=== PATIENT | female | born 1940 | race Caucasian/White ===

== ENCOUNTER 2022-04-25 10:00 | Outpatient (CLI) | payer MEDICARE, SELFPAY ==
--- NOTE | 2022-04-25 13:29 | W.ANESCHARGE ---
Anesthesia Charges Start Date/Time Anesthesia Start Date: 04/25/22 Anesthesia Start Time: 11:07 Stop Date/Time Anesthesia Stop Date: 04/25/22 Anesthesia Stop Time: 12:24 Summary Emergency: No Extremes of Age: Over 72-CPT 38534
--- NOTE | 2022-04-25 14:24 | W.ANESCHARGE ---
Anesthesia Charges Start Date/Time Anesthesia Start Date: 04/25/22 Anesthesia Start Time: 11:07 Stop Date/Time Anesthesia Stop Date: 04/25/22 Anesthesia Stop Time: 12:24 Summary Emergency: No Extremes of Age: Over 72-CPT 99014
== END 2022-04-25 10:01 | disposition home or self-care (01) ==
LOC: OP CLINIC 10:03
PROVIDERS: PCP Family Medicine; Visit Provider Surgery
DX: K92.2 Gastrointestinal hemorrhage, unspecified (principal); K31.7 Polyp of stomach and duodenum; K63.5 Polyp of colon; R19.5 Other fecal abnormalities; K57.30 Diverticulosis of large intestine without perforation or abscess without bleeding
CPT/HCPCS: 43239; 45381; 45385; 813; 88305; 99100; J2704; J3490

== ENCOUNTER 2022-05-24 21:00 | Outpatient (CLI) | payer MEDICARE, SELFPAY | END 2022-05-24 21:01 | disposition home or self-care (01) | LOC: SLEEP 11-14 09:55 | PROVIDERS: PCP Family Medicine; Visit Provider Nurse Practitioner | DX: G47.33 Obstructive sleep apnea (adult) (pediatric) (principal) | CPT/HCPCS: 95810 ==

== ENCOUNTER 2023-02-19 10:45 | Outpatient (RCR) | payer MEDICARE, SELFPAY | END 2023-05-29 15:32 | disposition home or self-care (01) | PROVIDERS: PCP Family Medicine; Visit Provider Psychiatry & Neurology Neurology | DX: M54.2 Cervicalgia (principal); G44.209 Tension-type headache, unspecified, not intractable; Z51.89 Encounter for other specified aftercare | CPT/HCPCS: 97035; 97110; 97140; 97161 ==

== ENCOUNTER 2023-07-02 09:30 | Emergency (ER) | payer MEDICARE, SELFPAY ==
[2023-07-02 09:35] VITALS: BP 164/75; PULSE 75; RESP 18; TEMP 36.3; O2SAT 97; BMI 30.7
--- NOTE | 2023-07-02 09:44 | ED.GENADULT ---
HPI - General Adult General Time Seen by Provider: 09:44 Date Seen: 07/02/23 Chief complaint: Extremity Pain/Injury, Lower Stated complaint: left foot swollen Time Seen by Provider: 07/02/23 09:31 Source: patient, RN notes reviewed and old records reviewed Mode of arrival: wheelchair Limitations: no limitations History of Present Illness HPI narrative: This 83-year-old female is coming in with left foot pain and swelling. She points to the distal medial foot. She denies any trauma but did have a recent pedicure. She awoke with symptoms yesterday, it hurts to walk on, it there is pain baseline. No fevers, no systemic symptoms of illness. She has had gout a few times before, looking in our records she was last seen in February with probable gout. I did briefly see suggestion of renal insufficiency in that note. Patient does not have any further hydrocodone, has used that in the past successfully for pain management. She does have underlying diabetes. Related Data Home Medications Medication Instructions Recorded Confirmed amlodipine 2.5 mg tablet 2.5 mg PO DAILY 03/20/23 07/02/23 carvedilol 12.5 mg tablet 12.5 mg PO BID 03/20/23 07/02/23 chlorthalidone 25 mg tablet 25 mg PO DAILY 03/20/23 07/02/23 cyanocobalamin (vitamin B-12) 1,000 mcg PO DAILY 03/20/23 07/02/23 1,000 mcg tablet ferrous sulfate 325 mg (65 mg 325 mg PO BID 03/20/23 07/02/23 iron) tablet (FeroSul) losartan 100 mg tablet 100 mg PO DAILY 03/20/23 07/02/23 metformin 1,000 mg tablet 1,000 mg PO BID 03/20/23 07/02/23 omeprazole 20 mg capsule,delayed 20 mg PO BID 03/20/23 07/02/23 release rosuvastatin 10 mg tablet 10 mg PO QPM 03/20/23 07/02/23 venlafaxine 150 mg 50 mg PO DAILY 03/20/23 07/02/23 capsule,extended release 24 hr venlafaxine 75 mg capsule,extended 50 mg PO DAILY 03/20/23 07/02/23 release 24 hr Previous Rx's Medication Instructions Recorded prednisone 20 mg tablet 20 mg PO BID #10 tabs 03/20/23 hydrocodone 5 mg-acetaminophen 325 1 tab PO Q6H PRN pain #10 tabs 07/02/23 mg tablet prednisone 20 mg tablet 20 mg PO BID #10 tabs 07/02/23 Allergies Allergy/AdvReac Type Severity Reaction Status Date / Time morphine Allergy Rash Verified 07/02/23 09:39 silicone Allergy Rash Verified 07/02/23 09:39 topiramate [From Topamax] Allergy Hallucinati Verified 07/02/23 09:39 ng Review of Systems Narrative: As per HPI. PFSH PFSH Social History Smoking Status: Unknown if ever smoked How often do you have a drink containing alcohol: monthly or less AUDIT-C Alcohol total score: 1 Non-prescribed substance use: denies use service: No Exam Const: Vital Signs, click to edit/add: Vital Signs - 24 hr 07/02/23 09:35 Temperature 97.4 F L Pulse Rate [Right Pulse Oximeter] 75 Respiratory Rate 18 Blood Pressure [Ri ght Upper Arm] 164/75 H Pulse Oximetry 97 Oxygen Delivery Me thod Room Air Very pleasant 83-year-old female that is alert interactive no apparent distress. Speech normal. CV regular rate and rhythm, no murmur. Lungs clear anteriorly. Her left foot is mildly pink, definitely warm, has pain emanating definitively from the 1st metatarsal-phalangeal joint. She is painful with movement of this joint. There is some pain that does extend out into the soft tissues but the 1st metatarsophalangeal joint seems to be where this pain is emanating from on my examination. I see no open wounds, there are no nail fold changes that would suggest any infection. Documenting provider has reviewed patient's vital signs: yes Course Course Hospital Course: Have reviewed with patient that this is a classic joint for gout. 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 She needs to watch for changing symptoms or symptoms that are not resolving with this treatment, would suggest that gout might not be the correct diagnosis if this is the case. She will watch for worsening swelling, pain or development of fever. I really do feel that this is classic gout however. Vital Signs Vital signs: Initial Vital Signs Temperature 97.4 F L 07/02/23 09:35 Temperature Source Temporal Artery Scan 07/02/23 09:35 Pulse Rate 75 07/02/23 09:35 Respiratory Rate 18 07/02/23 09:35 Blood Pressure 164/75 H 07/02/23 09:35 Blood Pressure Mean 104 07/02/23 09:35 Blood Pressure Position Sitting 07/02/23 09:35 Pulse Oximetry 97 07/02/23 09:35 Oxygen Delivery Method Room Air 07/02/23 09:35 Vital Signs Temperature 97.4 F L 07/02/23 09:35 Pulse Rate 75 07/02/23 09:35 Respiratory Rate 18 07/02/23 09:35 Blood Pressure 164/75 H 07/02/23 09:35 Pulse Oximetry 97 07/02/23 09:35 Oxygen Delivery Method Room Air 07/02/23 09:35 Temperature 97.4 F L 07/02/23 09:35 Pulse Rate 75 07/02/23 09:35 Respiratory Rate 18 07/02/23 09:35 Blood Pressure 164/75 H 07/02/23 09:35 Pulse Oximetry 97 07/02/23 09:35 Oxygen Delivery Method Room Air 07/02/23 09:35 Discharge Plan Discharge Clinical Impression: Gout attack Patient Disposition: Home, Self-Care Condition: Stable Instructions: Low Purine Diet (ED), Gout (ED) Additional Instructions: Start prednisone and take as prescribed, take with food. Know that this will temporarily increase your sugars. Ice, elevate this foot as much as able to next few days to help decrease pain and swelling. Can use pain medication as prescribed, know that this is a narcotic. May need to use Miralax and/or senna while on it to prevent narcotic associated constipation. Need to schedule follow up in clinic with primary provider to review gout and consider getting on preventative medication. Review hand out for dietary recommendations. Return to ED for further evaluation if symptoms are worsening despite starting prednisone or if you develop a fever. Activity Level: Activity as Tolerated Discharge Diet: Diabetic Prescriptions: New prednisone 20 mg tablet 20 mg PO BID Qty: 10 0RF hydrocodone-acetaminophen 5-325 mg tablet 1 tab PO Q6H PRN (Reason: pain) Qty: 10 0RF No Action venlafaxine 75 mg capsule,extended release 24hr 50 mg PO DAILY carvedilol 12.5 mg tablet 12.5 mg PO BID venlafaxine 150 mg capsule,extended release 24hr 50 mg PO DAILY cyanocobalamin (vitamin B-12) 1,000 mcg tablet 1,000 mcg PO DAILY amlodipine 2.5 mg tablet 2.5 mg PO DAILY chlorthalidone 25 mg tablet 25 mg PO DAILY ferrous sulfate [FeroSul] 325 mg (65 mg iron) tablet 325 mg PO BID metformin 1,000 mg tablet 1,000 mg PO BID omeprazole 20 mg capsule,delayed release(DR/EC) 20 mg PO BID losartan 100 mg tablet 100 mg PO DAILY rosuvastatin 10 mg tablet 10 mg PO QPM prednisone 20 mg tablet 20 mg PO BID Qty: 10 0RF Follow Up/Referrals: Eloise Reeves DO [Primary Care Provider] - Stand Alone Forms: [facility] Info Instructions
== END 2023-07-02 10:10 | disposition home or self-care (01) ==
PROVIDERS: Emergency Provider Family Medicine; PCP Family Medicine
DX: M10.9 Gout, unspecified (principal)
CPT/HCPCS: 99282; 99283; 99284

== ENCOUNTER 2023-09-05 06:23 | Emergency (ER) | payer MEDICARE, SELFPAY ==
[2023-09-05 06:45] VITALS: BP 172/87; PULSE 88; RESP 20; TEMP 36.4; O2SAT 96; BMI 32.7
--- NOTE | 2023-09-05 06:45 | CRLHL7_ITS ---
For Patients: As a result of the Century Cures Act, medical imaging exams and procedure reports are released immediately into your electronic medical record. You may view this report before your referring provider. If you have questions, please contact your health care provider. INDICATION: Leg swelling. TECHNIQUE: Ultrasound venous duplex lower right extremity. Compression venous exam was performed using nicole-scale, color Doppler, and spectral Doppler analysis. COMPARISON: None. FINDINGS: Deep veins: Sonographic imaging demonstrates the right common femoral, deep femoral, superficial femoral, popliteal, posterior tibial, peroneal contralateral left common femoral veins to be fully compressible with normal color Doppler blood flow. Superficial veins: Greater saphenous vein is fully compressible. No popliteal cyst. IMPRESSION: No evidence of DVT. Dictated by Guillermo Murray MD @ 09/05/2023 7:29:24 AM (Electronically Signed)
--- NOTE | 2023-09-05 06:45 | CRLHL7_ITS ---
For Patients: As a result of the Century Cures Act, medical imaging exams and procedure reports are released immediately into your electronic medical record. You may view this report before your referring provider. If you have questions, please contact your health care provider. Indication: Left-sided chest and back pain Technique: Chest 2 views Comparison: Chest x-ray 03/22/2022 Findings/Impression: Cardiovascular and mediastinum: Upper normal heart size with aortic tortuosity. Lungs and pleural spaces: No pleural effusion or pneumothorax. Scattered basilar discoid atelectasis. Bones and soft tissues: Status post left breast and axillary surgery. Calcification near the bilateral humeri, likely calcific tendinitis of the rotator cuffs. Dictated by Amish Shirley MD @ 09/05/2023 8:00:45 AM (Electronically Signed)
--- NOTE | 2023-09-05 06:48 | ED_ITS ---
HPI - General Adult General Date Seen: 09/05/23 <Gerson Ventura - Last Filed: 09/06/23 11:05> Chief complaint: Extremity Pain/Injury, Lower <Gerson Ventura - Last Filed: 09/06/23 11:05> Stated complaint: swollen ankle <Gerson Ventura - Last Filed: 09/06/23 11:05> Time Seen by Provider: 09/05/23 06:23 <Gerson Ventura DO - Last Filed: 09/06/23 11:05> Source: patient <Gerson Ventura - Last Filed: 09/06/23 11:05> Mode of arrival: ambulatory <Gerson Ventura - Last Filed: 09/06/23 11:05> Limitations: no limitations <Gerson Ventura Last Filed: 09/06/23 11:05> History of Present Illness HPI narrative: Patient is an 83-year-old female history of hypertension, diabetes presenting to the emergency department for left lateral back pain or right lower extremity swelling. Patient states these are right lower extremity swelling on and off for about 8 months now. She has been told she is fasciitis of the throat causing her leg swelling. She states she has never had an ultrasound on it before. The swelling comes and goes. She just completed an 18 hour car trip and notice that swelling was worse when she was done. She also states that before trip started she has had left-sided lateral back pain. She describes this chest pain above the tenderness is in her back was no pain in her chest she states. She has had this pain on and off for several months also. She states it was worse with movement car trip completed today. Denies shortness of breath, fevers, chills, weakness, numbness could Binta constipation, abdominal pain, headache, vision changes. <Gerson Ventura DO - Last Filed: 09/06/23 11:05> Related Data Home medications: Home Medications Medication Instructions Recorded Confirmed amlodipine 2.5 mg tablet 2.5 mg PO DAILY 03/20/23 09/05/23 carvedilol 12.5 mg tablet 12.5 mg PO BID 03/20/23 09/05/23 chlorthalidone 25 mg tablet 25 mg PO DAILY 03/20/23 09/05/23 cyanocobalamin (vitamin B-12) 1,000 mcg PO DAILY 03/20/23 09/05/23 1,000 mcg tablet ferrous sulfate 325 mg (65 mg 325 mg PO BID 03/20/23 09/05/23 iron) tablet (FeroSul) losartan 100 mg tablet 100 mg PO DAILY 03/20/23 09/05/23 metformin 1,000 mg tablet 1,000 mg PO BID 03/20/23 09/05/23 omeprazole 20 mg capsule,delayed 20 mg PO BID 03/20/23 09/05/23 release rosuvastatin 10 mg tablet 10 mg PO QPM 03/20/23 09/05/23 venlafaxine 150 mg 50 mg PO DAILY 03/20/23 09/05/23 capsule,extended release 24 hr venlafaxine 75 mg capsule,extended 50 mg PO DAILY 03/20/23 09/05/23 release 24 hr Previous Rx's Medication Instructions Recorded hydrocodone 5 mg-acetaminophen 325 1 tab PO Q6H PRN pain #10 tabs 07/02/23 mg tablet benzonatate 100 mg capsule 100 mg PO BID-TID PRN cough #20 08/17/23 caps <Gerson Ventura DO - Last Filed: 09/06/23 11:05> Allergies/adverse reactions: Allergies Allergy/AdvReac Type Severity Reaction Status Date / Time latex Allergy Verified 09/05/23 08:50 morphine Allergy Rash Verified 09/05/23 08:50 silicone Allergy Rash Verified 09/05/23 08:50 topiramate [From Topamax] Allergy Hallucinati Verified 09/05/23 08:50 ng surgical tape Allergy Uncoded 09/05/23 08:49 <Gerson Ventura DO - Last Filed: 09/06/23 11:05> Review of Systems Status of ROS: Reports: 10 or more systems reviewed and unremarkable except as noted in History and below <Gerson Ventura DO - Last Filed: 09/06/23 11:05> [facility] Social History: Social History Smoking Status: Never smoker Do you use any of these nicotine containing products: None How often do you have a drink containing alcohol: monthly or less AUDIT-C Alcohol total score: 1 Non-prescribed substance use: denies use service: No <Gerson Ventura DO - Last Filed: 09/06/23 11:05> Exam Narrative: Exam Narrative: Const: Well-nourished, Well-developed, in mild distress Eyes: PERRL, no conjunctival injection, and symmetrical lids HENT: Atraumatic external nose and ears. Moist mucous membranes. Neck: Symmetric, trachea midline, No thyromegaly. CVS: RRR, No murmurs or gallops. Peripheral pulses 2+ and equal in all extr emities RESP: Unlabored respiratory effort. Clear to auscultation bilaterally. GI: Nontender/Nondistended, No rebound or guarding. MSK:Extremities w/o deformity, Normal Active ROM, swelling and tenderness noted diffusely to right ankle. No calf swelling or tenderness. Tenderness noted to the left-sided back around distal portion of the rib angle around rib 7 or 8 Skin: Warm, Dry. No rashes or lesions. Neuro: Normal Muscle tone, No focal neurological deficits. Psych: Awake, Alert, & Oriented x3. Appropriate mood and affect. <Gerson Ventura DO - Last Filed: 09/06/23 11:05> Const: Vital Signs, click to edit/add: Vital Signs - 24 hr 09/05/23 06:45 09/05/23 09:28 Temperature 97.6 F 97.4 F L Pulse Rate [Pulse Oximeter] 88 80 Respiratory Rate 20 16 Blood Pressure [Le ft Forearm] 172/87 H 159/71 H Pulse Oximetry 96 92 Oxygen Delivery Me thod Room Air Room Air <Gerson Ventura DO - Last Filed: 09/06/23 11:05> Vital Signs, click to edit/add: Vital Signs - 24 hr 09/05/23 06:45 09/05/23 09:28 Temperature 97.6 F 97.4 F L Pulse Rate [Pulse Oximeter] 88 80 Respiratory Rate 20 16 Blood Pressure [Le ft Forearm] 172/87 H 159/71 H Pulse Oximetry 96 92 Oxygen Delivery Me thod Room Air Room Air <John Bautista MD - Last Filed: 09/05/23 09:30> Course Vital Signs Vital signs: Initial Vital Signs Temperature 97.6 F 09/05/23 06:45 Temperature Source Temporal Artery Scan 09/05/23 06:45 Pulse Rate 88 09/05/23 06:45 Respiratory Rate 20 09/05/23 06:45 Blood Pressure 172/87 H 09/05/23 06:45 Blood Pressure Mean 115 H 09/05/23 06:45 Pulse Oximetry 96 09/05/23 06:45 Oxygen Delivery Method Room Air 09/05/23 06:45 Vital Signs Temperature 97.6 F 09/05/23 06:45 Pulse Rate 88 09/05/23 06:45 Respiratory Rate 20 09/05/23 06:45 Blood Pressure 172/87 H 09/05/23 06:45 Pulse Oximetry 96 09/05/23 06:45 Oxygen Delivery Method Room Air 09/05/23 06:45 Temperature 97.4 F L 09/05/23 09:28 Pulse Rate 80 09/05/23 09:30 Respiratory Rate 16 09/05/23 09:30 Blood Pressure 139/77 09/05/23 09:30 Pulse Oximetry 92 09/05/23 09:30 Oxygen Delivery Method Room Air 09/05/23 09:30 <Gerson Ventura, DO - Last Filed: 09/06/23 11:05> Initial Vital Signs Temperature 97.6 F 09/05/23 06:45 Temperature Source Temporal Artery Scan 09/05/23 06:45 Pulse Rate 88 09/05/23 06:45 Respiratory Rate 20 09/05/23 06:45 Blood Pressure 172/87 H 09/05/23 06:45 Blood Pressure Mean 115 H 09/05/23 06:45 Pulse Oximetry 96 09/05/23 06:45 Oxygen Delivery Method Room Air 09/05/23 06:45 Vital Signs Temperature 97.6 F 09/05/23 06:45 Pulse Rate 88 09/05/23 06:45 Respiratory Rate 20 09/05/23 06:45 Blood Pressure 172/87 H 09/05/23 06:45 Pulse Oximetry 96 09/05/23 06:45 Oxygen Delivery Method Room Air 09/05/23 06:45 Temperature 97.4 F L 09/05/23 09:28 Pulse Rate 80 09/05/23 09:30 Respiratory Rate 16 09/05/23 09:30 Blood Pressure 139/77 09/05/23 09:30 Pulse Oximetry 92 09/05/23 09:30 Oxygen Delivery Method Room Air 09/05/23 09:30 <John Bautista MD - Last Filed: 09/05/23 09:30> Medications Administered Medications: Discontinued Medications Generic Name Dose Route Start Last Admin Trade Name Freq PRN Reason Stop Dose Admin Ketorolac Tromethamine 15 mg 09/05/23 06:44 09/05/23 07:03 Ketorolac 15 Mg/Ml Inj IVP 09/05/23 06:45 15 mg ONCE ONE Administration Potassium Chloride 40 meq 09/05/23 07:41 09/05/23 08:07 Potassium Chloride 10 Meq Capsule Er PO 09/05/23 07:42 40 meq ONCE ONE Administration <Gerson Ventura DO - Last Filed: 09/06/23 11:05> Discontinued Medications Generic Name Dose Route Start Last Admin Trade Name Freq PRN Reason Stop Dose Admin Ketorolac Tromethamine 15 mg 09/05/23 06:44 09/05/23 07:03 Ketorolac 15 Mg/Ml Inj IVP 09/05/23 06:45 15 mg ONCE ONE Administration Potassium Chloride 40 meq 09/05/23 07:41 09/05/23 08:07 Potassium Chloride 10 Meq Capsule Er PO 09/05/23 07:42 40 meq ONCE ONE Administration <John Bautista MD - Last Filed: 09/05/23 09:30> Medical Decision Making MDM Narrative Medical decision making narrative: Patient is an 83-year-old female presenting for right ankle pain and left- sided back pain. She initially described as chest pain so we did do a cardiac workup but are on examination it appears to be more back pain. She is tender to palpation when I pressed on her back she states that reproduce the pain exactly. This makes me think is most likely musculoskeletal in nature. We will do a further workup due to her recent car drive. We do a right lower extremity ultrasound and a D-dimer checked for signs of a blood clot. We will EKG available troponin, CBC, CMP all ordered. EKG showed no concerning abnormalities. Patient does states pain is feeling better. CBC returned showing no concerning abnormalities. CMP returns for a potassium 2.9. This was replenished. Her troponin was 0.01. D-dimer returned at 1.89. CTA of the chest was ordered. Ultrasound of the right lower extremity showed no signs of DVT. Patient signed out to Dr. Bautista at the end of my shift pending the CTA read. <Gerson Ventura DO - Last Filed: 09/06/23 11:05> Patient is an 83-year-old female presenting for right ankle pain and left- sided back pain. She initially described as chest pain so we did do a cardiac workup but are on examination it appears to be more back pain. She is tender to palpation when I pressed on her back she states that reproduce the pain exactly. This makes me think is most likely musculoskeletal in nature. We will do a further workup due to her recent car drive. We do a right lower extremity ultrasound and a D-dimer checked for signs of a blood clot. We will EKG available troponin, CBC, CMP all ordered. EKG showed no concerning abnormalities. Patient does states pain is feeling better. CBC returned showing no concerning abnormalities. CMP returns for a potassium 2.9. This was replenished. Her troponin was 0.01. D-dimer returned at 1.89. CTA of the chest was ordered. Ultrasound of the right lower extremity showed no signs of DVT. Patient signed out to Dr. Bautista at the end of my shift pending the CTA read. Addendum 9:29 a.m. the patient has a negative CT scan of the chest, her troponin is negative, EKG looks reassuring. I think anti-inflammatory at this point such as Advil would be appropriate for chest wall discomfort. Dr. Hunter cohn felt that this was chest wall pain. Lab studies look reassuring. Patient will be able to go home at this point. She did have a low potassium was given potassium replacement. Would eat high potassium containing diet. Get this rechecked in a few days. <John Bautista MD - Last Filed: 09/05/23 09:30> Lab Data Labs: Lab Results 09/05/23 09/05/23 Range/Units 06:44 07:00 WBC 8.54 (4.50-11.00) K/uL RBC 4.13 (4.00-5.20) m/uL Hgb 10.7 L (12.0-16.0) gm/dL Hct 33.8 (33.0-51.0) % MCV 82 (80-100) fL MCH 26 (26-34) pg MCHC 32 (32-36) gm/dL RDW Coeff of Lelia 15.3 (11.5-15.5) % Plt Count 369 (140-440) K/uL Neut % (Auto) 73.0 H (42.0-72.0) % Lymph % (Auto) 15.0 L (20-44) % [place] % (Auto) 8.1 (0.0-11.0) % Eos % (Auto) 2.6 (0.0-7.0) % Baso % (Auto) 0.6 (0.0-3.0) % Neut # (Auto) 6.20 (1.7-7.0) K/uL Lymph # (Auto) 1.30 (0.90-2.90) K/uL [place] # (Auto) 0.70 (0.00-0.90) K/UL Eos # (Auto) 0.22 (0.00-0.50) K/uL Baso # (Auto) 0.05 (0.00-0.30) K/uL Abs Immat Gran (auto) 0.06 (0.00-0.30) K/uL Imm/Tot Granulo (auto) 0.7 % D-Dimer Quant (PE/DVT) 1.89 H (0.00-0.50) ug/ml Sodium 140 (135-149) mmol/L Potassium 2.9 L* (3.6-5.1) mmol/L Chloride 100 (96-114) mmol/L Carbon Dioxide 29 (20-32) mmol/L Anion Gap 11 (7-15) mEq/L BUN 34 H (7-30) mg/dL Creatinine 1.1 (0.5-1.5) mg/dL Estimated Creat Clear 44.23 Estimated GFR 50 ml/min Glucose 180 H (60-115) mg/dL Calcium 9.5 (8.4-10.6) mg/dL Total Bilirubin 0.4 (0.1-1.5) mg/dL AST 34 (12-35) U/L ALT 19 (4-35) U/L Alkaline Phosphatase 81 (40-150) U/L Total Protein 8.1 (6.0-8.3) g/dL Albumin 4.5 (3.3-5.0) g/dL POC Troponin I 0.01 (0.01-0.04) ng/ml <Gerson P Lorenzo, DO - Last Filed: 09/06/23 11:05> Lab Results 09/05/23 09/05/23 Range/Units 06:44 07:00 WBC 8.54 (4.50-11.00) K/uL RBC 4.13 (4.00-5.20) m/uL Hgb 10.7 L (12.0-16.0) gm/dL Hct 33.8 (33.0-51.0) % MCV 82 (80-100) fL MCH 26 (26-34) pg MCHC 32 (32-36) gm/dL RDW Coeff of Lelia 15.3 (11.5-15.5) % Plt Count 369 (140-440) K/uL Neut % (Auto) 73.0 H (42.0-72.0) % Lymph % (Auto) 15.0 L (20-44) % [place] % (Auto) 8.1 (0.0-11.0) % Eos % (Auto) 2.6 (0.0-7.0) % Baso % (Auto) 0.6 (0.0-3.0) % Neut # (Auto) 6.20 (1.7-7.0) K/uL Lymph # (Auto) 1.30 (0.90-2.90) K/uL [place] # (Auto) 0.70 (0.00-0.90) K/UL Eos # (Auto) 0.22 (0.00-0.50) K/uL Baso # (Auto) 0.05 (0.00-0.30) K/uL Abs Immat Gran (auto) 0.06 (0.00-0.30) K/uL Imm/Tot Granulo (auto) 0.7 % D-Dimer Quant (PE/DVT) 1.89 H (0.00-0.50) ug/ml Sodium 140 (135-149) mmol/L Potassium 2.9 L* (3.6-5.1) mmol/L Chloride 100 (96-114) mmol/L Carbon Dioxide 29 (20-32) mmol/L Anion Gap 11 (7-15) mEq/L BUN 34 H (7-30) mg/dL Creatinine 1.1 (0.5-1.5) mg/dL Estimated Creat Clear 44.23 Estimated GFR 50 ml/min Glucose 180 H (60-115) mg/dL Calcium 9.5 (8.4-10.6) mg/dL Total Bilirubin 0.4 (0.1-1.5) mg/dL AST 34 (12-35) U/L ALT 19 (4-35) U/L Alkaline Phosphatase 81 (40-150) U/L Total Protein 8.1 (6.0-8.3) g/dL Albumin 4.5 (3.3-5.0) g/dL POC Troponin I 0.01 (0.01-0.04) ng/ml <John Bautista MD - Last Filed: 09/05/23 09:30> Imaging Data Right lower extremity ultrasound: Radiologist's impression: Bones: Alignment is normal. No fractures or bone lesions. Joint spaces: Unremarkable. Soft tissues: Unremarkable. Dictated by Amish Shirley MD @ 09/05/2023 7:39:27 AM <Gerson Ventura DO - Last Filed: 09/06/23 11:05> ECG Data Attestation: I personally reviewed and interpreted this ECG as follows: <Gerson Ventura DO - Last Filed: 09/06/23 11:05> Prior ECG tracings: not available for review <Gerson Ventura DO - Last Filed: 09/06/23 11:05> Interpretation: Normal sinus rhythm with a rate of 91 beats per minute, right bundle branch block, normal intervals, normal axis, no ST or T-wave abnormalities <Gerson Ventura DO - Last Filed: 09/06/23 11:05> Discharge Plan Discharge Clinical Impression: Acute chest wall pain, Acute hypokalemia <Gerson Ventura DO - Last Filed: 09/06/23 11:05> Patient Disposition: Home w/ Parent or Adult <Gerson Ventura DO - Last Filed: 09/06/23 11:05> Condition: Improved <Gerson Ventura DO - Last Filed: 09/06/23 11:05> Additional Instructions: Continue home medications, may use some ibuprofen as needed, light activity, follow up with regular doctor in 2-3 days and recheck potassium, return to ED sooner problems or concerns. Eat potassium containing foods <Gerson Ventura DO - Last Filed: 09/06/23 11:05> Activity Level: Light activity <Gerson Ventura DO - Last Filed: 09/06/23 11:05> Light activity <John Bautista MD - Last Filed: 09/05/23 09:30> Discharge Diet: Regular <Gerson Ventura DO - Last Filed: 09/06/23 11:05> Regular <John Bautista MD - Last Filed: 09/05/23 09:30> Diet Detail: High potassium foods such as green leafy vegetables, orange juice, bananas. <Gerson Ventura DO - Last Filed: 09/06/23 11:05> High potassium foods such as green leafy vegetables, orange juice, bananas. <John Bautista MD - Last Filed: 09/05/23 09:30> Prescriptions: No Action benzonatate 100 mg capsule 100 mg PO BID-TID PRN (Reason: cough) Qty: 20 0RF hydrocodone-acetaminophen 5-325 mg tablet 1 tab PO Q6H PRN (Reason: pain) Qty: 10 0RF venlafaxine 75 mg capsule,extended release 24hr 50 mg PO DAILY carvedilol 12.5 mg tablet 12.5 mg PO BID venlafaxine 150 mg capsule,extended release 24hr 50 mg PO DAILY cyanocobalamin (vitamin B-12) 1,000 mcg tablet 1,000 mcg PO DAILY amlodipine 2.5 mg tablet 2.5 mg PO DAILY chlorthalidone 25 mg tablet 25 mg PO DAILY ferrous sulfate [FeroSul] 325 mg (65 mg iron) tablet 325 mg PO BID metformin 1,000 mg tablet 1,000 mg PO BID omeprazole 20 mg capsule,delayed release(DR/EC) 20 mg PO BID losartan 100 mg tablet 100 mg PO DAILY rosuvastatin 10 mg tablet 10 mg PO QPM <Gerson Ventura DO - Last Filed: 09/06/23 11:05> Follow Up/Referrals: Eloise Reeves DO [Primary Care Provider] - <Gerson Ventura DO - Last Filed: 09/06/23 11:05> Stand Alone Forms: [facility] Info Instructions <Gerson Ventura DO - Last Filed: 09/06/23 11:05>
[2023-09-05] MEDS: KETOROLAC 15 MG/ML inj IVP (07:03)
[2023-09-05 07:16] LABS: Troponin, Point-of-Care* 0.01 ng/ml (0.01-0.04)
[2023-09-05 07:19] LABS: Basophils Absolute Auto 0.05 K/uL (0.00-0.30); Basophils Percent Auto 0.6 % (0.0-3.0); Eosinophils Absolute Auto 0.22 K/uL (0.00-0.50); Eosinophils Percent Auto 2.6 % (0.0-7.0); Hematocrit 33.8 % (33.0-51.0); Hemoglobin* 10.7 gm/dL (12.0-16.0); Immature Granulocytes Abs Auto 0.06 K/uL (0.00-0.30); Immature Granulocytes Pct Auto 0.7 %; Mean Corpuscular HGB Conc 32 gm/dL (32-36); Mean Corpuscular Hemoglobin 26 pg (26-34); Mean Corpuscular Volume 82 fL (80-100); Monocytes Percent Auto 8.1 % (0.0-11.0); Platelet Count* 369 K/uL (140-440); RDW Coefficient of Variation % 15.3 % (11.5-15.5); Red Blood Count 4.13 m/uL (4.00-5.20); White Blood Count* 8.54 K/uL (4.50-11.00)
[2023-09-05 07:27] LABS: Albumin* 4.5 g/dL (3.3-5.0); Chloride* 100 mmol/L (96-114); Sodium* 140 mmol/L (135-149)
[2023-09-05 07:30] LABS: Alkaline Phosphatase* 81 U/L (40-150); Anion Gap 11 mEq/L (7-15); Aspartate Amino Transferase* 34 U/L (12-35); Bilirubin Total* 0.4 mg/dL (0.1-1.5); Carbon Dioxide* 29 mmol/L (20-32); Creatinine* 1.1 mg/dL (0.5-1.5); Est. Creatinine Clearance* 44.23; Estimated Glomerular Filt Rate 50 ml/min; Total Protein* 8.1 g/dL (6.0-8.3)
[2023-09-05 07:31] LABS: Alanine Aminotransferase* 19 U/L (4-35); Blood Urea Nitrogen* 34 mg/dL (7-30); Calcium* 9.5 mg/dL (8.4-10.6); Glucose* 180 mg/dL (60-115)
[2023-09-05 07:32] LABS: D Dimer Quantitative* 1.89 ug/ml (0.00-0.50)
[2023-09-05 07:34] LABS: Slide Review Reflex No
[2023-09-05 07:40] LABS: Potassium* 2.9 mmol/L (3.6-5.1)
--- NOTE | 2023-09-05 07:41 | ED.NURSE ---
K+ 2.9, dr mitchell aware.
--- NOTE | 2023-09-05 07:49 | CRLHL7_ITS ---
For Patients: As a result of the Century Cures Act, medical imaging exams and procedure reports are released immediately into your electronic medical record. You may view this report before your referring provider. If you have questions, please contact your health care provider. INDICATION: Left lateral chest/back pain. COMPARISON: Chest radiograph on September 05, 2023 technique. No thyroid nodules. Cardiomegaly. No pericardial effusion. There are no pathologically enlarged mediastinal or hilar lymph nodes. Minimal coronary artery calcifications. Aortic annular calcifications. If minimal calcific atherosclerosis of the aortic arch. No thoracic aortic aneurysm. The pulmonary artery is normal in caliber. An there is no pulmonary embolism. Her parents wish pulmonary nodules or masses. Bibasilar atelectasis,. No pleural effusion or pneumothorax. No acute fracture malalignment. No suspicious osseous lesions. The visualized upper abdomen is without acute process. Small to moderate size hiatal hernia. There are few calcified granulomas in the spleen and liver. TECHNIQUE : CTA chest, PE protocol, Isovue-370, 95 mL IV findings. FINDINGS : No thyroid nodules. No thoracic lymphadenopathy. Mild cardiomegaly. Minimal coronary artery and aortic annular calcifications. Minimal calcific atherosclerosis of the aortic arch. No thoracic aortic aneurysm. The pulmonary artery is normal in caliber. There is no pulmonary embolism. No focal airspace consolidation. No suspicious pulmonary nodules or masses. Bibasilar atelectasis. No pleural effusion or pneumothorax. No acute fracture malalignment. No suspicious osseous lesions. The visualized upper abdomen is without acute process. Small to moderate size hiatal hernia. There are few calcified granulomas in the spleen and liver. IMPRESSION: 1. No pulmonary embolism. 2. No focal airspace consolidation, pleural effusion, or pneumothorax. 3. No thoracic lymphadenopathy. Please note that all CT scans at this facility use dose modulation, iterative reconstruction, and/or weight-based dosing when appropriate to reduce radiation dose to as low as reasonably achievable. Dictated by Georges Maurer MD @ 09/05/2023 9:14:27 AM (Electronically Signed)
[2023-09-05] MEDS: POTASSIUM CHLORIDE 10 MEQ CAPSULE ER 40 MEQ PO (08:07)
[2023-09-05 08:55] VITALS: BP 138/70; PULSE 82; RESP 16; O2SAT 94
[2023-09-05 09:28] VITALS: BP 159/71; PULSE 80; RESP 16; TEMP 36.3; O2SAT 92
[2023-09-05 09:30] VITALS: BP 139/77; PULSE 80; RESP 16; O2SAT 92
== END 2023-09-05 09:48 | disposition home or self-care (01) ==
PROVIDERS: Emergency Provider Student in an Organized Health Care Education/Training Program; PCP Family Medicine
DX: R07.89 Other chest pain (principal); E87.6 Hypokalemia
CPT/HCPCS: 36415; 71046; 71275; 80053; 84484; 85025; 85379; 93005; 93971; 96374; 99283; 99284; 99285; A9270; J1885; Q9967

== ENCOUNTER 2023-11-04 21:34 | Outpatient (CLI) | payer MEDICARE, SELFPAY | END 2023-11-04 21:35 | disposition home or self-care (01) | LOC: AMB 11-05 11:27 | PROVIDERS: PCP Family Medicine; Visit Provider Emergency Medicine Emergency Medical Services | DX: R55 Syncope and collapse (principal); R41.82 Altered mental status, unspecified | CPT/HCPCS: A0425; A0427 ==

== ENCOUNTER 2023-12-09 22:44 | Outpatient (CLI) | payer MEDICARE, SELFPAY ==
--- OUTSIDE RECORDS SUMMARY | 2023-12-11 18:31 | XMS_ITS | Referral Summary ---
Author Name Unknown Organization [facility][Note 3] Address [address] [place] [address] Phone Care Team Providers Care Nitro Worker Name Role Phone Eloise Reeves Sushil BUSBY Primary Care Provider Source Comments [employer] is fully rolled out on tritrue. Last update 04/02/09.[facility][Note 3] Encounters Date Type Department Care Team Description 11/27/2023 1:00 PM OIL EXPLORATION ENGINEER [facility] [address] [address] Leidy Velazquez, PAElodiaC Mild traumatic brain injury, with loss of consciousness of 30 minutes or less, initial encounter ([facility]) (Primary Dx); Reversed sleep wake cycle; Lack of appetite Discharge Disposition: Discharged to home or self care (routine discharge) 11/04/2023 10:39 PM OIL EXPLORATION ENGINEER - 11/16/2023 9:19 AM OIL EXPLORATION ENGINEER Hospital Encounter [facility] Surgery/Trauma/Kimmie ro [address] [place] [address] Devin Dougherty MD Petrun, Branden, MD [place], [...] Comments Blood Pressure 108/71 11/27/2023 12:54 PM OIL EXPLORATION ENGINEER Pulse 74 11/27/2023 12:54 PM OIL EXPLORATION ENGINEER Temperature 36.6 ??C (97.8 ??F) 11/16/2023 4:25 AM CS T Respiratory Rate 16 11/16/2023 4:25 AM OIL EXPLORATION ENGINEER Oxygen Saturation 90% 11/16/2023 4:25 AM OIL EXPLORATION ENGINEER Inhaled Oxygen Concentration - - Weight 61.6 kg (135 lb 12.8 oz) 024 12:54 PM OIL EXPLORATION ENGINEER Height 147.3 cm (4' 10) 11/05/2023 12: 03 AM OIL EXPLORATION ENGINEER Body Mass Index 28.38 11/05/2023 12:03 AM OIL EXPLORATION ENGINEER Plan of Treatment Not on file Procedures Procedure Name Priority Date/Time Associated Diagnosis Comments PANEL BASIC METABOLIC (BMP) Routine 11/16/2023 7:22 AM OIL EXPLORATION ENGINEER POC GLUCOSE Routine 11/16/2023 6:58 AM OIL EXPLORATION ENGINEER POC GLUCOSE Routine 11/15/2023 9:15 PM OIL EXPLORATION ENGINEER POC GLUCOSE Routine 11/15/2023 4:09 PM OIL EXPLORATION ENGINEER POC GLUCOSE Routine 11/15/2023 12:46 PM OIL EXPLORATION ENGINEER PANEL BASIC METABOLIC (BMP) Routine 11/15/2023 7:39 AM OIL EXPLORATION ENGINEER POC GLUCOSE Routine 11/15/2023 6:11 AM OIL EXPLORATION ENGINEER POC GLUCOSE Routine 11/14/2023 9:02 PM OIL EXPLORATION ENGINEER POC GLUCOSE Routine 11/14/2023 4:21 PM OIL EXPLORATION ENGINEER POC GLUCOSE Routine 11/14/2023 12:19 PM OIL EXPLORATION ENGINEER PANEL BASIC METABOLIC (BMP) Routine 11/14/2023 8:59 AM OIL EXPLORATION ENGINEER POC GLUCOSE Routine 11/14/2023 8:11 AM OIL EXPLORATION ENGINEER POC GLUCOSE Routine 11/13/2023 9:15 PM OIL EXPLORATION ENGINEER POC GLUCOSE Routine 11/13/2023 4:03 PM OIL EXPLORATION ENGINEER POC GLUCOSE Routine 11/13/2023 11:21 AM OIL EXPLORATION ENGINEER PANEL BASIC METABOLIC (BMP) Routine 11/13/2023 6:41 AM OIL EXPLORATION ENGINEER POC GLUCOSE Routine 11/13/2023 6:31 AM OIL EXPLORATION ENGINEER POC GLUCOSE Routine 11/12/2023 9:21 PM OIL EXPLORATION ENGINEER POC GLUCOSE Routine 11/12/2023 4:12 PM OIL EXPLORATION ENGINEER PANEL BASIC METABOLIC (BMP) Timed 11/12/2023 1:01 PM OIL EXPLORATION ENGINEER POC GLUCOSE Routine 11/12/2023 12:14 PM OIL EXPLORATION ENGINEER POC GLUCOSE Routine 11/12/2023 6:09 AM OIL EXPLORATION ENGINEER POC GLUCOSE Routine 11/11/2023 8:48 PM OIL EXPLORATION ENGINEER POC GLUCOSE Routine 11/11/2023 4:11 PM OIL EXPLORATION ENGINEER POC GLUCOSE Routine 11/11/2023 11:47 AM OIL EXPLORATION ENGINEER PHOSPHORUS Routine 11/11/2023 6:09 AM OIL EXPLORATION ENGINEER PANEL BASIC METABOLIC (BMP) Routine 11/11/2023 6:09 AM OIL EXPLORATION ENGINEER MAGNESIUM Routine 11/11/2023 6:09 AM OIL EXPLORATION ENGINEER TC LAB BLOOD DRAW BY VENIPUNCTURE Routine 11/11/2023 6:09 AM OIL EXPLORATION ENGINEER POC GLUCOSE Routine 11/10/2023 8:58 PM OIL EXPLORATION ENGINEER POC GLUCOSE Routine 11/10/2023 4:16 PM OIL EXPLORATION ENGINEER POC GLUCOSE Routine 11/10/2023 11:15 AM OIL EXPLORATION ENGINEER PHOSPHORUS Routine 11/10/2023 6:17 AM OIL EXPLORATION ENGINEER PANEL BASIC METABOLIC (BMP) Routine 11/10/2023 6:17 AM OIL EXPLORATION ENGINEER MAGNESIUM Routine 11/10/2023 6:17 AM OIL EXPLORATION ENGINEER PC LAB CBC/PLT Routine 11/10/2023 6:17 AM OIL EXPLORATION ENGINEER POC GLUCOSE Routine 11/09/2023 9:41 PM OIL EXPLORATION ENGINEER POC GLUCOSE Routine 11/09/2023 3:58 PM OIL EXPLORATION ENGINEER ANTI XA ASSAY LMW HEPARIN Timed 11/09/2023 2:18 PM OIL EXPLORATION ENGINEER POC GLUCOSE Routine 11/09/2023 11:28 AM OIL EXPLORATION ENGINEER XR FOOT RIGHT 3 V AP/OBL/LAT* Routine 11/09/2023 10:36 AM OIL EXPLORATION ENGINEER TELEMETRY STRIPS 11/09/2023 8:48 AM OIL EXPLORATION ENGINEER POC GLUCOSE Routine 11/09/2023 5:46 AM OIL EXPLORATION ENGINEER PC VALPROIC ACID LEVEL DEPAHOTE Routine 11/09/2023 5:41 AM OIL EXPLORATION ENGINEER PHOSPHORUS Routine 11/09/2023 5:41 AM OIL EXPLORATION ENGINEER PANEL BASIC METABOLIC (BMP) Routine 11/09/2023 5:41 AM OIL EXPLORATION ENGINEER MAGNESIUM Routine 11/09/2023 5:41 AM OIL EXPLORATION ENGINEER PC LAB CBC/PLT Routine 11/09/2023 5:41 AM OIL EXPLORATION ENGINEER TELEMETRY STRIPS 11/09/2023 1:21 AM OIL EXPLORATION ENGINEER POC GLUCOSE Routine 11/08/2023 8:40 PM OIL EXPLORATION ENGINEER TELEMETRY STRIPS 11/08/2023 7:31 PM OIL EXPLORATION ENGINEER PHOSPHORUS Routine 11/08/2023 4:20 PM OIL EXPLORATION ENGINEER MAGNESIUM Routine 11/08/2023 4:20 PM OIL EXPLORATION ENGINEER PANEL BASIC METABOLIC (BMP) Routine 11/08/2023 4:20 PM OIL EXPLORATION ENGINEER TC LAB BLOOD DRAW BY VENIPUNCTURE Routine 11/08/2023 4:20 PM OIL EXPLORATION ENGINEER POC GLUCOSE Routine 11/08/2023 3:56 PM OIL EXPLORATION ENGINEER POC GLUCOSE Routine 11/08/2023 11:03 AM OIL EXPLORATION ENGINEER TELEMETRY STRIPS 11/08/2023 9:49 AM OIL EXPLORATION ENGINEER XR CHEST 1 VIEW AP OR PA* Routine 11/08/2023 6:30 AM OIL EXPLORATION ENGINEER POC GLUCOSE Routine 11/08/2023 6:22 AM OIL EXPLORATION ENGINEER TELEMETRY STRIPS 11/08/2023 2:59 AM OIL EXPLORATION ENGINEER POC GLUCOSE Routine 11/07/2023 9:34 PM OIL EXPLORATION ENGINEER TELEMETRY STRIPS 11/07/2023 7:31 PM OIL EXPLORATION ENGINEER POC GLUCOSE Routine 11/07/2023 4:06 PM OIL EXPLORATION ENGINEER POC GLUCOSE Routine 11/07/2023 11:45 AM OIL EXPLORATION ENGINEER XR CHEST 2 VIEWS PA + LAT* Routine 11/07/2023 10:07 AM OIL EXPLORATION ENGINEER TELEMETRY STRIPS 11/07/2023 9:29 AM OIL EXPLORATION ENGINEER PC PROCALCITONIN (PCT) Routine 8:34 AM OIL EXPLORATION ENGINEER PC LAB CBC/PLT Routine 11/07/2023 8:34 AM OIL EXPLORATION ENGINEER PANEL BASIC METABOLIC (BMP) Routine 11/07/2023 8:34 AM OIL EXPLORATION ENGINEER MAGNESIUM Routine 11/07/2023 8:34 AM OIL EXPLORATION ENGINEER PHOSPHORUS Routine 11/07/2023 8:34 AM OIL EXPLORATION ENGINEER POC GLUCOSE Routine 11/07/2023 5:45 AM OIL EXPLORATION ENGINEER TELEMETRY STRIPS 11/07/2023 1:07 AM OIL EXPLORATION ENGINEER POC GLUCOSE Routine 11/06/2023 9:21 PM OIL EXPLORATION ENGINEER TELEMETRY STRIPS 11/06/2023 4:28 PM OIL EXPLORATION ENGINEER PC GASES,BLOOD,ANY COMB OF PH,PCD2,PO2,CO2,HCO2 Routine 11/06/2023 1:06 PM OIL EXPLORATION ENGINEER MAGNESIUM Timed 11/06/2023 1:06 PM OIL EXPLORATION ENGINEER PHOSPHORUS Timed 11/06/2023 1:06 PM OIL EXPLORATION ENGINEER PANEL BASIC METABOLIC (BMP) Timed 11/06/2023 1:06 PM OIL EXPLORATION ENGINEER PC LAB CBC/PLT Timed 11/06/2023 1:06 PM OIL EXPLORATION ENGINEER POC GLUCOSE Routine 11/06/2023 1:04 PM OIL EXPLORATION ENGINEER POC GLUCOSE Routine 11/06/2023 10:49 AM OIL EXPLORATION ENGINEER TELEMETRY STRIPS 11/06/2023 8:49 AM OIL EXPLORATION ENGINEER PC LAB GLYCOSYLATED HGB Routine 11/06/2023 6:31 AM OIL EXPLORATION ENGINEER PROTHROMBIN (PT) & INR Timed 6:31 AM OIL EXPLORATION ENGINEER PC PHOSPHORUS INORGANIC(PHOSPHATE) Routine 11/06/2023 6:31 AM OIL EXPLORATION ENGINEER PC MAGNESIUM, SERUM Routine 11/06/2023 6 :31 AM OIL EXPLORATION ENGINEER PC LAB CBC/PLT Routine 11/06/2023 6:31 AM OIL EXPLORATION ENGINEER TC LAB BLOOD DRAW BY VENIPUNCTURE Routine 11/06/2023 6:31 AM OIL EXPLORATION ENGINEER POC GLUCOSE Routine 11/06/2023 5:39 AM OIL EXPLORATION ENGINEER TELEMETRY STRIPS 11/06/2023 1:52 AM OIL EXPLORATION ENGINEER POC GLUCOSE Routine 11/05/2023 4:54 PM OIL EXPLORATION ENGINEER MAGNESIUM Routine 11/05/2023 4:48 PM OIL EXPLORATION ENGINEER POTASSIUM Routine 11/05/2023 4:48 PM OIL EXPLORATION ENGINEER CT HEAD NO IV CONTRAST Timed 11:44 AM OIL EXPLORATION ENGINEER POC GLUCOSE Routine 11/05/2023 11:11 AM OIL EXPLORATION ENGINEER TELEMETRY STRIPS 11/05/2023 9:25 AM OIL EXPLORATION ENGINEER EKG ADULT (12-LEAD) Routine 11/05/2023 6 :38 AM OIL EXPLORATION ENGINEER POC GLUCOSE Routine 11/05/2023 6:07 AM OIL EXPLORATION ENGINEER CT HEAD NO IV CONTRAST Timed 4:54 AM OIL EXPLORATION ENGINEER PROTHROMBIN (PT) & INR Timed 4:27 AM OIL EXPLORATION ENGINEER PC PHOSPHORUS INORGANIC(PHOSPHATE) Routine 11/05/2023 4:27 AM OIL EXPLORATION ENGINEER PC MAGNESIUM, SERUM Routine 11/05/2023 4 :27 AM OIL EXPLORATION ENGINEER PC GASES,BLOOD,ANY COMB OF PH,PCD2,PO2,CO2,HCO2 Routine 11/05/2023 4:27 AM OIL EXPLORATION ENGINEER PC LAB CBC/PLT Routine 11/05/2023 4:27 AM OIL EXPLORATION ENGINEER TC LAB BLOOD DRAW BY VENIPUNCTURE Routine 11/05/2023 4:27 AM OIL EXPLORATION ENGINEER PC TROPONIN QUANTITATIVE Timed 11/05/2023 4:27 AM OIL EXPLORATION ENGINEER PC TROPONIN QUANTITATIVE Timed 11/05/2023 2:58 AM OIL EXPLORATION ENGINEER CK, TOTAL STAT 11/05/2023 1:32 AM OIL EXPLORATION ENGINEER FIBRINOGEN STAT 11/05/2023 1:32 AM OIL EXPLORATION ENGINEER PC LAB PTT STAT 11/05/2023 1:32 AM OIL EXPLORATION ENGINEER PANEL HEPATIC FUNCTION STAT 1:32 AM OIL EXPLORATION ENGINEER PC LAB CBC/PLT STAT 11/05/2023 1:32 AM OIL EXPLORATION ENGINEER PANEL BASIC METABOLIC (BMP) STAT 11/05/2023 1:32 AM OIL EXPLORATION ENGINEER MAGNESIUM STAT 11/05/2023 1:32 AM OIL EXPLORATION ENGINEER PHOSPHORUS STAT 11/05/2023 1:32 AM OIL EXPLORATION ENGINEER PROTHROMBIN (PT) & INR STAT 1:32 AM OIL EXPLORATION ENGINEER PC IONIZED,CALCIUM STAT 11/05/2023 1: 18 AM OIL EXPLORATION ENGINEER PC LACTATE (LACTIC ACID) STAT 11/05/2023 1:18 AM OIL EXPLORATION ENGINEER PC GASES,BLOOD,ANY COMB OF PH,PCD2,PO2,CO2,HCO2 STAT 11/05/2023 1:18 AM OIL EXPLORATION ENGINEER PC TROPONIN QUANTITATIVE Timed 11/05/2023 1:18 AM OIL EXPLORATION ENGINEER CT HEAD-NECK - ANGIO - W/IV CON STAT 11/05/2023 12:09 AM OIL EXPLORATION ENGINEER PC LAB COMPLETE UA STAT 11/04/2023 11 :55 PM OIL EXPLORATION ENGINEER PF INSERT CATH,ART,PERCUT,SANTA ERM Routine 11/04/2023 11:43 PM OIL EXPLORATION ENGINEER ED EKG (12-LEAD) Routine 11/04/2023 11:2 5 PM OIL EXPLORATION ENGINEER CT SPINE LUMBAR NO IV CON STAT 11/04/2023 11:05 PM OIL EXPLORATION ENGINEER CT SPINE THORACIC NO IV CON STAT 11/04/2023 11:05 PM OIL EXPLORATION ENGINEER CT CHEST/ABD/PELVIS W/IV CONT STAT 11/04/2023 11:05 PM OIL EXPLORATION ENGINEER CT SPINE CERVICAL NO IV CON STAT 11/04/2023 11:05 PM OIL EXPLORATION ENGINEER CT HEAD NO IV CONTRAST STAT 11:05 PM OIL EXPLORATION ENGINEER XR CHEST 1 VIEW AP OR PA* STAT 11/04/2023 10:57 PM OIL EXPLORATION ENGINEER TC LAB ER STAT TOTAL HGB STAT 11/04/2023 10:48 PM OIL EXPLORATION ENGINEER PC ELECTROLYTES PANEL STAT 11/04/2023 10:48 PM OIL EXPLORATION ENGINEER PC HEPARIN ASSAY STAT 11/04/2023 10:4 5 PM OIL EXPLORATION ENGINEER EXTRA TUBE - SST Routine 11/04/2023 10:4 5 PM OIL EXPLORATION ENGINEER TC LAB BLOOD DRAW BY VENIPUNCTURE Routine 11/04/2023 10:45 PM OIL EXPLORATION ENGINEER PC TROPONIN QUANTITATIVE STAT 11/04/2023 10:45 PM OIL EXPLORATION ENGINEER PC LAB PTT STAT 11/04/2023 10:45 PM OIL EXPLORATION ENGINEER PC LAB ED INR STAT 11/04/2023 10:45 PM OIL EXPLORATION ENGINEER PRECAUTIONARY TUBE STAT 11/04/2023 10 :45 PM OIL EXPLORATION ENGINEER PC LACTATE (LACTIC ACID) STAT 11/04/2023 10:45 PM OIL EXPLORATION ENGINEER FIBRINOGEN STAT 11/04/2023 10:45 PM OIL EXPLORATION ENGINEER PC LAB CBC W/DIFF & PLT STAT 11/04/2023 10:45 PM OIL EXPLORATION ENGINEER PC GASES,BLOOD,ANY COMB OF PH,PCD2,PO2,CO2,HCO2 STAT 11/04/2023 10:45 PM OIL EXPLORATION ENGINEER ED US CRITICAL CARE STAT 11/04/2023 1 0:40 PM OIL EXPLORATION ENGINEER PANEL LIPID Routine 10/10/2021 11:08 AM OIL EXPLORATION ENGINEER from Last 3 Months or Most Recently Relevant to Health Maintenance Results * (ABNORMAL) PANEL BASIC METABOLIC (BMP) (11/16/2023 7:22 AM OIL EXPLORATION ENGINEER) Only the most recent of12 resultswithin the time period is included. Sodium 143 135 - 148 mEq/L [facility] Potassium 3.9 3.5 - 5.3 mEq/L [facility] Chloride 105 92 - 108 mEq/L [facility] CO2 27 22 - 30 mEq/L [facility] AnGap 11 8 - 16 mEq/L [facility] Glucose 87 70 - 100 mg/dL [facility] BUN 23 8 - 23 mg/dL [facility] Creatinine 1.19(H) 0.50 - 1.00 mg/dL [facility] Calcium 9.4 8.8 - 10.2 mg/dL [facility] eGFR (2020 CKD-EPI) 46(L) >=60 ml/min/1.7 3m2 [facility] Comment: The estimated glomerular filtration rate (eGFR) was calculated using the CKD-EPI 2020 creatinine equation, which does not include race as a factor. This equation is validated in individuals 18 years of age and older, and eGFR is normalized to a body surface area of 1.73m^2. Blood 11/16/2023 7:22 AM OIL EXPLORATION ENGINEER 11/16/2023 7:43 AM OIL EXPLORATION ENGINEER Jesusita Aiken APRN, CNP LABORATO RY [facility] [address] [address] * POC GLUCOSE (11/16/2023 6:58 AM OIL EXPLORATION ENGINEER) Only the most recent of42 resultswithin the time period is included. POC Glucose 84 70 - 100 mg/dL [facility]US[facility] - POINT OF CARE Blood 11/16/2023 6:58 AM OIL EXPLORATION ENGINEER Devin Dougherty MD LABORATORY [facility] - POINT OF CARE [address] [place] [id number], * PHOSPHORUS (11/11/2023 6:09 AM OIL EXPLORATION ENGINEER) Only the most recent of7 resultswithin the time period is included. Phosphorus 3.5 2.5 - 4.5 mg/dL [facility] Blood 11/11/2023 6:09 AM OIL EXPLORATION ENGINEER 11/11/2023 6:36 AM OIL EXPLORATION ENGINEER Quinn Covarrubias MD LABORATORY Performing Organization Address City/[facility]/ZIP Co de Phone Number [facility] [address] [address] * MAGNESIUM (11/11/2023 6:09 AM OIL EXPLORATION ENGINEER) Only the most recent of8 resultswithin the time period is included. Pathologist [facility] Magnesium 2.2 1.6 - 2.4 mg/dL [facility] Blood 11/11/2023 6:09 AM OIL EXPLORATION ENGINEER 11/11/2023 6:36 AM OIL EXPLORATION ENGINEER Quinn Covarrubias MD LABORATORY Performing Organization Address City/[facility] Co de Phone Number [facility] [address] [address] * (ABNORMAL) CBC WITH PLATELET (11/11/2023 6:09 AM OIL EXPLORATION ENGINEER) Only the most recent of7 resultswithin the time period is included. Pathologist [facility] WBC 5.60 4.00 - 10.00 k/cmm [facility] RBC 3.80(L) 3.90 - 5.20 m/cmm [facility] Hgb 9.5(L) 11.5 - 15.7 g/dL [facility] Hematocrit 31.4(L) 34.0 - 45.0 % [facility] MCV 82.6 80.0 - 100.0 fL [facility] MCH 25.0 25.0 - 32.0 pg [facility] MCHC 30.3(L) 31.0 - 36.0 g/dL [facility] RDW 16.1(H) 11.5 - 14.5 % [facility] Plt 275 150 - 400 k/cmm [facility] MPV 11.8 6.5 - 12.5 fL [facility] Blood 11/11/2023 6:09 AM OIL EXPLORATION ENGINEER 11/11/2023 6:36 AM OIL EXPLORATION ENGINEER Quinn Covarrubias MD LABORATORY Performing Organization Address City/[facility]/ZIP Co de Phone Number [address] [address] * ANTI XA ASSAY LMW HEPARIN (11/09/2023 2:18 PM OIL EXPLORATION ENGINEER) Anti XA LMW 0.32 IU/mL [facility] Comment: Anti Xa Assay LMW Heparin Therapeutic Ranges: 0.4-1.1 IU/mL for twice daily 1.0-2.0 IU/mL for once daily Blood 11/09/2023 2:18 PM OIL EXPLORATION ENGINEER 11/09/2023 2:29 PM OIL EXPLORATION ENGINEER Quinn Covarrubias MD LABORATORY Performing Organization Address [facility] Co de Phone Number [address] [address] * XR FOOT RIGHT 3 V AP/OBL/LAT* (11/09/2023 10:36 AM OIL EXPLORATION ENGINEER) Anatomical Region Laterality Modality Foot Computed Radiogr aphy 11/09/2023 10:4 7 AM OIL EXPLORATION ENGINEER Impressions 11/09/2023 10:50 AM OIL EXPLORATION ENGINEER Impression: No acute osseous abnormality. Generalized osteopenia. Reading Radiologist: Angela Camp Narrative 11/09/2023 10:50 AM OIL EXPLORATION ENGINEER Technique: XR FOOT RIGHT 3 V [...] osteopenia. Reading Radiologist: Angela Camp Jesusita Larawuyoh INCINERATOR ATTENDANT, FRONT END DEVELOPER DESIGNER RAD XRAY * TELEMETRY STRIPS (11/09/2023 8:48 AM OIL EXPLORATION ENGINEER) Only the most recent of12 resultswithin the time period is included. Narrative 11/09/2023 8:48 AM OIL EXPLORATION ENGINEER Ordered by an unspecified provider. Provider Unknown RAD ECHO * (ABNORMAL) VALPROATE (DEPAKOTE) LEVEL (11/09/2023 5:41 AM OIL EXPLORATION ENGINEER) Valproate 31.8(L) 50.0 - 100.0 mcg/mL [facility] Blood 11/09/2023 5:41 AM OIL EXPLORATION ENGINEER 11/09/2023 8:19 AM OIL EXPLORATION ENGINEER Quinn Covarrubias MD LABORATORY [facility] [address] [address] * XR CHEST 1 VIEW AP OR PA* (11/08/2023 6:30 AM OIL EXPLORATION ENGINEER) Only the most recent of2 resultswithin the time period is included. Anatomical Region Laterality Modality Chest Computed Radiogr aphy 11/08/2023 6:56 AM OIL EXPLORATION ENGINEER Impressions 11/08/2023 7:24 AM OIL EXPLORATION ENGINEER Impression: Stable chest. I have personally reviewed the image(s) and initial interpretation, and I agree with the findings as documented by the resident/fellow. Reading Radiologist: Ronal Hidalgo Reading Resident: Laith Berkowitz Narrative 11/08/2023 7:24 AM OIL EXPLORATION ENGINEER Technique: XR CHEST 1 VIEW AP [...] VIEWS PA + LAT* (11/07/2023 10:07 AM OIL EXPLORATION ENGINEER) Anatomical Region Laterality Modality Chest Computed Radiogr aphy 11/07/2023 10:0 9 AM OIL EXPLORATION ENGINEER Impressions 11/07/2023 10:10 AM OIL EXPLORATION ENGINEER Impression: New left basilar opacities with small effusion concerning for developing infection. Reading Radiologist: Phil Contreras Narrative 11/07/2023 10:10 AM OIL EXPLORATION ENGINEER Technique: XR CHEST 2 VIEWS PA [...] effusion concerning fordeveloping infection. Reading Radiologist: Phil Conterras Quinn Covarrubias MD RAD XRAY * PROCALCITONIN (11/07/2023 8:34 AM OIL EXPLORATION ENGINEER) Procalcitonin 0.12 ng/mL [facility] Comment: Results <0.50 ng/mL represent a low risk of severe sepsis and/or septic shock. Results >2.0 ng/mL represent a high risk of severe sepsis and/or septic shock. Blood 11/07/2023 8:34 AM OIL EXPLORATION ENGINEER 11/07/2023 8:40 AM OIL EXPLORATION ENGINEER Quinn Covarrubias MD LABORATORY [facility] [address] [address] * (ABNORMAL) BLOOD GASES (11/06/2023 1:06 PM OIL EXPLORATION ENGINEER) Only the most recent of3 resultswithin the time period is included. PH Jalen 7.36 7.32 - 7.42 [facility] PCO2 Jalen 48 41 - 51 mmHG [facility] PO2 Jalen 86(H) 25 - 40 mmHG [facility] Bicarb Jalen 26 24 - 28 mEq/L [facility] O2 Sat Jalen 96 % [facility] Base Exc Jalen 1.0 -10.0 - 2.0 mEq/L [facility] Blood Venous 11/06/2023 1:06 PM OIL EXPLORATION ENGINEER 11/06/2023 1:10 PM OIL EXPLORATION ENGINEER Narrative [facility] - 11/06/2023 1:16 PM OIL EXPLORATION ENGINEER Draw on Room Air: No O2 LPM (liter/min) Level->4 via mask FiO2 Level: 100 Quinn Covarrubias MD LABORATORY Performing Organization Address City/[facility]/ZIP Co de Phone Number [facility] [address] [address] * (ABNORMAL) ICU MAGNESIUM (11/06/2023 6:31 AM OIL EXPLORATION ENGINEER) Only the most recent of2 resultswithin the time period is included. Magnesium 2.5(H) 1.6 - 2.4 mg/dL [facility] Blood 11/06/2023 6:31 AM OIL EXPLORATION ENGINEER 11/06/2023 7:37 AM OIL EXPLORATION ENGINEER Devin Dougherty MD LABORATORY Performing Organization Address City/[facility]/ZIP Co de Phone Number [facility] [address] [address] * ICU PHOSPHORUS (11/06/2023 6:31 AM OIL EXPLORATION ENGINEER) Only the most recent of2 resultswithin the time period is included. Phosphorus 4.1 2.5 - 4.5 mg/dL [facility] Blood 11/06/2023 6:31 AM OIL EXPLORATION ENGINEER 11/06/2023 7:37 AM OIL EXPLORATION ENGINEER Devin Dougherty MD LABORATORY [facility] [address] [address] * (ABNORMAL) ICU CBC WITH PLATELET (11/06/2023 6:31 AM OIL EXPLORATION ENGINEER) Only the most recent of2 resultswithin the time period is included. WBC 9.06 4.00 - 10.00 k/cmm [facility] RBC 3.77(L) 3.90 - 5.20 m/cmm [facility] Hgb 9.6(L) 11.5 - 15.7 g/dL [facility] Hematocrit 30.8(L) 34.0 - 45.0 % [facility] MCV 81.7 80.0 - 100.0 fL [facility] MCH 25.5 25.0 - 32.0 pg [facility] MCHC 31.2 31.0 - 36.0 g/dL [facility] RDW 15.9(H) 11.5 - 14.5 % [facility] Plt 284 150 - 400 k/cmm [facility] MPV 12.1 6.5 - 12.5 fL [facility] Blood 11/06/2023 6:31 AM OIL EXPLORATION ENGINEER 11/06/2023 7:37 AM OIL EXPLORATION ENGINEER Devin Dougherty MD LABORATORY Performing Organization Address [place]/[facility] Co de Phone Number [facility] [address] [phone] * (ABNORMAL) ICU PANEL BASIC METABOLIC (BMP) (11/06/2023 6:31 AM OIL EXPLORATION ENGINEER) Only the most recent of2 resultswithin the time period is included. Sodium 142 135 - 148 mEq/L [facility] Potassium 3.7 3.5 - 5.3 mEq/L [facility] Chloride 107 92 - 108 mEq/L [facility] CO2 26 22 - 30 mEq/L [facility] AnGap 9 8 - 16 mEq/L [facility] Glucose 148(H) 70 - 100 mg/dL [facility] BUN 12 8 - 23 mg/dL [facility] Creatinine 0.77 0.50 - 1.00 mg/dL [facility] Calcium 8.7(L) 8.8 - 10.2 mg/dL [facility] eGFR (2020 CKD-EPI) 77 >=60 ml/min/1.7 3m2 [facility] Comment: The estimated glomerular filtration rate (eGFR) was calculated using the CKD-EPI 2020 creatinine equation, which does not include race as a factor. This equation is validated in individuals 18 years of age and older, and eGFR is normalized to a body surface area of 1.73m^2. Blood 11/06/2023 6:31 AM OIL EXPLORATION ENGINEER 11/06/2023 7:37 AM OIL EXPLORATION ENGINEER Devin Dougherty MD LABORATORY Performing Organization Address [facility] Co de Phone Number [facility] [address] [phone] * PROTHROMBIN (PT) & INR (11/06/2023 6:31 AM OIL EXPLORATION ENGINEER) Only the most recent of3 resultswithin the time period is included. PT 11.4 9.0 - 12.5 sec [facility] INR 1.0 0.8 - 1.1 [facility] Comment: Warfarin Therapeutic Range: Standard Intensity: 2.0 - 3.0 High Intensity: 2.5 - 3.5 Blood 11/06/2023 6:31 AM OIL EXPLORATION ENGINEER 11/06/2023 7:37 AM OIL EXPLORATION ENGINEER Quinn Covarrubias MD LABORATORY Performing Organization Address [facility] Co de Phone Number [facility] [address] [address] * (ABNORMAL) GLYCOSYLATED HGB - A1C (11/06/2023 6:31 AM OIL EXPLORATION ENGINEER) Hemoglobin A1C 8.1(H) 4.0 - 5.6 % [facility] Comment: Increased risk for diabetes (prediabetes): 5.7-6.4% Diabetes: greater than or equal to 6.5% * * In the absence of unequivocal hyperglycemia, diagnosis requires two abnormal test results (i.e. HbA1c and glucose) or two abnormal results from specimens collected at two different timepoints. Estimated Average Glucose 186(H) 68 - 114 [facility] Comment: The ADA recommends reporting an estimated Average Glucose (eAG) with all hemoglobin A1c results using the equation derived from a study of 501 normal diabetic adults. Minority populations were underrepresented and children were not included. The EAG is not equivalent to a fasting glucose. Blood 11/06/2023 6:31 AM OIL EXPLORATION ENGINEER 11/06/2023 11:28 AM OIL EXPLORATION ENGINEER Quinn Covarrubias MD LABORATORY Performing Organization Address City/[facility] Co de Phone Number [address] [address] * (ABNORMAL) POTASSIUM (11/05/2023 4:48 PM OIL EXPLORATION ENGINEER) Potassium 3.2(L) 3.5 - 5.3 mEq/L [facility] Blood 11/05/2023 4:48 PM OIL EXPLORATION ENGINEER 11/05/2023 4:58 PM OIL EXPLORATION ENGINEER Quinn Covarrubias MD LABORATORY Performing Organization Address [facility] Co de Phone Number [address] [address] * CT HEAD NO IV CONTRAST (11/05/2023 11:44 AM OIL EXPLORATION ENGINEER) Only the most recent of3 resultswithin the time period is included. Anatomical Region Laterality Modality Skull Computed Tomogra phy 11/05/2023 12:1 6 PM OIL EXPLORATION ENGINEER Impressions 11/05/2023 12:38 PM OIL EXPLORATION ENGINEER Impression: Stable head CT as compared to the study performed 7 hours earlier. Intra-axial and extra-axial hemorrhage(s) without midline shift or hydrocephalus. The basal cisterns are patent. Reading Radiologist: Ford Fernández 11/05/2023 12:38 PM OIL EXPLORATION ENGINEER Exam: Head CT without contrast, 11/05/2023 [...] * EKG ADULT (12-LEAD) (11/05/2023 6:38 AM OIL EXPLORATION ENGINEER) 11/05/2023 6:38 AM OIL EXPLORATION ENGINEER Impressions [facility] CVIS EKG ORDERS - 11/05/2023 6:38 AM OIL EXPLORATION ENGINEER SINUS RHYTHM RIGHT BUNDLE BRANCH BLOCK ??[120+ ms QRS DURATION, UPRIGHT V1, 40+ ms S IN I/aVL/V4/V5/V6] ABNORMAL ECG P-R Interval 151 ms QRS Interval 128 ms QT Interval 420 ms QTC Interval 462 ms P [place] 9 QRS [place] 27 T Wave [place] 70 Narrative Procedure Note Lauren Mills MD - 11/06/2023 IMPRESSION SINUS RHYTHM RIGHT BUNDLE BRANCH BLOCK [120+ ms QRS DURATION, UPRIGHT V1, 40+ ms S INI/aVL/V4/V5/V6] ABNORMAL ECG P-R Interval 151 ms QRS Interval 128 ms QT Interval 420 ms QTC Interval 462 ms P [place] 9 QRS [place] 27 T Wave [place] 70 Quinn Covarrubias MD EKG [facility] CVIS EKG ORDERS * (ABNORMAL) ICU BLOOD GAS (11/05/2023 4:27 AM OIL EXPLORATION ENGINEER) PH Art 7.38 7.35 - 7.45 [facility] PCO2 Art 42 35 - 45 mmHG [facility] PO2 Art 99(H) 75 - 85 mmHG [facility] Bicarb Art 25 22 - 26 mEq/L [facility] O2 Sat Art 98 96 - 99 % [facility] Base Exc Art 0.0 -10.0 - 2.0 mEq/L [facility] Blood Arterial 11/05/2023 4: 27 AM OIL EXPLORATION ENGINEER 11/05/2023 4:34 AM OIL EXPLORATION ENGINEER Devin Dougherty MD LABORATORY Performing Organization Address [facility] Co de Phone Number [facility] [address] [address] * (ABNORMAL) TROP 6H (11/05/2023 4:27 AM OIL EXPLORATION ENGINEER) 6H Trop 51(H) <=14 ng/L [facility] 6H Delta Significan t(A) Not Significant [facility] Blood 11/05/2023 4:27 AM OIL EXPLORATION ENGINEER 11/05/2023 4:35 AM OIL EXPLORATION ENGINEER Devin Dougherty MD LABORATORY Performing Organization Address [facility] Co de Phone Number [facility] [address] [address] * (ABNORMAL) TROP 4H (11/05/2023 2:58 AM OIL EXPLORATION ENGINEER) 4H Trop 39(H) <=14 ng/L [facility] 4H Delta Significan t(A) Not Significant [facility] Blood 11/05/2023 2:58 AM OIL EXPLORATION ENGINEER 11/05/2023 3:48 AM OIL EXPLORATION ENGINEER Devin Dougherty MD LABORATORY Performing Organization Address [facility] Co de Phone Number [facility] [address] [address] * (ABNORMAL) PANEL HEPATIC FUNCTION (11/05/2023 1:32 AM OIL EXPLORATION ENGINEER) Alk Phos 111(H) 35 - 104 IU/L [facility] Total Protein 6.5 6.4 - 8.3 g/dL [facility] Bili Direct na <=0.3 mg/dL [facility] Comment:Direct Bilirubin = < 0.2. Accuracy of result suspect due to lipemia. Albumin 3.8 3.8 - 5.1 g/dL [facility] Bili Total <0.2 <=1.2 mg/dL [facility] ALT (SGPT) na <=33 [facility] Comment:ALT = 15. Accuracy o f result suspect due to lipemia. AST(SGOT) na 5 - 40 [facility] Comment:AST = 27. Accuracy o f result suspect due to lipemia. Blood 11/05/2023 1:32 AM OIL EXPLORATION ENGINEER 11/05/2023 1:32 AM OIL EXPLORATION ENGINEER Devin Dougherty MD LABORATORY Performing Organization Address City/[facility]/ZIP Co de Phone Number [facility] [address] [address] * FIBRINOGEN (11/05/2023 1:32 AM OIL EXPLORATION ENGINEER) Only the most recent of2 resultswithin the time period is included. Fibrinogen 262 200 - 400 mg/dL [facility] Blood 11/05/2023 1:32 AM OIL EXPLORATION ENGINEER 11/05/2023 1:32 AM OIL EXPLORATION ENGINEER Devin Dougherty MD LABORATORY Performing Organization Address [facility] Co de Phone Number [facility] [address] [address] * CK, TOTAL (11/05/2023 1:32 AM OIL EXPLORATION ENGINEER) CK 56 26 - 192 IU/L [facility] Blood 11/05/2023 1:32 AM OIL EXPLORATION ENGINEER 11/05/2023 1:32 AM OIL EXPLORATION ENGINEER Devin Dougherty MD LABORATORY Performing Organization Address [facility] Co de Phone Number [facility] [address] [address] * PTT (APTT) (11/05/2023 1:32 AM OIL EXPLORATION ENGINEER) Only the most recent of2 resultswithin the time period is included. APTT 26.0 25.0 - 37.0 sec [facility] Blood 11/05/2023 1:32 AM OIL EXPLORATION ENGINEER 11/05/2023 1:32 AM OIL EXPLORATION ENGINEER Devin Dougherty MD LABORATORY Performing Organization Address [facility] Co de Phone Number [facility] [address] [address] * (ABNORMAL) TROP 2H (11/05/2023 1:18 AM OIL EXPLORATION ENGINEER) 2H Trop 18(H) <=14 ng/L [facility] 2H Delta Indeterminate Not Significant [facility] Blood 11/05/2023 1:18 AM OIL EXPLORATION ENGINEER 11/05/2023 1:45 AM OIL EXPLORATION ENGINEER Devin Doughrety MD LABORATORY Performing Organization Address [facility] de Phone Number [facility] [address] [address] * LACTATE (LACTIC ACID) (11/05/2023 1:18 AM OIL EXPLORATION ENGINEER) Only the most recent of2 resultswithin the time period is included. Lactate 1.9 0.7 - 2.1 mmol/L [facility] Blood 11/05/2023 1:18 AM OIL EXPLORATION ENGINEER 11/05/2023 1:27 AM OIL EXPLORATION ENGINEER Narrative [facility] - 11/05/2023 1:45 AM OIL EXPLORATION ENGINEER Send specimen on ice! Devin Dougherty MD LABORATORY Performing Organization Address [facility] de Phone Number [facility] [address] [address] * CALCIUM,IONIZED (11/05/2023 1:18 AM OIL EXPLORATION ENGINEER) PH 7.37 7.32 - 7.42 [facility] ICA, Actual 4.82 4.40 - 5.20 mg/dL [facility] ICA, pH Corrected 4.75 4.40 - 5.20 mg/dL [facility] Blood 11/05/2023 1:18 AM OIL EXPLORATION ENGINEER 11/05/2023 1:27 AM OIL EXPLORATION ENGINEER Narrative [facility] - 11/05/2023 1:44 AM OIL EXPLORATION ENGINEER Send specimen on ice! Devin Dougherty MD LABORATORY [facility] [address] [place] [address] * CT HEAD-NECK - ANGIO - W/IV CON (11/05/2023 12:09 AM OIL EXPLORATION ENGINEER) Anatomical Region Laterality Modality Skull Computed Tomogra phy 11/05/2023 12:2 1 AM OIL EXPLORATION ENGINEER Impressions 11/05/2023 10:22 AM OIL EXPLORATION ENGINEER Impression: ?? Slightly increased size of [...] Fernández Resident: Laith Berkowitz 11/05/2023 10:22 AM OIL EXPLORATION ENGINEER CT angiogram of the Head with [...] and reviewed by the Radiologist using the [employer] workstation, and these images were archived in [...] and reviewed by the Radiologist using the [employer] workstation,and these images were archived in the [...] NEURO * (ABNORMAL) URINALYSIS,TOTAL (11/04/2023 11:55 PM OIL EXPLORATION ENGINEER) Color COLORLESS YELLOW [facility] Appearance CLEAR CLEAR [facility] Urine Glucose 100(A) NEGATIVE mg/dL [facility] Bili UA NEGATIVE NEGATIVE [facility] Ketones NEGATIVE NEGATIVE [facility] Specific Tiro 1.036(A) 1.003 - 1.030 [facility] Blood Ur NEGATIVE Neg-Trace [facility] PH Urine 7.5(H) 5.0 - 7.0 [facility] Protein Ur TRACE Neg-Trace [facility] Urobilinogen NORMAL NORMAL EU/dL [facility] Nitrite Ur NEGATIVE NEGATIVE [facility] Leuk Est NEGATIVE Neg-Trace [facility] WBC Ur 0-5 0 - 5 perHPF [facility] RBC Ur 0-3 0 - 3 perHPF [facility] SQ EPITH 0-5 0 - 5 perHPF [facility] Urinalysis Performed at: [facility] Urine 11/04/2023 11:5 5 PM OIL EXPLORATION ENGINEER 11/05/2023 12:03 AM OIL EXPLORATION ENGINEER Devin Dougherty MD LABORATORY [facility] [address] [place] [address] * PF INSERT CATH,ART,PERCUT,SHORTTERM (11/04/2023 11:43 PM OIL EXPLORATION ENGINEER) Narrative Rito Graf MD - 11/04/2023 11:43 PM OIL EXPLORATION ENGINEER Priscilla Holcomb MD ? 11/04/2023 11:44 PM Arterial Line Performed by: Priscilla Holcomb MD Authorized by: Rito Graf MD ?? Consent: ??Consent obtained: ??Verbal ??Consent given by: ??Patient ??Risks discussed: ??Pain, bleeding and infection [place] protocol: ??Patient identity confirmed: ??Verbally with patient, [...] * ED EKG (12-LEAD) (11/04/2023 11:25 PM OIL EXPLORATION ENGINEER) 11/04/2023 11:2 5 PM OIL EXPLORATION ENGINEER Impressions [facility] CVIS EKG ORDERS - 11/04/2023 11:25 PM OIL EXPLORATION ENGINEER SINUS TACHYCARDIA RIGHT BUNDLE BRANCH BLOCK ??[120+ ms QRS DURATION, UPRIGHT V1, 40+ ms S IN I/aVL/V4/V5/V6] ABNORMAL ECG P-R Interval 173 ms QRS Interval 127 ms QT Interval 395 ms QTC Interval 458 ms P [place] 57 QRS [place] 34 T Wave [place] 43 Narrative Procedure Note Vineet Díaz MD - 11/05/2023 IMPRESSION SINUS TACHYCARDIA RIGHT BUNDLE BRANCH BLOCK [120+ ms QRS DURATION, UPRIGHT V1, 40+ ms S INI/aVL/V4/V5/V6] ABNORMAL ECG P-R Interval 173 ms QRS Interval 127 ms QT Interval 395 ms QTC Interval 458 ms P [place] 57 QRS [place] 34 T Wave [place] 43 Devin Dougherty MD EKG [facility]IS EKG ORDERS * CT SPINE THORACIC NO IV CON (11/04/2023 11:05 PM OIL EXPLORATION ENGINEER) Anatomical Region Laterality Modality Thoracic Spine Computed Tomogra phy 11/04/2023 11:2 3 PM OIL EXPLORATION ENGINEER Impressions 11/05/2023 9:22 AM OIL EXPLORATION ENGINEER Impression: 1. No suspected acute fracture or dislocation of the thoracic or lumbar spine. ?? 2. Phjo-vd-vxsnxlaj lumbar spondylosis without suspected high-grade spinal canal or neural foraminal narrowing. I have personally reviewed the image(s) and initial interpretation, and I agree with the findings as documented by the resident/fellow. Reading Radiologist: Ford Fernández Reading Resident: Laith Berkowitz Narrative 11/05/2023 9:22 AM OIL EXPLORATION ENGINEER Exam: Thoracic and Lumbar Spine CT [...] dislocation of the thoracic or lumbarspine. 2. Svxz-wd-aloqnkht lumbar spondylosis without suspected high-grade spinalcanal or neural foraminal narrowing. I have personally reviewed the image(s) and initial interpretation, and Iagree with the findings as documented by the resident/fellow. Reading Radiologist: Ford Fernández Resident: Laith Berkowitz Devin Dougherty MD RAD CT NEURO * CT SPINE LUMBAR NO IV CON (11/04/2023 11:05 PM OIL EXPLORATION ENGINEER) Anatomical Region Laterality Modality Lumbar Spine Computed Tomogra phy 11/04/2023 11:2 3 PM OIL EXPLORATION ENGINEER Impressions 11/05/2023 9:22 AM OIL EXPLORATION ENGINEER Impression: 1. No suspected acute fracture or dislocation of the thoracic or lumbar spine. ?? 2. Mfyy-cv-senmllex lumbar spondylosis without suspected high-grade spinal canal or neural foraminal narrowing. I have personally reviewed the image(s) and initial interpretation, and I agree with the findings as documented by the resident/fellow. Reading Radiologist: Ford Fernández Resident: Laith Berkowitz Narrative 11/05/2023 9:22 AM OIL EXPLORATION ENGINEER Exam: Thoracic and Lumbar Spine CT [...] dislocation of the thoracic or lumbarspine. 2. Muei-wm-prqndpwt lumbar spondylosis without suspected high-grade spinalcanal or neural foraminal narrowing. I have personally reviewed the image(s) and initial interpretation, and Iagree with the findings as documented by the resident/fellow. Reading Radiologist: Ford Fernández Reading Resident: Laith Berkowitz Devin Dougherty MD RAD CT NEURO * CT SPINE CERVICAL NO IV CON (11/04/2023 11:05 PM OIL EXPLORATION ENGINEER) Anatomical Region Laterality Modality Cervical Spine Computed Tomogra phy 11/04/2023 11:2 0 PM OIL EXPLORATION ENGINEER Impressions 11/05/2023 8:27 AM OIL EXPLORATION ENGINEER Impression: ?? 1. No acute fracture or traumatic subluxation of the cervical vertebrae. 2. Mild degenerative changes of the cervical spine without high-grade spinal canal or neural foraminal narrowing. I have personally reviewed the image(s) and initial interpretation, and I agree with the findings as documented by the resident/fellow. Reading Radiologist: Ford Fernández Reading Resident: Laith Berkowitz 11/05/2023 8:27 AM OIL EXPLORATION ENGINEER Exam: Cervical spine CT without contrast, [...] spinal canal narrowing. C5-6: Mild left and gorc-dg-tknxadof right neural foraminal narrowing. Borderline mild spinal [...] spinal canal narrowing. C5-6: Mild left and uodw-lv-bvdiycha right neural foraminal narrowing.Borderline mild spinal canal [...] CT CHEST/ABD/PELVIS W/IV CONT (11/04/2023 11:05 PM OIL EXPLORATION ENGINEER) Anatomical Region Laterality Modality Chest Computed Tomogra phy 11/04/2023 11:2 9 PM OIL EXPLORATION ENGINEER Impressions 11/05/2023 6:33 AM OIL EXPLORATION ENGINEER Impression: 1. No acute traumatic sequelae [...] Reading Resident: Laith Berkowitz 11/05/2023 6:33 AM OIL EXPLORATION ENGINEER Comparison: None Indication: Trauma (STAB) ?? [...] ED CHEMISTRY LABS(NA,K,CL,CO2,GLU,CREAT,CA-IONIZED,ANION GAP) (11/04/2023 10:48 PM OIL EXPLORATION ENGINEER) Sodium 144 135 - 148 mEq/L [facility] Chloride 106 92 - 108 mEq/L [facility] AnGap 11 8 - 16 mEq/L [facility] Glucose 234(H) 70 - 100 mg/dL [facility] ICA, Actual 4.52 4.40 - 5.20 mg/dL [facility] ICA, pH Corrected 4.51 4.40 - 5.20 mg/dL [facility] Creatinine 0.81 0.50 - 1.00 mg/dL [facility] BICARB 27(H) 22 - 26 mEq/L [facility] eGFR (2020 CKD-EPI) 73 >=60 ml/min/1.7 3m2 [facility] Comment: The estimated glomerular filtration rate (eGFR) was calculated using the CKD-EPI 2020 creatinine equation, which does not include race as a factor. This equation is validated in individuals 18 years of age and older, and eGFR is normalized to a body surface area of 1.73m^2. Potassium 2.8(AA) 3.5 - 5.3 mEq/L [facility] Comment:Critcal Result Low Blood 11/04/2023 10:4 8 PM OIL EXPLORATION ENGINEER 11/04/2023 10:49 PM OIL EXPLORATION ENGINEER Narrative [facility] - 11/04/2023 10:55 PM OIL EXPLORATION ENGINEER Critical value for Potassium called to and read back by Rafa Hutchins RN in ??EDSTAB 2 at 11/04/2023 22:55:31 OIL EXPLORATION ENGINEER by Eleni Spring MLS. Devin Dougherty MD LABORATORY Performing Organization Address City/[facility] Co de Phone Number [address] [address] * (ABNORMAL) ED HEMOGLOBIN TOTAL (ED ONLY) (11/04/2023 10:48 PM OIL EXPLORATION ENGINEER) Hgb 10.3(L) 11.5 - 15.7 g/dL [facility] Blood 11/04/2023 10:4 8 PM OIL EXPLORATION ENGINEER 11/04/2023 10:49 PM OIL EXPLORATION ENGINEER Devin Dougherty MD LABORATORY Performing Organization Address [facility] Co de Phone Number [address] [address] * ED INR (11/04/2023 10:45 PM OIL EXPLORATION ENGINEER) ED INR 1.0 0.8 - 1.1 [facility] Comment: Warfarin Therapeutic Range: Standard Intensity: 2.0 - 3.0 High Intensity: 2.5 - 3.5 Blood 11/04/2023 10:4 5 PM OIL EXPLORATION ENGINEER 11/04/2023 10:48 PM OIL EXPLORATION ENGINEER Devin Dougherty MD LABORATORY Performing Organization Address [facility] Co de Phone Number [facility] [address] [address] * EXTRA TUBE - LIGHT GREEN (11/04/2023 10:45 PM OIL EXPLORATION ENGINEER) LIGHT GREEN TUBE Stored [facility] Comment:Green tubes ([place] Heparin) are stored in the lab for 3 days from the collection date. Blood 11/04/2023 10:4 5 PM OIL EXPLORATION ENGINEER 11/04/2023 10:50 PM OIL EXPLORATION ENGINEER Devin Dougherty MD LABORATORY Performing Organization Address [facility] Co de Phone Number [facility] [address] [address] * EXTRA TUBE - SST (11/04/2023 10:45 PM OIL EXPLORATION ENGINEER) SST TUBE Stored [facility] Comment:SST tubes (Serum Sep arator) are stored in the lab for 3 days from the collection date. Blood 11/04/2023 10:4 5 PM OIL EXPLORATION ENGINEER 11/04/2023 10:50 PM OIL EXPLORATION ENGINEER Devin Dougherty MD LABORATORY Performing Organization Address [facility] Co de Phone Number [facility] [address] [address] * HS TROPONIN (11/04/2023 10:45 PM OIL EXPLORATION ENGINEER) HS Troponin I 10 <=14 ng/L [facility] Blood 11/04/2023 10:4 5 PM OIL EXPLORATION ENGINEER 11/04/2023 11:05 PM OIL EXPLORATION ENGINEER Narrative [facility] - 11/04/2023 11:36 PM OIL EXPLORATION ENGINEER First Occurrence of the Troponin order is to be drawn Stat by Nursing staff on the unit. Devin Dougherty MD LABORATORY [facility] [address] [address] * (ABNORMAL) CBC WITH PLTS/AUTO DIFF (11/04/2023 10:45 PM OIL EXPLORATION ENGINEER) WBC 9.42 4.00 - 10.00 k/cmm [facility] RBC 3.86(L) 3.90 - 5.20 m/cmm [facility] Hgb 9.8(L) 11.5 - 15.7 g/dL [facility] Hematocrit 31.8(L) 34.0 - 45.0 % [facility] MCV 82.4 80.0 - 100.0 fL [facility] MCH 25.4 25.0 - 32.0 pg [facility] MCHC 30.8(L) 31.0 - 36.0 g/dL [facility] RDW 15.3(H) 11.5 - 14.5 % [facility] Plt 292 150 - 400 k/cmm [facility] MPV 11.1 6.5 - 12.5 fL [facility] Automated Abs Neutrophil 5.80 1.70 - 6.50 k/cmm [facility] Comment:Preliminary ANC, Fin al Result to Follow Abs Immature Granulocyte 0.07 0.00 - 0.09 k/cmm [facility] Comment:The Immature Granulo cyte Absolute count contains metamyelocytes and myelocytes. Abs Neutrophil 5.80 1.70 - 6.50 k/cmm [facility] Abs Lymphocyte 2.33 0.80 - 4.00 k/cmm [facility] Abs Monocyte 0.88 0.20 - 1.00 k/cmm [facility] Abs Eosinophil 0.27 0.00 - 0.60 k/cmm [facility] Abs Basophil 0.07 0.00 - 0.20 k/cmm [facility] Blood 11/04/2023 10:4 5 PM OIL EXPLORATION ENGINEER 11/04/2023 11:05 PM OIL EXPLORATION ENGINEER Devin Dougherty MD LABORATORY [facility] [address] [address] * PRECAUTIONARY TUBE (11/04/2023 10:45 PM OIL EXPLORATION ENGINEER) Prec Tube Precautionary Blood Bank Specimen Received. [facility] Blood 11/04/2023 10:4 5 PM OIL EXPLORATION ENGINEER 11/04/2023 10:52 PM OIL EXPLORATION ENGINEER Devin Dougherty MD LAB TRANSFUSION SER VICES Performing Organization Address [facility] Co de Phone Number [address] [address] * (ABNORMAL) ANTI XA HEPARIN UNFRACTIONATED (11/04/2023 10:45 PM OIL EXPLORATION ENGINEER) Anti XA Hep U <0.04(L) 0.30 - 0.70 IU/mL [facility] Blood 11/04/2023 10:4 5 PM OIL EXPLORATION ENGINEER 11/04/2023 11:05 PM OIL EXPLORATION ENGINEER Devin Dougherty MD LABORATORY Performing Organization Address [facility] Co de Phone Number [address] [address] * ED US CRITICAL CARE (11/04/2023 10:40 PM OIL EXPLORATION ENGINEER) Anatomical Region Laterality Modality Ultrasound Narrative 11/04/2023 11:28 PM OIL EXPLORATION ENGINEER ED Trauma eFAST Ultrasound Indications: Suspicion [...] Advance Directives For more information, please contact: [phone] Latest Code Status on File Code Status [...] Code Status With Whom? Patient Care Teams Nitro Worker Relationship Specialty Start Date End Date Eloise Reeves DO [address] [place] [address] PCP - General Family Medicine 11/06/23
--- OUTSIDE RECORDS SUMMARY | 2023-12-11 18:31 | XMS_ITS | Clinical Summary ---
Author Name Unknown Organization [facility] Address [address] [place] [phone] Phone Care Team Providers Care Deblocker Name Role Phone Eloise Reeves DO Primary Care Provider Source Comments [facility] [facility] [employer] is fully rolled out on [employer]. Last update 04/02/09.[facility] Allergies Active Allergy Reactions Criticality Noted Date [...] Department Care Team Description 11/27/2023 1:00 PM AERONAUTICAL ENGINEERING TECHNOLOGIST [facility] [address] [place] [address] [id number] Leidy Velazquez PA-C Mild traumatic brain injury, [...] Department [place] Unknown, Provider 11/04/2023 10:39 PM AERONAUTICAL ENGINEERING TECHNOLOGIST - 11/16/2023 9:19 AM AERONAUTICAL ENGINEERING TECHNOLOGIST Hospital Encounter [facility] Surgery/Trauma/Kimmie ro [address] [place] [address] Devin Dougherty MD Petrun, Branden, MD [place], [...] Comments Blood Pressure 108/71 11/27/2023 12:54 PM AERONAUTICAL ENGINEERING TECHNOLOGIST Pulse 74 11/27/2023 12:54 PM AERONAUTICAL ENGINEERING TECHNOLOGIST Temperature 36.6 ??C (97.8 ??F) 11/16/2023 4:25 AM CS T Respiratory Rate 16 11/16/2023 4:25 AM AERONAUTICAL ENGINEERING TECHNOLOGIST Oxygen Saturation 90% 11/16/2023 4:25 AM AERONAUTICAL ENGINEERING TECHNOLOGIST Inhaled Oxygen Concentration - - Weight 61.6 kg (135 lb 12.8 oz) 024 12:54 PM AERONAUTICAL ENGINEERING TECHNOLOGIST Height 147.3 cm (4' 10) 11/05/2023 12: 03 AM AERONAUTICAL ENGINEERING TECHNOLOGIST Body Mass Index 28.38 11/05/2023 12:03 AM AERONAUTICAL ENGINEERING TECHNOLOGIST Plan of Treatment Health Maintenance Due Date [...] BASIC METABOLIC (BMP) Routine 11/16/2023 7:22 AM AERONAUTICAL ENGINEERING TECHNOLOGIST POC GLUCOSE Routine 11/16/2023 6:58 AM AERONAUTICAL ENGINEERING TECHNOLOGIST POC GLUCOSE Routine 11/15/2023 9:15 PM AERONAUTICAL ENGINEERING TECHNOLOGIST POC GLUCOSE Routine 11/15/2023 4:09 PM AERONAUTICAL ENGINEERING TECHNOLOGIST POC GLUCOSE Routine 11/15/2023 12:46 PM AERONAUTICAL ENGINEERING TECHNOLOGIST PANEL BASIC METABOLIC (BMP) Routine 11/15/2023 7:39 AM AERONAUTICAL ENGINEERING TECHNOLOGIST POC GLUCOSE Routine 11/15/2023 6:11 AM AERONAUTICAL ENGINEERING TECHNOLOGIST POC GLUCOSE Routine 11/14/2023 9:02 PM AERONAUTICAL ENGINEERING TECHNOLOGIST POC GLUCOSE Routine 11/14/2023 4:21 PM AERONAUTICAL ENGINEERING TECHNOLOGIST POC GLUCOSE Routine 11/14/2023 12:19 PM AERONAUTICAL ENGINEERING TECHNOLOGIST PANEL BASIC METABOLIC (BMP) Routine 11/14/2023 8:59 AM AERONAUTICAL ENGINEERING TECHNOLOGIST POC GLUCOSE Routine 11/14/2023 8:11 AM AERONAUTICAL ENGINEERING TECHNOLOGIST POC GLUCOSE Routine 11/13/2023 9:15 PM AERONAUTICAL ENGINEERING TECHNOLOGIST POC GLUCOSE Routine 11/13/2023 4:03 PM AERONAUTICAL ENGINEERING TECHNOLOGIST POC GLUCOSE Routine 11/13/2023 11:21 AM AERONAUTICAL ENGINEERING TECHNOLOGIST PANEL BASIC METABOLIC (BMP) Routine 11/13/2023 6:41 AM AERONAUTICAL ENGINEERING TECHNOLOGIST POC GLUCOSE Routine 11/13/2023 6:31 AM AERONAUTICAL ENGINEERING TECHNOLOGIST POC GLUCOSE Routine 11/12/2023 9:21 PM AERONAUTICAL ENGINEERING TECHNOLOGIST POC GLUCOSE Routine 11/12/2023 4:12 PM AERONAUTICAL ENGINEERING TECHNOLOGIST PANEL BASIC METABOLIC (BMP) Timed 11/12/2023 1:01 PM AERONAUTICAL ENGINEERING TECHNOLOGIST POC GLUCOSE Routine 11/12/2023 12:14 PM AERONAUTICAL ENGINEERING TECHNOLOGIST POC GLUCOSE Routine 11/12/2023 6:09 AM AERONAUTICAL ENGINEERING TECHNOLOGIST POC GLUCOSE Routine 11/11/2023 8:48 PM AERONAUTICAL ENGINEERING TECHNOLOGIST POC GLUCOSE Routine 11/11/2023 4:11 PM AERONAUTICAL ENGINEERING TECHNOLOGIST POC GLUCOSE Routine 11/11/2023 11:47 AM AERONAUTICAL ENGINEERING TECHNOLOGIST PHOSPHORUS Routine 11/11/2023 6:09 AM AERONAUTICAL ENGINEERING TECHNOLOGIST PANEL BASIC METABOLIC (BMP) Routine 11/11/2023 6:09 AM AERONAUTICAL ENGINEERING TECHNOLOGIST MAGNESIUM Routine 11/11/2023 6:09 AM AERONAUTICAL ENGINEERING TECHNOLOGIST TC LAB BLOOD DRAW BY VENIPUNCTURE Routine 11/11/2023 6:09 AM AERONAUTICAL ENGINEERING TECHNOLOGIST POC GLUCOSE Routine 11/10/2023 8:58 PM AERONAUTICAL ENGINEERING TECHNOLOGIST POC GLUCOSE Routine 11/10/2023 4:16 PM AERONAUTICAL ENGINEERING TECHNOLOGIST POC GLUCOSE Routine 11/10/2023 11:15 AM AERONAUTICAL ENGINEERING TECHNOLOGIST PHOSPHORUS Routine 11/10/2023 6:17 AM AERONAUTICAL ENGINEERING TECHNOLOGIST PANEL BASIC METABOLIC (BMP) Routine 11/10/2023 6:17 AM AERONAUTICAL ENGINEERING TECHNOLOGIST MAGNESIUM Routine 11/10/2023 6:17 AM AERONAUTICAL ENGINEERING TECHNOLOGIST PC LAB CBC/PLT Routine 11/10/2023 6:17 AM AERONAUTICAL ENGINEERING TECHNOLOGIST POC GLUCOSE Routine 11/09/2023 9:41 PM AERONAUTICAL ENGINEERING TECHNOLOGIST POC GLUCOSE Routine 11/09/2023 3:58 PM AERONAUTICAL ENGINEERING TECHNOLOGIST ANTI XA ASSAY LMW HEPARIN Timed 11/09/2023 2:18 PM AERONAUTICAL ENGINEERING TECHNOLOGIST POC GLUCOSE Routine 11/09/2023 11:28 AM AERONAUTICAL ENGINEERING TECHNOLOGIST XR FOOT RIGHT 3 V AP/OBL/LAT* Routine 11/09/2023 10:36 AM AERONAUTICAL ENGINEERING TECHNOLOGIST TELEMETRY STRIPS 11/09/2023 8:48 AM AERONAUTICAL ENGINEERING TECHNOLOGIST POC GLUCOSE Routine 11/09/2023 5:46 AM AERONAUTICAL ENGINEERING TECHNOLOGIST PC VALPROIC ACID LEVEL DEPAHOTE Routine 11/09/2023 5:41 AM AERONAUTICAL ENGINEERING TECHNOLOGIST PHOSPHORUS Routine 11/09/2023 5:41 AM AERONAUTICAL ENGINEERING TECHNOLOGIST PANEL BASIC METABOLIC (BMP) Routine 11/09/2023 5:41 AM AERONAUTICAL ENGINEERING TECHNOLOGIST MAGNESIUM Routine 11/09/2023 5:41 AM AERONAUTICAL ENGINEERING TECHNOLOGIST PC LAB CBC/PLT Routine 11/09/2023 5:41 AM AERONAUTICAL ENGINEERING TECHNOLOGIST TELEMETRY STRIPS 11/09/2023 1:21 AM AERONAUTICAL ENGINEERING TECHNOLOGIST POC GLUCOSE Routine 11/08/2023 8:40 PM AERONAUTICAL ENGINEERING TECHNOLOGIST TELEMETRY STRIPS 11/08/2023 7:31 PM AERONAUTICAL ENGINEERING TECHNOLOGIST PHOSPHORUS Routine 11/08/2023 4:20 PM AERONAUTICAL ENGINEERING TECHNOLOGIST MAGNESIUM Routine 11/08/2023 4:20 PM AERONAUTICAL ENGINEERING TECHNOLOGIST PANEL BASIC METABOLIC (BMP) Routine 11/08/2023 4:20 PM AERONAUTICAL ENGINEERING TECHNOLOGIST TC LAB BLOOD DRAW BY VENIPUNCTURE Routine 11/08/2023 4:20 PM AERONAUTICAL ENGINEERING TECHNOLOGIST POC GLUCOSE Routine 11/08/2023 3:56 PM AERONAUTICAL ENGINEERING TECHNOLOGIST POC GLUCOSE Routine 11/08/2023 11:03 AM AERONAUTICAL ENGINEERING TECHNOLOGIST TELEMETRY STRIPS 11/08/2023 9:49 AM AERONAUTICAL ENGINEERING TECHNOLOGIST XR CHEST 1 VIEW AP OR PA* Routine 11/08/2023 6:30 AM AERONAUTICAL ENGINEERING TECHNOLOGIST POC GLUCOSE Routine 11/08/2023 6:22 AM AERONAUTICAL ENGINEERING TECHNOLOGIST TELEMETRY STRIPS 11/08/2023 2:59 AM AERONAUTICAL ENGINEERING TECHNOLOGIST POC GLUCOSE Routine 11/07/2023 9:34 PM AERONAUTICAL ENGINEERING TECHNOLOGIST TELEMETRY STRIPS 11/07/2023 7:31 PM AERONAUTICAL ENGINEERING TECHNOLOGIST POC GLUCOSE Routine 11/07/2023 4:06 PM AERONAUTICAL ENGINEERING TECHNOLOGIST POC GLUCOSE Routine 11/07/2023 11:45 AM AERONAUTICAL ENGINEERING TECHNOLOGIST XR CHEST 2 VIEWS PA + LAT* Routine 11/07/2023 10:07 AM AERONAUTICAL ENGINEERING TECHNOLOGIST TELEMETRY STRIPS 11/07/2023 9:29 AM AERONAUTICAL ENGINEERING TECHNOLOGIST PC PROCALCITONIN (PCT) Routine 8:34 AM AERONAUTICAL ENGINEERING TECHNOLOGIST PC LAB CBC/PLT Routine 11/07/2023 8:34 AM AERONAUTICAL ENGINEERING TECHNOLOGIST PANEL BASIC METABOLIC (BMP) Routine 11/07/2023 8:34 AM AERONAUTICAL ENGINEERING TECHNOLOGIST MAGNESIUM Routine 11/07/2023 8:34 AM AERONAUTICAL ENGINEERING TECHNOLOGIST PHOSPHORUS Routine 11/07/2023 8:34 AM AERONAUTICAL ENGINEERING TECHNOLOGIST POC GLUCOSE Routine 11/07/2023 5:45 AM AERONAUTICAL ENGINEERING TECHNOLOGIST TELEMETRY STRIPS 11/07/2023 1:07 AM AERONAUTICAL ENGINEERING TECHNOLOGIST POC GLUCOSE Routine 11/06/2023 9:21 PM AERONAUTICAL ENGINEERING TECHNOLOGIST TELEMETRY STRIPS 11/06/2023 4:28 PM AERONAUTICAL ENGINEERING TECHNOLOGIST PC GASES,BLOOD,ANY COMB OF PH,PCD2,PO2,CO2,HCO2 Routine 11/06/2023 1:06 PM AERONAUTICAL ENGINEERING TECHNOLOGIST MAGNESIUM Timed 11/06/2023 1:06 PM AERONAUTICAL ENGINEERING TECHNOLOGIST PHOSPHORUS Timed 11/06/2023 1:06 PM AERONAUTICAL ENGINEERING TECHNOLOGIST PANEL BASIC METABOLIC (BMP) Timed 11/06/2023 1:06 PM AERONAUTICAL ENGINEERING TECHNOLOGIST PC LAB CBC/PLT Timed 11/06/2023 1:06 PM AERONAUTICAL ENGINEERING TECHNOLOGIST POC GLUCOSE Routine 11/06/2023 1:04 PM AERONAUTICAL ENGINEERING TECHNOLOGIST POC GLUCOSE Routine 11/06/2023 10:49 AM AERONAUTICAL ENGINEERING TECHNOLOGIST TELEMETRY STRIPS 11/06/2023 8:49 AM AERONAUTICAL ENGINEERING TECHNOLOGIST PC LAB GLYCOSYLATED HGB Routine 11/06/2023 6:31 AM AERONAUTICAL ENGINEERING TECHNOLOGIST PROTHROMBIN (PT) & INR Timed 6:31 AM AERONAUTICAL ENGINEERING TECHNOLOGIST PC PHOSPHORUS INORGANIC(PHOSPHATE) Routine 11/06/2023 6:31 AM AERONAUTICAL ENGINEERING TECHNOLOGIST PC MAGNESIUM, SERUM Routine 11/06/2023 6 :31 AM AERONAUTICAL ENGINEERING TECHNOLOGIST PC LAB CBC/PLT Routine 11/06/2023 6:31 AM AERONAUTICAL ENGINEERING TECHNOLOGIST TC LAB BLOOD DRAW BY VENIPUNCTURE Routine 11/06/2023 6:31 AM AERONAUTICAL ENGINEERING TECHNOLOGIST POC GLUCOSE Routine 11/06/2023 5:39 AM AERONAUTICAL ENGINEERING TECHNOLOGIST TELEMETRY STRIPS 11/06/2023 1:52 AM AERONAUTICAL ENGINEERING TECHNOLOGIST POC GLUCOSE Routine 11/05/2023 4:54 PM AERONAUTICAL ENGINEERING TECHNOLOGIST MAGNESIUM Routine 11/05/2023 4:48 PM AERONAUTICAL ENGINEERING TECHNOLOGIST POTASSIUM Routine 11/05/2023 4:48 [address]ICAL ENG[address]ERING TECH[address] CT HEAD NO IV CONTRAST Timed 11:44 AM AERONAUTICAL ENGINEERING TECHNOLOGIST POC GLUCOSE Routine 11/05/2023 11:11 AM AERONAUTICAL ENGINEERING TECHNOLOGIST TELEMETRY STRIPS 11/05/2023 9:25 AM AERONAUTICAL ENGINEERING TECHNOLOGIST EKG ADULT (12-LEAD) Routine 11/05/2023 6 :38 AM AERONAUTICAL ENGINEERING TECHNOLOGIST POC GLUCOSE Routine 11/05/2023 6:07 AM AERONAUTICAL ENGINEERING TECHNOLOGIST CT HEAD NO IV CONTRAST Timed 4:54 AM AERONAUTICAL ENGINEERING TECHNOLOGIST PROTHROMBIN (PT) & INR Timed 4:27 AM AERONAUTICAL ENGINEERING TECHNOLOGIST PC PHOSPHORUS INORGANIC(PHOSPHATE) Routine 11/05/2023 4:27 AM AERONAUTICAL ENGINEERING TECHNOLOGIST PC MAGNESIUM, SERUM Routine 11/05/2023 4 :27 AM AERONAUTICAL ENGINEERING TECHNOLOGIST PC GASES,BLOOD,ANY COMB OF PH,PCD2,PO2,CO2,HCO2 Routine 11/05/2023 4:27 AM AERONAUTICAL ENGINEERING TECHNOLOGIST PC LAB CBC/PLT Routine 11/05/2023 4:27 AM AERONAUTICAL ENGINEERING TECHNOLOGIST TC LAB BLOOD DRAW BY VENIPUNCTURE Routine 11/05/2023 4:27 AM AERONAUTICAL ENGINEERING TECHNOLOGIST PC TROPONIN QUANTITATIVE Timed 11/05/2023 4:27 AM AERONAUTICAL ENGINEERING TECHNOLOGIST PC TROPONIN QUANTITATIVE Timed 11/05/2023 2:58 AM AERONAUTICAL ENGINEERING TECHNOLOGIST CK, TOTAL STAT 11/05/2023 1:32 AM AERONAUTICAL ENGINEERING TECHNOLOGIST FIBRINOGEN STAT 11/05/2023 1:32 AM AERONAUTICAL ENGINEERING TECHNOLOGIST PC LAB PTT STAT 11/05/2023 1:32 AM AERONAUTICAL ENGINEERING TECHNOLOGIST PANEL HEPATIC FUNCTION STAT 1:32 AM AERONAUTICAL ENGINEERING TECHNOLOGIST PC LAB CBC/PLT STAT 11/05/2023 1:32 AM AERONAUTICAL ENGINEERING TECHNOLOGIST PANEL BASIC METABOLIC (BMP) STAT 11/05/2023 1:32 AM AERONAUTICAL ENGINEERING TECHNOLOGIST MAGNESIUM STAT 11/05/2023 1:32 AM AERONAUTICAL ENGINEERING TECHNOLOGIST PHOSPHORUS STAT 11/05/2023 1:32 AM AERONAUTICAL ENGINEERING TECHNOLOGIST PROTHROMBIN (PT) & INR STAT 1:32 AM AERONAUTICAL ENGINEERING TECHNOLOGIST PC IONIZED,CALCIUM STAT 11/05/2023 1: 18 AM AERONAUTICAL ENGINEERING TECHNOLOGIST PC LACTATE (LACTIC ACID) STAT 11/05/2023 1:18 AM AERONAUTICAL ENGINEERING TECHNOLOGIST PC GASES,BLOOD,ANY COMB OF PH,PCD2,PO2,CO2,HCO2 STAT 11/05/2023 1:18 AM AERONAUTICAL ENGINEERING TECHNOLOGIST PC TROPONIN QUANTITATIVE Timed 11/05/2023 1:18 AM AERONAUTICAL ENGINEERING TECHNOLOGIST CT HEAD-NECK - ANGIO - W/IV CON STAT 11/05/2023 12:09 AM AERONAUTICAL ENGINEERING TECHNOLOGIST PC LAB COMPLETE UA STAT 11/04/2023 11 :55 PM AERONAUTICAL ENGINEERING TECHNOLOGIST PF INSERT CATH,ART,PERCUT,SANTA ERM Routine 11/04/2023 11:43 PM AERONAUTICAL ENGINEERING TECHNOLOGIST ED EKG (12-LEAD) Routine 11/04/2023 11:2 5 [address]ICAL ENGINEERING TE[address]IST CT SPINE LUMBAR NO IV CON STAT 11/04/2023 11:05 PM AERONAUTICAL ENGINEERING TECHNOLOGIST CT SPINE THORACIC NO IV CON STAT 11/04/2023 11:05 PM AERONAUTICAL ENGINEERING TECHNOLOGIST CT CHEST/ABD/PELVIS W/IV CONT STAT 11/04/2023 11:05 PM AERONAUTICAL ENGINEERING TECHNOLOGIST CT SPINE CERVICAL NO IV CON STAT 11/04/2023 11:05 PM AERONAUTICAL ENGINEERING TECHNOLOGIST CT HEAD NO IV CONTRAST STAT 11:05 PM AERONAUTICAL ENGINEERING TECHNOLOGIST XR CHEST 1 VIEW AP OR PA* STAT 11/04/2023 10:57 PM AERONAUTICAL ENGINEERING TECHNOLOGIST TC LAB ER STAT TOTAL HGB STAT 11/04/2023 10:48 PM AERONAUTICAL ENGINEERING TECHNOLOGIST PC ELECTROLYTES PANEL STAT 11/04/2023 10:48 PM AERONAUTICAL ENGINEERING TECHNOLOGIST PC HEPARIN ASSAY STAT 11/04/2023 10:4 5 PM AERONAUTICAL ENGINEERING TECHNOLOGIST EXTRA TUBE - SST Routine 11/04/2023 10:4 5 PM AERONAUTICAL ENGINEERING TECHNOLOGIST TC LAB BLOOD DRAW BY VENIPUNCTURE Routine 11/04/2023 10:45 PM AERONAUTICAL ENGINEERING TECHNOLOGIST PC TROPONIN QUANTITATIVE STAT 11/04/2023 10:45 PM AERONAUTICAL ENGINEERING TECHNOLOGIST PC LAB PTT STAT 11/04/2023 10:45 PM AERONAUTICAL ENGINEERING TECHNOLOGIST PC LAB ED INR STAT 11/04/2023 10:45 PM AERONAUTICAL ENGINEERING TECHNOLOGIST PRECAUTIONARY TUBE STAT 11/04/2023 10 :45 PM AERONAUTICAL ENGINEERING TECHNOLOGIST PC LACTATE (LACTIC ACID) STAT 11/04/2023 10:45 PM AERONAUTICAL ENGINEERING TECHNOLOGIST FIBRINOGEN STAT 11/04/2023 10:45 PM AERONAUTICAL ENGINEERING TECHNOLOGIST PC LAB CBC W/DIFF & PLT STAT 11/04/2023 10:45 PM AERONAUTICAL ENGINEERING TECHNOLOGIST PC GASES,BLOOD,ANY COMB OF PH,PCD2,PO2,CO2,HCO2 STAT 11/04/2023 10:45 PM AERONAUTICAL ENGINEERING TECHNOLOGIST ED US CRITICAL CARE STAT 11/04/2023 1 0:40 PM AERONAUTICAL ENGINEERING TECHNOLOGIST PANEL LIPID Routine 10/10/2021 11:08 AM AERONAUTICAL ENGINEERING TECHNOLOGIST from Last 3 Months or Most Recently Relevant to Health Maintenance Results * (ABNORMAL) PANEL BASIC METABOLIC (BMP) (11/16/2023 7:22 AM AERONAUTICAL ENGINEERING TECHNOLOGIST) Only the most recent of12 resultswithin the time period is included. Sodium 143 135 - 148 mEq/L [facility] Potassium 3.9 3.5 - 5.3 mEq/L [facility] Chloride 105 92 - 108 mEq/L [facility] CO2 27 22 - 30 mEq/L [facility] AnGap 11 8 - 16 mEq/L [facility] Glucose 87 70 - 100 mg/dL [facility] BUN 23 8 - 23 mg/dL [facility] Creatinine 1.19(H) 0.50 - 1.00 mg/dL [facility] Calcium 9.4 8.8 - 10.2 mg/dL [facility] eGFR (2020 CKD-EPI) 46(L) >=60 ml/min/1.7 3m2 [facility] Comment: The estimated glomerular filtration rate (eGFR) was calculated using the CKD-EPI 2020 creatinine equation, which does not include race as a factor. This equation is validated in individuals 18 years of age and older, and eGFR is normalized to a body surface area of 1.73m^2. Blood 11/16/2023 7:22 AM AERONAUTICAL ENGINEERING TECHNOLOGIST 11/16/2023 7:43 AM AERONAUTICAL ENGINEERING TECHNOLOGIST Jesusita Aiken PRINTING SIGN MACHINE OPERATOR, TERRAZZO TILE SETTER LABORATO RY Performing Organization Address City/[facility]/[place] [address] * POC GLUCOSE (11/16/2023 6:58 AM AERONAUTICAL ENGINEERING TECHNOLOGIST) Only the most recent of42 resultswithin the time period is included. POC Glucose 84 70 - 100 mg/dL [facility] Blood 11/16/2023 6:58 AM AERONAUTICAL ENGINEERING TECHNOLOGIST Devin Dougherty MD LABORATORY Performing Organization Address City/[facility] Co de Phone Number [facility] [address] [place] [address], * PHOSPHORUS (11/11/2023 6:09 AM AERONAUTICAL ENGINEERING TECHNOLOGIST) Only the most recent of7 resultswithin the time period is included. Phosphorus 3.5 2.5 - 4.5 mg/dL [facility] Blood 11/11/2023 6:09 AM AERONAUTICAL ENGINEERING TECHNOLOGIST 11/11/2023 6:36 AM AERONAUTICAL ENGINEERING TECHNOLOGIST Quinn Covarrubias MD LABORATORY Performing Organization Address City/[facility]/ZIP Co de Phone Number [facility] [address] [address] * MAGNESIUM (11/11/2023 6:09 AM AERONAUTICAL ENGINEERING TECHNOLOGIST) Only the most recent of8 resultswithin the time period is included. Magnesium 2.2 1.6 - 2.4 mg/dL [facility] Blood 11/11/2023 6:09 AM AERONAUTICAL ENGINEERING TECHNOLOGIST 11/11/2023 6:36 AM AERONAUTICAL ENGINEERING TECHNOLOGIST Quinn Covarrubias MD LABORATORY Performing Organization Address [facility] Co de Phone Number [facility] [address] [address] * (ABNORMAL) CBC WITH PLATELET (11/11/2023 6:09 AM AERONAUTICAL ENGINEERING TECHNOLOGIST) Only the most recent of7 resultswithin the time period is included. [facility] WBC 5.60 4.00 - 10.00 k/cmm [facility] RBC 3.80(L) 3.90 - 5.20 m/cmm [facility] Hgb 9.5(L) 11.5 - 15.7 g/dL [facility] Hematocrit 31.4(L) 34.0 - 45.0 % [facility] MCV 82.6 80.0 - 100.0 fL [facility] MCH 25.0 25.0 - 32.0 pg [facility] MCHC 30.3(L) 31.0 - 36.0 g/dL [facility] RDW 16.1(H) 11.5 - 14.5 % [facility] Plt 275 150 - 400 k/cmm [facility] MPV 11.8 6.5 - 12.5 fL [facility] Blood 11/11/2023 6:09 AM AERONAUTICAL ENGINEERING TECHNOLOGIST 11/11/2023 6:36 AM AERONAUTICAL ENGINEERING TECHNOLOGIST Quinn Covarrubias MD LABORATORY Performing Organization Address [facility] Co de Phone Number [facility] [address] [address] * ANTI XA ASSAY LMW HEPARIN (11/09/2023 2:18 PM AERONAUTICAL ENGINEERING TECHNOLOGIST) [facility] Anti XA LMW 0.32 IU/mL [facility] Comment: Anti Xa Assay LMW Heparin Therapeutic Ranges: 0.4-1.1 IU/mL for twice daily 1.0-2.0 IU/mL for once daily Blood 11/09/2023 2:18 PM AERONAUTICAL ENGINEERING TECHNOLOGIST 11/09/2023 2:29 PM AERONAUTICAL ENGINEERING TECHNOLOGIST Quinn Covarrubias MD LABORATORY [facility] [address] [address] * XR FOOT RIGHT 3 V AP/OBL/LAT* (11/09/2023 10:36 AM AERONAUTICAL ENGINEERING TECHNOLOGIST) Anatomical Region Laterality Modality Foot Computed Radiogr aphy 11/09/2023 10:4 7 AM AERONAUTICAL ENGINEERING TECHNOLOGIST Impressions 11/09/2023 10:50 AM AERONAUTICAL ENGINEERING TECHNOLOGIST Impression: No acute osseous abnormality. Generalized osteopenia. Reading Radiologist: Angela Camp Narrative 11/09/2023 10:50 AM AERONAUTICAL ENGINEERING TECHNOLOGIST Technique: XR FOOT RIGHT 3 V AP/OBL/LAT* [...] Reading Radiologist: Angela Camp Jesusita Aiken APRN, TERRAZZO TILE SETTER RAD XRAY * TELEMETRY STRIPS (11/09/2023 8:48 AM AERONAUTICAL ENGINEERING TECHNOLOGIST) Only the most recent of12 resultswithin the time period is included. Narrative 11/09/2023 8:48 AM AERONAUTICAL ENGINEERING TECHNOLOGIST Ordered by an unspecified provider. Provider Unknown RAD ECHO * (ABNORMAL) VALPROATE (DEPAKOTE) LEVEL (11/09/2023 5:41 AM AERONAUTICAL ENGINEERING TECHNOLOGIST) Valproate 31.8(L) 50.0 - 100.0 mcg/mL [facility] Blood 11/09/2023 5:41 AM AERONAUTICAL ENGINEERING TECHNOLOGIST 11/09/2023 8:19 AM AERONAUTICAL ENGINEERING TECHNOLOGIST Quinn Covarrubias MD LABORATORY [facility] [address] [place] [address] * XR CHEST 1 VIEW AP OR PA* (11/08/2023 6:30 AM AERONAUTICAL ENGINEERING TECHNOLOGIST) Only the most recent of2 resultswithin the time period is included. Anatomical Region Laterality Modality Chest Computed Radiogr aphy 11/08/2023 6:56 AM AERONAUTICAL ENGINEERING TECHNOLOGIST Impressions 11/08/2023 7:24 AM AERONAUTICAL ENGINEERING TECHNOLOGIST Impression: Stable chest. I have personally reviewed the image(s) and initial interpretation, and I agree with the findings as documented by the resident/fellow. Reading Radiologist: Ronal Hidalgo Reading Resident: Laith Berkowitz Narrative 11/08/2023 7:24 AM AERONAUTICAL ENGINEERING TECHNOLOGIST Technique: XR CHEST 1 VIEW AP OR [...] VIEWS PA + LAT* (11/07/2023 10:07 AM AERONAUTICAL ENGINEERING TECHNOLOGIST) Anatomical Region Laterality Modality Chest Computed Radiogr aphy 11/07/2023 10:0 9 AM AERONAUTICAL ENGINEERING TECHNOLOGIST Impressions 11/07/2023 10:10 AM AERONAUTICAL ENGINEERING TECHNOLOGIST Impression: New left basilar opacities with small effusion concerning for developing infection. Reading Radiologist: Phil Contreras Narrative 11/07/2023 10:10 AM AERONAUTICAL ENGINEERING TECHNOLOGIST Technique: XR CHEST 2 VIEWS PA + [...] RAD XRAY * PROCALCITONIN (11/07/2023 8:34 AM AERONAUTICAL ENGINEERING TECHNOLOGIST) Procalcitonin 0.12 ng/mL [facility] Comment: Results <0.50 ng/mL represent a low risk of severe sepsis and/or septic shock. Results >2.0 ng/mL represent a high risk of severe sepsis and/or septic shock. Blood 11/07/2023 8:34 AM AERONAUTICAL ENGINEERING TECHNOLOGIST 11/07/2023 8:40 AM AERONAUTICAL ENGINEERING TECHNOLOGIST Quinn Covarrubias MD LABORATORY [facility] [address] [id number] * (ABNORMAL) BLOOD GASES (11/06/2023 1:06 PM AERONAUTICAL ENGINEERING TECHNOLOGIST) Only the most recent of3 resultswithin the time period is included. PH Jalen 7.36 7.32 - 7.42 [facility] PCO2 Jalen 48 41 - 51 mmHG [facility] PO2 Jalen 86(H) 25 - 40 mmHG [facility] Bicarb Jalen 26 24 - 28 mEq/L [facility] O2 Sat Jalen 96 % [facility] Base Exc Jalen 1.0 -10.0 - 2.0 mEq/L [facility] Blood Venous 11/06/2023 1:06 PM AERONAUTICAL ENGINEERING TECHNOLOGIST 11/06/2023 1:10 PM AERONAUTICAL ENGINEERING TECHNOLOGIST Narrative [facility] - 11/06/2023 1:16 PM AERONAUTICAL ENGINEERING TECHNOLOGIST Draw on Room Air: No O2 LPM (liter/min) Level->4 via mask FiO2 Level: 100 Quinn Covarrubias MD LABORATORY Performing Organization Address [facility] de Phone Number [facility] [address] [address] * (ABNORMAL) ICU MAGNESIUM (11/06/2023 6:31 AM AERONAUTICAL ENGINEERING TECHNOLOGIST) Only the most recent of2 resultswithin the time period is included. Magnesium 2.5(H) 1.6 - 2.4 mg/dL [facility] Blood 11/06/2023 6:31 AM AERONAUTICAL ENGINEERING TECHNOLOGIST 11/06/2023 7:37 AM AERONAUTICAL ENGINEERING TECHNOLOGIST Devin Dougherty MD LABORATORY Performing Organization Address [facility] de Phone Number [facility] [address] [address] * ICU PHOSPHORUS (11/06/2023 6:31 AM AERONAUTICAL ENGINEERING TECHNOLOGIST) Only the most recent of2 resultswithin the time period is included. Phosphorus 4.1 2.5 - 4.5 mg/dL [facility] Blood 11/06/2023 6:31 AM AERONAUTICAL ENGINEERING TECHNOLOGIST 11/06/2023 7:37 AM AERONAUTICAL ENGINEERING TECHNOLOGIST Devin Dougherty MD LABORATORY Performing Organization Address [facility] de Phone Number [facility] [address] [address] * (ABNORMAL) ICU CBC WITH PLATELET (11/06/2023 6:31 AM AERONAUTICAL ENGINEERING TECHNOLOGIST) Only the most recent of2 resultswithin the time period is included. WBC 9.06 4.00 - 10.00 k/cmm [facility] RBC 3.77(L) 3.90 - 5.20 m/cmm [facility] Hgb 9.6(L) 11.5 - 15.7 g/dL [facility] Hematocrit 30.8(L) 34.0 - 45.0 % [facility] MCV 81.7 80.0 - 100.0 fL [facility] MCH 25.5 25.0 - 32.0 pg [facility] MCHC 31.2 31.0 - 36.0 g/dL [facility] RDW 15.9(H) 11.5 - 14.5 % [facility] Plt 284 150 - 400 k/cmm [facility] MPV 12.1 6.5 - 12.5 fL [facility] Blood 11/06/2023 6:31 AM AERONAUTICAL ENGINEERING TECHNOLOGIST 11/06/2023 7:37 AM AERONAUTICAL ENGINEERING TECHNOLOGIST Devin Dougherty MD LABORATORY [facility] [address] [address] * (ABNORMAL) ICU PANEL BASIC METABOLIC (BMP) (11/06/2023 6:31 AM AERONAUTICAL ENGINEERING TECHNOLOGIST) Only the most recent of2 resultswithin the time period is included. Sodium 142 135 - 148 mEq/L [facility] Potassium 3.7 3.5 - 5.3 mEq/L [facility] Chloride 107 92 - 108 mEq/L [facility] CO2 26 22 - 30 mEq/L [facility] AnGap 9 8 - 16 mEq/L [facility] Glucose 148(H) 70 - 100 mg/dL [facility] BUN 12 8 - 23 mg/dL [facility] Creatinine 0.77 0.50 - 1.00 mg/dL [facility] Calcium 8.7(L) 8.8 - 10.2 mg/dL [facility] eGFR (2020 CKD-EPI) 77 >=60 ml/min/1.7 3m2 [facility] Comment: The estimated glomerular filtration rate (eGFR) was calculated using the CKD-EPI 2020 creatinine equation, which does not include race as a factor. This equation is validated in individuals 18 years of age and older, and eGFR is normalized to a body surface area of 1.73m^2. Blood 11/06/2023 6:31 AM AERONAUTICAL ENGINEERING TECHNOLOGIST 11/06/2023 7:37 AM AERONAUTICAL ENGINEERING TECHNOLOGIST Devin Dougherty MD LABORATORY Performing Organization Address City/[facility] Co de Phone Number [facility] [address] [address] * PROTHROMBIN (PT) & INR (11/06/2023 6:31 AM AERONAUTICAL ENGINEERING TECHNOLOGIST) Only the most recent of3 resultswithin the time period is included. PT 11.4 9.0 - 12.5 sec [facility] INR 1.0 0.8 - 1.1 [facility] Comment: Warfarin Therapeutic Range: Standard Intensity: 2.0 - 3.0 High Intensity: 2.5 - 3.5 Blood 11/06/2023 6:31 AM AERONAUTICAL ENGINEERING TECHNOLOGIST 11/06/2023 7:37 AM AERONAUTICAL ENGINEERING TECHNOLOGIST Quinn Covarrubias MD LABORATORY Performing Organization Address [facility] de Phone Number [address] [address] * (ABNORMAL) GLYCOSYLATED HGB - A1C (11/06/2023 6:31 AM AERONAUTICAL ENGINEERING TECHNOLOGIST) Hemoglobin A1C 8.1(H) 4.0 - 5.6 % [facility] Comment: Increased risk for diabetes (prediabetes): 5.7-6.4% Diabetes: greater than or equal to 6.5% * * In the absence of unequivocal hyperglycemia, diagnosis requires two abnormal test results (i.e. HbA1c and glucose) or two abnormal results from specimens collected at two different timepoints. Estimated Average Glucose 186(H) 68 - 114 [facility] Comment: The ADA recommends reporting an estimated Average Glucose (eAG) with all hemoglobin A1c results using the equation derived from a study of 501 normal diabetic adults. Minority populations were underrepresented and children were not included. The EAG is not equivalent to a fasting glucose. Blood 11/06/2023 6:31 AM AERONAUTICAL ENGINEERING TECHNOLOGIST 11/06/2023 11:28 AM AERONAUTICAL ENGINEERING TECHNOLOGIST Quinn Covarrubias MD LABORATORY Performing Organization Address [facility] Co de Phone Number [address] [address] * (ABNORMAL) POTASSIUM (11/05/2023 4:48 PM AERONAUTICAL ENGINEERING TECHNOLOGIST) Potassium 3.2(L) 3.5 - 5.3 mEq/L [facility] Blood 11/05/2023 4:48 PM AERONAUTICAL ENGINEERING TECHNOLOGIST 11/05/2023 4:58 PM AERONAUTICAL ENGINEERING TECHNOLOGIST Quinn Covarrubias MD LABORATORY [facility] [address] [place] [address] * CT HEAD NO IV CONTRAST (11/05/2023 11:44 AM AERONAUTICAL ENGINEERING TECHNOLOGIST) Only the most recent of3 resultswithin the time period is included. Anatomical Region Laterality Modality Skull Computed Tomogra phy 11/05/2023 12:1 6 PM AERONAUTICAL ENGINEERING TECHNOLOGIST Impressions 11/05/2023 12:38 PM AERONAUTICAL ENGINEERING TECHNOLOGIST Impression: Stable head CT as compared to the study performed 7 hours earlier. Intra-axial and extra-axial hemorrhage(s) without midline shift or hydrocephalus. The basal cisterns are patent. Reading Radiologist: Ford Fernández Narrative 11/05/2023 12:38 PM AERONAUTICAL ENGINEERING TECHNOLOGIST Exam: Head CT without contrast, 11/05/2023 Indication: [...] * EKG ADULT (12-LEAD) (11/05/2023 6:38 AM AERONAUTICAL ENGINEERING TECHNOLOGIST) 11/05/2023 6:38 AM AERONAUTICAL ENGINEERING TECHNOLOGIST Impressions [facility] EKG ORDERS - 11/05/2023 6:38 AM AERONAUTICAL ENGINEERING TECHNOLOGIST SINUS RHYTHM RIGHT BUNDLE BRANCH BLOCK ??[120+ ms QRS DURATION, UPRIGHT V1, 40+ ms S IN I/aVL/V4/V5/V6] ABNORMAL ECG P-R Interval 151 ms QRS Interval 128 ms QT Interval 420 ms QTC Interval 462 ms P Wenona 9 QRS Wenona 27 T Wave [place] 70 Narrative Procedure Note Lauren Mills MD - 11/06/2023 IMPRESSION SINUS RHYTHM RIGHT BUNDLE BRANCH BLOCK [120+ ms QRS DURATION, UPRIGHT V1, 40+ ms S INI/aVL/V4/V5/V6] ABNORMAL ECG P-R Interval 151 ms QRS Interval 128 ms QT Interval 420 ms QTC Interval 462 ms P [place]ona 9 QRS [place] 27 T Wave [place] 70 Quinn Covarrubias MD EKG Performing Organization Address City/[facility]/ZIP Co de Phone Number [facility] * (ABNORMAL) ICU BLOOD GAS (11/05/2023 4:27 AM AERONAUTICAL ENGINEERING TECHNOLOGIST) PH Art 7.38 7.35 - 7.45 [facility] PCO2 Art 42 35 - 45 mmHG [facility] PO2 Art 99(H) 75 - 85 mmHG [facility] Bicarb Art 25 22 - 26 mEq/L [facility] O2 Sat Art 98 96 - 99 % [facility] Base Exc Art 0.0 -10.0 - 2.0 mEq/L [facility] Blood Arterial 11/05/2023 4: 27 AM AERONAUTICAL ENGINEERING TECHNOLOGIST 11/05/2023 4:34 AM AERONAUTICAL ENGINEERING TECHNOLOGIST Devin Dougherty MD LABORATORY [facility] [address] [address] * (ABNORMAL) TROP 6H (11/05/2023 4:27 AM AERONAUTICAL ENGINEERING TECHNOLOGIST) 6H Trop 51(H) <=14 ng/L [facility] 6H Delta Significan t(A) Not Significant [facility] Blood 11/05/2023 4:27 AM AERONAUTICAL ENGINEERING TECHNOLOGIST 11/05/2023 4:35 AM AERONAUTICAL ENGINEERING TECHNOLOGIST Devin Dougherty MD LABORATORY Performing Organization Address [facility] Co de Phone Number [facility] [address] [address] * (ABNORMAL) TROP 4H (11/05/2023 2:58 AM AERONAUTICAL ENGINEERING TECHNOLOGIST) 4H Trop 39(H) <=14 ng/L [facility] 4H Delta Significan t(A) Not Significant [facility] Blood 11/05/2023 2:58 AM AERONAUTICAL ENGINEERING TECHNOLOGIST 11/05/2023 3:48 AM AERONAUTICAL ENGINEERING TECHNOLOGIST Devin Dougherty MD LABORATORY Performing Organization Address [facility] de Phone Number [facility] [address] [address] * (ABNORMAL) PANEL HEPATIC FUNCTION (11/05/2023 1:32 AM AERONAUTICAL ENGINEERING TECHNOLOGIST) Alk Phos 111(H) 35 - 104 IU/L [facility] Total Protein 6.5 6.4 - 8.3 g/dL [facility] Bili Direct na <=0.3 mg/dL [facility] Comment:Direct Bilirubin = < 0.2. Accuracy of result suspect due to lipemia. Albumin 3.8 3.8 - 5.1 g/dL [facility] Bili Total <0.2 <=1.2 mg/dL [facility] ALT (SGPT) na <=33 [facility] Comment:ALT = 15. Accuracy o f result suspect due to lipemia. AST(SGOT) na 5 - 40 [facility] Comment:AST = 27. Accuracy o f result suspect due to lipemia. Blood 11/05/2023 1:32 AM AERONAUTICAL ENGINEERING TECHNOLOGIST 11/05/2023 1:32 AM AERONAUTICAL ENGINEERING TECHNOLOGIST Devin Dougherty MD LABORATORY Performing Organization Address [facility] Co de Phone Number [facility] [address] [address] * FIBRINOGEN (11/05/2023 1:32 AM AERONAUTICAL ENGINEERING TECHNOLOGIST) Only the most recent of2 resultswithin the time period is included. Fibrinogen 262 200 - 400 mg/dL [facility] Blood 11/05/2023 1:32 AM AERONAUTICAL ENGINEERING TECHNOLOGIST 11/05/2023 1:32 AM AERONAUTICAL ENGINEERING TECHNOLOGIST Devin Dougherty MD LABORATORY Performing Organization Address [facility] de Phone Number [facility] [address] [address] * CK, TOTAL (11/05/2023 1:32 AM AERONAUTICAL ENGINEERING TECHNOLOGIST) CK 56 26 - 192 IU/L [facility] Blood 11/05/2023 1:32 AM AERONAUTICAL ENGINEERING TECHNOLOGIST 11/05/2023 1:32 AM AERONAUTICAL ENGINEERING TECHNOLOGIST Devin Dougherty MD LABORATORY Performing Organization Address [facility] de Phone Number [facility] [address] [address] * PTT (APTT) (11/05/2023 1:32 AM AERONAUTICAL ENGINEERING TECHNOLOGIST) Only the most recent of2 resultswithin the time period is included. APTT 26.0 25.0 - 37.0 sec [facility] Blood 11/05/2023 1:32 AM AERONAUTICAL ENGINEERING TECHNOLOGIST 11/05/2023 1:32 AM AERONAUTICAL ENGINEERING TECHNOLOGIST Devin Dougherty MD LABORATORY Performing Organization Address [facility] Co de Phone Number [facility] [address] [address] * (ABNORMAL) TROP 2H (11/05/2023 1:18 AM AERONAUTICAL ENGINEERING TECHNOLOGIST) 2H Trop 18(H) <=14 ng/L [facility] 2H Delta Indeterminate Not Significant [facility] Blood 11/05/2023 1:18 AM AERONAUTICAL ENGINEERING TECHNOLOGIST 11/05/2023 1:45 AM AERONAUTICAL ENGINEERING TECHNOLOGIST Devin Dougherty MD LABORATORY Performing Organization Address [facility] Co de Phone Number [facility] [address] [address] * LACTATE (LACTIC ACID) (11/05/2023 1:18 AM AERONAUTICAL ENGINEERING TECHNOLOGIST) Only the most recent of2 resultswithin the time period is included. Lactate 1.9 0.7 - 2.1 mmol/L [facility] Blood 11/05/2023 1:18 AM AERONAUTICAL ENGINEERING TECHNOLOGIST 11/05/2023 1:27 AM AERONAUTICAL ENGINEERING TECHNOLOGIST Narrative [facility] - 11/05/2023 1:45 AM AERONAUTICAL ENGINEERING TECHNOLOGIST Send specimen on ice! Devin Dougherty MD LABORATORY Performing Organization Address [facility] Co de Phone Number [address] [address] * CALCIUM,IONIZED (11/05/2023 1:18 AM AERONAUTICAL ENGINEERING TECHNOLOGIST) PH 7.37 7.32 - 7.42 [facility] ICA, Actual 4.82 4.40 - 5.20 mg/dL [facility] ICA, pH Corrected 4.75 4.40 - 5.20 mg/dL [facility] Blood 11/05/2023 1:18 AM AERONAUTICAL ENGINEERING TECHNOLOGIST 11/05/2023 1:27 AM AERONAUTICAL ENGINEERING TECHNOLOGIST Narrative [facility] - 11/05/2023 1:44 AM AERONAUTICAL ENGINEERING TECHNOLOGIST Send specimen on ice! Devin Dougherty MD LABORATORY Performing Organization Address [facility] Co de Phone Number [address] [address] * CT HEAD-NECK - ANGIO - W/IV CON (11/05/2023 12:09 AM AERONAUTICAL ENGINEERING TECHNOLOGIST) Anatomical Region Laterality Modality Skull Computed Tomogra phy 11/05/2023 12:2 1 AM AERONAUTICAL ENGINEERING TECHNOLOGIST Impressions 11/05/2023 10:22 AM AERONAUTICAL ENGINEERING TECHNOLOGIST Impression: ?? Slightly increased size of the [...] Fernández Resident: Laith Berkowitz 11/05/2023 10:22 AM AERONAUTICAL ENGINEERING TECHNOLOGIST CT angiogram of the Head with contrast, [...] and reviewed by the Radiologist using the Swogo workstation, and these images were archived in [...] and reviewed by the Radiologist using the Swogo workstation,and these images were archived in the [...] NEURO * (ABNORMAL) URINALYSIS,TOTAL (11/04/2023 11:55 PM AERONAUTICAL ENGINEERING TECHNOLOGIST) Color COLORLESS YELLOW [facility] Appearance CLEAR CLEAR [facility] Urine Glucose 100(A) NEGATIVE mg/dL [facility] Bili UA NEGATIVE NEGATIVE [facility] Ketones NEGATIVE NEGATIVE [facility] Specific [place] 1.036(A) 1.003 - 1.030 [facility] Blood Ur NEGATIVE Neg-Trace [facility] PH Urine 7.5(H) 5.0 - 7.0 [facility] Protein Ur TRACE Neg-Trace [facility] Urobilinogen NORMAL NORMAL EU/dL [facility] Nitrite Ur NEGATIVE NEGATIVE [facility] Leuk Est NEGATIVE Neg-Trace [facility] WBC Ur 0-5 0 - 5 perHPF [facility] RBC Ur 0-3 0 - 3 perHPF [facility] SQ EPITH 0-5 0 - 5 perHPF [facility] Urinalysis Performed at: [facility] Urine 11/04/2023 11:5 5 PM AERONAUTICAL ENGINEERING TECHNOLOGIST 11/05/2023 12:03 AM AERONAUTICAL ENGINEERING TECHNOLOGIST Devin Dougherty MD LABORATORY [facility] [address] [place] [id number] * PF INSERT CATH,ART,PERCUT,SHORTTERM (11/04/2023 11:43 PM AERONAUTICAL ENGINEERING TECHNOLOGIST) Narrative Rito Graf MD - 11/04/2023 11:43 PM AERONAUTICAL ENGINEERING TECHNOLOGIST Priscilla Holcomb MD ? 11/04/2023 11:44 PM Arterial Line Performed by: Priscilla Holcomb MD Authorized by: Rito Graf MD ?? Consent: ??Consent obtained: ??Verbal ??Consent given by: ??Patient ??Risks discussed: ??Pain, bleeding and infection [place] protocol: ??Patient identity confirmed: ??Verbally with patient, [...] * ED EKG (12-LEAD) (11/04/2023 11:25 PM AERONAUTICAL ENGINEERING TECHNOLOGIST) 11/04/2023 11:2 5 PM AERONAUTICAL ENGINEERING TECHNOLOGIST Impressions [facility] EKG ORDERS - 11/04/2023 11:25 PM AERONAUTICAL ENGINEERING TECHNOLOGIST SINUS TACHYCARDIA RIGHT BUNDLE BRANCH BLOCK ??[120+ ms QRS DURATION, UPRIGHT V1, 40+ ms S IN I/aVL/V4/V5/V6] ABNORMAL ECG P-R Interval 173 ms QRS Interval 127 ms QT Interval 395 ms QTC Interval 458 ms P Wenona 57 QRS Wenona 34 T Wave Wenona 43 Narrative Procedure Note Vineet Díaz MD - 11/05/2023 IMPRESSION SINUS TACHYCARDIA RIGHT BUNDLE BRANCH BLOCK [120+ ms QRS DURATION, UPRIGHT V1, 40+ ms S INI/aVL/V4/V5/V6] ABNORMAL ECG P-R Interval 173 ms QRS Interval 127 ms QT Interval 395 ms QTC Interval 458 ms P Wenona 57 QRS [place] 34 T Wave [place] 43 Devin Dougherty MD EKG [facility] * CT SPINE THORACIC NO IV CON (11/04/2023 11:05 PM AERONAUTICAL ENGINEERING TECHNOLOGIST) Anatomical Region Laterality Modality Thoracic Spine Computed Tomogra phy 11/04/2023 11:2 3 PM AERONAUTICAL ENGINEERING TECHNOLOGIST Impressions 11/05/2023 9:22 AM AERONAUTICAL ENGINEERING TECHNOLOGIST Impression: 1. No suspected acute fracture or dislocation of the thoracic or lumbar spine. ?? 2. Xhju-bb-jsvonths lumbar spondylosis without suspected high-grade spinal canal or neural foraminal narrowing. I have personally reviewed the image(s) and initial interpretation, and I agree with the findings as documented by the resident/fellow. Reading Radiologist: Ford Fernández Resident: Laith Berkowitz 11/05/2023 9:22 AM AERONAUTICAL ENGINEERING TECHNOLOGIST Exam: Thoracic and Lumbar Spine CT Reconstructions, [...] dislocation of the thoracic or lumbarspine. 2. Krze-xs-chcxnqyp lumbar spondylosis without suspected high-grade spinalcanal or neural foraminal narrowing. I have personally reviewed the image(s) and initial interpretation, and Iagree with the findings as documented by the resident/fellow. Reading Radiologist: Ford Fernández Resident: Laith Berkowitz Devin Dougherty MD RAD CT NEURO * CT SPINE LUMBAR NO IV CON (11/04/2023 11:05 PM AERONAUTICAL ENGINEERING TECHNOLOGIST) Anatomical Region Laterality Modality Lumbar Spine Computed Tomogra phy 11/04/2023 11:2 3 PM AERONAUTICAL ENGINEERING TECHNOLOGIST Impressions 11/05/2023 9:22 AM AERONAUTICAL ENGINEERING TECHNOLOGIST Impression: 1. No suspected acute fracture or dislocation of the thoracic or lumbar spine. ?? 2. Yrmo-jw-xwujaezp lumbar spondylosis without suspected high-grade spinal canal or neural foraminal narrowing. I have personally reviewed the image(s) and initial interpretation, and I agree with the findings as documented by the resident/fellow. Reading Radiologist: Ford Fernández Resident: Laith Berkowitz Narrative 11/05/2023 9:22 AM AERONAUTICAL ENGINEERING TECHNOLOGIST Exam: Thoracic and Lumbar Spine CT Reconstructions, [...] dislocation of the thoracic or lumbarspine. 2. Wsko-bb-zdwlnhoe lumbar spondylosis without suspected high-grade spinalcanal or neural foraminal narrowing. I have personally reviewed the image(s) and initial interpretation, and Iagree with the findings as documented by the resident/fellow. Reading Radiologist: Ford Fernández Resident: Laith Berkowitz Devin Dougherty MD RAD CT NEURO * CT SPINE CERVICAL NO IV CON (11/04/2023 11:05 PM AERONAUTICAL ENGINEERING TECHNOLOGIST) Anatomical Region Laterality Modality Cervical Spine Computed Tomogra phy 11/04/2023 11:2 0 PM AERONAUTICAL ENGINEERING TECHNOLOGIST Impressions 11/05/2023 8:27 AM AERONAUTICAL ENGINEERING TECHNOLOGIST Impression: ?? 1. No acute fracture or traumatic subluxation of the cervical vertebrae. 2. Mild degenerative changes of the cervical spine without high-grade spinal canal or neural foraminal narrowing. I have personally reviewed the image(s) and initial interpretation, and I agree with the findings as documented by the resident/fellow. Reading Radiologist: Ford Fernández Resident: Laith Berkowitz Narrative 11/05/2023 8:27 AM AERONAUTICAL ENGINEERING TECHNOLOGIST Exam: Cervical spine CT without contrast, 11/04/2023 [...] spinal canal narrowing. C5-6: Mild left and lfci-xz-xuqqqftf right neural foraminal narrowing. Borderline mild spinal [...] spinal canal narrowing. C5-6: Mild left and rcmt-mg-hlhbwjhx right neural foraminal narrowing.Borderline mild spinal canal [...] CT CHEST/ABD/PELVIS W/IV CONT (11/04/2023 11:05 PM AERONAUTICAL ENGINEERING TECHNOLOGIST) Anatomical Region Laterality Modality Chest Computed Tomogra phy 11/04/2023 11:2 9 PM AERONAUTICAL ENGINEERING TECHNOLOGIST Impressions 11/05/2023 6:33 AM AERONAUTICAL ENGINEERING TECHNOLOGIST Impression: 1. No acute traumatic sequelae in [...] Resident: Laith Berkowitz Narrative 11/05/2023 6:33 AM AERONAUTICAL ENGINEERING TECHNOLOGIST Comparison: None Indication: Trauma (STAB) ?? Technique: [...] ED CHEMISTRY LABS(NA,K,CL,CO2,GLU,CREAT,CA-IONIZED,ANION GAP) (11/04/2023 10:48 PM AERONAUTICAL ENGINEERING TECHNOLOGIST) Sodium 144 135 - 148 mEq/L [facility] Chloride 106 92 - 108 mEq/L [facility] AnGap 11 8 - 16 mEq/L [facility] Glucose 234(H) 70 - 100 mg/dL [facility] ICA, Actual 4.52 4.40 - 5.20 mg/dL [facility] ICA, pH Corrected 4.51 4.40 - 5.20 mg/dL [facility] Creatinine 0.81 0.50 - 1.00 mg/dL [facility] BICARB 27(H) 22 - 26 mEq/L [facility] eGFR (2020 CKD-EPI) 73 >=60 ml/min/1.7 3m2 [facility] Comment: The estimated glomerular filtration rate (eGFR) was calculated using the CKD-EPI 2020 creatinine equation, which does not include race as a factor. This equation is validated in individuals 18 years of age and older, and eGFR is normalized to a body surface area of 1.73m^2. Potassium 2.8(AA) 3.5 - 5.3 mEq/L [facility] Comment:Critcal Result Low Blood 11/04/2023 10:4 8 PM AERONAUTICAL ENGINEERING TECHNOLOGIST 11/04/2023 10:49 PM AERONAUTICAL ENGINEERING TECHNOLOGIST Narrative [facility] - 11/04/2023 10:55 PM AERONAUTICAL ENGINEERING TECHNOLOGIST Critical value for Potassium called to and read back by Rafa Hutchins RN in ??EDSTAB 2 at 11/04/2023 22:55:31 AERONAUTICAL ENGINEERING TECHNOLOGIST by Eleni [employer]. Devin Dougherty MD LABORATORY Performing Organization Address [facility] Co de Phone Number [facility] [address] [address] * (ABNORMAL) ED HEMOGLOBIN TOTAL (ED ONLY) (11/04/2023 10:48 PM AERONAUTICAL ENGINEERING TECHNOLOGIST) [facility] Hgb 10.3(L) 11.5 - 15.7 g/dL [facility] Blood 11/04/2023 10:4 8 PM AERONAUTICAL ENGINEERING TECHNOLOGIST 11/04/2023 10:49 PM AERONAUTICAL ENGINEERING TECHNOLOGIST Devin Dougherty MD LABORATORY Performing Organization Address [facility] Co de Phone Number [address] [address] * ED INR (11/04/2023 10:45 PM AERONAUTICAL ENGINEERING TECHNOLOGIST) [facility] ED INR 1.0 0.8 - 1.1 [facility] Comment: Warfarin Therapeutic Range: Standard Intensity: 2.0 - 3.0 High Intensity: 2.5 - 3.5 Blood 11/04/2023 10:4 5 PM AERONAUTICAL ENGINEERING TECHNOLOGIST 11/04/2023 10:48 PM AERONAUTICAL ENGINEERING TECHNOLOGIST Devin Dougherty MD LABORATORY Performing Organization Address [facility] Co de Phone Number [address] [address] * EXTRA TUBE - LIGHT GREEN (11/04/2023 10:45 PM AERONAUTICAL ENGINEERING TECHNOLOGIST) Pathologist [facility] LIGHT GREEN TUBE Stored [facility] Comment:Green tubes ([place] Heparin) are stored in the lab for 3 days from the collection date. Blood 11/04/2023 10:4 5 PM AERONAUTICAL ENGINEERING TECHNOLOGIST 11/04/2023 10:50 PM AERONAUTICAL ENGINEERING TECHNOLOGIST Devin Dougherty MD LABORATORY Performing Organization Address City/[facility] Co de Phone Number [facility] [address] [address] * EXTRA TUBE - SST (11/04/2023 10:45 PM AERONAUTICAL ENGINEERING TECHNOLOGIST) SST TUBE Stored [facility] Comment:SST tubes (Serum Sep arator) are stored in the lab for 3 days from the collection date. Blood 11/04/2023 10:4 5 PM AERONAUTICAL ENGINEERING TECHNOLOGIST 11/04/2023 10:50 PM AERONAUTICAL ENGINEERING TECHNOLOGIST Devin Dougherty MD LABORATORY Performing Organization Address [facility] Co de Phone Number [facility] LAB [address] [address] * HS TROPONIN (11/04/2023 10:45 PM AERONAUTICAL ENGINEERING TECHNOLOGIST) Pathologist [facility] HS Troponin I 10 <=14 ng/L [facility] Blood 11/04/2023 10:4 5 PM AERONAUTICAL ENGINEERING TECHNOLOGIST 11/04/2023 11:05 PM AERONAUTICAL ENGINEERING TECHNOLOGIST Narrative [facility] - 11/04/2023 11:36 PM AERONAUTICAL ENGINEERING TECHNOLOGIST First Occurrence of the Troponin order is to be drawn Stat by Nursing staff on the unit. Devin Dougherty MD LABORATORY Performing Organization Address [facility] Co de Phone Number [facility] [address] [address] * (ABNORMAL) CBC WITH PLTS/AUTO DIFF (11/04/2023 10:45 PM AERONAUTICAL ENGINEERING TECHNOLOGIST) WBC 9.42 4.00 - 10.00 k/cmm [facility] RBC 3.86(L) 3.90 - 5.20 m/cmm [facility] Hgb 9.8(L) 11.5 - 15.7 g/dL [facility] Hematocrit 31.8(L) 34.0 - 45.0 % [facility] MCV 82.4 80.0 - 100.0 fL [facility] MCH 25.4 25.0 - 32.0 pg [facility] MCHC 30.8(L) 31.0 - 36.0 g/dL [facility] RDW 15.3(H) 11.5 - 14.5 % [facility] Plt 292 150 - 400 k/cmm [facility] MPV 11.1 6.5 - 12.5 fL [facility] Automated Abs Neutrophil 5.80 1.70 - 6.50 k/cmm [facility] Comment:Preliminary ANC, Fin al Result to Follow Abs Immature Granulocyte 0.07 0.00 - 0.09 k/cmm [facility] Comment:The Immature Granulo cyte Absolute count contains metamyelocytes and myelocytes. Abs Neutrophil 5.80 1.70 - 6.50 k/cmm [facility] Abs Lymphocyte 2.33 0.80 - 4.00 k/cmm [facility] Abs Monocyte 0.88 0.20 - 1.00 k/cmm [facility] Abs Eosinophil 0.27 0.00 - 0.60 k/cmm [facility] Abs Basophil 0.07 0.00 - 0.20 k/cmm [facility] Blood 11/04/2023 10:4 5 PM AERONAUTICAL ENGINEERING TECHNOLOGIST 11/04/2023 11:05 PM AERONAUTICAL ENGINEERING TECHNOLOGIST Devin Dougherty MD LABORATORY Performing Organization Address City/[facility] Co de Phone Number [facility] [address] [address] * PRECAUTIONARY TUBE (11/04/2023 10:45 PM AERONAUTICAL ENGINEERING TECHNOLOGIST) Prec Tube Precautionary Blood Bank Specimen Received. [facility] Blood 11/04/2023 10:4 5 PM AERONAUTICAL ENGINEERING TECHNOLOGIST 11/04/2023 10:52 PM AERONAUTICAL ENGINEERING TECHNOLOGIST Devin Dougherty MD LAB TRANSFUSION SER VICES Performing Organization Address City/[facility]/ZIP Co de Phone Number [facility] [address] [address] * (ABNORMAL) ANTI XA HEPARIN UNFRACTIONATED (11/04/2023 10:45 PM AERONAUTICAL ENGINEERING TECHNOLOGIST) Anti XA Hep U <0.04(L) 0.30 - 0.70 IU/mL [facility] Blood 11/04/2023 10:4 5 PM AERONAUTICAL ENGINEERING TECHNOLOGIST 11/04/2023 11:05 PM AERONAUTICAL ENGINEERING TECHNOLOGIST eDvin Dougherty MD LABORATORY [facility] [address] [address] * ED US CRITICAL CARE (11/04/2023 10:40 PM AERONAUTICAL ENGINEERING TECHNOLOGIST) Anatomical Region Laterality Modality Ultrasound Narrative 11/04/2023 11:28 PM AERONAUTICAL ENGINEERING TECHNOLOGIST ED Trauma eFAST Ultrasound Indications: Suspicion of [...] Advance Directives For more information, please contact: [phone] Latest Code Status on File Code Status [...] Code Status With Whom? Patient Care Teams Deblocker Relationship Specialty Start Date End Date Eloise Reeves DO [address] [place] [address] PCP - General Family Medicine 11/06/23
--- OUTSIDE RECORDS SUMMARY | 2023-12-11 18:31 | XMS_ITS | Encounter Summary ---
Author Name Unknown Organization [facility] Address [address] [place] [address] Phone Care Team Providers Care Circulation Sales Representative Name Role Phone Eloise Reeves DO Primary Care Provider Reason for Visit * Reason Comments Referral TBI * Consult/Test/Treat (Routine) - Closed Specialty Diagnoses / Procedures Referred By Contac t Referred To Contact Physical Medicine and Rehab / PHYSICAL MEDICINE AND REHAB Diagnoses Fall, initial encounter SDH (subdural hematoma) ([facility]) SAH (subarachnoid hemorrhage) ([facility]) Traumatic brain injury with loss of consciousness, initial encounter ([facility]) Jesusita Aiken, TAMMIE, CHIP LOFT WORKER [address] [place] [address] [facility] [address] [place] [address] Referral ID Status Reason Start Date Expiration Date Visits Re quested Visits Authorized [id number] Closed 11/08/2023 11/07/2024 1 1 Encounter Details Date Type Department Care Team (Latest Contact Info) Description 11/27/2023 1:00 PM CYBER CRIME INVESTIGATOR [facility] [address] [address] Leidy Velazquez PA-C [address] [address] Mild traumatic brain injury, with [...] Coronavirus/COVID-19? No / Unsure 11/04/2023 10:48 PM CYBER CRIME INVESTIGATOR documented as of this encounter Last Filed Vital Signs Vital Sign Reading Time Taken Comments Blood Pressure 108/71 11/27/2023 12:54 PM CYBER CRIME INVESTIGATOR Pulse 74 11/27/2023 12:54 PM CYBER CRIME INVESTIGATOR Temperature - - Respiratory Rate - - Oxygen Saturation - - Inhaled Oxygen Concentration - - Weight 61.6 kg (135 lb 12.8 oz) 024 12:54 PM CYBER CRIME INVESTIGATOR Height - - Body Mass Index 28.38 11/05/2023 12:03 AM CYBER CRIME INVESTIGATOR documented in this encounter Patient Instructions * Patient Instructions* Leidy Velazquez PA-C - 11/27/2023 1:00 PM CYBER CRIME INVESTIGATOR You were seen at [facility] for traumatic brain injury. You have been [...] you do not hear from them, call [phone] to schedule Psychiatry for mood changes, this is for evaluation and treatment recommendations that may include medication. You will need to call to schedule this appointment. Please call [phone] and inform them you have a referral [...] to your scheduled appointment by calling at [phone]. If you miss three or more appointments, [...] plan ahead. Paperwork can be faxed to [phone]. Brain Injury and Physical Medicine & Rehabilitation Contact List Lista de contactos de lesiones cerebrales traum??rochelle, medicina f??gricelda y rehabilitaci??ora Ibrahim Maskxada jenn Jim[employer]nez [employer] She[employer] Phone To Schedule Appointments Para programar citas Hadii aad dooneeyso inaad norman sameeysato They make appointments for your doctor in the TBI/PMR clinic and your therapists [phone] Staff Nurse Nicolas carney??kirti Davalos Call for questions about medications, symptoms, or paperwork issues You can fax paperwork to [phone]. [phone] Health Information Management (HIM)/Medical Records Registros medicos Ashu Holloway Contact them if you need copies of your medical records at [facility]. If you work with a [facility] they shouldcontact [facility] for their updates. You can also visit them on Blue 1. They are open Sunday-Sunday. If you need a form for Authorization to Release Health Information, you may request one at an appointment or download a form online at: [email or web address] Patient Billing/ Financial Assistance Facturaci??n Ellie Saunders/Meli duran If you have questions or problems with your medical bills. Financial assistance, insurance issues, or for more information about your medical bill. [phone] Community Resources: The [place] [facility] offers resource facilitation at [email or web address]. Online courses [...] please call the TBI nurse at . R CRIME INVESTIGATOR documented in this encounter Progress Notes * Leidy Velazquez PA-C - 11/27/2023 1:00 PM [place]ST [place], [place] [address] [place] [address]#: [id number] PATIENT: Lucinda Casas : 1940 DATE OF [...] including pre-visit review of separately obtained history, [id number] interaction performing medically appropriate physical exam, patient [...] including pre-visit review of separately obtained history, [id number] interaction performing medically appropriate physical exam, patient counseling/education, interpretation of diagnostic results, care coordination and documentation. External records reviewed through care everywhere, [facility] documentation reviewed for information regarding injury. History collected through review of records, in addition to patient report. 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
--- OUTSIDE RECORDS SUMMARY | 2023-12-11 18:33 | XMS_ITS | Encounter Summary ---
Author Name Unknown Organization [facility] Address [address] [place] [address] Phone Care Team Providers Care Exchange Operator Name Role Phone Eloise Reeves DO Primary Care Provider [phone] Encounter Details Date Type Department Care Team [...] Coronavirus/COVID-19? No / Unsure 11/04/2023 10:48 PM MARKETING CAMPAIGN ANALYST documented as of this encounter Plan of Treatment Not on file documented as of this encounter Procedures Procedure Name Priority Date/Time Associated Diagnosis Comments TELEMETRY STRIPS 11/08/2023 9:49 AM MARKETING CAMPAIGN ANALYST documented in this encounter Results * TELEMETRY STRIPS (11/08/2023 9:49 AM MARKETING CAMPAIGN ANALYST) Narrative 11/08/2023 9:49 AM MARKETING CAMPAIGN ANALYST Ordered by an unspecified provider. Provider Unknown RAD ECHO documented in this encounter Visit Diagnoses Not on filedocumented in this encounter Care Teams Exchange Operator Relationship Specialty Start Date End Date Eloise Reeves DO [address] [place] [address] PCP - General Family Medicine 11/06/23 documented as of this encounter
--- OUTSIDE RECORDS SUMMARY | 2023-12-11 18:33 | XMS_ITS | Encounter Summary ---
Author Name Unknown Organization [facility] Address [address] [place] [address] Phone Care Team Providers Care Bridge Builder Name Role Phone Eloise Reeves DO Primary [...] Coronavirus/COVID-19? No / Unsure 11/04/2023 10:48 PM SHAPER MACHINE HAND documented as of this encounter Plan of Treatment Not on file documented as of this encounter Procedures Procedure Name Priority Date/Time Associated Diagnosis Comments TELEMETRY STRIPS 11/09/2023 1:21 AM SHAPER MACHINE HAND documented in this encounter Results * TELEMETRY STRIPS (11/09/2023 1:21 AM SHAPER MACHINE HAND) Narrative 11/09/2023 1:21 AM SHAPER MACHINE HAND Ordered by an unspecified provider. Provider Unknown RAD ECHO documented in this encounter Visit Diagnoses Not on filedocumented in this encounter Care Teams Bridge Builder Relationship Specialty Start Date End Date Eloise Reeves [place] [address] [place] [address] PCP - General Family Medicine 11/06/23 documented as of this encounter
--- OUTSIDE RECORDS SUMMARY | 2023-12-11 18:33 | XMS_ITS | Encounter Summary ---
Author Name Unknown Organization [facility] Address [address] [place] [address] Phone Care Team Providers Care Machine Plaster Mixer Name Role Phone Eloise Reeves DO Primary [...] Coronavirus/COVID-19? No / Unsure 11/04/2023 10:48 PM STAFFING COORDINATOR documented as of this encounter Plan of Treatment Not on file documented as of this encounter Procedures Procedure Name Priority Date/Time Associated Diagnosis Comments TELEMETRY STRIPS 11/07/2023 9:29 AM STAFFING COORDINATOR documented in this encounter Results * TELEMETRY STRIPS (11/07/2023 9:29 AM STAFFING COORDINATOR) Narrative 11/07/2023 9:29 AM STAFFING COORDINATOR Ordered by an unspecified provider. Provider Unknown RAD ECHO documented in this encounter Visit Diagnoses Not on filedocumented in this encounter Care Teams Machine Plaster Mixer Relationship Specialty Start Date End Date Eloise Reeves DO [address] [place] [address] PCP - General Family Medicine 11/06/23 documented as of this encounter
--- OUTSIDE RECORDS SUMMARY | 2023-12-11 18:33 | XMS_ITS | Encounter Summary ---
Author Name Unknown Organization [facility] Address [address] [place] [address] Phone Care Team Providers Care Hop Separator Name Role Phone Eloise Reeves DO Primary [...] Coronavirus/COVID-19? No / Unsure 11/04/2023 10:48 PM NATURAL DEVELOPER documented as of this encounter Plan of Treatment Not on file documented as of this encounter Procedures Procedure Name Priority Date/Time Associated Diagnosis Comments TELEMETRY STRIPS 11/07/2023 1:07 AM NATURAL DEVELOPER documented in this encounter Results * TELEMETRY STRIPS (11/07/2023 1:07 AM NATURAL DEVELOPER) Narrative 11/07/2023 1:07 AM NATURAL DEVELOPER Ordered by an unspecified provider. Provider Unknown RAD ECHO documented in this encounter Visit Diagnoses Not on filedocumented in this encounter Care Teams Hop Separator Relationship Specialty Start Date End Date Eloise Reeves DO [address] [place] [address] PCP - General Family Medicine 11/06/23 documented as of this encounter
--- OUTSIDE RECORDS SUMMARY | 2023-12-11 18:33 | XMS_ITS | Encounter Summary ---
Author Name Unknown Organization [facility] Address [address] [place] [address] Phone Care Team Providers Care Court Supervisor Name Role Phone Unavailable Primary Care Provider [...] / Unsure 11/04/2023 10:48 PM DIRECTOR OF SPECIAL EDUCATION documented as of this encounter Plan of Treatment Not on file documented as of this encounter Visit Diagnoses Not on filedocumented in this encounter
--- OUTSIDE RECORDS SUMMARY | 2023-12-11 18:33 | XMS_ITS | Encounter Summary ---
Author Name Unknown Organization [facility] Address [address] [place] [address] Phone Care Team Providers Care Plastic Machine Operator Name Role Phone Eloise Reeves DO Primary Care Provider [phone] Encounter Details Date Type Department Care Team [...] Coronavirus/COVID-19? No / Unsure 11/04/2023 10:48 PM WOOL WASHER FEEDER documented as of this encounter Plan of Treatment Not on file documented as of this encounter Procedures Procedure Name Priority Date/Time Associated Diagnosis Comments TELEMETRY STRIPS 11/05/2023 9:25 AM WOOL WASHER FEEDER documented in this encounter Results * TELEMETRY STRIPS (11/05/2023 9:25 AM WOOL WASHER FEEDER) Narrative 11/05/2023 9:25 AM WOOL WASHER FEEDER Ordered by an unspecified provider. Provider Unknown RAD ECHO documented in this encounter Visit Diagnoses Not on filedocumented in this encounter Care Teams Plastic Machine Operator Relationship Specialty Start Date End Date Eloise Reeves DO [address] [place] [address] PCP - General Family Medicine 11/06/23 documented as of this encounter
--- OUTSIDE RECORDS SUMMARY | 2023-12-11 18:33 | XMS_ITS | Encounter Summary ---
Author Name Unknown Organization [facility] Address [address] [place] [address] Phone Care Team Providers Care Ocean Freight Manager Name Role Phone Eloise Reeves DO [...] Coronavirus/COVID-19? No / Unsure 11/04/2023 10:48 PM MANAGER OF CORPORATE documented as of this encounter Plan of Treatment Not on file documented as of this encounter Procedures Procedure Name Priority Date/Time Associated Diagnosis Comments TELEMETRY STRIPS 11/06/2023 4:28 PM MANAGER OF CORPORATE documented in this encounter Results * TELEMETRY STRIPS (11/06/2023 4:28 PM MANAGER OF CORPORATE) Narrative 11/06/2023 4:28 PM MANAGER OF CORPORATE Ordered by an unspecified provider. Provider Unknown RAD ECHO documented in this encounter Visit Diagnoses Not on filedocumented in this encounter Care Teams Ocean Freight Manager Relationship Specialty Start Date End Date Eloise Reeves DO [address] [place] [address] PCP - General Family Medicine 11/06/23 documented as of this encounter
--- OUTSIDE RECORDS SUMMARY | 2023-12-11 18:33 | XMS_ITS | Encounter Summary ---
Author Name Unknown Organization [facility] Address [address] [place] [address] Phone Care Team Providers Care Wood Treating Inspector Name Role Phone Eloise Reeves DO Primary [...] Coronavirus/COVID-19? No / Unsure 11/04/2023 10:48 PM VEHICLE INSURANCE AGENT documented as of this encounter Plan of Treatment Not on file documented as of this encounter Procedures Procedure Name Priority Date/Time Associated Diagnosis Comments TELEMETRY STRIPS 11/08/2023 7:31 PM VEHICLE INSURANCE AGENT documented in this encounter Results * TELEMETRY STRIPS (11/08/2023 7:31 PM VEHICLE INSURANCE AGENT) Narrative 11/08/2023 7:31 PM VEHICLE INSURANCE AGENT Ordered by an unspecified provider. Provider Unknown RAD ECHO documented in this encounter Visit Diagnoses Not on filedocumented in this encounter Care Teams Wood Treating Inspector Relationship Specialty Start Date End Date Eloise Reeves DO [address] [place] [address] PCP - General Family Medicine 11/06/23 documented as of this encounter
--- OUTSIDE RECORDS SUMMARY | 2023-12-11 18:33 | XMS_ITS | Encounter Summary ---
Author Name Unknown Organization [facility] Address [address] [place] [address] Phone Care Team Providers Care Alcohol Still Operator Name Role Phone Eloise Reeves DO [...] Coronavirus/COVID-19? No / Unsure 11/04/2023 10:48 PM SHELL ASSEMBLER documented as of this encounter Plan of Treatment Not on file documented as of this encounter Procedures Procedure Name Priority Date/Time Associated Diagnosis Comments TELEMETRY STRIPS 11/06/2023 1:52 AM SHELL ASSEMBLER documented in this encounter Results * TELEMETRY STRIPS (11/06/2023 1:52 AM SHELL ASSEMBLER) Narrative 11/06/2023 1:52 AM SHELL ASSEMBLER Ordered by an unspecified provider. Provider Unknown RAD ECHO documented in this encounter Visit Diagnoses Not on filedocumented in this encounter Care Teams Alcohol Still Operator Relationship Specialty Start Date End Date Eloise Reeves DO [address] [place] [address] PCP - General Family Medicine 11/06/23 documented as of this encounter
--- OUTSIDE RECORDS SUMMARY | 2023-12-11 18:33 | XMS_ITS | Encounter Summary ---
Author Name Unknown Organization [facility] Address [address] [place] [address] Phone Care Team Providers Care Seafood Manager Name Role Phone Eloise Reeves DO [...] Coronavirus/COVID-19? No / Unsure 11/04/2023 10:48 PM FISHING VESSEL OPERATOR documented as of this encounter Plan of Treatment Not on file documented as of this encounter Procedures Procedure Name Priority Date/Time Associated Diagnosis Comments TELEMETRY STRIPS 11/09/2023 8:48 AM FISHING VESSEL OPERATOR documented in this encounter Results * TELEMETRY STRIPS (11/09/2023 8:48 AM FISHING VESSEL OPERATOR) Narrative 11/09/2023 8:48 AM FISHING VESSEL OPERATOR Ordered by an unspecified provider. Provider Unknown RAD ECHO documented in this encounter Visit Diagnoses Not on filedocumented in this encounter Care Teams Seafood Manager Relationship Specialty Start Date End Date Eloise Reeves [address] [place] [address] PCP - General Family Medicine 11/06/23 documented as of this encounter
--- OUTSIDE RECORDS SUMMARY | 2023-12-11 18:33 | XMS_ITS | Encounter Summary ---
Author Name Unknown Organization [facility] Address [address] [place] [address] Phone Care Team Providers Care Instrument Maker And Repairer Name Role Phone Eloise Reeves DO Primary Care Provider [phone] Encounter Details Date Type Department Care Team [...] Coronavirus/COVID-19? No / Unsure 11/04/2023 10:48 PM LINE ERECTOR APPRENTICE documented as of this encounter Plan of Treatment Not on file documented as of this encounter Procedures Procedure Name Priority Date/Time Associated Diagnosis Comments TELEMETRY STRIPS 11/07/2023 7:31 PM LINE ERECTOR APPRENTICE documented in this encounter Results * TELEMETRY STRIPS (11/07/2023 7:31 PM LINE ERECTOR APPRENTICE) Narrative 11/07/2023 7:31 PM LINE ERECTOR APPRENTICE Ordered by an unspecified provider. Provider Unknown RAD ECHO documented in this encounter Visit Diagnoses Not on filedocumented in this encounter Care Teams Instrument Maker And Repairer Relationship Specialty Start Date End Date Eloise Reeves DO [address] [place] [address] PCP - General Family Medicine 11/06/23 documented as of this encounter
--- OUTSIDE RECORDS SUMMARY | 2023-12-11 18:33 | XMS_ITS | Encounter Summary ---
Author Name Unknown Organization [facility] Address [address] [place] [address] Phone Care Team Providers Care Plodding Machine Operator Name Role Phone Eloise Reeves [...] Coronavirus/COVID-19? No / Unsure 11/04/2023 10:48 PM BARMAN documented as of this encounter Plan of Treatment Not on file documented as of this encounter Procedures Procedure Name Priority Date/Time Associated Diagnosis Comments TELEMETRY STRIPS 11/06/2023 8:49 AM BARMAN documented in this encounter Results * TELEMETRY STRIPS (11/06/2023 8:49 AM BARMAN) Narrative 11/06/2023 8:49 AM BARMAN Ordered by an unspecified provider. Provider Unknown RAD ECHO documented in this encounter Visit Diagnoses Not on filedocumented in this encounter Care Teams Plodding Machine Operator Relationship Specialty Start Date End Date Eloise Reeves DO [address] [place] [address] PCP - General Family Medicine 11/06/23 documented as of this encounter
--- OUTSIDE RECORDS SUMMARY | 2023-12-11 18:33 | XMS_ITS | Encounter Summary ---
Author Name Unknown Organization [facility] Address [address] [place] [address] Phone Care Team Providers Care Inside Sales Engineer Name Role Phone Eloise Reeves DO Primary Care Provider Reason for Referral * Consult/Test/Treat (Routine) - Closed Specialty Diagnoses / Procedures Referred By Selma bhandari Referred To Contact Physical Medicine and Rehab / PHYSICAL MEDICINE AND REHAB Diagnoses Fall, initial encounter SDH (subdural hematoma) ([facility]) SAH (subarachnoid hemorrhage) ([facility]) Traumatic brain injury with loss of consciousness, initial encounter ([facility]) Jesusita Aiken APRN, TITLE ONE READING TEACHER [address] [place] [address] [facility] [address] [address] Referral ID Status Reason Start Date Expiration Date Visits Re quested Visits Authorized [id number] Closed 11/08/2023 11/07/2024 1 1 TAL COLOR PRESS OPERATOR Reason for Visit * Reason Comments Fall * Auth/Cert (Routine) Specialty Diagnoses / Procedures Referred By Contjerrod t Referred To Contact SURGERY Diagnoses SDH (subdural hematoma) ([facility]) Fall, initial encounter Tariq Bobo MD [address] [facility] [id number] [address] [place] [address] [address] [place] [address] Referral ID Status Reason Start Date Expiration Date Visits Re quested Visits Authorized [id number] 1 1 Encounter Details Date Type Department Care Team (Latest Contact Info) Description 11/04/2023 10:39 PM DIGITAL COLOR PRESS OPERATOR - 11/16/2023 9:19 AM DIGITAL COLOR PRESS OPERATOR Hospital Encounter [facility] Surgery/Trauma/Kimmie ro 2 [address] [place], [place] [id number] Devin Dougherty MD [address] [facility] [address] Quinn Covarrubias MD [address] [place] [address] Gregg Dexter MD [address] [facility] [address] [place] [address] Fall, initial encounter Discharge Disposition: [...] Coronavirus/COVID-19? No / Unsure 11/04/2023 10:48 PM DIGITAL COLOR PRESS OPERATOR documented as of this encounter Last Filed Vital Signs Vital Sign Reading Time Taken Comments Blood Pressure 148/51 11/16/2023 4:25 AM DIGITAL COLOR PRESS OPERATOR Pulse 61 11/16/2023 4:25 AM DIGITAL COLOR PRESS OPERATOR Temperature 36.6 ??C (97.8 ??F) 11/16/2023 4:25 AM CS T Respiratory Rate 16 11/16/2023 4:25 AM DIGITAL COLOR PRESS OPERATOR Oxygen Saturation 90% 11/16/2023 4:25 AM DIGITAL COLOR PRESS OPERATOR Inhaled Oxygen Concentration - - Weight 69.7 kg (153 lb 10.6 oz) 024 12:03 AM DIGITAL COLOR PRESS OPERATOR Height 147.3 cm (4' 10) 11/05/2023 12: 03 AM DIGITAL COLOR PRESS OPERATOR Body Mass Index 32.12 11/05/2023 12:03 AM DIGITAL COLOR PRESS OPERATOR documented in this encounter Discharge Summaries * [...] determined to be a good fir for [facility] inpatient acute rehab but after 1-2 weeks of therapy she wouldstill need 24/ observation. Due to her insurance it does not pay for a tcu after [place] [facility]. The family chose to discharge to [...] pale. Neurological: Mental Status: She is alert. Support Architect Needed: no PLANNED DISCHARGE ORDERS: Suture/Miguel: None [...] 4:30PM, M-F): Call the Surgery Clinic at [phone] After hours or on Holidays: Call the [facility] yeast culture operator . Ask the yeast culture operator to page the general surgery resident counter control operator. IF: -- you feel you are [...] getting larger: a pupil is the dark eastern shoshone in the center of the eye - [...] it is often helpful to return to [facility] to be evaluated. If you live far away or are in extreme distress (i.e cannot breathor won't wake up), call 911 and first responders can decide which hospital is best. If you have any questions about your or your loved one's condition after discharge, call [phone] to speak with a nurse. Please contact [...] -- Read all labels for prescription and [id number] medicines. Ask the pharmacist if your prescription [...] verbalized understanding of condition and treatment plan. Jaun Loera MD, 11/16/2023 6:54 AM FACULTY NOTE I saw and evaluated the patient on the date of the resident's note. I discussed with the resident and agree with the resident???s findings and plan documented in the resident???s note from above. Anyrevisions by me are documented. Gregg Dexter MD, 11/16/2023 8:18 AM TAL COLOR PRESS OPERATOR documented in this encounter Discharge Instructions * Discharge Instr - Speech Language Pathology* Nayeli Alvarado SLP [facility] - 11/15/2023 4:39 PM DIGITAL COLOR PRESS OPERATOR Speech-language pathologists (tap builder) assess and treat speech, language, cognition (thinking) [...] your primary Speech-Language Pathologist directly or call [phone]. Electronically signed by Nayeli Alvarado SLP [facility] at 11/15/2023 4:39 PM DIGITAL COLOR PRESS OPERATOR documented in this encounter Medications at Time [...] equipment/supplies recommended: none Final discharge destination: Subacute senior care with rehab care R: The patient and family understood the AVS. P: Support patient and family if they call back with questions. Cornell Solomon RN, 11/16/2023 9:19 AM TAL COLOR PRESS OPERATOR * Carolina Awan RN - 11/16/2023 2:30 AM CST Entered chart to leave staff to staff regarding pt's d/c ride in the AM Carolina Awan RN, 11/16/2023 2:30 AM TAL COLOR PRESS OPERATOR * Sinai Brady PA-C - 11/15/2023 3:50 [...] II, and HLD, who was admitted to [facility] 11/04/2023 after being found unconscious at the [...] address self care, ADL's, adaptive equipment Continue ACCOUNT SUPPORT ASSOCIATE to address speech, swallow, communication, cognition Regarding [...] of this note have been dictated using [employer] dictation software. Please excuse any thermoforming operator errors and feel free to contact me regarding such errors or confusion regarding intended message. Sinai Brady PA-C, CBIS Pager via Inner[employer] TAL COLOR PRESS OPERATOR * Nayeli Alvarado, ACCOUNT SUPPORT ASSOCIATE [facility] - 11/15/2023 2:49 PM CST Speech-Language Pathology Progress Note 11/15/2023 ACCOUNT SUPPORT ASSOCIATE Recommendations Discharge Recommendations (ACCOUNT SUPPORT ASSOCIATE): Post-acute placement recommended. Acute Rehab if meets admission criteria No known barriers to placement Barriers to Discharge (ACCOUNT SUPPORT ASSOCIATE): NA - Post acute placement is recommended and no barriers to placement known. Post Discharge follow-up (ACCOUNT SUPPORT ASSOCIATE): ACCOUNT SUPPORT ASSOCIATE at post-acute placement Recommend PM&R Consult (ACCOUNT SUPPORT ASSOCIATE): Yes, for assessment of post-acute placement needs. Pt appears to be a candidate for higher intensity rehab services. Diet Recommendation: Current Diet : Regular Current Liquid: Thin liquids Medication Administration: Medications with thin liquid Aspiration Precautions: Upright with all eating and drinking Oral Hygiene: [place] teeth 2x/day Positioning Techniques: Seat fully upright [...] Cognitive communication deficit R41.841, Treatment Type:Cognitive-linguistic Treatment (06705, 84759) Treatment Frequency: 2-3x per week CLINICAL IMPRESSIONS Patient presents with severe cognitive-linguistic deficits in areas of attention, working, short-term, and long-term memory, problem solving, reasoning, processing speed, and executive functioning secondary to SDH of the R>L tentorial leaflets and R cerebral convexity, scattered SAH, L periventri cular hemorrhage, and a small L frontal IPH. Ongoing tx is warranted. Speech-Language Pathologist: Nayeli Alvarado SLP [facility] 11/15/2023 2:49 PM Pager: [employer] Electronically signed by Nayeli Alvarado SLP [facility] at 11/15/2023 4:05 PM DIGITAL COLOR PRESS OPERATOR * Randy Barragan - 11/15/2023 10:27 AM CST Transportation set for patient as follows: Date and time () of patient departure: 11/16/2023 @0900 Destination: [facility] [place] [address] Type of ride: wheelchair Reference #[id number] Transportation vendor of ride: [employer] [phone] * If this ride needs to be [...] Clinical Coordinators will be informed via a TelIntrusicq page. PCS form was completed in Progress Notes and is ready to be signed and routed to vendor by requestor(for stretcher rides only). Randy Barragan, 11/15/2023 2:49 PM Patient name: Lucinda Kennedy Date of : 1940 Patient Admitting diagnosis: Patient Active Problem List Diagnosis Fall, initial encounter Attending provider: Quinn Covarrubias MD Insurance: [facility] Secondary insurance: N/A Height: Height: 147.3 cm (4' 10) Weight: Weight: 69.7 kg (153 lb 10.6 oz) TAL COLOR PRESS OPERATOR * Fide Reis - 11/15/2023 10:23 AM CST Preadmission Screening Submitter InformationPerson Being ReferredMedical InformationADL'Wadsworth HospitalSubmitResults Results Thank you for submitting a [...] help, contact the Senior LinkAge Line at [phone] or click to contact us. Print this page You have successfully submitted the preadmission screening (PAS) to the Senior LinkAge Line on: Created On 11/15/2023 10:08 AM Your confirmation number is: [id number] Results Level of Care: Based on the information you provided, it appears this person meets level of care for purposes of [place] payment. OBRA: It appears this person does not need an OBRA Level II assessment. Submitter Information Form Type PAS Submitter First and Last Name Fide Reis Direct Email [email or web address] Agency [facility] Service Type Hospital [address] [facility] [place] [address] Is your Agency outside [place]? Person Being Admitted to Nursing Facility Legal first name Lucinda Last name Kennedy Date of 1940 Age 83 Gender Female Marital Status M= living with spouse Race White - W Ethnicity / Currently living with: 02 Living with spouse/parent Planned living with 02 Living with spouse/parent Housing Type Home or apartment, including assisted living () Mailing Address [address] [place] [address] [place] [address] [facility] Medical Information Reason for nursing facility admission: [...] facility the person will admit to?Yes Provider [facility] Nursing Facility Service Type Assisted [address] If your provider is not listed [...] Phone Fax Patient Preferred Theresa Yusuf Sushil [facility] Selected Half-Way [address] [facility] [address] [phone] -- Internal Comment last updated by Bill Olivera 11/15/[address] [place] [address] offered us bed today. Working on setting up a ride. Team informed. Bill Olivera, 11/15/2023 10:01 AM Spoke with Italia. Will discuss further with her team. May likely admit tomorrow. May need prior auth. Bill Olivera, 11/15/2023 9:26 AM [facility] Considering Need clinical review N/A [address] [facility] [address] [phone] Internal Comment last updated by Fide Reis 11/14/2023 0926 Shared female .. bed .iFde Reis, 11/14/2023 9:25 AM [facility] Pending - Request Sent N/A [address] [facility] [address] Internal Comment last updated by Fide Reis 11/14/2023 0918 LVM for admissions .Fide Reis, 11/14/2023 9:18 AM [facility] Pending - Request Sent N/A [address] [facility] [phone] -- Internal Comment last updated by Fide Reis 11/14/2023 0920 LVM for Renata in admissions Rere Reissushil Johansen, 11/14/2023 9:20 AM [facility] Pending - Request Sent N/A [address] [address] [phone] Internal Comment last updated by Fide Reis 11/14/2023 0921 LVM for admissions .Savanna Reisgee Johansen, 11/14/2023 9:21 AM [facility] Pending - Request Sent N/A [address] [facility] [address] [phone] -- [facility] Pending - Request Sent N/A [address] [address] [phone] -- [facility] Pending - Request Sent N/A 9889 [facility] [address] [phone] -- [facility] Pending - Request Sent N/A 9[address] [facility] [address] -- [facility] Pending - Request Sent N/A 213 [facility] [address] [phone] -- [facility] Pending - Request Sent N/A [address] [address] [phone] -- [facility] Declined Not a TCU N/A 900 [facility] [address] [phone] Internal Comment last updated by Marycarmen Caldwell 11/09/2023 1033 Not a TCU per the [phone] phone number connected to the same address. Marycarmen Caldwell,11/09/2023 10:33 AM [facility] Declined Closed N/A [address] [facility] [address] [phone] Internal Comment last updated by Fide Reis 11/08/2023 1359 Has been closed for 1 year . Fide Reis, 11/08/2023 1:59 PM [facility] Declined No Contract with Patient's Insurance Carrier N/A 815 [facility] [address] Internal Comment last updated by Bill Olivera 11/15/2023 0840 Family doesn't want it here. Bill Olivera, 11/15/2023 8:40 AM [facility] B3.320 Declined TCU N/A [address] [place] [phone] -- Internal Comment last updated by Bill Olivera 11/09/2023 0829 PM&R continues to follow. If DC imminent, recommending TCU instead. Bill Olivera, 11/09/2023 8:29 AM Pending PMnR recs. Bill Olivera, 11/06/2023 11:04 AM [facility] Declined Facility Cannot Provide for Patient's needs N/A [address] [place] [address] [phone] -- [facility] Declined Closed N/A [address] [place] [address] [phone] -- Internal Comment last updated by Marycarmen Caldwell 11/09/2023 1034 Permanently closed [facility] Declined Family choice N/A 843 [facility] [address] [phone] -- Internal Comment last updated by Fide Reis 11/14/2023 0916 LVM for admissions. Fide Reis, 11/14/2023 9:16 AM [facility] Declined Family choice N/A 27 [facility] [address] [phone] -- [facility] Declined Family choice N/A [address] [facility] [address] [phone] -- [facility] Declined Bed not available N/A [address] [facility] [address] [phone] -- Home Medical Care Coordination has not been started for this encounter. 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 I discussed with the resident and agree with the resident???s findings and plan documented in the resident???s note from above. Anyrevisions by me are documented. Gregg Dexter MD, 11/15/2023 3:39 PM TAL COLOR PRESS OPERATOR * Gregg Dexter MD - 11/14/2023 11:58 [...] documented. Gregg Dexter MD, 11/15/2023 3:38 PM TAL COLOR PRESS OPERATOR * Sharri Price, OTR/L - 11/14/2023 11:00 [...] Functional activity: 8 minutes RAFAEL Medellin/Kelton Pager: [employer] OT Department TAL COLOR PRESS OPERATOR * Carola Spence, FABRIC WORKER FITTER - 11/14/2023 10:00 AM CST Images from [...] intensity rehab services S: We are in [place].. Well if we are in [place] I told Wan to go to the [...] Quality (General): Shuffling;Unsteady Stairs Assistive Devices Used: (PROFESSIONAL SERVICES CONSULTANT) Sitting Static Balance Level of Assistance: Upper [...] SLS) Vertical/horizontal head turns - slows requires PROFESSIONAL SERVICES CONSULTANT Amb slow/fast : no significant change achieved Education : TCU vs Acute rehab and amount of assist patient will require upon dc home which is likely general supervision Interdisciplinary Communication PA/SWATCH CUTTER: discussed patient Selector Packer: daughter wishing to discuss POA Family: present [...] transfer bed to/from chair with (6) Modified [place] with sliding board or pivot method. By 11-17-2023 Outcome: In progress Goal: Patient will transfer sit to/from stand Description: Patient will transfer sit to/from stand with (6) Modified [place] By 11-17-2023. Outcome: In progress Problem: Decreased Ambulatory Skills Goal: Improve gait Description: Ambulate 100 meters using Front - wheeled walker with (6) Modified [place] By 11-17-2023. Outcome: In progress Goal: Improve gait on stairs Description: Ascend/descend 7 +7 stairs using Cane with (6) Modified [place] .By 11-17-2023 Outcome: In progress Problem: Decreased [...] least AD, stairs for home usage daily. FABRIC WORKER FITTER Appropriate: Yes Carola Spence PTA 11/14/2023 Pager: [facility] PT Dept TAL COLOR PRESS OPERATOR * Sinai Brady PA-C - 11/14/2023 9:48 [...] II, and HLD, who was admitted to [facility] 11/04/2023 after being found unconscious at the [...] address self care, ADL's, adaptive equipment Continue ACCOUNT SUPPORT ASSOCIATE to address speech, swallow, communication, cognition Regarding [...] of this note have been dictated using [employer] dictation software. Please excuse any thermoforming operator errors and feel free to contact me regarding such errors or confusion regarding intended message. Sinai Brady PA-C, CBIS Pager via Inner[employer] Total time spent on this encounter, on the date of service including pre-visit review of separatelyobtained history, [id number]-[id number] interaction performing medically appropriate physical exam, patient counseling/education, interpretation of diagnostic results, care coordination and documentation was 50 minutes. TAL COLOR PRESS OPERATOR * Sharri Price OTR/Kelton - 11/13/2023 4:49 [...] dressing task at Min A including donning collision mechanic socks and shorts at EOB. Patient completing light g/h tasks while seated in chair bedside with s/u. 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 Acute Rehab if meets admission criteria No known barriers to placement Barriers to Discharge (ACCOUNT SUPPORT ASSOCIATE): NA - Post acute placement is recommended and no barriers to placement known. Post Discharge follow-up (ACCOUNT SUPPORT ASSOCIATE): ACCOUNT SUPPORT ASSOCIATE at post-acute placement Recommend PM&R Consult (ACCOUNT SUPPORT ASSOCIATE): Yes, for assessment of post-acute placement needs. Pt appears to be a candidate for higher intensity rehab services. Diet Recommendation: Current Diet : Regular Current Liquid: Thin liquids Medication Administration: Medications with thin liquid Aspiration Precautions: Upright with all eating and drinking Oral Hygiene: [place] teeth 2x/day Positioning Techniques: Seat fully upright [...] Cognitive communication deficit R41.841, Treatment Type:Cognitive-linguistic Treatment (60201, 07997) Treatment Frequency: 2-3x per week CLINICAL IMPRESSIONS Severe cognitive-linguistic deficits within attention, memory, problem solving, reasoning, and executive functioning. Ongoing cognitive-linguistic dx/tx is needed. Speech-Language Pathologist: Sera Fleming SLP [facility] 11/13/2023 1:14 PM Pager: Tel[employer] Electronically signed by Sera Fleming SLP [facility] at 11/13/2023 1:36 PM DIGITAL COLOR PRESS OPERATOR * Jesusita Aiken APRN, TITLE ONE READING TEACHER - 11/13/2023 8:21 AM CST SURGERY TRAUMA [...] Jesusita Aiken APRN, EMILY, 11/13/2023 11:17 AM TAL COLOR PRESS OPERATOR * Carola Spence PTA - 11/12/2023 10:30 [...] (Numeric): 0 (reports she has no pain) O:Support Architect Used: None needed Mental Status Mental Status: [...] Shuffling;Unsteady -with nonuse of gait and vs PROFESSIONAL SERVICES CONSULTANT - patient exhibits significantly shortened step length Stairs Number of Steps: 5 Stair Rails: Right rail Stairs : Minimal assist Stairs Method: Ascend step-to pattern;Descend reciprocal pattern (max verbal cues for sequencing) Assistive Devices Used: (PROFESSIONAL SERVICES CONSULTANT) -catches foot on each step Sitting Static [...] transfer bed to/from chair with (6) Modified [place] with sliding board or pivot method. By 11-17-2023 Outcome: In progress Goal: Patient will transfer sit to/from stand Description: Patient will transfer sit to/from stand with (6) Modified [place] By 11-17-2023. Outcome: In progress Problem: Decreased Ambulatory Skills Goal: Improve gait Description: Ambulate 100 meters using Front - wheeled walker with (6) Modified [place] By 11-17-2023. Outcome: In progress Goal: Improve gait on stairs Description: Ascend/descend 7 +7 stairs using Cane with (6) Modified [place] .By 11-17-2023 Outcome: In progress Problem: Decreased [...] least AD, stairs for home usage daily. FABRIC WORKER FITTER Appropriate: Yes Carola Spence PTA 11/12/2023 Pager: [employer] PT Dept TAL COLOR PRESS OPERATOR * Gregg Dexter MD - 11/12/2023 7:59 [...] documented. Gregg Dexter MD, 11/12/2023 7:19 PM TAL COLOR PRESS OPERATOR * Amelia Lobo MD - 11/11/2023 7:53 [...] 11/11/2023 07:56 PGY-5 General Surgery Resident Pager: [phone] or via [employer] TAL COLOR PRESS OPERATOR Associated attestation - Mariama Catherine DO - 11/12/2023 2:39 PM DIGITAL COLOR PRESS OPERATOR FACULTY NOTE I saw and evaluated the [...] on the Primary Treatment Team, click here. TAL COLOR PRESS OPERATOR Associated attestation - Mariama Catherine DO - 11/12/2023 2:39 PM DIGITAL COLOR PRESS OPERATOR FACULTY NOTE I saw and evaluated the patient on the date of the resident's note. I discussed with the resident and agree with the resident???s findings and plan documented in the resident???s note from above. Anyrevisions by me are documented. Mariama Catherine DO, 11/12/2023 2:39 PM * Olivia Johnson RN - 11/09/2023 11:34 PM CST Shift [id number] Pt A&O to self and family member, pt pleasantly confused, spouse at bedside, pt VSS, on 2L to 4L via facemask to maintain oxygen above 90%. Pt denies bonita, pt up with AX1 with GB and walker, call light within reach, bed alarm on. TAL COLOR PRESS OPERATOR * Carola Spence PTA - 11/09/2023 3:35 [...] patient adamantly denies having pain this PM O:Support Architect Used: None needed Mental Status Mental Status: [...] With approach Clarissa is in bed - blog writer notes significant improvement in alertness and participation in therapy this PM. She is pleasantly confused and often reports we are in [place], [place] - writerredirects that she is at the hospital in [place], [place]. Exhibits significant improvement with ambthis PM [...] transfer bed to/from chair with (6) Modified [place] with sliding board or pivot method. By 11-17-2023 Outcome: In progress Goal: Patient will transfer sit to/from stand Description: Patient will transfer sit to/from stand with (6) Modified [place] By 11-17-2023. Outcome: In progress Problem: Decreased Ambulatory Skills Goal: Improve gait Description: Ambulate 100 meters using Front - wheeled walker with (6) Modified [place] By 11-17-2023. Outcome: In progress Goal: Improve gait on stairs Description: Ascend/descend 7 +7 stairs using Cane with (6) Modified [place] .By 11-17-2023 Outcome: In progress Problem: Decreased [...] least AD, stairs for home usage daily. FABRIC WORKER FITTER Appropriate: Yes Carola Spence PTA 11/09/2023 Pager: [facility] PT Dept TAL COLOR PRESS OPERATOR * Juhi Dent, PharmD - 11/09/2023 2:58 [...] ordered Juhi Dent, WalterD 11/09/2023 14:58 [facility] TAL COLOR PRESS OPERATOR * Sera Fleming SLP CCC - 11/09/2023 11:20 AM CST Speech Language Pathology: Attempted to see patient this am x2. Pt sleeping soundly and not waking sufficiently for tx. Will re-attempt to see patient today as schedule permits. Sera Fleming SLP CCC, 11/09/2023 11:20 AM TAL COLOR PRESS OPERATOR * Jesusita Aiken, TRAVEL COTA, TITLE ONE READING TEACHER - 11/09/2023 7:31 AM CST SURGERY TRAUMA PROGRESS NOTE -SWATCH CUTTER Lucinda Kennedy : 1940 Sex: female ASSESSMENT: [...] Resident and Staff Physician. Jesusita Aiken APRN, TITLE ONE READING TEACHER, 11/09/2023 7:32 AM Discharge Milestones Documentation Discharge Milestones completed daily by the documenting provider on the Primary Treatment Team, click here. TAL COLOR PRESS OPERATOR * Carola Spence, FABRIC WORKER FITTER - 11/08/2023 2:30 PM CST Physical Therapy [...] perform) Heel/Toe Raises: 10 reps Interdisciplinary Communication PA/SWATCH CUTTER: updated PM&R PA following session RN: ok [...] bed and her eyes are closed. When blog writer states her voice she responds right away but her eyes do not open. Power And Recovery Supervisor cues patient to move supine > seated [...] transfer bed to/from chair with (6) Modified [place] with sliding board or pivot method. By 11-17-2023 Outcome: In progress Goal: Patient will transfer sit to/from stand Description: Patient will transfer sit to/from stand with (6) Modified [place] By 11-17-2023. Outcome: In progress Problem: Decreased Ambulatory Skills Goal: Improve gait Description: Ambulate 100 meters using Front - wheeled walker with (6) Modified [place] By 11-17-2023. Outcome: In progress Goal: Improve gait on stairs Description: Ascend/descend 7 +7 stairs using Cane with (6) Modified [place] .By 11-17-2023 Outcome: In progress Problem: Decreased [...] least AD, stairs for home usage daily. FABRIC WORKER FITTER Appropriate: Yes Carola Spence PTA 11/08/2023 Pager: [facility] Dept TAL COLOR PRESS OPERATOR * Bill Olivera - 11/08/2023 12:37 PM CSTSummary: DC Planning DC Planning Patient is near medical readiness to DC to next level of care. It is not yet clear if she will be aKnapp candidate yet. Power And Recovery Supervisor spoke with patient's daughter over the phone. Also, had spoken with patient's father earlierin the week. We will start looking for TCUs around [place]. Also, she will do further research and call me back with more options. CC explained that we can't guarantee placement in their preferred place, this is up to facility, insurance coverage and bed availability. Also, Medicare patients will not be able to stay in the hospital indefinitely while we look for their preferred TCU. TAL COLOR PRESS OPERATOR * Victor M Enrique MD - 11/08/2023 12:00 PM CST Images from the original note were not included. SURGERY TRAUMA PROGRESS NOTE -PGY 1 Lucinda Romo Kennedy : 1940 Sex: female ASSESSMENT: 83 y.o. yo female with SDH R cerebral convexity and falx, scattered SAH and periventricular hemorrhage . The following services have been consulted PM&R, ACCOUNT SUPPORT ASSOCIATE. Night Events: Nurse reported weakness of right leg overnight during neuro checks, upon examination by overnight resident determined decreased rom 2/2 to right ankle pain. -Pt required 3 prn doses of labetalol overnight to maintain goal of sbp<160 Day Events: -Patient cleared by ACCOUNT SUPPORT ASSOCIATE and has resumed regular diet -Restarted prior oral bp regimen -CXR not concerning for pneumonia -Procal WNL -Started Naproxen BID and FABRIC WORKER FITTER allopurinol for suspected gout flare PLAN: Diet: [...] Victor M Enrique MD, 11/09/2023 8:29 AM TAL COLOR PRESS OPERATOR * Sinai Brady PA-C - 11/08/2023 11:33 AM CST Physical Medicine & Rehabilitation Follow-Up Lucinda Kennedy : 1940 Sex: female Patient lethargic, rouses briefly to acknowledge blog writer before returning to sleep. Unable to maintain [...] II, and HLD, who was admitted to [facility] 11/04/2023 after being found unconscious at the [...] address self care, ADL's, adaptive equipment Continue ACCOUNT SUPPORT ASSOCIATE to address speech, swallow, communication, cognition Regarding [...] of this note have been dictated using [employer] dictation software. Please excuse any thermoforming operator errors and feel free to contact me regarding such errors or confusion regarding intended message. Sinai Brady PA-C Pager via [employer] TAL COLOR PRESS OPERATOR * Ruby Franklin, OTR/L - 11/08/2023 10:10 AM CST OT NOTE: Attempted OT session but pt was too lethargic to meaningful participate, falling asleep quickly andmumbling responses to questions. Will try to return later this PM as schedule allows (tomorrow willschedule session in the PM as RN reports she is usually more alert after 2:00pm). Aubree Franklin, OTR / L 11/08/2023 TAL COLOR PRESS OPERATOR * Sera Fleming, STEPHIE [facility] - 11/08/2023 9:26 AM CST Speech-Language Pathology Progress Note 11/08/2023 ACCOUNT SUPPORT ASSOCIATE Recommendations Discharge Recommendations (ACCOUNT SUPPORT ASSOCIATE): Post-acute placement recommended. Acute Rehab if meets admission criteria No known barriers to placement Barriers to Discharge (ACCOUNT SUPPORT ASSOCIATE): NA - Post acute placement is recommended and no barriers to placement known. Post Discharge follow-up (ACCOUNT SUPPORT ASSOCIATE): ACCOUNT SUPPORT ASSOCIATE at post-acute placement Recommend PM&R Consult (ACCOUNT SUPPORT ASSOCIATE): Yes, for assessment of post-acute placement needs. Pt appears to be a candidate for higher intensity rehab services. 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 Cognitive-linguistic assessment not completed. Once pt clears, suspect she will have very good participation as she participates well when more alert. Speech-Language Pathologist: Sera Fleming SLP [facility] 11/08/2023 9:26 AM Pager: [facility] Electronically signed by Sera Fleming SLP [facility] at 11/08/2023 9:29 AM DIGITAL COLOR PRESS OPERATOR * Sinai Brady PA-C - 11/07/2023 3:57 PM CST Physical Medicine & Rehabilitation Follow-Up Lucinda Ryans : 1940 Sex: female Patient lethargic, rouses briefly and acknowledges blog writer, answers a few questions but unclear reliability, [...] II, and HLD, who was admitted to [facility] 11/04/2023 after being found unconscious at the [...] address self care, ADL's, adaptive equipment Continue ACCOUNT SUPPORT ASSOCIATE to address speech, swallow, communication, cognition Regarding [...] of this note have been dictated using [employer] dictation software. Please excuse any thermoforming operator errors and feel free to contact me regarding such errors or confusion regarding intended message. Sinai Brady PA-C Pager via [employer] Total time spent on this encounter, on the date of service including pre-visit review of separatelyobtained history, cfic-ot-jfgh interaction performing medically appropriate physical exam, patient counseling/education, interpretation of diagnostic results, care coordination and documentation was 35 minutes. TAL COLOR PRESS OPERATOR * Jazmine Thompson V - 11/07/2023 3:09 PM CST CULTURAL ASSESSMENT: SUMMARY: This blog writer saw pt. At 12:26 PM on 11/07/2023. Power And Recovery Supervisor introduced herself to pt.'s , and discussed with him on blog writer's role. Power And Recovery Supervisor asked pt.'s if he had any questions, comments, or concerns regarding pt.'s care. Pt.'s mentioned that he doesn't really know anything, so he will wait and see if later he would need assistance from blog writer. Power And Recovery Supervisor gave her contact information for any future questions, comments, or concerns. Jazmine Thompson V, 11/07/2023 3:27 PM TAL COLOR PRESS OPERATOR * Sera Fleming SLP [facility] - 11/07/2023 2:41 PM CST Speech-Language Pathology Progress Note 11/07/2023 ACCOUNT SUPPORT ASSOCIATE Recommendations Discharge Recommendations (ACCOUNT SUPPORT ASSOCIATE): Post-acute placement recommended. Acute Rehab if meets admission criteria No known barriers to placement Barriers to Discharge (ACCOUNT SUPPORT ASSOCIATE): NA - Post acute placement is recommended and no barriers to placement known. Post Discharge follow-up (ACCOUNT SUPPORT ASSOCIATE): ACCOUNT SUPPORT ASSOCIATE at post-acute placement Recommend PM&R Consult (ACCOUNT SUPPORT ASSOCIATE): Yes, for assessment of post-acute placement needs. Pt appears to be a candidate for higher intensity rehab services. 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 Safe to restart baseline diet of regular textures and thin liquids. Ensure pt is upright for all PO intake and is alert. Speech-Language Pathologist: Sera Fleming SLP [facility] 11/07/2023 2:44 PM Pager: [facility] TAL COLOR PRESS OPERATOR * Juan Loera MD - 11/07/2023 10:42 AM CST SURGERY TRAUMA PROGRESS NOTE -PGY 1 Lucinda Ryans : 1940 Sex: female ASSESSMENT: 83 y.o. yo female with SDH R cerebral convexity and falx, scattered SAH and periventricular hemorrhage . The following services have been consulted PM&R, ACCOUNT SUPPORT ASSOCIATE. Night Events: -Pt reported to be pulling out lines overnight, given zyprexa 10 mg for agitation Day Events: -Patient diet changed to NPO due to aspiration concerns -Held oral antihypertensives to start tomorrow pending clearance from ACCOUNT SUPPORT ASSOCIATE -Start Maintenance fluids LR 110ml/hr ending 11/08/23 [...] mother. Advised to speak with social media manager to start paperwork. Updated family on plan. [...] on the Primary Treatment Team, click here. TAL COLOR PRESS OPERATOR Associated attestation - Mariama Catherine DO - 11/12/2023 2:36 PM DIGITAL COLOR PRESS OPERATOR FACULTY NOTE I saw and evaluated the [...] yet. Dt scheduling, unable to reschedule today. TAL COLOR PRESS OPERATOR * Sera Fleming, STEPHIE CCC - 11/07/2023 9:55 AM CST Speech-Language Pathology Progress Note 11/07/2023 ACCOUNT SUPPORT ASSOCIATE Recommendations Discharge Recommendations (ACCOUNT SUPPORT ASSOCIATE): Post-acute placement recommended. Acute Rehab if meets admission criteria No known barriers to placement Barriers to Discharge (ACCOUNT SUPPORT ASSOCIATE): NA - Post acute placement is recommended and no barriers to placement known. Post Discharge follow-up (ACCOUNT SUPPORT ASSOCIATE): ACCOUNT SUPPORT ASSOCIATE at post-acute placement Recommend PM&R Consult (ACCOUNT SUPPORT ASSOCIATE): Yes, for assessment of post-acute placement needs. Pt appears to be a candidate for higher intensity rehab services. Diet Recommendation: Current Diet : NPO Current Liquid: NPO Medication Administration: None orally Oral Hygiene: [place] teeth 2x/day Instrumental Assessment Needed: No Additional Referrals Needed: None Page ACCOUNT SUPPORT ASSOCIATE if alertness levels improve. Will re-evaluate today [...] time. Education provided to at bedside re ACCOUNT SUPPORT ASSOCIATE role and delirium dysphagia. 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 Pt is pending further imaging to ensure no change in TBI. Recommend continuing NPO at this time. RN to page ACCOUNT SUPPORT ASSOCIATE with improved alertness levels and will see again today based on improvement. Speech-Language Pathologist: Sera Fleming, STEPHIE CCC, 11/07/2023 9:59 AM Pager: [facility] TAL COLOR PRESS OPERATOR * Ruby Franklin, OTR/L - 11/06/2023 4:39 [...] mgmt/ADL: 25 minutes Ruby Franklin, OTR/L Pager: [facility] [employer] OT Department TAL COLOR PRESS OPERATOR * Sera Fleming SLP CCC - 11/06/2023 2:32 PM CST Speech Language Pathology: Pt not seen today d/t staffing and time constraints. Will plan to see pt tomorrow for cognitive-linguistic dx/tx and swallow follow up. Sera Fleming SLP CCC, 11/06/2023 2:32 PM TAL COLOR PRESS OPERATOR * Shy Higuera - 11/06/2023 11:04 AM CST Was unable to draw blood because nurse requested lab to come back later. Notified YOVANY Cornejo at 11:04. Patient's visitor stated that these labs are duplicate, informed YOVANY Cornejo she will call lab if needed. Shy Higuera, 11/06/2023 11:04 AM TAL COLOR PRESS OPERATOR * Bill Olivera - 11/06/2023 10:56 AM CSTSummary: Care Coordination Assessment Care Coordination Assessment Expected DC Date: 11/07/2023 Social Information Support Architect Used: None needed Decision Maker at Admission: [...] Risks for Readmission: Access to f/u appointments electrical manager will continue to follow until DC [...] DO Inbasket notification sent via Care Everywhere TAL COLOR PRESS OPERATOR * Karime Allison PA-C - 11/06/2023 8:06 [...] intact Motor: Follows commands x4 extremities, 5/5 collision mechanic strength and plantar/dorsiflexion bilaterally, no pronator drift [...] PRN Neurosurgery will follow peripherally, please contact counter control operator resident with any questions or concerns. Staffed with Karime Sheikh PA-C, 11/06/2023 8:06 AM Neurosurgery ALICIA Discharge Milestones Documentation Discharge Milestones completed daily by the documenting provider on the Primary Treatment Team, click here. TAL COLOR PRESS OPERATOR * Derek Marie RN - 11/06/2023 12:58 [...] unit. Derek Marie RN, 11/06/2023 1:00 AM TAL COLOR PRESS OPERATOR * Gale Nassar MDIV - 11/05/2023 4:48 [...] Gale Nassar MDIV, 11/05/2023 4:49 PM Pager: [phone] TAL COLOR PRESS OPERATOR * Kindra Nichole RN - 11/05/2023 1:19 AM CST Upon admission, a Four Eyes Skin Inspection was completed with Rafa Goodman RN. Skin injuries were NOT present, and skin breakdown needing further assessment will be added to Avatar. Will implement interventions from Skin INJURY Bundle as appropriate. Kindra Nichole RN, 11/05/2023 1:20 AM TAL COLOR PRESS OPERATOR * Hernandez Mathur MD - 11/05/2023 12:[place] [address] [facility]#: [id number] PATIENT: LUCINDA KENNEDY : 1940 DATE DICTATED: 11/05/2023 SURGERY STAFF DAILY PROGRESS NOTE DATE OF SERVICE: 11/05/2023 I saw and evaluated the patient. I discussed management with residents, TITLE ONE READING TEACHER, and PAs on the Neurosurgery team and [...] PhD Staff Physician Neurosurgery Service Received in Roll Up Helper: 11/05/2023 17:07:17 M: /[id number] OK/MODL TAL COLOR PRESS OPERATOR documented in this encounter H&P Notes * [...] Team Notified by: [employer] Alert received at 0287 Tier Level page received at 6569 Staff Surgeon: Quinn Covarrubias MD Pediatric Patient < 15 years: No. [place] Trauma Team Time Out Completed: No HISTORY [...] studies, procedures and surgery) Admit to [facility] Trauma Surgery Service Neurosurgery Consult paged out. Neurosurgery resident arrived at 2310. Consult to SICU Full Code Cardiac Monitoring q1Hr neuro checks, CMS checks Incentive Spirometer Bedrest with C, T, & L spine precautions C-spine exam and possible clearance once final reads posted NPO until final reads on radiography Consult ACCOUNT SUPPORT ASSOCIATE and keep strict NPO if Age > [...] 11/04/2023 10:54 PM General Surgery PGY1 [facility] Surgery Service TAL COLOR PRESS OPERATOR Associated attestation - Quinn Covarrubias MD - 11/05/2023 10:43 AM DIGITAL COLOR PRESS OPERATOR FACULTY NOTE I saw and evaluated the [...] Patient Risks discussed: Pain, bleeding and infection [place] protocol: Patient identity confirmed: Verbally with patient, [...] complications Priscilla Holcomb MD, 11/04/2023 11:43 PM TAL COLOR PRESS OPERATOR Associated attestation - Rito Graf MD - 11/05/2023 2:30 AM DIGITAL COLOR PRESS OPERATOR I was present for the entire procedure. [...] contact pharmacist on service at [facility] ([employer]) [phone]. If no response within needed timeframe, please contact central pharmacy via phone at [phone]. Planned discharge medications are: Medication List Medications [...] 3 capsules (225 mg) by mouth daily. TAL COLOR PRESS OPERATOR * Tamiko Westbrook LGSW - 11/15/2023 8:32 AM CSTAssociated Order(s): CONSULT TO GENERAL MANAGER Director Data Management Note Acknowledged consult place for support with [...] shared that Lucinda has confused family members. Zian also inq uired resources for adult children caring for elderly parents. Will send to e- mail: [email or web address] (I sent supporting resources as requested) TAL COLOR PRESS OPERATOR * Isabel Day - 11/14/2023 2:18 PM [...] was no one else in the room. Power And Recovery Supervisor greeted Patient, introduced herself, and offered music. Patient was pleasantly confused and asked Power And Recovery Supervisor to sit down. Power And Recovery Supervisor sat down and got out her guitar. Patient chatted with Power And Recovery Supervisor. Power And Recovery Supervisor played a song for Patient on guitar and sang. During the music, Patient looked at the television. After the song, Patient talked about the circumstances leading to her hospitalization and about a possibly surgery. Patient told Power And Recovery Supervisor she is waiting for her to return after checking on their house in [place]. Power And Recovery Supervisor played a second song, After the music, Patient commented that the music was very beautiful. Power And Recovery Supervisor ended the session and Patient thanked Power And Recovery Supervisor. Goals Addressed: Psychosocial Support and Mood Enhancement Plan: Power And Recovery Supervisor will continue to offer music therapy to Patient when possible. Isabel Day, 11/14/2023 2:18 PM TAL COLOR PRESS OPERATOR * Kasey Ennis, PT - 11/06/2023 9:02 [...] History of Falling Z 91.81 PRECAUTIONS Falls Support Architect Used: None needed ACTIVITY Up with Assist [...] math, 92, 102) hospital, Alert, and Cooperative [place] OBJECTIVE Initial patient presentation upon PT arrival: [...] minutes ASSESSMENT Per MD: In assessment, Lucinda Kenndey is a 83 y.o. female with past [...] EOB upon arrival, eating breakfast. She seems [place], slightly confused but cooperative. She has good [...] AD, stairs for home usage daily. . FABRIC WORKER FITTER Appropriate: Yes Participated in goal setting and treatment planning: Patient, Clothes Wringer/Significant Other Agrees with goals and treatment plan: Patient - Yes, Caregiver/Significant Other - Yes. Kasey Ennis, PT 11/06/2023 Pager: [employer] PT Department TAL COLOR PRESS OPERATOR * Devyn Jamil MD - 11/06/2023 7:41 AM CST Images from the original note were not included. Physical Medicine & Rehabilitation Consultation Patient Name: Lucinda Kennedy : 1940 Medical Record: [id number] PRIMARY CARE PHYSICIAN: No primary care provider on file. REQUESTING PHYSICIAN: Quinn Covarrubias MD REASON FOR CONSULT: I was asked to evaluate this patient regarding their rehabilitation needs and appropriateness for acute rehabilitation. HISTORY OF PRESENT PROBLEM I personally reviewed the patient's medical record from the most recent [facility] admission including yet not limited to notes as below and summarized it below in conjunction with interview with the patient and patient's . Lucinda Kennedy is a 83 y.o. RHD female with chronic medical conditions including HTN, DM II, and HLD, who was admitted to [facility] 11/04/2023 after being found unconscious at the [...] she couldn't come up with the name. ACCOUNT SUPPORT ASSOCIATE (11/05/23) Functional oropharyngeal swallow. Safe for regular [...] of the thoracic or lumbar spine. 2. Zokx-ka-jeezjjgs lumbar spondylosis without suspected high-grade spinal canal or neural foraminal narrowing. CT L-Spine (11/04/23) IMPRESSION Impression: 1. No suspected acute fracture or dislocation of the thoracic or lumbar spine. 2. Vwwl-ze-atikhavt lumbar spondylosis without suspected high-grade spinal canal [...] II, and HLD, who was admitted to [facility] 11/04/2023 after being found unconscious at the [...] address self care, ADL's, adaptive equipment Continue ACCOUNT SUPPORT ASSOCIATE to address speech, swallow, communication, cognition Regarding [...] occur at the acute level such as [place] where she can participate in 3hrs/day and [...] service including pre-visit review of separatelyobtained history, aqda-ls-qegr interaction performing medically appropriate physical exam, patient counseling/education, interpretation of diagnostic results, care coordination and documentation was 60 minutes. TAL COLOR PRESS OPERATOR * Ruby Franklin, OTR/L - 11/05/2023 1:53 [...] 10 minutes Therapist: Ruby Franklin OTR/L Pager: [facility] Occup[facility] Therapy Department TAL COLOR PRESS OPERATOR * Reynaldo Anderson PA-C - 11/05/2023 12:41 [...] though 2 of 3 serve in the ([place] and one may be a [employer] Application Development Manager?). She jokes about how long she has [...] PA-C, 11/05/2023 12:41 PM Palliative Medicine Available [facility] Advance Care Planning Primary Care: No primary [...] Subjective 11/05/2022 Patient prefers to go by [place]. Seen this afternoon, she is not oriented to time or place. No family present. She does indicate to me she prefers to go by [place] [employer]. She was able to tell me a lot about her 3 grandsons that make her veryproud, sounds as though 2 of 3 serve in the ([place] and one may be a [employer] Application Development Manager?). She jokes about how long she has [...] their hobbies, activities and interests, spirituality or mormonism, personal experience with end of life, and [...] service including pre-visit review of separatelyobtained history, xdyq-bg-vftq interaction performing medically appropriate physical exam, patient counseling/education, interpretation of diagnostic results, care coordination and documentation was 60 minutes. TAL COLOR PRESS OPERATOR * Sera Fleming SLP [facility] - 11/05/2023 9:56 AM CST SPEECH-LANGUAGE PATHOLOGY CONSULTATION ACCOUNT SUPPORT ASSOCIATE Recommendations Discharge Recommendations (ACCOUNT SUPPORT ASSOCIATE): Post-acute placement recommended. Acute Rehab if meets admission criteria No known barriers to placement Barriers to Discharge (ACCOUNT SUPPORT ASSOCIATE): NA - Post acute placement is recommended and no barriers to placement known. Post Discharge follow-up (ACCOUNT SUPPORT ASSOCIATE): ACCOUNT SUPPORT ASSOCIATE at post-acute placement Recommend PM&R Consult (ACCOUNT SUPPORT ASSOCIATE): Yes, for assessment of post-acute placement needs. Pt appears to be a candidate for higher intensity rehab services. Diet Recommendation: Current Diet : Regular Current Liquid: Thin liquids Medication Administration: Medications with thin liquid Aspiration Precautions: Upright with all eating and drinking Oral Hygiene: [place] teeth 2x/day Positioning Techniques: Seat fully upright [...] Admitted to SICU for close neuro monitoring. ACCOUNT SUPPORT ASSOCIATE consulted to evaluate a marge function. SUBJECTIVE Barriers to Learning: No caregiver present;Cognitive linguistic deficit Barriers to Discharge (ACCOUNT SUPPORT ASSOCIATE): NA - Post acute placement is recommended [...] intact. EDUCATION Audience: Patient Education: results of assessment;ACCOUNT SUPPORT ASSOCIATE scope of practice;ACCOUNT SUPPORT ASSOCIATE plan of care;recommendation for additional therapy Speech-Language Pathologist: Sera Fleming, [facility] 11/05/2023 9:56 AM Pager: [employer] TAL COLOR PRESS OPERATOR * Cale Thompson MD - 11/05/2023 1:00 AM CSTAssociated Order(s): CONSULT TO REPAIRER EVAPORATOR SICU CONSULT - G3 Lucinda Ryans : [...] pulmonary toilet Gastrointestinal/Nutrition: Assessment: NPO, will need ACCOUNT SUPPORT ASSOCIATE clearance prior to diet Plan: - Continue NPO - ACCOUNT SUPPORT ASSOCIATE Electrolytes: Assessment: otherwise grossly within normal limits. [...] Component Value Date/Time PHART 7.37 11/05/2023 0118 PQD7VQI 43 11/05/2023 0118 PO2ART 83 11/05/2023 0118 AOQ4WUU 25 11/05/2023 0118 Q1PTEITS 96 11/05/2023 0118 BEART -0.3 11/05/2023 0118 Labs and imaging reviewed. Art Thompson MD - PGY-3 Surgery Service Pager: [employer] This patient was seen in consultation for critical care management requested by Devin Dougherty MD;P* TAL COLOR PRESS OPERATOR Associated attestation - Quinn Covarrubias MD - 11/05/2023 10:44 AM DIGITAL COLOR PRESS OPERATOR FACULTY NOTE I saw and evaluated the [...] elbow flex/ext. 5/5 wrist flex/ext. 5/5 hand collision mechanic. LUE: 5/5 shoulder abduction. 5/5 elbow flex/ext. 5/5 wrist flex/ext. 5/5 hand collision mechanic. Lower Extremities: RLE: 5/5 hip flexion. 5/5 knee flex/ext. 5/5 ankle plantar-/dorsiflexion. 5/5 EHL. LLE: 5/5 hip flexion. 5/5 knee flex/ext. 5/5 ankle plantar-/dorsiflexion. 5/5 EHL Sensory: Sensation intact in all 4 extremities REVIEW OF LABORATORY, PATHOLOGY, AND RADIOLOGY DATA: [facility] Lab Results Component Value Date/Time NA 144 [...] independently reviewed: Laboratory results and Radiology images TAL COLOR PRESS OPERATOR Associated attestation - Marina Shaffer MD - 11/05/2023 4:13 PM DIGITAL COLOR PRESS OPERATOR 83 year old woman presented after presumed [...] Oximetry - Continuous (ICU) Oxygen Consult to Junior Accountant CONSULT TO PALLIATIVE CARE Straight Cath Protocol [...] RN in EDSTAB 2 at 11/04/2023 22:55:31 DIGITAL COLOR PRESS OPERATOR by Eleni Spring MLS. ED HEMOGLOBIN TOTAL (ED ONLY) - Abnormal Hgb 10.3 (*) LACTATE (LACTIC ACID) - Abnormal Lactate 2.7 (*) Narrative: Send specimen on ice! PTT (APTT) - Abnormal APTT 22.9 (*) ANTI XA HEPARIN UNFRACTIONATED - Abnormal Anti XA Hep U <0.04 (*) URINALYSIS,TOTAL - Abnormal Color COLORLESS Appearance CLEAR Urine Glucose 100 (*) Bili UA NEGATIVE Ketones NEGATIVE Specific [place] 1.036 (*) Blood Ur NEGATIVE PH Urine 7.5 (*) Protein Ur TRACE Urobilinogen NORMAL Nitrite Ur NEGATIVE Leuk Est NEGATIVE WBC Ur 0-5 RBC Ur 0-3 SQ EPITH 0-5 Urinalysis Performed at: [facility] FIBRINOGEN Fibrinogen 288 PRECAUTIONARY TUBE Prec Tube [...] hemorrhage Vanna Parekh PA-C, 11/05/2023 3:11 AM TAL COLOR PRESS OPERATOR * Kathy Worthington RN - 11/05/2023 12:09 AM CST Bed: A08 Expected date: Expected time: Means of arrival: Comments: Stab 2 TAL COLOR PRESS OPERATOR * Ana Ordaz RN - 11/04/2023 10:51 PM CST ED-virtualization architect-Note: --Pertinent Information: Pt arrives to ED after fall down flight of stairs. --Pt's , daughter and son in law were on scene and are all coming to [facility]. --Family contact: Daughter Zain #[phone] / Son in Law # [phone] Ana Ordaz RN TAL COLOR PRESS OPERATOR * Rafa Hutchins RN - 11/04/2023 10:40 PM CST BIBA from home after called when he heard her fall downstairs. Upon EMS arrival, patient was altered and lethargic. reports to EMS that patient is on blood thinners. 18g PIV left AC, 20g PIV right forearm. BG 272. Patient arrives to STAB Room awake, disoriented to time and situation. TAL COLOR PRESS OPERATOR documented in this encounter Miscellaneous Notes * Discharge non-MD/non-AVERY Summaries - Kasey Ennis, PT - 11/16/2023 9:19 AM CST Physical Therapy Inpatient Discharge Summary Lucinda Kennedy [id number] Diagnosis Patient Active Problem List Diagnosis Fall, [...] transfer bed to/from chair with (6) Modified [place] with sliding board or pivot method. By 11-17-2023 Outcome: In progress Goal: Patient will transfer sit to/from stand Description: Patient will transfer sit to/from stand with (6) Modified [place] By 11-17-2023. Outcome: In progress Problem: Decreased Ambulatory Skills Goal: Improve gait Description: Ambulate 100 meters using Front - wheeled walker with (6) Modified [place] By 11-17-2023. Outcome: In progress Goal: Improve gait on stairs Description: Ascend/descend 7 +7 stairs using Cane with (6) Modified [place] .By 11-17-2023 Outcome: In progress Problem: Decreased Functional Motor Skills - PT Goal: Patient demonstrates improved balance Description: Pt to score at least 45/56 Mitchell Balance to indicate decreased risk for falls By 11-17-2023 Outcome: In progress Plan: Discharge to Rehab Facility Physical Therapist: Kasey Ennis, PT Date: 11/17/2023 Pager: [employer] PT Department TAL COLOR PRESS OPERATOR * Discharge non-MD/non-AVERY Summaries - Bill Olivera - 11/16/2023 7:46 AM DIGITAL COLOR PRESS OPERATOR Summary: DC to TCU Care Coordination Discharge Note Expected DC Date: 11/16/2023 Expected DC Time: 9 AM Final Discharge Destination: Destination Coordination complete. Service Provider Selected Services Address Phone Fax Theresa Yusuf, [facility] [address] [place] [address] [phone] Summary: Patient has been accepted to continue rehabing at the aforementioned post acute facility. Family onboard with plan. WC ride has been ordered for Fri at 9 am Medical team is aware. They will work writing DC orders. CC faxed DC orders to TCU via Stand In. Medical team is aware any controlled substances must be printed and signed to be sent in physical form to the TCU. Also, PSC/ROLL UP HELPER will fax it to TCU temi. Bedside nurse please confirm this is done. A [employer] thread has been started. CC will continue to follow until DC. Please use Inneractive for any further questions. TAL COLOR PRESS OPERATOR * Nursing Assessment - Karolyn Jacob RN [...] at bedside and sitting quietly at bedside TAL COLOR PRESS OPERATOR * Nursing Assessment - Lila Gaines, RN [...] Psychosocial Assessment Within Defined Limits except for: TAL COLOR PRESS OPERATOR * Discharge non-MD/non-AVERY Summaries - Nayeli Alvarado, ACCOUNT SUPPORT ASSOCIATE [facility] - 11/15/2023 4:35 PM CST SPEECH-LANGUAGE PATHOLOGY Discharge Summary 11/15/2023 ACCOUNT SUPPORT ASSOCIATE Recommendations Discharge Recommendations (ACCOUNT SUPPORT ASSOCIATE): Post-acute placement recommended. Acute Rehab if meets admission criteria No known barriers to placement Barriers to Discharge (ACCOUNT SUPPORT ASSOCIATE): NA - Post acute placement is recommended and no barriers to placement known. Post Discharge follow-up (ACCOUNT SUPPORT ASSOCIATE): ACCOUNT SUPPORT ASSOCIATE at post-acute placement Recommend PM&R Consult (ACCOUNT SUPPORT ASSOCIATE): Yes, for assessment of post-acute placement needs. Pt appears to be a candidate for higher intensity rehab services. Diet Recommendation: Current Diet : Regular Current Liquid: Thin liquids Medication Administration: Medications with thin liquid Aspiration Precautions: Upright with all eating and drinking Oral Hygiene: [place] teeth 2x/day Positioning Techniques: Seat fully upright [...] hemianopsia. EDUCATION Audience: Patient Education: results of assessment;ACCOUNT SUPPORT ASSOCIATE scope of practice;ACCOUNT SUPPORT ASSOCIATE plan of care;recommendation for additional therapy Prognosis is good for increasing independence with iADLs. Speech-Language Pathologist: Nayeli Alvarado, ACCOUNT SUPPORT ASSOCIATE [facility] 11/15/2023 4:35 PM Pager: [employer] TAL COLOR PRESS OPERATOR * Discharge non-MD/non-AVERY Summaries - Sharri Price, OTR/L - 11/15/2023 2:12 PM CST [facility] Occupational Therapy Discharge Summary Lucinda Kennedy [...] subacute rehab. Patient Name: Lucinda Kennedy MR#: [id number] Date of : 1940 Age: 83 y.o. [...] none (11/05/23 1400) Prior Level of Function (FABRIC WORKER FITTER): ADLs/IADLs: No assistance required (Independent or modified [...] goals. Occupational Therapist: [facility] OT Department TAL COLOR PRESS OPERATOR * Nursing Assessment - Dariana Alvarado RN - 11/15/2023 4:49 AM CST Nursing Assessment Head to Toe Head to Toe Assessment Shift Summary Shift [id number]: Pt is alert and oriented to self [...] for: Psychosocial Assessment: Observed Patient Behaviors: Restless TAL COLOR PRESS OPERATOR * Nursing Assessment - Tone Rosario RN [...] for: Psychosocial Assessment: Observed Patient Behaviors: Restless TAL COLOR PRESS OPERATOR * Nursing Assessment - Adelso Huber RN - 11/14/2023 4:30 PM DIGITAL COLOR PRESS OPERATOR Nursing Assessment Head to Toe Head to [...] Behavior: at bedside and attentive to patient TAL COLOR PRESS OPERATOR * Nursing Assessment - Adelso Huber RN - 11/14/2023 10:17 AM DIGITAL COLOR PRESS OPERATOR Nursing Assessment Head to Toe Head to [...] Behavior: at bedside and attentive to patient TAL COLOR PRESS OPERATOR * Nursing Assessment - Luisa Pablo, RN [...] Behavior: at bedside and attentive to patient TAL COLOR PRESS OPERATOR * Nursing Assessment - Sanjuana Reyes, RN [...] patient and participating in care Comments: Spouse TAL COLOR PRESS OPERATOR * Nursing Assessment - Nikole Diego RN [...] Behavior: at bedside and attentive to patient TAL COLOR PRESS OPERATOR * Nursing Assessment - Lila Reed RN [...] 6 Psychosocial Within Defined Limits Comments: present TAL COLOR PRESS OPERATOR * Nursing Assessment - Bianca Bell RN - 11/12/2023 2:17 PM DIGITAL COLOR PRESS OPERATOR Nursing Assessment Head to Toe Head to [...] Emotional State: Acceptance Family Behavior: not present TAL COLOR PRESS OPERATOR * Nursing Assessment - Teresita Vidales RN [...] 1640 -- 5 Psychosocial Within Defined Limits TAL COLOR PRESS OPERATOR * Nursing Assessment - Teresita Vidales RN [...] Emotional State: Acceptance Family Behavior: not present TAL COLOR PRESS OPERATOR * Nursing Assessment - Nikole Diego RN [...] as he expressed her confusion and decline TAL COLOR PRESS OPERATOR * Nursing Assessment - Carolina Awan RN [...] Cardiac Assessment Within Defined Limits except for: Auto Salvage Worker - remote telemetry Respiratory Assessment Within Defined [...] 1640 -- 4 Psychosocial Within Defined Limits TAL COLOR PRESS OPERATOR * Nursing Assessment - Carolina Awan RN - 11/10/2023 9:30 PM CST Nursing Assessment Head to Toe Head to Toe Assessment Shift Summary Shift Summary Neurologic/Cognitive Assessment Within Defined Limits except for: Orientation: disoriented to place, disoriented to time and disoriented to situation HEENT Within Defined Limits Cardiac Assessment Within Defined Limits except for: Auto Salvage Worker - remote telemetry Respiratory Assessment Within Defined [...] 1640 -- 4 Psychosocial Within Defined Limits TAL COLOR PRESS OPERATOR * Nursing Assessment - Elvira Benitez RN [...] informed changed nurse and environmental services requested. Elvria Benitez RN, 11/10/2023 6:34 PM Neurologic/Cognitive Assessment [...] for: Psychosocial Assessment: Verbalized Emotional State: Acceptance TAL COLOR PRESS OPERATOR * Nursing Assessment - Zaira Bellamy, RN [...] Pt stated she is going home today, Power And Recovery Supervisor reoriented to POC. Tylenol prn given for [...] for: Psychosocial Assessment: Verbalized Emotional State: Acceptance TAL COLOR PRESS OPERATOR * Nursing Assessment - Quynh Jenikns RN - 11/10/2023 6:46 AM CST Nursing Assessment Head to Toe Head to Toe Assessment Shift Summary Shift Summary Neurologic/Cognitive Assessment Within Defined Limits except for: Orientation: disoriented to place, disoriented to time and disoriented to situation Frequent Neuro Assessments have been documented in the flowsheets HEENT Within Defined Limits Cardiac Assessment Within Defined Limits except for: Auto Salvage Worker - remote telemetry Pacemaker: Pacemaker: No Respiratory [...] 1640 -- 3 Psychosocial Within Defined Limits TAL COLOR PRESS OPERATOR * Nursing Assessment - Antia Keating RN - 11/09/2023 5:41 PM CST [...] Defined Limits except for: Chest Pain: No Auto Salvage Worker - remote telemetry Pacemaker: Pacemaker: No Respiratory [...] 3 Psychosocial Within Defined Limits Shift Summary TAL COLOR PRESS OPERATOR * Nursing Assessment - Anita Keating RN - 11/09/2023 11:44 AM CST Nursing Assessment Head to Toe Head to Toe Assessment Shift Summary Neurologic/Cognitive Assessment Within Defined Limits except for: Cognition: poor attention/concentration Level of Consciousness: Lethargic Frequent Neuro Assessments have been documented in the flowsheets HEENT Within Defined Limits Cardiac Assessment Within Defined Limits except for: Chest Pain: No Auto Salvage Worker - remote telemetry Pacemaker: Pacemaker: No Respiratory [...] 1640 -- 2 Psychosocial Within Defined Limits TAL COLOR PRESS OPERATOR * Nursing Assessment - Mayte Gorver RN - 11/09/2023 5:45 AM CST Nursing [...] Cardiac Assessment Within Defined Limits except for: Auto Salvage Worker - remote telemetry Respiratory Assessment Within Defined [...] 1640 -- 2 Psychosocial Within Defined Limits TAL COLOR PRESS OPERATOR * Nursing Assessment - Chucho Blair, RN [...] pivot to commode. Meds whole with water, [id number]-time. Otherwise resting between cares with family present. Chucho Blair, RN, 11/08/2023 7:01 PM Neurologic/Cognitive Assessment Within Defined Limits except for: Cognition: poor attention/concentration Level of Consciousness: Lethargic Frequent Neuro Assessments have been documented in the flowsheets HEENT Within Defined Limits Cardiac Assessment Within Defined Limits except for: Auto Salvage Worker - remote telemetry Respiratory Assessment Within Defined [...] 1640 -- 2 Psychosocial Within Defined Limits TAL COLOR PRESS OPERATOR * Nursing Assessment - Tone Rosario RN [...] 1640 -- 1 Psychosocial Within Defined Limits TAL COLOR PRESS OPERATOR * Nursing Assessment - Tone Rosario RN [...] 1640 -- 1 Psychosocial Within Defined Limits TAL COLOR PRESS OPERATOR * Nursing Assessment - Chucho Blair, RN [...] Cardiac Assessment Within Defined Limits except for: Auto Salvage Worker - remote telemetry Respiratory Assessment Within Defined [...] 1640 -- 1 Psychosocial Within Defined Limits TAL COLOR PRESS OPERATOR * Nursing Assessment - Chucho Blair, RN [...] less than 1 Psychosocial Within Defined Limits TAL COLOR PRESS OPERATOR * Nursing Assessment - Tone Rosario RN [...] less than 1 Psychosocial Within Defined Limits TAL COLOR PRESS OPERATOR * Nursing Assessment - Tone Rosario RN [...] less than 1 Psychosocial Within Defined Limits TAL COLOR PRESS OPERATOR * Nursing Assessment - Chantal Higgins RN [...] less than 1 Psychosocial Within Defined Limits TAL COLOR PRESS OPERATOR * Nursing Assessment - Chantal Higgins RN [...] 0710 -- 1 Psychosocial Within Defined Limits TAL COLOR PRESS OPERATOR * Nursing Assessment - Musa De La Torre RN - 11/06/2023 4:25 AM DIGITAL COLOR PRESS OPERATOR Nursing Assessment Head to Toe Head to [...] Cardiac Assessment Within Defined Limits except for: Auto Salvage Worker - remote telemetry Respiratory Within defined limits [...] attentive to patient and interacting with patient TAL COLOR PRESS OPERATOR * Transfer - Musa De La Torre RN - 11/06/2023 12:20 AM CST Images from the original note were not included. TRANSFER IN NOTE D: Patient transferred in to [place] [address] from [facility] at 2320. Patient condition on arrival: [...] De La Torre RN, 11/06/2023 12:22 AM TAL COLOR PRESS OPERATOR * Nursing Assessment - Derek Marie RN - 11/05/2023 10:33 PM CST Nursing Assessment Head to Toe Head to Toe Assessment Shift Summary Shift Summary Neurologic/Cognitive Assessment Within Defined Limits except for: Cognition: poor judgement/safety awareness Level of Consciousness: Lethargic Arousal Level: Arouses to pain HEENT Assessment Within Defined Limits except for: Cardiac Assessment Within Defined Limits except for: Heart sounds: S1, S2 Auto Salvage Worker - bedside telemetry ECG Rhythm: normal sinus [...] interacting with patient and participating in care TAL COLOR PRESS OPERATOR * Nursing Assessment - Eloise Randolph RN - 11/05/2023 8:00 PM CST Nursing Assessment Head to Toe Head to Toe Assessment Shift Summary SHIFT [id number] NEURO - Patient Alert to self, and [...] Cardiac Assessment Within Defined Limits except for: Auto Salvage Worker - bedside telemetry ECG Rhythm: normal sinus [...] with patient and sitting quietly at bedside TAL COLOR PRESS OPERATOR * Nursing Assessment - José Urbano RN [...] Cardiac Assessment Within Defined Limits except for: Auto Salvage Worker - bedside telemetry Lead Monitored: Lead II ECG Rhythm: normal sinus rhythm [place] Interval (sec): 0.16 QRS Interval (sec): 0.13 [...] less than 1 Psychosocial Within Defined Limits TAL COLOR PRESS OPERATOR * Nursing Assessment - Eloise Randolph RN - 11/05/2023 4:00 PM CST Nursing Assessment Head to Toe Head to Toe Assessment Shift Summary Shift Summary Neurologic/Cognitive Assessment Within Defined Limits except for: Arousal Level: Arouses to voice Orientation: disoriented to time and disoriented to situation Mood/Behavior: Calm HEENT Within Defined Limits Cardiac Assessment Within Defined Limits except for: Auto Salvage Worker - bedside telemetry ECG Rhythm: normal sinus [...] with patient and sitting quietly at bedside TAL COLOR PRESS OPERATOR * Nursing Assessment - José Urbano RN [...] Cardiac Assessment Within Defined Limits except for: Auto Salvage Worker - bedside telemetry Lead Monitored: Lead II ECG Rhythm: normal sinus rhythm [place] Interval (sec): 0.16 QRS Interval (sec): 0.13 [...] less than 1 Psychosocial Within Defined Limits TAL COLOR PRESS OPERATOR * Trauma Tertiary Exam - Jesusita Aiken APRN, EMILY - 11/05/2023 7:08 AM CST TRAUMA TERTIARY EXAM - SWATCH CUTTER First Exam Lucinda Kennedy : 1940 Sex: [...] Mental Status Adequate for Exam: No Examiner: eJsusita Aiken APRN, EMILY, 11/05/2023 7:08 AM Primary [...] of the thoracic or lumbar spine. 2. 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 [email or web address] 1. In the past year: Have you felt you should cut down on your drinking? no 2. In the past year: Have people annoyed you by criticizing your drinking? no 3. In the past year: Have you felt bad or guilty about your drinking? no 4. In the past year: Have you had an eye commercial account manager first thing in the morning to steady [...] CFS >/= 7, consult Palliative Care Consult ACCOUNT SUPPORT ASSOCIATE for: TBI or Altered Mental Status *If patient meets criteria for an ACCOUNT SUPPORT ASSOCIATE consult, please order aspiration precautions Mental Health [...] on guard, watchful, or easily startled? no Serena numb or detached from others, activities, or [...] SAH risk for bleeding Diet: NPO until ACCOUNT SUPPORT ASSOCIATE eval Activity: Up ad nia C/T/L-Spine status: cleared Weight-bearing status: no restrictions Therapy: PT, OT, OT for cognitive screen, and ACCOUNT SUPPORT ASSOCIATE Consulting Teams(s) Plan and/or Follow-up Recommendations: Neurosurgery: [...] recommendations, and To be determined. Jesusita Aiken, TRAVEL COTA, TITLE ONE READING TEACHER 11/05/2023 07:08 TAL COLOR PRESS OPERATOR * Nursing Assessment - Rafa Tineo RN [...] Cardiac Assessment Within Defined Limits except for: Auto Salvage Worker - bedside telemetry Lead Monitored: Lead II [...] Behavior: at bedside and interacting with patient TAL COLOR PRESS OPERATOR * Nursing Assessment - Rafa Tineo RN [...] Cardiac Assessment Within Defined Limits except for: Auto Salvage Worker - bedside telemetry Lead Monitored: Lead II [...] Behavior: at bedside and interacting with patient TAL COLOR PRESS OPERATOR * Interdisciplinary Note - Amelia Lobo MD - 11/05/2023 12:16 AM DIGITAL COLOR PRESS OPERATOR Patient oriented to self, date, family and medical history. Discussed code status with patient. Shewishes to be full code accepting of CPR and intubation at this time. Amelia Lobo MD, MPH 11/05/2023 06:17 PGY-5 General Surgery Resident Pager: [phone] or via [employer] TAL COLOR PRESS OPERATOR * Interval Note Provider - Priscilla Holcomb MD - 11/04/2023 11:44 PM DIGITAL COLOR PRESS OPERATOR PROCEDURES I performed the following procedures: Art Line Priscilla Holcomb MD, 11/04/2023 11:44 PM TAL COLOR PRESS OPERATOR * ED Faculty Note - Devin Dougherty MD - 11/04/2023 11:13 PM CST Images from the original note were not included. ED Faculty Attestation and Critical Care Note Lucinda Kennedy : 1940 Sex: female Patient Arrival Date and Time: 11/04/2023 10:39 PM FACULTY ATTESTATION I eDvin Dougherty MD, I have discussed the case [...] placement Devin Dougherty MD, 11/04/2023 11:13 PM TAL COLOR PRESS OPERATOR * ED Stabilization Note - Norm Heranndez MD - 11/04/2023 10:52 PM CST Emergency [...] Disposition Admit to SICU Signed out to [facility] Procedures I performed the following procedures: Adult Trauma Resuscitation. Norm Hernandez MD, PGY-3 Emergency Medicine Resident TAL COLOR PRESS OPERATOR documented in this encounter Plan of Treatment Scheduled Referrals Name Type Priority Associated Diagnoses Orde r Schedule REFERRAL TO TRAUMATIC BRAIN INJURY Referral Routine Fall, initial encounter SDH (subdural hematoma) (CMS) SAH (subarachnoid hemorrhage) (CMS/HHS) Traumatic brain injury with loss of consciousness, initial encounter ([facility]) Ordered: 11/08/2023 documented as of this encounter Procedures Procedure Name Priority Date/Time Associated Diagnosis Comments PANEL BASIC METABOLIC (BMP) Routine 11/16/2023 7:22 AM DIGITAL COLOR PRESS OPERATOR POC GLUCOSE Routine 11/16/2023 6:58 AM DIGITAL COLOR PRESS OPERATOR POC GLUCOSE Routine 11/15/2023 9:15 PM DIGITAL COLOR PRESS OPERATOR POC GLUCOSE Routine 11/15/2023 4:09 PM DIGITAL COLOR PRESS OPERATOR POC GLUCOSE Routine 11/15/2023 12:46 PM DIGITAL COLOR PRESS OPERATOR PANEL BASIC METABOLIC (BMP) Routine 11/15/2023 7:39 AM DIGITAL COLOR PRESS OPERATOR POC GLUCOSE Routine 11/15/2023 6:11 AM DIGITAL COLOR PRESS OPERATOR POC GLUCOSE Routine 11/14/2023 9:02 PM DIGITAL COLOR PRESS OPERATOR POC GLUCOSE Routine 11/14/2023 4:21 PM DIGITAL COLOR PRESS OPERATOR POC GLUCOSE Routine 11/14/2023 12:19 PM DIGITAL COLOR PRESS OPERATOR PANEL BASIC METABOLIC (BMP) Routine 11/14/2023 8:59 AM DIGITAL COLOR PRESS OPERATOR POC GLUCOSE Routine 11/14/2023 8:11 AM DIGITAL COLOR PRESS OPERATOR POC GLUCOSE Routine 11/13/2023 9:15 PM DIGITAL COLOR PRESS OPERATOR POC GLUCOSE Routine 11/13/2023 4:03 PM DIGITAL COLOR PRESS OPERATOR POC GLUCOSE Routine 11/13/2023 11:21 AM DIGITAL COLOR PRESS OPERATOR PANEL BASIC METABOLIC (BMP) Routine 11/13/2023 6:41 AM DIGITAL COLOR PRESS OPERATOR POC GLUCOSE Routine 11/13/2023 6:31 AM DIGITAL COLOR PRESS OPERATOR POC GLUCOSE Routine 11/12/2023 9:21 PM DIGITAL COLOR PRESS OPERATOR POC GLUCOSE Routine 11/12/2023 4:12 PM DIGITAL COLOR PRESS OPERATOR PANEL BASIC METABOLIC (BMP) Timed 11/12/2023 1:01 PM DIGITAL COLOR PRESS OPERATOR POC GLUCOSE Routine 11/12/2023 12:14 PM DIGITAL COLOR PRESS OPERATOR POC GLUCOSE Routine 11/12/2023 6:09 AM DIGITAL COLOR PRESS OPERATOR POC GLUCOSE Routine 11/11/2023 8:48 PM DIGITAL COLOR PRESS OPERATOR POC GLUCOSE Routine 11/11/2023 4:11 PM DIGITAL COLOR PRESS OPERATOR POC GLUCOSE Routine 11/11/2023 11:47 AM DIGITAL COLOR PRESS OPERATOR PHOSPHORUS Routine 11/11/2023 6:09 AM DIGITAL COLOR PRESS OPERATOR PANEL BASIC METABOLIC (BMP) Routine 11/11/2023 6:09 AM DIGITAL COLOR PRESS OPERATOR MAGNESIUM Routine 11/11/2023 6:09 AM DIGITAL COLOR PRESS OPERATOR TC LAB BLOOD DRAW BY VENIPUNCTURE Routine 11/11/2023 6:09 AM DIGITAL COLOR PRESS OPERATOR POC GLUCOSE Routine 11/10/2023 8:58 PM DIGITAL COLOR PRESS OPERATOR POC GLUCOSE Routine 11/10/2023 4:16 PM DIGITAL COLOR PRESS OPERATOR POC GLUCOSE Routine 11/10/2023 11:15 AM DIGITAL COLOR PRESS OPERATOR PHOSPHORUS Routine 11/10/2023 6:17 AM DIGITAL COLOR PRESS OPERATOR PANEL BASIC METABOLIC (BMP) Routine 11/10/2023 6:17 AM DIGITAL COLOR PRESS OPERATOR MAGNESIUM Routine 11/10/2023 6:17 AM DIGITAL COLOR PRESS OPERATOR PC LAB CBC/PLT Routine 11/10/2023 6:17 AM DIGITAL COLOR PRESS OPERATOR POC GLUCOSE Routine 11/09/2023 9:41 PM DIGITAL COLOR PRESS OPERATOR POC GLUCOSE Routine 11/09/2023 3:58 PM DIGITAL COLOR PRESS OPERATOR ANTI XA ASSAY LMW HEPARIN Timed 11/09/2023 2:18 PM DIGITAL COLOR PRESS OPERATOR POC GLUCOSE Routine 11/09/2023 11:28 AM DIGITAL COLOR PRESS OPERATOR XR FOOT RIGHT 3 V AP/OBL/LAT* Routine 11/09/2023 10:36 AM DIGITAL COLOR PRESS OPERATOR POC GLUCOSE Routine 11/09/2023 5:46 AM DIGITAL COLOR PRESS OPERATOR PC VALPROIC ACID LEVEL DEPAHOTE Routine 11/09/2023 5:41 AM DIGITAL COLOR PRESS OPERATOR PHOSPHORUS Routine 11/09/2023 5:41 AM DIGITAL COLOR PRESS OPERATOR PANEL BASIC METABOLIC (BMP) Routine 11/09/2023 5:41 AM DIGITAL COLOR PRESS OPERATOR MAGNESIUM Routine 11/09/2023 5:41 AM DIGITAL COLOR PRESS OPERATOR PC LAB CBC/PLT Routine 11/09/2023 5:41 AM DIGITAL COLOR PRESS OPERATOR POC GLUCOSE Routine 11/08/2023 8:40 PM DIGITAL COLOR PRESS OPERATOR PHOSPHORUS Routine 11/08/2023 4:20 PM DIGITAL COLOR PRESS OPERATOR PANEL BASIC METABOLIC (BMP) Routine 11/08/2023 4:20 PM DIGITAL COLOR PRESS OPERATOR MAGNESIUM Routine 11/08/2023 4:20 PM DIGITAL COLOR PRESS OPERATOR TC LAB BLOOD DRAW BY VENIPUNCTURE Routine 11/08/2023 4:20 PM DIGITAL COLOR PRESS OPERATOR POC GLUCOSE Routine 11/08/2023 3:56 PM DIGITAL COLOR PRESS OPERATOR POC GLUCOSE Routine 11/08/2023 11:03 AM DIGITAL COLOR PRESS OPERATOR XR CHEST 1 VIEW AP OR PA* Routine 11/08/2023 6:30 AM DIGITAL COLOR PRESS OPERATOR POC GLUCOSE Routine 11/08/2023 6:22 AM DIGITAL COLOR PRESS OPERATOR POC GLUCOSE Routine 11/07/2023 9:34 PM DIGITAL COLOR PRESS OPERATOR POC GLUCOSE Routine 11/07/2023 4:06 PM DIGITAL COLOR PRESS OPERATOR POC GLUCOSE Routine 11/07/2023 11:45 AM DIGITAL COLOR PRESS OPERATOR XR CHEST 2 VIEWS PA + LAT* Routine 11/07/2023 10:07 AM DIGITAL COLOR PRESS OPERATOR PC PROCALCITONIN (PCT) Routine 8:34 AM DIGITAL COLOR PRESS OPERATOR PHOSPHORUS Routine 11/07/2023 8:34 AM DIGITAL COLOR PRESS OPERATOR PANEL BASIC METABOLIC (BMP) Routine 11/07/2023 8:34 AM DIGITAL COLOR PRESS OPERATOR MAGNESIUM Routine 11/07/2023 8:34 AM DIGITAL COLOR PRESS OPERATOR PC LAB CBC/PLT Routine 11/07/2023 8:34 AM DIGITAL COLOR PRESS OPERATOR POC GLUCOSE Routine 11/07/2023 5:45 AM DIGITAL COLOR PRESS OPERATOR POC GLUCOSE Routine 11/06/2023 9:21 PM DIGITAL COLOR PRESS OPERATOR PHOSPHORUS Timed 11/06/2023 1:06 PM DIGITAL COLOR PRESS OPERATOR PANEL BASIC METABOLIC (BMP) Timed 11/06/2023 1:06 PM DIGITAL COLOR PRESS OPERATOR MAGNESIUM Timed 11/06/2023 1:06 PM DIGITAL COLOR PRESS OPERATOR PC GASES,BLOOD,ANY COMB OF PH,PCD2,PO2,CO2,HCO2 Routine 11/06/2023 1:06 PM DIGITAL COLOR PRESS OPERATOR PC LAB CBC/PLT Timed 11/06/2023 1:06 PM DIGITAL COLOR PRESS OPERATOR POC GLUCOSE Routine 11/06/2023 1:04 PM DIGITAL COLOR PRESS OPERATOR POC GLUCOSE Routine 11/06/2023 10:49 AM DIGITAL COLOR PRESS OPERATOR PC MAGNESIUM, SERUM Routine 11/06/2023 6 :31 AM DIGITAL COLOR PRESS OPERATOR PC PHOSPHORUS INORGANIC(PHOSPHATE) Routine 11/06/2023 6:31 AM DIGITAL COLOR PRESS OPERATOR PC LAB CBC/PLT Routine 11/06/2023 6:31 AM DIGITAL COLOR PRESS OPERATOR TC LAB BLOOD DRAW BY VENIPUNCTURE Routine 11/06/2023 6:31 AM DIGITAL COLOR PRESS OPERATOR PROTHROMBIN (PT) & INR Timed 6:31 AM DIGITAL COLOR PRESS OPERATOR PC LAB GLYCOSYLATED HGB Routine 11/06/2023 6:31 AM DIGITAL COLOR PRESS OPERATOR POC GLUCOSE Routine 11/06/2023 5:39 AM DIGITAL COLOR PRESS OPERATOR POC GLUCOSE Routine 11/05/2023 4:54 PM DIGITAL COLOR PRESS OPERATOR MAGNESIUM Routine 11/05/2023 4:48 PM DIGITAL COLOR PRESS OPERATOR POTASSIUM Routine 11/05/2023 4:48 PM DIGITAL COLOR PRESS OPERATOR CT HEAD NO IV CONTRAST Timed 11:44 AM DIGITAL COLOR PRESS OPERATOR POC GLUCOSE Routine 11/05/2023 11:11 AM DIGITAL COLOR PRESS OPERATOR EKG ADULT (12-LEAD) Routine 11/05/2023 6 :38 AM DIGITAL COLOR PRESS OPERATOR POC GLUCOSE Routine 11/05/2023 6:07 AM DIGITAL COLOR PRESS OPERATOR CT HEAD NO IV CONTRAST Timed 4:54 AM DIGITAL COLOR PRESS OPERATOR PC MAGNESIUM, SERUM Routine 11/05/2023 4 :27 AM DIGITAL COLOR PRESS OPERATOR PC PHOSPHORUS INORGANIC(PHOSPHATE) Routine 11/05/2023 4:27 AM DIGITAL COLOR PRESS OPERATOR PC GASES,BLOOD,ANY COMB OF PH,PCD2,PO2,CO2,HCO2 Routine 11/05/2023 4:27 AM DIGITAL COLOR PRESS OPERATOR PC LAB CBC/PLT Routine 11/05/2023 4:27 AM DIGITAL COLOR PRESS OPERATOR TC LAB BLOOD DRAW BY VENIPUNCTURE Routine 11/05/2023 4:27 AM DIGITAL COLOR PRESS OPERATOR PC TROPONIN QUANTITATIVE Timed 11/05/2023 4:27 AM DIGITAL COLOR PRESS OPERATOR PROTHROMBIN (PT) & INR Timed 4:27 AM DIGITAL COLOR PRESS OPERATOR PC TROPONIN QUANTITATIVE Timed 11/05/2023 2:58 AM DIGITAL COLOR PRESS OPERATOR PROTHROMBIN (PT) & INR STAT 1:32 AM DIGITAL COLOR PRESS OPERATOR PHOSPHORUS STAT 11/05/2023 1:32 AM DIGITAL COLOR PRESS OPERATOR PANEL BASIC METABOLIC (BMP) STAT 11/05/2023 1:32 AM DIGITAL COLOR PRESS OPERATOR MAGNESIUM STAT 11/05/2023 1:32 AM DIGITAL COLOR PRESS OPERATOR PANEL HEPATIC FUNCTION STAT 1:32 AM DIGITAL COLOR PRESS OPERATOR FIBRINOGEN STAT 11/05/2023 1:32 AM DIGITAL COLOR PRESS OPERATOR CK, TOTAL STAT 11/05/2023 1:32 AM DIGITAL COLOR PRESS OPERATOR PC LAB CBC/PLT STAT 11/05/2023 1:32 AM DIGITAL COLOR PRESS OPERATOR PC LAB PTT STAT 11/05/2023 1:32 AM DIGITAL COLOR PRESS OPERATOR PC TROPONIN QUANTITATIVE Timed 11/05/2023 1:18 AM DIGITAL COLOR PRESS OPERATOR PC LACTATE (LACTIC ACID) STAT 11/05/2023 1:18 AM DIGITAL COLOR PRESS OPERATOR PC IONIZED,CALCIUM STAT 11/05/2023 1: 18 AM DIGITAL COLOR PRESS OPERATOR PC GASES,BLOOD,ANY COMB OF PH,PCD2,PO2,CO2,HCO2 STAT 11/05/2023 1:18 AM DIGITAL COLOR PRESS OPERATOR CT HEAD-NECK - ANGIO - W/IV CON STAT 11/05/2023 12:09 AM DIGITAL COLOR PRESS OPERATOR PC LAB COMPLETE UA STAT 11/04/2023 11 :55 PM DIGITAL COLOR PRESS OPERATOR PF INSERT CATH,ART,PERCUT,SANTA ERM Routine 11/04/2023 11:43 PM DIGITAL COLOR PRESS OPERATOR ED EKG (12-LEAD) Routine 11/04/2023 11:2 5 PM DIGITAL COLOR PRESS OPERATOR CT SPINE THORACIC NO IV CON STAT 11/04/2023 11:05 PM DIGITAL COLOR PRESS OPERATOR CT SPINE LUMBAR NO IV CON STAT 11/04/2023 11:05 PM DIGITAL COLOR PRESS OPERATOR CT SPINE CERVICAL NO IV CON STAT 11/04/2023 11:05 PM DIGITAL COLOR PRESS OPERATOR CT HEAD NO IV CONTRAST STAT 11:05 PM DIGITAL COLOR PRESS OPERATOR CT CHEST/ABD/PELVIS W/IV CONT STAT 11/04/2023 11:05 PM DIGITAL COLOR PRESS OPERATOR XR CHEST 1 VIEW AP OR PA* STAT 11/04/2023 10:57 PM DIGITAL COLOR PRESS OPERATOR PC ELECTROLYTES PANEL STAT 11/04/2023 10:48 PM DIGITAL COLOR PRESS OPERATOR TC LAB ER STAT TOTAL HGB STAT 11/04/2023 10:48 PM DIGITAL COLOR PRESS OPERATOR PC LAB ED INR STAT 11/04/2023 10:45 PM DIGITAL COLOR PRESS OPERATOR TC LAB BLOOD DRAW BY VENIPUNCTURE Routine 11/04/2023 10:45 PM DIGITAL COLOR PRESS OPERATOR EXTRA TUBE - SST Routine 11/04/2023 10:4 5 PM DIGITAL COLOR PRESS OPERATOR PC TROPONIN QUANTITATIVE STAT 11/04/2023 10:45 PM DIGITAL COLOR PRESS OPERATOR PC LAB CBC W/DIFF & PLT STAT 11/04/2023 10:45 PM DIGITAL COLOR PRESS OPERATOR PRECAUTIONARY TUBE STAT 11/04/2023 10 :45 PM DIGITAL COLOR PRESS OPERATOR PC LACTATE (LACTIC ACID) STAT 11/04/2023 10:45 PM DIGITAL COLOR PRESS OPERATOR PC GASES,BLOOD,ANY COMB OF PH,PCD2,PO2,CO2,HCO2 STAT 11/04/2023 10:45 PM DIGITAL COLOR PRESS OPERATOR FIBRINOGEN STAT 11/04/2023 10:45 PM DIGITAL COLOR PRESS OPERATOR PC HEPARIN ASSAY STAT 11/04/2023 10:4 5 PM DIGITAL COLOR PRESS OPERATOR PC LAB PTT STAT 11/04/2023 10:45 PM DIGITAL COLOR PRESS OPERATOR ED US CRITICAL CARE STAT 11/04/2023 1 0:40 PM DIGITAL COLOR PRESS OPERATOR documented in this encounter Results * (ABNORMAL) PANEL BASIC METABOLIC (BMP) (11/16/2023 7:22 AM DIGITAL COLOR PRESS OPERATOR) Sodium 143 135 - 148 mEq/L [facility] Potassium 3.9 3.5 - 5.3 mEq/L [facility] Chloride 105 92 - 108 mEq/L [facility] CO2 27 22 - 30 mEq/L [facility] AnGap 11 8 - 16 mEq/L [facility] Glucose 87 70 - 100 mg/dL [facility] BUN 23 8 - 23 mg/dL [facility] Creatinine 1.19(H) 0.50 - 1.00 mg/dL [facility] Calcium 9.4 8.8 - 10.2 mg/dL [facility] eGFR (2020 CKD-EPI) 46(L) >=60 ml/min/1.7 3m2 [facility] Comment: The estimated glomerular filtration rate (eGFR) was calculated using the CKD-EPI 2020 creatinine equation, which does not include race as a factor. This equation is validated in individuals 18 years of age and older, and eGFR is normalized to a body surface area of 1.73m^2. Blood 11/16/2023 7:22 AM DIGITAL COLOR PRESS OPERATOR 11/16/2023 7:43 AM DIGITAL COLOR PRESS OPERATOR Jesusita Aiken APRN, EMILY LABORATO RY Performing Organization Address City/[facility]/ZIP Co de Phone Number [facility] [place] [address] * POC GLUCOSE (11/16/2023 6:58 AM DIGITAL COLOR PRESS OPERATOR) POC Glucose 84 70 - 100 mg/dL [facility] Blood 11/16/2023 6:58 AM DIGITAL COLOR PRESS OPERATOR Devin Dougherty MD LABORATORY Performing Organization Address City/[facility]/ZIP Co de Phone Number [facility] [address] [place] [address], [place] * POC GLUCOSE (11/15/2023 9:15 PM DIGITAL COLOR PRESS OPERATOR) POC Glucose 83 70 - 100 mg/dL [facility] Blood 11/15/2023 9:15 PM DIGITAL COLOR PRESS OPERATOR Devin Dougherty MD LABORATORY Performing Organization Address City/[facility]/ZIP Co de Phone Number [facility] [address] [place] [address], [place] * POC GLUCOSE (11/15/2023 4:09 PM DIGITAL COLOR PRESS OPERATOR) POC Glucose 91 70 - 100 mg/dL [facility] Blood 11/15/2023 4:09 PM DIGITAL COLOR PRESS OPERATOR Devin Dougherty MD LABORATORY Performing Organization Address City/[facility] Co de Phone Number [facility] [address] [place] [address], [place] * POC GLUCOSE (11/15/2023 12:46 PM DIGITAL COLOR PRESS OPERATOR) POC Glucose 88 70 - 100 mg/dL [facility] Blood 11/15/2023 12:4 6 PM DIGITAL COLOR PRESS OPERATOR Devin Dougherty MD LABORATORY Performing Organization Address City/[facility] Co de Phone Number [facility] [address] [place] [address], [place] * PANEL BASIC METABOLIC (BMP) (11/15/2023 7:39 AM DIGITAL COLOR PRESS OPERATOR) CO2 27 22 - 30 mEq/L [facility] Glucose 96 70 - 100 mg/dL [facility] BUN 20 8 - 23 mg/dL [facility] Creatinine 0.89 0.50 - 1.00 mg/dL [facility] Calcium 9.4 8.8 - 10.2 mg/dL [facility] Sodium 142 135 - 148 mEq/L [facility] Potassium 3.7 3.5 - 5.3 mEq/L [facility] Chloride 104 92 - 108 mEq/L [facility] eGFR (2020 CKD-EPI) 65 >=60 ml/min/1.7 3m2 [facility] Comment: The estimated glomerular filtration rate (eGFR) was calculated using the CKD-EPI 2020 creatinine equation, which does not include race as a factor. This equation is validated in individuals 18 years of age and older, and eGFR is normalized to a body surface area of 1.73m^2. AnGap 11 8 - 16 mEq/L [facility] Blood 11/15/2023 7:39 AM DIGITAL COLOR PRESS OPERATOR 11/15/2023 8:31 AM DIGITAL COLOR PRESS OPERATOR Jesusita Aiken APRN, [employer] READING TEACHER LABORATO RY [facility] [place] [address] * (ABNORMAL) POC GLUCOSE (11/15/2023 6:11 AM DIGITAL COLOR PRESS OPERATOR) POC Glucose 105(H) 70 - 100 mg/dL [facility] Blood 11/15/2023 6:11 AM DIGITAL COLOR PRESS OPERATOR Devin Dougherty MD LABORATORY Performing Organization Address City/[facility] Co de Phone Number [facility] [id number], [place] * (ABNORMAL) POC GLUCOSE (11/14/2023 9:02 PM DIGITAL COLOR PRESS OPERATOR) POC Glucose 168(H) 70 - 100 mg/dL [facility] Blood 11/14/2023 9:02 PM DIGITAL COLOR PRESS OPERATOR Devin Dougherty MD LABORATORY Performing Organization Address City/[facility] Co de Phone Number [facility] [address] [place] [address], [place] * (ABNORMAL) POC GLUCOSE (11/14/2023 4:21 PM DIGITAL COLOR PRESS OPERATOR) POC Glucose 128(H) 70 - 100 mg/dL [facility] Blood 11/14/2023 4:21 PM DIGITAL COLOR PRESS OPERATOR Devin Dougherty MD LABORATORY Performing Organization Address City/[facility] Co de Phone Number [facility] [address] [place] [address], [place] * POC GLUCOSE (11/14/2023 12:19 PM DIGITAL COLOR PRESS OPERATOR) POC Glucose 84 70 - 100 mg/dL [facility] Blood 11/14/2023 12:1 9 PM DIGITAL COLOR PRESS OPERATOR Devin Dougherty MD LABORATORY Performing Organization Address City/[facility] Co de Phone Number [facility] [address] [place] [address], [place] * (ABNORMAL) PANEL BASIC METABOLIC (BMP) (11/14/2023 8:59 AM DIGITAL COLOR PRESS OPERATOR) CO2 28 22 - 30 mEq/L [facility] Glucose 158(H) 70 - 100 mg/dL [facility] BUN 19 8 - 23 mg/dL [facility] Creatinine 0.79 0.50 - 1.00 mg/dL [facility] Calcium 9.3 8.8 - 10.2 mg/dL [facility] eGFR (2020 CKD-EPI) 75 >=60 ml/min/1.7 3m2 [facility] Comment: The estimated glomerular filtration rate (eGFR) was calculated using the CKD-EPI 2020 creatinine equation, which does not include race as a factor. This equation is validated in individuals 18 years of age and older, and eGFR is normalized to a body surface area of 1.73m^2. Sodium 142 135 - 148 mEq/L [facility] Potassium 3.8 3.5 - 5.3 mEq/L [facility] Chloride 103 92 - 108 mEq/L [facility] AnGap 11 8 - 16 mEq/L [facility] Blood 11/14/2023 8:59 AM DIGITAL COLOR PRESS OPERATOR 11/14/2023 9:21 AM DIGITAL COLOR PRESS OPERATOR Jesusita Aiken APRN, [employer] READING TEACHER LABORATO RY [facility] [address] [place] [id number] * (ABNORMAL) POC GLUCOSE (11/14/2023 8:11 AM DIGITAL COLOR PRESS OPERATOR) POC Glucose 139(H) 70 - 100 mg/dL [facility] Blood 11/14/2023 8:11 AM DIGITAL COLOR PRESS OPERATOR Devin Dougherty MD LABORATORY [facility] [address] [place] [id number], [place] * (ABNORMAL) POC GLUCOSE (11/13/2023 9:15 PM DIGITAL COLOR PRESS OPERATOR) POC Glucose 120(H) 70 - 100 mg/dL [facility] Blood 11/13/2023 9:15 PM DIGITAL COLOR PRESS OPERATOR Devin Dougherty MD LABORATORY Performing Organization Address City/[facility] Co de Phone Number [facility] POINT OF [address] [address], [place] * (ABNORMAL) POC GLUCOSE (11/13/2023 4:03 PM DIGITAL COLOR PRESS OPERATOR) POC Glucose 169(H) 70 - 100 mg/dL [facility] Blood 11/13/2023 4:03 PM DIGITAL COLOR PRESS OPERATOR Devin Dougherty MD LABORATORY [facility] [address] [place] [id number], [place] * (ABNORMAL) POC GLUCOSE (11/13/2023 11:21 AM DIGITAL COLOR PRESS OPERATOR) POC Glucose 166(H) 70 - 100 mg/dL [facility] Blood 11/13/2023 11:2 1 AM DIGITAL COLOR PRESS OPERATOR Devin Dougherty MD LABORATORY Performing Organization Address [facility] Co de Phone Number [facility] [address] [place] [address] * (ABNORMAL) PANEL BASIC METABOLIC (BMP) (11/13/2023 6:41 AM DIGITAL COLOR PRESS OPERATOR) CO2 30 22 - 30 mEq/L [facility] Glucose 121(H) 70 - 100 mg/dL [facility] BUN 24(H) 8 - 23 mg/dL [facility] Creatinine 0.87 0.50 - 1.00 mg/dL [facility] Calcium 8.9 8.8 - 10.2 mg/dL [facility] Sodium 143 135 - 148 mEq/L [facility] Potassium 3.0(L) 3.5 - 5.3 mEq/L [facility] Chloride 103 92 - 108 mEq/L [facility] eGFR (2020 CKD-EPI) 67 >=60 ml/min/1.7 3m2 [facility] Comment: The estimated glomerular filtration rate (eGFR) was calculated using the CKD-EPI 2020 creatinine equation, which does not include race as a factor. This equation is validated in individuals 18 years of age and older, and eGFR is normalized to a body surface area of 1.73m^2. AnGap 10 8 - 16 mEq/L [facility] Blood 11/13/2023 6:41 AM DIGITAL COLOR PRESS OPERATOR 11/13/2023 7:37 AM DIGITAL COLOR PRESS OPERATOR Quinn Covarrubias MD LABORATORY Performing Organization Address [facility] Co de Phone Number [facility] [place] [address] * (ABNORMAL) POC GLUCOSE (11/13/2023 6:31 AM DIGITAL COLOR PRESS OPERATOR) POC Glucose 128(H) 70 - 100 mg/dL [facility] Blood 11/13/2023 6:31 AM DIGITAL COLOR PRESS OPERATOR Devin Dougherty MD LABORATORY Performing Organization Address City/[facility]/ZIP Co de Phone Number [facility] [address] [place] [phone], [place] * POC GLUCOSE (11/12/2023 9:21 PM DIGITAL COLOR PRESS OPERATOR) [facility] POC Glucose 97 70 - 100 mg/dL [facility] Comment:R2 <=% Blood 11/12/2023 9:21 PM DIGITAL COLOR PRESS OPERATOR Devin Dougherty MD LABORATORY Performing Organization Address [facility] Co de Phone Number [facility] [address] [place] [address], [place] * POC GLUCOSE (11/12/2023 4:12 PM DIGITAL COLOR PRESS OPERATOR) [facility] POC Glucose 89 70 - 100 mg/dL [facility] Blood 11/12/2023 4:12 PM DIGITAL COLOR PRESS OPERATOR Devin Dougherty MD LABORATORY Performing Organization Address [facility] Co de Phone Number [facility] [address] [place] [address], [place] * (ABNORMAL) PANEL BASIC METABOLIC (BMP) (11/12/2023 1:01 PM DIGITAL COLOR PRESS OPERATOR) [facility] Sodium 144 135 - 148 mEq/L [facility] Potassium 3.4(L) 3.5 - 5.3 mEq/L [facility] Chloride 104 92 - 108 mEq/L [facility] CO2 31(H) 22 - 30 mEq/L [facility] AnGap 9 8 - 16 mEq/L [facility] Glucose 118(H) 70 - 100 mg/dL [facility] BUN 29(H) 8 - 23 mg/dL [facility] Creatinine 0.92 0.50 - 1.00 mg/dL [facility] Calcium 9.3 8.8 - 10.2 mg/dL [facility] eGFR (2020 CKD-EPI) 63 >=60 ml/min/1.7 3m2 [facility] Comment: The estimated glomerular filtration rate (eGFR) was calculated using the CKD-EPI 2020 creatinine equation, which does not include race as a factor. This equation is validated in individuals 18 years of age and older, and eGFR is normalized to a body surface area of 1.73m^2. Blood 11/12/2023 1:01 PM DIGITAL COLOR PRESS OPERATOR 11/12/2023 1:44 PM DIGITAL COLOR PRESS OPERATOR Quinn Covarrubias MD LABORATORY [facility] [address] [place] [address] * (ABNORMAL) POC GLUCOSE (11/12/2023 12:14 PM DIGITAL COLOR PRESS OPERATOR) POC Glucose 117(H) 70 - 100 mg/dL [facility] Blood 11/12/2023 12:1 4 PM DIGITAL COLOR PRESS OPERATOR Devin Dougherty MD LABORATORY Performing Organization Address City/[facility]/ZIP Co de Phone Number [facility] POINT OF [facility] [address] [place] [phone], [place] * POC GLUCOSE (11/12/2023 6:09 AM DIGITAL COLOR PRESS OPERATOR) POC Glucose 80 70 - 100 mg/dL [facility] POINT OF CARE Blood 11/12/2023 6:09 AM DIGITAL COLOR PRESS OPERATOR Devin Dougherty MD LABORATORY Performing Organization Address City/[facility]/ZIP Co de Phone Number [facility] POINT OF [facility]ARE [address] [place] [phone], [place] * POC GLUCOSE (11/11/2023 8:48 PM DIGITAL COLOR PRESS OPERATOR) POC Glucose 99 70 - 100 mg/dL [facility] POINT OF [facility]ARE Blood 11/11/2023 8:48 PM DIGITAL COLOR PRESS OPERATOR Devin Dougherty MD LABORATORY [facility] [address] [place] [phone], [place] * POC GLUCOSE (11/11/2023 4:11 PM DIGITAL COLOR PRESS OPERATOR) POC Glucose 93 70 - 100 mg/dL [facility]ARE Blood 11/11/2023 4:11 PM DIGITAL COLOR PRESS OPERATOR Devin Dougherty MD LABORATORY Performing Organization Address City/[facility]/ZIP Co de Phone Number [facility] POINT OF CARE [address] [place] [phone], [place] * POC GLUCOSE (11/11/2023 11:47 AM DIGITAL COLOR PRESS OPERATOR) Pathologist [facility] POC Glucose 89 70 - 100 mg/dL [facility] POINT OF CARE Blood 11/11/2023 11:4 7 AM DIGITAL COLOR PRESS OPERATOR Devin Dougherty MD LABORATORY Performing Organization Address City/[facility] Co de Phone Number [facility] POINT [facility] [address] [place] [phone], [place] * PHOSPHORUS (11/11/2023 6:09 AM DIGITAL COLOR PRESS OPERATOR) Pathologist [facility] Phosphorus 3.5 2.5 - 4.5 mg/dL [facility] Blood 11/11/2023 6:09 AM DIGITAL COLOR PRESS OPERATOR 11/11/2023 6:36 AM DIGITAL COLOR PRESS OPERATOR Quinn Covarrubias MD LABORATORY Performing Organization Address City/[facility] Co de Phone Number [facility] [address] [phone] * (ABNORMAL) PANEL BASIC METABOLIC (BMP) (11/11/2023 6:09 AM DIGITAL COLOR PRESS OPERATOR) Pathologist [facility] Sodium 143 135 - 148 mEq/L [facility] Potassium 3.3(L) 3.5 - 5.3 mEq/L [facility] Chloride 106 92 - 108 mEq/L [facility] AnGap 8 8 - 16 mEq/L [facility] CO2 29 22 - 30 mEq/L [facility] Glucose 79 70 - 100 mg/dL [facility] BUN 30(H) 8 - 23 mg/dL [facility] Creatinine 0.83 0.50 - 1.00 mg/dL [facility] Calcium 9.0 8.8 - 10.2 mg/dL [facility] eGFR (2020 CKD-EPI) 71 >=60 ml/min/1.7 3m2 [facility] Comment: The estimated glomerular filtration rate (eGFR) was calculated using the CKD-EPI 2020 creatinine equation, which does not include race as a factor. This equation is validated in individuals 18 years of age and older, and eGFR is normalized to a body surface area of 1.73m^2. Blood 11/11/2023 6:09 AM DIGITAL COLOR PRESS OPERATOR 11/11/2023 6:36 AM DIGITAL COLOR PRESS OPERATOR Quinn Covarrubias MD LABORATORY Performing Organization Address City/[facility] Co de Phone Number [facility] [address] [address] * MAGNESIUM (11/11/2023 6:09 AM DIGITAL COLOR PRESS OPERATOR) Pathologist [facility] Magnesium 2.2 1.6 - 2.4 mg/dL [facility] Blood 11/11/2023 6:09 AM DIGITAL COLOR PRESS OPERATOR 11/11/2023 6:36 AM DIGITAL COLOR PRESS OPERATOR Quinn Covarrubias MD LABORATORY Performing Organization Address [facility] Co de Phone Number [facility] [address] [address] * (ABNORMAL) CBC WITH PLATELET (11/11/2023 6:09 AM DIGITAL COLOR PRESS OPERATOR) WBC 5.60 4.00 - 10.00 k/cmm [facility] RBC 3.80(L) 3.90 - 5.20 m/cmm [facility] Hgb 9.5(L) 11.5 - 15.7 g/dL [facility] Hematocrit 31.4(L) 34.0 - 45.0 % [facility] MCV 82.6 80.0 - 100.0 fL [facility] MCH 25.0 25.0 - 32.0 pg [facility] MCHC 30.3(L) 31.0 - 36.0 g/dL [facility] RDW 16.1(H) 11.5 - 14.5 % [facility] Plt 275 150 - 400 k/cmm [facility] MPV 11.8 6.5 - 12.5 fL [facility] Blood 11/11/2023 6:09 AM DIGITAL COLOR PRESS OPERATOR 11/11/2023 6:36 AM DIGITAL COLOR PRESS OPERATOR Quinn Covarrubias MD LABORATORY [facility] [address] [place] [address] * POC GLUCOSE (11/10/2023 8:58 PM DIGITAL COLOR PRESS OPERATOR) POC Glucose 82 70 - 100 mg/dL [facility] Blood 11/10/2023 8:58 PM DIGITAL COLOR PRESS OPERATOR Devin Dougherty MD LABORATORY Performing Organization Address City/[facility]/ZIP Co de Phone Number [facility] [address] [place] [phone], [place] * (ABNORMAL) POC GLUCOSE (11/10/2023 4:16 PM DIGITAL COLOR PRESS OPERATOR) POC Glucose 110(H) 70 - 100 mg/dL [facility] Blood 11/10/2023 4:16 PM DIGITAL COLOR PRESS OPERATOR Devin Dougherty MD LABORATORY Performing Organization Address [facility] Co de Phone Number [facility] [address] [place] [address], [place] * POC GLUCOSE (11/10/2023 11:15 AM DIGITAL COLOR PRESS OPERATOR) POC Glucose 93 70 - 100 mg/dL [facility] Blood 11/10/2023 11:1 5 AM DIGITAL COLOR PRESS OPERATOR Devin Dougherty MD LABORATORY [facility] [address] [place] [address], [place] * PHOSPHORUS (11/10/2023 6:17 AM DIGITAL COLOR PRESS OPERATOR) Phosphorus 3.8 2.5 - 4.5 mg/dL [facility] Blood 11/10/2023 6:17 AM DIGITAL COLOR PRESS OPERATOR 11/10/2023 6:32 AM DIGITAL COLOR PRESS OPERATOR Quinn Covarrubias MD LABORATORY Performing Organization Address City/[facility] Co de Phone Number [facility] [address] [address] * (ABNORMAL) PANEL BASIC METABOLIC (BMP) (11/10/2023 6:17 AM DIGITAL COLOR PRESS OPERATOR) Sodium 145 135 - 148 mEq/L [facility] Potassium 3.6 3.5 - 5.3 mEq/L [facility] Chloride 107 92 - 108 mEq/L [facility] CO2 27 22 - 30 mEq/L [facility] Glucose 109(H) 70 - 100 mg/dL [facility] BUN 40(H) 8 - 23 mg/dL [facility] Creatinine 1.15(H) 0.50 - 1.00 mg/dL [facility] Calcium 9.1 8.8 - 10.2 mg/dL [facility] AnGap 11 8 - 16 mEq/L [facility] eGFR (2020 CKD-EPI) 48(L) >=60 ml/min/1.7 3m2 [facility] Comment: The estimated glomerular filtration rate (eGFR) was calculated using the CKD-EPI 2020 creatinine equation, which does not include race as a factor. This equation is validated in individuals 18 years of age and older, and eGFR is normalized to a body surface area of 1.73m^2. Blood 11/10/2023 6:17 AM DIGITAL COLOR PRESS OPERATOR 11/10/2023 6:32 AM DIGITAL COLOR PRESS OPERATOR Quinn Covarrubias MD LABORATORY Performing Organization Address City/[facility]/ZIP Co de Phone Number [facility] [address] [address] * MAGNESIUM (11/10/2023 6:17 AM DIGITAL COLOR PRESS OPERATOR) Magnesium 2.3 1.6 - 2.4 mg/dL [facility] Blood 11/10/2023 6:17 AM DIGITAL COLOR PRESS OPERATOR 11/10/2023 6:32 AM DIGITAL COLOR PRESS OPERATOR Quinn Covarrubias MD LABORATORY Performing Organization Address City/[facility]/ZIP Co de Phone Number [facility] [address] [address] * (ABNORMAL) CBC WITH PLATELET (11/10/2023 6:17 AM DIGITAL COLOR PRESS OPERATOR) Pathologist [facility] WBC 6.82 4.00 - 10.00 k/cmm [facility] RBC 3.64(L) 3.90 - 5.20 m/cmm [facility] Hgb 9.1(L) 11.5 - 15.7 g/dL [facility] Hematocrit 30.3(L) 34.0 - 45.0 % [facility] MCV 83.2 80.0 - 100.0 fL [facility] MCH 25.0 25.0 - 32.0 pg [facility] MCHC 30.0(L) 31.0 - 36.0 g/dL [facility] RDW 16.1(H) 11.5 - 14.5 % [facility] Plt 259 150 - 400 k/cmm [facility] MPV 11.8 6.5 - 12.5 fL [facility] Blood 11/10/2023 6:17 AM DIGITAL COLOR PRESS OPERATOR 11/10/2023 6:32 AM DIGITAL COLOR PRESS OPERATOR Quinn Covarrubias MD LABORATORY Performing Organization Address [facility]/ZIP Co de Phone Number [facility] [address] [address] * (ABNORMAL) POC GLUCOSE (11/09/2023 9:41 PM DIGITAL COLOR PRESS OPERATOR) Pathologist [facility] POC Glucose 136(H) 70 - 100 mg/dL [facility] Blood 11/09/2023 9:41 PM DIGITAL COLOR PRESS OPERATOR Devin Dougherty MD LABORATORY [facility] [address] [place] [address], [place] * (ABNORMAL) POC GLUCOSE (11/09/2023 3:58 PM DIGITAL COLOR PRESS OPERATOR) Pathologist [facility] POC Glucose 157(H) 70 - 100 mg/dL [facility] Blood 11/09/2023 3:58 PM DIGITAL COLOR PRESS OPERATOR Devin Dougherty MD LABORATORY Performing Organization Address [facility] Co de Phone Number [facility] [address] [place] [address], [place] * ANTI XA ASSAY LMW HEPARIN (11/09/2023 2:18 PM DIGITAL COLOR PRESS OPERATOR) Anti XA LMW 0.32 IU/mL [facility] Comment: Anti Xa Assay LMW Heparin Therapeutic Ranges: 0.4-1.1 IU/mL for twice daily 1.0-2.0 IU/mL for once daily Blood 11/09/2023 2:18 PM DIGITAL COLOR PRESS OPERATOR 11/09/2023 2:29 PM DIGITAL COLOR PRESS OPERATOR Quinn Covarrubias MD LABORATORY Performing Organization Address [facility] Co de Phone Number [facility] [address] [address] * (ABNORMAL) POC GLUCOSE (11/09/2023 11:28 AM DIGITAL COLOR PRESS OPERATOR) POC Glucose 174(H) 70 - 100 mg/dL [facility] Blood 11/09/2023 11:2 8 AM DIGITAL COLOR PRESS OPERATOR Devin Dougherty MD LABORATORY Performing Organization Address [facility] Co de Phone Number [facility] [address] [place] [phone], [place] * XR FOOT RIGHT 3 V AP/OBL/LAT* (11/09/2023 10:36 AM DIGITAL COLOR PRESS OPERATOR) Anatomical Region Laterality Modality Foot Computed Radiogr aphy 11/09/2023 10:4 7 AM DIGITAL COLOR PRESS OPERATOR Impressions 11/09/2023 10:50 AM DIGITAL COLOR PRESS OPERATOR Impression: No acute osseous abnormality. Generalized osteopenia. Reading Radiologist: Angela Camp Narrative 11/09/2023 10:50 AM DIGITAL COLOR PRESS OPERATOR Technique: XR FOOT RIGHT 3 V AP/OBL/LAT* [...] osteopenia. Reading Radiologist: Angela Camp Jesusita Aiken [employer] READING TEACHER RAD XRAY * POC GLUCOSE (11/09/2023 5:46 AM DIGITAL COLOR PRESS OPERATOR) [facility] Signature POC Glucose 97 70 - 100 mg/dL [facility] Blood 11/09/2023 5:46 AM DIGITAL COLOR PRESS OPERATOR Devin Dougherty MD LABORATORY Performing Organization Address City/[facility]/ZIP Co de Phone Number [facility] [address] [place] [address] * (ABNORMAL) VALPROATE (DEPAKOTE) LEVEL (11/09/2023 5:41 AM DIGITAL COLOR PRESS OPERATOR) Valproate 31.8(L) 50.0 - 100.0 mcg/mL [facility] Blood 11/09/2023 5:41 AM DIGITAL COLOR PRESS OPERATOR 11/09/2023 8:19 AM DIGITAL COLOR PRESS OPERATOR Quinn Covarrubias MD LABORATORY [facility] [place] [address] * PHOSPHORUS (11/09/2023 5:41 AM DIGITAL COLOR PRESS OPERATOR) Phosphorus 3.9 2.5 - 4.5 mg/dL [facility] Blood 11/09/2023 5:41 AM DIGITAL COLOR PRESS OPERATOR 11/09/2023 6:38 AM DIGITAL COLOR PRESS OPERATOR Quinn Covarrubias MD LABORATORY Performing Organization Address [facility] Co de Phone Number [facility] [address] [address] * (ABNORMAL) PANEL BASIC METABOLIC (BMP) (11/09/2023 5:41 AM DIGITAL COLOR PRESS OPERATOR) Sodium 142 135 - 148 mEq/L [facility] Potassium 3.1(L) 3.5 - 5.3 mEq/L [facility] Chloride 105 92 - 108 mEq/L [facility] CO2 30 22 - 30 mEq/L [facility] Glucose 91 70 - 100 mg/dL [facility] BUN 23 8 - 23 mg/dL [facility] Creatinine 1.09(H) 0.50 - 1.00 mg/dL [facility] Calcium 8.8 8.8 - 10.2 mg/dL [facility] AnGap 7(L) 8 - 16 mEq/L [facility] eGFR (2020 CKD-EPI) 51(L) >=60 ml/min/1.7 3m2 [facility] Comment: The estimated glomerular filtration rate (eGFR) was calculated using the CKD-EPI 2020 creatinine equation, which does not include race as a factor. This equation is validated in individuals 18 years of age and older, and eGFR is normalized to a body surface area of 1.73m^2. Blood 11/09/2023 5:41 AM DIGITAL COLOR PRESS OPERATOR 11/09/2023 6:38 AM DIGITAL COLOR PRESS OPERATOR Quinn Covarrubias MD LABORATORY Performing Organization Address [facility] Co de Phone Number [facility] [address] [address] * MAGNESIUM (11/09/2023 5:41 AM DIGITAL COLOR PRESS OPERATOR) Magnesium 2.1 1.6 - 2.4 mg/dL [facility] Blood 11/09/2023 5:41 AM DIGITAL COLOR PRESS OPERATOR 11/09/2023 6:38 AM DIGITAL COLOR PRESS OPERATOR Quinn Covarrubias MD LABORATORY Performing Organization Address [facility] Co de Phone Number [facility] [address] [address] * (ABNORMAL) CBC WITH PLATELET (11/09/2023 5:41 AM DIGITAL COLOR PRESS OPERATOR) Pathologist [facility] WBC 6.97 4.00 - 10.00 k/cmm [facility] RBC 3.42(L) 3.90 - 5.20 m/cmm [facility] Hgb 8.8(L) 11.5 - 15.7 g/dL [facility] Hematocrit 28.4(L) 34.0 - 45.0 % [facility] MCV 83.0 80.0 - 100.0 fL [facility] MCH 25.7 25.0 - 32.0 pg [facility] MCHC 31.0 31.0 - 36.0 g/dL [facility] RDW 16.0(H) 11.5 - 14.5 % [facility] Plt 227 150 - 400 k/cmm [facility] MPV 12.0 6.5 - 12.5 fL [facility] Blood 11/09/2023 5:41 AM DIGITAL COLOR PRESS OPERATOR 11/09/2023 6:38 AM DIGITAL COLOR PRESS OPERATOR Quinn Covarrubias MD LABORATORY [facility] [place] [address] * (ABNORMAL) POC GLUCOSE (11/08/2023 8:40 PM DIGITAL COLOR PRESS OPERATOR) [facility] POC Glucose 125(H) 70 - 100 mg/dL [facility] Blood 11/08/2023 8:40 PM DIGITAL COLOR PRESS OPERATOR Devin Dougherty MD LABORATORY [facility] [address] [place] [address], * PHOSPHORUS (11/08/2023 4:20 PM DIGITAL COLOR PRESS OPERATOR) Pathologist [facility] Phosphorus 3.5 2.5 - 4.5 mg/dL [facility] Blood 11/08/2023 4:20 PM DIGITAL COLOR PRESS OPERATOR 11/08/2023 4:38 PM DIGITAL COLOR PRESS OPERATOR Jesusita K EMLIY Aiken APRNNATE RY Performing Organization Address [facility] Co de Phone Number [facility] [address] [place] [phone] * MAGNESIUM (11/08/2023 4:20 PM DIGITAL COLOR PRESS OPERATOR) Magnesium 2.0 1.6 - 2.4 mg/dL [facility] Blood 11/08/2023 4:20 PM DIGITAL COLOR PRESS OPERATOR 11/08/2023 4:38 PM DIGITAL COLOR PRESS OPERATOR Jesusita Wild Nelli CHO EMILY MORENOATO RY Performing Organization Address [facility] de Phone Number [facility] [address] [address] * (ABNORMAL) PANEL BASIC METABOLIC (BMP) (11/08/2023 4:20 PM DIGITAL COLOR PRESS OPERATOR) Sodium 142 135 - 148 mEq/L [facility] Potassium 3.4(L) 3.5 - 5.3 mEq/L [facility] Chloride 105 92 - 108 mEq/L [facility] CO2 28 22 - 30 mEq/L [facility] AnGap 9 8 - 16 mEq/L [facility] Glucose 149(H) 70 - 100 mg/dL [facility] BUN 17 8 - 23 mg/dL [facility] Creatinine 0.82 0.50 - 1.00 mg/dL [facility] Calcium 8.9 8.8 - 10.2 mg/dL [facility] eGFR (2020 CKD-EPI) 72 >=60 ml/min/1.7 3m2 [facility] Comment: The estimated glomerular filtration rate (eGFR) was calculated using the CKD-EPI 2020 creatinine equation, which does not include race as a factor. This equation is validated in individuals 18 years of age and older, and eGFR is normalized to a body surface area of 1.73m^2. Blood 11/08/2023 4:20 PM DIGITAL COLOR PRESS OPERATOR 11/08/2023 4:38 PM DIGITAL COLOR PRESS OPERATOR Jesusita K Nelli CHO CNP JOSHATO RY Performing Organization Address City/[facility]/ZIP Co de Phone Number [facility] [address] [address] * (ABNORMAL) CBC WITH PLATELET (11/08/2023 4:20 PM DIGITAL COLOR PRESS OPERATOR) [facility] WBC 8.46 4.00 - 10.00 k/cmm [facility] RBC 3.65(L) 3.90 - 5.20 m/cmm [facility] Hgb 9.1(L) 11.5 - 15.7 g/dL [facility] Hematocrit 30.2(L) 34.0 - 45.0 % [facility] MCV 82.7 80.0 - 100.0 fL [facility] MCH 24.9(L) 25.0 - 32.0 pg [facility] MCHC 30.1(L) 31.0 - 36.0 g/dL [facility] RDW 16.0(H) 11.5 - 14.5 % [facility] Plt 227 150 - 400 k/cmm [facility] MPV 11.7 6.5 - 12.5 fL [facility] Blood 11/08/2023 4:20 PM DIGITAL COLOR PRESS OPERATOR 11/08/2023 4:38 PM DIGITAL COLOR PRESS OPERATOR EMILY Martinez APRNPAGE HOSPITAL RY Performing Organization Address City/[facility]/ZIP Co de Phone Number [address] [address] * (ABNORMAL) POC GLUCOSE (11/08/2023 3:56 PM DIGITAL COLOR PRESS OPERATOR) [facility] POC Glucose 150(H) 70 - 100 mg/dL [facility] Blood 11/08/2023 3:56 PM DIGITAL COLOR PRESS OPERATOR Devin Dougherty MD LABORATORY Performing Organization Address City/[facility]/ZIP Co de Phone Number [facility] [address] [place] [address] * (ABNORMAL) POC GLUCOSE (11/08/2023 11:03 AM DIGITAL COLOR PRESS OPERATOR) [facility] POC Glucose 162(H) 70 - 100 mg/dL [facility] Blood 11/08/2023 11:0 3 AM DIGITAL COLOR PRESS OPERATOR Devin Dougherty MD LABORATORY [facility] [address] [place] [address], [place] * XR CHEST 1 VIEW AP OR PA* (11/08/2023 6:30 AM DIGITAL COLOR PRESS OPERATOR) Anatomical Region Laterality Modality Chest Computed Radiogr aphy 11/08/2023 6:56 AM DIGITAL COLOR PRESS OPERATOR Impressions 11/08/2023 7:24 AM DIGITAL COLOR PRESS OPERATOR Impression: Stable chest. I have personally reviewed the image(s) and initial interpretation, and I agree with the findings as documented by the resident/fellow. Reading Radiologist: Ronal Hidalgo Reading Resident: Laith Berkowitz Narrative 11/08/2023 7:24 AM DIGITAL COLOR PRESS OPERATOR Technique: XR CHEST 1 VIEW AP OR [...] * (ABNORMAL) POC GLUCOSE (11/08/2023 6:22 AM DIGITAL COLOR PRESS OPERATOR) POC Glucose 126(H) 70 - 100 mg/dL [facility] Blood 11/08/2023 6:22 AM DIGITAL COLOR PRESS OPERATOR Devin Dougherty MD LABORATORY [facility] [address] [place] [address], [place] * (ABNORMAL) POC GLUCOSE (11/07/2023 9:34 PM DIGITAL COLOR PRESS OPERATOR) POC Glucose 109(H) 70 - 100 mg/dL [facility] Blood 11/07/2023 9:34 PM DIGITAL COLOR PRESS OPERATOR Devin Dougherty MD LABORATORY Performing Organization Address City/[facility]/ZIP Co de Phone Number [facility] [address] [place] [address], [place] * (ABNORMAL) POC GLUCOSE (11/07/2023 4:06 PM DIGITAL COLOR PRESS OPERATOR) POC Glucose 160(H) 70 - 100 mg/dL [facility] Blood 11/07/2023 4:06 PM DIGITAL COLOR PRESS OPERATOR Devin Dougherty MD LABORATORY Performing Organization Address [facility] Co de Phone Number [facility] [address] [place] [address], [place] * (ABNORMAL) POC GLUCOSE (11/07/2023 11:45 AM DIGITAL COLOR PRESS OPERATOR) POC Glucose 107(H) 70 - 100 mg/dL [facility] Blood 11/07/2023 11:4 5 AM DIGITAL COLOR PRESS OPERATOR Devin Dougherty MD LABORATORY Performing Organization Address City/[facility] Co de Phone Number [facility] [address] [place] [address], [place] * XR CHEST 2 VIEWS PA + LAT* (11/07/2023 10:07 AM DIGITAL COLOR PRESS OPERATOR) Anatomical Region Laterality Modality Chest Computed Radiogr aphy 11/07/2023 10:0 9 AM DIGITAL COLOR PRESS OPERATOR Impressions 11/07/2023 10:10 AM DIGITAL COLOR PRESS OPERATOR Impression: New left basilar opacities with small effusion concerning for developing infection. Reading Radiologist: Phil Contreras Narrative 11/07/2023 10:10 AM DIGITAL COLOR PRESS OPERATOR Technique: XR CHEST 2 VIEWS PA + [...] RAD XRAY * PROCALCITONIN (11/07/2023 8:34 AM DIGITAL COLOR PRESS OPERATOR) Procalcitonin 0.12 ng/mL [facility] Comment: Results <0.50 ng/mL represent a low risk of severe sepsis and/or septic shock. Results >2.0 ng/mL represent a high risk of severe sepsis and/or septic shock. Blood 11/07/2023 8:34 AM DIGITAL COLOR PRESS OPERATOR 11/07/2023 8:40 AM DIGITAL COLOR PRESS OPERATOR Quinn Covarrubias MD LABORATORY [facility] [address] [address] * (ABNORMAL) CBC WITH PLATELET (11/07/2023 8:34 AM DIGITAL COLOR PRESS OPERATOR) WBC 7.45 4.00 - 10.00 k/cmm [facility] RBC 3.49(L) 3.90 - 5.20 m/cmm [facility] Hgb 8.8(L) 11.5 - 15.7 g/dL [facility] Hematocrit 29.0(L) 34.0 - 45.0 % [facility] MCV 83.1 80.0 - 100.0 fL [facility] MCH 25.2 25.0 - 32.0 pg [facility] MCHC 30.3(L) 31.0 - 36.0 g/dL [facility] RDW 15.9(H) 11.5 - 14.5 % [facility] Plt 249 150 - 400 k/cmm [facility] MPV 11.0 6.5 - 12.5 fL [facility] Blood 11/07/2023 8:34 AM DIGITAL COLOR PRESS OPERATOR 11/07/2023 8:40 AM DIGITAL COLOR PRESS OPERATOR Quinn Covarrubias MD LABORATORY Performing Organization Address [facility] Co de Phone Number [facility] [address] [address] * (ABNORMAL) PANEL BASIC METABOLIC (BMP) (11/07/2023 8:34 AM DIGITAL COLOR PRESS OPERATOR) Sodium 145 135 - 148 mEq/L [facility] Potassium 3.5 3.5 - 5.3 mEq/L [facility] Chloride 111(H) 92 - 108 mEq/L [facility] CO2 26 22 - 30 mEq/L [facility] AnGap 8 8 - 16 mEq/L [facility] Glucose 108(H) 70 - 100 mg/dL [facility] BUN 15 8 - 23 mg/dL [facility] Creatinine 0.90 0.50 - 1.00 mg/dL [facility] Calcium 8.8 8.8 - 10.2 mg/dL [facility] eGFR (2020 CKD-EPI) 64 >=60 ml/min/1.7 3m2 [facility] Comment: The estimated glomerular filtration rate (eGFR) was calculated using the CKD-EPI 2020 creatinine equation, which does not include race as a factor. This equation is validated in individuals 18 years of age and older, and eGFR is normalized to a body surface area of 1.73m^2. Blood 11/07/2023 8:34 AM DIGITAL COLOR PRESS OPERATOR 11/07/2023 8:40 AM DIGITAL COLOR PRESS OPERATOR Quinn Covarrubias MD LABORATORY Performing Organization Address City/[facility]/ZIP Co de Phone Number [facility] [address] [address] * MAGNESIUM (11/07/2023 8:34 AM DIGITAL COLOR PRESS OPERATOR) Magnesium 2.3 1.6 - 2.4 mg/dL [facility] Blood 11/07/2023 8:34 AM DIGITAL COLOR PRESS OPERATOR 11/07/2023 8:40 AM DIGITAL COLOR PRESS OPERATOR Quinn Covarrubias MD LABORATORY Performing Organization Address City/[facility] [place] [address] * (ABNORMAL) PHOSPHORUS (11/07/2023 8:34 AM DIGITAL COLOR PRESS OPERATOR) Phosphorus 5.0(H) 2.5 - 4.5 mg/dL [facility] Blood 11/07/2023 8:34 AM DIGITAL COLOR PRESS OPERATOR 11/07/2023 8:40 AM DIGITAL COLOR PRESS OPERATOR Quinn Covarrubias MD LABORATORY Performing Organization Address [facility] [place] [address] * (ABNORMAL) POC GLUCOSE (11/07/2023 5:45 AM DIGITAL COLOR PRESS OPERATOR) POC Glucose 115(H) 70 - 100 mg/dL [facility] Blood 11/07/2023 5:45 AM DIGITAL COLOR PRESS OPERATOR Devin Dougherty MD LABORATORY Performing Organization Address City/[facility] Co de Phone Number [facility] [address] [place] [address] * (ABNORMAL) POC GLUCOSE (11/06/2023 9:21 PM DIGITAL COLOR PRESS OPERATOR) POC Glucose 149(H) 70 - 100 mg/dL [facility] Blood 11/06/2023 9:21 PM DIGITAL COLOR PRESS OPERATOR Devin Dougherty MD LABORATORY Performing Organization Address City/[facility] Co de Phone Number [facility] [place] [address], [place] * (ABNORMAL) BLOOD GASES (11/06/2023 1:06 PM DIGITAL COLOR PRESS OPERATOR) PH Jalen 7.36 7.32 - 7.42 [facility] PCO2 Ajlen 48 41 - 51 mmHG [facility] PO2 Jalen 86(H) 25 - 40 mmHG [facility] Bicarb Jalen 26 24 - 28 mEq/L [facility] O2 Sat Jalen 96 % [facility] Base Exc Jalen 1.0 -10.0 - 2.0 mEq/L [facility] Blood Venous 11/06/2023 1:06 PM DIGITAL COLOR PRESS OPERATOR 11/06/2023 1:10 PM DIGITAL COLOR PRESS OPERATOR Narrative [facility] - 11/06/2023 1:16 PM DIGITAL COLOR PRESS OPERATOR Draw on Room Air: No O2 LPM (liter/min) Level->4 via mask FiO2 Level: 100 Quinn Covarrubias MD LABORATORY Performing Organization Address City/[facility]/ZIP Co de Phone Number [address] [address] * MAGNESIUM (11/06/2023 1:06 PM DIGITAL COLOR PRESS OPERATOR) Magnesium 2.4 1.6 - 2.4 mg/dL [facility] Blood 11/06/2023 1:06 PM DIGITAL COLOR PRESS OPERATOR 11/06/2023 1:22 PM DIGITAL COLOR PRESS OPERATOR Quinn Covarrubias MD LABORATORY Performing Organization Address City/[facility]/ZIP Co de Phone Number [address] [address] * PHOSPHORUS (11/06/2023 1:06 PM DIGITAL COLOR PRESS OPERATOR) Phosphorus 4.2 2.5 - 4.5 mg/dL [facility] Blood 11/06/2023 1:06 PM DIGITAL COLOR PRESS OPERATOR 11/06/2023 1:22 PM DIGITAL COLOR PRESS OPERATOR Quinn Covarrubias MD LABORATORY Performing Organization Address City/[facility]/ZIP Co de Phone Number [address] [address] * (ABNORMAL) PANEL BASIC METABOLIC (BMP) (11/06/2023 1:06 PM DIGITAL COLOR PRESS OPERATOR) Sodium 141 135 - 148 mEq/L [facility] Potassium 3.8 3.5 - 5.3 mEq/L [facility] Chloride 108 92 - 108 mEq/L [facility] CO2 27 22 - 30 mEq/L [facility] AnGap 6(L) 8 - 16 mEq/L [facility] Glucose 184(H) 70 - 100 mg/dL [facility] BUN 15 8 - 23 mg/dL [facility] Creatinine 0.91 0.50 - 1.00 mg/dL [facility] Calcium 8.7(L) 8.8 - 10.2 mg/dL [facility] eGFR (2020 CKD-EPI) 63 >=60 ml/min/1.7 3m2 [facility] Comment: The estimated glomerular filtration rate (eGFR) was calculated using the CKD-EPI 2020 creatinine equation, which does not include race as a factor. This equation is validated in individuals 18 years of age and older, and eGFR is normalized to a body surface area of 1.73m^2. Blood 11/06/2023 1:06 PM DIGITAL COLOR PRESS OPERATOR 11/06/2023 1:22 PM DIGITAL COLOR PRESS OPERATOR Quinn Covarrubias MD LABORATORY [facility] [address] [address] * (ABNORMAL) CBC WITH PLATELET (11/06/2023 1:06 PM DIGITAL COLOR PRESS OPERATOR) WBC 10.82(H) 4.00 - 10.00 k/cmm [facility] RBC 3.58(L) 3.90 - 5.20 m/cmm [facility] Hgb 9.1(L) 11.5 - 15.7 g/dL [facility] Hematocrit 29.6(L) 34.0 - 45.0 % [facility] MCV 82.7 80.0 - 100.0 fL [facility] MCH 25.4 25.0 - 32.0 pg [facility] MCHC 30.7(L) 31.0 - 36.0 g/dL [facility] RDW 15.8(H) 11.5 - 14.5 % [facility] Plt 253 150 - 400 k/cmm [facility] MPV 11.3 6.5 - 12.5 fL [facility] Blood 11/06/2023 1:06 PM DIGITAL COLOR PRESS OPERATOR 11/06/2023 1:21 PM DIGITAL COLOR PRESS OPERATOR Quinn Covarrubias MD LABORATORY Performing Organization Address [facility] Co de Phone Number [facility] [place] [address] * (ABNORMAL) POC GLUCOSE (11/06/2023 1:04 PM DIGITAL COLOR PRESS OPERATOR) POC Glucose 173(H) 70 - 100 mg/dL [facility] Blood 11/06/2023 1:04 PM DIGITAL COLOR PRESS OPERATOR Devin Dougherty MD LABORATORY Performing Organization Address [facility] Co de Phone Number [facility] [place] [address], * (ABNORMAL) POC GLUCOSE (11/06/2023 10:49 AM DIGITAL COLOR PRESS OPERATOR) POC Glucose 257(H) 70 - 100 mg/dL [facility] Blood 11/06/2023 10:4 9 AM DIGITAL COLOR PRESS OPERATOR Devin Dougherty MD LABORATORY Performing Organization Address [facility] de Phone Number [facility] [address] * (ABNORMAL) GLYCOSYLATED HGB - A1C (11/06/2023 6:31 AM DIGITAL COLOR PRESS OPERATOR) Hemoglobin A1C 8.1(H) 4.0 - 5.6 % [facility] Comment: Increased risk for diabetes (prediabetes): 5.7-6.4% Diabetes: greater than or equal to 6.5% * * In the absence of unequivocal hyperglycemia, diagnosis requires two abnormal test results (i.e. HbA1c and glucose) or two abnormal results from specimens collected at two different timepoints. Estimated Average Glucose 186(H) 68 - 114 [facility] Comment: The ADA recommends reporting an estimated Average Glucose (eAG) with all hemoglobin A1c results using the equation derived from a study of 501 normal diabetic adults. Minority populations were underrepresented and children were not included. The EAG is not equivalent to a fasting glucose. Blood 11/06/2023 6:31 AM DIGITAL COLOR PRESS OPERATOR 11/06/2023 11:28 AM DIGITAL COLOR PRESS OPERATOR Quinn Covarrubias MD LABORATORY Performing Organization Address [facility] Co de Phone Number [facility] [address] [address] * ICU PHOSPHORUS (11/06/2023 6:31 AM DIGITAL COLOR PRESS OPERATOR) Phosphorus 4.1 2.5 - 4.5 mg/dL [facility] Blood 11/06/2023 6:31 AM DIGITAL COLOR PRESS OPERATOR 11/06/2023 7:37 AM DIGITAL COLOR PRESS OPERATOR Devin Dougherty MD LABORATORY Performing Organization Address [facility] de Phone Number [facility] [address] [address] * (ABNORMAL) ICU MAGNESIUM (11/06/2023 6:31 AM DIGITAL COLOR PRESS OPERATOR) Magnesium 2.5(H) 1.6 - 2.4 mg/dL [facility] Blood 11/06/2023 6:31 AM DIGITAL COLOR PRESS OPERATOR 11/06/2023 7:37 AM DIGITAL COLOR PRESS OPERATOR Devin Dougherty MD LABORATORY Performing Organization Address [facility] de Phone Number [facility] [address] [address] * (ABNORMAL) ICU CBC WITH PLATELET (11/06/2023 6:31 AM DIGITAL COLOR PRESS OPERATOR) WBC 9.06 4.00 - 10.00 k/cmm [facility] RBC 3.77(L) 3.90 - 5.20 m/cmm [facility] Hgb 9.6(L) 11.5 - 15.7 g/dL [facility] Hematocrit 30.8(L) 34.0 - 45.0 % [facility] MCV 81.7 80.0 - 100.0 fL [facility] MCH 25.5 25.0 - 32.0 pg [facility] MCHC 31.2 31.0 - 36.0 g/dL [facility] RDW 15.9(H) 11.5 - 14.5 % [facility] Plt 284 150 - 400 k/cmm [facility] MPV 12.1 6.5 - 12.5 fL [facility] Blood 11/06/2023 6:31 AM DIGITAL COLOR PRESS OPERATOR 11/06/2023 7:37 AM DIGITAL COLOR PRESS OPERATOR Devin Dougherty MD LABORATORY Performing Organization Address City/State/[facility] Co de Phone Number [facility] [address] [address] * (ABNORMAL) ICU PANEL BASIC METABOLIC (BMP) (11/06/2023 6:31 AM DIGITAL COLOR PRESS OPERATOR) Sodium 142 135 - 148 mEq/L [facility] Potassium 3.7 3.5 - 5.3 mEq/L [facility] Chloride 107 92 - 108 mEq/L [facility] CO2 26 22 - 30 mEq/L [facility] AnGap 9 8 - 16 mEq/L [facility] Glucose 148(H) 70 - 100 mg/dL [facility] BUN 12 8 - 23 mg/dL [facility] Creatinine 0.77 0.50 - 1.00 mg/dL [facility] Calcium 8.7(L) 8.8 - 10.2 mg/dL [facility] eGFR (2020 CKD-EPI) 77 >=60 ml/min/1.7 3m2 [facility] Comment: The estimated glomerular filtration rate (eGFR) was calculated using the CKD-EPI 2020 creatinine equation, which does not include race as a factor. This equation is validated in individuals 18 years of age and older, and eGFR is normalized to a body surface area of 1.73m^2. Blood 11/06/2023 6:31 AM DIGITAL COLOR PRESS OPERATOR 11/06/2023 7:37 AM DIGITAL COLOR PRESS OPERATOR Devin Dougherty MD LABORATORY Performing Organization Address City/State/[facility] Co de Phone Number [facility] [address] [address] * PROTHROMBIN (PT) & INR (11/06/2023 6:31 AM DIGITAL COLOR PRESS OPERATOR) Pathologist [facility] PT 11.4 9.0 - 12.5 sec [facility] INR 1.0 0.8 - 1.1 [facility] Comment: Warfarin Therapeutic Range: Standard Intensity: 2.0 - 3.0 High Intensity: 2.5 - 3.5 Blood 11/06/2023 6:31 AM DIGITAL COLOR PRESS OPERATOR 11/06/2023 7:37 AM DIGITAL COLOR PRESS OPERATOR Quinn Covarrubias MD LABORATORY Performing Organization Address [facility] Co de Phone Number [address] [address] * (ABNORMAL) POC GLUCOSE (11/06/2023 5:39 AM DIGITAL COLOR PRESS OPERATOR) Pathologist [facility] POC Glucose 149(H) 70 - 100 mg/dL [facility] Blood 11/06/2023 5:39 AM DIGITAL COLOR PRESS OPERATOR Devin Dougherty MD LABORATORY Performing Organization Address [facility] Co de Phone Number [facility] [address] [address], * (ABNORMAL) POC GLUCOSE (11/05/2023 4:54 PM DIGITAL COLOR PRESS OPERATOR) Pathologist [facility] POC Glucose 170(H) 70 - 100 mg/dL [facility] Blood 11/05/2023 4:54 PM DIGITAL COLOR PRESS OPERATOR Devin Dougherty MD LABORATORY Performing Organization Address City/[facility] Co de Phone Number [facility] [address] [address], * (ABNORMAL) MAGNESIUM (11/05/2023 4:48 PM DIGITAL COLOR PRESS OPERATOR) Magnesium 2.8(H) 1.6 - 2.4 mg/dL [facility] Blood 11/05/2023 4:48 PM DIGITAL COLOR PRESS OPERATOR 11/05/2023 4:58 PM DIGITAL COLOR PRESS OPERATOR Quinn Covarrubias MD LABORATORY [facility] [address] [address] * (ABNORMAL) POTASSIUM (11/05/2023 4:48 PM DIGITAL COLOR PRESS OPERATOR) Potassium 3.2(L) 3.5 - 5.3 mEq/L [facility] Blood 11/05/2023 4:48 PM DIGITAL COLOR PRESS OPERATOR 11/05/2023 4:58 PM DIGITAL COLOR PRESS OPERATOR Quinn Covarrubias MD LABORATORY Performing Organization Address [facility] Co de Phone Number [facility] [address] [address] * CT HEAD NO IV CONTRAST (11/05/2023 11:44 AM DIGITAL COLOR PRESS OPERATOR) Anatomical Region Laterality Modality Skull Computed Tomogra phy 11/05/2023 12:1 6 PM DIGITAL COLOR PRESS OPERATOR Impressions 11/05/2023 12:38 PM DIGITAL COLOR PRESS OPERATOR Impression: Stable head CT as compared to the study performed 7 hours earlier. Intra-axial and extra-axial hemorrhage(s) without midline shift or hydrocephalus. The basal cisterns are patent. Reading Radiologist: Ford Feránndez 11/05/2023 12:38 PM DIGITAL COLOR PRESS OPERATOR Exam: Head CT without contrast, 11/05/2023 Indication: [...] * (ABNORMAL) POC GLUCOSE (11/05/2023 11:11 AM DIGITAL COLOR PRESS OPERATOR) POC Glucose 201(H) 70 - 100 mg/dL [facility] Blood 11/05/2023 11:1 1 AM DIGITAL COLOR PRESS OPERATOR Devin Dougherty MD LABORATORY Performing Organization Address City/[facility]/ZIP Co de Phone Number [facility] [address] [place] [address], * EKG ADULT (12-LEAD) (11/05/2023 6:38 AM DIGITAL COLOR PRESS OPERATOR) 11/05/2023 6:38 AM DIGITAL COLOR PRESS OPERATOR Impressions [facility] EKG ORDERS - 11/05/2023 6:38 AM DIGITAL COLOR PRESS OPERATOR SINUS RHYTHM RIGHT BUNDLE BRANCH BLOCK ??[120+ ms QRS DURATION, UPRIGHT V1, 40+ ms S IN I/aVL/V4/V5/V6] ABNORMAL ECG P-R Interval 151 ms QRS Interval 128 ms QT Interval 420 ms QTC Interval 462 ms P Drexel 9 QRS Drexel 27 T Wave Drexel 70 Narrative Procedure Note Lauren Mills MD - 11/06/2023 IMPRESSION SINUS RHYTHM RIGHT BUNDLE BRANCH BLOCK [120+ ms QRS DURATION, UPRIGHT V1, 40+ ms S INI/aVL/V4/V5/V6] ABNORMAL ECG P-R Interval 151 ms QRS Interval 128 ms QT Interval 420 ms QTC Interval 462 ms P Drexel 9 QRS Drexel 27 T Wave Drexel 70 Quinn Covarrubias MD EKG Performing Organization Address City/[facility]/ZIP Co de Phone Number [facility] EKG ORDERS * (ABNORMAL) POC GLUCOSE (11/05/2023 6:07 AM DIGITAL COLOR PRESS OPERATOR) POC Glucose 188(H) 70 - 100 mg/dL [facility] Blood 11/05/2023 6:07 AM DIGITAL COLOR PRESS OPERATOR Devin Dougherty MD LABORATORY [facility] [place] [address], [place] * CT HEAD NO IV CONTRAST (11/05/2023 4:54 AM DIGITAL COLOR PRESS OPERATOR) Anatomical Region Laterality Modality Skull Computed Tomogra phy 11/05/2023 4:56 AM DIGITAL COLOR PRESS OPERATOR Impressions 11/05/2023 11:09 AM DIGITAL COLOR PRESS OPERATOR Impression: 1. Stable to perhaps minimally increased [...] Reading Resident: Laith Berkowitz 11/05/2023 11:09 AM DIGITAL COLOR PRESS OPERATOR Exam: Head CT without contrast, 11/05/2023 Indication: [...] PROTHROMBIN (PT) & INR (11/05/2023 4:27 AM DIGITAL COLOR PRESS OPERATOR) PT 12.3 9.0 - 12.5 sec [facility] INR 1.1 0.8 - 1.1 [facility] Comment: This sample may have abnormal results due to the presence of lipemia. Warfarin Therapeutic Range: Standard Intensity: 2.0 - 3.0 High Intensity: 2.5 - 3.5 Blood 11/05/2023 4:27 AM DIGITAL COLOR PRESS OPERATOR 11/05/2023 4:35 AM DIGITAL COLOR PRESS OPERATOR Quinn Covarrubias MD LABORATORY Performing Organization Address City/[facility]/ZIP Co de Phone Number [facility] [place] [phone] * ICU PHOSPHORUS (11/05/2023 4:27 AM DIGITAL COLOR PRESS OPERATOR) Phosphorus 3.5 2.5 - 4.5 mg/dL [facility] Blood 11/05/2023 4:27 AM DIGITAL COLOR PRESS OPERATOR 11/05/2023 4:36 AM DIGITAL COLOR PRESS OPERATOR Devin Dougherty MD LABORATORY Performing Organization Address City/[facility]/ZIP Co de Phone Number [facility] [address] [address] * (ABNORMAL) ICU MAGNESIUM (11/05/2023 4:27 AM DIGITAL COLOR PRESS OPERATOR) Magnesium 1.5(L) 1.6 - 2.4 mg/dL [facility] Blood 11/05/2023 4:27 AM DIGITAL COLOR PRESS OPERATOR 11/05/2023 4:36 AM DIGITAL COLOR PRESS OPERATOR Devin Dougherty MD LABORATORY [facility] [address] [address] * (ABNORMAL) ICU BLOOD GAS (11/05/2023 4:27 AM DIGITAL COLOR PRESS OPERATOR) PH Art 7.38 7.35 - 7.45 [facility] PCO2 Art 42 35 - 45 mmHG [facility] PO2 Art 99(H) 75 - 85 mmHG [facility] Bicarb Art 25 22 - 26 mEq/L [facility] O2 Sat Art 98 96 - 99 % [facility] Base Exc Art 0.0 -10.0 - 2.0 mEq/L [facility] Blood Arterial 11/05/2023 4: 27 AM DIGITAL COLOR PRESS OPERATOR 11/05/2023 4:34 AM DIGITAL COLOR PRESS OPERATOR Devin Dougherty MD LABORATORY Performing Organization Address City/[facility] Co de Phone Number [facility] [address] [address] * (ABNORMAL) ICU CBC WITH PLATELET (11/05/2023 4:27 AM DIGITAL COLOR PRESS OPERATOR) WBC 13.69(H) 4.00 - 10.00 k/cmm [facility] RBC 3.49(L) 3.90 - 5.20 m/cmm [facility] Hgb 9.8(L) 11.5 - 15.7 g/dL [facility] Hematocrit 28.2(L) 34.0 - 45.0 % [facility] MCV 80.8 80.0 - 100.0 fL [facility] MCH 28.1 25.0 - 32.0 pg [facility] MCHC 34.8 31.0 - 36.0 g/dL [facility] RDW 15.4(H) 11.5 - 14.5 % [facility] Plt 330 150 - 400 k/cmm [facility] MPV 10.9 6.5 - 12.5 fL [facility] Blood 11/05/2023 4:27 AM DIGITAL COLOR PRESS OPERATOR 11/05/2023 4:35 AM DIGITAL COLOR PRESS OPERATOR Devin Dougherty MD LABORATORY [facility] [address] [address] * (ABNORMAL) ICU PANEL BASIC METABOLIC (BMP) (11/05/2023 4:27 AM DIGITAL COLOR PRESS OPERATOR) Sodium 138 135 - 148 mEq/L [facility] Potassium 3.2(L) 3.5 - 5.3 mEq/L [facility] Chloride 102 92 - 108 mEq/L [facility] CO2 24 22 - 30 mEq/L [facility] AnGap 12 8 - 16 mEq/L [facility] Glucose 200(H) 70 - 100 mg/dL [facility] BUN 16 8 - 23 mg/dL [facility] Creatinine 0.80 0.50 - 1.00 mg/dL [facility] Calcium 8.7(L) 8.8 - 10.2 mg/dL [facility] eGFR (2020 CKD-EPI) 74 >=60 ml/min/1.7 3m2 [facility] Comment: The estimated glomerular filtration rate (eGFR) was calculated using the CKD-EPI 2020 creatinine equation, which does not include race as a factor. This equation is validated in individuals 18 years of age and older, and eGFR is normalized to a body surface area of 1.73m^2. Blood 11/05/2023 4:27 AM DIGITAL COLOR PRESS OPERATOR 11/05/2023 4:36 AM DIGITAL COLOR PRESS OPERATOR Devin Dougherty MD LABORATORY Performing Organization Address City/[facility]/ZIP Co de Phone Number [facility] [address] [address] * (ABNORMAL) TROP 6H (11/05/2023 4:27 AM DIGITAL COLOR PRESS OPERATOR) 6H Trop 51(H) <=14 ng/L [facility] 6H Delta Significan t(A) Not Significant [facility] Blood 11/05/2023 4:27 AM DIGITAL COLOR PRESS OPERATOR 11/05/2023 4:35 AM DIGITAL COLOR PRESS OPERATOR Devin Dougherty MD LABORATORY Performing Organization Address [facility]/ZIP Co de Phone Number [facility] [address] [address] * (ABNORMAL) TROP 4H (11/05/2023 2:58 AM DIGITAL COLOR PRESS OPERATOR) 4H Trop 39(H) <=14 ng/L [facility] 4H Delta Significan t(A) Not Significant [facility] Blood 11/05/2023 2:58 AM DIGITAL COLOR PRESS OPERATOR 11/05/2023 3:48 AM DIGITAL COLOR PRESS OPERATOR Devin Dougherty MD LABORATORY Performing Organization Address City/[facility] Co de Phone Number [facility] [place] [phone] * CK, TOTAL (11/05/2023 1:32 AM DIGITAL COLOR PRESS OPERATOR) CK 56 26 - 192 IU/L [facility] Blood 11/05/2023 1:32 AM DIGITAL COLOR PRESS OPERATOR 11/05/2023 1:32 AM DIGITAL COLOR PRESS OPERATOR Devin Dougherty MD LABORATORY Performing Organization Address City/[facility] Co de Phone Number [place] [phone] * FIBRINOGEN (11/05/2023 1:32 AM DIGITAL COLOR PRESS OPERATOR) Fibrinogen 262 200 - 400 mg/dL [facility] Blood 11/05/2023 1:32 AM DIGITAL COLOR PRESS OPERATOR 11/05/2023 1:32 AM DIGITAL COLOR PRESS OPERATOR Devin Dougherty MD LABORATORY Performing Organization Address City/[facility] Co de Phone Number [facility] [address] [address] * PTT (APTT) (11/05/2023 1:32 AM DIGITAL COLOR PRESS OPERATOR) APTT 26.0 25.0 - 37.0 sec [facility] Blood 11/05/2023 1:32 AM DIGITAL COLOR PRESS OPERATOR 11/05/2023 1:32 AM DIGITAL COLOR PRESS OPERATOR Devin Dougherty MD LABORATORY Performing Organization Address City/[facility] Co de Phone Number [facility] [address] [address] * (ABNORMAL) PANEL HEPATIC FUNCTION (11/05/2023 1:32 AM DIGITAL COLOR PRESS OPERATOR) Pathologist [facility] Alk Phos 111(H) 35 - 104 IU/L [facility] Total Protein 6.5 6.4 - 8.3 g/dL [facility] Bili Direct na <=0.3 mg/dL [facility] Comment:Direct Bilirubin = < 0.2. Accuracy of result suspect due to lipemia. Albumin 3.8 3.8 - 5.1 g/dL [facility] Bili Total <0.2 <=1.2 mg/dL [facility] ALT (SGPT) na <=33 [facility] Comment:ALT = 15. Accuracy o f result suspect due to lipemia. AST(SGOT) na 5 - 40 [facility] Comment:AST = 27. Accuracy o f result suspect due to lipemia. Blood 11/05/2023 1:32 AM DIGITAL COLOR PRESS OPERATOR 11/05/2023 1:32 AM DIGITAL COLOR PRESS OPERATOR Devin Dougherty MD LABORATORY [facility] [address] [id number] * (ABNORMAL) CBC WITH PLATELET (11/05/2023 1:32 AM DIGITAL COLOR PRESS OPERATOR) Pathologist [facility] WBC 14.77(H) 4.00 - 10.00 k/cmm [facility] RBC 3.70(L) 3.90 - 5.20 m/cmm [facility] Hgb 9.9(L) 11.5 - 15.7 g/dL [facility] Hematocrit 30.0(L) 34.0 - 45.0 % [facility] MCV 81.1 80.0 - 100.0 fL [facility] MCH 26.8 25.0 - 32.0 pg [facility] MCHC 33.0 31.0 - 36.0 g/dL [facility] RDW 15.4(H) 11.5 - 14.5 % [facility] Plt 324 150 - 400 k/cmm [facility] MPV 11.0 6.5 - 12.5 fL [facility] Blood 11/05/2023 1:32 AM DIGITAL COLOR PRESS OPERATOR 11/05/2023 1:32 AM DIGITAL COLOR PRESS OPERATOR Devin Dougherty MD LABORATORY Performing Organization Address [facility] Co de Phone Number [facility] [facility] [address] [address] * (ABNORMAL) PANEL BASIC METABOLIC (BMP) (11/05/2023 1:32 AM DIGITAL COLOR PRESS OPERATOR) Potassium 3.1(L) 3.5 - 5.3 mEq/L [facility] Sodium 138 135 - 148 mEq/L [facility] CO2 25 22 - 30 mEq/L [facility] Glucose 242(H) 70 - 100 mg/dL [facility] BUN 16 8 - 23 mg/dL [facility] Creatinine 0.76 0.50 - 1.00 mg/dL [facility] Chloride 101 92 - 108 mEq/L [facility] eGFR (2020 CKD-EPI) 79 >=60 ml/min/1.7 3m2 [facility] Comment: The estimated glomerular filtration rate (eGFR) was calculated using the CKD-EPI 2020 creatinine equation, which does not include race as a factor. This equation is validated in individuals 18 years of age and older, and eGFR is normalized to a body surface area of 1.73m^2. AnGap 12 8 - 16 mEq/L [facility] Calcium 8.8 8.8 - 10.2 mg/dL [facility] Blood 11/05/2023 1:32 AM DIGITAL COLOR PRESS OPERATOR 11/05/2023 1:32 AM DIGITAL COLOR PRESS OPERATOR Devin Dougherty MD LABORATORY Performing Organization Address [facility] Co de Phone Number [facility] [address] [address] * (ABNORMAL) MAGNESIUM (11/05/2023 1:32 AM DIGITAL COLOR PRESS OPERATOR) Magnesium 1.5(L) 1.6 - 2.4 mg/dL [facility] Blood 11/05/2023 1:32 AM DIGITAL COLOR PRESS OPERATOR 11/05/2023 1:32 AM DIGITAL COLOR PRESS OPERATOR Devin Dougherty MD LABORATORY Performing Organization Address [facility] Co de Phone Number [facility] [address] [address] * PHOSPHORUS (11/05/2023 1:32 AM DIGITAL COLOR PRESS OPERATOR) Phosphorus 3.4 2.5 - 4.5 mg/dL [facility] Blood 11/05/2023 1:32 AM DIGITAL COLOR PRESS OPERATOR 11/05/2023 1:32 AM DIGITAL COLOR PRESS OPERATOR Devin Dougherty MD LABORATORY Performing Organization Address [facility] Co de Phone Number [facility] [address] [address] * PROTHROMBIN (PT) & INR (11/05/2023 1:32 AM DIGITAL COLOR PRESS OPERATOR) PT 11.8 9.0 - 12.5 sec [facility] INR 1.0 0.8 - 1.1 [facility] Comment: Warfarin Therapeutic Range: Standard Intensity: 2.0 - 3.0 High Intensity: 2.5 - 3.5 Blood 11/05/2023 1:32 AM DIGITAL COLOR PRESS OPERATOR 11/05/2023 1:32 AM DIGITAL COLOR PRESS OPERATOR Devin Dougherty MD LABORATORY Performing Organization Address [facility] Co de Phone Number [facility] [address] [address] * CALCIUM,IONIZED (11/05/2023 1:18 AM DIGITAL COLOR PRESS OPERATOR) PH 7.37 7.32 - 7.42 [facility] ICA, Actual 4.82 4.40 - 5.20 mg/dL [facility] ICA, pH Corrected 4.75 4.40 - 5.20 mg/dL [facility] Blood 11/05/2023 1:18 AM DIGITAL COLOR PRESS OPERATOR 11/05/2023 1:27 AM DIGITAL COLOR PRESS OPERATOR Narrative [facility] - 11/05/2023 1:44 AM DIGITAL COLOR PRESS OPERATOR Send specimen on ice! Devin Dougherty MD LABORATORY Performing Organization Address [facility] Co de Phone Number [facility] [address] [address] * LACTATE (LACTIC ACID) (11/05/2023 1:18 AM DIGITAL COLOR PRESS OPERATOR) Lactate 1.9 0.7 - 2.1 mmol/L [facility] Blood 11/05/2023 1:18 AM DIGITAL COLOR PRESS OPERATOR 11/05/2023 1:27 AM DIGITAL COLOR PRESS OPERATOR Narrative [facility] - 11/05/2023 1:45 AM DIGITAL COLOR PRESS OPERATOR Send specimen on ice! Devin Dougherty MD LABORATORY Performing Organization Address [facility] Co de Phone Number [facility] [address] [address] * BLOOD GASES (11/05/2023 1:18 AM DIGITAL COLOR PRESS OPERATOR) PH Art 7.37 7.35 - 7.45 [facility] PCO2 Art 43 35 - 45 mmHG [facility] PO2 Art 83 75 - 85 mmHG [facility] Bicarb Art 25 22 - 26 mEq/L [facility] O2 Sat Art 96 96 - 99 % [facility] Base Exc Art -0.3 -10.0 - 2.0 mEq/L [facility] Blood Arterial 11/05/2023 1: 18 AM DIGITAL COLOR PRESS OPERATOR 11/05/2023 1:27 AM DIGITAL COLOR PRESS OPERATOR Devin Dougherty MD LABORATORY Performing Organization Address [facility] Co de Phone Number [facility] [address] [address] * (ABNORMAL) TROP 2H (11/05/2023 1:18 AM DIGITAL COLOR PRESS OPERATOR) 2H Trop 18(H) <=14 ng/L [facility] 2H Delta Indeterminate Not Significant [facility] Blood 11/05/2023 1:18 AM DIGITAL COLOR PRESS OPERATOR 11/05/2023 1:45 AM DIGITAL COLOR PRESS OPERATOR Devin Dougherty MD LABORATORY Performing Organization Address [facility]/ZIP Co de Phone Number [facility] [address] [address] * CT HEAD-NECK - ANGIO - W/IV CON (11/05/2023 12:09 AM DIGITAL COLOR PRESS OPERATOR) Anatomical Region Laterality Modality Skull Computed Tomogra phy 11/05/2023 12:2 1 AM DIGITAL COLOR PRESS OPERATOR Impressions 11/05/2023 10:22 AM DIGITAL COLOR PRESS OPERATOR Impression: ?? Slightly increased size of the [...] Fernández Resident: Laith Berkowitz 11/05/2023 10:22 AM DIGITAL COLOR PRESS OPERATOR CT angiogram of the Head with contrast, [...] and reviewed by the Radiologist using the [employer] workstation, and these images were archived in [...] progression of multifocal subarachnoid hemorrhages. Procedure Note Fodr Fernández, DO - 11/05/2023 CT angiogram of [...] and reviewed by the Radiologist using the [employer] workstation,and these images were archived in the [...] NEURO * (ABNORMAL) URINALYSIS,TOTAL (11/04/2023 11:55 PM DIGITAL COLOR PRESS OPERATOR) Color COLORLESS YELLOW [facility] Appearance CLEAR CLEAR [facility] Urine Glucose 100(A) NEGATIVE mg/dL [facility] Bili UA NEGATIVE NEGATIVE [facility] Ketones NEGATIVE NEGATIVE [facility] Specific [place] 1.036(A) 1.003 - 1.030 [facility] Blood Ur NEGATIVE Neg-Trace [facility] PH Urine 7.5(H) 5.0 - 7.0 [facility] Protein Ur TRACE Neg-Trace [facility] Urobilinogen NORMAL NORMAL EU/dL [facility] Nitrite Ur NEGATIVE NEGATIVE [facility] Leuk Est NEGATIVE Neg-Trace [facility] WBC Ur 0-5 0 - 5 perHPF [facility] RBC Ur 0-3 0 - 3 perHPF [facility] SQ EPITH 0-5 0 - 5 perHPF [facility] Urinalysis Performed at: [facility] Urine 11/04/2023 11:5 5 PM DIGITAL COLOR PRESS OPERATOR 11/05/2023 12:03 AM DIGITAL COLOR PRESS OPERATOR Devin Dougherty MD LABORATORY [facility] [address] [address] * PF INSERT CATH,ART,PERCUT,SHORTTERM (11/04/2023 11:43 PM DIGITAL COLOR PRESS OPERATOR) Narrative Rito Graf MD - 11/04/2023 11:43 PM DIGITAL COLOR PRESS OPERATOR Priscilla Holcomb MD ? 11/04/2023 11:44 PM Arterial Line Performed by: Priscilla Holcomb MD Authorized by: Rito Graf MD ?? Consent: ??Consent obtained: ??Verbal ??Consent given by: ??Patient ??Risks discussed: ??Pain, bleeding and infection Tennille protocol: ??Patient identity confirmed: ??Verbally with patient, [...] * ED EKG (12-LEAD) (11/04/2023 11:25 PM DIGITAL COLOR PRESS OPERATOR) 11/04/2023 11:2 5 PM DIGITAL COLOR PRESS OPERATOR Impressions [facility] E[facility] ORDERS - 11/04/2023 11:25 PM DIGITAL COLOR PRESS OPERATOR SINUS TACHYCARDIA RIGHT BUNDLE BRANCH BLOCK ??[120+ ms QRS DURATION, UPRIGHT V1, 40+ ms S IN I/aVL/V4/V5/V6] ABNORMAL ECG P-R Interval 173 ms QRS Interval 127 ms QT Interval 395 ms QTC Interval 458 ms P [place]el 57 QRS Drexel 34 T Wave [place]el 43 Narrative Procedure Note Vineet Díaz MD - 11/05/2023 IMPRESSION SINUS TACHYCARDIA RIGHT BUNDLE BRANCH BLOCK [120+ ms QRS DURATION, UPRIGHT V1, 40+ ms S INI/aVL/V4/V5/V6] ABNORMAL ECG P-R Interval 173 ms QRS Interval 127 ms QT Interval 395 ms QTC Interval 458 ms P Drexel 57 QRS [place]rexel 34 T Wave [place]el 43 Devin Dougherty MD EKG [facility] EKG ORDERS * CT SPINE LUMBAR NO IV CON (11/04/2023 11:05 PM DIGITAL COLOR PRESS OPERATOR) Anatomical Region Laterality Modality Lumbar Spine Computed Tomogra phy 11/04/2023 11:2 3 PM DIGITAL COLOR PRESS OPERATOR Impressions 11/05/2023 9:22 AM DIGITAL COLOR PRESS OPERATOR Impression: 1. No suspected acute fracture or dislocation of the thoracic or lumbar spine. ?? 2. Blyu-bn-mdplnwuf lumbar spondylosis without suspected high-grade spinal canal or neural foraminal narrowing. I have personally reviewed the image(s) and initial interpretation, and I agree with the findings as documented by the resident/fellow. Reading Radiologist: Ford Fernández Resident: Laith Berkowitz Narrative 11/05/2023 9:22 AM DIGITAL COLOR PRESS OPERATOR Exam: Thoracic and Lumbar Spine CT Reconstructions, [...] dislocation of the thoracic or lumbarspine. 2. Tzgs-nf-vrxnshjc lumbar spondylosis without suspected high-grade spinalcanal or neural foraminal narrowing. I have personally reviewed the image(s) and initial interpretation, and Iagree with the findings as documented by the resident/fellow. Reading Radiologist: Ford Fernández Resident: Laith Berkowitz Devin Dougherty MD RAD CT NEURO * CT SPINE THORACIC NO IV CON (11/04/2023 11:05 PM DIGITAL COLOR PRESS OPERATOR) Anatomical Region Laterality Modality Thoracic Spine Computed Tomogra phy 11/04/2023 11:2 3 PM DIGITAL COLOR PRESS OPERATOR Impressions 11/05/2023 9:22 AM DIGITAL COLOR PRESS OPERATOR Impression: 1. No suspected acute fracture or dislocation of the thoracic or lumbar spine. ?? 2. Fcbp-it-ndkccifj lumbar spondylosis without suspected high-grade spinal canal or neural foraminal narrowing. I have personally reviewed the image(s) and initial interpretation, and I agree with the findings as documented by the resident/fellow. Reading Radiologist: Ford Fernández Resident: Laith Berkowitz Narrative 11/05/2023 9:22 AM DIGITAL COLOR PRESS OPERATOR Exam: Thoracic and Lumbar Spine CT Reconstructions, [...] dislocation of the thoracic or lumbarspine. 2. Exxn-ts-clsbwhmw lumbar spondylosis without suspected high-grade spinalcanal or neural foraminal narrowing. I have personally reviewed the image(s) and initial interpretation, and Iagree with the findings as documented by the resident/fellow. Reading Radiologist: Ford Fernández Resident: Laith Berkowitz Devin Dougherty MD RAD CT NEURO * CT CHEST/ABD/PELVIS W/IV CONT (11/04/2023 11:05 PM DIGITAL COLOR PRESS OPERATOR) Anatomical Region Laterality Modality Chest Computed Tomogra phy 11/04/2023 11:2 9 PM DIGITAL COLOR PRESS OPERATOR Impressions 11/05/2023 6:33 AM DIGITAL COLOR PRESS OPERATOR Impression: 1. No acute traumatic sequelae in [...] Reading Resident: Laith Berkowitz 11/05/2023 6:33 AM DIGITAL COLOR PRESS OPERATOR Comparison: None Indication: Trauma (STAB) ?? Technique: [...] CERVICAL NO IV CON (11/04/2023 11:05 PM DIGITAL COLOR PRESS OPERATOR) Anatomical Region Laterality Modality Cervical Spine Computed Tomogra phy 11/04/2023 11:2 0 PM DIGITAL COLOR PRESS OPERATOR Impressions 11/05/2023 8:27 AM DIGITAL COLOR PRESS OPERATOR Impression: ?? 1. No acute fracture or traumatic subluxation of the cervical vertebrae. 2. Mild degenerative changes of the cervical spine without high-grade spinal canal or neural foraminal narrowing. I have personally reviewed the image(s) and initial interpretation, and I agree with the findings as documented by the resident/fellow. Reading Radiologist: Ford Fernández Resident: Laith Berkowitz Narrative 11/05/2023 8:27 AM DIGITAL COLOR PRESS OPERATOR Exam: Cervical spine CT without contrast, 11/04/2023 [...] spinal canal narrowing. C5-6: Mild left and ezms-zo-ffliiotf right neural foraminal narrowing. Borderline mild spinal [...] spinal canal narrowing. C5-6: Mild left and nqma-nd-ocwcpdtl right neural foraminal narrowing.Borderline mild spinal canal [...] HEAD NO IV CONTRAST (11/04/2023 11:05 PM DIGITAL COLOR PRESS OPERATOR) Anatomical Region Laterality Modality Skull Computed Tomogra phy 11/04/2023 11:1 2 PM DIGITAL COLOR PRESS OPERATOR Impressions 11/05/2023 10:23 AM DIGITAL COLOR PRESS OPERATOR Impression: 1. Thin subdural hemorrhage, measuring up [...] Fernández Resident: Laith Berkowitz 11/05/2023 10:23 AM DIGITAL COLOR PRESS OPERATOR Exam: Head CT without contrast, 11/05/2023 Indication: [...] VIEW AP OR PA* (11/04/2023 10:57 PM DIGITAL COLOR PRESS OPERATOR) Anatomical Region Laterality Modality Chest Computed Radiogr aphy 11/04/2023 11:0 0 PM DIGITAL COLOR PRESS OPERATOR Impressions 11/05/2023 6:18 AM DIGITAL COLOR PRESS OPERATOR Impression: No acute cardiopulmonary findings. I have personally reviewed the image(s) and initial interpretation, and I agree with the findings as documented by the resident/fellow. Reading Radiologist: Scott Porras Resident: Laith Berkowitz Narrative 11/05/2023 6:18 AM DIGITAL COLOR PRESS OPERATOR Technique: XR CHEST 1 VIEW AP OR [...] HEMOGLOBIN TOTAL (ED ONLY) (11/04/2023 10:48 PM DIGITAL COLOR PRESS OPERATOR) Hgb 10.3(L) 11.5 - 15.7 g/dL [facility] Blood 11/04/2023 10:4 8 PM DIGITAL COLOR PRESS OPERATOR 11/04/2023 10:49 PM DIGITAL COLOR PRESS OPERATOR Devin Dougherty MD LABORATORY [facility] [address] [address] * (ABNORMAL) ED CHEMISTRY LABS(NA,K,CL,CO2,GLU,CREAT,CA-IONIZED,ANION GAP) (11/04/2023 10:48 PM DIGITAL COLOR PRESS OPERATOR) Sodium 144 135 - 148 mEq/L [facility] Chloride 106 92 - 108 mEq/L [facility] AnGap 11 8 - 16 mEq/L [facility] Glucose 234(H) 70 - 100 mg/dL [facility] ICA, Actual 4.52 4.40 - 5.20 mg/dL [facility] ICA, pH Corrected 4.51 4.40 - 5.20 mg/dL [facility] Creatinine 0.81 0.50 - 1.00 mg/dL [facility] BICARB 27(H) 22 - 26 mEq/L [facility] eGFR (2020 CKD-EPI) 73 >=60 ml/min/1.7 3m2 [facility] Comment: The estimated glomerular filtration rate (eGFR) was calculated using the CKD-EPI 2020 creatinine equation, which does not include race as a factor. This equation is validated in individuals 18 years of age and older, and eGFR is normalized to a body surface area of 1.73m^2. Potassium 2.8(AA) 3.5 - 5.3 mEq/L [facility] Comment:Critcal Result Low Blood 11/04/2023 10:4 8 PM DIGITAL COLOR PRESS OPERATOR 11/04/2023 10:49 PM DIGITAL COLOR PRESS OPERATOR Narrative [facility] - 11/04/2023 10:55 PM DIGITAL COLOR PRESS OPERATOR Critical value for Potassium called to and read back by Rafa Hutchins RN in ??EDSTAB 2 at 11/04/2023 22:55:31 DIGITAL COLOR PRESS OPERATOR by Eleni Spring MLS. Devin Dougherty MD LABORATORY Performing Organization Address [facility] Co de Phone Number [facility] [address] [address] * (ABNORMAL) ANTI XA HEPARIN UNFRACTIONATED (11/04/2023 10:45 PM DIGITAL COLOR PRESS OPERATOR) Anti XA Hep U <0.04(L) 0.30 - 0.70 IU/mL [facility] Blood 11/04/2023 10:4 5 PM DIGITAL COLOR PRESS OPERATOR 11/04/2023 11:05 PM DIGITAL COLOR PRESS OPERATOR Devin Dougherty MD LABORATORY Performing Organization Address [facility] Co de Phone Number [facility] [address] [address] * EXTRA TUBE - SST (11/04/2023 10:45 PM DIGITAL COLOR PRESS OPERATOR) SST TUBE Stored [facility] Comment:SST tubes (Serum Sep arator) are stored in the lab for 3 days from the collection date. Blood 11/04/2023 10:4 5 PM DIGITAL COLOR PRESS OPERATOR 11/04/2023 10:50 PM DIGITAL COLOR PRESS OPERATOR Devin Dougherty MD LABORATORY Performing Organization Address [facility] Co de Phone Number [facility] [address] [address] * EXTRA TUBE - LIGHT GREEN (11/04/2023 10:45 PM DIGITAL COLOR PRESS OPERATOR) Pathologist [facility] LIGHT GREEN TUBE Stored [facility] Comment:Green tubes ([place] Heparin) are stored in the lab for 3 days from the collection date. Blood 11/04/2023 10:4 5 PM DIGITAL COLOR PRESS OPERATOR 11/04/2023 10:50 PM DIGITAL COLOR PRESS OPERATOR Devin Dougherty MD LABORATORY Performing Organization Address City/[facility]/ZIP Co de Phone Number [facility] [address] [address] * HS TROPONIN (11/04/2023 10:45 PM DIGITAL COLOR PRESS OPERATOR) [facility] HS Troponin I 10 <=14 ng/L [facility] Blood 11/04/2023 10:4 5 PM DIGITAL COLOR PRESS OPERATOR 11/04/2023 11:05 PM DIGITAL COLOR PRESS OPERATOR Narrative [facility] - 11/04/2023 11:36 PM DIGITAL COLOR PRESS OPERATOR First Occurrence of the Troponin order is to be drawn Stat by Nursing staff on the unit. Devin Dougherty MD LABORATORY Performing Organization Address [facility] Co de Phone Number [address] [address] * (ABNORMAL) PTT (APTT) (11/04/2023 10:45 PM DIGITAL COLOR PRESS OPERATOR) [facility] APTT 22.9(L) 25.0 - 37.0 sec [facility] Blood 11/04/2023 10:4 5 PM DIGITAL COLOR PRESS OPERATOR 11/04/2023 11:05 PM DIGITAL COLOR PRESS OPERATOR Devin Dougherty MD LABORATORY Performing Organization Address [facility] Co de Phone Number [address] [address] * ED INR (11/04/2023 10:45 PM DIGITAL COLOR PRESS OPERATOR) Pathologist [facility] ED INR 1.0 0.8 - 1.1 [facility] Comment: Warfarin Therapeutic Range: Standard Intensity: 2.0 - 3.0 High Intensity: 2.5 - 3.5 Blood 11/04/2023 10:4 5 PM DIGITAL COLOR PRESS OPERATOR 11/04/2023 10:48 PM DIGITAL COLOR PRESS OPERATOR Devin Dougherty MD LABORATORY [facility] [address] [address] * PRECAUTIONARY TUBE (11/04/2023 10:45 PM DIGITAL COLOR PRESS OPERATOR) Prec Tube Precautionary Blood Bank Specimen Received. [facility] Blood 11/04/2023 10:4 5 PM DIGITAL COLOR PRESS OPERATOR 11/04/2023 10:52 PM DIGITAL COLOR PRESS OPERATOR Devin Dougherty MD LAB TRANSFUSION SER VICES Performing Organization Address [facility] Co de Phone Number [address] [address] * (ABNORMAL) LACTATE (LACTIC ACID) (11/04/2023 10:45 PM DIGITAL COLOR PRESS OPERATOR) Lactate 2.7(H) 0.7 - 2.1 mmol/L [facility] Blood 11/04/2023 10:4 5 PM DIGITAL COLOR PRESS OPERATOR 11/04/2023 10:50 PM DIGITAL COLOR PRESS OPERATOR Narrative [facility] - 11/04/2023 10:50 PM DIGITAL COLOR PRESS OPERATOR Send specimen on ice! Devin Dougherty MD LABORATORY Performing Organization Address [facility] Co de Phone Number [facility] [address] [address] * FIBRINOGEN (11/04/2023 10:45 PM DIGITAL COLOR PRESS OPERATOR) Fibrinogen 288 200 - 400 mg/dL [facility] Blood 11/04/2023 10:4 5 PM DIGITAL COLOR PRESS OPERATOR 11/04/2023 11:05 PM DIGITAL COLOR PRESS OPERATOR Devin Dougherty MD LABORATORY Performing Organization Address City/[facility]/ZIP Co de Phone Number [facility] [address] [address] * (ABNORMAL) CBC WITH PLTS/AUTO DIFF (11/04/2023 10:45 PM DIGITAL COLOR PRESS OPERATOR) WBC 9.42 4.00 - 10.00 k/cmm [facility] RBC 3.86(L) 3.90 - 5.20 m/cmm [facility] Hgb 9.8(L) 11.5 - 15.7 g/dL [facility] Hematocrit 31.8(L) 34.0 - 45.0 % [facility] MCV 82.4 80.0 - 100.0 fL [facility] MCH 25.4 25.0 - 32.0 pg [facility] MCHC 30.8(L) 31.0 - 36.0 g/dL [facility] RDW 15.3(H) 11.5 - 14.5 % [facility] Plt 292 150 - 400 k/cmm [facility] MPV 11.1 6.5 - 12.5 fL [facility] Automated Abs Neutrophil 5.80 1.70 - 6.50 k/cmm [facility] Comment:Preliminary ANC, Fin al Result to Follow Abs Immature Granulocyte 0.07 0.00 - 0.09 k/cmm [facility] Comment:The Immature Granulo cyte Absolute count contains metamyelocytes and myelocytes. Abs Neutrophil 5.80 1.70 - 6.50 k/cmm [facility] Abs Lymphocyte 2.33 0.80 - 4.00 k/cmm [facility] Abs Monocyte 0.88 0.20 - 1.00 k/cmm [facility] Abs Eosinophil 0.27 0.00 - 0.60 k/cmm [facility] Abs Basophil 0.07 0.00 - 0.20 k/cmm [facility] Blood 11/04/2023 10:4 5 PM DIGITAL COLOR PRESS OPERATOR 11/04/2023 11:05 PM DIGITAL COLOR PRESS OPERATOR Devin Dougherty MD LABORATORY [facility] [address] [place] [id number] * (ABNORMAL) BLOOD GASES (11/04/2023 10:45 PM DIGITAL COLOR PRESS OPERATOR) Pathologist [facility] PH Jalen 7.39 7.32 - 7.42 [facility] PCO2 Jalen 45 41 - 51 mmHG [facility] PO2 Jalen 41(H) 25 - 40 mmHG [facility] Bicarb Jalen 27 24 - 28 mEq/L [facility] O2 Sat Jalen 69 % [facility] Base Exc Jalen 1.4 -10.0 - 2.0 mEq/L [facility] Blood Venous 11/04/2023 10:4 5 PM DIGITAL COLOR PRESS OPERATOR 11/04/2023 10:50 PM DIGITAL COLOR PRESS OPERATOR Devin Dougherty MD LABORATORY [facility] [address] [address] * ED US CRITICAL CARE (11/04/2023 10:40 PM DIGITAL COLOR PRESS OPERATOR) Anatomical Region Laterality Modality Ultrasound Narrative 11/04/2023 11:28 PM DIGITAL COLOR PRESS OPERATOR ED Trauma eFAST Ultrasound Indications: Suspicion of [...] Primary Fall, initial encounter SDH (subdural hematoma) ([facility]) Subdural hemorrhage SAH (subarachnoid hemorrhage) ([facility]) Subarachnoid hemorrhage Traumatic brain injury with loss of consciousness, initial encounter ([facility]) documented in this encounter Admitting Diagnoses [...] Until Discontinued New Bag 11/05/2023 4:19 AM D[employer]ITAL [employer] OPERATOR 1,000 mg 400 mL /hr acetaminophen tablet 650 mg 650 mg, Oral, Q6H PRN, Starting on Sun11/05/23 at 0859, Until Sun11/16/23 at 1221, Mild Pain (Use First) Given 11/12/2023 2:59 AM D[employer] OPERATOR 650 mg Given 11/10/2023 3:29 PM [employer] OPERATOR 650 mg Given 11/10/2023 9:23 AM D[employer]ITAL [employer] OPERATOR 650 mg allopurinol (ZYLOPRIM) half tablet 50 mg 50 mg, Oral, DAILY, First dose on Sun11/08/23 at 0930, Until Discontinued Given 11/16/2023 7:33 AM DIGITAL COLOR PRESS OPERATOR 50 mg Given 11/15/2023 7:59 AM DIGITAL COLOR PRESS OPERATOR 50 mg Given 11/14/2023 8:15 AM DIGITAL COLOR PRESS OPERATOR 50 mg amLODIPine (NORVASC) tablet 5 mg 5 mg, Oral, DAILY, First dose on Sun11/12/23 at 1045, Until Discontinued Given 11/16/2023 7:33 AM DIGITAL COLOR PRESS OPERATOR 5 mg Given 11/15/2023 8:00 AM DIGITAL COLOR PRESS OPERATOR 5 mg Given 11/14/2023 8:14 AM DIGITAL COLOR PRESS OPERATOR 5 mg bisacodyl (DULCOLAX) suppository 10 mg 10 mg, Rectal, ONE TIME-NOW, 1 dose, On Sun11/14/23 at 0910 Given 11/14/2023 10:10 AM DIGITAL COLOR PRESS OPERATOR 10 mg carvedilol (COREG) tablet 12.5 mg 12.5 mg, Oral, BID, First dose on Sun11/05/23 at 2000, Until Discontinued Given 11/06/2023 8:03 PM DIGITAL COLOR PRESS OPERATOR 12.5 mg Given 11/06/2023 8:50 AM DIGITAL COLOR PRESS OPERATOR 12.5 mg Given 11/05/2023 8:04 PM DIGITAL COLOR PRESS OPERATOR 12.5 mg carvedilol (COREG) tablet 12.5 mg 12.5 mg, Oral, BID, First dose (after last modification) on Sun11/07/23 at 2000, Until Discontinued Given 11/09/2023 9:04 AM DIGITAL COLOR PRESS OPERATOR 12.5 mg Given 11/08/2023 7:48 PM DIGITAL COLOR PRESS OPERATOR 12.5 mg Given 11/08/2023 7:53 AM DIGITAL COLOR PRESS OPERATOR 12.5 mg carvedilol (COREG) tablet 6.25 mg 6.25 mg, Oral, BID, First dose (after last modification) on Sun11/09/23 at 2000, Until Discontinued Given 11/16/2023 7:34 AM DIGITAL COLOR PRESS OPERATOR 6.25 mg Given 11/15/2023 9:11 PM DIGITAL COLOR PRESS OPERATOR 6.25 mg Given 11/15/2023 8:00 AM DIGITAL COLOR PRESS OPERATOR 6.25 mg chlorthaLIDONE (HYGROTON) tablet 25 mg 25 mg, Oral, DAILY, First dose (after last reorder) on Sun11/06/23 at 1100, Until Discontinued Given 11/06/2023 2:55 PM DIGITAL COLOR PRESS OPERATOR 25 mg chlorthaLIDONE (HYGROTON) tablet 25 mg 25 mg, Oral, DAILY, First dose (after last modification) on Sun11/08/23 at 0800, Until Discontinued Given 11/16/2023 7:33 AM DIGITAL COLOR PRESS OPERATOR 25 mg Given 11/15/2023 7:59 AM DIGITAL COLOR PRESS OPERATOR 25 mg Given 11/14/2023 8:15 AM DIGITAL COLOR PRESS OPERATOR 25 mg clevidipine (CLEVIPREX) 50 mg in 100 mL emulsion 0-21 mg/hr (0-42 mL/hr), Start infusion at (mg/hr): 2, Titrate to: SBP (mmHg), of: 140, Intravenous, CONTINUOUS, Starting on Sun11/04/23 at 2320, Until Sun11/06/23 at 0846 Rate changed 11/06/2023 5:34 AM DIGITAL COLOR PRESS OPERATOR 8 mg/hr 16 mL/hr New Bag 11/06/2023 4:49 AM DIGITAL COLOR PRESS OPERATOR 6 mg/hr 12 mL/hr Rate changed 11/06/2023 1:58 AM DIGITAL COLOR PRESS OPERATOR 6 mg/hr 12 mL/hr clevidipine (CLEVIPREX) 50 mg in 100 mL emulsion 0-21 mg/hr (0-42 mL/hr), Start infusion at (mg/hr): 1, Titrate to: SBP (mmHg), of: 140, Intravenous, CONTINUOUS, Starting on Sun11/05/23 at 0120, Until Sun11/05/23 at 0246 New Bag 11/05/2023 1:46 AM DIGITAL COLOR PRESS OPERATOR 21 mg/hr 42 mL/hr clevidipine (CLEVIPREX) 50 mg in 100 mL emulsion 0-21 mg/hr (0-42 mL/hr), Start infusion at (mg/hr): 2, Titrate to: SBP (mmHg), of: 160, Intravenous, CONTINUOUS, Starting on Sun11/06/23 at 0905, Until Sun11/07/23 at 0711 Rate changed 11/06/2023 4:58 PM DIGITAL COLOR PRESS OPERATOR 2 mg/hr 4 mL/hr Restarted 11/06/2023 4:50 PM DIGITAL COLOR PRESS OPERATOR 3 mg/hr 6 mL/hr Rate changed 11/06/2023 2:56 PM DIGITAL COLOR PRESS OPERATOR 3 mg/hr 6 mL/hr DC MED REC [...] 0905, Until Discontinued Given 11/16/2023 7:33 AM DIGITAL COLOR PRESS OPERATOR 250 mg Given 11/15/2023 8:58 PM DIGITAL COLOR PRESS OPERATOR 250 mg Given 11/15/2023 7:59 AM DIGITAL COLOR PRESS OPERATOR 250 mg enoxaparin (LOVENOX) 30 mg/0.3 mL injection 30 mg 30 mg, Subcutaneous, Q12H, First dose on Sun11/07/23 at 2000, Until Discontinued Given 11/15/2023 8:57 PM DIGITAL COLOR PRESS OPERATOR 30 mg Abdominal Tissue Given 11/15/2023 8:02 AM DIGITAL COLOR PRESS OPERATOR 30 mg Le ft Upper Arm Given 11/14/2023 8:20 PM DIGITAL COLOR PRESS OPERATOR 30 mg Ri ght Upper Arm hydrALAZINE (APRESOLINE) 20 mg/mL injection 10 mg 10 mg, IV Push, Q4H PRN, Starting on Sun11/07/23 at 1004, Until Sun11/08/23 at 0906, SBP greater than 160 mmHg Given 11/07/2023 5:01 PM DIGITAL COLOR PRESS OPERATOR 10 mg hydrALAZINE (APRESOLINE) 20 mg/mL injection 20 mg 20 mg, IV Push, ONE TIME-NOW, 1 dose, On Sun11/07/23 at 1005 Given 11/07/2023 10:29 AM DIGITAL COLOR PRESS OPERATOR 20 mg insulin ASPART (NovoLOG) FlexPen Insulin [...] 0120, Until Discontinued Given 11/05/2023 5:53 PM DIGITAL COLOR PRESS OPERATOR 1 UNITS Abdominal Tissue Given 11/05/2023 12:40 PM DIGITAL COLOR PRESS OPERATOR 2 UNITS L eft Upper Arm Given 11/05/2023 8:00 AM DIGITAL COLOR PRESS OPERATOR 1 UNITS Le ft Upper Arm insulin [...] 1630, Until Discontinued Given 11/13/2023 4:35 PM DIGITAL COLOR PRESS OPERATOR 1 UNITS Right Upper Arm Given 11/13/2023 11:56 AM DIGITAL COLOR PRESS OPERATOR 1 UNITS L eft Upper Quadrant Abdomen Given 11/09/2023 5:47 PM DIGITAL COLOR PRESS OPERATOR 1,747 UNITS A bdominal Tissue insulin ASPART [...] Sun11/04/23 at 2310 Given 11/04/2023 11:07 PM DIGITAL COLOR PRESS OPERATOR 120 mL Left Arm iohexol (OMNIPAQUE) 350 mg/mL injection IV Push, RAD ONE TIME AUTO ACKNOWLEDGE, 1 dose, On Sun11/05/23 at 0010 Given 11/05/2023 12:09 AM DIGITAL COLOR PRESS OPERATOR 60 mL labetalol (NORMODYNE;TRANDATE) 5 mg/mL injection 10 mg 10 mg, IV Push, Q1H PRN, Starting on Sun11/07/23 at 1004, Until Sun11/08/23 at 0906, SBP greater than 160 mmHg Given 11/08/2023 5:53 AM DIGITAL COLOR PRESS OPERATOR 10 mg Given 11/08/2023 4:16 AM DIGITAL COLOR PRESS OPERATOR 10 mg Given 11/08/2023 1:27 AM DIGITAL COLOR PRESS OPERATOR 10 mg lactated ringers infusion at 75 mL/hr, Intravenous, CONTINUOUS, Starting on Sun11/07/23 at 1055, Until Sun11/07/23 at 1625 Rate changed 11/07/2023 11:53 AM DIGITAL COLOR PRESS OPERATOR 75 mL/hr New Bag 11/07/2023 11:23 AM DIGITAL COLOR PRESS OPERATOR 110 mL/hr levETIRAcetam (KEPPRA) 750 mg in NaCl 0.9% 100 mL IVPB 750 mg, Intravenous, Q12H, Administer over 15 Minutes, First dose on Sun11/07/23 at 1400, Last dose on Sun11/12/23 at 0800 New Bag 11/08/2023 8:02 AM DIGITAL COLOR PRESS OPERATOR 750 mg 430 mL/hr New Bag 11/07/2023 3:10 PM DIGITAL COLOR PRESS OPERATOR 750 mg 430 mL/hr levETIRAcetam (KEPPRA) tablet 1,000 mg 1,000 mg, Oral, BID, 11 doses, First dose on Sun11/06/23 at 1999, Last dose on Sun11/11/23 at 1999 Given 11/06/2023 8:03 PM DIGITAL COLOR PRESS OPERATOR 1,000 mg levETIRAcetam (KEPPRA) tablet 750 mg 750 mg, Oral, BID, 7 doses, First dose on Sun11/08/23 at 1999, Last dose on Sun11/11/23 at 1999 Given 11/11/2023 7:57 PM DIGITAL COLOR PRESS OPERATOR 750 mg Given 11/11/2023 8:55 AM DIGITAL COLOR PRESS OPERATOR 750 mg Given 11/10/2023 8:58 PM DIGITAL COLOR PRESS OPERATOR 750 mg levETIRAcetam in NaCl (KEPPRA) 1000 mg/100 mL IVPB 1,000 mg 1,000 mg, Intravenous, Q12H, Administer over 15 Minutes, First dose on Sun11/05/23 at 0800, Last dose on Sun11/11/23 at 0800 New Bag 11/05/2023 8:04 PM DIGITAL COLOR PRESS OPERATOR 1,000 mg New Bag 11/05/2023 8:08 AM DIGITAL COLOR PRESS OPERATOR 1,000 mg levETIRAcetam in NaCl (KEPPRA) 1000 mg/100 mL IVPB 2,000 mg 2,000 mg, Intravenous, ONE TIME, Administer over 15 Minutes, On Sun11/04/23 at 2345 New Bag 11/04/2023 11:40 PM DIGITAL COLOR PRESS OPERATOR 2,000 mg losartan (COZAAR) tablet 25 mg 25 mg, Oral, DAILY, First dose on Sun11/05/23 at 0900, Until Discontinued Given 11/06/2023 8:50 AM DIGITAL COLOR PRESS OPERATOR 25 mg Given 11/05/2023 11:13 AM DIGITAL [employer]OR PRESS OPERATOR 25 mg losartan (COZAAR) tablet 25 mg 25 mg, Oral, BID, First dose (after last modification) on Sun11/13/23 at 0800, Until Discontinued Given 11/16/2023 7:33 AM DIGITAL COLOR PRESS OPERATOR 25 mg Given 11/15/2023 8:58 PM DIGITAL [employer]OR PRESS OPERATOR 25 mg Given 11/15/2023 8:00 AM DIGITAL COLOR PRESS OPERATOR 25 mg losartan (COZAAR) tablet 50 mg 50 mg, Oral, DAILY, First dose (after last modification) on Sun11/08/23 at 0800, Until Discontinued Given 11/12/2023 8:47 AM DIGITAL COLOR PRESS OPERATOR 50 mg Given 11/11/2023 8:55 AM DIGITAL COLOR PRESS OPERATOR 50 mg Given 11/10/2023 9:23 AM DIGITAL COLOR PRESS OPERATOR 50 mg magnesium sulfate 2 g IVPB 2 g, Intravenous, ONE TIME, Administer over 1 Hours, On Sun11/05/23 at 0220 New Bag 11/05/2023 2:59 AM DIGITAL COLOR PRESS OPERATOR 2 g 50 mL/hr magnesium sulfate 2 g IVPB 2 g, Intravenous, ONE TIME, Administer over 1 Hours, On Sun11/05/23 at 0620 New Bag 11/05/2023 8:08 AM DIGITAL COLOR PRESS OPERATOR 2 g 50 mL/hr melatonin tablet 3 mg 3 mg, Oral, BEDTIME, First dose on Sun11/08/23 at 2000, Until Discontinued Given 11/15/2023 8:57 PM DIGITAL COLOR PRESS OPERATOR 3 mg Given 11/14/2023 8:17 PM DIGITAL COLOR PRESS OPERATOR 3 mg Given 11/13/2023 8:41 PM DIGITAL COLOR PRESS OPERATOR 3 mg metFORMIN (GLUCOPHAGE) tablet 500 mg 500 mg, Oral, BID, First dose on Sun11/15/23 at 1010, Until Discontinued Given 11/16/2023 7:33 AM DIGITAL COLOR PRESS OPERATOR 500 mg Given 11/15/2023 8:57 PM DIGITAL [employer]OR PRESS OPERATOR 500 mg Given 11/15/2023 12:47 PM DIGITAL [employer]OR PRESS OPERATOR 500 mg NaCl 0.9% infusion at 100 mL/hr, Intravenous, CONTINUOUS, Starting on Sun11/05/23 at 0120, Until Sun11/05/23 at 1705 Infusing 11/05/2023 12:00 PM DIGITAL [employer]OR PRESS OPERATOR 100 mL/hr Infusing 11/05/2023 11:00 AM DIGITAL COLOR PRESS OPERATOR 100 mL/hr Infusing 11/05/2023 10:00 AM D[employer]OR PRESS OPERATOR 100 mL/hr naproxen (NAPROSYN) tablet 500 mg 500 mg, Oral, BID, 19 doses, First dose on Sun11/08/23 at 0845, Last dose on Sun11/17/23 at 2000 Given 11/16/2023 7:33 AM DIGITAL COLOR PRESS OPERATOR 500 mg Given 11/15/2023 8:57 PM DIGITAL [employer]OR PRESS OPERATOR 500 mg Given 11/15/2023 7:58 AM D[employer]OR PRESS OPERATOR 500 mg OLANZapine (ZyPREXA ZYDIS) disintegrating tablet 2.5 mg 2.5 mg, Oral, BEDTIME, First dose (after last modification) on Sun11/15/23 at 0230, Until Discontinued Given 11/15/2023 9:01 PM D[employer] PRESS OPERATOR 2.5 mg Given 11/15/2023 3:27 AM D[employer]OR PRESS OPERATOR 2.5 mg OLANZapine (ZyPREXA) tablet 10 mg 10 mg, Oral, BEDTIME PRN, Starting on Sun11/07/23 at 0048, Until Sun11/07/23 at 0836, Agitation Given 11/07/2023 1:46 AM DIGITAL [employer]OR PRESS OPERATOR 10 mg ondansetron (ZOFRAN ODT) disintegrating tablet 4 mg 4 mg, Oral, TID PRN, Starting on Sun11/06/23 at 1020, Until Sun11/16/23 at 1221, Nausea/Vomiting (Use First) ondansetron (ZOFRAN) 4 mg/2 mL injection 4 mg 4 mg, IV Push, ONE TIME, 1 dose, On Sun11/06/23 at 1025 Given 11/06/2023 10:31 AM DIGITAL [employer]OR PRESS OPERATOR 4 mg ondansetron (ZOFRAN) 4 mg/2 mL injection 1 dose, Starting on Sun11/06/23 at 1024, Until Sun11/06/23 at 1031 polyethylene glycol 3350 (MIRALAX;GLYCOLAX) packet 17 g 17 g, Oral, DAILY, First dose on Sun11/06/23 at 0800, Until Discontinued Given 11/13/2023 8:24 AM DIGITAL COLOR PRESS OPERATOR 17 g Given 11/12/2023 8:47 AM D[employer]ITAL [employer]OR PRESS OPERATOR 17 g Given 11/11/2023 8:56 AM DIGITAL COLOR PRESS OPERATOR 17 g polyethylene glycol 3350 (MIRALAX;GLYCOLAX) packet 17 g 17 g, Oral, BID, First dose (after last modification) on Sun11/14/23 at 0800, Until Discontinued Given 11/15/2023 8:57 PM DIGITAL [employer]OR PRESS OPERATOR 17 g Given 11/15/2023 8:00 AM DIGITAL COLOR PRESS OPERATOR 17 g Given 11/14/2023 8:19 PM DIGITAL [employer]OR PRESS OPERATOR 17 g potassium chloride (K-DUR) tablet 40 mEq 40 mEq, Oral, ONE TIME, 1 dose, On Sun11/09/23 at 0735 Given 11/09/2023 9:43 AM D[employer]OR PRESS OPERATOR 40 mEq potassium chloride (K-DUR) tablet 40 mEq 40 mEq, Oral, ONE TIME-NOW, 1 dose, On Sun11/13/23 at 1025 Given 11/13/2023 10:51 AM D[employer]OR PRESS OPERATOR 40 mEq potassium chloride (K-DUR) tablet 40 mEq 40 mEq, Oral, DAILY, First dose on Sun11/14/23 at 0800, Until Discontinued Given 11/16/2023 7:34 AM DIGITAL [employer]OR PRESS OPERATOR 40 mEq Given 11/15/2023 7:58 AM D[employer]OR PRESS OPERATOR 40 mEq Given 11/14/2023 8:15 AM D[employer]OR PRESS OPERATOR 40 mEq potassium chloride (K-CANDIDO) 20 mEq 20 mEq, Oral, ONE TIME, 1 dose, On Sun11/05/23 at 1955 Given 11/05/2023 10:32 PM D[employer]OR PRESS OPERATOR 20 mEq potassium chloride (K-CANDIDO) powder 20 mEq 20 mEq, Oral, ONE TIME, 1 dose, On Sun11/13/23 at 1540 Given 11/13/2023 4:35 PM D[employer]OR PRESS OPERATOR 20 mEq potassium chloride IVPB 10 mEq 10 mEq, Intravenous, ONE TIME, Administer over 60 Minutes, On Sun11/04/23 at 2355 New Bag 11/05/2023 12:12 AM D[employer]OR PRESS OPERATOR 10 m Eq potassium chloride IVPB 10 mEq 10 mEq, Intravenous, Q1H, Administer over 60 Minutes, First dose on Sun11/05/23 at 0220, Last dose on Sun11/05/23 at 0320 New Bag 11/05/2023 4:19 AM D[employer]ITAL COLOR PRESS OPERATOR 10 mEq New Bag 11/05/2023 2:59 AM DIGITAL COLOR PRESS OPERATOR 10 mEq potassium chloride IVPB 10 mEq 10 mEq, Intravenous, Q1H, Administer over 60 Minutes, First dose on Sun11/05/23 at 0620, Last dose on Sun11/05/23 at 0720 New Bag 11/05/2023 8:04 AM D[employer]OR PRESS OPERATOR 10 mEq rosuvastatin (CRESTOR) tablet 20 mg 20 mg, Oral, DAILY, First dose on Sun11/05/23 at 0900, Until Discontinued Given 11/16/2023 7:33 AM DIGITAL COLOR PRESS OPERATOR 20 mg Given 11/15/2023 7:58 AM DIGITAL COLOR PRESS OPERATOR 20 mg Given 11/14/2023 8:15 AM DIGITAL COLOR PRESS OPERATOR 20 mg sennosides-docusate sodium (STOOL SOFTENER/LAXATIVE) 8.6-50 mg tablet 1 tablet 1 tablet, Oral, BID, First dose on Sun11/06/23 at 0800, Until Discontinued Given 11/07/2023 7:54 PM DIGITAL COLOR PRESS OPERATOR 1 tablet Given 11/06/2023 8:03 PM DIGITAL COLOR PRESS OPERATOR 1 tablet sennosides-docusate sodium (STOOL SOFTENER/LAXATIVE) 8.6-50 mg tablet 1 tablet 1 tablet, Oral, BID, First dose (after last modification) on Sun11/14/23 at 0800, Until Discontinued Given 11/16/2023 7:33 AM DIGITAL COLOR PRESS OPERATOR 1 tablet Given 11/15/2023 8:57 PM DIGITAL COLOR PRESS OPERATOR 1 tablet Given 11/15/2023 7:59 AM DIGITAL COLOR PRESS OPERATOR 1 tablet venlafaxine (EFFEXOR XR) capsule 225 mg 225 mg, Oral, DAILY, First dose on Sun11/06/23 at 1000, Until Discontinued Given 11/16/2023 7:32 AM DIGITAL COLOR PRESS OPERATOR 225 mg Given 11/15/2023 7:58 AM DIGITAL COLOR PRESS OPERATOR 225 mg Given 11/14/2023 8:14 AM DIGITAL COLOR PRESS OPERATOR 225 mg VTE Anti Xa Monitoring Does not apply, PROTOCOL, Starting on Sun11/07/23 at 1354, Until Sun11/16/23 at 1221 documented in this encounter Active and Recently Administered Medications Times are shown in DIGITAL COLOR PRESS OPERATOR. Scheduled Medication Order 11/14/2023 11/15/2023 11/16/2023 allopurinol [...] pm documented in this encounter Care Teams Inside Sales Engineer Relationship Specialty Start Date End Date Eloise Reeves DO [address] [place] [address] PCP - General Family Medicine 11/06/23 documented as of this encounter
--- OUTSIDE RECORDS SUMMARY | 2023-12-11 18:33 | XMS_ITS | Encounter Summary ---
Author Name Unknown Organization [facility] [place] [facility] Address [address] [place] [id number] Phone Care Team Providers Care Recreational Sports Director Name Role Phone Eloise Reeves DO Primary Care Provider [phone] Encounter Details Date Type Department Care Team [...] Coronavirus/COVID-19? No / Unsure 11/04/2023 10:48 PM HOSTING ENGINEER documented as of this encounter Plan of Treatment Not on file documented as of this encounter Procedures Procedure Name Priority Date/Time Associated Diagnosis Comments TELEMETRY STRIPS 11/08/2023 2:59 AM HOSTING ENGINEER documented in this encounter Results * TELEMETRY STRIPS (11/08/2023 2:59 AM HOSTING ENGINEER) Narrative 11/08/2023 2:59 AM HOSTING ENGINEER Ordered by an unspecified provider. Provider Unknown RAD ECHO documented in this encounter Visit Diagnoses Not on filedocumented in this encounter Care Teams Recreational Sports Director Relationship Specialty Start Date End Date Eloise Reeves DO [address] [place] [address] PCP - General Family Medicine 11/06/23 documented as of this encounter
--- OUTSIDE RECORDS SUMMARY | 2023-12-11 18:34 | XMS_ITS | Clinical Summary ---
Author Name Unknown Organization [employer]ian Affiliates Address [place], [place] [address] Care Team Providers Care Image Editor Name Role Phone Eloise Reeves Primary Care Provider [phone]- [phone] Allergies Active Allergy Reactions Criticality Noted Date [...] PVCs 10/20/2014 Breast cancer, left Overview: in [place], had mastectomy. No chemo or radiation Encounters Date Type Department Care Team Description 12/11/[address] [facility] [address] [place] [address] Eloise Reeves DO Tremors 12/10/[address] [facility] [address] [place] [address] Eloise Reeves DO Concerns (12/12/23) 11/29/[address] [facility] [address] [place] [address] Eloise Reeves DO Appointment Request 11/22/2023 10:30 AM CUTTING INSPECTOR Office Visit [facility] [address] [place] [address] [place] LICSW Failed Appointment 11/02/[address] [address] [place] [address] Eloise Reeves DO Results 11/01/2023 1:05 PM CUTTING INSPECTOR Office Visit [facility] [address] [place] [address] Eloise Reeves DO Follow Up 11/01/[address] [address] [place] [address] Eloise Reeves DO <No scans attached> 11/01/2023 Travel 10/16/2023 10:30 AM CUTTING INSPECTOR Office [facility] [address] [place] [address] [address], [facility] Visit 10/16/2023 Travel 10/10/[address] [facility] [place] [facility] [address] [place] [address] Twan Suresh MD Referral (Patient is ready to be scheduled. Referral consult to Neurology. ) 10/09/2023 1:05 PM CUTTING INSPECTOR Office [facility] [place] [address] Eloise Reeves DO Follow Up; Tremors 10/09/[address] [address] [place] [address] García Driscoll MD Error-please disregard 10/09/2023 Travel 10/04/2023 10:30 AM CUTTING INSPECTOR Office [facility] [address] [place] [address] [address] LICSW Failed Appointment 09/28/[address] [address] [place] [address] Eloise Reeves DO Results 09/27/[address] [address] [facility] [place] [place] [address] Eloise Reeves DO <No scans attached> 09/26/2023 1:55 PM CUTTING INSPECTOR Office [facility] [address] [place] [address] Eloise Reeves DO Dizziness (1 day); Nausea (1 day); Diarrhea (1 day); Urinary Problem (frequency) 09/26/2023 Travel 09/25/[address] [address] [place] [address] Eloise Reeves DO Appointment Request (FOLLOW UP BEFORE 11-01-2023) 09/17/2023 10:30 AM CUTTING INSPECTOR Office [facility] [address] [place] [address] [address], [employer]ACHINE OPERATOR HELPER [facility] Visit 09/17/2023 Travel 09/13/[address] [address] [place] [address] Eloise Reeves DO Results 09/13/[address] [address] [place] [address] Eloise Reeves DO <No scans attached> 09/12/2023 9:10 AM CUTTING INSPECTOR Office [facility] [address] [place] [address] Eloise Reeves, DO Diabetes 09/12/2023 Travel from Last 3 [...] Comments Blood Pressure 157/79 11/01/2023 11:36 AM CUTTING INSPECTOR Pulse 83 11/01/2023 11:36 AM CUTTING INSPECTOR Temperature 37.1 ??C (98.8 ??F) 04/04/2022 12:51 PM C DT Respiratory Rate 16 08/22/2022 9:54 AM CDT Oxygen Saturation 96% 11/01/2023 11:36 AM CUTTING INSPECTOR Inhaled Oxygen Concentration - - Weight 67.6 kg (149 lb) 11/01/2023 11:36 AM CUTTING INSPECTOR Height 142.8 cm (4' 8.22) 01/02/2023 1:43 PM CS T Body Mass Index 33.14 01/02/2023 1:43 PM CUTTING INSPECTOR Plan of Treatment Upcoming Encounters Date Type Department Care Team (Late st Contact Info) Description 12/12/2023 1:05 PM CUTTING INSPECTOR Office [facility] [address] [place] [address] Eloise Reeves DO [address] [place] [address] Health Maintenance Due Date Last Done Comments [...] Diagnosis Comments CREATININE Routine 11/01/2023 12:37 PM CUTTING INSPECTOR Gout of left foot, unspecified cause, unspecified chronicity POTASSIUM Routine 11/01/2023 12:37 PM CUTTING INSPECTOR Hypokalemia URINALYSIS MICROSCOPIC Routine 09/26/2023 3:25 PM CUTTING INSPECTOR Urinary frequency UA W/ SEDIMENT EXAM REFLEXED PER CRITERIA Routine 09/26/2023 3:25 PM CUTTING INSPECTOR Urinary frequency BASIC METABOLIC PANEL Routine 09/26/2023 2:55 PM CUTTING INSPECTOR HTN (hypertension) HEMOGLOBIN Routine 09/26/2023 2:55 PM CUTTING INSPECTOR Anemia of unknown etiology SCAN CORRESP-LABORATORY RESULTS 09/12/2023 10:56 AM CUTTING INSPECTOR SCAN CORRESP-IMAGING 09/12/2023 10:56 AM CUTTING INSPECTOR SCAN CORRESP-IMAGING 09/12/2023 10:56 AM CUTTING INSPECTOR SCAN CORRESP-IMAGING 09/12/2023 10:56 AM CUTTING INSPECTOR VITAMIN B12 Add On 09/12/2023 9:30 AM CUTTING INSPECTOR Hallucinations BASIC METABOLIC PANEL Add On 09/12/2023 9:30 AM CUTTING INSPECTOR Hypertension IRON PLUS IRON BINDING CAP Add On 09/12/2023 9:30 AM CUTTING INSPECTOR Anemia of unknown etiology FERRITIN Add On 09/12/2023 9:30 AM CUTTING INSPECTOR Anemia of unknown etiology TSH WITH REFLEX Add On 09/12/2023 9:30 AM CUTTING INSPECTOR Hallucinations Other fatigue HEMOGLOBIN Routine 09/12/2023 9:30 AM CUTTING INSPECTOR Anemia of unknown etiology URIC ACID Routine 09/12/2023 9:30 AM CUTTING INSPECTOR History of gout POTASSIUM Routine 09/12/2023 9:30 AM CUTTING INSPECTOR Hypertension CREATININE Routine 09/12/2023 9:30 AM CUTTING INSPECTOR Hypertension HEMOGLOBIN A1C Routine 09/12/2023 9:30 AM CUTTING INSPECTOR Controlled type 2 diabetes mellitus without complication, without long-term current use of insulin (HC) from Last 3 Months Results * POTASSIUM (11/01/2023 12:37 PM CUTTING INSPECTOR) Only the most recent of2 resultswithin the time period is included. POTASSIUM 3.5 3.5 - 5.1 mmol/L 11/01/2023 9:42 PM CUTTING INSPECTOR [facility] Blood BLOOD SPECIMEN / Unknown Venipuncture / Unknown 11/01/2023 12:37 PM CUTTING INSPECTOR 11/01/2023 12:39 PM CUTTING INSPECTOR [employer] CHEMISTRY Performing Organization Address [facility] Co de Phone Number [facility] [address] [place] [address], * (ABNORMAL) CREATININE (11/01/2023 12:37 PM CUTTING INSPECTOR) Only the most recent of2 resultswithin the time period is included. eGFR 73(L) >90 mL/min/1.7 3m2 11/01/2023 9:42 PM CUTTING INSPECTOR [facility] Comment:As of 2022, eG FR is calculated by the CKD-EPI creatinine equation without race adjustment. ??eGFR can be influenced by muscle mass, exercise, and diet. ??The reported eGFR is an estimation only and is only applicable if the renal function is stable. CREATININE 0.81 0.50 - 0.90 mg/dL 11/01/2023 9:42 PM CUTTING INSPECTOR [facility] Blood BLOOD SPECIMEN / Unknown Venipuncture / Unknown 11/01/2023 12:37 PM CUTTING INSPECTOR 11/01/2023 12:39 PM CUTTING INSPECTOR [employer] CHEMISTRY Performing Organization Address [facility] Co de Phone Number [facility] [address] [place], [place] [id number], [place] * URINALYSIS MICROSCOPIC (09/26/2023 3:25 PM CUTTING INSPECTOR) RBC 0-2 0-2, None Seen /HPF 09/26/2023 3:35 PM CUTTING INSPECTOR [facility] WBC 0-2 0-2, 3-5, None Seen /HPF 09/26/2023 3:35 PM CUTTING INSPECTOR [facility] BACTERIA Few None Seen, Rare, Few Bacteria/H PF 09/26/2023 3:35 PM CUTTING INSPECTOR [facility] EPITHELIAL CELLS Few None Seen, Few Epi/HPF 09/26/2023 3:35 PM CUTTING INSPECTOR [facility] Mucus Present 09/26/2023 3:35 PM CUTTING INSPECTOR [facility] HYALINE CASTS 0-2 0-2, 3-5 /LPF 09/26/2023 3:35 PM CUTTING INSPECTOR [facility] Urine URINE SPECIMEN / Unknown Non-Blood / Unknown 09/26/2023 3:25 PM CUTTING INSPECTOR 09/26/2023 3:25 PM CUTTING INSPECTOR Narrative [facility] - 09/26/2023 3:35 PM CUTTING INSPECTOR <1.5 ml. ??QNS for accurate microscopic exam. ??Microscopic done on unspun urine. Eloise Reeves DO URINE [facility] [address] [place] [address], [place] [phone] * (ABNORMAL) UA W/ SEDIMENT EXAM REFLEXED PER CRITERIA (09/26/2023 3:25 PM CUTTING INSPECTOR) COLOR Yellow Yellow Color 09/26/2023 3:33 PM CUTTING INSPECTOR [facility] CLARITY Clear Clear Clarity 09/26/2023 3:33 PM CUTTING INSPECTOR [facility] SPECIFIC GRAVITY,URINE >=1.030(A) 1.010, 1.015, 1.020, 1.025 09/26/2023 3:33 PM CUTTING INSPECTOR [facility] PH,URINE 5.5 6.0, 7.0, 8.0, 5.5, 6.5, 7.5, 8.5 09/26/2023 3:33 PM CUTTING INSPECTOR [facility] UROBILINOGEN,QU ALITATIVE Normal Normal EU/dl 09/26/2023 3:33 PM CUTTING INSPECTOR [facility] PROTEIN, URINE 30(A) Negative mg/dL 09/26/2023 3:33 PM CUTTING INSPECTOR [facility] GLUCOSE, URINE Negative Negative mg/dL 09/26/2023 3:33 PM CUTTING INSPECTOR [facility] KETONES,URINE 15(A) Negative mg/dL 09/26/2023 3:33 PM CUTTING INSPECTOR [facility] BILIRUBIN,URINE Abnormal(A) Negative 09/26/20 3:33 PM CUTTING INSPECTOR [facility] Comment:A variety of metabol ites and/or medications may result in a positive bilirubin result. Clinical correlation is recommended. OCCULT BLOOD,URINE Negative Negative 09/26/2023 3:33 PM CUTTING INSPECTOR [facility] NITRITE Negative Negative 09/26/2023 3:33 PM CUTTING INSPECTOR [facility] LEUKOCYTE ESTERASE Negative Negative 09/26/2023 3:33 PM CUTTING INSPECTOR [facility] Urine URINE SPECIMEN / Unknown Non-Blood / Unknown 09/26/2023 3:25 PM CUTTING INSPECTOR 09/26/2023 3:25 PM CUTTING INSPECTOR Eloise Reeves DO URINE [facility] [address] [place] [id number], * (ABNORMAL) HEMOGLOBIN (09/26/2023 2:55 PM CUTTING INSPECTOR) Only the most recent of2 resultswithin the time period is included. HEMOGLOBIN 10.9(L) 12.0 - 16.0 g/dL 09/26/2023 3:04 PM CUTTING INSPECTOR [facility] MCV 82 80 - 100 fL 09/26/2023 3:04 PM CUTTING INSPECTOR [facility] Blood BLOOD SPECIMEN / Unknown Venipuncture / Unknown 09/26/2023 2:55 PM CUTTING INSPECTOR 09/26/2023 2:56 PM CUTTING INSPECTOR Eloise Reeves DO HEMATOLOGY [facility] [address] [facility] [place] [address], [place] [phone] * (ABNORMAL) BASIC METABOLIC PANEL (09/26/2023 2:55 PM CUTTING INSPECTOR) Only the most recent of2 resultswithin the time period is included. SODIUM 140 136 - 145 mmol/L 09/26/2023 10:22 PM [facility] POTASSIUM 3.3(L) 3.5 - 5.1 mmol/L 09/26/2023 10:22 PM [facility] CHLORIDE 101 98 - 107 mmol/L 09/26/2023 10:22 PM [facility] CO2,TOTAL 26 22 - 29 mmol/L 09/26/2023 10:22 PM [facility] ANION GAP 13 5 - 18 09/26/2023 10:22 PM [facility] GLUCOSE 112(H) 70 - 99 mg/dL 09/26/2023 10:22 PM [facility] CALCIUM 9.7 8.8 - 10.2 mg/dL 09/26/2023 10:22 PM [facility] BUN 17 8 - 23 mg/dL 09/26/2023 10:22 PM [facility] CREATININE 1.08(H) 0.50 - 0.90 mg/dL 09/26/2023 10:22 PM [facility] BUN/CREAT RATIO 16 10 - 20 3 10:22 PM [facility] eGFR 52(L) >90 mL/min/1.7 3m2 09/26/2023 10:22 PM [facility] Comment:As of 2022, eG FR is calculated by the CKD-EPI creatinine equation without race adjustment. ??eGFR can be influenced by muscle mass, exercise, and diet. ??The reported eGFR is an estimation only and is only applicable if the renal function is stable. Blood BLOOD SPECIMEN / Unknown Venipuncture / Unknown 09/26/2023 2:55 PM CUTTING INSPECTOR 09/26/2023 2:56 PM CUTTING INSPECTOR Eloise Reeves DO CHEMISTRY Performing Organization Address [facility]/ZIP Co de Phone Number [facility] [address] [place] [phone], [place] * SCAN CORRESP-LABORATORY RESULTS (09/12/2023 10:56 AM CUTTING INSPECTOR) Narrative 09/12/2023 10:56 AM CUTTING INSPECTOR Ordered by an unspecified provider. Other Clinical Staff OTHER * SCAN CORRESP-IMAGING (09/12/2023 10:56 AM CUTTING INSPECTOR) Only the most recent of3 resultswithin the time period is included. Anatomical Region Laterality Modality Other Narrative 09/12/2023 10:56 AM CUTTING INSPECTOR Ordered by an unspecified provider. Other Clinical Staff OTHER * TSH WITH REFLEX (09/12/2023 9:30 AM CUTTING INSPECTOR) TSH 0.72 0.27 - 4.20 uIU/mL 09/12/2023 6:43 PM CUTTING INSPECTOR [facility] Blood BLOOD SPECIMEN / Unknown Venipuncture / Unknown 09/12/2023 9:30 AM CUTTING INSPECTOR 09/12/2023 9:33 AM CUTTING INSPECTOR Narrative [facility] - 09/12/2023 6:43 PM CUTTING INSPECTOR In Adults, TSH values between 5.00 and 10.00 uIU/ml do not necessarily indicate the presence of Hypothyroidism. Correlation with clinical findings such as presence of goiter and/or Thyroperoxidase (TPO) Antibody may be helpful. For more information please refer to NIKKIE 2004; 291: 228-238. Eloise Reeves DO CHEMISTRY [facility] [address] [place] [phone], * (ABNORMAL) IRON PLUS IRON BINDING CAP (09/12/2023 9:30 AM CUTTING INSPECTOR) IRON 35(L) 37 - 145 ug/dL 09/12/2023 6:43 PM CUTTING INSPECTOR [facility] UIBC (UNSATURATED) 277 112 - 347 ug/dL 09/12/2023 6:43 PM CUTTING INSPECTOR [facility] IRON BINDING CAPACITY 312 250 - 400 ug/dL 09/12/2023 6:43 PM CUTTING INSPECTOR [facility] IRON,% SATURATION 11(L) 14 - 50 % 09/12/2023 6:43 PM CUTTING INSPECTOR [facility] Blood BLOOD SPECIMEN / Unknown Venipuncture / Unknown 09/12/2023 9:30 AM CUTTING INSPECTOR 09/12/2023 9:33 AM CUTTING INSPECTOR Eloise Reeves DO CHEMISTRY Performing Organization Address City/[facility]/ZIP Co de Phone Number [facility] [address] [place] [address], * (ABNORMAL) URIC ACID (09/12/2023 9:30 AM CUTTING INSPECTOR) URIC ACID 9.4(H) 2.4 - 5.7 mg/dL 09/12/2023 7:06 PM CUTTING INSPECTOR [facility] Blood BLOOD SPECIMEN / Unknown Venipuncture / Unknown 09/12/2023 9:30 AM CUTTING INSPECTOR 09/12/2023 9:33 AM CUTTING INSPECTOR Eloise Reeves DO CHEMISTRY [facility] [address] [place] [address], * (ABNORMAL) HEMOGLOBIN A1C MONITORING (POCT) (09/12/2023 9:30 AM CUTTING INSPECTOR) HEMOGLOBIN A1C MONITORING (POCT) 8.4(H) <=6.4 % 09/12/2023 10:00 AM CUTTING INSPECTOR [facility] Blood BLOOD SPECIMEN / Unknown Venipuncture / Unknown 09/12/2023 9:30 AM CUTTING INSPECTOR 09/12/2023 9:33 AM CUTTING INSPECTOR Narrative [facility] - 09/12/2023 10:00 AM CUTTING INSPECTOR ? (<=6.9%) ? Indicates good control ? (7.0% to 7.9%) ? Indicates fair control ? (>=8.0%) ? Indicates poor control ?? NOTE: ??These thresholds are guidelines and ?individual targets may vary. Falsely low levels may be seen with: Recent Transfusion, Recent Significant Blood Loss, Hemolytic Diseases, or Falsely elevated levels may be seen with: Untreated Anemias, Splenectomy ? Eloise Reeves DO CHEMISTRY [facility] [address] [place] [address], * FERRITIN (09/12/2023 9:30 AM CUTTING INSPECTOR) Pathologist [facility] FERRITIN 26.8 15.0 - 150.0 ng/mL 09/12/2023 6:43 PM CUTTING INSPECTOR [facility] Blood BLOOD SPECIMEN / Unknown Venipuncture / Unknown 09/12/2023 9:30 AM CUTTING INSPECTOR 09/12/2023 9:33 AM CUTTING INSPECTOR Eloise Reeves DO CHEMISTRY [facility] [address] [place] [address], * (ABNORMAL) VITAMIN B12 (09/12/2023 9:30 AM CUTTING INSPECTOR) VITAMIN B12 1,253(H) 232 - 1,245 pg/mL 09/12/2023 6:43 PM CUTTING INSPECTOR [facility] Blood BLOOD SPECIMEN / Unknown Venipuncture / Unknown 09/12/2023 9:30 AM CUTTING INSPECTOR 09/12/2023 9:33 AM CUTTING INSPECTOR Narrative [facility] - 09/12/2023 6:43 PM CUTTING INSPECTOR Biotin supplements may cause clinically significant interference for this test assay. ??If interference is suspected, it is strongly recommended that biotin is discontinued for at least one week prior to retesting. Eloise Reeves DO CHEMISTRY [facility] [address] [place] [address], from Last 3 Months Care Teams Image Editor Relationship Specialty Start Date End Date Eloise Reeves DO [address] [place] [id number] PCP - General Family Practice 05/13/20
== END 2023-12-09 22:45 | disposition home or self-care (01) ==
LOC: AMB 12-11 18:29
PROVIDERS: PCP Family Medicine; Visit Provider Family Medicine
DX: R06.09 Other forms of dyspnea (principal); R25.1 Tremor, unspecified
CPT/HCPCS: A0425; A0427

== ENCOUNTER 2023-12-09 23:31 | Emergency (ER) | payer MEDICARE, SELFPAY ==
[2023-12-09 23:44] VITALS: BP 130/64; PULSE 91; RESP 16; TEMP 36.7; O2SAT 98; BMI 30.3
--- NOTE | 2023-12-10 00:16 | ED_ITS ---
HPI - General Adult General Chief complaint: Anxiety Stated complaint: anxiety Time Seen by Provider: 12/10/23 00:03 Source: patient and EMS Mode of arrival: EMS Limitations: no limitations History of Present Illness HPI narrative: 83 Year Old female presents the emergency department by EMS, shortly followed thereafter with spouse. She reports that she started having feelings of chest pain with anxiety this evening Gradual onset. constant with no radiation initially. EMS assessed, noted stable vital signs and administered Ativan. Symptoms improved within a few minutes of taking the Ativan and she is as ymptomatic at this time. She admits that there has been family stress and therefore she has not been taking her medications as prescribed including her antihypertensives and her antianxiety medications. confirms this with nodding. Patient states that when she is undergoing stress, she does tend to not take care of herself properly. She is very aware that this does not help the situation. She does have access to medications supply, has simply just put them away. Denies any intent of self-harm. Denies a history of coronary artery disease or AFib. Does have history of hypertension, nonsmoker. Is prescribed a statin, has not been using for the last week or so. No fever, signs of illness or recent injury. No syncope, no dizziness. No abdominal symptoms. Normal appetite and intake recently. No other abnormalities noted by EMS team per report. She arrived prior to the start of my shift. past medical history notable for hypertension, anxiety. Potentially she may also have type 2 diabetes but [id number]. Nonsmoker. Prior history of mastectomy and cholecystectomy. ROS notable for the chest and anxiety symptoms as above. Chest symptoms resolved. Otherwise negative times 12 systems. Related Data Home Medications Medication Instructions Recorded Confirmed amlodipine 2.5 mg tablet 2.5 mg PO DAILY 03/20/23 09/05/23 carvedilol 12.5 mg tablet 12.5 mg PO BID 03/20/23 09/05/23 chlorthalidone 25 mg tablet 25 mg PO DAILY 03/20/23 09/05/23 cyanocobalamin (vitamin B-12) 1,000 mcg PO DAILY 03/20/23 09/05/23 1,000 mcg tablet ferrous sulfate 325 mg (65 mg 325 mg PO BID 03/20/23 09/05/23 iron) tablet (FeroSul) losartan 100 mg tablet 100 mg PO DAILY 03/20/23 09/05/23 metformin 1,000 mg tablet 1,000 mg PO BID 03/20/23 09/05/23 omeprazole 20 mg capsule,delayed 20 mg PO BID 03/20/23 09/05/23 release rosuvastatin 10 mg tablet 10 mg PO QPM 03/20/23 09/05/23 venlafaxine 150 mg 50 mg PO DAILY 03/20/23 09/05/23 capsule,extended release 24 hr venlafaxine 75 mg capsule,extended 50 mg PO DAILY 03/20/23 09/05/23 release 24 hr Previous Rx's Medication Instructions Recorded hydrocodone 5 mg-acetaminophen 325 1 tab PO Q6H PRN pain #10 tabs 07/02/23 mg tablet benzonatate 100 mg capsule 100 mg PO BID-TID PRN cough #20 08/17/23 caps peg 3350-electrolytes 236 240 ml PO ONCE #4,000 mL 10/16/23 gram-22.74 gram-6.74 gram-5.86 gram solution (Golytely) Allergies Allergy/AdvReac Type Severity Reaction Status Date / Time latex Allergy Verified 09/05/23 08:50 morphine Allergy Rash Verified 09/05/23 08:50 silicone Allergy Rash Verified 09/05/23 08:50 topiramate [From Topamax] Allergy Hallucinati Verified 09/05/23 08:50 ng surgical tape Allergy Uncoded 09/05/23 08:49 PFSH PFSH Social History Smoking Status: Never smoker Do you use any of these nicotine containing products: None How often do you have a drink containing alcohol: monthly or less AUDIT-C Alcohol total score: 1 Non-prescribed substance use: denies use service: No Exam Const: Vital Signs, click to edit/add: Vital Signs - 24 hr 12/09/23 23:44 Temperature 98.0 F Pulse Rate [Left P ulse Oximeter] 91 Respiratory Rate 16 Blood Pressure [Ri ght Upper Arm] 130/64 Pulse Oximetry 98 Oxygen Delivery Me thod Room Air Documenting provider has reviewed patient's vital signs: yes Common normals: alert General appearance: well kempt Orientation/consciousness: Yes awake Other: Calm after Ativan. Not distressed. Answers questions appropriately. HENMT: Common normals: normocephalic Head and scalp: normocephalic Face and sinus: normal facial exam Mouth: oral and palatal mucosa normal Throat: posterior oropharynx normal Eye: Common normals: conjunctivae normal General eye: normal appearance of both eyes Conjunctiva: conjunctiva(e) normal Neck & C-Spine: Common normals: no lymphadenopathy Resp: Common normals: normal respiratory effort, no use of accessory muscles and clear to auscultation bilaterally Effort & inspection: able to speak in complete sentences Auscultation: clear to auscultation bilaterally Cardio: Common normals: regular rate, regular rhythm, S1 normal heart sound, S2 normal heart sound and no murmurs Rate: regular rate Rhythm: regular rhythm Heart sounds: S1 normal and S2 normal GI: Common normals: Normal to inspection, nondistended, normoactive bowel sounds present and soft to palpation Palpation: soft Extremity: Common normals: normal to inspection and no pedal edema Neuro: Sensorium/orientation: awake and alert Speech: speech normal Motor exam: no tremor noted and no movement abnormalities noted Psych: Appearance: well kempt Attitude: calm and engaged Activity/motor behavior: appropriate eye contact Insight: insight good Judgement: judgment good Skin: Common normals: no rashes or lesions noted General skin exam: no rashes or lesions noted Course Course ED Course: 83-year-old female with multiple risk factors for cardiac disease, arriving by EMS because of chest pain and anxiety, symptoms now fully resolved after administration of Ativan. No severe hypertension at this time. I recommended an EKG and basic labs to make sure that there are no signs of myocardial ischemia. Stressed the importance of taking care of herself and taking her medications and she verbalizes understanding and agreement. Await findings. Reevaluation(s) Time of Reevaluation #1: 01:17 Reevaluation #1: Patient continuing to be asymptomatic following her Ativan given by the ambulance crew. She is monitored here in the ED and shows no signs of arrhythmia. Troponins are normal, EKG stable, remainder of labs show only a mildly decreased potassium. She is given oral replacement here in the ED. We discussed her symptoms and I encouraged her to go back on her typical home medications including her venlafaxine to help prevent these episodes. I am not comfortable giving her additional antianxiety medication until she is properly taking those prescribed to her. I recommended that she make a follow-up with her primary care provider in a week to further discuss if she continues to have issues with anxiety. Alarm symptoms reviewed that would warrant repeat ED presentation and written instructions also provided. Vital Signs Vital signs: Initial Vital Signs Temperature 98.0 F 12/09/23 23:44 Temperature Source Temporal Artery Scan 12/09/23 23:44 Pulse Rate 91 12/09/23 23:44 Pulse Rhythm Regular 12/09/23 23:44 Respiratory Rate 16 12/09/23 23:44 Blood Pressure 130/64 12/09/23 23:44 Blood Pressure Mean 86 12/09/23 23:44 Blood Pressure Position Semi-Fowlers 12/09/23 23:44 Pulse Oximetry 98 12/09/23 23:44 Oxygen Delivery Method Room Air 12/09/23 23:44 Vital Signs Temperature 98.0 F 12/09/23 23:44 Pulse Rate 91 12/09/23 23:44 Respiratory Rate 16 12/09/23 23:44 Blood Pressure 130/64 12/09/23 23:44 Pulse Oximetry 98 12/09/23 23:44 Oxygen Delivery Method Room Air 12/09/23 23:44 Temperature 98.0 F 12/09/23 23:44 Pulse Rate 91 12/09/23 23:44 Respiratory Rate 16 12/09/23 23:44 Blood Pressure 130/64 12/09/23 23:44 Pulse Oximetry 98 12/09/23 23:44 Oxygen Delivery Method Room Air 12/09/23 23:44 Medications Administered Medications: Generic Name Dose Route Start Last Admin Trade Name Freq PRN Reason Stop Dose Admin Potassium Chloride 40 meq 12/10/23 01:17 12/10/23 01:27 Potassium Chloride 10 Meq Capsule Er PO 12/10/23 01:18 40 meq ONCE ONE Administration Medical Decision Making Lab Data Lab results reviewed: Yes I reviewed the patient's lab results Lab results narrative: Mildly low potassium only. Labs: Lab Results 12/10/23 12/10/23 Range/Units 00:15 00:30 WBC 8.54 (4.50-11.00) K/uL RBC 3.99 L (4.00-5.20) m/uL Hgb 10.5 L (12.0-16.0) gm/dL Hct 33.4 (33.0-51.0) % MCV 84 (80-100) fL MCH 26 (26-34) pg MCHC 31 L (32-36) gm/dL RDW Coeff of Lelia 17.1 H (11.5-15.5) % Plt Count 217 (140-440) K/uL Neut % (Auto) 66.0 (42.0-72.0) % Lymph % (Auto) 20.5 (20-44) % Gray % (Auto) 8.7 (0.0-11.0) % Eos % (Auto) 4.2 (0.0-7.0) % Baso % (Auto) 0.5 (0.0-3.0) % Neut # (Auto) 5.64 (1.7-7.0) K/uL Lymph # (Auto) 1.75 (0.90-2.90) K/uL Gray # (Auto) 0.70 (0.00-0.90) K/UL Eos # (Auto) 0.36 (0.00-0.50) K/uL Baso # (Auto) 0.04 (0.00-0.30) K/uL Abs Immat Gran (auto) 0.01 (0.00-0.30) K/uL Imm/Tot Granulo (auto) 0.1 % Sodium 144 (135-149) mmol/L Potassium 3.1 L (3.6-5.1) mmol/L Chloride 108 (96-114) mmol/L Carbon Dioxide 26 (20-32) mmol/L Anion Gap 10 (7-15) mEq/L BUN 18 (7-30) mg/dL Creatinine 0.9 (0.5-1.5) mg/dL Estimated Creat Clear 45.81 Estimated GFR 64 ml/min Glucose 144 H (60-115) mg/dL Calcium 9.1 (8.4-10.6) mg/dL C-Reactive Protein 0.9 (0.5-1.0) mg/dL POC Troponin I 0.01 (0.01-0.04) ng/ml ECG Data Attestation: I personally reviewed and interpreted this ECG as follows: Prior ECG tracings: available for review ( Comparison 09/05/2023.) Interpretation: Normal sinus rhythm, rate of 81. Normal intervals. Stable right bundle-b ranch block. No acute ischemic changes, unchanged from August. Discharge Plan Discharge Clinical Impression: Chest pain, non-cardiac, Acute anxiety Patient Disposition: Home w/ Parent or Adult Condition: Improved Instructions: Noncardiac Chest Pain (ED), Anxiety (ED) Additional Instructions: I am glad that your chest pain got better with the anxiety medication that was given by the ambulance crew. There are no signs of heart attack today. All of your blood work and EKG look reassuring. I think that you could likely prevent these episodes by going back on your medications as prescribed. These medications will take a few days to kick back in. If you are still noticing struggles with her moods after a week, I would make a follow-up appointment with your primary care provider for additional discussion and or testing. Activity Level: No Restrictions Discharge Diet: Regular Prescriptions: No Action benzonatate 100 mg capsule 100 mg PO BID-TID PRN (Reason: cough) Qty: 20 0RF hydrocodone-acetaminophen 5-325 mg tablet 1 tab PO Q6H PRN (Reason: pain) Qty: 10 0RF venlafaxine 75 mg capsule,extended release 24hr 50 mg PO DAILY carvedilol 12.5 mg tablet 12.5 mg PO BID venlafaxine 150 mg capsule,extended release 24hr 50 mg PO DAILY cyanocobalamin (vitamin B-12) 1,000 mcg tablet 1,000 mcg PO DAILY amlodipine 2.5 mg tablet 2.5 mg PO DAILY chlorthalidone 25 mg tablet 25 mg PO DAILY ferrous sulfate [FeroSul] 325 mg (65 mg iron) tablet 325 mg PO BID metformin 1,000 mg tablet 1,000 mg PO BID omeprazole 20 mg capsule,delayed release(DR/EC) 20 mg PO BID losartan 100 mg tablet 100 mg PO DAILY rosuvastatin 10 mg tablet 10 mg PO QPM peg 3350-electrolytes [Golytely] 236-22.74-6.74 -5.86 gram recon soln 240 ml PO ONCE Qty: 4000 0RF Rx Instructions: 4pm day prior to procedure. Drink 8oz glass every 15 minutes until 1/2 of solution is gone. 6 hours prior to procedure drink 8 oz glass every 15 minutes until remaining solution gone. Follow Up/Referrals: Eloise Reeves DO [Primary Care Provider] - Stand Alone Forms: [facility] Info Instructions
[2023-12-10 00:41] LABS: Basophils Absolute Auto 0.04 K/uL (0.00-0.30); Basophils Percent Auto 0.5 % (0.0-3.0); Eosinophils Absolute Auto 0.36 K/uL (0.00-0.50); Eosinophils Percent Auto 4.2 % (0.0-7.0); Hematocrit 33.4 % (33.0-51.0); Hemoglobin* 10.5 gm/dL (12.0-16.0); Immature Granulocytes Abs Auto 0.01 K/uL (0.00-0.30); Immature Granulocytes Pct Auto 0.1 %; Lymphocytes Absolute Auto 1.75 K/uL (0.90-2.90); Lymphocytes Percent Auto 20.5 % (20-44); Mean Corpuscular HGB Conc 31 gm/dL (32-36); Mean Corpuscular Hemoglobin 26 pg (26-34); Mean Corpuscular Volume 84 fL (80-100); Monocytes Percent Auto 8.7 % (0.0-11.0); Neutrophils Absolute Auto 5.64 K/uL (1.7-7.0); Platelet Count* 217 K/uL (140-440); RDW Coefficient of Variation % 17.1 % (11.5-15.5); Red Blood Count 3.99 m/uL (4.00-5.20); White Blood Count* 8.54 K/uL (4.50-11.00)
[2023-12-10 00:44] LABS: Troponin, Point-of-Care* 0.01 ng/ml (0.01-0.04)
[2023-12-10 00:45] LABS: Slide Review Reflex No
--- OUTSIDE RECORDS SUMMARY | 2023-12-10 00:54 | XMS_ITS | Referral Summary ---
Author Name Unknown Organization [facility] Address [address] [place] [address] Phone Care Team Providers Care Tow Feeder Name Role Phone Eloise Reeves Sushil BUSBY Primary Care Provider Source Comments [employer] is fully rolled out on [employer]. Last update 04/02/09.[facility] Encounters Date Type Department Care Team Description 11/27/2023 1:00 PM DELIVERY TECHNICIAN [facility] [address] [address] Leidy Velazquez, PAElodiaC Mild traumatic brain injury, with loss of consciousness of 30 minutes or less, initial encounter ([facility]) (Primary Dx); Reversed sleep wake cycle; Lack of appetite Discharge Disposition: Discharged to home or self care (routine discharge) 11/04/2023 10:39 PM DELIVERY TECHNICIAN - 11/16/2023 9:19 AM DELIVERY TECHNICIAN Hospital Encounter [facility] Surgery/Trauma/Kimmie ro [address] [place] [address] Devin Dougherty MD Petrun, Branden, MD Lumbard, Gregg Vargas MD Fall, initial encounter Discharge Disposition: Discharged/transd to SNF with Medicare certification 11/09/2023 Orders Only Unspecified Department [place] Unknown, Provider 11/09/2023 Orders Only Unspecified Department [place] Unknown, Provider 11/08/2023 Orders Only Unspecified Department [place] Unknown, Provider 11/08/2023 Orders Only Unspecified Department [place] Unknown, Provider 11/08/2023 Orders Only Unspecified Department [place] Unknown, Provider 11/07/2023 Orders Only Unspecified Department [place] Unknown, Provider 11/07/2023 Orders Only Unspecified Department [place] Unknown, Provider 11/07/2023 Orders Only Unspecified Department [place] Unknown, Provider 11/06/2023 Orders Only Unspecified Department [place] Unknown, Provider 11/06/2023 Orders Only Unspecified Department [place] Unknown, Provider 11/06/2023 Orders Only Unspecified Department [place] Unknown, Provider 11/05/2023 Orders Only Unspecified Department [place] Unknown, Provider 11/04/2023 Travel from Last 3 Months Allergies Active Allergy Reactions Criticality Noted Date Comments Adhesive Tape Unknown 11/04/2023 Latex Other (see comments) 09/05/2023 Morphine Unknown 11/04/2023 Silicone Rash 09/05/2023 Topiramate Other (see comments),Hallucinations High 06/01/2020 Medications * Be aware that medications may not be up to date as of this document. Always verify current medications with patient. Medication Sig Dispensed Refills Start Date End Date Status allopurinol (ZYLOPRIM) 100 mg oral TABS Take 0.5 tablets (50 mg) by mouth daily. Active metFORMIN (GLUCOPHAGE) 500 mg oral TABS Take 1 tablet (500 mg) by mouth twice daily. Active chlorthaLIDONE (HYGROTON) 25 mg oral TABS Take 1 tablet (25 mg) by mouth daily. Active rosuvastatin (CRESTOR) 20 mg oral tablet Take 1 tablet (20 mg) by mouth daily. Active losartan (COZAAR) 25 mg oral TABS Take 1 tablet (25 mg) by mouth twice daily. 11/13/2023 Active venlafaxine (EFFEXOR XR) 75 mg oral capsule 24 H Take 3 capsules (225 mg) by mouth daily. 11/14/2023 Active acetaminophen (TYLENOL) 325 mg oral tablet Take 2 tablets (650 mg) by mouth every 6 hours as needed for Mild Pain. 11/13/2023 Active carvedilol (COREG) 6.25 mg oral TABS Take 1 tablet (6.25 mg) by mouth twice daily. 11/13/2023 Active divalproex sodium (DEPAKOTE SPRINKLES) 125 mg oral CSDR Take 2 capsules (250 mg) by mouth twice daily. 11/13/2023 Active melatonin 3 mg oral tablet Take 1 tablet (3 mg) by mouth at bedtime. 11/13/2023 Active potassium chloride (K-DUR) 20 meq oral tablet Take 2 tablets (40 mEq) by mouth daily. 11/14/2023 Active sennosides-docus ate sodium (STOOL SOFTENER/LAXATIV E) 8.6-50 mg oral tablet Take 1 tablet by mouth twice daily as needed for Constipation. 11/13/2023 Active hydrOXYzine (ATARAX;VISTARIL ) 25 mg oral tablet Take 1 tablet (25 mg) by mouth every 6 hours as needed. Active venlafaxine (EFFEXOR XR) 75 mg oral capsule 24 H Take 3 capsules (225 mg) by mouth daily. 4 Discontinued losartan (COZAAR) 25 mg oral TABS Take 1 tablet (25 mg) by mouth daily. 4 Discontinued amLODIPine (NORVASC) 5 mg oral TABS Take 1 tablet (5 mg) by mouth daily. 11/14/2023 4 Discontinued(Alte rnate therapy) Active Problems Problem Noted Date Diagnosed Date Fall, initial encounter 11/04/2023 Social History Tobacco Use Types Packs/Day Years Used Date Smoking Tobacco: Never Smokeless Tobacco: Never Tobacco Cessation:Counseling Given: Not Answered Alcohol Use Standard Drinks/Week Comments Not Currently 0 (1 standard drink = 0.6 oz pur e alcohol) Humiliation, Afraid, Rape, and Kick questionnair e Answer Date Recorded Within the last year, have y ou been afraid of your partner or ex-partner? No 11/05/2023 Within the last year, have y ou been humiliated or emotionally abused in other ways by your partner or ex-partner? No Within the last year, have y ou been kicked, hit, slapped, or otherwise physically hurt by your partner or ex-partner? No 11/05/2023 Within the last year, have y ou been raped or forced to have any kind of sexual activity by your partner or ex-partner? No 11/05/2023 Overall Financial Resource Strain (CARDIA) Answe r Date Recorded How hard is it for you to pa y for the very basics like food, housing, medical care, and heating? Not hard at all 11/05/2023 Hunger Vital Sign Answer Date Recorded Within the past 12 months, y ou worried that your food would run out before you got the money to buy more. Never true 11/05/19 24 Within the past 12 months, t he food you bought just didn't last and you didn't have money to get more. Never true 11/05/2023 PRAPARE - Transportation Answer Date Re corded In the past 12 months, has l ack of transportation kept you from medical appointments or from getting medications? No 05/2024 In the past 12 months, has l ack of transportation kept you from meetings, work, or from getting things needed for daily living? No 11/05/2023 Housing Stability Answer Date Recorded What is your housing situation today? 3 - I have housing 11/05/2023 Sex and Gender Information Value Date Recorded Sex Assigned at Not on file Gender Identity Not on file Sexual Orientation Not on file Last Filed Vital Signs Vital Sign Reading Time Taken Comments Blood Pressure 108/71 11/27/2023 12:54 PM DELIVERY TECHNICIAN Pulse 74 11/27/2023 12:54 PM DELIVERY TECHNICIAN Temperature 36.6 ??C (97.8 ??F) 11/16/2023 4:25 AM CS T Respiratory Rate 16 11/16/2023 4:25 AM DELIVERY TECHNICIAN Oxygen Saturation 90% 11/16/2023 4:25 AM DELIVERY TECHNICIAN Inhaled Oxygen Concentration - - Weight 61.6 kg (135 lb 12.8 oz) 024 12:54 PM DELIVERY TECHNICIAN Height 147.3 cm (4' 10) 11/05/2023 12: 03 AM DELIVERY TECHNICIAN Body Mass Index 28.38 11/05/2023 12:03 AM DELIVERY TECHNICIAN Plan of Treatment Not on file Procedures Procedure Name Priority Date/Time Associated Diagnosis Comments PANEL BASIC METABOLIC (BMP) Routine 11/16/2023 7:22 AM DELIVERY TECHNICIAN POC GLUCOSE Routine 11/16/2023 6:58 AM DELIVERY TECHNICIAN POC GLUCOSE Routine 11/15/2023 9:15 PM DELIVERY TECHNICIAN POC GLUCOSE Routine 11/15/2023 4:09 PM DELIVERY TECHNICIAN POC GLUCOSE Routine 11/15/2023 12:46 PM DELIVERY TECHNICIAN PANEL BASIC METABOLIC (BMP) Routine 11/15/2023 7:39 AM DELIVERY TECHNICIAN POC GLUCOSE Routine 11/15/2023 6:11 AM DELIVERY TECHNICIAN POC GLUCOSE Routine 11/14/2023 9:02 PM DELIVERY TECHNICIAN POC GLUCOSE Routine 11/14/2023 4:21 PM DELIVERY TECHNICIAN POC GLUCOSE Routine 11/14/2023 12:19 PM DELIVERY TECHNICIAN PANEL BASIC METABOLIC (BMP) Routine 11/14/2023 8:59 AM DELIVERY TECHNICIAN POC GLUCOSE Routine 11/14/2023 8:11 AM DELIVERY TECHNICIAN POC GLUCOSE Routine 11/13/2023 9:15 PM DELIVERY TECHNICIAN POC GLUCOSE Routine 11/13/2023 4:03 PM DELIVERY TECHNICIAN POC GLUCOSE Routine 11/13/2023 11:21 AM DELIVERY TECHNICIAN PANEL BASIC METABOLIC (BMP) Routine 11/13/2023 6:41 AM DELIVERY TECHNICIAN POC GLUCOSE Routine 11/13/2023 6:31 AM DELIVERY TECHNICIAN POC GLUCOSE Routine 11/12/2023 9:21 PM DELIVERY TECHNICIAN POC GLUCOSE Routine 11/12/2023 4:12 PM DELIVERY TECHNICIAN PANEL BASIC METABOLIC (BMP) Timed 11/12/2023 1:01 PM DELIVERY TECHNICIAN POC GLUCOSE Routine 11/12/2023 12:14 PM DELIVERY TECHNICIAN POC GLUCOSE Routine 11/12/2023 6:09 AM DELIVERY TECHNICIAN POC GLUCOSE Routine 11/11/2023 8:48 PM DELIVERY TECHNICIAN POC GLUCOSE Routine 11/11/2023 4:11 PM DELIVERY TECHNICIAN POC GLUCOSE Routine 11/11/2023 11:47 AM DELIVERY TECHNICIAN PHOSPHORUS Routine 11/11/2023 6:09 AM DELIVERY TECHNICIAN PANEL BASIC METABOLIC (BMP) Routine 11/11/2023 6:09 AM DELIVERY TECHNICIAN MAGNESIUM Routine 11/11/2023 6:09 AM DELIVERY TECHNICIAN TC LAB BLOOD DRAW BY VENIPUNCTURE Routine 11/11/2023 6:09 AM DELIVERY TECHNICIAN POC GLUCOSE Routine 11/10/2023 8:58 PM DELIVERY TECHNICIAN POC GLUCOSE Routine 11/10/2023 4:16 PM DELIVERY TECHNICIAN POC GLUCOSE Routine 11/10/2023 11:15 AM DELIVERY TECHNICIAN PHOSPHORUS Routine 11/10/2023 6:17 AM DELIVERY TECHNICIAN PANEL BASIC METABOLIC (BMP) Routine 11/10/2023 6:17 AM DELIVERY TECHNICIAN MAGNESIUM Routine 11/10/2023 6:17 AM DELIVERY TECHNICIAN PC LAB CBC/PLT Routine 11/10/2023 6:17 AM DELIVERY TECHNICIAN POC GLUCOSE Routine 11/09/2023 9:41 PM DELIVERY TECHNICIAN POC GLUCOSE Routine 11/09/2023 3:58 PM DELIVERY TECHNICIAN ANTI XA ASSAY LMW HEPARIN Timed 11/09/2023 2:18 PM DELIVERY TECHNICIAN POC GLUCOSE Routine 11/09/2023 11:28 AM DELIVERY TECHNICIAN XR FOOT RIGHT 3 V AP/OBL/LAT* Routine 11/09/2023 10:36 AM DELIVERY TECHNICIAN TELEMETRY STRIPS 11/09/2023 8:48 AM DELIVERY TECHNICIAN POC GLUCOSE Routine 11/09/2023 5:46 AM DELIVERY TECHNICIAN PC VALPROIC ACID LEVEL DEPAHOTE Routine 11/09/2023 5:41 AM DELIVERY TECHNICIAN PHOSPHORUS Routine 11/09/2023 5:41 AM DELIVERY TECHNICIAN PANEL BASIC METABOLIC (BMP) Routine 11/09/2023 5:41 AM DELIVERY TECHNICIAN MAGNESIUM Routine 11/09/2023 5:41 AM DELIVERY TECHNICIAN PC LAB CBC/PLT Routine 11/09/2023 5:41 AM DELIVERY TECHNICIAN TELEMETRY STRIPS 11/09/2023 1:21 AM DELIVERY TECHNICIAN POC GLUCOSE Routine 11/08/2023 8:40 PM DELIVERY TECHNICIAN TELEMETRY STRIPS 11/08/2023 7:31 PM DELIVERY TECHNICIAN PHOSPHORUS Routine 11/08/2023 4:20 PM DELIVERY TECHNICIAN MAGNESIUM Routine 11/08/2023 4:20 PM DELIVERY TECHNICIAN PANEL BASIC METABOLIC (BMP) Routine 11/08/2023 4:20 PM DELIVERY TECHNICIAN TC LAB BLOOD DRAW BY VENIPUNCTURE Routine 11/08/2023 4:20 PM DELIVERY TECHNICIAN POC GLUCOSE Routine 11/08/2023 3:56 PM DELIVERY TECHNICIAN POC GLUCOSE Routine 11/08/2023 11:03 AM DELIVERY TECHNICIAN TELEMETRY STRIPS 11/08/2023 9:49 AM DELIVERY TECHNICIAN XR CHEST 1 VIEW AP OR PA* Routine 11/08/2023 6:30 AM DELIVERY TECHNICIAN POC GLUCOSE Routine 11/08/2023 6:22 AM DELIVERY TECHNICIAN TELEMETRY STRIPS 11/08/2023 2:59 AM DELIVERY TECHNICIAN POC GLUCOSE Routine 11/07/2023 9:34 PM DELIVERY TECHNICIAN TELEMETRY STRIPS 11/07/2023 7:31 PM DELIVERY TECHNICIAN POC GLUCOSE Routine 11/07/2023 4:06 PM DELIVERY TECHNICIAN POC GLUCOSE Routine 11/07/2023 11:45 AM DELIVERY TECHNICIAN XR CHEST 2 VIEWS PA + LAT* Routine 11/07/2023 10:07 AM DELIVERY TECHNICIAN TELEMETRY STRIPS 11/07/2023 9:29 AM DELIVERY TECHNICIAN PC PROCALCITONIN (PCT) Routine 8:34 AM DELIVERY TECHNICIAN PC LAB CBC/PLT Routine 11/07/2023 8:34 AM DELIVERY TECHNICIAN PANEL BASIC METABOLIC (BMP) Routine 11/07/2023 8:34 AM DELIVERY TECHNICIAN MAGNESIUM Routine 11/07/2023 8:34 AM DELIVERY TECHNICIAN PHOSPHORUS Routine 11/07/2023 8:34 AM DELIVERY TECHNICIAN POC GLUCOSE Routine 11/07/2023 5:45 AM DELIVERY TECHNICIAN TELEMETRY STRIPS 11/07/2023 1:07 AM DELIVERY TECHNICIAN POC GLUCOSE Routine 11/06/2023 9:21 PM DELIVERY TECHNICIAN TELEMETRY STRIPS 11/06/2023 4:28 PM DELIVERY TECHNICIAN PC GASES,BLOOD,ANY COMB OF PH,PCD2,PO2,CO2,HCO2 Routine 11/06/2023 1:06 PM DELIVERY TECHNICIAN MAGNESIUM Timed 11/06/2023 1:06 PM DELIVERY TECHNICIAN PHOSPHORUS Timed 11/06/2023 1:06 PM DELIVERY TECHNICIAN PANEL BASIC METABOLIC (BMP) Timed 11/06/2023 1:06 PM DELIVERY TECHNICIAN PC LAB CBC/PLT Timed 11/06/2023 1:06 PM DELIVERY TECHNICIAN POC GLUCOSE Routine 11/06/2023 1:04 PM DELIVERY TECHNICIAN POC GLUCOSE Routine 11/06/2023 10:49 AM DELIVERY TECHNICIAN TELEMETRY STRIPS 11/06/2023 8:49 AM DELIVERY TECHNICIAN PC LAB GLYCOSYLATED HGB Routine 11/06/2023 6:31 AM DELIVERY TECHNICIAN PROTHROMBIN (PT) & INR Timed 6:31 AM DELIVERY TECHNICIAN PC PHOSPHORUS INORGANIC(PHOSPHATE) Routine 11/06/2023 6:31 AM DELIVERY TECHNICIAN PC MAGNESIUM, SERUM Routine 11/06/2023 6 :31 AM DELIVERY TECHNICIAN PC LAB CBC/PLT Routine 11/06/2023 6:31 AM DELIVERY TECHNICIAN TC LAB BLOOD DRAW BY VENIPUNCTURE Routine 11/06/2023 6:31 AM DELIVERY TECHNICIAN POC GLUCOSE Routine 11/06/2023 5:39 AM DELIVERY TECHNICIAN TELEMETRY STRIPS 11/06/2023 1:52 AM DELIVERY TECHNICIAN POC GLUCOSE Routine 11/05/2023 4:54 PM DELIVERY TECHNICIAN MAGNESIUM Routine 11/05/2023 4:48 PM DELIVERY TECHNICIAN POTASSIUM Routine 11/05/2023 4:[address] HEAD NO IV CONTRAST Timed 11:44 AM DELIVERY TECHNICIAN POC GLUCOSE Routine 11/05/2023 11:11 AM DELIVERY TECHNICIAN TELEMETRY STRIPS 11/05/2023 9:25 AM DELIVERY TECHNICIAN EKG ADULT (12-LEAD) Routine 11/05/2023 6 :38 AM DELIVERY TECHNICIAN POC GLUCOSE Routine 11/05/2023 6:[address] HEAD NO IV CONTRAST Timed 4:54 AM DELIVERY TECHNICIAN PROTHROMBIN (PT) & INR Timed 4:27 AM DELIVERY TECHNICIAN PC PHOSPHORUS INORGANIC(PHOSPHATE) Routine 11/05/2023 4:27 AM DELIVERY TECHNICIAN PC MAGNESIUM, SERUM Routine 11/05/2023 4 :27 AM DELIVERY TECHNICIAN PC GASES,BLOOD,ANY COMB OF PH,PCD2,PO2,CO2,HCO2 Routine 11/05/2023 4:27 AM DELIVERY TECHNICIAN PC LAB CBC/PLT Routine 11/05/2023 4:27 AM DELIVERY TECHNICIAN TC LAB BLOOD DRAW BY VENIPUNCTURE Routine 11/05/2023 4:27 AM DELIVERY TECHNICIAN PC TROPONIN QUANTITATIVE Timed 11/05/2023 4:27 AM DELIVERY TECHNICIAN PC TROPONIN QUANTITATIVE Timed 11/05/2023 2:58 AM DELIVERY TECHNICIAN CK, TOTAL STAT 11/05/2023 1:32 AM DELIVERY TECHNICIAN FIBRINOGEN STAT 11/05/2023 1:32 AM DELIVERY TECHNICIAN PC LAB PTT STAT 11/05/2023 1:32 AM DELIVERY TECHNICIAN PANEL HEPATIC FUNCTION STAT 1:32 AM DELIVERY TECHNICIAN PC LAB CBC/PLT STAT 11/05/2023 1:32 AM DELIVERY TECHNICIAN PANEL BASIC METABOLIC (BMP) STAT 11/05/2023 1:32 AM DELIVERY TECHNICIAN MAGNESIUM STAT 11/05/2023 1:32 AM DELIVERY TECHNICIAN PHOSPHORUS STAT 11/05/2023 1:32 AM DELIVERY TECHNICIAN PROTHROMBIN (PT) & INR STAT 1:32 AM DELIVERY TECHNICIAN PC IONIZED,CALCIUM STAT 11/05/2023 1: 18 AM DELIVERY TECHNICIAN PC LACTATE (LACTIC ACID) STAT 11/05/2023 1:18 AM DELIVERY TECHNICIAN PC GASES,BLOOD,ANY COMB OF PH,PCD2,PO2,CO2,HCO2 STAT 11/05/2023 1:18 AM DELIVERY TECHNICIAN PC TROPONIN QUANTITATIVE Timed 11/05/2023 1:[address] HEAD-NECK - ANGIO - W/IV CON STAT 11/05/2023 12:09 AM DELIVERY TECHNICIAN PC LAB COMPLETE UA STAT 11/04/2023 11 :55 PM DELIVERY TECHNICIAN PF INSERT CATH,ART,PERCUT,SANTA ERM Routine 11/04/2023 11:43 PM DELIVERY TECHNICIAN ED EKG (12-LEAD) Routine 11/04/2023 11:2 [address] SPINE LUMBAR NO IV CON STAT 11/04/2023 11:[address] SPINE THORACIC NO IV CON STAT 11/04/2023 11:[address] CHEST/ABD/PELVIS W/IV CONT STAT 11/04/2023 11:[address] SPINE CERVICAL NO IV CON STAT 11/04/2023 11:[address] HEAD NO IV CONTRAST STAT 11:05 PM DELIVERY TECHNICIAN XR CHEST 1 VIEW AP OR PA* STAT 11/04/2023 10:57 PM DELIVERY TECHNICIAN TC LAB ER STAT TOTAL HGB STAT 11/04/2023 10:48 PM DELIVERY TECHNICIAN PC ELECTROLYTES PANEL STAT 11/04/2023 10:48 PM DELIVERY TECHNICIAN PC HEPARIN ASSAY STAT 11/04/2023 10:4 5 PM DELIVERY TECHNICIAN EXTRA TUBE - SST Routine 11/04/2023 10:4 5 PM DELIVERY TECHNICIAN TC LAB BLOOD DRAW BY VENIPUNCTURE Routine 11/04/2023 10:45 PM DELIVERY TECHNICIAN PC TROPONIN QUANTITATIVE STAT 11/04/2023 10:45 PM DELIVERY TECHNICIAN PC LAB PTT STAT 11/04/2023 10:45 PM DELIVERY TECHNICIAN PC LAB ED INR STAT 11/04/2023 10:45 PM DELIVERY TECHNICIAN PRECAUTIONARY TUBE STAT 11/04/2023 10 :45 PM DELIVERY TECHNICIAN PC LACTATE (LACTIC ACID) STAT 11/04/2023 10:45 PM DELIVERY TECHNICIAN FIBRINOGEN STAT 11/04/2023 10:45 PM DELIVERY TECHNICIAN PC LAB CBC W/DIFF & PLT STAT 11/04/2023 10:45 PM DELIVERY TECHNICIAN PC GASES,BLOOD,ANY COMB OF PH,PCD2,PO2,CO2,HCO2 STAT 11/04/2023 10:45 PM DELIVERY TECHNICIAN ED US CRITICAL CARE STAT 11/04/2023 1 0:40 PM DELIVERY TECHNICIAN PANEL LIPID Routine 10/10/2021 11:08 AM DELIVERY TECHNICIAN from Last 3 Months or Most Recently Relevant to Health Maintenance Results * (ABNORMAL) PANEL BASIC METABOLIC (BMP) (11/16/2023 7:22 AM DELIVERY TECHNICIAN) Only the most recent of12 resultswithin the time period is included. Sodium 143 135 - 148 mEq/L [facility] Potassium 3.9 3.5 - 5.3 mEq/L [facility] Chloride 105 92 - 108 mEq/L [facility] CO2 27 22 - 30 mEq/L [facility] AnGap 11 8 - 16 mEq/L [facility] Glucose 87 70 - 100 mg/dL [facility] BUN 23 8 - 23 mg/dL [facility] Creatinine 1.19(H) 0.50 - 1.00 mg/dL [facility] Calcium 9.4 8.8 - 10.2 mg/dL [facility] eGFR (2020 CKD-EPI) 46(L) >=60 ml/min/1.7 3m2 [facility] Comment: The estimated glomerular filtration rate (eGFR) was calculated using the CKD-EPI 2020 creatinine equation, which does not include race as a factor. This equation is validated in individuals 18 years of age and older, and eGFR is normalized to a body surface area of 1.73m^2. Blood 11/16/2023 7:22 AM DELIVERY TECHNICIAN 11/16/2023 7:43 AM DELIVERY TECHNICIAN Jesusita Aiken APRN, CNP LABORATO RY [facility] [address] [address] * POC GLUCOSE (11/16/2023 6:58 AM DELIVERY TECHNICIAN) Only the most recent of42 resultswithin the time period is included. POC Glucose 84 70 - 100 mg/dL [facility] [place] - POINT OF CARE Blood 11/16/2023 6:58 AM DELIVERY TECHNICIAN Devin Dougherty MD LABORATORY [facility] - POINT OF CARE [address] [place] [id number], * PHOSPHORUS (11/11/2023 6:09 AM DELIVERY TECHNICIAN) Only the most recent of7 resultswithin the time period is included. Phosphorus 3.5 2.5 - 4.5 mg/dL [facility] Blood 11/11/2023 6:09 AM DELIVERY TECHNICIAN 11/11/2023 6:36 AM DELIVERY TECHNICIAN Quinn Covarrubias MD LABORATORY Performing Organization Address City/[facility]/ZIP Co de Phone Number [facility] [address] [address] * MAGNESIUM (11/11/2023 6:09 AM DELIVERY TECHNICIAN) Only the most recent of8 resultswithin the time period is included. Pathologist [facility] Magnesium 2.2 1.6 - 2.4 mg/dL [facility] Blood 11/11/2023 6:09 AM DELIVERY TECHNICIAN 11/11/2023 6:36 AM DELIVERY TECHNICIAN Quinn Covarrubias MD LABORATORY Performing Organization Address City/[facility] Co de Phone Number [facility] [address] [address] * (ABNORMAL) CBC WITH PLATELET (11/11/2023 6:09 AM DELIVERY TECHNICIAN) Only the most recent of7 resultswithin the time period is included. Pathologist [facility] WBC 5.60 4.00 - 10.00 k/cmm [facility] RBC 3.80(L) 3.90 - 5.20 m/cmm [facility] Hgb 9.5(L) 11.5 - 15.7 g/dL [facility] Hematocrit 31.4(L) 34.0 - 45.0 % [facility] MCV 82.6 80.0 - 100.0 fL [facility] MCH 25.0 25.0 - 32.0 pg [facility] MCHC 30.3(L) 31.0 - 36.0 g/dL [facility] RDW 16.1(H) 11.5 - 14.5 % [facility] Plt 275 150 - 400 k/cmm [facility] MPV 11.8 6.5 - 12.5 fL [facility] Blood 11/11/2023 6:09 AM DELIVERY TECHNICIAN 11/11/2023 6:36 AM DELIVERY TECHNICIAN Quinn Covarrubias MD LABORATORY Performing Organization Address City/[facility]/ZIP Co de Phone Number [address] [address] * ANTI XA ASSAY LMW HEPARIN (11/09/2023 2:18 PM DELIVERY TECHNICIAN) Anti XA LMW 0.32 IU/mL [facility] Comment: Anti Xa Assay LMW Heparin Therapeutic Ranges: 0.4-1.1 IU/mL for twice daily 1.0-2.0 IU/mL for once daily Blood 11/09/2023 2:18 PM DELIVERY TECHNICIAN 11/09/2023 2:29 PM DELIVERY TECHNICIAN Quinn Covarrubias MD LABORATORY Performing Organization Address [facility] Co de Phone Number [address] [address] * XR FOOT RIGHT 3 V AP/OBL/LAT* (11/09/2023 10:36 AM DELIVERY TECHNICIAN) Anatomical Region Laterality Modality Foot Computed Radiogr aphy 11/09/2023 10:4 7 AM DELIVERY TECHNICIAN Impressions 11/09/2023 10:50 AM DELIVERY TECHNICIAN Impression: No acute osseous abnormality. Generalized osteopenia. Reading Radiologist: Angela Camp Narrative 11/09/2023 10:50 AM DELIVERY TECHNICIAN Technique: XR FOOT RIGHT 3 V AP/OBL/LAT* Indication: pain with ROM and ambulation ?? Comparison: None available Findings: No acute osseous abnormality. Generalized osteopenia. The alignment is within normal limits. No significant soft tissue swelling. Procedure Note Angela Camp MD - 11/09/2023 Technique: XR FOOT RIGHT 3 V AP/OBL/LAT* Indication: pain with ROM and ambulation Comparison: None available Findings: No acute osseous abnormality. Generalized osteopenia. Thealignment is within normal limits. No significant soft tissue swelling. IMPRESSION Impression: No acute osseous abnormality. Generalized osteopenia. Reading Radiologist: Angela Camp Jesusita Larawuyoh [employer], [employer] TRAPPER RAD XRAY * TELEMETRY STRIPS (11/09/2023 8:48 AM DELIVERY TECHNICIAN) Only the most recent of12 resultswithin the time period is included. Narrative 11/09/2023 8:48 AM DELIVERY TECHNICIAN Ordered by an unspecified provider. Provider Unknown RAD ECHO * (ABNORMAL) VALPROATE (DEPAKOTE) LEVEL (11/09/2023 5:41 AM DELIVERY TECHNICIAN) Valproate 31.8(L) 50.0 - 100.0 mcg/mL [facility] [place] [facility] Blood 11/09/2023 5:41 AM DELIVERY TECHNICIAN 11/09/2023 8:19 AM DELIVERY TECHNICIAN Quinn Covarrubias MD LABORATORY [facility] [place] [facility] [address] [id number] * XR CHEST 1 VIEW AP OR PA* (11/08/2023 6:30 AM DELIVERY TECHNICIAN) Only the most recent of2 resultswithin the time period is included. Anatomical Region Laterality Modality Chest Computed Radiogr aphy 11/08/2023 6:56 AM DELIVERY TECHNICIAN Impressions 11/08/2023 7:24 AM DELIVERY TECHNICIAN Impression: Stable chest. I have personally reviewed the image(s) and initial interpretation, and I agree with the findings as documented by the resident/fellow. Reading Radiologist: Ronal Hidalgo Reading Resident: Laith Berkowitz Narrative 11/08/2023 7:24 AM DELIVERY TECHNICIAN Technique: XR CHEST 1 VIEW AP OR PA* Indication: eval for new O2 requirement ?? Comparison: 11/07/2023 Findings: AP view of the chest. Enlarged heart. No new pulmonary opacity. No pleural effusion or pneumothorax. Procedure Note Ronal Hidalgo MBBS - 11/08/2023 Technique: XR CHEST 1 VIEW AP OR PA* Indication: eval for new O2 requirement Comparison: 11/07/2023 Findings: AP view of the chest. Enlarged heart. No new pulmonary opacity.No pleural effusion or pneumothorax. IMPRESSION Impression: Stable chest. I have personally reviewed the image(s) and initial interpretation, and Iagree with the findings as documented by the resident/fellow. Reading Radiologist: Ronal Hidalgo Reading Resident: Laith Berkowitz Quinn Covarrubias MD RAD XRAY * XR CHEST 2 VIEWS PA + LAT* (11/07/2023 10:07 AM DELIVERY TECHNICIAN) Anatomical Region Laterality Modality Chest Computed Radiogr aphy 11/07/2023 10:0 9 AM DELIVERY TECHNICIAN Impressions 11/07/2023 10:10 AM DELIVERY TECHNICIAN Impression: New left basilar opacities with small effusion concerning for developing infection. Reading Radiologist: Phil Contreras Narrative 11/07/2023 10:10 AM DELIVERY TECHNICIAN Technique: XR CHEST 2 VIEWS PA + LAT* Indication: suspicion for pneumonia ?? Comparison: 11/04/2023 Findings: Cardiac size and pulmonary vascularity are within normal limits. There are coarsened opacities in the left lung base with a small effusion present. Procedure Note Phil Contreras, DO - 11/07/2023 Technique: XR CHEST 2 VIEWS PA + LAT* Indication: suspicion for pneumonia Comparison: 11/04/2023 Findings: Cardiac size and pulmonary vascularity are within normal limits.There are coarsened opacities in the left lung base with a small effusionpresent. IMPRESSION Impression: New left basilar opacities with small effusion concerning fordeveloping infection. Reading Radiologist: Phil Contreras Quinn Covarrubias MD RAD XRAY * PROCALCITONIN (11/07/2023 8:34 AM DELIVERY TECHNICIAN) Procalcitonin 0.12 ng/mL [facility] Comment: Results <0.50 ng/mL represent a low risk of severe sepsis and/or septic shock. Results >2.0 ng/mL represent a high risk of severe sepsis and/or septic shock. Blood 11/07/2023 8:34 AM DELIVERY TECHNICIAN 11/07/2023 8:40 AM DELIVERY TECHNICIAN Quinn Covarrubias MD LABORATORY [facility] [address] [address] * (ABNORMAL) BLOOD GASES (11/06/2023 1:06 PM DELIVERY TECHNICIAN) Only the most recent of3 resultswithin the time period is included. PH Jalen 7.36 7.32 - 7.42 [facility] PCO2 Jalen 48 41 - 51 mmHG [facility] PO2 Jalen 86(H) 25 - 40 mmHG [facility] Bicarb Jalen 26 24 - 28 mEq/L [facility] O2 Sat Jalen 96 % [facility] Base Exc Jalen 1.0 -10.0 - 2.0 mEq/L [facility] Blood Venous 11/06/2023 1:06 PM DELIVERY TECHNICIAN 11/06/2023 1:10 PM DELIVERY TECHNICIAN Narrative [facility] - 11/06/2023 1:16 PM DELIVERY TECHNICIAN Draw on Room Air: No O2 LPM (liter/min) Level->4 via mask FiO2 Level: 100 Quinn Covarrubias MD LABORATORY Performing Organization Address City/[facility]/ZIP Co de Phone Number [facility] [address] [address] * (ABNORMAL) ICU MAGNESIUM (11/06/2023 6:31 AM DELIVERY TECHNICIAN) Only the most recent of2 resultswithin the time period is included. Magnesium 2.5(H) 1.6 - 2.4 mg/dL [facility] Blood 11/06/2023 6:31 AM DELIVERY TECHNICIAN 11/06/2023 7:37 AM DELIVERY TECHNICIAN Devin Dougherty MD LABORATORY Performing Organization Address City/[facility]/ZIP Co de Phone Number [facility] [address] [address] * ICU PHOSPHORUS (11/06/2023 6:31 AM DELIVERY TECHNICIAN) Only the most recent of2 resultswithin the time period is included. Phosphorus 4.1 2.5 - 4.5 mg/dL [facility] Blood 11/06/2023 6:31 AM DELIVERY TECHNICIAN 11/06/2023 7:37 AM DELIVERY TECHNICIAN Devin Dougherty MD LABORATORY [facility] [address] [address] * (ABNORMAL) ICU CBC WITH PLATELET (11/06/2023 6:31 AM DELIVERY TECHNICIAN) Only the most recent of2 resultswithin the time period is included. WBC 9.06 4.00 - 10.00 k/cmm [facility] RBC 3.77(L) 3.90 - 5.20 m/cmm [facility] Hgb 9.6(L) 11.5 - 15.7 g/dL [facility] Hematocrit 30.8(L) 34.0 - 45.0 % [facility] MCV 81.7 80.0 - 100.0 fL [facility] MCH 25.5 25.0 - 32.0 pg [facility] MCHC 31.2 31.0 - 36.0 g/dL [facility] RDW 15.9(H) 11.5 - 14.5 % [facility] Plt 284 150 - 400 k/cmm [facility] MPV 12.1 6.5 - 12.5 fL [facility] Blood 11/06/2023 6:31 AM DELIVERY TECHNICIAN 11/06/2023 7:37 AM DELIVERY TECHNICIAN Devin Dougherty MD LABORATORY Performing Organization Address City/[facility] Co de Phone Number [facility] [address] [address] * (ABNORMAL) ICU PANEL BASIC METABOLIC (BMP) (11/06/2023 6:31 AM DELIVERY TECHNICIAN) Only the most recent of2 resultswithin the time period is included. Sodium 142 135 - 148 mEq/L [facility] Potassium 3.7 3.5 - 5.3 mEq/L [facility] Chloride 107 92 - 108 mEq/L [facility] CO2 26 22 - 30 mEq/L [facility] AnGap 9 8 - 16 mEq/L [facility] Glucose 148(H) 70 - 100 mg/dL [facility] BUN 12 8 - 23 mg/dL [facility] Creatinine 0.77 0.50 - 1.00 mg/dL [facility] Calcium 8.7(L) 8.8 - 10.2 mg/dL [facility] eGFR (2020 CKD-EPI) 77 >=60 ml/min/1.7 3m2 [facility] Comment: The estimated glomerular filtration rate (eGFR) was calculated using the CKD-EPI 2020 creatinine equation, which does not include race as a factor. This equation is validated in individuals 18 years of age and older, and eGFR is normalized to a body surface area of 1.73m^2. Blood 11/06/2023 6:31 AM DELIVERY TECHNICIAN 11/06/2023 7:37 AM DELIVERY TECHNICIAN Devin Dougherty MD LABORATORY Performing Organization Address [facility] Co de Phone Number [facility] [address] [address] * PROTHROMBIN (PT) & INR (11/06/2023 6:31 AM DELIVERY TECHNICIAN) Only the most recent of3 resultswithin the time period is included. PT 11.4 9.0 - 12.5 sec [facility] INR 1.0 0.8 - 1.1 [facility] Comment: Warfarin Therapeutic Range: Standard Intensity: 2.0 - 3.0 High Intensity: 2.5 - 3.5 Blood 11/06/2023 6:31 AM DELIVERY TECHNICIAN 11/06/2023 7:37 AM DELIVERY TECHNICIAN Quinn Covarrubias MD LABORATORY Performing Organization Address [facility] Co de Phone Number [facility] [address] [address] * (ABNORMAL) GLYCOSYLATED HGB - A1C (11/06/2023 6:31 AM DELIVERY TECHNICIAN) Hemoglobin A1C 8.1(H) 4.0 - 5.6 % [facility] Comment: Increased risk for diabetes (prediabetes): 5.7-6.4% Diabetes: greater than or equal to 6.5% * * In the absence of unequivocal hyperglycemia, diagnosis requires two abnormal test results (i.e. HbA1c and glucose) or two abnormal results from specimens collected at two different timepoints. Estimated Average Glucose 186(H) 68 - 114 [facility] Comment: The ADA recommends reporting an estimated Average Glucose (eAG) with all hemoglobin A1c results using the equation derived from a study of 501 normal diabetic adults. Minority populations were underrepresented and children were not included. The EAG is not equivalent to a fasting glucose. Blood 11/06/2023 6:31 AM DELIVERY TECHNICIAN 11/06/2023 11:28 AM DELIVERY TECHNICIAN Quinn Covarrubias MD LABORATORY Performing Organization Address City/[facility] Co de Phone Number [address] [address] * (ABNORMAL) POTASSIUM (11/05/2023 4:48 PM DELIVERY TECHNICIAN) Potassium 3.2(L) 3.5 - 5.3 mEq/L [facility] Blood 11/05/2023 4:48 PM DELIVERY TECHNICIAN 11/05/2023 4:58 PM DELIVERY TECHNICIAN Quinn Covarrubias MD LABORATORY Performing Organization Address [facility] Co de Phone Number [address] [address] * CT HEAD NO IV CONTRAST (11/05/2023 11:44 AM DELIVERY TECHNICIAN) Only the most recent of3 resultswithin the time period is included. Anatomical Region Laterality Modality Skull Computed Tomogra phy 11/05/2023 12:1 6 PM DELIVERY TECHNICIAN Impressions 11/05/2023 12:38 PM DELIVERY TECHNICIAN Impression: Stable head CT as compared to the study performed 7 hours earlier. Intra-axial and extra-axial hemorrhage(s) without midline shift or hydrocephalus. The basal cisterns are patent. Reading Radiologist: Ford Fernández 11/05/2023 12:38 PM DELIVERY TECHNICIAN Exam: Head CT without contrast, 11/05/2023 Indication: Follow-up for stability. Comparison: Head CT from approximately 7 hours earlier today. Technique: Thin-section CT images through the brain were obtained from the base of the skull through the vertex without intravenous contrast, reconstructed in axial, coronal, and sagittal planes, and reviewed in brain, bone and subdural windows. Radiation dose: Total DLP = 1198.3 mGy*cm. ?? Findings: No substantial change in appearance of component of hyperdense subdural blood along the right cerebral convexity, cerebral falx, and right greater than left tentorium. A small amount of scattered subarachnoid hemorrhage has not substantially changed. Small foci of intraparenchymal hemorrhage in the left frontal subcortical white matter and in the left lateral periventricular region (along the caudate nucleus) appear unchanged. No convincing new or worsening intracranial hemorrhage. No acute appearing loss of the díaz-white matter differentiation. The ventricles and sulci appear proportional and have not substantially changed in caliber. No shift of midline. The basal cisterns are patent. The bones of the calvaria and skull base are intact. Small focus of polypoid mucosal thickening in the right maxillary sinus; the visualized paranasal sinuses are otherwise clear. Mastoid air cells are clear. Bilateral pseudophakia. Calcific atherosclerosis of the carotid siphons and intradural vertebral arteries. Procedure Note Ford Fernández, DO - 11/05/2023 Exam: Head CT without contrast, 11/05/2023 Indication: Follow-up for stability. Comparison: Head CT from approximately 7 hours earlier today. Technique: Thin-section CT images through the brain were obtained from thebase of the skull through the vertex without intravenous contrast,reconstructed in axial, coronal, and sagittal planes, and reviewed inbrain, bone and subdural windows. Radiation dose: Total DLP = 1198.3 mGy*cm. Findings: No substantial change in appearance of component of hyperdensesubdural blood along the right cerebral convexity, cerebral falx, andright greater than left tentorium. A small amount of scatteredsubarachnoid hemorrhage has not substantially changed. Small foci ofintraparenchymal hemorrhage in the left frontal subcortical white matterand in the left lateral periventricular region (along the caudate nucleus)appear unchanged. No convincing new or worsening intracranial hemorrhage. No acute appearingloss of the díaz-white matter differentiation. The ventricles and sulciappear proportional and have not substantially changed in caliber. Noshift of midline. The basal cisterns are patent. The bones of the calvaria and skull base are intact. Small focus ofpolypoid mucosal thickening in the right maxillary sinus; the visualizedparanasal sinuses are otherwise clear. Mastoid air cells are clear.Bilateral pseudophakia. Calcific atherosclerosis of the carotid siphonsand intradural vertebral arteries. IMPRESSION Impression: Stable head CT as compared to the study performed 7 hours earlier. Intra-axial and extra-axial hemorrhage(s) without midline shift orhydrocephalus. The basal cisterns are patent. Reading Radiologist: Ford Fernández Quinn Covarrubias MD RAD CT NEURO * EKG ADULT (12-LEAD) (11/05/2023 6:38 AM DELIVERY TECHNICIAN) 11/05/2023 6:38 AM DELIVERY TECHNICIAN Impressions [facility] EKG ORDERS - 11/05/2023 6:38 AM DELIVERY TECHNICIAN SINUS RHYTHM RIGHT BUNDLE BRANCH BLOCK ??[120+ ms QRS DURATION, UPRIGHT V1, 40+ ms S IN I/aVL/V4/V5/V6] ABNORMAL ECG P-R Interval 151 ms QRS Interval 128 ms QT Interval 420 ms QTC Interval 462 ms P Gering 9 QRS Gering 27 T Wave Gering 70 Narrative Procedure Note Lauren Mills MD - 11/06/2023 IMPRESSION SINUS RHYTHM RIGHT BUNDLE BRANCH BLOCK [120+ ms QRS DURATION, UPRIGHT V1, 40+ ms S INI/aVL/V4/V5/V6] ABNORMAL ECG P-R Interval 151 ms QRS Interval 128 ms QT Interval 420 ms QTC Interval 462 ms P Gering 9 QRS Gering 27 T Wave Gering 70 Quinn Covarrubias MD EKG [facility] EKG ORDERS * (ABNORMAL) ICU BLOOD GAS (11/05/2023 4:27 AM DELIVERY TECHNICIAN) PH Art 7.38 7.35 - 7.45 [facility] PCO2 Art 42 35 - 45 mmHG [facility] PO2 Art 99(H) 75 - 85 mmHG [facility] Bicarb Art 25 22 - 26 mEq/L [facility] O2 Sat Art 98 96 - 99 % [facility] Base Exc Art 0.0 -10.0 - 2.0 mEq/L [facility] Blood Arterial 11/05/2023 4: 27 AM DELIVERY TECHNICIAN 11/05/2023 4:34 AM DELIVERY TECHNICIAN Devin Dougherty MD LABORATORY Performing Organization Address [facility] Co de Phone Number [facility] [address] [address] * (ABNORMAL) TROP 6H (11/05/2023 4:27 AM DELIVERY TECHNICIAN) 6H Trop 51(H) <=14 ng/L [facility] 6H Delta Significan t(A) Not Significant [facility] Blood 11/05/2023 4:27 AM DELIVERY TECHNICIAN 11/05/2023 4:35 AM DELIVERY TECHNICIAN Devin Dougherty MD LABORATORY Performing Organization Address [facility] Co de Phone Number [facility] [address] [address] * (ABNORMAL) TROP 4H (11/05/2023 2:58 AM DELIVERY TECHNICIAN) 4H Trop 39(H) <=14 ng/L [facility] 4H Delta Significan t(A) Not Significant [facility] Blood 11/05/2023 2:58 AM DELIVERY TECHNICIAN 11/05/2023 3:48 AM DELIVERY TECHNICIAN Devin Dougherty MD LABORATORY Performing Organization Address [facility] Co de Phone Number [facility] [address] [address] * (ABNORMAL) PANEL HEPATIC FUNCTION (11/05/2023 1:32 AM DELIVERY TECHNICIAN) Alk Phos 111(H) 35 - 104 IU/L [facility] Total Protein 6.5 6.4 - 8.3 g/dL [facility] Bili Direct na <=0.3 mg/dL [facility] Comment:Direct Bilirubin = < 0.2. Accuracy of result suspect due to lipemia. Albumin 3.8 3.8 - 5.1 g/dL [facility] Bili Total <0.2 <=1.2 mg/dL [facility] ALT (SGPT) na <=33 [facility] Comment:ALT = 15. Accuracy o f result suspect due to lipemia. AST(SGOT) na 5 - 40 [facility] Comment:AST = 27. Accuracy o f result suspect due to lipemia. Blood 11/05/2023 1:32 AM DELIVERY TECHNICIAN 11/05/2023 1:32 AM DELIVERY TECHNICIAN Devin Dougherty MD LABORATORY Performing Organization Address City/[facility]/ZIP Co de Phone Number [facility] [address] [address] * FIBRINOGEN (11/05/2023 1:32 AM DELIVERY TECHNICIAN) Only the most recent of2 resultswithin the time period is included. Fibrinogen 262 200 - 400 mg/dL [facility] Blood 11/05/2023 1:32 AM DELIVERY TECHNICIAN 11/05/2023 1:32 AM DELIVERY TECHNICIAN Devin Dougherty MD LABORATORY Performing Organization Address [facility] Co de Phone Number [facility] [address] [address] * CK, TOTAL (11/05/2023 1:32 AM DELIVERY TECHNICIAN) CK 56 26 - 192 IU/L [facility] Blood 11/05/2023 1:32 AM DELIVERY TECHNICIAN 11/05/2023 1:32 AM DELIVERY TECHNICIAN Devin Dougherty MD LABORATORY Performing Organization Address [facility] Co de Phone Number [facility] [address] [address] * PTT (APTT) (11/05/2023 1:32 AM DELIVERY TECHNICIAN) Only the most recent of2 resultswithin the time period is included. APTT 26.0 25.0 - 37.0 sec [facility] Blood 11/05/2023 1:32 AM DELIVERY TECHNICIAN 11/05/2023 1:32 AM DELIVERY TECHNICIAN Devin Dougherty MD LABORATORY Performing Organization Address [facility] Co de Phone Number [facility] [address] [address] * (ABNORMAL) TROP 2H (11/05/2023 1:18 AM DELIVERY TECHNICIAN) 2H Trop 18(H) <=14 ng/L [facility] 2H Delta Indeterminate Not Significant [facility] Blood 11/05/2023 1:18 AM DELIVERY TECHNICIAN 11/05/2023 1:45 AM DELIVERY TECHNICIAN Devin Dougherty MD LABORATORY Performing Organization Address [facility] de Phone Number [facility] [address] [address] * LACTATE (LACTIC ACID) (11/05/2023 1:18 AM DELIVERY TECHNICIAN) Only the most recent of2 resultswithin the time period is included. Lactate 1.9 0.7 - 2.1 mmol/L [facility] Blood 11/05/2023 1:18 AM DELIVERY TECHNICIAN 11/05/2023 1:27 AM DELIVERY TECHNICIAN Narrative [facility] - 11/05/2023 1:45 AM DELIVERY TECHNICIAN Send specimen on ice! Devin Dougherty MD LABORATORY Performing Organization Address [facility] [[email or web address]] de Phone Number [facility] [address] [address] * CALCIUM,IONIZED (11/05/2023 1:18 AM DELIVERY TECHNICIAN) PH 7.37 7.32 - 7.42 [facility] ICA, Actual 4.82 4.40 - 5.20 mg/dL [facility] ICA, pH Corrected 4.75 4.40 - 5.20 mg/dL [facility] Blood 11/05/2023 1:18 AM DELIVERY TECHNICIAN 11/05/2023 1:27 AM DELIVERY TECHNICIAN Narrative [facility] - 11/05/2023 1:44 AM DELIVERY TECHNICIAN Send specimen on ice! Devin Dougherty MD LABORATORY [facility] [address] [place] [address] * CT HEAD-NECK - ANGIO - W/IV CON (11/05/2023 12:09 AM DELIVERY TECHNICIAN) Anatomical Region Laterality Modality Skull Computed Tomogra phy 11/05/2023 12:2 1 AM DELIVERY TECHNICIAN Impressions 11/05/2023 10:22 AM DELIVERY TECHNICIAN Impression: ?? Slightly increased size of the subdural hemorrhage along the right cerebral convexity measuring 6 mm, previously 3 mm. Additional foci of hemorrhage appear similar to the earlier CT (performed approximately 1 hour ago). No suspected vascular injury or vascular malformation. Scattered intracranial and extracranial atheromatous changes. I have personally reviewed the image(s) and initial interpretation, and I agree with the findings as documented by the resident/fellow. Reading Radiologist: Ford Fernández Resident: Laith Berkowitz 11/05/2023 10:[address] angiogram of the Head with contrast, CT angiogram of the Neck with contrast, Image postprocessing by the Radiologist; 11/04/2023 Indication: Stroke, hemorrhagic. Comparison: Head CT from earlier the same date. Technique: CTA Head and Neck: ?? CT angiography of the neck and head was performed following contrast injection: Axial thin-section images were obtained (with 1.5 mm slice thickness, 1.0 mm collimation, and 0.5 mm overlap) through the neck and head from the aortic arch to the cranial vertex. ??3D reconstructions and multiplanar 2D image reformations were performed and reviewed by the Radiologist using the [employer] workstation, and these images were archived in the PACS system. Radiation dose: Total DLP = 584.4 mGy*cm. ?? Findings: CT Angiogram Neck: There is an adequate bolus of contrast in the arterial system. Aortic Arch & Great Vessels: Scattered atheromatous changes without significant stenosis. The left common carotid artery arises from the innominate artery, a normal variant. NASCET cervical carotid artery measurements: Right distal internal carotid artery = 5 mm with less than 10% diameter stenosis at the bifurcation/ICA origin. Mild atheromatous changes of the bifurcation and proximal ICA. Left distal internal carotid artery = 5 mm with less than 10% diameter stenosis at the bifurcation/ICA origin. Mild atheromatous changes in the bifurcation and proximal ICA. Right vertebral artery: Patent throughout its course. No significant focal stenosis. Left vertebral artery: ??Patent throughout its course. No significant focal stenosis. CT Angiogram Head: No large vessel occlusion. 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 Additional mild to moderate stenosis of the M1 segment of the right middle cerebral artery. Calcific atherosclerosis of the carotid siphons with mild associated stenoses. No aneurysm. No suspected vascular malformation. Extravascular findings: Increased size of subdural hematoma along the right cerebral convexity measuring up to 6 mm, previously 3 mm. The foci of intraparenchymal hemorrhage appear unchanged. No discernible progression of multifocal subarachnoid hemorrhages. Procedure Note Ford Fernández, DO - 11/05/2023 CT angiogram of the Head with contrast, CT angiogram of the Neck with contrast, Image postprocessing by the Radiologist; 11/04/2023 Indication: Stroke, hemorrhagic. Comparison: Head CT from earlier the same date. Technique: CTA Head and Neck: CT angiography of the neck and head wasperformed following contrast injection: Axial thin-section images wereobtained (with 1.5 mm slice thickness, 1.0 mm collimation, and 0.5 mmoverlap) through the neck and head from the aortic arch to the cranialvertex. 3D reconstructions and multiplanar 2D image reformations wereperformed and reviewed by the Radiologist using the [employer] workstation,and these images were archived in the PACS system. Radiation dose: Total DLP = 584.4 mGy*cm. Findings: CT Angiogram Neck: There is an adequate bolus of contrast in the arterial system. Aortic Arch & Great Vessels: Scattered atheromatous changes withoutsignificant stenosis. The left common carotid artery arises from theinnominate artery, a normal variant. NASCET cervical carotid artery measurements: Right distal internal carotid artery = 5 mm with less than 10% diameterstenosis at the bifurcation/ICA origin. Mild atheromatous changes of thebifurcation and proximal ICA. Left distal internal carotid artery = 5 mm with less than 10% diameterstenosis at the bifurcation/ICA origin. Mild atheromatous changes in thebifurcation and proximal ICA. Right vertebral artery: Patent throughout its course. No significant focalstenosis. Left vertebral artery: Patent throughout its course. No significant focalstenosis. CT Angiogram Head: No large vessel occlusion. Moderate (short to moderate segment) stenosisof the proximal to mid basilar artery. Additional mild to moderatestenosis of the M1 segment of the right middle cerebral artery. Calcificatherosclerosis of the carotid siphons with mild associated stenoses. Noaneurysm. No suspected vascular malformation. Extravascular findings: Increased size of subdural hematoma along the right cerebral convexitymeasuring up to 6 mm, previously 3 mm. The foci of intraparenchymalhemorrhage appear unchanged. No discernible progression of multifocalsubarachnoid hemorrhages. IMPRESSION Impression: Slightly increased size of the subdural hemorrhage along the rightcerebral convexity measuring 6 mm, previously 3 mm. Additional foci ofhemorrhage appear similar to the earlier CT (performed approximately 1hour ago). No suspected vascular injury or vascular malformation. Scatteredintracranial and extracranial atheromatous changes. I have personally reviewed the image(s) and initial interpretation, and Iagree with the findings as documented by the resident/fellow. Reading Radiologist: Ford Fernández Reading Resident: Laith Berkowitz Devin Dougherty MD RAD CT NEURO * (ABNORMAL) URINALYSIS,TOTAL (11/04/2023 11:55 PM DELIVERY TECHNICIAN) Color COLORLESS YELLOW [facility] Appearance CLEAR CLEAR [facility] Urine Glucose 100(A) NEGATIVE mg/dL [facility] Bili UA NEGATIVE NEGATIVE [facility] Ketones NEGATIVE NEGATIVE [facility] Specific [place] 1.036(A) 1.003 - 1.030 [facility] Blood Ur NEGATIVE Neg-Trace [facility] PH Urine 7.5(H) 5.0 - 7.0 [facility] Protein Ur TRACE Neg-Trace [facility] Urobilinogen NORMAL NORMAL EU/dL [facility] Nitrite Ur NEGATIVE NEGATIVE [facility] Leuk Est NEGATIVE Neg-Trace [facility] WBC Ur 0-5 0 - 5 perHPF [facility] RBC Ur 0-3 0 - 3 perHPF [facility] SQ EPITH 0-5 0 - 5 perHPF [facility] Urinalysis Performed at: [facility] Urine 11/04/2023 11:5 5 PM DELIVERY TECHNICIAN 11/05/2023 12:03 AM DELIVERY TECHNICIAN Devin Dougherty MD LABORATORY [facility] [address] [place] [address] * PF INSERT CATH,ART,PERCUT,SHORTTERM (11/04/2023 11:43 PM DELIVERY TECHNICIAN) Narrative Rito Graf MD - 11/04/2023 11:43 PM DELIVERY TECHNICIAN Priscilla Holcomb MD ? 11/04/2023 11:44 PM Arterial Line Performed by: Priscilla Holcomb MD Authorized by: Rito Graf MD ?? Consent: ??Consent obtained: ??Verbal ??Consent given by: ??Patient ??Risks discussed: ??Pain, bleeding and infection Fenton protocol: ??Patient identity confirmed: ??Verbally with patient, arm band and hospital-assigned identification number Indications: ??Indications: hemodynamic monitoring ?? Pre-procedure details: ??Skin preparation: ??Chlorhexidine ??Preparation: Patient was prepped and draped in sterile fashion ?? Sedation: ??Sedation type: ??None Anesthesia: ??Anesthesia method: ??Local infiltration ??Local anesthetic: ??Lidocaine 1% WITH epi Procedure details: ??Location: ??L radial ??Needle gauge: ??20 G ??Placement technique: ??Seldinger and ultrasound guided ??Number of attempts: ??1 ??Transducer: waveform confirmed ?? Post-procedure details: ??Post-procedure: ??Biopatch applied, secured with tape, sterile dressing applied and sutured ??CMS: ??Normal ??Procedure completion: ??Tolerated well, no immediate complications Rito Graf MD PROCEDURES * ED EKG (12-LEAD) (11/04/2023 11:25 PM DELIVERY TECHNICIAN) 11/04/2023 11:2 5 PM DELIVERY TECHNICIAN Impressions [facility] [place] EKG ORDERS - 11/04/2023 11:25 PM DELIVERY TECHNICIAN SINUS TACHYCARDIA RIGHT BUNDLE BRANCH BLOCK ??[120+ ms QRS DURATION, UPRIGHT V1, 40+ ms S IN I/aVL/V4/V5/V6] ABNORMAL ECG P-R Interval 173 ms QRS Interval 127 ms QT Interval 395 ms QTC Interval 458 ms P Gering 57 QRS Gering 34 T Wave Gering 43 Narrative Procedure Note Vineet Díaz MD - 11/05/2023 IMPRESSION SINUS TACHYCARDIA RIGHT BUNDLE BRANCH BLOCK [120+ ms QRS DURATION, UPRIGHT V1, 40+ ms S INI/aVL/V4/V5/V6] ABNORMAL ECG P-R Interval 173 ms QRS Interval 127 ms QT Interval 395 ms QTC Interval 458 ms P Gering 57 QRS Gering 34 T Wave Gering 43 Devin Dougherty MD EKG [facility] [place] [facility] EKG ORDERS * CT SPINE THORACIC NO IV CON (11/04/2023 11:05 PM DELIVERY TECHNICIAN) Anatomical Region Laterality Modality Thoracic Spine Computed Tomogra phy 11/04/2023 11:2 3 PM DELIVERY TECHNICIAN Impressions 11/05/2023 9:22 AM DELIVERY TECHNICIAN Impression: 1. No suspected acute fracture or dislocation of the thoracic or lumbar spine. ?? 2. Kzhv-ry-wacvdrjz lumbar spondylosis without suspected high-grade spinal canal or neural foraminal narrowing. I have personally reviewed the image(s) and initial interpretation, and I agree with the findings as documented by the resident/fellow. Reading Radiologist: Ford Fernández Reading Resident: Laith Berkowitz Narrative 11/05/2023 9:22 AM DELIVERY TECHNICIAN Exam: Thoracic and Lumbar Spine CT Reconstructions, 11/04/2023 Indication: ??Trauma (STAB). Comparison: ??None. Technique: Images of the thoracic and lumbar spine with axial, sagittal and coronal reconstructions were obtained from a CT examination of the chest, abdomen, and pelvis. Images were reviewed in a bone window. This is not additional radiation; these images are reconstructed from the chest/abdomen/pelvis CT. Findings: Please refer to the chest/abdomen/pelvis CT report for the findings on those examinations. Thoracic spine: There are 12 rib-bearing thoracic vertebral bodies. No convincing acute fracture or dislocation. Somewhat atypical angulation of the anterior margin of the vertebral body adjacent to the superior endplate at T4, to a lesser degree at T3, is favored within normal limits and/or chronic. Mild coronal-based curvature. Multilevel disc space narrowing, endplate spurring, and degenerative changes of the facet joints. No significant spinal canal or neural foraminal narrowing. Lumbar spine: There are 5 lumbar-type vertebral bodies. No acute fracture or dislocation. Mild retrolisthesis of L2 on L3 and trace anterior spondylolisthesis of L4 over L5 and of L5 over S1. Multilevel disc space narrowing and vacuum disc phenomena, which is most pronounced at L1-2, L2-3 and L5-S1. Multilevel degenerative changes of the facet joints. Degenerative changes of the spinous processes from L2 through L5. The findings on a level by level basis are as follows: L1-2: No spinal canal or neural foraminal narrowing. L2-3: Mild spinal canal and bilateral neural foraminal narrowing. L3-4: No convincing spinal canal or neural foraminal narrowing. L4-5: At least mild spinal canal narrowing. Mild bilateral neural foraminal narrowing. L5-S1: Moderate right and mild left neural foraminal narrowing. Mild thecal sac narrowing. Procedure Note Ford Fernández, DO - 11/05/2023 Exam: Thoracic and Lumbar Spine CT Reconstructions, 11/04/2023 Indication: Trauma (STAB). Comparison: None. Technique: Images of the thoracic and lumbar spine with axial, sagittaland coronal reconstructions were obtained from a CT examination of thechest, abdomen, and pelvis. Images were reviewed in a bone window. This isnot additional radiation; these images are reconstructed from thechest/abdomen/pelvis CT. Findings: Please refer to the chest/abdomen/pelvis CT report for the findings onthose examinations. Thoracic spine: There are 12 rib-bearing thoracic vertebral bodies. No convincing acutefracture or dislocation. Somewhat atypical angulation of the anteriormargin of the vertebral body adjacent to the superior endplate at T4, to alesser degree at T3, is favored within normal limits and/or chronic. Mildcoronal-based curvature. Multilevel disc space narrowing, endplatespurring, and degenerative changes of the facet joints. No significantspinal canal or neural foraminal narrowing. Lumbar spine: There are 5 lumbar-type vertebral bodies. No acute fracture ordislocation. Mild retrolisthesis of L2 on L3 and trace anteriorspondylolisthesis of L4 over L5 and of L5 over S1. Multilevel disc spacenarrowing and vacuum disc phenomena, which is most pronounced at L1-2,L2-3 and L5-S1. Multilevel degenerative changes of the facet joints.Degenerative changes of the spinous processes from L2 through L5. The findings on a level by level basis are as follows: L1-2: No spinal canal or neural foraminal narrowing. L2-3: Mild spinal canal and bilateral neural foraminal narrowing. L3-4: No convincing spinal canal or neural foraminal narrowing. L4-5: At least mild spinal canal narrowing. Mild bilateral neuralforaminal narrowing. L5-S1: Moderate right and mild left neural foraminal narrowing. Mildthecal sac narrowing. IMPRESSION Impression: 1. No suspected acute fracture or dislocation of the thoracic or lumbarspine. 2. Sile-jp-wlhewsmd lumbar spondylosis without suspected high-grade spinalcanal or neural foraminal narrowing. I have personally reviewed the image(s) and initial interpretation, and Iagree with the findings as documented by the resident/fellow. Reading Radiologist: Ford Fernández Resident: Laith Berkowitz Devin Dougherty MD RAD CT NEURO * CT SPINE LUMBAR NO IV CON (11/04/2023 11:05 PM DELIVERY TECHNICIAN) Anatomical Region Laterality Modality Lumbar Spine Computed Tomogra phy 11/04/2023 11:2 3 PM DELIVERY TECHNICIAN Impressions 11/05/2023 9:22 AM DELIVERY TECHNICIAN Impression: 1. No suspected acute fracture or dislocation of the thoracic or lumbar spine. ?? 2. Tlhm-je-tcvfmgrz lumbar spondylosis without suspected high-grade spinal canal or neural foraminal narrowing. I have personally reviewed the image(s) and initial interpretation, and I agree with the findings as documented by the resident/fellow. Reading Radiologist: Ford Fernández Resident: Laith Berkowitz Narrative 11/05/2023 9:22 AM DELIVERY TECHNICIAN Exam: Thoracic and Lumbar Spine CT Reconstructions, 11/04/2023 Indication: ??Trauma (STAB). Comparison: ??None. Technique: Images of the thoracic and lumbar spine with axial, sagittal and coronal reconstructions were obtained from a CT examination of the chest, abdomen, and pelvis. Images were reviewed in a bone window. This is not additional radiation; these images are reconstructed from the chest/abdomen/pelvis CT. Findings: Please refer to the chest/abdomen/pelvis CT report for the findings on those examinations. Thoracic spine: There are 12 rib-bearing thoracic vertebral bodies. No convincing acute fracture or dislocation. Somewhat atypical angulation of the anterior margin of the vertebral body adjacent to the superior endplate at T4, to a lesser degree at T3, is favored within normal limits and/or chronic. Mild coronal-based curvature. Multilevel disc space narrowing, endplate spurring, and degenerative changes of the facet joints. No significant spinal canal or neural foraminal narrowing. Lumbar spine: There are 5 lumbar-type vertebral bodies. No acute fracture or dislocation. Mild retrolisthesis of L2 on L3 and trace anterior spondylolisthesis of L4 over L5 and of L5 over S1. Multilevel disc space narrowing and vacuum disc phenomena, which is most pronounced at L1-2, L2-3 and L5-S1. Multilevel degenerative changes of the facet joints. Degenerative changes of the spinous processes from L2 through L5. The findings on a level by level basis are as follows: L1-2: No spinal canal or neural foraminal narrowing. L2-3: Mild spinal canal and bilateral neural foraminal narrowing. L3-4: No convincing spinal canal or neural foraminal narrowing. L4-5: At least mild spinal canal narrowing. Mild bilateral neural foraminal narrowing. L5-S1: Moderate right and mild left neural foraminal narrowing. Mild thecal sac narrowing. Procedure Note Ford Fernández, DO - 11/05/2023 Exam: Thoracic and Lumbar Spine CT Reconstructions, 11/04/2023 Indication: Trauma (STAB). Comparison: None. Technique: Images of the thoracic and lumbar spine with axial, sagittaland coronal reconstructions were obtained from a CT examination of thechest, abdomen, and pelvis. Images were reviewed in a bone window. This isnot additional radiation; these images are reconstructed from thechest/abdomen/pelvis CT. Findings: Please refer to the chest/abdomen/pelvis CT report for the findings onthose examinations. Thoracic spine: There are 12 rib-bearing thoracic vertebral bodies. No convincing acutefracture or dislocation. Somewhat atypical angulation of the anteriormargin of the vertebral body adjacent to the superior endplate at T4, to alesser degree at T3, is favored within normal limits and/or chronic. Mildcoronal-based curvature. Multilevel disc space narrowing, endplatespurring, and degenerative changes of the facet joints. No significantspinal canal or neural foraminal narrowing. Lumbar spine: There are 5 lumbar-type vertebral bodies. No acute fracture ordislocation. Mild retrolisthesis of L2 on L3 and trace anteriorspondylolisthesis of L4 over L5 and of L5 over S1. Multilevel disc spacenarrowing and vacuum disc phenomena, which is most pronounced at L1-2,L2-3 and L5-S1. Multilevel degenerative changes of the facet joints.Degenerative changes of the spinous processes from L2 through L5. The findings on a level by level basis are as follows: L1-2: No spinal canal or neural foraminal narrowing. L2-3: Mild spinal canal and bilateral neural foraminal narrowing. L3-4: No convincing spinal canal or neural foraminal narrowing. L4-5: At least mild spinal canal narrowing. Mild bilateral neuralforaminal narrowing. L5-S1: Moderate right and mild left neural foraminal narrowing. Mildthecal sac narrowing. IMPRESSION Impression: 1. No suspected acute fracture or dislocation of the thoracic or lumbarspine. 2. Dhti-sm-kzftdasq lumbar spondylosis without suspected high-grade spinalcanal or neural foraminal narrowing. I have personally reviewed the image(s) and initial interpretation, and Iagree with the findings as documented by the resident/fellow. Reading Radiologist: Ford Fernández Reading Resident: Laith Berkowitz Devin Dougherty MD RAD CT NEURO * CT SPINE CERVICAL NO IV CON (11/04/2023 11:05 PM DELIVERY TECHNICIAN) Anatomical Region Laterality Modality Cervical Spine Computed Tomogra phy 11/04/2023 11:2 0 PM DELIVERY TECHNICIAN Impressions 11/05/2023 8:27 AM DELIVERY TECHNICIAN Impression: ?? 1. No acute fracture or traumatic subluxation of the cervical vertebrae. 2. Mild degenerative changes of the cervical spine without high-grade spinal canal or neural foraminal narrowing. I have personally reviewed the image(s) and initial interpretation, and I agree with the findings as documented by the resident/fellow. Reading Radiologist: Ford Fernández Reading Resident: Laith Berkowitz 11/05/2023 8:27 AM DELIVERY TECHNICIAN Exam: Cervical spine CT without contrast, 11/04/2023 Indication: Trauma. Comparison: None. Technique: Using multidetector thin collimation helical acquisition technique, axial, coronal and sagittal reconstructed CT images were obtained through the cervical spine without intravenous contrast. Images were reviewed in bone and soft tissue windows. Radiation dose: Total DLP = 100 mGy*cm. ?? Findings: ??No acute fracture, abnormal prevertebral soft tissue swelling, or suspected traumatic malalignment. Presumed degenerative anterior spondylolisthesis of C3 over C4 through C6 over C7. Mild to moderate disc space narrowing at C6-7, moderate at C5-6. Multilevel endplate spurring, discal mineralization, uncovertebral vertebral spurring, and degenerative (and/or arthropathic) changes of the facet joints. There is ligamentous calcification about the atlantodental articulation; atlantodental degenerative and/or arthropathic change. The findings on a level bilevel basis are as follows: C2-3: Mild right neural foraminal narrowing. No spinal canal or left neural foraminal narrowing. C3-4: Mild left neural foraminal narrowing. No spinal canal or right neural foraminal narrowing. C4-5: Minimal bilateral neural foraminal narrowing, greater on the right. Borderline mild spinal canal narrowing. C5-6: Mild left and ppnd-et-bhoxfdqv right neural foraminal narrowing. Borderline mild spinal canal narrowing. C6-7: Mild bilateral neural foraminal narrowing. No convincing spinal canal narrowing. C7-T1: Mild bilateral neural foraminal narrowing. Borderline mild spinal canal narrowing. No abnormality of the visualized paraspinous tissues. Scattered calcific atherosclerosis. Procedure Note Ford Fernández DO - 11/05/2023 Exam: Cervical spine CT without contrast, 11/04/2023 Indication: Trauma. Comparison: None. Technique: Using multidetector thin collimation helical acquisitiontechnique, axial, coronal and sagittal reconstructed CT images wereobtained through the cervical spine without intravenous contrast. Imageswere reviewed in bone and soft tissue windows. Radiation dose: Total DLP = 100 mGy*cm. Findings: No acute fracture, abnormal prevertebral soft tissue swelling,or suspected traumatic malalignment. Presumed degenerative anteriorspondylolisthesis of C3 over C4 through C6 over C7. Mild to moderate discspace narrowing at C6-7, moderate at C5-6. Multilevel endplate spurring,discal mineralization, uncovertebral vertebral spurring, and degenerative(and/or arthropathic) changes of the facet joints. There is ligamentouscalcification about the atlantodental articulation; atlantodentaldegenerative and/or arthropathic change. The findings on a level bilevel basis are as follows: C2-3: Mild right neural foraminal narrowing. No spinal canal or leftneural foraminal narrowing. C3-4: Mild left neural foraminal narrowing. No spinal canal or rightneural foraminal narrowing. C4-5: Minimal bilateral neural foraminal narrowing, greater on the right.Borderline mild spinal canal narrowing. C5-6: Mild left and rrsm-yy-vbybnypx right neural foraminal narrowing.Borderline mild spinal canal narrowing. C6-7: Mild bilateral neural foraminal narrowing. No convincing spinalcanal narrowing. C7-T1: Mild bilateral neural foraminal narrowing. Borderline mild spinalcanal narrowing. No abnormality of the visualized paraspinous tissues. Scattered calcificatherosclerosis. IMPRESSION Impression: 1. No acute fracture or traumatic subluxation of the cervical vertebrae. 2. Mild degenerative changes of the cervical spine without high-gradespinal canal or neural foraminal narrowing. I have personally reviewed the image(s) and initial interpretation, and Iagree with the findings as documented by the resident/fellow. Reading Radiologist: Ford Fernández Reading Resident: Laith Berkowitz Devin Dougherty MD RAD CT NEURO * CT CHEST/ABD/PELVIS W/IV CONT (11/04/2023 11:05 PM DELIVERY TECHNICIAN) Anatomical Region Laterality Modality Chest Computed Tomogra phy 11/04/2023 11:2 9 PM DELIVERY TECHNICIAN Impressions 11/05/2023 6:33 AM DELIVERY TECHNICIAN Impression: 1. No acute traumatic sequelae in the chest, abdomen or pelvis. 2. Several sub-5 mm pulmonary nodules are noted. If considered high risk, can consider additional follow-up CT in 12 months to document stability. 3. Colonic diverticulosis without evidence of acute diverticulitis. I have personally reviewed the image(s) and initial interpretation, and I agree with the findings as documented by the resident/fellow. Reading Radiologist: Scott Porras Reading Resident: Laith Berkowitz 11/05/2023 6:33 AM DELIVERY TECHNICIAN Comparison: None Indication: Trauma (STAB) ?? Technique: Volumetric helical acquisition of CT images from the lung apices through the symphysis pubis after the administration of intravenous contrast. DOSE: ?Total DLP = 495 mGy.cm. ?? Findings: Thyroid: Within normal limits. Chest: ?? Lungs:Several sub-5 mm pulmonary nodules including a 3 mm nodule of the left lung base (series 203, image 60). No focal infiltrate. Dependent atelectasis. Airway: Patent Pleura: No pleural effusion or pneumothorax. Mediastinal structures: Heart size is within normal limits. Aorta and pulmonary artery are normal caliber. Lymph nodes: No enlarged thoracic lymph nodes Abdomen/Pelvis: ?? Abdominal viscera: Liver: Within normal limits Gallbladder and biliary tree: Cholecystectomy. No intra- or extrahepatic biliary ductal dilation. Pancreas: Within normal limits. Spleen: Within normal limits Adrenals: Within normal limits. Kidneys, ureters and bladder: Within normal limits. Reproductive organs: No pelvic masses Bowel and peritoneum: Colonic diverticulosis. Normal caliber small bowel and large bowel. No ascites or free air. No other fluid collection. Lymph nodes: No enlarged lymph nodes Vessels: Aorta and major branches are patent without aneurysm or significant stenosis. Mild saccular enlargement of the infrarenal abdominal aorta measuring up to 2.0 cm (series 201, image 105), which is nonaneurysmal by size criteria. Portal vein and superior mesenteric vein are patent. Mild atherosclerotic disease. Skeletal structures: No acute or suspicious lesions. Soft tissues: Left axillary surgical clips. Probable mastectomy changes on the left. Procedure Note Scott Porras MD - 11/05/2023 Comparison: None Indication: Trauma (STAB) Technique: Volumetric helical acquisition of CT images from the lungapices through the symphysis pubis after the administration of intravenouscontrast. DOSE: Total DLP = 495 mGy.cm. Findings: Thyroid: Within normal limits. Chest: Lungs:Several sub-5 mm pulmonary nodules including a 3 mm nodule of theleft lung base (series 203, image 60). No focal infiltrate. Dependentatelectasis. Airway: Patent Pleura: No pleural effusion or pneumothorax. Mediastinal structures: Heart size is within normal limits. Aorta andpulmonary artery are normal caliber. Lymph nodes: No enlarged thoracic lymph nodes Abdomen/Pelvis: Abdominal viscera: Liver: Within normal limits Gallbladder and biliary tree: Cholecystectomy. No intra- or extrahepaticbiliary ductal dilation. Pancreas: Within normal limits. Spleen: Within normal limits Adrenals: Within normal limits. Kidneys, ureters and bladder: Within normal limits. Reproductive organs: No pelvic masses Bowel and peritoneum: Colonic diverticulosis. Normal caliber small boweland large bowel. No ascites or free air. No other fluid collection. Lymph nodes: No enlarged lymph nodes Vessels: Aorta and major branches are patent without aneurysm orsignificant stenosis. Mild saccular enlargement of the infrarenalabdominal aorta measuring up to 2.0 cm (series 201, image 105), which isnonaneurysmal by size criteria. Portal vein and superior mesenteric veinare patent. Mild atherosclerotic disease. Skeletal structures: No acute or suspicious lesions. Soft tissues: Left axillary surgical clips. Probable mastectomy changes onthe left. IMPRESSION Impression: 1. No acute traumatic sequelae in the chest, abdomen or pelvis. 2. Several sub-5 mm pulmonary nodules are noted. If considered high risk,can consider additional follow-up CT in 12 months to document stability. 3. Colonic diverticulosis without evidence of acute diverticulitis. I have personally reviewed the image(s) and initial interpretation, and Iagree with the findings as documented by the resident/fellow. Reading Radiologist: Scott Porras Reading Resident: Laith Berkowitz Devin Dougherty MD RAD CT BODY * (ABNORMAL) ED CHEMISTRY LABS(NA,K,CL,CO2,GLU,CREAT,CA-IONIZED,ANION GAP) (11/04/2023 10:48 PM DELIVERY TECHNICIAN) Sodium 144 135 - 148 mEq/L [facility] Chloride 106 92 - 108 mEq/L [facility] AnGap 11 8 - 16 mEq/L [facility] Glucose 234(H) 70 - 100 mg/dL [facility] ICA, Actual 4.52 4.40 - 5.20 mg/dL [facility] ICA, pH Corrected 4.51 4.40 - 5.20 mg/dL [facility] Creatinine 0.81 0.50 - 1.00 mg/dL [facility] BICARB 27(H) 22 - 26 mEq/L [facility] eGFR (2020 CKD-EPI) 73 >=60 ml/min/1.7 3m2 [facility] Comment: The estimated glomerular filtration rate (eGFR) was calculated using the CKD-EPI 2020 creatinine equation, which does not include race as a factor. This equation is validated in individuals 18 years of age and older, and eGFR is normalized to a body surface area of 1.73m^2. Potassium 2.8(AA) 3.5 - 5.3 mEq/L [facility] Comment:Critcal Result Low Blood 11/04/2023 10:4 8 PM DELIVERY TECHNICIAN 11/04/2023 10:49 PM DELIVERY TECHNICIAN Narrative [facility] - 11/04/2023 10:55 PM DELIVERY TECHNICIAN Critical value for Potassium called to and read back by Rafa Hutchins RN in ??EDSTAB 2 at 11/04/2023 22:55:31 DELIVERY TECHNICIAN by Eleni Spring MLS. Devin Dougherty MD LABORATORY Performing Organization Address [place]/[facility] Co de Phone Number [address] [address] * (ABNORMAL) ED HEMOGLOBIN TOTAL (ED ONLY) (11/04/2023 10:48 PM DELIVERY TECHNICIAN) Hgb 10.3(L) 11.5 - 15.7 g/dL [facility] Blood 11/04/2023 10:4 8 PM DELIVERY TECHNICIAN 11/04/2023 10:49 PM DELIVERY TECHNICIAN Devin Dougherty MD LABORATORY Performing Organization Address [facility] Co de Phone Number [address] [address] * ED INR (11/04/2023 10:45 PM DELIVERY TECHNICIAN) ED INR 1.0 0.8 - 1.1 [facility] Comment: Warfarin Therapeutic Range: Standard Intensity: 2.0 - 3.0 High Intensity: 2.5 - 3.5 Blood 11/04/2023 10:4 5 PM DELIVERY TECHNICIAN 11/04/2023 10:48 PM DELIVERY TECHNICIAN Devin Dougherty MD LABORATORY Performing Organization Address [facility] Co de Phone Number [facility] [address] [address] * EXTRA TUBE - LIGHT GREEN (11/04/2023 10:45 PM DELIVERY TECHNICIAN) LIGHT GREEN TUBE Stored [facility] Comment:Green tubes ([place] Heparin) are stored in the lab for 3 days from the collection date. Blood 11/04/2023 10:4 5 PM DELIVERY TECHNICIAN 11/04/2023 10:50 PM DELIVERY TECHNICIAN Devin Dougherty MD LABORATORY Performing Organization Address [facility] Co de Phone Number [facility] [address] [address] * EXTRA TUBE - SST (11/04/2023 10:45 PM DELIVERY TECHNICIAN) SST TUBE Stored [facility] Comment:SST tubes (Serum Sep arator) are stored in the lab for 3 days from the collection date. Blood 11/04/2023 10:4 5 PM DELIVERY TECHNICIAN 11/04/2023 10:50 PM DELIVERY TECHNICIAN Devin Dougherty MD LABORATORY Performing Organization Address [facility] Co de Phone Number [facility] [address] [address] * HS TROPONIN (11/04/2023 10:45 PM DELIVERY TECHNICIAN) HS Troponin I 10 <=14 ng/L [facility] Blood 11/04/2023 10:4 5 PM DELIVERY TECHNICIAN 11/04/2023 11:05 PM DELIVERY TECHNICIAN Narrative [facility] - 11/04/2023 11:36 PM DELIVERY TECHNICIAN First Occurrence of the Troponin order is to be drawn Stat by Nursing staff on the unit. Devin Dougherty MD LABORATORY [facility] [address] [address] * (ABNORMAL) CBC WITH PLTS/AUTO DIFF (11/04/2023 10:45 PM DELIVERY TECHNICIAN) WBC 9.42 4.00 - 10.00 k/cmm [facility] RBC 3.86(L) 3.90 - 5.20 m/cmm [facility] Hgb 9.8(L) 11.5 - 15.7 g/dL [facility] Hematocrit 31.8(L) 34.0 - 45.0 % [facility] MCV 82.4 80.0 - 100.0 fL [facility] MCH 25.4 25.0 - 32.0 pg [facility] MCHC 30.8(L) 31.0 - 36.0 g/dL [facility] RDW 15.3(H) 11.5 - 14.5 % [facility] Plt 292 150 - 400 k/cmm [facility] MPV 11.1 6.5 - 12.5 fL [facility] Automated Abs Neutrophil 5.80 1.70 - 6.50 k/cmm [facility] Comment:Preliminary ANC, Fin al Result to Follow Abs Immature Granulocyte 0.07 0.00 - 0.09 k/cmm [facility] Comment:The Immature Granulo cyte Absolute count contains metamyelocytes and myelocytes. Abs Neutrophil 5.80 1.70 - 6.50 k/cmm [facility] Abs Lymphocyte 2.33 0.80 - 4.00 k/cmm [facility] Abs Monocyte 0.88 0.20 - 1.00 k/cmm [facility] Abs Eosinophil 0.27 0.00 - 0.60 k/cmm [facility] Abs Basophil 0.07 0.00 - 0.20 k/cmm [facility] Blood 11/04/2023 10:4 5 PM DELIVERY TECHNICIAN 11/04/2023 11:05 PM DELIVERY TECHNICIAN Devin Dougherty MD LABORATORY [facility] [address] [address] * PRECAUTIONARY TUBE (11/04/2023 10:45 PM DELIVERY TECHNICIAN) Prec Tube Precautionary Blood Bank Specimen Received. [facility] Blood 11/04/2023 10:4 5 PM DELIVERY TECHNICIAN 11/04/2023 10:52 PM DELIVERY TECHNICIAN Devin Dougherty MD LAB TRANSFUSION SER VICES Performing Organization Address [facility] Co de Phone Number [address] [address] * (ABNORMAL) ANTI XA HEPARIN UNFRACTIONATED (11/04/2023 10:45 PM DELIVERY TECHNICIAN) Anti XA Hep U <0.04(L) 0.30 - 0.70 IU/mL [facility] Blood 11/04/2023 10:4 5 PM DELIVERY TECHNICIAN 11/04/2023 11:05 PM DELIVERY TECHNICIAN Devin Dougherty MD LABORATORY Performing Organization Address [facility] Co de Phone Number [address] [address] * ED US CRITICAL CARE (11/04/2023 10:40 PM DELIVERY TECHNICIAN) Anatomical Region Laterality Modality Ultrasound Narrative 11/04/2023 11:28 PM DELIVERY TECHNICIAN ED Trauma eFAST Ultrasound Indications: Suspicion of Abdomen Fluid/Blood, Suspicion of Pneumothorax/Hemothorax, and Other general symptoms and signs Window: Cardiac Window, Heptorenal Window, Perisplenic Window, Pelvic Window, and Thoracic Window Findings: possible pericardial effusion vs anterior fat padNo Pericardial Effusion identified, No Free Intraperitoneal Fluid identified, No Pleural Effusion identified, and Lung Sliding Present Bilaterally Impression: No Pericardial Effusion identified, No Free Intraperitoneal Fluid identified, No Pleural Effusion identified, and No Pneumothorax Identified Devin Dougherty MD, 11/04/2023 11:28 PM Devin Dougherty MD RAD ED ULT from Last 3 Months or Most Recently Relevant to Health Maintenance Advance Directives For more information, please contact: [phone] Latest Code Status on File Code Status Date Activated Date Inactivated Comments Full Code 11/05/2023 1:19 AM 11/16/2023 12:21 PM Question Answer Comments Does the Patient have prefer ences regarding life sustaining measures (these options only apply when the patient has a pulse): Yes Patient will accept intubati on for respiratory deterioration: Yes Patient will accept BiPAP fo r respiratory deterioration: Yes Patient will accept vasopres sors for hypotension: Yes Patient will accept cardiove rsion for unstable rhythm: Yes Discussed Code Status With Whom? Patient Care Teams Tow Feeder Relationship Specialty Start Date End Date Eloise Reeves DO [address] [place] [address] PCP - General Family Medicine 11/06/23
--- OUTSIDE RECORDS SUMMARY | 2023-12-10 00:54 | XMS_ITS | Clinical Summary ---
Author Name Unknown Organization [employer] Address [address] [place] [phone] Phone Care Team Providers Care Entry Level Management Name Role Phone Jacklyn Reevesher Sushil BUSBY Primary Care Provider Source Comments [employer] is fully rolled out on [employer]. Last update 04/02/09.[employer] Allergies Active Allergy Reactions Criticality Noted Date [...] Date Diagnosed Date Fall, initial encounter 11/04/2023 Encounters Date Type Department Care Team Description 11/27/2023 1:00 PM ACCOUNT COLLECTOR [facility] [address] [place] [address] [phone] Leidy Velazquez PA-C Mild traumatic brain injury, with loss of consciousness of 30 minutes or less, initial encounter (CMS) (Primary Dx); Reversed sleep wake cycle; Lack of appetite Discharge Disposition: Discharged to home or self care (routine discharge) 11/09/2023 Orders Only Unspecified Department [place] Unknown, [...] Only Unspecified Department [place] Unknown, Provider 11/04/2023 10:39 PM ACCOUNT COLLECTOR - 11/16/2023 9:19 AM ACCOUNT COLLECTOR [place] [facility] [place]Kimmie ro [address] [place] [address] Devin Dougherty MD Petrun, Branden, MD Lumbard, Derek C, MD Fall, initial encounter Discharge Disposition: Discharged/transd to SNF with Medicare certification 11/04/2023 Travel from Last 3 Months Social History Tobacco Use Types Packs/Day Years [...] Comments Blood Pressure 108/71 11/27/2023 12:54 PM ACCOUNT COLLECTOR Pulse 74 11/27/2023 12:54 PM ACCOUNT COLLECTOR Temperature 36.6 ??C (97.8 ??F) 11/16/2023 4:25 AM CS T Respiratory Rate 16 11/16/2023 4:25 AM ACCOUNT COLLECTOR Oxygen Saturation 90% 11/16/2023 4:25 AM ACCOUNT COLLECTOR Inhaled Oxygen Concentration - - Weight 61.6 kg (135 lb 12.8 oz) 024 12:54 PM ACCOUNT COLLECTOR Height 147.3 cm (4' 10) 11/05/2023 12: 03 AM ACCOUNT COLLECTOR Body Mass Index 28.38 11/05/2023 12:03 AM ACCOUNT COLLECTOR Plan of Treatment Health Maintenance Due Date Last Done Comments Dental Oral Exam 1942 Dental Prophylaxis 1942 Dental X-Ray: Bitewings 1942 Depression Management 1942 Diabetic Education Protocol (CDE) 1943 Diabetic Education 1943 Diabetic Eye Exam 1943 Diabetic Foot Exam 1943 Diabetic Lab Protocol 1943 Diabetic Microalbumin Screening 1943 Periodontal Maintenance 01/05/1956 PREVENTATIVE VISIT 01/05/1960 TD/TDAP ADULTS 01/05/1960 HEALTH MAINTENANCE PROTOCOL 1961 Osteoporosis Screening (Dexa Scan) 2007 Medicare Annual Wellness 01/27/2022 01/27/2021 INFLUENZA VACCINE 05/29/2023 COVID-19 Vaccine ( season) 2023 Diabetic HGB A1C Q 3 Months (Goal <7) 02/05/2024 11/06/2023, 09/12/2023, 09/12/2023, Additional history exists Lipid Screening 10/10/2026 10/10/2021, 04/0 10/2020, 04/19/2020 PNEUMOCOCCAL IMMUNIZATION > 65 YRS Completed 11/23/2007 HIB Aged Out No longer eligi ble based on patient's age to complete this topic Hepatitis B Vaccines Aged Out No long er eligible based on patient's age to complete this topic RSV Infant Immunoglobulin Aged Out No longer eligible based on patient's age to complete this topic Procedures Procedure Name Priority Date/Time Associated Diagnosis Comments PANEL BASIC METABOLIC (BMP) Routine 11/16/2023 7:22 AM ACCOUNT COLLECTOR POC GLUCOSE Routine 11/16/2023 6:58 AM ACCOUNT COLLECTOR POC GLUCOSE Routine 11/15/2023 9:15 PM ACCOUNT COLLECTOR POC GLUCOSE Routine 11/15/2023 4:09 PM ACCOUNT COLLECTOR POC GLUCOSE Routine 11/15/2023 12:46 PM ACCOUNT COLLECTOR PANEL BASIC METABOLIC (BMP) Routine 11/15/2023 7:39 AM ACCOUNT COLLECTOR POC GLUCOSE Routine 11/15/2023 6:11 AM ACCOUNT COLLECTOR POC GLUCOSE Routine 11/14/2023 9:02 PM ACCOUNT COLLECTOR POC GLUCOSE Routine 11/14/2023 4:21 PM ACCOUNT COLLECTOR POC GLUCOSE Routine 11/14/2023 12:19 PM ACCOUNT COLLECTOR PANEL BASIC METABOLIC (BMP) Routine 11/14/2023 8:59 AM ACCOUNT COLLECTOR POC GLUCOSE Routine 11/14/2023 8:11 AM ACCOUNT COLLECTOR POC GLUCOSE Routine 11/13/2023 9:15 PM ACCOUNT COLLECTOR POC GLUCOSE Routine 11/13/2023 4:03 PM ACCOUNT COLLECTOR POC GLUCOSE Routine 11/13/2023 11:21 AM ACCOUNT COLLECTOR PANEL BASIC METABOLIC (BMP) Routine 11/13/2023 6:41 AM ACCOUNT COLLECTOR POC GLUCOSE Routine 11/13/2023 6:31 AM ACCOUNT COLLECTOR POC GLUCOSE Routine 11/12/2023 9:21 PM ACCOUNT COLLECTOR POC GLUCOSE Routine 11/12/2023 4:12 PM ACCOUNT COLLECTOR PANEL BASIC METABOLIC (BMP) Timed 11/12/2023 1:01 PM ACCOUNT COLLECTOR POC GLUCOSE Routine 11/12/2023 12:14 PM ACCOUNT COLLECTOR POC GLUCOSE Routine 11/12/2023 6:09 AM ACCOUNT COLLECTOR POC GLUCOSE Routine 11/11/2023 8:48 PM ACCOUNT COLLECTOR POC GLUCOSE Routine 11/11/2023 4:11 PM ACCOUNT COLLECTOR POC GLUCOSE Routine 11/11/2023 11:47 AM ACCOUNT COLLECTOR PHOSPHORUS Routine 11/11/2023 6:09 AM ACCOUNT COLLECTOR PANEL BASIC METABOLIC (BMP) Routine 11/11/2023 6:09 AM ACCOUNT COLLECTOR MAGNESIUM Routine 11/11/2023 6:09 AM ACCOUNT COLLECTOR TC LAB BLOOD DRAW BY VENIPUNCTURE Routine 11/11/2023 6:09 AM ACCOUNT COLLECTOR POC GLUCOSE Routine 11/10/2023 8:58 PM ACCOUNT COLLECTOR POC GLUCOSE Routine 11/10/2023 4:16 PM ACCOUNT COLLECTOR POC GLUCOSE Routine 11/10/2023 11:15 AM ACCOUNT COLLECTOR PHOSPHORUS Routine 11/10/2023 6:17 AM ACCOUNT COLLECTOR PANEL BASIC METABOLIC (BMP) Routine 11/10/2023 6:17 AM ACCOUNT COLLECTOR MAGNESIUM Routine 11/10/2023 6:17 AM ACCOUNT COLLECTOR PC LAB CBC/PLT Routine 11/10/2023 6:17 AM ACCOUNT COLLECTOR POC GLUCOSE Routine 11/09/2023 9:41 PM ACCOUNT COLLECTOR POC GLUCOSE Routine 11/09/2023 3:58 PM ACCOUNT COLLECTOR ANTI XA ASSAY LMW HEPARIN Timed 11/09/2023 2:18 PM ACCOUNT COLLECTOR POC GLUCOSE Routine 11/09/2023 11:28 AM ACCOUNT COLLECTOR XR FOOT RIGHT 3 V AP/OBL/LAT* Routine 11/09/2023 10:36 AM ACCOUNT COLLECTOR TELEMETRY STRIPS 11/09/2023 8:48 AM ACCOUNT COLLECTOR POC GLUCOSE Routine 11/09/2023 5:46 AM ACCOUNT COLLECTOR PC VALPROIC ACID LEVEL DEPAHOTE Routine 11/09/2023 5:41 AM ACCOUNT COLLECTOR PHOSPHORUS Routine 11/09/2023 5:41 AM ACCOUNT COLLECTOR PANEL BASIC METABOLIC (BMP) Routine 11/09/2023 5:41 AM ACCOUNT COLLECTOR MAGNESIUM Routine 11/09/2023 5:41 AM ACCOUNT COLLECTOR PC LAB CBC/PLT Routine 11/09/2023 5:41 AM ACCOUNT COLLECTOR TELEMETRY STRIPS 11/09/2023 1:21 AM ACCOUNT COLLECTOR POC GLUCOSE Routine 11/08/2023 8:40 PM ACCOUNT COLLECTOR TELEMETRY STRIPS 11/08/2023 7:31 PM ACCOUNT COLLECTOR PHOSPHORUS Routine 11/08/2023 4:20 PM ACCOUNT COLLECTOR MAGNESIUM Routine 11/08/2023 4:20 PM ACCOUNT COLLECTOR PANEL BASIC METABOLIC (BMP) Routine 11/08/2023 4:20 PM ACCOUNT COLLECTOR TC LAB BLOOD DRAW BY VENIPUNCTURE Routine 11/08/2023 4:20 PM ACCOUNT COLLECTOR POC GLUCOSE Routine 11/08/2023 3:56 PM ACCOUNT COLLECTOR POC GLUCOSE Routine 11/08/2023 11:03 AM ACCOUNT COLLECTOR TELEMETRY STRIPS 11/08/2023 9:49 AM ACCOUNT COLLECTOR XR CHEST 1 VIEW AP OR PA* Routine 11/08/2023 6:30 AM ACCOUNT COLLECTOR POC GLUCOSE Routine 11/08/2023 6:22 AM ACCOUNT COLLECTOR TELEMETRY STRIPS 11/08/2023 2:59 AM ACCOUNT COLLECTOR POC GLUCOSE Routine 11/07/2023 9:34 PM ACCOUNT COLLECTOR TELEMETRY STRIPS 11/07/2023 7:31 PM ACCOUNT COLLECTOR POC GLUCOSE Routine 11/07/2023 4:06 PM ACCOUNT COLLECTOR POC GLUCOSE Routine 11/07/2023 11:45 AM ACCOUNT COLLECTOR XR CHEST 2 VIEWS PA + LAT* Routine 11/07/2023 10:07 AM ACCOUNT COLLECTOR TELEMETRY STRIPS 11/07/2023 9:29 AM ACCOUNT COLLECTOR PC PROCALCITONIN (PCT) Routine 8:34 AM ACCOUNT COLLECTOR PC LAB CBC/PLT Routine 11/07/2023 8:34 AM ACCOUNT COLLECTOR PANEL BASIC METABOLIC (BMP) Routine 11/07/2023 8:34 AM ACCOUNT COLLECTOR MAGNESIUM Routine 11/07/2023 8:34 AM ACCOUNT COLLECTOR PHOSPHORUS Routine 11/07/2023 8:34 AM ACCOUNT COLLECTOR POC GLUCOSE Routine 11/07/2023 5:45 AM ACCOUNT COLLECTOR TELEMETRY STRIPS 11/07/2023 1:07 AM ACCOUNT COLLECTOR POC GLUCOSE Routine 11/06/2023 9:21 PM ACCOUNT COLLECTOR TELEMETRY STRIPS 11/06/2023 4:28 PM ACCOUNT COLLECTOR PC GASES,BLOOD,ANY COMB OF PH,PCD2,PO2,CO2,HCO2 Routine 11/06/2023 1:06 PM ACCOUNT COLLECTOR MAGNESIUM Timed 11/06/2023 1:06 PM ACCOUNT COLLECTOR PHOSPHORUS Timed 11/06/2023 1:06 PM ACCOUNT COLLECTOR PANEL BASIC METABOLIC (BMP) Timed 11/06/2023 1:06 PM ACCOUNT COLLECTOR PC LAB CBC/PLT Timed 11/06/2023 1:06 PM ACCOUNT COLLECTOR POC GLUCOSE Routine 11/06/2023 1:04 PM ACCOUNT COLLECTOR POC GLUCOSE Routine 11/06/2023 10:49 AM ACCOUNT COLLECTOR TELEMETRY STRIPS 11/06/2023 8:49 AM ACCOUNT COLLECTOR PC LAB GLYCOSYLATED HGB Routine 11/06/2023 6:31 AM ACCOUNT COLLECTOR PROTHROMBIN (PT) & INR Timed 6:31 AM ACCOUNT COLLECTOR PC PHOSPHORUS INORGANIC(PHOSPHATE) Routine 11/06/2023 6:31 AM ACCOUNT COLLECTOR PC MAGNESIUM, SERUM Routine 11/06/2023 6 :31 AM ACCOUNT COLLECTOR PC LAB CBC/PLT Routine 11/06/2023 6:31 AM ACCOUNT COLLECTOR TC LAB BLOOD DRAW BY VENIPUNCTURE Routine 11/06/2023 6:31 AM ACCOUNT COLLECTOR POC GLUCOSE Routine 11/06/2023 5:39 AM ACCOUNT COLLECTOR TELEMETRY STRIPS 11/06/2023 1:52 AM ACCOUNT COLLECTOR POC GLUCOSE Routine 11/05/2023 4:54 PM ACCOUNT COLLECTOR MAGNESIUM Routine 11/05/2023 4:48 PM ACCOUNT COLLECTOR POTASSIUM Routine 11/05/2023 4:[address] HEAD NO IV CONTRAST Timed 11:44 AM ACCOUNT COLLECTOR POC GLUCOSE Routine 11/05/2023 11:11 AM ACCOUNT COLLECTOR TELEMETRY STRIPS 11/05/2023 9:25 AM ACCOUNT COLLECTOR EKG ADULT (12-LEAD) Routine 11/05/2023 6 :38 AM ACCOUNT COLLECTOR POC GLUCOSE Routine 11/05/2023 6:[address] HEAD NO IV CONTRAST Timed 4:54 AM ACCOUNT COLLECTOR PROTHROMBIN (PT) & INR Timed 4:27 AM ACCOUNT COLLECTOR PC PHOSPHORUS INORGANIC(PHOSPHATE) Routine 11/05/2023 4:27 AM ACCOUNT COLLECTOR PC MAGNESIUM, SERUM Routine 11/05/2023 4 :27 AM ACCOUNT COLLECTOR PC GASES,BLOOD,ANY COMB OF PH,PCD2,PO2,CO2,HCO2 Routine 11/05/2023 4:27 AM ACCOUNT COLLECTOR PC LAB CBC/PLT Routine 11/05/2023 4:27 AM ACCOUNT COLLECTOR TC LAB BLOOD DRAW BY VENIPUNCTURE Routine 11/05/2023 4:27 AM ACCOUNT COLLECTOR PC TROPONIN QUANTITATIVE Timed 11/05/2023 4:27 AM ACCOUNT COLLECTOR PC TROPONIN QUANTITATIVE Timed 11/05/2023 2:58 AM ACCOUNT COLLECTOR CK, TOTAL STAT 11/05/2023 1:32 AM ACCOUNT COLLECTOR FIBRINOGEN STAT 11/05/2023 1:32 AM ACCOUNT COLLECTOR PC LAB PTT STAT 11/05/2023 1:32 AM ACCOUNT COLLECTOR PANEL HEPATIC FUNCTION STAT 1:32 AM ACCOUNT COLLECTOR PC LAB CBC/PLT STAT 11/05/2023 1:32 AM ACCOUNT COLLECTOR PANEL BASIC METABOLIC (BMP) STAT 11/05/2023 1:32 AM ACCOUNT COLLECTOR MAGNESIUM STAT 11/05/2023 1:32 AM ACCOUNT COLLECTOR PHOSPHORUS STAT 11/05/2023 1:32 AM ACCOUNT COLLECTOR PROTHROMBIN (PT) & INR STAT 1:32 AM ACCOUNT COLLECTOR PC IONIZED,CALCIUM STAT 11/05/2023 1: 18 AM ACCOUNT COLLECTOR PC LACTATE (LACTIC ACID) STAT 11/05/2023 1:18 AM ACCOUNT COLLECTOR PC GASES,BLOOD,ANY COMB OF PH,PCD2,PO2,CO2,HCO2 STAT 11/05/2023 1:18 AM ACCOUNT COLLECTOR PC TROPONIN QUANTITATIVE Timed 11/05/2023 1:[address] HEAD-NECK - ANGIO - W/IV CON STAT 11/05/2023 12:09 AM ACCOUNT COLLECTOR PC LAB COMPLETE UA STAT 11/04/2023 11 :55 PM ACCOUNT COLLECTOR PF INSERT CATH,ART,PERCUT,SANTA ERM Routine 11/04/2023 11:43 PM ACCOUNT COLLECTOR ED EKG (12-LEAD) Routine 11/04/2023 11:[address] SPINE LUMBAR NO IV CON STAT 11/04/2023 11:[address] SPINE THORACIC NO IV CON STAT 11/04/2023 11:[address] CHEST/ABD/PELVIS W/IV CONT STAT 11/04/2023 11:[address] SPINE CERVICAL NO IV CON STAT 11/04/2023 11:[address] HEAD NO IV CONTRAST STAT 11:05 PM ACCOUNT COLLECTOR XR CHEST 1 VIEW AP OR PA* STAT 11/04/2023 10:57 PM ACCOUNT COLLECTOR TC LAB ER STAT TOTAL HGB STAT 11/04/2023 10:48 PM ACCOUNT COLLECTOR PC ELECTROLYTES PANEL STAT 11/04/2023 10:48 PM ACCOUNT COLLECTOR PC HEPARIN ASSAY STAT 11/04/2023 10:4 5 PM ACCOUNT COLLECTOR EXTRA TUBE - SST Routine 11/04/2023 10:4 5 PM ACCOUNT COLLECTOR TC LAB BLOOD DRAW BY VENIPUNCTURE Routine 11/04/2023 10:45 PM ACCOUNT COLLECTOR PC TROPONIN QUANTITATIVE STAT 11/04/2023 10:45 PM ACCOUNT COLLECTOR PC LAB PTT STAT 11/04/2023 10:45 PM ACCOUNT COLLECTOR PC LAB ED INR STAT 11/04/2023 10:45 PM ACCOUNT COLLECTOR PRECAUTIONARY TUBE STAT 11/04/2023 10 :45 PM ACCOUNT COLLECTOR PC LACTATE (LACTIC ACID) STAT 11/04/2023 10:45 PM ACCOUNT COLLECTOR FIBRINOGEN STAT 11/04/2023 10:45 PM ACCOUNT COLLECTOR PC LAB CBC W/DIFF & PLT STAT 11/04/2023 10:45 PM ACCOUNT COLLECTOR PC GASES,BLOOD,ANY COMB OF PH,PCD2,PO2,CO2,HCO2 STAT 11/04/2023 10:45 PM ACCOUNT COLLECTOR ED US CRITICAL CARE STAT 11/04/2023 1 0:40 PM ACCOUNT COLLECTOR PANEL LIPID Routine 10/10/2021 11:08 AM ACCOUNT COLLECTOR from Last 3 Months or Most Recently Relevant to Health Maintenance Results * (ABNORMAL) PANEL BASIC METABOLIC (BMP) (11/16/2023 7:22 AM ACCOUNT COLLECTOR) Only the most recent of12 resultswithin the time period is included. Sodium 143 135 - 148 mEq/L [facility] Potassium 3.9 3.5 - 5.3 mEq/L [facility] Chloride 105 92 - 108 mEq/L [facility] CO2 27 22 - 30 mEq/L [facility] AnGap 11 8 - 16 mEq/L [facility] Glucose 87 70 - 100 mg/dL [facility] BUN 23 8 - 23 mg/dL [facility] Creatinine 1.19(H) 0.50 - 1.00 mg/dL [facility] Calcium 9.4 8.8 - 10.2 mg/dL [facility] eGFR (2020 CKD-EPI) 46(L) >=60 ml/min/1.7 3m2 [facility] Comment: The estimated glomerular filtration rate (eGFR) was calculated using the CKD-EPI 2020 creatinine equation, which does not include race as a factor. This equation is validated in individuals 18 years of age and older, and eGFR is normalized to a body surface area of 1.73m^2. Blood 11/16/2023 7:22 AM ACCOUNT COLLECTOR 11/16/2023 7:43 AM ACCOUNT COLLECTOR Jesusita Aiken MEDICAL LAB TECH INSTRUCTOR, GLUING CREW LEADER LABORATO RY Performing Organization Address City/[facility]/[place] [address] * POC GLUCOSE (11/16/2023 6:58 AM ACCOUNT COLLECTOR) Only the most recent of42 resultswithin the time period is included. POC Glucose 84 70 - 100 mg/dL [facility] Blood 11/16/2023 6:58 AM ACCOUNT COLLECTOR Devin Dougherty MD LABORATORY Performing Organization Address City/[facility] Co de Phone Number [facility] [address] [place] [address], * PHOSPHORUS (11/11/2023 6:09 AM ACCOUNT COLLECTOR) Only the most recent of7 resultswithin the time period is included. Phosphorus 3.5 2.5 - 4.5 mg/dL [facility] Blood 11/11/2023 6:09 AM ACCOUNT COLLECTOR 11/11/2023 6:36 AM ACCOUNT COLLECTOR Quinn Covarrubias MD LABORATORY Performing Organization Address [facility]/ZIP Co de Phone Number [facility] [address] [address] * MAGNESIUM (11/11/2023 6:09 AM ACCOUNT COLLECTOR) Only the most recent of8 resultswithin the time period is included. Magnesium 2.2 1.6 - 2.4 mg/dL [facility] Blood 11/11/2023 6:09 AM ACCOUNT COLLECTOR 11/11/2023 6:36 AM ACCOUNT COLLECTOR Quinn Covarrubias MD LABORATORY Performing Organization Address [facility] Co de Phone Number [facility] [address] [address] * (ABNORMAL) CBC WITH PLATELET (11/11/2023 6:09 AM ACCOUNT COLLECTOR) Only the most recent of7 resultswithin the time period is included. [facility] WBC 5.60 4.00 - 10.00 k/cmm [facility] RBC 3.80(L) 3.90 - 5.20 m/cmm [facility] Hgb 9.5(L) 11.5 - 15.7 g/dL [facility] Hematocrit 31.4(L) 34.0 - 45.0 % [facility] MCV 82.6 80.0 - 100.0 fL [facility] MCH 25.0 25.0 - 32.0 pg [facility] MCHC 30.3(L) 31.0 - 36.0 g/dL [facility] RDW 16.1(H) 11.5 - 14.5 % [facility] Plt 275 150 - 400 k/cmm [facility] MPV 11.8 6.5 - 12.5 fL [facility] Blood 11/11/2023 6:09 AM ACCOUNT COLLECTOR 11/11/2023 6:36 AM ACCOUNT COLLECTOR Quinn Covarrubias MD LABORATORY Performing Organization Address [facility] Co de Phone Number [facility] [address] [address] * ANTI XA ASSAY LMW HEPARIN (11/09/2023 2:18 PM ACCOUNT COLLECTOR) [facility] Anti XA LMW 0.32 IU/mL [facility] Comment: Anti Xa Assay LMW Heparin Therapeutic Ranges: 0.4-1.1 IU/mL for twice daily 1.0-2.0 IU/mL for once daily Blood 11/09/2023 2:18 PM ACCOUNT COLLECTOR 11/09/2023 2:29 PM ACCOUNT COLLECTOR Quinn Covarrubias MD LABORATORY [facility] [address] [address] * XR FOOT RIGHT 3 V AP/OBL/LAT* (11/09/2023 10:36 AM ACCOUNT COLLECTOR) Anatomical Region Laterality Modality Foot Computed Radiogr aphy 11/09/2023 10:4 7 AM ACCOUNT COLLECTOR Impressions 11/09/2023 10:50 AM ACCOUNT COLLECTOR Impression: No acute osseous abnormality. Generalized osteopenia. Reading Radiologist: Angela Camp Narrative 11/09/2023 10:50 AM ACCOUNT COLLECTOR Technique: XR FOOT RIGHT 3 V AP/OBL/LAT* [...] acute osseous abnormality. Generalized osteopenia. Reading Radiologist: Angeal Camp Jesusita Aiken APRN, GLUING CREW LEADER RAD XRAY * TELEMETRY STRIPS (11/09/2023 8:48 AM ACCOUNT COLLECTOR) Only the most recent of12 resultswithin the time period is included. Narrative 11/09/2023 8:48 AM ACCOUNT COLLECTOR Ordered by an unspecified provider. Provider Unknown RAD ECHO * (ABNORMAL) VALPROATE (DEPAKOTE) LEVEL (11/09/2023 5:41 AM ACCOUNT COLLECTOR) Valproate 31.8(L) 50.0 - 100.0 mcg/mL [facility] Blood 11/09/2023 5:41 AM ACCOUNT COLLECTOR 11/09/2023 8:19 AM ACCOUNT COLLECTOR Quinn Covarrubias MD LABORATORY [facility] [address] [place] [address] * XR CHEST 1 VIEW AP OR PA* (11/08/2023 6:30 AM ACCOUNT COLLECTOR) Only the most recent of2 resultswithin the time period is included. Anatomical Region Laterality Modality Chest Computed Radiogr aphy 11/08/2023 6:56 AM ACCOUNT COLLECTOR Impressions 11/08/2023 7:24 AM ACCOUNT COLLECTOR Impression: Stable chest. I have personally reviewed the image(s) and initial interpretation, and I agree with the findings as documented by the resident/fellow. Reading Radiologist: Ronal Hidalgo Reading Resident: Laith Berkowitz Narrative 11/08/2023 7:24 AM ACCOUNT COLLECTOR Technique: XR CHEST 1 VIEW AP OR [...] VIEWS PA + LAT* (11/07/2023 10:07 AM ACCOUNT COLLECTOR) Anatomical Region Laterality Modality Chest Computed Radiogr aphy 11/07/2023 10:0 9 AM ACCOUNT COLLECTOR Impressions 11/07/2023 10:10 AM ACCOUNT COLLECTOR Impression: New left basilar opacities with small effusion concerning for developing infection. Reading Radiologist: Phil Contreras Narrative 11/07/2023 10:10 AM ACCOUNT COLLECTOR Technique: XR CHEST 2 VIEWS PA + LAT* Indication: suspicion for pneumonia ?? Comparison: 11/04/2023 Findings: Cardiac size and pulmonary vascularity are within normal limits. There are coarsened opacities in the left lung base with a small effusion present. Procedure Note Phil Contreras DO - 11/07/2023 Technique: XR CHEST 2 [...] RAD XRAY * PROCALCITONIN (11/07/2023 8:34 AM ACCOUNT COLLECTOR) Procalcitonin 0.12 ng/mL [facility] Comment: Results <0.50 ng/mL represent a low risk of severe sepsis and/or septic shock. Results >2.0 ng/mL represent a high risk of severe sepsis and/or septic shock. Blood 11/07/2023 8:34 AM ACCOUNT COLLECTOR 11/07/2023 8:40 AM ACCOUNT COLLECTOR Quinn Covarrubias MD LABORATORY [facility] [address] [address] * (ABNORMAL) BLOOD GASES (11/06/2023 1:06 PM ACCOUNT COLLECTOR) Only the most recent of3 resultswithin the time period is included. PH Jalen 7.36 7.32 - 7.42 [facility] PCO2 Jalen 48 41 - 51 mmHG [facility] PO2 Jalen 86(H) 25 - 40 mmHG [facility] Bicarb Jalen 26 24 - 28 mEq/L [facility] O2 Sat Jalen 96 % [facility] Base Exc Jalen 1.0 -10.0 - 2.0 mEq/L [facility] Blood Venous 11/06/2023 1:06 PM ACCOUNT COLLECTOR 11/06/2023 1:10 PM ACCOUNT COLLECTOR Narrative [facility] - 11/06/2023 1:16 PM ACCOUNT COLLECTOR Draw on Room Air: No O2 LPM (liter/min) Level->4 via mask FiO2 Level: 100 Quinn Covarrubias MD LABORATORY Performing Organization Address [facility] de Phone Number [facility] [address] [address] * (ABNORMAL) ICU MAGNESIUM (11/06/2023 6:31 AM ACCOUNT COLLECTOR) Only the most recent of2 resultswithin the time period is included. Magnesium 2.5(H) 1.6 - 2.4 mg/dL [facility] Blood 11/06/2023 6:31 AM ACCOUNT COLLECTOR 11/06/2023 7:37 AM ACCOUNT COLLECTOR Devin Dougherty MD LABORATORY Performing Organization Address [facility] de Phone Number [facility] [address] [address] * ICU PHOSPHORUS (11/06/2023 6:31 AM ACCOUNT COLLECTOR) Only the most recent of2 resultswithin the time period is included. Phosphorus 4.1 2.5 - 4.5 mg/dL [facility] Blood 11/06/2023 6:31 AM ACCOUNT COLLECTOR 11/06/2023 7:37 AM ACCOUNT COLLECTOR Devin Dougherty MD LABORATORY Performing Organization Address [facility] de Phone Number [facility] [address] [address] * (ABNORMAL) ICU CBC WITH PLATELET (11/06/2023 6:31 AM ACCOUNT COLLECTOR) Only the most recent of2 resultswithin the time period is included. WBC 9.06 4.00 - 10.00 k/cmm [facility] RBC 3.77(L) 3.90 - 5.20 m/cmm [facility] Hgb 9.6(L) 11.5 - 15.7 g/dL [facility] Hematocrit 30.8(L) 34.0 - 45.0 % [facility] MCV 81.7 80.0 - 100.0 fL [facility] MCH 25.5 25.0 - 32.0 pg [facility] MCHC 31.2 31.0 - 36.0 g/dL [facility] RDW 15.9(H) 11.5 - 14.5 % [facility] Plt 284 150 - 400 k/cmm [facility] MPV 12.1 6.5 - 12.5 fL [facility] Blood 11/06/2023 6:31 AM ACCOUNT COLLECTOR 11/06/2023 7:37 AM ACCOUNT COLLECTOR Devin Dougherty MD LABORATORY [facility] [address] [id number] * (ABNORMAL) ICU PANEL BASIC METABOLIC (BMP) (11/06/2023 6:31 AM ACCOUNT COLLECTOR) Only the most recent of2 resultswithin the time period is included. Sodium 142 135 - 148 mEq/L [facility] Potassium 3.7 3.5 - 5.3 mEq/L [facility] Chloride 107 92 - 108 mEq/L [facility] CO2 26 22 - 30 mEq/L [facility] AnGap 9 8 - 16 mEq/L [facility] Glucose 148(H) 70 - 100 mg/dL [facility] BUN 12 8 - 23 mg/dL [facility] Creatinine 0.77 0.50 - 1.00 mg/dL [facility] Calcium 8.7(L) 8.8 - 10.2 mg/dL [facility] eGFR (2020 CKD-EPI) 77 >=60 ml/min/1.7 3m2 [facility] Comment: The estimated glomerular filtration rate (eGFR) was calculated using the CKD-EPI 2020 creatinine equation, which does not include race as a factor. This equation is validated in individuals 18 years of age and older, and eGFR is normalized to a body surface area of 1.73m^2. Blood 11/06/2023 6:31 AM ACCOUNT COLLECTOR 11/06/2023 7:37 AM ACCOUNT COLLECTOR Devin Dougherty MD LABORATORY Performing Organization Address [facility] Co de Phone Number [facility] [address] [address] * PROTHROMBIN (PT) & INR (11/06/2023 6:31 AM ACCOUNT COLLECTOR) Only the most recent of3 resultswithin the time period is included. PT 11.4 9.0 - 12.5 sec [facility] INR 1.0 0.8 - 1.1 [facility] Comment: Warfarin Therapeutic Range: Standard Intensity: 2.0 - 3.0 High Intensity: 2.5 - 3.5 Blood 11/06/2023 6:31 AM ACCOUNT COLLECTOR 11/06/2023 7:37 AM ACCOUNT COLLECTOR Quinn Covarrubias MD LABORATORY Performing Organization Address [facility] de Phone Number [address] [address] * (ABNORMAL) GLYCOSYLATED HGB - A1C (11/06/2023 6:31 AM ACCOUNT COLLECTOR) Hemoglobin A1C 8.1(H) 4.0 - 5.6 % [facility] Comment: Increased risk for diabetes (prediabetes): 5.7-6.4% Diabetes: greater than or equal to 6.5% * * In the absence of unequivocal hyperglycemia, diagnosis requires two abnormal test results (i.e. HbA1c and glucose) or two abnormal results from specimens collected at two different timepoints. Estimated Average Glucose 186(H) 68 - 114 [facility] Comment: The ADA recommends reporting an estimated Average Glucose (eAG) with all hemoglobin A1c results using the equation derived from a study of 501 normal diabetic adults. Minority populations were underrepresented and children were not included. The EAG is not equivalent to a fasting glucose. Blood 11/06/2023 6:31 AM ACCOUNT COLLECTOR 11/06/2023 11:28 AM ACCOUNT COLLECTOR Quinn Covarrubias MD LABORATORY Performing Organization Address [facility] Co de Phone Number [address] [address] * (ABNORMAL) POTASSIUM (11/05/2023 4:48 PM ACCOUNT COLLECTOR) Potassium 3.2(L) 3.5 - 5.3 mEq/L [facility] Blood 11/05/2023 4:48 PM ACCOUNT COLLECTOR 11/05/2023 4:58 PM ACCOUNT COLLECTOR Quinn Covarrubias MD LABORATORY [facility] [address] [place] [address] * CT HEAD NO IV CONTRAST (11/05/2023 11:44 AM ACCOUNT COLLECTOR) Only the most recent of3 resultswithin the time period is included. Anatomical Region Laterality Modality Skull Computed Tomogra phy 11/05/2023 12:1 6 PM ACCOUNT COLLECTOR Impressions 11/05/2023 12:38 PM ACCOUNT COLLECTOR Impression: Stable head CT as compared to the study performed 7 hours earlier. Intra-axial and extra-axial hemorrhage(s) without midline shift or hydrocephalus. The basal cisterns are patent. Reading Radiologist: Ford Fernández Narrative 11/05/2023 12:38 PM ACCOUNT COLLECTOR Exam: Head CT without contrast, 11/05/2023 Indication: [...] * EKG ADULT (12-LEAD) (11/05/2023 6:38 AM ACCOUNT COLLECTOR) 11/05/2023 6:38 AM ACCOUNT COLLECTOR Impressions [facility] EKG ORDERS - 11/05/2023 6:38 AM ACCOUNT COLLECTOR SINUS RHYTHM RIGHT BUNDLE BRANCH BLOCK ??[120+ ms QRS DURATION, UPRIGHT V1, 40+ ms S IN I/aVL/V4/V5/V6] ABNORMAL ECG P-R Interval 151 ms QRS Interval 128 ms QT Interval 420 ms QTC Interval 462 ms P Wykoff 9 QRS Wykoff 27 T Wave Wykoff 70 Narrative Procedure Note Lauren Mills MD - 11/06/2023 IMPRESSION SINUS RHYTHM RIGHT BUNDLE BRANCH BLOCK [120+ ms QRS DURATION, UPRIGHT V1, 40+ ms S INI/aVL/V4/V5/V6] ABNORMAL ECG P-R Interval 151 ms QRS Interval 128 ms QT Interval 420 ms QTC Interval 462 ms P Wykoff 9 QRS Wykoff 27 T Wave Wykoff 70 Quinn Covarrubias MD EKG Performing Organization Address [facility]/ZIP Co de Phone Number [facility] EKG ORDERS * (ABNORMAL) ICU BLOOD GAS (11/05/2023 4:27 AM ACCOUNT COLLECTOR) PH Art 7.38 7.35 - 7.45 [facility] PCO2 Art 42 35 - 45 mmHG [facility] PO2 Art 99(H) 75 - 85 mmHG [facility] Bicarb Art 25 22 - 26 mEq/L [facility] O2 Sat Art 98 96 - 99 % [facility] Base Exc Art 0.0 -10.0 - 2.0 mEq/L [facility] Blood Arterial 11/05/2023 4: 27 AM ACCOUNT COLLECTOR 11/05/2023 4:34 AM ACCOUNT COLLECTOR Devin Dougherty MD LABORATORY [facility] [address] [address] * (ABNORMAL) TROP 6H (11/05/2023 4:27 AM ACCOUNT COLLECTOR) 6H Trop 51(H) <=14 ng/L [facility] 6H Delta Significan t(A) Not Significant [facility] Blood 11/05/2023 4:27 AM ACCOUNT COLLECTOR 11/05/2023 4:35 AM ACCOUNT COLLECTOR Devin Dougherty MD LABORATORY Performing Organization Address [facility] Co de Phone Number [facility] [address] [address] * (ABNORMAL) TROP 4H (11/05/2023 2:58 AM ACCOUNT COLLECTOR) 4H Trop 39(H) <=14 ng/L [facility] 4H Delta Significan t(A) Not Significant [facility] Blood 11/05/2023 2:58 AM ACCOUNT COLLECTOR 11/05/2023 3:48 AM ACCOUNT COLLECTOR Devin Dougherty MD LABORATORY Performing Organization Address [facility] de Phone Number [facility] [address] [address] * (ABNORMAL) PANEL HEPATIC FUNCTION (11/05/2023 1:32 AM ACCOUNT COLLECTOR) Alk Phos 111(H) 35 - 104 IU/L [facility] Total Protein 6.5 6.4 - 8.3 g/dL [facility] Bili Direct na <=0.3 mg/dL [facility] Comment:Direct Bilirubin = < 0.2. Accuracy of result suspect due to lipemia. Albumin 3.8 3.8 - 5.1 g/dL [facility] Bili Total <0.2 <=1.2 mg/dL [facility] ALT (SGPT) na <=33 [facility] Comment:ALT = 15. Accuracy o f result suspect due to lipemia. AST(SGOT) na 5 - 40 [facility] Comment:AST = 27. Accuracy o f result suspect due to lipemia. Blood 11/05/2023 1:32 AM ACCOUNT COLLECTOR 11/05/2023 1:32 AM ACCOUNT COLLECTOR Devin Dougherty MD LABORATORY Performing Organization Address [facility] Co de Phone Number [facility] [address] [address] * FIBRINOGEN (11/05/2023 1:32 AM ACCOUNT COLLECTOR) Only the most recent of2 resultswithin the time period is included. Fibrinogen 262 200 - 400 mg/dL [facility] Blood 11/05/2023 1:32 AM ACCOUNT COLLECTOR 11/05/2023 1:32 AM ACCOUNT COLLECTOR Devin Dougherty MD LABORATORY Performing Organization Address [facility] de Phone Number [facility] [address] [address] * CK, TOTAL (11/05/2023 1:32 AM ACCOUNT COLLECTOR) CK 56 26 - 192 IU/L [facility] Blood 11/05/2023 1:32 AM ACCOUNT COLLECTOR 11/05/2023 1:32 AM ACCOUNT COLLECTOR Devin Dougherty MD LABORATORY Performing Organization Address [facility] de Phone Number [facility] [address] [address] * PTT (APTT) (11/05/2023 1:32 AM ACCOUNT COLLECTOR) Only the most recent of2 resultswithin the time period is included. APTT 26.0 25.0 - 37.0 sec [facility] Blood 11/05/2023 1:32 AM ACCOUNT COLLECTOR 11/05/2023 1:32 AM ACCOUNT COLLECTOR Devin Dougherty MD LABORATORY Performing Organization Address [facility] Co de Phone Number [facility] [address] [address] * (ABNORMAL) TROP 2H (11/05/2023 1:18 AM ACCOUNT COLLECTOR) 2H Trop 18(H) <=14 ng/L [facility] 2H Delta Indeterminate Not Significant [facility] Blood 11/05/2023 1:18 AM ACCOUNT COLLECTOR 11/05/2023 1:45 AM ACCOUNT COLLECTOR Devin Dougherty MD LABORATORY Performing Organization Address [facility] Co de Phone Number [facility] [address] [address] * LACTATE (LACTIC ACID) (11/05/2023 1:18 AM ACCOUNT COLLECTOR) Only the most recent of2 resultswithin the time period is included. Lactate 1.9 0.7 - 2.1 mmol/L [facility] Blood 11/05/2023 1:18 AM ACCOUNT COLLECTOR 11/05/2023 1:27 AM ACCOUNT COLLECTOR Narrative [facility] - 11/05/2023 1:45 AM ACCOUNT COLLECTOR Send specimen on ice! eDvin Dougherty MD LABORATORY Performing Organization Address [facility] Co de Phone Number [address] [address] * CALCIUM,IONIZED (11/05/2023 1:18 AM ACCOUNT COLLECTOR) PH 7.37 7.32 - 7.42 [facility] ICA, Actual 4.82 4.40 - 5.20 mg/dL [facility] ICA, pH Corrected 4.75 4.40 - 5.20 mg/dL [facility] Blood 11/05/2023 1:18 AM ACCOUNT COLLECTOR 11/05/2023 1:27 AM ACCOUNT COLLECTOR Narrative [facility] - 11/05/2023 1:44 AM ACCOUNT COLLECTOR Send specimen on ice! Devin Dougherty MD LABORATORY Performing Organization Address [facility] Co de Phone Number [address] [address] * CT HEAD-NECK - ANGIO - W/IV CON (11/05/2023 12:09 AM ACCOUNT COLLECTOR) Anatomical Region Laterality Modality Skull Computed Tomogra phy 11/05/2023 12:2 1 AM ACCOUNT COLLECTOR Impressions 11/05/2023 10:22 AM ACCOUNT COLLECTOR Impression: ?? Slightly increased size of the [...] Fernández Resident: Laith Berkowitz 11/05/2023 10:[address] angiogram of the Head with contrast, [...] and reviewed by the Radiologist using the Qalendra workstation, and these images were archived in [...] of multifocal subarachnoid hemorrhages. Procedure Note Ford Fernández Jacki, DO - 11/05/2023 CT angiogram of the [...] and reviewed by the Radiologist using the [employer]alendra workstation,and these images were archived in the [...] NEURO * (ABNORMAL) URINALYSIS,TOTAL (11/04/2023 11:55 PM ACCOUNT COLLECTOR) Color COLORLESS YELLOW [facility] Appearance CLEAR CLEAR [facility] Urine Glucose 100(A) NEGATIVE mg/dL [facility] Bili UA NEGATIVE NEGATIVE [facility] Ketones NEGATIVE NEGATIVE [facility] Specific [place] 1.036(A) 1.003 - 1.030 [facility] Blood Ur NEGATIVE Neg-Trace [facility] PH Urine 7.5(H) 5.0 - 7.0 [facility] Protein Ur TRACE Neg-Trace [facility] Urobilinogen NORMAL NORMAL EU/dL [facility] Nitrite Ur NEGATIVE NEGATIVE [facility] Leuk Est NEGATIVE Neg-Trace [facility] WBC Ur 0-5 0 - 5 perHPF [facility] RBC Ur 0-3 0 - 3 perHPF [facility] SQ EPITH 0-5 0 - 5 perHPF [facility] Urinalysis Performed at: [facility] Urine 11/04/2023 11:5 5 PM ACCOUNT COLLECTOR 11/05/2023 12:03 AM ACCOUNT COLLECTOR Devin Dougherty MD LABORATORY [facility] [address] [place] [phone] * PF INSERT CATH,ART,PERCUT,SHORTTERM (11/04/2023 11:43 PM ACCOUNT COLLECTOR) Narrative Rito Graf MD - 11/04/2023 11:43 PM ACCOUNT COLLECTOR Priscilla Holcomb MD ? 11/04/2023 11:44 PM Arterial Line Performed by: Priscilla Holcomb MD Authorized by: Rito Graf MD ?? Consent: ??Consent obtained: ??Verbal ??Consent given by: ??Patient ??Risks discussed: ??Pain, bleeding and infection Newell protocol: ??Patient identity confirmed: ??Verbally with patient, [...] * ED EKG (12-LEAD) (11/04/2023 11:25 PM ACCOUNT COLLECTOR) 11/04/2023 11:2 5 PM ACCOUNT COLLECTOR Impressions [facility] ORDERS - 11/04/2023 11:25 PM ACCOUNT COLLECTOR SINUS TACHYCARDIA RIGHT BUNDLE BRANCH BLOCK ??[120+ ms QRS DURATION, UPRIGHT V1, 40+ ms S IN I/aVL/V4/V5/V6] ABNORMAL ECG P-R Interval 173 ms QRS Interval 127 ms QT Interval 395 ms QTC Interval 458 ms P Wykoff 57 QRS Wykoff 34 T Wave Wykoff 43 Narrative Procedure Note Vineet Díaz MD - 11/05/2023 IMPRESSION SINUS TACHYCARDIA RIGHT BUNDLE BRANCH BLOCK [120+ ms QRS DURATION, UPRIGHT V1, 40+ ms S INI/aVL/V4/V5/V6] ABNORMAL ECG P-R Interval 173 ms QRS Interval 127 ms QT Interval 395 ms QTC Interval 458 ms P Wykoff 57 QRS Wykoff 34 T Wave Wykoff 43 Devin Dougherty MD EKG [facility] E[facility] ORDERS * CT SPINE THORACIC NO IV CON (11/04/2023 11:05 PM ACCOUNT COLLECTOR) Anatomical Region Laterality Modality Thoracic Spine Computed Tomogra phy 11/04/2023 11:2 3 PM ACCOUNT COLLECTOR Impressions 11/05/2023 9:22 AM ACCOUNT COLLECTOR Impression: 1. No suspected acute fracture or dislocation of the thoracic or lumbar spine. ?? 2. Grlu-kn-wgetkkqn lumbar spondylosis without suspected high-grade spinal canal or neural foraminal narrowing. I have personally reviewed the image(s) and initial interpretation, and I agree with the findings as documented by the resident/fellow. Reading Radiologist: Ford Fernández Resident: Laith Berkowitz 11/05/2023 9:22 AM ACCOUNT COLLECTOR Exam: Thoracic and Lumbar Spine CT Reconstructions, [...] dislocation of the thoracic or lumbarspine. 2. Jwkj-lj-mscorqst lumbar spondylosis without suspected high-grade spinalcanal or neural foraminal narrowing. I have personally reviewed the image(s) and initial interpretation, and Iagree with the findings as documented by the resident/fellow. Reading Radiologist: Ford Fernández Resident: Laith Berkowitz Devin Dougherty MD RAD CT NEURO * CT SPINE LUMBAR NO IV CON (11/04/2023 11:05 PM ACCOUNT COLLECTOR) Anatomical Region Laterality Modality Lumbar Spine Computed Tomogra phy 11/04/2023 11:2 3 PM ACCOUNT COLLECTOR Impressions 11/05/2023 9:22 AM ACCOUNT COLLECTOR Impression: 1. No suspected acute fracture or dislocation of the thoracic or lumbar spine. ?? 2. Ivle-aq-alxkfvqi lumbar spondylosis without suspected high-grade spinal canal or neural foraminal narrowing. I have personally reviewed the image(s) and initial interpretation, and I agree with the findings as documented by the resident/fellow. Reading Radiologist: Ford Fernández Resident: Laith Berkowitz Narrative 11/05/2023 9:22 AM ACCOUNT COLLECTOR Exam: Thoracic and Lumbar Spine CT Reconstructions, [...] Mild thecal sac narrowing. Procedure Note Ford Fernández DO - 11/05/2023 Exam: Thoracic and Lumbar [...] dislocation of the thoracic or lumbarspine. 2. Tsdt-md-mzexhcxa lumbar spondylosis without suspected high-grade spinalcanal or neural foraminal narrowing. I have personally reviewed the image(s) and initial interpretation, and Iagree with the findings as documented by the resident/fellow. Reading Radiologist: Ford Fernández Resident: Laith Berkowitz Devin Dougherty MD RAD CT NEURO * CT SPINE CERVICAL NO IV CON (11/04/2023 11:05 PM ACCOUNT COLLECTOR) Anatomical Region Laterality Modality Cervical Spine Computed Tomogra phy 11/04/2023 11:2 0 PM ACCOUNT COLLECTOR Impressions 11/05/2023 8:27 AM ACCOUNT COLLECTOR Impression: ?? 1. No acute fracture or traumatic subluxation of the cervical vertebrae. 2. Mild degenerative changes of the cervical spine without high-grade spinal canal or neural foraminal narrowing. I have personally reviewed the image(s) and initial interpretation, and I agree with the findings as documented by the resident/fellow. Reading Radiologist: Ford Fernández Resident: Laith Berkowitz Narrative 11/05/2023 8:27 AM ACCOUNT COLLECTOR Exam: Cervical spine CT without contrast, 11/04/2023 [...] spinal canal narrowing. C5-6: Mild left and zdrt-ur-syfrznuq right neural foraminal narrowing. Borderline mild spinal canal narrowing. C6-7: Mild bilateral neural foraminal narrowing. No convincing spinal canal narrowing. C7-T1: Mild bilateral neural foraminal narrowing. Borderline mild spinal canal narrowing. No abnormality of the visualized paraspinous tissues. Scattered calcific atherosclerosis. Procedure Note Ford Fernández, DO - 11/05/2023 Exam: Cervical spine CT [...] spinal canal narrowing. C5-6: Mild left and zbrh-yg-rrrezwiz right neural foraminal narrowing.Borderline mild spinal canal [...] CT CHEST/ABD/PELVIS W/IV CONT (11/04/2023 11:05 PM ACCOUNT COLLECTOR) Anatomical Region Laterality Modality Chest Computed Tomogra phy 11/04/2023 11:2 9 PM ACCOUNT COLLECTOR Impressions 11/05/2023 6:33 AM ACCOUNT COLLECTOR Impression: 1. No acute traumatic sequelae in [...] by the resident/fellow. Reading Radiologist: Scott Porras Resident: Laith Berkowitz Narrative 11/05/2023 6:33 AM ACCOUNT COLLECTOR Comparison: None Indication: Trauma (STAB) ?? Technique: [...] ED CHEMISTRY LABS(NA,K,CL,CO2,GLU,CREAT,CA-IONIZED,ANION GAP) (11/04/2023 10:48 PM ACCOUNT COLLECTOR) Sodium 144 135 - 148 mEq/L [facility] Chloride 106 92 - 108 mEq/L [facility] AnGap 11 8 - 16 mEq/L [facility] Glucose 234(H) 70 - 100 mg/dL [facility] ICA, Actual 4.52 4.40 - 5.20 mg/dL [facility] ICA, pH Corrected 4.51 4.40 - 5.20 mg/dL [facility] Creatinine 0.81 0.50 - 1.00 mg/dL [facility] BICARB 27(H) 22 - 26 mEq/L [facility] eGFR (2020 CKD-EPI) 73 >=60 ml/min/1.7 3m2 [facility] Comment: The estimated glomerular filtration rate (eGFR) was calculated using the CKD-EPI 2020 creatinine equation, which does not include race as a factor. This equation is validated in individuals 18 years of age and older, and eGFR is normalized to a body surface area of 1.73m^2. Potassium 2.8(AA) 3.5 - 5.3 mEq/L [facility] Comment:Critcal Result Low Blood 11/04/2023 10:4 8 PM ACCOUNT COLLECTOR 11/04/2023 10:49 PM ACCOUNT COLLECTOR Narrative [facility] - 11/04/2023 10:55 PM ACCOUNT COLLECTOR Critical value for Potassium called to and read back by Rafa Hutchins RN in ??EDSTAB 2 at 11/04/2023 22:55:31 ACCOUNT COLLECTOR by Eleni Spring MLS. Devin Dougherty MD LABORATORY Performing Organization Address [facility] Co de Phone Number [facility] [address] [address] * (ABNORMAL) ED HEMOGLOBIN TOTAL (ED ONLY) (11/04/2023 10:48 PM ACCOUNT COLLECTOR) [facility] Hgb 10.3(L) 11.5 - 15.7 g/dL [facility] Blood 11/04/2023 10:4 8 PM ACCOUNT COLLECTOR 11/04/2023 10:49 PM ACCOUNT COLLECTOR Devin Dougherty MD LABORATORY Performing Organization Address [facility] Co de Phone Number [address] [address] * ED INR (11/04/2023 10:45 PM ACCOUNT COLLECTOR) [facility] ED INR 1.0 0.8 - 1.1 [facility] Comment: Warfarin Therapeutic Range: Standard Intensity: 2.0 - 3.0 High Intensity: 2.5 - 3.5 Blood 11/04/2023 10:4 5 PM ACCOUNT COLLECTOR 11/04/2023 10:48 PM ACCOUNT COLLECTOR Devin Dougherty MD LABORATORY Performing Organization Address [facility] Co de Phone Number [address] [address] * EXTRA TUBE - LIGHT GREEN (11/04/2023 10:45 PM ACCOUNT COLLECTOR) Pathologist [facility] LIGHT GREEN TUBE Stored [facility] Comment:Green tubes (Selman Heparin) are stored in the lab for 3 days from the collection date. Blood 11/04/2023 10:4 5 PM ACCOUNT COLLECTOR 11/04/2023 10:50 PM ACCOUNT COLLECTOR Devin Dougherty MD LABORATORY Performing Organization Address [facility] Co de Phone Number [facility] [address] [address] * EXTRA TUBE - SST (11/04/2023 10:45 PM ACCOUNT COLLECTOR) SST TUBE Stored [facility] Comment:SST tubes (Serum Sep arator) are stored in the lab for 3 days from the collection date. Blood 11/04/2023 10:4 5 PM ACCOUNT COLLECTOR 11/04/2023 10:50 PM ACCOUNT COLLECTOR Devin Dougherty MD LABORATORY Performing Organization Address [facility] Co de Phone Number [facility] [address] [address] * HS TROPONIN (11/04/2023 10:45 PM ACCOUNT COLLECTOR) Pathologist [facility] HS Troponin I 10 <=14 ng/L [facility] Blood 11/04/2023 10:4 5 PM ACCOUNT COLLECTOR 11/04/2023 11:05 PM ACCOUNT COLLECTOR Narrative [facility] - 11/04/2023 11:36 PM ACCOUNT COLLECTOR First Occurrence of the Troponin order is to be drawn Stat by Nursing staff on the unit. Devin Dougherty MD LABORATORY Performing Organization Address [facility] Co de Phone Number [facility] [address] [address] * (ABNORMAL) CBC WITH PLTS/AUTO DIFF (11/04/2023 10:45 PM ACCOUNT COLLECTOR) WBC 9.42 4.00 - 10.00 k/cmm [facility] RBC 3.86(L) 3.90 - 5.20 m/cmm [facility] Hgb 9.8(L) 11.5 - 15.7 g/dL [facility] Hematocrit 31.8(L) 34.0 - 45.0 % [facility] MCV 82.4 80.0 - 100.0 fL [facility] MCH 25.4 25.0 - 32.0 pg [facility] MCHC 30.8(L) 31.0 - 36.0 g/dL [facility] [facility] RDW 15.3(H) 11.5 - 14.5 % [facility] Plt 292 150 - 400 k/cmm [facility] MPV 11.1 6.5 - 12.5 fL [facility] Automated Abs Neutrophil 5.80 1.70 - 6.50 k/cmm [facility] Comment:Preliminary ANC, Fin al Result to Follow Abs Immature Granulocyte 0.07 0.00 - 0.09 k/cmm [facility] Comment:The Immature Granulo cyte Absolute count contains metamyelocytes and myelocytes. Abs Neutrophil 5.80 1.70 - 6.50 k/cmm [facility] Abs Lymphocyte 2.33 0.80 - 4.00 k/cmm [facility] Abs Monocyte 0.88 0.20 - 1.00 k/cmm [facility] Abs Eosinophil 0.27 0.00 - 0.60 k/cmm [facility] Abs Basophil 0.07 0.00 - 0.20 k/cmm [facility] Blood 11[facility]04/2023 10:4 5 PM ACCOUNT COLLECTOR 11/04/2023 11:05 PM ACCOUNT COLLECTOR Devin Dougherty MD LABORATORY Performing Organization Address City/[facility] Co de Phone Number [facility] [address] [address] * PRECAUTIONARY TUBE (11/04/2023 10:45 PM ACCOUNT COLLECTOR) Prec Tube Precautionary Blood Bank Specimen Received. [facility] Blood 11/04/2023 10:4 5 PM ACCOUNT COLLECTOR 11/04/2023 10:52 PM ACCOUNT COLLECTOR Devin Dougherty MD LAB TRANSFUSION SER VICES Performing Organization Address [facility]/ZIP Co de Phone Number [facility] [address] [address] * (ABNORMAL) ANTI XA HEPARIN UNFRACTIONATED (11/04/2023 10:45 PM ACCOUNT COLLECTOR) Anti XA Hep U <0.04(L) 0.30 - 0.70 IU/mL [facility] Blood 11/04/2023 10:4 5 PM ACCOUNT COLLECTOR 11/04/2023 11:05 PM ACCOUNT COLLECTOR Devin Dougherty MD LABORATORY [facility] [address] [address] * ED US CRITICAL CARE (11/04/2023 10:40 PM ACCOUNT COLLECTOR) Anatomical Region Laterality Modality Ultrasound Narrative 11/04/2023 11:28 PM ACCOUNT COLLECTOR ED Trauma eFAST Ultrasound Indications: Suspicion of [...] Advance Directives For more information, please contact: [phone] Latest Code Status on File Code Status [...] Code Status With Whom? Patient Care Teams Entry Level Management Relationship Specialty Start Date End Date Eloise Reeves DO [address] [place] [address] PCP - General Family Medicine 11/06/23
--- OUTSIDE RECORDS SUMMARY | 2023-12-10 00:54 | XMS_ITS | Encounter Summary ---
Author Name Unknown Organization [facility] Address [address] [place] [address] Phone Care Team Providers Care Special Service Representative Name Role Phone Eloise Reeves DO Primary Care Provider [phone] Reason for Visit * Reason Comments Referral TBI * Consult/Test/Treat (Routine) - Closed Specialty Diagnoses / Procedures Referred By Contac t Referred To Contact Physical Medicine and Rehab / PHYSICAL MEDICINE AND REHAB Diagnoses Fall, initial encounter SDH (subdural hematoma) ([facility]) SAH (subarachnoid hemorrhage) ([facility]) Traumatic brain injury with loss of consciousness, initial encounter ([facility]) Jesusita Aiken, 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, 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 [employer] CORD [address] [place] [address] [facility] [address] [place] [id number] Referral ID Status Reason Start Date Expiration Date Visits Re quested Visits Authorized [id number] Closed 11/08/2023 11/07/2024 1 1 Encounter Details Date Type Department Care Team (Latest Contact Info) Description 11/27/2023 1:00 PM [facility] [address] [address] Leidy Velazquez PA-C [address] [address] Mild traumatic brain injury, with loss of consciousness of 30 minutes or less, initial encounter (CMS) (Primary Dx); Reversed sleep wake cycle; Lack of appetite Discharge Disposition: Discharged to home or self care (routine discharge) Social History Tobacco Use Types Packs/Day Years [...] on file Sexual Orientation Not on file COVID-19 Exposure Response Date Recorded In the last 10 days, have yo u been in contact with someone who was confirmed or suspected to have Coronavirus/COVID-19? No / Unsure 11/04/2023 10:48 PM MASTER CHEF documented as of this encounter Last Filed Vital Signs Vital Sign Reading Time Taken Comments Blood Pressure 108/71 11/27/2023 12:54 PM MASTER CHEF Pulse 74 11/27/2023 12:54 PM MASTER CHEF Temperature - - Respiratory Rate - - Oxygen Saturation - - Inhaled Oxygen Concentration - - Weight 61.6 kg (135 lb 12.8 oz) 024 12:54 PM MASTER CHEF Height - - Body Mass Index 28.38 11/05/2023 12:03 AM MASTER CHEF documented in this encounter Patient Instructions * Patient Instructions* Leidy Velazquez PA-C - 11/27/2023 1:00 PM MASTER CHEF You were seen at [facility] for traumatic brain injury. You have been referred to the following therapies/specialists for your traumatic brain injury. Appointments will be scheduled. Please refer to your appointment list for date/times: Developmental optometry for vision changes. Speech therapy for thinking symptoms, energy management and return to work/school issues. Clinical psychology for mood changes, this is talk therapy Physical therapy for balance, dizziness, and activity intolerance. Audiology for a further evaluation of dizziness Acupuncture for headache Craniosacral therapy for headache Social work for assistance with any insurance, housing, transportation, paperwork, and/or communityresource needs. Occupational therapy for vision changes Sleep center for sleep issues. Neuropsychology to evaluate thinking symptoms. They will call you to schedule this appointment. If you do not hear from them, call [phone] to schedule Psychiatry for mood changes, this is for evaluation and treatment recommendations that may include medication. You will need to call to schedule this appointment. Please call [phone] and inform them you have a referral from the TBI clinic and would like to schedule. The appointments recommended are important to your healing and recovery. Please keep all of your scheduled medical and therapy appointments for your recovery from traumatic brain injury. If you need to cancel or reschedule your appointment, please do so as soon as possible, at least 24 hours prior to your scheduled appointment by calling at [phone]. If you miss three or more appointments, you may not be able to schedule any additional appointments in the TBI clinic. What is a traumatic brain injury (TBI)? A TBI can happen when a person hits his or her head on a hard surface or when an object hits and hurts the head, but doesn't go through the skull. Even though the object doesn't go through the skull,parts of the head can still get damaged. The most common causes of a TBI are falls, sports injuries, and car and bike accidents. Another word for a mild traumatic brain injury is a concussion. Brain injuries can cause physical, emotional, and thinking symptoms. Therapies are recommended to help address the symptoms of a brain injury. In addition to therapies, there are some things that youcan do to help with the recovery. Things you can do for brain health include: a balanced diet with plenty of fruits, vegetables, protein and whole grains. a good night of sleep staying well hydrated with water decreasing likelihood of re-injury by limiting activity that has a high risk of head injury avoiding alcohol or recreational drugs. decreasing stress balancing rest with activity, exercise can be beneficial but should be limited to low risk activities until cleared by your provider. You should limit exercise and discuss with your provider if it causes your symptoms to increase. Do not engage in any activities that put you at risk for hitting or being hit in the head A general rule of thumb is to avoid sports with any flying objects or those that require feet to beoff the ground. This includes, but is not limited to: -Biking -Swimming -Soccer -Football -Basketball -Baseball -Volleyball -Frisbee/Disc Golf -Golf -Tennis/Badminton -Lacrosse -Rugby -Heights/Ladders -Zipline/Ropes course -Horseback riding -Skiing (water, downhill, or crosscountry) -Rollerblading or skateboarding Some exercise is okay, please consult with your provider to determine activity that is safe to return to Brain Healing While the majority of brain healing typically occurs in the first 3 months, it can take up to a year for the brain to heal. Due to this, toxins to the brain (such as Alcohol) should be avoided duringthis time. Alcohol is bad for your brain and affects healing and recovery of your brain. Other substances such as Marijuana and Tobacco can also negatively affect the brain. If you need paperwork completed, please allow 5-7 business days for completion. Paperwork cannot befilled out same day or next day. Please plan ahead. Paperwork can be faxed to [phone]. Brain Injury and Physical Medicine & Rehabilitation Contact List Lista de contactos de lesiones cerebrales traum??rochelle, medicina f??gricelda y rehabilitaci??ora Ibrahim Maskxada jenn Jiménez & Shea Phone To Schedule Appointments Para programar citas Hadii aad dooneeyso inaad norman sameeysato They make appointments for your doctor in the TBI/PMR clinic and your therapists [phone] Staff Nurse Nicolas carney??kirti Davalos Call for questions about medications, symptoms, or paperwork issues You can fax paperwork to [phone]. [phone] Health Information Management (HIM)/Medical Records Registros medicos Ashu Holloway Contact them if you need copies of your medical records at [facility]. If you work with a [facility] they shouldcontact [facility] for their updates. You can also visit them on Blue 1. They are open Sunday-Sunday. If you need a form for Authorization to Release Health Information, you may request one at an appointment or download a form online at: [email or web address] [phone] Patient Billing/ Financial Assistance Facturaci??n Ellie Saunders/Meli duran If you have questions or problems with your medical bills. Financial assistance, insurance issues, or for more information about your medical bill. [phone] Community Resources: The [place] [facility] offers resource facilitation at braininjurymn.org/resource-facilitation/index.php. Online courses are also offered in brain injury basics, adjustment, and caregiving at braininjurymn.org/education/BIBasics.php Alternative Sleep Treatments After a TBI, people can experience difficulty sleeping. Sometimes over the counter supplements can help with sleep. Below are some sleep supplements you may try: Melatonin (1mg - 3mg). This can also be found in an extended release or in combination with other natural supplements. Melatonin is available in a pill form, oil, or gummies. L-Theanine: This can be found as a single supplement or in combination with melatonin. It is NOT recommended that you use OTC antihistamines to help with sleep. Diphenhydramine and doxylamine should be avoided and are frequently found in OTC sleep aids. Common names of sleep aids to avoid are Tylenol PM, Advil PM, Benedryl, Unisom, and Zzzquil. You may also try using essential oils to help sleep. Lavender is commonly used. Good Sleep Hygiene Many people with traumatic brain injury (TBI) suffer from sleep related difficulties. This can include difficulty with falling asleep or staying asleep. Good sleep hygiene can help to improve sleep. Follow the tips below. Get a Routine Set an alarm clock and try to wake up at the same time every day. Also try to go to bed at the sametime. Make a bedroom routine which generates a calm and peaceful environment such as playing soft music in your bedroom while getting ready for bed, taking a warm bath or shower, or drinking non-caffeinated tea. Follow the Rule of 15 If you are not asleep within 15 minutes, then get out of bed and find something else to do that will make you feel relaxed, such as reading a book, listening to soft music or browsing through a magazine to take your mind off worries about sleep. If possible, do this in another room. Avoid caffeine, nicotine, and alcohol Avoid these substances at least 4-6 hours before bedtime. Lots of people think alcohol helps sleep,but it disturbs the quality of sleep. Bed is for sleeping Use your bed only for sleep and sex; do not read, write, eat, watch TV, or use your phone while in bed. Exercise Regularly Exercise helps to fall asleep and deepen sleep, but get your exercise at least 2 hours before bedtime. Try to get some sunlight from daytime outdoor activities. Avoid a heavy meal before bedtime Allow time to digest, but also do not go to bed hungry. A light snack such as 1/2 bagel, 2 slices of turkey, a banana, 8oz of glass of warm or cold milk, or a small cup of chamomile or non-caffeinated tea may help sleep. Make a good sleep environment Avoid bright lights. Do not leave a TV on. Make your bedroom quiet, dark and slightly cool. Remove clocks and tech devices from view, and keep it clean and clutter-free. Avoid looking at the clock. One suggestion would be to cover the clock or move it so that you cannot see it but can hear the alarm. Do not take your problems to bed Plan on leaving some extra time earlier in the evening to work through your worries, or to plan thenext day's activities. If you have difficulty shutting down your thoughts or a tendency to worry excessively, try keeping a journal of your thoughts and worries. Set aside time during the day to dothis so that you get into a habit. Avoid journaling in the bedroom. Avoid Napping During the Day Avoid taking naps during the day as this will decrease your ability to naturally fall asleep at your desired bedtime and contribute to shallow (non-restful) sleep. If you have any questions, please call the TBI nurse at . ER CHEF documented in this encounter Progress Notes * Leidy Velazquez PA-C - 11/27/2023 1:00 PM CST [place], [place] [id number] [place] [address]#: [id number] PATIENT: Lucinda Casas : 1940 DATE OF SERVICE: 11/27/2023 PHYSICAL MEDICINE AND REHABILITATION CLINIC INITIAL CLINIC VISIT Assessment/Plan: Mild traumatic brain injury, with loss of consciousness of 30 minutes or less, initial encounter () With SAH, SDH Reversed sleep wake cycle Lack of Appetite Traumatic brain injury. The pathophysiology and prognosis of the traumatic brain injury were explained to patient- and daughter also present. Injury prevention education including the dangers of recurrent brain injury were also explained. Informational handouts provided. PLAN: Sleep Impairment/Reversed sleep wake cycle: Longstanding issue prior to fall. Daughter who is present during visit explains prior to the accident, the patient has been exhibiting signs of dementia. Recommended PCP follow-up to address options. Lack of Appetite: Multifactorial etiology--patient describing hating food in TCU and wants to go home. Recommended PCP follow-up to address options. Return to clinic: follow up PRN as minimal symptoms attributed to mild TBI and family preference aspatient very anxious during drive to clinic. Advised to call the clinic with any questions/concerns. With above plan and recommendations, expected prognosis for improvement in level and quality of functional participation is Minimal symptoms due to mild TBI, most likely continued symptoms due to dementia. Total time spent on this encounter, including pre-visit review of separately obtained history, [id number] interaction performing medically appropriate physical exam, patient counseling/education, interpretation of diagnostic results, care coordination and documentation was 87 minutes. Chief Complaint and History of Present Illness: HISTORY OF PRESENT ILLNESS: This is an initial clinic visit for this 83 y.o. female for evaluation of their traumatic brain injury. Total time spent on this encounter, on the date of service, including pre-visit review of separately obtained history, [id number] interaction performing medically appropriate physical exam, patient counseling/education, interpretation of diagnostic results, care coordination and documentation. External records reviewed through care everywhere, [facility] documentation reviewed for information regarding injury. History collected through review of records, in addition to patient report. The patient suffered their injury on 11/04/23 Fall with SAH & SDH-- was admitted to [facility] 4after being found unconscious at the bottom of a flight of stairs, presumably due a fall. GCS 14 upon presentation. She was found to have TBI with SDH of the R>L tentorial leaflets and R cerebral convexity, scattered SAH, L periventricular hemorrhage, and a small L frontal IPH. Injuries were non- operatively managed, with a repeat CT head stable. +LOC brief. GCS 14. CT Head: 1. Stable to perhaps minimally increased size of subdural hemorrhage along the falx and tentorial leaflets when compared to the head CT from approximately 6 hours earlier. Stable subdural hemorrhage along the right cerebral convexity. 2. Several new areas of subarachnoid hemorrhage. 3. Stable left periventricular hemorrhagic about the caudate nucleus and small intraparenchymal hemorrhage in the left frontal white matter. F/U CT Head: Stable head CT as compared to the study performed 7 hours earlier. -During her hospital course she has had ongoing confusion and impulsivity, and is currently prescribed Depakote. Became restless overnight 11/06-11/07 and was given zyprexa, more somnolent 11/07 especially in the AM, suspected to be related to zyprexa. 11/08 remains quite lethargic, level of alertness limiting ability to participate with therapies. Now with improved level of alertness, progressing with therapies. Remains below her functional baseline with regard to mobility, self care, cognition. Discharged to TCU 11/16/23 F/U with PCP 11/29/23 See documentation for care previously provided for this injury: ED to Hosp- Admission (Discharged) with Gregg Dexter MD; Devin Dougherty MD; Quinn Covarrubias MD (11/04/2023) No linked episodes Phase Status (must complete) Brain Injury Status: BI Consultation (11/27/2023 1:00 PM) Visit Type Visit Type: Initial (11/27/2023 1:00 PM) Neurobehavioral Symptom Inventory Please rate the following symptoms with regard to how much they have disturbed you IN THE LAST 2 WEEKS The purpose of this is to track symptoms over time, please do not attempt to score. 0 = Rarely if ever present; not a problem at all 1 = Mild - Occasionally present, but it does not disrupt my activities; I can usually continue whatI'm doing; doesn't really concern me. 2 = Moderate - Often present, occasionally disrupts my activities; I can usually continue what I'm doing with some effort; I feel somewhat concerned 3 = Severe - Frequently present and disrupts activities; I can only do things that are fairly simple or take little effort; I feel I need help. 4 = Very Severe - almost always present and I have been unable to perform at work, school or home due to this problem; I probably cannot function without help. Pre-existing = this problem was present before my injury Symptoms Comments Feeling dizzy: 0 (11/27/23 1300) Loss of balance: 1 (11/27/231299) Poor coordination, clumsy: 1 (11/27/231299) Headaches: 1 (11/27/231299) Nausea: 0 (11/27/231299) Vision Problems, blurring, trouble seeing : 0 (11/27/231299) Sensitivity to light: 0 (11/27/231299) Hearing difficulty: 0 (11/27/231299) Sensitivity to noise: 0 (11/27/231299) Numbness or tingling on parts of my body: 0 (11/27/231299) Change in taste and/or smell : 0 (11/27/231299) Loss of appetite or increased appetite : 1 (11/27/231299) and daughter reporting patient does not want to eat since admitted to the TCU. Poor concentration, can???t pay attention, easily distracted : 1 (11/27/231299) Forgetfulness, can???t remember things : 1 (11/27/231299) Difficulty making decisions: 1 (11/27/231299) Slowed thinking, difficulty getting organized, can???t finish things : 1 (11/27/231299) Fatigue, loss of energy, getting tired easily : 2 (11/27/231299) Due to lack of sleep Difficulty falling or staying asleep : 3 (11/27/231299) Normal routine prior to accident is staying up all night and sleeping during the day, mixed up sleep cycle Feeling anxious or tense: 1 (11/27/231299) Feeling depressed or sad: 1 (11/27/231299) Irritability, easily annoyed: 1 (11/27/231299) Poor frustration tolerance, feeling easily overwhelmed by things : 1 (11/27/231299) Total NSI score (out of 88):: 17 (11/27/231299) (adapted from HARRIS To: J Head Tr Rehabil 1995; 10(3):1-17) Have you had any thoughts of hurting your self or thoughts of suicide? []YES [x]NO Patient's primary symptoms of concern: and daughter attending appointment today, worried about patient's lack of appetitie. Daughter explained patient had been exhibiting dementia symptoms prior to the fall. Sexual health: does not report concerns regarding intimacy or sexual health. Review of Systems: A total of 10 systems is reviewed. Pertinent positives are in the history of present illness. All other systems are otherwise negative. PAST MEDICAL HISTORY: Reviewed active problem list and medication list for accuracy, see below. *HTN, HLD, DM II History of TBI: No Diagnosed learning disability: No Current therapies: PT and OT at the TCU Patient Active Problem List Diagnosis Fall, initial encounter Current Outpatient Medications Medication Sig Dispense Refill losartan (COZAAR) 25 mg oral TABS Take 1 tablet (25 mg) by mouth twice daily. venlafaxine (EFFEXOR XR) 75 mg oral capsule 24 H Take 3 capsules (225 mg) by mouth daily. acetaminophen (TYLENOL) 325 mg oral tablet Take 2 tablets (650 mg) by mouth every 6 hours as neededfor Mild Pain. amLODIPine (NORVASC) 5 mg oral TABS Take 1 tablet (5 mg) by mouth daily. carvedilol (COREG) 6.25 mg oral TABS Take 1 tablet (6.25 mg) by mouth twice daily. divalproex sodium (DEPAKOTE SPRINKLES) 125 mg oral CSDR Take 2 capsules (250 mg) by mouth twice daily. melatonin 3 mg oral tablet Take 1 tablet (3 mg) by mouth at bedtime. potassium chloride (K-DUR) 20 meq oral tablet Take 2 tablets (40 mEq) by mouth daily. sennosides-docusate sodium (STOOL SOFTENER/LAXATIVE) 8.6-50 mg oral tablet Take 1 tablet by mouth twice daily as needed for Constipation. allopurinol (ZYLOPRIM) 100 mg oral TABS Take 0.5 tablets (50 mg) by mouth daily. metFORMIN (GLUCOPHAGE) 500 mg oral TABS Take 1 tablet (500 mg) by mouth twice daily. chlorthaLIDONE (HYGROTON) 25 mg oral TABS Take 1 tablet (25 mg) by mouth daily. rosuvastatin (CRESTOR) 20 mg oral tablet Take 1 tablet (20 mg) by mouth daily. No current facility-administered medications for this visit. ALLERGIES: Allergies Allergen Reactions Latex Other (see comments) Topiramate Other (see comments) and Hallucinations Adhesive Tape Unknown Morphine Unknown Silicone Rash FAMILY HISTORY: Reviewed. SOCIAL HISTORY: Family is supportive. [facility] residing [facility] 11/16/23 Relationship: Sexuality and Intimacy: No concerns Employment Status: Retired Driving: No longer driving Education: Some College Current substance use: None Legal/Workers Compensation: No Anabaptism or cultural preference: No Stress Level: High-not at home Financial concerns: No Hobbies/recreation: Watch TV Occupational History Not on file Tobacco Use Smoking status: Not on file Smokeless tobacco: Not on file Substance and Sexual Activity Alcohol use: Not on file Drug use: Not on file Sexual activity: Not on file Social History Narrative Not on file MPAI4- Current Encounter No data found in the last 1 encounters. Physical Exam: BP 108/71 Pulse 74 Wt 61.6 kg (135 lb 12.8 oz) BMI 28.38 kg/m?? General: The patient is a well-nourished, well groomed female who appears stated age. Mental status: Flat affect Neurologic: Overall, fund of knowledge, insight, and judgment are poor. Soft Speech. Cranial nervesII-XII intact. Deferred romberg and tandem walk. Rises easily from seated position, gait within normal limits. 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
--- OUTSIDE RECORDS SUMMARY | 2023-12-10 00:55 | XMS_ITS | Encounter Summary ---
Author Name Unknown Organization [facility] Address [address] [place] [address] Phone Care Team Providers Care Medical Examiner Name Role Phone Eloise Reeves DO Primary Care Provider Reason for Referral * Consult/Test/Treat (Routine) - Closed Specialty Diagnoses / Procedures Referred By Selma bhandari Referred To Contact Physical Medicine and Rehab / PHYSICAL MEDICINE AND REHAB Diagnoses Fall, initial encounter SDH (subdural hematoma) ([facility]) SAH (subarachnoid hemorrhage) ([facility]) Traumatic brain injury with loss of consciousness, initial encounter ([facility]) Jesusita Aiken APRN, GLASS BLOWER HELPER [address] [place] [address] [facility]R Cl [address] [address] Referral ID Status Reason Start Date Expiration Date Visits Re quested Visits Authorized [id number] Closed 11/08/2023 11/07/2024 1 1 EGLASS GUN HAND Reason for Visit * Reason Comments Fall * Auth/Cert (Routine) Specialty Diagnoses / Procedures Referred By Contjerrod t Referred To Contact SURGERY Diagnoses SDH (subdural hematoma) ([facility]) Fall, initial encounter Tariq Bobo MD [address] [facility] [id number] [place] [address] [address] [place] [address] Referral ID Status Reason Start Date Expiration Date Visits Re quested Visits Authorized [id number] 1 1 Encounter Details Date Type Department Care Team (Latest Contact Info) Description 11/04/2023 10:39 PM FIBREGLASS GUN HAND - 11/16/2023 9:19 AM FIBREGLASS GUN HAND Hospital Encounter [facility] Surgery/Trauma/Kimmie ro [address] [place], [place] [id number] Devin Dougherty MD [address] [facility] [place] [address] Quinn Covarrubias MD [address] [place] [address] Gregg Dexter MD [address] [facility] [address] [place] [address] Fall, initial encounter Discharge Disposition: Discharged/transd to SNF with Medicare certification Social History Tobacco Use Types Packs/Day Years Used Date Smoking Tobacco: Never Assessed Humiliation, Afraid, Rape, and Kick questionnair e [...] Coronavirus/COVID-19? No / Unsure 11/04/2023 10:48 PM FIBREGLASS GUN HAND documented as of this encounter Last Filed Vital Signs Vital Sign Reading Time Taken Comments Blood Pressure 148/51 11/16/2023 4:25 AM FIBREGLASS GUN HAND Pulse 61 11/16/2023 4:25 AM FIBREGLASS GUN HAND Temperature 36.6 ??C (97.8 ??F) 11/16/2023 4:25 AM CS T Respiratory Rate 16 11/16/2023 4:25 AM FIBREGLASS GUN HAND Oxygen Saturation 90% 11/16/2023 4:25 AM FIBREGLASS GUN HAND Inhaled Oxygen Concentration - - Weight 69.7 kg (153 lb 10.6 oz) 024 12:03 AM FIBREGLASS GUN HAND Height 147.3 cm (4' 10) 11/05/2023 12: 03 AM FIBREGLASS GUN HAND Body Mass Index 32.12 11/05/2023 12:03 AM FIBREGLASS GUN HAND documented in this encounter Discharge Summaries * Gregg Dexter MD - 11/16/2023 6:55 AM CST TRAUMA DISCHARGE SUMMARY - PGY 1 Lucinda Kennedy : 1940 Sex: female Date of Admission: 11/04/2023 Date of Discharge: 11/16/2023 Disposition: Long-term rehab Primary care physician: Eloise Reeves DO Attending Staff: Quinn Covarrubias MD Significant physician provider(s): [facility]/ Trauma team ( Dr. Enrique); Neurosurgery ( Hernandez Mathur MD); palliative care; Physical Medicine and Rehab Allergies Allergen Reactions Adhesive Tape Unknown Morphine Unknown ADMISSION DIAGNOSIS: Fall SDH SAH Periventricular hemorrhage TBI DISCHARGE DIAGNOSIS (include any new and/or incidental findings): Principal Problem: Fall, initial encounter SDH SAH Periventricular hemorrhage TBI Resolved Problems: * No resolved hospital problems. * Incidental Findings: Several sub-5 mm pulmonary nodules are noted. If considered high risk, can consider additional follow-up CT in 12 months to document stability. Colonic diverticulosis without evidence of acute diverticulitis. Operations/Procedures: None HOSPITAL COURSE: Lucinda Kennedy is a 83 y.o. female with PMH of HTN, HLD, DM II who was admitted 11/04/23 after a fall at home. Per report, patient was found at the bottom of the stairs by her . Imaging notable for below listed injuries which were nonoperatively managed. . Neurosurgery consulted. CT head-neck angio showed increased SDH. Repeat HCT ON 11/05/23 showed stable head bleeds. Trauma tertiary exam completed. No new findings. Hospitalization complicated by increased BP requiring a Clevidipine drip and IV hydralazine and labetalol for blood pressure control - now discontinued with BP controlled by PO meds. Depakote started due to confusion and impulsivity. Seen by PT & OT and post-acute placement recommended. Evaluated by Physical Medicine and Rehab determined to be a good fir for [facility] inpatient acute rehab but after 1-2 weeks of therapy she wouldstill need 24/ observation. Due to her insurance it does not pay for a tcu after [facility] rehab. The family chose to discharge to a TCU as the best plan for Clarissa. At the time of discharge pt's pain was well controlled on PO pain medications, ambulating with FWW w/out difficulty, tolerating PO intake w/o N/V, voiding w/out difficulty, and bowel function present. Follow up in neurosurgery clinic PRN Current known injuries: SDH along the posterior falx, right greater than left tentorial leaflets and right cerebral convexity SAH along the left frontoparietal regions near the vertex and the left ambient cistern. left periventricular hemorrhage about the caudate nucleus. TBI PENDING TESTS RESULTS: none PHYSICAL EXAMINATION: BP (!) 179/60 Comment: PRN labetalol provided. Pulse 74 Temp 35.8 ??C (96.4 ??F) (Axillary) Resp 17 Ht 1.473 m (4' 10) Wt 69.7 kg (153 lb 10.6 oz) SpO2 97% BMI 32.12 kg/m?? Estimated body mass index is 32.12 kg/m?? as calculated from the following: Height as of this encounter: 1.473 m (4' 10). Weight as of this encounter: 69.7 kg (153 lb 10.6 oz). Physical Exam Vitals and nursing note reviewed. Constitutional: General: She is not in acute distress. Appearance: Normal appearance. She is well-developed. HENT: Head: Normocephalic and atraumatic. Eyes: General: No scleral icterus. Conjunctiva/sclera: Conjunctivae normal. Cardiovascular: Rate and Rhythm: Normal rate and regular rhythm. Heart sounds: Normal heart sounds. No murmur heard. No friction rub. No gallop. Pulmonary: Effort: Pulmonary effort is normal. No respiratory distress. Breath sounds: Normal breath sounds. No wheezing or rales. Musculoskeletal: Right lower leg: No edema. Left lower leg: No edema. Skin: General: Skin is warm and dry. Coloration: Skin is not jaundiced or pale. Neurological: Mental Status: She is alert. Lift Truck Operator Needed: no PLANNED DISCHARGE ORDERS: Suture/Miguel: None Wound Care Plan: Not applicable Drains Present: None Lines: None Activity Limitations: no restrictions Anticoagulation Plan: none RECOMMENDATIONS AND FOLLOWUP: Trauma/Surgery: no follow up required Neurosurgery: Follow up in NSGY clinic PRN Primary Care Physician: Follow up in 1-2 weeks after discharge Referrals: Traumatic Brain Injury: TBI Clinic READMISSION PLANNED WITHIN 30 DAYS OF DISCHARGE? No Consultants: Not applicable DISCHARGE ORDERS REFERRAL TO TRAUMATIC BRAIN INJURY Why you were at the hospital: Order Notes You were in the hospital after a fall where you sustained the following injuries: 1. Subdural hematoma along the posterior falx, right greater than left tentorial leaflets and rightcerebral convexity 2. Subarachnoid hemorrhage along the left frontoparietal regions near the vertex and the left ambient cistern. 3. left periventricular hemorrhage about the caudate nucleus. 4. Traumatic Brain injury When should I be concerned? Order Notes Go to the Emergency Department or call 911 IF: -- you have redness, swelling, or severe pain in one or both of your legs -- you have chest pain or shortness of breath Clinic hours (8AM - 4:30PM, M-F): Call the Surgery Clinic at [phone] After hours or on Holidays: Call the [facility] crawler tractor operator . Ask the crawler tractor operator to page the general surgery resident long chain dyeing machine operator. IF: -- you feel you are getting worse or having an increase in problems -- you have new, increased, or different drainage from your incision -- your incision has any signs of infection (increasing redness, swelling, tenderness/pain, warmth,change in appearance) -- your temperature is higher than 101.5 F. (taken by mouth) and lasts more than 12 hours -- you have a lot of vomiting or diarrhea (loose watery stools) - especially if your are unable to keep your medicines down -- you have no stool in 3 days -- you do not urinate for 8-12 hours or the urine is very dark -- you have any other concerns It is normal to have: -- a small amount of bleeding from your incision the first few days -- pain, bruising, and swelling under the incision -- numbness of the skin around your incision. -- a small fever -- mild nausea Traumatic Brain Injury: When To Call: Order Notes Occasionally, someone with a Traumatic Brain Injury can have problems even after leaving the hospital. Those who had bleeding in their brain or a more severe brain injury are at a greaterrisk of having complications. It is important for anyone with a recent brain injury, as well as hisor her caregivers, to know what to look for and know when to get help if something is wrong. Get immediate medical attention if any of these symptoms are present after a TBI: - Sudden severe headache, the worst headache ever - Throwing up that won't stop - Seizures or convulsions: violent shaking and loss of control - Sudden change in vision: blurry or seeing two things instead of one - One or both pupils getting larger: a pupil is the dark [place] in the center of the eye - Slurred speech or can't speak - Can't move one side of the body - So sleepy you won't wake up - Severe confusion, agitation, or restlessness - Losing consciousness - Trouble walking or uncoordinated - Trouble breathing - Clear fluid draining from your ears or nose, salty taste in the back of your throat If you or your loved one are having any of the above problems, it is often helpful to return to [facility] to be evaluated. If you live far away or are in extreme distress (i.e cannot breathor won't wake up), call 911 and first responders can decide which hospital is best. If you have any questions about your or your loved one's condition after discharge, call [phone] to speak with a nurse. Please contact your primary care provider as needed. Order Notes Please contact your primary care provider as needed. Recommendations for the Outpatient Provider: Order Notes Specific recommendations to be addressed at the follow up visit: blood pressure. Medications adjusted due to high BP while inpatient Please review these medications with the patient to determine the plan for them: 1. Losartan 2. Coreg 3. Chlorthalidone Up with assistance activity level. Order Notes -- Remember to have someone near by or with you when you are walking, showering or bathing. -- Slowly return to your usual level of activity. -- Rest is an important part of healing. Save your energy by spreading out activities that make youtired. Regular diet Order Notes -- Eat a wide variety of foods, including fruits and vegetables, dairy, grains and meats. Take your medicine and plan ahead for refills Order Notes - It is important that you take the medicines on your list. Work with your health care provider or pharmacist if you have questions about your medicine. - Plan ahead and use the Refill Line so that you don't run out of your medicine. It may take time to review your chart and get the medicine ordered. Prescribed narcotic pain medicine Order Notes What You Should Know About Opioid (Narcotic) Medicine: -- Your healthcare provider ordered an opioid (narcotic) medicine to treat your pain. -- The goal of your opioid medicine is NOT complete removal of pain. -- The goal is to provide for you a safe and functional life. -- Since opioids do not take away all of your pain, we will tell you of other ways you can control your pain along with the opioid medicine. -- Important information when you are taking opioid medicine: -- It is illegal to drive when you are taking opioid medicine. Even if your doctor told you to takeopioids, you cannot drive. -- This medicine may affect your ability to focus and carry out important activities such as work or parenting. -- Do NOT operate mechanical equipment while taking pain medicines that impair your judgment. -- Do not drink alcohol while using any pain medicine. -- This medicine and all medicines should be kept in a safe place to avoid the risk of theft. -- Keep all medicines, especially opioids, out of the reach of children. -- Constipation is common when taking opioids. Your doctor may order medicine to help with constipation. -- Taking opioid medicine consistently over time may make your body dependent on it. -- If this happens, the medicine should be slowly decreased by your doctor and not stopped suddenly. -- If you stop taking your opioid medicine suddenly, you may feel a flu-like illness. Acetaminophen (Tylenol) Safety Order Notes -- Read all labels for prescription and [id number]-upx-tomvmun medicines. Ask the pharmacist if your prescription pain medicine contains acetaminophen. -- Do not take more than one medicine that contains acetaminophen at a time. -- Do not take more of an acetaminophen-containing medicine than directed by your provider. Adults should not take more than 2 tablets at a time and no more than 3000 mg in a 24 hour period. For children, see label or package information or ask a pharmacist, and do not give more than 5 doses in 24 hours. -- Do not drink alcohol when taking medicines that contain acetaminophen. -- Stop taking your medication and seek medical help immediately if you: ---- Think you have taken more acetaminophen than directed ---- Have an allergic reaction such as swelling of the face, mouth, and throat, difficulty breathing, itching, or rash Medication List ASK your doctor about these medications allopurinol 100 mg Tabs Commonly known as: ZYLOPRIM chlorthaLIDONE 25 mg Tabs Commonly known as: HYGROTON losartan 25 mg Tabs Commonly known as: COZAAR metFORMIN 500 mg Tabs Commonly known as: GLUCOPHAGE rosuvastatin 20 mg tablet Commonly known as: CRESTOR venlafaxine 75 mg Capsule 24 h Commonly known as: EFFEXOR XR Discussed diagnosis and treatment plan with the patient. Patient verbalized understanding of condition and treatment plan. Juan Loera MD, 11/16/2023 6:54 AM FACULTY NOTE I saw and evaluated the patient on the date of the resident's note. I discussed with the resident and agree with the resident???s findings and plan documented in the resident???s note from above. Anyrevisions by me are documented. Gregg Dexter MD, 11/16/2023 8:18 AM EGLASS GUN HAND documented in this encounter Discharge Instructions * Discharge Instr - Speech Language Pathology* Nayeli Alvarado SLP [facility] - 11/15/2023 4:39 PM FIBREGLASS GUN HAND Speech-language pathologists (ocean lifeguard) assess and treat speech, language, cognition (thinking) and swallowing disorders in children and adults. Cognitive Linguistic Discharge Instructions You were seen by our service during your hospital admission due to concerns about your cognition related to your traumatic brain injury. Results: Results from cognitive testing revealed adequate word finding, however you had some difficulties with orientation, attention, memory, and executive functioning (planning/reasoning/judgement). We recommend speech-language therapy to address these areas of difficulty. Recommendations: At this time, we recommend you: Receive assistance with higher level tasks such as managing medications, finances/bills, etc. Use organizational systems such as calendars/planners for appointments, notepad for lists/notes, and a pill organizer for medication management. Limit distractions. Do one thing at a time - do not multi-task. Break tasks into smaller steps. Follow-up: You will continue to be followed by Speech Pathology for ongoing evaluation and treatment at your discharging facility. If you have any questions: contact your primary Speech-Language Pathologist directly or call [phone]. EGLASS GUN HAND documented in this encounter Medications at Time of Discharge Medication Sig Dispensed Refills Start Date End Date losartan (COZAAR) 25 mg oral TABS Take 1 tablet (25 mg) by mouth twice daily. 11/13/2023 venlafaxine (EFFEXOR XR) 75 mg oral capsule 24 H Take 3 capsules (225 mg) by mouth daily. 11/14/2023 acetaminophen (TYLENOL) 325 mg oral tablet Take 2 tablets (650 mg) by mouth every 6 hours as needed for Mild Pain. 11/13/2023 carvedilol (COREG) 6.25 mg oral TABS Take 1 tablet (6.25 mg) by mouth twice daily. 11/13/2023 divalproex sodium (DEPAKOTE SPRINKLES) 125 mg oral CSDR Take 2 capsules (250 mg) by mouth twice daily. 11/13/2023 melatonin 3 mg oral tablet Take 1 tablet (3 mg) by mouth at bedtime. 11/13/2023 potassium chloride (K-DUR) 20 meq oral tablet Take 2 tablets (40 mEq) by mouth daily. 11/14/2023 sennosides-docusate sodium (STOOL SOFTENER/LAXATIVE) 8.6-50 mg oral tablet Take 1 tablet by mouth twice daily as needed for Constipation. 11/13/2023 allopurinol (ZYLOPRIM) 100 mg oral TABS Take 0.5 tablets (50 mg) by mouth daily. metFORMIN (GLUCOPHAGE) 500 mg oral TABS Take 1 tablet (500 mg) by mouth twice daily. chlorthaLIDONE (HYGROTON) 25 mg oral TABS Take 1 tablet (25 mg) by mouth daily. rosuvastatin (CRESTOR) 20 mg oral tablet Take 1 tablet (20 mg) by mouth daily. amLODIPine (NORVASC) 5 mg oral TABS Take 1 tablet (5 mg) by mouth daily. 11/14/2023 11/27/2023 documented as of this encounter Progress Notes * Cornell Solomon RN - 11/16/2023 9:18 AM CST DISCHARGE NOTE D: Patient has been discharged. A: (As documented in the Discharge Planning Flowsheet) Discharge Instructions (AVS): AVS given Discharge clothing/valuables: has adequate clothing Discharge medications: no prescriptions (SNF) Home equipment status: no equipment needed Home equipment/supplies recommended: none Final discharge destination: Subacute assisted with rehab care R: The patient and family understood the AVS. P: Support patient and family if they call back with questions. Cornell Solomon RN, 11/16/2023 9:19 AM EGLASS GUN HAND * Carolina Awan RN - 11/16/2023 2:30 AM CST Entered chart to leave staff to staff regarding pt's d/c ride in the AM Carolina Awan RN, 11/16/2023 2:30 AM EGLASS GUN HAND * Sinai Brady PA-C - 11/15/2023 3:50 PM CST Physical Medicine & Rehabilitation Follow-Up Lucinda Kennedy : 1940 Sex: female Patient states she is doing okay, no new complaints/concerns. Up in chair and enjoying some ice cream Exam: Vitals: BP 140/60 (Cuff Location: Left Arm) Pulse 71 Temp 35.8 ??C (96.5 ??F) (Tympanic) Resp18 Ht 1.473 m (4' 10) Wt 69.7 kg (153 lb 10.6 oz) SpO2 90% BMI 32.12 kg/m?? Gen: no acute distress Pulm: breathing comfortably on room air Abd: non distended Neuro: moves 4/4 extremities, answers simple questions appropriately Psych: calm, appropriate mood and affect Skin: warm and dry Impression: Lucinda Kennedy is a 83 y.o. right hand dominant female with chronic medical conditions including HTN, DM II, and HLD, who was admitted to [facility] 11/04/2023 after being found unconscious at the bottom of a flight of stairs, presumably due a fall. GCS 14 upon presentation. She was found to have TBIwith SDH of the R>L tentorial leaflets and R cerebral convexity, scattered SAH, L periventricular hemorrhage, and a small L frontal IPH. Injuries were non- operatively managed, with a repeat CT head stable. She was started on Keppra for seizure prophylaxis, required a Clevidipine drip for blood pressure control - now discontinued. During her hospital course she has had ongoing confusion and impulsivity, and is currently prescribed Depakote. Became restless overnight 11/06-11/07 and was given zyprexa, more somnolent 11/07 especially in the AM, suspected to be related to zyprexa. 11/08 remains quite lethargic, level of alertness limiting ability to participate with therapies. Now with improved le federico of alertness, progressing with therapies. Remains below her functional baseline with regard to mobility, self care, cognition. Tolerating regular diet with thin liquids. Rehab Dx: traumatic brain injury Recommendations: Continue PT to address balance, mobility, gait, transfers, safety Continue OT to address self care, ADL's, adaptive equipment Continue PIN SORTER AND BAGGER to address speech, swallow, communication, cognition Regarding disposition: recommend ongoing rehabilitation in the TCU setting for longer rehabilitation course, after further discussion with family 11/14, family unable to provide 24h care at home. Appreciate ongoing efforts toward placement. Chart review suggests TCU has been found, with plan for d/ctomorrow 11/16. We will continue to follow and update recommendations as appropriate. Thank you for involving us inthis patient's care. Please feel free to page me with questions/concerns. Parts of this note have been dictated using [employer] dictation software. Please excuse any weight loss sales consultant errors and feel free to contact me regarding such errors or confusion regarding intended message. Sinai Brady PA-C, CBIS Pager via [employer] EGLASS GUN HAND * Nayeli Alvarado, PIN SORTER AND BAGGER [facility] - 11/15/2023 2:49 PM CST Speech-Language Pathology Progress Note 11/15/2023 PIN SORTER AND BAGGER Recommendations Discharge Recommendations (PIN SORTER AND BAGGER): Post-acute placement recommended. Acute Rehab if meets admission criteria No known barriers to placement Barriers to Discharge (PIN SORTER AND BAGGER): NA - Post acute placement is recommended and no barriers to placement known. Post Discharge follow-up (PIN SORTER AND BAGGER): PIN SORTER AND BAGGER at post-acute placement Recommend PM&R Consult (PIN SORTER AND BAGGER): Yes, for assessment of post-acute placement needs. Pt appears to be a candidate for higher intensity rehab services. Diet Recommendation: Current Diet : Regular Current Liquid: Thin liquids Medication Administration: Medications with thin liquid Aspiration Precautions: Upright with all eating and drinking Oral Hygiene: [place] teeth 2x/day Positioning Techniques: Seat fully upright and midline when eating Supervision Needed: Independent Instrumental Assessment Needed: No Additional Referrals Needed: None Problem: Cognitive-Linguistic Deficit (Acute) Goal: Complete cognitive linguistic assessment Description: Patient will complete assessment of cognitive-linguistic abilities to determine rehab needs. Outcome: In progress Pt was seen this PM for ongoing dx tx of cognitive-linguistic abilities. She was alert and pleasant, but confused/forgetful during the session. The Orientation Log (O-Log) 0 What city is this? [address]? 0 What is the name of the hospital? 0 What the month? 0 What is the date? 3 What is the year? 0 What day of the week is it? 3 What is the time right now? 3 What brought you to the hospital? 1 What kind of injuries did you have? 11 TOTAL score (out of 30) A score of 25 or higher in 2 consecutive days whitley the end of posttraumatic amnesia Chavez: 3 = spontaneous/free recall 2 = logical cueing 1 = multiple-choice, phonemic cueing 0 = unable, incorrect, inappropriate *Clock time can be corrected to within 30 minutes (??) patients are allowed to look at a clock without penalty http://www.tbims.org/combi/olog/ologsyl.html Remaining portions of the Ross Information Processing Assessment were administered. RIPA: Remote Memory: (07/28) Severe Deficit (20-0) Temporal Orientation: (15) Severe Deficit (20-0) Spatial Orientation: (2030) Severe Deficit (20-0) Orientation to Environment: (16) Severe Deficit (20-0) Recall of General Info: () Severe Deficit (20-0) Auditory Processing: () Moderate Deficit (21-25) Delirium Assessment - CAM Short (Confusion Assessment Method) Acute onset OR fluctuating course: No Inattention: Yes Disorganized Thinking: No Altered level of consciousness: No CAM result: Negative Time of Encounter: 1440 Treatment Time: 31 minutes Pain: 6/10 (headache) Barriers to Learning: Cognitive linguistic deficit, Treatment Diagnosis: Cognitive communication deficit R41.841, Treatment Type:Cognitive-linguistic Treatment (38617, 68298) Treatment Frequency: 2-3x per week CLINICAL IMPRESSIONS Patient presents with severe cognitive-linguistic deficits in areas of attention, working, short-term, and long-term memory, problem solving, reasoning, processing speed, and executive functioning secondary to SDH of the R>L tentorial leaflets and R cerebral convexity, scattered SAH, L periventri cular hemorrhage, and a small L frontal IPH. Ongoing tx is warranted. Speech-Language Pathologist: Nayeli Alvarado SLP [facility], 11/15/2023 2:49 PM Pager: [employer] EGLASS GUN HAND * Randy Barragan - 11/15/2023 10:27 AM CST Transportation set for patient as follows: Date and time () of patient departure: 11/16/2023 @0900 Destination: [facility] [place] [address] Type of ride: wheelchair Reference #[id number] Transportation vendor of ride: [employer] [phone] * If this ride needs to be rescheduled or cancelled, inpatient staff should call this vendor directly to reschedule or cancel, and document this in the chart. If the ride is cancelled, please also cancel the order in the chart. Nurses will receive a phone call if the ride is arriving in 120 minutes or less. Social Workers and Clinical Coordinators will be informed via a [employer] page. PCS form was completed in Progress Notes and is ready to be signed and routed to vendor by requestor(for stretcher rides only). Randy Barragan, 11/15/2023 2:49 PM Patient name: Lucinda Kennedy Date of : 1940 Patient Admitting diagnosis: Patient Active Problem List Diagnosis Fall, initial encounter Attending provider: Quinn Covarrubias MD Insurance: [facility] Secondary insurance: N/A Height: Height: 147.3 cm (4' 10) Weight: Weight: 69.7 kg (153 lb 10.6 oz) EGLASS GUN HAND * Fide Reis - 11/15/2023 10:23 AM CST Preadmission Screening Submitter InformationPerson Being ReferredMedical InformationADL'[facility] CenterSubmitResults Results Thank you for submitting a referral to the Senior LinkAge Line. The Senior LinkAge Line will follow-up within one business day of receiving the referral. Click Print this page below to print or save a copy for your records. Please note, the final results will be determined by the Senior LinkAge Line or lead agency and provided to the nursing facility. If you have questions about this referral or need help, contact the Senior LinkAge Line at [phone] or click to contact us. Print this page You have successfully submitted the preadmission screening (PAS) to the Senior LinkAge Line on: Created On 11/15/2023 10:08 AM Your confirmation number is: [id number] Results Level of Care: Based on the information you provided, it appears this person meets level of care for purposes of MA payment. OBRA: It appears this person does not need an OBRA Level II assessment. Submitter Information Form Type PAS Submitter First and Last Name Fide Reis Direct Email [email or web address] Agency [facility] Service Type Hospital [address] [facility] Zip Code [address] Is your Agency outside [place]? Person Being Admitted to Nursing Facility Legal first name Lucinda Last name Kennedy Date of 1940 Age 83 Gender Female Marital Status M= living with spouse Race White - W Ethnicity / Currently living with: 02 Living with spouse/parent Planned living with 02 Living with spouse/parent Housing Type Home or apartment, including assisted living () Mailing Address [address] [place] [address] [place] [address] [facility] Medical Information Reason for nursing facility admission: Therapy services Physician signing nursing facility admission order Primary diagnosis: Fall Is the primary diagnosis neuromuscular? No Does the person have a current diagnosis of a developmental disability or related condition(s)? No Has this person ever been considered to have a developmental disability or related condition? No Are there cognitive or behavioral signs that would lead someone to suspect the presence of developmental disabilities or related condition? No Does the person have a current diagnosis of a mental illness? No Has the person had any of the following? A mental illness as the primary diagnosis for hospitalization or nursing facility placement within the past two years Suicidal ideation, hallucinations, or delusions within the past six months A civil commitment for mental illness in his/her lifetime No Does the person have a diagnosis or symptoms of mental illness that has significantly interfered with functioning in life activities or caused the person significant distress within the past six months? No Has the person needed supportive services or interventions due to mental illness to maintain functioning within the past two years? No Does the person have a Brain Injury (BI) diagnosis? No ADL's Dressing 02 Needs some help from another person to put clothes on Grooming 01 Needs and gets supervision or reminding for grooming activities Bathing 03 Needs and gets help getting in and out of the tub Eating 01 Needs and gets minimal reminding or supervision Bed Mobility 01 Needs and gets help sometimes to sit up Transferring 02 Needs one other person to help Walking 01 Can walk with help of a cane, walker, crutch or push wheelchair Behavior 00 Behavior requires no intervention Toileting 01 need some help to get to and on the toilet, or needs intermittent supervision Toileting supervision Toileting supervisionNoToileting supervisionYes Special treatments 02 Other treatments Clinical monitoring 02 At least one every 8 hours Orientation 00 Oriented Self-preservation 00 Independent Hearing 00 No hearing impairment Visual 00 Has no impairment of vision Falls 01 Yes Admitting Nursing Facility Do you know which nursing facility the person will admit to? Do you know which nursing facility the person will admit to?NoDo you know which nursing facility the person will admit to?Yes Provider [facility] Nursing Facility Service Type Detention [address] If your provider is not listed check the box Anticipated Admit Date 11/15/2023 Anticipated length of stay 30-60 days Submit I, as the submitter of this form, confirm that I have provided the most accurate information . We informed the person and/or their guardian about the Senior LinkAge Line and preadmission screenin The person gave consent for Senior LinkAge Line (or [facility] [place] if under age 60) follow-up. Did not ask ANA * Bill Olivera 11/15/2023 9:31 AM CSTSummary: Post Acute Referrals Images from the original note were not included. Post Acute Referrals Referrals to post acute placement have been sent. Updates about referral status can be seen below .This note will continue to be updated by the case management team. Addendum history can be seen below. Choice(s) given to patient/family. Destinations updated. Preferred place(s) marked with a star. Patient/family aware we can't guarantee placement in their preferred place, this is up to facility, insurance coverage and bed availability. Continued Care and Services - Admitted Since 11/04/2023 Destination Coordination complete. Service Provider Request Status Selected Services Address Phone Fax Patient Preferred Theresa Yusuf Sushil [facility] Selected Detention [address] [facility] [address] [phone] -- Internal Comment last updated by Bill Olivera 11/15/[address] [place] [address] offered us bed today. Working on setting up a ride. Team informed. Bill Olivera, 11/15/2023 10:01 AM Spoke with Italia. Will discuss further with her team. May likely admit tomorrow. May need prior auth. Bill Olivera, 11/15/2023 9:26 AM [facility] Considering Need clinical review N/A [address] [facility] [address] [phone] Internal Comment last updated by Fide Reis 11/14/2023 0926 Shared female .. bed .Fide Reis, 11/14/2023 9:25 AM [facility] Pending - Request Sent N/A [address] [facility] [address] Internal Comment last updated by Fide Reis 11/14/2023 0918 LVM for admissions .Fide Reis, 11/14/2023 9:18 AM [facility] Pending - Request Sent N/A [address] [facility] [phone] -- Internal Comment last updated by Fide Reis 11/14/2023 0920 LVM for Renata in admissions Rere Reissushil Johansen, 11/14/2023 9:20 AM [facility] Pending - Request Sent N/A [address] [address] [phone] Internal Comment last updated by Fide Reis 11/14/2023 0921 LVM for admissions .Savanna Reisgee Johansen, 11/14/2023 9:21 AM [facility] Pending - Request Sent N/A [address] [facility] [address] [phone] -- [facility] Pending - Request Sent N/A [address] [address] [phone] -- [facility] Pending - Request Sent N/A [address] [facility] [address] [phone] -- [facility] Pending - Request Sent N/A [address] [facility] [address] -- [facility] Pending - Request Sent N/A [address] [facility] [address] [phone] -- [facility] Pending - Request Sent N/A [address] [address] [phone] -- [facility] Declined Not a TCU N/A [address] [facility] [address] [phone] Internal Comment last updated by Marycarmen Caldwell 11/09/2023 1033 Not a TCU per the [phone] phone number connected to the same address. Marycarmen Caldwell,11/09/2023 10:[address] [facility] Declined Closed N/A [address] [facility] [address] [phone] Internal Comment last updated by Fide Reis 11/08/2023 1359 Has been closed for 1 year . Fide Reis, 11/08/2023 1:59 PM [facility] Declined No Contract with Patient's Insurance Carrier N/A [address] [facility] [address] Internal Comment last updated by Bill Olivera 11/15/2023 0840 Family doesn't want it here. Bill Olivera, 11/15/2023 8:40 AM [facility].320 Declined TCU N/A [address] [place] [phone] -- Internal Comment last updated by Bill Olivera 11/09/2023 0829 PM&R continues to follow. If DC imminent, recommending TCU instead. Bill Olivera, 11/09/2023 8:29 AM Pending PMnR recs. Bill Olivera, 11/06/2023 11:04 AM [facility] Declined Facility Cannot Provide for Patient's needs N/A [address] [place] [address] [phone] -- [facility] Declined Closed N/A [address] [place] [address] [phone] -- Internal Comment last updated by Marycarmen Caldwell 11/09/2023 1034 Permanently closed [facility] Declined Family choice N/A [address] [facility] [address] [phone] -- Internal Comment last updated by Fide Reis 11/14/2023 0916 LVM for admissions. Fide Reis, 11/14/2023 9:16 AM [facility] Declined Family choice N/A [address] [facility] [address] [phone] -- [facility] Declined Family choice N/A [address] [facility] [address] [phone] -- [facility] Declined Bed not available N/A [address] [facility] [address] [phone] -- Home Medical Care Coordination has not been started for this encounter. EGLASS GUN HAND * Gregg Dexter MD - 11/15/2023 7:20 AM CST PURPLE SURGERY TRAUMA PROGRESS NOTE - MS3/PGY-5 Lucinda Kennedy : 1940 Sex: female ASSESSMENT: Lucinda Kennedy is a 83 y.o. female with PMH of HTN, HLD, DM II who was admitted after a fall at home. Per report, patient was found at the bottom of the stairs by her . Imaging notable for below listed injuries. Neurosurgery consulted. CT head-neck angio showed increased SDH. Repeat HCT showing stable head bleeds. Patient is medically ready for discharge to continue rehabat a TCU. Current known injuries: SDH along the posterior falx, right greater than left tentorial leaflets and right cerebral convexity SAH along the left frontoparietal regions near the vertex and the left ambient cistern. left periventricular hemorrhage about the caudate nucleus. TBI 24 hours events: No acute events overnight. No pain. Patient more awake and alert to self, place, location and situation. Eager to be discharged. PLAN: Continue Therapies Blood pressure within goal on current treatment regimen continue Replace potassium and start daily potassium. 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 No pain. Asking for , Wan. PHYSICAL EXAM: Vital Signs: Patient Vitals for the past 8 hrs: BP Pulse Resp Temp SpO2 11/15/23 0705 147/74 79 16 36.7 ??C (98 ??F) 93 % 11/15/23 0418 (!) 152/62 -- -- -- -- 11/15/23 0416 (!) 157/64 68 16 36.3 ??C (97.4 ??F) 93 % LABS: BMP Lab Results Component Value Date/Time NA 142 11/15/2023 0739 K 3.7 11/15/2023 0739 CHLORIDE 104 11/15/2023 0739 CO2 27 11/15/2023 0739 GLU 96 11/15/2023 0739 UN 20 11/15/2023 0739 CR 0.89 11/15/2023 0739 CA 9.4 11/15/2023 0739 CBC w/Diff Lab Results Component Value Date/Time WBC 5.60 11/11/2023 0609 RBC 3.80 (L) 11/11/2023 0609 HGB 9.5 (L) 11/11/2023 0609 HCT 31.4 (L) 11/11/2023 0609 PLT 275 11/11/2023 0609 MCV 82.6 11/11/2023 0609 MCH 25.0 11/11/2023 0609 MCHC 30.3 (L) 11/11/2023 0609 RDW 16.1 (H) 11/11/2023 0609 MPV 11.8 11/11/2023 0609 NEUTNO 5.80 11/04/2023 2245 LYMPHAB 2.33 11/04/2023 2245 MONOABSNO 0.88 11/04/2023 2245 EOSNUMB 0.27 11/04/2023 2245 BASO 0.07 11/04/2023 2245 Lab Results Component Value Date/Time MG 2.1 11/09/2023 0541 Lab Results Component Value Date/Time PO4 3.5 11/11/2023 0609 Physical Exam Vitals and nursing note reviewed. Constitutional: General: She is not in acute distress. Appearance: Normal appearance. She is well-developed. HENT: Head: Normocephalic and atraumatic. Eyes: General: No scleral icterus. Conjunctiva/sclera: Conjunctivae normal. Cardiovascular: Rate and Rhythm: Normal rate and regular rhythm. Heart sounds: Normal heart sounds. No murmur heard. No friction rub. No gallop. Pulmonary: Effort: Pulmonary effort is normal. No respiratory distress. Breath sounds: Normal breath sounds. No wheezing or rales. Musculoskeletal: Right lower leg: No edema. Left lower leg: No edema. Skin: General: Skin is warm and dry. Coloration: Skin is not jaundiced or pale. Neurological: Mental Status: She is alert. RADIOLOGY: no new imaging Medical student involved: Vineet Gonsalves I, Vineet Gonsalves MS, saw this patient as a medical student Signed: Vineet Gonsalves, MS, 11/15/2023 09:51 I Amelia Lobo MD, saw the patient with the medical student and performed, or re-performed, the physical exam and medical decision-making and have verified the accuracy of all the medical student documentation and edited as necessary. Amelia Lobo MD, MPH 11/15/2023 09:51 PGY-5 General Surgery Resident Pager: [phone] or via [employer] FACULTY NOTE I saw and evaluated the patient on the date of the resident's note. I discussed with the resident and agree with the resident???s findings and plan documented in the resident???s note from above. Anyrevisions by me are documented. Gregg Dexter MD, 11/15/2023 3:39 PM EGLASS GUN HAND * Gregg Dexter MD - 11/14/2023 11:58 AM CST SURGERY TRAUMA PROGRESS NOTE - PGY-1 Lucinda Kennedy : 1940 Sex: female ASSESSMENT: Lcuinda Kennedy is a 83 y.o. female with PMH of HTN, HLD, DM II who was admitted after a fall at home. Per report, patient was found at the bottom of the stairs by her . Imaging notable for below listed injuries. Neurosurgery consulted. CT head-neck angio showed increased SDH. Repeat HCT showing stable head bleeds. Patient is medically ready for discharge to continue rehabat a TCU. Current known injuries: SDH along the posterior falx, right greater than left tentorial leaflets and right cerebral convexity SAH along the left frontoparietal regions near the vertex and the left ambient cistern. left periventricular hemorrhage about the caudate nucleus. TBI 24 hours events: No acute events overnight. Patient more awake and alert to self, place, location and situation. Eager to be discharged. PLAN: Continue Therapies Blood pressure within goal on current treatment regimen continue Replace potassium and start daily potassium Activity status: up with assist DVT prophylaxis: SCD, Lovenox 30 mg SQ BID GI prophylaxis: None Antibiotics: none Pain control: Tylenol (naproxen for gout flare) PT/OT: recommending Post-acute placement Xrays needed: XR Right Foot Labs needed: CBC, BMP, Mg, Phos q4 days Consulting services needed: none Disposition: Plan for discharge to: Acute Rehab SUBJECTIVE: S: Patient doing well this AM. Pt was reassesed by Mitch today and was deemed to be a canidate. Currently patients insurance will cover either [facility] or a TCU but not both. Mitch estimated that the patient would be there from approximately 1-2 weeks but will likely still require 24 hr supervision after going home. After discussing both options with patient and patients they were leaning tow ards the TCU as the best place for Clarissa. Have not been able to speak with Zain(her daughter) yet, per patents zain is aware and also prefers TCU. PHYSICAL EXAM: Vital Signs: Patient Vitals for the past 8 hrs: BP Pulse Resp Temp SpO2 11/14/23 0719 (!) 157/56 74 16 36.1 ??C (97 ??F) 95 % 11/14/23 0400 118/41 58 18 35.9 ??C (96.6 ??F) 94 % LABS: BMP Lab Results Component Value Date/Time NA 142 11/14/2023 0859 K 3.8 11/14/2023 0859 CHLORIDE 103 11/14/2023 0859 CO2 28 11/14/2023 0859 GLU 158 (H) 11/14/2023 0859 UN 19 11/14/2023 0859 CR 0.79 11/14/2023 0859 CA 9.3 11/14/2023 0859 CBC w/Diff Lab Results Component Value Date/Time WBC 5.60 11/11/2023 0609 RBC 3.80 (L) 11/11/2023 0609 HGB 9.5 (L) 11/11/2023 0609 HCT 31.4 (L) 11/11/2023 0609 PLT 275 11/11/2023 0609 MCV 82.6 11/11/2023 0609 MCH 25.0 11/11/2023 0609 MCHC 30.3 (L) 11/11/2023 0609 RDW 16.1 (H) 11/11/2023 0609 MPV 11.8 11/11/2023 0609 NEUTNO 5.80 11/04/2023 2245 LYMPHAB 2.33 11/04/2023 2245 MONOABSNO 0.88 11/04/2023 2245 EOSNUMB 0.27 11/04/2023 2245 BASO 0.07 11/04/2023 2245 Lab Results Component Value Date/Time MG 2.1 11/09/2023 0541 Lab Results Component Value Date/Time PO4 3.5 11/11/2023 0609 Neurologic: Alert and oriented X 3, moves all extremities. CN II - XII grossly intact. HEENT Eyes: PERRLA, conjunctiva/corneas normal. Head: Normocephalic. No abrasions, lacerations or hematomas noted. Ears: Canals without blood or CSF drainage, TMs clear, external ears without lacerations. Nose/sinus: Septum midline, no crepitus with motion. Nares normal, mucosa pink, no sinus drainage and no sinus tenderness. Throat/Oropharynx: Oral mucosa without lacerations, tongue without lacerations. Face: Stable mid-face and no pain with palpation.No abrasions, lacerations or hematomas. Neck: No midline pain with palpation or active ROM. Chest: External Exam - No air, crepitus or pain with palpation. No lacerations, abrasions or contusions. Pulmonary: Breath sounds clear, symmetrical. No wheezes, rales, consolidation. Breathing comfortably on room air Cardiovascular Heart: Regular rate and rhythm, S1, S2, no murmurs/rubs/gallops. Peripheral vascular: bilateral carotid, radial, femoral, DP and PT pulses are palpable. Gastrointestinal Abdominal: Non distended, no scars, no lacerations. No tenderness or masses, organomegaly or peritoneal signs. Rectal: Not examined. Genitourinary: No lesions present, no injuries Musculoskeletal: Back: Non-tender, spine without tenderness or step-offs Muscular strength intact. Extremities: Upper: Right upper extremity joints: Non-tender to palpation over clavicle, shoulder, arm, elbow, forearm, wrist. Normal ROM shoulder, elbow, wrist without pain. Grossly moving upper extremities without issues. Radial pulse palpable. strength 5/5 Left upper extremity: Non-tender to palpation over clavicle, shoulder, arm, elbow, forearm, wrist. Normal ROM shoulder, elbow, wrist without pain. Grossly moving upper extremities without issues. Radial pulse palpable. strength 5/5 Lower: Right lower extremity : joints move freely and without pain. Non-tender to palpation over knee, leg, ankle/foot. DP/PT palpable, toes warm/well- perfused. No pain with ROM hip/knee/ankle. Strength 5/5. Left lower extremity: joints move freely and without pain. Non-tender to palpation over knee, leg, ankle/foot. DP/PT palpable, toes warm/well-perfused. No pain with ROM hip/knee/ankle. Strength 5/5. Pelvic Stability: Stable and no pain with palpation. Skin: Warm and dry without ecchymoses or lesions. RADIOLOGY: no new imaging Patient seen by and discussed with Senior Resident/Staff Physician. Juan Loera MD, 11/14/2023 11:58 AM FACULTY NOTE I saw and evaluated the patient on the date of the resident's note. I discussed with the resident and agree with the resident???s findings and plan documented in the resident???s note from above. Anyrevisions by me are documented. Gregg Dexter MD, 11/15/2023 3:38 PM EGLASS GUN HAND * Sharri Price, OTR/L - 11/14/2023 11:00 AM CST Occupational Therapy Progress Note 11/14/2023 OT Discharge Recommendations Discharge Recommendations: Post-acute placement recommended Level/type of placement (OT): Acute Rehab if meets admission criteria Barriers to placement (OT): No known barriers to placement Barriers to discharge to home/community: NA - Post acute placement is recommended and no barriers to placement known. Post Discharge Follow-up: OT at post-acute placement Equipment Recommended: Equipment needs to be determined at next level of care OT In-patient follow-up / recommended referrals: Continue skilled OT services to achieve the goals on the plan of care / maximize safety and independence with ADL's / IADL's - Recommended Frequency: Daily - Anticipated Duration of OT services: throughout hospital stay until OT goals are met PM&R Consult Recommended: Yes, for assessment of post-acute placement needs. Pt appears to be acandidate for higher intensity rehab services Precautions/Restrictions: Activity Level: Up with Assist (11/05/23 1300) General Precautions: Falls Risk (aspiration) (11/05/23 1300) Complies w/ Precautions?: Yes SUBJECTIVE: Patient seated EOB upon approach. seated bedside and attentive to patient. Pain Pain Rating With Activity (Numeric): no overt signs of pain Participation Significantly Limited?: No Action Taken: No action needed OBJECTIVE: Activities of Daily Living Grooming: Minimal assist (75% patient effort) Grooming Comments: standing EOS. Max cues with assist for sequencing and completion of tasks including washing hands with use of soap Lower Body Dressing: Minimal assist (75% patient effort) Lower Body Dressing Comments: donning shorts while seated EOB Functional Mobility Supine to/from Sit: Supervision/Stand by assist Sit to/from Stand : Minimal assist (75% patient effort) Sit to/from Stand - Method: From standard seat height;w/ Assistive device Bed to/from Chair: Minimal assist (75% patient effort) Bed to/from Chair - Method: Standing pivot w/ AD Bed to Bathroom: Minimal assist (75% patient effort) Bed to Bathroom- Method: Front wheeled walker Functional Mobility in Room: Minimal assist (75% patient effort) Functional Mobility in Room- Method: Front wheeled walker Cognition Mental Status: Alert;Cooperative;Follows 1 step direction;Follows 2 step directions;Oriented x 2 Delirium assessment: Confusion Assessment Method (CAM) Acute onset OR fluctuating course: No Inattention: Yes Disorganized Thinking: No Altered level of consciousness: No CAM result: Negative Delirium prevention / intervention appears indicated? No. Interdisciplinary Communication: Cleared with RN prior to initiation of OT session. Updated RN sp OT session. ASSESSMENT: Patient requiring increased time with cues for sequencing and problem solving tasks. Patient initiating g/h while standing at sink this date with max cues and assist for application of soap for washing hands. Patient requiring cues and assist for safe navigation of FWW in BR space and for scanning to the left and locating wastebasket. Patient up to reclining chair at end of session with needs in reach and also present and attentive to patient. Patient and reporting hopeful to continue with therapies at acute rehab prior to return home. This patient will continue to benefit from skilled OT services for ADL retraining, activity tolerance, functional cognition, and strengthening to maximize independence and safety with ADLs. PLAN: Continue skilled OT services to achieve the goals on the plan of care: Plan For Next OT Session: --ADLs: UB dressing compensatory strategies, LB dressing compensatory strategies, Bathing strategies, Toileting strategies, Grooming strategies, Energy conservation, and Progress from seated to standing level ADLs as able --Energy Conservation --Motor: Strengthening --Cognition: MOCA, CMT, Written Instructions, CAM, and SBT Total treatment time: 32 minutes OT interventions and time spent on each: Self care/Home mgmt/ADL: 24 minutes Functional activity: 8 minutes RAFAEL Medellin/Kelton Pager: [facility] OT Department [facility]GL[facility] * Carola Spence, DIRECTOR OF PSYCHOLOGY - 11/14/2023 10:00 AM CST Images from the original note were not included. Physical Therapy Progress Note PT Discharge Recommendations Discharge Recommendations: Post-acute placement recommended. Level/type of placement (PT): Acute Rehab if meets admission criteria Barriers to placement (PT): No known barriers to placement Barriers to discharge to home/community: Insufficient activity tolerance;Home setting not accessible (stairs/architectural barriers);High falls risk If discharging to home, would need: Physical assistance when mobilizing Post discharge follow-up: Equipment Status: Equipment needs being determined PT Equipment Recommended: Front wheeled walker PM&R Recommended: Yes, for assessment of post-acute placement needs. Pt appears to be a candidate for higher intensity rehab services S: We are in [place].. Well if we are in [place] I told Wan to go to the wrong place Oriented to self only Pain Pain Rating With Activity (Numeric): 0 (reports she has no pain) O: Mental Status Mental Status: Impulsive;Oriented x 1;Confused (signficant improvment from previous session) Vital Signs 11/14/2023 0400 11/14/2023 0719 11/14/2023 1207 BP: 118/41 157/56 144/55 Patient Position for BP: Lying Down Sitting Sitting Pulse: 58 74 64 SpO2: 94 % 95 % 94 % Transfer & Bed Mobility Supine to/from Sit: Stand by assist Sit to/from Stand: Minimal assist (Phyllis without AD, SBA with 2ww) Sit to/from Stand - Method: From standard seat height;w/ Assistive device;w/o Assistive device (2ww) Bed to/from Chair: Minimal assist Bed to/from Chair - Method: From standard seat height;Standing pivot w/o AD;Standing pivot w/ AD (2ww) Gait Distance (m): 70 m (70m x 3 1xw 2ww, 2x no ad) Device: Front wheeled walker;None Assistance: Minimal assist Gait Quality (General): Shuffling;Unsteady Stairs Assistive Devices Used: (HOURLY SALES STAFF) Sitting Static Balance Level of Assistance: Upper Extremity Support Other: seated rest breaks Static Standing Balance Feet Shoulder Width Eyes Open (sec): 60 (without UE support Phyllis , exhibits mild ant displacement) Feet Together Eyes Open (sec): 60 sec (posterior LOB Phyllis) Single Leg Stance Left (sec): 5 sec (before needing to take a step - performed 5x) Dynamic Standing Balance Placing Alternate Foot on Stool: 10 (Phyllis increased difficulty in R SLS) Vertical/horizontal head turns - slows requires HOURLY SALES STAFF Amb slow/fast : no significant change achieved Education : TCU vs Acute rehab and amount of assist patient will require upon dc home which is likely general supervision Interdisciplinary Communication PA/ART EDUCATION PROFESSOR: discussed patient Food Service Representative: daughter wishing to discuss POA Family: present additional time for education and assistance for patient, daughter requesting someone reach out for POA Fall Risk Assessment: Patient has a history of more than one fall within 6 months before admission. Positioning: Patient Positioned in Neutral Alignment Bed exit alarm on Treatment rendered: Gait training;Transfer training;Bed mobility training;Positioning;Strengthening;Neuromuscular re-education Total treatment time: 60 minutes A: With approach Clarissa is up in the chair and agreeable to therapy this AM. Her mobility appears roughly the same. Progressed to amb with non-use of gait aide which slows patient considerably and she also exhibits increased shuffling gait. Patient remains appropriate to dc to next rehab setting to address goals as noted below. Problem: Decreased Transfer Skills Goal: Patient will transfer bed to/from chair Description: Patient will transfer bed to/from chair with (6) Modified Parker with sliding board or pivot method. By 11-17-2023 Outcome: In progress Goal: Patient will transfer sit to/from stand Description: Patient will transfer sit to/from stand with (6) Modified Parker By 11-17-2023. Outcome: In progress Problem: Decreased Ambulatory Skills Goal: Improve gait Description: Ambulate 100 meters using Front - wheeled walker with (6) Modified Parker By 11-17-2023. Outcome: In progress Goal: Improve gait on stairs Description: Ascend/descend 7 +7 stairs using Cane with (6) Modified Parker .By 11-17-2023 Outcome: In progress Problem: Decreased Functional Motor Skills - PT Goal: Patient demonstrates improved balance Description: Pt to score at least 45/56 Mitchell Balance to indicate decreased risk for falls By 11-17-2023 Outcome: In progress P: Patient will be seen 5x/week until goals are met or patient is discharged. Next visit the plan is to work on standing balance, gait with least AD, stairs for home usage daily. DIRECTOR OF PSYCHOLOGY Appropriate: Yes Carola Spence PTA 11/14/2023 Pager: [facility] * Sinai Brady PA-C - 11/14/2023 9:48 AM CST Physical Medicine & Rehabilitation Follow-Up Lucinda Kennedy : 1940 Sex: female Patient recently finished working with PT, states she is tired but otherwise doing well. Discussed idea of acute rehabilitation and patient was open to more intensive rehabilitation with encouragement of PT who worked with her, If she thinks I'm ready, I trust her. She's the expert! Exam: Vitals: BP (!) 157/56 (Cuff Location: Right Arm) Pulse 74 Temp 36.1 ??C (97 ??F) (Axillary) Resp 16 Ht 1.473 m (4' 10) Wt 69.7 kg (153 lb 10.6 oz) SpO2 95% BMI 32.12 kg/m?? Gen: no acute distress Pulm: breathing comfortably on room air Abd: non distended Neuro: moves 4/4 extremities, answers simple questions appropriately Psych: calm, appropriate mood and affect Skin: warm and dry Impression: Lucinda Kennedy is a 83 y.o. right hand dominant female with chronic medical conditions including HTN, DM II, and HLD, who was admitted to [facility] 11/04/2023 after being found unconscious at the bottom of a flight of stairs, presumably due a fall. GCS 14 upon presentation. She was found to have TBIwith SDH of the R>L tentorial leaflets and R cerebral convexity, scattered SAH, L periventricular hemorrhage, and a small L frontal IPH. Injuries were non- operatively managed, with a repeat CT head stable. She was started on Keppra for seizure prophylaxis, required a Clevidipine drip for blood pressure control - now discontinued. During her hospital course she has had ongoing confusion and impulsivity, and is currently prescribed Depakote. Became restless overnight 11/06-11/07 and was given zyprexa, more somnolent 11/07 especially in the AM, suspected to be related to zyprexa. 11/08 remains quite lethargic, level of alertness limiting ability to participate with therapies. Now with improved le federico of alertness, progressing with therapies. Remains below her functional baseline with regard to mobility, self care, cognition. Tolerating regular diet with thin liquids. Rehab Dx: traumatic brain injury Recommendations: Continue PT to address balance, mobility, gait, transfers, safety Continue OT to address self care, ADL's, adaptive equipment Continue PIN SORTER AND BAGGER to address speech, swallow, communication, cognition Regarding disposition: recommend ongoing rehabilitation in the acute rehabilitation setting. Patient is agreeable to plan. Given current cognitive status, recommend discussion of discharge planning with patient's family. Anticipate 10-14 day stay, will likely require 24h supervision at the time of d /c. Requested CC/SW team to f/u with patient family, no family present at bedside today Addendum- CC spoke with daughter who indicates family unlikely to be able to provide 24h supervision/care at the time of d/c from rehab. If unable to provide 24h care, would anticipate need for longer rehabilitation course and would be more appropriate for TCU. Further addendum- followed up with patient and spouse with CC and primary team. Will proceed with TCU placement for longer rehabilitation stay. Appreciate ongoing efforts toward placement. We will continue to follow and update recommendations as appropriate. Thank you for involving us inthis patient's care. Please feel free to page me with questions/concerns. Parts of this note have been dictated using [employer] dictation software. Please excuse any weight loss sales consultant errors and feel free to contact me regarding such errors or confusion regarding intended message. Sinai Brady PA-C, CBIS Pager via [employer] Total time spent on this encounter, on the date of service including pre-visit review of separatelyobtained history, [id number] interaction performing medically appropriate physical exam, patient counseling/education, interpretation of diagnostic results, care coordination and documentation was 50 minutes. EGLASS GUN HAND * Sharri Price OTR/Kelton - 11/13/2023 4:49 PM CST Occupational Therapy Progress Note 11/13/2023 OT Discharge Recommendations Discharge Recommendations: Post-acute placement recommended Level/type of placement (OT): Acute Rehab if meets admission criteria Barriers to placement (OT): No known barriers to placement Barriers to discharge to home/community: NA - Post acute placement is recommended and no barriers to placement known. Post Discharge Follow-up: OT at post-acute placement Equipment Recommended: Equipment needs to be determined at next level of care OT In-patient follow-up / recommended referrals: Continue skilled OT services to achieve the goals on the plan of care / maximize safety and independence with ADL's / IADL's - Recommended Frequency: Daily - Anticipated Duration of OT services: throughout hospital stay until OT goals are met PM&R Consult Recommended: Yes, for assessment of post-acute placement needs. Pt appears to be acandidate for higher intensity rehab services Precautions/Restrictions: Activity Level: Up with Assist (11/05/23 1300) General Precautions: Falls Risk (aspiration) (11/05/23 1300) Complies w/ Precautions?: Yes SUBJECTIVE: Patient supine upon approach. Lights off, patient alert and lunch tray untouched at bedside table. SO present bedside. Pain Pain Rating With Activity (Numeric): no overt signs of pain Participation Significantly Limited?: No Action Taken: No action needed OBJECTIVE: Activities of Daily Living Grooming: Supervision/Stand by assist Grooming Comments: seated in chair bedside Lower Body Dressing: Minimal assist (75% patient effort) Lower Body Dressing Comments: seated EOB for donning socks and shorts Lower Body Dressing Techniques & Equipment: Patient Ed Functional Mobility Supine to/from Sit: Supervision/Stand by assist Sit to/from Stand : Minimal assist (75% patient effort) Sit to/from Stand - Method: From standard seat height;w/ Assistive device Bed to/from Chair: Minimal assist (75% patient effort) Bed to/from Chair - Method: Standing pivot w/ AD Cognition Mental Status: Alert;Cooperative;Follows 1 step direction;Follows 2 step directions;Oriented x 2 Delirium assessment: Confusion Assessment Method (CAM) Delirium prevention / intervention appears indicated? Yes, as a preventative measure: Interdisciplinary Communication: Updated RN sp OT session. ASSESSMENT: Patient requiring cueing for day, date and time with general orientation review. Patient motivated to be up to chair for eating from lunch tray upon cueing/encouragement. Patient demonstrating LB dressing task at Min A including donning molding fitter socks and shorts at EOB. Patient completing light g/h tasks while seated in chair bedside with s/u. 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 This patient will continue to benefit from skilled OT services for ADL retraining, activity tolerance, functional mobility, and functional cognition to maximize independence and safety with ADLs. PLAN: Continue skilled OT services to achieve the goals on the plan of care: Plan For Next OT Session: --ADLs: UB dressing compensatory strategies, LB dressing compensatory strategies, Bathing strategies, Toileting strategies, Grooming strategies, and Progress from seated to standing level ADLs as able --Cognition: MOCA, CAM, and SBT Total treatment time: 24 minutes OT interventions and time spent on each: Self care/Home mgmt/ADL: 24 minutes RAFAEL Medellin/Kelton Pager: [facility] OT Department [facility]GL[facility] * Sera Fleming, STEPHIE CCC - 11/13/2023 1:14 PM CST Speech-Language Pathology Progress Note 11/13/2023 PIN SORTER AND BAGGER Recommendations Discharge Recommendations (PIN SORTER AND BAGGER): Post-acute placement recommended. Acute Rehab if meets admission criteria No known barriers to placement Barriers to Discharge (PIN SORTER AND BAGGER): NA - Post acute placement is recommended and no barriers to placement known. Post Discharge follow-up (PIN SORTER AND BAGGER): PIN SORTER AND BAGGER at post-acute placement Recommend PM&R Consult (PIN SORTER AND BAGGER): Yes, for assessment of post-acute placement needs. Pt appears to be a candidate for higher intensity rehab services. Diet Recommendation: Current Diet : Regular Current Liquid: Thin liquids Medication Administration: Medications with thin liquid Aspiration Precautions: Upright with all eating and drinking Oral Hygiene: [place] teeth 2x/day Positioning Techniques: Seat fully upright and midline when eating Supervision Needed: Independent Instrumental Assessment Needed: No Additional Referrals Needed: None Problem: Cognitive-Linguistic Deficit (Acute) Goal: Complete cognitive linguistic assessment Description: Patient will complete assessment of cognitive-linguistic abilities to determine rehab needs. Outcome: In progress Pt was seen this AM for ongoing dx tx of cognitive-linguistic abilities. She was pleasant but forgetful during the session. Portions of the [facility] Information Processing Assessment were administered. RIPA: Immediate Memory: () Severe Deficit (20-0) Recent Memory: (09/27) Severe Deficit (20-0) Prob Solving/ Reasoning: (25/30) Moderate Deficit (21-25) Organization: (18/30) Severe Deficit (20-0) Delirium Assessment - CAM Short (Confusion Assessment Method) Acute onset OR fluctuating course: No Inattention: No Disorganized Thinking: No Altered level of consciousness: No CAM result: Negative Time of Encounter: 929 Treatment Time: 30 minutes Pain: 6/10 (headache) Barriers to Learning: Cognitive linguistic deficit, Treatment Diagnosis: Cognitive communication deficit R41.841, Treatment Type:Cognitive-linguistic Treatment (12990, [id number]) Treatment Frequency: 2-3x per week CLINICAL IMPRESSIONS Severe cognitive-linguistic deficits within attention, memory, problem solving, reasoning, and executive functioning. Ongoing cognitive-linguistic dx/tx is needed. Speech-Language Pathologist: Sera Fleming SLP [facility], 11/13/2023 1:14 PM Pager: [facility]GL[facility]UN HAND * Jesusita Aiken APRN, GLASS BLOWER HELPER - 11/13/2023 8:21 AM CST SURGERY TRAUMA PROGRESS NOTE - PGY-5 Lucinda Kennedy : 1940 Sex: female ASSESSMENT: Lucinda Kennedy is a 83 y.o. female with PMH of HTN, HLD, DM II who was admitted after a fall at home. Per report, patient was found at the bottom of the stairs by her . Imaging notable for below listed injuries. Neurosurgery consulted. CT head-neck angio showed increased SDH. Repeat HCT showing stable head bleeds. Patient is medically ready for discharge to continue rehabat a TCU. Current known injuries: SDH along the posterior falx, right greater than left tentorial leaflets and right cerebral convexity SAH along the left frontoparietal regions near the vertex and the left ambient cistern. left periventricular hemorrhage about the caudate nucleus. TBI 24 hours events: No acute events overnight. Patient more awake and alert to self, place, location and situation. Eager to be discharged. On room air PLAN: Continue Therapies Blood pressure within goal on current treatment regimen continue Replace potassium and start daily potassium Activity status: up with assist DVT prophylaxis: SCD, Lovenox 30 mg SQ BID GI prophylaxis: None Antibiotics: none Pain control: Tylenol (naproxen for gout flare) PT/OT: recommending Post-acute placement Xrays needed: XR Right Foot Labs needed: CBC, BMP, Mg, Phos q4 days Consulting services needed: none Disposition: Plan for discharge to: Acute Rehab SUBJECTIVE: S: Patient doing well this AM. Pleasantly confused. HDS, toileting with assistance and tolerating PO intake. PHYSICAL EXAM: Vital Signs: Patient Vitals for the past 8 hrs: BP Pulse Resp Temp SpO2 11/13/23 1040 118/44 57 16 36.4 ??C (97.6 ??F) (!) 86 % 11/13/23 0920 149/59 -- -- -- -- 11/13/23 0728 149/59 60 16 35.9 ??C (96.6 ??F) 90 % LABS: BMP Lab Results Component Value Date/Time NA 143 11/13/2023 0641 K 3.0 (L) 11/13/2023 0641 CHLORIDE 103 11/13/2023 0641 CO2 30 11/13/2023 0641 GLU 121 (H) 11/13/2023 0641 UN 24 (H) 11/13/2023 0641 CR 0.87 11/13/2023 0641 CA 8.9 11/13/2023 0641 CBC w/Diff Lab Results Component Value Date/Time WBC 5.60 11/11/2023 0609 RBC 3.80 (L) 11/11/2023 0609 HGB 9.5 (L) 11/11/2023 0609 HCT 31.4 (L) 11/11/2023 0609 PLT 275 11/11/2023 0609 MCV 82.6 11/11/2023 0609 MCH 25.0 11/11/2023 0609 MCHC 30.3 (L) 11/11/2023 0609 RDW 16.1 (H) 11/11/2023 0609 MPV 11.8 11/11/2023 0609 NEUTNO 5.80 11/04/2023 2245 LYMPHAB 2.33 11/04/2023 2245 MONOABSNO 0.88 11/04/2023 2245 EOSNUMB 0.27 11/04/2023 2245 BASO 0.07 11/04/20232244 Lab Results Component Value Date/Time MG 2.1 11/09/2023 0541 Lab Results Component Value Date/Time PO4 3.5 11/11/2023 0609 Neurologic: Alert and oriented X 3, moves all extremities. CN II - XII grossly intact. HEENT Eyes: PERRLA, conjunctiva/corneas normal. Head: Normocephalic. No abrasions, lacerations or hematomas noted. Ears: Canals without blood or CSF drainage, TMs clear, external ears without lacerations. Nose/sinus: Septum midline, no crepitus with motion. Nares normal, mucosa pink, no sinus drainage and no sinus tenderness. Throat/Oropharynx: Oral mucosa without lacerations, tongue without lacerations. Face: Stable mid-face and no pain with palpation.No abrasions, lacerations or hematomas. Neck: No midline pain with palpation or active ROM. Chest: External Exam - No air, crepitus or pain with palpation. No lacerations, abrasions or contusions. Pulmonary: Breath sounds clear, symmetrical. No wheezes, rales, consolidation. Breathing comfortably on room air Cardiovascular Heart: Regular rate and rhythm, S1, S2, no murmurs/rubs/gallops. Peripheral vascular: bilateral carotid, radial, femoral, DP and PT pulses are palpable. Gastrointestinal Abdominal: Non distended, no scars, no lacerations. No tenderness or masses, organomegaly or peritoneal signs. Rectal: Not examined. Genitourinary: No lesions present, no injuries Musculoskeletal: Back: Non-tender, spine without tenderness or step-offs Muscular strength intact. Extremities: Upper: Right upper extremity joints: Non-tender to palpation over clavicle, shoulder, arm, elbow, forearm, wrist. Normal ROM shoulder, elbow, wrist without pain. Grossly moving upper extremities without issues. Radial pulse palpable. strength 5/5 Left upper extremity: Non-tender to palpation over clavicle, shoulder, arm, elbow, forearm, wrist. Normal ROM shoulder, elbow, wrist without pain. Grossly moving upper extremities without issues. Radial pulse palpable. strength 5/5 Lower: Right lower extremity : joints move freely and without pain. Non-tender to palpation over knee, leg, ankle/foot. DP/PT palpable, toes warm/well- perfused. No pain with ROM hip/knee/ankle. Strength 5/5. Left lower extremity: joints move freely and without pain. Non-tender to palpation over knee, leg, ankle/foot. DP/PT palpable, toes warm/well-perfused. No pain with ROM hip/knee/ankle. Strength 5/5. Pelvic Stability: Stable and no pain with palpation. Skin: Warm and dry without ecchymoses or lesions. RADIOLOGY: no new imaging Patient seen by and discussed with Staff Physician. Jesusita Aiken APRN, EMILY, 11/13/2023 11:17 AM EGLASS GUN HAND * Carola Spence PTA - 11/12/2023 10:30 AM CST Images from the original note were not included. Physical Therapy Progress Note PT Discharge Recommendations Discharge Recommendations: Post-acute placement recommended. Level/type of placement (PT): Acute Rehab if meets admission criteria Barriers to placement (PT): No known barriers to placement Barriers to discharge to home/community: Insufficient activity tolerance;Home setting not accessible (stairs/architectural barriers);High falls risk If discharging to home, would need: Physical assistance when mobilizing Post discharge follow-up: Equipment Status: Equipment needs being determined PT Equipment Recommended: Front wheeled walker PM&R Recommended: Yes, for assessment of post-acute placement needs. Pt appears to be a candidate for higher intensity rehab services S: Do you have any brothers or sisters? Wan, she has one brother Pain Pain Rating With Activity (Numeric): 0 (reports she has no pain) O:Lift Truck Operator Used: None needed Mental Status Mental Status: Lethargic (signficant improvment from previous session) Vital Signs 11/12/2023 0300 11/12/2023 0853 11/12/2023 1605 BP: 160/62 145/54 138/55 Patient Position for BP: Lying Down Lying Down Lying Down Pulse: 65 60 58 SpO2: 93 % 93 % 91 % Spot checks throughout activity on RA : > 92% Transfer & Bed Mobility Supine to/from Sit: Stand by assist Sit to/from Stand: Minimal assist (Phyllis without AD, SBA with 2ww) Sit to/from Stand - Method: From standard seat height;w/ Assistive device;w/o Assistive device (2ww) Gait Distance (m): 50 m (50m x 2 1x with 2ww, 1x no AD Phyllis no AD) Device: Front wheeled walker;None Assistance: Minimal assist Gait Quality (General): Shuffling;Unsteady -with nonuse of gait and vs HOURLY SALES STAFF - patient exhibits significantly shortened step length Stairs Number of Steps: 5 Stair Rails: Right rail Stairs : Minimal assist Stairs Method: Ascend step-to pattern;Descend reciprocal pattern (max verbal cues for sequencing) Assistive Devices Used: (HOURLY SALES STAFF) -catches foot on each step Sitting Static Balance Level of Assistance: Upper Extremity Support Other: seated rest breaks Static Standing Balance Feet Shoulder Width Eyes Open (sec): 60 (without UE support Phyllis , exhibits mild ant displacement) Dynamic Standing Balance Lateral Stepping (m): 2 (2m x 3) Interdisciplinary Communication RN: ok to see patient for PT, observed gait Family: present, reports stairs at home are quite steep Fall Risk Assessment: Patient is deemed high fall risk per protocol Positioning: Patient Positioned in Neutral Alignment Treatment rendered: Gait training;Transfer training;Bed mobility training;Positioning;Strengthening;Neuromuscular re-education Total treatment time: 40 minutes A: Lucinda continues to exhibit improved participation in therapy as well as improved functional mobility. Her notes she remains quite slow compared to baseline. With non-use of gait aide exhibit short staccato stepping with moderate verbal cues to increased step length with min ability to implement. Continue to anticipate patient would be an excellent candidate for acute rehab as she exhibits improved participation in each session. Problem: Decreased Transfer Skills Goal: Patient will transfer bed to/from chair Description: Patient will transfer bed to/from chair with (6) Modified Parker with sliding board or pivot method. By 11-17-2023 Outcome: In progress Goal: Patient will transfer sit to/from stand Description: Patient will transfer sit to/from stand with (6) Modified Parker By 11-17-2023. Outcome: In progress Problem: Decreased Ambulatory Skills Goal: Improve gait Description: Ambulate 100 meters using Front - wheeled walker with (6) Modified Parker By 11-17-2023. Outcome: In progress Goal: Improve gait on stairs Description: Ascend/descend 7 +7 stairs using Cane with (6) Modified Parker .By 11-17-2023 Outcome: In progress Problem: Decreased Functional Motor Skills - PT Goal: Patient demonstrates improved balance Description: Pt to score at least 45/56 Mitchell Balance to indicate decreased risk for falls By 11-17-2023 Outcome: In progress P: Patient will be seen 5x/week until goals are met or patient is discharged. Next visit the plan is to work on standing balance, gait with least AD, stairs for home usage daily. DIRECTOR OF PSYCHOLOGY Appropriate: Yes Carola Spence PTA 11/12/2023 Pager: [facility] EGLASS GUN HAND * Gregg Dexter MD - 11/12/2023 7:59 AM CST SURGERY TRAUMA PROGRESS NOTE - PGY-1 Lucinda Kennedy : 1940 Sex: female ASSESSMENT: Lucinda Kennedy is a 83 y.o. female with PMH of HTN, HLD, DM II who was admitted after a fall at home. Per report, patient was found at the bottom of the stairs by her . Imaging notable for below listed injuries. Neurosurgery consulted. CT head-neck angio showed increased SDH. Repeat HCT showing stable head bleeds. Patient is medically ready for discharge to continue rehabat a TCU. Current known injuries: SDH along the posterior falx, right greater than left tentorial leaflets and right cerebral convexity SAH along the left frontoparietal regions near the vertex and the left ambient cistern. left periventricular hemorrhage about the caudate nucleus. TBI 24 hours events: No acute events overnight. Mental state much improved and patient continues to improve day by day, BM overnight, eating sleeping well. AAOx3 PLAN: Continue Therapies Changed Losartan to 25mg BID for better bp control overnight Start Amlodipine 5 mg daily Pending placement to TCU Activity status: up with assist DVT prophylaxis: SCD, Lovenox 30 mg SQ BID GI prophylaxis: None Antibiotics: none Pain control: Tylenol (naproxen for gout flare) PT/OT: recommending Post-acute placement Xrays needed: XR Right Foot Labs needed: Daily BMP Consulting services needed: none Disposition: Plan for discharge to: Acute Rehab SUBJECTIVE: S: Patient doing well this AM. Pleasantly confused. HDS, toileting with assistance and tolerating PO intake. PHYSICAL EXAM: Vital Signs: Patient Vitals for the past 8 hrs: BP Pulse Resp Temp SpO2 11/12/23 0300 (!) 160/62 65 18 36.4 ??C (97.5 ??F) 93 % LABS: BMP Lab Results Component Value Date/Time NA 143 11/11/2023 0609 K 3.3 (L) 11/11/2023 0609 CHLORIDE 106 11/11/2023 0609 CO2 29 11/11/2023 0609 GLU 79 11/11/2023 0609 UN 30 (H) 11/11/2023 0609 CR 0.83 11/11/2023 0609 CA 9.0 11/11/2023 0609 CBC w/Diff Lab Results Component Value Date/Time WBC 5.60 11/11/2023 0609 RBC 3.80 (L) 11/11/2023 0609 HGB 9.5 (L) 11/11/2023 0609 HCT 31.4 (L) 11/11/2023 0609 PLT 275 11/11/2023 0609 MCV 82.6 11/11/2023 0609 MCH 25.0 11/11/2023 0609 MCHC 30.3 (L) 11/11/2023 0609 RDW 16.1 (H) 11/11/2023 0609 MPV 11.8 11/11/2023 0609 NEUTNO 5.80 11/04/20235 LYMPHAB 2.33 11/04/2023 2245 MONOABSNO 0.88 11/04/2023 2245 EOSNUMB 0.27 11/04/2023 2245 BASO 0.07 11/04/2023 2245 Lab Results Component Value Date/Time MG 2.1 11/09/2023 0541 Lab Results Component Value Date/Time PO4 3.5 11/11/2023 0609 RADIOLOGY: no new imaging Patient seen by and discussed with Staff Physician. Juan Loera MD, 11/12/2023 8:09 AM FACULTY NOTE I saw and evaluated the patient on the date of the resident's note. I discussed with the resident and agree with the resident???s findings and plan documented in the resident???s note from above. Anyrevisions by me are documented. Gregg Dexter MD, 11/12/2023 7:19 PM [employer]GL[facility] HAND * Amelia Lobo MD - 11/11/2023 7:53 AM CST SURGERY TRAUMA PROGRESS NOTE - PGY-5 Lucinda Kennedy : 1940 Sex: female ASSESSMENT: Lucinda Kennedy is a 83 y.o. female with PMH of HTN, HLD, DM II who was admitted after a fall at home. Per report, patient was found at the bottom of the stairs by her . Imaging notable for below listed injuries. Neurosurgery consulted. CT head-neck angio showed increased SDH. Repeat HCT showing stable head bleeds. Patient is medically ready for discharge to continue rehabat a TCU. Current known injuries: SDH along the posterior falx, right greater than left tentorial leaflets and right cerebral convexity SAH along the left frontoparietal regions near the vertex and the left ambient cistern. left periventricular hemorrhage about the caudate nucleus. TBI 24 hours events: No acute events overnight. feels patient's confusion and agitation is improving more and more every day. Oriented to self and family, sometimes time, not place although reportedly did tell nursing yesterday that she was in the hospital. PLAN: Continue Therapies Blood pressure within goal on current treatment regimen continue Activity status: up with assist DVT prophylaxis: SCD, Lovenox 30 mg SQ BID GI prophylaxis: None Antibiotics: none Pain control: Tylenol (naproxen for gout flare) PT/OT: recommending Post-acute placement Xrays needed: XR Right Foot Labs needed: CBC, BMP, Mg, Phos q4 days Consulting services needed: none Disposition: Plan for discharge to: Acute Rehab SUBJECTIVE: S: Patient doing well this AM. Pleasantly confused. HDS, toileting with assistance and tolerating PO intake. PHYSICAL EXAM: Vital Signs: Patient Vitals for the past 8 hrs: BP Pulse Resp Temp SpO2 11/11/23 0400 (!) 156/58 59 16 35.9 ??C (96.6 ??F) 92 % 11/11/23 0100 (!) 154/60 62 16 35.3 ??C (95.5 ??F) 92 % LABS: BMP Lab Results Component Value Date/Time NA 143 11/11/2023 0609 K 3.3 (L) 11/11/2023 0609 CHLORIDE 106 11/11/2023 0609 CO2 29 11/11/2023 0609 GLU 79 11/11/2023 0609 UN 30 (H) 11/11/2023 0609 CR 0.83 11/11/2023 0609 CA 9.0 11/11/2023 0609 CBC w/Diff Lab Results Component Value Date/Time WBC 5.60 11/11/2023 0609 RBC 3.80 (L) 11/11/2023 0609 HGB 9.5 (L) 11/11/2023 0609 HCT 31.4 (L) 11/11/2023 0609 PLT 275 11/11/2023 0609 MCV 82.6 11/11/2023 0609 MCH 25.0 11/11/2023 0609 MCHC 30.3 (L) 11/11/2023 0609 RDW 16.1 (H) 11/11/2023 0609 MPV 11.8 11/11/2023 0609 NEUTNO 5.80 11/04/2023 2245 LYMPHAB 2.33 11/04/2023 2245 MONOABSNO 0.88 11/04/2023 2245 EOSNUMB 0.27 11/04/2023 2245 BASO 0.07 11/04/2023 2245 Lab Results Component Value Date/Time MG 2.1 11/09/2023 0541 Lab Results Component Value Date/Time PO4 3.5 11/11/2023 0609 RADIOLOGY: no new imaging Patient seen by and discussed with Staff Physician. Amelia Lobo MD, MPH 11/11/2023 07:56 PGY-5 General Surgery Resident Pager: [phone] or via [facility] Associated attestation - Mariama Catherine DO - 11/12/2023 2:39 PM FIBREGLASS GUN HAND FACULTY NOTE I saw and evaluated the patient on the date of the resident's note. I discussed with the resident and agree with the resident???s findings and plan documented in the resident???s note from above. Anyrevisions by me are documented. Mariama Catherine DO, 11/12/2023 2:39 PM * Juan Loera MD - 11/10/2023 10:38 AM CST SURGERY TRAUMA PROGRESS NOTE - PGY-1 Lucinda Kennedy : 1940 Sex: female ASSESSMENT: Lucinda Kennedy is a 83 y.o. female with PMH of HTN, HLD, DM II who was admitted after a fall at home. Per report, patient was found at the bottom of the stairs by her . Imaging notable for below listed injuries. Neurosurgery consulted. CT head-neck angio showed increased SDH. Repeat HCT showing stable head bleeds. Patient is medically ready for discharge to continue rehabat a TCU. Current known injuries: SDH along the posterior falx, right greater than left tentorial leaflets and right cerebral convexity SAH along the left frontoparietal regions near the vertex and the left ambient cistern. left periventricular hemorrhage about the caudate nucleus. TBI 24 hours events: No events overnight, Patient doing better and was able to work with PT in the morning. Vitally stable, walking, had BM and is urinating appropriately. Regular diet with adequate intake. PLAN: Continue Therapies Blood pressure within goal on current treatment regimen continue Activity status: up with assist DVT prophylaxis: SCD, Lovenox 30 mg SQ BID GI prophylaxis: None Antibiotics: none Pain control: po pain meds ( naproxen) PT/OT: recommending Post-acute placement Xrays needed: XR Right Foot Labs needed: CBC, BMP, Mg, Phos Consulting services needed: none Disposition: Plan for discharge to: Acute Rehab SUBJECTIVE: S: patient awake, alert. at bedside. Has intermittent confusion but redirectable. Patient is pleasant, asking when she is going to get off the train. Explained that she is doing much betterand we are working on getting her placement at a TCU. updated on plan is verbalized understanding. No other acute concerns PHYSICAL EXAM: Vital Signs: Patient Vitals for the past 8 hrs: BP Pulse Resp Temp SpO2 11/10/23 0842 (!) 129/37 62 16 36.2 ??C (97.1 ??F) 93 % 11/10/23 0500 144/59 -- -- -- -- 11/10/23 0400 (!) 112/28 61 18 35.9 ??C (96.6 ??F) 94 % LABS: BMP Lab Results Component Value Date/Time NA 145 11/10/2023 0617 K 3.6 11/10/2023 0617 CHLORIDE 107 11/10/2023 0617 CO2 27 11/10/2023 0617 GLU 109 (H) 11/10/2023 0617 UN 40 (H) 11/10/2023 0617 CR 1.15 (H) 11/10/2023 0617 CA 9.1 11/10/2023 0617 CBC w/Diff Lab Results Component Value Date/Time WBC 6.82 11/10/2023 0617 RBC 3.64 (L) 11/10/2023 0617 HGB 9.1 (L) 11/10/2023 0617 HCT 30.3 (L) 11/10/2023 0617 PLT 259 11/10/2023 0617 MCV 83.2 11/10/2023 0617 MCH 25.0 11/10/2023 0617 MCHC 30.0 (L) 11/10/2023 0617 RDW 16.1 (H) 11/10/2023 0617 MPV 11.8 11/10/2023 0617 NEUTNO 5.80 11/04/2023 2245 LYMPHAB 2.33 11/04/2023 2245 MONOABSNO 0.88 11/04/2023 2245 EOSNUMB 0.27 11/04/2023 2245 BASO 0.07 11/04/2023 2245 Lab Results Component Value Date/Time MG 2.1 11/09/2023 0541 Lab Results Component Value Date/Time PO4 3.8 11/10/2023 0617 RADIOLOGY: imaging reviewed XR FOOT RIGHT 3 V AP/OBL/LAT* (11/09/2023 10:36) Patient seen by and discussed with Surgery Chief Resident and Staff Physician. Juan Loera MD, 11/10/2023 10:38 AM Discharge Milestones Documentation Discharge Milestones completed daily by the documenting provider on the Primary Treatment Team, click here. [facility] Associated attestation - Mariama Catherine DO - 11/12/2023 2:39 PM FIBREGLASS GUN HAND FACULTY NOTE I saw and evaluated the patient on the date of the resident's note. I discussed with the resident and agree with the resident???s findings and plan documented in the resident???s note from above. Anyrevisions by me are documented. Mariama Catherine DO, 11/12/2023 2:39 PM * Olivia Johnson RN - 11/09/2023 11:34 PM CST Shift [id number] Pt A&O to self and family member, pt pleasantly confused, spouse at bedside, pt VSS, on 2L to 4L via facemask to maintain oxygen above 90%. Pt denies bonita, pt up with AX1 with GB and walker, call light within reach, bed alarm on. [facility] HAND * Carola Spence PTA - 11/09/2023 3:35 PM CST Physical Therapy Progress Note PT Discharge Recommendations Discharge Recommendations: Post-acute placement recommended. Level/type of placement (PT): Acute Rehab if meets admission criteria Barriers to placement (PT): No known barriers to placement Barriers to discharge to home/community: Insufficient activity tolerance;Home setting not accessible (stairs/architectural barriers);High falls risk If discharging to home, would need: Physical assistance when mobilizing Post discharge follow-up: Equipment Status: Equipment needs being determined PT Equipment Recommended: Front wheeled walker PM&R Recommended: Yes, for assessment of post-acute placement needs. Pt appears to be a candidate for higher intensity rehab services S: It's so nice to see you. It's been a long time since you have been here. Pleasantly confused Pain Pain Rating With Activity (Numeric): 0 (reports she has no pain) Patient went to x-ray on this date following report of R foot pain (no acute findings with chart review) - patient adamantly denies having pain this PM O:Lift Truck Operator Used: None needed Mental Status Mental Status: Lethargic (but improved from previous session) Is oriented to person, is not oriented to place Vital Signs 11/09/2023 0726 11/09/2023 1243 11/09/2023 1500 BP: 126/59 93/46 126/50 Patient Position for BP: Lying Down Lying Down Lying Down Pulse: 86 56 58 SpO2: 98 % 90 % 93 % Oxygen Saturation Before Activity: 97% on 0L in bed semi-riley's with eyes open During Activity: 93% on 0L with amb After Activity: 87% on 0L in bed with eyes closed, placed on 2 liters via oxymask able to maintain SPO2 of 97% Transfer & Bed Mobility Supine to/from Sit: Stand by assist Sit to/from Stand: Minimal assist Sit to/from Stand - Method: From standard seat height;w/ Assistive device (2ww) Gait Distance (m): 25 m (moderate verbal cues for amb within bounds of walker and keeping walker closer to self) Device: Front wheeled walker Assistance: Minimal assist Gait Quality (General): Shuffling;Unsteady Sitting Static Balance Level of Assistance: Upper Extremity Support Other: seated rest breaks Static Standing Balance Feet Shoulder Width Eyes Open (sec): 60 (without UE support Phyllis , exhibits mild ant displacement) Exercises Supine Heelslides : 10 reps (with resistance into extension) Straight Leg Raises: 10 reps Ankle Pumps : 10 reps Bridging : 3 reps (for positioning in bed) Exercises Sitting LAQ Reps: 20 reps Seated Hip Flexion : 20 reps Heel/Toe Raises: 10 reps Exercises Standing Marchin reps Standing Other: 10 reps (with UE support on 2ww alt toe taps on glove box) Interdisciplinary Communication RN: ok to see patient for PT, discussed following session Family: present throughout session Fall Risk Assessment: Patient is deemed high fall risk per protocol Positioning: Heel Offloading with Pillows Bed exit alarm placed Treatment rendered: Gait training;Transfer training;Bed mobility training;Positioning;Strengthening;Neuromuscular re-education Total treatment time: 40 minutes A: With approach Clarissa is in bed - writer editor notes significant improvement in alertness and participation in therapy this PM. She is pleasantly confused and often reports we are in [place], [place] - writerredirects that she is at the hospital in [place], [place]. Exhibits significant improvement with ambthis PM ambulating up to 25m with UE support on 2ww. She benefits from visual demo and verbal cues to amb within bounds of walker which she is intermittently able to implement. Guided through standing, seated, and supine LE exercise which she performs with ease with no report of increase in pain but does report that she feels fatigued following session. Session ended with all needs met and call lamin t within reach. Anticipate once patient's lethargy clears that she would be a good candidate for acute rehab. Problem: Decreased Transfer Skills Goal: Patient will transfer bed to/from chair Description: Patient will transfer bed to/from chair with (6) Modified Parker with sliding board or pivot method. By 11-17-2023 Outcome: In progress Goal: Patient will transfer sit to/from stand Description: Patient will transfer sit to/from stand with (6) Modified Parker By 11-17-2023. Outcome: In progress Problem: Decreased Ambulatory Skills Goal: Improve gait Description: Ambulate 100 meters using Front - wheeled walker with (6) Modified Parker By 11-17-2023. Outcome: In progress Goal: Improve gait on stairs Description: Ascend/descend 7 +7 stairs using Cane with (6) Modified Parker .By 11-17-2023 Outcome: In progress Problem: Decreased Functional Motor Skills - PT Goal: Patient demonstrates improved balance Description: Pt to score at least 45/56 Mitchell Balance to indicate decreased risk for falls By 11-17-2023 Outcome: In progress P: Patient will be seen 5x/week until goals are met or patient is discharged. Next visit the plan is to work on standing balance, gait with least AD, stairs for home usage daily. DIRECTOR OF PSYCHOLOGY Appropriate: Yes Carola Spence PTA 11/09/2023 Pager: [facility] Dept [facility] * Juhi Dent, PharmD - 11/09/2023 2:58 PM CST Pharmacy Enoxaparin Prophylaxis Note Lucinda Kennedy : 1940 Sex: female Plan: 1) Recommended regimen: Enoxaparin 30mg SQ q12 hours (order has been placed for this regimen) 2) Next level planned: No level needed unless clinical change 3) PharmD will continue to follow. Please page with questions. Current regimen: Enoxaparin 30mg SQ q12 hours Estimated CrCl: ~32 mL/min Weight: 69.7 kg (153 lb 10.6 oz) (11/05/23 0003) Body mass index is 32.12 kg/m??. Patient???s renal function appears to be worsening. Lab Results Component Value Date CR 1.09 (H) 11/09/2023 CR 0.82 11/08/2023 CR 0.90 11/07/2023 Lab Results Component Value Date ANTIXALMW 0.32 11/09/2023 Assessment of level draw time: peak level drawn at appropriate time (4 - 6 hours post dose) Goal range: 0.2 - 0.4 IU/mL Assessment of regimen: level within goal range and will continue as previously ordered Juhi Dent, WalterD 11/09/2023 14:58 [facility] * Sera Fleming SLP CCC - 11/09/2023 11:20 AM CST Speech Language Pathology: Attempted to see patient this am x2. Pt sleeping soundly and not waking sufficiently for tx. Will re-attempt to see patient today as schedule permits. Sera Fleming SLP CCC, 11/09/2023 11:20 AM [facility] * Jesusita Aiken, SALES OPERATIONS CONSULTANT, GLASS BLOWER HELPER - 11/09/2023 7:31 AM CST SURGERY TRAUMA PROGRESS NOTE -ART EDUCATION PROFESSOR Lucinda Kennedy : 1940 Sex: female ASSESSMENT: Lucinda Kennedy is a 83 y.o. female with PMH of HTN, HLD, DM II who was admitted after a fall at home. Per report, patient was found at the bottom of the stairs by her . Imaging notable for below listed injuries. Neurosurgery consulted. CT head-neck angio showed increased SDH. Repeat HCT showing stable head bleeds Current known injuries: SDH along the posterior falx, right greater than left tentorial leaflets and right cerebral convexity SAH along the left frontoparietal regions near the vertex and the left ambient cistern. left periventricular hemorrhage about the caudate nucleus. TBI 24 hours events: patient continues to have intermittent confusion, easily reoriented. Not agitationor impulsivity. Patient is medically stable to be discharged to TCU PLAN: Potassium replaced Aggressive pulmonary toilet. Ordered Incentive spirometer XR Right foot Activity status: up with assist DVT prophylaxis: SCD, Lovenox 30 mg SQ BID GI prophylaxis: None Antibiotics: none Pain control: po pain meds ( naproxen) PT/OT: recommending Post-acute placement Xrays needed: XR Right Foot Labs needed: CBC, BMP, Mg, Phos Consulting services needed: none Disposition: Plan for discharge to: Acute Rehab SUBJECTIVE: S: patient awake, alert. Has intermittent confusion but redirectable. Reports right foot pain, worse with ambulation. Denies any pain, nausea or vomiting. at bedside, discussed POC including discharging to TCU once found. PHYSICAL EXAM: Vital Signs: Patient Vitals for the past 8 hrs: BP Pulse Resp Temp SpO2 11/09/23 0726 126/59 86 16 37 ??C (98.6 ??F) 98 % 11/09/23 0355 135/54 56 14 35.9 ??C (96.6 ??F) 92 % 11/08/23 2339 117/43 63 19 35.8 ??C (96.5 ??F) 93 % LABS: BMP Lab Results Component Value Date/Time NA 142 11/09/2023 0541 K 3.1 (L) 11/09/2023 05 CHLORIDE 105 11/09/2023 0541 CO2 30 11/09/2023 0541 GLU 91 11/09/2023 0541 UN 23 11/09/2023 0541 CR 1.09 (H) 11/09/2023 05 CA 8.8 11/09/2023 05 CBC w/Diff Lab Results Component Value Date/Time WBC 6.97 11/09/2023540 RBC 3.42 (L) 11/09/2023540 HGB 8.8 (L) 11/09/2023540 HCT 28.4 (L) 11/09/2023540 PLT 227 11/09/2023540 MCV 83.0 11/09/2023540 MCH 25.7 11/09/2023540 MCHC 31.0 11/09/2023540 RDW 16.0 (H) 11/09/2023540 MPV 12.0 11/09/202341 NEUTNO 5.80 11/04/20235 LYMPHAB 2.33 11/04/2023 2245 MONOABSNO 0.88 11/04/2023 2245 EOSNUMB 0.27 11/04/20235 BASO 0.07 11/04/2023 2245 Lab Results Component Value Date/Time MG 2.1 11/09/202341 Lab Results Component Value Date/Time PO4 3.9 11/09/2023540 RADIOLOGY: imaging reviewed XR FOOT RIGHT 3 V AP/OBL/LAT* (11/09/2023 10:36) Patient seen by and discussed with Surgery Chief Resident and Staff Physician. Jesusita Aiken APRN, GLASS BLOWER HELPER, 11/09/2023 7:32 AM Discharge Milestones Documentation Discharge Milestones completed daily by the documenting provider on the Primary Treatment Team, click here. [employer] HAND * Carola Spence, DIRECTOR OF PSYCHOLOGY - 11/08/2023 2:30 PM CST Physical Therapy Progress Note PT Discharge Recommendations Discharge Recommendations: Post-acute placement recommended. Level/type of placement (PT): Acute Rehab if meets admission criteria Barriers to placement (PT): No known barriers to placement Barriers to discharge to home/community: Insufficient activity tolerance;Home setting not accessible (stairs/architectural barriers);High falls risk If discharging to home, would need: Physical assistance when mobilizing Post discharge follow-up: Equipment Status: Equipment needs being determined PT Equipment Recommended: Front wheeled walker PM&R Recommended: Yes, for assessment of post-acute placement needs. Pt appears to be a candidate for higher intensity rehab services S: This is Iris and that's my brother when asked who is in the room visiting patient. Daughter was able to redirect that it was daughter and . Pain Pain Rating With Activity (Numeric): (does not report on pain) O: Mental Status Mental Status: Lethargic Vital Signs 11/08/2023 0900 11/08/2023 1100 11/08/2023 1558 BP: 134/64 119/51 134/59 Patient Position for BP: -- Lying Down Lying Down Pulse: -- 62 71 SpO2: -- 95 % 96 % SPO2 on 2 liters 97% Removed supplemental o2 sats at 91% without activity thus, placed back on 2 liters Transfer & Bed Mobility R/L sidelying : Phyllis is able to independently initiate task Supine to/from Sit: Minimal assist Sit to/from Stand: Minimal assist Sit to/from Stand - Method: From standard seat height;w/ Assistive device (2ww) Scooting: Moderate assist Gait Distance (m): (pre-gait activity marching in place) Device: Front wheeled walker Assistance: Moderate assist Gait Quality (General): Shuffling;Unsteady Exercises Sitting LAQ Reps: 10 reps (constant verbal cues to perform) Seated Hip Flexion : 10 reps (constant verbal cues to perform) Heel/Toe Raises: 10 reps Interdisciplinary Communication PA/ART EDUCATION PROFESSOR: updated PM&R PA following session RN: ok to see patient for PT, discussed mobility and lethargy Clinical Coordinator: patient's family requesting to speak with Bill Family: present, educated on different levels of rehab Positioning: Patient Positioned in Neutral Alignment Treatment rendered: Gait training;Transfer training;Bed mobility training;Positioning;Strengthening;Neuromuscular re-education Total treatment time: 30 minutes A: With approach Clarissa is in bed and her eyes are closed. When writer editor states her voice she responds right away but her eyes do not open. Nutrition Services Manager cues patient to move supine > seated with she is ableto initiate independently as well as works to scoot hips to edge of bed without prompting. Moving sit>stand is roughly the same from previous session however, patient appears to have increased difficulty with motor planing only stepping in place when cued to amb forward. Discontinued this task and moved on to seated LE exercises which patient is able to participate in with max verbal cues to perform. Anticipate once patient's lethargy clears that she would be a good candidate for acute rehab. Problem: Decreased Transfer Skills Goal: Patient will transfer bed to/from chair Description: Patient will transfer bed to/from chair with (6) Modified Parker with sliding board or pivot method. By 11-17-2023 Outcome: In progress Goal: Patient will transfer sit to/from stand Description: Patient will transfer sit to/from stand with (6) Modified Parker By 11-17-2023. Outcome: In progress Problem: Decreased Ambulatory Skills Goal: Improve gait Description: Ambulate 100 meters using Front - wheeled walker with (6) Modified Parker By 11-17-2023. Outcome: In progress Goal: Improve gait on stairs Description: Ascend/descend 7 +7 stairs using Cane with (6) Modified Parker .By 11-17-2023 Outcome: In progress Problem: Decreased Functional Motor Skills - PT Goal: Patient demonstrates improved balance Description: Pt to score at least 45/56 Mitchell Balance to indicate decreased risk for falls By 11-17-2023 Outcome: In progress P: Patient will be seen 5x/week until goals are met or patient is discharged. Next visit the plan is to work on standing balance, gait with least AD, stairs for home usage daily. DIRECTOR OF PSYCHOLOGY Appropriate: Yes Carola Spence PTA 11/08/2023 Pager: [facility] * Bill Olivera - 11/08/2023 12:37 PM CSTSummary: DC Planning DC Planning Patient is near medical readiness to DC to next level of care. It is not yet clear if she will be a[facility] candidate yet. Nutrition Services Manager spoke with patient's daughter over the phone. Also, had spoken with patient's father earlierin the week. We will start looking for TCUs around [place]. Also, she will do further research and call me back with more options. CC explained that we can't guarantee placement in their preferred place, this is up to facility, insurance coverage and bed availability. Also, Medicare patients will not be able to stay in the hospital indefinitely while we look for their preferred TCU. EGL[facility] G[facility] HAND * Victor M Enrique MD - 11/08/2023 12:00 PM CST Images from the original note were not included. SURGERY TRAUMA PROGRESS NOTE -PGY 1 Lucinda Romo Kennedy : 1940 Sex: female ASSESSMENT: 83 y.o. yo female with SDH R cerebral convexity and falx, scattered SAH and periventricular hemorrhage . The following services have been consulted PM&R, [facility] S[facility]TER AND BAGGER. Night Events: Nurse reported weakness of right leg overnight during neuro checks, upon examination by overnight resident determined decreased rom 2/2 to right ankle pain. -Pt required 3 prn doses of labetalol overnight to maintain goal of sbp<160 Day Events: -Patient cleared by PIN SORTER AND BAGGER and has resumed regular diet -Restarted prior oral bp regimen -CXR not concerning for pneumonia -Procal WNL -Started Naproxen BID and DIRECTOR OF PSYCHOLOGY allopurinol for suspected gout flare PLAN: Diet: Regular Diet Activity status: up with assist DVT prophylaxis: SCD GI prophylaxis: None Antibiotics: none Pain control: tylenol 650 prn, Naproxen 500 BID PT/OT: Yes Ordered Xrays needed: None Labs needed: PRN Consulting services needed: PM&R Disposition: Pending Placement at TCU SUBJECTIVE: S: Patient seen at bedside with and daughter at bedside, Daughter had concern about patientbeing not being a candidate for [facility]. Reassured daughter that currently patient would not benefit from [facility] as she would have to be able to participate with intensive rehab for atleast 3 hours and would be better served at a TCU. Daughter and verbalized understanding and agreement with current plan. No other acute compalints PHYSICAL EXAM: Vital Signs: Patient Vitals for the past 8 hrs: BP Pulse Resp Temp SpO2 11/08/23 2339 117/43 63 19 35.8 ??C (96.5 ??F) 93 % 11/08/23 2100 146/68 65 16 -- 92 % 11/08/23 1948 146/68 65 -- -- -- 11/08/23 1911 (!) 165/64 67 17 35.9 ??C (96.6 ??F) 96 % 11/08/23 1800 147/70 66 22 -- (!) 89 % FRANK COMA SCALE (GCS) Eyes: 4 - Opens eyes spontaneously Verbal: 4 - Confused, disoriented Motor: 6 - Obeys commands SUM: 14 Physical Exam Constitutional: General: She is not in acute distress. Appearance: She is not ill-appearing. Comments: Lethargic and sleepy Eyes: Extraocular Movements: Extraocular movements intact. Pupils: Pupils are equal, round, and reactive to light. Cardiovascular: Rate and Rhythm: Normal rate and regular rhythm. Pulses: Normal pulses. Heart sounds: Normal heart sounds. Pulmonary: Effort: Pulmonary effort is normal. Breath sounds: Normal breath sounds. Comments: No cough today Musculoskeletal: Right ankle: Tenderness present. Legs: Comments: Patient endorses severe pain on palpation of right ankle, Decreased ROM. No redness or swelling. Skin: General: Skin is warm and dry. Neurological: General: No focal deficit present. Mental Status: She is alert. GCS: GCS eye subscore is 4. GCS verbal subscore is 4. GCS motor subscore is 6. Cranial Nerves: Cranial nerves 2-12 are intact. Sensory: Sensation is intact. Motor: Motor function is intact. Coordination: Coordination is intact. Comments: Patient limping and has decreased weight bearing on right leg(likely 2/2 to pain) LABS: None Juan Loera MD, 11/09/2023 12:20 AM Discharge Milestones Documentation Discharge Milestones completed daily by the documenting provider on the Primary Treatment Team, click here. FACULTY NOTE I saw and evaluated the patient on the date of the resident's note. I discussed with the resident and agree with the resident???s findings and plan documented in the resident???s note from above. Anyrevisions by me are documented. Victor M Enrique MD, 11/09/2023 8:29 AM [facility] * Sinai Brady PA-C - 11/08/2023 11:33 AM CST Physical Medicine & Rehabilitation Follow-Up Lucinda Kennedy : 1940 Sex: female Patient lethargic, rouses briefly to acknowledge writer editor before returning to sleep. Unable to maintain wakefulness to meaningfully engage in history or exam Case discussed with OT this AM who attempted to see patient but was unable to work with patient dueto patient's level of alertness. Exam: Vitals: BP 119/51 (Cuff Location: Right Arm) Pulse 62 Temp 35.9 ??C (96.6 ??F) (Tympanic) Resp 16 Ht 1.473 m (4' 10) Wt 69.7 kg (153 lb 10.6 oz) SpO2 95% BMI 32.12 kg/m?? Gen: no acute distress Pulm: breathing comfortably on room air Abd: non distended Neuro: lethargic, rouses briefly to gentle tactile/verbal stimulation, has difficulty maintaining wakefulness for conversation Psych: calm Skin: warm and dry Impression: Lucinda Kennedy is a 83 y.o. right hand dominant female with chronic medical conditions including HTN, DM II, and HLD, who was admitted to [facility] 11/04/2023 after being found unconscious at the bottom of a flight of stairs, presumably due a fall. GCS 14 upon presentation. She was found to have TBIwith SDH of the R>L tentorial leaflets and R cerebral convexity, scattered SAH, L periventricular hemorrhage, and a small L frontal IPH. Injuries were non- operatively managed, with a repeat CT head stable. She was started on Keppra for seizure prophylaxis, required a Clevidipine drip for blood pressure control - now discontinued. During her hospital course she has had ongoing confusion and impulsivity, and is currently prescribed Depakote. Became restless overnight 11/06-11/07 and was given zyprexa, more somnolent 11/07 especially in the AM, suspected to be related to zyprexa. 11/08 remains quite lethargic, level of alertness limiting ability to participate with therapies. Rehab Dx: traumatic brain injury Recommendations: Continue PT to address balance, mobility, gait, transfers, safety Continue OT to address self care, ADL's, adaptive equipment Continue PIN SORTER AND BAGGER to address speech, swallow, communication, cognition Regarding disposition: patient quite lethargic in recent days, limiting ability to engage with therapies. If d/c imminent, suggest pursuit of TCU placement. Will continue to follow her progress and participation and update recommendations re: disposition as appropriate. Thank you for involving us in this patient's care. Please feel free to page me with questions/concerns. Parts of this note have been dictated using [employer] dictation software. Please excuse any weight loss sales consultant errors and feel free to contact me regarding such errors or confusion regarding intended message. Sinai Brady PA-C Pager via [facility] * Ruby Franklin, OTR/L - 11/08/2023 10:10 AM CST OT NOTE: Attempted OT session but pt was too lethargic to meaningful participate, falling asleep quickly andmumbling responses to questions. Will try to return later this PM as schedule allows (tomorrow willschedule session in the PM as RN reports she is usually more alert after 2:00pm). Aubree Franklin, OTR / L 11/08/2023 EGL[facility]UN HAND * Sera Fleming, [facility] - 11/08/2023 9:26 AM CST Speech-Language Pathology Progress Note 11/08/2023 PIN SORTER AND BAGGER Recommendations Discharge Recommendations (PIN SORTER AND BAGGER): Post-acute placement recommended. Acute Rehab if meets admission criteria No known barriers to placement Barriers to Discharge (PIN SORTER AND BAGGER): NA - Post acute placement is recommended and no barriers to placement known. Post Discharge follow-up (PIN SORTER AND BAGGER): PIN SORTER AND BAGGER at post-acute placement Recommend PM&R Consult (PIN SORTER AND BAGGER): Yes, for assessment of post-acute placement needs. Pt appears to be a candidate for higher intensity rehab services. Diet Recommendation: Current Diet : Regular Current Liquid: Thin liquids Medication Administration: Medications with thin liquid Aspiration Precautions: Upright with all eating and drinking Oral Hygiene: [place] teeth 2x/day Positioning Techniques: Seat fully upright and midline when eating Supervision Needed: Independent Instrumental Assessment Needed: No Additional Referrals Needed: None Problem: Dysphagia Goal: Prevent aspiration Outcome: In progress Pt was seen today for cognitive-linguistic dx/tx. Pt very lethargic this am. Restless overnight, but improved as compared to previous night. Not observed with PO intake this morning. Problem: Cognitive-Linguistic Deficit (Acute) Goal: Complete cognitive linguistic assessment Description: Patient will complete assessment of cognitive-linguistic abilities to determine rehab needs. Outcome: In progress Attempted RIPA administration today. Pt very lethargic and falling asleep during questions. Delirium precautions taken. Delirium Assessment - CAM Short (Confusion Assessment Method) Acute onset OR fluctuating course: Yes Inattention: No Disorganized Thinking: Yes Altered level of consciousness: Yes CAM result: Negative Time of Encounter: 917 Treatment Time: 10 minutes Pain: 6/10 (headache) Barriers to Learning: Cognitive linguistic deficit, Treatment Diagnosis: Cognitive communication deficit R41.841, Treatment Type:Cognitive-linguistic Treatment (24394, [id number]) Treatment Frequency: 2-3x per week CLINICAL IMPRESSIONS Poor participation this date d/t delirium. Cognitive-linguistic assessment not completed. Once pt clears, suspect she will have very good participation as she participates well when more alert. Speech-Language Pathologist: Sera Fleming SLP [facility], 11/08/2023 9:26 AM Pager: [employer] [facility] * Sinai Brady PA-C - 11/07/2023 3:57 PM CST Physical Medicine & Rehabilitation Follow-Up Lucinda Ryans : 1940 Sex: female Patient lethargic, rouses briefly and acknowledges writer editor, answers a few questions but unclear reliability, has difficulty maintaining alertness. Per RN, considerably improved compared to earlier interaction during the day Exam: Vitals: BP (!) 168/51 (Cuff Location: Right Leg) Pulse 71 Temp 37.2 ??C (99 ??F) (Tympanic) Resp 16 Ht 1.473 m (4' 10) Wt 69.7 kg (153 lb 10.6 oz) SpO2 96% BMI 32.12 kg/m?? Gen: no acute distress Pulm: breathing comfortably on room air Abd: non distended Neuro: lethargic, rouses briefly to gentle tactile/verbal stimulation, has difficulty maintaining wakefulness for conversation Psych: calm Skin: warm and dry Impression: Lucinda Kennedy is a 83 y.o. right hand dominant female with chronic medical conditions including HTN, DM II, and HLD, who was admitted to [facility] 11/04/2023 after being found unconscious at the bottom of a flight of stairs, presumably due a fall. GCS 14 upon presentation. She was found to have TBIwith SDH of the R>L tentorial leaflets and R cerebral convexity, scattered SAH, L periventricular hemorrhage, and a small L frontal IPH. Injuries were non- operatively managed, with a repeat CT head stable. She was started on Keppra for seizure prophylaxis, required a Clevidipine drip for blood pressure control - now discontinued. During her hospital course she has had ongoing confusion and impulsivity, and is currently prescribed Depakote. Became restless overnight 11/06-11/07 and was given zyprexa, more somnolent today especially in the AM, suspected to be related to zyprexa. Rehab Dx: traumatic brain injury Recommendations: Continue PT to address balance, mobility, gait, transfers, safety Continue OT to address self care, ADL's, adaptive equipment Continue PIN SORTER AND BAGGER to address speech, swallow, communication, cognition Regarding disposition: based on current documented functional status, anticipate would benefit fromongoing rehabilitation in the acute rehab setting. Will need to ensure that patient is able and willing to engage with therapies consistently, hopefully this will improve tomorrow, limited today (suspected related to zyprexa overnight). Will need insurance prior authorization for rehabilitation stay. We will continue to follow and update recommendations as appropriate. Thank you for involving us inthis patient's care. Please feel free to page me with questions/concerns. Parts of this note have been dictated using [employer] dictation software. Please excuse any weight loss sales consultant errors and feel free to contact me regarding such errors or confusion regarding intended message. Sinai Brady PA-C Pager via [facility] Total time spent on this encounter, on the date of service including pre-visit review of separatelyobtained history, [id number] interaction performing medically appropriate physical exam, patient counseling/education, interpretation of diagnostic results, care coordination and documentation was 35 minutes. [facility] HAND * Jazmine Thompson V - 11/07/2023 3:09 PM CST CULTURAL ASSESSMENT: SUMMARY: This writer editor saw pt. At 12:26 PM on 11/07/2023. Nutrition Services Manager introduced herself to pt.'s , and discussed with him on writer editor's role. Nutrition Services Manager asked pt.'s if he had any questions, comments, or concerns regarding pt.'s care. Pt.'s mentioned that he doesn't really know anything, so he will wait and see if later he would need assistance from writer editor. Nutrition Services Manager gave her contact information for any future questions, comments, or concerns. Jazmine Thompson V, 11/07/2023 3:27 PM [facility] HAND * Sera Fleming SLP [facility] - 11/07/2023 2:41 PM CST Speech-Language Pathology Progress Note 11/07/2023 PIN SORTER AND BAGGER Recommendations Discharge Recommendations (PIN SORTER AND BAGGER): Post-acute placement recommended. Acute Rehab if meets admission criteria No known barriers to placement Barriers to Discharge (PIN SORTER AND BAGGER): NA - Post acute placement is recommended and no barriers to placement known. Post Discharge follow-up (PIN SORTER AND BAGGER): PIN SORTER AND BAGGER at post-acute placement Recommend PM&R Consult (PIN SORTER AND BAGGER): Yes, for assessment of post-acute placement needs. Pt appears to be a candidate for higher intensity rehab services. Diet Recommendation: Current Diet : Regular Current Liquid: Thin liquids Medication Administration: Medications with thin liquid Aspiration Precautions: Upright with all eating and drinking Oral Hygiene: [place] teeth 2x/day Positioning Techniques: Seat fully upright and midline when eating Supervision Needed: Independent Instrumental Assessment Needed: No Additional Referrals Needed: None Problem: Dysphagia Goal: Prevent aspiration 11/07/2023 1441 by Sera Fleming SLP [facility] Outcome: In progress 11/07/2023 09 by Sera Fleming SLP [facility] Outcome: In progress Problem: Dysphagia Goal: Reassess swallowing function Description: Patient will participate in reevaluation of swallowing to determine readiness for oraldiet 11/07/2023 1441 by Sera Fleming SLP [facility] Outcome: Met 11/07/2023954 by Sera Fleming SLP [facility] Outcome: In progress Paged by RN with improved alertness levels. Pt much improved this pm. Asking for sherbet. Assessed this pm with thin liquids by straw sip, hard regular texture and sherbet. Pt with slowed but complete mastication and no overt s/sx of aspiration. Delirium Assessment - CAM Short (Confusion Assessment Method) Acute onset OR fluctuating course: Yes Inattention: Yes Disorganized Thinking: Yes Altered level of consciousness: No CAM result: Positive Time of Encounter: 1430 Treatment Time: 20 minutes Pain: 6/10 (headache) Barriers to Learning: Cognitive linguistic deficit, Treatment Diagnosis: Cognitive communication deficit R41.841, Treatment Type:Cognitive-linguistic Treatment (14789, [id number]) Treatment Frequency: 2-3x per week CLINICAL IMPRESSIONS Functional oropharyngeal swallow. Safe to restart baseline diet of regular textures and thin liquids. Ensure pt is upright for all PO intake and is alert. Speech-Language Pathologist: Sera Fleming SLP [facility], 11/07/2023 2:44 PM Pager: [employer] [facility] * Juan Loera MD - 11/07/2023 10:42 AM CST SURGERY TRAUMA PROGRESS NOTE -PGY 1 Lucinda Ryans : 1940 Sex: female ASSESSMENT: 83 y.o. yo female with SDH R cerebral convexity and falx, scattered SAH and periventricular hemorrhage . The following services have been consulted PM&R, PIN SORTER AND BAGGER. Night Events: -Pt reported to be pulling out lines overnight, given zyprexa 10 mg for agitation Day Events: -Patient diet changed to NPO due to aspiration concerns -Held oral antihypertensives to start tomorrow pending clearance from PIN SORTER AND BAGGER -Start Maintenance fluids LR 110ml/hr ending 11/08/23 AM -Hydralazine and Labetalol PRNs placed to maintain BP Goal of SBP<160 -Chest XR ordered due to new cough heard at bedside, of note mentioned Clarissa has had this cough for years -Procal ordered due to concerns for pnemonia. PLAN: Diet: NPO Activity status: up with assist DVT prophylaxis: SCD GI prophylaxis: None Antibiotics: none Pain control: tylenol 650 prn PT/OT: Yes Ordered Xrays needed: Chest xray ordered Labs needed: PRN Consulting services needed: PM&R Disposition: Pending clinical course SUBJECTIVE: S: Patient seen at bedside with present. Daughter present via cellphone. Daughter asked about POA for her to help her dad with caring for her mother. Advised to speak with home health care social worker to start paperwork. Updated family on plan. Questions answered PHYSICAL EXAM: Vital Signs: Patient Vitals for the past 8 hrs: BP Pulse Resp Temp SpO2 11/07/23 0830 147/61 -- -- -- -- 11/07/23 0710 106/41 73 20 -- 94 % 11/07/23 0400 131/85 77 21 -- 98 % 11/07/23 0344 144/54 77 20 37.3 ??C (99.2 ??F) 97 % FRANK COMA SCALE (GCS) Eyes: 2- Opens eyes in response to painful stimuli Verbal: 2 - Incomprehensible sounds Motor: 4 - Flexion / Withdrawal to painful stimuli SUM: 8 Physical Exam Constitutional: General: She is not in acute distress. Appearance: She is not ill-appearing. Comments: Lethargic and sleepy Eyes: Extraocular Movements: Extraocular movements intact. Pupils: Pupils are equal, round, and reactive to light. Cardiovascular: Rate and Rhythm: Normal rate and regular rhythm. Pulses: Normal pulses. Heart sounds: Normal heart sounds. Pulmonary: Effort: Pulmonary effort is normal. Breath sounds: Normal breath sounds. Comments: Productive cough heard, Pt currently using 6L O2 via mask Skin: General: Skin is warm and dry. Neurological: Comments: Unable to perform due to lethargy LABS: Results for orders placed or performed during the hospital encounter of 11/04/23 (from the past 24 hour(s)) POC GLUCOSE Result Value Ref Range POC Glucose 173 (H) 70 - 100 mg/dL CBC WITH PLATELET Result Value Ref Range WBC 10.82 (H) 4.00 - 10.00 k/cmm RBC 3.58 (L) 3.90 - 5.20 m/cmm Hgb 9.1 (L) 11.5 - 15.7 g/dL Hematocrit 29.6 (L) 34.0 - 45.0 % MCV 82.7 80.0 - 100.0 fL MCH 25.4 25.0 - 32.0 pg MCHC 30.7 (L) 31.0 - 36.0 g/dL RDW 15.8 (H) 11.5 - 14.5 % Plt 253 150 - 400 k/cmm MPV 11.3 6.5 - 12.5 fL PANEL BASIC METABOLIC (BMP) Result Value Ref Range Sodium 141 135 - 148 mEq/L Potassium 3.8 3.5 - 5.3 mEq/L Chloride 108 92 - 108 mEq/L CO2 27 22 - 30 mEq/L AnGap 6 (L) 8 - 16 mEq/L Glucose 184 (H) 70 - 100 mg/dL BUN 15 8 - 23 mg/dL Creatinine 0.91 0.50 - 1.00 mg/dL Calcium 8.7 (L) 8.8 - 10.2 mg/dL eGFR (2020 CKD-EPI) 63 >=60 ml/min/1.73m2 PHOSPHORUS Result Value Ref Range Phosphorus 4.2 2.5 - 4.5 mg/dL MAGNESIUM Result Value Ref Range Magnesium 2.4 1.6 - 2.4 mg/dL BLOOD GASES Result Value Ref Range PH Jalen 7.36 7.32 - 7.42 PCO2 Jalen 48 41 - 51 mmHG PO2 Jalen 86 (H) 25 - 40 mmHG Bicarb Jalen 26 24 - 28 mEq/L O2 Sat Jalen 96 % Base Exc Jalen 1.0 -10.0 - 2.0 mEq/L Narrative Draw on Room Air: No O2 LPM (liter/min) Level->4 via mask FiO2 Level: 100 POC GLUCOSE Result Value Ref Range POC Glucose 149 (H) 70 - 100 mg/dL POC GLUCOSE Result Value Ref Range POC Glucose 115 (H) 70 - 100 mg/dL PHOSPHORUS Result Value Ref Range Phosphorus 5.0 (H) 2.5 - 4.5 mg/dL MAGNESIUM Result Value Ref Range Magnesium 2.3 1.6 - 2.4 mg/dL PANEL BASIC METABOLIC (BMP) Result Value Ref Range Sodium 145 135 - 148 mEq/L Potassium 3.5 3.5 - 5.3 mEq/L Chloride 111 (H) 92 - 108 mEq/L CO2 26 22 - 30 mEq/L AnGap 8 8 - 16 mEq/L Glucose 108 (H) 70 - 100 mg/dL BUN 15 8 - 23 mg/dL Creatinine 0.90 0.50 - 1.00 mg/dL Calcium 8.8 8.8 - 10.2 mg/dL eGFR (2020 CKD-EPI) 64 >=60 ml/min/1.73m2 CBC WITH PLATELET Result Value Ref Range WBC 7.45 4.00 - 10.00 k/cmm RBC 3.49 (L) 3.90 - 5.20 m/cmm Hgb 8.8 (L) 11.5 - 15.7 g/dL Hematocrit 29.0 (L) 34.0 - 45.0 % MCV 83.1 80.0 - 100.0 fL MCH 25.2 25.0 - 32.0 pg MCHC 30.3 (L) 31.0 - 36.0 g/dL RDW 15.9 (H) 11.5 - 14.5 % Plt 249 150 - 400 k/cmm MPV 11.0 6.5 - 12.5 fL PROCALCITONIN Result Value Ref Range Procalcitonin 0.12 ng/mL Juan Loera MD, 11/07/2023 10:42 AM Discharge Milestones Documentation Discharge Milestones completed daily by the documenting provider on the Primary Treatment Team, click here. [facility] [facility] Associated attestation - Mariama Catherine DO - 11/12/2023 2:36 PM FIBREGLASS GUN HAND FACULTY NOTE I saw and evaluated the patient on the date of the resident's note. I discussed with the resident and agree with the resident???s findings and plan documented in the resident???s note from above. Anyrevisions by me are documented. Mariama Catherine, DO, 11/12/2023 2:36 PM * Kasey Ennis, PT - 11/07/2023 10:29 AM CST Per RN, is snowed on meds, starting slowly to wake up. Not appropriate for up and walking yet. Dt scheduling, unable to reschedule today. [employer] HAND * Sera Fleming, [facility] - 11/07/2023 9:55 AM CST Speech-Language Pathology Progress Note 11/07/2023 PIN SORTER AND BAGGER Recommendations Discharge Recommendations (PIN SORTER AND BAGGER): Post-acute placement recommended. Acute Rehab if meets admission criteria No known barriers to placement Barriers to Discharge (PIN SORTER AND BAGGER): NA - Post acute placement is recommended and no barriers to placement known. Post Discharge follow-up (PIN SORTER AND BAGGER): PIN SORTER AND BAGGER at post-acute placement Recommend PM&R Consult (PIN SORTER AND BAGGER): Yes, for assessment of post-acute placement needs. Pt appears to be a candidate for higher intensity rehab services. Diet Recommendation: Current Diet : NPO Current Liquid: NPO Medication Administration: None orally Oral Hygiene: [place] teeth 2x/day Instrumental Assessment Needed: No Additional Referrals Needed: None Page PIN SORTER AND BAGGER if alertness levels improve. Will re-evaluate today as indicated and available. Problem: Dysphagia Goal: Prevent aspiration Outcome: In progress Goal: Reassess swallowing function Description: Patient will participate in reevaluation of swallowing to determine readiness for oraldiet Outcome: In progress Paged received this am about change in pt's alertness levels following overnight. Increased restlessness, delirium, and given zyprexa. Pt made NPO by tx team this am d/t aspiration concerns. On arrival, pt sleeping soundly. Pt somewhat opening eyes and attempting to communicate, but speech is very d ysarthric and pt lethargic. No appropriate for PO trials at this time. Education provided to at bedside re PIN SORTER AND BAGGER role and delirium dysphagia. 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 Pt is pending further imaging to ensure no change in TBI. Recommend continuing NPO at this time. RN to page PIN SORTER AND BAGGER with improved alertness levels and will see again today based on improvement. Speech-Language Pathologist: Sera Fleming, STEPHIE CCC, 11/07/2023 9:59 AM Pager: [phone] EGLASS GUN HAND * Ruby Franklin, OTR/L - 11/06/2023 4:39 PM CST Occupational Therapy Progress Note 11/06/2023 OT Discharge Recommendations Discharge Recommendations: Post-acute placement recommended Level/type of placement (OT): Acute Rehab if meets admission criteria Post Discharge Follow-up: OT at post-acute placement OT In-patient follow-up / recommended referrals: Continue skilled OT services to achieve the goals on the plan of care / maximize safety and independence with ADL's / IADL's - Recommended Frequency: 5x / week - Anticipated Duration of OT services: throughout hospital stay - Interventions: ADL retraining, activity tolerance, functional mobility, functional cognition, andAROM PM&R Consult Recommended: Precautions/Restrictions: Activity Level: Up with Assist (11/05/23 1300) General Precautions: Falls Risk (aspiration) (11/05/23 1300) SUBJECTIVE: Pain Pain Rating With Activity (Numeric): no overt signs of pain Action Taken: No action needed OBJECTIVE: Pt agreeable to OT session. She was in the middle of a nap when I first arrived so was alittle more lethargic than yesterday. When sleeping, was on 5L via face mask. Removed when she was awake but pt desatted to 87% - put 2L O2 via N/C with sats >90% for the rest of the session. Activities of Daily Living Lower Body Dressing: Moderate assist (50% patient effort) socks Functional Mobility Supine to/from Sit: Moderate assist (50% patient effort) Functional Mobility in Room: Supervision/Stand by assist (sitting EOB) Cognition Mental Status: Lethargic;Follows 1 step direction (just woke up from a nap) Did not recall therapy session yesterday or sitting up in the chair; did not recall what she had for breakfast today The Orientation Log (O-Log) - limited by aphasia needing multiple choice to correctly provide answer 1 [address] is this? [address]? 1 What is the name of the hospital? 1 What the month? 0 What is the date? 0 What is the year? 0 What day of the week is it? 0 What is the time right now? 3 What brought you to the hospital? 0 What kind of injuries did you have? 7 TOTAL score (out of 30) Chavez: 3 = spontaneous/free recall 2 = logical cueing 1 = multiple-choice, phonemic cueing 0 = unable, incorrect, inappropriate Visual Perception Denies any changes in visual acuity or diplopia initially. When I brought that she had mentioned double vision to speech yesterday she said I never said that! My vision is fine Visual Scanning (Cancellation Q) - pt with significant difficulty completing. With cueing to focus on smaller target she would be able to find 2 or 3 Q's but it was very unorganized scanning pattern.Most scanning was on the right side of the page. When inquired further pt reports the letters are on top of each other. She was able to read across the rows with 100% accuracy. Line Bisection -- 75% accuracy. Instead of bisecting the lines on the top right corner, pt switchedthe page around to finish that section in the bottom right. Reading -- left neglect noted when reading but with cueing was able to attend to left side. ASSESSMENT: Pt more lethargic during session, having just woken from a nap, but she continues to beconfused with expressive aphasia. Pt with left visual inattention (possible visual hemianopia but inconsistent results). Pt would benefit from post acute rehab after discharge. PLAN: Continue skilled OT services to achieve the goals on the plan of care: Plan For Next OT Session: ADLs at the sink Total treatment time: 25 minutes OT interventions and time spent on each: Self care/Home mgmt/ADL: 25 minutes Ruby Franklin, OTR/L Pager: [facility] OT Department EGLASS GUN HAND * Sera Fleming SLP CCC - 11/06/2023 2:32 PM CST Speech Language Pathology: Pt not seen today d/t staffing and time constraints. Will plan to see pt tomorrow for cognitive-linguistic dx/tx and swallow follow up. Sera Fleming SLP CCC, 11/06/2023 2:32 PM EGLASS GUN HAND * Shy Higuera - 11/06/2023 11:04 AM CST Was unable to draw blood because nurse requested lab to come back later. Notified YOVANY Cornejo at 11:04. Patient's visitor stated that these labs are duplicate, informed YVOANY Cornejo she will call lab if needed. Shy Higuera, 11/06/2023 11:04 AM EGLASS GUN HAND * Bill Olivera - 11/06/2023 10:56 AM CSTSummary: Care Coordination Assessment Care Coordination Assessment Expected DC Date: 11/07/2023 Social Information Lift Truck Operator Used: None needed Decision Maker at Admission: Self Living Situation: Home (House with . 7 steps to get in the house. All living in one level.) Patient Identified Support System: and daugther. Not sure if they have 24/7 assist Services Receiving: Not known Complex Medical Needs: None (TBD) Transportation Used for Discharge: Family or medical ride Safety Concerns: None Behavioral Health Concerns: None Patient Family Goals Patient's Discharge Goal: Home or rehab Family's Discharge Goal: Home or rehab Plan/Interventions Discharge Plan: SNF, Other (comment) (TBD) Was Patient Choice Provided?: Yes Who was Choice Provided to?: Family Member Patient preference?: Close to Home Patient Information Verification Verified demographic information, including SSN, Next of Kin, and Guardianship: Yes Verified PCP: Yes If post-acute placement is needed, have vaccination status needs been addressed?: Yes Risks for Readmission: Access to f/u appointments dialysis clinical manager will continue to follow until DC SUMMARY Patient lives at home with . She has some help but unclear if 21/05 assist. Is patient OK with Post Acute placement? YES. They would like [facility]. Nurse explained PMnR will decide if she is a good acute rehab candidate. If she needs TCU, ok to go around home. Choice(s) given to patient/family. Destinations updated. Preferred place(s) marked with a star. Patient/family aware we can't guarantee placement in their preferred place, this is up to facility, insurance coverage and bed availability. Patient says his/her PCP is: Eloise Reeves, DO Inbasket notification sent via Care Everywhere EGLASS GUN HAND * Karime Allison PA-C - 11/06/2023 8:06 AM CST NEUROSURGERY INPATIENT PROGRESS NOTE: NEUROSURGICAL INJURIES: SAH SDH NEUROSURGICAL OPERATIONS: NA OTHER CO-MORBIDITIES AND DIAGNOSES: Subjective: Lucinda Kennedy is a 83 y.o. who was admitted 11/04/2023 10:39 PM after a fall. Overnight, ADAM, slept well, denies pain this morning Objective: Physical exam: BP 121/54 (Cuff Location: Right Arm) Pulse 75 Temp 36.9 ??C (98.4 ??F) (Tympanic) Resp 18 Ht 1.473 m (4' 10) Wt 69.7 kg (153 lb 10.6 oz) SpO2 92% BMI 32.12 kg/m?? Gen: alert, NAD. Lying in bed. Pulm: no respiratory distress Cardiac: regular rate and rhythm Abd: soft, minimally tender to palpation, nondistended. Extrem: warm, well-perfused, no edema. Skin: no rashes, lesions. Neuro: Mental status: Alert, awake. Oriented to self, date, and place. Normal speech and language. Cranial Nerves: II-XII fully intact Motor: Follows commands x4 extremities, 5/5 molding fitter strength and plantar/dorsiflexion bilaterally, no pronator drift Sensory: Sensation intact in all [address] 11/05 11:15 am is stable Assessment: In assessment, Lucinda Kennedy is a 83 y.o. female with past medical history of hypertension, hyperlipidemia and diabetes who presents emergency department after a fall at home. Per report, patient was found at the bottom of the stairs by her . Unclear if she is taking blood thinners, though on preliminary review she is not. On exam, patient is awake, alert though only partially oriented. She has no obvious signs of trauma and she is otherwise neurologically intact. Cross-sectional imaging with small subarachnoid hemorrhage and small subdural hemorrhage. She is notably hypertensive to 190s systolic on cuff pressure in the ED. . Plan: Today, we are planning on no significant changes. Plan: - Activity: as tolerated - Na goals: normal - BP goals: < 160 - Seizure prophylaxis: Keppra x 7 days - DVT prophylaxis: SCD's, may start chemical ppx [address] (11/07 ~ noon) - Dispo: per primary - Pt should f/u in TBI clinic - Follow up in NSGY clinic PRN Neurosurgery will follow peripherally, please contact long chain dyeing machine operator resident with any questions or concerns. Staffed with Karime Sheikh PA-C, 11/06/2023 8:06 AM Neurosurgery ALICIA Discharge Milestones Documentation Discharge Milestones completed daily by the documenting provider on the Primary Treatment Team, click here. EGLASS GUN HAND * Derek Marie RN - 11/06/2023 12:58 AM CST Images from the original note were not included. TRANSFER OUT NOTE D: Lucinda Kennedy admitted on 11/04/2023 with diagnosis of SDH and SAH with Periventricular hematoma. Medical history includes: No past medical history on file. Surgical history includes: No past surgical history on file. Principal Problem: Fall, initial encounter Resolved Problems: * No resolved hospital problems. * Procedures during hospitalization include: * No surgery found * Transferred patient due to: Stabilized condition Patient Belonging 11/05/2023 1550 Location: H given to daughter Jewelry Location: H given to daughter Medications brought in by patient?: Given to family to take home A: Transferred patient from SICU 2 to STN4 at 23:40, via bed. Transferred with: RN Transferred with all property: yes Family made aware of transfer: yes R: Tolerated transfer. well P: Commence with cares on receiving unit. Derek Marie RN, 11/06/2023 1:00 AM EGLASS GUN HAND * Gale Nassar MDIV - 11/05/2023 4:48 PM CST Spiritual Care Note Lucinda Kennedy : 1940 Sex: female LOS: 1 day Summary: Reviewed chart and consulted unit rounds and RN José. Lucinda is up in chair, and supported by spouse and daughter. Lucinda expresses being here due to a fall, but feeling better at this time. No needs assessed, though spiritual care visit, introduction and assessment of needs appreciated. Left card/note for follow up, if desired. Plan: Chaplains are available as needed. Gale Nassar MDIV, 11/05/2023 4:49 PM Pager: [phone] EGLASS GUN HAND * Kindra Nichole RN - 11/05/2023 1:19 AM CST Upon admission, a Four Eyes Skin Inspection was completed with Rafa Goodman RN. Skin injuries were NOT present, and skin breakdown needing further assessment will be added to Avatar. Will implement interventions from Skin INJURY Bundle as appropriate. Kindra Nichole RN, 11/05/2023 1:20 AM EGLASS GUN HAND * Hernandez Mathur MD - 11/05/2023 12:[place] [address] [facility]#: [id number] PATIENT: LUCINDA KENNEDY : 1940 DATE DICTATED: 11/05/2023 SURGERY STAFF DAILY PROGRESS NOTE DATE OF SERVICE: 11/05/2023 I saw and evaluated the patient. I discussed management with residents, GLASS BLOWER HELPER, and PAs on the Neurosurgery team and agree with documented findings and plan. Please see resident consult note dated 11/05/2023. I personally reviewed the history, exam, images and plan and agree with note as written. Ms Kennedy is an 83-year-old female with history of hypertension and hyperlipidemia, who presentedto the emergency room for evaluation after a presumed fall. The apparently heard a loud crash around the time Ms Kennedy suffered the injury. On presentation, she did not recall the fall andwas not oriented to place, but otherwise was oriented to self and date. She is moving all extremities with apparent full strength. CT of the head demonstrated a right tentorial as well as parafalcinesubdural hematoma as well as a relatively focal intraventricular hemorrhage along the left lateral wall of the left lateral ventricle. She was apparently not on any anticoagulation. We continue closeneurological observation. Fortunately, the repeat head CT was stable. Hernandez Mathur MD, PhD Staff Physician Neurosurgery Service Received in Capacitor Inspector: 11/05/2023 17:07:17 M: /[id number] TX/MODL EGLASS GUN HAND documented in this encounter H&P Notes * Carlos Kaur, DO - 11/04/2023 10:47 PM CST TRAUMA SURGERY HISTORY AND PHYSICAL - PGY 1 Lucinda Kennedy : 1940 Sex: female Patient Arrival Date and Time: 11/04/2023 22:39 History of Present Injury Event: Patient with reported fall down stairs on blood thinners with new onset confusion, different from baseline. LOC: Yes - brief < 1 hr INJURY CAUSE: Fall down stairs Protective Devices: None Trauma Team Activated: Yes - Tier 2 Trauma Team Notified by: [employer] Alert received at 4633 Tier Level page received at 9531 Staff Surgeon: Quinn Covarrubias MD Pediatric Patient < 15 years: No. [place] Trauma Team Time Out Completed: No HISTORY Past Medical History: HTN, DM Past Surgical History: suspected abdominal surgery and Social History: Unable to obtain Family History: Unable to obtain Medications: allopurinol, chlorthalidone, losartan, metformin, rosuvastatin, venlafaxine; no known blood thinners prescribed Allergies: Assessed: none Patient accepts blood products: Not inquired of patient/family at this time REVIEW OF SYSTEMS Negative aside from that noted in HPI PHYSICAL EXAM Vital Signs: BP: (!) 206/90 (11/04/232247) Pulse: (!) 104 (11/04/232250) Resp: (!) 24 (11/04/232250) SpO2: 96 % (11/04/232250) Temp: 36.7 ??C (98.1 ??F) (11/04/232241) Frank Coma Scale: Motor 6=Obeys commands Verbal 4=Confused Eye opening 4=Spontaneous TOTAL 14 Neurologic: alert and oriented, moves all extremities, and strength symmetrical HEENT Eyes: normal; pupils: PERRL Head: normocephalic, atraumatic Ears: normal externally; tympanic membranes: not examined Nose/sinus: normal Throat/Oropharynx: normal Face: normal Neck: cervical collar in place Chest: normal, clear to auscultation bilaterally Pulmonary: Breath sounds clear, symmetrical. No wheezes, rales, consolidation Cardiovascular Heart: Rhythm regular, rate normal, no murmur Peripheral vascular: bilateral carotid, radial, femoral, DP and PT pulses are normal. Gastrointestinal Abdominal:soft, nontender, nondistended; leonardo and low transverse well healed incisions Rectal: not examined Genitourinary: not examined Musculoskeletal Back: No evidence of injury; Upper Thoracic subcutaneous cyst Extremities: No evidence of injury Upper: Both upper extremities have normal joint range of motion and intact strength. Lower: Both lower extremities have normal joint range of motion and intact strength. Pelvic Stability: stable PROCEDURES 11/04/2023 - ART line REVIEW OF LABORATORY DATA Lab Results BMP Lab Results Component Value Date/Time NA 144 11/04/20232247 CHLORIDE 106 11/04/20232247 GLU 234 (H) 11/04/20232247 CR 0.81 11/04/20232247 CBC Lab Results Component Value Date/Time HGB 10.3 (L) 11/04/2023 2248 IMAGING RESULTS (Include outside hospital results) CXR: no obvious traumatic abnormalities Pelvis XR: not done FAST:negative CT-Head: SDH R cerebral convexity and falx, scattered SAH, periventricular hemorrhage CT-Cervical Spine: no obvious traumatic abnormalities CT-Chest/Abdomen/Pelvis: no obvious traumatic abnormalities CT-Thoracic Spine: no obvious traumatic abnormalities CT-Lumbar Spine: no obvious traumatic abnormalities Other: not done ASSESSMENT Current known injuries: SDH R cerebral convexity and falx, scattered SAH, periventricular hemorrhage TREATMENT PLAN (Include future diagnostic studies, procedures and surgery) Admit to [facility] Trauma Surgery Service Neurosurgery Consult paged out. Neurosurgery resident arrived at 2310. Consult to SICU Full Code Cardiac Monitoring q1Hr neuro checks, CMS checks Incentive Spirometer Bedrest with C, T, & L spine precautions C-spine exam and possible clearance once final reads posted NPO until final reads on radiography Consult PIN SORTER AND BAGGER and keep strict NPO if Age > 70 immobilized (traction, TLSO, Cervical Collar, HALO) or with rib fractures Aspiration precautions If patient > 80 years old order Pall Care consult PT/OT with Cog Screen when appropriate Order Delirium Order Set for Age > 65 DVT ppx: SCD's, chemoprophylaxis to be held at this time due to Intracranial Hemorrhage Tertiary exam in AM Carlos Kaur DO, 11/04/2023 10:54 PM General Surgery PGY1 [facility] Surgery Service EGLASS GUN HAND Associated attestation - Quinn Covarrubias MD - 11/05/2023 10:43 AM FIBREGLASS GUN HAND FACULTY NOTE I saw and evaluated the patient today, 11/05/2023. I discussed with the resident and agree with the resident???s findings and plan documented in the resident???s note from above. Any revisions by me are documented. Quinn Covarrubias MD, 11/05/2023 10:43 AM documented in this encounter Procedure Notes * Priscilla Holcomb MD - 11/04/2023 11:43 PM CSTAssociated Order(s): Arterial Line Arterial Line Performed by: Priscilla Holcomb MD Authorized by: Rito Graf MD Consent: Consent obtained: Verbal Consent given by: Patient Risks discussed: Pain, bleeding and infection [place] protocol: Patient identity confirmed: Verbally with patient, arm band and hospital- assigned identification number Indications: Indications: hemodynamic monitoring Pre-procedure details: Skin preparation: Chlorhexidine Preparation: Patient was prepped and draped in sterile fashion Sedation: Sedation type: None Anesthesia: Anesthesia method: Local infiltration Local anesthetic: Lidocaine 1% WITH epi Procedure details: Location: L radial Needle gauge: 20 G Placement technique: Seldinger and ultrasound guided Number of attempts: 1 Transducer: waveform confirmed Post-procedure details: Post-procedure: Biopatch applied, secured with tape, sterile dressing applied and sutured CMS: Normal Procedure completion: Tolerated well, no immediate complications Priscilla Holcomb MD, 11/04/2023 11:43 PM EGLASS GUN HAND Associated attestation - Rito Graf MD - 11/05/2023 2:30 AM FIBREGLASS GUN HAND I was present for the entire procedure. Rito Graf MD, 11/05/2023 2:30 AM documented in this encounter Consult Notes * Priscilla Fair PharmD - 11/15/2023 12:54 PM CSTAssociated Order(s): DISCHARGE MED REC FINAL REVIEW BY PHARMACY PHARMACY DISCHARGE NOTE Lucinda Kennedy : 1940 Sex: female Pharmacy service was consulted for review of patient's discharge medications. Assessment: Pertinent points to note: I have reviewed the patient's medications for discharge and have discussed the necessary changes with the provider. Changes have been made and medication list updated and complete. Please page with any questions. Priscilla Fair PharmD 11/15/2023 12:54 For questions regarding this note, please contact pharmacist on service at [facility] ([facility]) [phone]. If no response within needed timeframe, please contact central pharmacy via phone at [phone]. Planned discharge medications are: Medication List Medications Indications acetaminophen 325 mg tablet Commonly known as: TYLENOL Take 2 tablets (650 mg) by mouth every 6 hours as needed for Mild Pain. allopurinol 100 mg Tabs Commonly known as: ZYLOPRIM Take 0.5 tablets (50 mg) by mouth daily. amLODIPine 5 mg Tabs Commonly known as: NORVASC Take 1 tablet (5 mg) by mouth daily. carvedilol 6.25 mg Tabs Commonly known as: COREG Take 1 tablet (6.25 mg) by mouth twice daily. chlorthaLIDONE 25 mg Tabs Commonly known as: HYGROTON Take 1 tablet (25 mg) by mouth daily. divalproex sodium 125 mg Csdr Commonly known as: DEPAKOTE SPRINKLES Take 2 capsules (250 mg) by mouth twice daily. losartan 25 mg Tabs Commonly known as: COZAAR Take 1 tablet (25 mg) by mouth twice daily. melatonin 3 mg tablet Take 1 tablet (3 mg) by mouth at bedtime. metFORMIN 500 mg Tabs Commonly known as: GLUCOPHAGE Take 1 tablet (500 mg) by mouth twice daily. potassium chloride 20 meq tablet Commonly known as: K-DUR Take 2 tablets (40 mEq) by mouth daily. rosuvastatin 20 mg tablet Commonly known as: CRESTOR Take 1 tablet (20 mg) by mouth daily. sennosides-docusate sodium 8.6-50 mg tablet Commonly known as: STOOL SOFTENER/LAXATIVE Take 1 tablet by mouth twice daily as needed for Constipation. venlafaxine 75 mg Capsule 24 h Commonly known as: EFFEXOR XR Take 3 capsules (225 mg) by mouth daily. EGLASS GUN HAND * Tamiko Westbrook LGSW - 11/15/2023 8:32 AM CSTAssociated Order(s): CONSULT TO SPECIALIST EMPLOYEE LABOR RELATIONS Interior Design Faculty Member Note Acknowledged consult place for support with POA document. I attempted to reach Zain and left a vm with contact information and role. Will continue to follow and support as able. 11/15 RAFFI followed up with Zain re POA and HCD. Zain expressed concerns re what providers have informed her of current mental status and chart documents A&O self. Explained that in these situations, we meet with patients over a course of three days to ask about surrogacy and if they list the same person over those three days. Zain shared that Lucinda has confused family members. Zain also inq uired resources for adult children caring for elderly parents. Will send to e- mail: [email or web address] (I sent supporting resources as requested) EGLASS GUN HAND * Isabel Day - 11/14/2023 2:18 PM CSTAssociated Order(s): CONSULT TO MUSIC THERAPY MUSIC THERAPY VISIT SUMMARY Lucinda Kennedy : 1940 Sex: female LOS: 10 days Provider: NASIM Villa Date of Session: 11/14/23 Time of Session: 1:25 - 1:40 p.m. Reason for Visit: Referral and Assessment Summary of Visit: Patient was sitting in a recliner in her hospital room eating her lunch and watching Friends on the television. There was no one else in the room. Nutrition Services Manager greeted Patient, introduced herself, and offered music. Patient was pleasantly confused and asked Nutrition Services Manager to sit down. Nutrition Services Manager sat down and got out her guitar. Patient chatted with Nutrition Services Manager. Nutrition Services Manager played a song for Patient on guitar and sang. During the music, Patient looked at the television. After the song, Patient talked about the circumstances leading to her hospitalization and about a possibly surgery. Patient told Nutrition Services Manager she is waiting for her to return after checking on their house in [place]. Nutrition Services Manager played a second song, After the music, Patient commented that the music was very beautiful. Nutrition Services Manager ended the session and Patient thanked Nutrition Services Manager. Goals Addressed: Psychosocial Support and Mood Enhancement Plan: Nutrition Services Manager will continue to offer music therapy to Patient when possible. Isabel Day, 11/14/2023 2:18 PM [employer] [employer] [facility] * Kasey Ennis, PT - 11/06/2023 9:02 AM CST PHYSICAL THERAPY GAIT EVALUATION Lucinda Kennedy was seen 11/06/2023 for a Physical Therapy Gait Evaluation. PT Discharge Recommendations Discharge Recommendations: Post-acute placement recommended. Level/type of placement (PT): Acute Rehab if meets admission criteria Barriers to placement (PT): No known barriers to placement Barriers to discharge to home/community: Insufficient activity tolerance;Home setting not accessible (stairs/architectural barriers);High falls risk If discharging to home, would need: Physical assistance when mobilizing Post discharge follow-up: Equipment Status: Equipment needs being determined PT Equipment Recommended: Front wheeled walker PM&R Recommended: Yes, for assessment of post-acute placement needs. Pt appears to be a candidate for higher intensity rehab services DIAGNOSIS Patient Active Problem List Diagnosis Fall, initial encounter PT Treatment Diagnosis: Difficulty in Walking R 26.2 Impaired Mobility Z 74.09 Activity Intolerance Z 73.89 Unsteadiness on Feet R 26.81 History of Falling Z 91.81 PRECAUTIONS Falls Lift Truck Operator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 insulin ASPART (NovoLOG) FlexPen DISCONTD: insulin ASPART (NovoLOG) FlexPen levETIRAcetam in NaCl (KEPPRA) 1000 mg/100 mL IVPB 1,000 mg DISCONTD: clevidipine (CLEVIPREX) 50 mg in 100 mL emulsion HYDROmorphone PF (DILAUDID) 1 mg/mL injection 0.3-0.5 mg levETIRAcetam in NaCl (KEPPRA) 1000 mg/100 mL IVPB 2,000 mg potassium chloride IVPB 10 mEq iohexol (OMNIPAQUE) 350 mg/mL injection magnesium sulfate 2 g IVPB potassium chloride IVPB 10 mEq acetaminophen (OFIRMEV) 10 mg/mL IV 1,000 mg MRSA Surveillance Screen - Post Admission hospital day 3 MRSA Surveillance Screen - Weekly monitoring URINALYSIS,TOTAL PT Evaluation and Treatment OT Evaluation and Treatment DYSPHAGIA EVAL & TREAT Lung Airway Clearance Expansion Protocol (LACE) Oximetry - Continuous (ICU) Oxygen Consult to Color Buffer CONSULT TO PALLIATIVE CARE Straight Cath Protocol Weight Immunization Protocol Remove Urinary Catheter on: Now Workup: EKGs (resulted/pending): Sinus Tachycardia Labs (resulted/pending): Labs Reviewed BLOOD GASES - Abnormal Result Value PH Jalen 7.39 PCO2 Jalen 45 PO2 Jalen 41 (*) Bicarb Jalen 27 O2 Sat Jalen 69 Base Exc Jalen 1.4 CBC WITH PLTS/AUTO DIFF - Abnormal WBC 9.42 RBC 3.86 (*) Hgb 9.8 (*) Hematocrit 31.8 (*) MCV 82.4 MCH 25.4 MCHC 30.8 (*) RDW 15.3 (*) Plt 292 MPV 11.1 Automated Abs Neutrophil 5.80 Abs Immature Granulocyte 0.07 Abs Neutrophil 5.80 Abs Lymphocyte 2.33 Abs Monocyte 0.88 Abs Eosinophil 0.27 Abs Basophil 0.07 ED CHEMISTRY LABS(NA,K,CL,CO2,GLU,CREAT,CA-IONIZED,ANION GAP) - Abnormal Sodium 144 Chloride 106 AnGap 11 Glucose 234 (*) ICA, Actual 4.52 ICA, pH Corrected 4.51 Creatinine 0.81 BICARB 27 (*) eGFR (2020 CKD-EPI) 73 Potassium 2.8 (*) Narrative: Critical value for Potassium called to and read back by Rafa Hutchins RN in EDSTAB 2 at 11/04/2023 22:55:31 [facility] by Eleni Spring MLS. ED HEMOGLOBIN TOTAL (ED ONLY) - Abnormal Hgb 10.3 (*) LACTATE (LACTIC ACID) - Abnormal Lactate 2.7 (*) Narrative: Send specimen on ice! PTT (APTT) - Abnormal APTT 22.9 (*) ANTI XA HEPARIN UNFRACTIONATED - Abnormal Anti XA Hep U <0.04 (*) URINALYSIS,TOTAL - Abnormal Color COLORLESS Appearance CLEAR Urine Glucose 100 (*) Bili UA NEGATIVE Ketones NEGATIVE Specific [place] 1.036 (*) Blood Ur NEGATIVE PH Urine 7.5 (*) Protein Ur TRACE Urobilinogen NORMAL Nitrite Ur NEGATIVE Leuk Est NEGATIVE WBC Ur 0-5 RBC Ur 0-3 SQ EPITH 0-5 Urinalysis Performed at: [facility] FIBRINOGEN Fibrinogen 288 PRECAUTIONARY TUBE Prec Tube Precautionary Blood Bank Specimen Received. ED INR ED INR 1.0 HS TROPONIN HS Troponin I 10 Narrative: First Occurrence of the Troponin order is to be drawn Stat by Nursing staff on the unit. EXTRA TUBE - LIGHT GREEN LIGHT GREEN TUBE Stored EXTRA TUBE - SST SST TUBE Stored TROP 4H TROP 6H Imaging (resulted/pending): ED US CRITICAL CARE See Chart Review for Final Result XR CHEST 1 VIEW AP OR PA* (Results Pending) CT HEAD NO IV CONTRAST (Results Pending) CT SPINE CERVICAL NO IV CON (Results Pending) CT CHEST/ABD/PELVIS W/IV CONT (Results Pending) CT SPINE THORACIC NO IV CON (Results Pending) CT SPINE LUMBAR NO IV CON (Results Pending) CT HEAD-NECK - ANGIO - W/IV CON (Results Pending) Transfer of Care Plan: Plan for admission due to subarachnoid and subdural hemorrhages. Care: No change in patient condition while awaiting admission bed. Care transferred to admitting team. Patient assessment and treatment discussed with faculty physician. Impression: Fall Subdural hemorrhage Subarachnoid hemorrhage Vanna Parekh PA-C, 11/05/2023 3:11 AM [facility] * Kathy Worthington RN - 11/05/2023 12:09 AM CST Bed: A08 Expected date: Expected time: Means of arrival: Comments: Stab 2 [facility]GL[facility] G[facility] HAND * Ana Ordaz RN - 11/04/2023 10:51 PM CST ED-mailing jogger-Note: --Pertinent Information: Pt arrives to ED after fall down flight of stairs. --Pt's , daughter and son in law were on scene and are all coming to [facility]. --Family contact: Daughter Zain #[phone] / Son in Law # [phone] Ana Ordaz RN [facility] * Rafa Hutchins RN - 11/04/2023 10:40 PM CST BIBA from home after called when he heard her fall downstairs. Upon EMS arrival, patient was altered and lethargic. reports to EMS that patient is on blood thinners. 18g PIV left AC, 20g PIV right forearm. BG 272. Patient arrives to STAB Room awake, disoriented to time and situation. [facility]GL[facility] G[employer] HAND documented in this encounter Miscellaneous Notes * Discharge non-MD/non-AVERY Summaries - Kasey Ennis, PT - 11/16/2023 9:19 AM CST Physical Therapy Inpatient Discharge Summary Lucinda Kennedy [id number] Diagnosis Patient Active Problem List Diagnosis Fall, initial encounter Precautions: Pain at final sessions: Pain Rating With Activity (Numeric): 0 (reports she has no pain) (11/14/23 1000) Transfer & Bed Mobility Supine to/from Sit: Stand by assist (11/14/23 1000) Sit to/from Stand: Minimal assist (Phyllis without AD, SBA with 2ww) (11/14/23 1000) Sit to/from Stand - Method: From standard seat height;w/ Assistive device;w/o Assistive device (2ww) (11/14/23 1000) Bed to/from Chair: Minimal assist (11/14/23 1000) Bed to/from Chair - Method: From standard seat height;Standing pivot w/o AD;Standing pivot w/ AD (2ww) (11/14/23 1000) Scooting: Moderate assist (11/08/23 1430) Gait Distance (m): 70 m (70m x 3 1xw 2ww, 2x no ad) (11/14/23 1000) Device: Front wheeled walker;None (11/14/23 1000) Assistance: Minimal assist (11/14/23 1000) Gait Quality (General): Shuffling;Unsteady (11/14/23 1000) Stairs Number of Steps: 5 (11/12/23 1030) Stair Rails: Right rail (11/12/23 1030) Stairs : Minimal assist (11/12/23 1030) Stairs Method: Ascend step-to pattern;Descend reciprocal pattern (max verbal cues for sequencing) (11/12/23 1030) Equipment Status: Equipment needs being determined (11/14/23 1000) Front wheeled walker (11/14/23 1000) Status of progress toward established goals:from previous notes, pt is improving in mobility but not safe to dc home with yet. Pt to dc to rehab. Problem: Decreased Transfer Skills Goal: Patient will transfer bed to/from chair Description: Patient will transfer bed to/from chair with (6) Modified Parker with sliding board or pivot method. By 11-17-2023 Outcome: In progress Goal: Patient will transfer sit to/from stand Description: Patient will transfer sit to/from stand with (6) Modified Parker By 11-17-2023. Outcome: In progress Problem: Decreased Ambulatory Skills Goal: Improve gait Description: Ambulate 100 meters using Front - wheeled walker with (6) Modified Parker By 11-17-2023. Outcome: In progress Goal: Improve gait on stairs Description: Ascend/descend 7 +7 stairs using Cane with (6) Modified Parker .By 11-17-2023 Outcome: In progress Problem: Decreased Functional Motor Skills - PT Goal: Patient demonstrates improved balance Description: Pt to score at least 45/56 Mitchell Balance to indicate decreased risk for falls By 11-17-2023 Outcome: In progress Plan: Discharge to Rehab Facility Physical Therapist: Kasey Ennis, PT Date: 11/17/2023 Pager: [employer] PT Department [facility] * Discharge non-MD/non-AVERY Summaries - Bill Olivera - 11/16/2023 7:46 AM [facility] Summary: DC to TCU Care Coordination Discharge Note Expected DC Date: 11/16/2023 Expected DC Time: 9 AM Final Discharge Destination: Destination Coordination complete. Service Provider Selected Services Address Phone Fax Theresa Yusuf, A [facility] [address] [place] [address] [phone] Summary: Patient has been accepted to continue rehabing at the aforementioned post acute facility. Family onboard with plan. WC ride has been ordered for Fri at 9 am Medical team is aware. They will work writing DC orders. CC faxed DC orders to TCU via [employer]. Medical team is aware any controlled substances must be printed and signed to be sent in physical form to the TCU. Also, PSC/TICKET SCHEDULER will fax it to TCU temi. Bedside nurse please confirm this is done. A [employer] thread has been started. CC will continue to follow until DC. Please use [employer] for any further questions. EGLASS GUN HAND * Nursing Assessment - Karolyn Jacob RN - 11/16/2023 2:48 AM CST Nursing Assessment Head to Toe Head to Toe Assessment Shift Summary Pt is A&O only to self. Pt is fall risk, on a bed alarm and chair alarm. Pt is confused and would set the alarm off. Pt was re-oriented to place and situation. is at bedside. Pt is set rajendra discharged today at 900. Karoyln Jacob RN, 11/16/2023 2:59 AM Neurologic/Cognitive Assessment Within Defined Limits except for: Cognition: poor judgement/safety awareness and poor attention/concentration Orientation: disoriented to place, disoriented to time and disoriented to situation HEENT Within Defined Limits Cardiac Within Defined Limits Respiratory Assessment Within Defined Limits except for: Neurovascular Within Defined Limits Gastrointestinal Gastrointestinal Stool (unmeasured): 1 (11/14/23 1500) Stool Amount: moderate (11/14/23 1500) Stool Color: brown (11/14/23 1500) Stool Consistency: soft (11/14/23 1500) Genitourinary Within Defined Limits Musculoskeletal Within Defined Limits Integumentary Within Defined Limits Patient Lines/Drains/Airways Status Active LDAs None Psychosocial Assessment Within Defined Limits except for: Psychosocial Assessment: Observed Patient Behaviors: Irritable Family Behavior: at bedside and sitting quietly at bedside EGLASS GUN HAND * Nursing Assessment - Lila Gaines, RN - 11/15/2023 7:42 PM CST Nursing Assessment Head to Toe Head to Toe Assessment Shift Summary A&O to self and impulsive. Denies pain. Fall risk. Bed alarm on and tab alarm on chair. DC at 0900 (11/16). Lila Gaines, RN, 11/15/2023 7:47 PM Neurologic/Cognitive Assessment Within Defined Limits except for: Orientation: disoriented to place and disoriented to situation HEENT Within Defined Limits Cardiac Within Defined Limits Respiratory Within defined limits Neurovascular Within Defined Limits Gastrointestinal Within Defined Limits Stool (unmeasured): 1 (11/14/23 1500) Stool Amount: moderate (11/14/23 1500) Stool Color: brown (11/14/23 1500) Stool Consistency: soft (11/14/23 1500) Genitourinary Within Defined Limits Musculoskeletal Assessment Within Defined Limits except for: Musculoskeletal Assessment: General Mobility: Generalized weakness Integumentary Assessment Within Defined Limits except for: Patient Lines/Drains/Airways Status Active LDAs None Psychosocial Assessment Within Defined Limits except for: EGLASS GUN HAND * Discharge non-MD/non-AVERY Summaries - Nayeli Alvarado, [facility] - 11/15/2023 4:35 PM CST SPEECH-LANGUAGE PATHOLOGY Discharge Summary 11/15/2023 [employer] [employer] Recommendations Discharge Recommendations ([employer]ORTER [employer] BAGGER): Post-acute placement recommended. Acute Rehab if meets admission criteria No known barriers to placement Barriers to Discharge ([employer]TER [employer]AGGER): NA - Post acute placement is recommended and no barriers to placement known. Post Discharge follow-up ([employer] [employer]AGGER): [facility] [employer] [facility] at post-acute placement Recommend PM&R Consult ([employer]GER): Yes, for assessment of post-acute placement needs. Pt appears to be a candidate for higher intensity rehab services. Diet Recommendation: Current Diet : Regular Current Liquid: Thin liquids Medication Administration: Medications with thin liquid Aspiration Precautions: Upright with all eating and drinking Oral Hygiene: [place] teeth 2x/day Positioning Techniques: Seat fully upright and midline when eating Supervision Needed: Independent Instrumental Assessment Needed: No Additional Referrals Needed: None Name: Lucinda Kennedy Gender Identity: female (pronouns: she, her, her) : 1940 Admit Date: 11/04/2023 Medical Diagnosis: SDH (subdural hematoma) () [S06.5XAA] Fall, initial encounter [W19.XXXA] Treatment Diagnosis: Cognitive communication deficit R41.841 SUBJECTIVE Barriers to Learning: Cognitive linguistic deficit Observations: Alert;Cooperative Pain: 6/10 (headache) Respiratory Status: Oxygen Precautions: Aspiration;Fall CLINICAL IMPRESSIONS Speech: Patient is 100% intelligible at conversational level. Expressive/Receptive Language: Expressive/receptive language is intact. Patient able to communicatebasic wants/needs without difficulty. No word finding difficulty or other aphasia like characteristics are present. Cognition: Patient presents with severe cognitive-linguistic deficits in areas of attention, working, short-term, and long-term memory, problem solving, reasoning, processing speed, and executive functioning secondary to SDH of the R>L tentorial leaflets and R cerebral convexity, scattered SAH, L periventricular hemorrhage, and a small L frontal IPH. Ongoing tx is warranted. Swallow Function: Functional oropharyngeal swallow. Safe for regular diet and thin liquids. Would benefit from tray set up given possible L hemianopsia. EDUCATION Audience: Patient Education: results of assessment;[employer] scope of practice;[employer] [employer] plan of care;recommendation for additional therapy Prognosis is good for increasing independence with iADLs. Speech-Language Pathologist: Nayeli Alvarado, [facility], 11/15/2023 4:35 PM Pager: [employer] [facility]GLASS [facility]UN HAND * Discharge non-MD/non-AVERY Summaries - Sharri Price, OTR/L - 11/15/2023 2:12 PM CST [facility] Occupational Therapy Discharge Summary Lucinda Kennedy 11/15/2023 OT Discharge Recommendations Discharge Recommendations: Post-acute placement recommended Level/type of placement (OT): Acute Rehab if meets admission criteria Barriers to placement (OT): No known barriers to placement Barriers to discharge to home/community: NA - Post acute placement is recommended and no barriers to placement known. Post Discharge Follow-up: OT at post-acute placement Equipment Recommended: Equipment needs to be determined at next level of care Plan: DC Inpatient OT as patient is being discharged to subacute rehab. Patient Name: Lucinda Kennedy MR#: [id number] Date of : 1940 Age: 83 y.o. Hospital Admit date: 11/04/2023 Restrictions / Precautions at Discharge: Activity Level: Up with Assist (11/05/23 1300) General Precautions: Falls Risk (aspiration) (11/05/23 1300) Complies w/ Precautions?: Yes (11/14/23 1000) Current Medical History / Hospital Course: See MD VALIENTE summary for details. Patient Active Problem List Diagnosis Fall, initial encounter Past Medical History: No past medical history on file. Living Situation/Social History: Information obtained From: patient (11/05/23 1400) Help Available at home: yes, 24 hour assist ( runds errands but for the most part is home) (11/05/23 1400) Patient is living in a/an : house - two story (plus basement) (11/05/23 1400) Bathroom set up: tub/shower combination (11/05/23 1400) Mobility equipment currently available/used: none (11/05/23 1400) ADL Equipment currently available/used: none (11/05/23 1400) Prior Level of Function (DIRECTOR OF PSYCHOLOGY): ADLs/IADLs: No assistance required (Independent or modified independent) (11/05/23 1400) Functional Mobility: Independent without assistive device (11/05/23 1400) Functional Status at Discharge: Activities of Daily Living Eating: Supervision/Stand by assist (11/05/23 1400) Grooming: Minimal assist (75% patient effort) (11/14/23 1000) Grooming Comments: standing EOS. Max cues with assist for sequencing and completion of tasks including washing hands with use of soap (11/14/23 1000) Upper Body Dressing: Minimal assist (75% patient effort) (11/05/23 1400) Lower Body Dressing: Minimal assist (75% patient effort) (11/14/23 1000) Lower Body Dressing Comments: donning shorts while seated EOB (11/14/23 1000) Lower Body Dressing Techniques & Equipment: Patient Ed (11/13/23 1605) Functional Mobility Supine to/from Sit: Supervision/Stand by assist (11/14/23 1000) Sit to/from Stand : Minimal assist (75% patient effort) (11/14/23 1000) Sit to/from Stand - Method: From standard seat height;w/ Assistive device (11/14/23 1000) Bed to/from Chair: Minimal assist (75% patient effort) (11/14/23 1000) Bed to/from Chair - Method: Standing pivot w/ AD (11/14/23 1000) Bed to Bathroom: Minimal assist (75% patient effort) (11/14/23 1000) Bed to Bathroom- Method: Front wheeled walker (11/14/23 1000) Functional Mobility in Room: Minimal assist (75% patient effort) (11/14/23 1000) Functional Mobility in Room- Method: Front wheeled walker (11/14/23 1000) Cognition Mental Status: Alert;Cooperative;Follows 1 step direction;Follows 2 step directions;Oriented x 2 (11/14/23 1000) Delirium Assessment: Delirium Assessment - CAM Short (Confusion Assessment Method) Acute onset OR fluctuating course: No (11/14/23 1000) Inattention: Yes (11/14/23 1000) Disorganized Thinking: No (11/14/23 1000) Altered level of consciousness: No (11/14/23 1000) CAM result: Negative (11/14/23 1000) Patient / Caregiver Training: See Care Plan for progress towards goals. Occupational Therapist: [facility] OT Department [facility]GLASS G[facility] HAND * Nursing Assessment - Dariana Alvarado RN - 11/15/2023 4:49 AM CST Nursing Assessment Head to Toe Head to Toe Assessment Shift Summary Shift 8038-1996: Pt is alert and oriented to self only. Vitals WNL. Pt on RA. Denies any pain. Doesnot use call light to make needs known. Up 3-5 times before able to get HS dose of zyprexa around 0345. Pt up at 0445 wanting coffee. Sitting in recliner with chair alarm on. Wanting to go to the kitchen. Did use the restroom 3 times to void. Does not utilize walker correctly-picks up walker and carries it. Dariana Alvarado RN, 11/15/2023 4:49 AM Neurologic/Cognitive Assessment Within Defined Limits except for: Cognition: poor judgement/safety awareness Orientation: disoriented to time, disoriented to situation and disoriented to place HEENT Within Defined Limits Cardiac Within Defined Limits Respiratory Within defined limits Neurovascular Within Defined Limits Gastrointestinal Within Defined Limits Stool (unmeasured): 1 (11/14/23 1500) Stool Amount: moderate (11/14/23 1500) Stool Color: brown (11/14/23 1500) Stool Consistency: soft (11/14/23 1500) Genitourinary Within Defined Limits Musculoskeletal Assessment Within Defined Limits except for: Musculoskeletal Assessment: General Mobility: Generalized weakness Comments: Assist of 1 with a walker and a gait belt. Integumentary Within Defined Limits Patient Lines/Drains/Airways Status Active LDAs Name Placement date Placement time Site Days Peripheral IV 11/06/23 22 gauge;1 3/4 in length Anterior;Left Forearm 11/06/23 1640 -- 8 Psychosocial Assessment Within Defined Limits except for: Psychosocial Assessment: Observed Patient Behaviors: Restless EGLASS GUN HAND * Nursing Assessment - Tone Rosario RN - 11/14/2023 10:16 PM CST Nursing Assessment Head to Toe Head to Toe Assessment Shift Summary Patient is alert and oriented to person. She is disoriented to time, place, and situation. She is unable to use her call light appropriately. Frequently impulsive with many attempts to get up from the chair or out of bed without assistance. Alarms in place. Chair alarm activated more than 15 times last 4 hours. Often redirectable. Vital signs are stable on room air. Takes pills whole with apple sauce. Continent of bowel and bladder. She is an assist of 1 with a walker and a gait belt. Tone Rosario RN, 11/14/2023 10:16 PM Neurologic/Cognitive Assessment Within Defined Limits except for: Cognition: poor judgement/safety awareness Orientation: disoriented to time, disoriented to situation and disoriented to place HEENT Within Defined Limits Cardiac Within Defined Limits Respiratory Within defined limits Neurovascular Within Defined Limits Gastrointestinal Within Defined Limits Stool (unmeasured): 1 (11/14/23 1500) Stool Amount: moderate (11/14/23 1500) Stool Color: brown (11/14/23 1500) Stool Consistency: soft (11/14/23 1500) Genitourinary Within Defined Limits Musculoskeletal Assessment Within Defined Limits except for: Musculoskeletal Assessment: General Mobility: Generalized weakness Comments: Assist of 1 with a walker and a gait belt. Integumentary Within Defined Limits Patient Lines/Drains/Airways Status Active LDAs Name Placement date Placement time Site Days Peripheral IV 11/06/23 22 gauge;1 3/4 in length Anterior;Left Forearm 11/06/23 1640 -- 8 Psychosocial Assessment Within Defined Limits except for: Psychosocial Assessment: Observed Patient Behaviors: Restless [employer] [facility] HAND * Nursing Assessment - Adelso Huber RN - 11/14/2023 4:30 PM [facility] [facility] Nursing Assessment Head to Toe Head to Toe Assessment Shift Summary Alert and orientated to person. Disorientated to time, place and situation. Impulsive. Does not used call light. Bed alarm and chair alarm in used. Chair alarm activated more than 2 times today. Patient is assist of one with ambulation. VSS this shift Continent to BB. Took all medications with apple sauce and thin liquid. No Skin issues. Continue to follow care plan .Adelso Huber RN, 11/14/2023 4:31 PM Adelso Huber RN, 11/14/2023 4:30 PM Neurologic/Cognitive Assessment Within Defined Limits except for: Cognition: poor judgement/safety awareness Orientation: disoriented to time and disoriented to situation HEENT Within Defined Limits Cardiac Within Defined Limits Respiratory Within defined limits Neurovascular Within Defined Limits Gastrointestinal Within Defined Limits Stool (unmeasured): 1 (11/14/23 1500) Stool Amount: moderate (11/14/23 1500) Stool Color: brown (11/14/23 1500) Stool Consistency: soft (11/14/23 1500) Genitourinary Within Defined Limits Musculoskeletal Assessment Within Defined Limits except for: Musculoskeletal Assessment: General Mobility: Generalized weakness Integumentary Within Defined Limits Patient Lines/Drains/Airways Status Active LDAs Name Placement date Placement time Site Days Peripheral IV 11/06/23 22 gauge;1 3/4 in length Anterior;Left Forearm 11/06/23 1640 -- 7 Psychosocial Within Defined Limits Psychosocial Assessment: Family Behavior: at bedside and attentive to patient [facility] HAND * Nursing Assessment - Adelso Huber RN - 11/14/2023 10:17 AM [employer] Nursing Assessment Head to Toe Head to Toe Assessment Shift Summary Alert and orientated to person. Disorientated to time, place and situation. Impulsive. Does not used call light. Bed alarm and chair alarm in used. Chair alarm activated more than 10 times today. Patient is assist of one with ambulation. VSS BP elevate in the morning but stable at noon after BM medications. Ate 75% of meals. Continent to BB. Had a moderate BM today after suppository. Took all medications with apple sauce and thin liquid. No Skin issues. Continue to follow care plan Adelso Huber RN, 11/14/2023 3:24 PM Adelso Huber RN, 11/14/2023 10:17 AM Neurologic/Cognitive Assessment Within Defined Limits except for: Cognition: poor judgement/safety awareness Orientation: disoriented to time and disoriented to situation HEENT Within Defined Limits Cardiac Within Defined Limits Respiratory Within defined limits Neurovascular Within Defined Limits Gastrointestinal Within Defined Limits Stool (unmeasured): 1 (11/08/23729) Stool Amount: moderate (11/08/23729) Stool Color: brown (11/08/23729) Stool Consistency: liquid;loose (11/08/23729) Genitourinary Within Defined Limits Musculoskeletal Assessment Within Defined Limits except for: Musculoskeletal Assessment: General Mobility: Generalized weakness Integumentary Within Defined Limits Patient Lines/Drains/Airways Status Active LDAs Name Placement date Placement time Site Days Peripheral IV 11/06/23 22 gauge;1 3/4 in length Anterior;Left Forearm 11/06/23 1640 -- 7 Psychosocial Within Defined Limits Psychosocial Assessment: Family Behavior: at bedside and attentive to patient [employer] * Nursing Assessment - Luisa Pablo, RN - 11/14/2023 2:01 AM CST Nursing Assessment Head to Toe Head to Toe Assessment Shift Summary Shift Summary Pt A&Ox2. Pleasantly confused. VSS on RA. BP elevated. Denies pain/discomfort. Assist x1 with ambulation. Continent of B&B. Bed alarm for safety/fall risk. Pt does not use call light appropriately. at bedside & attentive to pt. BP 150/47 (Cuff Location: Right Arm) Pulse 82 Temp 36.5 ??C (97.7 ??F) (Axillary) Resp 18 Ht 1.473 m (4' 10) Wt 69.7 kg (153 lb 10.6 oz) SpO2 94% BMI 32.12 kg/m?? Luisa Pablo, RN, 11/14/2023 2:05 AM Neurologic/Cognitive Assessment Within Defined Limits except for: Cognition: poor judgement/safety awareness Orientation: disoriented to time and disoriented to situation HEENT Within Defined Limits Cardiac Within Defined Limits Respiratory Within defined limits Neurovascular Within Defined Limits Gastrointestinal Within Defined Limits Stool (unmeasured): 1 (11/08/23729) Stool Amount: moderate (11/08/23729) Stool Color: brown (11/08/23729) Stool Consistency: liquid;loose (11/08/23729) Genitourinary Within Defined Limits Musculoskeletal Assessment Within Defined Limits except for: Musculoskeletal Assessment: General Mobility: Generalized weakness Integumentary Within Defined Limits Patient Lines/Drains/Airways Status Active LDAs Name Placement date Placement time Site Days Peripheral IV 11/06/23 22 gauge;1 3/4 in length Anterior;Left Forearm 11/06/23 1640 -- 7 Psychosocial Within Defined Limits Psychosocial Assessment: Family Behavior: at bedside and attentive to patient [employer] * Nursing Assessment - Sanjuana Reyes, RN - 11/13/2023 10:54 PM CST Nursing Assessment Head to Toe Head to Toe Assessment Shift Summary Shift Summary Patient pleasantly confused. Denies pain. Up with stand by assist. at bedside. Helpful withcares. Pt with a good appetite. VSS, on RA. Filed Vitals: 11/13/23 1605 11/13/23 1908 BP: 120/46 148/61 Pulse: 62 68 Resp: 18 18 Temp: 36.1 ??C (96.9 ??F) 36 ??C (96.8 ??F) Continue to follow per plan of care. Sanjuana Reyes, RN, 11/13/2023 10:57 PM Neurologic/Cognitive Assessment Within Defined Limits except for: Cognition: poor judgement/safety awareness Orientation: disoriented to time and disoriented to situation HEENT Within Defined Limits Cardiac Within Defined Limits Respiratory Within defined limits Neurovascular Within Defined Limits Gastrointestinal Within Defined Limits Stool (unmeasured): 1 (11/08/23729) Stool Amount: moderate (11/08/2330) Stool Color: brown (11/08/23729) Stool Consistency: liquid;loose (11/08/23729) Genitourinary Within Defined Limits Musculoskeletal Assessment Within Defined Limits except for: Musculoskeletal Assessment: General Mobility: Generalized weakness Integumentary Within Defined Limits Patient Lines/Drains/Airways Status Active LDAs Name Placement date Placement time Site Days Peripheral IV 11/06/23 22 gauge;1 3/4 in length Anterior;Left Forearm 11/06/23 1640 -- 7 Psychosocial Within Defined Limits Psychosocial Assessment: Family Behavior: at bedside, attentive to patient, interacting with patient and participating in care Comments: Spouse [employer] * Nursing Assessment - Nikole Diego RN - 11/13/2023 10:32 AM CST Nursing Assessment Head to Toe Shift Summary Pt A&O to self and is confused and re-oriented often. Pt BP elevated am meds given and will recheck. Pt up to bathroom with x1 assist and walker. Pt's at bedside. Pt has bed alarm for safety. Potassium 3.0 providers aware and will replace will continue the POC. Nikole Diego RN, 11/13/2023 10:32 AM Neurologic/Cognitive Assessment Within Defined Limits except for: Cognition: poor judgement/safety awareness Orientation: disoriented to time, disoriented to situation and disoriented to place Speech: Illogical Comments: Pleasantly confused illogical at times HEENT Within Defined Limits Cardiac Within Defined Limits Respiratory Within defined limits Neurovascular Within Defined Limits Gastrointestinal Within Defined Limits Genitourinary Assessment Within Defined Limits except for: Voiding: Voiding without difficulty Comments: in room and helps her to the bathroom Musculoskeletal Assessment Within Defined Limits except for: Musculoskeletal Assessment: General Mobility: Generalized weakness Comments: Admitted for fall. 1 x assist to bathroom w/ walker and gait belt Integumentary Within Defined Limits Patient Lines/Drains/Airways Status Active LDAs Name Placement date Placement time Site Days Peripheral IV 11/06/23 22 gauge;1 3/4 in length Anterior;Left Forearm 11/06/23 1640 -- 6 Psychosocial Assessment Within Defined Limits except for: Psychosocial Assessment: Observed Patient Behaviors: Pleasant Family Behavior: at bedside and attentive to patient [employer] * Nursing Assessment - Lila Reed RN - 11/13/2023 12:46 AM CST Nursing Assessment Head to Toe Head to Toe Assessment Shift Summary Shift Summary Neurologic/Cognitive Assessment Within Defined Limits except for: Cognition: poor judgement/safety awareness Orientation: disoriented to time and disoriented to situation HEENT Within Defined Limits Cardiac Within Defined Limits Respiratory Within defined limits Neurovascular Within Defined Limits Gastrointestinal Within Defined Limits Stool (unmeasured): 1 (11/08/23729) Stool Amount: moderate (11/08/23729) Stool Color: brown (11/08/23729) Stool Consistency: liquid;loose (11/08/23729) Genitourinary Within Defined Limits Musculoskeletal Assessment Within Defined Limits except for: Musculoskeletal Assessment: General Mobility: Generalized weakness Integumentary Within Defined Limits Patient Lines/Drains/Airways Status Active LDAs Name Placement date Placement time Site Days Peripheral IV 11/06/23 22 gauge;1 3/4 in length Anterior;Left Forearm 11/06/23 1640 -- 6 Psychosocial Within Defined Limits Comments: present [employer] * Nursing Assessment - Bianca Bell RN - 11/12/2023 2:17 PM [employer] Nursing Assessment Head to Toe Head to Toe Assessment Shift Summary Pt alert and oriented x2. Denies pain. VSS. No acute changes or new concerns. Continue POC Neurologic/Cognitive Assessment Within Defined Limits except for: Cognition: poor attention/concentration Level of Consciousness: Confused Orientation: disoriented to time and disoriented to situation HEENT Within Defined Limits Cardiac Within Defined Limits Respiratory Within defined limits Comments: On room air Neurovascular Within Defined Limits Gastrointestinal Within Defined Limits Stool (unmeasured): 1 (11/08/23729) Stool Amount: moderate (11/08/23729) Stool Color: brown (11/08/23729) Stool Consistency: liquid;loose (11/08/23729) Genitourinary Within Defined Limits Musculoskeletal Assessment Within Defined Limits except for: Musculoskeletal Assessment: General Mobility: Generalized weakness Integumentary Within Defined Limits Patient Lines/Drains/Airways Status Active LDAs Name Placement date Placement time Site Days Peripheral IV 11/06/23 22 gauge;1 3/4 in length Anterior;Left Forearm 11/06/23 1640 -- 5 Psychosocial Psychosocial Assessment: Verbalized Emotional State: Acceptance Family Behavior: not present [employer] * Nursing Assessment - Teresita Vidales RN - 11/12/2023 1:34 AM CST Nursing Assessment Head to Toe Head to Toe Assessment Shift Summary Patient confused, a/o to self only. Kept saying she wants to go home, reoriented/redirected multiples times. Doesn't use call light, bed alarm on for safety. Continent with BB pattern. Transfers withassist of 1 with walker and GB. Took all her pills, big pills one at a time. No BM this shift, voiding without any issue. Slept intermittently. Hourly rounding ongoing. Care in progress with current care plan. Teresita Vidales RN, 11/12/2023 5:27 AM Neurologic/Cognitive Assessment Within Defined Limits except for: Cognition: poor judgement/safety awareness Level of Consciousness: Confused Orientation: disoriented to place, disoriented to time and disoriented to situation HEENT Within Defined Limits Cardiac Within Defined Limits Respiratory Within defined limits Comments: On room air Neurovascular Within Defined Limits Gastrointestinal Within Defined Limits Stool (unmeasured): 1 (11/08/23729) Stool Amount: moderate (11/08/23729) Stool Color: brown (11/08/23729) Stool Consistency: liquid;loose (11/08/23729) Genitourinary Within Defined Limits Musculoskeletal Musculoskeletal Assessment: General Mobility: Generalized weakness Integumentary Within Defined Limits Patient Lines/Drains/Airways Status Active LDAs Name Placement date Placement time Site Days Peripheral IV 11/06/23 22 gauge;1 3/4 in length Anterior;Left Forearm 11/06/23 1640 -- 5 Psychosocial Within Defined Limits [employer] * Nursing Assessment - Teresita Vidales RN - 11/11/2023 9:13 PM CST Nursing Assessment Head to Toe Head to Toe Assessment Shift Summary Shift Summary Neurologic/Cognitive Assessment Within Defined Limits except for: Cognition: poor judgement/safety awareness Level of Consciousness: Confused Orientation: disoriented to place, disoriented to time and disoriented to situation HEENT Within Defined Limits Cardiac Within Defined Limits Respiratory Within defined limits Comments: On room air Neurovascular Within Defined Limits Gastrointestinal Within Defined Limits Stool (unmeasured): 1 (11/08/23729) Stool Amount: moderate (11/08/23729) Stool Color: brown (11/08/23729) Stool Consistency: liquid;loose (11/08/23729) Genitourinary Within Defined Limits Musculoskeletal Assessment Within Defined Limits except for: Musculoskeletal Assessment: General Mobility: Generalized weakness Integumentary Within Defined Limits Patient Lines/Drains/Airways Status Active LDAs Name Placement date Placement time Site Days Peripheral IV 11/06/23 22 gauge;1 3/4 in length Anterior;Left Forearm 11/06/23 1640 -- 5 Psychosocial Psychosocial Assessment: Verbalized Emotional State: Acceptance Family Behavior: not present [employer] * Nursing Assessment - Nikole Diego RN - 11/11/2023 9:21 AM CST Nursing Assessment Head to Toe Shift Summary Pt A&O to self and is confused and re-oriented often. Pt BP elevated am meds given and will recheck. Pt up to bathroom with x1 assist and walker. Pt's at bedside and was a little tearful on her decline and confusion expressed concern regarding discharge. Pt has bed alarm for safety and will continue the POC. Nikole Diego, YOVANY, 11/11/2023 9:21 AM Neurologic/Cognitive Assessment Within Defined Limits except for: Cognition: poor judgement/safety awareness Orientation: disoriented to time, disoriented to situation and disoriented to place Speech: Illogical Comments: Pleasantly confused HEENT Assessment Within Defined Limits except for: Comments: Endorses MARIE Cardiac Within Defined Limits Respiratory Within defined limits Neurovascular Within Defined Limits Gastrointestinal Within Defined Limits Genitourinary Assessment Within Defined Limits except for: Voiding: Voiding without difficulty Musculoskeletal Assessment Within Defined Limits except for: Musculoskeletal Assessment: General Mobility: Generalized weakness Comments: Admitted for fall. 1 x assist to bathroom w/ walker and gait belt Integumentary Within Defined Limits Patient Lines/Drains/Airways Status Active LDAs Name Placement date Placement time Site Days Peripheral IV 11/06/23 22 gauge;1 3/4 in length Anterior;Left Forearm 11/06/23 1640 -- 4 Psychosocial Assessment Within Defined Limits except for: Psychosocial Assessment: Verbalized Emotional State: Acceptance Family Behavior: at bedside and attentive to patient Comments: tearful as he expressed her confusion and decline [employer] * Nursing Assessment - Carolina Awan RN - 11/11/2023 12:01 AM CST Nursing Assessment Head to Toe Head to Toe Assessment Shift Summary Alert & oriented to self only. Does not make needs known. at bedside. Ambulates stby assist of 1, doesn't like to use walker. Pleasantly confused and needs frequent reorienting. Sleeping intermittently through the night. Plan of care continues Neurologic/Cognitive Assessment Within Defined Limits except for: Orientation: disoriented to place, disoriented to time and disoriented to situation HEENT Within Defined Limits Cardiac Assessment Within Defined Limits except for: Behavior Management Specialist - remote telemetry Respiratory Assessment Within Defined Limits except for: Cough: Present Type: Nonproductive Neurovascular Within Defined Limits Gastrointestinal Within Defined Limits Stool (unmeasured): 1 (11/08/23729) Stool Amount: moderate (11/08/23729) Stool Color: brown (11/08/23729) Stool Consistency: liquid;loose (11/08/23729) Genitourinary Within Defined Limits Musculoskeletal Assessment Within Defined Limits except for: Musculoskeletal Assessment: General Mobility: Generalized weakness and mildly impaired Range of Motion: General - Integumentary Within Defined Limits Patient Lines/Drains/Airways Status Active LDAs Name Placement date Placement time Site Days Peripheral IV 11/06/23 22 gauge;1 3/4 in length Anterior;Left Forearm 11/06/23 1640 -- 4 Psychosocial Within Defined Limits [employer] * Nursing Assessment - Carolina Awan RN - 11/10/2023 9:30 PM CST Nursing Assessment Head to Toe Head to Toe Assessment Shift Summary Shift Summary Neurologic/Cognitive Assessment Within Defined Limits except for: Orientation: disoriented to place, disoriented to time and disoriented to situation HEENT Within Defined Limits Cardiac Assessment Within Defined Limits except for: Behavior Management Specialist - remote telemetry Respiratory Assessment Within Defined Limits except for: Cough: Present Type: Nonproductive Neurovascular Within Defined Limits Gastrointestinal Within Defined Limits Stool (unmeasured): 1 (11/08/23729) Stool Amount: moderate (11/08/23729) Stool Color: brown (11/08/23729) Stool Consistency: liquid;loose (11/08/23729) Genitourinary Within Defined Limits Musculoskeletal Assessment Within Defined Limits except for: Musculoskeletal Assessment: General Mobility: Generalized weakness and mildly impaired Range of Motion: General - Integumentary Within Defined Limits Patient Lines/Drains/Airways Status Active LDAs Name Placement date Placement time Site Days Peripheral IV 11/06/23 22 gauge;1 3/4 in length Anterior;Left Forearm 11/06/23 1640 -- 4 Psychosocial Within Defined Limits [employer] * Nursing Assessment - Elvira Benitez RN - 11/10/2023 6:34 PM CST Nursing Assessment Head to Toe Shift Summary Pt A&O to self and is confused and was wanting to go home this shift and was re- oriented. Pt c/o a headache at the beginning of the shift and was given Tylenol PRN and she reported relief at 18:00. Pt ate 100% of the supper and was given ice cream for dessert. Pt's at bedside this shift. Pt has bed alarm for safety and will continue to monitor and follow the POC. Pt 's c/o room being dirty , informed changed nurse and environmental services requested. Elvira Benitez RN, 11/10/2023 6:34 PM Neurologic/Cognitive Assessment Within Defined Limits except for: Cognition: poor judgement/safety awareness Orientation: disoriented to time and disoriented to situation HEENT Assessment Within Defined Limits except for: Comments: Endorses MARIE Cardiac Within Defined Limits Respiratory Within defined limits Neurovascular Within Defined Limits Gastrointestinal Within Defined Limits Genitourinary Assessment Within Defined Limits except for: Voiding: Voiding without difficulty Musculoskeletal Assessment Within Defined Limits except for: Musculoskeletal Assessment: General Mobility: Generalized weakness Comments: Admitted for fall. 1 x assist to bathroom w/ walker and gait belt Integumentary Within Defined Limits Patient Lines/Drains/Airways Status Active LDAs Name Placement date Placement time Site Days Peripheral IV 11/06/23 22 gauge;1 3/4 in length Anterior;Left Forearm 11/06/23 1640 -- 4 Psychosocial Assessment Within Defined Limits except for: Psychosocial Assessment: Verbalized Emotional State: Acceptance [employer] * Nursing Assessment - Zaira Bellamy, RN - 11/10/2023 11:11 AM CST Nursing Assessment Head to Toe Head to Toe Assessment. BP (!) 129/37 (Cuff Location: Left Arm) Pulse 62 Temp 36.2 ??C (97.1 ??F) (Axillary) Resp 16 Ht 1.473 m (4' 10) Wt 69.7 kg (153 lb 10.6 oz) SpO2 93% BMI 32.12 kg/m?? Shift Summary Pt A&O to self , pt states I think I am the hospital. Pleasantly confused. Endorses MARIE upon assessment. Pt stated she is going home today, Nutrition Services Manager reoriented to POC. Tylenol prn given for MARIE and scheduled medications were administered.Takes pills a few at a time w/ water. 1 x assist to commode w/ walker and gait belt. Pt's at bedside assisting w/ cares. Call light within reach. POC ongoing. Zaira Bellamy, RN, 11/10/2023 11:19 AM Pt 's c/o room being dirty , informed changed nurse and environmental services requested. Zaira Bellamy, RN, 11/10/2023 3:50 PM Neurologic/Cognitive Assessment Within Defined Limits except for: Cognition: poor judgement/safety awareness Orientation: disoriented to time and disoriented to situation HEENT Assessment Within Defined Limits except for: Comments: Endorses MARIE Cardiac Within Defined Limits Respiratory Within defined limits Neurovascular Within Defined Limits Gastrointestinal Within Defined Limits Stool (unmeasured): 1 (11/08/23729) Stool Amount: moderate (11/08/23729) Stool Color: brown (11/08/23729) Stool Consistency: liquid;loose (11/08/23729) Genitourinary Assessment Within Defined Limits except for: Voiding: Voiding without difficulty Musculoskeletal Assessment Within Defined Limits except for: Musculoskeletal Assessment: General Mobility: Generalized weakness Comments: Admitted for fall. 1 x assist to bathroom w/ walker and gait belt Integumentary Within Defined Limits Patient Lines/Drains/Airways Status Active LDAs Name Placement date Placement time Site Days Peripheral IV 11/06/23 22 gauge;1 3/4 in length Anterior;Left Forearm 11/06/23 1640 -- 3 Psychosocial Assessment Within Defined Limits except for: Psychosocial Assessment: Verbalized Emotional State: Acceptance [employer] * Nursing Assessment - Quynh Jenkins RN - 11/10/2023 6:46 AM CST Nursing Assessment Head to Toe Head to Toe Assessment Shift Summary Shift Summary Neurologic/Cognitive Assessment Within Defined Limits except for: Orientation: disoriented to place, disoriented to time and disoriented to situation Frequent Neuro Assessments have been documented in the flowsheets HEENT Within Defined Limits Cardiac Assessment Within Defined Limits except for: Behavior Management Specialist - remote telemetry Pacemaker: Pacemaker: No Respiratory Assessment Within Defined Limits except for: Cough: Present Type: Nonproductive Neurovascular Within Defined Limits Gastrointestinal Within Defined Limits Stool (unmeasured): 1 (11/08/23 0730) Stool Amount: moderate (11/08/23 0730) Stool Color: brown (11/08/23 0730) Stool Consistency: liquid;loose (11/08/23 0730) Genitourinary Within Defined Limits Musculoskeletal Assessment Within Defined Limits except for: Musculoskeletal Assessment: General Mobility: Generalized weakness Integumentary Within Defined Limits Patient Lines/Drains/Airways Status Active LDAs Name Placement date Placement time Site Days Peripheral IV 11/06/23 22 gauge;1 3/4 in length Anterior;Left Forearm 11/06/23 1640 -- 3 Psychosocial Within Defined Limits [employer] * Nursing Assessment - Anita Keating RN - 11/09/2023 5:41 PM CST Nursing Assessment Head to Toe Head to Toe Assessment Shift Summary Pt is alert to self/spouse and sometimes place. She has slept most of the day. She has not been eating the food on her tray, but did drink 2 strawberry boosts and a couple glass's of water. She is continent of urine and used the bedside commode once and ambulated to void in the bathroom once. She worked with PT this afternoon. Neuro's remain unchanged. BP 126/50 (Cuff Location: Left Arm) Pulse 58 Temp 37 ??C (98.6 ??F) (Tympanic) Resp 18 Ht 1.473 m (4' 10) Wt 69.7 kg (153 lb 10.6 oz) SpO2 93% BMI 32.12 kg/m?? I suspect ROMAN, pt O2 drops to the 60's while sleeping then pops right back to the 90's, notified. Pt is using supplemental O2 while asleep and the face mask works better (she's a mouth breather). Pt will be moving to STN 2 4.315 shortly. Neurologic/Cognitive Assessment Within Defined Limits except for: Cognition: poor attention/concentration Level of Consciousness: Lethargic Frequent Neuro Assessments have been documented in the flowsheets HEENT Within Defined Limits Cardiac Assessment Within Defined Limits except for: Chest Pain: No Behavior Management Specialist - remote telemetry Pacemaker: Pacemaker: No Respiratory Assessment Within Defined Limits except for: Cough: Present Comments: 2l [place] Neurovascular Within Defined Limits Gastrointestinal Assessment Within Defined Limits except for: Abdominal appearance: Obese Stool (unmeasured): 1 (11/08/23729) Stool Amount: moderate (11/08/23729) Stool Color: brown (11/08/23729) Stool Consistency: liquid;loose (11/08/23729) Genitourinary Within Defined Limits Musculoskeletal Assessment Within Defined Limits except for: Musculoskeletal Assessment: General Mobility: Generalized weakness Integumentary Within Defined Limits Patient Lines/Drains/Airways Status Active LDAs Name Placement date Placement time Site Days Peripheral IV 11/06/23 22 gauge;1 3/4 in length Anterior;Left Forearm 11/06/23 1640 -- 3 Psychosocial Within Defined Limits Shift Summary [employer] * Nursing Assessment - Anita Keating RN - 11/09/2023 11:44 AM CST Nursing Assessment Head to Toe Head to Toe Assessment Shift Summary Neurologic/Cognitive Assessment Within Defined Limits except for: Cognition: poor attention/concentration Level of Consciousness: Lethargic Frequent Neuro Assessments have been documented in the flowsheets HEENT Within Defined Limits Cardiac Assessment Within Defined Limits except for: Chest Pain: No Behavior Management Specialist - remote telemetry Pacemaker: Pacemaker: No Respiratory Assessment Within Defined Limits except for: Cough: Present Comments: 2l [place] Neurovascular Within Defined Limits Gastrointestinal Assessment Within Defined Limits except for: Abdominal appearance: Obese Stool (unmeasured): 1 (11/08/23729) Stool Amount: moderate (11/08/23729) Stool Color: brown (11/08/23729) Stool Consistency: liquid;loose (11/08/23729) Genitourinary Within Defined Limits Musculoskeletal Assessment Within Defined Limits except for: Musculoskeletal Assessment: General Mobility: Generalized weakness Integumentary Within Defined Limits Patient Lines/Drains/Airways Status Active LDAs Name Placement date Placement time Site Days Peripheral IV 11/06/23 22 gauge;1 3/4 in length Anterior;Left Forearm 11/06/23 1640 -- 2 Psychosocial Within Defined Limits EGLASS GUN HAND * Nursing Assessment - Mayte Grover RN - 11/09/2023 5:45 AM CST Nursing Assessment Head to Toe Head to Toe Assessment Shift Summary Pt is alert to to person place. Denies pain. WNL. Transfer one person assist with GB and squat pivot to commode. Voiding spontaneously no BM overnight. Pt spouse at bedside and supportive with care. Slept well between cares. Bed alarm on for pt safety. Intentional rounding completed. BP 117/43 (Cuff Location: Right Arm) Pulse 63 Temp 35.8 ??C (96.5 ??F) (Tympanic) Resp 19 Ht 1.473 m (4' 10) Wt 69.7 kg (153 lb 10.6 oz) SpO2 93% BMI 32.12 kg/m?? Neurologic/Cognitive Assessment Within Defined Limits except for: Cognition: poor attention/concentration and poor judgement/safety awareness Level of Consciousness: Confused Frequent Neuro Assessments have been documented in the flowsheets HEENT Within Defined Limits Cardiac Assessment Within Defined Limits except for: Behavior Management Specialist - remote telemetry Respiratory Assessment Within Defined Limits except for: Cough: Present Comments: On 2 liter NC Neurovascular Within Defined Limits Gastrointestinal Assessment Within Defined Limits except for: Abdominal appearance: Obese Additional GI Signs/Symptoms: constipation Stool (unmeasured): 1 (11/08/23729) Stool Amount: moderate (11/08/23729) Stool Color: brown (11/08/23729) Stool Consistency: liquid;loose (11/08/23729) Genitourinary Within Defined Limits Musculoskeletal Assessment Within Defined Limits except for: Musculoskeletal Assessment: General Mobility: Generalized weakness Integumentary Within Defined Limits Patient Lines/Drains/Airways Status Active LDAs Name Placement date Placement time Site Days Peripheral IV 11/06/23 22 gauge;1 3/4 in length Anterior;Left Forearm 11/06/23 1640 -- 2 Psychosocial Within Defined Limits EGLASS GUN HAND * Nursing Assessment - Chucho Blair, RN - 11/08/2023 6:54 PM CST Nursing Assessment Head to Toe Head to Toe Assessment Shift Summary Pt remains alert and confused with waxing/waning alertness and orientation. At times difficult to arouse and completely disoriented. Throughout the day pt with become more alert and oriented. BP within goal range throughout the day without need for intervention. Ambulates with 1-2x assist pivot to commode. Meds whole with water, [id number]-[id number]. Otherwise resting between cares with family present. Chucho Blair, RN, 11/08/2023 7:01 PM Neurologic/Cognitive Assessment Within Defined Limits except for: Cognition: poor attention/concentration Level of Consciousness: Lethargic Frequent Neuro Assessments have been documented in the flowsheets HEENT Within Defined Limits Cardiac Assessment Within Defined Limits except for: Behavior Management Specialist - remote telemetry Respiratory Assessment Within Defined Limits except for: Cough: Present Comments: 2l NC Neurovascular Within Defined Limits Gastrointestinal Assessment Within Defined Limits except for: Abdominal appearance: Obese Stool (unmeasured): 1 (11/08/23729) Stool Amount: moderate (11/08/23729) Stool Color: brown (11/08/23729) Stool Consistency: liquid;loose (11/08/23729) Genitourinary Within Defined Limits Musculoskeletal Assessment Within Defined Limits except for: Musculoskeletal Assessment: General Mobility: Generalized weakness Integumentary Within Defined Limits Patient Lines/Drains/Airways Status Active LDAs Name Placement date Placement time Site Days Peripheral IV 11/06/23 22 gauge;1 3/4 in length Anterior;Left Forearm 11/06/23 1640 -- 2 Psychosocial Within Defined Limits EGLASS GUN HAND * Nursing Assessment - Tone Rosario RN - 11/08/2023 3:02 AM CST Nursing Assessment Head to Toe Head to Toe Assessment Shift Summary Patient is alert and oriented to self. Intermittently oriented to time, place, and situation. Able to follow commands. Weakness noted with dorsiflexion on the right; appears to be due to pain. Provider team informed and evaluated patient at bedside Intermittent hypertension. PRN labetalol provided for systolics greater than 160. Saturations >95% on 2L nasal cannula tonight. Remote telemetry ordered. Standby assist with a walker and a gait belt.Continent of bowel and bladder; using bed mckenzie asputting weight on the right leg is causing pain. SCDs off due to discomfort. Addendum: Patient restless overnight. Frequently pulling at oxygen and pulse oximeter. Provider team paged. Loose stool x2. PRN labetalol provided x4. Neurologic/Cognitive Assessment Within Defined Limits except for: Cognition: poor judgement/safety awareness Orientation: disoriented to place, disoriented to time and disoriented to situation Frequent Neuro Assessments have been documented in the flowsheets HEENT Assessment Within Defined Limits except for: Head/Face Symptoms: trauma/injury Cardiac Assessment Within Defined Limits except for: Comments: Intermittent hypertension; PRN hydralazine for systolics greater than 160. Respiratory Assessment Within Defined Limits except for: Comments: 2L nasal cannula. Neurovascular Within Defined Limits Comments: Tenderness to right lower extremity; pain with dorsiflexion. Gastrointestinal Within Defined Limits Stool (unmeasured): 1 (11/07/23 0200) Stool Amount: moderate (11/07/23 0200) Stool Color: brown (11/06/23 0900) Stool Consistency: liquid (11/07/23 0200) Genitourinary Within Defined Limits Musculoskeletal Assessment Within Defined Limits except for: Musculoskeletal Assessment: General Mobility: Generalized weakness and mildly impaired Range of Motion: RLE - mildly impaired Comments: Standby assist with a walker and a gait belt. Integumentary Within Defined Limits Patient Lines/Drains/Airways Status Active LDAs Name Placement date Placement time Site Days Peripheral IV 11/06/23 22 gauge;1 3/4 in length Anterior;Left Forearm 11/06/23 1640 -- 1 Psychosocial Within Defined Limits EGLASS GUN HAND * Nursing Assessment - Tone Rosario RN - 11/07/2023 11:00 PM CST Nursing Assessment Head to Toe Head to Toe Assessment Shift Summary Patient is alert and oriented to self. Intermittently oriented to time, place, and situation. Able to follow commands. Weakness noted with dorsiflexion on the right; appears to be due to pain. Provider team informed and evaluated patient at bedside Intermittent hypertension. PRN labetalol provided for systolics greater than 160. Saturations >95% on 2L nasal cannula tonight. Remote telemetry ordered. Standby assist with a walker and a gait belt.Continent of bowel and bladder; using bed mckenzie asputting weight on the right leg is causing pain. SCDs off due to discomfort. Neurologic/Cognitive Assessment Within Defined Limits except for: Cognition: poor judgement/safety awareness Orientation: disoriented to place, disoriented to time and disoriented to situation Frequent Neuro Assessments have been documented in the flowsheets HEENT Assessment Within Defined Limits except for: Head/Face Symptoms: trauma/injury Cardiac Assessment Within Defined Limits except for: Comments: Intermittent hypertension; PRN hydralazine for systolics greater than 160. Respiratory Assessment Within Defined Limits except for: Comments: 2L nasal cannula. Neurovascular Within Defined Limits Comments: Tenderness to right lower extremity; pain with dorsiflexion. Gastrointestinal Within Defined Limits Stool (unmeasured): 1 (11/07/23 0200) Stool Amount: moderate (11/07/23 0200) Stool Color: brown (11/06/23 0900) Stool Consistency: liquid (11/07/23 0200) Genitourinary Within Defined Limits Musculoskeletal Assessment Within Defined Limits except for: Musculoskeletal Assessment: General Mobility: Generalized weakness and mildly impaired Range of Motion: RLE - mildly impaired Comments: Standby assist with a walker and a gait belt. Integumentary Within Defined Limits Patient Lines/Drains/Airways Status Active LDAs Name Placement date Placement time Site Days Peripheral IV 11/06/23 22 gauge;1 3/4 in length Anterior;Left Forearm 11/06/23 1640 -- 1 Psychosocial Within Defined Limits EGLASS GUN HAND * Nursing Assessment - Chucho Blair, RN - 11/07/2023 6:26 PM CST Nursing Assessment Head to Toe Head to Toe Assessment Shift Summary Pt lethargic for most the day, became more wakeful around 1400 and passed swallow eval with speech therapy. Ambulated to bathroom with 1x assist, walker and gait belt. All restraints removed and oxygen titrated down to 2l via NC. Tylenol given for headache--sleeping at reassessment. Hydralazine andlabetalol given for sys>160. Otherwise waxing/waning orientation. Chucho Blair, RN, 11/07/2023 6:32 PM Neurologic/Cognitive Assessment Within Defined Limits except for: Orientation: disoriented to place, disoriented to time and disoriented to situation Frequent Neuro Assessments have been documented in the flowsheets HEENT Within Defined Limits Cardiac Assessment Within Defined Limits except for: Behavior Management Specialist - remote telemetry Respiratory Assessment Within Defined Limits except for: Cough: Present Frequency: Intermittent Type: Nonproductive Comments: 2l NC Neurovascular Within Defined Limits Gastrointestinal Within Defined Limits Stool (unmeasured): 1 (11/07/23 0200) Stool Amount: moderate (11/07/23 0200) Stool Color: brown (11/06/23 0900) Stool Consistency: liquid (11/07/23 0200) Genitourinary Within Defined Limits Musculoskeletal Assessment Within Defined Limits except for: Musculoskeletal Assessment: General Mobility: Generalized weakness Integumentary Within Defined Limits Patient Lines/Drains/Airways Status Active LDAs Name Placement date Placement time Site Days Peripheral IV 11/06/23 22 gauge;1 3/4 in length Anterior;Left Forearm 11/06/23 1640 -- 1 Psychosocial Within Defined Limits EGLASS GUN HAND * Nursing Assessment - Chucho Blair, RN - 11/07/2023 11:39 AM CST Nursing Assessment Head to Toe Head to Toe Assessment Shift Summary Shift Summary Neurologic/Cognitive Assessment Within Defined Limits except for: Level of Consciousness: Lethargic Orientation: disoriented to place, disoriented to time and disoriented to situation Frequent Neuro Assessments have been documented in the flowsheets HEENT Within Defined Limits Cardiac Within Defined Limits Respiratory Within defined limits Neurovascular Within Defined Limits Gastrointestinal Within Defined Limits Stool (unmeasured): 1 (11/07/23 0200) Stool Amount: moderate (11/07/23 0200) Stool Color: brown (11/06/23 0900) Stool Consistency: liquid (11/07/23 0200) Genitourinary Assessment Within Defined Limits except for: Voiding: Incontinent Musculoskeletal Within Defined Limits Integumentary Within Defined Limits Patient Lines/Drains/Airways Status Active LDAs Name Placement date Placement time Site Days Peripheral IV 11/06/23 22 gauge;1 3/4 in length Anterior;Left Forearm 11/06/23 1640 -- less than 1 Psychosocial Within Defined Limits EGLASS GUN HAND * Nursing Assessment - Tone Rosario RN - 11/07/2023 1:24 AM CST Nursing Assessment Head to Toe Head to Toe Assessment Shift Summary Patient is alert and oriented to self on initial assessment. On repeat neuro assessments, oriented to time and place. Disoriented to situation. Able to follow commands. Strength and sensation intact.Intermittent hypertension. Clevidipine drip stopped at 1900. Systolic blood pressures <160 sincethis time. Saturations >95% on 4L via oxy mask as patient breathes through her mouth. Remote telemetry ordered. Continent of bowel and bladder. Standby assist with a walker and a gait belt; steadyon her feet. Patient's , Wan, present at the bedside overnight. Addendum: Patient restless overnight. Frequently pulling at oxygen and telemetry lines; attempting to get out of bed. Provider team paged and olanzapine ordered; 10mg provided at 0145. Neurologicallyunchanged overnight. Neurologic/Cognitive Assessment Within Defined Limits except for: Cognition: poor judgement/safety awareness Orientation: disoriented to place, disoriented to time and disoriented to situation Frequent Neuro Assessments have been documented in the flowsheets HEENT Assessment Within Defined Limits except for: Head/Face Symptoms: trauma/injury Cardiac Assessment Within Defined Limits except for: Comments: Intermittent hypertension; PRN hydralazine for systolics greater than 160. Respiratory Assessment Within Defined Limits except for: Comments: 4L O2 via mask; patient often breathes through mouth. Neurovascular Within Defined Limits Gastrointestinal Within Defined Limits Stool (unmeasured): 1 (11/06/232199) Stool Amount: small (11/06/232199) Stool Color: brown (11/06/23899) Stool Consistency: liquid (11/06/23899) Genitourinary Within Defined Limits Musculoskeletal Assessment Within Defined Limits except for: Musculoskeletal Assessment: General Mobility: Generalized weakness and mildly impaired Comments: Standby assist with a walker and a gait belt; steady gait. Integumentary Within Defined Limits Patient Lines/Drains/Airways Status Active LDAs Name Placement date Placement time Site Days Peripheral IV 11/06/23 22 gauge;1 3/4 in length Anterior;Left Forearm 11/06/23 1640 -- less than 1 Psychosocial Within Defined Limits EGLASS GUN HAND * Nursing Assessment - Tone Rosario RN - 11/06/2023 10:52 PM CST Nursing Assessment Head to Toe Head to Toe Assessment Shift Summary Patient is alert and oriented to self on initial assessment. On repeat neuro assessments, oriented to time and place. Disoriented to situation. Able to follow commands. Strength and sensation intact.Intermittent hypertension. Clevidipine drip stopped at 1900. Systolic blood pressures <160 sincethis time. Saturations >95% on 4L via oxy mask as patient breathes through her mouth. Remote telemetry ordered. Continent of bowel and bladder. Standby assist with a walker and a gait belt; steadyon her feet. Patient's , Wan, present at the bedside overnight. Neurologic/Cognitive Assessment Within Defined Limits except for: Cognition: poor judgement/safety awareness Orientation: disoriented to place, disoriented to time and disoriented to situation Frequent Neuro Assessments have been documented in the flowsheets HEENT Assessment Within Defined Limits except for: Head/Face Symptoms: trauma/injury Cardiac Assessment Within Defined Limits except for: Comments: Intermittent hypertension; PRN hydralazine for systolics greater than 160. Respiratory Assessment Within Defined Limits except for: Comments: 4L O2 via mask; patient often breathes through mouth. Neurovascular Within Defined Limits Gastrointestinal Within Defined Limits Stool (unmeasured): 1 (11/06/23899) Stool Amount: small (11/06/23899) Stool Color: brown (11/06/23899) Stool Consistency: liquid (11/06/23899) Genitourinary Within Defined Limits Musculoskeletal Assessment Within Defined Limits except for: Musculoskeletal Assessment: General Mobility: Generalized weakness and mildly impaired Comments: Standby assist with a walker and a gait belt; steady gait. Integumentary Within Defined Limits Patient Lines/Drains/Airways Status Active LDAs Name Placement date Placement time Site Days Peripheral IV 11/06/23 22 gauge;1 3/4 in length Anterior;Left Forearm 11/06/23 1640 -- less than 1 Psychosocial Within Defined Limits EGLASS GUN HAND * Nursing Assessment - Chantal Higgins RN - 11/06/2023 8:03 PM CST Nursing Assessment Head to Toe Head to Toe Assessment Shift Summary No acute events, remains on 3 L face mask, no neuro changes in the evening. Clevidipine drip stopped at 1910, monitoring BP closely. Chantal Higgins, RN, 11/06/2023 8:05 PM Neurologic/Cognitive Assessment Within Defined Limits except for: Orientation: disoriented to place, disoriented to time and disoriented to situation HEENT Assessment Within Defined Limits except for: Head/Face Symptoms: trauma/injury Cardiac Assessment Within Defined Limits except for: Comments: Clevidipine drip Respiratory Assessment Within Defined Limits except for: Comments: 3 L mask, desats to 30s while asleep Neurovascular Within Defined Limits Gastrointestinal Within Defined Limits Stool (unmeasured): 1 (11/06/23899) Stool Amount: small (11/06/23899) Stool Color: brown (11/06/23899) Stool Consistency: liquid (11/06/23899) Genitourinary Within Defined Limits Musculoskeletal Assessment Within Defined Limits except for: Musculoskeletal Assessment: General Mobility: Generalized weakness and mildly impaired Integumentary Within Defined Limits Patient Lines/Drains/Airways Status Active LDAs Name Placement date Placement time Site Days Peripheral IV 11/06/23 22 gauge;1 3/4 in length Anterior;Left Forearm 11/06/23 1640 -- less than 1 Psychosocial Within Defined Limits EGLASS GUN HAND * Nursing Assessment - Chantal Higgins RN - 11/06/2023 2:37 PM CST Nursing Assessment Head to Toe Head to Toe Assessment Shift Summary Pt remained A&O to self only throughout day, at bedside. Pt repeatedly asks the same questions and does not remember the answers. Assist of 1 with a walker to BR, walked in hallways with PT. Complained of nausea/small bout of vomiting in the morning, relieved by Zofran. On 3 L NC in morning, in the afternoon pt began to desat consistently in the 30s and even down to 17 with good pleth. Pt would go back to 90s shortly after. Team and RT paged, placed on 3 L facemask, appears to have helped. Denies numbness and tingling, did complain of headache periodically. Takes medication whole,doesn't have much of an appetite. Continuing to monitor and following POC. Chantal Higgins, RN, 11/06/2023 2:44 PM Neurologic/Cognitive Assessment Within Defined Limits except for: Orientation: disoriented to place, disoriented to time and disoriented to situation HEENT Assessment Within Defined Limits except for: Head/Face Symptoms: trauma/injury Cardiac Assessment Within Defined Limits except for: Comments: Clevidipine drip Respiratory Assessment Within Defined Limits except for: Comments: 3 L mask, desats to 30s while asleep Neurovascular Within Defined Limits Gastrointestinal Within Defined Limits Genitourinary Within Defined Limits Musculoskeletal Assessment Within Defined Limits except for: Musculoskeletal Assessment: General Mobility: Generalized weakness and mildly impaired Integumentary Within Defined Limits Patient Lines/Drains/Airways Status Active LDAs Name Placement date Placement time Site Days Peripheral IV 11/04/23 18 gauge Left Antecubital 11/04/23 -- -- 2 Peripheral IV 11/05/23 22 gauge Anterior;Left Forearm 11/05/23 0710 -- 1 Psychosocial Within Defined Limits EGLASS GUN HAND * Nursing Assessment - Musa De La Torre RN - 11/06/2023 4:25 AM FIBREGLASS GUN HAND Nursing Assessment Head to Toe Head to Toe Assessment Shift Summary Shift Summary Continues on clevidipine drip at 8mg/hr with goal of SBP<140. Confused and impulsive, pulling atlines and attempting to get out of bed; oriented to self and sometimes place only - bed alarm required. at bedside overnight. Musa De La Torre RN, 11/06/2023 4:34 AM Neurologic/Cognitive Assessment Within Defined Limits except for: Cognition: poor judgement/safety awareness Orientation: disoriented to time and disoriented to situation Mood/Behavior: Impulsive Frequent Neuro Assessments have been documented in the flowsheets HEENT Within Defined Limits Cardiac Assessment Within Defined Limits except for: Behavior Management Specialist - remote telemetry Respiratory Within defined limits Comments: 3L 02 per nasal cannula Neurovascular Within Defined Limits Gastrointestinal Within Defined Limits Genitourinary Assessment Within Defined Limits except for: Voiding: Incontinent Musculoskeletal Assessment Within Defined Limits except for: Musculoskeletal Assessment: General Mobility: Generalized weakness Range of Motion: General - mildly impaired Integumentary Assessment Within Defined Limits except for: Skin Assessment Color/Characteristics - bruised (ecchymotic) Patient Lines/Drains/Airways Status Active LDAs Name Placement date Placement time Site Days Peripheral IV 11/04/23 18 gauge Left Antecubital 11/04/23 -- -- 2 Peripheral IV 11/05/23 22 gauge Anterior;Left Forearm 11/05/23 0710 -- less than 1 Female External Urinary Catheter 11/06/23 0058 -- less than 1 Psychosocial Assessment Within Defined Limits except for: Psychosocial Assessment: Family Behavior: at bedside, attentive to patient and interacting with patient EGLASS GUN HAND * Transfer - Musa De La Torre RN - 11/06/2023 12:20 AM CST Images from the original note were not included. TRANSFER IN NOTE D: Patient transferred in to [place] [id number] from [facility] at 2320. Patient condition on arrival: Alert, oriented to self and place, pleasant and cooperative. Clevidipine drip running at 6mg. Patient Belonging 11/05/2023 1550 Location: H given to daughter Jewelry Location: H given to daughter Medications brought in by patient?: Given to family to take home A: Settled patient in to new room: oriented to room, VS done, assessment done, and team notified of arrive in. Orders already updated/appropriate for new station.. Upon transfer, a [facility] Skin Inspection was completed with Yoana PEDROZA Skin injuries were not present, and skin breakdown needing further assessment will be added to [facility]. Will implement interventions from Skin INJURY Bundle as appropriate. R: Resting comfortably at this time. at bed side. P: Commence with cares per Care Plan and orders. Musa De La Torre RN, 11/06/2023 12:22 AM EGLASS GUN HAND * Nursing Assessment - Derek Marie RN - 11/05/2023 10:33 PM CST Nursing Assessment Head to Toe Head to Toe Assessment Shift Summary Shift Summary Neurologic/Cognitive Assessment Within Defined Limits except for: Cognition: poor judgement/safety awareness Level of Consciousness: Lethargic Arousal Level: Arouses to pain HEENT Assessment Within Defined Limits except for: Cardiac Assessment Within Defined Limits except for: Heart sounds: S1, S2 Behavior Management Specialist - bedside telemetry ECG Rhythm: normal sinus rhythm ST Segment (mm): Normal Respiratory Within defined limits Comments: 3 L n c Neurovascular Within Defined Limits Gastrointestinal Within Defined Limits Genitourinary Within Defined Limits Musculoskeletal Assessment Within Defined Limits except for: Musculoskeletal Assessment: General Mobility: Generalized weakness Range of Motion: General - mildly impaired Integumentary Assessment Within Defined Limits except for: Skin Assessment Color/Characteristics - bruised (ecchymotic) Moisture - dry Patient Lines/Drains/Airways Status Active LDAs Name Placement date Placement time Site Days Peripheral IV 11/04/23 18 gauge Left Antecubital 11/04/23 -- -- 1 Peripheral IV 11/05/23 22 gauge Anterior;Left Forearm 11/05/23 0710 -- less than 1 Psychosocial Assessment Within Defined Limits except for: Psychosocial Assessment: Family Behavior: at bedside, attentive to patient, interacting with patient and participating in care EGLASS GUN HAND * Nursing Assessment - Eloise Randolph RN - 11/05/2023 8:00 PM CST Nursing Assessment Head to Toe Head to Toe Assessment Shift Summary SHIFT [id number] NEURO - Patient Alert to self, and to time and place and situation until later in shift when patient would need to be woken up and was more confused. Pupils, equal, round and reactive. Strength is equal in all 4 extremities. CARDIAC - Patient remained around goal of SBP<140 with titrations of clevidipine. NSR RESP - Maintained SATS >95 throughout shift on 3L via NC GI/ - no voiding during this shift and only small incontinent episode of bladder, otherwise none. ACTIVITY - Ax1 with gait belt. R radial Art line removed at 1730 Clevidipine @6 Eloise Randolph, YOVANY, 11/05/2023 11:11 PM Neurologic/Cognitive Assessment Within Defined Limits except for: Arousal Level: Arouses to voice Orientation: disoriented to time, disoriented to situation and disoriented to place Mood/Behavior: Calm HEENT Within Defined Limits Cardiac Assessment Within Defined Limits except for: Behavior Management Specialist - bedside telemetry ECG Rhythm: normal sinus rhythm Respiratory Assessment Within Defined Limits except for: Comments: On 3L O2 via NC Neurovascular Within Defined Limits Gastrointestinal Assessment Within Defined Limits except for: Abdominal appearance: Rounded Bowel Sounds hypoactive - all quadrants faint - all quadrants Additional GI Signs/Symptoms: constipation Genitourinary Assessment Within Defined Limits except for: Voiding: Voiding without difficulty Musculoskeletal Assessment Within Defined Limits except for: Musculoskeletal Assessment: General Mobility: Generalized weakness Integumentary Within Defined Limits Patient Lines/Drains/Airways Status Active LDAs Name Placement date Placement time Site Days Peripheral IV 11/04/23 18 gauge Left Antecubital 11/04/23 -- -- 1 Peripheral IV 11/05/23 22 gauge Anterior;Left Forearm 11/05/23 0710 -- less than 1 Psychosocial Assessment Within Defined Limits except for: Psychosocial Assessment: Family Behavior: at bedside, attentive to patient, interacting with patient and sitting quietly at bedside EGLASS GUN HAND * Nursing Assessment - José Urbano RN - 11/05/2023 4:06 PM CST Nursing Assessment Head to Toe Head to Toe Assessment Shift Summary No significant events on shift. Patient oriented to self and intermittently place. Reports ongoing diplopia with spots of cloudiness. Clevidipine titrated to maintain SBP <140. Oral antihypertensives administered this AM with a small improvement in hypertension. She is able to ambulate in roomwith assist of one. Neurologic/Cognitive Assessment Within Defined Limits except for: Orientation: disoriented to place, disoriented to time and disoriented to situation Frequent Neuro Assessments have been documented in the flowsheets HEENT Assessment Within Defined Limits except for: Head/Face Symptoms: tenderness Comments: L parietal pain Cardiac Assessment Within Defined Limits except for: Behavior Management Specialist - bedside telemetry Lead Monitored: Lead II ECG Rhythm: normal sinus rhythm MN Interval (sec): 0.16 QRS Interval (sec): 0.13 QT Interval: 0.41 QTc Interval: 0.48 ST Segment (mm): Normal T-Wave: Normal Pacemaker: Pacemaker: No Respiratory Within defined limits Neurovascular Within Defined Limits Gastrointestinal Within Defined Limits Genitourinary Within Defined Limits Musculoskeletal Within Defined Limits Integumentary Assessment Within Defined Limits except for: Skin Assessment Color/Characteristics - bruised (ecchymotic) Integrity - see Avatar LDA documentation Patient Lines/Drains/Airways Status Active LDAs Name Placement date Placement time Site Days Peripheral IV 11/04/23 18 gauge Left Antecubital 11/04/23 -- -- 1 Peripheral IV 11/05/23 22 gauge Anterior;Left Forearm 11/05/23 0710 -- less than 1 Arterial Line Small lumen Left Radial 11/04/231999 -- less than 1 Psychosocial Within Defined Limits EGLASS GUN HAND * Nursing Assessment - Eloise Randolph RN - 11/05/2023 4:00 PM CST Nursing Assessment Head to Toe Head to Toe Assessment Shift Summary Shift Summary Neurologic/Cognitive Assessment Within Defined Limits except for: Arousal Level: Arouses to voice Orientation: disoriented to time and disoriented to situation Mood/Behavior: Calm HEENT Within Defined Limits Cardiac Assessment Within Defined Limits except for: Behavior Management Specialist - bedside telemetry ECG Rhythm: normal sinus rhythm Respiratory Assessment Within Defined Limits except for: Comments: On 3L O2 via NC Neurovascular Within Defined Limits Gastrointestinal Assessment Within Defined Limits except for: Abdominal appearance: Rounded Bowel Sounds hypoactive - all quadrants faint - all quadrants Additional GI Signs/Symptoms: constipation Genitourinary Assessment Within Defined Limits except for: Voiding: Voiding without difficulty Musculoskeletal Assessment Within Defined Limits except for: Musculoskeletal Assessment: General Mobility: Generalized weakness Integumentary Within Defined Limits Patient Lines/Drains/Airways Status Active LDAs Name Placement date Placement time Site Days Peripheral IV 11/04/23 18 gauge Left Antecubital 11/04/23 -- -- 1 Peripheral IV 11/05/23 22 gauge Anterior;Left Forearm 11/05/23 0710 -- less than 1 Arterial Line Small lumen Left Radial 11/04/231999 -- less than 1 Psychosocial Assessment Within Defined Limits except for: Psychosocial Assessment: Family Behavior: at bedside, attentive to patient, interacting with patient and sitting quietly at bedside EGLASS GUN HAND * Nursing Assessment - José Urbano RN - 11/05/2023 9:35 AM CST Nursing Assessment Head to Toe Head to Toe Assessment Shift Summary Shift Summary Neurologic/Cognitive Assessment Within Defined Limits except for: Orientation: disoriented to place, disoriented to time and disoriented to situation Frequent Neuro Assessments have been documented in the flowsheets HEENT Assessment Within Defined Limits except for: Head/Face Symptoms: tenderness Comments: L parietal pain Cardiac Assessment Within Defined Limits except for: Behavior Management Specialist - bedside telemetry Lead Monitored: Lead II ECG Rhythm: normal sinus rhythm MN Interval (sec): 0.16 QRS Interval (sec): 0.13 QT Interval: 0.41 QTc Interval: 0.48 ST Segment (mm): Normal T-Wave: Normal Pacemaker: Pacemaker: No Respiratory Within defined limits Neurovascular Within Defined Limits Gastrointestinal Within Defined Limits Genitourinary Within Defined Limits Musculoskeletal Within Defined Limits Integumentary Assessment Within Defined Limits except for: Skin Assessment Color/Characteristics - bruised (ecchymotic) Integrity - see Avatar LDA documentation Patient Lines/Drains/Airways Status Active LDAs Name Placement date Placement time Site Days Peripheral IV 11/04/23 18 gauge Left Antecubital 11/04/23 -- -- 1 Peripheral IV 11/05/23 22 gauge Anterior;Left Forearm 11/05/23 0710 -- less than 1 Arterial Line Small lumen Left Radial 11/04/231999 -- less than 1 Female External Urinary Catheter 11/04/232199 -- less than 1 Psychosocial Within Defined Limits EGLASS GUN HAND * Trauma Tertiary Exam - Jesusita Aiken APRN, EMILY - 11/05/2023 7:08 AM CST TRAUMA TERTIARY EXAM - ART EDUCATION PROFESSOR First Exam Lucinda Kennedy : 1940 Sex: female Subjective: Patient awake, alert and oriented to self and place only. Disoriented to situation, andtime. Following commands and participating on exam. Reports headache . Noted to have expressive aphasia. Denies any chest pain, SOB, nausea, vomiting, lightheadedness or vision changes. Admit Date & Time: 11/04/2023 10:39 PM No past medical history on file. Mental Status Adequate for Exam: No Examiner: Jesusita Aiken APRN, EMILY, 11/05/2023 7:08 AM Primary Team: [facility] Date/Time Completed: 11/05/2023 10:24 Vital Signs: Patient Vitals for the past 8 hrs: Pulse Resp Temp SpO2 11/05/23 0800 -- -- 36.9 ??C (98.4 ??F) -- 11/05/23 0700 83 21 -- 93 % 11/05/23 0607 -- -- 36.3 ??C (97.4 ??F) -- 11/05/23 0600 88 22 -- 92 % 11/05/23 0500 94 19 -- 93 % 11/05/23 0400 92 (!) 25 36.8 ??C (98.3 ??F) 92 % 11/05/23 0300 97 24 -- 91 % 11/05/23 0258 98 24 -- 91 % 11/05/23 0200 100 21 -- 96 % Neurologic: Alert and oriented X 2, moves all extremities. Expressive aphasia. CN II - XII grossly intact. HEENT Eyes: PERRLA, conjunctiva/corneas normal. Head: Normocephalic. No abrasions, lacerations or hematomas noted. Ears: Canals without blood or CSF drainage, TMs clear, external ears without lacerations. Nose/sinus: Septum midline, no crepitus with motion. Nares normal, mucosa pink, no sinus drainage and no sinus tenderness. Throat/Oropharynx: Oral mucosa without lacerations, tongue without lacerations. Face: Stable mid-face and no pain with palpation.No abrasions, lacerations or hematomas. Neck: No midline pain with palpation or active ROM. Chest: External Exam - No air, crepitus or pain with palpation. No lacerations, abrasions or contusions. Pulmonary: Breath sounds clear, symmetrical. No wheezes, rales, consolidation. Breathing comfortably on 2 L NC Cardiovascular Heart: Regular rate and rhythm, S1, S2, no murmurs/rubs/gallops. Peripheral vascular: bilateral carotid, radial, femoral, DP and PT pulses are palpable. Gastrointestinal Abdominal: Non distended, no scars, no lacerations. No tenderness or masses, organomegaly or peritoneal signs. Rectal: Not examined. Genitourinary: No lesions present, no injuries Musculoskeletal: Back: Non-tender, spine without tenderness or step-offs Muscular strength intact. Extremities: Upper: Right upper extremity joints: Non-tender to palpation over clavicle, shoulder, arm, elbow, forearm, wrist. Normal ROM shoulder, elbow, wrist without pain. Grossly moving upper extremities without issues. Radial pulse palpable. strength 5/5 Left upper extremity: Non-tender to palpation over clavicle, shoulder, arm, elbow, forearm, wrist. Normal ROM shoulder, elbow, wrist without pain. Grossly moving upper extremities without issues. Radial pulse palpable. strength 5/5 Lower: Right lower extremity : joints move freely and without pain. Non-tender to palpation over knee, leg, ankle/foot. DP/PT palpable, toes warm/well- perfused. No pain with ROM hip/knee/ankle. Strength 5/5. Left lower extremity: joints move freely and without pain. Non-tender to palpation over knee, leg, ankle/foot. DP/PT palpable, toes warm/well-perfused. No pain with ROM hip/knee/ankle. Strength 5/5. Pelvic Stability: Stable and no pain with palpation. Skin: Warm and dry without ecchymoses or lesions. Imaging Results CT Head ( initial): 1. Thin subdural hematomas measuring up to 3 mm along the posterior falx, right greater than left tentorial leaflets and right cerebral convexity. No midline shift. 2. Scattered foci of subarachnoid hemorrhage as detailed above. 3. 9 mm focus of left periventricular hemorrhage about the caudate nucleus. CT Head-Neck Angio: Slightly increased size of the subdural hematoma along the right cerebral convexity measuring 6 mm, previously 3 mm. Additional foci of hemorrhage appears stable compared to prior. No suspected vascular injury or vascular malformation. CT Head ( 3rd): 1. Stable to perhaps minimally increased size of subdural hemorrhage along the falx and tentorial leaflets when compared to the head CT from approximately 6 hours earlier. Stable subdural hemorrhage along the right cerebral convexity. 2. Several new areas of subarachnoid hemorrhage. 3. Stable left periventricular hemorrhagic about the caudate nucleus and small intraparenchymal hemorrhage in the left frontal white matter. CT Head ( 4th): - Stable head CT as compared to the study performed 7 hours earlier. - Intra-axial and extra-axial hemorrhage(s) without midline shift or hydrocephalus. The basal cisterns are patent. CT C-Spine: 1. No acute fracture or traumatic subluxation of the cervical vertebrae. 2. Mild degenerative changes of the cervical spine without high-grade spinal canal or neural foraminal narrowing. CT T & L-Spine: 1. No suspected acute fracture or dislocation of the thoracic or lumbar spine. 2. [id number] lumbar spondylosis without evidence of high-grade spinal canal or neural foraminal narrowing. CT CAP: 1. No acute traumatic sequelae in the chest, abdomen or pelvis. 2. Several sub-5 mm pulmonary nodules are noted. If considered high risk, can consider additional follow-up CT in 12 months to document stability. 3. Colonic diverticulosis without evidence of acute diverticulitis. Chest XR: No acute cardiopulmonary findings Pelvis XR: not obtained FAST Exam: negative No Pericardial Effusion identified, No Free Intraperitoneal Fluid identified, No Pleural Effusion identified, and No Pneumothorax Identified Other XRs: none Alcohol Screening (for all patients > 11 years of age) No results found for: ETOH ABEL: not obtained Alcohol Use: No (screening complete) All patients who respond yes above should be given the Togolese or Ukrainian version of the Alcohol Use and Your health document found at this link: [email or web address] [email or web address] CAGE Screen: If patient answers Yes to 1 CAGE question, print and provide them with the Alcohol Use and Your Health document found at this link: [email or web address] [email or web address] If patient answers Yes to 2 or more questions. Provide the Addiction Medicine Resources handout found at link below and place an Addiction Medicine Consult Order if patient is interested. [email or web address] 1. In the past year: Have you felt you should cut down on your drinking? no 2. In the past year: Have people annoyed you by criticizing your drinking? no 3. In the past year: Have you felt bad or guilty about your drinking? no 4. In the past year: Have you had an eye cellophane bag machine operator first thing in the morning to steady your nerves? no Interventions Completed: no interventions required Next Step Patient has penetrating trauma (stab, GSW)?: No. Abbreviated Clinical Frailty Score (Screen those age 65 and older) Does the patient engage in moderate to strenuous sports or recreational activities?: Yes - CFS <4, screening complete Does patient have any of the following life limiting illnesses?: Patient has no life limiting illness Interpreting the score: CFS < 4 = not frail CFS 4-6 = living with mild to moderate frailty CFS >7 = living with severe or very severe frailty or terminally ill When to order Palliative Care consult: If trauma patient age > 80 YO - consult Palliative Care for Goals of Care Discussion If trauma patient age 75-80 YO with a CFS >/= 4 or life limiting illness - consult Palliative Care for Goals of Care Discussion If trauma patient age 65-74 YO with a CFS >/= 4 and life limiting illness - consult Palliative Care for Goals of Care Discussion If trauma patient and CFS >/= 7, consult Palliative Care Consult PIN SORTER AND BAGGER for: TBI or Altered Mental Status *If patient meets criteria for an PIN SORTER AND BAGGER consult, please order aspiration precautions Mental Health Screening: Have you had any experience that was so frightening, horrible, or upsetting that, in the past month, you: Have had nightmares about it or thought about it when you did not want to? no Tried hard not to think about it or went out of your way to avoid situations that remind you of it?no Were constantly on guard, watchful, or easily startled? no [place] numb or detached from others, activities, or your surroundings? no *If patient has a positive screen (3 or more yes questions) offer a Trauma Psych consult and add PTSD brochure to AVS. Interventions Completed: PTSD Brochure added to AVS Assessment : Lucinda Kennedy is a 83 y.o. female with PMH of HTN, HLD, DM II who was admitted after a fall at home. Per report, patient was found at the bottom of the stairs by her . Imaging notable foe below listed injuries. Neurosurgery consulted. CT head-neck angio showed increased SDH. Repeat HCT showing stable head bleeds Trauma tertiary exam completed. No new findings. Current known injuries: SDH along the posterior falx, right greater than left tentorial leaflets and right cerebral convexity SAH along the left frontoparietal regions near the vertex and the left ambient cistern. left periventricular hemorrhage about the caudate nucleus. TBI New findings: none Incidental Findings: Several sub-5 mm pulmonary nodules are noted. If considered high risk, can consider additional follow-up CT in 12 months to document stability. Colonic diverticulosis without evidence of acute diverticulitis. Plan Consult Palliative Care for Goals of Care Discussion (trauma patient age > 80 YO) Imaging needed: None Labs needed: MG, PHOS, CBC, BMP Wound care plans(s): Not applicable Suture/Miguel: None Antibiotics: none Drains Present: none Hedrick: Not present Lines: Peripheral and Arterial DVT prophylaxis: Mechanical: SCDs and Chemical: Contraindicated: SDH, SAH risk for bleeding Diet: NPO until PIN SORTER AND BAGGER eval Activity: Up ad nia C/T/L-Spine status: cleared Weight-bearing status: no restrictions Therapy: PT, OT, OT for cognitive screen, and PIN SORTER AND BAGGER Consulting Teams(s) Plan and/or Follow-up Recommendations: Neurosurgery: - Recommend CTA head/neck - Serial neuro exams q2h -Okay for q4h neuro exams after stable repeat head CT - repeat head CT in 6 hours - Adequate sedation and pain control - please attempt to limit sedating medications - Seizure prophylaxis: None - Na goal >140 - Replace electrolytes as needed - Hgb > 8.0, Plt > 100K, INR < 1.5 - SBP < 140 - PRN labetalol/hydralazine to maintain SBP goals - Supplemental O2 as needed - Continue cardiac monitoring - Monitor UOP and I/Os - Daily CBC, BMP, PT/INR - hold all anticoagulants - SCDs for DVT prophylaxis - VTE prophylaxis contraindicated at this time - PT/OT when appropriate - Remainder of cares per the primary team - TBI follow up ordered Follow-Up Tertiary Exam: Not required; patient responsive and able to participate in clinical exam. Discharge Plan: DC to Home, Pending therapist(s) recommendations, and To be determined. Jesusita Aiken, SALES OPERATIONS CONSULTANT, GLASS BLOWER HELPER 11/05/2023 07:08 EGLASS GUN HAND * Nursing Assessment - Rafa Tineo RN - 11/05/2023 5:23 AM CST Nursing Assessment Head to Toe Head to Toe Assessment Shift Summary Pt received from ED. Able to state name and location. Unable to state situation or date. Pupil perrl. No deficits in strength. Clevidipine drip running Neurologic/Cognitive Assessment Within Defined Limits except for: Orientation: disoriented to situation and disoriented to time Speech: Aphasia - expressive Frequent Neuro Assessments have been documented in the flowsheets HEENT Within Defined Limits Cardiac Assessment Within Defined Limits except for: Behavior Management Specialist - bedside telemetry Lead Monitored: Lead II ECG Rhythm: normal sinus rhythm and sinus tachycardia Respiratory Assessment Within Defined Limits except for: Comments: 2L Nc Neurovascular Within Defined Limits Gastrointestinal Assessment Within Defined Limits except for: Comments: NPO Genitourinary Assessment Within Defined Limits except for: Comments: External female catheter Musculoskeletal Assessment Within Defined Limits except for: Musculoskeletal Assessment: General Mobility: Generalized weakness Integumentary Within Defined Limits Patient Lines/Drains/Airways Status Active LDAs Name Placement date Placement time Site Days Peripheral IV 11/04/23 20 gauge Anterior;Right Forearm 11/04/23 -- -- 1 Peripheral IV 11/04/23 18 gauge Left Antecubital 11/04/23 -- -- 1 Psychosocial Assessment Within Defined Limits except for: Psychosocial Assessment: Observed Patient Behaviors: Pleasant Verbalized Emotional State: Acceptance Family Behavior: at bedside and interacting with patient EGLASS GUN HAND * Nursing Assessment - Rafa Tineo RN - 11/05/2023 2:00 AM CST Nursing Assessment Head to Toe Head to Toe Assessment Shift Summary Pt received from ED. Able to state name and location. Unable to state situation or date. Pupil perrl. No deficits in strength. Clevidipine drip running Neurologic/Cognitive Assessment Within Defined Limits except for: Orientation: disoriented to situation and disoriented to time Speech: Aphasia - expressive Frequent Neuro Assessments have been documented in the flowsheets HEENT Within Defined Limits Cardiac Assessment Within Defined Limits except for: Behavior Management Specialist - bedside telemetry Lead Monitored: Lead II ECG Rhythm: normal sinus rhythm and sinus tachycardia Respiratory Assessment Within Defined Limits except for: Comments: 2L Nc Neurovascular Within Defined Limits Gastrointestinal Assessment Within Defined Limits except for: Comments: NPO Genitourinary Assessment Within Defined Limits except for: Comments: External female catheter Musculoskeletal Assessment Within Defined Limits except for: Musculoskeletal Assessment: General Mobility: Generalized weakness Integumentary Within Defined Limits Patient Lines/Drains/Airways Status Active LDAs Name Placement date Placement time Site Days Peripheral IV 11/04/23 20 gauge Anterior;Right Forearm 11/04/23 -- -- 1 Peripheral IV 11/04/23 18 gauge Left Antecubital 11/04/23 -- -- 1 Psychosocial Assessment Within Defined Limits except for: Psychosocial Assessment: Observed Patient Behaviors: Pleasant Verbalized Emotional State: Acceptance Family Behavior: at bedside and interacting with patient EGLASS GUN HAND * Interdisciplinary Note - Amelia Lobo MD - 11/05/2023 12:16 AM FIBREGLASS GUN HAND Patient oriented to self, date, family and medical history. Discussed code status with patient. Shewishes to be full code accepting of CPR and intubation at this time. Amelia Lobo MD, MPH 11/05/2023 06:17 PGY-5 General Surgery Resident Pager: [phone] or via [employer] EGLASS GUN HAND * Interval Note Provider - Priscilla Holcomb MD - 11/04/2023 11:44 PM FIBREGLASS GUN HAND PROCEDURES I performed the following procedures: Art Line Priscilla Holcomb MD, 11/04/2023 11:44 PM EGLASS GUN HAND * ED Faculty Note - Devin Dougherty MD - 11/04/2023 11:13 PM CST Images from the original note were not included. ED Faculty Attestation and Critical Care Note Lucinda Kennedy : 1940 Sex: female Patient Arrival Date and Time: 11/04/2023 10:39 PM FACULTY ATTESTATION I Devin Dougherty MD, I have discussed the case with the Resident. I have personally performed ahistory, physical exam, and my own medical decision making. I have reviewed the note and agree withthe findings and plan. Upon my evaluation, this patient had a high probability of imminent life or limb-threatening deterioration due to fall down stairs, which required my highest level of preparedness to intervene emergently, and I spent this critical care time directly and personally managing the patient. I have personally provided 60 minutes of critical care time exclusive of time spent on separately billable procedures, treating other patients, or teaching time. Time includes obtaining history, examining the patient, ordering and review of studies, pharmacotherapy including nicardipine, pulse oximetry, review of laboratory data, interpretation of radiology studies, ECG interpretation, frequent reassessment, monitoring for potential decompensation, discussion with consultants, and admission. This critical care time was performed to assess and manage the high probability of imminent deterioration that could result in respiratory failure, cardiac faliure, neurologic disability, loss of vision, loss of limb, shock, multisystem organ failure, and Trauma Team: Tier 2 activation. ED Course as of 11/04/23 2327 Sun Nov 04, 2023 2240 83 yo unwitnessed fall down stairs +LOC with AMS. Unknown blood thinners [address] head and c spine. Labs including UA 2245 Cxr and pelvis xray 2245 Hypertensive suspect hypertensive bleed. 2312 Right SDH, parafalcine SDH, periventricular hemorrhage and small SAH. Will place art line and start clevedipine 2312 Nsgy consulted. 231 Talked to daughter. Not on blood thinners PROCEDURES I was present with the resident during the chavez or critical portions of the following procedure(s): art line placement Devin Dougherty MD, 11/04/2023 11:13 PM EGLASS GUN HAND * ED Stabilization Note - Norm Hernandez MD - 11/04/2023 10:52 PM CST Emergency Medicine Stabilization Room Note Lucinda Kennedy 1940 Sex: female Patient Arrival Date and Time: 11/04/2023 10:39 [address] Medicine [address]. Dougherty EM Stabilization Resident Norm Hernandez Stabilization Team RN: Rafa Cornejo HCA: [facility] Trauma Surgery and Neurosurgery Pre-Hospital Events Lucinda Kennedy is a 83 y.o. female presents to the stabilization room for fall on thinners. Patient was found at bottom of stairs by and was unconscious. Patient was reported to be on blood thinners to EMS. She is normally ANOx3 and was confused and ANOx1 with EMS. It was presumed shefell down the stairs initially. Fall was not witnessed and there is no external signs of trauma noted by EMS. Here patient endorses mild headache but has no other complaints at this time. Patient is unsure if she is on blood thinners or not. We do not have any additional contact information at thistime we cannot confirm if patient is on thinners. Patient was stable on transport with EMS with only some hypertension. Additional history is limited based on the patient's critical illness. Primary Survey Airway: Patent, protecting Breathing: Non-labored, symmetric chest rise Circulation: Skin warm. Radial pulses palpable. Disability: 4 - Opens eyes spontaneously; 4 - Confused, disoriented; 6 - Obeys commands) GCS 15 Exposure: Clothing removed. Vital Signs BP 150/66 Pulse 76 Temp 36.7 ??C (98 ??F) (Oral) Resp 18 Ht 1.473 m (4' 10) Wt 69.7 kg (153 lb 10.6 oz) SpO2 98% BMI 32.12 kg/m?? Please seen flowsheet for additional vitals. Secondary Survey General: Awake, Alert, Appropriate. and C-Collar in Place Head: NC/AT. No postauricular ecchymosis noted. Eyes: No conjunctival injection, Lids normal, no periorbital ecchymosis noted ENT: No drainage noted from external ears or nares. No swelling, mass or injury to neck Neck: C Collar in place Cardio: Regular rate and rhythm Pulm: See primary survey GI: Soft, NT/ND. : Normal external genitalia. No blood noted from the meatus MSK: Freely moving all extremities. No contractures, deformities or cyanosis. and No midline cervical, thoracic, or lumbar TTP or stepoffs palpated Neuro: PERRLA. No grossly focal sensory or motor deficits noted. Normal speech. Skin: No rashes, lesions or bruising. Skin warm/dry Psych: Limited exam d/t acuity of patient's condition Review of Systems Review of systems and history limited by patient's acuity Code Status I am unaware of any advanced directive wishes of this patient prior to treatment of this patient. Stabilization Room Events / Medical Decision Making / Disposition Lucinda Kennedy is a 83 y.o. female presenting with concerns for fall on thinners. As the patient arrived to the stabilization room, report was taken from EMS. Patient transferred to STAB cart. Primary survey completed while patient placed on oximetry, cardiac monitoring, and cuff blood pressure monitoring. Trauma surgery paged. Intravenous access established and initial blood tests sent. Secondary survey completed DDx includes Intracranial hemorrhage, TBI, vertebral fracture, extremity/ pelvis/ rib/ skull fracture, perforated viscus, solid organ injury, myocardial contusion, pulmonary contusion, pneumo- or hemothorax, aortic injury. ED Course as of 11/05/23 1320 Sun Nov 04, 2023 2308 Right SDH, paraflacine SDH, small periventricular hemorrhage, small SAH on headt CT Patient initial arrival was awake alert but mildly confused. There is no signs of external trauma on exam. FAST U/S without evidence of free fluid CXR without traumatic pathology Labs notable for hgb 10.3, lactate 2.7, CT Head significant for right subdural hemorrhage, parafalcine subdural hemorrhage, small periventricular intraparenchymal hemorrhage, small subarachnoid hemorrhage, CT C-Spine without acute abnormality or evidence or trauma, and CT CAP without acute abnormality Arterial line was placed by Dr. Holcomb Patient started on clevidipine drip to titrate for blood pressure less than 140 and Keppra was given. Patient signed out to the oncoming for possible she waited for SICU bed upstairs Clinical Impression 1. Fall, initial encounter 2. SDH (subdural hematoma) () Disposition Admit to SICU Signed out to [facility] Procedures I performed the following procedures: Adult Trauma Resuscitation. Norm Hernandez MD, PGY-3 Emergency Medicine Resident [employer] [employer] documented in this encounter Plan of Treatment Scheduled Referrals Name Type Priority Associated Diagnoses Orde r Schedule REFERRAL TO TRAUMATIC BRAIN INJURY Referral Routine Fall, initial encounter SDH (subdural hematoma) (CMS) SAH (subarachnoid hemorrhage) (CMS/HHS) Traumatic brain injury with loss of consciousness, initial encounter ([facility]) Ordered: 11/08/2023 documented as of this encounter Procedures Procedure Name Priority Date/Time Associated Diagnosis Comments PANEL BASIC METABOLIC (BMP) Routine 11/16/2023 7:22 AM [facility] POC GLUCOSE Routine 11/16/2023 6:58 AM [facility] POC GLUCOSE Routine 11/15/2023 9:15 PM [facility] POC GLUCOSE Routine 11/15/2023 4:09 PM [facility] POC GLUCOSE Routine 11/15/2023 12:46 PM [facility] PANEL BASIC METABOLIC (BMP) Routine 11/15/2023 7:39 AM [facility] POC GLUCOSE Routine 11/15/2023 6:11 AM [facility] POC GLUCOSE Routine 11/14/2023 9:02 PM [facility] [facility] POC GLUCOSE Routine 11/14/2023 4:21 PM [facility] [facility] POC GLUCOSE Routine 11/14/2023 12:19 PM [facility] PANEL BASIC METABOLIC (BMP) Routine 11/14/2023 8:59 AM [facility] [facility] POC GLUCOSE Routine 11/14/2023 8:11 AM [facility] POC GLUCOSE Routine 11/13/2023 9:15 PM [facility] [facility] POC GLUCOSE Routine 11/13/2023 4:03 PM [facility] [facility] POC GLUCOSE Routine 11/13/2023 11:21 AM [facility] [facility] PANEL BASIC METABOLIC (BMP) Routine 11/13/2023 6:41 AM [facility] [facility] POC GLUCOSE Routine 11/13/2023 6:31 AM [facility] [facility] POC GLUCOSE Routine 11/12/2023 9:21 PM [facility] [facility] POC GLUCOSE Routine 11/12/2023 4:12 PM [facility] [facility] PANEL BASIC METABOLIC (BMP) Timed 11/12/2023 1:01 PM [facility] [facility] POC GLUCOSE Routine 11/12/2023 12:14 PM [facility] [facility] POC GLUCOSE Routine 11/12/2023 6:09 AM [facility] [facility] POC GLUCOSE Routine 11/11/2023 8:48 PM [facility] [facility] POC GLUCOSE Routine 11/11/2023 4:11 PM [facility] [facility] POC GLUCOSE Routine 11/11/2023 11:47 AM [facility] PHOSPHORUS Routine 11/11/2023 6:09 AM [facility] PANEL BASIC METABOLIC (BMP) Routine 11/11/2023 6:09 AM [facility] MAGNESIUM Routine 11/11/2023 6:09 AM [facility] TC LAB BLOOD DRAW BY VENIPUNCTURE Routine 11/11/2023 6:09 AM [facility] [facility] POC GLUCOSE Routine 11/10/2023 8:58 PM [facility] [facility] POC GLUCOSE Routine 11/10/2023 4:16 PM [facility] [facility] POC GLUCOSE Routine 11/10/2023 11:15 AM [facility] PHOSPHORUS Routine 11/10/2023 6:17 AM [facility] [facility] PANEL BASIC METABOLIC (BMP) Routine 11/10/2023 6:17 AM [facility] MAGNESIUM Routine 11/10/2023 6:17 AM [facility] [facility] PC LAB CBC/PLT Routine 11/10/2023 6:17 AM [facility] [facility] POC GLUCOSE Routine 11/09/2023 9:41 PM [facility] [facility] POC GLUCOSE Routine 11/09/2023 3:58 PM [facility] ANTI XA ASSAY LMW HEPARIN Timed 11/09/2023 2:18 PM [facility] POC GLUCOSE Routine 11/09/2023 11:28 AM [facility] XR FOOT RIGHT 3 V AP/OBL/LAT* Routine 11/09/2023 10:36 AM [facility] POC GLUCOSE Routine 11/09/2023 5:46 AM [facility] PC VALPROIC ACID LEVEL DEPAHOTE Routine 11/09/2023 5:41 AM [facility] PHOSPHORUS Routine 11/09/2023 5:41 AM [facility] PANEL BASIC METABOLIC (BMP) Routine 11/09/2023 5:41 AM [facility] MAGNESIUM Routine 11/09/2023 5:41 AM [facility] PC LAB CBC/PLT Routine 11/09/2023 5:41 AM [facility] [facility] POC GLUCOSE Routine 11/08/2023 8:40 PM [facility] PHOSPHORUS Routine 11/08/2023 4:20 PM [facility] PANEL BASIC METABOLIC (BMP) Routine 11/08/2023 4:20 PM [facility] MAGNESIUM Routine 11/08/2023 4:20 PM [facility] TC LAB BLOOD DRAW BY VENIPUNCTURE Routine 11/08/2023 4:20 PM [facility] POC GLUCOSE Routine 11/08/2023 3:56 PM [facility] POC GLUCOSE Routine 11/08/2023 11:03 AM [facility] XR CHEST 1 VIEW AP OR PA* Routine 11/08/2023 6:30 AM [facility] [facility] POC GLUCOSE Routine 11/08/2023 6:22 AM [facility] [facility] POC GLUCOSE Routine 11/07/2023 9:34 PM [facility] POC GLUCOSE Routine 11/07/2023 4:06 PM [facility] [facility] POC GLUCOSE Routine 11/07/2023 11:45 AM [facility] XR CHEST 2 VIEWS PA + LAT* Routine 11/07/2023 10:07 AM [facility] PC PROCALCITONIN (PCT) Routine 8:34 AM [facility] PHOSPHORUS Routine 11/07/2023 8:34 AM [facility] PANEL BASIC METABOLIC (BMP) Routine 11/07/2023 8:34 AM [facility] MAGNESIUM Routine 11/07/2023 8:34 AM [facility] PC LAB CBC/PLT Routine 11/07/2023 8:34 AM [facility] POC GLUCOSE Routine 11/07/2023 5:45 AM [facility] POC GLUCOSE Routine 11/06/2023 9:21 PM [facility] PHOSPHORUS Timed 11/06/2023 1:06 PM [facility] PANEL BASIC METABOLIC (BMP) Timed 11/06/2023 1:06 PM [facility] MAGNESIUM Timed 11/06/2023 1:06 PM [facility] PC GASES,BLOOD,ANY COMB OF PH,PCD2,PO2,CO2,HCO2 Routine 11/06/2023 1:06 PM [facility] PC LAB CBC/PLT Timed 11/06/2023 1:06 PM [facility] POC GLUCOSE Routine 11/06/2023 1:04 PM [facility] [facility] POC GLUCOSE Routine 11/06/2023 10:49 AM [facility] PC MAGNESIUM, SERUM Routine 11/06/2023 6 :31 AM [facility] PC PHOSPHORUS INORGANIC(PHOSPHATE) Routine 11/06/2023 6:31 AM [facility] PC LAB CBC/PLT Routine 11/06/2023 6:31 AM [facility] TC LAB BLOOD DRAW BY VENIPUNCTURE Routine 11/06/2023 6:31 AM [facility] PROTHROMBIN (PT) & INR Timed 6:31 AM [facility] PC LAB GLYCOSYLATED HGB Routine 11/06/2023 6:31 AM [facility] POC GLUCOSE Routine 11/06/2023 5:39 AM [facility] POC GLUCOSE Routine 11/05/2023 4:54 PM [facility] MAGNESIUM Routine 11/05/2023 4:48 PM [facility] POTASSIUM Routine 11/05/2023 4:[address] [address] [address] HEAD NO IV CONTRAST Timed 11:44 AM [facility] POC GLUCOSE Routine 11/05/2023 11:11 AM [facility] EKG ADULT (12-LEAD) Routine 11/05/2023 6 :38 AM [facility] POC GLUCOSE Routine 11/05/2023 6:[address] [address] [address] HEAD NO IV CONTRAST Timed 4:54 AM [facility] PC MAGNESIUM, SERUM Routine 11/05/2023 4 :27 AM [facility] PC PHOSPHORUS INORGANIC(PHOSPHATE) Routine 11/05/2023 4:27 AM [facility] PC GASES,BLOOD,ANY COMB OF PH,PCD2,PO2,CO2,HCO2 Routine 11/05/2023 4:27 AM [facility] PC LAB CBC/PLT Routine 11/05/2023 4:27 AM [facility] TC LAB BLOOD DRAW BY VENIPUNCTURE Routine 11/05/2023 4:27 AM [facility] PC TROPONIN QUANTITATIVE Timed 11/05/2023 4:27 AM [facility] PROTHROMBIN (PT) & INR Timed 4:27 AM [facility] PC TROPONIN QUANTITATIVE Timed 11/05/2023 2:58 AM [facility] PROTHROMBIN (PT) & INR STAT 1:32 AM [facility] PHOSPHORUS STAT 11/05/2023 1:32 AM [facility] PANEL BASIC METABOLIC (BMP) STAT 11/05/2023 1:32 AM [facility] MAGNESIUM STAT 11/05/2023 1:32 AM [facility] PANEL HEPATIC FUNCTION STAT 1:32 AM [facility] FIBRINOGEN STAT 11/05/2023 1:32 AM [facility] CK, TOTAL STAT 11/05/2023 1:32 AM [facility] PC LAB CBC/PLT STAT 11/05/2023 1:32 AM [facility] PC LAB PTT STAT 11/05/2023 1:32 AM [facility] PC TROPONIN QUANTITATIVE Timed 11/05/2023 1:18 AM [facility] PC LACTATE (LACTIC ACID) STAT 11/05/2023 1:18 AM [facility] PC IONIZED,CALCIUM STAT 11/05/2023 1: 18 AM [facility] PC GASES,BLOOD,ANY COMB OF PH,PCD2,PO2,CO2,HCO2 STAT 11/05/2023 1:[address] [address] [address] HEAD-NECK - ANGIO - W/IV CON STAT 11/05/2023 12:09 AM [facility] PC LAB COMPLETE UA STAT 11/04/2023 11 :55 PM [facility] PF INSERT CATH,ART,PERCUT,SANTA ERM Routine 11/04/2023 11:43 PM [facility] ED EKG (12-LEAD) Routine 11/04/2023 11:2 [address] [address] [address] SPINE THORACIC NO IV CON STAT 11/04/2023 11:[address] [address] [address] SPINE LUMBAR NO IV CON STAT 11/04/2023 11:[address] [address] SPINE CERVICAL NO IV CON STAT 11/04/2023 11:[address] [address] [address] HEAD NO IV CONTRAST STAT 11:[address] [address] CHEST/ABD/PELVIS W/IV CONT STAT 11/04/2023 11:05 PM [facility] XR CHEST 1 VIEW AP OR PA* STAT 11/04/2023 10:57 PM [facility] PC ELECTROLYTES PANEL STAT 11/04/2023 10:48 PM [facility] TC LAB ER STAT TOTAL HGB STAT 11/04/2023 10:48 PM [facility] PC LAB ED INR STAT 11/04/2023 10:45 PM [facility] TC LAB BLOOD DRAW BY VENIPUNCTURE Routine 11/04/2023 10:45 PM [facility] EXTRA TUBE - SST Routine 11/04/2023 10:4 5 PM [facility] PC TROPONIN QUANTITATIVE STAT 11/04/2023 10:45 PM [facility] PC LAB CBC W/DIFF & PLT STAT 11/04/2023 10:45 PM [facility] PRECAUTIONARY TUBE STAT 11/04/2023 10 :45 PM [facility] PC LACTATE (LACTIC ACID) STAT 11/04/2023 10:45 PM [facility] PC GASES,BLOOD,ANY COMB OF PH,PCD2,PO2,CO2,HCO2 STAT 11/04/2023 10:45 PM [facility] FIBRINOGEN STAT 11/04/2023 10:45 PM [facility] PC HEPARIN ASSAY STAT 11/04/2023 10:4 5 PM [facility] PC LAB PTT STAT 11/04/2023 10:45 PM [facility] ED US CRITICAL CARE STAT 11/04/2023 1 0:40 PM [facility] documented in this encounter Results * (ABNORMAL) PANEL BASIC METABOLIC (BMP) (11/16/2023 7:22 AM [facility]) Sodium 143 135 - 148 mEq/L [facility] Potassium 3.9 3.5 - 5.3 mEq/L [facility] Chloride 105 92 - 108 mEq/L [facility] CO2 27 22 - 30 mEq/L [facility] AnGap 11 8 - 16 mEq/L [facility] Glucose 87 70 - 100 mg/dL [facility] BUN 23 8 - 23 mg/dL [facility] Creatinine 1.19(H) 0.50 - 1.00 mg/dL [facility] Calcium 9.4 8.8 - 10.2 mg/dL [facility] eGFR (2020 CKD-EPI) 46(L) >=60 ml/min/1.7 3m2 [facility] Comment: The estimated glomerular filtration rate (eGFR) was calculated using the CKD-EPI 2020 creatinine equation, which does not include race as a factor. This equation is validated in individuals 18 years of age and older, and eGFR is normalized to a body surface area of 1.73m^2. Blood 11/16/2023 7:22 AM [facility] 11/16/2023 7:43 AM [facility] Jesusita Aiken APRN, EMILY [facility]AT[facility] RY Performing Organization Address City/[facility]/ZIP Co de Phone Number [facility] [place] [address] * POC GLUCOSE (11/16/2023 6:58 AM [facility]) POC Glucose 84 70 - 100 mg/dL [facility] Blood 11/16/2023 6:58 AM [facility] Devin Dougherty MD LABORATORY Performing Organization Address City/[facility]/ZIP Co de Phone Number [facility] [address] [place] [address], [place] * POC GLUCOSE (11/15/2023 9:15 PM [facility]) POC Glucose 83 70 - 100 mg/dL [facility] Blood 11/15/2023 9:15 PM [facility] Devin Dougherty MD LABORATORY Performing Organization Address City/[facility]/ZIP Co de Phone Number [facility] [address] [place] [address], [place] * POC GLUCOSE (11/15/2023 4:09 PM [facility]) POC Glucose 91 70 - 100 mg/dL [facility] Blood 11/15/2023 4:09 PM [facility] Devin Dougherty MD LABORATORY Performing Organization Address City/[facility] Co de Phone Number [facility] [address] [place] [address], [place] * POC GLUCOSE (11/15/2023 12:46 PM [facility]) POC Glucose 88 70 - 100 mg/dL [facility] Blood 11/15/2023 12:4 6 PM [facility] [facility] Devin Dougherty MD LABORATORY Performing Organization Address City/[facility] Co de Phone Number [facility] [address] [place] [address], [place] * PANEL BASIC METABOLIC (BMP) (11/15/2023 7:39 AM [facility]) CO2 27 22 - 30 mEq/L [facility] Glucose 96 70 - 100 mg/dL [facility] BUN 20 8 - 23 mg/dL [facility] Creatinine 0.89 0.50 - 1.00 mg/dL [facility] Calcium 9.4 8.8 - 10.2 mg/dL [facility] Sodium 142 135 - 148 mEq/L [facility] Potassium 3.7 3.5 - 5.3 mEq/L [facility] Chloride 104 92 - 108 mEq/L [facility] eGFR (2020 CKD-EPI) 65 >=60 ml/min/1.7 3m2 [facility] Comment: The estimated glomerular filtration rate (eGFR) was calculated using the CKD-EPI 2020 creatinine equation, which does not include race as a factor. This equation is validated in individuals 18 years of age and older, and eGFR is normalized to a body surface area of 1.73m^2. AnGap 11 8 - 16 mEq/L [facility] Blood 11/15/2023 7:39 AM [facility] 11/15/2023 8:31 AM [facility] Jesusita Aiken APRN, [employer] LABORATO RY [facility] [place] [address] * (ABNORMAL) POC GLUCOSE (11/15/2023 6:11 AM [facility]) POC Glucose 105(H) 70 - 100 mg/dL [facility] Blood 11/15/2023 6:11 AM [facility] Devin Dougherty MD LABORATORY Performing Organization Address City/[facility] Co de Phone Number [facility] [place] [id number], [place] * (ABNORMAL) POC GLUCOSE (11/14/2023 9:02 PM [facility]) POC Glucose 168(H) 70 - 100 mg/dL [facility] Blood 11/14/2023 9:02 PM [facility] Devin Dougherty MD LABORATORY Performing Organization Address City/[facility] Co de Phone Number [facility] [address] [place] [address], [place] * (ABNORMAL) POC GLUCOSE (11/14/2023 4:21 PM [facility]) POC Glucose 128(H) 70 - 100 mg/dL [facility] Blood 11/14/2023 4:21 PM [facility] [facility] Devin Dougherty MD LABORATORY Performing Organization Address City/[facility] Co de Phone Number [facility] [address] [place] [address], [place] * POC GLUCOSE (11/14/2023 12:19 PM [facility] [facility]) POC Glucose 84 70 - 100 mg/dL [facility] Blood 11/14/2023 12:1 9 PM [facility] [facility] Devin Dougherty MD LABORATORY Performing Organization Address City/[facility] Co de Phone Number [facility] [address] [place] [address], [place] * (ABNORMAL) PANEL BASIC METABOLIC (BMP) (11/14/2023 8:59 AM [facility]) CO2 28 22 - 30 mEq/L [facility] Glucose 158(H) 70 - 100 mg/dL [facility] BUN 19 8 - 23 mg/dL [facility] Creatinine 0.79 0.50 - 1.00 mg/dL [facility] Calcium 9.3 8.8 - 10.2 mg/dL [facility] eGFR (2020 CKD-EPI) 75 >=60 ml/min/1.7 3m2 [facility] Comment: The estimated glomerular filtration rate (eGFR) was calculated using the CKD-EPI 2020 creatinine equation, which does not include race as a factor. This equation is validated in individuals 18 years of age and older, and eGFR is normalized to a body surface area of 1.73m^2. Sodium 142 135 - 148 mEq/L [facility] Potassium 3.8 3.5 - 5.3 mEq/L [facility] Chloride 103 92 - 108 mEq/L [facility] AnGap 11 8 - 16 mEq/L [facility] Blood 11/14/2023 8:59 AM [facility] 11/14/2023 9:21 AM [facility] Jesusita Aiken APRN, [employer] LABORATO RY [facility] [address] [place] [phone] * (ABNORMAL) POC GLUCOSE (11/14/2023 8:11 AM [facility]) POC Glucose 139(H) 70 - 100 mg/dL [facility] Blood 11/14/2023 8:11 AM [facility] [facility] Devin Dougherty MD LABORATORY [facility] [address] [place] [address], [place] * (ABNORMAL) POC GLUCOSE (11/13/2023 9:15 PM [facility] [facility]) POC Glucose 120(H) 70 - 100 mg/dL [facility] Blood 11/13/2023 9:15 PM [facility] [employer] Devin Dougherty MD LABORATORY Performing Organization Address City/[facility] Co de Phone Number [facility] POINT OF [address] [address], [place] * (ABNORMAL) POC GLUCOSE (11/13/2023 4:03 PM [facility]) POC Glucose 169(H) 70 - 100 mg/dL [facility] Blood 11/13/2023 4:03 PM [facility] [facility] Devin Dougherty MD LABORATORY [facility] [address] [place] [phone], [place] * (ABNORMAL) POC GLUCOSE (11/13/2023 11:21 AM [facility]) POC Glucose 166(H) 70 - 100 mg/dL [facility] Blood 11/13/2023 11:2 1 AM [facility] [facility] Devin Dougherty MD LABORATORY Performing Organization Address [facility] Co de Phone Number [facility] [address] [place] [address] * (ABNORMAL) PANEL BASIC METABOLIC (BMP) (11/13/2023 6:41 AM [facility]) CO2 30 22 - 30 mEq/L [facility] Glucose 121(H) 70 - 100 mg/dL [facility] BUN 24(H) 8 - 23 mg/dL [facility] Creatinine 0.87 0.50 - 1.00 mg/dL [facility] Calcium 8.9 8.8 - 10.2 mg/dL [facility] Sodium 143 135 - 148 mEq/L [facility] Potassium 3.0(L) 3.5 - 5.3 mEq/L [facility] Chloride 103 92 - 108 mEq/L [facility] eGFR (2020 CKD-EPI) 67 >=60 ml/min/1.7 3m2 [facility] Comment: The estimated glomerular filtration rate (eGFR) was calculated using the CKD-EPI 2020 creatinine equation, which does not include race as a factor. This equation is validated in individuals 18 years of age and older, and eGFR is normalized to a body surface area of 1.73m^2. AnGap 10 8 - 16 mEq/L [facility] Blood 11/13/2023 6:41 AM [facility] [facility] 11/13/2023 7:37 AM [facility] Quinn Covarrubias MD LABORATORY Performing Organization Address [facility] Co de Phone Number [facility] [place] [address] * (ABNORMAL) POC GLUCOSE (11/13/2023 6:31 AM [facility] [employer]) POC Glucose 128(H) 70 - 100 mg/dL [facility] Blood 11/13/2023 6:31 AM [employer] Devin Dougherty MD LABORATORY Performing Organization Address City/[facility]/ZIP Co de Phone Number [facility] [address] [place] [id number], [place] * POC GLUCOSE (11/12/2023 9:21 PM [employer] [employer]) [facility] POC Glucose 97 70 - 100 mg/dL [facility] Comment:R2 <=% Blood 11/12/2023 9:21 PM [employer] Devin Dougherty MD LABORATORY Performing Organization Address [facility] Co de Phone Number [facility] [address] [place] [address], [place] * POC GLUCOSE (11/12/2023 4:12 PM [employer]) [facility] POC Glucose 89 70 - 100 mg/dL [facility] Blood 11/12/2023 4:12 PM [employer] Devin Dougherty MD LABORATORY Performing Organization Address [facility] Co de Phone Number [facility] [address] [place] [address], [place] * (ABNORMAL) PANEL BASIC METABOLIC (BMP) (11/12/2023 1:01 PM [employer] [employer]) [facility] Sodium 144 135 - 148 mEq/L [facility] Potassium 3.4(L) 3.5 - 5.3 mEq/L [facility] Chloride 104 92 - 108 mEq/L [facility] CO2 31(H) 22 - 30 mEq/L [facility] AnGap 9 8 - 16 mEq/L [facility] Glucose 118(H) 70 - 100 mg/dL [facility] BUN 29(H) 8 - 23 mg/dL [facility] Creatinine 0.92 0.50 - 1.00 mg/dL [facility] Calcium 9.3 8.8 - 10.2 mg/dL [facility] eGFR (2020 CKD-EPI) 63 >=60 ml/min/1.7 3m2 [facility] Comment: The estimated glomerular filtration rate (eGFR) was calculated using the CKD-EPI 2020 creatinine equation, which does not include race as a factor. This equation is validated in individuals 18 years of age and older, and eGFR is normalized to a body surface area of 1.73m^2. Blood 11/12/2023 1:01 PM [facility] 11/12/2023 1:44 PM [facility] Quinn Covarrubias MD LABORATORY [facility] [address] [place] [address] * (ABNORMAL) POC GLUCOSE (11/12/2023 12:14 PM [facility]) POC Glucose 117(H) 70 - 100 mg/dL [facility] Blood 11/12/2023 12:1 4 PM [facility] Devin Dougherty MD LABORATORY Performing Organization Address City/[facility]/ZIP Co de Phone Number [facility] [address] [place] [phone], [place] * POC GLUCOSE (11/12/2023 6:09 AM [facility]) POC Glucose 80 70 - 100 mg/dL [facility] Blood 11/12/2023 6:09 AM [facility] [facility] Devin Dougherty MD LABORATORY Performing Organization Address City/[facility]/ZIP Co de Phone Number [facility] [address] [place] [phone], [place] * POC GLUCOSE (11/11/2023 8:48 PM [facility]) POC Glucose 99 70 - 100 mg/dL [facility] Blood 11/11/2023 8:48 PM [facility] [employer] Devin Dougherty MD LABORATORY [facility] [address] [place] [phone], [place] * POC GLUCOSE (11/11/2023 4:11 PM [facility] [facility]) POC Glucose 93 70 - 100 mg/dL [facility] Blood 11/11/2023 4:11 PM [facility] Devin Dougherty MD LABORATORY Performing Organization Address City/[facility]/ZIP Co de Phone Number [facility] [address] [place] [address], [place] * POC GLUCOSE (11/11/2023 11:47 AM [facility] [facility]) Pathologist [facility] POC Glucose 89 70 - 100 mg/dL [facility] Blood 11/11/2023 11:4 7 AM [facility] [facility] Devin Dougherty MD LABORATORY Performing Organization Address City/[facility] Co de Phone Number [facility] [address] [place] [address], [place] * PHOSPHORUS (11/11/2023 6:09 AM [facility]) Pathologist [facility] Phosphorus 3.5 2.5 - 4.5 mg/dL [facility] Blood 11/11/2023 6:09 AM [facility] [facility] 11/11/2023 6:36 AM [facility] Quinn Covarrubias MD LABORATORY Performing Organization Address City/[facility] Co de Phone Number [facility] [address] [address] * (ABNORMAL) PANEL BASIC METABOLIC (BMP) (11/11/2023 6:09 AM [facility] [facility]) Pathologist [facility] Sodium 143 135 - 148 mEq/L [facility] Potassium 3.3(L) 3.5 - 5.3 mEq/L [facility] Chloride 106 92 - 108 mEq/L [facility] AnGap 8 8 - 16 mEq/L [facility] CO2 29 22 - 30 mEq/L [facility] Glucose 79 70 - 100 mg/dL [facility] BUN 30(H) 8 - 23 mg/dL [facility] Creatinine 0.83 0.50 - 1.00 mg/dL [facility] Calcium 9.0 8.8 - 10.2 mg/dL [facility] eGFR (2020 CKD-EPI) 71 >=60 ml/min/1.7 3m2 [facility] Comment: The estimated glomerular filtration rate (eGFR) was calculated using the CKD-EPI 2020 creatinine equation, which does not include race as a factor. This equation is validated in individuals 18 years of age and older, and eGFR is normalized to a body surface area of 1.73m^2. Blood 11/11/2023 6:09 AM [facility] 11/11/2023 6:36 AM [facility] [facility] Quinn Covarrubias MD LABORATORY Performing Organization Address City/[facility] Co de Phone Number [facility] [address] [address] * MAGNESIUM (11/11/2023 6:09 AM [facility] [facility]) Pathologist [facility] Magnesium 2.2 1.6 - 2.4 mg/dL [facility] Blood 11/11/2023 6:09 AM [facility] [facility] 11/11/2023 6:36 AM [facility] Quinn Covarrubias MD LABORATORY Performing Organization Address [facility] Co de Phone Number [facility] [address] [address] * (ABNORMAL) CBC WITH PLATELET (11/11/2023 6:09 AM [facility]) WBC 5.60 4.00 - 10.00 k/cmm [facility] RBC 3.80(L) 3.90 - 5.20 m/cmm [facility] Hgb 9.5(L) 11.5 - 15.7 g/dL [facility] Hematocrit 31.4(L) 34.0 - 45.0 % [facility] MCV 82.6 80.0 - 100.0 fL [facility] MCH 25.0 25.0 - 32.0 pg [facility] MCHC 30.3(L) 31.0 - 36.0 g/dL [facility] RDW 16.1(H) 11.5 - 14.5 % [facility] Plt 275 150 - 400 k/cmm [facility] MPV 11.8 6.5 - 12.5 fL [facility] Blood 11/11/2023 6:09 AM [facility] 11/11/2023 6:36 AM [facility] [facility] Quinn Covarrubias MD LABORATORY [facility] [address] [place] [address] * POC GLUCOSE (11/10/2023 8:58 PM [facility]) POC Glucose 82 70 - 100 mg/dL [facility] Blood 11/10/2023 8:58 PM [facility] [employer] Devin Dougherty MD LABORATORY Performing Organization Address City/[facility]/ZIP Co de Phone Number [facility] [address] [place] [address], [place] * (ABNORMAL) POC GLUCOSE (11/10/2023 4:16 PM [facility] [facility]) POC Glucose 110(H) 70 - 100 mg/dL [facility] Blood 11/10/2023 4:16 PM [facility] Devin Dougherty MD LABORATORY Performing Organization Address [facility] Co de Phone Number [facility] [address] [place] [phone], [place] * POC GLUCOSE (11/10/2023 11:15 AM [facility]) POC Glucose 93 70 - 100 mg/dL [facility] Blood 11/10/2023 11:1 5 AM [facility] Devin Dougherty MD LABORATORY [facility] [address] [place] [phone], [place] * PHOSPHORUS (11/10/2023 6:17 AM [facility] [facility]) Phosphorus 3.8 2.5 - 4.5 mg/dL [facility] Blood 11/10/2023 6:17 AM [facility] 11/10/2023 6:32 AM [facility] [facility] Quinn Covarrubias MD LABORATORY Performing Organization Address City/[facility] Co de Phone Number [facility] [address] [address] * (ABNORMAL) PANEL BASIC METABOLIC (BMP) (11/10/2023 6:17 AM [facility]) Sodium 145 135 - 148 mEq/L [facility] Potassium 3.6 3.5 - 5.3 mEq/L [facility] Chloride 107 92 - 108 mEq/L [facility] CO2 27 22 - 30 mEq/L [facility] Glucose 109(H) 70 - 100 mg/dL [facility] BUN 40(H) 8 - 23 mg/dL [facility] Creatinine 1.15(H) 0.50 - 1.00 mg/dL [facility] Calcium 9.1 8.8 - 10.2 mg/dL [facility] AnGap 11 8 - 16 mEq/L [facility] eGFR (2020 CKD-EPI) 48(L) >=60 ml/min/1.7 3m2 [facility] Comment: The estimated glomerular filtration rate (eGFR) was calculated using the CKD-EPI 2020 creatinine equation, which does not include race as a factor. This equation is validated in individuals 18 years of age and older, and eGFR is normalized to a body surface area of 1.73m^2. Blood 11/10/2023 6:17 AM [facility] 11/10/2023 6:32 AM [facility] [facility] Quinn Covarrubias MD LABORATORY Performing Organization Address City/[facility]/ZIP Co de Phone Number [facility] [address] [address] * MAGNESIUM (11/10/2023 6:17 AM [facility]) Magnesium 2.3 1.6 - 2.4 mg/dL [facility] Blood 11/10/2023 6:17 AM [facility] 11/10/2023 6:32 AM [facility] Quinn Covarrubias MD LABORATORY Performing Organization Address City/[facility]/ZIP Co de Phone Number [facility] [address] [address] * (ABNORMAL) CBC WITH PLATELET (11/10/2023 6:17 AM [facility] [facility]) Pathologist [facility] WBC 6.82 4.00 - 10.00 k/cmm [facility] RBC 3.64(L) 3.90 - 5.20 m/cmm [facility] Hgb 9.1(L) 11.5 - 15.7 g/dL [facility] Hematocrit 30.3(L) 34.0 - 45.0 % [facility] MCV 83.2 80.0 - 100.0 fL [facility] MCH 25.0 25.0 - 32.0 pg [facility] MCHC 30.0(L) 31.0 - 36.0 g/dL [facility] RDW 16.1(H) 11.5 - 14.5 % [facility] Plt 259 150 - 400 k/cmm [facility] MPV 11.8 6.5 - 12.5 fL [facility] Blood 11/10/2023 6:17 AM [facility] [facility] 11/10/2023 6:32 AM [facility] [facility] Quinn Covarrubias MD LABORATORY Performing Organization Address [facility]/ZIP Co de Phone Number [facility] [address] [address] * (ABNORMAL) POC GLUCOSE (11/09/2023 9:41 PM [facility] [employer]) Pathologist [facility] POC Glucose 136(H) 70 - 100 mg/dL [facility] Blood 11/09/2023 9:41 PM [employer] Devin Dougherty MD LABORATORY [facility] [address] [place] [address], [place] * (ABNORMAL) POC GLUCOSE (11/09/2023 3:58 PM [facility] [facility]) Pathologist [facility] POC Glucose 157(H) 70 - 100 mg/dL [facility] Blood 11/09/2023 3:58 PM [facility] Devin Dougherty MD LABORATORY Performing Organization Address [facility] Co de Phone Number [facility] [address] [place] [phone], [place] * ANTI XA ASSAY LMW HEPARIN (11/09/2023 2:18 PM [facility]) Anti XA LMW 0.32 IU/mL [facility] Comment: Anti Xa Assay LMW Heparin Therapeutic Ranges: 0.4-1.1 IU/mL for twice daily 1.0-2.0 IU/mL for once daily Blood 11/09/2023 2:18 PM [facility] 11/09/2023 2:29 PM [facility] [facility] Quinn Covarrubias MD LABORATORY Performing Organization Address [facility] Co de Phone Number [facility] [address] [address] * (ABNORMAL) POC GLUCOSE (11/09/2023 11:28 AM [facility] [facility]) POC Glucose 174(H) 70 - 100 mg/dL [facility] Blood 11/09/2023 11:2 8 AM [facility] [facility] Devin Dougherty MD LABORATORY Performing Organization Address [facility] Co de Phone Number [facility] [address] [place] [phone], [place] * XR FOOT RIGHT 3 V AP/OBL/LAT* (11/09/2023 10:36 AM [facility]) Anatomical Region Laterality Modality Foot Computed Radiogr aphy 11/09/2023 10:4 7 AM [facility] Impressions 11/09/2023 10:50 AM [facility] Impression: No acute osseous abnormality. Generalized osteopenia. Reading Radiologist: Angela Camp Narrative 11/09/2023 10:50 AM [facility] Technique: XR FOOT RIGHT 3 V AP/OBL/LAT* [...] Generalized osteopenia. Reading Radiologist: Angela Camp Jesusita Aiken SALES OPERATIONS CONSULTANT, [employer] RAD XRAY * POC GLUCOSE (11/09/2023 5:46 AM [facility]) [facility] Signature POC Glucose 97 70 - 100 mg/dL [facility] Blood 11/09/2023 5:46 AM [employer] Devin Dougherty MD LABORATORY Performing Organization Address City/[facility]/ZIP Co de Phone Number [facility] [address] [place] [address] * (ABNORMAL) VALPROATE (DEPAKOTE) LEVEL (11/09/2023 5:41 AM [facility]) Valproate 31.8(L) 50.0 - 100.0 mcg/mL [facility] Blood 11/09/2023 5:41 AM [facility] [facility] 11/09/2023 8:19 AM [employer] [employer] Quinn Covarrubias MD LABORATORY [facility] [place] [address] * PHOSPHORUS (11/09/2023 5:41 AM [facility]) Phosphorus 3.9 2.5 - 4.5 mg/dL [facility] Blood 11/09/2023 5:41 AM [facility] [facility] 11/09/2023 6:38 AM [employer] Quinn Covarrubias MD LABORATORY Performing Organization Address [facility] Co de Phone Number [facility] [address] [address] * (ABNORMAL) PANEL BASIC METABOLIC (BMP) (11/09/2023 5:41 AM [facility]) Sodium 142 135 - 148 mEq/L [facility] Potassium 3.1(L) 3.5 - 5.3 mEq/L [facility] Chloride 105 92 - 108 mEq/L [facility] CO2 30 22 - 30 mEq/L [facility] Glucose 91 70 - 100 mg/dL [facility] BUN 23 8 - 23 mg/dL [facility] Creatinine 1.09(H) 0.50 - 1.00 mg/dL [facility] Calcium 8.8 8.8 - 10.2 mg/dL [facility] AnGap 7(L) 8 - 16 mEq/L [facility] eGFR (2020 CKD-EPI) 51(L) >=60 ml/min/1.7 3m2 [facility] Comment: The estimated glomerular filtration rate (eGFR) was calculated using the CKD-EPI 2020 creatinine equation, which does not include race as a factor. This equation is validated in individuals 18 years of age and older, and eGFR is normalized to a body surface area of 1.73m^2. Blood 11/09/2023 5:41 AM [facility] [facility] 11/09/2023 6:38 AM [employer] [employer] Quinn Covarrubias MD LABORATORY Performing Organization Address [facility] Co de Phone Number [facility] [address] [address] * MAGNESIUM (11/09/2023 5:41 AM [facility]) Magnesium 2.1 1.6 - 2.4 mg/dL [facility] Blood 11/09/2023 5:41 AM [facility] [employer] 11/09/2023 6:38 AM [employer] [employer] Quinn Covarrubias MD LABORATORY Performing Organization Address [facility] Co de Phone Number [facility] [address] [address] * (ABNORMAL) CBC WITH PLATELET (11/09/2023 5:41 AM [facility]) Pathologist [facility] WBC 6.97 4.00 - 10.00 k/cmm [facility] RBC 3.42(L) 3.90 - 5.20 m/cmm [facility] Hgb 8.8(L) 11.5 - 15.7 g/dL [facility] Hematocrit 28.4(L) 34.0 - 45.0 % [facility] MCV 83.0 80.0 - 100.0 fL [facility] MCH 25.7 25.0 - 32.0 pg [facility] MCHC 31.0 31.0 - 36.0 g/dL [facility] RDW 16.0(H) 11.5 - 14.5 % [facility] Plt 227 150 - 400 k/cmm [facility] MPV 12.0 6.5 - 12.5 fL [facility] Blood 11/09/2023 5:41 AM [employer] [employer] 11/09/2023 6:38 AM [employer] Quinn Covarrubias MD LABORATORY [facility] [place] [address] * (ABNORMAL) POC GLUCOSE (11/08/2023 8:40 PM [facility] [employer]) [facility] POC Glucose 125(H) 70 - 100 mg/dL [facility] Blood 11/08/2023 8:40 PM [employer] Devin Dougherty MD LABORATORY [facility] [address] [place] [address], * PHOSPHORUS (11/08/2023 4:20 PM [facility] [employer]) Pathologist [facility] Phosphorus 3.5 2.5 - 4.5 mg/dL [facility] Blood 11/08/2023 4:20 PM [employer] 11/08/2023 4:38 PM [facility] Jesusita K EMILY Aiken APRNNATE RY Performing Organization Address [facility] Co de Phone Number [facility] [address] [place] [phone] * MAGNESIUM (11/08/2023 4:20 PM [facility]) Magnesium 2.0 1.6 - 2.4 mg/dL [facility] Blood 11/08/2023 4:20 PM [employer] 11/08/2023 4:38 PM [facility] Jesusita Wild Nelli CHO EMILY MORENOATO RY Performing Organization Address [facility] de Phone Number [facility] [address] [address] * (ABNORMAL) PANEL BASIC METABOLIC (BMP) (11/08/2023 4:20 PM [facility] [facility]) Sodium 142 135 - 148 mEq/L [facility] Potassium 3.4(L) 3.5 - 5.3 mEq/L [facility] Chloride 105 92 - 108 mEq/L [facility] CO2 28 22 - 30 mEq/L [facility] AnGap 9 8 - 16 mEq/L [facility] Glucose 149(H) 70 - 100 mg/dL [facility] BUN 17 8 - 23 mg/dL [facility] Creatinine 0.82 0.50 - 1.00 mg/dL [facility] Calcium 8.9 8.8 - 10.2 mg/dL [facility] eGFR (2020 CKD-EPI) 72 >=60 ml/min/1.7 3m2 [facility] Comment: The estimated glomerular filtration rate (eGFR) was calculated using the CKD-EPI 2020 creatinine equation, which does not include race as a factor. This equation is validated in individuals 18 years of age and older, and eGFR is normalized to a body surface area of 1.73m^2. Blood 11/08/2023 4:20 PM [facility] [facility] 11/08/2023 4:38 PM [facility] [facility] Jesusita K Nelli CHO CNP JOSHATO RY Performing Organization Address City/[facility]/ZIP Co de Phone Number [facility] [address] [address] * (ABNORMAL) CBC WITH PLATELET (11/08/2023 4:20 PM [employer]) [facility] WBC 8.46 4.00 - 10.00 k/cmm [facility] RBC 3.65(L) 3.90 - 5.20 m/cmm [facility] Hgb 9.1(L) 11.5 - 15.7 g/dL [facility] Hematocrit 30.2(L) 34.0 - 45.0 % [facility] MCV 82.7 80.0 - 100.0 fL [facility] MCH 24.9(L) 25.0 - 32.0 pg [facility] MCHC 30.1(L) 31.0 - 36.0 g/dL [facility] RDW 16.0(H) 11.5 - 14.5 % [facility] Plt 227 150 - 400 k/cmm [facility] MPV 11.7 6.5 - 12.5 fL [facility] Blood 11/08/2023 4:20 PM [employer] 11/08/2023 4:38 PM [facility] [facility] EMILY Martinez APRNSUM[facility] RY Performing Organization Address City/[facility]/ZIP Co de Phone Number [address] [address] * (ABNORMAL) POC GLUCOSE (11/08/2023 3:56 PM [employer] [employer]) [facility] POC Glucose 150(H) 70 - 100 mg/dL [facility] Blood 11/08/2023 3:56 PM [employer] Devin Dougherty MD LABORATORY Performing Organization Address City/[facility]/ZIP Co de Phone Number [facility] [address] [place] [address] * (ABNORMAL) POC GLUCOSE (11/08/2023 11:03 AM [employer]) [facility] POC Glucose 162(H) 70 - 100 mg/dL [facility] Blood 11/08/2023 11:0 3 AM [employer] Devin Dougherty MD LABORATORY [facility] [address] [place] [address], [place] * XR CHEST 1 VIEW AP OR PA* (11/08/2023 6:30 AM [facility]) Anatomical Region Laterality Modality Chest Computed Radiogr aphy 11/08/2023 6:56 AM [facility] [facility] Impressions 11/08/2023 7:24 AM [facility] Impression: Stable chest. I have personally reviewed the image(s) and initial interpretation, and I agree with the findings as documented by the resident/fellow. Reading Radiologist: Ronal Hidlago Reading Resident: Laith Berkowitz Narrative 11/08/2023 7:24 AM [facility] Technique: XR CHEST 1 VIEW AP OR [...] Berkowitz Quinn Covarrubias MD RAD XRAY * (ABNORMAL) POC GLUCOSE (11/08/2023 6:22 AM [facility] [facility]) POC Glucose 126(H) 70 - 100 mg/dL [facility] Blood 11/08/2023 6:22 AM [employer] Devin Dougherty MD LABORATORY [facility] [address] [place] [address], [place] * (ABNORMAL) POC GLUCOSE (11/07/2023 9:34 PM [facility]) POC Glucose 109(H) 70 - 100 mg/dL [facility] - POINT OF CARE Blood 11/07/2023 9:34 PM [facility] Devin Dougherty MD LABORATORY Performing Organization Address City/[facility]/ZIP Co de Phone Number [facility] POINT OF CARE [address] [place] [address], [place] * (ABNORMAL) POC GLUCOSE (11/07/2023 4:06 PM [facility]) POC Glucose 160(H) 70 - 100 mg/dL [facility] POINT OF [facility] Blood 11/07/2023 4:06 PM [facility] Devin Dougherty MD LABORATORY Performing Organization Address [facility] Co de Phone Number [facility] [address] [place] [address], [place] * (ABNORMAL) POC GLUCOSE (11/07/2023 11:45 AM [facility]) POC Glucose 107(H) 70 - 100 mg/dL [facility] POINT OF [facility] Blood 11/07/2023 11:4 5 AM [facility] Devin Dougherty MD LABORATORY Performing Organization Address City/[facility] Co de Phone Number [facility] POINT OF CARE [address] [place] [address], [place] * XR CHEST 2 VIEWS PA + LAT* (11/07/2023 10:07 AM [facility]) Anatomical Region Laterality Modality Chest Computed Radiogr aphy 11/07/2023 10:0 9 AM [facility] Impressions 11/07/2023 10:10 AM [facility] Impression: New left basilar opacities with small effusion concerning for developing infection. Reading Radiologist: Phil Contreras Narrative 11/07/2023 10:10 AM [facility] Technique: XR CHEST 2 VIEWS PA + [...] RAD XRAY * PROCALCITONIN (11/07/2023 8:34 AM [facility]) Procalcitonin 0.12 ng/mL [facility] Comment: Results <0.50 ng/mL represent a low risk of severe sepsis and/or septic shock. Results >2.0 ng/mL represent a high risk of severe sepsis and/or septic shock. Blood 11/07/2023 8:34 AM [facility] [facility] 11/07/2023 8:40 AM [facility] Quinn Covarrubias MD LABORATORY [facility] [address] [address] * (ABNORMAL) CBC WITH PLATELET (11/07/2023 8:34 AM [employer] [employer]) WBC 7.45 4.00 - 10.00 k/cmm [facility] RBC 3.49(L) 3.90 - 5.20 m/cmm [facility] Hgb 8.8(L) 11.5 - 15.7 g/dL [facility] Hematocrit 29.0(L) 34.0 - 45.0 % [facility] MCV 83.1 80.0 - 100.0 fL [facility] MCH 25.2 25.0 - 32.0 pg [facility] MCHC 30.3(L) 31.0 - 36.0 g/dL [facility] RDW 15.9(H) 11.5 - 14.5 % [facility] Plt 249 150 - 400 k/cmm [facility] MPV 11.0 6.5 - 12.5 fL [facility] Blood 11/07/2023 8:34 AM [facility] 11/07/2023 8:40 AM [employer] Quinn Covarrubias MD LABORATORY Performing Organization Address [facility] Co de Phone Number [facility] [address] [address] * (ABNORMAL) PANEL BASIC METABOLIC (BMP) (11/07/2023 8:34 AM [facility] [employer]) Sodium 145 135 - 148 mEq/L [facility] Potassium 3.5 3.5 - 5.3 mEq/L [facility] Chloride 111(H) 92 - 108 mEq/L [facility] CO2 26 22 - 30 mEq/L [facility] AnGap 8 8 - 16 mEq/L [facility] Glucose 108(H) 70 - 100 mg/dL [facility] BUN 15 8 - 23 mg/dL [facility] Creatinine 0.90 0.50 - 1.00 mg/dL [facility] Calcium 8.8 8.8 - 10.2 mg/dL [facility] eGFR (2020 CKD-EPI) 64 >=60 ml/min/1.7 3m2 [facility] Comment: The estimated glomerular filtration rate (eGFR) was calculated using the CKD-EPI 2020 creatinine equation, which does not include race as a factor. This equation is validated in individuals 18 years of age and older, and eGFR is normalized to a body surface area of 1.73m^2. Blood 11/07/2023 8:34 AM [facility] [employer] 11/07/2023 8:40 AM [employer] Quinn Covarrubias MD LABORATORY Performing Organization Address City/[facility]/ZIP Co de Phone Number [facility] [address] [address] * MAGNESIUM (11/07/2023 8:34 AM [employer]) Magnesium 2.3 1.6 - 2.4 mg/dL [facility] Blood 11/07/2023 8:34 AM [employer] 11/07/2023 8:40 AM [employer] Quinn Covarrubisa MD LABORATORY Performing Organization Address City/[facility] [place] [address] * (ABNORMAL) PHOSPHORUS (11/07/2023 8:34 AM [employer]) Phosphorus 5.0(H) 2.5 - 4.5 mg/dL [facility] Blood 11/07/2023 8:34 AM [facility] 11/07/2023 8:40 AM [employer] Quinn Covarrubias MD LABORATORY Performing Organization Address [facility] [place] [address] * (ABNORMAL) POC GLUCOSE (11/07/2023 5:45 AM [employer]) POC Glucose 115(H) 70 - 100 mg/dL [facility] Blood 11/07/2023 5:45 AM [employer] Devin Dougherty MD LABORATORY Performing Organization Address City/[facility] Co de Phone Number [facility] [address] [place] [address] * (ABNORMAL) POC GLUCOSE (11/06/2023 9:21 PM [employer]) POC Glucose 149(H) 70 - 100 mg/dL [facility] Blood 11/06/2023 9:21 PM [employer] Devin Dougherty MD LABORATORY Performing Organization Address City/[facility] Co de Phone Number [facility] [place] [address], [place] * (ABNORMAL) BLOOD GASES (11/06/2023 1:06 PM [employer]) PH Jalen 7.36 7.32 - 7.42 [facility] PCO2 Jalen 48 41 - 51 mmHG [facility] PO2 Jalen 86(H) 25 - 40 mmHG [facility] Bicarb Jalen 26 24 - 28 mEq/L [facility] O2 Sat Jalen 96 % [facility] Base Exc Jalen 1.0 -10.0 - 2.0 mEq/L [facility] Blood Venous 11/06/2023 1:06 PM [facility] [employer] 11/06/2023 1:10 PM [employer] Narrative [facility] - 11/06/2023 1:16 PM [employer] Draw on Room Air: No O2 LPM (liter/min) Level->4 via mask FiO2 Level: 100 Quinn Covarrubias MD LABORATORY Performing Organization Address City/[facility]/ZIP Co de Phone Number [address] [address] * MAGNESIUM (11/06/2023 1:06 PM [employer]) Magnesium 2.4 1.6 - 2.4 mg/dL [facility] Blood 11/06/2023 1:06 PM [employer] 11/06/2023 1:22 PM [employer] Quinn Covarrubias MD LABORATORY Performing Organization Address City/[facility]/ZIP Co de Phone Number [address] [address] * PHOSPHORUS (11/06/2023 1:06 PM [employer]) Phosphorus 4.2 2.5 - 4.5 mg/dL [facility] Blood 11/06/2023 1:06 PM [employer] 11/06/2023 1:22 PM [employer] Quinn Covarrubias MD LABORATORY Performing Organization Address City/[facility]/ZIP Co de Phone Number [address] [address] * (ABNORMAL) PANEL BASIC METABOLIC (BMP) (11/06/2023 1:06 PM [employer]) Sodium 141 135 - 148 mEq/L [facility] Potassium 3.8 3.5 - 5.3 mEq/L [facility] Chloride 108 92 - 108 mEq/L [facility] CO2 27 22 - 30 mEq/L [facility] AnGap 6(L) 8 - 16 mEq/L [facility] Glucose 184(H) 70 - 100 mg/dL [facility] BUN 15 8 - 23 mg/dL [facility] Creatinine 0.91 0.50 - 1.00 mg/dL [facility] Calcium 8.7(L) 8.8 - 10.2 mg/dL [facility] eGFR (2020 CKD-EPI) 63 >=60 ml/min/1.7 3m2 [facility] Comment: The estimated glomerular filtration rate (eGFR) was calculated using the CKD-EPI 2020 creatinine equation, which does not include race as a factor. This equation is validated in individuals 18 years of age and older, and eGFR is normalized to a body surface area of 1.73m^2. Blood 11/06/2023 1:06 PM [facility] 11/06/2023 1:22 PM [employer] Quinn Covarrubias MD LABORATORY [facility] [address] [address] * (ABNORMAL) CBC WITH PLATELET (11/06/2023 1:06 PM [employer]) WBC 10.82(H) 4.00 - 10.00 k/cmm [facility] RBC 3.58(L) 3.90 - 5.20 m/cmm [facility] Hgb 9.1(L) 11.5 - 15.7 g/dL [facility] Hematocrit 29.6(L) 34.0 - 45.0 % [facility] MCV 82.7 80.0 - 100.0 fL [facility] MCH 25.4 25.0 - 32.0 pg [facility] MCHC 30.7(L) 31.0 - 36.0 g/dL [facility] RDW 15.8(H) 11.5 - 14.5 % [facility] Plt 253 150 - 400 k/cmm [facility] MPV 11.3 6.5 - 12.5 fL [facility] Blood 11/06/2023 1:06 PM [employer] 11/06/2023 1:21 PM [employer] Quinn Covarrubias MD LABORATORY Performing Organization Address [facility] Co de Phone Number [facility] [place] [address] * (ABNORMAL) POC GLUCOSE (11/06/2023 1:04 PM [employer]) POC Glucose 173(H) 70 - 100 mg/dL [facility] Blood 11/06/2023 1:04 PM [employer] Devin Dougherty MD LABORATORY Performing Organization Address [facility] Co de Phone Number [facility] [place] [address], * (ABNORMAL) POC GLUCOSE (11/06/2023 10:49 AM [employer]) POC Glucose 257(H) 70 - 100 mg/dL [facility] Blood 11/06/2023 10:4 9 AM [employer] Devin Dougherty MD LABORATORY Performing Organization Address [facility] de Phone Number [facility] [address] * (ABNORMAL) GLYCOSYLATED HGB - A1C (11/06/2023 6:31 AM [employer]) Hemoglobin A1C 8.1(H) 4.0 - 5.6 % [facility] Comment: Increased risk for diabetes (prediabetes): 5.7-6.4% Diabetes: greater than or equal to 6.5% * * In the absence of unequivocal hyperglycemia, diagnosis requires two abnormal test results (i.e. HbA1c and glucose) or two abnormal results from specimens collected at two different timepoints. Estimated Average Glucose 186(H) 68 - 114 [facility] Comment: The ADA recommends reporting an estimated Average Glucose (eAG) with all hemoglobin A1c results using the equation derived from a study of 501 normal diabetic adults. Minority populations were underrepresented and children were not included. The EAG is not equivalent to a fasting glucose. Blood 11/06/2023 6:31 AM [employer] 11/06/2023 11:28 AM [employer] Quinn Covarrubias MD LABORATORY Performing Organization Address [facility] Co de Phone Number [facility] [address] [address] * ICU PHOSPHORUS (11/06/2023 6:31 AM [employer]) Phosphorus 4.1 2.5 - 4.5 mg/dL [facility] Blood 11/06/2023 6:31 AM [employer] 11/06/2023 7:37 AM [employer] Devin Dougherty MD LABORATORY Performing Organization Address [facility] de Phone Number [facility] [address] [address] * (ABNORMAL) ICU MAGNESIUM (11/06/2023 6:31 AM [employer]) Magnesium 2.5(H) 1.6 - 2.4 mg/dL [facility] Blood 11/06/2023 6:31 AM [employer] 11/06/2023 7:37 AM [employer] Devin Dougherty MD LABORATORY Performing Organization Address [facility] de Phone Number [facility] [address] [address] * (ABNORMAL) ICU CBC WITH PLATELET (11/06/2023 6:31 AM [employer]) WBC 9.06 4.00 - 10.00 k/cmm [facility] RBC 3.77(L) 3.90 - 5.20 m/cmm [facility] Hgb 9.6(L) 11.5 - 15.7 g/dL [facility] Hematocrit 30.8(L) 34.0 - 45.0 % [facility] MCV 81.7 80.0 - 100.0 fL [facility] MCH 25.5 25.0 - 32.0 pg [facility] MCHC 31.2 31.0 - 36.0 g/dL [facility] RDW 15.9(H) 11.5 - 14.5 % [facility] Plt 284 150 - 400 k/cmm [facility] MPV 12.1 6.5 - 12.5 fL [facility] Blood 11/06/2023 6:31 AM [employer] 11/06/2023 7:37 AM [employer] Devin Dougherty MD LABORATORY Performing Organization Address City/State/[facility] Co de Phone Number [facility] [address] [address] * (ABNORMAL) ICU PANEL BASIC METABOLIC (BMP) (11/06/2023 6:31 AM [employer]) Sodium 142 135 - 148 mEq/L [facility] Potassium 3.7 3.5 - 5.3 mEq/L [facility] Chloride 107 92 - 108 mEq/L [facility] CO2 26 22 - 30 mEq/L [facility] AnGap 9 8 - 16 mEq/L [facility] Glucose 148(H) 70 - 100 mg/dL [facility] BUN 12 8 - 23 mg/dL [facility] Creatinine 0.77 0.50 - 1.00 mg/dL [facility] Calcium 8.7(L) 8.8 - 10.2 mg/dL [facility] eGFR (2020 CKD-EPI) 77 >=60 ml/min/1.7 3m2 [facility] Comment: The estimated glomerular filtration rate (eGFR) was calculated using the CKD-EPI 2020 creatinine equation, which does not include race as a factor. This equation is validated in individuals 18 years of age and older, and eGFR is normalized to a body surface area of 1.73m^2. Blood 11/06/2023 6:31 AM [employer] 11/06/2023 7:37 AM [employer] Devin Dougherty MD LABORATORY Performing Organization Address City/State/[facility] Co de Phone Number [facility] [address] [address] * PROTHROMBIN (PT) & INR (11/06/2023 6:31 AM [employer]) Pathologist [facility] PT 11.4 9.0 - 12.5 sec [facility] INR 1.0 0.8 - 1.1 [facility] Comment: Warfarin Therapeutic Range: Standard Intensity: 2.0 - 3.0 High Intensity: 2.5 - 3.5 Blood 11/06/2023 6:31 AM [employer] 11/06/2023 7:37 AM [employer] Quinn Covarrubias MD LABORATORY Performing Organization Address [facility] Co de Phone Number [address] [address] * (ABNORMAL) POC GLUCOSE (11/06/2023 5:39 AM [employer]) Pathologist [facility] POC Glucose 149(H) 70 - 100 mg/dL [facility] Blood 11/06/2023 5:39 AM [employer] Devin Dougherty MD LABORATORY Performing Organization Address [facility] Co de Phone Number [facility] [address] [address], * (ABNORMAL) POC GLUCOSE (11/05/2023 4:54 PM [employer]) Pathologist [facility] POC Glucose 170(H) 70 - 100 mg/dL [facility] Blood 11/05/2023 4:54 PM [employer] Devin Dougherty MD LABORATORY Performing Organization Address City/[facility] Co de Phone Number [facility] [address] [address], * (ABNORMAL) MAGNESIUM (11/05/2023 4:48 PM [employer]) Magnesium 2.8(H) 1.6 - 2.4 mg/dL [facility] Blood 11/05/2023 4:48 PM [employer] 11/05/2023 4:58 PM [employer] Quinn Covarrubias MD LABORATORY [facility] [address] [address] * (ABNORMAL) POTASSIUM (11/05/2023 4:48 PM [employer]) Potassium 3.2(L) 3.5 - 5.3 mEq/L [facility] Blood 11/05/2023 4:48 PM [employer] 11/05/2023 4:58 PM [employer] Quinn Covarrubias MD LABORATORY Performing Organization Address [facility] Co de Phone Number [facility] [address] [address] * CT HEAD NO IV CONTRAST (11/05/2023 11:44 AM [employer]) Anatomical Region Laterality Modality Skull Computed Tomogra phy 11/05/2023 12:1 6 PM [employer] Impressions 11/05/2023 12:38 PM [employer] Impression: Stable head CT as compared to the study performed 7 hours earlier. Intra-axial and extra-axial hemorrhage(s) without midline shift or hydrocephalus. The basal cisterns are patent. Reading Radiologist: Ford Fernández 11/05/2023 12:38 PM [employer] Exam: Head CT without contrast, 11/05/2023 Indication: [...] Quinn Covarrubias MD RAD CT NEURO * (ABNORMAL) POC GLUCOSE (11/05/2023 11:11 AM [employer]) POC Glucose 201(H) 70 - 100 mg/dL [facility] Blood 11/05/2023 11:1 1 AM [employer] Devin Dougherty MD LABORATORY Performing Organization Address City/[facility]/ZIP Co de Phone Number [facility] [address] [place] [address], * EKG ADULT (12-LEAD) (11/05/2023 6:38 AM [employer]) 11/05/2023 6:38 AM [employer] Impressions [facility] CVIS EKG ORDERS - 11/05/2023 6:38 AM [employer] SINUS RHYTHM RIGHT BUNDLE BRANCH BLOCK ??[120+ ms QRS DURATION, UPRIGHT V1, 40+ ms S IN I/aVL/V4/V5/V6] ABNORMAL ECG P-R Interval 151 ms QRS Interval 128 ms QT Interval 420 ms QTC Interval 462 ms P [place] 9 QRS [place] 27 T Wave [place] 70 Narrative Procedure Note Lauren Mills MD - 11/06/2023 IMPRESSION SINUS RHYTHM RIGHT BUNDLE BRANCH BLOCK [120+ ms QRS DURATION, UPRIGHT V1, 40+ ms S INI/aVL/V4/V5/V6] ABNORMAL ECG P-R Interval 151 ms QRS Interval 128 ms QT Interval 420 ms QTC Interval 462 ms P [place] 9 QRS [place] 27 T Wave [place] 70 Quinn Covarrubias MD EKG Performing Organization Address City/[facility]/ZIP Co de Phone Number [facility] EKG ORDERS * (ABNORMAL) POC GLUCOSE (11/05/2023 6:07 AM [employer]) POC Glucose 188(H) 70 - 100 mg/dL [facility] Blood 11/05/2023 6:07 AM [employer] Devin Dougherty MD LABORATORY [facility] [place] [address], [place] * CT HEAD NO IV CONTRAST (11/05/2023 4:54 AM [employer]) Anatomical Region Laterality Modality Skull Computed Tomogra phy 11/05/2023 4:56 AM [employer] Impressions 11/05/2023 11:09 AM [employer] Impression: 1. Stable to perhaps minimally increased size of subdural hemorrhage along the falx and tentorial leaflets when compared to the head CT from approximately 6 hours earlier. Stable subdural hemorrhage along the right cerebral convexity. 2. Several new areas of subarachnoid hemorrhage. 3. Stable left periventricular hemorrhagic about the caudate nucleus and small intraparenchymal hemorrhage in the left frontal white matter. I have personally reviewed the image(s) and initial interpretation, and I agree with the findings as documented by the resident/fellow. Reading Radiologist: Ford Fernández Reading Resident: Laith Berkowitz 11/05/2023 11:09 AM [employer] Exam: Head CT without contrast, 11/05/2023 Indication: Evaluate intracranial hemorrhage. Comparison: Head CT from 11/04/2023 (approximately 6 hours earlier) and head and neck CT angiogram from approximately 5 hours earlier. Technique: Thin-section CT images through the brain were obtained from the base of the skull through the vertex without intravenous contrast, reconstructed in axial, coronal, and sagittal planes, and reviewed in brain, bone and subdural windows. Radiation dose: Total DLP = 925.4 mGy*cm. ?? Findings: Residual contrast within the cerebral vasculature. Mildly increased conspicuity of subdural hemorrhages along the posterior falx and tentorial leaflets. Stable subdural hemorrhage along the right cerebral convexity measuring up to 5 mm. Stable left periventricular hemorrhage measuring up to 10 mm. Scattered subarachnoid hemorrhage, with a few new foci; the subarachnoid hemorrhage is most notable about the right occipital lobe, mid to posterior hemispheric fissure, and right ambient cistern. The ventricles and sulci are proportional and have not substantially changed in caliber. No acute appearing loss of the díaz-white matter differentiation. No shift of midline. There are a few patchy foci of hypoattenuation in the periventricular-predominant cerebral white matter, suggestive of mild leukokraurosis. The bones of the calvaria and skull base are intact. No significant mucosal thickening of the visualized paranasal sinuses. Mastoid air cells are clear. Bilateral pseudophakia. Calcific atherosclerosis of the carotid siphons and intradural vertebral arteries. Procedure Note Ford Fernández DO - 11/05/2023 Exam: Head CT without contrast, 11/05/2023 Indication: Evaluate intracranial hemorrhage. Comparison: Head CT from 11/04/2023 (approximately 6 hours earlier) and headand neck CT angiogram from approximately 5 hours earlier. Technique: Thin-section CT images through the brain were obtained from thebase of the skull through the vertex without intravenous contrast,reconstructed in axial, coronal, and sagittal planes, and reviewed inbrain, bone and subdural windows. Radiation dose: Total DLP = 925.4 mGy*cm. Findings: Residual contrast within the cerebral vasculature. Mildlyincreased conspicuity of subdural hemorrhages along the posterior falx andtentorial leaflets. Stable subdural hemorrhage along the right cerebralconvexity measuring up to 5 mm. Stable left periventricular hemorrhagemeasuring up to 10 mm. Scattered subarachnoid hemorrhage, with a few newfoci; the subarachnoid hemorrhage is most notable about the rightoccipital lobe, mid to posterior hemispheric fissure, and right ambientcistern. The ventricles and sulci are proportional and have not substantiallychanged in caliber. No acute appearing loss of the díaz-white matterdifferentiation. No shift of midline. There are a few patchy foci ofhypoattenuation in the periventricular-predominant cerebral white matter,suggestive of mild leukokraurosis. The bones of the calvaria and skull base are intact. No significantmucosal thickening of the visualized paranasal sinuses. Mastoid air cellsare clear. Bilateral pseudophakia. Calcific atherosclerosis of the carotidsiphons and intradural vertebral arteries. IMPRESSION Impression: 1. Stable to perhaps minimally increased size of subdural hemorrhage alongthe falx and tentorial leaflets when compared to the head CT fromapproximately 6 hours earlier. Stable subdural hemorrhage along the rightcerebral convexity. 2. Several new areas of subarachnoid hemorrhage. 3. Stable left periventricular hemorrhagic about the caudate nucleus andsmall intraparenchymal hemorrhage in the left frontal white matter. I have personally reviewed the image(s) and initial interpretation, and Iagree with the findings as documented by the resident/fellow. Reading Radiologist: Ford Fernández Reading Resident: Laith Berkowitz Quinn Covarrubias MD RAD CT NEURO * PROTHROMBIN (PT) & INR (11/05/2023 4:27 AM [employer]) PT 12.3 9.0 - 12.5 sec [facility] INR 1.1 0.8 - 1.1 [facility] Comment: This sample may have abnormal results due to the presence of lipemia. Warfarin Therapeutic Range: Standard Intensity: 2.0 - 3.0 High Intensity: 2.5 - 3.5 Blood 11/05/2023 4:27 AM [employer] 11/05/2023 4:35 AM [employer] Quinn Covarrubias MD LABORATORY Performing Organization Address City/[facility]/ZIP Co de Phone Number [facility] [place] [phone] * ICU PHOSPHORUS (11/05/2023 4:27 AM [employer]) Phosphorus 3.5 2.5 - 4.5 mg/dL [facility] Blood 11/05/2023 4:27 AM [employer] 11/05/2023 4:36 AM [employer] Devin Dougherty MD LABORATORY Performing Organization Address City/[facility]/ZIP Co de Phone Number [facility] [address] [address] * (ABNORMAL) ICU MAGNESIUM (11/05/2023 4:27 AM [employer]) Magnesium 1.5(L) 1.6 - 2.4 mg/dL [facility] Blood 11/05/2023 4:27 AM [employer] 11/05/2023 4:36 AM [employer] Devin Dougherty MD LABORATORY [facility] [address] [address] * (ABNORMAL) ICU BLOOD GAS (11/05/2023 4:27 AM [employer]) PH Art 7.38 7.35 - 7.45 [facility] PCO2 Art 42 35 - 45 mmHG [facility] PO2 Art 99(H) 75 - 85 mmHG [facility] Bicarb Art 25 22 - 26 mEq/L [facility] O2 Sat Art 98 96 - 99 % [facility] Base Exc Art 0.0 -10.0 - 2.0 mEq/L [facility] Blood Arterial 11/05/2023 4: 27 AM [employer] 11/05/2023 4:34 AM [employer] Devin Dougherty MD LABORATORY Performing Organization Address City/[facility] Co de Phone Number [facility] [address] [address] * (ABNORMAL) ICU CBC WITH PLATELET (11/05/2023 4:27 AM [facility]) WBC 13.69(H) 4.00 - 10.00 k/cmm [facility] RBC 3.49(L) 3.90 - 5.20 m/cmm [facility] Hgb 9.8(L) 11.5 - 15.7 g/dL [facility] Hematocrit 28.2(L) 34.0 - 45.0 % [facility] MCV 80.8 80.0 - 100.0 fL [facility] MCH 28.1 25.0 - 32.0 pg [facility] MCHC 34.8 31.0 - 36.0 g/dL [facility] RDW 15.4(H) 11.5 - 14.5 % [facility] Plt 330 150 - 400 k/cmm [facility] MPV 10.9 6.5 - 12.5 fL [facility] Blood 11/05/2023 4:27 AM [facility] 11/05/2023 4:35 AM [employer] Devin Dougherty MD LABORATORY [facility] [address] [address] * (ABNORMAL) ICU PANEL BASIC METABOLIC (BMP) (11/05/2023 4:27 AM [facility]) Sodium 138 135 - 148 mEq/L [facility] Potassium 3.2(L) 3.5 - 5.3 mEq/L [facility] Chloride 102 92 - 108 mEq/L [facility] CO2 24 22 - 30 mEq/L [facility] AnGap 12 8 - 16 mEq/L [facility] Glucose 200(H) 70 - 100 mg/dL [facility] BUN 16 8 - 23 mg/dL [facility] Creatinine 0.80 0.50 - 1.00 mg/dL [facility] Calcium 8.7(L) 8.8 - 10.2 mg/dL [facility] eGFR (2020 CKD-EPI) 74 >=60 ml/min/1.7 3m2 [facility] Comment: The estimated glomerular filtration rate (eGFR) was calculated using the CKD-EPI 2020 creatinine equation, which does not include race as a factor. This equation is validated in individuals 18 years of age and older, and eGFR is normalized to a body surface area of 1.73m^2. Blood 11/05/2023 4:27 AM [employer] 11/05/2023 4:36 AM [employer] Devin Dougherty MD LABORATORY Performing Organization Address City/[facility]/ZIP Co de Phone Number [facility] [address] [address] * (ABNORMAL) TROP 6H (11/05/2023 4:27 AM [employer]) 6H Trop 51(H) <=14 ng/L [facility] 6H Delta Significan t(A) Not Significant [facility] Blood 11/05/2023 4:27 AM [employer] 11/05/2023 4:35 AM [employer] Devin Dougherty MD LABORATORY Performing Organization Address [facility]/ZIP Co de Phone Number [facility] [address] [address] * (ABNORMAL) TROP 4H (11/05/2023 2:58 AM [employer]) 4H Trop 39(H) <=14 ng/L [facility] 4H Delta Significan t(A) Not Significant [facility] Blood 11/05/2023 2:58 AM [employer] 11/05/2023 3:48 AM [employer] Devin Dougherty MD LABORATORY Performing Organization Address City/[facility] Co de Phone Number [facility] [place] [phone] * CK, TOTAL (11/05/2023 1:32 AM [employer]) CK 56 26 - 192 IU/L [facility] Blood 11/05/2023 1:32 AM [employer] 11/05/2023 1:32 AM [employer] Devin Dougherty MD LABORATORY Performing Organization Address City/[facility] Co de Phone Number [place] [phone] * FIBRINOGEN (11/05/2023 1:32 AM [employer]) Fibrinogen 262 200 - 400 mg/dL [facility] Blood 11/05/2023 1:32 AM [employer] 11/05/2023 1:32 AM [employer] Devin Dougehrty MD LABORATORY Performing Organization Address City/[facility] Co de Phone Number [facility] [address] [address] * PTT (APTT) (11/05/2023 1:32 AM [employer]) APTT 26.0 25.0 - 37.0 sec [facility] Blood 11/05/2023 1:32 AM [employer] 11/05/2023 1:32 AM [employer] Devin Dougherty MD LABORATORY Performing Organization Address City/[facility] Co de Phone Number [facility] [address] [address] * (ABNORMAL) PANEL HEPATIC FUNCTION (11/05/2023 1:32 AM [employer]) Pathologist [facility] Alk Phos 111(H) 35 - 104 IU/L [facility] Total Protein 6.5 6.4 - 8.3 g/dL [facility] Bili Direct na <=0.3 mg/dL [facility] Comment:Direct Bilirubin = < 0.2. Accuracy of result suspect due to lipemia. Albumin 3.8 3.8 - 5.1 g/dL [facility] Bili Total <0.2 <=1.2 mg/dL [facility] ALT (SGPT) na <=33 [facility] Comment:ALT = 15. Accuracy o f result suspect due to lipemia. AST(SGOT) na 5 - 40 [facility] Comment:AST = 27. Accuracy o f result suspect due to lipemia. Blood 11/05/2023 1:32 AM [employer] 11/05/2023 1:32 AM [employer] Devin Dougherty MD LABORATORY [facility] [address] [address] * (ABNORMAL) CBC WITH PLATELET (11/05/2023 1:32 AM [employer]) Pathologist [facility] WBC 14.77(H) 4.00 - 10.00 k/cmm [facility] RBC 3.70(L) 3.90 - 5.20 m/cmm [facility] Hgb 9.9(L) 11.5 - 15.7 g/dL [facility] Hematocrit 30.0(L) 34.0 - 45.0 % [facility] MCV 81.1 80.0 - 100.0 fL [facility] MCH 26.8 25.0 - 32.0 pg [facility] MCHC 33.0 31.0 - 36.0 g/dL [facility] RDW 15.4(H) 11.5 - 14.5 % [facility] Plt 324 150 - 400 k/cmm [facility] MPV 11.0 6.5 - 12.5 fL [facility] Blood 11/05/2023 1:32 AM [employer] 11/05/2023 1:32 AM [employer] Devin Dougherty MD LABORATORY Performing Organization Address [facility] Co de Phone Number [facility] [address] [address] * (ABNORMAL) PANEL BASIC METABOLIC (BMP) (11/05/2023 1:32 AM [employer]) Potassium 3.1(L) 3.5 - 5.3 mEq/L [facility] Sodium 138 135 - 148 mEq/L [facility] CO2 25 22 - 30 mEq/L [facility] Glucose 242(H) 70 - 100 mg/dL [facility] BUN 16 8 - 23 mg/dL [facility] Creatinine 0.76 0.50 - 1.00 mg/dL [facility] Chloride 101 92 - 108 mEq/L [facility] eGFR (2020 CKD-EPI) 79 >=60 ml/min/1.7 3m2 [facility] Comment: The estimated glomerular filtration rate (eGFR) was calculated using the CKD-EPI 2020 creatinine equation, which does not include race as a factor. This equation is validated in individuals 18 years of age and older, and eGFR is normalized to a body surface area of 1.73m^2. AnGap 12 8 - 16 mEq/L [facility] Calcium 8.8 8.8 - 10.2 mg/dL [facility] Blood 11/05/2023 1:32 AM [employer] 11/05/2023 1:32 AM [employer] Devin Dougherty MD LABORATORY Performing Organization Address [facility] Co de Phone Number [facility] [address] [address] * (ABNORMAL) MAGNESIUM (11/05/2023 1:32 AM [employer]) Magnesium 1.5(L) 1.6 - 2.4 mg/dL [facility] Blood 11/05/2023 1:32 AM [employer] 11/05/2023 1:32 AM [employer] Devin Dougherty MD LABORATORY Performing Organization Address [facility] Co de Phone Number [facility] [address] [address] * PHOSPHORUS (11/05/2023 1:32 AM [employer]) Phosphorus 3.4 2.5 - 4.5 mg/dL [facility] Blood 11/05/2023 1:32 AM [employer] 11/05/2023 1:32 AM [employer] Devin Dougherty MD LABORATORY Performing Organization Address [facility] Co de Phone Number [facility] [address] [address] * PROTHROMBIN (PT) & INR (11/05/2023 1:32 AM [employer]) PT 11.8 9.0 - 12.5 sec [facility] INR 1.0 0.8 - 1.1 [facility] Comment: Warfarin Therapeutic Range: Standard Intensity: 2.0 - 3.0 High Intensity: 2.5 - 3.5 Blood 11/05/2023 1:32 AM [employer] 11/05/2023 1:32 AM [employer] Devin Dougherty MD LABORATORY Performing Organization Address [facility] Co de Phone Number [facility] [address] [address] * CALCIUM,IONIZED (11/05/2023 1:18 AM [employer]) PH 7.37 7.32 - 7.42 [facility] ICA, Actual 4.82 4.40 - 5.20 mg/dL [facility] ICA, pH Corrected 4.75 4.40 - 5.20 mg/dL [facility] Blood 11/05/2023 1:18 AM [employer] 11/05/2023 1:27 AM [employer] Narrative [facility] - 11/05/2023 1:44 AM [employer] Send specimen on ice! Devni Dougherty MD LABORATORY Performing Organization Address [facility] Co de Phone Number [facility] [address] [address] * LACTATE (LACTIC ACID) (11/05/2023 1:18 AM [employer]) Lactate 1.9 0.7 - 2.1 mmol/L [facility] Blood 11/05/2023 1:18 AM [employer] 11/05/2023 1:27 AM [employer] Narrative [facility] - 11/05/2023 1:45 AM [employer] Send specimen on ice! Devin Dougherty MD LABORATORY Performing Organization Address [facility] Co de Phone Number [facility] [address] [address] * BLOOD GASES (11/05/2023 1:18 AM [employer]) PH Art 7.37 7.35 - 7.45 [facility] PCO2 Art 43 35 - 45 mmHG [facility] PO2 Art 83 75 - 85 mmHG [facility] Bicarb Art 25 22 - 26 mEq/L [facility] O2 Sat Art 96 96 - 99 % [facility] Base Exc Art -0.3 -10.0 - 2.0 mEq/L [facility] Blood Arterial 11/05/2023 1: 18 AM [employer] 11/05/2023 1:27 AM [employer] Devin Dougherty MD LABORATORY Performing Organization Address [facility] Co de Phone Number [facility] [address] [address] * (ABNORMAL) TROP 2H (11/05/2023 1:18 AM [employer]) 2H Trop 18(H) <=14 ng/L [facility] 2H Delta Indeterminate Not Significant [facility] Blood 11/05/2023 1:18 AM [employer] 11/05/2023 1:45 AM [employer] Devin Dougherty MD LABORATORY Performing Organization Address [facility]/ZIP Co de Phone Number [facility] [address] [address] * CT HEAD-NECK - ANGIO - W/IV CON (11/05/2023 12:09 AM [employer]) Anatomical Region Laterality Modality Skull Computed Tomogra phy 11/05/2023 12:2 1 AM [employer] Impressions 11/05/2023 10:22 AM [employer] Impression: ?? Slightly increased size of the [...] Fernández Resident: Laith Berkowitz 11/05/2023 10:[address] [address] [address] angiogram of the Head with contrast, [...] and reviewed by the Radiologist using the [employer] workstation, and these images were archived in [...] and reviewed by the Radiologist using the [employer] workstation,and these images were archived in the [...] NEURO * (ABNORMAL) URINALYSIS,TOTAL (11/04/2023 11:55 PM [employer]) Color COLORLESS YELLOW [facility] Appearance CLEAR CLEAR [facility] Urine Glucose 100(A) NEGATIVE mg/dL [facility] Bili UA NEGATIVE NEGATIVE [facility] Ketones NEGATIVE NEGATIVE [facility] Specific [place] 1.036(A) 1.003 - 1.030 [facility] Blood Ur NEGATIVE Neg-Trace [facility] PH Urine 7.5(H) 5.0 - 7.0 [facility] Protein Ur TRACE Neg-Trace [facility] Urobilinogen NORMAL NORMAL EU/dL [facility] Nitrite Ur NEGATIVE NEGATIVE [facility] Leuk Est NEGATIVE Neg-Trace [facility] WBC Ur 0-5 0 - 5 perHPF [facility] RBC Ur 0-3 0 - 3 perHPF [facility] SQ EPITH 0-5 0 - 5 perHPF [facility] Urinalysis Performed at: [facility] Urine 11/04/2023 11:5 5 PM [employer] 11/05/2023 12:03 AM [employer] Devin Dougherty MD LABORATORY [facility] [address] [address] * PF INSERT CATH,ART,PERCUT,SHORTTERM (11/04/2023 11:43 PM [employer]) Narrative Rito Graf MD - 11/04/2023 11:43 PM [employer] Priscilla Holcomb MD ? 11/04/2023 11:44 PM Arterial Line Performed by: Priscilla Holcomb MD Authorized by: Rito Graf MD ?? Consent: ??Consent obtained: ??Verbal ??Consent given by: ??Patient ??Risks discussed: ??Pain, bleeding and infection [place] protocol: ??Patient identity confirmed: ??Verbally with patient, [...] * ED EKG (12-LEAD) (11/04/2023 11:25 PM [employer]) 11/04/2023 11:2 5 PM [employer] Impressions [facility] CVIS EKG ORDERS - 11/04/2023 11:25 PM [employer] SINUS TACHYCARDIA RIGHT BUNDLE BRANCH BLOCK ??[120+ ms QRS DURATION, UPRIGHT V1, 40+ ms S IN I/aVL/V4/V5/V6] ABNORMAL ECG P-R Interval 173 ms QRS Interval 127 ms QT Interval 395 ms QTC Interval 458 ms P [place] 57 QRS [place] 34 T Wave [place] 43 Narrative Procedure Note Vineet Díaz MD - 11/05/2023 IMPRESSION SINUS TACHYCARDIA RIGHT BUNDLE BRANCH BLOCK [120+ ms QRS DURATION, UPRIGHT V1, 40+ ms S INI/aVL/V4/V5/V6] ABNORMAL ECG P-R Interval 173 ms QRS Interval 127 ms QT Interval 395 ms QTC Interval 458 ms P [place] 57 QRS [place] 34 T Wave [place] 43 Devin Dougherty MD EKG [facility] CVIS EKG ORDERS * CT SPINE LUMBAR NO IV CON (11/04/2023 11:05 PM [employer]) Anatomical Region Laterality Modality Lumbar Spine Computed Tomogra phy 11/04/2023 11:2 3 PM [employer] Impressions 11/05/2023 9:22 AM [employer] Impression: 1. No suspected acute fracture or dislocation of the thoracic or lumbar spine. ?? 2. Wucq-np-foebpmqb lumbar spondylosis without suspected high-grade spinal canal or neural foraminal narrowing. I have personally reviewed the image(s) and initial interpretation, and I agree with the findings as documented by the resident/fellow. Reading Radiologist: Ford Fernández Resident: Laith Berkowitz Narrative 11/05/2023 9:22 AM [employer] Exam: Thoracic and Lumbar Spine CT Reconstructions, [...] dislocation of the thoracic or lumbarspine. 2. Kczw-xj-ycabzbkn lumbar spondylosis without suspected high-grade spinalcanal or neural foraminal narrowing. I have personally reviewed the image(s) and initial interpretation, and Iagree with the findings as documented by the resident/fellow. Reading Radiologist: Ford Fernández Resident: Laith Berkowitz Devin Dougherty MD RAD CT NEURO * CT SPINE THORACIC NO IV CON (11/04/2023 11:05 PM [employer]) Anatomical Region Laterality Modality Thoracic Spine Computed Tomogra phy 11/04/2023 11:2 3 PM [employer] Impressions 11/05/2023 9:22 AM [employer] Impression: 1. No suspected acute fracture or dislocation of the thoracic or lumbar spine. ?? 2. Losl-qx-zzydobis lumbar spondylosis without suspected high-grade spinal canal or neural foraminal narrowing. I have personally reviewed the image(s) and initial interpretation, and I agree with the findings as documented by the resident/fellow. Reading Radiologist: Ford Fernández Resident: Laith Berkowitz Narrative 11/05/2023 9:22 AM [employer] Exam: Thoracic and Lumbar Spine CT Reconstructions, [...] dislocation of the thoracic or lumbarspine. 2. Dcek-dj-lggljtzm lumbar spondylosis without suspected high-grade spinalcanal or neural foraminal narrowing. I have personally reviewed the image(s) and initial interpretation, and Iagree with the findings as documented by the resident/fellow. Reading Radiologist: Ford Fernández Resident: Laith Berkowitz Devin Dougherty MD RAD CT NEURO * CT CHEST/ABD/PELVIS W/IV CONT (11/04/2023 11:05 PM [employer]) Anatomical Region Laterality Modality Chest Computed Tomogra phy 11/04/2023 11:2 9 PM [employer] Impressions 11/05/2023 6:33 AM [employer] Impression: 1. No acute traumatic sequelae in [...] Reading Resident: Laith Berkowitz 11/05/2023 6:33 AM [employer] Comparison: None Indication: Trauma (STAB) ?? Technique: [...] Reading Radiologist: Scott Porras Resident: Laith Berkowitz Devin Dougherty MD RAD CT BODY * CT SPINE CERVICAL NO IV CON (11/04/2023 11:05 PM [employer]) Anatomical Region Laterality Modality Cervical Spine Computed Tomogra phy 11/04/2023 11:2 0 PM [employer] Impressions 11/05/2023 8:27 AM [employer] Impression: ?? 1. No acute fracture or traumatic subluxation of the cervical vertebrae. 2. Mild degenerative changes of the cervical spine without high-grade spinal canal or neural foraminal narrowing. I have personally reviewed the image(s) and initial interpretation, and I agree with the findings as documented by the resident/fellow. Reading Radiologist: Ford Fernández Resident: Laith Berkowitz Narrative 11/05/2023 8:27 AM [employer] Exam: Cervical spine CT without contrast, 11/04/2023 [...] spinal canal narrowing. C5-6: Mild left and rzwn-vx-nlpeminl right neural foraminal narrowing. Borderline mild spinal [...] spinal canal narrowing. C5-6: Mild left and oarv-rf-ygwqnizy right neural foraminal narrowing.Borderline mild spinal canal [...] Dougherty MD RAD CT NEURO * CT HEAD NO IV CONTRAST (11/04/2023 11:05 PM [employer]) Anatomical Region Laterality Modality Skull Computed Tomogra phy 11/04/2023 11:1 2 PM [employer] Impressions 11/05/2023 10:23 AM [employer] Impression: 1. Thin subdural hemorrhage, measuring up to 3 mm, along the posterior falx, right greater than left tentorial leaflets, and right cerebral convexity. No midline shift. 2. Scattered foci of subarachnoid hemorrhage as detailed above. 3. 9 mm focus of left periventricular hemorrhage about the caudate nucleus and small focus of intraparenchymal hemorrhage in the subcortical left frontal white matter. Yuli Traumatic Brain Injury Scale: Diffuse Injury 2 YULI DIAGNOSTIC CATEGORIES OF ABNORMALITIES VISUALIZED ON CT SCANNING FOR TRAUMATIC BRAIN INJURY: Diffuse Injury 1: No visible intracranial pathology seen on CT scan. Diffuse Injury 2: Cisterns are present with shift 0-5 mm and/or lesion densities present. No high or mixed density lesion >25ml. May include bone fragments and foreign bodies. Diffuse Injury 3 (swelling): Cisterns compressed or absent with shift 0-5mm. No high or mixed density lesion > 25ml. ? Diffuse Injury 4 (shift): Shift > 5mm. No high or mixed density lesion > 25ml. Evacuated mass lesion: Any surgically evacuated lesion. ?? Non evacuated mass lesion: High or mixed-density lesion > 25ml. Not surgically evacuated. I have personally reviewed the image(s) and initial interpretation, and I agree with the findings as documented by the resident/fellow. Reading Radiologist: Ford Fernández Resident: Laith Berkowitz 11/05/2023 10:23 AM [employer] Exam: Head CT without contrast, 11/05/2023 Indication: Trauma. Comparison: None. Technique: Thin-section CT images through the brain were obtained from the base of the skull through the vertex without intravenous contrast, reconstructed in axial, coronal, and sagittal planes, and reviewed in brain, bone and subdural windows. Radiation dose: Total DLP = 1018.8 mGy*cm. Findings: Thin subdural hemorrhage tracking along the right cerebral convexity, posterior cerebral falx, and right greater than left tentorial leaflets, probably measuring 3 mm in maximal thickness along the falx and right tentorium. 9 mm focus of left periventricular hemorrhage and additional punctate focus of intraparenchymal hemorrhage in the left frontal subcortical white matter (axial image 46 of series 201). Scattered foci of subarachnoid hemorrhage, which is most notable along the left frontoparietal regions near the vertex and the right ambient cistern. No shift of midline. The basal cisterns are patent. No acute appearing loss of the díaz-white matter differentiation. The parenchymal volume is probably appropriate for age; the ventricles and sulci are proportional. Mild foci of hypoattenuation in the periventricular predominant cerebral white matter, possibly related to a component of mild leukoaraiosis. No significant external soft tissue swelling. The bones the calvaria and skull base are without acute or suspicious abnormality. Polypoid focus of mucosal thickening in the right maxillary sinus; the paranasal sinuses are otherwise clear. The mastoid air cells appear clear. Changes of bilateral pseudophakia; the orbits are otherwise unremarkable. Calcific atherosclerosis of the carotid siphons again intradural vertebral arteries. Procedure Note Ford Fernández DO - 11/05/2023 Exam: Head CT without contrast, 11/05/2023 Indication: Trauma. Comparison: None. Technique: Thin-section CT images through the brain were obtained from thebase of the skull through the vertex without intravenous contrast,reconstructed in axial, coronal, and sagittal planes, and reviewed inbrain, bone and subdural windows. Radiation dose: Total DLP = 1018.8 mGy*cm. Findings: Thin subdural hemorrhage tracking along the right cerebralconvexity, posterior cerebral falx, and right greater than left tentorialleaflets, probably measuring 3 mm in maximal thickness along the falx andright tentorium. 9 mm focus of left periventricular hemorrhage andadditional punctate focus of intraparenchymal hemorrhage in the leftfrontal subcortical white matter (axial image 46 of series 201). Scatteredfoci of subarachnoid hemorrhage, which is most notable along the leftfrontoparietal regions near the vertex and the right ambient cistern. No shift of midline. The basal cisterns are patent. No acute appearingloss of the díaz-white matter differentiation. The parenchymal volume isprobably appropriate for age; the ventricles and sulci are proportional.Mild foci of hypoattenuation in the periventricular predominant cerebralwhite matter, possibly related to a component of mild leukoaraiosis. No significant external soft tissue swelling. The bones the calvaria andskull base are without acute or suspicious abnormality. Polypoid focus ofmucosal thickening in the right maxillary sinus; the paranasal sinuses areotherwise clear. The mastoid air cells appear clear. Changes of bilateralpseudophakia; the orbits are otherwise unremarkable. Calcificatherosclerosis of the carotid siphons again intradural vertebralarteries. IMPRESSION Impression: 1. Thin subdural hemorrhage, measuring up to 3 mm, along the posteriorfalx, right greater than left tentorial leaflets, and right cerebralconvexity. No midline shift. 2. Scattered foci of subarachnoid hemorrhage as detailed above. 3. 9 mm focus of left periventricular hemorrhage about the caudate nucleusand small focus of intraparenchymal hemorrhage in the subcortical leftfrontal white matter. Yuli Traumatic Brain Injury Scale: Diffuse Injury 2 YULI DIAGNOSTIC CATEGORIES OF ABNORMALITIES VISUALIZED ON CT SCANNINGFOR TRAUMATIC BRAIN INJURY: Diffuse Injury 1: No visible intracranial pathology seen on CT scan. Diffuse Injury 2: Cisterns are present with shift 0-5 mm and/or lesiondensities present. No high or mixed density lesion >25ml. May include bonefragments and foreign bodies. Diffuse Injury 3 (swelling): Cisterns compressed or absent with shift0-5mm. No high or mixed density lesion > 25ml. Diffuse Injury 4 (shift): Shift > 5mm. No high or mixed density lesion >25ml. Evacuated mass lesion: Any surgically evacuated lesion. Non evacuated mass lesion: High or mixed-density lesion > 25ml. Notsurgically evacuated. I have personally reviewed the image(s) and initial interpretation, and Iagree with the findings as documented by the resident/fellow. Reading Radiologist: Ford Fernández Resident: Laith Berkowitz Devin Dougherty MD RAD CT NEURO * XR CHEST 1 VIEW AP OR PA* (11/04/2023 10:57 PM [facility]) Anatomical Region Laterality Modality Chest Computed Radiogr aphy 11/04/2023 11:0 0 PM [facility] Impressions 11/05/2023 6:18 AM [facility] Impression: No acute cardiopulmonary findings. I have personally reviewed the image(s) and initial interpretation, and I agree with the findings as documented by the resident/fellow. Reading Radiologist: Scott Porras Resident: Laith Berkowitz Narrative 11/05/2023 6:18 AM [facility] Technique: XR CHEST 1 VIEW AP OR PA* Indication: STAB Patient ?? Comparison: None Findings: AP view of the chest. Trachea is midline. Normal cardiomediastinal silhouette. No pleural effusion, pneumothorax or consolidation. No acute osseous abnormality. Surgical clips along left axillary region. Procedure Note Scott Porras MD - 11/05/2023 Technique: XR CHEST 1 VIEW AP OR PA* Indication: STAB Patient Comparison: None Findings: AP view of the chest. Trachea is midline. Normalcardiomediastinal silhouette. No pleural effusion, pneumothorax orconsolidation. No acute osseous abnormality. Surgical clips along leftaxillary region. IMPRESSION Impression: No acute cardiopulmonary findings. I have personally reviewed the image(s) and initial interpretation, and Iagree with the findings as documented by the resident/fellow. Reading Radiologist: Scott Porras Reading Resident: Laith Berkowitz Devin Dougherty MD RAD XRAY * (ABNORMAL) ED HEMOGLOBIN TOTAL (ED ONLY) (11/04/2023 10:48 PM [facility]) Hgb 10.3(L) 11.5 - 15.7 g/dL [facility] Blood 11/04/2023 10:4 8 PM [facility] 11/04/2023 10:49 PM [facility] Devin Dougherty MD LABORATORY [facility] [address] [address] * (ABNORMAL) ED CHEMISTRY LABS(NA,K,CL,CO2,GLU,CREAT,CA-IONIZED,ANION GAP) (11/04/2023 10:48 PM [facility]) Sodium 144 135 - 148 mEq/L [facility] Chloride 106 92 - 108 mEq/L [facility] AnGap 11 8 - 16 mEq/L [facility] Glucose 234(H) 70 - 100 mg/dL [facility] ICA, Actual 4.52 4.40 - 5.20 mg/dL [facility] ICA, pH Corrected 4.51 4.40 - 5.20 mg/dL [facility] Creatinine 0.81 0.50 - 1.00 mg/dL [facility] BICARB 27(H) 22 - 26 mEq/L [facility] eGFR (2020 CKD-EPI) 73 >=60 ml/min/1.7 3m2 [facility] Comment: The estimated glomerular filtration rate (eGFR) was calculated using the CKD-EPI 2020 creatinine equation, which does not include race as a factor. This equation is validated in individuals 18 years of age and older, and eGFR is normalized to a body surface area of 1.73m^2. Potassium 2.8(AA) 3.5 - 5.3 mEq/L [facility] Comment:Critcal Result Low Blood 11/04/2023 10:4 8 PM [facility] 11/04/2023 10:49 PM [facility] Narrative [facility] - 11/04/2023 10:55 PM [facility] Critical value for Potassium called to and read back by Rafa Hutchins RN in ??EDSTAB 2 at 11/04/2023 22:55:31 [facility] by Eleni Spring MLS. Devin Dougherty MD LABORATORY Performing Organization Address [facility] Co de Phone Number [facility] [address] [address] * (ABNORMAL) ANTI XA HEPARIN UNFRACTIONATED (11/04/2023 10:45 PM [facility]) Anti XA Hep U <0.04(L) 0.30 - 0.70 IU/mL [facility] Blood 11/04/2023 10:4 5 PM [facility] 11/04/2023 11:05 PM [facility] Devin Dougherty MD LABORATORY Performing Organization Address [facility] Co de Phone Number [facility] [address] [address] * EXTRA TUBE - SST (11/04/2023 10:45 PM [facility]) SST TUBE Stored [facility] Comment:SST tubes (Serum Sep arator) are stored in the lab for 3 days from the collection date. Blood 11/04/2023 10:4 5 PM [facility] 11/04/2023 10:50 PM [facility] Devin Dougherty MD LABORATORY Performing Organization Address [facility] Co de Phone Number [facility] [address] [address] * EXTRA TUBE - LIGHT GREEN (11/04/2023 10:45 PM [facility]) Pathologist [facility] LIGHT GREEN TUBE Stored [facility] Comment:Green tubes ([place] Heparin) are stored in the lab for 3 days from the collection date. Blood 11/04/2023 10:4 5 PM [facility] 11/04/2023 10:50 PM [facility] Devin Dougherty MD LABORATORY Performing Organization Address City/[facility]/ZIP Co de Phone Number [facility] [address] [address] * HS TROPONIN (11/04/2023 10:45 PM [facility]) [facility] HS Troponin I 10 <=14 ng/L [facility] Blood 11/04/2023 10:4 5 PM [facility] 11/04/2023 11:05 PM [facility] Narrative [facility] - 11/04/2023 11:36 PM [facility] First Occurrence of the Troponin order is to be drawn Stat by Nursing staff on the unit. Devin Dougherty MD LABORATORY Performing Organization Address [facility] Co de Phone Number [address] [address] * (ABNORMAL) PTT (APTT) (11/04/2023 10:45 PM [facility]) [facility] APTT 22.9(L) 25.0 - 37.0 sec [facility] Blood 11/04/2023 10:4 5 PM [facility] 11/04/2023 11:05 PM [facility] Devin Dougherty MD LABORATORY Performing Organization Address [facility] Co de Phone Number [address] [address] * ED INR (11/04/2023 10:45 PM [facility]) Pathologist [facility] ED INR 1.0 0.8 - 1.1 [facility] Comment: Warfarin Therapeutic Range: Standard Intensity: 2.0 - 3.0 High Intensity: 2.5 - 3.5 Blood 11/04/2023 10:4 5 PM [facility] 11/04/2023 10:48 PM [facility] Devin Dougherty MD LABORATORY [facility] [address] [address] * PRECAUTIONARY TUBE (11/04/2023 10:45 PM [facility]) Prec Tube Precautionary Blood Bank Specimen Received. [facility] Blood 11/04/2023 10:4 5 PM [facility] 11/04/2023 10:52 PM [facility] Devin Dougherty MD LAB TRANSFUSION SER VICES Performing Organization Address [facility] Co de Phone Number [address] [address] * (ABNORMAL) LACTATE (LACTIC ACID) (11/04/2023 10:45 PM [facility]) Lactate 2.7(H) 0.7 - 2.1 mmol/L [facility] Blood 11/04/2023 10:4 5 PM [facility] 11/04/2023 10:50 PM [facility] Narrative [facility] - 11/04/2023 10:50 PM [facility] Send specimen on ice! Devin Dougherty MD LABORATORY Performing Organization Address [facility] Co de Phone Number [facility] [address] [address] * FIBRINOGEN (11/04/2023 10:45 PM [facility]) Fibrinogen 288 200 - 400 mg/dL [facility] Blood 11/04/2023 10:4 5 PM [facility] 11/04/2023 11:05 PM [facility] Devin Dougherty MD LABORATORY Performing Organization Address City/[facility]/ZIP Co de Phone Number [facility] [address] [address] * (ABNORMAL) CBC WITH PLTS/AUTO DIFF (11/04/2023 10:45 PM [facility]) WBC 9.42 4.00 - 10.00 k/cmm [facility] RBC 3.86(L) 3.90 - 5.20 m/cmm [facility] Hgb 9.8(L) 11.5 - 15.7 g/dL [facility] Hematocrit 31.8(L) 34.0 - 45.0 % [facility] MCV 82.4 80.0 - 100.0 fL [facility] MCH 25.4 25.0 - 32.0 pg [facility] MCHC 30.8(L) 31.0 - 36.0 g/dL [facility] RDW 15.3(H) 11.5 - 14.5 % [facility] Plt 292 150 - 400 k/cmm [facility] MPV 11.1 6.5 - 12.5 fL [facility] Automated Abs Neutrophil 5.80 1.70 - 6.50 k/cmm [facility] Comment:Preliminary ANC, Fin al Result to Follow Abs Immature Granulocyte 0.07 0.00 - 0.09 k/cmm [facility] Comment:The Immature Granulo cyte Absolute count contains metamyelocytes and myelocytes. Abs Neutrophil 5.80 1.70 - 6.50 k/cmm [facility] Abs Lymphocyte 2.33 0.80 - 4.00 k/cmm [facility] Abs Monocyte 0.88 0.20 - 1.00 k/cmm [facility] Abs Eosinophil 0.27 0.00 - 0.60 k/cmm [facility] Abs Basophil 0.07 0.00 - 0.20 k/cmm [facility] Blood 11/04/2023 10:4 5 PM [facility] 11/04/2023 11:05 PM [facility] Devin Dougherty MD LABORATORY [facility] [address] [place] [id number] * (ABNORMAL) BLOOD GASES (11/04/2023 10:45 PM [facility]) Pathologist [facility] PH Jalen 7.39 7.32 - 7.42 [facility] PCO2 Jalen 45 41 - 51 mmHG [facility] PO2 Jalen 41(H) 25 - 40 mmHG [facility] Bicarb Jalen 27 24 - 28 mEq/L [facility] O2 Sat Jalen 69 % [facility] Base Exc Jalen 1.4 -10.0 - 2.0 mEq/L [facility] Blood Venous 11/04/2023 10:4 5 PM [facility] 11/04/2023 10:50 PM [facility] Devin Dougherty MD LABORATORY [facility] [address] [address] * ED US CRITICAL CARE (11/04/2023 10:40 PM [facility]) Anatomical Region Laterality Modality Ultrasound Narrative 11/04/2023 11:28 PM [facility] ED Trauma eFAST Ultrasound Indications: Suspicion of [...] PM Devin Dougherty MD RAD ED ULT documented in this encounter Visit Diagnoses Diagnosis Fall, initial encounter- Primary Fall, initial encounter SDH (subdural hematoma) ([facility]) Subdural hemorrhage SAH (subarachnoid hemorrhage) ([facility]) Subarachnoid hemorrhage Traumatic brain injury with loss of consciousness, initial encounter ([facility]) documented in this encounter Admitting Diagnoses Diagnosis Fall, initial encounter documented in this encounter Administered Medications Inactive Administered Medications - up to 3 most recent administrations Medication Order MAR Action Action Date Dose Rate Site acetaminophen (OFIRMEV) 10 mg/mL IV 1,000 mg 1,000 mg, Intravenous, Q6H, Administer over 15 Minutes, First dose on Sun11/05/23 at 0255, Until Discontinued New Bag 11/05/2023 4:19 AM [facility] 1,000 mg 400 mL /hr acetaminophen tablet 650 mg 650 mg, Oral, Q6H PRN, Starting on Sun11/05/23 at 0859, Until Sun11/16/23 at 1221, Mild Pain (Use First) Given 11/12/2023 2:59 AM [facility] 650 mg Given 11/10/2023 3:29 PM [facility] 650 mg Given 11/10/2023 9:23 AM [facility] 650 mg allopurinol (ZYLOPRIM) half tablet 50 mg 50 mg, Oral, DAILY, First dose on Sun11/08/23 at 0930, Until Discontinued Given 11/16/2023 7:33 AM [facility] 50 mg Given 11/15/2023 7:59 AM [facility] 50 mg Given 11/14/2023 8:15 AM [facility] 50 mg amLODIPine (NORVASC) tablet 5 mg 5 mg, Oral, DAILY, First dose on Sun11/12/23 at 1045, Until Discontinued Given 11/16/2023 7:33 AM [facility] 5 mg Given 11/15/2023 8:00 AM [facility] 5 mg Given 11/14/2023 8:14 AM [facility] 5 mg bisacodyl (DULCOLAX) suppository 10 mg 10 mg, Rectal, ONE TIME-NOW, 1 dose, On Sun11/14/23 at 0910 Given 11/14/2023 10:10 AM [facility] 10 mg carvedilol (COREG) tablet 12.5 mg 12.5 mg, Oral, BID, First dose on Sun11/05/23 at 2000, Until Discontinued Given 11/06/2023 8:03 PM [facility] 12.5 mg Given 11/06/2023 8:50 AM [facility] 12.5 mg Given 11/05/2023 8:04 PM [facility] 12.5 mg carvedilol (COREG) tablet 12.5 mg 12.5 mg, Oral, BID, First dose (after last modification) on Sun11/07/23 at 2000, Until Discontinued Given 11/09/2023 9:04 AM [facility] 12.5 mg Given 11/08/2023 7:48 PM [facility] 12.5 mg Given 11/08/2023 7:53 AM [facility] 12.5 mg carvedilol (COREG) tablet 6.25 mg 6.25 mg, Oral, BID, First dose (after last modification) on Sun11/09/23 at 2000, Until Discontinued Given 11/16/2023 7:34 AM [facility] 6.25 mg Given 11/15/2023 9:11 PM [facility] 6.25 mg Given 11/15/2023 8:00 AM [facility] 6.25 mg chlorthaLIDONE (HYGROTON) tablet 25 mg 25 mg, Oral, DAILY, First dose (after last reorder) on Sun11/06/23 at 1100, Until Discontinued Given 11/06/2023 2:55 PM [facility] 25 mg chlorthaLIDONE (HYGROTON) tablet 25 mg 25 mg, Oral, DAILY, First dose (after last modification) on Sun11/08/23 at 0800, Until Discontinued Given 11/16/2023 7:33 AM [facility] 25 mg Given 11/15/2023 7:59 AM [facility] 25 mg Given 11/14/2023 8:15 AM [facility] 25 mg clevidipine (CLEVIPREX) 50 mg in 100 mL emulsion 0-21 mg/hr (0-42 mL/hr), Start infusion at (mg/hr): 2, Titrate to: SBP (mmHg), of: 140, Intravenous, CONTINUOUS, Starting on Sun11/04/23 at 2320, Until Sun11/06/23 at 0846 Rate changed 11/06/2023 5:34 AM [facility] 8 mg/hr 16 mL/hr New Bag 11/06/2023 4:49 AM [facility] 6 mg/hr 12 mL/hr Rate changed 11/06/2023 1:58 AM [facility] 6 mg/hr 12 mL/hr clevidipine (CLEVIPREX) 50 mg in 100 mL emulsion 0-21 mg/hr (0-42 mL/hr), Start infusion at (mg/hr): 1, Titrate to: SBP (mmHg), of: 140, Intravenous, CONTINUOUS, Starting on Sun11/05/23 at 0120, Until Sun11/05/23 at 0246 New Bag 11/05/2023 1:46 AM [facility] 21 mg/hr 42 mL/hr clevidipine (CLEVIPREX) 50 mg in 100 mL emulsion 0-21 mg/hr (0-42 mL/hr), Start infusion at (mg/hr): 2, Titrate to: SBP (mmHg), of: 160, Intravenous, CONTINUOUS, Starting on Sun11/06/23 at 0905, Until Sun11/07/23 at 0711 Rate changed 11/06/2023 4:58 PM [facility] 2 mg/hr 4 mL/hr Restarted 11/06/2023 4:50 PM [facility] 3 mg/hr 6 mL/hr Rate changed 11/06/2023 2:56 PM [facility] 3 mg/hr 6 mL/hr DC MED REC REVIEW BY PHARMACY Discharge Date: 11/09/2023, Discharge Location: Subacute Rehab, Anticipated Discharge Time: 10 am - 2 pm, Discharge Medication Orders: DC Med Orders Final, Does not apply, PROTOCOL, Starting on Sun11/08/23 at 0856, Until Sun11/16/23 at 1221 divalproex sodium (DEPAKOTE SPRINKLES) capsule 250 mg 250 mg, Oral, BID, First dose on Sun11/05/23 at 0905, Until Discontinued Given 11/16/2023 7:33 AM [facility] 250 mg Given 11/15/2023 8:58 PM [facility] 250 mg Given 11/15/2023 7:59 AM [facility] 250 mg enoxaparin (LOVENOX) 30 mg/0.3 mL injection 30 mg 30 mg, Subcutaneous, Q12H, First dose on Sun11/07/23 at 2000, Until Discontinued Given 11/15/2023 8:57 PM [facility] 30 mg Abdominal Tissue Given 11/15/2023 8:02 AM [facility] 30 mg Le ft Upper Arm Given 11/14/2023 8:20 PM [facility] 30 mg Ri ght Upper Arm hydrALAZINE (APRESOLINE) 20 mg/mL injection 10 mg 10 mg, IV Push, Q4H PRN, Starting on Sun11/07/23 at 1004, Until Sun11/08/23 at 0906, SBP greater than 160 mmHg Given 11/07/2023 5:01 PM [facility] 10 mg hydrALAZINE (APRESOLINE) 20 mg/mL injection 20 mg 20 mg, IV Push, ONE TIME-NOW, 1 dose, On Sun11/07/23 at 1005 Given 11/07/2023 10:29 AM [facility] 20 mg insulin ASPART (NovoLOG) FlexPen Insulin Order Mode: Fixed Dose, PRIOR to Breakfast dose (Units): 0, PRIOR to Noon meal dose (Units): 0, PRIOR to Evening meal dose (Units): 0, Glucose 130-150 (Units): 0, Glucose 151-200 (Units): 1, Glucose 201-250 (Units): 2, Glucose 251-300 (Units): 3, Glucose 301-350 (Units): 4, Glucose 351-400 (Units): 5, Glucose 401-500 (Units): 6, Glucose GREATER THAN 501 (Units): 7, Glucose GREATER THAN 501 instructions: Call Provider, Subcutaneous, Q6H, First dose on Sun11/05/23 at 0120, Until Discontinued Given 11/05/2023 5:53 PM [facility] 1 UNITS Abdominal Tissue Given 11/05/2023 12:40 PM [facility] 2 UNITS L eft Upper Arm Given 11/05/2023 8:00 AM [facility] 1 UNITS Le ft Upper Arm insulin ASPART (NovoLOG) FlexPen Insulin Order Mode: Fixed Dose, PRIOR to Breakfast dose (Units): 0, PRIOR to Noon meal dose (Units): 0, PRIOR to Evening meal dose (Units): 0, Glucose 130-150 (Units): 0, Glucose 151-200 (Units): 1, Glucose 201-250 (Units): 2, Glucose 251-300 (Units): 3, Glucose 301-350 (Units): 4, Glucose 351-400 (Units): 5, Glucose 401-500 (Units): 6, Glucose GREATER THAN 501 (Units): 7, Glucose GREATER THAN 501 instructions: Call Provider, Subcutaneous, TID AC, First dose on Sun11/07/23 at 1630, Until Discontinued Given 11/13/2023 4:35 PM [facility] 1 UNITS Right Upper Arm Given 11/13/2023 11:56 AM [facility] 1 UNITS L eft Upper Quadrant Abdomen Given 11/09/2023 5:47 PM [facility] 1,747 UNITS A bdominal Tissue insulin ASPART (NovoLOG) FlexPen Glucose 201-250 (Units): 0, Glucose 251-300 (Units): 0, Glucose 301-350 (Units): 0, Glucose 351-400 (Units): 3, Glucose 401-450 (Units): 4, Glucose 451-500 (Units): 5, Glucose GREATER THAN 501 (Units): 6, Glucose GREATER THAN 501 instructions: Call provider, Subcutaneous, BEDTIME MAY REPEAT ONCE, First dose on Sun11/07/23 at 2100, Until Discontinued iohexol (OMNIPAQUE) 350 mg/mL injection IV Push, RAD ONE TIME AUTO ACKNOWLEDGE, 1 dose, On Sun11/04/23 at 2310 Given 11/04/2023 11:07 PM [facility] 120 mL Left Arm iohexol (OMNIPAQUE) 350 mg/mL injection IV Push, RAD ONE TIME AUTO ACKNOWLEDGE, 1 dose, On Sun11/05/23 at 0010 Given 11/05/2023 12:09 AM [facility] 60 mL labetalol (NORMODYNE;TRANDATE) 5 mg/mL injection 10 mg 10 mg, IV Push, Q1H PRN, Starting on Sun11/07/23 at 1004, Until Sun11/08/23 at 0906, SBP greater than 160 mmHg Given 11/08/2023 5:53 AM [facility] 10 mg Given 11/08/2023 4:16 AM [facility] 10 mg Given 11/08/2023 1:27 AM [facility] 10 mg lactated ringers infusion at 75 mL/hr, Intravenous, CONTINUOUS, Starting on Sun11/07/23 at 1055, Until Sun11/07/23 at 1625 Rate changed 11/07/2023 11:53 AM [facility] 75 mL/hr New Bag 11/07/2023 11:23 AM [facility] 110 mL/hr levETIRAcetam (KEPPRA) 750 mg in NaCl 0.9% 100 mL IVPB 750 mg, Intravenous, Q12H, Administer over 15 Minutes, First dose on Sun11/07/23 at 1400, Last dose on Sun11/12/23 at 0800 New Bag 11/08/2023 8:02 AM [facility] 750 mg 430 mL/hr New Bag 11/07/2023 3:10 PM [facility] 750 mg 430 mL/hr levETIRAcetam (KEPPRA) tablet 1,000 mg 1,000 mg, Oral, BID, 11 doses, First dose on Sun11/06/23 at 1999, Last dose on Sun11/11/23 at 1999 Given 11/06/2023 8:03 PM [facility] 1,000 mg levETIRAcetam (KEPPRA) tablet 750 mg 750 mg, Oral, BID, 7 doses, First dose on Sun11/08/23 at 1999, Last dose on Sun11/11/23 at 1999 Given 11/11/2023 7:57 PM [facility] 750 mg Given 11/11/2023 8:55 AM [facility] 750 mg Given 11/10/2023 8:58 PM [facility] 750 mg levETIRAcetam in NaCl (KEPPRA) 1000 mg/100 mL IVPB 1,000 mg 1,000 mg, Intravenous, Q12H, Administer over 15 Minutes, First dose on Sun11/05/23 at 0800, Last dose on Sun11/11/23 at 0800 New Bag 11/05/2023 8:04 PM [facility] 1,000 mg New Bag 11/05/2023 8:08 AM [facility] 1,000 mg levETIRAcetam in NaCl (KEPPRA) 1000 mg/100 mL IVPB 2,000 mg 2,000 mg, Intravenous, ONE TIME, Administer over 15 Minutes, On Sun11/04/23 at 2345 New Bag 11/04/2023 11:40 PM [facility] 2,000 mg losartan (COZAAR) tablet 25 mg 25 mg, Oral, DAILY, First dose on Sun11/05/23 at 0900, Until Discontinued Given 11/06/2023 8:50 AM [facility] 25 mg Given 11/05/2023 11:13 AM [facility] 25 mg losartan (COZAAR) tablet 25 mg 25 mg, Oral, BID, First dose (after last modification) on Sun11/13/23 at 0800, Until Discontinued Given 11/16/2023 7:33 AM [facility] 25 mg Given 11/15/2023 8:58 PM [facility] 25 mg Given 11/15/2023 8:00 AM [facility] 25 mg losartan (COZAAR) tablet 50 mg 50 mg, Oral, DAILY, First dose (after last modification) on Sun11/08/23 at 0800, Until Discontinued Given 11/12/2023 8:47 AM [facility] 50 mg Given 11/11/2023 8:55 AM [facility] 50 mg Given 11/10/2023 9:23 AM [facility] 50 mg magnesium sulfate 2 g IVPB 2 g, Intravenous, ONE TIME, Administer over 1 Hours, On Sun11/05/23 at 0220 New Bag 11/05/2023 2:59 AM [facility] 2 g 50 mL/hr magnesium sulfate 2 g IVPB 2 g, Intravenous, ONE TIME, Administer over 1 Hours, On Sun11/05/23 at 0620 New Bag 11/05/2023 8:08 AM [facility] 2 g 50 mL/hr melatonin tablet 3 mg 3 mg, Oral, BEDTIME, First dose on Sun11/08/23 at 2000, Until Discontinued Given 11/15/2023 8:57 PM [employer] 3 mg Given 11/14/2023 8:17 PM [employer] 3 mg Given 11/13/2023 8:41 PM [facility] [facility] 3 mg metFORMIN (GLUCOPHAGE) tablet 500 mg 500 mg, Oral, BID, First dose on Sun11/15/23 at 1010, Until Discontinued Given 11/16/2023 7:33 AM [facility] 500 mg Given 11/15/2023 8:57 PM [employer] 500 mg Given 11/15/2023 12:47 PM [employer] 500 mg NaCl 0.9% infusion at 100 mL/hr, Intravenous, CONTINUOUS, Starting on Sun11/05/23 at 0120, Until Sun11/05/23 at 1705 Infusing 11/05/2023 12:00 PM [employer] 100 mL/hr Infusing 11/05/2023 11:00 AM [employer] 100 mL/hr Infusing 11/05/2023 10:00 AM [employer] 100 mL/hr naproxen (NAPROSYN) tablet 500 mg 500 mg, Oral, BID, 19 doses, First dose on Sun11/08/23 at 0845, Last dose on Sun11/17/23 at 2000 Given 11/16/2023 7:33 AM [facility] 500 mg Given 11/15/2023 8:57 PM [facility] 500 mg Given 11/15/2023 7:58 AM [facility] 500 mg OLANZapine (ZyPREXA ZYDIS) disintegrating tablet 2.5 mg 2.5 mg, Oral, BEDTIME, First dose (after last modification) on Sun11/15/23 at 0230, Until Discontinued Given 11/15/2023 9:01 PM [facility] 2.5 mg Given 11/15/2023 3:27 AM [facility] 2.5 mg OLANZapine (ZyPREXA) tablet 10 mg 10 mg, Oral, BEDTIME PRN, Starting on Sun11/07/23 at 0048, Until Sun11/07/23 at 0836, Agitation Given 11/07/2023 1:46 AM [facility] 10 mg ondansetron (ZOFRAN ODT) disintegrating tablet 4 mg 4 mg, Oral, TID PRN, Starting on Sun11/06/23 at 1020, Until Sun11/16/23 at 1221, Nausea/Vomiting (Use First) ondansetron (ZOFRAN) 4 mg/2 mL injection 4 mg 4 mg, IV Push, ONE TIME, 1 dose, On Sun11/06/23 at 1025 Given 11/06/2023 10:31 AM [facility] 4 mg ondansetron (ZOFRAN) 4 mg/2 mL injection 1 dose, Starting on Sun11/06/23 at 1024, Until Sun11/06/23 at 1031 polyethylene glycol 3350 (MIRALAX;GLYCOLAX) packet 17 g 17 g, Oral, DAILY, First dose on Sun11/06/23 at 0800, Until Discontinued Given 11/13/2023 8:24 AM [facility] 17 g Given 11/12/2023 8:47 AM [facility] 17 g Given 11/11/2023 8:56 AM [facility] 17 g polyethylene glycol 3350 (MIRALAX;GLYCOLAX) packet 17 g 17 g, Oral, BID, First dose (after last modification) on Sun11/14/23 at 0800, Until Discontinued Given 11/15/2023 8:57 PM [facility] 17 g Given 11/15/2023 8:00 AM [facility] 17 g Given 11/14/2023 8:19 PM [facility] 17 g potassium chloride (K-DUR) tablet 40 mEq 40 mEq, Oral, ONE TIME, 1 dose, On Sun11/09/23 at 0735 Given 11/09/2023 9:43 AM [facility] 40 mEq potassium chloride (K-DUR) tablet 40 mEq 40 mEq, Oral, ONE TIME-NOW, 1 dose, On Sun11/13/23 at 1025 Given 11/13/2023 10:51 AM [facility] 40 mEq potassium chloride (K-DUR) tablet 40 mEq 40 mEq, Oral, DAILY, First dose on Sun11/14/23 at 0800, Until Discontinued Given 11/16/2023 7:34 AM [facility] 40 mEq Given 11/15/2023 7:58 AM [facility] 40 mEq Given 11/14/2023 8:15 AM [facility] 40 mEq potassium chloride (K-CANDIDO) 20 mEq 20 mEq, Oral, ONE TIME, 1 dose, On Sun11/05/23 at 1955 Given 11/05/2023 10:32 PM [facility] 20 mEq potassium chloride (K-CANDIDO) powder 20 mEq 20 mEq, Oral, ONE TIME, 1 dose, On Sun11/13/23 at 1540 Given 11/13/2023 4:35 PM [facility] 20 mEq potassium chloride IVPB 10 mEq 10 mEq, Intravenous, ONE TIME, Administer over 60 Minutes, On Sun11/04/23 at 2355 New Bag 11/05/2023 12:12 AM [facility] 10 m Eq potassium chloride IVPB 10 mEq 10 mEq, Intravenous, Q1H, Administer over 60 Minutes, First dose on Sun11/05/23 at 0220, Last dose on Sun11/05/23 at 0320 New Bag 11/05/2023 4:19 AM [facility] 10 mEq New Bag 11/05/2023 2:59 AM [facility] 10 mEq potassium chloride IVPB 10 mEq 10 mEq, Intravenous, Q1H, Administer over 60 Minutes, First dose on Sun11/05/23 at 0620, Last dose on Sun11/05/23 at 0720 New Bag 11/05/2023 8:04 AM [facility] 10 mEq rosuvastatin (CRESTOR) tablet 20 mg 20 mg, Oral, DAILY, First dose on Sun11/05/23 at 0900, Until Discontinued Given 11/16/2023 7:33 AM [facility] 20 mg Given 11/15/2023 7:58 AM [facility] 20 mg Given 11/14/2023 8:15 AM [facility] 20 mg sennosides-docusate sodium (STOOL SOFTENER/LAXATIVE) 8.6-50 mg tablet 1 tablet 1 tablet, Oral, BID, First dose on Sun11/06/23 at 0800, Until Discontinued Given 11/07/2023 7:54 PM [facility] 1 tablet Given 11/06/2023 8:03 PM [facility] 1 tablet sennosides-docusate sodium (STOOL SOFTENER/LAXATIVE) 8.6-50 mg tablet 1 tablet 1 tablet, Oral, BID, First dose (after last modification) on Sun11/14/23 at 0800, Until Discontinued Given 11/16/2023 7:33 AM [facility] 1 tablet Given 11/15/2023 8:57 PM [facility] 1 tablet Given 11/15/2023 7:59 AM [facility] 1 tablet venlafaxine (EFFEXOR XR) capsule 225 mg 225 mg, Oral, DAILY, First dose on Sun11/06/23 at 1000, Until Discontinued Given 11/16/2023 7:32 AM [facility] 225 mg Given 11/15/2023 7:58 AM [facility] 225 mg Given 11/14/2023 8:14 AM [facility] 225 mg VTE Anti Xa Monitoring Does not apply, PROTOCOL, Starting on Sun11/07/23 at 1354, Until Sun11/16/23 at 1221 documented in this encounter Active and Recently Administered Medications Times are shown in [facility]. Scheduled Medication Order 11/14/2023 11/15/2023 11/16/2023 allopurinol (ZYLOPRIM) half tablet 50 mg 50 mg, Oral, DAILY, First dose on Sun11/08/23 at 0930, Until Discontinued 814 (Given - Provider: Adelso Huber RN) 075 (Given - Provider: Raiza Bustos RN) 0733 (Given - Provider: Cornell Solomon RN) amLODIPine (NORVASC) tablet 5 mg 5 mg, Oral, DAILY, First dose on Sun11/12/23 at 1045, Until Discontinued 813 (Given - Provider: Adelso Huber RN) 08 (Given - Provider: Raiza Bustos RN) 0733 (Given - Provider: Cornell Solomon RN) bisacodyl (DULCOLAX) suppository 10 mg (COMPLETED) 10 mg, Rectal, ONE TIME-NOW, 1 dose, On Sun11/14/23 at 0910 1010 (Given - Provider: Adelso Huber RN) carvedilol (COREG) tablet 6.25 mg 6.25 mg, Oral, BID, First dose (after last modification) on Sun11/09/23 at 2000, Until Discontinued 08 (Given - Provider: Adelso Huber RN)2016 (Given - Provider: Tone Rosario RN) 08 (Given - Provider: Raiza Bustos RN)2110 (Given - Provider: Karolyn Jacob RN) 0734 (Given - Provider: Cornell Solomon RN) chlorthaLIDONE (HYGROTON) tablet 25 mg 25 mg, Oral, DAILY, First dose (after last modification) on Sun11/08/23 at 0800, Until Discontinued 814 (Given - Provider: Adelso Huber RN) 0759 (Given - Provider: Raiza Bustos, YOVANY) 0733 (Given - Provider: Cornell Solomon, RN) DC MED REC REVIEW BY PHARMACY(Linked Group 1) Discharge Date: 11/09/2023, Discharge Location: [facility]hab, Anticipated Discharge Time: 10 am - 2 pm, Discharge Medication Orders: DC Med Orders Final, Does not apply, PROTOCOL, Starting on Va 11/08/23 at 0856, Until Sun11/16/23 at 1221 divalproex sodium (DEPAKOTE SPRINKLES) capsule 250 mg 250 mg, Oral, BID, First dose on Sun11/05/23 at 0905, Until Discontinued 0815 (Given - Provider: Adelso Huber RN)2017 (Given - Provider: Tone Rosario, YOVANY) 075 (Given - Provider: Raiza Bustos, YOVANY)2057 (Given - Provider: Karolyn Jacob, YOVANY) 0733 (Given - Provider: Cornell Solomon RN) enoxaparin (LOVENOX) 30 mg/0.3 mL injection 30 mg 30 mg, Subcutaneous, Q12H, First dose on Sun11/07/23 at 2000, Until Discontinued 814 (Given - Provider: Adelso Huber RN)2019 (Given - Provider: Tone Rosario, YOVANY) 08 (Given - Provider: Raiza Bustos, YOVANY)2056 (Given - Provider: Karolyn Jacob, YOVANY) 0734 (Not Given (removes Due time) - Provider: Cornell Solomon RN - Reason: Other (must enter a comment) - Comment: pt d/c ride here) insulin ASPART (NovoLOG) FlexPen Insulin Order Mode: Fixed Dose, PRIOR to Breakfast dose (Units): 0, PRIOR to Noon meal dose (Units): 0, PRIOR to Evening meal dose (Units): 0, Glucose 130-150 (Units): 0, Glucose 151-200 (Units): 1, Glucose 201-250 (Units): 2, Glucose 251-300 (Units): 3, Glucose 301-350 (Units): 4, Glucose 351-400 (Units): 5, Glucose 401-500 (Units): 6, Glucose GREATER THAN 501 (Units): 7, Glucose GREATER THAN 501 instructions: Call Provider, Subcutaneous, TID AC, First dose on Sun11/07/23 at 1630, Until Discontinued 08 (Not Given (removes Due time) - Provider: Adelso Huber RN - Reason: Per protocol)1234 (Not Given (removes Due time) - Provider: Adelso Huber RN - Reason: Per protocol)1655 (Not Given (removes Due time) - Provider: Adelso Huber RN - Reason: Per protocol) 0719 (Not Given (removes Due time) - Provider: Lila Gaines RN - Reason: Held per order - Comment: [phone] (Not Given (removes Due time) - Provider: Raiza Bustos RN - Reason: Per protocol)1430 (Not Given (removes Due time) - Provider: Lila Gaines RN - Reason: Held per order) 0739 (Not Given (removes Due time) - Provider: Cornell Solomon RN - Reason: Other (must enter a comment) - Comment: pt d/c ride here) insulin ASPART (NovoLOG) FlexPen Glucose 201-250 (Units): 0, Glucose 251-300 (Units): 0, Glucose 301-350 (Units): 0, Glucose 351-400 (Units): 3, Glucose 401-450 (Units): 4, Glucose 451-500 (Units): 5, Glucose GREATER THAN 501 (Units): 6, Glucose GREATER THAN 501 instructions: Call provider, Subcutaneous, BEDTIME MAY REPEAT ONCE, First dose on Sun11/07/23 at 2100, Until Discontinued 2201 (Not Given (removes Due time) - Provider: Tone Rosario RN - Reason: Per protocol - Comment: POC Glucose 168.) 223 (Not Given (removes Due time) - Provider: Karolyn Jacob RN - Reason: Held per order) losartan (COZAAR) tablet 25 mg 25 mg, Oral, BID, First dose (after last modification) on Sun11/13/23 at 0800, Until Discontinued 814 (Given - Provider: Adelso Huber RN)2018 (Given - Provider: Tone Rosario RN) 0800 (Given - Provider: Raiza Bustos RN)2057 (Given - Provider: Karolyn Jacob RN) 0733 (Given - Provider: Cornell Solomon RN) melatonin tablet 3 mg 3 mg, Oral, BEDTIME, First dose on Va 11/08/23 at 2000, Until Discontinued 2016 (Given - Provider: Tone Rosario RN) 2056 (Given - Provider: Karolyn Jacob RN) metFORMIN (GLUCOPHAGE) tablet 500 mg 500 mg, Oral, BID, First dose on Va 11/15/23 at 1010, Until Discontinued 1046 (Delayed (keeps Due time) - Provider: Lila Gaines RN - Reason: Medication unavailable)1247 (Given - Provider: Raiza Bustos RN)2056 (Given - Provider: Karolyn Jacob RN) 0733 (Given - Provider: Cornell Solomon RN) naproxen (NAPROSYN) tablet 500 mg 500 mg, Oral, BID, 19 doses, First dose on Av 11/08/23 at 0845, Last dose on Sun11/17/23 at 2000 0815 (Given - Provider: Adelso Huber RN)2017 (Given - Provider: Tone Rosario RN) 075 (Given - Provider: Raiza Bustos, YOVANY)2056 (Given - Provider: Karolyn Jacob RN) 0733 (Given - Provider: Cornell Solomon RN) OLANZapine (ZyPREXA ZYDIS) disintegrating tablet 2.5 mg 2.5 mg, Oral, BEDTIME, First dose (after last modification) on Va 11/15/23 at 0230, Until Discontinued 326 (Given - Provider: Dariana Alvarado RN)2100 (Given - Provider: Karolyn Jacob RN) polyethylene glycol 3350 (MIRALAX;GLYCOLAX) packet 17 g 17 g, Oral, BID, First dose (after last modification) on Sun11/14/23 at 0800, Until Discontinued 08 (Given - Provider: Adelso Huber RN)2018 (Given - Provider: Tone Rosario RN) 0800 (Given - Provider: Raiza Bustos RN)2056 (Given - Provider: Karolyn Jacob RN) 0739 (Not Given (removes Due time) - Provider: Cornell Solomon RN - Reason: Other (must enter a comment) - Comment: pt d/c ride here) potassium chloride (K-DUR) tablet 40 mEq 40 mEq, Oral, DAILY, First dose on Sun11/14/23 at 0800, Until Discontinued 814 (Given - Provider: Adelso Huber RN) 0758 (Given - Provider: Raiza Bustos, YOVANY) 0734 (Given - Provider: Cornell Solomon RN) rosuvastatin (CRESTOR) tablet 20 mg 20 mg, Oral, DAILY, First dose on Sun11/05/23 at 0900, Until Discontinued 814 (Given - Provider: Adelso Huber RN) 075 (Given - Provider: Raiza Bustos RN) 0733 (Given - Provider: Cornell Solomon RN) sennosides-docusate sodium (STOOL SOFTENER/LAXATIVE) 8.6-50 mg tablet 1 tablet 1 tablet, Oral, BID, First dose (after last modification) on Sun11/14/23 at 0800, Until Discontinued 813 (Given - Provider: Adelso Huber RN)2016 (Given - Provider: Tone Rosario RN) 075 (Given - Provider: Raiza Bustos RN)2056 (Given - Provider: Karolyn Jacob RN) 0733 (Given - Provider: Cornell Solomon RN) venlafaxine (EFFEXOR XR) capsule 225 mg 225 mg, Oral, DAILY, First dose on Sun11/06/23 at 1000, Until Discontinued 813 (Given - Provider: Adelso Huber RN) 0758 (Given - Provider: Raiza Bustos RN) 0732 (Given - Provider: Cornell Solomon RN) VTE Anti Xa Monitoring Does not apply, PROTOCOL, Starting on Sun11/07/23 at 1354, Until Sun11/16/23 at 1221 PRN Medication Order 11/14/2023 11/15/2023 11/16/2023 acetaminophen tablet 650 mg 650 mg, Oral, Q6H PRN, Starting on Sun11/05/23 at 0859, Until Sun11/16/23 at 1221, Mild Pain (Use First) 0041 (Not Given (removes Due time) - Provider: Luisa Pablo RN - Reason: Held per nurse) ondansetron (ZOFRAN ODT) disintegrating tablet 4 mg 4 mg, Oral, TID PRN, Starting on 11/06/23 at 1020, Until Sun11/16/23 at 1221, Nausea/Vomiting (Use First) Linked Groups Order Group 1: DC MED REC REVIEW BY PHARMACYJump to med Discharge Date: 11/09/2023, Discharge Location: [facility]acute Rehab, Anticipated Discharge Time: 10 am - 2 pm, Discharge Medication Orders: DC Med Orders Final, Does not apply, PROTOCOL, Starting on Va 11/08/23 at 0856, Until 11/16/23 at 1221 And Discharge Med Rec Final Review by Pharmacy (COMPLETED) Routine, Order to be placed by provider after medications have been entered for discharge and are ready for review by Pharmacist. This order can be placed multiple times if changes or additions have been made to medications for discharge. Choose the Preliminary DC Med Rec review when placing orders prior to the day of discharge. Choose Final DC Med Rec when all medication changes have been entered. If DC Med Rec needed now, please page the Pharmacist covering the patient to inform them., Discharge Date: 11/09/2023, Discharge Location: [facility]acute [facility]hab, Anticipated Discharge Time: 10 am - 2 pm documented in this encounter Care Teams Medical Examiner Relationship Specialty Start Date End Date Eloise Reeves DO [address] [place] [address] PCP - General Family Medicine 11/06/23 documented as of this encounter
--- OUTSIDE RECORDS SUMMARY | 2023-12-10 00:56 | XMS_ITS | Clinical Summary ---
Author Name Unknown Organization [facility] Address [place], [place] [address] Care Team Providers Care Grinder Set Up Operator Name Role Phone Eloise Reeves Primary Care Provider [phone] Allergies Active Allergy Reactions Criticality Noted Date Comments Adhesive Tape-Silicones Rash 12/31/2019 Morphine Rash 12/31/2019 Topiramate Hallucinations 06/01/2020 Medications Medication Sig Dispensed Refills Start Date End Date Status diphenhydrAMINE-kirstin taminophen 25-500 mg (TYLENOL PM EXTRA STRENGTH) 25-500 mg tablet Take 1 tablet by mouth at bedtime if needed. Max acetaminophen dose: 4000mg in 24 hrs. 0 05/04/2020 Active blood-glucose meterIndications:Co ntrolled type 2 diabetes mellitus without complication, without long-term current use of insulin (HC) Dispense meter, test strips, lancets covered by pt ins. E11.9 NIDDM type II - Test 2 times/day. Reason: not feeling well 1 Device 0 01/27/2021 Active lancetsIndications: Controlled type 2 diabetes mellitus without complication, without long-term current use of insulin (HC) As directed. Test 2 times per day. 100 Each 1 10/10/2021 Active blood sugar diagnostic (Blood Glucose Test) stripIndications:Co ntrolled type 2 diabetes mellitus without complication, without long-term current use of insulin (HC) As directed. Test 2 times per day. 100 Each 1 10/10/2021 Active ferrous sulfate, 65 mg elemental, tabletIndications:A nemia due to acute blood loss Take 1 Tablet (325 mg) by mouth two times daily with meals. 90 Tablet 3 09/14/2022 Active CPAPIndications:ROMAN (obstructive sleep apnea),Snoring New CPAP machine for home use at pressure: 5-18 cmw , Heated humidifier x 1 q 5 yr, Humidifier chamber x 1 q 6 mo, Full face mask x1 q 3mos, with cushion x 1 q mo, Heated tubing x 1 q 3 mo, Headgear x 1 q 6 mo, Filters: Disposable x 2 q mo non-disposable filters x1 q 6mo, Length of Need: 99 months, Frequency of use: Daily 1 Each 11 10/10/2022 Active venlafaxine (EFFEXOR XR) 150 mg Extended-Release capsuleIndications: Depression, recurrent (HC) Combine 75mg with 150mg to equal 225mg daily 90 Capsule 3 01/30/2023 Active omeprazole (PRILOSEC) 20 mg Delayed-Release capsuleIndications: Gastric ulcer, unspecified chronicity, unspecified whether gastric ulcer hemorrhage or perforation present Take 1 Capsule (20 mg) by mouth two times daily before meals. 180 Capsule 3 01/30/2023 Active cyanocobalamin (Vitamin B-12) 1,000 mcg tabletIndications:B 12 deficiency Take 1 Tablet (1,000 mcg) by mouth once daily. 90 Tablet 3 01/30/2023 Active venlafaxine (EFFEXOR XR) 75 mg cp24 Extended-Release capsuleIndications: Anxiety Combine 75mg with 150mg to equal 225mg daily 90 Capsule 3 01/30/2023 Active rosuvastatin (CRESTOR) 20 mg tabletIndications:H yperlipidemia, unspecified hyperlipidemia type Take 1 Tablet (20 mg) by mouth at bedtime. 90 Tablet 3 02/03/2023 Active losartan (COZAAR) 25 mg tabletIndications:H TN (hypertension) Take 1 Tablet (25 mg) by mouth once daily. 90 Tablet 3 09/12/2023 Active predniSONE (DELTASONE) 5 mg tabletIndications:G out of left foot, unspecified cause, unspecified chronicity Take 1 Tablet (5 mg) by mouth once daily with a meal. 30 Tablet 0 09/13/2023 Active allopurinoL (ZYLOPRIM) 100 mg tabletIndications:G out of left foot, unspecified cause, unspecified chronicity Take 0.5 Tablets (50 mg) by mouth once daily. 45 Tablet 1 09/13/2023 Active metFORMIN (GLUCOPHAGE) 500 mg tabletIndications:U ncontrolled type 2 diabetes mellitus with hyperglycemia (HC) Take 1 Tablet (500 mg) by mouth two times daily with meals. 180 Tablet 3 11/01/2023 Active Active Problems Problem Noted Date Diagnosed Date Anemia of unknown etiology 11/06/2022 Overview: Anemia:??had guaiac positive stools in ER. had EGD and colonoscopy 04/25/22.??pathology report is available and showed negative stomach and duodenum biopsies. 4 colon polyps which came back as tubular adenomas--at least one of which is consistent with an advanced adenoma.?? Discharge Hemoglobin??from hospital??on 03/24/22 = 8.4, Hemoglobin 03/28/22 = 9.6 Is on proton pump inhibitor and iron No reflux. Hgb 05/08/22 = 9.5 Hgb 06/09/22 = 10.9 Hemoglobin 07/12/22 = 11.0 As of Oct 2022: No gastroesophogeal reflux disease.?? Is taking iron. No bloody stools. Hgb 10/31/22 = 10.1 CBC Hemoglobin 10/31/22=10.6 Ferritin borderline. Iron studies high. Peripheral smear 'Mild normocytic anemia, cannot exclude a component of iron deficiency anemia' Plan to monitor for now on iron. 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 No chemo or radiation Encounters Date Type Department Care Team Description 11/29/2023 Telephone [facility] [address] [place] [address] Eloise Reeves DO Appointment Request 11/22/2023 10:30 AM VACUUM REPAIRER Office Visit [facility] [address] [place] [address] [address] [place] [facility] Failed Appointment 11/02/2023 Telephone [facility] [address] [place] [address] Eloise Reeves DO Results 11/01/2023 1:05 PM VACUUM REPAIRER Office Visit [facility] [address] [place] [address] Eloise Reeves DO Follow Up 11/01/2023 Orders Only [facility] [address] [place] [address] Eloise Reeves DO <No scans attached> 11/01/2023 Travel 10/16/2023 10:30 AM VACUUM REPAIRER Office Visit [facility] [address] [place] [address] [address] [place] [facility] Visit 10/16/2023 Travel 10/10/2023 Telephone [facility] [place] [facility] [address] [place] [address] Twan Suresh MD Referral (Patient is ready to be scheduled. Referral consult to Neurology. ) 10/09/2023 1:05 PM VACUUM REPAIRER Office Visit [facility] [address] [place] [address] Eloise Reeves DO Follow Up; Tremors 10/09/2023 Telephone [facility] [address] [place] [address] García Driscoll MD Error-please disregard 10/09/2023 Travel 10/04/2023 10:30 AM VACUUM REPAIRER Office Visit [facility] [address] [place] [address] [address], [facility] Failed Appointment 09/28/2023 Telephone [facility] [address] [place] [address] Eloise Reeves DO Results 09/27/2023 Orders Only [facility] [address] [place] [address] Eloise Reeves DO <No scans attached> 09/26/2023 1:55 PM VACUUM REPAIRER Office Visit [facility] [address] [place] [address] Eloise Reeves DO Dizziness (1 day); Nausea (1 day); Diarrhea (1 day); Urinary Problem (frequency) 09/26/2023 Travel 09/25/2023 Telephone [facility] [address] [place] [address] Eloise Reeves DO Appointment Request (FOLLOW UP BEFORE 11-01-2023) 09/17/2023 10:30 AM VACUUM REPAIRER Office Visit [facility] [place] [address] [address], [facility] Visit 09/17/2023 Travel 09/13/2023 Telephone [facility] [address] [place] [address] Eloise Reeves DO Results 09/13/2023 Orders Only [place] [address] [address] [place] [address] Eloise Reeves DO <No scans attached> 09/12/2023 9:10 AM VACUUM REPAIRER Office Visit [place] [address] [address] [place] [address] Eloise Reeves DO Diabetes 09/12/2023 Travel from Last 3 Months Immunizations Name Administration Dates Next Due Pneumococcal Poly,23-Valent (Pneumovax) 11/23/19 08 Pneumococcal conj 13-Valent (Prevnar 13) 015 Zoster (Zostavax-ZVL, live) 10/29/2009 Family History Medical History Relation Name Comments Cancer Brother throat cancer, Cancer Father testicular Other Mother dementia Cancer-breast No Family History Relation Name Status Comments Brother Father Mother Social History Tobacco Use Types Packs/Day Years Used Date Smoking Tobacco: Never Passive Smoke Exposure: Yes Smokeless Tobacco: Never Tobacco Cessation:Counseling Given: Yes Comments:2nd hand exposure for 50 yrs Alcohol Use Standard Drinks/Week Comments Yes 0 (1 standard drink = 0.6 oz pur e alcohol) PHQ-2 Answer Date Recorded PHQ-2 TOTAL SCORE 2 11/01/2023 Social Connections Answer Date Recorded Frequency of Communication with Friends and Fami ly 0 09/26/2023 Alcohol Use Answer Date Recorded How often do you have a drink containing alcohol ? 3 05/03/2022 How many drinks containing a lcohol do you have on a typical day when you are drinking? 0 05/03/2022 How often do you have five or more drinks on one occasion? 0 05/03/2022 Financial Resource Strain Answer Date R ecorded Difficulty of Paying Living Expenses 3 09/26/2023 Difficulty of Paying Living Expenses Not on file 09/26/2023 Food Insecurity Answer Date Recorded Worried About Running Out of Food in the Last Ye ar 1 09/26/2023 Transportation Needs Answer Date Record ed Lack of Transportation (Medical) 1 09/26/2023 Housing Stability Answer Date Recorded Unable to Pay for Housing in the Last Year 1 09/26/2023 Sex and Gender Information Value Date Recorded Sex Assigned at Not on file Gender Identity Not on file Sexual Orientation Not on file Obstetrics History Para Term AB IAB SAB Ectopic Multiple Livin g Live Births 3 2 2 1 Date Outcome GA Total Labor Labor/2nd/3rd Weight Sex Delivery Anes PTL Jessica A1 A5 Name Cl in SAB SAB Last Filed Vital Signs Vital Sign Reading Time Taken Comments Blood Pressure 157/79 11/01/2023 11:36 AM VACUUM REPAIRER Pulse 83 11/01/2023 11:36 AM VACUUM REPAIRER Temperature 37.1 ??C (98.8 ??F) 04/04/2022 12:51 PM C DT Respiratory Rate 16 08/22/2022 9:54 AM CDT Oxygen Saturation 96% 11/01/2023 11:36 AM VACUUM REPAIRER Inhaled Oxygen Concentration - - Weight 67.6 kg (149 lb) 11/01/2023 11:36 AM VACUUM REPAIRER Height 142.8 cm (4' 8.22) 01/02/2023 1:43 PM CS T Body Mass Index 33.14 01/02/2023 1:43 PM VACUUM REPAIRER Plan of Treatment Upcoming Encounters Date Type Department Care Team (Late st Contact Info) Description 12/12/2023 1:05 PM VACUUM REPAIRER Office Visit [facility] [address] [place] [address] Eloise Reeves DO [address] [place] [address] Health Maintenance Due Date Last Done Comments COVID-19 vaccine series (#1) 1942 Tdap 1953 Tetanus booster 1962 Zoster (shingles) series for age 50+ (2 of 3) 12/24/2009 10/29/2009 Medicare Wellness for age 65+ 01/28/2022 01/27/2021 Influenza for age 65+ 06/29/2023 BMI (ht and wt on same day) for age 18+ 01/03/2024 01/02/2023, 08/22/2022, 10/10/2021, Additional history exists Depression screening for age 12+ 11/02/2024 11/02/2023, 11/01/2023, 03/29/2023, Additional history exists Pneumococcal series for age 65+ Completed 5, 11/23/2007 DEXA/DXA scan for age 65+ Completed 02/03/2021 Procedures Procedure Name Priority Date/Time Associated Diagnosis Comments CREATININE Routine 11/01/2023 12:37 PM VACUUM REPAIRER Gout of left foot, unspecified cause, unspecified chronicity POTASSIUM Routine 11/01/2023 12:37 PM VACUUM REPAIRER Hypokalemia URINALYSIS MICROSCOPIC Routine 09/26/2023 3:25 PM VACUUM REPAIRER Urinary frequency UA W/ SEDIMENT EXAM REFLEXED PER CRITERIA Routine 09/26/2023 3:25 PM VACUUM REPAIRER Urinary frequency BASIC METABOLIC PANEL Routine 09/26/2023 2:55 PM VACUUM REPAIRER HTN (hypertension) HEMOGLOBIN Routine 09/26/2023 2:55 PM VACUUM REPAIRER Anemia of unknown etiology SCAN CORRESP-LABORATORY RESULTS 09/12/2023 10:56 AM VACUUM REPAIRER SCAN CORRESP-IMAGING 09/12/2023 10:56 AM VACUUM REPAIRER SCAN CORRESP-IMAGING 09/12/2023 10:56 AM VACUUM REPAIRER SCAN CORRESP-IMAGING 09/12/2023 10:56 AM VACUUM REPAIRER VITAMIN B12 Add On 09/12/2023 9:30 AM VACUUM REPAIRER Hallucinations BASIC METABOLIC PANEL Add On 09/12/2023 9:30 AM VACUUM REPAIRER Hypertension IRON PLUS IRON BINDING CAP Add On 09/12/2023 9:30 AM VACUUM REPAIRER Anemia of unknown etiology FERRITIN Add On 09/12/2023 9:30 AM VACUUM REPAIRER Anemia of unknown etiology TSH WITH REFLEX Add On 09/12/2023 9:30 AM VACUUM REPAIRER Hallucinations Other fatigue HEMOGLOBIN Routine 09/12/2023 9:30 AM VACUUM REPAIRER Anemia of unknown etiology URIC ACID Routine 09/12/2023 9:30 AM VACUUM REPAIRER History of gout POTASSIUM Routine 09/12/2023 9:30 AM VACUUM REPAIRER Hypertension CREATININE Routine 09/12/2023 9:30 AM VACUUM REPAIRER Hypertension HEMOGLOBIN A1C Routine 09/12/2023 9:30 AM VACUUM REPAIRER Controlled type 2 diabetes mellitus without complication, without long-term current use of insulin (HC) from Last 3 Months Results * POTASSIUM (11/01/2023 12:37 PM VACUUM REPAIRER) Only the most recent of2 resultswithin the time period is included. POTASSIUM 3.5 3.5 - 5.1 mmol/L 11/01/2023 9:42 PM VACUUM REPAIRER [facility] Blood BLOOD SPECIMEN / Unknown Venipuncture / Unknown 11/01/2023 12:37 PM VACUUM REPAIRER 11/01/2023 12:39 PM VACUUM REPAIRER Eloise Reeves DO CHEMISTRY Performing Organization Address City/[facility] Co de Phone Number [facility] [address] [place] [address], * (ABNORMAL) CREATININE (11/01/2023 12:37 PM VACUUM REPAIRER) Only the most recent of2 resultswithin the time period is included. Pathologist [facility] [place] eGFR 73(L) >90 mL/min/1.7 3m2 11/01/2023 9:42 PM VACUUM REPAIRER [facility] Comment:As of 2022, eG FR is calculated by the CKD-EPI creatinine equation without race adjustment. ??eGFR can be influenced by muscle mass, exercise, and diet. ??The reported eGFR is an estimation only and is only applicable if the renal function is stable. CREATININE 0.81 0.50 - 0.90 mg/dL 11/01/2023 9:42 PM VACUUM REPAIRER [facility] Blood BLOOD SPECIMEN / Unknown Venipuncture / Unknown 11/01/2023 12:37 PM VACUUM REPAIRER 11/01/2023 12:39 PM VACUUM REPAIRER Eloise Reeves DO CHEMISTRY Performing Organization Address City/[facility]/ZIP Co de Phone Number [facility] [address] [place] [address], [place] * URINALYSIS MICROSCOPIC (09/26/2023 3:25 PM VACUUM REPAIRER) Pathologist [facility] [place] RBC 0-2 0-2, None Seen /HPF 09/26/2023 3:35 PM VACUUM REPAIRER [facility] WBC 0-2 0-2, 3-5, None Seen /HPF 09/26/2023 3:35 PM VACUUM REPAIRER [facility] BACTERIA Few None Seen, Rare, Few Bacteria/H PF 09/26/2023 3:35 PM VACUUM REPAIRER [facility] EPITHELIAL CELLS Few None Seen, Few Epi/HPF 09/26/2023 3:35 PM VACUUM REPAIRER [facility] Mucus Present 09/26/2023 3:35 PM VACUUM REPAIRER [facility] HYALINE CASTS 0-2 0-2, 3-5 /LPF 09/26/2023 3:35 PM VACUUM REPAIRER [facility] Urine URINE SPECIMEN / Unknown Non-Blood / Unknown 09/26/2023 3:25 PM VACUUM REPAIRER 09/26/2023 3:25 PM VACUUM REPAIRER Narrative [facility] - 09/26/2023 3:35 PM VACUUM REPAIRER <1.5 ml. ??QNS for accurate microscopic exam. ??Microscopic done on unspun urine. Eloise Reeves DO URINE [facility] [address] [place] [address], * (ABNORMAL) UA W/ SEDIMENT EXAM REFLEXED PER CRITERIA (09/26/2023 3:25 PM VACUUM REPAIRER) COLOR Yellow Yellow Color 09/26/2023 3:33 PM VACUUM REPAIRER [facility] CLARITY Clear Clear Clarity 09/26/2023 3:33 PM VACUUM REPAIRER [facility] SPECIFIC GRAVITY,URINE >=1.030(A) 1.010, 1.015, 1.020, 1.025 09/26/2023 3:33 PM VACUUM REPAIRER [facility] PH,URINE 5.5 6.0, 7.0, 8.0, 5.5, 6.5, 7.5, 8.5 09/26/2023 3:33 PM VACUUM REPAIRER [facility] UROBILINOGEN,QU ALITATIVE Normal Normal EU/dl 09/26/2023 3:33 PM VACUUM REPAIRER [facility] PROTEIN, URINE 30(A) Negative mg/dL 09/26/2023 3:33 PM VACUUM REPAIRER [facility] GLUCOSE, URINE Negative Negative mg/dL 09/26/2023 3:33 PM VACUUM REPAIRER [facility] KETONES,URINE 15(A) Negative mg/dL 09/26/2023 3:33 PM VACUUM REPAIRER [facility] BILIRUBIN,URINE Abnormal(A) Negative 09/26/20 3:33 PM VACUUM REPAIRER [facility] Comment:A variety of metabol ites and/or medications may result in a positive bilirubin result. Clinical correlation is recommended. OCCULT BLOOD,URINE Negative Negative 09/26/2023 3:33 PM VACUUM REPAIRER [facility] NITRITE Negative Negative 09/26/2023 3:33 PM VACUUM REPAIRER [facility] LEUKOCYTE ESTERASE Negative Negative 09/26/2023 3:33 PM VACUUM REPAIRER [facility] Urine URINE SPECIMEN / Unknown Non-Blood / Unknown 09/26/2023 3:25 PM VACUUM REPAIRER 09/26/2023 3:25 PM VACUUM REPAIRER Eloise Reeves DO URINE Performing Organization Address City/[facility] Co de Phone Number [address] [address], * (ABNORMAL) HEMOGLOBIN (09/26/2023 2:55 PM VACUUM REPAIRER) Only the most recent of2 resultswithin the time period is included. HEMOGLOBIN 10.9(L) 12.0 - 16.0 g/dL 09/26/2023 3:04 PM VACUUM REPAIRER [facility] MCV 82 80 - 100 fL 09/26/2023 3:04 PM VACUUM REPAIRER [facility] Blood BLOOD SPECIMEN / Unknown Venipuncture / Unknown 09/26/2023 2:55 PM VACUUM REPAIRER 09/26/2023 2:56 PM VACUUM REPAIRER Eloise Cheri Lala BUSBY HEMATOLOGY Performing Organization Address City/[facility]/ZIP Co de Phone Number [facility] [address] [place] [address], [place] [phone] * (ABNORMAL) BASIC METABOLIC PANEL (09/26/2023 2:55 PM VACUUM REPAIRER) Only the most recent of2 resultswithin the time period is included. SODIUM 140 136 - 145 mmol/L 09/26/2023 10:22 PM [facility] POTASSIUM 3.3(L) 3.5 - 5.1 mmol/L 09/26/2023 10:22 PM [facility] CHLORIDE 101 98 - 107 mmol/L 09/26/2023 10:22 PM [facility] CO2,TOTAL 26 22 - 29 mmol/L 09/26/2023 10:22 PM [facility] ANION GAP 13 5 - 18 09/26/2023 10:22 PM [facility] GLUCOSE 112(H) 70 - 99 mg/dL 09/26/2023 10:22 PM [facility] CALCIUM 9.7 8.8 - 10.2 mg/dL 09/26/2023 10:22 PM [facility] BUN 17 8 - 23 mg/dL 09/26/2023 10:22 PM [facility] CREATININE 1.08(H) 0.50 - 0.90 mg/dL 09/26/2023 10:22 PM [facility] BUN/CREAT RATIO 16 10 - 20 10:22 PM [facility] eGFR 52(L) >90 mL/min/1.7 3m2 09/26/2023 10:22 PM [facility] Comment:As of 2022, eG FR is calculated by the CKD-EPI creatinine equation without race adjustment. ??eGFR can be influenced by muscle mass, exercise, and diet. ??The reported eGFR is an estimation only and is only applicable if the renal function is stable. Blood BLOOD SPECIMEN / Unknown Venipuncture / Unknown 09/26/2023 2:55 PM VACUUM REPAIRER 09/26/2023 2:56 PM VACUUM REPAIRER Eloise Reeves DO CHEMISTRY [facility] [address] [place] [address], * SCAN CORRESP-LABORATORY RESULTS (09/12/2023 10:56 AM VACUUM REPAIRER) Narrative 09/12/2023 10:56 AM VACUUM REPAIRER Ordered by an unspecified provider. Other Clinical Staff OTHER * SCAN CORRESP-IMAGING (09/12/2023 10:56 AM VACUUM REPAIRER) Only the most recent of3 resultswithin the time period is included. Anatomical Region Laterality Modality Other Narrative 09/12/2023 10:56 AM VACUUM REPAIRER Ordered by an unspecified provider. Other Clinical Staff OTHER * TSH WITH REFLEX (09/12/2023 9:30 AM VACUUM REPAIRER) TSH 0.72 0.27 - 4.20 uIU/mL 09/12/2023 6:43 PM VACUUM REPAIRER [facility] Blood BLOOD SPECIMEN / Unknown Venipuncture / Unknown 09/12/2023 9:30 AM VACUUM REPAIRER 09/12/2023 9:33 AM VACUUM REPAIRER Narrative [facility] - 09/12/2023 6:43 PM VACUUM REPAIRER In Adults, TSH values between 5.00 and 10.00 uIU/ml do not necessarily indicate the presence of Hypothyroidism. Correlation with clinical findings such as presence of goiter and/or Thyroperoxidase (TPO) Antibody may be helpful. For more information please refer to NIKKIE 2004; 291: 228-238. Eloise Reeves DO CHEMISTRY [facility] [address] [place] [address], * (ABNORMAL) IRON PLUS IRON BINDING CAP (09/12/2023 9:30 AM VACUUM REPAIRER) IRON 35(L) 37 - 145 ug/dL 09/12/2023 6:43 PM VACUUM REPAIRER [facility] UIBC (UNSATURATED) 277 112 - 347 ug/dL 09/12/2023 6:43 PM VACUUM REPAIRER [facility] IRON BINDING CAPACITY 312 250 - 400 ug/dL 09/12/2023 6:43 PM VACUUM REPAIRER [facility] IRON,% SATURATION 11(L) 14 - 50 % 09/12/2023 6:43 PM VACUUM REPAIRER [facility] Blood BLOOD SPECIMEN / Unknown Venipuncture / Unknown 09/12/2023 9:30 AM VACUUM REPAIRER 09/12/2023 9:33 AM VACUUM REPAIRER Eloise Reeves DO CHEMISTRY Performing Organization Address [facility] Co de Phone Number [facility] [address] [place] [address], * (ABNORMAL) URIC ACID (09/12/2023 9:30 AM VACUUM REPAIRER) URIC ACID 9.4(H) 2.4 - 5.7 mg/dL 09/12/2023 7:06 PM VACUUM REPAIRER [facility] Blood BLOOD SPECIMEN / Unknown Venipuncture / Unknown 09/12/2023 9:30 AM VACUUM REPAIRER 09/12/2023 9:33 AM VACUUM REPAIRER Eloise Reeves DO CHEMISTRY Performing Organization Address [facility] de Phone Number [facility] [address] * (ABNORMAL) HEMOGLOBIN A1C MONITORING (POCT) (09/12/2023 9:30 AM VACUUM REPAIRER) HEMOGLOBIN A1C MONITORING (POCT) 8.4(H) <=6.4 % 09/12/2023 10:00 AM VACUUM REPAIRER [facility] Blood BLOOD SPECIMEN / Unknown Venipuncture / Unknown 09/12/2023 9:30 AM VACUUM REPAIRER 09/12/2023 9:33 AM VACUUM REPAIRER Narrative [facility] - 09/12/2023 10:00 AM VACUUM REPAIRER ? (<=6.9%) ? Indicates good control ? (7.0% to 7.9%) ? Indicates fair control ? (>=8.0%) ? Indicates poor control ?? NOTE: ??These thresholds are guidelines and ?individual targets may vary. Falsely low levels may be seen with: Recent Transfusion, Recent Significant Blood Loss, Hemolytic Diseases, or Falsely elevated levels may be seen with: Untreated Anemias, Splenectomy ? Eloise Reeves DO CHEMISTRY [facility] [address] [place] [address], * FERRITIN (09/12/2023 9:30 AM VACUUM REPAIRER) FERRITIN 26.8 15.0 - 150.0 ng/mL 09/12/2023 6:43 PM VACUUM REPAIRER [facility] Blood BLOOD SPECIMEN / Unknown Venipuncture / Unknown 09/12/2023 9:30 AM VACUUM REPAIRER 09/12/2023 9:33 AM VACUUM REPAIRER Eloise Reeves DO CHEMISTRY Performing Organization Address [facility] de Phone Number [facility] [address] [place] [address], * (ABNORMAL) VITAMIN B12 (09/12/2023 9:30 AM VACUUM REPAIRER) VITAMIN B12 1,253(H) 232 - 1,245 pg/mL 09/12/2023 6:43 PM VACUUM REPAIRER [facility] Blood BLOOD SPECIMEN / Unknown Venipuncture / Unknown 09/12/2023 9:30 AM VACUUM REPAIRER 09/12/2023 9:33 AM VACUUM REPAIRER Narrative [facility] - 09/12/2023 6:43 PM VACUUM REPAIRER Biotin supplements may cause clinically significant interference for this test assay. ??If interference is suspected, it is strongly recommended that biotin is discontinued for at least one week prior to retesting. Eloise Reeves DO CHEMISTRY Performing Organization Address City/[facility] Co de Phone Number [facility] [address] [place] [address], from Last 3 Months Care Teams Grinder Set Up Operator Relationship Specialty Start Date End Date Eloise Reeves DO [address] [place] [address] PCP - General Family Practice 05/13/20
--- OUTSIDE RECORDS SUMMARY | 2023-12-10 00:56 | XMS_ITS | Encounter Summary ---
Author Name Unknown Organization [facility] Address [address] [place] [phone] Phone Care Team Providers Care Director Of Investigations Name Role Phone Eloise Reeves DO Primary Care Provider [phone] Encounter Details Date Type Department Care Team (Late st Contact Info) Description 11/05/2023 Orders Only Unspecified Department [place] Unknown, Provider Social History Tobacco Use Types Packs/Day Years [...] Coronavirus/COVID-19? No / Unsure 11/04/2023 10:48 PM SENIOR OPERATIONS ANALYST documented as of this encounter Plan of Treatment Not on file documented as of this encounter Procedures Procedure Name Priority Date/Time Associated Diagnosis Comments TELEMETRY STRIPS 11/05/2023 9:25 AM SENIOR OPERATIONS ANALYST documented in this encounter Results * TELEMETRY STRIPS (11/05/2023 9:25 AM SENIOR OPERATIONS ANALYST) Narrative 11/05/2023 9:25 AM SENIOR OPERATIONS ANALYST Ordered by an unspecified provider. Provider Unknown RAD ECHO documented in this encounter Visit Diagnoses Not on filedocumented in this encounter Care Teams Director Of Investigations Relationship Specialty Start Date End Date Eloise Reeves DO [address] [place] [address] PCP - General Family Medicine 11/06/23 documented as of this encounter
--- OUTSIDE RECORDS SUMMARY | 2023-12-10 00:56 | XMS_ITS | Encounter Summary ---
Author Name Unknown Organization [facility] Address [address] [place] [address] Phone Care Team Providers Care Operating Room Tech Name Role Phone Eloise Reeves DO Primary Care Provider Encounter Details Date Type Department Care Team (Late st Contact Info) Description 11/06/2023 Orders Only Unspecified Department [place] Unknown, [...] Coronavirus/COVID-19? No / Unsure 11/04/2023 10:48 PM SOIL CONSERVATION TEACHER documented as of this encounter Plan of Treatment Not on file documented as of this encounter Procedures Procedure Name Priority Date/Time Associated Diagnosis Comments TELEMETRY STRIPS 11/06/2023 8:49 AM SOIL CONSERVATION TEACHER documented in this encounter Results * TELEMETRY STRIPS (11/06/2023 8:49 AM SOIL CONSERVATION TEACHER) Narrative 11/06/2023 8:49 AM SOIL CONSERVATION TEACHER Ordered by an unspecified provider. Provider Unknown RAD ECHO documented in this encounter Visit Diagnoses Not on filedocumented in this encounter Care Teams Operating Room Tech Relationship Specialty Start Date End Date Eloise Reeves [address] [place] [address] PCP - General Family Medicine 11/06/23 documented as of this encounter
--- OUTSIDE RECORDS SUMMARY | 2023-12-10 00:56 | XMS_ITS | Encounter Summary ---
Author Name Unknown Organization [facility] Address [address] [place] [phone] Phone Care Team Providers Care Entertainment Production Professional Name Role Phone Eloise Reeves DO Primary Care Provider [phone] Encounter Details Date Type Department Care Team (Late st Contact Info) Description 11/08/2023 Orders Only Unspecified Department [place] Unknown, [...] Coronavirus/COVID-19? No / Unsure 11/04/2023 10:48 PM PARKING LOT ATTENDANT documented as of this encounter Plan of Treatment Not on file documented as of this encounter Procedures Procedure Name Priority Date/Time Associated Diagnosis Comments TELEMETRY STRIPS 11/08/2023 9:49 AM PARKING LOT ATTENDANT documented in this encounter Results * TELEMETRY STRIPS (11/08/2023 9:49 AM PARKING LOT ATTENDANT) Narrative 11/08/2023 9:49 AM PARKING LOT ATTENDANT Ordered by an unspecified provider. Provider Unknown RAD ECHO documented in this encounter Visit Diagnoses Not on filedocumented in this encounter Care Teams Entertainment Production Professional Relationship Specialty Start Date End Date Eloise Reeves DO [address] [place] [address] PCP - General Family Medicine 11/06/23 documented as of this encounter
--- OUTSIDE RECORDS SUMMARY | 2023-12-10 00:56 | XMS_ITS | Encounter Summary ---
Author Name Unknown Organization [facility] Address [address] [place] [address] Phone Care Team Providers Care Envelope Maker Name Role Phone Unavailable Primary Care Provider Unavailabl e Encounter Details Date Type Department Care Team (Latest Contact Info) Description 11/04/2023 Travel Social History Tobacco Use Types Packs/Day Years [...] Coronavirus/COVID-19? No / Unsure 11/04/2023 10:48 PM INDUSTRIAL RELATIONS COUNSELOR documented as of this encounter Plan of Treatment Not on file documented as of this encounter Visit Diagnoses Not on filedocumented in this encounter
--- OUTSIDE RECORDS SUMMARY | 2023-12-10 00:56 | XMS_ITS | Encounter Summary ---
Author Name Unknown Organization [facility] Address [address] [place] [address] Phone Care Team Providers Care Gaming Cashier Name Role Phone Eloise Reeves DO Primary Care Provider Encounter Details Date Type Department Care Team (Late st Contact Info) Description 11/07/2023 Orders Only Unspecified Department [place] Unknown, [...] Coronavirus/COVID-19? No / Unsure 11/04/2023 10:48 PM ELECTROMECHANICAL ASSEMBLER documented as of this encounter Plan of Treatment Not on file documented as of this encounter Procedures Procedure Name Priority Date/Time Associated Diagnosis Comments TELEMETRY STRIPS 11/07/2023 1:07 AM ELECTROMECHANICAL ASSEMBLER documented in this encounter Results * TELEMETRY STRIPS (11/07/2023 1:07 AM ELECTROMECHANICAL ASSEMBLER) Narrative 11/07/2023 1:07 AM ELECTROMECHANICAL ASSEMBLER Ordered by an unspecified provider. Provider Unknown RAD ECHO documented in this encounter Visit Diagnoses Not on filedocumented in this encounter Care Teams Gaming Cashier Relationship Specialty Start Date End Date Eloise Reeves DO [address] [place] [address] PCP - General Family Medicine 11/06/23 documented as of this encounter
--- OUTSIDE RECORDS SUMMARY | 2023-12-10 00:56 | XMS_ITS | Encounter Summary ---
Author Name Unknown Organization [facility] Address [address] [place] [address] Phone Care Team Providers Care Bag Sewer Name Role Phone Eloise Reeves DO Primary [...] Coronavirus/COVID-19? No / Unsure 11/04/2023 10:48 PM BODY COVERER documented as of this encounter Plan of Treatment Not on file documented as of this encounter Procedures Procedure Name Priority Date/Time Associated Diagnosis Comments TELEMETRY STRIPS 11/06/2023 1:52 AM BODY COVERER documented in this encounter Results * TELEMETRY STRIPS (11/06/2023 1:52 AM BODY COVERER) Narrative 11/06/2023 1:52 AM BODY COVERER Ordered by an unspecified provider. Provider Unknown RAD ECHO documented in this encounter Visit Diagnoses Not on filedocumented in this encounter Care Teams Bag Sewer Relationship Specialty Start Date End Date Eloise Reeves [address] [place] [address] PCP - General Family Medicine 11/06/23 documented as of this encounter
--- OUTSIDE RECORDS SUMMARY | 2023-12-10 00:56 | XMS_ITS | Encounter Summary ---
Author Name Unknown Organization [facility] Address [address] [place] [address] Phone Care Team Providers Care Department Store Manager Name Role Phone Eloise Reeves DO Primary [...] Coronavirus/COVID-19? No / Unsure 11/04/2023 10:48 PM EXECUTIVE COACH documented as of this encounter Plan of Treatment Not on file documented as of this encounter Procedures Procedure Name Priority Date/Time Associated Diagnosis Comments TELEMETRY STRIPS 11/06/2023 4:28 PM EXECUTIVE COACH documented in this encounter Results * TELEMETRY STRIPS (11/06/2023 4:28 PM EXECUTIVE COACH) Narrative 11/06/2023 4:28 PM EXECUTIVE COACH Ordered by an unspecified provider. Provider Unknown RAD ECHO documented in this encounter Visit Diagnoses Not on filedocumented in this encounter Care Teams Department Store Manager Relationship Specialty Start Date End Date Eloies Reeves [address] [place] [address] PCP - General Family Medicine 11/06/23 documented as of this encounter
--- OUTSIDE RECORDS SUMMARY | 2023-12-10 00:56 | XMS_ITS | Encounter Summary ---
Author Name Unknown Organization [facility] Address [address] [place] [address] Phone Care Team Providers Care Veterinary Physiologist Name Role Phone Eloise Reeves DO Primary [...] Coronavirus/COVID-19? No / Unsure 11/04/2023 10:48 PM DIE POLISHER documented as of this encounter Plan of Treatment Not on file documented as of this encounter Procedures Procedure Name Priority Date/Time Associated Diagnosis Comments TELEMETRY STRIPS 11/07/2023 9:29 AM DIE POLISHER documented in this encounter Results * TELEMETRY STRIPS (11/07/2023 9:29 AM DIE POLISHER) Narrative 11/07/2023 9:29 AM DIE POLISHER Ordered by an unspecified provider. Provider Unknown RAD ECHO documented in this encounter Visit Diagnoses Not on filedocumented in this encounter Care Teams Veterinary Physiologist Relationship Specialty Start Date End Date Eloise Reeves [address] [place] [address] PCP - General Family Medicine 11/06/23 documented as of this encounter
--- OUTSIDE RECORDS SUMMARY | 2023-12-10 00:56 | XMS_ITS | Encounter Summary ---
Author Name Unknown Organization [facility] Address [address] [place] [address] Phone Care Team Providers Care Absence Management Consultant Name Role Phone Eloise Reeves DO Primary Care Provider Encounter Details Date Type Department Care Team (Late st Contact Info) Description 11/09/2023 Orders Only Unspecified Department [place] Unknown, [...] Coronavirus/COVID-19? No / Unsure 11/04/2023 10:48 PM BURGLAR ALARM INSTALLER documented as of this encounter Plan of Treatment Not on file documented as of this encounter Procedures Procedure Name Priority Date/Time Associated Diagnosis Comments TELEMETRY STRIPS 11/09/2023 8:48 AM BURGLAR ALARM INSTALLER documented in this encounter Results * TELEMETRY STRIPS (11/09/2023 8:48 AM BURGLAR ALARM INSTALLER) Narrative 11/09/2023 8:48 AM BURGLAR ALARM INSTALLER Ordered by an unspecified provider. Provider Unknown RAD ECHO documented in this encounter Visit Diagnoses Not on filedocumented in this encounter Care Teams Absence Management Consultant Relationship Specialty Start Date End Date Eloise Reeves DO [address] [place] [address] PCP - General Family Medicine 11/06/23 documented as of this encounter
--- OUTSIDE RECORDS SUMMARY | 2023-12-10 00:56 | XMS_ITS | Encounter Summary ---
Author Name Unknown Organization [facility] Address [address] [place] [address] Phone Care Team Providers Care Facilities Administrator Name Role Phone Eloise Reeves DO Primary Care Provider [phone] Encounter Details Date Type Department Care Team [...] Coronavirus/COVID-19? No / Unsure 11/04/2023 10:48 PM INSTRUCTOR PAINTING documented as of this encounter Plan of Treatment Not on file documented as of this encounter Procedures Procedure Name Priority Date/Time Associated Diagnosis Comments TELEMETRY STRIPS 11/09/2023 1:21 AM INSTRUCTOR PAINTING documented in this encounter Results * TELEMETRY STRIPS (11/09/2023 1:21 AM INSTRUCTOR PAINTING) Narrative 11/09/2023 1:21 AM INSTRUCTOR PAINTING Ordered by an unspecified provider. Provider Unknown RAD ECHO documented in this encounter Visit Diagnoses Not on filedocumented in this encounter Care Teams Facilities Administrator Relationship Specialty Start Date End Date Eloise Reeves [address] [place] [address] PCP - General Family Medicine 11/06/23 documented as of this encounter
--- OUTSIDE RECORDS SUMMARY | 2023-12-10 00:56 | XMS_ITS | Encounter Summary ---
Author Name Unknown Organization [facility] Address [address] [place] [address] Phone Care Team Providers Care Coding Manager Name Role Phone Eloise Reeves DO [...] Coronavirus/COVID-19? No / Unsure 11/04/2023 10:48 PM FIELD MAP EDITOR documented as of this encounter Plan of Treatment Not on file documented as of this encounter Procedures Procedure Name Priority Date/Time Associated Diagnosis Comments TELEMETRY STRIPS 11/08/2023 7:31 PM FIELD MAP EDITOR documented in this encounter Results * TELEMETRY STRIPS (11/08/2023 7:31 PM FIELD MAP EDITOR) Narrative 11/08/2023 7:31 PM FIELD MAP EDITOR Ordered by an unspecified provider. Provider Unknown RAD ECHO documented in this encounter Visit Diagnoses Not on filedocumented in this encounter Care Teams Coding Manager Relationship Specialty Start Date End Date Eloise Reeves [address] [place] [address] PCP - General Family Medicine 11/06/23 documented as of this encounter
--- OUTSIDE RECORDS SUMMARY | 2023-12-10 00:56 | XMS_ITS | Encounter Summary ---
Author Name Unknown Organization [facility] Address [address] [place] [address] Phone Care Team Providers Care Aviation Maintenance Instructor Name Role Phone Eloise Reeves DO Primary Care Provider [phone] Encounter Details Date Type Department Care Team [...] Coronavirus/COVID-19? No / Unsure 11/04/2023 10:48 PM CIGAR MAKING SUPERVISOR documented as of this encounter Plan of Treatment Not on file documented as of this encounter Procedures Procedure Name Priority Date/Time Associated Diagnosis Comments TELEMETRY STRIPS 11/08/2023 2:59 AM CIGAR MAKING SUPERVISOR documented in this encounter Results * TELEMETRY STRIPS (11/08/2023 2:59 AM CIGAR MAKING SUPERVISOR) Narrative 11/08/2023 2:59 AM CIGAR MAKING SUPERVISOR Ordered by an unspecified provider. Provider Unknown RAD ECHO documented in this encounter Visit Diagnoses Not on filedocumented in this encounter Care Teams Aviation Maintenance Instructor Relationship Specialty Start Date End Date Eloise Reeves [address] [place] [address] PCP - General Family Medicine 11/06/23 documented as of this encounter
--- OUTSIDE RECORDS SUMMARY | 2023-12-10 00:56 | XMS_ITS | Encounter Summary ---
Author Name Unknown Organization [facility] Address [address] [place] [address] Phone Care Team Providers Care Toll Testboard Worker Name Role Phone Eloise Reeves DO Primary [...] Coronavirus/COVID-19? No / Unsure 11/04/2023 10:48 PM AUTOMOBILE BODY REPAIRER documented as of this encounter Plan of Treatment Not on file documented as of this encounter Procedures Procedure Name Priority Date/Time Associated Diagnosis Comments TELEMETRY STRIPS 11/07/2023 7:31 PM AUTOMOBILE BODY REPAIRER documented in this encounter Results * TELEMETRY STRIPS (11/07/2023 7:31 PM AUTOMOBILE BODY REPAIRER) Narrative 11/07/2023 7:31 PM AUTOMOBILE BODY REPAIRER Ordered by an unspecified provider. Provider Unknown RAD ECHO documented in this encounter Visit Diagnoses Not on filedocumented in this encounter Care Teams Toll Testboard Worker Relationship Specialty Start Date End Date Eloise Reeves [address] [place] [address] PCP - General Family Medicine 11/06/23 documented as of this encounter
[2023-12-10 00:57] LABS: Chloride* 108 mmol/L (96-114); Sodium* 144 mmol/L (135-149)
[2023-12-10 01:00] LABS: Creatinine* 0.9 mg/dL (0.5-1.5); Est. Creatinine Clearance* 45.81; Estimated Glomerular Filt Rate 64 ml/min; Potassium* 3.1 mmol/L (3.6-5.1)
[2023-12-10 01:01] LABS: Anion Gap 10 mEq/L (7-15); Blood Urea Nitrogen* 18 mg/dL (7-30); Calcium* 9.1 mg/dL (8.4-10.6); Carbon Dioxide* 26 mmol/L (20-32); Glucose* 144 mg/dL (60-115)
[2023-12-10 01:04] LABS: C Reactive Protein* 0.9 mg/dL (0.5-1.0)
[2023-12-10] MEDS: POTASSIUM CHLORIDE 10 MEQ CAPSULE ER 40 MEQ PO (01:27)
== END 2023-12-10 01:40 | disposition home or self-care (01) ==
PROVIDERS: Emergency Provider Family Medicine; PCP Family Medicine
DX: F41.9 Anxiety disorder, unspecified (principal); R25.1 Tremor, unspecified
CPT/HCPCS: 36415; 80048; 84484; 85025; 86140; 93005; 99284; A9270

== ENCOUNTER 2023-12-10 13:17 | Outpatient (CLI) | payer MEDICARE, SELFPAY ==
--- OUTSIDE RECORDS SUMMARY | 2023-12-11 20:01 | XMS_ITS | Referral Summary ---
Author Name Unknown Organization [facility] Address [address] [place] [address] Phone Care Team Providers Care Quill Picking Machine Operator Name Role Phone Eloise Reeves Sushil BUSBY Primary Care Provider [phone] Source Comments [employer] is fully rolled out on [facility] ([facility]). Last update 04/02/09.[facility] Encounters Date Type Department Care Team Description 11/27/2023 1:00 PM VACUUM EVAPORATION OPERATOR [facility] [address] [address] Leidy Velazquez, PAElodiaC Mild traumatic brain injury, with loss of consciousness of 30 minutes or less, initial encounter ([facility]) (Primary Dx); Reversed sleep wake cycle; Lack of appetite Discharge Disposition: Discharged to home or self care (routine discharge) 11/04/2023 10:39 PM VACUUM EVAPORATION OPERATOR - 11/16/2023 9:19 AM VACUUM EVAPORATION OPERATOR Hospital Encounter [facility] Surgery/Trauma/Kimmie ro [address] [place] [address] Devin Dougherty MD Petrun, Branden, MD [place], [...] Comments Blood Pressure 108/71 11/27/2023 12:54 PM VACUUM EVAPORATION OPERATOR Pulse 74 11/27/2023 12:54 PM VACUUM EVAPORATION OPERATOR Temperature 36.6 ??C (97.8 ??F) 11/16/2023 4:25 AM CS T Respiratory Rate 16 11/16/2023 4:25 AM VACUUM EVAPORATION OPERATOR Oxygen Saturation 90% 11/16/2023 4:25 AM VACUUM EVAPORATION OPERATOR Inhaled Oxygen Concentration - - Weight 61.6 kg (135 lb 12.8 oz) 024 12:54 PM VACUUM EVAPORATION OPERATOR Height 147.3 cm (4' 10) 11/05/2023 12: 03 AM VACUUM EVAPORATION OPERATOR Body Mass Index 28.38 11/05/2023 12:03 AM VACUUM EVAPORATION OPERATOR Plan of Treatment Not on file Procedures Procedure Name Priority Date/Time Associated Diagnosis Comments PANEL BASIC METABOLIC (BMP) Routine 11/16/2023 7:22 AM VACUUM EVAPORATION OPERATOR POC GLUCOSE Routine 11/16/2023 6:58 AM VACUUM EVAPORATION OPERATOR POC GLUCOSE Routine 11/15/2023 9:15 PM VACUUM EVAPORATION OPERATOR POC GLUCOSE Routine 11/15/2023 4:09 PM VACUUM EVAPORATION OPERATOR POC GLUCOSE Routine 11/15/2023 12:46 PM VACUUM EVAPORATION OPERATOR PANEL BASIC METABOLIC (BMP) Routine 11/15/2023 7:39 AM VACUUM EVAPORATION OPERATOR POC GLUCOSE Routine 11/15/2023 6:11 AM VACUUM EVAPORATION OPERATOR POC GLUCOSE Routine 11/14/2023 9:02 PM VACUUM EVAPORATION OPERATOR POC GLUCOSE Routine 11/14/2023 4:21 PM VACUUM EVAPORATION OPERATOR POC GLUCOSE Routine 11/14/2023 12:19 PM VACUUM EVAPORATION OPERATOR PANEL BASIC METABOLIC (BMP) Routine 11/14/2023 8:59 AM VACUUM EVAPORATION OPERATOR POC GLUCOSE Routine 11/14/2023 8:11 AM VACUUM EVAPORATION OPERATOR POC GLUCOSE Routine 11/13/2023 9:15 PM VACUUM EVAPORATION OPERATOR POC GLUCOSE Routine 11/13/2023 4:03 PM VACUUM EVAPORATION OPERATOR POC GLUCOSE Routine 11/13/2023 11:21 AM VACUUM EVAPORATION OPERATOR PANEL BASIC METABOLIC (BMP) Routine 11/13/2023 6:41 AM VACUUM EVAPORATION OPERATOR POC GLUCOSE Routine 11/13/2023 6:31 AM VACUUM EVAPORATION OPERATOR POC GLUCOSE Routine 11/12/2023 9:21 PM VACUUM EVAPORATION OPERATOR POC GLUCOSE Routine 11/12/2023 4:12 PM VACUUM EVAPORATION OPERATOR PANEL BASIC METABOLIC (BMP) Timed 11/12/2023 1:01 PM VACUUM EVAPORATION OPERATOR POC GLUCOSE Routine 11/12/2023 12:14 PM VACUUM EVAPORATION OPERATOR POC GLUCOSE Routine 11/12/2023 6:09 AM VACUUM EVAPORATION OPERATOR POC GLUCOSE Routine 11/11/2023 8:48 PM VACUUM EVAPORATION OPERATOR POC GLUCOSE Routine 11/11/2023 4:11 PM VACUUM EVAPORATION OPERATOR POC GLUCOSE Routine 11/11/2023 11:47 AM VACUUM EVAPORATION OPERATOR PHOSPHORUS Routine 11/11/2023 6:09 AM VACUUM EVAPORATION OPERATOR PANEL BASIC METABOLIC (BMP) Routine 11/11/2023 6:09 AM VACUUM EVAPORATION OPERATOR MAGNESIUM Routine 11/11/2023 6:09 AM VACUUM EVAPORATION OPERATOR TC LAB BLOOD DRAW BY VENIPUNCTURE Routine 11/11/2023 6:09 AM VACUUM EVAPORATION OPERATOR POC GLUCOSE Routine 11/10/2023 8:58 PM VACUUM EVAPORATION OPERATOR POC GLUCOSE Routine 11/10/2023 4:16 PM VACUUM EVAPORATION OPERATOR POC GLUCOSE Routine 11/10/2023 11:15 AM VACUUM EVAPORATION OPERATOR PHOSPHORUS Routine 11/10/2023 6:17 AM VACUUM EVAPORATION OPERATOR PANEL BASIC METABOLIC (BMP) Routine 11/10/2023 6:17 AM VACUUM EVAPORATION OPERATOR MAGNESIUM Routine 11/10/2023 6:17 AM VACUUM EVAPORATION OPERATOR PC LAB CBC/PLT Routine 11/10/2023 6:17 AM VACUUM EVAPORATION OPERATOR POC GLUCOSE Routine 11/09/2023 9:41 PM VACUUM EVAPORATION OPERATOR POC GLUCOSE Routine 11/09/2023 3:58 PM VACUUM EVAPORATION OPERATOR ANTI XA ASSAY LMW HEPARIN Timed 11/09/2023 2:18 PM VACUUM EVAPORATION OPERATOR POC GLUCOSE Routine 11/09/2023 11:28 AM VACUUM EVAPORATION OPERATOR XR FOOT RIGHT 3 V AP/OBL/LAT* Routine 11/09/2023 10:36 AM VACUUM EVAPORATION OPERATOR TELEMETRY STRIPS 11/09/2023 8:48 AM VACUUM EVAPORATION OPERATOR POC GLUCOSE Routine 11/09/2023 5:46 AM VACUUM EVAPORATION OPERATOR PC VALPROIC ACID LEVEL DEPAHOTE Routine 11/09/2023 5:41 AM VACUUM EVAPORATION OPERATOR PHOSPHORUS Routine 11/09/2023 5:41 AM VACUUM EVAPORATION OPERATOR PANEL BASIC METABOLIC (BMP) Routine 11/09/2023 5:41 AM VACUUM EVAPORATION OPERATOR MAGNESIUM Routine 11/09/2023 5:41 AM VACUUM EVAPORATION OPERATOR PC LAB CBC/PLT Routine 11/09/2023 5:41 AM VACUUM EVAPORATION OPERATOR TELEMETRY STRIPS 11/09/2023 1:21 AM VACUUM EVAPORATION OPERATOR POC GLUCOSE Routine 11/08/2023 8:40 PM VACUUM EVAPORATION OPERATOR TELEMETRY STRIPS 11/08/2023 7:31 PM VACUUM EVAPORATION OPERATOR PHOSPHORUS Routine 11/08/2023 4:20 PM VACUUM EVAPORATION OPERATOR MAGNESIUM Routine 11/08/2023 4:20 PM VACUUM EVAPORATION OPERATOR PANEL BASIC METABOLIC (BMP) Routine 11/08/2023 4:20 PM VACUUM EVAPORATION OPERATOR TC LAB BLOOD DRAW BY VENIPUNCTURE Routine 11/08/2023 4:20 PM VACUUM EVAPORATION OPERATOR POC GLUCOSE Routine 11/08/2023 3:56 PM VACUUM EVAPORATION OPERATOR POC GLUCOSE Routine 11/08/2023 11:03 AM VACUUM EVAPORATION OPERATOR TELEMETRY STRIPS 11/08/2023 9:49 AM VACUUM EVAPORATION OPERATOR XR CHEST 1 VIEW AP OR PA* Routine 11/08/2023 6:30 AM VACUUM EVAPORATION OPERATOR POC GLUCOSE Routine 11/08/2023 6:22 AM VACUUM EVAPORATION OPERATOR TELEMETRY STRIPS 11/08/2023 2:59 AM VACUUM EVAPORATION OPERATOR POC GLUCOSE Routine 11/07/2023 9:34 PM VACUUM EVAPORATION OPERATOR TELEMETRY STRIPS 11/07/2023 7:31 PM VACUUM EVAPORATION OPERATOR POC GLUCOSE Routine 11/07/2023 4:06 PM VACUUM EVAPORATION OPERATOR POC GLUCOSE Routine 11/07/2023 11:45 AM VACUUM EVAPORATION OPERATOR XR CHEST 2 VIEWS PA + LAT* Routine 11/07/2023 10:07 AM VACUUM EVAPORATION OPERATOR TELEMETRY STRIPS 11/07/2023 9:29 AM VACUUM EVAPORATION OPERATOR PC PROCALCITONIN (PCT) Routine 8:34 AM VACUUM EVAPORATION OPERATOR PC LAB CBC/PLT Routine 11/07/2023 8:34 AM VACUUM EVAPORATION OPERATOR PANEL BASIC METABOLIC (BMP) Routine 11/07/2023 8:34 AM VACUUM EVAPORATION OPERATOR MAGNESIUM Routine 11/07/2023 8:34 AM VACUUM EVAPORATION OPERATOR PHOSPHORUS Routine 11/07/2023 8:34 AM VACUUM EVAPORATION OPERATOR POC GLUCOSE Routine 11/07/2023 5:45 AM VACUUM EVAPORATION OPERATOR TELEMETRY STRIPS 11/07/2023 1:07 AM VACUUM EVAPORATION OPERATOR POC GLUCOSE Routine 11/06/2023 9:21 PM VACUUM EVAPORATION OPERATOR TELEMETRY STRIPS 11/06/2023 4:28 PM VACUUM EVAPORATION OPERATOR PC GASES,BLOOD,ANY COMB OF PH,PCD2,PO2,CO2,HCO2 Routine 11/06/2023 1:06 PM VACUUM EVAPORATION OPERATOR MAGNESIUM Timed 11/06/2023 1:06 PM VACUUM EVAPORATION OPERATOR PHOSPHORUS Timed 11/06/2023 1:06 PM VACUUM EVAPORATION OPERATOR PANEL BASIC METABOLIC (BMP) Timed 11/06/2023 1:06 PM VACUUM EVAPORATION OPERATOR PC LAB CBC/PLT Timed 11/06/2023 1:06 PM VACUUM EVAPORATION OPERATOR POC GLUCOSE Routine 11/06/2023 1:04 PM VACUUM EVAPORATION OPERATOR POC GLUCOSE Routine 11/06/2023 10:49 AM VACUUM EVAPORATION OPERATOR TELEMETRY STRIPS 11/06/2023 8:49 AM VACUUM EVAPORATION OPERATOR PC LAB GLYCOSYLATED HGB Routine 11/06/2023 6:31 AM VACUUM EVAPORATION OPERATOR PROTHROMBIN (PT) & INR Timed 6:31 AM VACUUM EVAPORATION OPERATOR PC PHOSPHORUS INORGANIC(PHOSPHATE) Routine 11/06/2023 6:31 AM VACUUM EVAPORATION OPERATOR PC MAGNESIUM, SERUM Routine 11/06/2023 6 :31 AM VACUUM EVAPORATION OPERATOR PC LAB CBC/PLT Routine 11/06/2023 6:31 AM VACUUM EVAPORATION OPERATOR TC LAB BLOOD DRAW BY VENIPUNCTURE Routine 11/06/2023 6:31 AM VACUUM EVAPORATION OPERATOR POC GLUCOSE Routine 11/06/2023 5:39 AM VACUUM EVAPORATION OPERATOR TELEMETRY STRIPS 11/06/2023 1:52 AM VACUUM EVAPORATION OPERATOR POC GLUCOSE Routine 11/05/2023 4:54 PM VACUUM EVAPORATION OPERATOR MAGNESIUM Routine 11/05/2023 4:48 PM VACUUM EVAPORATION OPERATOR POTASSIUM Routine 11/05/2023 4:48 PM VACUUM EVAPORATION OPERATOR CT HEAD NO IV CONTRAST Timed 11:44 AM VACUUM EVAPORATION OPERATOR POC GLUCOSE Routine 11/05/2023 11:11 AM VACUUM EVAPORATION OPERATOR TELEMETRY STRIPS 11/05/2023 9:25 AM VACUUM EVAPORATION OPERATOR EKG ADULT (12-LEAD) Routine 11/05/2023 6 :38 AM VACUUM EVAPORATION OPERATOR POC GLUCOSE Routine 11/05/2023 6:07 AM VACUUM EVAPORATION OPERATOR CT HEAD NO IV CONTRAST Timed 4:54 AM VACUUM EVAPORATION OPERATOR PROTHROMBIN (PT) & INR Timed 4:27 AM VACUUM EVAPORATION OPERATOR PC PHOSPHORUS INORGANIC(PHOSPHATE) Routine 11/05/2023 4:27 AM VACUUM EVAPORATION OPERATOR PC MAGNESIUM, SERUM Routine 11/05/2023 4 :27 AM VACUUM EVAPORATION OPERATOR PC GASES,BLOOD,ANY COMB OF PH,PCD2,PO2,CO2,HCO2 Routine 11/05/2023 4:27 AM VACUUM EVAPORATION OPERATOR PC LAB CBC/PLT Routine 11/05/2023 4:27 AM VACUUM EVAPORATION OPERATOR TC LAB BLOOD DRAW BY VENIPUNCTURE Routine 11/05/2023 4:27 AM VACUUM EVAPORATION OPERATOR PC TROPONIN QUANTITATIVE Timed 11/05/2023 4:27 AM VACUUM EVAPORATION OPERATOR PC TROPONIN QUANTITATIVE Timed 11/05/2023 2:58 AM VACUUM EVAPORATION OPERATOR CK, TOTAL STAT 11/05/2023 1:32 AM VACUUM EVAPORATION OPERATOR FIBRINOGEN STAT 11/05/2023 1:32 AM VACUUM EVAPORATION OPERATOR PC LAB PTT STAT 11/05/2023 1:32 AM VACUUM EVAPORATION OPERATOR PANEL HEPATIC FUNCTION STAT 1:32 AM VACUUM EVAPORATION OPERATOR PC LAB CBC/PLT STAT 11/05/2023 1:32 AM VACUUM EVAPORATION OPERATOR PANEL BASIC METABOLIC (BMP) STAT 11/05/2023 1:32 AM VACUUM EVAPORATION OPERATOR MAGNESIUM STAT 11/05/2023 1:32 AM VACUUM EVAPORATION OPERATOR PHOSPHORUS STAT 11/05/2023 1:32 AM VACUUM EVAPORATION OPERATOR PROTHROMBIN (PT) & INR STAT 1:32 AM VACUUM EVAPORATION OPERATOR PC IONIZED,CALCIUM STAT 11/05/2023 1: 18 AM VACUUM EVAPORATION OPERATOR PC LACTATE (LACTIC ACID) STAT 11/05/2023 1:18 AM VACUUM EVAPORATION OPERATOR PC GASES,BLOOD,ANY COMB OF PH,PCD2,PO2,CO2,HCO2 STAT 11/05/2023 1:18 AM VACUUM EVAPORATION OPERATOR PC TROPONIN QUANTITATIVE Timed 11/05/2023 1:18 AM VACUUM EVAPORATION OPERATOR CT HEAD-NECK - ANGIO - W/IV CON STAT 11/05/2023 12:09 AM VACUUM EVAPORATION OPERATOR PC LAB COMPLETE UA STAT 11/04/2023 11 :55 PM VACUUM EVAPORATION OPERATOR PF INSERT CATH,ART,PERCUT,SANTA ERM Routine 11/04/2023 11:43 PM VACUUM EVAPORATION OPERATOR ED EKG (12-LEAD) Routine 11/04/2023 11:2 5 PM VACUUM EVAPORATION OPERATOR CT SPINE LUMBAR NO IV CON STAT 11/04/2023 11:05 PM VACUUM EVAPORATION OPERATOR CT SPINE THORACIC NO IV CON STAT 11/04/2023 11:05 PM VACUUM EVAPORATION OPERATOR CT CHEST/ABD/PELVIS W/IV CONT STAT 11/04/2023 11:05 PM VACUUM EVAPORATION OPERATOR CT SPINE CERVICAL NO IV CON STAT 11/04/2023 11:05 PM VACUUM EVAPORATION OPERATOR CT HEAD NO IV CONTRAST STAT 11:05 PM VACUUM EVAPORATION OPERATOR XR CHEST 1 VIEW AP OR PA* STAT 11/04/2023 10:57 PM VACUUM EVAPORATION OPERATOR TC LAB ER STAT TOTAL HGB STAT 11/04/2023 10:48 PM VACUUM EVAPORATION OPERATOR PC ELECTROLYTES PANEL STAT 11/04/2023 10:48 PM VACUUM EVAPORATION OPERATOR PC HEPARIN ASSAY STAT 11/04/2023 10:4 5 PM VACUUM EVAPORATION OPERATOR EXTRA TUBE - SST Routine 11/04/2023 10:4 5 PM VACUUM EVAPORATION OPERATOR TC LAB BLOOD DRAW BY VENIPUNCTURE Routine 11/04/2023 10:45 PM VACUUM EVAPORATION OPERATOR PC TROPONIN QUANTITATIVE STAT 11/04/2023 10:45 PM VACUUM EVAPORATION OPERATOR PC LAB PTT STAT 11/04/2023 10:45 PM VACUUM EVAPORATION OPERATOR PC LAB ED INR STAT 11/04/2023 10:45 PM VACUUM EVAPORATION OPERATOR PRECAUTIONARY TUBE STAT 11/04/2023 10 :45 PM VACUUM EVAPORATION OPERATOR PC LACTATE (LACTIC ACID) STAT 11/04/2023 10:45 PM VACUUM EVAPORATION OPERATOR FIBRINOGEN STAT 11/04/2023 10:45 PM VACUUM EVAPORATION OPERATOR PC LAB CBC W/DIFF & PLT STAT 11/04/2023 10:45 PM VACUUM EVAPORATION OPERATOR PC GASES,BLOOD,ANY COMB OF PH,PCD2,PO2,CO2,HCO2 STAT 11/04/2023 10:45 PM VACUUM EVAPORATION OPERATOR ED US CRITICAL CARE STAT 11/04/2023 1 0:40 PM VACUUM EVAPORATION OPERATOR PANEL LIPID Routine 10/10/2021 11:08 AM VACUUM EVAPORATION OPERATOR from Last 3 Months or Most Recently Relevant to Health Maintenance Results * (ABNORMAL) PANEL BASIC METABOLIC (BMP) (11/16/2023 7:22 AM VACUUM EVAPORATION OPERATOR) Only the most recent of12 resultswithin the time period is included. Sodium 143 135 - 148 mEq/L [facility] Potassium 3.9 3.5 - 5.3 mEq/L [facility] Chloride 105 92 - 108 mEq/L [facility] CO2 27 22 - 30 mEq/L [facility] AnGap 11 8 - 16 mEq/L [facility] Glucose 87 70 - 100 mg/dL [facility] BUN 23 8 - 23 mg/dL [facility] Creatinine 1.19(H) 0.50 - 1.00 mg/dL [facility] Calcium 9.4 8.8 - 10.2 mg/dL [facility] eGFR (2020 CKD-EPI) 46(L) >=60 ml/min/1.7 3m2 [facility] Comment: The estimated glomerular filtration rate (eGFR) was calculated using the CKD-EPI 2020 creatinine equation, which does not include race as a factor. This equation is validated in individuals 18 years of age and older, and eGFR is normalized to a body surface area of 1.73m^2. Blood 11/16/2023 7:22 AM VACUUM EVAPORATION OPERATOR 11/16/2023 7:43 AM VACUUM EVAPORATION OPERATOR Jesusita Aiken APRN, CNP LABORATO RY [facility] [address] [address] * POC GLUCOSE (11/16/2023 6:58 AM VACUUM EVAPORATION OPERATOR) Only the most recent of42 resultswithin the time period is included. POC Glucose 84 70 - 100 mg/dL [facility] [place] - POINT OF CARE Blood 11/16/2023 6:58 AM VACUUM EVAPORATION OPERATOR Devin Dougherty MD LABORATORY [facility] - POINT OF CARE [address] [place] [id number], * PHOSPHORUS (11/11/2023 6:09 AM VACUUM EVAPORATION OPERATOR) Only the most recent of7 resultswithin the time period is included. Phosphorus 3.5 2.5 - 4.5 mg/dL [facility] Blood 11/11/2023 6:09 AM VACUUM EVAPORATION OPERATOR 11/11/2023 6:36 AM VACUUM EVAPORATION OPERATOR Quinn Covarrubias MD LABORATORY Performing Organization Address City/[facility]/ZIP Co de Phone Number [facility] [address] [address] * MAGNESIUM (11/11/2023 6:09 AM VACUUM EVAPORATION OPERATOR) Only the most recent of8 resultswithin the time period is included. Pathologist [facility] Magnesium 2.2 1.6 - 2.4 mg/dL [facility] Blood 11/11/2023 6:09 AM VACUUM EVAPORATION OPERATOR 11/11/2023 6:36 AM VACUUM EVAPORATION OPERATOR Quinn Covarrubias MD LABORATORY Performing Organization Address City/[facility] Co de Phone Number [facility] [address] [address] * (ABNORMAL) CBC WITH PLATELET (11/11/2023 6:09 AM VACUUM EVAPORATION OPERATOR) Only the most recent of7 resultswithin the time period is included. Pathologist [facility] WBC 5.60 4.00 - 10.00 k/cmm [facility] RBC 3.80(L) 3.90 - 5.20 m/cmm [facility] Hgb 9.5(L) 11.5 - 15.7 g/dL [facility] Hematocrit 31.4(L) 34.0 - 45.0 % [facility] MCV 82.6 80.0 - 100.0 fL [facility] MCH 25.0 25.0 - 32.0 pg [facility] MCHC 30.3(L) 31.0 - 36.0 g/dL [facility] RDW 16.1(H) 11.5 - 14.5 % [facility] Plt 275 150 - 400 k/cmm [facility] MPV 11.8 6.5 - 12.5 fL [facility] Blood 11/11/2023 6:09 AM VACUUM EVAPORATION OPERATOR 11/11/2023 6:36 AM VACUUM EVAPORATION OPERATOR Quinn Covarrubias MD LABORATORY Performing Organization Address City/[facility]/ZIP Co de Phone Number [address] [address] * ANTI XA ASSAY LMW HEPARIN (11/09/2023 2:18 PM VACUUM EVAPORATION OPERATOR) Anti XA LMW 0.32 IU/mL [facility] Comment: Anti Xa Assay LMW Heparin Therapeutic Ranges: 0.4-1.1 IU/mL for twice daily 1.0-2.0 IU/mL for once daily Blood 11/09/2023 2:18 PM VACUUM EVAPORATION OPERATOR 11/09/2023 2:29 PM VACUUM EVAPORATION OPERATOR Quinn Covarrubias MD LABORATORY Performing Organization Address [facility] Co de Phone Number [address] [address] * XR FOOT RIGHT 3 V AP/OBL/LAT* (11/09/2023 10:36 AM VACUUM EVAPORATION OPERATOR) Anatomical Region Laterality Modality Foot Computed Radiogr aphy 11/09/2023 10:4 7 AM VACUUM EVAPORATION OPERATOR Impressions 11/09/2023 10:50 AM VACUUM EVAPORATION OPERATOR Impression: No acute osseous abnormality. Generalized osteopenia. Reading Radiologist: Angela Camp Narrative 11/09/2023 10:50 AM VACUUM EVAPORATION OPERATOR Technique: XR FOOT RIGHT 3 V [...] osteopenia. Reading Radiologist: Angela Camp Jesusita Larawuyoh GUEST RELATIONS COORDINATOR, DRAFTER APPRENTICE RAD XRAY * TELEMETRY STRIPS (11/09/2023 8:48 AM VACUUM EVAPORATION OPERATOR) Only the most recent of12 resultswithin the time period is included. Narrative 11/09/2023 8:48 AM VACUUM EVAPORATION OPERATOR Ordered by an unspecified provider. Provider Unknown RAD ECHO * (ABNORMAL) VALPROATE (DEPAKOTE) LEVEL (11/09/2023 5:41 AM VACUUM EVAPORATION OPERATOR) Valproate 31.8(L) 50.0 - 100.0 mcg/mL [facility] Blood 11/09/2023 5:41 AM VACUUM EVAPORATION OPERATOR 11/09/2023 8:19 AM VACUUM EVAPORATION OPERATOR Quinn Covarrubias MD LABORATORY [facility] [address] [address] * XR CHEST 1 VIEW AP OR PA* (11/08/2023 6:30 AM VACUUM EVAPORATION OPERATOR) Only the most recent of2 resultswithin the time period is included. Anatomical Region Laterality Modality Chest Computed Radiogr aphy 11/08/2023 6:56 AM VACUUM EVAPORATION OPERATOR Impressions 11/08/2023 7:24 AM VACUUM EVAPORATION OPERATOR Impression: Stable chest. I have personally reviewed the image(s) and initial interpretation, and I agree with the findings as documented by the resident/fellow. Reading Radiologist: Ronal Hidalgo Reading Resident: Laith Berkowitz Narrative 11/08/2023 7:24 AM VACUUM EVAPORATION OPERATOR Technique: XR CHEST 1 VIEW AP [...] VIEWS PA + LAT* (11/07/2023 10:07 AM VACUUM EVAPORATION OPERATOR) Anatomical Region Laterality Modality Chest Computed Radiogr aphy 11/07/2023 10:0 9 AM VACUUM EVAPORATION OPERATOR Impressions 11/07/2023 10:10 AM VACUUM EVAPORATION OPERATOR Impression: New left basilar opacities with small effusion concerning for developing infection. Reading Radiologist: Phil Contreras Narrative 11/07/2023 10:10 AM VACUUM EVAPORATION OPERATOR Technique: XR CHEST 2 VIEWS PA [...] RAD XRAY * PROCALCITONIN (11/07/2023 8:34 AM VACUUM EVAPORATION OPERATOR) Procalcitonin 0.12 ng/mL [facility] Comment: Results <0.50 ng/mL represent a low risk of severe sepsis and/or septic shock. Results >2.0 ng/mL represent a high risk of severe sepsis and/or septic shock. Blood 11/07/2023 8:34 AM VACUUM EVAPORATION OPERATOR 11/07/2023 8:40 AM VACUUM EVAPORATION OPERATOR Quinn Covarrubias MD LABORATORY [facility] [address] [address] * (ABNORMAL) BLOOD GASES (11/06/2023 1:06 PM VACUUM EVAPORATION OPERATOR) Only the most recent of3 resultswithin the time period is included. PH Jalen 7.36 7.32 - 7.42 [facility] PCO2 Jalen 48 41 - 51 mmHG [facility] PO2 Jalen 86(H) 25 - 40 mmHG [facility] Bicarb Jalen 26 24 - 28 mEq/L [facility] O2 Sat Jalen 96 % [facility] Base Exc Jalen 1.0 -10.0 - 2.0 mEq/L [facility] Blood Venous 11/06/2023 1:06 PM VACUUM EVAPORATION OPERATOR 11/06/2023 1:10 PM VACUUM EVAPORATION OPERATOR Narrative [facility] - 11/06/2023 1:16 PM VACUUM EVAPORATION OPERATOR Draw on Room Air: No O2 LPM (liter/min) Level->4 via mask FiO2 Level: 100 Quinn Covarrubias MD LABORATORY Performing Organization Address City/[facility]/ZIP Co de Phone Number [facility] [address] [address] * (ABNORMAL) ICU MAGNESIUM (11/06/2023 6:31 AM VACUUM EVAPORATION OPERATOR) Only the most recent of2 resultswithin the time period is included. Magnesium 2.5(H) 1.6 - 2.4 mg/dL [facility] Blood 11/06/2023 6:31 AM VACUUM EVAPORATION OPERATOR 11/06/2023 7:37 AM VACUUM EVAPORATION OPERATOR Devin Dougherty MD LABORATORY Performing Organization Address City/[facility]/ZIP Co de Phone Number [facility] [address] [address] * ICU PHOSPHORUS (11/06/2023 6:31 AM VACUUM EVAPORATION OPERATOR) Only the most recent of2 resultswithin the time period is included. Phosphorus 4.1 2.5 - 4.5 mg/dL [facility] Blood 11/06/2023 6:31 AM VACUUM EVAPORATION OPERATOR 11/06/2023 7:37 AM VACUUM EVAPORATION OPERATOR Devin Dougherty MD LABORATORY [facility] [address] [address] * (ABNORMAL) ICU CBC WITH PLATELET (11/06/2023 6:31 AM VACUUM EVAPORATION OPERATOR) Only the most recent of2 resultswithin the time period is included. WBC 9.06 4.00 - 10.00 k/cmm [facility] RBC 3.77(L) 3.90 - 5.20 m/cmm [facility] Hgb 9.6(L) 11.5 - 15.7 g/dL [facility] Hematocrit 30.8(L) 34.0 - 45.0 % [facility] MCV 81.7 80.0 - 100.0 fL [facility] MCH 25.5 25.0 - 32.0 pg [facility] MCHC 31.2 31.0 - 36.0 g/dL [facility] RDW 15.9(H) 11.5 - 14.5 % [facility] Plt 284 150 - 400 k/cmm [facility] MPV 12.1 6.5 - 12.5 fL [facility] Blood 11/06/2023 6:31 AM VACUUM EVAPORATION OPERATOR 11/06/2023 7:37 AM VACUUM EVAPORATION OPERATOR Devin Dougherty MD LABORATORY Performing Organization Address City/[facility] Co de Phone Number [facility] [address] [address] * (ABNORMAL) ICU PANEL BASIC METABOLIC (BMP) (11/06/2023 6:31 AM VACUUM EVAPORATION OPERATOR) Only the most recent of2 resultswithin the time period is included. Sodium 142 135 - 148 mEq/L [facility] Potassium 3.7 3.5 - 5.3 mEq/L [facility] Chloride 107 92 - 108 mEq/L [facility] CO2 26 22 - 30 mEq/L [facility] AnGap 9 8 - 16 mEq/L [facility] Glucose 148(H) 70 - 100 mg/dL [facility] BUN 12 8 - 23 mg/dL [facility] Creatinine 0.77 0.50 - 1.00 mg/dL [facility] Calcium 8.7(L) 8.8 - 10.2 mg/dL [facility] eGFR (2020 CKD-EPI) 77 >=60 ml/min/1.7 3m2 [facility] Comment: The estimated glomerular filtration rate (eGFR) was calculated using the CKD-EPI 2020 creatinine equation, which does not include race as a factor. This equation is validated in individuals 18 years of age and older, and eGFR is normalized to a body surface area of 1.73m^2. Blood 11/06/2023 6:31 AM VACUUM EVAPORATION OPERATOR 11/06/2023 7:37 AM VACUUM EVAPORATION OPERATOR Devin Dougherty MD LABORATORY Performing Organization Address [facility] Co de Phone Number [facility] [address] [address] * PROTHROMBIN (PT) & INR (11/06/2023 6:31 AM VACUUM EVAPORATION OPERATOR) Only the most recent of3 resultswithin the time period is included. PT 11.4 9.0 - 12.5 sec [facility] INR 1.0 0.8 - 1.1 [facility] Comment: Warfarin Therapeutic Range: Standard Intensity: 2.0 - 3.0 High Intensity: 2.5 - 3.5 Blood 11/06/2023 6:31 AM VACUUM EVAPORATION OPERATOR 11/06/2023 7:37 AM VACUUM EVAPORATION OPERATOR Quinn Covarrubias MD LABORATORY Performing Organization Address [facility] Co de Phone Number [facility] [address] [address] * (ABNORMAL) GLYCOSYLATED HGB - A1C (11/06/2023 6:31 AM VACUUM EVAPORATION OPERATOR) Hemoglobin A1C 8.1(H) 4.0 - 5.6 % [facility] Comment: Increased risk for diabetes (prediabetes): 5.7-6.4% Diabetes: greater than or equal to 6.5% * * In the absence of unequivocal hyperglycemia, diagnosis requires two abnormal test results (i.e. HbA1c and glucose) or two abnormal results from specimens collected at two different timepoints. Estimated Average Glucose 186(H) 68 - 114 [facility] Comment: The ADA recommends reporting an estimated Average Glucose (eAG) with all hemoglobin A1c results using the equation derived from a study of 501 normal diabetic adults. Minority populations were underrepresented and children were not included. The EAG is not equivalent to a fasting glucose. Blood 11/06/2023 6:31 AM VACUUM EVAPORATION OPERATOR 11/06/2023 11:28 AM VACUUM EVAPORATION OPERATOR Quinn Covarrubias MD LABORATORY Performing Organization Address City/[facility] Co de Phone Number [address] [address] * (ABNORMAL) POTASSIUM (11/05/2023 4:48 PM VACUUM EVAPORATION OPERATOR) Potassium 3.2(L) 3.5 - 5.3 mEq/L [facility] Blood 11/05/2023 4:48 PM VACUUM EVAPORATION OPERATOR 11/05/2023 4:58 PM VACUUM EVAPORATION OPERATOR Quinn Covarrubias MD LABORATORY Performing Organization Address [facility] Co de Phone Number [address] [address] * CT HEAD NO IV CONTRAST (11/05/2023 11:44 AM VACUUM EVAPORATION OPERATOR) Only the most recent of3 resultswithin the time period is included. Anatomical Region Laterality Modality Skull Computed Tomogra phy 11/05/2023 12:1 6 PM VACUUM EVAPORATION OPERATOR Impressions 11/05/2023 12:38 PM VACUUM EVAPORATION OPERATOR Impression: Stable head CT as compared to the study performed 7 hours earlier. Intra-axial and extra-axial hemorrhage(s) without midline shift or hydrocephalus. The basal cisterns are patent. Reading Radiologist: Ford Fernández 11/05/2023 12:38 PM VACUUM EVAPORATION OPERATOR Exam: Head CT without contrast, 11/05/2023 [...] * EKG ADULT (12-LEAD) (11/05/2023 6:38 AM VACUUM EVAPORATION OPERATOR) 11/05/2023 6:38 AM VACUUM EVAPORATION OPERATOR Impressions [facility] CVIS EKG ORDERS - 11/05/2023 6:38 AM VACUUM EVAPORATION OPERATOR SINUS RHYTHM RIGHT BUNDLE BRANCH BLOCK ??[120+ ms QRS DURATION, UPRIGHT V1, 40+ ms S IN I/aVL/V4/V5/V6] ABNORMAL ECG P-R Interval 151 ms QRS Interval 128 ms QT Interval 420 ms QTC Interval 462 ms P [place] 9 QRS [place] 27 T Wave [place] 70 Narrative Procedure Note Lauren Mills MD - 11/06/2023 IMPRESSION SINUS RHYTHM RIGHT BUNDLE BRANCH BLOCK [120+ ms QRS DURATION, UPRIGHT V1, 40+ ms S INI/aVL/V4/V5/V6] ABNORMAL ECG P-R Interval 151 ms QRS Interval 128 ms QT Interval 420 ms QTC Interval 462 ms P [place] 9 QRS [place] 27 T Wave [place] 70 Quinn Covarrubias MD EKG [facility] CVIS EKG ORDERS * (ABNORMAL) ICU BLOOD GAS (11/05/2023 4:27 AM VACUUM EVAPORATION OPERATOR) PH Art 7.38 7.35 - 7.45 [facility] PCO2 Art 42 35 - 45 mmHG [facility] PO2 Art 99(H) 75 - 85 mmHG [facility] Bicarb Art 25 22 - 26 mEq/L [facility] O2 Sat Art 98 96 - 99 % [facility] Base Exc Art 0.0 -10.0 - 2.0 mEq/L [facility] Blood Arterial 11/05/2023 4: 27 AM VACUUM EVAPORATION OPERATOR 11/05/2023 4:34 AM VACUUM EVAPORATION OPERATOR Devin Dougherty MD LABORATORY Performing Organization Address [facility] Co de Phone Number [facility] [address] [address] * (ABNORMAL) TROP 6H (11/05/2023 4:27 AM VACUUM EVAPORATION OPERATOR) 6H Trop 51(H) <=14 ng/L [facility] 6H Delta Significan t(A) Not Significant [facility] Blood 11/05/2023 4:27 AM VACUUM EVAPORATION OPERATOR 11/05/2023 4:35 AM VACUUM EVAPORATION OPERATOR Devin Dougherty MD LABORATORY Performing Organization Address [facility] Co de Phone Number [facility] [address] [address] * (ABNORMAL) TROP 4H (11/05/2023 2:58 AM VACUUM EVAPORATION OPERATOR) 4H Trop 39(H) <=14 ng/L [facility] 4H Delta Significan t(A) Not Significant [facility] Blood 11/05/2023 2:58 AM VACUUM EVAPORATION OPERATOR 11/05/2023 3:48 AM VACUUM EVAPORATION OPERATOR Devin Dougherty MD LABORATORY Performing Organization Address [facility] Co de Phone Number [facility] [address] [address] * (ABNORMAL) PANEL HEPATIC FUNCTION (11/05/2023 1:32 AM VACUUM EVAPORATION OPERATOR) Alk Phos 111(H) 35 - 104 IU/L [facility] Total Protein 6.5 6.4 - 8.3 g/dL [facility] Bili Direct na <=0.3 mg/dL [facility] Comment:Direct Bilirubin = < 0.2. Accuracy of result suspect due to lipemia. Albumin 3.8 3.8 - 5.1 g/dL [facility] Bili Total <0.2 <=1.2 mg/dL [facility] ALT (SGPT) na <=33 [facility] Comment:ALT = 15. Accuracy o f result suspect due to lipemia. AST(SGOT) na 5 - 40 [facility] Comment:AST = 27. Accuracy o f result suspect due to lipemia. Blood 11/05/2023 1:32 AM VACUUM EVAPORATION OPERATOR 11/05/2023 1:32 AM VACUUM EVAPORATION OPERATOR Devin Dougherty MD LABORATORY Performing Organization Address City/[facility]/ZIP Co de Phone Number [facility] [address] [address] * FIBRINOGEN (11/05/2023 1:32 AM VACUUM EVAPORATION OPERATOR) Only the most recent of2 resultswithin the time period is included. Fibrinogen 262 200 - 400 mg/dL [facility] Blood 11/05/2023 1:32 AM VACUUM EVAPORATION OPERATOR 11/05/2023 1:32 AM VACUUM EVAPORATION OPERATOR Devin Dougherty MD LABORATORY Performing Organization Address [facility] Co de Phone Number [facility] [address] [address] * CK, TOTAL (11/05/2023 1:32 AM VACUUM EVAPORATION OPERATOR) CK 56 26 - 192 IU/L [facility] Blood 11/05/2023 1:32 AM VACUUM EVAPORATION OPERATOR 11/05/2023 1:32 AM VACUUM EVAPORATION OPERATOR Devin Dougherty MD LABORATORY Performing Organization Address [facility] Co de Phone Number [facility] [address] [address] * PTT (APTT) (11/05/2023 1:32 AM VACUUM EVAPORATION OPERATOR) Only the most recent of2 resultswithin the time period is included. APTT 26.0 25.0 - 37.0 sec [facility] Blood 11/05/2023 1:32 AM VACUUM EVAPORATION OPERATOR 11/05/2023 1:32 AM VACUUM EVAPORATION OPERATOR Devin Dougherty MD LABORATORY Performing Organization Address [facility] Co de Phone Number [facility] [address] [address] * (ABNORMAL) TROP 2H (11/05/2023 1:18 AM VACUUM EVAPORATION OPERATOR) 2H Trop 18(H) <=14 ng/L [facility] 2H Delta Indeterminate Not Significant [facility] Blood 11/05/2023 1:18 AM VACUUM EVAPORATION OPERATOR 11/05/2023 1:45 AM VACUUM EVAPORATION OPERATOR Devin Dougherty MD LABORATORY Performing Organization Address [facility] de Phone Number [facility] [address] [address] * LACTATE (LACTIC ACID) (11/05/2023 1:18 AM VACUUM EVAPORATION OPERATOR) Only the most recent of2 resultswithin the time period is included. Lactate 1.9 0.7 - 2.1 mmol/L [facility] Blood 11/05/2023 1:18 AM VACUUM EVAPORATION OPERATOR 11/05/2023 1:27 AM VACUUM EVAPORATION OPERATOR Narrative [facility] - 11/05/2023 1:45 AM VACUUM EVAPORATION OPERATOR Send specimen on ice! Devin Dougherty MD LABORATORY Performing Organization Address [facility] de Phone Number [facility] [address] [address] * CALCIUM,IONIZED (11/05/2023 1:18 AM VACUUM EVAPORATION OPERATOR) PH 7.37 7.32 - 7.42 [facility] ICA, Actual 4.82 4.40 - 5.20 mg/dL [facility] ICA, pH Corrected 4.75 4.40 - 5.20 mg/dL [facility] Blood 11/05/2023 1:18 AM VACUUM EVAPORATION OPERATOR 11/05/2023 1:27 AM VACUUM EVAPORATION OPERATOR Narrative [facility] - 11/05/2023 1:44 AM VACUUM EVAPORATION OPERATOR Send specimen on ice! Devin Dougherty MD LABORATORY [facility] [address] [place] [address] * CT HEAD-NECK - ANGIO - W/IV CON (11/05/2023 12:09 AM VACUUM EVAPORATION OPERATOR) Anatomical Region Laterality Modality Skull Computed Tomogra phy 11/05/2023 12:2 1 AM VACUUM EVAPORATION OPERATOR Impressions 11/05/2023 10:22 AM VACUUM EVAPORATION OPERATOR Impression: ?? Slightly increased size of [...] Fernández Resident: Laith Berkowitz 11/05/2023 10:22 AM VACUUM EVAPORATION OPERATOR CT angiogram of the Head with [...] and reviewed by the Radiologist using the [employer] workstation, and these images were archived in [...] and reviewed by the Radiologist using the [employer] workstation,and these images were archived in the [...] NEURO * (ABNORMAL) URINALYSIS,TOTAL (11/04/2023 11:55 PM VACUUM EVAPORATION OPERATOR) Color COLORLESS YELLOW [facility] Appearance CLEAR CLEAR [facility] Urine Glucose 100(A) NEGATIVE mg/dL [facility] Bili UA NEGATIVE NEGATIVE [facility] Ketones NEGATIVE NEGATIVE [facility] Specific [place] 1.036(A) 1.003 - 1.030 [facility] Blood Ur NEGATIVE Neg-Trace [facility] PH Urine 7.5(H) 5.0 - 7.0 [facility] Protein Ur TRACE Neg-Trace [facility] Urobilinogen NORMAL NORMAL EU/dL [facility] Nitrite Ur NEGATIVE NEGATIVE [facility] Leuk Est NEGATIVE Neg-Trace [facility] WBC Ur 0-5 0 - 5 perHPF [facility] RBC Ur 0-3 0 - 3 perHPF [facility] SQ EPITH 0-5 0 - 5 perHPF [facility] Urinalysis Performed at: [facility] Urine 11/04/2023 11:5 5 PM VACUUM EVAPORATION OPERATOR 11/05/2023 12:03 AM VACUUM EVAPORATION OPERATOR Devin Dougherty MD LABORATORY [facility] [address] [place] [address] * PF INSERT CATH,ART,PERCUT,SHORTTERM (11/04/2023 11:43 PM VACUUM EVAPORATION OPERATOR) Narrative Riot Graf MD - 11/04/2023 11:43 PM VACUUM EVAPORATION OPERATOR Priscilla Holcomb MD ? 11/04/2023 11:44 PM Arterial Line Performed by: Priscilla Holcomb MD Authorized by: Rito Graf MD ?? Consent: ??Consent obtained: ??Verbal ??Consent given by: ??Patient ??Risks discussed: ??Pain, bleeding and infection [place] protocol: ??Patient identity confirmed: ??Verbally with patient, [...] * ED EKG (12-LEAD) (11/04/2023 11:25 PM VACUUM EVAPORATION OPERATOR) 11/04/2023 11:2 5 PM VACUUM EVAPORATION OPERATOR Impressions [facility] CVIS EKG ORDERS - 11/04/2023 11:25 PM VACUUM EVAPORATION OPERATOR SINUS TACHYCARDIA RIGHT BUNDLE BRANCH BLOCK ??[120+ ms QRS DURATION, UPRIGHT V1, 40+ ms S IN I/aVL/V4/V5/V6] ABNORMAL ECG P-R Interval 173 ms QRS Interval 127 ms QT Interval 395 ms QTC Interval 458 ms P [place] 57 QRS [place] 34 T Wave [place] 43 Narrative Procedure Note Vineet Díaz MD - 11/05/2023 IMPRESSION SINUS TACHYCARDIA RIGHT BUNDLE BRANCH BLOCK [120+ ms QRS DURATION, UPRIGHT V1, 40+ ms S INI/aVL/V4/V5/V6] ABNORMAL ECG P-R Interval 173 ms QRS Interval 127 ms QT Interval 395 ms QTC Interval 458 ms P [place] 57 QRS [place] 34 T Wave [place] 43 Devin Dougherty MD EKG [facility] CVIS EKG ORDERS * CT SPINE THORACIC NO IV CON (11/04/2023 11:05 PM VACUUM EVAPORATION OPERATOR) Anatomical Region Laterality Modality Thoracic Spine Computed Tomogra phy 11/04/2023 11:2 3 PM VACUUM EVAPORATION OPERATOR Impressions 11/05/2023 9:22 AM VACUUM EVAPORATION OPERATOR Impression: 1. No suspected acute fracture or dislocation of the thoracic or lumbar spine. ?? 2. Glhl-ow-fpddreah lumbar spondylosis without suspected high-grade spinal canal or neural foraminal narrowing. I have personally reviewed the image(s) and initial interpretation, and I agree with the findings as documented by the resident/fellow. Reading Radiologist: Ford Fernández Reading Resident: Laith Berkowitz Narrative 11/05/2023 9:22 AM VACUUM EVAPORATION OPERATOR Exam: Thoracic and Lumbar Spine CT [...] dislocation of the thoracic or lumbarspine. 2. Rejl-ri-nrpjgaup lumbar spondylosis without suspected high-grade spinalcanal or neural foraminal narrowing. I have personally reviewed the image(s) and initial interpretation, and Iagree with the findings as documented by the resident/fellow. Reading Radiologist: Ford Fernández Resident: Laith Berkowitz Devin Dougherty MD RAD CT NEURO * CT SPINE LUMBAR NO IV CON (11/04/2023 11:05 PM VACUUM EVAPORATION OPERATOR) Anatomical Region Laterality Modality Lumbar Spine Computed Tomogra phy 11/04/2023 11:2 3 PM VACUUM EVAPORATION OPERATOR Impressions 11/05/2023 9:22 AM VACUUM EVAPORATION OPERATOR Impression: 1. No suspected acute fracture or dislocation of the thoracic or lumbar spine. ?? 2. Bywp-zm-dryfeesv lumbar spondylosis without suspected high-grade spinal canal or neural foraminal narrowing. I have personally reviewed the image(s) and initial interpretation, and I agree with the findings as documented by the resident/fellow. Reading Radiologist: Ford Fernández Resident: Laith Berkowitz Narrative 11/05/2023 9:22 AM VACUUM EVAPORATION OPERATOR Exam: Thoracic and Lumbar Spine CT [...] dislocation of the thoracic or lumbarspine. 2. Bjkw-fm-pfeyqoqh lumbar spondylosis without suspected high-grade spinalcanal or neural foraminal narrowing. I have personally reviewed the image(s) and initial interpretation, and Iagree with the findings as documented by the resident/fellow. Reading Radiologist: Ford Fernández Reading Resident: Laith Berkowitz Devin Dougherty MD RAD CT NEURO * CT SPINE CERVICAL NO IV CON (11/04/2023 11:05 PM VACUUM EVAPORATION OPERATOR) Anatomical Region Laterality Modality Cervical Spine Computed Tomogra phy 11/04/2023 11:2 0 PM VACUUM EVAPORATION OPERATOR Impressions 11/05/2023 8:27 AM VACUUM EVAPORATION OPERATOR Impression: ?? 1. No acute fracture or traumatic subluxation of the cervical vertebrae. 2. Mild degenerative changes of the cervical spine without high-grade spinal canal or neural foraminal narrowing. I have personally reviewed the image(s) and initial interpretation, and I agree with the findings as documented by the resident/fellow. Reading Radiologist: Ford Fernández Reading Resident: Laith Berkowitz 11/05/2023 8:27 AM VACUUM EVAPORATION OPERATOR Exam: Cervical spine CT without contrast, [...] spinal canal narrowing. C5-6: Mild left and bqmb-qw-msyuocvg right neural foraminal narrowing. Borderline mild spinal [...] spinal canal narrowing. C5-6: Mild left and nodq-mw-ocxdlijv right neural foraminal narrowing.Borderline mild spinal canal [...] CT CHEST/ABD/PELVIS W/IV CONT (11/04/2023 11:05 PM VACUUM EVAPORATION OPERATOR) Anatomical Region Laterality Modality Chest Computed Tomogra phy 11/04/2023 11:2 9 PM VACUUM EVAPORATION OPERATOR Impressions 11/05/2023 6:33 AM VACUUM EVAPORATION OPERATOR Impression: 1. No acute traumatic sequelae [...] Reading Resident: Laith Berkowitz 11/05/2023 6:33 AM VACUUM EVAPORATION OPERATOR Comparison: None Indication: Trauma (STAB) ?? [...] ED CHEMISTRY LABS(NA,K,CL,CO2,GLU,CREAT,CA-IONIZED,ANION GAP) (11/04/2023 10:48 PM VACUUM EVAPORATION OPERATOR) Sodium 144 135 - 148 mEq/L [facility] Chloride 106 92 - 108 mEq/L [facility] AnGap 11 8 - 16 mEq/L [facility] Glucose 234(H) 70 - 100 mg/dL [facility] ICA, Actual 4.52 4.40 - 5.20 mg/dL [facility] ICA, pH Corrected 4.51 4.40 - 5.20 mg/dL [facility] Creatinine 0.81 0.50 - 1.00 mg/dL [facility] BICARB 27(H) 22 - 26 mEq/L [facility] eGFR (2020 CKD-EPI) 73 >=60 ml/min/1.7 3m2 [facility] Comment: The estimated glomerular filtration rate (eGFR) was calculated using the CKD-EPI 2020 creatinine equation, which does not include race as a factor. This equation is validated in individuals 18 years of age and older, and eGFR is normalized to a body surface area of 1.73m^2. Potassium 2.8(AA) 3.5 - 5.3 mEq/L [facility] Comment:Critcal Result Low Blood 11/04/2023 10:4 8 PM VACUUM EVAPORATION OPERATOR 11/04/2023 10:49 PM VACUUM EVAPORATION OPERATOR Narrative [facility] - 11/04/2023 10:55 PM VACUUM EVAPORATION OPERATOR Critical value for Potassium called to and read back by Rafa Hutchins RN in ??EDSTAB 2 at 11/04/2023 22:55:31 VACUUM EVAPORATION OPERATOR by Eleni Spring MLS. Devin Dougherty MD LABORATORY Performing Organization Address City/[facility] Co de Phone Number [address] [address] * (ABNORMAL) ED HEMOGLOBIN TOTAL (ED ONLY) (11/04/2023 10:48 PM VACUUM EVAPORATION OPERATOR) Hgb 10.3(L) 11.5 - 15.7 g/dL [facility] Blood 11/04/2023 10:4 8 PM VACUUM EVAPORATION OPERATOR 11/04/2023 10:49 PM VACUUM EVAPORATION OPERATOR Devin Dougherty MD LABORATORY Performing Organization Address [facility] Co de Phone Number [address] [address] * ED INR (11/04/2023 10:45 PM VACUUM EVAPORATION OPERATOR) ED INR 1.0 0.8 - 1.1 [facility] Comment: Warfarin Therapeutic Range: Standard Intensity: 2.0 - 3.0 High Intensity: 2.5 - 3.5 Blood 11/04/2023 10:4 5 PM VACUUM EVAPORATION OPERATOR 11/04/2023 10:48 PM VACUUM EVAPORATION OPERATOR Devin Dougherty MD LABORATORY Performing Organization Address [facility] Co de Phone Number [facility] [address] [address] * EXTRA TUBE - LIGHT GREEN (11/04/2023 10:45 PM VACUUM EVAPORATION OPERATOR) LIGHT GREEN TUBE Stored [facility] Comment:Green tubes ([place] Heparin) are stored in the lab for 3 days from the collection date. Blood 11/04/2023 10:4 5 PM VACUUM EVAPORATION OPERATOR 11/04/2023 10:50 PM VACUUM EVAPORATION OPERATOR Devin Dougherty MD LABORATORY Performing Organization Address [facility] Co de Phone Number [facility] [address] [address] * EXTRA TUBE - SST (11/04/2023 10:45 PM VACUUM EVAPORATION OPERATOR) SST TUBE Stored [facility] Comment:SST tubes (Serum Sep arator) are stored in the lab for 3 days from the collection date. Blood 11/04/2023 10:4 5 PM VACUUM EVAPORATION OPERATOR 11/04/2023 10:50 PM VACUUM EVAPORATION OPERATOR Devin Dougherty MD LABORATORY Performing Organization Address [facility] Co de Phone Number [facility] [address] [address] * HS TROPONIN (11/04/2023 10:45 PM VACUUM EVAPORATION OPERATOR) HS Troponin I 10 <=14 ng/L [facility] Blood 11/04/2023 10:4 5 PM VACUUM EVAPORATION OPERATOR 11/04/2023 11:05 PM VACUUM EVAPORATION OPERATOR Narrative [facility] - 11/04/2023 11:36 PM VACUUM EVAPORATION OPERATOR First Occurrence of the Troponin order is to be drawn Stat by Nursing staff on the unit. Devin Dougherty MD LABORATORY [facility] [address] [address] * (ABNORMAL) CBC WITH PLTS/AUTO DIFF (11/04/2023 10:45 PM VACUUM EVAPORATION OPERATOR) WBC 9.42 4.00 - 10.00 k/cmm [facility] RBC 3.86(L) 3.90 - 5.20 m/cmm [facility] Hgb 9.8(L) 11.5 - 15.7 g/dL [facility] Hematocrit 31.8(L) 34.0 - 45.0 % [facility] MCV 82.4 80.0 - 100.0 fL [facility] MCH 25.4 25.0 - 32.0 pg [facility] MCHC 30.8(L) 31.0 - 36.0 g/dL [facility] RDW 15.3(H) 11.5 - 14.5 % [facility] Plt 292 150 - 400 k/cmm [facility] MPV 11.1 6.5 - 12.5 fL [facility] Automated Abs Neutrophil 5.80 1.70 - 6.50 k/cmm [facility] Comment:Preliminary ANC, Fin al Result to Follow Abs Immature Granulocyte 0.07 0.00 - 0.09 k/cmm [facility] Comment:The Immature Granulo cyte Absolute count contains metamyelocytes and myelocytes. Abs Neutrophil 5.80 1.70 - 6.50 k/cmm [facility] Abs Lymphocyte 2.33 0.80 - 4.00 k/cmm [facility] Abs Monocyte 0.88 0.20 - 1.00 k/cmm [facility] Abs Eosinophil 0.27 0.00 - 0.60 k/cmm [facility] Abs Basophil 0.07 0.00 - 0.20 k/cmm [facility] Blood 11/04/2023 10:4 5 PM VACUUM EVAPORATION OPERATOR 11/04/2023 11:05 PM VACUUM EVAPORATION OPERATOR Devin Dougherty MD LABORATORY [facility] [address] [address] * PRECAUTIONARY TUBE (11/04/2023 10:45 PM VACUUM EVAPORATION OPERATOR) Prec Tube Precautionary Blood Bank Specimen Received. [facility] Blood 11/04/2023 10:4 5 PM VACUUM EVAPORATION OPERATOR 11/04/2023 10:52 PM VACUUM EVAPORATION OPERATOR Devin Dougherty MD LAB TRANSFUSION SER VICES Performing Organization Address [facility] Co de Phone Number [address] [address] * (ABNORMAL) ANTI XA HEPARIN UNFRACTIONATED (11/04/2023 10:45 PM VACUUM EVAPORATION OPERATOR) Anti XA Hep U <0.04(L) 0.30 - 0.70 IU/mL [facility] Blood 11/04/2023 10:4 5 PM VACUUM EVAPORATION OPERATOR 11/04/2023 11:05 PM VACUUM EVAPORATION OPERATOR Devin Dougherty MD LABORATORY Performing Organization Address [facility] Co de Phone Number [address] [address] * ED US CRITICAL CARE (11/04/2023 10:40 PM VACUUM EVAPORATION OPERATOR) Anatomical Region Laterality Modality Ultrasound Narrative 11/04/2023 11:28 PM VACUUM EVAPORATION OPERATOR ED Trauma eFAST Ultrasound Indications: Suspicion [...] Pleural Effusion identified, and No Pneumothorax Identified Devni Dougherty MD, 11/04/2023 11:28 PM Devin Dougherty MD RAD ED ULT from Last 3 Months or Most Recently Relevant to Health Maintenance Advance Directives For more information, please contact: [phone] Latest Code Status on File Code Status [...] Code Status With Whom? Patient Care Teams Quill Picking Machine Operator Relationship Specialty Start Date End Date Eloise Reeves DO [address] [place] [address] PCP - General Family Medicine 11/06/23
--- OUTSIDE RECORDS SUMMARY | 2023-12-11 20:01 | XMS_ITS | Clinical Summary ---
Author Name Unknown Organization [facility] Address [address] [place] [address] Phone Care Team Providers Care Glued Wood Tester Name Role Phone Eloise Reeves DO Primary Care Provider Source Comments [employer] is fully rolled out on [employer]. Last update 04/02/09.[facility] Allergies Active Allergy Reactions Criticality Noted Date [...] Department Care Team Description 11/27/2023 1:00 PM CONSTRUCTION PLANT OPERATOR [facility] [address] [place] [address] [id number] Leidy Velazquez PA-C Mild traumatic brain injury, [...] Department [place] Unknown, Provider 11/04/2023 10:39 PM CONSTRUCTION PLANT OPERATOR - 11/16/2023 9:19 AM CONSTRUCTION PLANT OPERATOR Hospital Encounter [facility] Surgery/Trauma/Kimmie ro [address] [place] [address] Devin Dougherty MD Petrun, Branden, MD [place], [...] Comments Blood Pressure 108/71 11/27/2023 12:54 PM CONSTRUCTION PLANT OPERATOR Pulse 74 11/27/2023 12:54 PM CONSTRUCTION PLANT OPERATOR Temperature 36.6 ??C (97.8 ??F) 11/16/2023 4:25 AM CS T Respiratory Rate 16 11/16/2023 4:25 AM CONSTRUCTION PLANT OPERATOR Oxygen Saturation 90% 11/16/2023 4:25 AM CONSTRUCTION PLANT OPERATOR Inhaled Oxygen Concentration - - Weight 61.6 kg (135 lb 12.8 oz) 024 12:54 PM CONSTRUCTION PLANT OPERATOR Height 147.3 cm (4' 10) 11/05/2023 12: 03 AM CONSTRUCTION PLANT OPERATOR Body Mass Index 28.38 11/05/2023 12:03 AM CONSTRUCTION PLANT OPERATOR Plan of Treatment Health Maintenance Due Date [...] BASIC METABOLIC (BMP) Routine 11/16/2023 7:22 AM CONSTRUCTION PLANT OPERATOR POC GLUCOSE Routine 11/16/2023 6:58 AM CONSTRUCTION PLANT OPERATOR POC GLUCOSE Routine 11/15/2023 9:15 PM CONSTRUCTION PLANT OPERATOR POC GLUCOSE Routine 11/15/2023 4:09 PM CONSTRUCTION PLANT OPERATOR POC GLUCOSE Routine 11/15/2023 12:46 PM CONSTRUCTION PLANT OPERATOR PANEL BASIC METABOLIC (BMP) Routine 11/15/2023 7:39 AM CONSTRUCTION PLANT OPERATOR POC GLUCOSE Routine 11/15/2023 6:11 AM CONSTRUCTION PLANT OPERATOR POC GLUCOSE Routine 11/14/2023 9:02 PM CONSTRUCTION PLANT OPERATOR POC GLUCOSE Routine 11/14/2023 4:21 PM CONSTRUCTION PLANT OPERATOR POC GLUCOSE Routine 11/14/2023 12:19 PM CONSTRUCTION PLANT OPERATOR PANEL BASIC METABOLIC (BMP) Routine 11/14/2023 8:59 AM CONSTRUCTION PLANT OPERATOR POC GLUCOSE Routine 11/14/2023 8:11 AM CONSTRUCTION PLANT OPERATOR POC GLUCOSE Routine 11/13/2023 9:15 PM CONSTRUCTION PLANT OPERATOR POC GLUCOSE Routine 11/13/2023 4:03 PM CONSTRUCTION PLANT OPERATOR POC GLUCOSE Routine 11/13/2023 11:21 AM CONSTRUCTION PLANT OPERATOR PANEL BASIC METABOLIC (BMP) Routine 11/13/2023 6:41 AM CONSTRUCTION PLANT OPERATOR POC GLUCOSE Routine 11/13/2023 6:31 AM CONSTRUCTION PLANT OPERATOR POC GLUCOSE Routine 11/12/2023 9:21 PM CONSTRUCTION PLANT OPERATOR POC GLUCOSE Routine 11/12/2023 4:12 PM CONSTRUCTION PLANT OPERATOR PANEL BASIC METABOLIC (BMP) Timed 11/12/2023 1:01 PM CONSTRUCTION PLANT OPERATOR POC GLUCOSE Routine 11/12/2023 12:14 PM CONSTRUCTION PLANT OPERATOR POC GLUCOSE Routine 11/12/2023 6:09 AM CONSTRUCTION PLANT OPERATOR POC GLUCOSE Routine 11/11/2023 8:48 PM CONSTRUCTION PLANT OPERATOR POC GLUCOSE Routine 11/11/2023 4:11 PM CONSTRUCTION PLANT OPERATOR POC GLUCOSE Routine 11/11/2023 11:47 AM CONSTRUCTION PLANT OPERATOR PHOSPHORUS Routine 11/11/2023 6:09 AM CONSTRUCTION PLANT OPERATOR PANEL BASIC METABOLIC (BMP) Routine 11/11/2023 6:09 AM CONSTRUCTION PLANT OPERATOR MAGNESIUM Routine 11/11/2023 6:09 AM CONSTRUCTION PLANT OPERATOR TC LAB BLOOD DRAW BY VENIPUNCTURE Routine 11/11/2023 6:09 AM CONSTRUCTION PLANT OPERATOR POC GLUCOSE Routine 11/10/2023 8:58 PM CONSTRUCTION PLANT OPERATOR POC GLUCOSE Routine 11/10/2023 4:16 PM CONSTRUCTION PLANT OPERATOR POC GLUCOSE Routine 11/10/2023 11:15 AM CONSTRUCTION PLANT OPERATOR PHOSPHORUS Routine 11/10/2023 6:17 AM CONSTRUCTION PLANT OPERATOR PANEL BASIC METABOLIC (BMP) Routine 11/10/2023 6:17 AM CONSTRUCTION PLANT OPERATOR MAGNESIUM Routine 11/10/2023 6:17 AM CONSTRUCTION PLANT OPERATOR PC LAB CBC/PLT Routine 11/10/2023 6:17 AM CONSTRUCTION PLANT OPERATOR POC GLUCOSE Routine 11/09/2023 9:41 PM CONSTRUCTION PLANT OPERATOR POC GLUCOSE Routine 11/09/2023 3:58 PM CONSTRUCTION PLANT OPERATOR ANTI XA ASSAY LMW HEPARIN Timed 11/09/2023 2:18 PM CONSTRUCTION PLANT OPERATOR POC GLUCOSE Routine 11/09/2023 11:28 AM CONSTRUCTION PLANT OPERATOR XR FOOT RIGHT 3 V AP/OBL/LAT* Routine 11/09/2023 10:36 AM CONSTRUCTION PLANT OPERATOR TELEMETRY STRIPS 11/09/2023 8:48 AM CONSTRUCTION PLANT OPERATOR POC GLUCOSE Routine 11/09/2023 5:46 AM CONSTRUCTION PLANT OPERATOR PC VALPROIC ACID LEVEL DEPAHOTE Routine 11/09/2023 5:41 AM CONSTRUCTION PLANT OPERATOR PHOSPHORUS Routine 11/09/2023 5:41 AM CONSTRUCTION PLANT OPERATOR PANEL BASIC METABOLIC (BMP) Routine 11/09/2023 5:41 AM CONSTRUCTION PLANT OPERATOR MAGNESIUM Routine 11/09/2023 5:41 AM CONSTRUCTION PLANT OPERATOR PC LAB CBC/PLT Routine 11/09/2023 5:41 AM CONSTRUCTION PLANT OPERATOR TELEMETRY STRIPS 11/09/2023 1:21 AM CONSTRUCTION PLANT OPERATOR POC GLUCOSE Routine 11/08/2023 8:40 PM CONSTRUCTION PLANT OPERATOR TELEMETRY STRIPS 11/08/2023 7:31 PM CONSTRUCTION PLANT OPERATOR PHOSPHORUS Routine 11/08/2023 4:20 PM CONSTRUCTION PLANT OPERATOR MAGNESIUM Routine 11/08/2023 4:20 PM CONSTRUCTION PLANT OPERATOR PANEL BASIC METABOLIC (BMP) Routine 11/08/2023 4:20 PM CONSTRUCTION PLANT OPERATOR TC LAB BLOOD DRAW BY VENIPUNCTURE Routine 11/08/2023 4:20 PM CONSTRUCTION PLANT OPERATOR POC GLUCOSE Routine 11/08/2023 3:56 PM CONSTRUCTION PLANT OPERATOR POC GLUCOSE Routine 11/08/2023 11:03 AM CONSTRUCTION PLANT OPERATOR TELEMETRY STRIPS 11/08/2023 9:49 AM CONSTRUCTION PLANT OPERATOR XR CHEST 1 VIEW AP OR PA* Routine 11/08/2023 6:30 AM CONSTRUCTION PLANT OPERATOR POC GLUCOSE Routine 11/08/2023 6:22 AM CONSTRUCTION PLANT OPERATOR TELEMETRY STRIPS 11/08/2023 2:59 AM CONSTRUCTION PLANT OPERATOR POC GLUCOSE Routine 11/07/2023 9:34 PM CONSTRUCTION PLANT OPERATOR TELEMETRY STRIPS 11/07/2023 7:31 PM CONSTRUCTION PLANT OPERATOR POC GLUCOSE Routine 11/07/2023 4:06 PM CONSTRUCTION PLANT OPERATOR POC GLUCOSE Routine 11/07/2023 11:45 AM CONSTRUCTION PLANT OPERATOR XR CHEST 2 VIEWS PA + LAT* Routine 11/07/2023 10:07 AM CONSTRUCTION PLANT OPERATOR TELEMETRY STRIPS 11/07/2023 9:29 AM CONSTRUCTION PLANT OPERATOR PC PROCALCITONIN (PCT) Routine 8:34 AM CONSTRUCTION PLANT OPERATOR PC LAB CBC/PLT Routine 11/07/2023 8:34 AM CONSTRUCTION PLANT OPERATOR PANEL BASIC METABOLIC (BMP) Routine 11/07/2023 8:34 AM CONSTRUCTION PLANT OPERATOR MAGNESIUM Routine 11/07/2023 8:34 AM CONSTRUCTION PLANT OPERATOR PHOSPHORUS Routine 11/07/2023 8:34 AM CONSTRUCTION PLANT OPERATOR POC GLUCOSE Routine 11/07/2023 5:45 AM CONSTRUCTION PLANT OPERATOR TELEMETRY STRIPS 11/07/2023 1:07 AM CONSTRUCTION PLANT OPERATOR POC GLUCOSE Routine 11/06/2023 9:21 PM CONSTRUCTION PLANT OPERATOR TELEMETRY STRIPS 11/06/2023 4:28 PM CONSTRUCTION PLANT OPERATOR PC GASES,BLOOD,ANY COMB OF PH,PCD2,PO2,CO2,HCO2 Routine 11/06/2023 1:06 PM CONSTRUCTION PLANT OPERATOR MAGNESIUM Timed 11/06/2023 1:06 PM CONSTRUCTION PLANT OPERATOR PHOSPHORUS Timed 11/06/2023 1:06 PM CONSTRUCTION PLANT OPERATOR PANEL BASIC METABOLIC (BMP) Timed 11/06/2023 1:06 PM CONSTRUCTION PLANT OPERATOR PC LAB CBC/PLT Timed 11/06/2023 1:06 PM CONSTRUCTION PLANT OPERATOR POC GLUCOSE Routine 11/06/2023 1:04 PM CONSTRUCTION PLANT OPERATOR POC GLUCOSE Routine 11/06/2023 10:49 AM CONSTRUCTION PLANT OPERATOR TELEMETRY STRIPS 11/06/2023 8:49 AM CONSTRUCTION PLANT OPERATOR PC LAB GLYCOSYLATED HGB Routine 11/06/2023 6:31 AM CONSTRUCTION PLANT OPERATOR PROTHROMBIN (PT) & INR Timed 6:31 AM CONSTRUCTION PLANT OPERATOR PC PHOSPHORUS INORGANIC(PHOSPHATE) Routine 11/06/2023 6:31 AM CONSTRUCTION PLANT OPERATOR PC MAGNESIUM, SERUM Routine 11/06/2023 6 :31 AM CONSTRUCTION PLANT OPERATOR PC LAB CBC/PLT Routine 11/06/2023 6:31 AM CONSTRUCTION PLANT OPERATOR TC LAB BLOOD DRAW BY VENIPUNCTURE Routine 11/06/2023 6:31 AM CONSTRUCTION PLANT OPERATOR POC GLUCOSE Routine 11/06/2023 5:39 AM CONSTRUCTION PLANT OPERATOR TELEMETRY STRIPS 11/06/2023 1:52 AM CONSTRUCTION PLANT OPERATOR POC GLUCOSE Routine 11/05/2023 4:54 PM CONSTRUCTION PLANT OPERATOR MAGNESIUM Routine 11/05/2023 4:48 PM CONSTRUCTION PLANT OPERATOR POTASSIUM Routine 11/05/2023 4:48 PM CONSTRUCTION PLANT [address]ATOR CT HEAD NO IV CONTRAST Timed 11:44 AM CONSTRUCTION PLANT OPERATOR POC GLUCOSE Routine 11/05/2023 11:11 AM CONSTRUCTION PLANT OPERATOR TELEMETRY STRIPS 11/05/2023 9:25 AM CONSTRUCTION PLANT OPERATOR EKG ADULT (12-LEAD) Routine 11/05/2023 6 :38 AM CONSTRUCTION PLANT OPERATOR POC GLUCOSE Routine 11/05/2023 6:07 AM CONSTRUCTION PL[employer] [address] CT HEAD NO IV CONTRAST Timed 4:54 AM CONSTRUCTION PLANT OPERATOR PROTHROMBIN (PT) & INR Timed 4:27 AM CONSTRUCTION PLANT OPERATOR PC PHOSPHORUS INORGANIC(PHOSPHATE) Routine 11/05/2023 4:27 AM CONSTRUCTION PLANT OPERATOR PC MAGNESIUM, SERUM Routine 11/05/2023 4 :27 AM CONSTRUCTION PLANT OPERATOR PC GASES,BLOOD,ANY COMB OF PH,PCD2,PO2,CO2,HCO2 Routine 11/05/2023 4:27 AM CONSTRUCTION PLANT OPERATOR PC LAB CBC/PLT Routine 11/05/2023 4:27 AM CONSTRUCTION PLANT OPERATOR TC LAB BLOOD DRAW BY VENIPUNCTURE Routine 11/05/2023 4:27 AM CONSTRUCTION PLANT OPERATOR PC TROPONIN QUANTITATIVE Timed 11/05/2023 4:27 AM CONSTRUCTION PLANT OPERATOR PC TROPONIN QUANTITATIVE Timed 11/05/2023 2:58 AM CONSTRUCTION PLANT OPERATOR CK, TOTAL STAT 11/05/2023 1:32 AM CONSTRUCTION PLANT OPERATOR FIBRINOGEN STAT 11/05/2023 1:32 AM CONSTRUCTION PLANT OPERATOR PC LAB PTT STAT 11/05/2023 1:32 AM CONSTRUCTION PLANT OPERATOR PANEL HEPATIC FUNCTION STAT 1:32 AM CONSTRUCTION PLANT OPERATOR PC LAB CBC/PLT STAT 11/05/2023 1:32 AM CONSTRUCTION PLANT OPERATOR PANEL BASIC METABOLIC (BMP) STAT 11/05/2023 1:32 AM CONSTRUCTION PLANT OPERATOR MAGNESIUM STAT 11/05/2023 1:32 AM CONSTRUCTION PLANT OPERATOR PHOSPHORUS STAT 11/05/2023 1:32 AM CONSTRUCTION PLANT OPERATOR PROTHROMBIN (PT) & INR STAT 1:32 AM CONSTRUCTION PLANT OPERATOR PC IONIZED,CALCIUM STAT 11/05/2023 1: 18 AM CONSTRUCTION PLANT OPERATOR PC LACTATE (LACTIC ACID) STAT 11/05/2023 1:18 AM CONSTRUCTION PLANT OPERATOR PC GASES,BLOOD,ANY COMB OF PH,PCD2,PO2,CO2,HCO2 STAT 11/05/2023 1:18 AM CONSTRUCTION PLANT OPERATOR PC TROPONIN QUANTITATIVE Timed 11/05/2023 1:18 AM CONSTRUCTION PL[employer] [address]ATOR CT HEAD-NECK - ANGIO - W/IV CON STAT 11/05/2023 12:09 AM CONSTRUCTION PLANT OPERATOR PC LAB COMPLETE UA STAT 11/04/2023 11 :55 PM CONSTRUCTION PLANT OPERATOR PF INSERT CATH,ART,PERCUT,SANTA ERM Routine 11/04/2023 11:43 PM CONSTRUCTION PLANT OPERATOR ED EKG (12-LEAD) Routine 11/04/2023 11:2 5 [address] [address] [address] CT SPINE LUMBAR NO IV CON STAT 11/04/2023 11:05 PM CONSTRUCTION PLANT OPERATOR CT SPINE THORACIC NO IV CON STAT 11/04/2023 11:05 PM CONSTRUCTION PLANT OPERATOR CT CHEST/ABD/PELVIS W/IV CONT STAT 11/04/2023 11:05 PM CONSTRUCTION PLANT OPERATOR CT SPINE CERVICAL NO IV CON STAT 11/04/2023 11:05 PM CONSTRUCTION PLANT OPERATOR CT HEAD NO IV CONTRAST STAT 11:05 PM CONSTRUCTION PLANT OPERATOR XR CHEST 1 VIEW AP OR PA* STAT 11/04/2023 10:57 PM CONSTRUCTION PLANT OPERATOR TC LAB ER STAT TOTAL HGB STAT 11/04/2023 10:48 PM CONSTRUCTION PLANT OPERATOR PC ELECTROLYTES PANEL STAT 11/04/2023 10:48 PM CONSTRUCTION PLANT OPERATOR PC HEPARIN ASSAY STAT 11/04/2023 10:4 5 PM CONSTRUCTION PLANT OPERATOR EXTRA TUBE - SST Routine 11/04/2023 10:4 5 PM CONSTRUCTION PLANT OPERATOR TC LAB BLOOD DRAW BY VENIPUNCTURE Routine 11/04/2023 10:45 PM CONSTRUCTION PLANT OPERATOR PC TROPONIN QUANTITATIVE STAT 11/04/2023 10:45 PM CONSTRUCTION PLANT OPERATOR PC LAB PTT STAT 11/04/2023 10:45 PM CONSTRUCTION PLANT OPERATOR PC LAB ED INR STAT 11/04/2023 10:45 PM CONSTRUCTION PLANT OPERATOR PRECAUTIONARY TUBE STAT 11/04/2023 10 :45 PM CONSTRUCTION PLANT OPERATOR PC LACTATE (LACTIC ACID) STAT 11/04/2023 10:45 PM CONSTRUCTION PLANT OPERATOR FIBRINOGEN STAT 11/04/2023 10:45 PM CONSTRUCTION PLANT OPERATOR PC LAB CBC W/DIFF & PLT STAT 11/04/2023 10:45 PM CONSTRUCTION PLANT OPERATOR PC GASES,BLOOD,ANY COMB OF PH,PCD2,PO2,CO2,HCO2 STAT 11/04/2023 10:45 PM CONSTRUCTION PLANT OPERATOR ED US CRITICAL CARE STAT 11/04/2023 1 0:40 PM CONSTRUCTION PLANT OPERATOR PANEL LIPID Routine 10/10/2021 11:08 AM CONSTRUCTION PLANT OPERATOR from Last 3 Months or Most Recently Relevant to Health Maintenance Results * (ABNORMAL) PANEL BASIC METABOLIC (BMP) (11/16/2023 7:22 AM CONSTRUCTION PLANT OPERATOR) Only the most recent of12 resultswithin the time period is included. Sodium 143 135 - 148 mEq/L [facility] Potassium 3.9 3.5 - 5.3 mEq/L [facility] Chloride 105 92 - 108 mEq/L [facility] CO2 27 22 - 30 mEq/L [facility] AnGap 11 8 - 16 mEq/L [facility] Glucose 87 70 - 100 mg/dL [facility] BUN 23 8 - 23 mg/dL [facility] Creatinine 1.19(H) 0.50 - 1.00 mg/dL [facility] Calcium 9.4 8.8 - 10.2 mg/dL [facility] eGFR (2020 CKD-EPI) 46(L) >=60 ml/min/1.7 3m2 [facility] Comment: The estimated glomerular filtration rate (eGFR) was calculated using the CKD-EPI 2020 creatinine equation, which does not include race as a factor. This equation is validated in individuals 18 years of age and older, and eGFR is normalized to a body surface area of 1.73m^2. Blood 11/16/2023 7:22 AM CONSTRUCTION PLANT OPERATOR 11/16/2023 7:43 AM CONSTRUCTION PLANT OPERATOR Jesusita Aiken TRIAGE NURSE, PIPE SMOKING MACHINE OPERATOR LABORATO RY Performing Organization Address City/[facility]/[place] [address] * POC GLUCOSE (11/16/2023 6:58 AM CONSTRUCTION PLANT OPERATOR) Only the most recent of42 resultswithin the time period is included. POC Glucose 84 70 - 100 mg/dL [facility] Blood 11/16/2023 6:58 AM CONSTRUCTION PLANT OPERATOR Devin Dougherty MD LABORATORY Performing Organization Address City/[facility] Co de Phone Number [facility] [address] [place] [address], * PHOSPHORUS (11/11/2023 6:09 AM CONSTRUCTION PLANT OPERATOR) Only the most recent of7 resultswithin the time period is included. Phosphorus 3.5 2.5 - 4.5 mg/dL [facility] Blood 11/11/2023 6:09 AM CONSTRUCTION PLANT OPERATOR 11/11/2023 6:36 AM CONSTRUCTION PLANT OPERATOR Quinn Covarrubias MD LABORATORY Performing Organization Address City/[facility]/ZIP Co de Phone Number [facility] [address] [address] * MAGNESIUM (11/11/2023 6:09 AM CONSTRUCTION PLANT OPERATOR) Only the most recent of8 resultswithin the time period is included. Magnesium 2.2 1.6 - 2.4 mg/dL [facility] Blood 11/11/2023 6:09 AM CONSTRUCTION PLANT OPERATOR 11/11/2023 6:36 AM CONSTRUCTION PLANT OPERATOR Quinn Covarrubias MD LABORATORY Performing Organization Address [facility] Co de Phone Number [facility] [address] [address] * (ABNORMAL) CBC WITH PLATELET (11/11/2023 6:09 AM CONSTRUCTION PLANT OPERATOR) Only the most recent of7 resultswithin the time period is included. [facility] WBC 5.60 4.00 - 10.00 k/cmm [facility] RBC 3.80(L) 3.90 - 5.20 m/cmm [facility] Hgb 9.5(L) 11.5 - 15.7 g/dL [facility] Hematocrit 31.4(L) 34.0 - 45.0 % [facility] MCV 82.6 80.0 - 100.0 fL [facility] MCH 25.0 25.0 - 32.0 pg [facility] MCHC 30.3(L) 31.0 - 36.0 g/dL [facility] RDW 16.1(H) 11.5 - 14.5 % [facility] Plt 275 150 - 400 k/cmm [facility] MPV 11.8 6.5 - 12.5 fL [facility] Blood 11/11/2023 6:09 AM CONSTRUCTION PLANT OPERATOR 11/11/2023 6:36 AM CONSTRUCTION PLANT OPERATOR Quinn Covarrubias MD LABORATORY Performing Organization Address [facility] Co de Phone Number [facility] [address] [address] * ANTI XA ASSAY LMW HEPARIN (11/09/2023 2:18 PM CONSTRUCTION PLANT OPERATOR) [facility] Anti XA LMW 0.32 IU/mL [facility] Comment: Anti Xa Assay LMW Heparin Therapeutic Ranges: 0.4-1.1 IU/mL for twice daily 1.0-2.0 IU/mL for once daily Blood 11/09/2023 2:18 PM CONSTRUCTION PLANT OPERATOR 11/09/2023 2:29 PM CONSTRUCTION PLANT OPERATOR Quinn Covarrubias MD LABORATORY [facility] [address] [address] * XR FOOT RIGHT 3 V AP/OBL/LAT* (11/09/2023 10:36 AM CONSTRUCTION PLANT OPERATOR) Anatomical Region Laterality Modality Foot Computed Radiogr aphy 11/09/2023 10:4 7 AM CONSTRUCTION PLANT OPERATOR Impressions 11/09/2023 10:50 AM CONSTRUCTION PLANT OPERATOR Impression: No acute osseous abnormality. Generalized osteopenia. Reading Radiologist: Angela Camp Narrative 11/09/2023 10:50 AM CONSTRUCTION PLANT OPERATOR Technique: XR FOOT RIGHT 3 V [...] Reading Radiologist: Angela Camp Jesusita Aiken APRN, PIPE SMOKING MACHINE OPERATOR RAD XRAY * TELEMETRY STRIPS (11/09/2023 8:48 AM CONSTRUCTION PLANT OPERATOR) Only the most recent of12 resultswithin the time period is included. Narrative 11/09/2023 8:48 AM CONSTRUCTION PLANT OPERATOR Ordered by an unspecified provider. Provider Unknown RAD ECHO * (ABNORMAL) VALPROATE (DEPAKOTE) LEVEL (11/09/2023 5:41 AM CONSTRUCTION PLANT OPERATOR) Valproate 31.8(L) 50.0 - 100.0 mcg/mL [facility] Blood 11/09/2023 5:41 AM CONSTRUCTION PLANT OPERATOR 11/09/2023 8:19 AM CONSTRUCTION PLANT OPERATOR Quinn Covarrubias MD LABORATORY [facility] [address] [place] [address] * XR CHEST 1 VIEW AP OR PA* (11/08/2023 6:30 AM CONSTRUCTION PLANT OPERATOR) Only the most recent of2 resultswithin the time period is included. Anatomical Region Laterality Modality Chest Computed Radiogr aphy 11/08/2023 6:56 AM CONSTRUCTION PLANT OPERATOR Impressions 11/08/2023 7:24 AM CONSTRUCTION PLANT OPERATOR Impression: Stable chest. I have personally reviewed the image(s) and initial interpretation, and I agree with the findings as documented by the resident/fellow. Reading Radiologist: Ronal Hidalgo Reading Resident: Laith Berkowitz Narrative 11/08/2023 7:24 AM CONSTRUCTION PLANT OPERATOR Technique: XR CHEST 1 VIEW AP [...] VIEWS PA + LAT* (11/07/2023 10:07 AM CONSTRUCTION PLANT OPERATOR) Anatomical Region Laterality Modality Chest Computed Radiogr aphy 11/07/2023 10:0 9 AM CONSTRUCTION PLANT OPERATOR Impressions 11/07/2023 10:10 AM CONSTRUCTION PLANT OPERATOR Impression: New left basilar opacities with small effusion concerning for developing infection. Reading Radiologist: Phil Contreras Narrative 11/07/2023 10:10 AM CONSTRUCTION PLANT OPERATOR Technique: XR CHEST 2 VIEWS PA [...] RAD XRAY * PROCALCITONIN (11/07/2023 8:34 AM CONSTRUCTION PLANT OPERATOR) Procalcitonin 0.12 ng/mL [facility] Comment: Results <0.50 ng/mL represent a low risk of severe sepsis and/or septic shock. Results >2.0 ng/mL represent a high risk of severe sepsis and/or septic shock. Blood 11/07/2023 8:34 AM CONSTRUCTION PLANT OPERATOR 11/07/2023 8:40 AM CONSTRUCTION PLANT OPERATOR Quinn Covarrubias MD LABORATORY [facility] [address] [address] * (ABNORMAL) BLOOD GASES (11/06/2023 1:06 PM CONSTRUCTION PLANT OPERATOR) Only the most recent of3 resultswithin the time period is included. PH Jalen 7.36 7.32 - 7.42 [facility] PCO2 Jalen 48 41 - 51 mmHG [facility] PO2 Jalen 86(H) 25 - 40 mmHG [facility] Bicarb Jalen 26 24 - 28 mEq/L [facility] O2 Sat Jalen 96 % [facility] Base Exc Jalen 1.0 -10.0 - 2.0 mEq/L [facility] Blood Venous 11/06/2023 1:06 PM CONSTRUCTION PLANT OPERATOR 11/06/2023 1:10 PM CONSTRUCTION PLANT OPERATOR Narrative [facility] - 11/06/2023 1:16 PM CONSTRUCTION PLANT OPERATOR Draw on Room Air: No O2 LPM (liter/min) Level->4 via mask FiO2 Level: 100 Quinn Covarrubias MD LABORATORY Performing Organization Address [facility] de Phone Number [facility] [address] [address] * (ABNORMAL) ICU MAGNESIUM (11/06/2023 6:31 AM CONSTRUCTION PLANT OPERATOR) Only the most recent of2 resultswithin the time period is included. Magnesium 2.5(H) 1.6 - 2.4 mg/dL [facility] Blood 11/06/2023 6:31 AM CONSTRUCTION PLANT OPERATOR 11/06/2023 7:37 AM CONSTRUCTION PLANT OPERATOR Devin Dougherty MD LABORATORY Performing Organization Address [facility] de Phone Number [facility] [address] [address] * ICU PHOSPHORUS (11/06/2023 6:31 AM CONSTRUCTION PLANT OPERATOR) Only the most recent of2 resultswithin the time period is included. Phosphorus 4.1 2.5 - 4.5 mg/dL [facility] Blood 11/06/2023 6:31 AM CONSTRUCTION PLANT OPERATOR 11/06/2023 7:37 AM CONSTRUCTION PLANT OPERATOR Devin Dougherty MD LABORATORY Performing Organization Address [facility] de Phone Number [facility] [address] [address] * (ABNORMAL) ICU CBC WITH PLATELET (11/06/2023 6:31 AM CONSTRUCTION PLANT OPERATOR) Only the most recent of2 resultswithin the time period is included. WBC 9.06 4.00 - 10.00 k/cmm [facility] RBC 3.77(L) 3.90 - 5.20 m/cmm [facility] Hgb 9.6(L) 11.5 - 15.7 g/dL [facility] Hematocrit 30.8(L) 34.0 - 45.0 % [facility] MCV 81.7 80.0 - 100.0 fL [facility] MCH 25.5 25.0 - 32.0 pg [facility] MCHC 31.2 31.0 - 36.0 g/dL [facility] RDW 15.9(H) 11.5 - 14.5 % [facility] Plt 284 150 - 400 k/cmm [facility] MPV 12.1 6.5 - 12.5 fL [facility] Blood 11/06/2023 6:31 AM CONSTRUCTION PLANT OPERATOR 11/06/2023 7:37 AM [employer] Devin Dougherty MD LABORATORY [facility] [address] [address] * (ABNORMAL) ICU PANEL BASIC METABOLIC (BMP) (11/06/2023 6:31 AM [employer]) Only the most recent of2 resultswithin the time period is included. Sodium 142 135 - 148 mEq/L [facility] Potassium 3.7 3.5 - 5.3 mEq/L [facility] Chloride 107 92 - 108 mEq/L [facility] CO2 26 22 - 30 mEq/L [facility] AnGap 9 8 - 16 mEq/L [facility] Glucose 148(H) 70 - 100 mg/dL [facility] BUN 12 8 - 23 mg/dL [facility] Creatinine 0.77 0.50 - 1.00 mg/dL [facility] Calcium 8.7(L) 8.8 - 10.2 mg/dL [facility] eGFR (2020 CKD-EPI) 77 >=60 ml/min/1.7 3m2 [facility] Comment: The estimated glomerular filtration rate (eGFR) was calculated using the CKD-EPI 2020 creatinine equation, which does not include race as a factor. This equation is validated in individuals 18 years of age and older, and eGFR is normalized to a body surface area of 1.73m^2. Blood 11/06/2023 6:31 AM [employer] 11/06/2023 7:37 AM [employer] Devin Dougherty MD LABORATORY Performing Organization Address City/[facility] Co de Phone Number [facility] [address] [phone] * PROTHROMBIN (PT) & INR (11/06/2023 6:31 AM [employer]) Only the most recent of3 resultswithin the time period is included. PT 11.4 9.0 - 12.5 sec [facility] INR 1.0 0.8 - 1.1 [facility] Comment: Warfarin Therapeutic Range: Standard Intensity: 2.0 - 3.0 High Intensity: 2.5 - 3.5 Blood 11/06/2023 6:31 AM CONSTRUCTION PLANT OPERATOR 11/06/2023 7:37 AM CONSTRUCTION PLANT OPERATOR Quinn Covarrubias MD LABORATORY Performing Organization Address [facility] de Phone Number [address] [address] * (ABNORMAL) GLYCOSYLATED HGB - A1C (11/06/2023 6:31 AM CONSTRUCTION PLANT OPERATOR) Hemoglobin A1C 8.1(H) 4.0 - 5.6 % [facility] Comment: Increased risk for diabetes (prediabetes): 5.7-6.4% Diabetes: greater than or equal to 6.5% * * In the absence of unequivocal hyperglycemia, diagnosis requires two abnormal test results (i.e. HbA1c and glucose) or two abnormal results from specimens collected at two different timepoints. Estimated Average Glucose 186(H) 68 - 114 [facility] Comment: The ADA recommends reporting an estimated Average Glucose (eAG) with all hemoglobin A1c results using the equation derived from a study of 501 normal diabetic adults. Minority populations were underrepresented and children were not included. The EAG is not equivalent to a fasting glucose. Blood 11/06/2023 6:31 AM CONSTRUCTION PLANT OPERATOR 11/06/2023 11:28 AM CONSTRUCTION PLANT OPERATOR Quinn Covarrubias MD LABORATORY Performing Organization Address [facility] Co de Phone Number [address] [address] * (ABNORMAL) POTASSIUM (11/05/2023 4:48 PM CONSTRUCTION PLANT OPERATOR) Potassium 3.2(L) 3.5 - 5.3 mEq/L [facility] Blood 11/05/2023 4:48 PM CONSTRUCTION PLANT OPERATOR 11/05/2023 4:58 PM CONSTRUCTION PLANT OPERATOR Quinn Covarrubias MD LABORATORY [facility] [address] [place] [address] * CT HEAD NO IV CONTRAST (11/05/2023 11:44 AM CONSTRUCTION PLANT OPERATOR) Only the most recent of3 resultswithin the time period is included. Anatomical Region Laterality Modality Skull Computed Tomogra phy 11/05/2023 12:1 6 PM CONSTRUCTION PLANT OPERATOR Impressions 11/05/2023 12:38 PM CONSTRUCTION PLANT OPERATOR Impression: Stable head CT as compared to the study performed 7 hours earlier. Intra-axial and extra-axial hemorrhage(s) without midline shift or hydrocephalus. The basal cisterns are patent. Reading Radiologist: Ford Fernández Narrative 11/05/2023 12:38 PM CONSTRUCTION PLANT OPERATOR Exam: Head CT without contrast, 11/05/2023 [...] * EKG ADULT (12-LEAD) (11/05/2023 6:38 AM CONSTRUCTION PLANT OPERATOR) 11/05/2023 6:38 AM CONSTRUCTION PLANT OPERATOR Impressions [facility] EKG ORDERS - 11/05/2023 6:38 AM CONSTRUCTION PLANT OPERATOR SINUS RHYTHM RIGHT BUNDLE BRANCH BLOCK ??[120+ ms QRS DURATION, UPRIGHT V1, 40+ ms S IN I/aVL/V4/V5/V6] ABNORMAL ECG P-R Interval 151 ms QRS Interval 128 ms QT Interval 420 ms QTC Interval 462 ms P [place] 9 QRS [place] 27 T Wave [place] 70 Narrative Procedure Note Lauren Mills MD - 11/06/2023 IMPRESSION SINUS RHYTHM RIGHT BUNDLE BRANCH BLOCK [120+ ms QRS DURATION, UPRIGHT V1, 40+ ms S INI/aVL/V4/V5/V6] ABNORMAL ECG P-R Interval 151 ms QRS Interval 128 ms QT Interval 420 ms QTC Interval 462 ms P [place] 9 QRS [place] 27 T Wave [place] 70 Quinn Covarrubias MD EKG Performing Organization Address City/[facility]/ZIP Co de Phone Number [facility] ORDERS * (ABNORMAL) ICU BLOOD GAS (11/05/2023 4:27 AM CONSTRUCTION PLANT OPERATOR) PH Art 7.38 7.35 - 7.45 [facility] PCO2 Art 42 35 - 45 mmHG [facility] PO2 Art 99(H) 75 - 85 mmHG [facility] Bicarb Art 25 22 - 26 mEq/L [facility] O2 Sat Art 98 96 - 99 % [facility] Base Exc Art 0.0 -10.0 - 2.0 mEq/L [facility] Blood Arterial 11/05/2023 4: 27 AM CONSTRUCTION PLANT OPERATOR 11/05/2023 4:34 AM CONSTRUCTION PLANT OPERATOR Devin Dougherty MD LABORATORY [facility] [address] [address] * (ABNORMAL) TROP 6H (11/05/2023 4:27 AM CONSTRUCTION PLANT OPERATOR) 6H Trop 51(H) <=14 ng/L [facility] 6H Delta Significan t(A) Not Significant [facility] Blood 11/05/2023 4:27 AM CONSTRUCTION PLANT OPERATOR 11/05/2023 4:35 AM CONSTRUCTION PLANT OPERATOR Devin Dougherty MD LABORATORY Performing Organization Address [facility] Co de Phone Number [facility] [address] [address] * (ABNORMAL) TROP 4H (11/05/2023 2:58 AM CONSTRUCTION PLANT OPERATOR) 4H Trop 39(H) <=14 ng/L [facility] 4H Delta Significan t(A) Not Significant [facility] Blood 11/05/2023 2:58 AM CONSTRUCTION PLANT OPERATOR 11/05/2023 3:48 AM CONSTRUCTION PLANT OPERATOR Devin Dougherty MD LABORATORY Performing Organization Address [facility] de Phone Number [facility] [address] [address] * (ABNORMAL) PANEL HEPATIC FUNCTION (11/05/2023 1:32 AM CONSTRUCTION PLANT OPERATOR) Alk Phos 111(H) 35 - 104 IU/L [facility] Total Protein 6.5 6.4 - 8.3 g/dL [facility] Bili Direct na <=0.3 mg/dL [facility] Comment:Direct Bilirubin = < 0.2. Accuracy of result suspect due to lipemia. Albumin 3.8 3.8 - 5.1 g/dL [facility] Bili Total <0.2 <=1.2 mg/dL [facility] ALT (SGPT) na <=33 [facility] Comment:ALT = 15. Accuracy o f result suspect due to lipemia. AST(SGOT) na 5 - 40 [facility] Comment:AST = 27. Accuracy o f result suspect due to lipemia. Blood 11/05/2023 1:32 AM CONSTRUCTION PLANT OPERATOR 11/05/2023 1:32 AM CONSTRUCTION PLANT OPERATOR Devin Dougherty MD LABORATORY Performing Organization Address [facility] Co de Phone Number [facility] [address] [address] * FIBRINOGEN (11/05/2023 1:32 AM CONSTRUCTION PLANT OPERATOR) Only the most recent of2 resultswithin the time period is included. Fibrinogen 262 200 - 400 mg/dL [facility] Blood 11/05/2023 1:32 AM CONSTRUCTION PLANT OPERATOR 11/05/2023 1:32 AM CONSTRUCTION PLANT OPERATOR Devin Dougherty MD LABORATORY Performing Organization Address [facility] de Phone Number [facility] [address] [address] * CK, TOTAL (11/05/2023 1:32 AM CONSTRUCTION PLANT OPERATOR) CK 56 26 - 192 IU/L [facility] Blood 11/05/2023 1:32 AM CONSTRUCTION PLANT OPERATOR 11/05/2023 1:32 AM CONSTRUCTION PLANT OPERATOR Devin Dougherty MD LABORATORY Performing Organization Address [facility] de Phone Number [facility] [address] [address] * PTT (APTT) (11/05/2023 1:32 AM CONSTRUCTION PLANT OPERATOR) Only the most recent of2 resultswithin the time period is included. APTT 26.0 25.0 - 37.0 sec [facility] Blood 11/05/2023 1:32 AM CONSTRUCTION PLANT OPERATOR 11/05/2023 1:32 AM CONSTRUCTION PLANT OPERATOR Devin Dougherty MD LABORATORY Performing Organization Address [facility] Co de Phone Number [facility] [address] [address] * (ABNORMAL) TROP 2H (11/05/2023 1:18 AM CONSTRUCTION PLANT OPERATOR) 2H Trop 18(H) <=14 ng/L [facility] 2H Delta Indeterminate Not Significant [facility] Blood 11/05/2023 1:18 AM CONSTRUCTION PLANT OPERATOR 11/05/2023 1:45 AM CONSTRUCTION PLANT OPERATOR Devin Dougherty MD LABORATORY Performing Organization Address [facility] Co de Phone Number [facility] [address] [address] * LACTATE (LACTIC ACID) (11/05/2023 1:18 AM CONSTRUCTION PLANT OPERATOR) Only the most recent of2 resultswithin the time period is included. Lactate 1.9 0.7 - 2.1 mmol/L [facility] Blood 11/05/2023 1:18 AM CONSTRUCTION PLANT OPERATOR 11/05/2023 1:27 AM CONSTRUCTION PLANT OPERATOR Narrative [facility] - 11/05/2023 1:45 AM CONSTRUCTION PLANT OPERATOR Send specimen on ice! Devin Dougherty MD LABORATORY Performing Organization Address [facility] Co de Phone Number [address] [address] * CALCIUM,IONIZED (11/05/2023 1:18 AM CONSTRUCTION PLANT OPERATOR) PH 7.37 7.32 - 7.42 [facility] ICA, Actual 4.82 4.40 - 5.20 mg/dL [facility] ICA, pH Corrected 4.75 4.40 - 5.20 mg/dL [facility] Blood 11/05/2023 1:18 AM CONSTRUCTION PLANT OPERATOR 11/05/2023 1:27 AM CONSTRUCTION PLANT OPERATOR Narrative [facility] - 11/05/2023 1:44 AM CONSTRUCTION PLANT OPERATOR Send specimen on ice! Devin Dougherty MD LABORATORY Performing Organization Address [facility] Co de Phone Number [address] [address] * CT HEAD-NECK - ANGIO - W/IV CON (11/05/2023 12:09 AM CONSTRUCTION PLANT OPERATOR) Anatomical Region Laterality Modality Skull Computed Tomogra phy 11/05/2023 12:2 1 AM CONSTRUCTION PLANT OPERATOR Impressions 11/05/2023 10:22 AM CONSTRUCTION PLANT OPERATOR Impression: ?? Slightly increased size of [...] Fernández Resident: Laith Berkowitz 11/05/2023 10:22 AM CONSTRUCTION PLANT OPERATOR CT angiogram of the Head with [...] and reviewed by the Radiologist using the [employer] workstation, and these images were archived in [...] and reviewed by the Radiologist using the [employer] workstation,and these images were archived in the [...] NEURO * (ABNORMAL) URINALYSIS,TOTAL (11/04/2023 11:55 PM CONSTRUCTION PLANT OPERATOR) Color COLORLESS YELLOW [facility] Appearance CLEAR CLEAR [facility] Urine Glucose 100(A) NEGATIVE mg/dL [facility] Bili UA NEGATIVE NEGATIVE [facility] Ketones NEGATIVE NEGATIVE [facility] Specific [place] 1.036(A) 1.003 - 1.030 [facility] Blood Ur NEGATIVE Neg-Trace [facility] PH Urine 7.5(H) 5.0 - 7.0 [facility] Protein Ur TRACE Neg-Trace [facility] Urobilinogen NORMAL NORMAL EU/dL [facility] Nitrite Ur NEGATIVE NEGATIVE [facility] Leuk Est NEGATIVE Neg-Trace [facility] WBC Ur 0-5 0 - 5 perHPF [facility] RBC Ur 0-3 0 - 3 perHPF [facility] SQ EPITH 0-5 0 - 5 perHPF [facility] Urinalysis Performed at: [facility] Urine 11/04/2023 11:5 5 PM CONSTRUCTION PLANT OPERATOR 11/05/2023 12:03 AM CONSTRUCTION PLANT OPERATOR Devin Dougherty MD LABORATORY [facility] [address] [place] [address] * PF INSERT CATH,ART,PERCUT,SHORTTERM (11/04/2023 11:43 PM CONSTRUCTION PLANT OPERATOR) Narrative Rito Graf MD - 11/04/2023 11:43 PM CONSTRUCTION PLANT OPERATOR Priscilla Holcomb MD ? 11/04/2023 11:44 PM Arterial Line Performed by: Priscilla Holcomb MD Authorized by: Rito Graf MD ?? Consent: ??Consent obtained: ??Verbal ??Consent given by: ??Patient ??Risks discussed: ??Pain, bleeding and infection Home protocol: ??Patient identity confirmed: ??Verbally with patient, [...] * ED EKG (12-LEAD) (11/04/2023 11:25 PM CONSTRUCTION PLANT OPERATOR) 11/04/2023 11:2 5 PM CONSTRUCTION PLANT OPERATOR Impressions [facility] EKG ORDERS - 11/04/2023 11:25 PM CONSTRUCTION PLANT OPERATOR SINUS TACHYCARDIA RIGHT BUNDLE BRANCH BLOCK ??[120+ ms QRS DURATION, UPRIGHT V1, 40+ ms S IN I/aVL/V4/V5/V6] ABNORMAL ECG P-R Interval 173 ms QRS Interval 127 ms QT Interval 395 ms QTC Interval 458 ms P [place] 57 QRS [place] 34 T Wave [place] 43 Narrative Procedure Note Vineet Díaz MD - 11/05/2023 IMPRESSION SINUS TACHYCARDIA RIGHT BUNDLE BRANCH BLOCK [120+ ms QRS DURATION, UPRIGHT V1, 40+ ms S INI/aVL/V4/V5/V6] ABNORMAL ECG P-R Interval 173 ms QRS Interval 127 ms QT Interval 395 ms QTC Interval 458 ms P [place] 57 QRS [place] 34 T Wave [place] 43 Devin Dougherty MD EKG [facility] * CT SPINE THORACIC NO IV CON (11/04/2023 11:05 PM CONSTRUCTION PLANT OPERATOR) Anatomical Region Laterality Modality Thoracic Spine Computed Tomogra phy 11/04/2023 11:2 3 PM CONSTRUCTION PLANT OPERATOR Impressions 11/05/2023 9:22 AM CONSTRUCTION PLANT OPERATOR Impression: 1. No suspected acute fracture or dislocation of the thoracic or lumbar spine. ?? 2. Stox-gu-cohxvnie lumbar spondylosis without suspected high-grade spinal canal or neural foraminal narrowing. I have personally reviewed the image(s) and initial interpretation, and I agree with the findings as documented by the resident/fellow. Reading Radiologist: Ford Fernández Resident: Laith Berkowitz 11/05/2023 9:22 AM CONSTRUCTION PLANT OPERATOR Exam: Thoracic and Lumbar Spine CT [...] dislocation of the thoracic or lumbarspine. 2. Waen-uv-eowmgpcw lumbar spondylosis without suspected high-grade spinalcanal or neural foraminal narrowing. I have personally reviewed the image(s) and initial interpretation, and Iagree with the findings as documented by the resident/fellow. Reading Radiologist: Ford Fernández Resident: Laith Berkowitz Devin Dougherty MD RAD CT NEURO * CT SPINE LUMBAR NO IV CON (11/04/2023 11:05 PM CONSTRUCTION PLANT OPERATOR) Anatomical Region Laterality Modality Lumbar Spine Computed Tomogra phy 11/04/2023 11:2 3 PM CONSTRUCTION PLANT OPERATOR Impressions 11/05/2023 9:22 AM CONSTRUCTION PLANT OPERATOR Impression: 1. No suspected acute fracture or dislocation of the thoracic or lumbar spine. ?? 2. Laqv-ep-sjhqntfe lumbar spondylosis without suspected high-grade spinal canal or neural foraminal narrowing. I have personally reviewed the image(s) and initial interpretation, and I agree with the findings as documented by the resident/fellow. Reading Radiologist: Ford Fernández Resident: Laith Berkowitz Narrative 11/05/2023 9:22 AM CONSTRUCTION PLANT OPERATOR Exam: Thoracic and Lumbar Spine CT [...] dislocation of the thoracic or lumbarspine. 2. Ybxf-fl-vgpvnkgv lumbar spondylosis without suspected high-grade spinalcanal or neural foraminal narrowing. I have personally reviewed the image(s) and initial interpretation, and Iagree with the findings as documented by the resident/fellow. Reading Radiologist: Ford Fernández Resident: Laith Berkowitz Devin Dougherty MD RAD CT NEURO * CT SPINE CERVICAL NO IV CON (11/04/2023 11:05 PM CONSTRUCTION PLANT OPERATOR) Anatomical Region Laterality Modality Cervical Spine Computed Tomogra phy 11/04/2023 11:2 0 PM CONSTRUCTION PLANT OPERATOR Impressions 11/05/2023 8:27 AM CONSTRUCTION PLANT OPERATOR Impression: ?? 1. No acute fracture or traumatic subluxation of the cervical vertebrae. 2. Mild degenerative changes of the cervical spine without high-grade spinal canal or neural foraminal narrowing. I have personally reviewed the image(s) and initial interpretation, and I agree with the findings as documented by the resident/fellow. Reading Radiologist: Ford Fernández Resident: Laith Berkowitz Narrative 11/05/2023 8:27 AM CONSTRUCTION PLANT OPERATOR Exam: Cervical spine CT without contrast, [...] spinal canal narrowing. C5-6: Mild left and fbop-ex-rpotlwaf right neural foraminal narrowing. Borderline mild spinal [...] spinal canal narrowing. C5-6: Mild left and saiu-ke-ieomwfcp right neural foraminal narrowing.Borderline mild spinal canal [...] CT CHEST/ABD/PELVIS W/IV CONT (11/04/2023 11:05 PM CONSTRUCTION PLANT OPERATOR) Anatomical Region Laterality Modality Chest Computed Tomogra phy 11/04/2023 11:2 9 PM CONSTRUCTION PLANT OPERATOR Impressions 11/05/2023 6:33 AM CONSTRUCTION PLANT OPERATOR Impression: 1. No acute traumatic sequelae [...] Resident: Laith Berkowitz Narrative 11/05/2023 6:33 AM CONSTRUCTION PLANT OPERATOR Comparison: None Indication: Trauma (STAB) ?? [...] ED CHEMISTRY LABS(NA,K,CL,CO2,GLU,CREAT,CA-IONIZED,ANION GAP) (11/04/2023 10:48 PM CONSTRUCTION PLANT OPERATOR) Sodium 144 135 - 148 mEq/L [facility] Chloride 106 92 - 108 mEq/L [facility] AnGap 11 8 - 16 mEq/L [facility] Glucose 234(H) 70 - 100 mg/dL [facility] ICA, Actual 4.52 4.40 - 5.20 mg/dL [facility] ICA, pH Corrected 4.51 4.40 - 5.20 mg/dL [facility] Creatinine 0.81 0.50 - 1.00 mg/dL [facility] BICARB 27(H) 22 - 26 mEq/L [facility] eGFR (2020 CKD-EPI) 73 >=60 ml/min/1.7 3m2 [facility] Comment: The estimated glomerular filtration rate (eGFR) was calculated using the CKD-EPI 2020 creatinine equation, which does not include race as a factor. This equation is validated in individuals 18 years of age and older, and eGFR is normalized to a body surface area of 1.73m^2. Potassium 2.8(AA) 3.5 - 5.3 mEq/L [facility] Comment:Critcal Result Low Blood 11/04/2023 10:4 8 PM CONSTRUCTION PLANT OPERATOR 11/04/2023 10:49 PM CONSTRUCTION PLANT OPERATOR Narrative [facility] - 11/04/2023 10:55 PM CONSTRUCTION PLANT OPERATOR Critical value for Potassium called to and read back by Rafa Hutchins RN in ??EDSTAB 2 at 11/04/2023 22:55:31 CONSTRUCTION PLANT OPERATOR by Eleni Spring [employer]. Devin Dougherty MD LABORATORY Performing Organization Address [facility] Co de Phone Number [facility] [address] [address] * (ABNORMAL) ED HEMOGLOBIN TOTAL (ED ONLY) (11/04/2023 10:48 PM CONSTRUCTION PLANT OPERATOR) [facility] Hgb 10.3(L) 11.5 - 15.7 g/dL [facility] Blood 11/04/2023 10:4 8 PM CONSTRUCTION PLANT OPERATOR 11/04/2023 10:49 PM CONSTRUCTION PLANT OPERATOR Devin Dougherty MD LABORATORY Performing Organization Address [facility] Co de Phone Number [address] [address] * ED INR (11/04/2023 10:45 PM CONSTRUCTION PLANT OPERATOR) [facility] ED INR 1.0 0.8 - 1.1 [facility] Comment: Warfarin Therapeutic Range: Standard Intensity: 2.0 - 3.0 High Intensity: 2.5 - 3.5 Blood 11/04/2023 10:4 5 PM CONSTRUCTION PLANT OPERATOR 11/04/2023 10:48 PM CONSTRUCTION PLANT OPERATOR Devin Dougherty MD LABORATORY Performing Organization Address [facility] Co de Phone Number [address] [address] * EXTRA TUBE - LIGHT GREEN (11/04/2023 10:45 PM CONSTRUCTION PLANT OPERATOR) Pathologist [facility] LIGHT GREEN TUBE Stored [facility] Comment:Green tubes ([place] Heparin) are stored in the lab for 3 days from the collection date. Blood 11/04/2023 10:4 5 PM CONSTRUCTION PLANT OPERATOR 11/04/2023 10:50 PM CONSTRUCTION PLANT OPERATOR Devin Dougherty MD LABORATORY Performing Organization Address City/[facility] Co de Phone Number [facility] [address] [address] * EXTRA TUBE - SST (11/04/2023 10:45 PM CONSTRUCTION PLANT OPERATOR) SST TUBE Stored [facility] Comment:SST tubes (Serum Sep arator) are stored in the lab for 3 days from the collection date. Blood 11/04/2023 10:4 5 PM CONSTRUCTION PLANT OPERATOR 11/04/2023 10:50 PM CONSTRUCTION PLANT OPERATOR Devin Dougherty MD LABORATORY Performing Organization Address [facility] Co de Phone Number [facility] [address] [address] * HS TROPONIN (11/04/2023 10:45 PM CONSTRUCTION PLANT OPERATOR) Pathologist [facility] HS Troponin I 10 <=14 ng/L [facility] Blood 11/04/2023 10:4 5 PM CONSTRUCTION PLANT OPERATOR 11/04/2023 11:05 PM CONSTRUCTION PLANT OPERATOR Narrative [facility] - 11/04/2023 11:36 PM CONSTRUCTION PLANT OPERATOR First Occurrence of the Troponin order is to be drawn Stat by Nursing staff on the unit. Devin Dougherty MD LABORATORY Performing Organization Address [facility] Co de Phone Number [facility] [address] [address] * (ABNORMAL) CBC WITH PLTS/AUTO DIFF (11/04/2023 10:45 PM CONSTRUCTION PLANT OPERATOR) WBC 9.42 4.00 - 10.00 k/cmm [facility] RBC 3.86(L) 3.90 - 5.20 m/cmm [facility] Hgb 9.8(L) 11.5 - 15.7 g/dL [facility] Hematocrit 31.8(L) 34.0 - 45.0 % [facility] MCV 82.4 80.0 - 100.0 fL [facility] MCH 25.4 25.0 - 32.0 pg [facility] MCHC 30.8(L) 31.0 - 36.0 g/dL [facility] RDW 15.3(H) 11.5 - 14.5 % [facility] Plt 292 150 - 400 k/cmm [facility] MPV 11.1 6.5 - 12.5 fL [facility] Automated Abs Neutrophil 5.80 1.70 - 6.50 k/cmm [facility] Comment:Preliminary ANC, Fin al Result to Follow Abs Immature Granulocyte 0.07 0.00 - 0.09 k/cmm [facility] Comment:The Immature Granulo cyte Absolute count contains metamyelocytes and myelocytes. Abs Neutrophil 5.80 1.70 - 6.50 k/cmm [facility] Abs Lymphocyte 2.33 0.80 - 4.00 k/cmm [facility] Abs Monocyte 0.88 0.20 - 1.00 k/cmm [facility] Abs Eosinophil 0.27 0.00 - 0.60 k/cmm [facility] Abs Basophil 0.07 0.00 - 0.20 k/cmm [facility] Blood 11/04/2023 10:4 5 PM CONSTRUCTION PLANT OPERATOR 11/04/2023 11:05 PM CONSTRUCTION PLANT OPERATOR Devin Dougherty MD LABORATORY Performing Organization Address City/[facility] Co de Phone Number [facility] [address] [address] * PRECAUTIONARY TUBE (11/04/2023 10:45 PM CONSTRUCTION PLANT OPERATOR) Prec Tube Precautionary Blood Bank Specimen Received. [facility] Blood 11/04/2023 10:4 5 PM CONSTRUCTION PLANT OPERATOR 11/04/2023 10:52 PM CONSTRUCTION PLANT OPERATOR Devin Dougherty MD LAB TRANSFUSION SER VICES Performing Organization Address City/[facility]/ZIP Co de Phone Number [facility] [address] [address] * (ABNORMAL) ANTI XA HEPARIN UNFRACTIONATED (11/04/2023 10:45 PM CONSTRUCTION PLANT OPERATOR) Anti XA Hep U <0.04(L) 0.30 - 0.70 IU/mL [facility] Blood 11/04/2023 10:4 5 PM CONSTRUCTION PLANT OPERATOR 11/04/2023 11:05 PM CONSTRUCTION PLANT OPERATOR Devin Dougherty MD LABORATORY [facility] [address] [address] * ED US CRITICAL CARE (11/04/2023 10:40 PM CONSTRUCTION PLANT OPERATOR) Anatomical Region Laterality Modality Ultrasound Narrative 11/04/2023 11:28 PM CONSTRUCTION PLANT OPERATOR ED Trauma eFAST Ultrasound Indications: Suspicion [...] Advance Directives For more information, please contact: [phone] Latest Code Status on File Code Status [...] Code Status With Whom? Patient Care Teams Glued Wood Tester Relationship Specialty Start Date End Date Eloise Reeves DO [address] [place] [address] PCP - General Family Medicine 11/06/23
--- OUTSIDE RECORDS SUMMARY | 2023-12-11 20:01 | XMS_ITS | Encounter Summary ---
Author Name Unknown Organization [facility] Address [address] [place] [address] Phone Care Team Providers Care Director Of Casino Marketing Name Role Phone Eloise Reeves DO Primary Care Provider Reason for Visit * Reason Comments Referral TBI * Consult/Test/Treat (Routine) - Closed Specialty Diagnoses / Procedures Referred By Contac t Referred To Contact Physical Medicine and Rehab / PHYSICAL MEDICINE AND REHAB Diagnoses Fall, initial encounter SDH (subdural hematoma) ([facility]) SAH (subarachnoid hemorrhage) ([facility]) Traumatic brain injury with loss of consciousness, initial encounter ([facility]) Jesusita Aiken, TAMMIE, PROPULSION MACHINERY SERVICE ENGINEER [address] [place] [address] [facility] [address] [place] [id number] Referral ID Status Reason Start Date Expiration Date Visits Re quested Visits Authorized [id number] Closed 11/08/2023 11/07/2024 1 1 Encounter Details Date Type Department Care Team (Latest Contact Info) Description 11/27/2023 1:00 PM DINKING MACHINE OPERATOR [facility] [address] [address] Leidy Velazquez PA-C [address] [address] Mild traumatic brain injury, with [...] Coronavirus/COVID-19? No / Unsure 11/04/2023 10:48 PM DINKING MACHINE OPERATOR documented as of this encounter Last Filed Vital Signs Vital Sign Reading Time Taken Comments Blood Pressure 108/71 11/27/2023 12:54 PM DINKING MACHINE OPERATOR Pulse 74 11/27/2023 12:54 PM DINKING MACHINE OPERATOR Temperature - - Respiratory Rate - - Oxygen Saturation - - Inhaled Oxygen Concentration - - Weight 61.6 kg (135 lb 12.8 oz) 024 12:54 PM DINKING MACHINE OPERATOR Height - - Body Mass Index 28.38 11/05/2023 12:03 AM DINKING MACHINE OPERATOR documented in this encounter Patient Instructions * Patient Instructions* Leidy Velazquez PA-C - 11/27/2023 1:00 PM DINKING MACHINE OPERATOR You were seen at [facility] for traumatic brain injury. You have been [...] you do not hear from them, call [phone] to schedule Psychiatry for mood changes, this is for evaluation and treatment recommendations that may include medication. You will need to call to schedule this appointment. Please call [phone] and inform them you have a referral [...] to your scheduled appointment by calling at [phone]. If you miss three or more appointments, [...] plan ahead. Paperwork can be faxed to [phone]. Brain Injury and Physical Medicine & Rehabilitation Contact List Lista de contactos de lesiones cerebrales traum??rochelle, medicina f??gricelda y rehabilitaci??ora Ibrahim Maskxada jenn Jim[employer] Phone To Schedule Appointments Para programar citas Hadii aad dooneeyso inaad norman sameeysato They make appointments for your doctor in the TBI/PMR clinic and your therapists [phone] Staff Nurse Nicolas carney??kirti Davalos Call for questions about medications, symptoms, or paperwork issues You can fax paperwork to [phone]. [phone] Health Information Management (HIM)/Medical Records Registros medicos Ashu Holloway Contact them if you need copies of your medical records at [facility]. If you work with a [facility] they shouldcontact [facility] for their updates. You can also visit them on Blue 1. They are open Sunday-Sunday. If you need a form for Authorization to Release Health Information, you may request one at an appointment or download a form online at: [email or web address] [phone] Patient Billing/ Financial Assistance Facturaci??n Ellie Saunders/Meli duran If you have questions or problems with your medical bills. Financial assistance, insurance issues, or for more information about your medical bill. [phone] Community Resources: The [place] [facility] offers resource facilitation at [email or web address]. Online courses [...] please call the TBI nurse at . ING MACHINE OPERATOR documented in this encounter Progress Notes * Leidy Velazquez PA-C - 11/27/2023 1:00 PM CST [place], [place] [id number] [place] [address]#: [id number] PATIENT: Lucinda Casas : 1940 DATE OF [...] including pre-visit review of separately obtained history, [id number] interaction performing medically appropriate physical exam, patient [...] including pre-visit review of separately obtained history, [id number] interaction performing medically appropriate physical exam, patient counseling/education, interpretation of diagnostic results, care coordination and documentation. External records reviewed through care everywhere, [facility] documentation reviewed for information regarding injury. History collected through review of records, in addition to patient report. 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
--- OUTSIDE RECORDS SUMMARY | 2023-12-11 20:02 | XMS_ITS | Encounter Summary ---
Author Name Unknown Organization [facility] Address [address] [place] [address] Phone Care Team Providers Care Acid Blower Name Role Phone Eloise Reeves DO Primary Care Provider Reason for Referral * Consult/Test/Treat (Routine) - Closed Specialty Diagnoses / Procedures Referred By Selma bhandari Referred To Contact Physical Medicine and Rehab / PHYSICAL MEDICINE AND REHAB Diagnoses Fall, initial encounter SDH (subdural hematoma) ([facility]) SAH (subarachnoid hemorrhage) ([facility]) Traumatic brain injury with loss of consciousness, initial encounter ([facility]) Jesusita Aiken APRN, LABORER CAR BARN [address] [place] [address] [facility] Pm&R Cl [address] [address] Referral ID Status Reason Start Date Expiration Date Visits Re quested Visits Authorized [id number] Closed 11/08/2023 11/07/2024 1 1 K MASON Reason for Visit * Reason Comments Fall * Auth/Cert (Routine) Specialty Diagnoses / Procedures Referred By Contjerrod t Referred To Contact SURGERY Diagnoses SDH (subdural hematoma) ([facility]) Fall, initial encounter Tariq Bobo MD [address] [facility] [id number] [address] [place] [address] [address] [place] [address] Referral ID Status Reason Start Date Expiration Date Visits Re quested Visits Authorized [id number] 1 1 Encounter Details Date Type Department Care Team (Latest Contact Info) Description 11/04/2023 10:39 PM BRICK MASON - 11/16/2023 9:19 AM BRICK MASON Hospital Encounter [facility] Surgery/Trauma/Kimmie ro [address] [place] [id number] Devin Dougherty MD [address] [facility] [place] [address] Quinn Covarrubias MD [address] [place] [address] Gregg Dexter MD [address] [facility] [address] [place] [address] Fall, initial encounter Discharge Disposition: [...] Coronavirus/COVID-19? No / Unsure 11/04/2023 10:48 PM BRICK MASON documented as of this encounter Last Filed Vital Signs Vital Sign Reading Time Taken Comments Blood Pressure 148/51 11/16/2023 4:25 AM BRICK MASON Pulse 61 11/16/2023 4:25 AM BRICK MASON Temperature 36.6 ??C (97.8 ??F) 11/16/2023 4:25 AM CS T Respiratory Rate 16 11/16/2023 4:25 AM BRICK MASON Oxygen Saturation 90% 11/16/2023 4:25 AM BRICK MASON Inhaled Oxygen Concentration - - Weight 69.7 kg (153 lb 10.6 oz) 024 12:03 AM BRICK MASON Height 147.3 cm (4' 10) 11/05/2023 12: 03 AM BRICK MASON Body Mass Index 32.12 11/05/2023 12:03 AM BRICK MASON documented in this encounter Discharge Summaries * [...] determined to be a good fir for [facility] inpatient acute rehab but after 1-2 weeks of therapy she wouldstill need 24/ observation. Due to her insurance it does not pay for a tcu after [facility] [place] [facility]. The family chose to discharge to [...] pale. Neurological: Mental Status: She is alert. Vegetable Washing Machine Operator Needed: no PLANNED DISCHARGE ORDERS: Suture/Miguel: [...] 4:30PM, M-F): Call the Surgery Clinic at [phone] After hours or on Holidays: Call the [facility] retarder operator . Ask the retarder operator to page the general surgery resident geothermal production manager. IF: -- you feel you are getting [...] getting larger: a pupil is the dark umkumiut in the center of the eye - [...] it is often helpful to return to [facility] to be evaluated. If you live far away or are in extreme distress (i.e cannot breathor won't wake up), call 911 and first responders can decide which hospital is best. If you have any questions about your or your loved one's condition after discharge, call [phone] to speak with a nurse. Please contact [...] -- Read all labels for prescription and Geua-ofd-ypmawua medicines. Ask the pharmacist if your prescription [...] documented. Gregg Dexter MD, 11/16/2023 8:18 AM K MASON documented in this encounter Discharge Instructions * Discharge Instr - Speech Language Pathology* Nayeli Alvarado SLP [facility] - 11/15/2023 4:39 PM BRICK MASON Speech-language pathologists (automotive fuel systems converter) assess and treat speech, language, cognition (thinking) [...] your primary Speech-Language Pathologist directly or call [phone]. Electronically signed by Nayeli Alvarado SLP [facility] at 11/15/2023 4:39 PM BRICK MASON documented in this encounter Medications at Time [...] questions. Cornell Solomon RN, 11/16/2023 9:19 AM K MASON * Carolina Awan RN - 11/16/2023 2:30 AM CST Entered chart to leave staff to staff regarding pt's d/c ride in the AM Carolina Awan RN, 11/16/2023 2:30 AM K MASON * Sinai Brady PA-C - 11/15/2023 3:50 [...] II, and HLD, who was admitted to [facility] 11/04/2023 after being found unconscious at the [...] address self care, ADL's, adaptive equipment Continue LEASE ADMINISTRATION ANALYST to address speech, swallow, communication, cognition Regarding [...] of this note have been dictated using [employer] dictation software. Please excuse any photograph enlarger errors and feel free to contact me regarding such errors or confusion regarding intended message. Sinai Brady PA-C, CBIS Pager via [employer] K MASON * Nayeli Alvarado, LEASE ADMINISTRATION ANALYST [facility] - 11/15/2023 2:49 PM CST Speech-Language Pathology Progress Note 11/15/2023 LEASE ADMINISTRATION ANALYST Recommendations Discharge Recommendations (LEASE ADMINISTRATION ANALYST): Post-acute placement recommended. Acute Rehab if meets admission criteria No known barriers to placement Barriers to Discharge (LEASE ADMINISTRATION ANALYST): NA - Post acute placement is recommended and no barriers to placement known. Post Discharge follow-up (LEASE ADMINISTRATION ANALYST): LEASE ADMINISTRATION ANALYST at post-acute placement Recommend PM&R Consult (LEASE ADMINISTRATION ANALYST): Yes, for assessment of post-acute placement needs. Pt appears to be a candidate for higher intensity rehab services. Diet Recommendation: Current Diet : Regular Current Liquid: Thin liquids Medication Administration: Medications with thin liquid Aspiration Precautions: Upright with all eating and drinking Oral Hygiene: Calera teeth 2x/day Positioning Techniques: Seat fully upright [...] Cognitive communication deficit R41.841, Treatment Type:Cognitive-linguistic Treatment (49042, [address]) Treatment Frequency: 2-3x per week CLINICAL IMPRESSIONS Patient presents with severe cognitive-linguistic deficits in areas of attention, working, short-term, and long-term memory, problem solving, reasoning, processing speed, and executive functioning secondary to SDH of the R>L tentorial leaflets and R cerebral convexity, scattered SAH, L periventri cular hemorrhage, and a small L frontal IPH. Ongoing tx is warranted. Speech-Language Pathologist: Nayeli Alvarado SLP [facility], 11/15/2023 2:49 PM Pager: [employer] Electronically signed by Nayeli Alvarado SLP [facility] at 11/15/2023 4:05 PM BRICK MASON * Randy Barragan - 11/15/2023 10:27 AM CST Transportation set for patient as follows: Date and time () of patient departure: 11/16/2023 @0900 Destination: [facility] [place] [address] Type of ride: wheelchair Reference #[id number] Transportation vendor of ride: [employer] [phone] * If this ride needs to be [...] Clinical Coordinators will be informed via a [employer] page. PCS form was completed in Progress Notes and is ready to be signed and routed to vendor by requestor(for stretcher rides only). Randy Barragan, 11/15/2023 2:49 PM Patient name: Lucinda Kennedy Date of : 1940 Patient Admitting diagnosis: Patient Active Problem List Diagnosis Fall, initial encounter Attending provider: Quinn Covarrubias MD Insurance: [facility] Secondary insurance: N/A Height: Height: 147.3 cm (4' 10) Weight: Weight: 69.7 kg (153 lb 10.6 oz) K MASON * Fide Reis - 11/15/2023 10:23 AM CST Preadmission Screening Submitter InformationPerson Being ReferredMedical InformationADL'[facility] HospitalSubmitResults Results Thank you for submitting a [...] help, contact the Senior LinkAge Line at [phone] or click to contact us. Print this page You have successfully submitted the preadmission screening (PAS) to the Senior LinkAge Line on: Created On 11/15/2023 10:08 AM Your confirmation number is: [id number] Results Level of Care: Based on the information you provided, it appears this person meets level of care for purposes of MA payment. OBRA: It appears this person does not need an OBRA Level II assessment. Submitter Information Form Type PAS Submitter First and Last Name Fide Reis Direct Email [email or web address] Agency [facility] Service Type Hospital [address] [facility] [place] [address] Is your Agency outside [place]? Person Being Admitted to Nursing Facility Legal first name Lucinda Last name Kennedy Date of 1940 Age 83 Gender Female Marital Status M= living with spouse Race White - W Ethnicity / Currently living with: 02 Living with spouse/parent Planned living with 02 Living with spouse/parent Housing Type Home or apartment, including assisted living () Mailing Address [address] [place] [address] [address] [facility] Medical Information Reason for nursing facility [...] facility the person will admit to?Yes Provider [facility] Nursing Facility Service Type Correction [address] If your provider is not listed [...] Phone Fax Patient Preferred [facility]irement [address] [facility] [address] [phone] -- Internal Comment last updated by Bill Olivera 11/15/[address] [place] [address] offered us bed today. Working on setting up a ride. Team informed. iBll Olivera, 11/15/2023 10:01 AM Spoke with Italia. Will discuss further with her team. May likely admit tomorrow. May need prior auth. Bill Olivera, 11/15/2023 9:26 AM [facility] Considering Need clinical review N/A [address] [facility] [address] [phone] Internal Comment last updated by Fide Reis 11/14/2023 0926 Shared female .. bed .Fide Reis, 11/14/2023 9:25 AM [facility] Pending - Request Sent N/A [address] [facility] [address] Internal Comment last updated by Fide Reis 11/14/2023 0918 LVM for admissions .Fide Reis, 11/14/2023 9:18 AM [facility] Pending - Request Sent N/A [address] [facility] [phone] -- Internal Comment last updated by Fide Reis 11/14/2023 0920 LVM for Renata in admissions Rere Reissushil Johansen, 11/14/2023 9:20 AM [facility] Pending - Request Sent N/A [address] [address] [phone] Internal Comment last updated by Fide Reis 11/14/2023 0921 LVM for admissions .Savanna Reisgee Johansen, 11/14/2023 9:21 AM [facility] Pending - Request Sent N/A [address] [facility] [address] [phone] -- [facility] Pending - Request Sent N/A [address] [address] [phone] -- [facility] Pending - Request Sent N/A [address] [facility] [address] [phone] -- [facility] Pending - Request Sent N/A 9200 [facility] [address] -- [facility] Pending - Request Sent N/A 213 [facility] [address] [phone] -- [facility] Pending - Request Sent N/A [address] [address] [phone] -- [facility] Declined Not a TCU N/A [address] [facility] [address] [phone] Internal Comment last updated by Marycarmen Caldwell 11/09/2023 1033 Not a TCU per the [phone] phone number connected to the same address. Marycarmen Caldwell,11/09/2023 10:33 AM [facility] Declined Closed N/A [address] [facility] [address] [phone] Internal Comment last updated by Fide Reis 11/08/2023 1359 Has been closed for 1 year . Fide Reis, 11/08/2023 1:59 PM [facility] Declined No Contract with Patient's Insurance Carrier N/A [address] [facility] [address] Internal Comment last updated by Bill Olivera 11/15/2023 0840 Family doesn't want it here. Bill Olivera, 11/15/2023 8:40 AM [facility] B3.320 Declined TCU N/A [address] [place] [place] [phone] -- Internal Comment last updated by Bill Olivera 11/09/2023 0829 PM&R continues to follow. If DC imminent, recommending TCU instead. Bill Olivera, 11/09/2023 8:29 AM Pending PMnR recs. Bill Olivera, 11/06/2023 11:04 AM [facility] Declined Facility Cannot Provide for Patient's needs N/A [address] [place] [address] [phone] -- [facility] Declined Closed N/A [address] [place] [address] [phone] -- Internal Comment last updated by Marycarmen Caldwell 11/09/2023 1034 Permanently closed [facility] Declined Family choice N/A [address] [facility] [address] [phone] -- Internal Comment last updated by Fide Reis 11/14/2023 0916 LVM for admissions. Fide Reis, 11/14/2023 9:16 AM [facility] Declined Family choice N/A [address] [facility] [address] [phone] -- [facility] Declined Family choice N/A [address] [facility] [address] [phone] -- [facility] Declined Bed not available N/A [address] [facility] [address] [phone] -- Home Medical Care Coordination has not been started for this encounter. 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 I discussed with the resident and agree with the resident???s findings and plan documented in the resident???s note from above. Anyrevisions by me are documented. Gregg Dexter MD, 11/15/2023 3:39 PM K MASON * Gregg Dexter MD - 11/14/2023 11:58 [...] documented. Gregg Dexter MD, 11/15/2023 3:38 PM K MASON * Sharri Price, OTR/L - 11/14/2023 11:00 [...] Functional activity: 8 minutes RAFAEL Medellin/Kelton Pager: [employer] OT Department K MASON * Carola Spence, OIL MIXER - 11/14/2023 10:00 AM CST Images from [...] intensity rehab services S: We are in [place].. Well if we are in [place] I told Wan to go to the [...] Quality (General): Shuffling;Unsteady Stairs Assistive Devices Used: (POURER CRANE LADLE) Sitting Static Balance Level of Assistance: Upper [...] SLS) Vertical/horizontal head turns - slows requires POURER CRANE LADLE Amb slow/fast : no significant change achieved Education : TCU vs Acute rehab and amount of assist patient will require upon dc home which is likely general supervision Interdisciplinary Communication PA/BED MAKER: discussed patient Filler Feeder: daughter wishing to discuss POA Family: present [...] transfer bed to/from chair with (6) Modified [place] with sliding board or pivot method. By 11-17-2023 Outcome: In progress Goal: Patient will transfer sit to/from stand Description: Patient will transfer sit to/from stand with (6) Modified [place] By 11-17-2023. Outcome: In progress Problem: Decreased Ambulatory Skills Goal: Improve gait Description: Ambulate 100 meters using Front - wheeled walker with (6) Modified [place] By 11-17-2023. Outcome: In progress Goal: Improve gait on stairs Description: Ascend/descend 7 +7 stairs using Cane with (6) Modified [place] .By 11-17-2023 Outcome: In progress Problem: Decreased [...] least AD, stairs for home usage daily. OIL MIXER Appropriate: Yes Carola Spence PTA 11/14/2023 Pager: [facility] PT Dept K MASON * Sinai Brady PA-C - 11/14/2023 9:48 [...] II, and HLD, who was admitted to [facility] 11/04/2023 after being found unconscious at the [...] address self care, ADL's, adaptive equipment Continue LEASE ADMINISTRATION ANALYST to address speech, swallow, communication, cognition Regarding [...] of this note have been dictated using [employer] dictation software. Please excuse any photograph enlarger errors and feel free to contact me regarding such errors or confusion regarding intended message. Sinai Brady PA-C, CBIS Pager via [employer] Total time spent on this encounter, on the date of service including pre-visit review of separatelyobtained history, [id number] interaction performing medically appropriate physical exam, patient counseling/education, interpretation of diagnostic results, care coordination and documentation was 50 minutes. K MASON * Sharri Price OTR/Kelton - 11/13/2023 4:49 [...] dressing task at Min A including donning boat carpenter mechanic socks and shorts at EOB. Patient completing light g/h tasks while seated in chair bedside with s/u. 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 Acute Rehab if meets admission criteria No known barriers to placement Barriers to Discharge (LEASE ADMINISTRATION ANALYST): NA - Post acute placement is recommended and no barriers to placement known. Post Discharge follow-up (LEASE ADMINISTRATION ANALYST): LEASE ADMINISTRATION ANALYST at post-acute placement Recommend PM&R Consult (LEASE ADMINISTRATION ANALYST): Yes, for assessment of post-acute placement needs. Pt appears to be a candidate for higher intensity rehab services. Diet Recommendation: Current Diet : Regular Current Liquid: Thin liquids Medication Administration: Medications with thin liquid Aspiration Precautions: Upright with all eating and drinking Oral Hygiene: Calera teeth 2x/day Positioning Techniques: Seat fully upright [...] Cognitive communication deficit R41.841, Treatment Type:Cognitive-linguistic Treatment (76853, [address]) Treatment Frequency: 2-3x per week CLINICAL IMPRESSIONS Severe cognitive-linguistic deficits within attention, memory, problem solving, reasoning, and executive functioning. Ongoing cognitive-linguistic dx/tx is needed. Speech-Language Pathologist: Sera Fleming SLP [facility], 11/13/2023 1:14 PM Pager: [employer] K MASON * Jesusita Aiken APRN, LABORER CAR BARN - 11/13/2023 8:21 AM CST SURGERY TRAUMA [...] Jesusita Aiken APRN, EMILY, 11/13/2023 11:17 AM K MASON * Carola Spence PTA - 11/12/2023 10:30 [...] (Numeric): 0 (reports she has no pain) O:Vegetable Washing Machine Operator Used: None needed Mental Status Mental [...] Shuffling;Unsteady -with nonuse of gait and vs POURER CRANE LADLE - patient exhibits significantly shortened step length Stairs Number of Steps: 5 Stair Rails: Right rail Stairs : Minimal assist Stairs Method: Ascend step-to pattern;Descend reciprocal pattern (max verbal cues for sequencing) Assistive Devices Used: (POURER CRANE LADLE) -catches foot on each step Sitting Static [...] transfer bed to/from chair with (6) Modified [place] with sliding board or pivot method. By 11-17-2023 Outcome: In progress Goal: Patient will transfer sit to/from stand Description: Patient will transfer sit to/from stand with (6) Modified [place] By 11-17-2023. Outcome: In progress Problem: Decreased Ambulatory Skills Goal: Improve gait Description: Ambulate 100 meters using Front - wheeled walker with (6) Modified [place] By 11-17-2023. Outcome: In progress Goal: Improve gait on stairs Description: Ascend/descend 7 +7 stairs using Cane with (6) Modified [place] .By 11-17-2023 Outcome: In progress Problem: Decreased [...] least AD, stairs for home usage daily. OIL MIXER Appropriate: Yes Carola Spence PTA 11/12/2023 Pager: [employer] PT Dept K MASON * Gregg Dexter MD - 11/12/2023 7:59 [...] documented. Gregg Dexter MD, 11/12/2023 7:19 PM K MASON * Amelia Lobo MD - 11/11/2023 7:53 [...] 11/11/2023 07:56 PGY-5 General Surgery Resident Pager: [phone] or via [employer] K MASON Associated attestation - Mariama Catherine DO - 11/12/2023 2:39 PM BRICK MASON FACULTY NOTE I saw and evaluated the [...] on the Primary Treatment Team, click here. K MASON Associated attestation - Mariama Catherine DO - 11/12/2023 2:39 PM BRICK MASON FACULTY NOTE I saw and evaluated the patient on the date of the resident's note. I discussed with the resident and agree with the resident???s findings and plan documented in the resident???s note from above. Anyrevisions by me are documented. Mariama Catherine DO, 11/12/2023 2:39 PM * Olivia Johnson RN - 11/09/2023 11:34 PM CST Shift [id number] Pt A&O to self and family member, pt pleasantly confused, spouse at bedside, pt VSS, on 2L to 4L via facemask to maintain oxygen above 90%. Pt denies bonita, pt up with AX1 with GB and walker, call light within reach, bed alarm on. K MASON * Carola Spence PTA - 11/09/2023 3:35 [...] patient adamantly denies having pain this PM O:Vegetable Washing Machine Operator Used: None needed Mental Status Mental [...] With approach Clarissa is in bed - marine underwriter notes significant improvement in alertness and participation in therapy this PM. She is pleasantly confused and often reports we are in [place], [place] - writerredirects that she is at the hospital in [place], [place]. Exhibits significant improvement with ambthis PM [...] transfer bed to/from chair with (6) Modified [place] with sliding board or pivot method. By 11-17-2023 Outcome: In progress Goal: Patient will transfer sit to/from stand Description: Patient will transfer sit to/from stand with (6) Modified [place] By 11-17-2023. Outcome: In progress Problem: Decreased Ambulatory Skills Goal: Improve gait Description: Ambulate 100 meters using Front - wheeled walker with (6) Modified [place] By 11-17-2023. Outcome: In progress Goal: Improve gait on stairs Description: Ascend/descend 7 +7 stairs using Cane with (6) Modified [place] .By 11-17-2023 Outcome: In progress Problem: Decreased [...] least AD, stairs for home usage daily. OIL MIXER Appropriate: Yes Carola Spence PTA 11/09/2023 Pager: [employer] PT Dept K MASON * Juhi Dent, PharmD - 11/09/2023 2:58 [...] ordered Juhi Dent, WalterD 11/09/2023 14:58 [employer] K MASON * Sera Fleming SLP CCC - 11/09/2023 11:20 AM CST Speech Language Pathology: Attempted to see patient this am x2. Pt sleeping soundly and not waking sufficiently for tx. Will re-attempt to see patient today as schedule permits. Sera Fleming SLP CCC, 11/09/2023 11:20 AM K MASON * Jesusita Aiken, CALIBRATION TESTER, LABORER CAR BARN - 11/09/2023 7:31 AM CST SURGERY TRAUMA PROGRESS NOTE -BED MAKER Lucinda Kennedy : 1940 Sex: female ASSESSMENT: [...] Resident and Staff Physician. Jesusita Aiken APRN, LABORER CAR BARN, 11/09/2023 7:32 AM Discharge Milestones Documentation Discharge Milestones completed daily by the documenting provider on the Primary Treatment Team, click here. K MASON * Carola Spence, OIL MIXER - 11/08/2023 2:30 PM CST Physical Therapy [...] perform) Heel/Toe Raises: 10 reps Interdisciplinary Communication PA/BED MAKER: updated PM&R PA following session RN: ok [...] bed and her eyes are closed. When marine underwriter states her voice she responds right away but her eyes do not open. Electrical Cad Technician cues patient to move supine > seated [...] transfer bed to/from chair with (6) Modified [place] with sliding board or pivot method. By 11-17-2023 Outcome: In progress Goal: Patient will transfer sit to/from stand Description: Patient will transfer sit to/from stand with (6) Modified [place] By 11-17-2023. Outcome: In progress Problem: Decreased Ambulatory Skills Goal: Improve gait Description: Ambulate 100 meters using Front - wheeled walker with (6) Modified [place] By 11-17-2023. Outcome: In progress Goal: Improve gait on stairs Description: Ascend/descend 7 +7 stairs using Cane with (6) Modified [place] .By 11-17-2023 Outcome: In progress Problem: Decreased [...] least AD, stairs for home usage daily. OIL MIXER Appropriate: Yes Carola Spence PTA 11/08/2023 Pager: [facility] K MASON * Bill Olivera - 11/08/2023 12:37 PM CSTSummary: DC Planning DC Planning Patient is near medical readiness to DC to next level of care. It is not yet clear if she will be aKnapp candidate yet. Electrical Cad Technician spoke with patient's daughter over the phone. Also, had spoken with patient's father earlierin the week. We will start looking for TCUs around [place]. Also, she will do further research and call me back with more options. CC explained that we can't guarantee placement in their preferred place, this is up to facility, insurance coverage and bed availability. Also, Medicare patients will not be able to stay in the hospital indefinitely while we look for their preferred TCU. K MASON * Victor M Enrique MD - 11/08/2023 12:00 PM CST Images from the original note were not included. SURGERY TRAUMA PROGRESS NOTE -PGY 1 Lucinda Romo Kennedy : 1940 Sex: female ASSESSMENT: 83 y.o. yo female with SDH R cerebral convexity and falx, scattered SAH and periventricular hemorrhage . The following services have been consulted PM&R, LEASE ADMINISTRATION ANALYST. Night Events: Nurse reported weakness of right leg overnight during neuro checks, upon examination by overnight resident determined decreased rom 2/2 to right ankle pain. -Pt required 3 prn doses of labetalol overnight to maintain goal of sbp<160 Day Events: -Patient cleared by LEASE ADMINISTRATION ANALYST and has resumed regular diet -Restarted prior oral bp regimen -CXR not concerning for pneumonia -Procal WNL -Started Naproxen BID and OIL MIXER allopurinol for suspected gout flare PLAN: Diet: [...] Victor M Enrique MD, 11/09/2023 8:29 AM K MASON * Sinai Brady PA-C - 11/08/2023 11:33 AM CST Physical Medicine & Rehabilitation Follow-Up Lucinda Kennedy : 1940 Sex: female Patient lethargic, rouses briefly to acknowledge marine underwriter before returning to sleep. Unable to [...] II, and HLD, who was admitted to [facility] 11/04/2023 after being found unconscious at the [...] address self care, ADL's, adaptive equipment Continue LEASE ADMINISTRATION ANALYST to address speech, swallow, communication, cognition Regarding [...] of this note have been dictated using [employer] dictation software. Please excuse any photograph enlarger errors and feel free to contact me regarding such errors or confusion regarding intended message. Sinai Brady PA-C Pager via [employer] K MASON * Ruby Franklin, OTR/L - 11/08/2023 10:10 AM CST OT NOTE: Attempted OT session but pt was too lethargic to meaningful participate, falling asleep quickly andmumbling responses to questions. Will try to return later this PM as schedule allows (tomorrow willschedule session in the PM as RN reports she is usually more alert after 2:00pm). Aubree Franklin, OTR / L 11/08/2023 K MASON * Sera Fleming, STEPHIE [facility] - 11/08/2023 9:26 AM CST Speech-Language Pathology Progress Note 11/08/2023 LEASE ADMINISTRATION ANALYST Recommendations Discharge Recommendations (LEASE ADMINISTRATION ANALYST): Post-acute placement recommended. Acute Rehab if meets admission criteria No known barriers to placement Barriers to Discharge (LEASE ADMINISTRATION ANALYST): NA - Post acute placement is recommended and no barriers to placement known. Post Discharge follow-up (LEASE ADMINISTRATION ANALYST): LEASE ADMINISTRATION ANALYST at post-acute placement Recommend PM&R Consult (LEASE ADMINISTRATION ANALYST): Yes, for assessment of post-acute placement needs. Pt appears to be a candidate for higher intensity rehab services. 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 Cognitive-linguistic assessment not completed. Once pt clears, suspect she will have very good participation as she participates well when more alert. Speech-Language Pathologist: Sera Fleming SLP [facility], 11/08/2023 9:26 AM Pager: [employer] K MASON * Sinai Brady PA-C - 11/07/2023 3:57 PM CST Physical Medicine & Rehabilitation Follow-Up Lucinda Ryans : 1940 Sex: female Patient lethargic, rouses briefly and acknowledges marine underwriter, answers a few questions but unclear [...] II, and HLD, who was admitted to [facility] 11/04/2023 after being found unconscious at the [...] address self care, ADL's, adaptive equipment Continue LEASE ADMINISTRATION ANALYST to address speech, swallow, communication, cognition Regarding [...] of this note have been dictated using [employer] dictation software. Please excuse any photograph enlarger errors and feel free to contact me regarding such errors or confusion regarding intended message. Sinai Brady PA-C Pager via [employer] Total time spent on this encounter, on the date of service including pre-visit review of separatelyobtained history, trcr-qa-[id number] interaction performing medically appropriate physical exam, patient counseling/education, interpretation of diagnostic results, care coordination and documentation was 35 minutes. K MASON * Jazmine Thompson V - 11/07/2023 3:09 PM CST CULTURAL ASSESSMENT: SUMMARY: This marine underwriter saw pt. At 12:26 PM on 11/07/2023. Electrical Cad Technician introduced herself to pt.'s , and discussed with him on marine underwriter's role. Electrical Cad Technician asked pt.'s if he had any questions, comments, or concerns regarding pt.'s care. Pt.'s mentioned that he doesn't really know anything, so he will wait and see if later he would need assistance from marine underwriter. Electrical Cad Technician gave her contact information for any future questions, comments, or concerns. Jazmine Thompson V, 11/07/2023 3:27 PM K MASON * Sera Fleming SLP [facility] - 11/07/2023 2:41 PM CST Speech-Language Pathology Progress Note 11/07/2023 LEASE ADMINISTRATION ANALYST Recommendations Discharge Recommendations (LEASE ADMINISTRATION ANALYST): Post-acute placement recommended. Acute Rehab if meets admission criteria No known barriers to placement Barriers to Discharge (LEASE ADMINISTRATION ANALYST): NA - Post acute placement is recommended and no barriers to placement known. Post Discharge follow-up (LEASE ADMINISTRATION ANALYST): LEASE ADMINISTRATION ANALYST at post-acute placement Recommend PM&R Consult (LEASE ADMINISTRATION ANALYST): Yes, for assessment of post-acute placement needs. Pt appears to be a candidate for higher intensity rehab services. 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 Safe to restart baseline diet of regular textures and thin liquids. Ensure pt is upright for all PO intake and is alert. Speech-Language Pathologist: Sera Fleming SLP [facility], 11/07/2023 2:44 PM Pager: [employer] K MASON * Juan Loera MD - 11/07/2023 10:42 AM CST SURGERY TRAUMA PROGRESS NOTE -PGY 1 Lucinda Ryans : 1940 Sex: female ASSESSMENT: 83 y.o. yo female with SDH R cerebral convexity and falx, scattered SAH and periventricular hemorrhage . The following services have been consulted PM&R, LEASE ADMINISTRATION ANALYST. Night Events: -Pt reported to be pulling out lines overnight, given zyprexa 10 mg for agitation Day Events: -Patient diet changed to NPO due to aspiration concerns -Held oral antihypertensives to start tomorrow pending clearance from LEASE ADMINISTRATION ANALYST -Start Maintenance fluids LR 110ml/hr ending 11/08/23 [...] for her mother. Advised to speak with web content & social media manager to start paperwork. Updated [...] on the Primary Treatment Team, click here. K MASON Associated attestation - Mariama Catherine DO - 11/12/2023 2:36 PM BRICK MASON FACULTY NOTE I saw and evaluated the [...] yet. Dt scheduling, unable to reschedule today. K MASON * Sera Fleming, STEPHIE CCC - 11/07/2023 9:55 AM CST Speech-Language Pathology Progress Note 11/07/2023 LEASE ADMINISTRATION ANALYST Recommendations Discharge Recommendations (LEASE ADMINISTRATION ANALYST): Post-acute placement recommended. Acute Rehab if meets admission criteria No known barriers to placement Barriers to Discharge (LEASE ADMINISTRATION ANALYST): NA - Post acute placement is recommended and no barriers to placement known. Post Discharge follow-up (LEASE ADMINISTRATION ANALYST): LEASE ADMINISTRATION ANALYST at post-acute placement Recommend PM&R Consult (LEASE ADMINISTRATION ANALYST): Yes, for assessment of post-acute placement needs. Pt appears to be a candidate for higher intensity rehab services. Diet Recommendation: Current Diet : NPO Current Liquid: NPO Medication Administration: None orally Oral Hygiene: [place] teeth 2x/day Instrumental Assessment Needed: No Additional Referrals Needed: None Page LEASE ADMINISTRATION ANALYST if alertness levels improve. Will re-evaluate today [...] time. Education provided to at bedside re LEASE ADMINISTRATION ANALYST role and delirium dysphagia. 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 Pt is pending further imaging to ensure no change in TBI. Recommend continuing NPO at this time. RN to page LEASE ADMINISTRATION ANALYST with improved alertness levels and will see again today based on improvement. Speech-Language Pathologist: Sera Fleming, STEPHIE CCC, 11/07/2023 9:59 AM Pager: [employer] K MASON * Ruby Franklin, OTR/L - 11/06/2023 4:39 [...] mgmt/ADL: 25 minutes Ruby Franklin, OTR/L Pager: [facility] OT Department K MASON * Sera Fleming SLP CCC - 11/06/2023 2:32 PM CST Speech Language Pathology: Pt not seen today d/t staffing and time constraints. Will plan to see pt tomorrow for cognitive-linguistic dx/tx and swallow follow up. Sera Fleming SLP CCC, 11/06/2023 2:32 PM K MASON * Shy Higuera - 11/06/2023 11:04 AM CST Was unable to draw blood because nurse requested lab to come back later. Notified YOVANY Cornejo at 11:04. Patient's visitor stated that these labs are duplicate, informed YOVANY Cornejo she will call lab if needed. Shy Higuera, 11/06/2023 11:04 AM K MASON * Bill Olivera - 11/06/2023 10:56 AM CSTSummary: Care Coordination Assessment Care Coordination Assessment Expected DC Date: 11/07/2023 Social Information Vegetable Washing Machine Operator Used: None needed Decision Maker at [...] Risks for Readmission: Access to f/u appointments community services manager will continue to follow until DC [...] DO Inbasket notification sent via Care Everywhere K MASON * Karime Allison PA-C - 11/06/2023 8:06 [...] intact Motor: Follows commands x4 extremities, 5/5 boat carpenter mechanic strength and plantar/dorsiflexion bilaterally, no pronator [...] PRN Neurosurgery will follow peripherally, please contact geothermal production manager resident with any questions or concerns. Staffed with Karime Sheikh PA-C, 11/06/2023 8:06 AM Neurosurgery ALICIA Discharge Milestones Documentation Discharge Milestones completed daily by the documenting provider on the Primary Treatment Team, click here. K MASON * Derek Marie RN - 11/06/2023 12:58 [...] unit. Derek Marie RN, 11/06/2023 1:00 AM K MASON * Gale Nassar MDIV - 11/05/2023 4:48 [...] Gale Nassar MDIV, 11/05/2023 4:49 PM Pager: [phone] K MASON * Kindra Nichole RN - 11/05/2023 1:19 AM CST Upon admission, a Four Eyes Skin Inspection was completed with Rafa Goodman RN. Skin injuries were NOT present, and skin breakdown needing further assessment will be added to Avatar. Will implement interventions from Skin INJURY Bundle as appropriate. Kindra Nichole RN, 11/05/2023 1:20 AM K MASON * Hernandez Mathur MD - 11/05/2023 12:00 [place] [address] [facility]#: [id number] PATIENT: LUCINDA KENNEDY : 1940 DATE DICTATED: 11/05/2023 SURGERY STAFF DAILY PROGRESS NOTE DATE OF SERVICE: 11/05/2023 I saw and evaluated the patient. I discussed management with residents, LABORER CAR BARN, and PAs on the Neurosurgery team and [...] PhD Staff Physician Neurosurgery Service Received in Income Tax Investigator: 11/05/2023 17:07:17 M: /[id number] WI/MODL K MASON documented in this encounter H&P Notes * [...] Team Notified by: Zipit Alert received at 2857 Tier Level page received at 0129 Staff Surgeon: Quinn Covarrubias MD Pediatric Patient < 15 years: No. [place] Trauma Team Time Out Completed: No HISTORY [...] diagnostic studies, procedures and surgery) Admit to [facility] Trauma Surgery Service Neurosurgery Consult paged out. Neurosurgery resident arrived at 2310. Consult to SICU Full Code Cardiac Monitoring q1Hr neuro checks, CMS checks Incentive Spirometer Bedrest with C, T, & L spine precautions C-spine exam and possible clearance once final reads posted NPO until final reads on radiography Consult LEASE ADMINISTRATION ANALYST and keep strict NPO if Age > [...] DO, 11/04/2023 10:54 PM General Surgery PGY1 [facility] Surgery Service K MASON Associated attestation - Quinn Covarrubias MD - 11/05/2023 10:43 AM BRICK MASON FACULTY NOTE I saw and evaluated the [...] Patient Risks discussed: Pain, bleeding and infection [place] protocol: Patient identity confirmed: Verbally with patient, [...] complications Priscilla Holcomb MD, 11/04/2023 11:43 PM K MASON Associated attestation - Rito Graf MD - 11/05/2023 2:30 AM BRICK MASON I was present for the entire procedure. [...] contact pharmacist on service at [facility] [employer]) [phone]. If no response within needed timeframe, please contact central pharmacy via phone at [phone]. Planned discharge medications are: Medication List Medications [...] 3 capsules (225 mg) by mouth daily. K MASON * Tamiko Westbrook LGSW - 11/15/2023 8:32 AM CSTAssociated Order(s): CONSULT TO BANK ACCOUNTANT Notary Public Note Acknowledged consult place for support with [...] elderly parents. Will send to e- mail: [email or web address] (I sent supporting resources as requested) K MASON * Isabel Day - 11/14/2023 2:18 PM [...] was no one else in the room. Electrical Cad Technician greeted Patient, introduced herself, and offered music. Patient was pleasantly confused and asked Electrical Cad Technician to sit down. Electrical Cad Technician sat down and got out her guitar. Patient chatted with Electrical Cad Technician. Electrical Cad Technician played a song for Patient on guitar and sang. During the music, Patient looked at the television. After the song, Patient talked about the circumstances leading to her hospitalization and about a possibly surgery. Patient told Electrical Cad Technician she is waiting for her to return after checking on their house in [place]. Electrical Cad Technician played a second song, After the music, Patient commented that the music was very beautiful. Electrical Cad Technician ended the session and Patient thanked Electrical Cad Technician. Goals Addressed: Psychosocial Support and Mood Enhancement Plan: Electrical Cad Technician will continue to offer music therapy to Patient when possible. Isabel Day, 11/14/2023 2:18 PM K MASON * Kasey Ennis, PT - 11/06/2023 9:02 [...] History of Falling Z 91.81 PRECAUTIONS Falls Vegetable Washing Machine Operator Used: None needed ACTIVITY Up with [...] math, 92, 102) hospital, Alert, and Cooperative EAGLE OBJECTIVE Initial patient presentation upon PT arrival: [...] EOB upon arrival, eating breakfast. She seems EAGLE, slightly confused but cooperative. She has good [...] AD, stairs for home usage daily. . OIL MIXER Appropriate: Yes Participated in goal setting and treatment planning: Patient, Promotions Producer/Significant Other Agrees with goals and treatment plan: Patient - Yes, Caregiver/Significant Other - Yes. Kasey Ennis, PT 11/06/2023 Pager: [facility] PT Department K MASON * Devyn Jamil MD - 11/06/2023 7:41 AM CST Images from the original note were not included. Physical Medicine & Rehabilitation Consultation Patient Name: Lucinda Kennedy : 1940 Medical Record: [id number] PRIMARY CARE PHYSICIAN: No primary care provider on file. REQUESTING PHYSICIAN: Quinn Covarrubias MD REASON FOR CONSULT: I was asked to evaluate this patient regarding their rehabilitation needs and appropriateness for acute rehabilitation. HISTORY OF PRESENT PROBLEM I personally reviewed the patient's medical record from the most recent [facility] admission including yet not limited to notes as below and summarized it below in conjunction with interview with the patient and patient's . Lucinda Kennedy is a 83 y.o. RHD female with chronic medical conditions including HTN, DM II, and HLD, who was admitted to [facility] 11/04/2023 after being found unconscious at the [...] she couldn't come up with the name. LEASE ADMINISTRATION ANALYST (11/05/23) Functional oropharyngeal swallow. Safe for regular [...] of the thoracic or lumbar spine. 2. Hlry-yj-rkyidlpg lumbar spondylosis without suspected high-grade spinal canal or neural foraminal narrowing. CT L-Spine (11/04/23) IMPRESSION Impression: 1. No suspected acute fracture or dislocation of the thoracic or lumbar spine. 2. Lcoi-bs-ypcygmzt lumbar spondylosis without suspected high-grade spinal canal or neural foraminal narrowing. CT C/A/P (11/04/23) IMPRESSION Impression: 1. No acute traumatic sequelae in the chest, abdomen or pelvis. 2. Several sub-5 mm pulmonary nodules are noted. If considered high risk, can consider additional follow-up CT in 12 months to document stability. 3. Colonic diverticulosis without evidence of acute diverticulitis. Impression: Lucinda Kenendy is a 83 y.o. RHD female with chronic medical conditions including HTN, DM II, and HLD, who was admitted to [facility] 11/04/2023 after being found unconscious at the [...] address self care, ADL's, adaptive equipment Continue LEASE ADMINISTRATION ANALYST to address speech, swallow, communication, cognition Regarding [...] occur at the acute level such as [place] where she can participate in 3hrs/day and [...] service including pre-visit review of separatelyobtained history, nlli-sb-oxsj interaction performing medically appropriate physical exam, patient counseling/education, interpretation of diagnostic results, care coordination and documentation was 60 minutes. K MASON * Ruby Franklin, OTR/L - 11/05/2023 1:53 [...] 10 minutes Therapist: Ruby Franklin OTR/L P[facility]: [facility] Department K MASON * Reynaldo Anderson PA-C - 11/05/2023 12:41 [...] though 2 of 3 serve in the ([employer] [place] [employer] and one may be a Geophysical E Logger?). She jokes about how long she has been to [place]. 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 Seen this afternoon, she is not oriented to time or place. No family present. She does indicate to me she prefers to go by [place]. She was able to tell me a lot about her 3 grandsons that make her veryproud, sounds as though 2 of 3 serve in the ([employer] and one may be a Geophysical E Logger?). She jokes about how long she has been to [place]. 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 K MASON * Sera Fleming SLP [facility] - 11/05/2023 9:56 AM CST SPEECH-LANGUAGE PATHOLOGY CONSULTATION LEASE ADMINISTRATION ANALYST Recommendations Discharge Recommendations (LEASE ADMINISTRATION ANALYST): Post-acute placement recommended. Acute Rehab if meets admission criteria No known barriers to placement Barriers to Discharge (LEASE ADMINISTRATION ANALYST): NA - Post acute placement is recommended and no barriers to placement known. Post Discharge follow-up (LEASE ADMINISTRATION ANALYST): LEASE ADMINISTRATION ANALYST at post-acute placement Recommend PM&R Consult (LEASE ADMINISTRATION ANALYST): Yes, for assessment of post-acute placement needs. Pt appears to be a candidate for higher intensity rehab services. Diet Recommendation: Current Diet : Regular Current Liquid: Thin liquids Medication Administration: Medications with thin liquid Aspiration Precautions: Upright with all eating and drinking Oral Hygiene: [place]era teeth 2x/day Positioning Techniques: Seat fully upright [...] Admitted to SICU for close neuro monitoring. LEASE ADMINISTRATION ANALYST consulted to evaluate a marge function. SUBJECTIVE Barriers to Learning: No caregiver present;Cognitive linguistic deficit Barriers to Discharge (LEASE ADMINISTRATION ANALYST): NA - Post acute placement is recommended [...] intact. EDUCATION Audience: Patient Education: results of assessment;LEASE ADMINISTRATION ANALYST scope of practice;LEASE ADMINISTRATION ANALYST plan of care;recommendation for additional therapy Speech-Language Pathologist: Sera Fleming, STEPHIE [facility], 11/05/2023 9:56 AM Pager: [employer] K MASON * Cale Thompson MD - 11/05/2023 1:00 AM CSTAssociated Order(s): CONSULT TO SAP PPM CONSULTANT SICU CONSULT - G3 Lucinda Ryans : [...] pulmonary toilet Gastrointestinal/Nutrition: Assessment: NPO, will need LEASE ADMINISTRATION ANALYST clearance prior to diet Plan: - Continue NPO - LEASE ADMINISTRATION ANALYST Electrolytes: Assessment: otherwise grossly within normal limits. [...] Component Value Date/Time PHART 7.37 11/05/2023 0118 [id number] 43 11/05/2023 0118 PO2ART 83 11/05/2023 0118 [id number] 25 11/05/2023 0118 [id number] 11/05/2023 0118 BEART -0.3 11/05/2023 0118 Labs and imaging reviewed. Art Thompson MD - PGY-3 Surgery Service Pager: Telmediq This patient was seen in consultation for critical care management requested by Devin Dougherty MD;P* K MASON Associated attestation - Quinn Covarrubias MD - 11/05/2023 10:44 AM BRICK MASON FACULTY NOTE I saw and evaluated the [...] elbow flex/ext. 5/5 wrist flex/ext. 5/5 hand boat carpenter mechanic. LUE: 5/5 shoulder abduction. 5/5 elbow flex/ext. 5/5 wrist flex/ext. 5/5 hand boat carpenter mechanic. Lower Extremities: RLE: 5/5 hip flexion. 5/5 knee flex/ext. 5/5 ankle plantar-/dorsiflexion. 5/5 EHL. LLE: 5/5 hip flexion. 5/5 knee flex/ext. 5/5 ankle plantar-/dorsiflexion. 5/5 EHL Sensory: Sensation intact in all 4 extremities REVIEW OF LABORATORY, PATHOLOGY, AND RADIOLOGY DATA: [facility] Lab Results Component Value Date/Time NA [...] independently reviewed: Laboratory results and Radiology images K MASON Associated attestation - Marina Shaffer MD - 11/05/2023 4:13 PM BRICK MASON 83 year old woman presented after presumed [...] Oximetry - Continuous (ICU) Oxygen Consult to Instrumentation Instructor CONSULT TO PALLIATIVE CARE Straight Cath Protocol [...] RN in EDSTAB 2 at 11/04/2023 22:55:31 BRICK MASON by Eleni Spring MLS. ED HEMOGLOBIN TOTAL (ED ONLY) - Abnormal Hgb 10.3 (*) LACTATE (LACTIC ACID) - Abnormal Lactate 2.7 (*) Narrative: Send specimen on ice! PTT (APTT) - Abnormal APTT 22.9 (*) ANTI XA HEPARIN UNFRACTIONATED - Abnormal Anti XA Hep U <0.04 (*) URINALYSIS,TOTAL - Abnormal Color COLORLESS Appearance CLEAR Urine Glucose 100 (*) Bili UA NEGATIVE Ketones NEGATIVE Specific [place] 1.036 (*) Blood Ur NEGATIVE PH Urine 7.5 (*) Protein Ur TRACE Urobilinogen NORMAL Nitrite Ur NEGATIVE Leuk Est NEGATIVE WBC Ur 0-5 RBC Ur 0-3 SQ EPITH 0-5 Urinalysis Performed at: [facility] FIBRINOGEN Fibrinogen 288 PRECAUTIONARY TUBE Prec Tube [...] hemorrhage Vanna Parekh PA-C, 11/05/2023 3:11 AM K MASON * Kathy Worthington RN - 11/05/2023 12:09 AM CST Bed: A08 Expected date: Expected time: Means of arrival: Comments: Stab 2 K MASON * Ana Ordaz RN - 11/04/2023 10:51 PM CST ED-adjunct psychology faculty member-Note: --Pertinent Information: Pt arrives to ED after fall down flight of stairs. --Pt's , daughter and son in law were on scene and are all coming to [facility]. --Family contact: Daughter Zain #[phone] / Son in Law # [phone] Ana Ordaz RN K MASON * Rafa Hutchins RN - 11/04/2023 10:40 PM CST BIBA from home after called when he heard her fall downstairs. Upon EMS arrival, patient was altered and lethargic. reports to EMS that patient is on blood thinners. 18g PIV left AC, 20g PIV right forearm. BG 272. Patient arrives to STAB Room awake, disoriented to time and situation. K MASON documented in this encounter Miscellaneous Notes * Discharge non-MD/non-AVERY Summaries - Kasey Ennis, PT - 11/16/2023 9:19 AM CST Physical Therapy Inpatient Discharge Summary Lucinda Kennedy [id number] Diagnosis Patient Active Problem List Diagnosis Fall, [...] transfer bed to/from chair with (6) Modified [place] with sliding board or pivot method. By 11-17-2023 Outcome: In progress Goal: Patient will transfer sit to/from stand Description: Patient will transfer sit to/from stand with (6) Modified [place] By 11-17-2023. Outcome: In progress Problem: Decreased Ambulatory Skills Goal: Improve gait Description: Ambulate 100 meters using Front - wheeled walker with (6) Modified [place] By 11-17-2023. Outcome: In progress Goal: Improve gait on stairs Description: Ascend/descend 7 +7 stairs using Cane with (6) Modified [place] .By 11-17-2023 Outcome: In progress Problem: Decreased Functional Motor Skills - PT Goal: Patient demonstrates improved balance Description: Pt to score at least 45/56 Mitchell Balance to indicate decreased risk for falls By 11-17-2023 Outcome: In progress Plan: Discharge to Rehab Facility Physical Therapist: Kasey Ennis, PT Date: 11/17/2023 Pager: Girlt[employer] PT Department K MASON * Discharge non-MD/non-AVERY Summaries - Bill Olivera - 11/16/2023 7:46 AM BRICK MASON Summary: DC to TCU Care Coordination Discharge Note Expected DC Date: 11/16/2023 Expected DC Time: 9 AM Final Discharge Destination: Destination Coordination complete. Service Provider Selected Services Address Phone Fax Theresa Yusuf, [facility] [address] [place] [address] [phone] Summary: Patient has been accepted to continue rehabing at the aforementioned post acute facility. Family onboard with plan. WC ride has been ordered for Fri at 9 am Medical team is aware. They will work writing DC orders. CC faxed DC orders to TCU via [employer]. Medical team is aware any controlled substances must be printed and signed to be sent in physical form to the TCU. Also, [employer] HOME SUPERVISOR will fax it to TCU temi. Bedside nurse please confirm this is done. A TelSetupQ thread has been started. CC will continue to follow until DC. Please use [employer] for any further questions. K MASON * Nursing Assessment - Karolyn Jacob RN [...] at bedside and sitting quietly at bedside K MASON * Nursing Assessment - Lila Gaines, RN [...] Psychosocial Assessment Within Defined Limits except for: K MASON * Discharge non-MD/non-AVERY Summaries - Nayeli Alvarado, LEASE ADMINISTRATION ANALYST [facility] - 11/15/2023 4:35 PM CST SPEECH-LANGUAGE PATHOLOGY Discharge Summary 11/15/2023 LEASE ADMINISTRATION ANALYST Recommendations Discharge Recommendations (LEASE ADMINISTRATION ANALYST): Post-acute placement recommended. Acute Rehab if meets admission criteria No known barriers to placement Barriers to Discharge (LEASE ADMINISTRATION ANALYST): NA - Post acute placement is recommended and no barriers to placement known. Post Discharge follow-up (LEASE ADMINISTRATION ANALYST): LEASE ADMINISTRATION ANALYST at post-acute placement Recommend PM&R Consult (LEASE ADMINISTRATION ANALYST): Yes, for assessment of post-acute placement needs. Pt appears to be a candidate for higher intensity rehab services. Diet Recommendation: Current Diet : Regular Current Liquid: Thin liquids Medication Administration: Medications with thin liquid Aspiration Precautions: Upright with all eating and drinking Oral Hygiene: [place] teeth 2x/day Positioning Techniques: Seat fully upright [...] hemianopsia. EDUCATION Audience: Patient Education: results of assessment;LEASE ADMINISTRATION ANALYST scope of practice;LEASE ADMINISTRATION ANALYST plan of care;recommendation for additional therapy Prognosis is good for increasing independence with iADLs. Speech-Language Pathologist: Nayeli Alvarado, LEASE ADMINISTRATION ANALYST [facility], 11/15/2023 4:35 PM Pager: Telmediq K MASON * Discharge non-MD/non-AVERY Summaries - Sharri Price, OTR/L - 11/15/2023 2:12 PM CST [facility] Occupational Therapy Discharge Summary Lucinda Kennedy 11/15/2023 [...] subacute rehab. Patient Name: Lucinda Kennedy MR#: [id number] Date of : 1940 Age: 83 y.o. [...] none (11/05/23 1400) Prior Level of Function (OIL MIXER): ADLs/IADLs: No assistance required (Independent or modified [...] goals. Occupational Therapist: [facility] [place] OT Department K MASON * Nursing Assessment - Dariana Alvarado RN - 11/15/2023 4:49 AM CST Nursing Assessment Head to Toe Head to Toe Assessment Shift Summary Shift [id number]: Pt is alert and oriented to self [...] for: Psychosocial Assessment: Observed Patient Behaviors: Restless K MASON * Nursing Assessment - Tone Rosario RN [...] for: Psychosocial Assessment: Observed Patient Behaviors: Restless K MASON * Nursing Assessment - Adelso Huber RN - 11/14/2023 4:30 PM BRICK MASON Nursing Assessment Head to Toe Head to [...] Behavior: at bedside and attentive to patient K MASON * Nursing Assessment - Adelso Huber RN - 11/14/2023 10:17 AM BRICK MASON Nursing Assessment Head to Toe Head to [...] Behavior: at bedside and attentive to patient K MASON * Nursing Assessment - Luisa Pablo, RN [...] Behavior: at bedside and attentive to patient K MASON * Nursing Assessment - Sanjuana Reyes, RN [...] patient and participating in care Comments: Spouse K MASON * Nursing Assessment - Nikole Diego RN [...] Behavior: at bedside and attentive to patient K MASON * Nursing Assessment - Lila Reed RN [...] 6 Psychosocial Within Defined Limits Comments: present K MASON * Nursing Assessment - Bianca Bell RN - 11/12/2023 2:17 PM BRICK MASON Nursing Assessment Head to Toe Head to [...] Emotional State: Acceptance Family Behavior: not present K MASON * Nursing Assessment - Teresita Vidales RN [...] 1640 -- 5 Psychosocial Within Defined Limits K MASON * Nursing Assessment - Teresita Vidales RN [...] Emotional State: Acceptance Family Behavior: not present K MASON * Nursing Assessment - Nikole Diego RN [...] as he expressed her confusion and decline K MASON * Nursing Assessment - Carolina Awan RN [...] Cardiac Assessment Within Defined Limits except for: Dish Cloth Inspector - remote telemetry Respiratory Assessment Within Defined [...] 1640 -- 4 Psychosocial Within Defined Limits K MASON * Nursing Assessment - Carolina Awan RN - 11/10/2023 9:30 PM CST Nursing Assessment Head to Toe Head to Toe Assessment Shift Summary Shift Summary Neurologic/Cognitive Assessment Within Defined Limits except for: Orientation: disoriented to place, disoriented to time and disoriented to situation HEENT Within Defined Limits Cardiac Assessment Within Defined Limits except for: Dish Cloth Inspector - remote telemetry Respiratory Assessment Within Defined [...] 1640 -- 4 Psychosocial Within Defined Limits K MASON * Nursing Assessment - Elvira Benitez RN [...] for: Psychosocial Assessment: Verbalized Emotional State: Acceptance K MASON * Nursing Assessment - Zaira Bellamy, RN [...] Pt stated she is going home today, Electrical Cad Technician reoriented to POC. Tylenol prn given for [...] for: Psychosocial Assessment: Verbalized Emotional State: Acceptance K MASON * Nursing Assessment - Quynh Jenkins RN - 11/10/2023 6:46 AM CST Nursing Assessment Head to Toe Head to Toe Assessment Shift Summary Shift Summary Neurologic/Cognitive Assessment Within Defined Limits except for: Orientation: disoriented to place, disoriented to time and disoriented to situation Frequent Neuro Assessments have been documented in the flowsheets HEENT Within Defined Limits Cardiac Assessment Within Defined Limits except for: Dish Cloth Inspector - remote telemetry Pacemaker: Pacemaker: No Respiratory [...] 1640 -- 3 Psychosocial Within Defined Limits K MASON * Nursing Assessment - Anita Keating RN [...] Defined Limits except for: Chest Pain: No Dish Cloth Inspector - remote telemetry Pacemaker: Pacemaker: No Respiratory [...] 3 Psychosocial Within Defined Limits Shift Summary K MASON * Nursing Assessment - Anita Keating RN - 11/09/2023 11:44 AM CST Nursing Assessment Head to Toe Head to Toe Assessment Shift Summary Neurologic/Cognitive Assessment Within Defined Limits except for: Cognition: poor attention/concentration Level of Consciousness: Lethargic Frequent Neuro Assessments have been documented in the flowsheets HEENT Within Defined Limits Cardiac Assessment Within Defined Limits except for: Chest Pain: No Dish Cloth Inspector - remote telemetry Pacemaker: Pacemaker: No Respiratory [...] 1640 -- 2 Psychosocial Within Defined Limits K MASON * Nursing Assessment - Mayte Grover RN [...] Cardiac Assessment Within Defined Limits except for: Dish Cloth Inspector - remote telemetry Respiratory Assessment Within Defined [...] 1640 -- 2 Psychosocial Within Defined Limits K MASON * Nursing Assessment - Chucho Blair, RN [...] pivot to commode. Meds whole with water, xax-qe-i-time. Otherwise resting between cares with family present. Chucho Blair, RN, 11/08/2023 7:01 PM Neurologic/Cognitive Assessment Within Defined Limits except for: Cognition: poor attention/concentration Level of Consciousness: Lethargic Frequent Neuro Assessments have been documented in the flowsheets HEENT Within Defined Limits Cardiac Assessment Within Defined Limits except for: Dish Cloth Inspector - remote telemetry Respiratory Assessment Within Defined [...] 1640 -- 2 Psychosocial Within Defined Limits K MASON * Nursing Assessment - Tone Rosario RN [...] 1640 -- 1 Psychosocial Within Defined Limits K MASON * Nursing Assessment - Tone Rosario RN [...] 1640 -- 1 Psychosocial Within Defined Limits K MASON * Nursing Assessment - Chucho Blair, RN [...] Cardiac Assessment Within Defined Limits except for: Dish Cloth Inspector - remote telemetry Respiratory Assessment Within Defined [...] 1640 -- 1 Psychosocial Within Defined Limits K MASON * Nursing Assessment - Chucho Blair, RN [...] less than 1 Psychosocial Within Defined Limits K MASON * Nursing Assessment - Tone Rosario RN [...] less than 1 Psychosocial Within Defined Limits K MASON * Nursing Assessment - Tone Rosario RN [...] less than 1 Psychosocial Within Defined Limits K MASON * Nursing Assessment - Chantal Higgins RN [...] less than 1 Psychosocial Within Defined Limits K MASON * Nursing Assessment - Chantal Higgins RN [...] 0710 -- 1 Psychosocial Within Defined Limits K MASON * Nursing Assessment - Musa De La Torre RN - 11/06/2023 4:25 AM BRICK MASON Nursing Assessment Head to Toe Head to [...] Cardiac Assessment Within Defined Limits except for: Dish Cloth Inspector - remote telemetry Respiratory Within defined limits [...] attentive to patient and interacting with patient K MASON * Transfer - Musa De La Torre RN - 11/06/2023 12:20 AM CST Images from the original note were not included. TRANSFER IN NOTE D: Patient transferred in to [place] [id number] from [facility] at 2320. Patient condition on arrival: [...] De La Torre RN, 11/06/2023 12:22 AM K MASON * Nursing Assessment - Derek Marie RN - 11/05/2023 10:33 PM CST Nursing Assessment Head to Toe Head to Toe Assessment Shift Summary Shift Summary Neurologic/Cognitive Assessment Within Defined Limits except for: Cognition: poor judgement/safety awareness Level of Consciousness: Lethargic Arousal Level: Arouses to pain HEENT Assessment Within Defined Limits except for: Cardiac Assessment Within Defined Limits except for: Heart sounds: S1, S2 Dish Cloth Inspector - bedside telemetry ECG Rhythm: normal sinus [...] interacting with patient and participating in care K MASON * Nursing Assessment - Eloise Randolph RN - 11/05/2023 8:00 PM CST Nursing Assessment Head to Toe Head to Toe Assessment Shift Summary SHIFT [id number] NEURO - Patient Alert to self, and [...] Cardiac Assessment Within Defined Limits except for: Dish Cloth Inspector - bedside telemetry ECG Rhythm: normal sinus [...] with patient and sitting quietly at bedside K MASON * Nursing Assessment - José Urbano RN [...] Cardiac Assessment Within Defined Limits except for: Dish Cloth Inspector - bedside telemetry Lead Monitored: Lead II ECG Rhythm: normal sinus rhythm WV Interval (sec): 0.16 QRS Interval (sec): 0.13 [...] less than 1 Psychosocial Within Defined Limits K MASON * Nursing Assessment - Eloise Randolph RN - 11/05/2023 4:00 PM CST Nursing Assessment Head to Toe Head to Toe Assessment Shift Summary Shift Summary Neurologic/Cognitive Assessment Within Defined Limits except for: Arousal Level: Arouses to voice Orientation: disoriented to time and disoriented to situation Mood/Behavior: Calm HEENT Within Defined Limits Cardiac Assessment Within Defined Limits except for: Dish Cloth Inspector - bedside telemetry ECG Rhythm: normal sinus [...] with patient and sitting quietly at bedside K MASON * Nursing Assessment - José Urbano RN [...] Cardiac Assessment Within Defined Limits except for: Dish Cloth Inspector - bedside telemetry Lead Monitored: Lead II ECG Rhythm: normal sinus rhythm WV Interval (sec): 0.16 QRS Interval (sec): 0.13 [...] less than 1 Psychosocial Within Defined Limits K MASON * Trauma Tertiary Exam - Jesusita Aiken APRN, EMILY - 11/05/2023 7:08 AM CST TRAUMA TERTIARY EXAM - BED MAKER First Exam Lucinda Kennedy : 1940 Sex: [...] of the thoracic or lumbar spine. 2. 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 https://info [facility]/Departments/TraumaServices/AlcoholScreeningEducation/index.htm 1. In the past year: Have you felt you should cut down on your drinking? no 2. In the past year: Have people annoyed you by criticizing your drinking? no 3. In the past year: Have you felt bad or guilty about your drinking? no 4. In the past year: Have you had an eye pearl hand first thing in the morning to steady [...] CFS >/= 7, consult Palliative Care Consult LEASE ADMINISTRATION ANALYST for: TBI or Altered Mental Status *If patient meets criteria for an LEASE ADMINISTRATION ANALYST consult, please order aspiration precautions Mental Health [...] on guard, watchful, or easily startled? no [place] numb or detached from others, activities, or [...] SAH risk for bleeding Diet: NPO until LEASE ADMINISTRATION ANALYST eval Activity: Up ad nia C/T/L-Spine status: cleared Weight-bearing status: no restrictions Therapy: PT, OT, OT for cognitive screen, and LEASE ADMINISTRATION ANALYST Consulting Teams(s) Plan and/or Follow-up Recommendations: Neurosurgery: [...] recommendations, and To be determined. Jesusita Aiken, CALIBRATION TESTER, LABORER [employer]ARN 11/05/2023 07:08 K MASON * Nursing Assessment - Rafa Tineo RN [...] Cardiac Assessment Within Defined Limits except for: Dish Cloth Inspector - bedside telemetry Lead Monitored: Lead II [...] Behavior: at bedside and interacting with patient K MASON * Nursing Assessment - Rafa Tineo RN [...] Cardiac Assessment Within Defined Limits except for: Dish Cloth Inspector - bedside telemetry Lead Monitored: Lead II [...] Behavior: at bedside and interacting with patient K MASON * Interdisciplinary Note - Amelia Lobo MD - 11/05/2023 12:16 AM BRICK MASON Patient oriented to self, date, family and medical history. Discussed code status with patient. Shewishes to be full code accepting of CPR and intubation at this time. Amelia Lobo MD, MPH 11/05/2023 06:17 PGY-5 General Surgery Resident Pager: [phone] or via Girlt[employer] K MASON * Interval Note Provider - Priscilla Holcomb MD - 11/04/2023 11:44 PM BRICK MASON PROCEDURES I performed the following procedures: Art Line Priscilla Holcomb MD, 11/04/2023 11:44 PM K MASON * ED Faculty Note - Devin Dougherty [...] placement Devin Dougherty MD, 11/04/2023 11:13 PM K MASON * ED Stabilization Note - Norm Hernandez [...] Disposition Admit to SICU Signed out to [facility] Procedures I performed the following procedures: Adult Trauma Resuscitation. Norm Hernandez MD, PGY-3 Emergency Medicine Resident K MASON documented in this encounter Plan of Treatment Scheduled Referrals Name Type Priority Associated Diagnoses Orde r Schedule REFERRAL TO TRAUMATIC BRAIN INJURY Referral Routine Fall, initial encounter SDH (subdural hematoma) (CMS) SAH (subarachnoid hemorrhage) (CMS/HHS) Traumatic brain injury with loss of consciousness, initial encounter ([facility]) Ordered: 11/08/2023 documented as of this encounter Procedures Procedure Name Priority Date/Time Associated Diagnosis Comments PANEL BASIC METABOLIC (BMP) Routine 11/16/2023 7:22 AM BRICK MASON POC GLUCOSE Routine 11/16/2023 6:58 AM BRICK MASON POC GLUCOSE Routine 11/15/2023 9:15 PM BRICK MASON POC GLUCOSE Routine 11/15/2023 4:09 PM BRICK MASON POC GLUCOSE Routine 11/15/2023 12:46 PM BRICK MASON PANEL BASIC METABOLIC (BMP) Routine 11/15/2023 7:39 AM BRICK MASON POC GLUCOSE Routine 11/15/2023 6:11 AM BRICK MASON POC GLUCOSE Routine 11/14/2023 9:02 PM BRICK MASON POC GLUCOSE Routine 11/14/2023 4:21 PM BRICK MASON POC GLUCOSE Routine 11/14/2023 12:19 PM BRICK MASON PANEL BASIC METABOLIC (BMP) Routine 11/14/2023 8:59 AM BRICK MASON POC GLUCOSE Routine 11/14/2023 8:11 AM BRICK MASON POC GLUCOSE Routine 11/13/2023 9:15 PM BRICK MASON POC GLUCOSE Routine 11/13/2023 4:03 PM BRICK MASON POC GLUCOSE Routine 11/13/2023 11:21 AM BRICK MASON PANEL BASIC METABOLIC (BMP) Routine 11/13/2023 6:41 AM BRICK MASON POC GLUCOSE Routine 11/13/2023 6:31 AM BRICK MASON POC GLUCOSE Routine 11/12/2023 9:21 PM BRICK MASON POC GLUCOSE Routine 11/12/2023 4:12 PM BRICK MASON PANEL BASIC METABOLIC (BMP) Timed 11/12/2023 1:01 PM BRICK MASON POC GLUCOSE Routine 11/12/2023 12:14 PM BRICK MASON POC GLUCOSE Routine 11/12/2023 6:09 AM BRICK MASON POC GLUCOSE Routine 11/11/2023 8:48 PM BRICK MASON POC GLUCOSE Routine 11/11/2023 4:11 PM BRICK MASON POC GLUCOSE Routine 11/11/2023 11:47 AM BRICK MASON PHOSPHORUS Routine 11/11/2023 6:09 AM BRICK MASON PANEL BASIC METABOLIC (BMP) Routine 11/11/2023 6:09 AM BRICK MASON MAGNESIUM Routine 11/11/2023 6:09 AM BRICK MASON TC LAB BLOOD DRAW BY VENIPUNCTURE Routine 11/11/2023 6:09 AM BRICK MASON POC GLUCOSE Routine 11/10/2023 8:58 PM BRICK MASON POC GLUCOSE Routine 11/10/2023 4:16 PM BRICK MASON POC GLUCOSE Routine 11/10/2023 11:15 AM BRICK MASON PHOSPHORUS Routine 11/10/2023 6:17 AM BRICK MASON PANEL BASIC METABOLIC (BMP) Routine 11/10/2023 6:17 AM BRICK MASON MAGNESIUM Routine 11/10/2023 6:17 AM BRICK MASON PC LAB CBC/PLT Routine 11/10/2023 6:17 AM BRICK MASON POC GLUCOSE Routine 11/09/2023 9:41 PM BRICK MASON POC GLUCOSE Routine 11/09/2023 3:58 PM BRICK MASON ANTI XA ASSAY LMW HEPARIN Timed 11/09/2023 2:18 PM BRICK MASON POC GLUCOSE Routine 11/09/2023 11:28 AM BRICK MASON XR FOOT RIGHT 3 V AP/OBL/LAT* Routine 11/09/2023 10:36 AM BRICK MASON POC GLUCOSE Routine 11/09/2023 5:46 AM BRICK MASON PC VALPROIC ACID LEVEL DEPAHOTE Routine 11/09/2023 5:41 AM BRICK MASON PHOSPHORUS Routine 11/09/2023 5:41 AM BRICK MASON PANEL BASIC METABOLIC (BMP) Routine 11/09/2023 5:41 AM BRICK MASON MAGNESIUM Routine 11/09/2023 5:41 AM BRICK MASON PC LAB CBC/PLT Routine 11/09/2023 5:41 AM BRICK MASON POC GLUCOSE Routine 11/08/2023 8:40 PM BRICK MASON PHOSPHORUS Routine 11/08/2023 4:20 PM BRICK MASON PANEL BASIC METABOLIC (BMP) Routine 11/08/2023 4:20 PM BRICK MASON MAGNESIUM Routine 11/08/2023 4:20 PM BRICK MASON TC LAB BLOOD DRAW BY VENIPUNCTURE Routine 11/08/2023 4:20 PM BRICK MASON POC GLUCOSE Routine 11/08/2023 3:56 PM BRICK MASON POC GLUCOSE Routine 11/08/2023 11:03 AM BRICK MASON XR CHEST 1 VIEW AP OR PA* Routine 11/08/2023 6:30 AM BRICK MASON POC GLUCOSE Routine 11/08/2023 6:22 AM BRICK MASON POC GLUCOSE Routine 11/07/2023 9:34 PM BRICK MASON POC GLUCOSE Routine 11/07/2023 4:06 PM BRICK MASON POC GLUCOSE Routine 11/07/2023 11:45 AM BRICK MASON XR CHEST 2 VIEWS PA + LAT* Routine 11/07/2023 10:07 AM BRICK MASON PC PROCALCITONIN (PCT) Routine 8:34 AM BRICK MASON PHOSPHORUS Routine 11/07/2023 8:34 AM BRICK MASON PANEL BASIC METABOLIC (BMP) Routine 11/07/2023 8:34 AM BRICK MASON MAGNESIUM Routine 11/07/2023 8:34 AM BRICK MASON PC LAB CBC/PLT Routine 11/07/2023 8:34 AM BRICK MASON POC GLUCOSE Routine 11/07/2023 5:45 AM BRICK MASON POC GLUCOSE Routine 11/06/2023 9:21 PM BRICK MASON PHOSPHORUS Timed 11/06/2023 1:06 PM BRICK MASON PANEL BASIC METABOLIC (BMP) Timed 11/06/2023 1:06 PM BRICK MASON MAGNESIUM Timed 11/06/2023 1:06 PM BRICK MASON PC GASES,BLOOD,ANY COMB OF PH,PCD2,PO2,CO2,HCO2 Routine 11/06/2023 1:06 PM BRICK MASON PC LAB CBC/PLT Timed 11/06/2023 1:06 PM BRICK MASON POC GLUCOSE Routine 11/06/2023 1:04 PM BRICK MASON POC GLUCOSE Routine 11/06/2023 10:49 AM BRICK MASON PC MAGNESIUM, SERUM Routine 11/06/2023 6 :31 AM BRICK MASON PC PHOSPHORUS INORGANIC(PHOSPHATE) Routine 11/06/2023 6:31 AM BRICK MASON PC LAB CBC/PLT Routine 11/06/2023 6:31 AM BRICK MASON TC LAB BLOOD DRAW BY VENIPUNCTURE Routine 11/06/2023 6:31 AM BRICK MASON PROTHROMBIN (PT) & INR Timed 6:31 AM BRICK MASON PC LAB GLYCOSYLATED HGB Routine 11/06/2023 6:31 AM BRICK MASON POC GLUCOSE Routine 11/06/2023 5:39 AM BRICK MASON POC GLUCOSE Routine 11/05/2023 4:54 PM BRICK MASON MAGNESIUM Routine 11/05/2023 4:48 PM BRICK MASON POTASSIUM Routine 11/05/2023 4:[address] HEAD NO IV CONTRAST Timed 11:44 AM BRICK MASON POC GLUCOSE Routine 11/05/2023 11:11 AM BRICK MASON EKG ADULT (12-LEAD) Routine 11/05/2023 6 :38 AM BRICK [facility]ON POC GLUCOSE Routine 11/05/2023 6:[address] HEAD NO IV CONTRAST Timed 4:54 AM BRICK [facility]ON PC MAGNESIUM, SERUM Routine 11/05/2023 4 :27 AM [facility]ICK [facility] PC PHOSPHORUS INORGANIC(PHOSPHATE) Routine 11/05/2023 4:27 AM BRICK [facility]ON PC GASES,BLOOD,ANY COMB OF PH,PCD2,PO2,CO2,HCO2 Routine 11/05/2023 4:27 AM [facility] PC LAB CBC/PLT Routine 11/05/2023 4:27 AM BRICK MASON TC LAB BLOOD DRAW BY VENIPUNCTURE Routine 11/05/2023 4:27 AM BRICK [facility]ON PC TROPONIN QUANTITATIVE Timed 11/05/2023 4:27 AM BRICK [facility]ON PROTHROMBIN (PT) & INR Timed 4:27 AM BR[facility]ON PC TROPONIN QUANTITATIVE Timed 11/05/2023 2:58 AM BRICK [facility]ON PROTHROMBIN (PT) & INR STAT 1:32 AM BRICK MASON PHOSPHORUS STAT 11/05/2023 1:32 AM BRICK MASON PANEL BASIC METABOLIC (BMP) STAT 11/05/2023 1:32 AM [facility]ON MAGNESIUM STAT 11/05/2023 1:32 AM BRICK [facility]ON PANEL HEPATIC FUNCTION STAT 1:32 AM BRICK MASON FIBRINOGEN STAT 11/05/2023 1:32 AM BRICK MASON CK, TOTAL STAT 11/05/2023 1:32 AM [facility] PC LAB CBC/PLT STAT 11/05/2023 1:32 AM BRICK [facility]ON PC LAB PTT STAT 11/05/2023 1:32 AM BRICK [facility]ON PC TROPONIN QUANTITATIVE Timed 11/05/2023 1:18 AM [facility]ON PC LACTATE (LACTIC ACID) STAT 11/05/2023 1:18 AM BR[facility]ON PC IONIZED,CALCIUM STAT 11/05/2023 1: 18 AM [facility]ON PC GASES,BLOOD,ANY COMB OF PH,PCD2,PO2,CO2,HCO2 STAT 11/05/2023 1:[address] HEAD-NECK - ANGIO - W/IV CON STAT 11/05/2023 12:09 AM BRICK [facility]ON PC LAB COMPLETE UA STAT 11/04/2023 11 :55 PM BRICK MASON PF INSERT CATH,ART,PERCUT,SANTA ERM Routine 11/04/2023 11:43 PM BRICK MASON ED EKG (12-LEAD) Routine 11/04/2023 11:[address] SPINE THORACIC NO IV CON STAT 11/04/2023 11:[address] SPINE LUMBAR NO IV CON STAT 11/04/2023 11:[address] SPINE CERVICAL NO IV CON STAT 11/04/2023 11:[address] HEAD NO IV CONTRAST STAT 11:[address] CHEST/ABD/PELVIS W/IV CONT STAT 11/04/2023 11:05 PM BRICK [facility]ON XR CHEST 1 VIEW AP OR PA* STAT 11/04/2023 10:57 PM [facility]ICK [facility] PC ELECTROLYTES PANEL STAT 11/04/2023 10:48 PM BRICK [facility]ON TC LAB ER STAT TOTAL HGB STAT 11/04/2023 10:48 PM BRICK [facility] PC LAB ED INR STAT 11/04/2023 10:45 PM BRICK [facility]ON TC LAB BLOOD DRAW BY VENIPUNCTURE Routine 11/04/2023 10:45 PM BRICK [facility]ON EXTRA TUBE - SST Routine 11/04/2023 10:4 5 PM [facility] PC TROPONIN QUANTITATIVE STAT 11/04/2023 10:45 PM BRICK [facility] PC LAB CBC W/DIFF & PLT STAT 11/04/2023 10:45 PM BRICK [facility]ON PRECAUTIONARY TUBE STAT 11/04/2023 10 :45 PM BRICK [facility] PC LACTATE (LACTIC ACID) STAT 11/04/2023 10:45 PM BRICK [facility]ON PC GASES,BLOOD,ANY COMB OF PH,PCD2,PO2,CO2,HCO2 STAT 11/04/2023 10:45 PM BRICK [facility]ON FIBRINOGEN STAT 11/04/2023 10:45 PM BRICK [facility]ON PC HEPARIN ASSAY STAT 11/04/2023 10:4 5 PM BRICK [facility] PC LAB PTT STAT 11/04/2023 10:45 PM BRICK MASON ED US CRITICAL CARE STAT 11/04/2023 1 0:40 PM BRICK MASON documented in this encounter Results * (ABNORMAL) PANEL BASIC METABOLIC (BMP) (11/16/2023 7:22 AM BRICK MASON) Sodium 143 135 - 148 mEq/L [facility] Potassium 3.9 3.5 - 5.3 mEq/L [facility] Chloride 105 92 - 108 mEq/L [facility] CO2 27 22 - 30 mEq/L [facility] AnGap 11 8 - 16 mEq/L [facility] Glucose 87 70 - 100 mg/dL [facility] BUN 23 8 - 23 mg/dL [facility] Creatinine 1.19(H) 0.50 - 1.00 mg/dL [facility] Calcium 9.4 8.8 - 10.2 mg/dL [facility] eGFR (2020 CKD-EPI) 46(L) >=60 ml/min/1.7 3m2 [facility] Comment: The estimated glomerular filtration rate (eGFR) was calculated using the CKD-EPI 2020 creatinine equation, which does not include race as a factor. This equation is validated in individuals 18 years of age and older, and eGFR is normalized to a body surface area of 1.73m^2. Blood 11/16/2023 7:22 AM BRICK MASON 11/16/2023 7:43 AM BRICK MASON Jesusita Aiken APRN, EMILY LABORATO RY Performing Organization Address City/[facility]/ZIP Co de Phone Number [facility] [place] [address] * POC GLUCOSE (11/16/2023 6:58 AM BRICK MASON) POC Glucose 84 70 - 100 mg/dL [facility] Blood 11/16/2023 6:58 AM BRICK [facility]ON Devin Dougherty MD LABORATORY Performing Organization Address City/[facility]/ZIP Co de Phone Number [facility] [address] [place] [address], [place] * POC GLUCOSE (11/15/2023 9:15 PM BRICK MASON) POC Glucose 83 70 - 100 mg/dL [facility] Blood 11/15/2023 9:15 PM BRICK MASON Devin Dougherty MD LABORATORY Performing Organization Address City/[facility]/ZIP Co de Phone Number [facility] [address] [place] [address], [place] * POC GLUCOSE (11/15/2023 4:09 PM BRICK MASON) POC Glucose 91 70 - 100 mg/dL [facility] Blood 11/15/2023 4:09 PM BRICK MASON Devin Dougherty MD LABORATORY Performing Organization Address City/[facility] Co de Phone Number [facility] [address] [place] [address], [place] * POC GLUCOSE (11/15/2023 12:46 PM BRICK MASON) POC Glucose 88 70 - 100 mg/dL [facility] Blood 11/15/2023 12:4 6 PM BR[facility]ON Devin Dougherty MD LABORATORY Performing Organization Address City/[facility] Co de Phone Number [facility] [address] [place] [address], [place] * PANEL BASIC METABOLIC (BMP) (11/15/2023 7:39 AM BRICK MASON) CO2 27 22 - 30 mEq/L [facility] Glucose 96 70 - 100 mg/dL [facility] BUN 20 8 - 23 mg/dL [facility] Creatinine 0.89 0.50 - 1.00 mg/dL [facility] Calcium 9.4 8.8 - 10.2 mg/dL [facility] Sodium 142 135 - 148 mEq/L [facility] Potassium 3.7 3.5 - 5.3 mEq/L [facility] Chloride 104 92 - 108 mEq/L [facility] eGFR (2020 CKD-EPI) 65 >=60 ml/min/1.7 3m2 [facility] Comment: The estimated glomerular filtration rate (eGFR) was calculated using the CKD-EPI 2020 creatinine equation, which does not include race as a factor. This equation is validated in individuals 18 years of age and older, and eGFR is normalized to a body surface area of 1.73m^2. AnGap 11 8 - 16 mEq/L [facility] Blood 11/15/2023 7:39 AM BRICK MASON 11/15/2023 8:31 AM BRICK MASON Jesusita Aiken APRN, LABORER [employer] [facility]ORATO RY [facility] [place] [address] * (ABNORMAL) POC GLUCOSE (11/15/2023 6:11 AM BRICK MASON) POC Glucose 105(H) 70 - 100 mg/dL [facility] Blood 11/15/2023 6:11 AM BR[facility]ON Devin Dougherty MD LABORATORY Performing Organization Address City/[facility] Co de Phone Number [facility] [place] [phone], [place] * (ABNORMAL) POC GLUCOSE (11/14/2023 9:02 PM BRICK MASON) POC Glucose 168(H) 70 - 100 mg/dL [facility] Blood 11/14/2023 9:02 PM BRICK MASON Devin Dougherty MD LABORATORY Performing Organization Address City/[facility] Co de Phone Number [facility] [address] [place] [address], [place] * (ABNORMAL) POC GLUCOSE (11/14/2023 4:21 PM BRICK MASON) POC Glucose 128(H) 70 - 100 mg/dL [facility] Blood 11/14/2023 4:21 PM BR[facility]ON Devin Dougherty MD LABORATORY Performing Organization Address City/[facility] Co de Phone Number [facility] [address] [place] [address], [place] * POC GLUCOSE (11/14/2023 12:19 PM BRICK MASON) POC Glucose 84 70 - 100 mg/dL [facility] Blood 11/14/2023 12:1 9 PM BR[facility]ON Devin Dougherty MD LABORATORY Performing Organization Address City/[facility] Co de Phone Number [facility] POINT [facility] [address] [place] [address], [place] * (ABNORMAL) PANEL BASIC METABOLIC (BMP) (11/14/2023 8:59 AM BRICK MASON) CO2 28 22 - 30 mEq/L [facility] Glucose 158(H) 70 - 100 mg/dL [facility] BUN 19 8 - 23 mg/dL [facility] Creatinine 0.79 0.50 - 1.00 mg/dL [facility] Calcium 9.3 8.8 - 10.2 mg/dL [facility] eGFR (2020 CKD-EPI) 75 >=60 ml/min/1.7 3m2 [facility] Comment: The estimated glomerular filtration rate (eGFR) was calculated using the CKD-EPI 2020 creatinine equation, which does not include race as a factor. This equation is validated in individuals 18 years of age and older, and eGFR is normalized to a body surface area of 1.73m^2. Sodium 142 135 - 148 mEq/L [facility] Potassium 3.8 3.5 - 5.3 mEq/L [facility] Chloride 103 92 - 108 mEq/L [facility] AnGap 11 8 - 16 mEq/L [facility] Blood 11/14/2023 8:59 AM BRICK [facility]ON 11/14/2023 9:21 AM BR[facility]ON Jesusita Aiken APRN, LABORER [employer] RY [facility] [address] [place] [phone] * (ABNORMAL) POC GLUCOSE (11/14/2023 8:11 AM BRICK MASON) POC Glucose 139(H) 70 - 100 mg/dL [facility] Blood 11/14/2023 8:11 AM BR[facility]ON Devin Dougherty MD LABORATORY [facility] CARE [address] [place] [address], [place] * (ABNORMAL) POC GLUCOSE (11/13/2023 9:15 PM BRICK MASON) POC Glucose 120(H) 70 - 100 mg/dL [facility] Blood 11/13/2023 9:15 PM BR[facility]ON Devin Dougherty MD LABORATORY Performing Organization Address City/[facility] Co de Phone Number [facility] POINT OF [address] [address], [place] * (ABNORMAL) POC GLUCOSE (11/13/2023 4:03 PM BRICK MASON) POC Glucose 169(H) 70 - 100 mg/dL [facility] Blood 11/13/2023 4:03 PM BR[facility]ON Devin Dougherty MD LABORATORY [facility] [address] [place] [address], [place] * (ABNORMAL) POC GLUCOSE (11/13/2023 11:21 AM BRICK MASON) POC Glucose 166(H) 70 - 100 mg/dL [facility] Blood 11/13/2023 11:2 1 AM [facility]ON Devin Dougherty MD LABORATORY Performing Organization Address [facility] Co de Phone Number [facility] [address] [place] [address] * (ABNORMAL) PANEL BASIC METABOLIC (BMP) (11/13/2023 6:41 AM BRICK MASON) CO2 30 22 - 30 mEq/L [facility] Glucose 121(H) 70 - 100 mg/dL [facility] BUN 24(H) 8 - 23 mg/dL [facility] Creatinine 0.87 0.50 - 1.00 mg/dL [facility] Calcium 8.9 8.8 - 10.2 mg/dL [facility] Sodium 143 135 - 148 mEq/L [facility] Potassium 3.0(L) 3.5 - 5.3 mEq/L [facility] Chloride 103 92 - 108 mEq/L [facility] eGFR (2020 CKD-EPI) 67 >=60 ml/min/1.7 3m2 [facility] Comment: The estimated glomerular filtration rate (eGFR) was calculated using the CKD-EPI 2020 creatinine equation, which does not include race as a factor. This equation is validated in individuals 18 years of age and older, and eGFR is normalized to a body surface area of 1.73m^2. AnGap 10 8 - 16 mEq/L [facility] Blood 11/13/2023 6:41 AM BRICK [facility]ON 11/13/2023 7:37 AM [facility]ON Quinn Covarrubias MD LABORATORY Performing Organization Address [facility] Co de Phone Number [facility] [place] [address] * (ABNORMAL) POC GLUCOSE (11/13/2023 6:31 AM BRICK MASON) POC Glucose 128(H) 70 - 100 mg/dL [facility] Blood 11/13/2023 6:31 AM BR[facility]ON Devin Dougherty MD LABORATORY Performing Organization Address City/[facility]/ZIP Co de Phone Number [facility] [address] [place] [address], [place] * POC GLUCOSE (11/12/2023 9:21 PM BRICK MASON) [facility] POC Glucose 97 70 - 100 mg/dL [facility] Comment:R2 <=% Blood 11/12/2023 9:21 PM BR[facility]ON Devin Dougherty MD LABORATORY Performing Organization Address [facility] Co de Phone Number [facility] [address] [place] [address], [place] * POC GLUCOSE (11/12/2023 4:12 PM BRICK MASON) [facility] POC Glucose 89 70 - 100 mg/dL [facility] PO[facility] Blood 11/12/2023 4:12 PM BR[facility]ON Devin Dougherty MD LABORATORY Performing Organization Address [facility] Co de Phone Number [facility] [address] [place] [address], [place] * (ABNORMAL) PANEL BASIC METABOLIC (BMP) (11/12/2023 1:01 PM BRICK MASON) [facility] Sodium 144 135 - 148 mEq/L [facility] Potassium 3.4(L) 3.5 - 5.3 mEq/L [facility] Chloride 104 92 - 108 mEq/L [facility] CO2 31(H) 22 - 30 mEq/L [facility] AnGap 9 8 - 16 mEq/L [facility] Glucose 118(H) 70 - 100 mg/dL [facility] BUN 29(H) 8 - 23 mg/dL [facility] Creatinine 0.92 0.50 - 1.00 mg/dL [facility] Calcium 9.3 8.8 - 10.2 mg/dL [facility] eGFR (2020 CKD-EPI) 63 >=60 ml/min/1.7 3m2 [facility] Comment: The estimated glomerular filtration rate (eGFR) was calculated using the CKD-EPI 2020 creatinine equation, which does not include race as a factor. This equation is validated in individuals 18 years of age and older, and eGFR is normalized to a body surface area of 1.73m^2. Blood 11/12/2023 1:01 PM BRICK MASON 11/12/2023 1:44 PM BRICK MASON Quinn Covarrubias MD LABORATORY [facility] [address] [place] [address] * (ABNORMAL) POC GLUCOSE (11/12/2023 12:14 PM BRICK MASON) POC Glucose 117(H) 70 - 100 mg/dL [facility] Blood 11/12/2023 12:1 4 PM BR[facility]ON Devin Dougherty MD LABORATORY Performing Organization Address City/[facility]/ZIP Co de Phone Number [facility] [address] [place] [phone], [place] * POC GLUCOSE (11/12/2023 6:09 AM BRICK MASON) POC Glucose 80 70 - 100 mg/dL [facility] Blood 11/12/2023 6:09 AM BR[facility]ON Devin Dougherty MD LABORATORY Performing Organization Address City/[facility]/ZIP Co de Phone Number [facility] [address] [place] [address], [place] * POC GLUCOSE (11/11/2023 8:48 PM BRICK MASON) POC Glucose 99 70 - 100 mg/dL [facility] Blood 11/11/2023 8:48 PM BR[facility]ON Devin Dougherty MD LABORATORY [facility] [address] [place] [address], [place] * POC GLUCOSE (11/11/2023 4:11 PM BRICK MASON) POC Glucose 93 70 - 100 mg/dL [facility] Blood 11/11/2023 4:11 PM BRICK MASON Devin Dougherty MD LABORATORY Performing Organization Address City/[facility]/ZIP Co de Phone Number [facility] [address] [place] [address], [place] * POC GLUCOSE (11/11/2023 11:47 AM BRICK MASON) Pathologist [facility] POC Glucose 89 70 - 100 mg/dL [facility] Blood 11/11/2023 11:4 7 AM BR[facility]ON Devin Dougherty MD LABORATORY Performing Organization Address City/[facility] Co de Phone Number [facility] [address] [place] [address], [place] * PHOSPHORUS (11/11/2023 6:09 AM BRICK MASON) Pathologist [facility] Phosphorus 3.5 2.5 - 4.5 mg/dL [facility] Blood 11/11/2023 6:09 AM BRICK MASON 11/11/2023 6:36 AM BRICK [facility]ON Quinn Covarrubias MD LABORATORY Performing Organization Address City/[facility] Co de Phone Number [facility] [address] [phone] * (ABNORMAL) PANEL BASIC METABOLIC (BMP) (11/11/2023 6:09 AM BRICK MASON) Pathologist [facility] Sodium 143 135 - 148 mEq/L [facility] Potassium 3.3(L) 3.5 - 5.3 mEq/L [facility] Chloride 106 92 - 108 mEq/L [facility] AnGap 8 8 - 16 mEq/L [facility] CO2 29 22 - 30 mEq/L [facility] Glucose 79 70 - 100 mg/dL [facility] BUN 30(H) 8 - 23 mg/dL [facility] Creatinine 0.83 0.50 - 1.00 mg/dL [facility] Calcium 9.0 8.8 - 10.2 mg/dL [facility] eGFR (2020 CKD-EPI) 71 >=60 ml/min/1.7 3m2 [facility] Comment: The estimated glomerular filtration rate (eGFR) was calculated using the CKD-EPI 2020 creatinine equation, which does not include race as a factor. This equation is validated in individuals 18 years of age and older, and eGFR is normalized to a body surface area of 1.73m^2. Blood 11/11/2023 6:09 AM BRICK MASON 11/11/2023 6:36 AM BRICK MASON Quinn Covarrubias MD LABORATORY Performing Organization Address City/[facility] Co de Phone Number [facility] [address] [address] * MAGNESIUM (11/11/2023 6:09 AM BRICK MASON) Pathologist [facility] Magnesium 2.2 1.6 - 2.4 mg/dL [facility] Blood 11/11/2023 6:09 AM BRICK MASON 11/11/2023 6:36 AM BRICK MASON Quinn Covarrubias MD LABORATORY Performing Organization Address [facility] Co de Phone Number [facility] [address] [address] * (ABNORMAL) CBC WITH PLATELET (11/11/2023 6:09 AM BRICK MASON) WBC 5.60 4.00 - 10.00 k/cmm [facility] RBC 3.80(L) 3.90 - 5.20 m/cmm [facility] Hgb 9.5(L) 11.5 - 15.7 g/dL [facility] Hematocrit 31.4(L) 34.0 - 45.0 % [facility] MCV 82.6 80.0 - 100.0 fL [facility] MCH 25.0 25.0 - 32.0 pg [facility] MCHC 30.3(L) 31.0 - 36.0 g/dL [facility] RDW 16.1(H) 11.5 - 14.5 % [facility] Plt 275 150 - 400 k/cmm [facility] MPV 11.8 6.5 - 12.5 fL [facility] Blood 11/11/2023 6:09 AM BRICK MASON 11/11/2023 6:36 AM BRICK MASON Quinn Covarrubias MD LABORATORY [facility] [address] [place] [address] * POC GLUCOSE (11/10/2023 8:58 PM BRICK MASON) POC Glucose 82 70 - 100 mg/dL [facility] Blood 11/10/2023 8:58 PM BRICK MASON Devin Dougherty MD LABORATORY Performing Organization Address City/[facility]/ZIP Co de Phone Number [facility] [address] [place] [phone], [place] * (ABNORMAL) POC GLUCOSE (11/10/2023 4:16 PM BRICK MASON) POC Glucose 110(H) 70 - 100 mg/dL [facility] Blood 11/10/2023 4:16 PM BRICK MASON Devin Dougherty MD LABORATORY Performing Organization Address [facility] Co de Phone Number [facility] [address] [place] [phone], [place] * POC GLUCOSE (11/10/2023 11:15 AM BRICK MASON) POC Glucose 93 70 - 100 mg/dL [facility] Blood 11/10/2023 11:1 5 AM BRICK MASON Devin Dougherty MD LABORATORY [facility] [address] [place] [address], [place] * PHOSPHORUS (11/10/2023 6:17 AM BRICK MASON) Phosphorus 3.8 2.5 - 4.5 mg/dL [facility] Blood 11/10/2023 6:17 AM BRICK MASON 11/10/2023 6:32 AM BRICK MASON Quinn Covarrubias MD LABORATORY Performing Organization Address City/[facility] Co de Phone Number [facility] [address] [address] * (ABNORMAL) PANEL BASIC METABOLIC (BMP) (11/10/2023 6:17 AM BRICK MASON) Sodium 145 135 - 148 mEq/L [facility] Potassium 3.6 3.5 - 5.3 mEq/L [facility] Chloride 107 92 - 108 mEq/L [facility] CO2 27 22 - 30 mEq/L [facility] Glucose 109(H) 70 - 100 mg/dL [facility] BUN 40(H) 8 - 23 mg/dL [facility] Creatinine 1.15(H) 0.50 - 1.00 mg/dL [facility] Calcium 9.1 8.8 - 10.2 mg/dL [facility] AnGap 11 8 - 16 mEq/L [facility] eGFR (2020 CKD-EPI) 48(L) >=60 ml/min/1.7 3m2 [facility] Comment: The estimated glomerular filtration rate (eGFR) was calculated using the CKD-EPI 2020 creatinine equation, which does not include race as a factor. This equation is validated in individuals 18 years of age and older, and eGFR is normalized to a body surface area of 1.73m^2. Blood 11/10/2023 6:17 AM BRICK MASON 11/10/2023 6:32 AM BRICK MASON Quinn Covarrubias MD LABORATORY Performing Organization Address City/[facility]/ZIP Co de Phone Number [facility] [address] [id number] * MAGNESIUM (11/10/2023 6:17 AM BRICK MASON) Magnesium 2.3 1.6 - 2.4 mg/dL [facility] Blood 11/10/2023 6:17 AM BRICK MASON 11/10/2023 6:32 AM BRICK MASON Quinn Covarrubias MD LABORATORY Performing Organization Address City/[facility]/ZIP Co de Phone Number [facility] [address] [address] * (ABNORMAL) CBC WITH PLATELET (11/10/2023 6:17 AM BRICK MASON) Pathologist [facility] WBC 6.82 4.00 - 10.00 k/cmm [facility] RBC 3.64(L) 3.90 - 5.20 m/cmm [facility] Hgb 9.1(L) 11.5 - 15.7 g/dL [facility] Hematocrit 30.3(L) 34.0 - 45.0 % [facility] MCV 83.2 80.0 - 100.0 fL [facility] MCH 25.0 25.0 - 32.0 pg [facility] MCHC 30.0(L) 31.0 - 36.0 g/dL [facility] RDW 16.1(H) 11.5 - 14.5 % [facility] Plt 259 150 - 400 k/cmm [facility] MPV 11.8 6.5 - 12.5 fL [facility] Blood 11/10/2023 6:17 AM BRICK MASON 11/10/2023 6:32 AM BRICK MASON Quinn Covarrubias MD LABORATORY Performing Organization Address [facility] [facility]/ZIP Co de Phone Number [facility] [address] [address] * (ABNORMAL) POC GLUCOSE (11/09/2023 9:41 PM BRICK MASON) Pathologist [facility] POC Glucose 136(H) 70 - 100 mg/dL [facility] Blood 11/09/2023 9:41 PM BRICK MASON Devin Dougherty MD LABORATORY [facility]ARE [address] [place] [address], [place] * (ABNORMAL) POC GLUCOSE (11/09/2023 3:58 PM BRICK MASON) Pathologist [facility] POC Glucose 157(H) 70 - 100 mg/dL [facility] Blood 11/09/2023 3:58 PM BRICK MASON Devin Dougherty MD LABORATORY Performing Organization Address [facility] Co de Phone Number [facility] POINT OF [facility] [address] [place] [address], [place] * ANTI XA ASSAY LMW HEPARIN (11/09/2023 2:18 PM BRICK MASON) Anti XA LMW 0.32 IU/mL [facility] Comment: Anti Xa Assay LMW Heparin Therapeutic Ranges: 0.4-1.1 IU/mL for twice daily 1.0-2.0 IU/mL for once daily Blood 11/09/2023 2:18 PM BRICK MASON 11/09/2023 2:29 PM BRICK MASON Quinn Covarrubias MD LABORATORY Performing Organization Address [facility] Co de Phone Number [facility] [address] [address] * (ABNORMAL) POC GLUCOSE (11/09/2023 11:28 AM BRICK MASON) POC Glucose 174(H) 70 - 100 mg/dL [facility] POINT [facility] CARE Blood 11/09/2023 11:2 8 AM BRICK MASON Devin Dougherty MD LABORATORY Performing Organization Address [facility] Co de Phone Number [facility] POINT [facility] CARE [address] [place] [address], [place] * XR FOOT RIGHT 3 V AP/OBL/LAT* (11/09/2023 10:36 AM BRICK MASON) Anatomical Region Laterality Modality Foot Computed Radiogr aphy 11/09/2023 10:4 7 AM BRICK MASON Impressions 11/09/2023 10:50 AM BRICK MASON Impression: No acute osseous abnormality. Generalized osteopenia. Reading Radiologist: Angela Camp Narrative 11/09/2023 10:50 AM BRICK MASON Technique: XR FOOT RIGHT 3 V AP/OBL/LAT* [...] osteopenia. Reading Radiologist: Angela Camp Jesusita Aiken CALIBRATION TESTER, LABORER [employer] RAD XRAY * POC GLUCOSE (11/09/2023 5:46 AM BRICK MASON) [facility] Signature POC Glucose 97 70 - 100 mg/dL [facility] Blood 11/09/2023 5:46 AM BRICK MASON Devin Dougherty MD LABORATORY Performing Organization Address City/[facility]/ZIP Co de Phone Number [facility] [address] [place] [address] * (ABNORMAL) VALPROATE (DEPAKOTE) LEVEL (11/09/2023 5:41 AM BRICK MASON) Valproate 31.8(L) 50.0 - 100.0 mcg/mL [facility] Blood 11/09/2023 5:41 AM BRICK MASON 11/09/2023 8:19 AM BRICK MASON Quinn Covarrubias MD LABORATORY [facility] [place] [address] * PHOSPHORUS (11/09/2023 5:41 AM BRICK MASON) Phosphorus 3.9 2.5 - 4.5 mg/dL [facility] Blood 11/09/2023 5:41 AM BRICK MASON 11/09/2023 6:38 AM BRICK MASON Quinn Covarrubias MD LABORATORY Performing Organization Address [facility] Co de Phone Number [facility] [address] [address] * (ABNORMAL) PANEL BASIC METABOLIC (BMP) (11/09/2023 5:41 AM BRICK MASON) Sodium 142 135 - 148 mEq/L [facility] Potassium 3.1(L) 3.5 - 5.3 mEq/L [facility] Chloride 105 92 - 108 mEq/L [facility] CO2 30 22 - 30 mEq/L [facility] Glucose 91 70 - 100 mg/dL [facility] BUN 23 8 - 23 mg/dL [facility] Creatinine 1.09(H) 0.50 - 1.00 mg/dL [facility] Calcium 8.8 8.8 - 10.2 mg/dL [facility] AnGap 7(L) 8 - 16 mEq/L [facility] eGFR (2020 CKD-EPI) 51(L) >=60 ml/min/1.7 3m2 [facility] Comment: The estimated glomerular filtration rate (eGFR) was calculated using the CKD-EPI 2020 creatinine equation, which does not include race as a factor. This equation is validated in individuals 18 years of age and older, and eGFR is normalized to a body surface area of 1.73m^2. Blood 11/09/2023 5:41 AM BRICK MASON 11/09/2023 6:38 AM BRICK MASON Quinn Covarrubias MD LABORATORY Performing Organization Address [facility] Co de Phone Number [facility] [address] [address] * MAGNESIUM (11/09/2023 5:41 AM BRICK MASON) Magnesium 2.1 1.6 - 2.4 mg/dL [facility] Blood 11/09/2023 5:41 AM BRICK MASON 11/09/2023 6:38 AM BRICK MASON Quinn Covarrubias MD LABORATORY Performing Organization Address [facility] Co de Phone Number [facility] [address] [address] * (ABNORMAL) CBC WITH PLATELET (11/09/2023 5:41 AM BRICK MASON) Pathologist [facility] WBC 6.97 4.00 - 10.00 k/cmm [facility] RBC 3.42(L) 3.90 - 5.20 m/cmm [facility] Hgb 8.8(L) 11.5 - 15.7 g/dL [facility] Hematocrit 28.4(L) 34.0 - 45.0 % [facility] MCV 83.0 80.0 - 100.0 fL [facility] MCH 25.7 25.0 - 32.0 pg [facility] MCHC 31.0 31.0 - 36.0 g/dL [facility] RDW 16.0(H) 11.5 - 14.5 % [facility] Plt 227 150 - 400 k/cmm [facility] MPV 12.0 6.5 - 12.5 fL [facility] Blood 11/09/2023 5:41 AM BRICK MASON 11/09/2023 6:38 AM BRICK MASON Quinn Covarrubias MD LABORATORY [facility] [place] [address] * (ABNORMAL) POC GLUCOSE (11/08/2023 8:40 PM BRICK MASON) [facility] POC Glucose 125(H) 70 - 100 mg/dL [facility] Blood 11/08/2023 8:40 PM BRICK MASON Devin Dougherty MD LABORATORY [facility] [address] [place] [address], * PHOSPHORUS (11/08/2023 4:20 PM BRICK MASON) Pathologist [facility] Phosphorus 3.5 2.5 - 4.5 mg/dL [facility] Blood 11/08/2023 4:20 PM BRICK MASON 11/08/2023 4:38 PM BRICK MASON Jesusita K EMILY Aiken APRNNATE RY Performing Organization Address [facility] Co de Phone Number [facility] [address] [place] [phone] * MAGNESIUM (11/08/2023 4:20 PM BRICK MASON) Magnesium 2.0 1.6 - 2.4 mg/dL [facility] Blood 11/08/2023 4:20 PM BRICK MASON 11/08/2023 4:38 PM BRICK MASON Jesusita Wild Nelli CHO EMILY MORENOATO RY Performing Organization Address [facility] de Phone Number [facility] [address] [address] * (ABNORMAL) PANEL BASIC METABOLIC (BMP) (11/08/2023 4:20 PM BRICK MASON) Sodium 142 135 - 148 mEq/L [facility] Potassium 3.4(L) 3.5 - 5.3 mEq/L [facility] Chloride 105 92 - 108 mEq/L [facility] CO2 28 22 - 30 mEq/L [facility] AnGap 9 8 - 16 mEq/L [facility] Glucose 149(H) 70 - 100 mg/dL [facility] BUN 17 8 - 23 mg/dL [facility] Creatinine 0.82 0.50 - 1.00 mg/dL [facility] Calcium 8.9 8.8 - 10.2 mg/dL [facility] eGFR (2020 CKD-EPI) 72 >=60 ml/min/1.7 3m2 [facility] Comment: The estimated glomerular filtration rate (eGFR) was calculated using the CKD-EPI 2020 creatinine equation, which does not include race as a factor. This equation is validated in individuals 18 years of age and older, and eGFR is normalized to a body surface area of 1.73m^2. Blood 11/08/2023 4:20 PM BRICK MASON 11/08/2023 4:38 PM BRICK MASON Jesusita K Nelli CHO CNP JOSHATO RY Performing Organization Address City/[facility]/ZIP Co de Phone Number [facility] [address] [address] * (ABNORMAL) CBC WITH PLATELET (11/08/2023 4:20 PM BRICK MASON) [facility] WBC 8.46 4.00 - 10.00 k/cmm [facility] RBC 3.65(L) 3.90 - 5.20 m/cmm [facility] Hgb 9.1(L) 11.5 - 15.7 g/dL [facility] Hematocrit 30.2(L) 34.0 - 45.0 % [facility] MCV 82.7 80.0 - 100.0 fL [facility] MCH 24.9(L) 25.0 - 32.0 pg [facility] MCHC 30.1(L) 31.0 - 36.0 g/dL [facility] RDW 16.0(H) 11.5 - 14.5 % [facility] Plt 227 150 - 400 k/cmm [facility] MPV 11.7 6.5 - 12.5 fL [facility] Blood 11/08/2023 4:20 PM BRICK MASON 11/08/2023 4:38 PM BRICK MASON EMILY Martinez APRNN[facility] RY Performing Organization Address City/[facility]/ZIP Co de Phone Number [address] [address] * (ABNORMAL) POC GLUCOSE (11/08/2023 3:56 PM BRICK MASON) [facility] POC Glucose 150(H) 70 - 100 mg/dL [facility]INT [facility] CARE Blood 11/08/2023 3:56 PM BRICK MASON Devin Dougherty MD LABORATORY Performing Organization Address City/[facility]/ZIP Co de Phone Number [facility] POINT [facility] CARE [address] [place] [address] * (ABNORMAL) POC GLUCOSE (11/08/2023 11:03 AM BRICK MASON) [facility] POC Glucose 162(H) 70 - 100 mg/dL [facility] POINT [facility] CARE Blood 11/08/2023 11:0 3 AM BRICK MASON Devin Dougherty MD LABORATORY [facility] [address] [place] [address], [place] * XR CHEST 1 VIEW AP OR PA* (11/08/2023 6:30 AM BRICK MASON) Anatomical Region Laterality Modality Chest Computed Radiogr aphy 11/08/2023 6:56 AM BRICK MASON Impressions 11/08/2023 7:24 AM BRICK MASON Impression: Stable chest. I have personally reviewed the image(s) and initial interpretation, and I agree with the findings as documented by the resident/fellow. Reading Radiologist: Ronal Hidalgo Reading Resident: Laith Berkowitz Narrative 11/08/2023 7:24 AM BRICK MASON Technique: XR CHEST 1 VIEW AP OR [...] * (ABNORMAL) POC GLUCOSE (11/08/2023 6:22 AM BRICK MASON) POC Glucose 126(H) 70 - 100 mg/dL [facility] Blood 11/08/2023 6:22 AM BRICK MASON Devin Dougherty MD LABORATORY [facility] POINT OF CARE [address] [place] [address], [place] * (ABNORMAL) POC GLUCOSE (11/07/2023 9:34 PM BRICK MASON) POC Glucose 109(H) 70 - 100 mg/dL [facility] Blood 11/07/2023 9:34 PM BRICK MASON Devin Dougherty MD LABORATORY Performing Organization Address City/[facility]/ZIP Co de Phone Number [facility] POINT [facility] CARE [address] [place] [address], [place] * (ABNORMAL) POC GLUCOSE (11/07/2023 4:06 PM BRICK MASON) POC Glucose 160(H) 70 - 100 mg/dL [facility] POINT [facility] Blood 11/07/2023 4:06 PM BRICK MASON Devin Dougherty MD LABORATORY Performing Organization Address [facility] Co de Phone Number [facility] [address] [place] [address], [place] * (ABNORMAL) POC GLUCOSE (11/07/2023 11:45 AM BRICK MASON) POC Glucose 107(H) 70 - 100 mg/dL [facility] Blood 11/07/2023 11:4 5 AM BRICK MASON Devin Dougherty MD LABORATORY Performing Organization Address City/[facility] Co de Phone Number [facility] POINT OF CARE [address] [place] [address], [place] * XR CHEST 2 VIEWS PA + LAT* (11/07/2023 10:07 AM BRICK MASON) Anatomical Region Laterality Modality Chest Computed Radiogr aphy 11/07/2023 10:0 9 AM BRICK MASON Impressions 11/07/2023 10:10 AM BRICK MASON Impression: New left basilar opacities with small effusion concerning for developing infection. Reading Radiologist: Phil Contreras Narrative 11/07/2023 10:10 AM BRICK MASON Technique: XR CHEST 2 VIEWS PA + [...] RAD XRAY * PROCALCITONIN (11/07/2023 8:34 AM BRICK MASON) Procalcitonin 0.12 ng/mL [facility] Comment: Results <0.50 ng/mL represent a low risk of severe sepsis and/or septic shock. Results >2.0 ng/mL represent a high risk of severe sepsis and/or septic shock. Blood 11/07/2023 8:34 AM BRICK MASON 11/07/2023 8:40 AM BRICK MASON Quinn Covarrubias MD LABORATORY [facility] [address] [address] * (ABNORMAL) CBC WITH PLATELET (11/07/2023 8:34 AM BRICK MASON) WBC 7.45 4.00 - 10.00 k/cmm [facility] RBC 3.49(L) 3.90 - 5.20 m/cmm [facility] Hgb 8.8(L) 11.5 - 15.7 g/dL [facility] Hematocrit 29.0(L) 34.0 - 45.0 % [facility] MCV 83.1 80.0 - 100.0 fL [facility] MCH 25.2 25.0 - 32.0 pg [facility] MCHC 30.3(L) 31.0 - 36.0 g/dL [facility] RDW 15.9(H) 11.5 - 14.5 % [facility] Plt 249 150 - 400 k/cmm [facility] MPV 11.0 6.5 - 12.5 fL [facility] Blood 11/07/2023 8:34 AM BRICK MASON 11/07/2023 8:40 AM BRICK MASON Quinn Covarrubias MD LABORATORY Performing Organization Address [facility] Co de Phone Number [facility] [address] [address] * (ABNORMAL) PANEL BASIC METABOLIC (BMP) (11/07/2023 8:34 AM BRICK MASON) Sodium 145 135 - 148 mEq/L [facility] Potassium 3.5 3.5 - 5.3 mEq/L [facility] Chloride 111(H) 92 - 108 mEq/L [facility] CO2 26 22 - 30 mEq/L [facility] AnGap 8 8 - 16 mEq/L [facility] Glucose 108(H) 70 - 100 mg/dL [facility] BUN 15 8 - 23 mg/dL [facility] Creatinine 0.90 0.50 - 1.00 mg/dL [facility] Calcium 8.8 8.8 - 10.2 mg/dL [facility] eGFR (2020 CKD-EPI) 64 >=60 ml/min/1.7 3m2 [facility] Comment: The estimated glomerular filtration rate (eGFR) was calculated using the CKD-EPI 2020 creatinine equation, which does not include race as a factor. This equation is validated in individuals 18 years of age and older, and eGFR is normalized to a body surface area of 1.73m^2. Blood 11/07/2023 8:34 AM BRICK MASON 11/07/2023 8:40 AM BRICK MASON Quinn Covarrubias MD LABORATORY Performing Organization Address City/[facility]/ZIP Co de Phone Number [facility] [address] [address] * MAGNESIUM (11/07/2023 8:34 AM BRICK MASON) Magnesium 2.3 1.6 - 2.4 mg/dL [facility] Blood 11/07/2023 8:34 AM BRICK MASON 11/07/2023 8:40 AM BRICK MASON Quinn Covarrubias MD LABORATORY Performing Organization Address City/[facility] [place] [address] * (ABNORMAL) PHOSPHORUS (11/07/2023 8:34 AM BRICK MASON) Phosphorus 5.0(H) 2.5 - 4.5 mg/dL [facility] Blood 11/07/2023 8:34 AM BRICK MASON 11/07/2023 8:40 AM BRICK MASON Quinn Covarrubias MD LABORATORY Performing Organization Address [facility] [place] [address] * (ABNORMAL) POC GLUCOSE (11/07/2023 5:45 AM BRICK MASON) POC Glucose 115(H) 70 - 100 mg/dL [facility] Blood 11/07/2023 5:45 AM BRICK MASON Devin Dougherty MD LABORATORY Performing Organization Address City/[facility] Co de Phone Number [facility] [address] [place] [address] * (ABNORMAL) POC GLUCOSE (11/06/2023 9:21 PM BRICK MASON) POC Glucose 149(H) 70 - 100 mg/dL [facility] Blood 11/06/2023 9:21 PM BRICK MASON Devin Dougherty MD LABORATORY Performing Organization Address City/[facility] Co de Phone Number [facility] [place] [address], [place] * (ABNORMAL) BLOOD GASES (11/06/2023 1:06 PM BRICK MASON) PH Jalen 7.36 7.32 - 7.42 [facility] PCO2 Jalen 48 41 - 51 mmHG [facility] PO2 Jalen 86(H) 25 - 40 mmHG [facility] Bicarb Jalen 26 24 - 28 mEq/L [facility] O2 Sat Jalen 96 % [facility] Base Exc Jalen 1.0 -10.0 - 2.0 mEq/L [facility] Blood Venous 11/06/2023 1:06 PM BRICK MASON 11/06/2023 1:10 PM BRICK MASON Narrative [facility] - 11/06/2023 1:16 PM BRICK MASON Draw on Room Air: No O2 LPM (liter/min) Level->4 via mask FiO2 Level: 100 Quinn Covarrubias MD LABORATORY Performing Organization Address City/[facility]/ZIP Co de Phone Number [address] [address] * MAGNESIUM (11/06/2023 1:06 PM BRICK MASON) Magnesium 2.4 1.6 - 2.4 mg/dL [facility] Blood 11/06/2023 1:06 PM BRICK MASON 11/06/2023 1:22 PM BRICK MASON Quinn Covarrubias MD LABORATORY Performing Organization Address City/[facility]/ZIP Co de Phone Number [address] [address] * PHOSPHORUS (11/06/2023 1:06 PM BRICK MASON) Phosphorus 4.2 2.5 - 4.5 mg/dL [facility] Blood 11/06/2023 1:06 PM BRICK MASON 11/06/2023 1:22 PM BRICK MASON Quinn Covarrubias MD LABORATORY Performing Organization Address City/[facility]/ZIP Co de Phone Number [address] [address] * (ABNORMAL) PANEL BASIC METABOLIC (BMP) (11/06/2023 1:06 PM BRICK MASON) Sodium 141 135 - 148 mEq/L [facility] Potassium 3.8 3.5 - 5.3 mEq/L [facility] Chloride 108 92 - 108 mEq/L [facility] CO2 27 22 - 30 mEq/L [facility] AnGap 6(L) 8 - 16 mEq/L [facility] Glucose 184(H) 70 - 100 mg/dL [facility] BUN 15 8 - 23 mg/dL [facility] Creatinine 0.91 0.50 - 1.00 mg/dL [facility] Calcium 8.7(L) 8.8 - 10.2 mg/dL [facility] eGFR (2020 CKD-EPI) 63 >=60 ml/min/1.7 3m2 [facility] Comment: The estimated glomerular filtration rate (eGFR) was calculated using the CKD-EPI 2020 creatinine equation, which does not include race as a factor. This equation is validated in individuals 18 years of age and older, and eGFR is normalized to a body surface area of 1.73m^2. Blood 11/06/2023 1:06 PM BRICK MASON 11/06/2023 1:22 PM BRICK MASON Quinn Covarrubias MD LABORATORY [facility] [address] [address] * (ABNORMAL) CBC WITH PLATELET (11/06/2023 1:06 PM BRICK MASON) WBC 10.82(H) 4.00 - 10.00 k/cmm [facility] RBC 3.58(L) 3.90 - 5.20 m/cmm [facility] Hgb 9.1(L) 11.5 - 15.7 g/dL [facility] Hematocrit 29.6(L) 34.0 - 45.0 % [facility] MCV 82.7 80.0 - 100.0 fL [facility] MCH 25.4 25.0 - 32.0 pg [facility] MCHC 30.7(L) 31.0 - 36.0 g/dL [facility] RDW 15.8(H) 11.5 - 14.5 % [facility] Plt 253 150 - 400 k/cmm [facility] MPV 11.3 6.5 - 12.5 fL [facility] Blood 11/06/2023 1:06 PM BRICK MASON 11/06/2023 1:21 PM BRICK MASON Quinn Covarrubias MD LABORATORY Performing Organization Address [facility] Co de Phone Number [facility] [place] [address] * (ABNORMAL) POC GLUCOSE (11/06/2023 1:04 PM BRICK MASON) POC Glucose 173(H) 70 - 100 mg/dL [facility] Blood 11/06/2023 1:04 PM BRICK MASON Devin Dougherty MD LABORATORY Performing Organization Address [facility] Co de Phone Number [facility] [place] [address], * (ABNORMAL) POC GLUCOSE (11/06/2023 10:49 AM BRICK MASON) POC Glucose 257(H) 70 - 100 mg/dL [facility] Blood 11/06/2023 10:4 9 AM BRICK MASON Devin Dougherty MD LABORATORY Performing Organization Address [facility] de Phone Number [facility] [address] * (ABNORMAL) GLYCOSYLATED HGB - A1C (11/06/2023 6:31 AM BRICK MASON) Hemoglobin A1C 8.1(H) 4.0 - 5.6 % [facility] Comment: Increased risk for diabetes (prediabetes): 5.7-6.4% Diabetes: greater than or equal to 6.5% * * In the absence of unequivocal hyperglycemia, diagnosis requires two abnormal test results (i.e. HbA1c and glucose) or two abnormal results from specimens collected at two different timepoints. Estimated Average Glucose 186(H) 68 - 114 [facility] Comment: The ADA recommends reporting an estimated Average Glucose (eAG) with all hemoglobin A1c results using the equation derived from a study of 501 normal diabetic adults. Minority populations were underrepresented and children were not included. The EAG is not equivalent to a fasting glucose. Blood 11/06/2023 6:31 AM BRICK MASON 11/06/2023 11:28 AM BRICK MASON Quinn Covarrubias MD LABORATORY Performing Organization Address [facility] Co de Phone Number [facility] [address] [id number] * ICU PHOSPHORUS (11/06/2023 6:31 AM BRICK MASON) Phosphorus 4.1 2.5 - 4.5 mg/dL [facility] Blood 11/06/2023 6:31 AM BRICK MASON 11/06/2023 7:37 AM BRICK MASON Devin Dougherty MD LABORATORY Performing Organization Address [facility] de Phone Number [facility] [address] [address] * (ABNORMAL) ICU MAGNESIUM (11/06/2023 6:31 AM BRICK MASON) Magnesium 2.5(H) 1.6 - 2.4 mg/dL [facility] Blood 11/06/2023 6:31 AM BRICK MASON 11/06/2023 7:37 AM BRICK MASON Devin Dougherty MD LABORATORY Performing Organization Address [facility] de Phone Number [facility] [address] [address] * (ABNORMAL) ICU CBC WITH PLATELET (11/06/2023 6:31 AM BRICK MASON) WBC 9.06 4.00 - 10.00 k/cmm [facility] RBC 3.77(L) 3.90 - 5.20 m/cmm [facility] Hgb 9.6(L) 11.5 - 15.7 g/dL [facility] Hematocrit 30.8(L) 34.0 - 45.0 % [facility] MCV 81.7 80.0 - 100.0 fL [facility] MCH 25.5 25.0 - 32.0 pg [facility] MCHC 31.2 31.0 - 36.0 g/dL [facility] RDW 15.9(H) 11.5 - 14.5 % [facility] Plt 284 150 - 400 k/cmm [facility] MPV 12.1 6.5 - 12.5 fL [facility] Blood 11/06/2023 6:31 AM BRICK MASON 11/06/2023 7:37 AM BRICK MASON Devin Dougherty MD LABORATORY Performing Organization Address City/State/[facility] Co de Phone Number [facility] [address] [address] * (ABNORMAL) ICU PANEL BASIC METABOLIC (BMP) (11/06/2023 6:31 AM BRICK MASON) Sodium 142 135 - 148 mEq/L [facility] Potassium 3.7 3.5 - 5.3 mEq/L [facility] Chloride 107 92 - 108 mEq/L [facility] CO2 26 22 - 30 mEq/L [facility] AnGap 9 8 - 16 mEq/L [facility] Glucose 148(H) 70 - 100 mg/dL [facility] BUN 12 8 - 23 mg/dL [facility] Creatinine 0.77 0.50 - 1.00 mg/dL [facility] Calcium 8.7(L) 8.8 - 10.2 mg/dL [facility] eGFR (2020 CKD-EPI) 77 >=60 ml/min/1.7 3m2 [facility] Comment: The estimated glomerular filtration rate (eGFR) was calculated using the CKD-EPI 2020 creatinine equation, which does not include race as a factor. This equation is validated in individuals 18 years of age and older, and eGFR is normalized to a body surface area of 1.73m^2. Blood 11/06/2023 6:31 AM BRICK MASON 11/06/2023 7:37 AM BRICK MASON Devin Dougherty MD LABORATORY Performing Organization Address City/State/[facility] Co de Phone Number [facility] [address] [address] * PROTHROMBIN (PT) & INR (11/06/2023 6:31 AM BRICK MASON) Pathologist [facility] PT 11.4 9.0 - 12.5 sec [facility] INR 1.0 0.8 - 1.1 [facility] Comment: Warfarin Therapeutic Range: Standard Intensity: 2.0 - 3.0 High Intensity: 2.5 - 3.5 Blood 11/06/2023 6:31 AM BRICK MASON 11/06/2023 7:37 AM BRICK MASON Quinn Covarrubias MD LABORATORY Performing Organization Address [facility] Co de Phone Number [address] [address] * (ABNORMAL) POC GLUCOSE (11/06/2023 5:39 AM BRICK MASON) Pathologist [facility] POC Glucose 149(H) 70 - 100 mg/dL [facility] Blood 11/06/2023 5:39 AM BRICK MASON Devin Dougherty MD LABORATORY Performing Organization Address [facility] Co de Phone Number [facility] POINT OF [address] [address], * (ABNORMAL) POC GLUCOSE (11/05/2023 4:54 PM BRICK MASON) Pathologist [facility] POC Glucose 170(H) 70 - 100 mg/dL [facility] Blood 11/05/2023 4:54 PM BRICK MASON Devin Dougherty MD LABORATORY Performing Organization Address City/[facility] Co de Phone Number [facility] POINT OF [address] [address], * (ABNORMAL) MAGNESIUM (11/05/2023 4:48 PM BRICK MASON) Magnesium 2.8(H) 1.6 - 2.4 mg/dL [facility] Blood 11/05/2023 4:48 PM BRICK MASON 11/05/2023 4:58 PM BRICK MASON Quinn Covarrubias MD LABORATORY [facility] [address] [address] * (ABNORMAL) POTASSIUM (11/05/2023 4:48 PM BRICK MASON) Potassium 3.2(L) 3.5 - 5.3 mEq/L [facility] Blood 11/05/2023 4:48 PM BRICK MASON 11/05/2023 4:58 PM BRICK MASON Quinn Covarrubias MD LABORATORY Performing Organization Address [facility] Co de Phone Number [facility] [address] [address] * CT HEAD NO IV CONTRAST (11/05/2023 11:44 AM BRICK MASON) Anatomical Region Laterality Modality Skull Computed Tomogra phy 11/05/2023 12:1 6 PM BRICK MASON Impressions 11/05/2023 12:38 PM BRICK MASON Impression: Stable head CT as compared to the study performed 7 hours earlier. Intra-axial and extra-axial hemorrhage(s) without midline shift or hydrocephalus. The basal cisterns are patent. Reading Radiologist: Ford Fernández 11/05/2023 12:38 PM BRICK MASON Exam: Head CT without contrast, 11/05/2023 Indication: [...] * (ABNORMAL) POC GLUCOSE (11/05/2023 11:11 AM BRICK MASON) POC Glucose 201(H) 70 - 100 mg/dL [facility] Blood 11/05/2023 11:1 1 AM BRICK MASON Devin Dougherty MD LABORATORY Performing Organization Address City/[facility]/ZIP Co de Phone Number [facility]ARE [address] [place] [address], * EKG ADULT (12-LEAD) (11/05/2023 6:38 AM BRICK MASON) 11/05/2023 6:38 AM BRICK MASON Impressions [facility]IS EKG ORDERS - 11/05/2023 6:38 AM BRICK MASON SINUS RHYTHM RIGHT BUNDLE BRANCH BLOCK ??[120+ ms QRS DURATION, UPRIGHT V1, 40+ ms S IN I/aVL/V4/V5/V6] ABNORMAL ECG P-R Interval 151 ms QRS Interval 128 ms QT Interval 420 ms QTC Interval 462 ms P [place] 9 QRS [place] 27 T Wave [place] 70 Narrative Procedure Note Lauren Mills MD - 11/06/2023 IMPRESSION SINUS RHYTHM RIGHT BUNDLE BRANCH BLOCK [120+ ms QRS DURATION, UPRIGHT V1, 40+ ms S INI/aVL/V4/V5/V6] ABNORMAL ECG P-R Interval 151 ms QRS Interval 128 ms QT Interval 420 ms QTC Interval 462 ms P [place] 9 QRS [place] 27 T Wave [place] 70 Quinn Covarrubias MD EKG Performing Organization Address City/[facility]/ZIP Co de Phone Number [facility]IS EKG ORDERS * (ABNORMAL) POC GLUCOSE (11/05/2023 6:07 AM BRICK MASON) POC Glucose 188(H) 70 - 100 mg/dL [facility] Blood 11/05/2023 6:07 AM BRICK MASON Devin Dougherty MD LABORATORY [facility] POINT [place] [address], [place] * CT HEAD NO IV CONTRAST (11/05/2023 4:54 AM BRICK MASON) Anatomical Region Laterality Modality Skull Computed Tomogra phy 11/05/2023 4:56 AM BRICK MASON Impressions 11/05/2023 11:09 AM BRICK MASON Impression: 1. Stable to perhaps minimally increased [...] Reading Resident: Laith Berkowitz 11/05/2023 11:09 AM BRICK MASON Exam: Head CT without contrast, 11/05/2023 Indication: [...] PROTHROMBIN (PT) & INR (11/05/2023 4:27 AM BRICK MASON) PT 12.3 9.0 - 12.5 sec [facility] INR 1.1 0.8 - 1.1 [facility] Comment: This sample may have abnormal results due to the presence of lipemia. Warfarin Therapeutic Range: Standard Intensity: 2.0 - 3.0 High Intensity: 2.5 - 3.5 Blood 11/05/2023 4:27 AM BRICK MASON 11/05/2023 4:35 AM BRICK MASON Quinn Covarrubias MD LABORATORY Performing Organization Address City/[facility]/ZIP Co de Phone Number [facility] [place] [phone] * ICU PHOSPHORUS (11/05/2023 4:27 AM BRICK MASON) Phosphorus 3.5 2.5 - 4.5 mg/dL [facility] Blood 11/05/2023 4:27 AM BRICK MASON 11/05/2023 4:36 AM BRICK MASON Devin Dougherty MD LABORATORY Performing Organization Address City/[facility]/ZIP Co de Phone Number [facility] [address] [address] * (ABNORMAL) ICU MAGNESIUM (11/05/2023 4:27 AM BRICK MASON) Magnesium 1.5(L) 1.6 - 2.4 mg/dL [facility] Blood 11/05/2023 4:27 AM BRICK MASON 11/05/2023 4:36 AM BRICK MASON Devin Dougherty MD LABORATORY [facility] [address] [address] * (ABNORMAL) ICU BLOOD GAS (11/05/2023 4:27 AM BRICK MASON) PH Art 7.38 7.35 - 7.45 [facility] PCO2 Art 42 35 - 45 mmHG [facility] PO2 Art 99(H) 75 - 85 mmHG [facility] Bicarb Art 25 22 - 26 mEq/L [facility] O2 Sat Art 98 96 - 99 % [facility] Base Exc Art 0.0 -10.0 - 2.0 mEq/L [facility] Blood Arterial 11/05/2023 4: 27 AM BRICK MASON 11/05/2023 4:34 AM BRICK MASON Devin Dougherty MD LABORATORY Performing Organization Address City/[facility] Co de Phone Number [facility] [address] [address] * (ABNORMAL) ICU CBC WITH PLATELET (11/05/2023 4:27 AM BRICK MASON) WBC 13.69(H) 4.00 - 10.00 k/cmm [facility] RBC 3.49(L) 3.90 - 5.20 m/cmm [facility] Hgb 9.8(L) 11.5 - 15.7 g/dL [facility] Hematocrit 28.2(L) 34.0 - 45.0 % [facility] MCV 80.8 80.0 - 100.0 fL [facility] MCH 28.1 25.0 - 32.0 pg [facility] MCHC 34.8 31.0 - 36.0 g/dL [facility] RDW 15.4(H) 11.5 - 14.5 % [facility] Plt 330 150 - 400 k/cmm [facility] MPV 10.9 6.5 - 12.5 fL [facility] Blood 11/05/2023 4:27 AM BRICK MASON 11/05/2023 4:35 AM BRICK MASON Devin Dougherty MD LABORATORY [facility] [address] [address] * (ABNORMAL) ICU PANEL BASIC METABOLIC (BMP) (11/05/2023 4:27 AM BRICK MASON) Sodium 138 135 - 148 mEq/L [facility] Potassium 3.2(L) 3.5 - 5.3 mEq/L [facility] Chloride 102 92 - 108 mEq/L [facility] CO2 24 22 - 30 mEq/L [facility] AnGap 12 8 - 16 mEq/L [facility] Glucose 200(H) 70 - 100 mg/dL [facility] BUN 16 8 - 23 mg/dL [facility] Creatinine 0.80 0.50 - 1.00 mg/dL [facility] Calcium 8.7(L) 8.8 - 10.2 mg/dL [facility] eGFR (2020 CKD-EPI) 74 >=60 ml/min/1.7 3m2 [facility] Comment: The estimated glomerular filtration rate (eGFR) was calculated using the CKD-EPI 2020 creatinine equation, which does not include race as a factor. This equation is validated in individuals 18 years of age and older, and eGFR is normalized to a body surface area of 1.73m^2. Blood 11/05/2023 4:27 AM BRICK MASON 11/05/2023 4:36 AM BRICK MASON Devin Dougherty MD LABORATORY Performing Organization Address City/[facility]/ZIP Co de Phone Number [facility] [address] [address] * (ABNORMAL) TROP 6H (11/05/2023 4:27 AM BRICK MASON) 6H Trop 51(H) <=14 ng/L [facility] 6H Delta Significan t(A) Not Significant [facility] Blood 11/05/2023 4:27 AM BRICK MASON 11/05/2023 4:35 AM BRICK MASON Devin Dougherty MD LABORATORY Performing Organization Address [facility]/ZIP Co de Phone Number [facility] [address] [address] * (ABNORMAL) TROP 4H (11/05/2023 2:58 AM BRICK MASON) 4H Trop 39(H) <=14 ng/L [facility] 4H Delta Significan t(A) Not Significant [facility] Blood 11/05/2023 2:58 AM BRICK MASON 11/05/2023 3:48 AM BRICK MASON Devin Dougherty MD LABORATORY Performing Organization Address City/[facility] Co de Phone Number [facility] [place] [phone] * CK, TOTAL (11/05/2023 1:32 AM BRICK MASON) CK 56 26 - 192 IU/L [facility] Blood 11/05/2023 1:32 AM BRICK MASON 11/05/2023 1:32 AM BRICK MASON Devin Dougherty MD LABORATORY Performing Organization Address City/[facility] Co de Phone Number [place] [phone] * FIBRINOGEN (11/05/2023 1:32 AM BRICK MASON) Fibrinogen 262 200 - 400 mg/dL [facility] Blood 11/05/2023 1:32 AM BRICK MASON 11/05/2023 1:32 AM BRICK MASON Devin Dougherty MD LABORATORY Performing Organization Address City/[facility] Co de Phone Number [facility] [address] [address] * PTT (APTT) (11/05/2023 1:32 AM BRICK MASON) APTT 26.0 25.0 - 37.0 sec [facility] Blood 11/05/2023 1:32 AM BRICK MASON 11/05/2023 1:32 AM BRICK MASON Devin Dougherty MD LABORATORY Performing Organization Address City/[facility] Co de Phone Number [facility] [address] [address] * (ABNORMAL) PANEL HEPATIC FUNCTION (11/05/2023 1:32 AM BRICK MASON) Pathologist [facility] Alk Phos 111(H) 35 - 104 IU/L [facility] Total Protein 6.5 6.4 - 8.3 g/dL [facility] Bili Direct na <=0.3 mg/dL [facility] Comment:Direct Bilirubin = < 0.2. Accuracy of result suspect due to lipemia. Albumin 3.8 3.8 - 5.1 g/dL [facility] Bili Total <0.2 <=1.2 mg/dL [facility] ALT (SGPT) na <=33 [facility] Comment:ALT = 15. Accuracy o f result suspect due to lipemia. AST(SGOT) na 5 - 40 [facility] Comment:AST = 27. Accuracy o f result suspect due to lipemia. Blood 11/05/2023 1:32 AM BRICK MASON 11/05/2023 1:32 AM BRICK MASON Devin Dougherty MD LABORATORY [facility] [address] [address] * (ABNORMAL) CBC WITH PLATELET (11/05/2023 1:32 AM BRICK MASON) Pathologist [facility] WBC 14.77(H) 4.00 - 10.00 k/cmm [facility] RBC 3.70(L) 3.90 - 5.20 m/cmm [facility] Hgb 9.9(L) 11.5 - 15.7 g/dL [facility] Hematocrit 30.0(L) 34.0 - 45.0 % [facility] MCV 81.1 80.0 - 100.0 fL [facility] MCH 26.8 25.0 - 32.0 pg [facility] MCHC 33.0 31.0 - 36.0 g/dL [facility] RDW 15.4(H) 11.5 - 14.5 % [facility] Plt 324 150 - 400 k/cmm [facility] MPV 11.0 6.5 - 12.5 fL [facility] Blood 11/05/2023 1:32 AM BRICK MASON 11/05/2023 1:32 AM BRICK MASON Devin Dougherty MD LABORATORY Performing Organization Address [facility] Co de Phone Number [facility] [address] [address] * (ABNORMAL) PANEL BASIC METABOLIC (BMP) (11/05/2023 1:32 AM BRICK MASON) Potassium 3.1(L) 3.5 - 5.3 mEq/L [facility] Sodium 138 135 - 148 mEq/L [facility] CO2 25 22 - 30 mEq/L [facility] Glucose 242(H) 70 - 100 mg/dL [facility] BUN 16 8 - 23 mg/dL [facility] Creatinine 0.76 0.50 - 1.00 mg/dL [facility] Chloride 101 92 - 108 mEq/L [facility] eGFR (2020 CKD-EPI) 79 >=60 ml/min/1.7 3m2 [facility] Comment: The estimated glomerular filtration rate (eGFR) was calculated using the CKD-EPI 2020 creatinine equation, which does not include race as a factor. This equation is validated in individuals 18 years of age and older, and eGFR is normalized to a body surface area of 1.73m^2. AnGap 12 8 - 16 mEq/L [facility] Calcium 8.8 8.8 - 10.2 mg/dL [facility] Blood 11/05/2023 1:32 AM BRICK MASON 11/05/2023 1:32 AM BRICK MASON Devin Dougherty MD LABORATORY Performing Organization Address [facility] Co de Phone Number [facility] [address] [address] * (ABNORMAL) MAGNESIUM (11/05/2023 1:32 AM BRICK MASON) Magnesium 1.5(L) 1.6 - 2.4 mg/dL [facility] Blood 11/05/2023 1:32 AM BRICK MASON 11/05/2023 1:32 AM BRICK MASON Devin Dougherty MD LABORATORY Performing Organization Address [facility] Co de Phone Number [facility] [address] [address] * PHOSPHORUS (11/05/2023 1:32 AM BRICK MASON) Phosphorus 3.4 2.5 - 4.5 mg/dL [facility] Blood 11/05/2023 1:32 AM BRICK MASON 11/05/2023 1:32 AM BRICK MASON Devin Dougherty MD LABORATORY Performing Organization Address [facility] Co de Phone Number [facility] [address] [address] * PROTHROMBIN (PT) & INR (11/05/2023 1:32 AM BRICK MASON) PT 11.8 9.0 - 12.5 sec [facility] INR 1.0 0.8 - 1.1 [facility] Comment: Warfarin Therapeutic Range: Standard Intensity: 2.0 - 3.0 High Intensity: 2.5 - 3.5 Blood 11/05/2023 1:32 AM BRICK MASON 11/05/2023 1:32 AM BRICK MASON Devin Dougherty MD LABORATORY Performing Organization Address [facility] Co de Phone Number [facility] [address] [address] * CALCIUM,IONIZED (11/05/2023 1:18 AM BRICK MASON) PH 7.37 7.32 - 7.42 [facility] ICA, Actual 4.82 4.40 - 5.20 mg/dL [facility] ICA, pH Corrected 4.75 4.40 - 5.20 mg/dL [facility] Blood 11/05/2023 1:18 AM BRICK MASON 11/05/2023 1:27 AM BRICK MASON Narrative [facility] - 11/05/2023 1:44 AM BRICK MASON Send specimen on ice! Devin Dougherty MD LABORATORY Performing Organization Address [facility] Co de Phone Number [facility] [address] [address] * LACTATE (LACTIC ACID) (11/05/2023 1:18 AM BRICK MASON) Lactate 1.9 0.7 - 2.1 mmol/L [facility] Blood 11/05/2023 1:18 AM BRICK MASON 11/05/2023 1:27 AM BRICK MASON Narrative [facility] - 11/05/2023 1:45 AM BRICK MASON Send specimen on ice! Devin Dougherty MD LABORATORY Performing Organization Address [facility] Co de Phone Number [facility] [address] [address] * BLOOD GASES (11/05/2023 1:18 AM BRICK MASON) PH Art 7.37 7.35 - 7.45 [facility] PCO2 Art 43 35 - 45 mmHG [facility] PO2 Art 83 75 - 85 mmHG [facility] Bicarb Art 25 22 - 26 mEq/L [facility] O2 Sat Art 96 96 - 99 % [facility] Base Exc Art -0.3 -10.0 - 2.0 mEq/L [facility] Blood Arterial 11/05/2023 1: 18 AM BRICK MASON 11/05/2023 1:27 AM BRICK MASON Devin Dougherty MD LABORATORY Performing Organization Address [facility] Co de Phone Number [facility] [address] [address] * (ABNORMAL) TROP 2H (11/05/2023 1:18 AM BRICK MASON) 2H Trop 18(H) <=14 ng/L [facility] 2H Delta Indeterminate Not Significant [facility] Blood 11/05/2023 1:18 AM BRICK MASON 11/05/2023 1:45 AM BRICK MASON Devin Dougherty MD LABORATORY Performing Organization Address [facility]/ZIP Co de Phone Number [facility] [address] [address] * CT HEAD-NECK - ANGIO - W/IV CON (11/05/2023 12:09 AM BRICK MASON) Anatomical Region Laterality Modality Skull Computed Tomogra phy 11/05/2023 12:2 1 AM BRICK MASON Impressions 11/05/2023 10:22 AM BRICK MASON Impression: ?? Slightly increased size of the [...] Fernández Resident: Laith Berkowitz 11/05/2023 10:[address] angiogram of the Head with contrast, [...] and reviewed by the Radiologist using the [employer] workstation, and these images were archived in [...] and reviewed by the Radiologist using the [employer] workstation,and these images were archived in the [...] NEURO * (ABNORMAL) URINALYSIS,TOTAL (11/04/2023 11:55 PM BRICK MASON) Color COLORLESS YELLOW [facility] Appearance CLEAR CLEAR [facility] Urine Glucose 100(A) NEGATIVE mg/dL [facility] Bili UA NEGATIVE NEGATIVE [facility] Ketones NEGATIVE NEGATIVE [facility] Specific [place] 1.036(A) 1.003 - 1.030 [facility] Blood Ur NEGATIVE Neg-Trace [facility] PH Urine 7.5(H) 5.0 - 7.0 [facility] Protein Ur TRACE Neg-Trace [facility] Urobilinogen NORMAL NORMAL EU/dL [facility] Nitrite Ur NEGATIVE NEGATIVE [facility] Leuk Est NEGATIVE Neg-Trace [facility] WBC Ur 0-5 0 - 5 perHPF [facility] RBC Ur 0-3 0 - 3 perHPF [facility] SQ EPITH 0-5 0 - 5 perHPF [facility] Urinalysis Performed at: [facility] Urine 11/04/2023 11:5 5 PM BRICK MASON 11/05/2023 12:03 AM BRICK MASON Devin Dougherty MD LABORATORY [facility] [address] [address] * PF INSERT CATH,ART,PERCUT,SHORTTERM (11/04/2023 11:43 PM BRICK MASON) Narrative Rito Graf MD - 11/04/2023 11:43 PM BRICK MASON Pirscilla Holcomb MD ? 11/04/2023 11:44 PM Arterial Line Performed by: Priscilla Holcomb MD Authorized by: Rito Graf MD ?? Consent: ??Consent obtained: ??Verbal ??Consent given by: ??Patient ??Risks discussed: ??Pain, bleeding and infection [place] protocol: ??Patient identity confirmed: ??Verbally with patient, [...] * ED EKG (12-LEAD) (11/04/2023 11:25 PM BRICK MASON) 11/04/2023 11:2 5 PM BRICK MASON Impressions [facility] CVIS EKG ORDERS - 11/04/2023 11:25 PM BRICK MASON SINUS TACHYCARDIA RIGHT BUNDLE BRANCH BLOCK ??[120+ ms QRS DURATION, UPRIGHT V1, 40+ ms S IN I/aVL/V4/V5/V6] ABNORMAL ECG P-R Interval 173 ms QRS Interval 127 ms QT Interval 395 ms QTC Interval 458 ms P [place] 57 QRS [place] 34 T Wave [place] 43 Narrative Procedure Note Vineet Díaz MD - 11/05/2023 IMPRESSION SINUS TACHYCARDIA RIGHT BUNDLE BRANCH BLOCK [120+ ms QRS DURATION, UPRIGHT V1, 40+ ms S INI/aVL/V4/V5/V6] ABNORMAL ECG P-R Interval 173 ms QRS Interval 127 ms QT Interval 395 ms QTC Interval 458 ms P [place] 57 QRS [place] 34 T Wave [place] 43 Dvein Dougherty MD EKG [facility] [place] CVIS EKG ORDERS * CT SPINE LUMBAR NO IV CON (11/04/2023 11:05 PM BRICK MASON) Anatomical Region Laterality Modality Lumbar Spine Computed Tomogra phy 11/04/2023 11:2 3 PM BRICK MASON Impressions 11/05/2023 9:22 AM BRICK MASON Impression: 1. No suspected acute fracture or dislocation of the thoracic or lumbar spine. ?? 2. [id number] lumbar spondylosis without suspected high-grade spinal canal or neural foraminal narrowing. I have personally reviewed the image(s) and initial interpretation, and I agree with the findings as documented by the resident/fellow. Reading Radiologist: Ford Fernández Resident: Laith Berkowitz Narrative 11/05/2023 9:22 AM BRICK MASON Exam: Thoracic and Lumbar Spine CT Reconstructions, [...] dislocation of the thoracic or lumbarspine. 2. [id number] lumbar spondylosis without suspected high-grade spinalcanal or neural foraminal narrowing. I have personally reviewed the image(s) and initial interpretation, and Iagree with the findings as documented by the resident/fellow. Reading Radiologist: Ford Fernández Resident: Laith Berkowitz Devin Dougherty MD RAD CT NEURO * CT SPINE THORACIC NO IV CON (11/04/2023 11:05 PM BRICK MASON) Anatomical Region Laterality Modality Thoracic Spine Computed Tomogra phy 11/04/2023 11:2 3 PM BRICK [facility]ON Impressions 11/05/2023 9:22 AM BRICK MASON Impression: 1. No suspected acute fracture or dislocation of the thoracic or lumbar spine. ?? 2. [id number]-[id number] lumbar spondylosis without suspected high-grade spinal canal or neural foraminal narrowing. I have personally reviewed the image(s) and initial interpretation, and I agree with the findings as documented by the resident/fellow. Reading Radiologist: Ford Fernández Resident: Laith Berkowitz Narrative 11/05/2023 9:22 AM BRICK [facility]ON Exam: Thoracic and Lumbar Spine CT Reconstructions, [...] dislocation of the thoracic or lumbarspine. 2. Ayhk-ua-jmqyutuw lumbar spondylosis without suspected high-grade spinalcanal or neural foraminal narrowing. I have personally reviewed the image(s) and initial interpretation, and Iagree with the findings as documented by the resident/fellow. Reading Radiologist: Ford Fernández Resident: Laith Berkowitz Devin Dougherty MD RAD CT NEURO * CT CHEST/ABD/PELVIS W/IV CONT (11/04/2023 11:05 PM BRICK MASON) Anatomical Region Laterality Modality Chest Computed Tomogra phy 11/04/2023 11:2 9 PM BR[facility]ON Impressions 11/05/2023 6:33 AM BRICK MASON Impression: 1. No acute traumatic sequelae in [...] Reading Resident: Laith Berkowitz 11/05/2023 6:33 AM BRICK MASON Comparison: None Indication: Trauma (STAB) ?? Technique: [...] CERVICAL NO IV CON (11/04/2023 11:05 PM BRICK MASON) Anatomical Region Laterality Modality Cervical Spine Computed Tomogra phy 11/04/2023 11:2 0 PM BRICK [facility]ON Impressions 11/05/2023 8:27 AM BRICK MASON Impression: ?? 1. No acute fracture or traumatic subluxation of the cervical vertebrae. 2. Mild degenerative changes of the cervical spine without high-grade spinal canal or neural foraminal narrowing. I have personally reviewed the image(s) and initial interpretation, and I agree with the findings as documented by the resident/fellow. Reading Radiologist: Ford Fernández Resident: Laith Berkowitz Narrative 11/05/2023 8:27 AM BRICK [facility]ON Exam: Cervical spine CT without contrast, 11/04/2023 [...] spinal canal narrowing. C5-6: Mild left and vuee-rh-govnyifu right neural foraminal narrowing. Borderline mild spinal [...] spinal canal narrowing. C5-6: Mild left and btce-jd-[id number] right neural foraminal narrowing.Borderline mild spinal canal [...] HEAD NO IV CONTRAST (11/04/2023 11:05 PM BRICK MASON) Anatomical Region Laterality Modality Skull Computed Tomogra phy 11/04/2023 11:1 2 PM BRICK [facility]ON Impressions 11/05/2023 10:23 AM BRICK MASON Impression: 1. Thin subdural hemorrhage, measuring up [...] Fernández Resident: Laith Berkowitz 11/05/2023 10:23 AM BRICK MASON Exam: Head CT without contrast, 11/05/2023 Indication: [...] VIEW AP OR PA* (11/04/2023 10:57 PM BRICK MASON) Anatomical Region Laterality Modality Chest Computed Radiogr aphy 11/04/2023 11:0 0 PM BRICK [facility]ON Impressions 11/05/2023 6:18 AM BRICK MASON Impression: No acute cardiopulmonary findings. I have personally reviewed the image(s) and initial interpretation, and I agree with the findings as documented by the resident/fellow. Reading Radiologist: Scott Porras Resident: Laith Berkowitz Narrative 11/05/2023 6:18 AM BR[facility]ON Technique: XR CHEST 1 VIEW AP OR [...] HEMOGLOBIN TOTAL (ED ONLY) (11/04/2023 10:48 PM BRICK MASON) Hgb 10.3(L) 11.5 - 15.7 g/dL [facility] Blood 11/04/2023 10:4 8 PM BRICK MASON 11/04/2023 10:49 PM BRICK MASON Devin Dougherty MD LABORATORY [facility] [address] [address] * (ABNORMAL) ED CHEMISTRY LABS(NA,K,CL,CO2,GLU,CREAT,CA-IONIZED,ANION GAP) (11/04/2023 10:48 PM BRICK MASON) Sodium 144 135 - 148 mEq/L [facility] Chloride 106 92 - 108 mEq/L [facility] AnGap 11 8 - 16 mEq/L [facility] Glucose 234(H) 70 - 100 mg/dL [facility] ICA, Actual 4.52 4.40 - 5.20 mg/dL [facility] ICA, pH Corrected 4.51 4.40 - 5.20 mg/dL [facility] Creatinine 0.81 0.50 - 1.00 mg/dL [facility] BICARB 27(H) 22 - 26 mEq/L [facility] eGFR (2020 CKD-EPI) 73 >=60 ml/min/1.7 3m2 [facility] Comment: The estimated glomerular filtration rate (eGFR) was calculated using the CKD-EPI 2020 creatinine equation, which does not include race as a factor. This equation is validated in individuals 18 years of age and older, and eGFR is normalized to a body surface area of 1.73m^2. Potassium 2.8(AA) 3.5 - 5.3 mEq/L [facility] Comment:Critcal Result Low Blood 11/04/2023 10:4 8 PM BRICK MASON 11/04/2023 10:49 PM BRICK MASON Narrative [facility] - 11/04/2023 10:55 PM BRICK MASON Critical value for Potassium called to and read back by Rafa Hutchins RN in ??EDSTAB 2 at 11/04/2023 22:55:31 BRICK MASON by Eleni Spring MLS. Devin Dougherty MD LABORATORY Performing Organization Address [facility] Co de Phone Number [facility] [address] [address] * (ABNORMAL) ANTI XA HEPARIN UNFRACTIONATED (11/04/2023 10:45 PM BRICK MASON) Anti XA Hep U <0.04(L) 0.30 - 0.70 IU/mL [facility] Blood 11/04/2023 10:4 5 PM BRICK MASON 11/04/2023 11:05 PM BRICK MASON Devin Dougherty MD LABORATORY Performing Organization Address [facility] Co de Phone Number [facility] [address] [phone] * EXTRA TUBE - SST (11/04/2023 10:45 PM BRICK MASON) SST TUBE Stored [facility] Comment:SST tubes (Serum Sep arator) are stored in the lab for 3 days from the collection date. Blood 11/04/2023 10:4 5 PM BRICK MASON 11/04/2023 10:50 PM BRICK MASON Devin Dougherty MD LABORATORY Performing Organization Address [facility] Co de Phone Number [facility] [address] [address] * EXTRA TUBE - LIGHT GREEN (11/04/2023 10:45 PM BRICK MASON) Pathologist [facility] LIGHT GREEN TUBE Stored [facility] Comment:Green tubes ([place]s Heparin) are stored in the lab for 3 days from the collection date. Blood 11/04/2023 10:4 5 PM BRICK MASON 11/04/2023 10:50 PM BRICK MASON Devin Dougherty MD LABORATORY Performing Organization Address City/[facility]/ZIP Co de Phone Number [facility] [address] [address] * HS TROPONIN (11/04/2023 10:45 PM BRICK MASON) [facility] HS Troponin I 10 <=14 ng/L [facility] Blood 11/04/2023 10:4 5 PM BRICK MASON 11/04/2023 11:05 PM BRICK MASON Narrative [facility] - 11/04/2023 11:36 PM BRICK MASON First Occurrence of the Troponin order is to be drawn Stat by Nursing staff on the unit. Devin Dougherty MD LABORATORY Performing Organization Address [facility] Co de Phone Number [address] [address] * (ABNORMAL) PTT (APTT) (11/04/2023 10:45 PM BRICK MASON) [facility] APTT 22.9(L) 25.0 - 37.0 sec [facility] Blood 11/04/2023 10:4 5 PM BRICK MASON 11/04/2023 11:05 PM BRICK MASON Devin Dougherty MD LABORATORY Performing Organization Address [facility] Co de Phone Number [address] [address] * ED INR (11/04/2023 10:45 PM BRICK MASON) Pathologist [facility] ED INR 1.0 0.8 - 1.1 [facility] Comment: Warfarin Therapeutic Range: Standard Intensity: 2.0 - 3.0 High Intensity: 2.5 - 3.5 Blood 11/04/2023 10:4 5 PM BRICK MASON 11/04/2023 10:48 PM BRICK MASON Devin Dougherty MD LABORATORY [facility] [address] [address] * PRECAUTIONARY TUBE (11/04/2023 10:45 PM BRICK MASON) Prec Tube Precautionary Blood Bank Specimen Received. [facility] Blood 11/04/2023 10:4 5 PM BRICK MASON 11/04/2023 10:52 PM BRICK MASON Devin Dougherty MD LAB TRANSFUSION SER VICES Performing Organization Address [facility] Co de Phone Number [address] [address] * (ABNORMAL) LACTATE (LACTIC ACID) (11/04/2023 10:45 PM BRICK MASON) Lactate 2.7(H) 0.7 - 2.1 mmol/L [facility] Blood 11/04/2023 10:4 5 PM BRICK MASON 11/04/2023 10:50 PM BRICK MASON Narrative [facility] - 11/04/2023 10:50 PM BRICK MASON Send specimen on ice! Devin Dougherty MD LABORATORY Performing Organization Address [facility] Co de Phone Number [facility] [address] [address] * FIBRINOGEN (11/04/2023 10:45 PM BRICK MASON) Fibrinogen 288 200 - 400 mg/dL [facility] Blood 11/04/2023 10:4 5 PM BRICK MASON 11/04/2023 11:05 PM BRICK MASON Devin Dougherty MD LABORATORY Performing Organization Address City/[facility]/ZIP Co de Phone Number [facility] [address] [address] * (ABNORMAL) CBC WITH PLTS/AUTO DIFF (11/04/2023 10:45 PM BRICK MASON) WBC 9.42 4.00 - 10.00 k/cmm [facility] RBC 3.86(L) 3.90 - 5.20 m/cmm [facility] Hgb 9.8(L) 11.5 - 15.7 g/dL [facility] Hematocrit 31.8(L) 34.0 - 45.0 % [facility] MCV 82.4 80.0 - 100.0 fL [facility] MCH 25.4 25.0 - 32.0 pg [facility] MCHC 30.8(L) 31.0 - 36.0 g/dL [facility] RDW 15.3(H) 11.5 - 14.5 % [facility] Plt 292 150 - 400 k/cmm [facility] MPV 11.1 6.5 - 12.5 fL [facility] Automated Abs Neutrophil 5.80 1.70 - 6.50 k/cmm [facility] Comment:Preliminary ANC, Fin al Result to Follow Abs Immature Granulocyte 0.07 0.00 - 0.09 k/cmm [facility] Comment:The Immature Granulo cyte Absolute count contains metamyelocytes and myelocytes. Abs Neutrophil 5.80 1.70 - 6.50 k/cmm [facility] Abs Lymphocyte 2.33 0.80 - 4.00 k/cmm [facility] Abs Monocyte 0.88 0.20 - 1.00 k/cmm [facility] Abs Eosinophil 0.27 0.00 - 0.60 k/cmm [facility] Abs Basophil 0.07 0.00 - 0.20 k/cmm [facility] Blood 11/04/2023 10:4 5 PM BRICK MASON 11/04/2023 11:05 PM BRICK MASON Devin Dougherty MD LABORATORY [facility] [address] [place] [phone] * (ABNORMAL) BLOOD GASES (11/04/2023 10:45 PM BRICK MASON) Pathologist [facility] PH Jalen 7.39 7.32 - 7.42 [facility] PCO2 Jalen 45 41 - 51 mmHG [facility] PO2 Jalen 41(H) 25 - 40 mmHG [facility] Bicarb Jalen 27 24 - 28 mEq/L [facility] O2 Sat Jalen 69 % [facility] Base Exc Jalen 1.4 -10.0 - 2.0 mEq/L [facility] Blood Venous 11/04/2023 10:4 5 PM BRICK [facility]ON 11/04/2023 10:50 PM BRICK MASON Devin Dougherty MD LABORATORY [facility] [address] [address] * ED US CRITICAL CARE (11/04/2023 10:40 PM BRICK MASON) Anatomical Region Laterality Modality Ultrasound Narrative 11/04/2023 11:28 PM BRICK MASON ED Trauma eFAST Ultrasound Indications: Suspicion of [...] Primary Fall, initial encounter SDH (subdural hematoma) ([facility]) Subdural hemorrhage SAH (subarachnoid hemorrhage) ([facility]) Subarachnoid hemorrhage Traumatic brain injury with loss of consciousness, initial encounter ([facility]) documented in this encounter Admitting Diagnoses Diagnosis Fall, initial encounter documented in this encounter Administered Medications Inactive Administered Medications - up to 3 most recent administrations Medication Order MAR Action Action Date Dose Rate Site acetaminophen (OFIRMEV) 10 mg/mL IV 1,000 mg 1,000 mg, Intravenous, Q6H, Administer over 15 Minutes, First dose on Sun11/05/23 at 0255, Until Discontinued New Bag 11/05/2023 4:19 AM BRICK MASON 1,000 mg 400 mL /hr acetaminophen tablet 650 mg 650 mg, Oral, Q6H PRN, Starting on Sun11/05/23 at 0859, Until Sun11/16/23 at 1221, Mild Pain (Use First) Given 11/12/2023 2:59 AM BRICK [facility]ON 650 mg Given 11/10/2023 3:29 PM BRICK MASON 650 mg Given 11/10/2023 9:23 AM BRICK MASON 650 mg allopurinol (ZYLOPRIM) half tablet 50 mg 50 mg, Oral, DAILY, First dose on Sun11/08/23 at 0930, Until Discontinued Given 11/16/2023 7:33 AM BRICK MASON 50 mg Given 11/15/2023 7:59 AM BRICK MASON 50 mg Given 11/14/2023 8:15 AM BRICK MASON 50 mg amLODIPine (NORVASC) tablet 5 mg 5 mg, Oral, DAILY, First dose on Sun11/12/23 at 1045, Until Discontinued Given 11/16/2023 7:33 AM BRICK MASON 5 mg Given 11/15/2023 8:00 AM BRICK MASON 5 mg Given 11/14/2023 8:14 AM BRICK MASON 5 mg bisacodyl (DULCOLAX) suppository 10 mg 10 mg, Rectal, ONE TIME-NOW, 1 dose, On Sun11/14/23 at 0910 Given 11/14/2023 10:10 AM BRICK MASON 10 mg carvedilol (COREG) tablet 12.5 mg 12.5 mg, Oral, BID, First dose on Sun11/05/23 at 2000, Until Discontinued Given 11/06/2023 8:03 PM BRICK MASON 12.5 mg Given 11/06/2023 8:50 AM BRICK MASON 12.5 mg Given 11/05/2023 8:04 PM BRICK MASON 12.5 mg carvedilol (COREG) tablet 12.5 mg 12.5 mg, Oral, BID, First dose (after last modification) on Sun11/07/23 at 2000, Until Discontinued Given 11/09/2023 9:04 AM BRICK MASON 12.5 mg Given 11/08/2023 7:48 PM BRICK MASON 12.5 mg Given 11/08/2023 7:53 AM BRICK MASON 12.5 mg carvedilol (COREG) tablet 6.25 mg 6.25 mg, Oral, BID, First dose (after last modification) on Sun11/09/23 at 2000, Until Discontinued Given 11/16/2023 7:34 AM BRICK MASON 6.25 mg Given 11/15/2023 9:11 PM BRICK MASON 6.25 mg Given 11/15/2023 8:00 AM BRICK MASON 6.25 mg chlorthaLIDONE (HYGROTON) tablet 25 mg 25 mg, Oral, DAILY, First dose (after last reorder) on Sun11/06/23 at 1100, Until Discontinued Given 11/06/2023 2:55 PM BRICK MASON 25 mg chlorthaLIDONE (HYGROTON) tablet 25 mg 25 mg, Oral, DAILY, First dose (after last modification) on Sun11/08/23 at 0800, Until Discontinued Given 11/16/2023 7:33 AM BRICK MASON 25 mg Given 11/15/2023 7:59 AM BRICK MASON 25 mg Given 11/14/2023 8:15 AM BRICK MASON 25 mg clevidipine (CLEVIPREX) 50 mg in 100 mL emulsion 0-21 mg/hr (0-42 mL/hr), Start infusion at (mg/hr): 2, Titrate to: SBP (mmHg), of: 140, Intravenous, CONTINUOUS, Starting on Sun11/04/23 at 2320, Until Sun11/06/23 at 0846 Rate changed 11/06/2023 5:34 AM BRICK MASON 8 mg/hr 16 mL/hr New Bag 11/06/2023 4:49 AM BRICK MASON 6 mg/hr 12 mL/hr Rate changed 11/06/2023 1:58 AM BRICK MASON 6 mg/hr 12 mL/hr clevidipine (CLEVIPREX) 50 mg in 100 mL emulsion 0-21 mg/hr (0-42 mL/hr), Start infusion at (mg/hr): 1, Titrate to: SBP (mmHg), of: 140, Intravenous, CONTINUOUS, Starting on Sun11/05/23 at 0120, Until Sun11/05/23 at 0246 New Bag 11/05/2023 1:46 AM BRICK MASON 21 mg/hr 42 mL/hr clevidipine (CLEVIPREX) 50 mg in 100 mL emulsion 0-21 mg/hr (0-42 mL/hr), Start infusion at (mg/hr): 2, Titrate to: SBP (mmHg), of: 160, Intravenous, CONTINUOUS, Starting on Sun11/06/23 at 0905, Until Sun11/07/23 at 0711 Rate changed 11/06/2023 4:58 PM BRICK MASON 2 mg/hr 4 mL/hr Restarted 11/06/2023 4:50 PM BRICK MASON 3 mg/hr 6 mL/hr Rate changed 11/06/2023 2:56 PM BRICK MASON 3 mg/hr 6 mL/hr DC MED REC [...] 0905, Until Discontinued Given 11/16/2023 7:33 AM BRICK MASON 250 mg Given 11/15/2023 8:58 PM BRICK MASON 250 mg Given 11/15/2023 7:59 AM BRICK MASON 250 mg enoxaparin (LOVENOX) 30 mg/0.3 mL injection 30 mg 30 mg, Subcutaneous, Q12H, First dose on Sun11/07/23 at 2000, Until Discontinued Given 11/15/2023 8:57 PM BRICK MASON 30 mg Abdominal Tissue Given 11/15/2023 8:02 AM BRICK MASON 30 mg Le ft Upper Arm Given 11/14/2023 8:20 PM BRICK MASON 30 mg Ri ght Upper Arm hydrALAZINE (APRESOLINE) 20 mg/mL injection 10 mg 10 mg, IV Push, Q4H PRN, Starting on Sun11/07/23 at 1004, Until Sun11/08/23 at 0906, SBP greater than 160 mmHg Given 11/07/2023 5:01 PM BRICK MASON 10 mg hydrALAZINE (APRESOLINE) 20 mg/mL injection 20 mg 20 mg, IV Push, ONE TIME-NOW, 1 dose, On Sun11/07/23 at 1005 Given 11/07/2023 10:29 AM BRICK MASON 20 mg insulin ASPART (NovoLOG) FlexPen Insulin [...] 0120, Until Discontinued Given 11/05/2023 5:53 PM BRICK MASON 1 UNITS Abdominal Tissue Given 11/05/2023 12:40 PM BRICK MASON 2 UNITS L eft Upper Arm Given 11/05/2023 8:00 AM BRICK MASON 1 UNITS Le ft Upper Arm insulin [...] 1630, Until Discontinued Given 11/13/2023 4:35 PM BRICK MASON 1 UNITS Right Upper Arm Given 11/13/2023 11:56 AM BRICK MASON 1 UNITS L eft Upper Quadrant Abdomen Given 11/09/2023 5:47 PM BRICK MASON 1,747 UNITS A bdominal Tissue insulin ASPART [...] Sun11/04/23 at 2310 Given 11/04/2023 11:07 PM BRICK MASON 120 mL Left Arm iohexol (OMNIPAQUE) 350 mg/mL injection IV Push, RAD ONE TIME AUTO ACKNOWLEDGE, 1 dose, On Sun11/05/23 at 0010 Given 11/05/2023 12:09 AM BRICK MASON 60 mL labetalol (NORMODYNE;TRANDATE) 5 mg/mL injection 10 mg 10 mg, IV Push, Q1H PRN, Starting on Sun11/07/23 at 1004, Until Sun11/08/23 at 0906, SBP greater than 160 mmHg Given 11/08/2023 5:53 AM BRICK MASON 10 mg Given 11/08/2023 4:16 AM BRICK MASON 10 mg Given 11/08/2023 1:27 AM BRICK MASON 10 mg lactated ringers infusion at 75 mL/hr, Intravenous, CONTINUOUS, Starting on Sun11/07/23 at 1055, Until Sun11/07/23 at 1625 Rate changed 11/07/2023 11:53 AM BRICK MASON 75 mL/hr New Bag 11/07/2023 11:23 AM BRICK MASON 110 mL/hr levETIRAcetam (KEPPRA) 750 mg in NaCl 0.9% 100 mL IVPB 750 mg, Intravenous, Q12H, Administer over 15 Minutes, First dose on Sun11/07/23 at 1400, Last dose on Sun11/12/23 at 0800 New Bag 11/08/2023 8:02 AM BRICK MASON 750 mg 430 mL/hr New Bag 11/07/2023 3:10 PM BRICK MASON 750 mg 430 mL/hr levETIRAcetam (KEPPRA) tablet 1,000 mg 1,000 mg, Oral, BID, 11 doses, First dose on Sun11/06/23 at 1999, Last dose on Sun11/11/23 at 1999 Given 11/06/2023 8:03 PM BRICK MASON 1,000 mg levETIRAcetam (KEPPRA) tablet 750 mg 750 mg, Oral, BID, 7 doses, First dose on Sun11/08/23 at 1999, Last dose on Sun11/11/23 at 1999 Given 11/11/2023 7:57 PM BRICK MASON 750 mg Given 11/11/2023 8:55 AM BRICK MASON 750 mg Given 11/10/2023 8:58 PM BRICK MASON 750 mg levETIRAcetam in NaCl (KEPPRA) 1000 mg/100 mL IVPB 1,000 mg 1,000 mg, Intravenous, Q12H, Administer over 15 Minutes, First dose on Sun11/05/23 at 0800, Last dose on Sun11/11/23 at 0800 New Bag 11/05/2023 8:04 PM BRICK MASON 1,000 mg New Bag 11/05/2023 8:08 AM BRICK MASON 1,000 mg levETIRAcetam in NaCl (KEPPRA) 1000 mg/100 mL IVPB 2,000 mg 2,000 mg, Intravenous, ONE TIME, Administer over 15 Minutes, On Sun11/04/23 at 2345 New Bag 11/04/2023 11:40 PM BRICK MASON 2,000 mg losartan (COZAAR) tablet 25 mg 25 mg, Oral, DAILY, First dose on Sun11/05/23 at 0900, Until Discontinued Given 11/06/2023 8:50 AM BRICK MASON 25 mg Given 11/05/2023 11:13 AM BRICK MASON 25 mg losartan (COZAAR) tablet 25 mg 25 mg, Oral, BID, First dose (after last modification) on Sun11/13/23 at 0800, Until Discontinued Given 11/16/2023 7:33 AM BRICK MASON 25 mg Given 11/15/2023 8:58 PM BRICK MASON 25 mg Given 11/15/2023 8:00 AM BRICK MASON 25 mg losartan (COZAAR) tablet 50 mg 50 mg, Oral, DAILY, First dose (after last modification) on Sun11/08/23 at 0800, Until Discontinued Given 11/12/2023 8:47 AM BRICK MASON 50 mg Given 11/11/2023 8:55 AM BRICK MASON 50 mg Given 11/10/2023 9:23 AM BRICK MASON 50 mg magnesium sulfate 2 g IVPB 2 g, Intravenous, ONE TIME, Administer over 1 Hours, On Sun11/05/23 at 0220 New Bag 11/05/2023 2:59 AM BRICK MASON 2 g 50 mL/hr magnesium sulfate 2 g IVPB 2 g, Intravenous, ONE TIME, Administer over 1 Hours, On Sun11/05/23 at 0620 New Bag 11/05/2023 8:08 AM BRICK MASON 2 g 50 mL/hr melatonin tablet 3 mg 3 mg, Oral, BEDTIME, First dose on Sun11/08/23 at 2000, Until Discontinued Given 11/15/2023 8:57 PM BRICK MASON 3 mg Given 11/14/2023 8:17 PM BRICK MASON 3 mg Given 11/13/2023 8:41 PM BRICK MASON 3 mg metFORMIN (GLUCOPHAGE) tablet 500 mg 500 mg, Oral, BID, First dose on Sun11/15/23 at 1010, Until Discontinued Given 11/16/2023 7:33 AM BRICK MASON 500 mg Given 11/15/2023 8:57 PM BRICK MASON 500 mg Given 11/15/2023 12:47 PM BRICK MASON 500 mg NaCl 0.9% infusion at 100 mL/hr, Intravenous, CONTINUOUS, Starting on Sun11/05/23 at 0120, Until Sun11/05/23 at 1705 Infusing 11/05/2023 12:00 PM BRICK MASON 100 mL/hr Infusing 11/05/2023 11:00 AM BRICK MASON 100 mL/hr Infusing 11/05/2023 10:00 AM BRICK MASON 100 mL/hr naproxen (NAPROSYN) tablet 500 mg 500 mg, Oral, BID, 19 doses, First dose on Sun11/08/23 at 0845, Last dose on Sun11/17/23 at 2000 Given 11/16/2023 7:33 AM BRICK MASON 500 mg Given 11/15/2023 8:57 PM BRICK MASON 500 mg Given 11/15/2023 7:58 AM BRICK MASON 500 mg OLANZapine (ZyPREXA ZYDIS) disintegrating tablet 2.5 mg 2.5 mg, Oral, BEDTIME, First dose (after last modification) on Sun11/15/23 at 0230, Until Discontinued Given 11/15/2023 9:01 PM BRICK MASON 2.5 mg Given 11/15/2023 3:27 AM BRICK MASON 2.5 mg OLANZapine (ZyPREXA) tablet 10 mg 10 mg, Oral, BEDTIME PRN, Starting on Sun11/07/23 at 0048, Until Sun11/07/23 at 0836, Agitation Given 11/07/2023 1:46 AM BRICK MASON 10 mg ondansetron (ZOFRAN ODT) disintegrating tablet 4 mg 4 mg, Oral, TID PRN, Starting on Sun11/06/23 at 1020, Until Sun11/16/23 at 1221, Nausea/Vomiting (Use First) ondansetron (ZOFRAN) 4 mg/2 mL injection 4 mg 4 mg, IV Push, ONE TIME, 1 dose, On Sun11/06/23 at 1025 Given 11/06/2023 10:31 AM BRICK MASON 4 mg ondansetron (ZOFRAN) 4 mg/2 mL injection 1 dose, Starting on Sun11/06/23 at 1024, Until Sun11/06/23 at 1031 polyethylene glycol 3350 (MIRALAX;GLYCOLAX) packet 17 g 17 g, Oral, DAILY, First dose on Sun11/06/23 at 0800, Until Discontinued Given 11/13/2023 8:24 AM BRICK MASON 17 g Given 11/12/2023 8:47 AM BRICK MASON 17 g Given 11/11/2023 8:56 AM BRICK MASON 17 g polyethylene glycol 3350 (MIRALAX;GLYCOLAX) packet 17 g 17 g, Oral, BID, First dose (after last modification) on Sun11/14/23 at 0800, Until Discontinued Given 11/15/2023 8:57 PM BRICK MASON 17 g Given 11/15/2023 8:00 AM BRICK MASON 17 g Given 11/14/2023 8:19 PM BRICK MASON 17 g potassium chloride (K-DUR) tablet 40 mEq 40 mEq, Oral, ONE TIME, 1 dose, On Sun11/09/23 at 0735 Given 11/09/2023 9:43 AM BRICK [facility]ON 40 mEq potassium chloride (K-DUR) tablet 40 mEq 40 mEq, Oral, ONE TIME-NOW, 1 dose, On Sun11/13/23 at 1025 Given 11/13/2023 10:51 AM BRICK MASON 40 mEq potassium chloride (K-DUR) tablet 40 mEq 40 mEq, Oral, DAILY, First dose on Sun11/14/23 at 0800, Until Discontinued Given 11/16/2023 7:34 AM BRICK [facility]ON 40 mEq Given 11/15/2023 7:58 AM BRICK [facility]ON 40 mEq Given 11/14/2023 8:15 AM BRICK MASON 40 mEq potassium chloride (K-CANDIDO) 20 mEq 20 mEq, Oral, ONE TIME, 1 dose, On Sun11/05/23 at 1955 Given 11/05/2023 10:32 PM BRICK MASON 20 mEq potassium chloride (K-CANDIDO) powder 20 mEq 20 mEq, Oral, ONE TIME, 1 dose, On Sun11/13/23 at 1540 Given 11/13/2023 4:35 PM BRICK MASON 20 mEq potassium chloride IVPB 10 mEq 10 mEq, Intravenous, ONE TIME, Administer over 60 Minutes, On Sun11/04/23 at 2355 New Bag 11/05/2023 12:12 AM [facility] 10 m Eq potassium chloride IVPB 10 mEq 10 mEq, Intravenous, Q1H, Administer over 60 Minutes, First dose on Sun11/05/23 at 0220, Last dose on Sun11/05/23 at 0320 New Bag 11/05/2023 4:19 AM [facility] 10 mEq New Bag 11/05/2023 2:59 AM [facility] 10 mEq potassium chloride IVPB 10 mEq 10 mEq, Intravenous, Q1H, Administer over 60 Minutes, First dose on Sun11/05/23 at 0620, Last dose on Sun11/05/23 at 0720 New Bag 11/05/2023 8:04 AM [facility] 10 mEq rosuvastatin (CRESTOR) tablet 20 mg 20 mg, Oral, DAILY, First dose on Sun11/05/23 at 0900, Until Discontinued Given 11/16/2023 7:33 AM [facility] 20 mg Given 11/15/2023 7:58 AM [facility] 20 mg Given 11/14/2023 8:15 AM [facility] 20 mg sennosides-docusate sodium (STOOL SOFTENER/LAXATIVE) 8.6-50 mg tablet 1 tablet 1 tablet, Oral, BID, First dose on Sun11/06/23 at 0800, Until Discontinued Given 11/07/2023 7:54 PM [facility] 1 tablet Given 11/06/2023 8:03 PM [facility] 1 tablet sennosides-docusate sodium (STOOL SOFTENER/LAXATIVE) 8.6-50 mg tablet 1 tablet 1 tablet, Oral, BID, First dose (after last modification) on Sun11/14/23 at 0800, Until Discontinued Given 11/16/2023 7:33 AM [facility] 1 tablet Given 11/15/2023 8:57 PM [facility] 1 tablet Given 11/15/2023 7:59 AM [facility] 1 tablet venlafaxine (EFFEXOR XR) capsule 225 mg 225 mg, Oral, DAILY, First dose on Sun11/06/23 at 1000, Until Discontinued Given 11/16/2023 7:32 AM [facility] 225 mg Given 11/15/2023 7:58 AM [facility] 225 mg Given 11/14/2023 8:14 AM [facility] 225 mg VTE Anti Xa Monitoring Does not apply, PROTOCOL, Starting on Sun11/07/23 at 1354, Until Sun11/16/23 at 1221 documented in this encounter Active and Recently Administered Medications Times are shown in [facility]. Scheduled Medication Order 11/14/2023 11/15/2023 11/16/2023 allopurinol [...] pm documented in this encounter Care Teams Acid Blower Relationship Specialty Start Date End Date Eloise Reeves DO [address] [place] [address] PCP - General Family Medicine 11/06/23 documented as of this encounter
--- OUTSIDE RECORDS SUMMARY | 2023-12-11 20:03 | XMS_ITS | Encounter Summary ---
Author Name Unknown Organization [facility] Address [address] [place] [id number] Phone Care Team Providers Care Lime Filter Operator Name Role Phone Eloise Reeves DO [...] Coronavirus/COVID-19? No / Unsure 11/04/2023 10:48 PM CHILD LIFE ASSISTANT documented as of this encounter Plan of Treatment Not on file documented as of this encounter Procedures Procedure Name Priority Date/Time Associated Diagnosis Comments TELEMETRY STRIPS 11/07/2023 7:31 PM CHILD LIFE ASSISTANT documented in this encounter Results * TELEMETRY STRIPS (11/07/2023 7:31 PM CHILD LIFE ASSISTANT) Narrative 11/07/2023 7:31 PM CHILD LIFE ASSISTANT Ordered by an unspecified provider. Provider Unknown RAD ECHO documented in this encounter Visit Diagnoses Not on filedocumented in this encounter Care Teams Lime Filter Operator Relationship Specialty Start Date End Date Eloise Reeves DO [address] [place] [address] PCP - General Family Medicine 11/06/23 documented as of this encounter
--- OUTSIDE RECORDS SUMMARY | 2023-12-11 20:03 | XMS_ITS | Encounter Summary ---
Author Name Unknown Organization [facility] Address [address] [place] [phone] Phone Care Team Providers Care Mattress Spring Encaser Name Role Phone Eloise Reeves DO Primary [...] No / Unsure 11/04/2023 10:48 PM AUTOMOBILE AND PROPERTY UNDERWRITER documented as of this encounter Plan of Treatment Not on file documented as of this encounter Procedures Procedure Name Priority Date/Time Associated Diagnosis Comments TELEMETRY STRIPS 11/08/2023 9:49 AM AUTOMOBILE AND PROPERTY UNDERWRITER documented in this encounter Results * TELEMETRY STRIPS (11/08/2023 9:49 AM AUTOMOBILE AND PROPERTY UNDERWRITER) Narrative 11/08/2023 9:49 AM AUTOMOBILE AND PROPERTY UNDERWRITER Ordered by an unspecified provider. Provider Unknown RAD ECHO documented in this encounter Visit Diagnoses Not on filedocumented in this encounter Care Teams Mattress Spring Encaser Relationship Specialty Start Date End Date Eloise Reeves DO [address] [place] [address] PCP - General Family Medicine 11/06/23 documented as of this encounter
--- OUTSIDE RECORDS SUMMARY | 2023-12-11 20:03 | XMS_ITS | Encounter Summary ---
Author Name Unknown Organization [facility] Address [address] [place] [phone] Phone Care Team Providers Care Headstart Teacher Name Role Phone Eloise Reeves DO Primary [...] Coronavirus/COVID-19? No / Unsure 11/04/2023 10:48 PM EXPRESSIVE THERAPIST documented as of this encounter Plan of Treatment Not on file documented as of this encounter Procedures Procedure Name Priority Date/Time Associated Diagnosis Comments TELEMETRY STRIPS 11/06/2023 8:49 AM EXPRESSIVE THERAPIST documented in this encounter Results * TELEMETRY STRIPS (11/06/2023 8:49 AM EXPRESSIVE THERAPIST) Narrative 11/06/2023 8:49 AM EXPRESSIVE THERAPIST Ordered by an unspecified provider. Provider Unknown RAD ECHO documented in this encounter Visit Diagnoses Not on filedocumented in this encounter Care Teams Headstart Teacher Relationship Specialty Start Date End Date Eloise Reeves DO [address] [place] [address] PCP - General Family Medicine 11/06/23 documented as of this encounter
--- OUTSIDE RECORDS SUMMARY | 2023-12-11 20:03 | XMS_ITS | Encounter Summary ---
Author Name Unknown Organization [facility] Address [address] [place] [phone] Phone Care Team Providers Care Lead Customer Service Representative Name Role Phone Eloise Reeves [...] Coronavirus/COVID-19? No / Unsure 11/04/2023 10:48 PM HYDRAULIC PRESS SERVICER documented as of this encounter Plan of Treatment Not on file documented as of this encounter Procedures Procedure Name Priority Date/Time Associated Diagnosis Comments TELEMETRY STRIPS 11/07/2023 9:29 AM HYDRAULIC PRESS SERVICER documented in this encounter Results * TELEMETRY STRIPS (11/07/2023 9:29 AM HYDRAULIC PRESS SERVICER) Narrative 11/07/2023 9:29 AM HYDRAULIC PRESS SERVICER Ordered by an unspecified provider. Provider Unknown RAD ECHO documented in this encounter Visit Diagnoses Not on filedocumented in this encounter Care Teams Lead Customer Service Representative Relationship Specialty Start Date End Date Eloise Reeves DO [address] [place] [address] PCP - General Family Medicine 11/06/23 documented as of this encounter
--- OUTSIDE RECORDS SUMMARY | 2023-12-11 20:03 | XMS_ITS | Clinical Summary ---
Author Name Unknown Organization [facility] [employer] [facility] Address [place], [place] [address] Care Team Providers Care Marine Insurance Claim Examiner Name Role Phone Eloise Reeves Primary Care Provider [phone] Allergies Active Allergy Reactions Criticality Noted Date [...] PVCs 10/20/2014 Breast cancer, left Overview: in [place], had mastectomy. No chemo or radiation Encounters Date Type Department Care Team Description 12/11/[address] [place] [address] Eloise Reeves DO Tremors 12/10/2023 Telephone Rust [address] [place] [address] Eloise Reeves DO Concerns (12/12/23) 11/29/2023 Telephone Rust [address] [place] [address] Eloise Reeves DO Appointment Request 11/22/2023 10:30 AM ASSEMBLY INSPECTOR Office Visit [address] [place] [address] [address] LICSW Failed Appointment 11/02/20[address] [place] [address] Eloise Reeves DO Results 11/01/2023 1:05 PM ASSEMBLY INSPECTOR Office Visit [address] [place] [address] Eloise Reeves DO Follow Up 11/01/2023 Orders Only [facility] [place] [address] Eloise Reeves DO <No scans attached> 11/01/2023 Travel 10/16/2023 10:30 AM ASSEMBLY INSPECTOR Office Visit [address] [place] [address] [address], [facility] Visit 10/16/2023 Travel 10/10/2023 Telephone [facility] [address] [facility] [place] [address] Twan Suresh MD Referral (Patient is ready to be scheduled. Referral consult to Neurology. ) 10/09/2023 1:05 PM ASSEMBLY INSPECTOR Office Visit [place] [address] [address] Eloise Reeves DO Follow Up; Tremors 10/09/2023 Telephone [facility] [address] [facility] [place] [address] Gacría Driscoll MD Error-please disregard 10/09/2023 Travel 10/04/2023 10:30 AM ASSEMBLY INSPECTOR Office Visit Rust [address] [facility] [place] [address] [address] LICSW Failed Appointment 09/28/2023 Telephone Rust [address] [facility] [place] [place] [address] lEoise Reeves DO Results 09/27/2023 Orders Only [facility] [address] Eloise Reeves DO <No scans attached> 09/26/2023 1:55 PM ASSEMBLY INSPECTOR Office Visit [facility] [address] [place] [place] [address] Eloise Reeves DO Dizziness (1 day); Nausea (1 day); Diarrhea (1 day); Urinary Problem (frequency) 09/26/2023 Travel 09/25/2023 Telephone [facility] [address] [place] [address] Eloise Reeves DO Appointment Request (FOLLOW UP BEFORE 11-01-2023) 09/17/2023 10:30 AM ASSEMBLY INSPECTOR Office Visit [address] [place] [address] [address], DEVICE PROCESSING ENGINEER [facility] Visit 09/17/2023 Travel 09/13/2023 Telephone [facility] [address] [place] [address] Eloise Reeves DO Results 09/13/2023 Orders Only [facility] [address] [place] [place] [address] Eloise Reeves DO <No scans attached> 09/12/2023 9:10 AM ASSEMBLY INSPECTOR Office Visit [facility] [address] [place] [address] Eloise Reeves, DO Diabetes 09/12/2023 Travel from [...] Comments Blood Pressure 157/79 11/01/2023 11:36 AM ASSEMBLY INSPECTOR Pulse 83 11/01/2023 11:36 AM ASSEMBLY INSPECTOR Temperature 37.1 ??C (98.8 ??F) 04/04/2022 12:51 PM C DT Respiratory Rate 16 08/22/2022 9:54 AM CDT Oxygen Saturation 96% 11/01/2023 11:36 AM ASSEMBLY INSPECTOR Inhaled Oxygen Concentration - - Weight 67.6 kg (149 lb) 11/01/2023 11:36 AM ASSEMBLY INSPECTOR Height 142.8 cm (4' 8.22) 01/02/2023 1:43 PM CS T Body Mass Index 33.14 01/02/2023 1:43 PM ASSEMBLY INSPECTOR Plan of Treatment Upcoming Encounters Date Type Department Care Team (Late st Contact Info) Description 12/12/2023 1:05 PM ASSEMBLY INSPECTOR Office Visit Rust [address] [place] [address] Eloise Reeves DO [address] [place] [address] Health Maintenance Due Date Last Done Comments [...] Diagnosis Comments CREATININE Routine 11/01/2023 12:37 PM ASSEMBLY INSPECTOR Gout of left foot, unspecified cause, unspecified chronicity POTASSIUM Routine 11/01/2023 12:37 PM ASSEMBLY INSPECTOR Hypokalemia URINALYSIS MICROSCOPIC Routine 09/26/2023 3:25 PM ASSEMBLY INSPECTOR Urinary frequency UA W/ SEDIMENT EXAM REFLEXED PER CRITERIA Routine 09/26/2023 3:25 PM ASSEMBLY INSPECTOR Urinary frequency BASIC METABOLIC PANEL Routine 09/26/2023 2:55 PM ASSEMBLY INSPECTOR HTN (hypertension) HEMOGLOBIN Routine 09/26/2023 2:55 PM ASSEMBLY INSPECTOR Anemia of unknown etiology SCAN CORRESP-LABORATORY RESULTS 09/12/2023 10:56 AM ASSEMBLY INSPECTOR SCAN CORRESP-IMAGING 09/12/2023 10:56 AM ASSEMBLY INSPECTOR SCAN CORRESP-IMAGING 09/12/2023 10:56 AM ASSEMBLY INSPECTOR SCAN CORRESP-IMAGING 09/12/2023 10:56 AM ASSEMBLY INSPECTOR VITAMIN B12 Add On 09/12/2023 9:30 AM ASSEMBLY INSPECTOR Hallucinations BASIC METABOLIC PANEL Add On 09/12/2023 9:30 AM ASSEMBLY INSPECTOR Hypertension IRON PLUS IRON BINDING CAP Add On 09/12/2023 9:30 AM ASSEMBLY INSPECTOR Anemia of unknown etiology FERRITIN Add On 09/12/2023 9:30 AM ASSEMBLY INSPECTOR Anemia of unknown etiology TSH WITH REFLEX Add On 09/12/2023 9:30 AM ASSEMBLY INSPECTOR Hallucinations Other fatigue HEMOGLOBIN Routine 09/12/2023 9:30 AM ASSEMBLY INSPECTOR Anemia of unknown etiology URIC ACID Routine 09/12/2023 9:30 AM ASSEMBLY INSPECTOR History of gout POTASSIUM Routine 09/12/2023 9:30 AM ASSEMBLY INSPECTOR Hypertension CREATININE Routine 09/12/2023 9:30 AM ASSEMBLY INSPECTOR Hypertension HEMOGLOBIN A1C Routine 09/12/2023 9:30 AM ASSEMBLY INSPECTOR Controlled type 2 diabetes mellitus without complication, without long-term current use of insulin (HC) from Last 3 Months Results * POTASSIUM (11/01/2023 12:37 PM ASSEMBLY INSPECTOR) Only the most recent of2 resultswithin the time period is included. POTASSIUM 3.5 3.5 - 5.1 mmol/L 11/01/2023 9:42 PM ASSEMBLY INSPECTOR [facility] Blood BLOOD SPECIMEN / Unknown Venipuncture / Unknown 11/01/2023 12:37 PM ASSEMBLY INSPECTOR 11/01/2023 12:39 PM ASSEMBLY INSPECTOR [place] Travel CHEMISTRY Performing Organization Address [facility] Co de Phone Number [facility] [address] [place] [address], * (ABNORMAL) CREATININE (11/01/2023 12:37 PM ASSEMBLY INSPECTOR) Only the most recent of2 resultswithin the time period is included. eGFR 73(L) >90 mL/min/1.7 3m2 11/01/2023 9:42 PM ASSEMBLY INSPECTOR [facility] Comment:As of 2022, eG FR is calculated by the CKD-EPI creatinine equation without race adjustment. ??eGFR can be influenced by muscle mass, exercise, and diet. ??The reported eGFR is an estimation only and is only applicable if the renal function is stable. CREATININE 0.81 0.50 - 0.90 mg/dL 11/01/2023 9:42 PM ASSEMBLY INSPECTOR [facility] Blood BLOOD SPECIMEN / Unknown Venipuncture / Unknown 11/01/2023 12:37 PM ASSEMBLY INSPECTOR 11/01/2023 12:39 PM ASSEMBLY INSPECTOR [place] Travel CHEMISTRY Performing Organization Address [facility] Co de Phone Number [facility] [address] [place], [place] [id number], [place] * URINALYSIS MICROSCOPIC (09/26/2023 3:25 PM ASSEMBLY INSPECTOR) RBC 0-2 0-2, None Seen /HPF 09/26/2023 3:35 PM ASSEMBLY INSPECTOR [facility] WBC 0-2 0-2, 3-5, None Seen /HPF 09/26/2023 3:35 PM ASSEMBLY INSPECTOR [facility] BACTERIA Few None Seen, Rare, Few Bacteria/H PF 09/26/2023 3:35 PM ASSEMBLY INSPECTOR [facility] EPITHELIAL CELLS Few None Seen, Few Epi/HPF 09/26/2023 3:35 PM ASSEMBLY INSPECTOR [facility] Mucus Present 09/26/2023 3:35 PM ASSEMBLY INSPECTOR [facility] HYALINE CASTS 0-2 0-2, 3-5 /LPF 09/26/2023 3:35 PM ASSEMBLY INSPECTOR [facility] Urine URINE SPECIMEN / Unknown Non-Blood / Unknown 09/26/2023 3:25 PM ASSEMBLY INSPECTOR 09/26/2023 3:25 PM ASSEMBLY INSPECTOR Narrative [facility] - 09/26/2023 3:35 PM ASSEMBLY INSPECTOR <1.5 ml. ??QNS for accurate microscopic exam. ??Microscopic done on unspun urine. Eloise Reeves DO URINE [facility] [address] [place] [address], [place] [phone] * (ABNORMAL) UA W/ SEDIMENT EXAM REFLEXED PER CRITERIA (09/26/2023 3:25 PM ASSEMBLY INSPECTOR) COLOR Yellow Yellow Color 09/26/2023 3:33 PM ASSEMBLY INSPECTOR [facility] CLARITY Clear Clear Clarity 09/26/2023 3:33 PM ASSEMBLY INSPECTOR [facility] SPECIFIC GRAVITY,URINE >=1.030(A) 1.010, 1.015, 1.020, 1.025 09/26/2023 3:33 PM ASSEMBLY INSPECTOR [facility] PH,URINE 5.5 6.0, 7.0, 8.0, 5.5, 6.5, 7.5, 8.5 09/26/2023 3:33 PM ASSEMBLY INSPECTOR [facility] UROBILINOGEN,QU ALITATIVE Normal Normal EU/dl 09/26/2023 3:33 PM ASSEMBLY INSPECTOR [facility] PROTEIN, URINE 30(A) Negative mg/dL 09/26/2023 3:33 PM ASSEMBLY INSPECTOR [facility] GLUCOSE, URINE Negative Negative mg/dL 09/26/2023 3:33 PM ASSEMBLY INSPECTOR [facility] KETONES,URINE 15(A) Negative mg/dL 09/26/2023 3:33 PM ASSEMBLY INSPECTOR [facility] BILIRUBIN,URINE Abnormal(A) Negative 09/26/20 3:33 PM ASSEMBLY INSPECTOR [facility] Comment:A variety of metabol ites and/or medications may result in a positive bilirubin result. Clinical correlation is recommended. OCCULT BLOOD,URINE Negative Negative 09/26/2023 3:33 PM ASSEMBLY INSPECTOR [facility] NITRITE Negative Negative 09/26/2023 3:33 PM ASSEMBLY INSPECTOR [facility] LEUKOCYTE ESTERASE Negative Negative 09/26/2023 3:33 PM ASSEMBLY INSPECTOR [facility] Urine URINE SPECIMEN / Unknown Non-Blood / Unknown 09/26/2023 3:25 PM ASSEMBLY INSPECTOR 09/26/2023 3:25 PM ASSEMBLY INSPECTOR Eloise Reeves DO URINE [facility] [address] [place] [address], * (ABNORMAL) HEMOGLOBIN (09/26/2023 2:55 PM ASSEMBLY INSPECTOR) Only the most recent of2 resultswithin the time period is included. HEMOGLOBIN 10.9(L) 12.0 - 16.0 g/dL 09/26/2023 3:04 PM ASSEMBLY INSPECTOR [facility] MCV 82 80 - 100 fL 09/26/2023 3:04 PM ASSEMBLY INSPECTOR [facility] Blood BLOOD SPECIMEN / Unknown Venipuncture / Unknown 09/26/2023 2:55 PM ASSEMBLY INSPECTOR 09/26/2023 2:56 PM ASSEMBLY INSPECTOR Eloise Reeves DO HEMATOLOGY [facility] [address] [facility] [place] [address], [place] [phone] * (ABNORMAL) BASIC METABOLIC PANEL (09/26/2023 2:55 PM ASSEMBLY INSPECTOR) Only the most recent of2 resultswithin the time period is included. SODIUM 140 136 - 145 mmol/L 09/26/2023 10:22 PM [facility] POTASSIUM 3.3(L) 3.5 - 5.1 mmol/L 09/26/2023 10:22 PM [facility] CHLORIDE 101 98 - 107 mmol/L 09/26/2023 10:22 PM [facility] CO2,TOTAL 26 22 - 29 mmol/L 09/26/2023 10:22 PM [facility] ANION GAP 13 5 - 18 09/26/2023 10:22 PM [facility] GLUCOSE 112(H) 70 - 99 mg/dL 09/26/2023 10:22 PM [facility] CALCIUM 9.7 8.8 - 10.2 mg/dL 09/26/2023 10:22 PM [facility] BUN 17 8 - 23 mg/dL 09/26/2023 10:22 PM [facility] CREATININE 1.08(H) 0.50 - 0.90 mg/dL 09/26/2023 10:22 PM [facility] BUN/CREAT RATIO 16 10 - 20 3 10:22 PM [facility] eGFR 52(L) >90 mL/min/1.7 3m2 09/26/2023 10:22 PM [facility] Comment:As of 2022, eG FR is calculated by the CKD-EPI creatinine equation without race adjustment. ??eGFR can be influenced by muscle mass, exercise, and diet. ??The reported eGFR is an estimation only and is only applicable if the renal function is stable. Blood BLOOD SPECIMEN / Unknown Venipuncture / Unknown 09/26/2023 2:55 PM ASSEMBLY INSPECTOR 09/26/2023 2:56 PM ASSEMBLY INSPECTOR Eloise Reeves DO CHEMISTRY Performing Organization Address [facility]/ZIP Co de Phone Number [facility] [address] [place] [address], [place] * SCAN CORRESP-LABORATORY RESULTS (09/12/2023 10:56 AM ASSEMBLY INSPECTOR) Narrative 09/12/2023 10:56 AM ASSEMBLY INSPECTOR Ordered by an unspecified provider. Other Clinical Staff OTHER * SCAN CORRESP-IMAGING (09/12/2023 10:56 AM ASSEMBLY INSPECTOR) Only the most recent of3 resultswithin the time period is included. Anatomical Region Laterality Modality Other Narrative 09/12/2023 10:56 AM ASSEMBLY INSPECTOR Ordered by an unspecified provider. Other Clinical Staff OTHER * TSH WITH REFLEX (09/12/2023 9:30 AM ASSEMBLY INSPECTOR) TSH 0.72 0.27 - 4.20 uIU/mL 09/12/2023 6:43 PM ASSEMBLY INSPECTOR [facility] Blood BLOOD SPECIMEN / Unknown Venipuncture / Unknown 09/12/2023 9:30 AM ASSEMBLY INSPECTOR 09/12/2023 9:33 AM ASSEMBLY INSPECTOR Narrative [facility] - 09/12/2023 6:43 PM ASSEMBLY INSPECTOR In Adults, TSH values between 5.00 and 10.00 uIU/ml do not necessarily indicate the presence of Hypothyroidism. Correlation with clinical findings such as presence of goiter and/or Thyroperoxidase (TPO) Antibody may be helpful. For more information please refer to NIKKIE 2004; 291: 228-238. Eloise Reeves DO CHEMISTRY [facility] [address] [place] [address], * (ABNORMAL) IRON PLUS IRON BINDING CAP (09/12/2023 9:30 AM ASSEMBLY INSPECTOR) IRON 35(L) 37 - 145 ug/dL 09/12/2023 6:43 PM ASSEMBLY INSPECTOR [facility] UIBC (UNSATURATED) 277 112 - 347 ug/dL 09/12/2023 6:43 PM ASSEMBLY INSPECTOR [facility] IRON BINDING CAPACITY 312 250 - 400 ug/dL 09/12/2023 6:43 PM ASSEMBLY INSPECTOR [facility] IRON,% SATURATION 11(L) 14 - 50 % 09/12/2023 6:43 PM ASSEMBLY INSPECTOR [facility] Blood BLOOD SPECIMEN / Unknown Venipuncture / Unknown 09/12/2023 9:30 AM ASSEMBLY INSPECTOR 09/12/2023 9:33 AM ASSEMBLY INSPECTOR Eloise Reeves DO CHEMISTRY Performing Organization Address City/[facility]/ZIP Co de Phone Number [facility] [address] [place] [address], * (ABNORMAL) URIC ACID (09/12/2023 9:30 AM ASSEMBLY INSPECTOR) URIC ACID 9.4(H) 2.4 - 5.7 mg/dL 09/12/2023 7:06 PM ASSEMBLY INSPECTOR [facility] Blood BLOOD SPECIMEN / Unknown Venipuncture / Unknown 09/12/2023 9:30 AM ASSEMBLY INSPECTOR 09/12/2023 9:33 AM ASSEMBLY INSPECTOR Eloise Reeves DO CHEMISTRY [facility] [address] [place] [address], * (ABNORMAL) HEMOGLOBIN A1C MONITORING (POCT) (09/12/2023 9:30 AM ASSEMBLY INSPECTOR) HEMOGLOBIN A1C MONITORING (POCT) 8.4(H) <=6.4 % 09/12/2023 10:00 AM ASSEMBLY INSPECTOR [facility] Blood BLOOD SPECIMEN / Unknown Venipuncture / Unknown 09/12/2023 9:30 AM ASSEMBLY INSPECTOR 09/12/2023 9:33 AM ASSEMBLY INSPECTOR Narrative [facility] - 09/12/2023 10:00 AM ASSEMBLY INSPECTOR ? (<=6.9%) ? Indicates good control ? (7.0% to 7.9%) ? Indicates fair control ? (>=8.0%) ? Indicates poor control ?? NOTE: ??These thresholds are guidelines and ?individual targets may vary. Falsely low levels may be seen with: Recent Transfusion, Recent Significant Blood Loss, Hemolytic Diseases, or Falsely elevated levels may be seen with: Untreated Anemias, Splenectomy ? Eloise Reeves DO CHEMISTRY [facility] [address] [place] [address], * FERRITIN (09/12/2023 9:30 AM ASSEMBLY INSPECTOR) Pathologist [facility] FERRITIN 26.8 15.0 - 150.0 ng/mL 09/12/2023 6:43 PM ASSEMBLY INSPECTOR [facility] Blood BLOOD SPECIMEN / Unknown Venipuncture / Unknown 09/12/2023 9:30 AM ASSEMBLY INSPECTOR 09/12/2023 9:33 AM ASSEMBLY INSPECTOR Eloise Reeves DO CHEMISTRY [facility] [address] [place] [address], * (ABNORMAL) VITAMIN B12 (09/12/2023 9:30 AM ASSEMBLY INSPECTOR) VITAMIN B12 1,253(H) 232 - 1,245 pg/mL 09/12/2023 6:43 PM ASSEMBLY INSPECTOR [facility] Blood BLOOD SPECIMEN / Unknown Venipuncture / Unknown 09/12/2023 9:30 AM ASSEMBLY INSPECTOR 09/12/2023 9:33 AM ASSEMBLY INSPECTOR Narrative [facility] - 09/12/2023 6:43 PM ASSEMBLY INSPECTOR Biotin supplements may cause clinically significant interference for this test assay. ??If interference is suspected, it is strongly recommended that biotin is discontinued for at least one week prior to retesting. Eloise Reeves DO CHEMISTRY [facility] [address] [place] [address], from Last 3 Months Care Teams Marine Insurance Claim Examiner Relationship Specialty Start Date End Date Eloise Reeves DO [address] [place] [id number] PCP - General Family Practice 05/13/20
--- OUTSIDE RECORDS SUMMARY | 2023-12-11 20:03 | XMS_ITS | Encounter Summary ---
Author Name Unknown Organization [facility] Address [address] [place] [phone] Phone Care Team Providers Care Wildlife Ecologist Name Role Phone Eloise Reeves DO Primary [...] Coronavirus/COVID-19? No / Unsure 11/04/2023 10:48 PM ACTIVITIES CONCIERGE documented as of this encounter Plan of Treatment Not on file documented as of this encounter Procedures Procedure Name Priority Date/Time Associated Diagnosis Comments TELEMETRY STRIPS 11/06/2023 1:52 AM ACTIVITIES CONCIERGE documented in this encounter Results * TELEMETRY STRIPS (11/06/2023 1:52 AM ACTIVITIES CONCIERGE) Narrative 11/06/2023 1:52 AM ACTIVITIES CONCIERGE Ordered by an unspecified provider. Provider Unknown RAD ECHO documented in this encounter Visit Diagnoses Not on filedocumented in this encounter Care Teams Wildlife Ecologist Relationship Specialty Start Date End Date Eloise Reeves DO [address] [place] [address] PCP - General Family Medicine 11/06/23 documented as of this encounter
--- OUTSIDE RECORDS SUMMARY | 2023-12-11 20:03 | XMS_ITS | Encounter Summary ---
Author Name Unknown Organization [facility] Address [address] [place] [phone] Phone Care Team Providers Care Commercial Food Instructor Name Role Phone Eloise Reeves DO [...] Coronavirus/COVID-19? No / Unsure 11/04/2023 10:48 PM NURSES' ASSOCIATION COUNSELOR documented as of this encounter Plan of Treatment Not on file documented as of this encounter Procedures Procedure Name Priority Date/Time Associated Diagnosis Comments TELEMETRY STRIPS 11/08/2023 7:31 PM NURSES' ASSOCIATION COUNSELOR documented in this encounter Results * TELEMETRY STRIPS (11/08/2023 7:31 PM NURSES' ASSOCIATION COUNSELOR) Narrative 11/08/2023 7:31 PM NURSES' ASSOCIATION COUNSELOR Ordered by an unspecified provider. Provider Unknown RAD ECHO documented in this encounter Visit Diagnoses Not on filedocumented in this encounter Care Teams Commercial Food Instructor Relationship Specialty Start Date End Date Eloise Reeves DO [address] [place] [address] PCP - General Family Medicine 11/06/23 documented as of this encounter
--- OUTSIDE RECORDS SUMMARY | 2023-12-11 20:03 | XMS_ITS | Encounter Summary ---
Author Name Unknown Organization [facility] Address [address] [place] [address] Phone Care Team Providers Care Bioinformatics Programmer Name Role Phone Unavailable Primary Care Provider [...] Coronavirus/COVID-19? No / Unsure 11/04/2023 10:48 PM CORE MACHINE TENDER documented as of this encounter Plan of Treatment Not on file documented as of this encounter Visit Diagnoses Not on filedocumented in this encounter
--- OUTSIDE RECORDS SUMMARY | 2023-12-11 20:03 | XMS_ITS | Encounter Summary ---
Author Name Unknown Organization [facility] Address [address] [place] [address] Phone Care Team Providers Care Auto Vinyl Top Installer Name Role Phone Eloise Reeves DO Primary Care Provider [phone] Encounter Details Date Type Department Care Team [...] Coronavirus/COVID-19? No / Unsure 11/04/2023 10:48 PM DUMPMAN documented as of this encounter Plan of Treatment Not on file documented as of this encounter Procedures Procedure Name Priority Date/Time Associated Diagnosis Comments TELEMETRY STRIPS 11/05/2023 9:25 AM DUMPMAN documented in this encounter Results * TELEMETRY STRIPS (11/05/2023 9:25 AM DUMPMAN) Narrative 11/05/2023 9:25 AM DUMPMAN Ordered by an unspecified provider. Provider Unknown RAD ECHO documented in this encounter Visit Diagnoses Not on filedocumented in this encounter Care Teams Auto Vinyl Top Installer Relationship Specialty Start Date End Date Eloise Reeves DO [address] [place] [address] PCP - General Family Medicine 11/06/23 documented as of this encounter
--- OUTSIDE RECORDS SUMMARY | 2023-12-11 20:03 | XMS_ITS | Encounter Summary ---
Author Name Unknown Organization [facility] Address [address] [place] [phone] Phone Care Team Providers Care Fishing Line Winding Machine Operator Name Role Phone Eloise Reeves [...] Coronavirus/COVID-19? No / Unsure 11/04/2023 10:48 PM LIFE SKILLS TEACHER documented as of this encounter Plan of Treatment Not on file documented as of this encounter Procedures Procedure Name Priority Date/Time Associated Diagnosis Comments TELEMETRY STRIPS 11/08/2023 2:59 AM LIFE SKILLS TEACHER documented in this encounter Results * TELEMETRY STRIPS (11/08/2023 2:59 AM LIFE SKILLS TEACHER) Narrative 11/08/2023 2:59 AM LIFE SKILLS TEACHER Ordered by an unspecified provider. Provider Unknown RAD ECHO documented in this encounter Visit Diagnoses Not on filedocumented in this encounter Care Teams Fishing Line Winding Machine Operator Relationship Specialty Start Date End Date Eloise Reeves DO [address] [place] [address] PCP - General Family Medicine 11/06/23 documented as of this encounter
--- OUTSIDE RECORDS SUMMARY | 2023-12-11 20:03 | XMS_ITS | Encounter Summary ---
Author Name Unknown Organization [facility] Address [address] [place] [address] Phone Care Team Providers Care Biscuit Factory Worker Name Role Phone Eloise Reeves DO Primary Care Provider [phone] Encounter Details Date Type Department Care Team [...] Coronavirus/COVID-19? No / Unsure 11/04/2023 10:48 PM DENTIST documented as of this encounter Plan of Treatment Not on file documented as of this encounter Procedures Procedure Name Priority Date/Time Associated Diagnosis Comments TELEMETRY STRIPS 11/06/2023 4:28 PM DENTIST documented in this encounter Results * TELEMETRY STRIPS (11/06/2023 4:28 PM DENTIST) Narrative 11/06/2023 4:28 PM DENTIST Ordered by an unspecified provider. Provider Unknown RAD ECHO documented in this encounter Visit Diagnoses Not on filedocumented in this encounter Care Teams Biscuit Factory Worker Relationship Specialty Start Date End Date Eloise Reeves [address] [place] [address] PCP - General Family Medicine 11/06/23 documented as of this encounter
--- OUTSIDE RECORDS SUMMARY | 2023-12-11 20:03 | XMS_ITS | Encounter Summary ---
Author Name Unknown Organization [facility] Address [address] [place] [phone] Phone Care Team Providers Care Fire Engine Operator Name Role Phone Eloise Reeves DO Primary Care Provider [phone] Encounter Details Date Type Department Care Team [...] Coronavirus/COVID-19? No / Unsure 11/04/2023 10:48 PM METAL COATER OPERATOR documented as of this encounter Plan of Treatment Not on file documented as of this encounter Procedures Procedure Name Priority Date/Time Associated Diagnosis Comments TELEMETRY STRIPS 11/09/2023 1:21 AM METAL COATER OPERATOR documented in this encounter Results * TELEMETRY STRIPS (11/09/2023 1:21 AM METAL COATER OPERATOR) Narrative 11/09/2023 1:21 AM METAL COATER OPERATOR Ordered by an unspecified provider. Provider Unknown RAD ECHO documented in this encounter Visit Diagnoses Not on filedocumented in this encounter Care Teams Fire Engine Operator Relationship Specialty Start Date End Date Eloise Reeves DO [address] [place] [address] PCP - General Family Medicine 11/06/23 documented as of this encounter
--- OUTSIDE RECORDS SUMMARY | 2023-12-11 20:03 | XMS_ITS | Encounter Summary ---
Author Name Unknown Organization [facility] Address [address] [place] [address] Phone Care Team Providers Care Rn Case Management Name Role Phone Eloise Reeves DO Primary [...] Coronavirus/COVID-19? No / Unsure 11/04/2023 10:48 PM PROGRAMMING SPECIALIST documented as of this encounter Plan of Treatment Not on file documented as of this encounter Procedures Procedure Name Priority Date/Time Associated Diagnosis Comments TELEMETRY STRIPS 11/09/2023 8:48 AM PROGRAMMING SPECIALIST documented in this encounter Results * TELEMETRY STRIPS (11/09/2023 8:48 AM PROGRAMMING SPECIALIST) Narrative 11/09/2023 8:48 AM PROGRAMMING SPECIALIST Ordered by an unspecified provider. Provider Unknown RAD ECHO documented in this encounter Visit Diagnoses Not on filedocumented in this encounter Care Teams Rn Case Management Relationship Specialty Start Date End Date Eloise Reeves DO [address] [place] [address] PCP - General Family Medicine 11/06/23 documented as of this encounter
--- OUTSIDE RECORDS SUMMARY | 2023-12-11 20:03 | XMS_ITS | Encounter Summary ---
Author Name Unknown Organization [facility] Address [address] [place] [address] Phone Care Team Providers Care Net Applications Developer Name Role Phone Eloise Reeves DO Primary [...] No / Unsure 11/04/2023 10:48 PM DIRECTOR CUSTOM documented as of this encounter Plan of Treatment Not on file documented as of this encounter Procedures Procedure Name Priority Date/Time Associated Diagnosis Comments TELEMETRY STRIPS 11/07/2023 1:07 AM DIRECTOR CUSTOM documented in this encounter Results * TELEMETRY STRIPS (11/07/2023 1:07 AM DIRECTOR CUSTOM) Narrative 11/07/2023 1:07 AM DIRECTOR CUSTOM Ordered by an unspecified provider. Provider Unknown RAD ECHO documented in this encounter Visit Diagnoses Not on filedocumented in this encounter Care Teams Net Applications Developer Relationship Specialty Start Date End Date Eloise Reeves DO [address] [place] [address] PCP - General Family Medicine 11/06/23 documented as of this encounter
== END 2023-12-10 13:18 | disposition home or self-care (01) ==
LOC: AMB 12-11 19:58
PROVIDERS: PCP Family Medicine; Visit Provider Family Medicine
DX: F29 Unspecified psychosis not due to a substance or known physiological condition (principal)
CPT/HCPCS: A0425; A0429

== ENCOUNTER 2023-12-10 13:34 | Emergency (ER) | payer MEDICARE, SELFPAY ==
[2023-12-10] VITALS (17 sets, daily range): BP systolic 122–142; BP diastolic 59–94; PULSE 76–101; RESP 22; TEMP 36.4; O2SAT 92–99; BMI 29.5
--- NOTE | 2023-12-10 14:08 | ED_ITS ---
HPI - General Adult General Time Seen by Provider: 14:08 Date Seen: 12/10/23 Chief complaint: Unspecified Complaint, Adult Stated complaint: Ill Time Seen by Provider: 12/10/23 13:55 Source: patient, EMS, RN notes reviewed and old records reviewed Mode of arrival: EMS Limitations: no limitations History of Present Illness HPI narrative: This 83-year-old female is brought back by EMS, present when I evaluated her, complaint of feeling shaky. She states she just can not quit shaking. Feels shaking in her upper body. She does feel anxious. Her main source of anxiety at this point is attributed to her relationship with her daughter, she states typical mother daughter stuff. She is not feeling achy anywhere, has a mild headache. Last night was evaluated for chest pain, has none now. She has been on different antidepressants and antianxiety medicines per her report. She does states she has upcoming appointment with her primary provider soon. She was given Ativan by EMS last night, nothing today. She states she has no benzodiazepines at home, not using chronically. She has been noted to be shaky since 8:00 a.m. this morning. Denies any cough or cold symptoms. She notes when she is anxious she has no appetite but otherwise no abdominal pain, no nausea vomiting or diarrhea. She has no symptoms of any illness at this time. Related Data Home Medications Medication Instructions Recorded Confirmed amlodipine 2.5 mg tablet 2.5 mg PO DAILY 03/20/23 09/05/23 carvedilol 12.5 mg tablet 12.5 mg PO BID 03/20/23 09/05/23 chlorthalidone 25 mg tablet 25 mg PO DAILY 03/20/23 09/05/23 cyanocobalamin (vitamin B-12) 1,000 mcg PO DAILY 03/20/23 09/05/23 1,000 mcg tablet ferrous sulfate 325 mg (65 mg 325 mg PO BID 03/20/23 09/05/23 iron) tablet (FeroSul) losartan 100 mg tablet 100 mg PO DAILY 03/20/23 09/05/23 metformin 1,000 mg tablet 1,000 mg PO BID 03/20/23 09/05/23 omeprazole 20 mg capsule,delayed 20 mg PO BID 03/20/23 09/05/23 release rosuvastatin 10 mg tablet 10 mg PO QPM 03/20/23 09/05/23 venlafaxine 150 mg 50 mg PO DAILY 03/20/23 09/05/23 capsule,extended release 24 hr venlafaxine 75 mg capsule,extended 50 mg PO DAILY 03/20/23 09/05/23 release 24 hr Previous Rx's Medication Instructions Recorded hydrocodone 5 mg-acetaminophen 325 1 tab PO Q6H PRN pain #10 tabs 07/02/23 mg tablet benzonatate 100 mg capsule 100 mg PO BID-TID PRN cough #20 08/17/23 caps peg 3350-electrolytes 236 240 ml PO ONCE #4,000 mL 10/16/23 gram-22.74 gram-6.74 gram-5.86 gram solution (Golytely) Allergies Allergy/AdvReac Type Severity Reaction Status Date / Time latex Allergy Verified 09/05/23 08:50 morphine Allergy Rash Verified 09/05/23 08:50 silicone Allergy Rash Verified 09/05/23 08:50 topiramate [From Topamax] Allergy Hallucinati Verified 09/05/23 08:50 ng surgical tape Allergy Uncoded 09/05/23 08:49 Review of Systems Status of ROS: Reports: 6 or more systems reviewed and unremarkable except as noted in History and below [facility] Social History Smoking Status: Never smoker Do you use any of these nicotine containing products: None How often do you have a drink containing alcohol: monthly or less AUDIT-C Alcohol total score: 1 Non-prescribed substance use: denies use service: No Exam Const: Vital Signs, click to edit/add: Vital Signs - 24 hr 12/10/23 13:42 12/10/23 14:29 12/10/23 14:31 Temperature 97.6 F Pulse Rate Pulse Rate [Pulse Oximeter] 101 H Respiratory Rate 22 Blood Pressure 123/59 L Blood Pressure [Le ft Upper Arm] 140/74 H Pulse Oximetry 96 96 Oxygen Delivery Me thod Room Air 12/10/23 14:31 12/10/23 14:49 12/10/23 15:00 Temperature Pulse Rate 90 80 Pulse Rate [Pulse Oximeter] Respiratory Rate Blood Pressure 123/59 L Blood Pressure [Le ft Upper Arm] Pulse Oximetry 95 92 Oxygen Delivery Me thod 12/10/23 15:01 02/12/24 15:02 12/10/23 15:15 Temperature Pulse Rate 83 82 76 Pulse Rate [Pulse Oximeter] Respiratory Rate Blood Pressure 122/71 Blood Pressure [Le ft Upper Arm] Pulse Oximetry 99 97 92 Oxygen Delivery Me thod 12/10/23 15:30 12/10/23 15:31 12/10/23 15:31 Temperature Pulse Rate 87 85 85 Pulse Rate [Pulse Oximeter] Respiratory Rate Blood Pressure 142/64 H 142/64 H Blood Pressure [Le ft Upper Arm] Pulse Oximetry 94 94 94 Oxygen Delivery Me thod 12/10/23 15:45 12/10/23 16:00 12/10/23 16:01 Temperature Pulse Rate 89 89 91 Pulse Rate [Pulse Oximeter] Respiratory Rate Blood Pressure 134/94 H Blood Pressure [Le ft Upper Arm] Pulse Oximetry 96 97 98 Oxygen Delivery [place] thod 12/10/23 16:15 Temperature Pulse Rate 99 Pulse Rate [Pulse Oximeter] Respiratory Rate Blood Pressure Blood Pressure [Le ft Upper Arm] Pulse Oximetry [facility] is alert, interactive, no apparent distress. She has some generalized just shaking of her upper extremities, global in her upper extremities. At times this does stop when I am talking to her. Nothing is noted in her lower extremities. Pupils are equal and round, extraocular movements intact, sclera clear. Symmetrical facial function, oropharynx normal. Neck is supple, no adenopathy or masses. She is able to sit up, lungs are clear, good air entry, no wheezing or crackles. CV regular rate and rhythm, no murmur, normal S1-S2, no S3-S4. Abdomen is soft, no rebound or guarding, no organomegaly. Strength is 5/5 and symmetric. Skin visualized without any rash. Documenting provider has reviewed patient's vital signs: yes Course Course ED Course: We will obtain blood work, do the viral triple swab, obtain EKG. We will consider infectious etiology, have discussed with her that she could be coming down with something. Thus, really do think we should check the triple viral swab. We will check blood work, urinalysis, consider bacterial infections as well. She is not cough seen, do not think chest x-ray is necessary at this time. Consider imaging based on laboratory work. I a.m. going to give her 1 mg oral Ativan and see if that does help her symptoms. This certainly could be anxiety but do not want to miss any serious pathology. She has not had any further chest pain, do not think she needs any further workup for that. Reevaluation(s) Time of Reevaluation #1: 16:25 Reevaluation #1: Have reviewed with patient and her that we are awaiting CRP and collection of UA, she declines UA as she doesn't feel that there is UTI. She doesn't think she has urinary infection. Did see that she is actually on ativan 0.5mg daily. We reviewed that she should follow up with her primary which her states that they have appointment on Sunday. Vital Signs Vital signs: Initial Vital Signs Temperature 97.6 F 12/10/23 13:42 Temperature Source Temporal Artery Scan 12/10/23 13:42 Pulse Rate 101 H 12/10/23 13:42 Respiratory Rate 12/10/23 13:42 Blood Pressure 140/74 H 12/10/23 13:42 Blood Pressure Mean 96 12/10/23 13:42 Blood Pressure Position Supine 12/10/23 13:42 Pulse Oximetry 96 12/10/23 13:42 Oxygen Delivery Method Room Air 12/10/23 13:42 Vital Signs Temperature 97.6 F 12/10/23 13:42 Pulse Rate 101 H 12/10/23 13:42 Respiratory Rate 22 12/10/23 13:42 Blood Pressure 140/74 H 12/10/23 13:42 Pulse Oximetry 96 12/10/23 13:42 Oxygen Delivery Method Room Air 12/10/23 13:42 Temperature 97.6 F 12/10/23 13:42 Pulse Rate 99 12/10/23 16:15 Respiratory Rate 12/10/23 13:42 Blood Pressure 134/94 H 12/10/23 16:01 Pulse Oximetry 98 12/10/23 16:15 Oxygen Delivery Method Room Air 12/10/23 13:42 Medical Decision Making Lab Data Lab results reviewed: Yes I reviewed the patient's lab results Lab results narrative: Hemoglobin is stable in comparison to prior labs. Labs: Lab Results 12/10/23 12/10/23 Range/Units 14:32 14:47 WBC 7.46 (4.50-11.00) K/uL RBC 4.15 (4.00-5.20) m/uL Hgb 10.8 L (12.0-16.0) gm/dL Hct 34.8 (33.0-51.0) % MCV 84 (80-100) fL MCH 26 (26-34) pg MCHC 31 L (32-36) gm/dL RDW Coeff of Lelia 17.2 H (11.5-15.5) % Plt Count 218 (140-440) K/uL Neut % (Auto) 61.7 (42.0-72.0) % Lymph % (Auto) 25.6 (20-44) % Randall % (Auto) 9.0 (0.0-11.0) % Eos % (Auto) 3.1 (0.0-7.0) % Baso % (Auto) 0.5 (0.0-3.0) % Neut # (Auto) 4.60 (1.7-7.0) K/uL Lymph # (Auto) 1.91 (0.90-2.90) K/uL Randall # (Auto) 0.70 (0.00-0.90) K/UL Eos # (Auto) 0.23 (0.00-0.50) K/uL Baso # (Auto) 0.04 (0.00-0.30) K/uL Abs Immat Gran (auto) 0.01 (0.00-0.30) K/uL Imm/Tot Granulo (auto) 0.1 % Sodium 144 (135-149) mmol/L Potassium 3.7 (3.6-5.1) mmol/L Chloride 106 (96-114) mmol/L Carbon Dioxide 25 (20-32) mmol/L Anion Gap 13 (7-15) mEq/L BUN 17 (7-30) mg/dL Creatinine 1.1 (0.5-1.5) mg/dL Estimated Creat Clear 40.50 Estimated GFR 50 ml/min Glucose 116 H (60-115) mg/dL Lactate 2.3 H (0.5-1.9) mmol/L Calcium 9.9 (8.4-10.6) mg/dL Total Bilirubin 0.3 (0.1-1.5) mg/dL AST 44 H (12-35) U/L ALT 31 (4-35) U/L Alkaline Phosphatase 76 (40-150) U/L Total Protein 8.2 (6.0-8.3) g/dL Albumin 4.7 (3.3-5.0) g/dL Procalcitonin 0.11 (<0.50) ng/mL SARS-CoV-2 (PCR) Negative SARS-CoV-2 (Negative) Influenza Type A (PCR) Negative PCR FLU A (Negative) Influenza Type B (PCR) Negative PCR FLU B (Negative) RSV (PCR) Negative PCR RSV (Negative) ECG Data Attestation: I personally reviewed and interpreted this ECG as follows: (Normal sinus rhythm, 86 beats per minute. Right bundle branch block. QT corrected 471 milliseconds.) Prior ECG tracings: available for review (Compared to EKG last night, no change.) Discharge Plan Discharge Clinical Impression: Anxiety, Shakiness Patient Disposition: Home, Self-Care Condition: Stable Instructions: Anxiety (ED), Tremors (ED) Additional Instructions: I do wonder if you are may be developing tremors, could be confirmed by Neurology if this continues. Your primary care provider certainly can help with this. Keep your appointment for this week. Do need to discuss anxiety and anxiety treatment with them. There is no evidence of any infection for cause of your symptoms today. Activity Level: Activity as Tolerated Prescriptions: No Action benzonatate 100 mg capsule 100 mg PO BID-TID PRN (Reason: cough) Qty: 20 0RF hydrocodone-acetaminophen 5-325 mg tablet 1 tab PO Q6H PRN (Reason: pain) Qty: 10 0RF venlafaxine 75 mg capsule,extended release 24hr 50 mg PO DAILY carvedilol 12.5 mg tablet 12.5 mg PO BID venlafaxine 150 mg capsule,extended release 24hr 50 mg PO DAILY cyanocobalamin (vitamin B-12) 1,000 mcg tablet 1,000 mcg PO DAILY amlodipine 2.5 mg tablet 2.5 mg PO DAILY chlorthalidone 25 mg tablet 25 mg PO DAILY ferrous sulfate [FeroSul] 325 mg (65 mg iron) tablet 325 mg PO BID metformin 1,000 mg tablet 1,000 mg PO BID omeprazole 20 mg capsule,delayed release(DR/EC) 20 mg PO BID losartan 100 mg tablet 100 mg PO DAILY rosuvastatin 10 mg tablet 10 mg PO QPM peg 3350-electrolytes [Golytely] 236-22.74-6.74 -5.86 gram recon soln 240 ml PO ONCE Qty: 4000 0RF Rx Instructions: 4pm day prior to procedure. Drink 8oz glass every 15 minutes until 1/2 of solution is gone. 6 hours prior to procedure drink 8 oz glass every 15 minutes until remaining solution gone. Follow Up/Referrals: Eloise Reeves DO [Primary Care Provider] - [facility]
--- OUTSIDE RECORDS SUMMARY | 2023-12-10 14:34 | XMS_ITS | Clinical Summary ---
Author Name Unknown Organization [facility] Address [address] [place] [id number] Phone Care Team Providers Care Skull Splitter Name Role Phone Jacklyn Reevesher Sushil BUSBY Primary Care Provider Source Comments Zokem is fully rolled out on Luminal. Last update 04/02/09.[facility] Allergies Active Allergy Reactions Criticality Noted Date [...] Department Care Team Description 11/27/2023 1:00 PM MACHINE LEATHER TRIMMER [facility] [address] [place] [address] [phone] Leidy Velazquez PA-C Mild traumatic brain injury, [...] Department [place] Unknown, Provider 11/04/2023 10:39 PM MACHINE LEATHER TRIMMER - 11/16/2023 9:19 AM MACHINE LEATHER TRIMMER Hospital Encounter [facility]/Trauma/Kimmie ro [address] [place] [address] Devin Dougherty MD Petrun, Branden, MD [place], [...] Comments Blood Pressure 108/71 11/27/2023 12:54 PM MACHINE LEATHER TRIMMER Pulse 74 11/27/2023 12:54 PM MACHINE LEATHER TRIMMER Temperature 36.6 ??C (97.8 ??F) 11/16/2023 4:25 AM CS T Respiratory Rate 16 11/16/2023 4:25 AM MACHINE LEATHER TRIMMER Oxygen Saturation 90% 11/16/2023 4:25 AM MACHINE LEATHER TRIMMER Inhaled Oxygen Concentration - - Weight 61.6 kg (135 lb 12.8 oz) 024 12:54 PM MACHINE LEATHER TRIMMER Height 147.3 cm (4' 10) 11/05/2023 12: 03 AM MACHINE LEATHER TRIMMER Body Mass Index 28.38 11/05/2023 12:03 AM MACHINE LEATHER TRIMMER Plan of Treatment Health Maintenance Due Date [...] BASIC METABOLIC (BMP) Routine 11/16/2023 7:22 AM MACHINE LEATHER TRIMMER POC GLUCOSE Routine 11/16/2023 6:58 AM MACHINE LEATHER TRIMMER POC GLUCOSE Routine 11/15/2023 9:15 PM MACHINE LEATHER TRIMMER POC GLUCOSE Routine 11/15/2023 4:09 PM MACHINE LEATHER TRIMMER POC GLUCOSE Routine 11/15/2023 12:46 PM MACHINE LEATHER TRIMMER PANEL BASIC METABOLIC (BMP) Routine 11/15/2023 7:39 AM MACHINE LEATHER TRIMMER POC GLUCOSE Routine 11/15/2023 6:11 AM MACHINE LEATHER TRIMMER POC GLUCOSE Routine 11/14/2023 9:02 PM MACHINE LEATHER TRIMMER POC GLUCOSE Routine 11/14/2023 4:21 PM MACHINE LEATHER TRIMMER POC GLUCOSE Routine 11/14/2023 12:19 PM MACHINE LEATHER TRIMMER PANEL BASIC METABOLIC (BMP) Routine 11/14/2023 8:59 AM MACHINE LEATHER TRIMMER POC GLUCOSE Routine 11/14/2023 8:11 AM MACHINE LEATHER TRIMMER POC GLUCOSE Routine 11/13/2023 9:15 PM MACHINE LEATHER TRIMMER POC GLUCOSE Routine 11/13/2023 4:03 PM MACHINE LEATHER TRIMMER POC GLUCOSE Routine 11/13/2023 11:21 AM MACHINE LEATHER TRIMMER PANEL BASIC METABOLIC (BMP) Routine 11/13/2023 6:41 AM MACHINE LEATHER TRIMMER POC GLUCOSE Routine 11/13/2023 6:31 AM MACHINE LEATHER TRIMMER POC GLUCOSE Routine 11/12/2023 9:21 PM MACHINE LEATHER TRIMMER POC GLUCOSE Routine 11/12/2023 4:12 PM MACHINE LEATHER TRIMMER PANEL BASIC METABOLIC (BMP) Timed 11/12/2023 1:01 PM MACHINE LEATHER TRIMMER POC GLUCOSE Routine 11/12/2023 12:14 PM MACHINE LEATHER TRIMMER POC GLUCOSE Routine 11/12/2023 6:09 AM MACHINE LEATHER TRIMMER POC GLUCOSE Routine 11/11/2023 8:48 PM MACHINE LEATHER TRIMMER POC GLUCOSE Routine 11/11/2023 4:11 PM MACHINE LEATHER TRIMMER POC GLUCOSE Routine 11/11/2023 11:47 AM MACHINE LEATHER TRIMMER PHOSPHORUS Routine 11/11/2023 6:09 AM MACHINE LEATHER TRIMMER PANEL BASIC METABOLIC (BMP) Routine 11/11/2023 6:09 AM MACHINE LEATHER TRIMMER MAGNESIUM Routine 11/11/2023 6:09 AM MACHINE LEATHER TRIMMER TC LAB BLOOD DRAW BY VENIPUNCTURE Routine 11/11/2023 6:09 AM MACHINE LEATHER TRIMMER POC GLUCOSE Routine 11/10/2023 8:58 PM MACHINE LEATHER TRIMMER POC GLUCOSE Routine 11/10/2023 4:16 PM MACHINE LEATHER TRIMMER POC GLUCOSE Routine 11/10/2023 11:15 AM MACHINE LEATHER TRIMMER PHOSPHORUS Routine 11/10/2023 6:17 AM MACHINE LEATHER TRIMMER PANEL BASIC METABOLIC (BMP) Routine 11/10/2023 6:17 AM MACHINE LEATHER TRIMMER MAGNESIUM Routine 11/10/2023 6:17 AM MACHINE LEATHER TRIMMER PC LAB CBC/PLT Routine 11/10/2023 6:17 AM MACHINE LEATHER TRIMMER POC GLUCOSE Routine 11/09/2023 9:41 PM MACHINE LEATHER TRIMMER POC GLUCOSE Routine 11/09/2023 3:58 PM MACHINE LEATHER TRIMMER ANTI XA ASSAY LMW HEPARIN Timed 11/09/2023 2:18 PM MACHINE LEATHER TRIMMER POC GLUCOSE Routine 11/09/2023 11:28 AM MACHINE LEATHER TRIMMER XR FOOT RIGHT 3 V AP/OBL/LAT* Routine 11/09/2023 10:36 AM MACHINE LEATHER TRIMMER TELEMETRY STRIPS 11/09/2023 8:48 AM MACHINE LEATHER TRIMMER POC GLUCOSE Routine 11/09/2023 5:46 AM MACHINE LEATHER TRIMMER PC VALPROIC ACID LEVEL DEPAHOTE Routine 11/09/2023 5:41 AM MACHINE LEATHER TRIMMER PHOSPHORUS Routine 11/09/2023 5:41 AM MACHINE LEATHER TRIMMER PANEL BASIC METABOLIC (BMP) Routine 11/09/2023 5:41 AM MACHINE LEATHER TRIMMER MAGNESIUM Routine 11/09/2023 5:41 AM MACHINE LEATHER TRIMMER PC LAB CBC/PLT Routine 11/09/2023 5:41 AM MACHINE LEATHER TRIMMER TELEMETRY STRIPS 11/09/2023 1:21 AM MACHINE LEATHER TRIMMER POC GLUCOSE Routine 11/08/2023 8:40 PM MACHINE LEATHER TRIMMER TELEMETRY STRIPS 11/08/2023 7:31 PM MACHINE LEATHER TRIMMER PHOSPHORUS Routine 11/08/2023 4:20 PM MACHINE LEATHER TRIMMER MAGNESIUM Routine 11/08/2023 4:20 PM MACHINE LEATHER TRIMMER PANEL BASIC METABOLIC (BMP) Routine 11/08/2023 4:20 PM MACHINE LEATHER TRIMMER TC LAB BLOOD DRAW BY VENIPUNCTURE Routine 11/08/2023 4:20 PM MACHINE LEATHER TRIMMER POC GLUCOSE Routine 11/08/2023 3:56 PM MACHINE LEATHER TRIMMER POC GLUCOSE Routine 11/08/2023 11:03 AM MACHINE LEATHER TRIMMER TELEMETRY STRIPS 11/08/2023 9:49 AM MACHINE LEATHER TRIMMER XR CHEST 1 VIEW AP OR PA* Routine 11/08/2023 6:30 AM MACHINE LEATHER TRIMMER POC GLUCOSE Routine 11/08/2023 6:22 AM MACHINE LEATHER TRIMMER TELEMETRY STRIPS 11/08/2023 2:59 AM MACHINE LEATHER TRIMMER POC GLUCOSE Routine 11/07/2023 9:34 PM MACHINE LEATHER TRIMMER TELEMETRY STRIPS 11/07/2023 7:31 PM MACHINE LEATHER TRIMMER POC GLUCOSE Routine 11/07/2023 4:06 PM MACHINE LEATHER TRIMMER POC GLUCOSE Routine 11/07/2023 11:45 AM MACHINE LEATHER TRIMMER XR CHEST 2 VIEWS PA + LAT* Routine 11/07/2023 10:07 AM MACHINE LEATHER TRIMMER TELEMETRY STRIPS 11/07/2023 9:29 AM MACHINE LEATHER TRIMMER PC PROCALCITONIN (PCT) Routine 8:34 AM MACHINE LEATHER TRIMMER PC LAB CBC/PLT Routine 11/07/2023 8:34 AM MACHINE LEATHER TRIMMER PANEL BASIC METABOLIC (BMP) Routine 11/07/2023 8:34 AM MACHINE LEATHER TRIMMER MAGNESIUM Routine 11/07/2023 8:34 AM MACHINE LEATHER TRIMMER PHOSPHORUS Routine 11/07/2023 8:34 AM MACHINE LEATHER TRIMMER POC GLUCOSE Routine 11/07/2023 5:45 AM MACHINE LEATHER TRIMMER TELEMETRY STRIPS 11/07/2023 1:07 AM MACHINE LEATHER TRIMMER POC GLUCOSE Routine 11/06/2023 9:21 PM MACHINE LEATHER TRIMMER TELEMETRY STRIPS 11/06/2023 4:28 PM MACHINE LEATHER TRIMMER PC GASES,BLOOD,ANY COMB OF PH,PCD2,PO2,CO2,HCO2 Routine 11/06/2023 1:06 PM MACHINE LEATHER TRIMMER MAGNESIUM Timed 11/06/2023 1:06 PM MACHINE LEATHER TRIMMER PHOSPHORUS Timed 11/06/2023 1:06 PM MACHINE LEATHER TRIMMER PANEL BASIC METABOLIC (BMP) Timed 11/06/2023 1:06 PM MACHINE LEATHER TRIMMER PC LAB CBC/PLT Timed 11/06/2023 1:06 PM MACHINE LEATHER TRIMMER POC GLUCOSE Routine 11/06/2023 1:04 PM MACHINE LEATHER TRIMMER POC GLUCOSE Routine 11/06/2023 10:49 AM MACHINE LEATHER TRIMMER TELEMETRY STRIPS 11/06/2023 8:49 AM MACHINE LEATHER TRIMMER PC LAB GLYCOSYLATED HGB Routine 11/06/2023 6:31 AM MACHINE LEATHER TRIMMER PROTHROMBIN (PT) & INR Timed 6:31 AM MACHINE LEATHER TRIMMER PC PHOSPHORUS INORGANIC(PHOSPHATE) Routine 11/06/2023 6:31 AM MACHINE LEATHER TRIMMER PC MAGNESIUM, SERUM Routine 11/06/2023 6 :31 AM MACHINE LEATHER TRIMMER PC LAB CBC/PLT Routine 11/06/2023 6:31 AM MACHINE LEATHER TRIMMER TC LAB BLOOD DRAW BY VENIPUNCTURE Routine 11/06/2023 6:31 AM MACHINE LEATHER TRIMMER POC GLUCOSE Routine 11/06/2023 5:39 AM MACHINE LEATHER TRIMMER TELEMETRY STRIPS 11/06/2023 1:52 AM MACHINE LEATHER TRIMMER POC GLUCOSE Routine 11/05/2023 4:54 PM MACHINE LEATHER TRIMMER MAGNESIUM Routine 11/05/2023 4:48 PM MACHINE LEATHER TRIMMER POTASSIUM Routine 11/05/2023 4:48 [address] HEAD NO IV CONTRAST Timed 11:44 AM MACHINE LEATHER TRIMMER POC GLUCOSE Routine 11/05/2023 11:11 AM MACHINE LEATHER TRIMMER TELEMETRY STRIPS 11/05/2023 9:25 AM MACHINE LEATHER TRIMMER EKG ADULT (12-LEAD) Routine 11/05/2023 6 :38 AM MACHINE LEATHER TRIMMER POC GLUCOSE Routine 11/05/2023 6:07 AM [address]INE LE[address] HEAD NO IV CONTRAST Timed 4:54 AM MACHINE LEATHER TRIMMER PROTHROMBIN (PT) & INR Timed 4:27 AM MACHINE LEATHER TRIMMER PC PHOSPHORUS INORGANIC(PHOSPHATE) Routine 11/05/2023 4:27 AM MACHINE LEATHER TRIMMER PC MAGNESIUM, SERUM Routine 11/05/2023 4 :27 AM MACHINE LEATHER TRIMMER PC GASES,BLOOD,ANY COMB OF PH,PCD2,PO2,CO2,HCO2 Routine 11/05/2023 4:27 AM MACHINE LEATHER TRIMMER PC LAB CBC/PLT Routine 11/05/2023 4:27 AM MACHINE LEATHER TRIMMER TC LAB BLOOD DRAW BY VENIPUNCTURE Routine 11/05/2023 4:27 AM MACHINE LEATHER TRIMMER PC TROPONIN QUANTITATIVE Timed 11/05/2023 4:27 AM MACHINE LEATHER TRIMMER PC TROPONIN QUANTITATIVE Timed 11/05/2023 2:58 AM MACHINE LEATHER TRIMMER CK, TOTAL STAT 11/05/2023 1:32 AM MACHINE LEATHER TRIMMER FIBRINOGEN STAT 11/05/2023 1:32 AM MACHINE LEATHER TRIMMER PC LAB PTT STAT 11/05/2023 1:32 AM MACHINE LEATHER TRIMMER PANEL HEPATIC FUNCTION STAT 1:32 AM MACHINE LEATHER TRIMMER PC LAB CBC/PLT STAT 11/05/2023 1:32 AM MACHINE LEATHER TRIMMER PANEL BASIC METABOLIC (BMP) STAT 11/05/2023 1:32 AM MACHINE LEATHER TRIMMER MAGNESIUM STAT 11/05/2023 1:32 AM MACHINE LEATHER TRIMMER PHOSPHORUS STAT 11/05/2023 1:32 AM MACHINE LEATHER TRIMMER PROTHROMBIN (PT) & INR STAT 1:32 AM MACHINE LEATHER TRIMMER PC IONIZED,CALCIUM STAT 11/05/2023 1: 18 AM MACHINE LEATHER TRIMMER PC LACTATE (LACTIC ACID) STAT 11/05/2023 1:18 AM MACHINE LEATHER TRIMMER PC GASES,BLOOD,ANY COMB OF PH,PCD2,PO2,CO2,HCO2 STAT 11/05/2023 1:18 AM MACHINE LEATHER TRIMMER PC TROPONIN QUANTITATIVE Timed 11/05/2023 1:18 AM [address] HEAD-NECK - ANGIO - W/IV CON STAT 11/05/2023 12:09 AM MACHINE LEATHER TRIMMER PC LAB COMPLETE UA STAT 11/04/2023 11 :55 PM MACHINE LEATHER TRIMMER PF INSERT CATH,ART,PERCUT,SANTA ERM Routine 11/04/2023 11:43 PM MACHINE LEATHER TRIMMER ED EKG (12-LEAD) Routine 11/04/2023 11:2 5 [address] SPINE LUMBAR NO IV CON STAT 11/04/2023 11:05 PM [address] CT SPINE THORACIC NO IV CON STAT 11/04/2023 11:05 PM MACHINE LE[address]MER CT CHEST/ABD/PELVIS W/IV CONT STAT 11/04/2023 11:05 PM [address]INE LE[address] CT SPINE CERVICAL NO IV CON STAT 11/04/2023 11:05 PM MACHINE LE[address] CT HEAD NO IV CONTRAST STAT 11:05 PM MACHINE LEATHER TRIMMER XR CHEST 1 VIEW AP OR PA* STAT 11/04/2023 10:57 PM MACHINE LEATHER TRIMMER TC LAB ER STAT TOTAL HGB STAT 11/04/2023 10:48 PM MACHINE LEATHER TRIMMER PC ELECTROLYTES PANEL STAT 11/04/2023 10:48 PM MACHINE LEATHER TRIMMER PC HEPARIN ASSAY STAT 11/04/2023 10:4 5 PM MACHINE LEATHER TRIMMER EXTRA TUBE - SST Routine 11/04/2023 10:4 5 PM MACHINE LEATHER TRIMMER TC LAB BLOOD DRAW BY VENIPUNCTURE Routine 11/04/2023 10:45 PM MACHINE LEATHER TRIMMER PC TROPONIN QUANTITATIVE STAT 11/04/2023 10:45 PM MACHINE LEATHER TRIMMER PC LAB PTT STAT 11/04/2023 10:45 PM MACHINE LEATHER TRIMMER PC LAB ED INR STAT 11/04/2023 10:45 PM MACHINE LEATHER TRIMMER PRECAUTIONARY TUBE STAT 11/04/2023 10 :45 PM MACHINE LEATHER TRIMMER PC LACTATE (LACTIC ACID) STAT 11/04/2023 10:45 PM MACHINE LEATHER TRIMMER FIBRINOGEN STAT 11/04/2023 10:45 PM MACHINE LEATHER TRIMMER PC LAB CBC W/DIFF & PLT STAT 11/04/2023 10:45 PM MACHINE LEATHER TRIMMER PC GASES,BLOOD,ANY COMB OF PH,PCD2,PO2,CO2,HCO2 STAT 11/04/2023 10:45 PM MACHINE LEATHER TRIMMER ED US CRITICAL CARE STAT 11/04/2023 1 0:40 PM MACHINE LEATHER TRIMMER PANEL LIPID Routine 10/10/2021 11:08 AM MACHINE LEATHER TRIMMER from Last 3 Months or Most Recently Relevant to Health Maintenance Results * (ABNORMAL) PANEL BASIC METABOLIC (BMP) (11/16/2023 7:22 AM MACHINE LEATHER TRIMMER) Only the most recent of12 resultswithin the time period is included. Sodium 143 135 - 148 mEq/L [facility] Potassium 3.9 3.5 - 5.3 mEq/L [facility] Chloride 105 92 - 108 mEq/L [facility] CO2 27 22 - 30 mEq/L [facility] AnGap 11 8 - 16 mEq/L [facility] Glucose 87 70 - 100 mg/dL [facility] BUN 23 8 - 23 mg/dL [facility] Creatinine 1.19(H) 0.50 - 1.00 mg/dL [facility] Calcium 9.4 8.8 - 10.2 mg/dL [facility] eGFR (2020 CKD-EPI) 46(L) >=60 ml/min/1.7 3m2 [facility] Comment: The estimated glomerular filtration rate (eGFR) was calculated using the CKD-EPI 2020 creatinine equation, which does not include race as a factor. This equation is validated in individuals 18 years of age and older, and eGFR is normalized to a body surface area of 1.73m^2. Blood 11/16/2023 7:22 AM MACHINE LEATHER TRIMMER 11/16/2023 7:43 AM MACHINE LEATHER TRIMMER Jesusita Aiken SPECIAL CRIMES INVESTIGATOR, AIR TUBE RELEASER LABORATO RY Performing Organization Address City/[facility]/[place] [address] * POC GLUCOSE (11/16/2023 6:58 AM MACHINE LEATHER TRIMMER) Only the most recent of42 resultswithin the time period is included. POC Glucose 84 70 - 100 mg/dL [facility] Blood 11/16/2023 6:58 AM MACHINE LEATHER TRIMMER Devin Dougherty MD LABORATORY Performing Organization Address City/[facility] Co de Phone Number [facility] [address] [place] [address], * PHOSPHORUS (11/11/2023 6:09 AM MACHINE LEATHER TRIMMER) Only the most recent of7 resultswithin the time period is included. Phosphorus 3.5 2.5 - 4.5 mg/dL [facility] Blood 11/11/2023 6:09 AM MACHINE LEATHER TRIMMER 11/11/2023 6:36 AM MACHINE LEATHER TRIMMER Quinn Covarrubias MD LABORATORY Performing Organization Address City/[facility]/ZIP Co de Phone Number [facility] [address] [address] * MAGNESIUM (11/11/2023 6:09 AM MACHINE LEATHER TRIMMER) Only the most recent of8 resultswithin the time period is included. Magnesium 2.2 1.6 - 2.4 mg/dL [facility] Blood 11/11/2023 6:09 AM MACHINE LEATHER TRIMMER 11/11/2023 6:36 AM MACHINE LEATHER TRIMMER Quinn Covarrubias MD LABORATORY Performing Organization Address [facility] Co de Phone Number [facility] [address] [address] * (ABNORMAL) CBC WITH PLATELET (11/11/2023 6:09 AM MACHINE LEATHER TRIMMER) Only the most recent of7 resultswithin the time period is included. [facility] WBC 5.60 4.00 - 10.00 k/cmm [facility] RBC 3.80(L) 3.90 - 5.20 m/cmm [facility] Hgb 9.5(L) 11.5 - 15.7 g/dL [facility] Hematocrit 31.4(L) 34.0 - 45.0 % [facility] MCV 82.6 80.0 - 100.0 fL [facility] MCH 25.0 25.0 - 32.0 pg [facility] MCHC 30.3(L) 31.0 - 36.0 g/dL [facility] RDW 16.1(H) 11.5 - 14.5 % [facility] Plt 275 150 - 400 k/cmm [facility] MPV 11.8 6.5 - 12.5 fL [facility] Blood 11/11/2023 6:09 AM MACHINE LEATHER TRIMMER 11/11/2023 6:36 AM MACHINE LEATHER TRIMMER Quinn Covarrubias MD LABORATORY Performing Organization Address [facility] Co de Phone Number [facility] [address] [address] * ANTI XA ASSAY LMW HEPARIN (11/09/2023 2:18 PM MACHINE LEATHER TRIMMER) [facility] Anti XA LMW 0.32 IU/mL [facility] Comment: Anti Xa Assay LMW Heparin Therapeutic Ranges: 0.4-1.1 IU/mL for twice daily 1.0-2.0 IU/mL for once daily Blood 11/09/2023 2:18 PM MACHINE LEATHER TRIMMER 11/09/2023 2:29 PM MACHINE LEATHER TRIMMER Quinn Covarrubias MD LABORATORY [facility] [address] [address] * XR FOOT RIGHT 3 V AP/OBL/LAT* (11/09/2023 10:36 AM MACHINE LEATHER TRIMMER) Anatomical Region Laterality Modality Foot Computed Radiogr aphy 11/09/2023 10:4 7 AM MACHINE LEATHER TRIMMER Impressions 11/09/2023 10:50 AM MACHINE LEATHER TRIMMER Impression: No acute osseous abnormality. Generalized osteopenia. Reading Radiologist: Angela Camp Narrative 11/09/2023 10:50 AM MACHINE LEATHER TRIMMER Technique: XR FOOT RIGHT 3 V AP/OBL/LAT* [...] osteopenia. Reading Radiologist: Angela Camp Jesusita Aiken APRN, AIR TUBE RELEASER RAD XRAY * TELEMETRY STRIPS (11/09/2023 8:48 AM MACHINE LEATHER TRIMMER) Only the most recent of12 resultswithin the time period is included. Narrative 11/09/2023 8:48 AM MACHINE LEATHER TRIMMER Ordered by an unspecified provider. Provider Unknown RAD ECHO * (ABNORMAL) VALPROATE (DEPAKOTE) LEVEL (11/09/2023 5:41 AM MACHINE LEATHER TRIMMER) Valproate 31.8(L) 50.0 - 100.0 mcg/mL [facility] Blood 11/09/2023 5:41 AM MACHINE LEATHER TRIMMER 11/09/2023 8:19 AM MACHINE LEATHER TRIMMER Quinn Covarrubias MD LABORATORY [facility] [address] [place] [address] * XR CHEST 1 VIEW AP OR PA* (11/08/2023 6:30 AM MACHINE LEATHER TRIMMER) Only the most recent of2 resultswithin the time period is included. Anatomical Region Laterality Modality Chest Computed Radiogr aphy 11/08/2023 6:56 AM MACHINE LEATHER TRIMMER Impressions 11/08/2023 7:24 AM MACHINE LEATHER TRIMMER Impression: Stable chest. I have personally reviewed the image(s) and initial interpretation, and I agree with the findings as documented by the resident/fellow. Reading Radiologist: Ronal Hidalgo Reading Resident: Laith Berkowitz Narrative 11/08/2023 7:24 AM MACHINE LEATHER TRIMMER Technique: XR CHEST 1 VIEW AP OR [...] VIEWS PA + LAT* (11/07/2023 10:07 AM MACHINE LEATHER TRIMMER) Anatomical Region Laterality Modality Chest Computed Radiogr aphy 11/07/2023 10:0 9 AM MACHINE LEATHER TRIMMER Impressions 11/07/2023 10:10 AM MACHINE LEATHER TRIMMER Impression: New left basilar opacities with small effusion concerning for developing infection. Reading Radiologist: Phil Contreras Narrative 11/07/2023 10:10 AM MACHINE LEATHER TRIMMER Technique: XR CHEST 2 VIEWS PA + [...] RAD XRAY * PROCALCITONIN (11/07/2023 8:34 AM MACHINE LEATHER TRIMMER) Procalcitonin 0.12 ng/mL [facility] Comment: Results <0.50 ng/mL represent a low risk of severe sepsis and/or septic shock. Results >2.0 ng/mL represent a high risk of severe sepsis and/or septic shock. Blood 11/07/2023 8:34 AM MACHINE LEATHER TRIMMER 11/07/2023 8:40 AM MACHINE LEATHER TRIMMER Quinn Covarrubias MD LABORATORY [facility] [address] [address] * (ABNORMAL) BLOOD GASES (11/06/2023 1:06 PM MACHINE LEATHER TRIMMER) Only the most recent of3 resultswithin the time period is included. PH Jalen 7.36 7.32 - 7.42 [facility] PCO2 Jalen 48 41 - 51 mmHG [facility] PO2 Jalen 86(H) 25 - 40 mmHG [facility] Bicarb Jalen 26 24 - 28 mEq/L [facility] O2 Sat Jalen 96 % [facility] Base Exc Jalen 1.0 -10.0 - 2.0 mEq/L [facility] Blood Venous 11/06/2023 1:06 PM MACHINE LEATHER TRIMMER 11/06/2023 1:10 PM MACHINE LEATHER TRIMMER Narrative [facility] - 11/06/2023 1:16 PM MACHINE LEATHER TRIMMER Draw on Room Air: No O2 LPM (liter/min) Level->4 via mask FiO2 Level: 100 Quinn Covarrubias MD LABORATORY Performing Organization Address [facility] de Phone Number [facility] [address] [address] * (ABNORMAL) ICU MAGNESIUM (11/06/2023 6:31 AM MACHINE LEATHER TRIMMER) Only the most recent of2 resultswithin the time period is included. Magnesium 2.5(H) 1.6 - 2.4 mg/dL [facility] Blood 11/06/2023 6:31 AM MACHINE LEATHER TRIMMER 11/06/2023 7:37 AM MACHINE LEATHER TRIMMER Devin Dougherty MD LABORATORY Performing Organization Address [facility] de Phone Number [facility] [address] [address] * ICU PHOSPHORUS (11/06/2023 6:31 AM MACHINE LEATHER TRIMMER) Only the most recent of2 resultswithin the time period is included. Phosphorus 4.1 2.5 - 4.5 mg/dL [facility] Blood 11/06/2023 6:31 AM MACHINE LEATHER TRIMMER 11/06/2023 7:37 AM MACHINE LEATHER TRIMMER Devin Dougherty MD LABORATORY Performing Organization Address [facility] de Phone Number [facility] [address] [address] * (ABNORMAL) ICU CBC WITH PLATELET (11/06/2023 6:31 AM MACHINE LEATHER TRIMMER) Only the most recent of2 resultswithin the time period is included. WBC 9.06 4.00 - 10.00 k/cmm [facility] RBC 3.77(L) 3.90 - 5.20 m/cmm [facility] Hgb 9.6(L) 11.5 - 15.7 g/dL [facility] Hematocrit 30.8(L) 34.0 - 45.0 % [facility] MCV 81.7 80.0 - 100.0 fL [facility] MCH 25.5 25.0 - 32.0 pg [facility] MCHC 31.2 31.0 - 36.0 g/dL [facility] RDW 15.9(H) 11.5 - 14.5 % [facility] Plt 284 150 - 400 k/cmm [facility] MPV 12.1 6.5 - 12.5 fL [facility] Blood 11/06/2023 6:31 AM MACHINE LEATHER TRIMMER 11/06/2023 7:37 AM MACHINE LEATHER TRIMMER Devin Dougherty MD LABORATORY [facility] [address] [phone] * (ABNORMAL) ICU PANEL BASIC METABOLIC (BMP) (11/06/2023 6:31 AM MACHINE LEATHER TRIMMER) Only the most recent of2 resultswithin the time period is included. Sodium 142 135 - 148 mEq/L [facility] Potassium 3.7 3.5 - 5.3 mEq/L [facility] Chloride 107 92 - 108 mEq/L [facility] CO2 26 22 - 30 mEq/L [facility] AnGap 9 8 - 16 mEq/L [facility] Glucose 148(H) 70 - 100 mg/dL [facility] BUN 12 8 - 23 mg/dL [facility] Creatinine 0.77 0.50 - 1.00 mg/dL [facility] Calcium 8.7(L) 8.8 - 10.2 mg/dL [facility] eGFR (2020 CKD-EPI) 77 >=60 ml/min/1.7 3m2 [facility] Comment: The estimated glomerular filtration rate (eGFR) was calculated using the CKD-EPI 2020 creatinine equation, which does not include race as a factor. This equation is validated in individuals 18 years of age and older, and eGFR is normalized to a body surface area of 1.73m^2. Blood 11/06/2023 6:31 AM MACHINE LEATHER TRIMMER 11/06/2023 7:37 AM MACHINE LEATHER TRIMMER Devin Dougherty MD LABORATORY Performing Organization Address City/[facility] Co de Phone Number [facility] [address] [address] * PROTHROMBIN (PT) & INR (11/06/2023 6:31 AM MACHINE LEATHER TRIMMER) Only the most recent of3 resultswithin the time period is included. PT 11.4 9.0 - 12.5 sec [facility] INR 1.0 0.8 - 1.1 [facility] Comment: Warfarin Therapeutic Range: Standard Intensity: 2.0 - 3.0 High Intensity: 2.5 - 3.5 Blood 11/06/2023 6:31 AM MACHINE LEATHER TRIMMER 11/06/2023 7:37 AM MACHINE LEATHER TRIMMER Quinn Covarrubias MD LABORATORY Performing Organization Address [facility] de Phone Number [address] [address] * (ABNORMAL) GLYCOSYLATED HGB - A1C (11/06/2023 6:31 AM MACHINE LEATHER TRIMMER) Hemoglobin A1C 8.1(H) 4.0 - 5.6 % [facility] Comment: Increased risk for diabetes (prediabetes): 5.7-6.4% Diabetes: greater than or equal to 6.5% * * In the absence of unequivocal hyperglycemia, diagnosis requires two abnormal test results (i.e. HbA1c and glucose) or two abnormal results from specimens collected at two different timepoints. Estimated Average Glucose 186(H) 68 - 114 [facility] Comment: The ADA recommends reporting an estimated Average Glucose (eAG) with all hemoglobin A1c results using the equation derived from a study of 501 normal diabetic adults. Minority populations were underrepresented and children were not included. The EAG is not equivalent to a fasting glucose. Blood 11/06/2023 6:31 AM MACHINE LEATHER TRIMMER 11/06/2023 11:28 AM MACHINE LEATHER TRIMMER Quinn Covarrubias MD LABORATORY Performing Organization Address [facility] Co de Phone Number [address] [address] * (ABNORMAL) POTASSIUM (11/05/2023 4:48 PM MACHINE LEATHER TRIMMER) Potassium 3.2(L) 3.5 - 5.3 mEq/L [facility] Blood 11/05/2023 4:48 PM MACHINE LEATHER TRIMMER 11/05/2023 4:58 PM MACHINE LEATHER TRIMMER Quinn Covarrubias MD LABORATORY [facility] [address] [place] [address] * CT HEAD NO IV CONTRAST (11/05/2023 11:44 AM MACHINE LEATHER TRIMMER) Only the most recent of3 resultswithin the time period is included. Anatomical Region Laterality Modality Skull Computed Tomogra phy 11/05/2023 12:1 6 PM MACHINE LEATHER TRIMMER Impressions 11/05/2023 12:38 PM MACHINE LEATHER TRIMMER Impression: Stable head CT as compared to the study performed 7 hours earlier. Intra-axial and extra-axial hemorrhage(s) without midline shift or hydrocephalus. The basal cisterns are patent. Reading Radiologist: Ford Fernández Narrative 11/05/2023 12:38 PM MACHINE LEATHER TRIMMER Exam: Head CT without contrast, 11/05/2023 Indication: [...] * EKG ADULT (12-LEAD) (11/05/2023 6:38 AM MACHINE LEATHER TRIMMER) 11/05/2023 6:38 AM MACHINE LEATHER TRIMMER Impressions [facility] EKG ORDERS - 11/05/2023 6:38 AM MACHINE LEATHER TRIMMER SINUS RHYTHM RIGHT BUNDLE BRANCH BLOCK ??[120+ ms QRS DURATION, UPRIGHT V1, 40+ ms S IN I/aVL/V4/V5/V6] ABNORMAL ECG P-R Interval 151 ms QRS Interval 128 ms QT Interval 420 ms QTC Interval 462 ms P Hopwood 9 QRS [place] 27 T Wave [place] 70 Narrative Procedure Note Lauren Mills MD - 11/06/2023 IMPRESSION SINUS RHYTHM RIGHT BUNDLE BRANCH BLOCK [120+ ms QRS DURATION, UPRIGHT V1, 40+ ms S INI/aVL/V4/V5/V6] ABNORMAL ECG P-R Interval 151 ms QRS Interval 128 ms QT Interval 420 ms QTC Interval 462 ms P [place] 9 QRS [place] 27 T Wave [place] 70 Quinn Covarrubias MD EKG Performing Organization Address City/[facility]/ZIP Co de Phone Number [facility] E[facility] ORDERS * (ABNORMAL) ICU BLOOD GAS (11/05/2023 4:27 AM MACHINE LEATHER TRIMMER) PH Art 7.38 7.35 - 7.45 [facility] PCO2 Art 42 35 - 45 mmHG [facility] PO2 Art 99(H) 75 - 85 mmHG [facility] Bicarb Art 25 22 - 26 mEq/L [facility] O2 Sat Art 98 96 - 99 % [facility] Base Exc Art 0.0 -10.0 - 2.0 mEq/L [facility] Blood Arterial 11/05/2023 4: 27 AM MACHINE LEATHER TRIMMER 11/05/2023 4:34 AM MACHINE LEATHER TRIMMER Devin Dougherty MD LABORATORY [facility] [address] [address] * (ABNORMAL) TROP 6H (11/05/2023 4:27 AM MACHINE LEATHER TRIMMER) 6H Trop 51(H) <=14 ng/L [facility] 6H Delta Significan t(A) Not Significant [facility] Blood 11/05/2023 4:27 AM MACHINE LEATHER TRIMMER 11/05/2023 4:35 AM MACHINE LEATHER TRIMMER Devin Dougherty MD LABORATORY Performing Organization Address [facility] Co de Phone Number [facility] [address] [address] * (ABNORMAL) TROP 4H (11/05/2023 2:58 AM MACHINE LEATHER TRIMMER) 4H Trop 39(H) <=14 ng/L [facility] 4H Delta Significan t(A) Not Significant [facility] Blood 11/05/2023 2:58 AM MACHINE LEATHER TRIMMER 11/05/2023 3:48 AM MACHINE LEATHER TRIMMER Devin Dougherty MD LABORATORY Performing Organization Address [facility] de Phone Number [facility] [address] [address] * (ABNORMAL) PANEL HEPATIC FUNCTION (11/05/2023 1:32 AM MACHINE LEATHER TRIMMER) Alk Phos 111(H) 35 - 104 IU/L [facility] Total Protein 6.5 6.4 - 8.3 g/dL [facility] Bili Direct na <=0.3 mg/dL [facility] Comment:Direct Bilirubin = < 0.2. Accuracy of result suspect due to lipemia. Albumin 3.8 3.8 - 5.1 g/dL [facility] Bili Total <0.2 <=1.2 mg/dL [facility] ALT (SGPT) na <=33 [facility] Comment:ALT = 15. Accuracy o f result suspect due to lipemia. AST(SGOT) na 5 - 40 [facility] Comment:AST = 27. Accuracy o f result suspect due to lipemia. Blood 11/05/2023 1:32 AM MACHINE LEATHER TRIMMER 11/05/2023 1:32 AM MACHINE LEATHER TRIMMER Devin Dougherty MD LABORATORY Performing Organization Address [facility] Co de Phone Number [facility] [address] [address] * FIBRINOGEN (11/05/2023 1:32 AM MACHINE LEATHER TRIMMER) Only the most recent of2 resultswithin the time period is included. Fibrinogen 262 200 - 400 mg/dL [facility] Blood 11/05/2023 1:32 AM MACHINE LEATHER TRIMMER 11/05/2023 1:32 AM MACHINE LEATHER TRIMMER Devin Dougherty MD LABORATORY Performing Organization Address [facility] de Phone Number [facility] [address] [address] * CK, TOTAL (11/05/2023 1:32 AM MACHINE LEATHER TRIMMER) CK 56 26 - 192 IU/L [facility] Blood 11/05/2023 1:32 AM MACHINE LEATHER TRIMMER 11/05/2023 1:32 AM MACHINE LEATHER TRIMMER Devin Dougherty MD LABORATORY Performing Organization Address [facility] de Phone Number [facility] [address] [address] * PTT (APTT) (11/05/2023 1:32 AM MACHINE LEATHER TRIMMER) Only the most recent of2 resultswithin the time period is included. APTT 26.0 25.0 - 37.0 sec [facility] Blood 11/05/2023 1:32 AM MACHINE LEATHER TRIMMER 11/05/2023 1:32 AM MACHINE LEATHER TRIMMER Devin Dougherty MD LABORATORY Performing Organization Address [facility] Co de Phone Number [facility] [address] [address] * (ABNORMAL) TROP 2H (11/05/2023 1:18 AM MACHINE LEATHER TRIMMER) 2H Trop 18(H) <=14 ng/L [facility] 2H Delta Indeterminate Not Significant [facility] Blood 11/05/2023 1:18 AM MACHINE LEATHER TRIMMER 11/05/2023 1:45 AM MACHINE LEATHER TRIMMER Devin Dougherty MD LABORATORY Performing Organization Address [facility] Co de Phone Number [facility] [address] [address] * LACTATE (LACTIC ACID) (11/05/2023 1:18 AM MACHINE LEATHER TRIMMER) Only the most recent of2 resultswithin the time period is included. Lactate 1.9 0.7 - 2.1 mmol/L [facility] Blood 11/05/2023 1:18 AM MACHINE LEATHER TRIMMER 11/05/2023 1:27 AM MACHINE LEATHER TRIMMER Narrative [facility] - 11/05/2023 1:45 AM MACHINE LEATHER TRIMMER Send specimen on ice! Devin Dougherty MD LABORATORY Performing Organization Address [facility] Co de Phone Number [address] [address] * CALCIUM,IONIZED (11/05/2023 1:18 AM MACHINE LEATHER TRIMMER) PH 7.37 7.32 - 7.42 [facility] ICA, Actual 4.82 4.40 - 5.20 mg/dL [facility] ICA, pH Corrected 4.75 4.40 - 5.20 mg/dL [facility] Blood 11/05/2023 1:18 AM MACHINE LEATHER TRIMMER 11/05/2023 1:27 AM MACHINE LEATHER TRIMMER Narrative [facility] - 11/05/2023 1:44 AM MACHINE LEATHER TRIMMER Send specimen on ice! Devin Dougherty MD LABORATORY Performing Organization Address [facility] Co de Phone Number [address] [address] * CT HEAD-NECK - ANGIO - W/IV CON (11/05/2023 12:09 AM MACHINE LEATHER TRIMMER) Anatomical Region Laterality Modality Skull Computed Tomogra phy 11/05/2023 12:2 1 AM MACHINE LEATHER TRIMMER Impressions 11/05/2023 10:22 AM MACHINE LEATHER TRIMMER Impression: ?? Slightly increased size of the [...] Fernández Resident: Laith Berkowitz 11/05/2023 10:22 AM MACHINE LEATHER TRIMMER CT angiogram of the Head with contrast, [...] and reviewed by the Radiologist using the [facility] workstation, and these images were archived in [...] and reviewed by the Radiologist using the [facility] workstation,and these images were archived in the [...] NEURO * (ABNORMAL) URINALYSIS,TOTAL (11/04/2023 11:55 PM MACHINE LEATHER TRIMMER) Color COLORLESS YELLOW [facility] Appearance CLEAR CLEAR [facility] Urine Glucose 100(A) NEGATIVE mg/dL [facility] Bili UA NEGATIVE NEGATIVE [facility] Ketones NEGATIVE NEGATIVE [facility] Specific Perry 1.036(A) 1.003 - 1.030 [facility] Blood Ur NEGATIVE Neg-Trace [facility] PH Urine 7.5(H) 5.0 - 7.0 [facility] Protein Ur TRACE Neg-Trace [facility] Urobilinogen NORMAL NORMAL EU/dL [facility] Nitrite Ur NEGATIVE NEGATIVE [facility] Leuk Est NEGATIVE Neg-Trace [facility] WBC Ur 0-5 0 - 5 perHPF [facility] RBC Ur 0-3 0 - 3 perHPF [facility] SQ EPITH 0-5 0 - 5 perHPF [facility] Urinalysis Performed at: [facility] Urine 11/04/2023 11:5 5 PM MACHINE LEATHER TRIMMER 11/05/2023 12:03 AM MACHINE LEATHER TRIMMER Devin Dougherty MD LABORATORY [facility] [address] [place] [phone] * PF INSERT CATH,ART,PERCUT,SHORTTERM (11/04/2023 11:43 PM MACHINE LEATHER TRIMMER) Narrative Rito Graf MD - 11/04/2023 11:43 PM MACHINE LEATHER TRIMMER Priscilla Holcomb MD ? 11/04/2023 11:44 PM Arterial Line Performed by: Priscilla Holcomb MD Authorized by: Rito Graf MD ?? Consent: ??Consent obtained: ??Verbal ??Consent given by: ??Patient ??Risks discussed: ??Pain, bleeding and infection [place] protocol: ??Patient identity confirmed: ??Verbally with patient, [...] * ED EKG (12-LEAD) (11/04/2023 11:25 PM MACHINE LEATHER TRIMMER) 11/04/2023 11:2 5 PM MACHINE LEATHER TRIMMER Impressions [facility]IS EKG ORDERS - 11/04/2023 11:25 PM MACHINE LEATHER TRIMMER SINUS TACHYCARDIA RIGHT BUNDLE BRANCH BLOCK ??[120+ ms QRS DURATION, UPRIGHT V1, 40+ ms S IN I/aVL/V4/V5/V6] ABNORMAL ECG P-R Interval 173 ms QRS Interval 127 ms QT Interval 395 ms QTC Interval 458 ms P [place] 57 QRS [place] 34 T Wave [place] 43 Narrative Procedure Note Vineet Díaz MD - 11/05/2023 IMPRESSION SINUS TACHYCARDIA RIGHT BUNDLE BRANCH BLOCK [120+ ms QRS DURATION, UPRIGHT V1, 40+ ms S INI/aVL/V4/V5/V6] ABNORMAL ECG P-R Interval 173 ms QRS Interval 127 ms QT Interval 395 ms QTC Interval 458 ms P [place] 57 QRS [place] 34 T Wave [place] 43 Devin Dougherty MD EKG [facility] * CT SPINE THORACIC NO IV CON (11/04/2023 11:05 PM MACHINE LEATHER TRIMMER) Anatomical Region Laterality Modality Thoracic Spine Computed Tomogra phy 11/04/2023 11:2 3 PM MACHINE LEATHER TRIMMER Impressions 11/05/2023 9:22 AM MACHINE LEATHER TRIMMER Impression: 1. No suspected acute fracture or dislocation of the thoracic or lumbar spine. ?? 2. Eisp-vt-phexqcph lumbar spondylosis without suspected high-grade spinal canal or neural foraminal narrowing. I have personally reviewed the image(s) and initial interpretation, and I agree with the findings as documented by the resident/fellow. Reading Radiologist: Ford Fernández Resident: Laith eBrkowitz 11/05/2023 9:22 AM MACHINE LEATHER TRIMMER Exam: Thoracic and Lumbar Spine CT Reconstructions, [...] dislocation of the thoracic or lumbarspine. 2. Inlk-ee-lymamocq lumbar spondylosis without suspected high-grade spinalcanal or neural foraminal narrowing. I have personally reviewed the image(s) and initial interpretation, and Iagree with the findings as documented by the resident/fellow. Reading Radiologist: Ford Fernández Resident: Laith Berkowitz Devin Dougherty MD RAD CT NEURO * CT SPINE LUMBAR NO IV CON (11/04/2023 11:05 PM MACHINE LEATHER TRIMMER) Anatomical Region Laterality Modality Lumbar Spine Computed Tomogra phy 11/04/2023 11:2 3 PM MACHINE LEATHER TRIMMER Impressions 11/05/2023 9:22 AM MACHINE LEATHER TRIMMER Impression: 1. No suspected acute fracture or dislocation of the thoracic or lumbar spine. ?? 2. Uvca-wb-itnhxkoq lumbar spondylosis without suspected high-grade spinal canal or neural foraminal narrowing. I have personally reviewed the image(s) and initial interpretation, and I agree with the findings as documented by the resident/fellow. Reading Radiologist: Ford Fernández Resident: Laith Berkowitz Narrative 11/05/2023 9:22 AM MACHINE LEATHER TRIMMER Exam: Thoracic and Lumbar Spine CT Reconstructions, [...] dislocation of the thoracic or lumbarspine. 2. Syxt-az-uhgfrqpt lumbar spondylosis without suspected high-grade spinalcanal or neural foraminal narrowing. I have personally reviewed the image(s) and initial interpretation, and Iagree with the findings as documented by the resident/fellow. Reading Radiologist: Ford Fernández Resident: Laith Berkowitz Devin Dougherty MD RAD CT NEURO * CT SPINE CERVICAL NO IV CON (11/04/2023 11:05 PM MACHINE LEATHER TRIMMER) Anatomical Region Laterality Modality Cervical Spine Computed Tomogra phy 11/04/2023 11:2 0 PM MACHINE LEATHER TRIMMER Impressions 11/05/2023 8:27 AM MACHINE LEATHER TRIMMER Impression: ?? 1. No acute fracture or traumatic subluxation of the cervical vertebrae. 2. Mild degenerative changes of the cervical spine without high-grade spinal canal or neural foraminal narrowing. I have personally reviewed the image(s) and initial interpretation, and I agree with the findings as documented by the resident/fellow. Reading Radiologist: Ford Fernández Resident: Laith Berkowitz Narrative 11/05/2023 8:27 AM MACHINE LEATHER TRIMMER Exam: Cervical spine CT without contrast, 11/04/2023 [...] spinal canal narrowing. C5-6: Mild left and enai-ps-hdgcgcdy right neural foraminal narrowing. Borderline mild spinal [...] spinal canal narrowing. C5-6: Mild left and zvcj-lw-eicumpzj right neural foraminal narrowing.Borderline mild spinal canal [...] CT CHEST/ABD/PELVIS W/IV CONT (11/04/2023 11:05 PM MACHINE LEATHER TRIMMER) Anatomical Region Laterality Modality Chest Computed Tomogra phy 11/04/2023 11:2 9 PM MACHINE LEATHER TRIMMER Impressions 11/05/2023 6:33 AM MACHINE LEATHER TRIMMER Impression: 1. No acute traumatic sequelae in [...] Resident: Laith Berkowitz Narrative 11/05/2023 6:33 AM MACHINE LEATHER TRIMMER Comparison: None Indication: Trauma (STAB) ?? Technique: [...] ED CHEMISTRY LABS(NA,K,CL,CO2,GLU,CREAT,CA-IONIZED,ANION GAP) (11/04/2023 10:48 PM MACHINE LEATHER TRIMMER) Sodium 144 135 - 148 mEq/L [facility] Chloride 106 92 - 108 mEq/L [facility] AnGap 11 8 - 16 mEq/L [facility] Glucose 234(H) 70 - 100 mg/dL [facility] ICA, Actual 4.52 4.40 - 5.20 mg/dL [facility] ICA, pH Corrected 4.51 4.40 - 5.20 mg/dL [facility] Creatinine 0.81 0.50 - 1.00 mg/dL [facility] BICARB 27(H) 22 - 26 mEq/L [facility] eGFR (2020 CKD-EPI) 73 >=60 ml/min/1.7 3m2 [facility] Comment: The estimated glomerular filtration rate (eGFR) was calculated using the CKD-EPI 2020 creatinine equation, which does not include race as a factor. This equation is validated in individuals 18 years of age and older, and eGFR is normalized to a body surface area of 1.73m^2. Potassium 2.8(AA) 3.5 - 5.3 mEq/L [facility] Comment:Critcal Result Low Blood 11/04/2023 10:4 8 PM MACHINE LEATHER TRIMMER 11/04/2023 10:49 PM MACHINE LEATHER TRIMMER Narrative [facility] - 11/04/2023 10:55 PM MACHINE LEATHER TRIMMER Critical value for Potassium called to and read back by Rafa Hutchins RN in ??EDSTAB 2 at 11/04/2023 22:55:31 MACHINE LEATHER TRIMMER by Eleni Spring MLS. Devin Dougherty MD LABORATORY Performing Organization Address [facility] Co de Phone Number [facility] [address] [address] * (ABNORMAL) ED HEMOGLOBIN TOTAL (ED ONLY) (11/04/2023 10:48 PM MACHINE LEATHER TRIMMER) [facility] Hgb 10.3(L) 11.5 - 15.7 g/dL [facility] Blood 11/04/2023 10:4 8 PM MACHINE LEATHER TRIMMER 11/04/2023 10:49 PM MACHINE LEATHER TRIMMER Devin Dougherty MD LABORATORY Performing Organization Address [facility] Co de Phone Number [address] [address] * ED INR (11/04/2023 10:45 PM MACHINE LEATHER TRIMMER) [facility] ED INR 1.0 0.8 - 1.1 [facility] Comment: Warfarin Therapeutic Range: Standard Intensity: 2.0 - 3.0 High Intensity: 2.5 - 3.5 Blood 11/04/2023 10:4 5 PM MACHINE LEATHER TRIMMER 11/04/2023 10:48 PM MACHINE LEATHER TRIMMER Devin Dougherty MD LABORATORY Performing Organization Address [facility] Co de Phone Number [address] [address] * EXTRA TUBE - LIGHT GREEN (11/04/2023 10:45 PM MACHINE LEATHER TRIMMER) Pathologist [facility] LIGHT GREEN TUBE Stored [facility] Comment:Green tubes ([place] Heparin) are stored in the lab for 3 days from the collection date. Blood 11/04/2023 10:4 5 PM MACHINE LEATHER TRIMMER 11/04/2023 10:50 PM MACHINE LEATHER TRIMMER Devin Dougherty MD LABORATORY Performing Organization Address City/[facility] Co de Phone Number [facility] [address] [address] * EXTRA TUBE - SST (11/04/2023 10:45 PM MACHINE LEATHER TRIMMER) SST TUBE Stored [facility] Comment:SST tubes (Serum Sep arator) are stored in the lab for 3 days from the collection date. Blood 11/04/2023 10:4 5 PM MACHINE LEATHER TRIMMER 11/04/2023 10:50 PM MACHINE LEATHER TRIMMER Devin Dougherty MD LABORATORY Performing Organization Address [facility] Co de Phone Number [facility] [address] [address] * HS TROPONIN (11/04/2023 10:45 PM MACHINE LEATHER TRIMMER) Pathologist [facility] HS Troponin I 10 <=14 ng/L [facility] Blood 11/04/2023 10:4 5 PM MACHINE LEATHER TRIMMER 11/04/2023 11:05 PM MACHINE LEATHER TRIMMER Narrative [facility] - 11/04/2023 11:36 PM MACHINE LEATHER TRIMMER First Occurrence of the Troponin order is to be drawn Stat by Nursing staff on the unit. Devin Dougherty MD LABORATORY Performing Organization Address [facility] Co de Phone Number [facility] [address] [address] * (ABNORMAL) CBC WITH PLTS/AUTO DIFF (11/04/2023 10:45 PM MACHINE LEATHER TRIMMER) WBC 9.42 4.00 - 10.00 k/cmm [facility] RBC 3.86(L) 3.90 - 5.20 m/cmm [facility] Hgb 9.8(L) 11.5 - 15.7 g/dL [facility] Hematocrit 31.8(L) 34.0 - 45.0 % [facility] MCV 82.4 80.0 - 100.0 fL [facility] MCH 25.4 25.0 - 32.0 pg [facility] MCHC 30.8(L) 31.0 - 36.0 g/dL [facility] RDW 15.3(H) 11.5 - 14.5 % [facility] Plt 292 150 - 400 k/cmm [facility] MPV 11.1 6.5 - 12.5 fL [facility] Automated Abs Neutrophil 5.80 1.70 - 6.50 k/cmm [facility] Comment:Preliminary ANC, Fin al Result to Follow Abs Immature Granulocyte 0.07 0.00 - 0.09 k/cmm [facility] Comment:The Immature Granulo cyte Absolute count contains metamyelocytes and myelocytes. Abs Neutrophil 5.80 1.70 - 6.50 k/cmm [facility] Abs Lymphocyte 2.33 0.80 - 4.00 k/cmm [facility] Abs Monocyte 0.88 0.20 - 1.00 k/cmm [facility] Abs Eosinophil 0.27 0.00 - 0.60 k/cmm [facility] Abs Basophil 0.07 0.00 - 0.20 k/cmm [facility] Blood 11/04/2023 10:4 5 PM MACHINE LEATHER TRIMMER 11/04/2023 11:05 PM MACHINE LEATHER TRIMMER Devin Dougherty MD LABORATORY Performing Organization Address [facility] Co de Phone Number [facility] [address] [address] * PRECAUTIONARY TUBE (11/04/2023 10:45 PM MACHINE LEATHER TRIMMER) Prec Tube Precautionary Blood Bank Specimen Received. [facility] Blood 11/04/2023 10:4 5 PM MACHINE LEATHER TRIMMER 11/04/2023 10:52 PM MACHINE LEATHER TRIMMER Devin Dougherty MD LAB TRANSFUSION SER VICES Performing Organization Address City/[facility]/ZIP Co de Phone Number [facility] [address] [address] * (ABNORMAL) ANTI XA HEPARIN UNFRACTIONATED (11/04/2023 10:45 PM MACHINE LEATHER TRIMMER) Anti XA Hep U <0.04(L) 0.30 - 0.70 IU/mL [facility] [facility] Blood 11/04/2023 10:4 5 PM MACHINE LEATHER TRIMMER 11/04/2023 11:05 PM MACHINE LEATHER TRIMMER Devin Dougherty MD LABORATORY [facility] [address] [address] * ED US CRITICAL CARE (11/04/2023 10:40 PM MACHINE LEATHER TRIMMER) Anatomical Region Laterality Modality Ultrasound Narrative 11/04/2023 11:28 PM MACHINE LEATHER TRIMMER ED Trauma eFAST Ultrasound Indications: Suspicion of [...] Advance Directives For more information, please contact: [phone] Latest Code Status on File Code Status [...] Code Status With Whom? Patient Care Teams Skull Splitter Relationship Specialty Start Date End Date Eloise Reeves DO [address] [place] [address] PCP - General Family Medicine 11/06/23
--- OUTSIDE RECORDS SUMMARY | 2023-12-10 14:34 | XMS_ITS | Encounter Summary ---
Author Name Unknown Organization [facility] Address [address] [place] [address] Phone Care Team Providers Care Telemarketing Agent Name Role Phone Eloise Reeves DO Primary Care Provider Reason for Visit * Reason Comments Referral TBI * Consult/Test/Treat (Routine) - Closed Specialty Diagnoses / Procedures Referred By Contac t Referred To Contact Physical Medicine and Rehab / PHYSICAL MEDICINE AND REHAB Diagnoses Fall, initial encounter SDH (subdural hematoma) ([facility]) SAH (subarachnoid hemorrhage) ([facility]) Traumatic brain injury with loss of consciousness, initial encounter ([facility]) Jesusita Aiken, TAMMIE, SOFTWARE SALES REPRESENTATIVE [address] [place] [address] Csc Pm&R Cl [address] [place] [id number] Referral ID Status Reason Start Date Expiration Date Visits Re quested Visits Authorized [id number] Closed 11/08/2023 11/07/2024 1 1 Encounter Details Date Type Department Care Team (Latest Contact Info) Description 11/27/2023 1:00 PM RAILROAD DINING CAR STEWARD/STEWARDESS [facility] [address] [address] Leidy Velazquez PA-C [address] [address] Mild traumatic brain injury, with [...] Coronavirus/COVID-19? No / Unsure 11/04/2023 10:48 PM RAILROAD DINING CAR STEWARD/STEWARDESS documented as of this encounter Last Filed Vital Signs Vital Sign Reading Time Taken Comments Blood Pressure 108/71 11/27/2023 12:54 PM RAILROAD DINING CAR STEWARD/STEWARDESS Pulse 74 11/27/2023 12:54 PM RAILROAD DINING CAR STEWARD/STEWARDESS Temperature - - Respiratory Rate - - Oxygen Saturation - - Inhaled Oxygen Concentration - - Weight 61.6 kg (135 lb 12.8 oz) 024 12:54 PM RAILROAD DINING CAR STEWARD/STEWARDESS Height - - Body Mass Index 28.38 11/05/2023 12:03 AM RAILROAD DINING CAR STEWARD/STEWARDESS documented in this encounter Patient Instructions * Patient Instructions* Leidy Velazquez PA-C - 11/27/2023 1:00 PM RAILROAD DINING CAR STEWARD/STEWARDESS You were seen at [facility] [place] for traumatic brain injury. You have been [...] you do not hear from them, call [phone] to schedule Psychiatry for mood changes, this is for evaluation and treatment recommendations that may include medication. You will need to call to schedule this appointment. Please call [phone] and inform them you have a referral [...] to your scheduled appointment by calling at [phone]. If you miss three or more appointments, [...] plan ahead. Paperwork can be faxed to [phone]. Brain Injury and Physical Medicine & Rehabilitation Contact List Lista de contactos de lesiones cerebrales traum??rochelle, medicina f??gricelda y rehabilitaci??ora Ibrahim Maskxada jenn Jiménez [employer] Phone To Schedule Appointments Para programar citas Hadii aad dooneeyso inaad norman sameeysato They make appointments for your doctor in the TBI/PMR clinic and your therapists [phone] Staff Nurse Nicolas carney??kirti Davalos Call for questions about medications, symptoms, or paperwork issues You can fax paperwork to [phone]. [phone] Health Information Management (HIM)/Medical Records Registros medic[facility] Asuh Holloway Contact them if you need copies of your medical records at [facility]. If you work with a [facility] they shouldcontact [facility] for their updates. You can also visit them on Blue 1. They are open Sunday-Sunday. If you need a form for Authorization to Release Health Information, you may request one at an appointment or download a form online at: [email or web address] [phone] Patient Billing/ Financial Assistance Facturaci??n Ellie Saunders/Meli duran If you have questions or problems with your medical bills. Financial assistance, insurance issues, or for more information about your medical bill. [phone] Community Resources: The [place] [facility] offers resource facilitation at [email or web address]. Online courses [...] please call the TBI nurse at . ROAD DINING CAR STEWARD/STEWARDESS documented in this encounter Progress Notes * Leidy Velazquez PA-C - 11/27/2023 1:00 PM CST [place], [place] [id number] [place] [address]#: [id number] PATIENT: Lucinda Casas : 1940 DATE OF [...] including pre-visit review of separately obtained history, [id number] interaction performing medically appropriate physical exam, patient [...] including pre-visit review of separately obtained history, [id number]-[id number] interaction performing medically appropriate physical exam, patient counseling/education, interpretation of diagnostic results, care coordination and documentation. External records reviewed through care everywhere, [facility] documentation reviewed for information regarding injury. History collected through review of records, in addition to patient report. 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
--- OUTSIDE RECORDS SUMMARY | 2023-12-10 14:34 | XMS_ITS | Referral Summary ---
Author Name Unknown Organization [facility] Address [address] [place] [address] Phone Care Team Providers Care Computer Programmer Name Role Phone Eloise Reeves Sushil BUSBY Primary Care Provider [phone] Source Comments [employer] is fully rolled out on [employer]. Last update 04/02/09.[facility] Encounters Date Type Department Care Team Description 11/27/2023 1:00 PM SENIOR PRODUCT INTEGRITY ENGINEER [facility] [address] [address] Leidy Velazquez, PAElodiaC Mild traumatic brain injury, with loss of consciousness of 30 minutes or less, initial encounter ([facility]) (Primary Dx); Reversed sleep wake cycle; Lack of appetite Discharge Disposition: Discharged to home or self care (routine discharge) 11/04/2023 10:39 PM SENIOR PRODUCT INTEGRITY ENGINEER - 11/16/2023 9:19 AM SENIOR PRODUCT INTEGRITY ENGINEER Hospital Encounter [facility] Surgery/Trauma/Kimmie ro [address] [place] [address] Devin Dougherty MD Petrun, Branden, MD [place], [...] Comments Blood Pressure 108/71 11/27/2023 12:54 PM SENIOR PRODUCT INTEGRITY ENGINEER Pulse 74 11/27/2023 12:54 PM SENIOR PRODUCT INTEGRITY ENGINEER Temperature 36.6 ??C (97.8 ??F) 11/16/2023 4:25 AM CS T Respiratory Rate 16 11/16/2023 4:25 AM SENIOR PRODUCT INTEGRITY ENGINEER Oxygen Saturation 90% 11/16/2023 4:25 AM SENIOR PRODUCT INTEGRITY ENGINEER Inhaled Oxygen Concentration - - Weight 61.6 kg (135 lb 12.8 oz) 024 12:54 PM SENIOR PRODUCT INTEGRITY ENGINEER Height 147.3 cm (4' 10) 11/05/2023 12: 03 AM SENIOR PRODUCT INTEGRITY ENGINEER Body Mass Index 28.38 11/05/2023 12:03 AM SENIOR PRODUCT INTEGRITY ENGINEER Plan of Treatment Not on file Procedures Procedure Name Priority Date/Time Associated Diagnosis Comments PANEL BASIC METABOLIC (BMP) Routine 11/16/2023 7:22 AM SENIOR PRODUCT INTEGRITY ENGINEER POC GLUCOSE Routine 11/16/2023 6:58 AM SENIOR PRODUCT INTEGRITY ENGINEER POC GLUCOSE Routine 11/15/2023 9:15 PM SENIOR PRODUCT INTEGRITY ENGINEER POC GLUCOSE Routine 11/15/2023 4:09 PM SENIOR PRODUCT INTEGRITY ENGINEER POC GLUCOSE Routine 11/15/2023 12:46 PM SENIOR PRODUCT INTEGRITY ENGINEER PANEL BASIC METABOLIC (BMP) Routine 11/15/2023 7:39 AM SENIOR PRODUCT INTEGRITY ENGINEER POC GLUCOSE Routine 11/15/2023 6:11 AM SENIOR PRODUCT INTEGRITY ENGINEER POC GLUCOSE Routine 11/14/2023 9:02 PM SENIOR PRODUCT INTEGRITY ENGINEER POC GLUCOSE Routine 11/14/2023 4:21 PM SENIOR PRODUCT INTEGRITY ENGINEER POC GLUCOSE Routine 11/14/2023 12:19 PM SENIOR PRODUCT INTEGRITY ENGINEER PANEL BASIC METABOLIC (BMP) Routine 11/14/2023 8:59 AM SENIOR PRODUCT INTEGRITY ENGINEER POC GLUCOSE Routine 11/14/2023 8:11 AM SENIOR PRODUCT INTEGRITY ENGINEER POC GLUCOSE Routine 11/13/2023 9:15 PM SENIOR PRODUCT INTEGRITY ENGINEER POC GLUCOSE Routine 11/13/2023 4:03 PM SENIOR PRODUCT INTEGRITY ENGINEER POC GLUCOSE Routine 11/13/2023 11:21 AM SENIOR PRODUCT INTEGRITY ENGINEER PANEL BASIC METABOLIC (BMP) Routine 11/13/2023 6:41 AM SENIOR PRODUCT INTEGRITY ENGINEER POC GLUCOSE Routine 11/13/2023 6:31 AM SENIOR PRODUCT INTEGRITY ENGINEER POC GLUCOSE Routine 11/12/2023 9:21 PM SENIOR PRODUCT INTEGRITY ENGINEER POC GLUCOSE Routine 11/12/2023 4:12 PM SENIOR PRODUCT INTEGRITY ENGINEER PANEL BASIC METABOLIC (BMP) Timed 11/12/2023 1:01 PM SENIOR PRODUCT INTEGRITY ENGINEER POC GLUCOSE Routine 11/12/2023 12:14 PM SENIOR PRODUCT INTEGRITY ENGINEER POC GLUCOSE Routine 11/12/2023 6:09 AM SENIOR PRODUCT INTEGRITY ENGINEER POC GLUCOSE Routine 11/11/2023 8:48 PM SENIOR PRODUCT INTEGRITY ENGINEER POC GLUCOSE Routine 11/11/2023 4:11 PM SENIOR PRODUCT INTEGRITY ENGINEER POC GLUCOSE Routine 11/11/2023 11:47 AM SENIOR PRODUCT INTEGRITY ENGINEER PHOSPHORUS Routine 11/11/2023 6:09 AM SENIOR PRODUCT INTEGRITY ENGINEER PANEL BASIC METABOLIC (BMP) Routine 11/11/2023 6:09 AM SENIOR PRODUCT INTEGRITY ENGINEER MAGNESIUM Routine 11/11/2023 6:09 AM SENIOR PRODUCT INTEGRITY ENGINEER TC LAB BLOOD DRAW BY VENIPUNCTURE Routine 11/11/2023 6:09 AM SENIOR PRODUCT INTEGRITY ENGINEER POC GLUCOSE Routine 11/10/2023 8:58 PM SENIOR PRODUCT INTEGRITY ENGINEER POC GLUCOSE Routine 11/10/2023 4:16 PM SENIOR PRODUCT INTEGRITY ENGINEER POC GLUCOSE Routine 11/10/2023 11:15 AM SENIOR PRODUCT INTEGRITY ENGINEER PHOSPHORUS Routine 11/10/2023 6:17 AM SENIOR PRODUCT INTEGRITY ENGINEER PANEL BASIC METABOLIC (BMP) Routine 11/10/2023 6:17 AM SENIOR PRODUCT INTEGRITY ENGINEER MAGNESIUM Routine 11/10/2023 6:17 AM SENIOR PRODUCT INTEGRITY ENGINEER PC LAB CBC/PLT Routine 11/10/2023 6:17 AM SENIOR PRODUCT INTEGRITY ENGINEER POC GLUCOSE Routine 11/09/2023 9:41 PM SENIOR PRODUCT INTEGRITY ENGINEER POC GLUCOSE Routine 11/09/2023 3:58 PM SENIOR PRODUCT INTEGRITY ENGINEER ANTI XA ASSAY LMW HEPARIN Timed 11/09/2023 2:18 PM SENIOR PRODUCT INTEGRITY ENGINEER POC GLUCOSE Routine 11/09/2023 11:28 AM SENIOR PRODUCT INTEGRITY ENGINEER XR FOOT RIGHT 3 V AP/OBL/LAT* Routine 11/09/2023 10:36 AM SENIOR PRODUCT INTEGRITY ENGINEER TELEMETRY STRIPS 11/09/2023 8:48 AM SENIOR PRODUCT INTEGRITY ENGINEER POC GLUCOSE Routine 11/09/2023 5:46 AM SENIOR PRODUCT INTEGRITY ENGINEER PC VALPROIC ACID LEVEL DEPAHOTE Routine 11/09/2023 5:41 AM SENIOR PRODUCT INTEGRITY ENGINEER PHOSPHORUS Routine 11/09/2023 5:41 AM SENIOR PRODUCT INTEGRITY ENGINEER PANEL BASIC METABOLIC (BMP) Routine 11/09/2023 5:41 AM SENIOR PRODUCT INTEGRITY ENGINEER MAGNESIUM Routine 11/09/2023 5:41 AM SENIOR PRODUCT INTEGRITY ENGINEER PC LAB CBC/PLT Routine 11/09/2023 5:41 AM SENIOR PRODUCT INTEGRITY ENGINEER TELEMETRY STRIPS 11/09/2023 1:21 AM SENIOR PRODUCT INTEGRITY ENGINEER POC GLUCOSE Routine 11/08/2023 8:40 PM SENIOR PRODUCT INTEGRITY ENGINEER TELEMETRY STRIPS 11/08/2023 7:31 PM SENIOR PRODUCT INTEGRITY ENGINEER PHOSPHORUS Routine 11/08/2023 4:20 PM SENIOR PRODUCT INTEGRITY ENGINEER MAGNESIUM Routine 11/08/2023 4:20 PM SENIOR PRODUCT INTEGRITY ENGINEER PANEL BASIC METABOLIC (BMP) Routine 11/08/2023 4:20 PM SENIOR PRODUCT INTEGRITY ENGINEER TC LAB BLOOD DRAW BY VENIPUNCTURE Routine 11/08/2023 4:20 PM SENIOR PRODUCT INTEGRITY ENGINEER POC GLUCOSE Routine 11/08/2023 3:56 PM SENIOR PRODUCT INTEGRITY ENGINEER POC GLUCOSE Routine 11/08/2023 11:03 AM SENIOR PRODUCT INTEGRITY ENGINEER TELEMETRY STRIPS 11/08/2023 9:49 AM SENIOR PRODUCT INTEGRITY ENGINEER XR CHEST 1 VIEW AP OR PA* Routine 11/08/2023 6:30 AM SENIOR PRODUCT INTEGRITY ENGINEER POC GLUCOSE Routine 11/08/2023 6:22 AM SENIOR PRODUCT INTEGRITY ENGINEER TELEMETRY STRIPS 11/08/2023 2:59 AM SENIOR PRODUCT INTEGRITY ENGINEER POC GLUCOSE Routine 11/07/2023 9:34 PM SENIOR PRODUCT INTEGRITY ENGINEER TELEMETRY STRIPS 11/07/2023 7:31 PM SENIOR PRODUCT INTEGRITY ENGINEER POC GLUCOSE Routine 11/07/2023 4:06 PM SENIOR PRODUCT INTEGRITY ENGINEER POC GLUCOSE Routine 11/07/2023 11:45 AM SENIOR PRODUCT INTEGRITY ENGINEER XR CHEST 2 VIEWS PA + LAT* Routine 11/07/2023 10:07 AM SENIOR PRODUCT INTEGRITY ENGINEER TELEMETRY STRIPS 11/07/2023 9:29 AM SENIOR PRODUCT INTEGRITY ENGINEER PC PROCALCITONIN (PCT) Routine 8:34 AM SENIOR PRODUCT INTEGRITY ENGINEER PC LAB CBC/PLT Routine 11/07/2023 8:34 AM SENIOR PRODUCT INTEGRITY ENGINEER PANEL BASIC METABOLIC (BMP) Routine 11/07/2023 8:34 AM SENIOR PRODUCT INTEGRITY ENGINEER MAGNESIUM Routine 11/07/2023 8:34 AM SENIOR PRODUCT INTEGRITY ENGINEER PHOSPHORUS Routine 11/07/2023 8:34 AM SENIOR PRODUCT INTEGRITY ENGINEER POC GLUCOSE Routine 11/07/2023 5:45 AM SENIOR PRODUCT INTEGRITY ENGINEER TELEMETRY STRIPS 11/07/2023 1:07 AM SENIOR PRODUCT INTEGRITY ENGINEER POC GLUCOSE Routine 11/06/2023 9:21 PM SENIOR PRODUCT INTEGRITY ENGINEER TELEMETRY STRIPS 11/06/2023 4:28 PM SENIOR PRODUCT INTEGRITY ENGINEER PC GASES,BLOOD,ANY COMB OF PH,PCD2,PO2,CO2,HCO2 Routine 11/06/2023 1:06 PM SENIOR PRODUCT INTEGRITY ENGINEER MAGNESIUM Timed 11/06/2023 1:06 PM SENIOR PRODUCT INTEGRITY ENGINEER PHOSPHORUS Timed 11/06/2023 1:06 PM SENIOR PRODUCT INTEGRITY ENGINEER PANEL BASIC METABOLIC (BMP) Timed 11/06/2023 1:06 PM SENIOR PRODUCT INTEGRITY ENGINEER PC LAB CBC/PLT Timed 11/06/2023 1:06 PM SENIOR PRODUCT INTEGRITY ENGINEER POC GLUCOSE Routine 11/06/2023 1:04 PM SENIOR PRODUCT INTEGRITY ENGINEER POC GLUCOSE Routine 11/06/2023 10:49 AM SENIOR PRODUCT INTEGRITY ENGINEER TELEMETRY STRIPS 11/06/2023 8:49 AM SENIOR PRODUCT INTEGRITY ENGINEER PC LAB GLYCOSYLATED HGB Routine 11/06/2023 6:31 AM SENIOR PRODUCT INTEGRITY ENGINEER PROTHROMBIN (PT) & INR Timed 6:31 AM SENIOR PRODUCT INTEGRITY ENGINEER PC PHOSPHORUS INORGANIC(PHOSPHATE) Routine 11/06/2023 6:31 AM SENIOR PRODUCT INTEGRITY ENGINEER PC MAGNESIUM, SERUM Routine 11/06/2023 6 :31 AM SENIOR PRODUCT INTEGRITY ENGINEER PC LAB CBC/PLT Routine 11/06/2023 6:31 AM SENIOR PRODUCT INTEGRITY ENGINEER TC LAB BLOOD DRAW BY VENIPUNCTURE Routine 11/06/2023 6:31 AM SENIOR PRODUCT INTEGRITY ENGINEER POC GLUCOSE Routine 11/06/2023 5:39 AM SENIOR PRODUCT INTEGRITY ENGINEER TELEMETRY STRIPS 11/06/2023 1:52 AM SENIOR PRODUCT INTEGRITY ENGINEER POC GLUCOSE Routine 11/05/2023 4:54 PM SENIOR PRODUCT INTEGRITY ENGINEER MAGNESIUM Routine 11/05/2023 4:48 PM SENIOR PRODUCT INTEGRITY ENGINEER POTASSIUM Routine 11/05/2023 4:48 PM SENIOR PRODUCT INTEGRITY ENGINEER CT HEAD NO IV CONTRAST Timed 11:44 AM SENIOR PRODUCT INTEGRITY ENGINEER POC GLUCOSE Routine 11/05/2023 11:11 AM SENIOR PRODUCT INTEGRITY ENGINEER TELEMETRY STRIPS 11/05/2023 9:25 AM SENIOR PRODUCT INTEGRITY ENGINEER EKG ADULT (12-LEAD) Routine 11/05/2023 6 :38 AM SENIOR PRODUCT INTEGRITY ENGINEER POC GLUCOSE Routine 11/05/2023 6:07 AM SENIOR PRODUCT INTEGRITY ENGINEER CT HEAD NO IV CONTRAST Timed 4:54 AM SENIOR PRODUCT INTEGRITY ENGINEER PROTHROMBIN (PT) & INR Timed 4:27 AM SENIOR PRODUCT INTEGRITY ENGINEER PC PHOSPHORUS INORGANIC(PHOSPHATE) Routine 11/05/2023 4:27 AM SENIOR PRODUCT INTEGRITY ENGINEER PC MAGNESIUM, SERUM Routine 11/05/2023 4 :27 AM SENIOR PRODUCT INTEGRITY ENGINEER PC GASES,BLOOD,ANY COMB OF PH,PCD2,PO2,CO2,HCO2 Routine 11/05/2023 4:27 AM SENIOR PRODUCT INTEGRITY ENGINEER PC LAB CBC/PLT Routine 11/05/2023 4:27 AM SENIOR PRODUCT INTEGRITY ENGINEER TC LAB BLOOD DRAW BY VENIPUNCTURE Routine 11/05/2023 4:27 AM SENIOR PRODUCT INTEGRITY ENGINEER PC TROPONIN QUANTITATIVE Timed 11/05/2023 4:27 AM SENIOR PRODUCT INTEGRITY ENGINEER PC TROPONIN QUANTITATIVE Timed 11/05/2023 2:58 AM SENIOR PRODUCT INTEGRITY ENGINEER CK, TOTAL STAT 11/05/2023 1:32 AM SENIOR PRODUCT INTEGRITY ENGINEER FIBRINOGEN STAT 11/05/2023 1:32 AM SENIOR PRODUCT INTEGRITY ENGINEER PC LAB PTT STAT 11/05/2023 1:32 AM SENIOR PRODUCT INTEGRITY ENGINEER PANEL HEPATIC FUNCTION STAT 1:32 AM SENIOR PRODUCT INTEGRITY ENGINEER PC LAB CBC/PLT STAT 11/05/2023 1:32 AM SENIOR PRODUCT INTEGRITY ENGINEER PANEL BASIC METABOLIC (BMP) STAT 11/05/2023 1:32 AM SENIOR PRODUCT INTEGRITY ENGINEER MAGNESIUM STAT 11/05/2023 1:32 AM SENIOR PRODUCT INTEGRITY ENGINEER PHOSPHORUS STAT 11/05/2023 1:32 AM SENIOR PRODUCT INTEGRITY ENGINEER PROTHROMBIN (PT) & INR STAT 1:32 AM SENIOR PRODUCT INTEGRITY ENGINEER PC IONIZED,CALCIUM STAT 11/05/2023 1: 18 AM SENIOR PRODUCT INTEGRITY ENGINEER PC LACTATE (LACTIC ACID) STAT 11/05/2023 1:18 AM SENIOR PRODUCT INTEGRITY ENGINEER PC GASES,BLOOD,ANY COMB OF PH,PCD2,PO2,CO2,HCO2 STAT 11/05/2023 1:18 AM SENIOR PRODUCT INTEGRITY ENGINEER PC TROPONIN QUANTITATIVE Timed 11/05/2023 1:18 AM SENIOR PRODUCT INTEGRITY ENGINEER CT HEAD-NECK - ANGIO - W/IV CON STAT 11/05/2023 12:09 AM SENIOR PRODUCT INTEGRITY ENGINEER PC LAB COMPLETE UA STAT 11/04/2023 11 :55 PM SENIOR PRODUCT INTEGRITY ENGINEER PF INSERT CATH,ART,PERCUT,SANTA ERM Routine 11/04/2023 11:43 PM SENIOR PRODUCT INTEGRITY ENGINEER ED EKG (12-LEAD) Routine 11/04/2023 11:2 5 PM SENIOR PRODUCT INTEGRITY ENGINEER CT SPINE LUMBAR NO IV CON STAT 11/04/2023 11:05 PM SENIOR PRODUCT INTEGRITY ENGINEER CT SPINE THORACIC NO IV CON STAT 11/04/2023 11:05 PM SENIOR PRODUCT INTEGRITY ENGINEER CT CHEST/ABD/PELVIS W/IV CONT STAT 11/04/2023 11:05 PM SENIOR PRODUCT INTEGRITY ENGINEER CT SPINE CERVICAL NO IV CON STAT 11/04/2023 11:05 PM SENIOR PRODUCT INTEGRITY ENGINEER CT HEAD NO IV CONTRAST STAT 11:05 PM SENIOR PRODUCT INTEGRITY ENGINEER XR CHEST 1 VIEW AP OR PA* STAT 11/04/2023 10:57 PM SENIOR PRODUCT INTEGRITY ENGINEER TC LAB ER STAT TOTAL HGB STAT 11/04/2023 10:48 PM SENIOR PRODUCT INTEGRITY ENGINEER PC ELECTROLYTES PANEL STAT 11/04/2023 10:48 PM SENIOR PRODUCT INTEGRITY ENGINEER PC HEPARIN ASSAY STAT 11/04/2023 10:4 5 PM SENIOR PRODUCT INTEGRITY ENGINEER EXTRA TUBE - SST Routine 11/04/2023 10:4 5 PM SENIOR PRODUCT INTEGRITY ENGINEER TC LAB BLOOD DRAW BY VENIPUNCTURE Routine 11/04/2023 10:45 PM SENIOR PRODUCT INTEGRITY ENGINEER PC TROPONIN QUANTITATIVE STAT 11/04/2023 10:45 PM SENIOR PRODUCT INTEGRITY ENGINEER PC LAB PTT STAT 11/04/2023 10:45 PM SENIOR PRODUCT INTEGRITY ENGINEER PC LAB ED INR STAT 11/04/2023 10:45 PM SENIOR PRODUCT INTEGRITY ENGINEER PRECAUTIONARY TUBE STAT 11/04/2023 10 :45 PM SENIOR PRODUCT INTEGRITY ENGINEER PC LACTATE (LACTIC ACID) STAT 11/04/2023 10:45 PM SENIOR PRODUCT INTEGRITY ENGINEER FIBRINOGEN STAT 11/04/2023 10:45 PM SENIOR PRODUCT INTEGRITY ENGINEER PC LAB CBC W/DIFF & PLT STAT 11/04/2023 10:45 PM SENIOR PRODUCT INTEGRITY ENGINEER PC GASES,BLOOD,ANY COMB OF PH,PCD2,PO2,CO2,HCO2 STAT 11/04/2023 10:45 PM SENIOR PRODUCT INTEGRITY ENGINEER ED US CRITICAL CARE STAT 11/04/2023 1 0:40 PM SENIOR PRODUCT INTEGRITY ENGINEER PANEL LIPID Routine 10/10/2021 11:08 AM SENIOR PRODUCT INTEGRITY ENGINEER from Last 3 Months or Most Recently Relevant to Health Maintenance Results * (ABNORMAL) PANEL BASIC METABOLIC (BMP) (11/16/2023 7:22 AM SENIOR PRODUCT INTEGRITY ENGINEER) Only the most recent of12 resultswithin the time period is included. Sodium 143 135 - 148 mEq/L [facility] Potassium 3.9 3.5 - 5.3 mEq/L [facility] Chloride 105 92 - 108 mEq/L [facility] CO2 27 22 - 30 mEq/L [facility] AnGap 11 8 - 16 mEq/L [facility] Glucose 87 70 - 100 mg/dL [facility] BUN 23 8 - 23 mg/dL [facility] Creatinine 1.19(H) 0.50 - 1.00 mg/dL [facility] Calcium 9.4 8.8 - 10.2 mg/dL [facility] eGFR (2020 CKD-EPI) 46(L) >=60 ml/min/1.7 3m2 [facility] Comment: The estimated glomerular filtration rate (eGFR) was calculated using the CKD-EPI 2020 creatinine equation, which does not include race as a factor. This equation is validated in individuals 18 years of age and older, and eGFR is normalized to a body surface area of 1.73m^2. Blood 11/16/2023 7:22 AM SENIOR PRODUCT INTEGRITY ENGINEER 11/16/2023 7:43 AM SENIOR PRODUCT INTEGRITY ENGINEER Jesusita Aiken APRN, CNP LABORATO RY [facility] [address] [address] * POC GLUCOSE (11/16/2023 6:58 AM SENIOR PRODUCT INTEGRITY ENGINEER) Only the most recent of42 resultswithin the time period is included. POC Glucose 84 70 - 100 mg/dL [facility] [place] - POINT OF CARE Blood 11/16/2023 6:58 AM SENIOR PRODUCT INTEGRITY ENGINEER Devin Dougherty MD LABORATORY [facility] - POINT OF CARE [address] [place] [id number], * PHOSPHORUS (11/11/2023 6:09 AM SENIOR PRODUCT INTEGRITY ENGINEER) Only the most recent of7 resultswithin the time period is included. Phosphorus 3.5 2.5 - 4.5 mg/dL [facility] Blood 11/11/2023 6:09 AM SENIOR PRODUCT INTEGRITY ENGINEER 11/11/2023 6:36 AM SENIOR PRODUCT INTEGRITY ENGINEER Quinn Covarrubias MD LABORATORY Performing Organization Address City/[facility]/ZIP Co de Phone Number [facility] [address] [address] * MAGNESIUM (11/11/2023 6:09 AM SENIOR PRODUCT INTEGRITY ENGINEER) Only the most recent of8 resultswithin the time period is included. Pathologist [facility] [place] Magnesium 2.2 1.6 - 2.4 mg/dL [facility] Blood 11/11/2023 6:09 AM SENIOR PRODUCT INTEGRITY ENGINEER 11/11/2023 6:36 AM SENIOR PRODUCT INTEGRITY ENGINEER Quinn Covarrubias MD LABORATORY Performing Organization Address City/[facility] Co de Phone Number [facility] [address] [address] * (ABNORMAL) CBC WITH PLATELET (11/11/2023 6:09 AM SENIOR PRODUCT INTEGRITY ENGINEER) Only the most recent of7 resultswithin the time period is included. Pathologist [facility] [place] WBC 5.60 4.00 - 10.00 k/cmm [facility] RBC 3.80(L) 3.90 - 5.20 m/cmm [facility] Hgb 9.5(L) 11.5 - 15.7 g/dL [facility] Hematocrit 31.4(L) 34.0 - 45.0 % [facility] MCV 82.6 80.0 - 100.0 fL [facility] MCH 25.0 25.0 - 32.0 pg [facility] MCHC 30.3(L) 31.0 - 36.0 g/dL [facility] RDW 16.1(H) 11.5 - 14.5 % [facility] Plt 275 150 - 400 k/cmm [facility] MPV 11.8 6.5 - 12.5 fL [facility] Blood 11/11/2023 6:09 AM SENIOR PRODUCT INTEGRITY ENGINEER 11/11/2023 6:36 AM SENIOR PRODUCT INTEGRITY ENGINEER Quinn Covarrubias MD LABORATORY Performing Organization Address City/[facility]/ZIP Co de Phone Number [address] [address] * ANTI XA ASSAY LMW HEPARIN (11/09/2023 2:18 PM SENIOR PRODUCT INTEGRITY ENGINEER) Anti XA LMW 0.32 IU/mL [facility] Comment: Anti Xa Assay LMW Heparin Therapeutic Ranges: 0.4-1.1 IU/mL for twice daily 1.0-2.0 IU/mL for once daily Blood 11/09/2023 2:18 PM SENIOR PRODUCT INTEGRITY ENGINEER 11/09/2023 2:29 PM SENIOR PRODUCT INTEGRITY ENGINEER Quinn Covarrubias MD LABORATORY Performing Organization Address [facility] Co de Phone Number [address] [address] * XR FOOT RIGHT 3 V AP/OBL/LAT* (11/09/2023 10:36 AM SENIOR PRODUCT INTEGRITY ENGINEER) Anatomical Region Laterality Modality Foot Computed Radiogr aphy 11/09/2023 10:4 7 AM SENIOR PRODUCT INTEGRITY ENGINEER Impressions 11/09/2023 10:50 AM SENIOR PRODUCT INTEGRITY ENGINEER Impression: No acute osseous abnormality. Generalized osteopenia. Reading Radiologist: Angela Camp Narrative 11/09/2023 10:50 AM SENIOR PRODUCT INTEGRITY ENGINEER Technique: XR FOOT RIGHT 3 V AP/OBL/LAT* [...] osteopenia. Reading Radiologist: Angela Camp Jesusita Larawuyoh LEARNING STRATEGIST, OCCUPATIONAL SAFETY AND HEALTH MANAGER RAD XRAY * TELEMETRY STRIPS (11/09/2023 8:48 AM SENIOR PRODUCT INTEGRITY ENGINEER) Only the most recent of12 resultswithin the time period is included. Narrative 11/09/2023 8:48 AM SENIOR PRODUCT INTEGRITY ENGINEER Ordered by an unspecified provider. Provider Unknown RAD ECHO * (ABNORMAL) VALPROATE (DEPAKOTE) LEVEL (11/09/2023 5:41 AM SENIOR PRODUCT INTEGRITY ENGINEER) Valproate 31.8(L) 50.0 - 100.0 mcg/mL [facility] Blood 11/09/2023 5:41 AM SENIOR PRODUCT INTEGRITY ENGINEER 11/09/2023 8:19 AM SENIOR PRODUCT INTEGRITY ENGINEER Quinn Covarrubias MD LABORATORY [facility] [address] [address] * XR CHEST 1 VIEW AP OR PA* (11/08/2023 6:30 AM SENIOR PRODUCT INTEGRITY ENGINEER) Only the most recent of2 resultswithin the time period is included. Anatomical Region Laterality Modality Chest Computed Radiogr aphy 11/08/2023 6:56 AM SENIOR PRODUCT INTEGRITY ENGINEER Impressions 11/08/2023 7:24 AM SENIOR PRODUCT INTEGRITY ENGINEER Impression: Stable chest. I have personally reviewed the image(s) and initial interpretation, and I agree with the findings as documented by the resident/fellow. Reading Radiologist: Ronal Hidalgo Reading Resident: Laith Berkowitz Narrative 11/08/2023 7:24 AM SENIOR PRODUCT INTEGRITY ENGINEER Technique: XR CHEST 1 VIEW AP OR [...] VIEWS PA + LAT* (11/07/2023 10:07 AM SENIOR PRODUCT INTEGRITY ENGINEER) Anatomical Region Laterality Modality Chest Computed Radiogr aphy 11/07/2023 10:0 9 AM SENIOR PRODUCT INTEGRITY ENGINEER Impressions 11/07/2023 10:10 AM SENIOR PRODUCT INTEGRITY ENGINEER Impression: New left basilar opacities with small effusion concerning for developing infection. Reading Radiologist: Phil Contreras Narrative 11/07/2023 10:10 AM SENIOR PRODUCT INTEGRITY ENGINEER Technique: XR CHEST 2 VIEWS PA + [...] RAD XRAY * PROCALCITONIN (11/07/2023 8:34 AM SENIOR PRODUCT INTEGRITY ENGINEER) Procalcitonin 0.12 ng/mL [facility] Comment: Results <0.50 ng/mL represent a low risk of severe sepsis and/or septic shock. Results >2.0 ng/mL represent a high risk of severe sepsis and/or septic shock. Blood 11/07/2023 8:34 AM SENIOR PRODUCT INTEGRITY ENGINEER 11/07/2023 8:40 AM SENIOR PRODUCT INTEGRITY ENGINEER Quinn Covarrubias MD LABORATORY [facility] [address] [address] * (ABNORMAL) BLOOD GASES (11/06/2023 1:06 PM SENIOR PRODUCT INTEGRITY ENGINEER) Only the most recent of3 resultswithin the time period is included. PH Jalen 7.36 7.32 - 7.42 [facility] PCO2 Jalen 48 41 - 51 mmHG [facility] PO2 Jalen 86(H) 25 - 40 mmHG [facility] Bicarb Jalen 26 24 - 28 mEq/L [facility] O2 Sat Jalen 96 % [facility] Base Exc Jalen 1.0 -10.0 - 2.0 mEq/L [facility] Blood Venous 11/06/2023 1:06 PM SENIOR PRODUCT INTE[employer]ITY ENGINEER 11/06/2023 1:10 PM SENIOR PRODUCT INTEGRITY ENGINEER Narrative [facility] - 11/06/2023 1:16 PM SENIOR [employer]ODUCT INTEGRITY ENGINEER Draw on Room Air: No O2 LPM (liter/min) Level->4 via mask FiO2 Level: 100 Quinn Covarrubias MD LABORATORY Performing Organization Address City/[facility]/ZIP Co de Phone Number [facility] [address] [address] * (ABNORMAL) ICU MAGNESIUM (11/06/2023 6:31 AM SENIOR PRODUCT INTEGRITY ENGINEER) Only the most recent of2 resultswithin the time period is included. Magnesium 2.5(H) 1.6 - 2.4 mg/dL [facility] Blood 11/06/2023 6:31 AM SENIOR PRODUCT INTEGRITY ENGINEER 11/06/2023 7:37 AM SENIOR PRODUCT INTEGRITY ENGINEER Devin Dougherty MD LABORATORY Performing Organization Address City/[facility]/ZIP Co de Phone Number [facility] [address] [address] * ICU PHOSPHORUS (11/06/2023 6:31 AM SENIOR PRODUCT INTEGRITY ENGINEER) Only the most recent of2 resultswithin the time period is included. Phosphorus 4.1 2.5 - 4.5 mg/dL [facility] Blood 11/06/2023 6:31 AM S[employer]IOR PRODUCT INTEGRITY ENGINEER 11/06/2023 7:37 AM SENIOR PRODUCT INTEGRITY ENGINEER Devin Dougherty MD LABORATORY [facility] [address] [address] * (ABNORMAL) ICU CBC WITH PLATELET (11/06/2023 6:31 AM SENIOR [employer]ODUCT INTEGRITY ENGINEER) Only the most recent of2 resultswithin the time period is included. WBC 9.06 4.00 - 10.00 k/cmm [facility] RBC 3.77(L) 3.90 - 5.20 m/cmm [facility] Hgb 9.6(L) 11.5 - 15.7 g/dL [facility] Hematocrit 30.8(L) 34.0 - 45.0 % [facility] MCV 81.7 80.0 - 100.0 fL [facility] MCH 25.5 25.0 - 32.0 pg [facility] MCHC 31.2 31.0 - 36.0 g/dL [facility] RDW 15.9(H) 11.5 - 14.5 % [facility] Plt 284 150 - 400 k/cmm [facility] MPV 12.1 6.5 - 12.5 fL [facility] Blood 11/06/2023 6:31 AM SENIOR [employer]ODUCT INTEGRITY ENGINEER 11/06/2023 7:37 AM SENIOR PRODUCT INTEGRITY ENGINEER Devin Dougherty MD LABORATORY Performing Organization Address City/[facility] Co de Phone Number [facility] [address] [address] * (ABNORMAL) ICU PANEL BASIC METABOLIC (BMP) (11/06/2023 6:31 AM SENIOR PRODUCT INTEGRITY ENGINEER) Only the most recent of2 resultswithin the time period is included. Sodium 142 135 - 148 mEq/L [facility] Potassium 3.7 3.5 - 5.3 mEq/L [facility] Chloride 107 92 - 108 mEq/L [facility] CO2 26 22 - 30 mEq/L [facility] AnGap 9 8 - 16 mEq/L [facility] Glucose 148(H) 70 - 100 mg/dL [facility] BUN 12 8 - 23 mg/dL [facility] Creatinine 0.77 0.50 - 1.00 mg/dL [facility] Calcium 8.7(L) 8.8 - 10.2 mg/dL [facility] eGFR (2020 CKD-EPI) 77 >=60 ml/min/1.7 3m2 [facility] Comment: The estimated glomerular filtration rate (eGFR) was calculated using the CKD-EPI 2020 creatinine equation, which does not include race as a factor. This equation is validated in individuals 18 years of age and older, and eGFR is normalized to a body surface area of 1.73m^2. Blood 11/06/2023 6:31 AM SENIOR PRODUCT INTEGRITY ENGINEER 11/06/2023 7:37 AM SENIOR PRODUCT INTEGRITY ENGINEER Devin Dougherty MD LABORATORY Performing Organization Address [facility] Co de Phone Number [facility] [address] [address] * PROTHROMBIN (PT) & INR (11/06/2023 6:31 AM SENIOR PRODUCT INTEGRITY ENGINEER) Only the most recent of3 resultswithin the time period is included. PT 11.4 9.0 - 12.5 sec [facility] INR 1.0 0.8 - 1.1 [facility] Comment: Warfarin Therapeutic Range: Standard Intensity: 2.0 - 3.0 High Intensity: 2.5 - 3.5 Blood 11/06/2023 6:31 AM SENIOR PRODUCT INTEGRITY ENGINEER 11/06/2023 7:37 AM SENIOR PRODUCT INTEGRITY ENGINEER Quinn Covarrubias MD LABORATORY Performing Organization Address [facility] Co de Phone Number [facility] [address] [address] * (ABNORMAL) GLYCOSYLATED HGB - A1C (11/06/2023 6:31 AM SENIOR PRODUCT INTEGRITY ENGINEER) Hemoglobin A1C 8.1(H) 4.0 - 5.6 % [facility] Comment: Increased risk for diabetes (prediabetes): 5.7-6.4% Diabetes: greater than or equal to 6.5% * * In the absence of unequivocal hyperglycemia, diagnosis requires two abnormal test results (i.e. HbA1c and glucose) or two abnormal results from specimens collected at two different timepoints. Estimated Average Glucose 186(H) 68 - 114 [facility] Comment: The ADA recommends reporting an estimated Average Glucose (eAG) with all hemoglobin A1c results using the equation derived from a study of 501 normal diabetic adults. Minority populations were underrepresented and children were not included. The EAG is not equivalent to a fasting glucose. Blood 11/06/2023 6:31 AM SENIOR PRODUCT INTEGRITY ENGINEER 11/06/2023 11:28 AM SENIOR PRODUCT INTEGRITY ENGINEER Quinn Covarrubias MD LABORATORY Performing Organization Address City/[facility] Co de Phone Number [address] [address] * (ABNORMAL) POTASSIUM (11/05/2023 4:48 PM SENIOR PRODUCT INTEGRITY ENGINEER) Potassium 3.2(L) 3.5 - 5.3 mEq/L [facility] Blood 11/05/2023 4:48 PM SENIOR PRODUCT INTEGRITY ENGINEER 11/05/2023 4:58 PM SENIOR PRODUCT INTEGRITY ENGINEER Quinn Covarrubias MD LABORATORY Performing Organization Address [facility] Co de Phone Number [address] [address] * CT HEAD NO IV CONTRAST (11/05/2023 11:44 AM SENIOR PRODUCT INTEGRITY ENGINEER) Only the most recent of3 resultswithin the time period is included. Anatomical Region Laterality Modality Skull Computed Tomogra phy 11/05/2023 12:1 6 PM SENIOR PRODUCT INTEGRITY ENGINEER Impressions 11/05/2023 12:38 PM SENIOR PRODUCT INTEGRITY ENGINEER Impression: Stable head CT as compared to the study performed 7 hours earlier. Intra-axial and extra-axial hemorrhage(s) without midline shift or hydrocephalus. The basal cisterns are patent. Reading Radiologist: Ford Fernández 11/05/2023 12:38 PM SENIOR PRODUCT INTEGRITY ENGINEER Exam: Head CT without contrast, 11/05/2023 Indication: [...] * EKG ADULT (12-LEAD) (11/05/2023 6:38 AM SENIOR PRODUCT INTEGRITY ENGINEER) 11/05/2023 6:38 AM SENIOR PRODUCT INTEGRITY ENGINEER Impressions [facility] EKG ORDERS - 11/05/2023 6:38 AM SENIOR PRODUCT INTEGRITY ENGINEER SINUS RHYTHM RIGHT BUNDLE BRANCH BLOCK ??[120+ ms QRS DURATION, UPRIGHT V1, 40+ ms S IN I/aVL/V4/V5/V6] ABNORMAL ECG P-R Interval 151 ms QRS Interval 128 ms QT Interval 420 ms QTC Interval 462 ms P Freeman 9 QRS Freeman 27 T Wave Freeman 70 Narrative Procedure Note Lauren Mills MD - 11/06/2023 IMPRESSION SINUS RHYTHM RIGHT BUNDLE BRANCH BLOCK [120+ ms QRS DURATION, UPRIGHT V1, 40+ ms S INI/aVL/V4/V5/V6] ABNORMAL ECG P-R Interval 151 ms QRS Interval 128 ms QT Interval 420 ms QTC Interval 462 ms P Freeman 9 QRS Freeman 27 T Wave Freeman 70 Quinn Covarrubias MD EKG [facility] EKG ORDERS * (ABNORMAL) ICU BLOOD GAS (11/05/2023 4:27 AM SENIOR PRODUCT INTEGRITY ENGINEER) PH Art 7.38 7.35 - 7.45 [facility] PCO2 Art 42 35 - 45 mmHG [facility] PO2 Art 99(H) 75 - 85 mmHG [facility] Bicarb Art 25 22 - 26 mEq/L [facility] O2 Sat Art 98 96 - 99 % [facility] Base Exc Art 0.0 -10.0 - 2.0 mEq/L [facility] Blood Arterial 11/05/2023 4: 27 AM SENIOR PRODUCT INTEGRITY ENGINEER 11/05/2023 4:34 AM SENIOR PRODUCT INTEGRITY ENGINEER Devin Dougherty MD LABORATORY Performing Organization Address [facility] Co de Phone Number [facility] [address] [address] * (ABNORMAL) TROP 6H (11/05/2023 4:27 AM SENIOR PRODUCT INTEGRITY ENGINEER) 6H Trop 51(H) <=14 ng/L [facility] 6H Delta Significan t(A) Not Significant [facility] Blood 11/05/2023 4:27 AM SENIOR PRODUCT INTEGRITY ENGINEER 11/05/2023 4:35 AM SENIOR PRODUCT INTEGRITY ENGINEER Devin Dougherty MD LABORATORY Performing Organization Address [facility] Co de Phone Number [facility] [address] [address] * (ABNORMAL) TROP 4H (11/05/2023 2:58 AM SENIOR PRODUCT INTEGRITY ENGINEER) 4H Trop 39(H) <=14 ng/L [facility] 4H Delta Significan t(A) Not Significant [facility] Blood 11/05/2023 2:58 AM SENIOR PRODUCT INTEGRITY ENGINEER 11/05/2023 3:48 AM SENIOR PRODUCT INTEGRITY ENGINEER Devin Dougherty MD LABORATORY Performing Organization Address [facility] Co de Phone Number [facility] [address] [address] * (ABNORMAL) PANEL HEPATIC FUNCTION (11/05/2023 1:32 AM SENIOR PRODUCT INTEGRITY ENGINEER) Alk Phos 111(H) 35 - 104 IU/L [facility] Total Protein 6.5 6.4 - 8.3 g/dL [facility] Bili Direct na <=0.3 mg/dL [facility] Comment:Direct Bilirubin = < 0.2. Accuracy of result suspect due to lipemia. Albumin 3.8 3.8 - 5.1 g/dL [facility] Bili Total <0.2 <=1.2 mg/dL [facility] ALT (SGPT) na <=33 [facility] Comment:ALT = 15. Accuracy o f result suspect due to lipemia. AST(SGOT) na 5 - 40 [facility] Comment:AST = 27. Accuracy o f result suspect due to lipemia. Blood 11/05/2023 1:32 AM SENIOR PRODUCT INTEGRITY ENGINEER 11/05/2023 1:32 AM SENIOR PRODUCT INTEGRITY ENGINEER Devin Dougherty MD LABORATORY Performing Organization Address City/[facility]/ZIP Co de Phone Number [facility] [address] [address] * FIBRINOGEN (11/05/2023 1:32 AM SENIOR PRODUCT INTEGRITY ENGINEER) Only the most recent of2 resultswithin the time period is included. Fibrinogen 262 200 - 400 mg/dL [facility] Blood 11/05/2023 1:32 AM SENIOR PRODUCT INTEGRITY ENGINEER 11/05/2023 1:32 AM SENIOR PRODUCT INTEGRITY ENGINEER Devin Dougherty MD LABORATORY Performing Organization Address [facility] Co de Phone Number [facility] [address] [address] * CK, TOTAL (11/05/2023 1:32 AM SENIOR PRODUCT INTEGRITY ENGINEER) CK 56 26 - 192 IU/L [facility] Blood 11/05/2023 1:32 AM SENIOR PRODUCT INTEGRITY ENGINEER 11/05/2023 1:32 AM SENIOR PRODUCT INTEGRITY ENGINEER Devin Dougherty MD LABORATORY Performing Organization Address [facility] Co de Phone Number [facility] [address] [address] * PTT (APTT) (11/05/2023 1:32 AM SENIOR PRODUCT INTEGRITY ENGINEER) Only the most recent of2 resultswithin the time period is included. APTT 26.0 25.0 - 37.0 sec [facility] Blood 11/05/2023 1:32 AM SENIOR PRODUCT INTEGRITY ENGINEER 11/05/2023 1:32 AM SENIOR PRODUCT INTEGRITY ENGINEER Devin Dougherty MD LABORATORY Performing Organization Address [facility] Co de Phone Number [facility] [address] [address] * (ABNORMAL) TROP 2H (11/05/2023 1:18 AM SENIOR PRODUCT INTEGRITY ENGINEER) 2H Trop 18(H) <=14 ng/L [facility] 2H Delta Indeterminate Not Significant [facility] Blood 11/05/2023 1:18 AM SENIOR PRODUCT INTEGRITY ENGINEER 11/05/2023 1:45 AM SENIOR PRODUCT INTEGRITY ENGINEER Devin Dougherty MD LABORATORY Performing Organization Address [facility] de Phone Number [facility] [address] [address] * LACTATE (LACTIC ACID) (11/05/2023 1:18 AM SENIOR PRODUCT INTEGRITY ENGINEER) Only the most recent of2 resultswithin the time period is included. Lactate 1.9 0.7 - 2.1 mmol/L [facility] Blood 11/05/2023 1:18 AM SENIOR PRODUCT INTEGRITY ENGINEER 11/05/2023 1:27 AM SENIOR PRODUCT INTEGRITY ENGINEER Narrative [facility] - 11/05/2023 1:45 AM SENIOR PRODUCT INTEGRITY ENGINEER Send specimen on ice! Devin Dougherty MD LABORATORY Performing Organization Address [facility] de Phone Number [facility] [address] [address] * CALCIUM,IONIZED (11/05/2023 1:18 AM SENIOR PRODUCT INTEGRITY ENGINEER) PH 7.37 7.32 - 7.42 [facility] ICA, Actual 4.82 4.40 - 5.20 mg/dL [facility] ICA, pH Corrected 4.75 4.40 - 5.20 mg/dL [facility] Blood 11/05/2023 1:18 AM SENIOR PRODUCT INTEGRITY ENGINEER 11/05/2023 1:27 AM SENIOR PRODUCT INTEGRITY ENGINEER Narrative [facility] - 11/05/2023 1:44 AM SENIOR PRODUCT INTEGRITY ENGINEER Send specimen on ice! Devin Dougherty MD LABORATORY [facility] [address] [place] [address] * CT HEAD-NECK - ANGIO - W/IV CON (11/05/2023 12:09 AM SENIOR PRODUCT INTEGRITY ENGINEER) Anatomical Region Laterality Modality Skull Computed Tomogra phy 11/05/2023 12:2 1 AM SENIOR PRODUCT INTEGRITY ENGINEER Impressions 11/05/2023 10:22 AM SENIOR PRODUCT INTEGRITY ENGINEER Impression: ?? Slightly increased size of the [...] Fernández Resident: Laith Berkowitz 11/05/2023 10:22 AM SENIOR PRODUCT INTEGRITY ENGINEER CT angiogram of the Head with contrast, [...] and reviewed by the Radiologist using the [employer] workstation, and these images were archived in [...] and reviewed by the Radiologist using the [employer] workstation,and these images were archived in the [...] NEURO * (ABNORMAL) URINALYSIS,TOTAL (11/04/2023 11:55 PM SENIOR PRODUCT INTEGRITY ENGINEER) Color COLORLESS YELLOW [facility] Appearance CLEAR CLEAR [facility] Urine Glucose 100(A) NEGATIVE mg/dL [facility] Bili UA NEGATIVE NEGATIVE [facility] Ketones NEGATIVE NEGATIVE [facility] Specific [place] 1.036(A) 1.003 - 1.030 [facility] Blood Ur NEGATIVE Neg-Trace [facility] PH Urine 7.5(H) 5.0 - 7.0 [facility] Protein Ur TRACE Neg-Trace [facility] Urobilinogen NORMAL NORMAL EU/dL [facility] Nitrite Ur NEGATIVE NEGATIVE [facility] Leuk Est NEGATIVE Neg-Trace [facility] WBC Ur 0-5 0 - 5 perHPF [facility] RBC Ur 0-3 0 - 3 perHPF [facility] SQ EPITH 0-5 0 - 5 perHPF [facility] Urinalysis Performed at: [facility] Urine 11/04/2023 11:5 5 PM SENIOR PRODUCT INTEGRITY ENGINEER 11/05/2023 12:03 AM SENIOR PRODUCT INTEGRITY ENGINEER Devin Dougherty MD LABORATORY [facility] [address] [place] [address] * PF INSERT CATH,ART,PERCUT,SHORTTERM (11/04/2023 11:43 PM SENIOR PRODUCT INTEGRITY ENGINEER) Narrative Rito Graf MD - 11/04/2023 11:43 PM SENIOR PRODUCT INTEGRITY ENGINEER Priscilla Holcomb MD ? 11/04/2023 11:44 PM Arterial Line Performed by: Priscilla Holcomb MD Authorized by: Rito Graf MD ?? Consent: ??Consent obtained: ??Verbal ??Consent given by: ??Patient ??Risks discussed: ??Pain, bleeding and infection [place] protocol: ??Patient identity confirmed: ??Verbally with patient, [...] * ED EKG (12-LEAD) (11/04/2023 11:25 PM SENIOR PRODUCT INTEGRITY ENGINEER) 11/04/2023 11:2 5 PM SENIOR PRODUCT INTEGRITY ENGINEER Impressions [facility] EKG ORDERS - 11/04/2023 11:25 PM SENIOR PRODUCT INTEGRITY ENGINEER SINUS TACHYCARDIA RIGHT BUNDLE BRANCH BLOCK ??[120+ ms QRS DURATION, UPRIGHT V1, 40+ ms S IN I/aVL/V4/V5/V6] ABNORMAL ECG P-R Interval 173 ms QRS Interval 127 ms QT Interval 395 ms QTC Interval 458 ms P Freeman 57 QRS Freeman 34 T Wave Freeman 43 Narrative Procedure Note Vineet Díaz MD - 11/05/2023 IMPRESSION SINUS TACHYCARDIA RIGHT BUNDLE BRANCH BLOCK [120+ ms QRS DURATION, UPRIGHT V1, 40+ ms S INI/aVL/V4/V5/V6] ABNORMAL ECG P-R Interval 173 ms QRS Interval 127 ms QT Interval 395 ms QTC Interval 458 ms P Freeman 57 QRS Freeman 34 T Wave Freeman 43 Devin Dougherty MD EKG [facility] EKG ORDERS * CT SPINE THORACIC NO IV CON (11/04/2023 11:05 PM SENIOR PRODUCT INTEGRITY ENGINEER) Anatomical Region Laterality Modality Thoracic Spine Computed Tomogra phy 11/04/2023 11:2 3 PM SENIOR PRODUCT INTEGRITY ENGINEER Impressions 11/05/2023 9:22 AM SENIOR PRODUCT INTEGRITY ENGINEER Impression: 1. No suspected acute fracture or dislocation of the thoracic or lumbar spine. ?? 2. Xdoi-vq-dofpdber lumbar spondylosis without suspected high-grade spinal canal or neural foraminal narrowing. I have personally reviewed the image(s) and initial interpretation, and I agree with the findings as documented by the resident/fellow. Reading Radiologist: Ford Fernández Reading Resident: Laith Berkowitz Narrative 11/05/2023 9:22 AM SENIOR PRODUCT INTEGRITY ENGINEER Exam: Thoracic and Lumbar Spine CT Reconstructions, [...] dislocation of the thoracic or lumbarspine. 2. Weuj-xs-hnbabexo lumbar spondylosis without suspected high-grade spinalcanal or neural foraminal narrowing. I have personally reviewed the image(s) and initial interpretation, and Iagree with the findings as documented by the resident/fellow. Reading Radiologist: Ford Fernández Resident: Laith Berkowitz Devin Dougherty MD RAD CT NEURO * CT SPINE LUMBAR NO IV CON (11/04/2023 11:05 PM SENIOR PRODUCT INTEGRITY ENGINEER) Anatomical Region Laterality Modality Lumbar Spine Computed Tomogra phy 11/04/2023 11:2 3 PM SENIOR PRODUCT INTEGRITY ENGINEER Impressions 11/05/2023 9:22 AM SENIOR PRODUCT INTEGRITY ENGINEER Impression: 1. No suspected acute fracture or dislocation of the thoracic or lumbar spine. ?? 2. Wbol-je-ytbljhla lumbar spondylosis without suspected high-grade spinal canal or neural foraminal narrowing. I have personally reviewed the image(s) and initial interpretation, and I agree with the findings as documented by the resident/fellow. Reading Radiologist: Ford Fernández Resident: Laith Berkowitz Narrative 11/05/2023 9:22 AM SENIOR PRODUCT INTEGRITY ENGINEER Exam: Thoracic and Lumbar Spine CT Reconstructions, [...] dislocation of the thoracic or lumbarspine. 2. Bbnb-lm-hegbrwhs lumbar spondylosis without suspected high-grade spinalcanal or neural foraminal narrowing. I have personally reviewed the image(s) and initial interpretation, and Iagree with the findings as documented by the resident/fellow. Reading Radiologist: Ford Fernández Reading Resident: Laith Berkowitz Devin Dougherty MD RAD CT NEURO * CT SPINE CERVICAL NO IV CON (11/04/2023 11:05 PM SENIOR PRODUCT INTEGRITY ENGINEER) Anatomical Region Laterality Modality Cervical Spine Computed Tomogra phy 11/04/2023 11:2 0 PM SENIOR PRODUCT INTEGRITY ENGINEER Impressions 11/05/2023 8:27 AM SENIOR PRODUCT INTEGRITY ENGINEER Impression: ?? 1. No acute fracture or traumatic subluxation of the cervical vertebrae. 2. Mild degenerative changes of the cervical spine without high-grade spinal canal or neural foraminal narrowing. I have personally reviewed the image(s) and initial interpretation, and I agree with the findings as documented by the resident/fellow. Reading Radiologist: Ford Fernández Reading Resident: Laith Berkowitz 11/05/2023 8:27 AM SENIOR PRODUCT INTEGRITY ENGINEER Exam: Cervical spine CT without contrast, 11/04/2023 [...] spinal canal narrowing. C5-6: Mild left and ejtf-el-hwqrwhcw right neural foraminal narrowing. Borderline mild spinal [...] spinal canal narrowing. C5-6: Mild left and mlrz-jc-hdovilrt right neural foraminal narrowing.Borderline mild spinal canal [...] CT CHEST/ABD/PELVIS W/IV CONT (11/04/2023 11:05 PM SENIOR PRODUCT INTEGRITY ENGINEER) Anatomical Region Laterality Modality Chest Computed Tomogra phy 11/04/2023 11:2 9 PM SENIOR PRODUCT INTEGRITY ENGINEER Impressions 11/05/2023 6:33 AM SENIOR PRODUCT INTEGRITY ENGINEER Impression: 1. No acute traumatic sequelae in [...] Reading Resident: Laith Berkowitz 11/05/2023 6:33 AM SENIOR PRODUCT INTEGRITY ENGINEER Comparison: None Indication: Trauma (STAB) ?? Technique: [...] ED CHEMISTRY LABS(NA,K,CL,CO2,GLU,CREAT,CA-IONIZED,ANION GAP) (11/04/2023 10:48 PM SENIOR PRODUCT INTEGRITY ENGINEER) Sodium 144 135 - 148 mEq/L [facility] Chloride 106 92 - 108 mEq/L [facility] AnGap 11 8 - 16 mEq/L [facility] Glucose 234(H) 70 - 100 mg/dL [facility] ICA, Actual 4.52 4.40 - 5.20 mg/dL [facility] ICA, pH Corrected 4.51 4.40 - 5.20 mg/dL [facility] Creatinine 0.81 0.50 - 1.00 mg/dL [facility] BICARB 27(H) 22 - 26 mEq/L [facility] eGFR (2020 CKD-EPI) 73 >=60 ml/min/1.7 3m2 [facility] Comment: The estimated glomerular filtration rate (eGFR) was calculated using the CKD-EPI 2020 creatinine equation, which does not include race as a factor. This equation is validated in individuals 18 years of age and older, and eGFR is normalized to a body surface area of 1.73m^2. Potassium 2.8(AA) 3.5 - 5.3 mEq/L [facility] Comment:Critcal Result Low Blood 11/04/2023 10:4 8 PM SENIOR PRODUCT INTEGRITY ENGINEER 11/04/2023 10:49 PM SENIOR PRODUCT INTEGRITY ENGINEER Narrative [facility] - 11/04/2023 10:55 PM SENIOR PRODUCT INTEGRITY ENGINEER Critical value for Potassium called to and read back by Rafa Hutchins RN in ??EDSTAB 2 at 11/04/2023 22:55:31 SENIOR PRODUCT INTEGRITY ENGINEER by Eleni Spring MLS. Devin Dougherty MD LABORATORY Performing Organization Address City/[facility] Co de Phone Number [address] [address] * (ABNORMAL) ED HEMOGLOBIN TOTAL (ED ONLY) (11/04/2023 10:48 PM SENIOR PRODUCT INTEGRITY ENGINEER) Hgb 10.3(L) 11.5 - 15.7 g/dL [facility] Blood 11/04/2023 10:4 8 PM SENIOR PRODUCT INTEGRITY ENGINEER 11/04/2023 10:49 PM SENIOR PRODUCT INTEGRITY ENGINEER Devin Dougherty MD LABORATORY Performing Organization Address [facility] Co de Phone Number [address] [address] * ED INR (11/04/2023 10:45 PM SENIOR PRODUCT INTEGRITY ENGINEER) ED INR 1.0 0.8 - 1.1 [facility] Comment: Warfarin Therapeutic Range: Standard Intensity: 2.0 - 3.0 High Intensity: 2.5 - 3.5 Blood 11/04/2023 10:4 5 PM SENIOR PRODUCT INTEGRITY ENGINEER 11/04/2023 10:48 PM SENIOR PRODUCT INTEGRITY ENGINEER Devin Dougherty MD LABORATORY Performing Organization Address [facility] Co de Phone Number [facility] [address] [address] * EXTRA TUBE - LIGHT GREEN (11/04/2023 10:45 PM SENIOR PRODUCT INTEGRITY ENGINEER) LIGHT GREEN TUBE Stored [facility] Comment:Green tubes (Jaguas Heparin) are stored in the lab for 3 days from the collection date. Blood 11/04/2023 10:4 5 PM SENIOR PRODUCT INTEGRITY ENGINEER 11/04/2023 10:50 PM SENIOR PRODUCT INTEGRITY ENGINEER Devin Dougherty MD LABORATORY Performing Organization Address [facility] Co de Phone Number [facility] [address] [address] * EXTRA TUBE - SST (11/04/2023 10:45 PM SENIOR PRODUCT INTEGRITY ENGINEER) SST TUBE Stored [facility] Comment:SST tubes (Serum Sep arator) are stored in the lab for 3 days from the collection date. Blood 11/04/2023 10:4 5 PM SENIOR PRODUCT INTEGRITY ENGINEER 11/04/2023 10:50 PM SENIOR PRODUCT INTEGRITY ENGINEER Devin Dougherty MD LABORATORY Performing Organization Address [facility] Co de Phone Number [facility] [address] [address] * HS TROPONIN (11/04/2023 10:45 PM SENIOR PRODUCT INTEGRITY ENGINEER) HS Troponin I 10 <=14 ng/L [facility] Blood 11/04/2023 10:4 5 PM SENIOR PRODUCT INTEGRITY ENGINEER 11/04/2023 11:05 PM SENIOR PRODUCT INTEGRITY ENGINEER Narrative [facility] - 11/04/2023 11:36 PM SENIOR PRODUCT INTEGRITY ENGINEER First Occurrence of the Troponin order is to be drawn Stat by Nursing staff on the unit. Devin Dougherty MD LABORATORY [facility] [address] [id number] * (ABNORMAL) CBC WITH PLTS/AUTO DIFF (11/04/2023 10:45 PM SENIOR PRODUCT INTEGRITY ENGINEER) WBC 9.42 4.00 - 10.00 k/cmm [facility] RBC 3.86(L) 3.90 - 5.20 m/cmm [facility] Hgb 9.8(L) 11.5 - 15.7 g/dL [facility] Hematocrit 31.8(L) 34.0 - 45.0 % [facility] MCV 82.4 80.0 - 100.0 fL [facility] MCH 25.4 25.0 - 32.0 pg [facility] MCHC 30.8(L) 31.0 - 36.0 g/dL [facility] RDW 15.3(H) 11.5 - 14.5 % [facility] Plt 292 150 - 400 k/cmm [facility] MPV 11.1 6.5 - 12.5 fL [facility] Automated Abs Neutrophil 5.80 1.70 - 6.50 k/cmm [facility] Comment:Preliminary ANC, Fin al Result to Follow Abs Immature Granulocyte 0.07 0.00 - 0.09 k/cmm [facility] Comment:The Immature Granulo cyte Absolute count contains metamyelocytes and myelocytes. Abs Neutrophil 5.80 1.70 - 6.50 k/cmm [facility] Abs Lymphocyte 2.33 0.80 - 4.00 k/cmm [facility] Abs Monocyte 0.88 0.20 - 1.00 k/cmm [facility] Abs Eosinophil 0.27 0.00 - 0.60 k/cmm [facility] Abs Basophil 0.07 0.00 - 0.20 k/cmm [facility] Blood 11/04/2023 10:4 5 PM SENIOR PRODUCT INTEGRITY ENGINEER 11/04/2023 11:05 PM SENIOR PRODUCT INTEGRITY ENGINEER Devin Dougherty MD LABORATORY [facility] [address] [id number] * PRECAUTIONARY TUBE (11/04/2023 10:45 PM SENIOR PRODUCT INTEGRITY ENGINEER) Prec Tube Precautionary Blood Bank Specimen Received. [facility] Blood 11/04/2023 10:4 5 PM SENIOR PRODUCT INTEGRITY ENGINEER 11/04/2023 10:52 PM SENIOR PRODUCT INTEGRITY ENGINEER Devin Dougherty MD LAB TRANSFUSION SER VICES Performing Organization Address [facility] Co de Phone Number [address] [address] * (ABNORMAL) ANTI XA HEPARIN UNFRACTIONATED (11/04/2023 10:45 PM SENIOR PRODUCT INTEGRITY ENGINEER) Anti XA Hep U <0.04(L) 0.30 - 0.70 IU/mL [facility] Blood 11/04/2023 10:4 5 PM SENIOR PRODUCT INTEGRITY ENGINEER 11/04/2023 11:05 PM SENIOR PRODUCT INTEGRITY ENGINEER Devin Dougherty MD LABORATORY Performing Organization Address [facility] Co de Phone Number [address] [address] * ED US CRITICAL CARE (11/04/2023 10:40 PM SENIOR PRODUCT INTEGRITY ENGINEER) Anatomical Region Laterality Modality Ultrasound Narrative 11/04/2023 11:28 PM SENIOR PRODUCT INTEGRITY ENGINEER ED Trauma eFAST Ultrasound Indications: Suspicion of [...] Advance Directives For more information, please contact: [phone] Latest Code Status on File Code Status [...] Code Status With Whom? Patient Care Teams Computer Programmer Relationship Specialty Start Date End Date Eloise Reeves DO [address] [place] [address] PCP - General Family Medicine 11/06/23
--- OUTSIDE RECORDS SUMMARY | 2023-12-10 14:35 | XMS_ITS | Encounter Summary ---
Author Name Unknown Organization [facility] Address [address] [place] [address] Phone Care Team Providers Care Senior Software Project Manager Name Role Phone Eloise Reeves DO Primary Care Provider [phone] Reason for Referral * Consult/Test/Treat (Routine) - Closed Specialty Diagnoses / Procedures Referred By Selma bhandari Referred To Contact Physical Medicine and Rehab / PHYSICAL MEDICINE AND REHAB Diagnoses Fall, initial encounter SDH (subdural hematoma) ([facility]) SAH (subarachnoid hemorrhage) ([facility]) Traumatic brain injury with loss of consciousness, initial encounter ([facility]) Jesusita Aiken APRN, POLICE INSPECTOR [address] [place] [address] [facility] Pm[facility]R Cl [address] [address] Referral ID Status Reason Start Date Expiration Date Visits Re quested Visits Authorized [id number] Closed 11/08/2023 11/07/2024 1 1 ILLERY MILLER HELPER Reason for Visit * Reason Comments Fall * Auth/Cert (Routine) Specialty Diagnoses / Procedures Referred By Contjerrod t Referred To Contact SURGERY Diagnoses SDH (subdural hematoma) ([facility]) Fall, initial encounter Tariq Bobo MD [address] [facility] [id number] [address] [place] [address] [address] [place] [address] Referral ID Status Reason Start Date Expiration Date Visits Re quested Visits Authorized [id number] 1 1 Encounter Details Date Type Department Care Team (Latest Contact Info) Description 11/04/2023 10:39 PM DISTILLERY MILLER HELPER - 11/16/2023 9:19 AM DISTILLERY MILLER HELPER Hospital Encounter [facility] Surgery/Trauma/Kimmie ro 2 [address] [place], [place] [id number] Devin Dougherty MD [address] [facility] [place] [address] Quinn Covarrubias MD [address] [place] [address] Gregg Dexter MD [address] [facility] [address] [place] [address] Fall, initial encounter Discharge Disposition: [...] Coronavirus/COVID-19? No / Unsure 11/04/2023 10:48 PM DISTILLERY MILLER HELPER documented as of this encounter Last Filed Vital Signs Vital Sign Reading Time Taken Comments Blood Pressure 148/51 11/16/2023 4:25 AM DISTILLERY MILLER HELPER Pulse 61 11/16/2023 4:25 AM DISTILLERY MILLER HELPER Temperature 36.6 ??C (97.8 ??F) 11/16/2023 4:25 AM CS T Respiratory Rate 16 11/16/2023 4:25 AM DISTILLERY MILLER HELPER Oxygen Saturation 90% 11/16/2023 4:25 AM DISTILLERY MILLER HELPER Inhaled Oxygen Concentration - - Weight 69.7 kg (153 lb 10.6 oz) 024 12:03 AM DISTILLERY MILLER HELPER Height 147.3 cm (4' 10) 11/05/2023 12: 03 AM DISTILLERY MILLER HELPER Body Mass Index 32.12 11/05/2023 12:03 AM DISTILLERY MILLER HELPER documented in this encounter Discharge Summaries * [...] determined to be a good fir for [facility] inpatient acute rehab but after 1-2 weeks of therapy she wouldstill need 24/ observation. Due to her insurance it does not pay for a tcu after [facility]. The family chose to discharge to [...] pale. Neurological: Mental Status: She is alert. Linux Kernel Developer Needed: no PLANNED DISCHARGE ORDERS: Suture/Miguel: None [...] 4:30PM, M-F): Call the Surgery Clinic at [phone] After hours or on Holidays: Call the [facility] metalizing machine operator . Ask the metalizing machine operator to page the general surgery resident assistant manager of operations. IF: -- you feel you are getting [...] getting larger: a pupil is the dark chuloonawick in the center of the eye - [...] it is often helpful to return to [facility] to be evaluated. If you live far away or are in extreme distress (i.e cannot breathor won't wake up), call 911 and first responders can decide which hospital is best. If you have any questions about your or your loved one's condition after discharge, call [phone] to speak with a nurse. Please contact [...] -- Read all labels for prescription and Jihk-suz-ilnfxxu medicines. Ask the pharmacist if your prescription [...] documented. Gregg Dexter MD, 11/16/2023 8:18 AM ILLERY MILLER HELPER documented in this encounter Discharge Instructions * Discharge Instr - Speech Language Pathology* Nayeli Alvarado SLP [facility] - 11/15/2023 4:39 PM DISTILLERY MILLER HELPER Speech-language pathologists (pony ride attendant) assess and treat speech, language, cognition (thinking) [...] your primary Speech-Language Pathologist directly or call [phone]. ILLERY MILLER HELPER documented in this encounter Medications at Time [...] equipment/supplies recommended: none Final discharge destination: Subacute correction with rehab care R: The patient and family understood the AVS. P: Support patient and family if they call back with questions. Cornell Solomon RN, 11/16/2023 9:19 AM ILLERY MILLER HELPER * Carolina Awan RN - 11/16/2023 2:30 AM CST Entered chart to leave staff to staff regarding pt's d/c ride in the AM Carolina Awan RN, 11/16/2023 2:30 AM ILLERY MILLER HELPER * Sinai Brady PA-C - 11/15/2023 3:50 [...] II, and HLD, who was admitted to [facility] 11/04/2023 after being found unconscious at the [...] address self care, ADL's, adaptive equipment Continue DOCUMENT PREPARER MICROFILMING to address speech, swallow, communication, cognition Regarding [...] of this note have been dictated using All4Staff dictation software. Please excuse any director erp errors and feel free to contact me regarding such errors or confusion regarding intended message. Sinai Brady PA-C, CBIS Pager via Beepl ILLERY MILLER HELPER * Nayeli Alvarado, DOCUMENT PREPARER MICROFILMING [facility] - 11/15/2023 2:49 PM CST Speech-Language Pathology Progress Note 11/15/2023 DOCUMENT PREPARER MICROFILMING Recommendations Discharge Recommendations (DOCUMENT PREPARER MICROFILMING): Post-acute placement recommended. Acute Rehab if meets admission criteria No known barriers to placement Barriers to Discharge (DOCUMENT PREPARER MICROFILMING): NA - Post acute placement is recommended and no barriers to placement known. Post Discharge follow-up (DOCUMENT PREPARER MICROFILMING): DOCUMENT PREPARER MICROFILMING at post-acute placement Recommend PM&R Consult (DOCUMENT PREPARER MICROFILMING): Yes, for assessment of post-acute placement needs. Pt appears to be a candidate for higher intensity rehab services. Diet Recommendation: Current Diet : Regular Current Liquid: Thin liquids Medication Administration: Medications with thin liquid Aspiration Precautions: Upright with all eating and drinking Oral Hygiene: Tiller teeth 2x/day Positioning Techniques: Seat fully upright [...] Cognitive communication deficit R41.841, Treatment Type:Cognitive-linguistic Treatment (81344, 96509) Treatment Frequency: 2-3x per week CLINICAL IMPRESSIONS Patient presents with severe cognitive-linguistic deficits in areas of attention, working, short-term, and long-term memory, problem solving, reasoning, processing speed, and executive functioning secondary to SDH of the R>L tentorial leaflets and R cerebral convexity, scattered SAH, L periventri cular hemorrhage, and a small L frontal IPH. Ongoing tx is warranted. Speech-Language Pathologist: Nayeli Alvarado SLP [facility], 11/15/2023 2:49 PM Pager: TelActivaeroq ILLERY MILLER HELPER * Randy Barragan - 11/15/2023 10:27 AM CST Transportation set for patient as follows: Date and time () of patient departure: 11/16/2023 @0900 Destination: [facility] [place] [address] Type of ride: wheelchair Reference #[id number] Transportation vendor of ride: [employer] [phone] * If this ride needs to be [...] Clinical Coordinators will be informed via a TelActivaeroq page. PCS form was completed in Progress Notes and is ready to be signed and routed to vendor by requestor(for stretcher rides only). Randy Barragan, 11/15/2023 2:49 PM Patient name: Lucinda Kennedy Date of : 1940 Patient Admitting diagnosis: Patient Active Problem List Diagnosis Fall, initial encounter Attending provider: Quinn Covarrubias MD Insurance: [facility] Secondary insurance: N/A Height: Height: 147.3 cm (4' 10) Weight: Weight: 69.7 kg (153 lb 10.6 oz) ILLERY MILLER HELPER * Fide Reis - 11/15/2023 10:23 AM CST Preadmission Screening Submitter InformationPerson Being ReferredMedical InformationADL'Brooks Memorial HospitalSubmitResults Results Thank you for submitting a referral [...] help, contact the Senior LinkAge Line at [phone] or click to contact us. Print this page You have successfully submitted the preadmission screening (PAS) to the Senior LinkAge Line on: Created On 11/15/2023 10:08 AM Your confirmation number is: [id number] Results Level of Care: Based on the information you provided, it appears this person meets level of care for purposes of MA payment. OBRA: It appears this person does not need an OBRA Level II assessment. Submitter Information Form Type PAS Submitter First and Last Name Fide Reis Direct Email Agency [facility] Service Type Hospital [address] [facility] Zip Code [address] Is your Agency outside [place]? Person Being Admitted to Nursing Facility Legal first name Lucinda Last name Kennedy Date of 1940 Age 83 Gender Female Marital Status M= living with spouse Race White - W Ethnicity / Currently living with: 02 Living with spouse/parent Planned living with 02 Living with spouse/parent Housing Type Home or apartment, including assisted living () Mailing Address [address] [place] [address] [place] [address] [facility] Medical Information Reason for nursing facility admission: [...] facility the person will admit to?Yes Provider [facility] Nursing Facility Service Type Retirement [address] If your provider is not listed [...] Phone Fax Patient Preferred Theresa Yusuf Sushil [facility] Selected Group Home [address] [facility] [address] [phone] -- Internal Comment last updated by Bill Olivera 11/15/[address] [place] [address] offered us bed today. Working on setting up a ride. Team informed. Bill Olivera, 11/15/2023 10:01 AM Spoke with Italia. Will discuss further with her team. May likely admit tomorrow. May need prior auth. Bill Olivera, 11/15/2023 9:26 AM [facility] Considering Need clinical review N/A [address] [facility] [address] [phone] Internal Comment last updated by Fide Reis 11/14/2023 0926 Shared female .. bed .Fide Reis, 11/14/2023 9:25 AM [facility] Pending - Request Sent N/A [address] [facility] [address] Internal Comment last updated by Fide Reis 11/14/2023 0918 LVM for admissions .Fide Reis, 11/14/2023 9:18 AM [facility] Pending - Request Sent N/A [address] [facility] [phone] -- Internal Comment last updated by Fide Reis 11/14/2023 0920 LVM for Renata in admissions Rere Reissushil Johansen, 11/14/2023 9:20 AM [facility] Pending - Request Sent N/A [address] [address] [phone] Internal Comment last updated by Fide Reis 11/14/2023 0921 LVM for admissions .Savanna Reisgee Johansen, 11/14/2023 9:21 AM [facility] Pending - Request Sent N/A 8100 [facility] [address] [phone] -- [facility] Pending - Request Sent N/A [address] [address] [phone] -- [facility] Pending - Request Sent N/A 9889 [facility] [address] [phone] -- [facility] [place] [facility] Pending - Request Sent N/A 9200 [facility] [address] -- [facility] Pending - Request Sent N/A 213 [facility] [address] [phone] -- [facility] Pending - Request Sent N/A [address] [address] [phone] -- [facility] Declined Not a TCU N/A 900 [facility] [address] [phone] Internal Comment last updated by Marycarmen Caldwell 11/09/2023 1033 Not a TCU per the [phone] phone number connected to the same address. Marycarmen Caldwell,11/09/2023 10:33 AM [facility] Declined Closed N/A [address] [facility] [address] [phone] Internal Comment last updated by Fide Reis 11/08/2023 1359 Has been closed for 1 year . Fide Reis, 11/08/2023 1:59 PM [facility] Declined No Contract with Patient's Insurance Carrier N/A [address] [facility] [id number] Internal Comment last updated by Bill Olivera 11/15/2023 0840 Family doesn't want it here. Bill Olivera, 11/15/2023 8:40 AM [facility] B3.320 Declined TCU N/A [address] [place] [phone] -- Internal Comment last updated by Bill Olivera 11/09/2023 0829 PM&R continues to follow. If DC imminent, recommending TCU instead. Bill Olivera, 11/09/2023 8:29 AM Pending PMnR recs. Bill Olivera, 11/06/2023 11:04 AM [facility] Declined Facility Cannot Provide for Patient's needs N/A [address] [place] [address] [phone] -- [facility] Declined Closed N/A [address] [place] [address] [phone] -- Internal Comment last updated by Marycarmen Caldwell 11/09/2023 1034 Permanently closed [facility] Declined Family choice N/A 8[address] [facility] [address] [phone] -- Internal Comment last updated by Fide Reis 11/14/2023 0916 LVM for admissions. Fide Reis, 11/14/2023 9:16 AM [facility] Declined Family choice N/A [address] [facility] [address] [phone] -- [facility] [place] [facility] Declined Family choice N/A [address] [facility] [address] [phone] -- [facility] Declined Bed not available N/A [address] [facility] [address] [phone] -- Home Medical Care Coordination has not been started for this encounter. ILLERY MILLER HELPER * Gregg Dexter MD - 11/15/2023 7:20 [...] SQ BID GI prophylaxis: None Endocrine: restart bellman captain Metformin today Antibiotics: none Pain control: [...] 11/15/2023 09:51 PGY-5 General Surgery Resident Pager: [phone] or via Zdorovio FACULTY NOTE I saw and evaluated the patient on the date of the resident's note. I discussed with the resident and agree with the resident???s findings and plan documented in the resident???s note from above. Anyrevisions by me are documented. Gregg Dexter MD, 11/15/2023 3:39 PM ILLERY MILLER HELPER * Gregg Dexter MD - 11/14/2023 11:58 [...] documented. Gregg Dexter MD, 11/15/2023 3:38 PM ILLERY MILLER HELPER * Sharri Price, OTR/L - 11/14/2023 11:00 [...] Functional activity: 8 minutes RAFAEL Medellin/Kelton Pager: Zdorovio OT Department ILLERY MILLER HELPER * Carola Spence, STAFF OCCUPATIONAL THERAPIST - 11/14/2023 10:00 AM CST Images from [...] intensity rehab services S: We are in [place].. Well if we are in [place] I told Wan to go to the [...] Quality (General): Shuffling;Unsteady Stairs Assistive Devices Used: (STEEPLECHASE JOCKEY) Sitting Static Balance Level of Assistance: Upper [...] SLS) Vertical/horizontal head turns - slows requires STEEPLECHASE JOCKEY Amb slow/fast : no significant change achieved Education : TCU vs Acute rehab and amount of assist patient will require upon dc home which is likely general supervision Interdisciplinary Communication PA/INFANT TEACHER: discussed patient Employee Training Specialist: daughter wishing to discuss POA Family: present [...] transfer bed to/from chair with (6) Modified [place] with sliding board or pivot method. By 11-17-2023 Outcome: In progress Goal: Patient will transfer sit to/from stand Description: Patient will transfer sit to/from stand with (6) Modified [place] By 11-17-2023. Outcome: In progress Problem: Decreased Ambulatory Skills Goal: Improve gait Description: Ambulate 100 meters using Front - wheeled walker with (6) Modified [place] By 11-17-2023. Outcome: In progress Goal: Improve gait on stairs Description: Ascend/descend 7 +7 stairs using Cane with (6) Modified [place] .By 11-17-2023 Outcome: In progress Problem: Decreased [...] least AD, stairs for home usage daily. STAFF OCCUPATIONAL THERAPIST Appropriate: Yes Carola Spence PTA 11/14/2023 Pager: [facility] PT Dept ILLERY MILLER HELPER * Sinai Brady PA-C - 11/14/2023 9:48 [...] II, and HLD, who was admitted to [facility] 11/04/2023 after being found unconscious at the [...] address self care, ADL's, adaptive equipment Continue DOCUMENT PREPARER MICROFILMING to address speech, swallow, communication, cognition Regarding [...] of this note have been dictated using All4Staff dictation software. Please excuse any director erp errors and feel free to contact me regarding such errors or confusion regarding intended message. Sinai Brady PA-C, CBIS Pager via Beepl Total time spent on this encounter, on the date of service including pre-visit review of separatelyobtained history, otpl-it-ncwz interaction performing medically appropriate physical exam, patient counseling/education, interpretation of diagnostic results, care coordination and documentation was 50 minutes. ILLERY MILLER HELPER * Sharri Price OTR/Kelton - 11/13/2023 4:49 [...] dressing task at Min A including donning crusher setter socks and shorts at EOB. Patient completing light g/h tasks while seated in chair bedside with s/u. 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 Acute Rehab if meets admission criteria No known barriers to placement Barriers to Discharge (DOCUMENT PREPARER MICROFILMING): NA - Post acute placement is recommended and no barriers to placement known. Post Discharge follow-up (DOCUMENT PREPARER MICROFILMING): DOCUMENT PREPARER MICROFILMING at post-acute placement Recommend PM&R Consult (DOCUMENT PREPARER MICROFILMING): Yes, for assessment of post-acute placement needs. Pt appears to be a candidate for higher intensity rehab services. Diet Recommendation: Current Diet : Regular Current Liquid: Thin liquids Medication Administration: Medications with thin liquid Aspiration Precautions: Upright with all eating and drinking Oral Hygiene: Tiller teeth 2x/day Positioning Techniques: Seat fully upright [...] Cognitive communication deficit R41.841, Treatment Type:Cognitive-linguistic Treatment (83722, 51346) Treatment Frequency: 2-3x per week CLINICAL IMPRESSIONS Severe cognitive-linguistic deficits within attention, memory, problem solving, reasoning, and executive functioning. Ongoing cognitive-linguistic dx/tx is needed. Speech-Language Pathologist: Sera Fleming SLP [facility], 11/13/2023 1:14 PM Pager: Telmediq ILLERY MILLER HELPER * Jesusita Aiken APRN, POLICE INSPECTOR - 11/13/2023 8:21 AM CST SURGERY TRAUMA [...] Jesusita Aiken APRN, EMILY, 11/13/2023 11:17 AM ILLERY MILLER HELPER * Carola Spence PTA - 11/12/2023 10:30 [...] (Numeric): 0 (reports she has no pain) O:Linux Kernel Developer Used: None needed Mental Status Mental Status: [...] Shuffling;Unsteady -with nonuse of gait and vs STEEPLECHASE JOCKEY - patient exhibits significantly shortened step length Stairs Number of Steps: 5 Stair Rails: Right rail Stairs : Minimal assist Stairs Method: Ascend step-to pattern;Descend reciprocal pattern (max verbal cues for sequencing) Assistive Devices Used: (STEEPLECHASE JOCKEY) -catches foot on each step Sitting Static [...] transfer bed to/from chair with (6) Modified [place] with sliding board or pivot method. By 11-17-2023 Outcome: In progress Goal: Patient will transfer sit to/from stand Description: Patient will transfer sit to/from stand with (6) Modified [place] By 11-17-2023. Outcome: In progress Problem: Decreased Ambulatory Skills Goal: Improve gait Description: Ambulate 100 meters using Front - wheeled walker with (6) Modified [place] By 11-17-2023. Outcome: In progress Goal: Improve gait on stairs Description: Ascend/descend 7 +7 stairs using Cane with (6) Modified [place] .By 11-17-2023 Outcome: In progress Problem: Decreased [...] least AD, stairs for home usage daily. STAFF OCCUPATIONAL THERAPIST Appropriate: Yes Carola Spence PTA 11/12/2023 Pager: Zdorovio PT Dept ILLERY MILLER HELPER * Gregg Dexter MD - 11/12/2023 7:59 [...] documented. Gregg Dexter MD, 11/12/2023 7:19 PM ILLERY MILLER HELPER * Amelia Lobo MD - 11/11/2023 7:53 [...] 11/11/2023 07:56 PGY-5 General Surgery Resident Pager: [phone] or via Telmediq ILLERY MILLER HELPER Associated attestation - Mariama Catherine DO - 11/12/2023 2:39 PM DISTILLERY MILLER HELPER FACULTY NOTE I saw and evaluated the [...] on the Primary Treatment Team, click here. ILLERY MILLER HELPER Associated attestation - Mariama Catherine DO - 11/12/2023 2:39 PM DISTILLERY MILLER HELPER FACULTY NOTE I saw and evaluated the patient on the date of the resident's note. I discussed with the resident and agree with the resident???s findings and plan documented in the resident???s note from above. Anyrevisions by me are documented. Mariama Catherine DO, 11/12/2023 2:39 PM * Oilvia Johnson RN - 11/09/2023 11:34 PM CST Shift [phone] Pt A&O to self and family member, pt pleasantly confused, spouse at bedside, pt VSS, on 2L to 4L via facemask to maintain oxygen above 90%. Pt denies bonita, pt up with AX1 with GB and walker, call light within reach, bed alarm on. ILLERY MILLER HELPER * Carola Spence PTA - 11/09/2023 3:35 [...] patient adamantly denies having pain this PM O:Linux Kernel Developer Used: None needed Mental Status Mental Status: [...] With approach Clarissa is in bed - senior mortgage underwriter notes significant improvement in alertness and participation in therapy this PM. She is pleasantly confused and often reports we are in [place], [place] - writerredirects that she is at the hospital in [place], [place]. Exhibits significant improvement with ambthis PM [...] transfer bed to/from chair with (6) Modified [place] with sliding board or pivot method. By 11-17-2023 Outcome: In progress Goal: Patient will transfer sit to/from stand Description: Patient will transfer sit to/from stand with (6) Modified [place] By 11-17-2023. Outcome: In progress Problem: Decreased Ambulatory Skills Goal: Improve gait Description: Ambulate 100 meters using Front - wheeled walker with (6) Modified [place] By 11-17-2023. Outcome: In progress Goal: Improve gait on stairs Description: Ascend/descend 7 +7 stairs using Cane with (6) Modified [place] .By 11-17-2023 Outcome: In progress Problem: Decreased [...] least AD, stairs for home usage daily. STAFF OCCUPATIONAL THERAPIST Appropriate: Yes Carola Spence PTA 11/09/2023 Pager: Telmediq PT Dept ILLERY MILLER HELPER * Juhi Dent, PharmD - 11/09/2023 2:58 [...] ordered Juhi Dent, WalterD 11/09/2023 14:58 Telmediq ILLERY MILLER HELPER * Sera Fleming SLP CCC - 11/09/2023 11:20 AM CST Speech Language Pathology: Attempted to see patient this am x2. Pt sleeping soundly and not waking sufficiently for tx. Will re-attempt to see patient today as schedule permits. Sera Fleming SLP CCC, 11/09/2023 11:20 AM ILLERY MILLER HELPER * Jesusita Aiken, MVA STILL OPERATOR, POLICE INSPECTOR - 11/09/2023 7:31 AM CST SURGERY TRAUMA PROGRESS NOTE -INFANT TEACHER Lucinda Kennedy : 1940 Sex: female ASSESSMENT: [...] Resident and Staff Physician. Jesusita Aiken APRN, POLICE INSPECTOR, 11/09/2023 7:32 AM Discharge Milestones Documentation Discharge Milestones completed daily by the documenting provider on the Primary Treatment Team, click here. ILLERY MILLER HELPER * Carola Spence, STAFF OCCUPATIONAL THERAPIST - 11/08/2023 2:30 PM CST Physical Therapy [...] perform) Heel/Toe Raises: 10 reps Interdisciplinary Communication PA/INFANT TEACHER: updated PM&R PA following session RN: ok [...] bed and her eyes are closed. When senior mortgage underwriter states her voice she responds right away but her eyes do not open. Labor Economics Teacher cues patient to move supine > seated [...] transfer bed to/from chair with (6) Modified [place] with sliding board or pivot method. By 11-17-2023 Outcome: In progress Goal: Patient will transfer sit to/from stand Description: Patient will transfer sit to/from stand with (6) Modified [place] By 11-17-2023. Outcome: In progress Problem: Decreased Ambulatory Skills Goal: Improve gait Description: Ambulate 100 meters using Front - wheeled walker with (6) Modified [place] By 11-17-2023. Outcome: In progress Goal: Improve gait on stairs Description: Ascend/descend 7 +7 stairs using Cane with (6) Modified [place] .By 11-17-2023 Outcome: In progress Problem: Decreased [...] least AD, stairs for home usage daily. STAFF OCCUPATIONAL THERAPIST Appropriate: Yes Carola Spence PTA 11/08/2023 Pager: [facility] ILLERY MILLER HELPER * Bill Olivera - 11/08/2023 12:37 PM CSTSummary: DC Planning DC Planning Patient is near medical readiness to DC to next level of care. It is not yet clear if she will be aKnapp candidate yet. Labor Economics Teacher spoke with patient's daughter over the phone. Also, had spoken with patient's father earlierin the week. We will start looking for TCUs around [place]. Also, she will do further research and call me back with more options. CC explained that we can't guarantee placement in their preferred place, this is up to facility, insurance coverage and bed availability. Also, Medicare patients will not be able to stay in the hospital indefinitely while we look for their preferred TCU. ILLERY MILLER HELPER * Victor M Enrique MD - 11/08/2023 12:00 PM CST Images from the original note were not included. SURGERY TRAUMA PROGRESS NOTE -PGY 1 Lucinda Romo Kennedy : 1940 Sex: female ASSESSMENT: 83 y.o. yo female with SDH R cerebral convexity and falx, scattered SAH and periventricular hemorrhage . The following services have been consulted PM&R, DOCUMENT PREPARER MICROFILMING. Night Events: Nurse reported weakness of right leg overnight during neuro checks, upon examination by overnight resident determined decreased rom 2/2 to right ankle pain. -Pt required 3 prn doses of labetalol overnight to maintain goal of sbp<160 Day Events: -Patient cleared by DOCUMENT PREPARER MICROFILMING and has resumed regular diet -Restarted prior oral bp regimen -CXR not concerning for pneumonia -Procal WNL -Started Naproxen BID and STAFF OCCUPATIONAL THERAPIST allopurinol for suspected gout flare PLAN: Diet: [...] Victor M Enrique MD, 11/09/2023 8:29 AM ILLERY MILLER HELPER * Sinai Brady PA-C - 11/08/2023 11:33 AM CST Physical Medicine & Rehabilitation Follow-Up Lucinda Kennedy : 1940 Sex: female Patient lethargic, rouses briefly to acknowledge senior mortgage underwriter before returning to sleep. Unable to maintain [...] II, and HLD, who was admitted to [facility] 11/04/2023 after being found unconscious at the [...] address self care, ADL's, adaptive equipment Continue DOCUMENT PREPARER MICROFILMING to address speech, swallow, communication, cognition Regarding [...] of this note have been dictated using All4Staff dictation software. Please excuse any director erp errors and feel free to contact me regarding such errors or confusion regarding intended message. Sinai Brady PA-C Pager via Beepl ILLERY MILLER HELPER * Ruby Franklin, OTR/L - 11/08/2023 10:10 AM CST OT NOTE: Attempted OT session but pt was too lethargic to meaningful participate, falling asleep quickly andmumbling responses to questions. Will try to return later this PM as schedule allows (tomorrow willschedule session in the PM as RN reports she is usually more alert after 2:00pm). Aubree Franklin, OTR / L 11/08/2023 ILLERY MILLER HELPER * Sera Fleming, STEPHIE [facility] - 11/08/2023 9:26 AM CST Speech-Language Pathology Progress Note 11/08/2023 DOCUMENT PREPARER MICROFILMING Recommendations Discharge Recommendations (DOCUMENT PREPARER MICROFILMING): Post-acute placement recommended. Acute Rehab if meets admission criteria No known barriers to placement Barriers to Discharge (DOCUMENT PREPARER MICROFILMING): NA - Post acute placement is recommended and no barriers to placement known. Post Discharge follow-up (DOCUMENT PREPARER MICROFILMING): DOCUMENT PREPARER MICROFILMING at post-acute placement Recommend PM&R Consult (DOCUMENT PREPARER MICROFILMING): Yes, for assessment of post-acute placement needs. Pt appears to be a candidate for higher intensity rehab services. 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 Cognitive-linguistic assessment not completed. Once pt clears, suspect she will have very good participation as she participates well when more alert. Speech-Language Pathologist: Sera Fleming SLP [facility], 11/08/2023 9:26 AM Pager: [employer] ILLERY MILLER HELPER * Sinai Brady PA-C - 11/07/2023 3:57 PM CST Physical Medicine & Rehabilitation Follow-Up Lucinda Ryans : 1940 Sex: female Patient lethargic, rouses briefly and acknowledges senior mortgage underwriter, answers a few questions but unclear reliability, [...] II, and HLD, who was admitted to [facility] 11/04/2023 after being found unconscious at the [...] address self care, ADL's, adaptive equipment Continue DOCUMENT PREPARER MICROFILMING to address speech, swallow, communication, cognition Regarding [...] of this note have been dictated using All4Staff dictation software. Please excuse any director erp errors and feel free to contact me regarding such errors or confusion regarding intended message. Sinai Brady PA-C Pager via Beepl Total time spent on this encounter, on the date of service including pre-visit review of separatelyobtained history, xzic-qr-[id number] interaction performing medically appropriate physical exam, patient counseling/education, interpretation of diagnostic results, care coordination and documentation was 35 minutes. ILLERY MILLER HELPER * Jazmine Thompson V - 11/07/2023 3:09 PM CST CULTURAL ASSESSMENT: SUMMARY: This senior mortgage underwriter saw pt. At 12:26 PM on 11/07/2023. Labor Economics Teacher introduced herself to pt.'s , and discussed with him on senior mortgage underwriter's role. Labor Economics Teacher asked pt.'s if he had any questions, comments, or concerns regarding pt.'s care. Pt.'s mentioned that he doesn't really know anything, so he will wait and see if later he would need assistance from senior mortgage underwriter. Labor Economics Teacher gave her contact information for any future questions, comments, or concerns. Jazmine Thompson V, 11/07/2023 3:27 PM ILLERY MILLER HELPER * Sera Fleming SLP [facility] - 11/07/2023 2:41 PM CST Speech-Language Pathology Progress Note 11/07/2023 DOCUMENT PREPARER MICROFILMING Recommendations Discharge Recommendations (DOCUMENT PREPARER MICROFILMING): Post-acute placement recommended. Acute Rehab if meets admission criteria No known barriers to placement Barriers to Discharge (DOCUMENT PREPARER MICROFILMING): NA - Post acute placement is recommended and no barriers to placement known. Post Discharge follow-up (DOCUMENT PREPARER MICROFILMING): DOCUMENT PREPARER MICROFILMING at post-acute placement Recommend PM&R Consult (DOCUMENT PREPARER MICROFILMING): Yes, for assessment of post-acute placement needs. Pt appears to be a candidate for higher intensity rehab services. 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 Safe to restart baseline diet of regular textures and thin liquids. Ensure pt is upright for all PO intake and is alert. Speech-Language Pathologist: Sera Fleming SLP [facility], 11/07/2023 2:44 PM Pager: [employer] ILLERY MILLER HELPER * Juan Loera MD - 11/07/2023 10:42 AM CST SURGERY TRAUMA PROGRESS NOTE -PGY 1 Lucinda Ryans : 1940 Sex: female ASSESSMENT: 83 y.o. yo female with SDH R cerebral convexity and falx, scattered SAH and periventricular hemorrhage . The following services have been consulted PM&R, DOCUMENT PREPARER MICROFILMING. Night Events: -Pt reported to be pulling out lines overnight, given zyprexa 10 mg for agitation Day Events: -Patient diet changed to NPO due to aspiration concerns -Held oral antihypertensives to start tomorrow pending clearance from DOCUMENT PREPARER MICROFILMING -Start Maintenance fluids LR 110ml/hr ending 11/08/23 [...] for her mother. Advised to speak with social media developer to start paperwork. Updated family on plan. [...] on the Primary Treatment Team, click here. ILLERY MILLER HELPER Associated attestation - Mariama Catherine DO - 11/12/2023 2:36 PM DISTILLERY MILLER HELPER FACULTY NOTE I saw and evaluated the [...] yet. Dt scheduling, unable to reschedule today. ILLERY MILLER HELPER * Sera Fleming, STEPHIE CCC - 11/07/2023 9:55 AM CST Speech-Language Pathology Progress Note 11/07/2023 DOCUMENT PREPARER MICROFILMING Recommendations Discharge Recommendations (DOCUMENT PREPARER MICROFILMING): Post-acute placement recommended. Acute Rehab if meets admission criteria No known barriers to placement Barriers to Discharge (DOCUMENT PREPARER MICROFILMING): NA - Post acute placement is recommended and no barriers to placement known. Post Discharge follow-up (DOCUMENT PREPARER MICROFILMING): DOCUMENT PREPARER MICROFILMING at post-acute placement Recommend PM&R Consult (DOCUMENT PREPARER MICROFILMING): Yes, for assessment of post-acute placement needs. Pt appears to be a candidate for higher intensity rehab services. Diet Recommendation: Current Diet : NPO Current Liquid: NPO Medication Administration: None orally Oral Hygiene: Tiller teeth 2x/day Instrumental Assessment Needed: No Additional Referrals Needed: None Page DOCUMENT PREPARER MICROFILMING if alertness levels improve. Will re-evaluate today [...] time. Education provided to at bedside re DOCUMENT PREPARER MICROFILMING role and delirium dysphagia. 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 Pt is pending further imaging to ensure no change in TBI. Recommend continuing NPO at this time. RN to page DOCUMENT PREPARER MICROFILMING with improved alertness levels and will see again today based on improvement. Speech-Language Pathologist: Sera Fleming, STEPHIE CCC, 11/07/2023 9:59 AM Pager: [employer] ILLERY MILLER HELPER * Ruby Franklin, OTR/L - 11/06/2023 4:39 [...] mgmt/ADL: 25 minutes Ruby Franklin, OTR/L Pager: [facility] OT Department ILLERY MILLER HELPER * Sera Fleming SLP CCC - 11/06/2023 2:32 PM CST Speech Language Pathology: Pt not seen today d/t staffing and time constraints. Will plan to see pt tomorrow for cognitive-linguistic dx/tx and swallow follow up. Sera Fleming SLP CCC, 11/06/2023 2:32 PM ILLERY MILLER HELPER * Shy Higuera - 11/06/2023 11:04 AM CST Was unable to draw blood because nurse requested lab to come back later. Notified YOVANY Cornejo at 11:04. Patient's visitor stated that these labs are duplicate, informed YOVANY Cornejo she will call lab if needed. Shy Higuera, 11/06/2023 11:04 AM ILLERY MILLER HELPER * Bill Olivera - 11/06/2023 10:56 AM CSTSummary: Care Coordination Assessment Care Coordination Assessment Expected DC Date: 11/07/2023 Social Information Linux Kernel Developer Used: None needed Decision Maker at Admission: [...] Risks for Readmission: Access to f/u appointments transit manager will continue to follow until DC [...] DO Inbasket notification sent via Care Everywhere ILLERY MILLER HELPER * Karime Allison PA-C - 11/06/2023 8:06 [...] intact Motor: Follows commands x4 extremities, 5/5 crusher setter strength and plantar/dorsiflexion bilaterally, no pronator drift [...] PRN Neurosurgery will follow peripherally, please contact assistant manager of operations resident with any questions or concerns. Staffed with Karime Sheikh PA-C, 11/06/2023 8:06 AM Neurosurgery ALICIA Discharge Milestones Documentation Discharge Milestones completed daily by the documenting provider on the Primary Treatment Team, click here. ILLERY MILLER HELPER * Derek Marie RN - 11/06/2023 12:58 [...] unit. Derek Marie RN, 11/06/2023 1:00 AM ILLERY MILLER HELPER * Gale Nassar MDIV - 11/05/2023 4:48 [...] Gale Nassar MDIV, 11/05/2023 4:49 PM Pager: [phone] ILLERY MILLER HELPER * Kindra Nichole RN - 11/05/2023 1:19 AM CST Upon admission, a Four Eyes Skin Inspection was completed with Rafa Goodman RN. Skin injuries were NOT present, and skin breakdown needing further assessment will be added to Avatar. Will implement interventions from Skin INJURY Bundle as appropriate. Kidnra Nichole RN, 11/05/2023 1:20 AM ILLERY MILLER HELPER * Hernandez Mathur MD - 11/05/2023 12:[place] [address] [facility]#: [id number] PATIENT: LUCINDA KENNEDY : 1940 DATE DICTATED: 11/05/2023 SURGERY STAFF DAILY PROGRESS NOTE DATE OF SERVICE: 11/05/2023 I saw and evaluated the patient. I discussed management with residents, POLICE INSPECTOR, and PAs on the Neurosurgery team and [...] PhD Staff Physician Neurosurgery Service Received in Manager Core: 11/05/2023 17:07:17 M: /[id number] AK/MODL ILLERY MILLER HELPER documented in this encounter H&P Notes * [...] Team Notified by: Zipit Alert received at 2003 Tier Level page received at 2015 Staff Surgeon: Quinn Covarrubias MD Pediatric Patient < 15 years: No. [place] Trauma Team Time Out Completed: No HISTORY [...] diagnostic studies, procedures and surgery) Admit to [facility] Trauma Surgery Service Neurosurgery Consult paged out. Neurosurgery resident arrived at 2310. Consult to SICU Full Code Cardiac Monitoring q1Hr neuro checks, CMS checks Incentive Spirometer Bedrest with C, T, & L spine precautions C-spine exam and possible clearance once final reads posted NPO until final reads on radiography Consult DOCUMENT PREPARER MICROFILMING and keep strict NPO if Age > [...] DO, 11/04/2023 10:54 PM General Surgery PGY1 [facility] Surgery Service ILLERY MILLER HELPER Associated attestation - Quinn Covarrubias MD - 11/05/2023 10:43 AM DISTILLERY MILLER HELPER FACULTY NOTE I saw and evaluated the [...] Patient Risks discussed: Pain, bleeding and infection [place] protocol: Patient identity confirmed: Verbally with patient, [...] complications Priscilla Holcomb MD, 11/04/2023 11:43 PM ILLERY MILLER HELPER Associated attestation - Rito Graf MD - 11/05/2023 2:30 AM DISTILLERY MILLER HELPER I was present for the entire procedure. [...] contact pharmacist on service at [facility] ([facility]) [phone]. If no response within needed timeframe, please contact central pharmacy via phone at [phone]. Planned discharge medications are: Medication List Medications [...] 3 capsules (225 mg) by mouth daily. ILLERY MILLER HELPER * Tamiko Westbrook LGSW - 11/15/2023 8:32 AM CSTAssociated Order(s): CONSULT TO LINSEED CAKE TRIMMER Science Interpreter Note Acknowledged consult place for support with [...] elderly parents. Will send to e- mail: [email or web address] (I sent supporting resources as requested) ILLERY MILLER HELPER * Isabel Day - 11/14/2023 2:18 PM [...] was no one else in the room. Labor Economics Teacher greeted Patient, introduced herself, and offered music. Patient was pleasantly confused and asked Labor Economics Teacher to sit down. Labor Economics Teacher sat down and got out her guitar. Patient chatted with Labor Economics Teacher. Labor Economics Teacher played a song for Patient on guitar and sang. During the music, Patient looked at the television. After the song, Patient talked about the circumstances leading to her hospitalization and about a possibly surgery. Patient told Labor Economics Teacher she is waiting for her to return after checking on their house in [place]. Labor Economics Teacher played a second song, After the music, Patient commented that the music was very beautiful. Labor Economics Teacher ended the session and Patient thanked Labor Economics Teacher. Goals Addressed: Psychosocial Support and Mood Enhancement Plan: Labor Economics Teacher will continue to offer music therapy to Patient when possible. Isabel Day, 11/14/2023 2:18 PM ILLERY MILLER HELPER * Kasey Ennis, PT - 11/06/2023 9:02 [...] History of Falling Z 91.81 PRECAUTIONS [place] Linux Kernel Developer Used: None needed ACTIVITY Up with Assist [...] math, 92, 102) hospital, Alert, and Cooperative [place] OBJECTIVE Initial patient presentation upon PT arrival: [...] EOB upon arrival, eating breakfast. She seems [place], slightly confused but cooperative. She has good [...] AD, stairs for home usage daily. . STAFF OCCUPATIONAL THERAPIST Appropriate: Yes Participated in goal setting and treatment planning: Patient, Stick Roller/Significant Other Agrees with goals and treatment plan: Patient - Yes, Caregiver/Significant Other - Yes. Kasey Ennis, PT 11/06/2023 Pager: [facility] PT Department ILLERY MILLER HELPER * Devyn Jamil MD - 11/06/2023 7:41 AM CST Images from the original note were not included. Physical Medicine & Rehabilitation Consultation Patient Name: Lucinda Kennedy : 1940 Medical Record: [id number] PRIMARY CARE PHYSICIAN: No primary care provider on file. REQUESTING PHYSICIAN: Quinn Covarrubias MD REASON FOR CONSULT: I was asked to evaluate this patient regarding their rehabilitation needs and appropriateness for acute rehabilitation. HISTORY OF PRESENT PROBLEM I personally reviewed the patient's medical record from the most recent [facility] admission including yet not limited to notes as below and summarized it below in conjunction with interview with the patient and patient's . Lucinda Kennedy is a 83 y.o. RHD female with chronic medical conditions including HTN, DM II, and HLD, who was admitted to [facility] 11/04/2023 after being found unconscious at the [...] she couldn't come up with the name. DOCUMENT PREPARER MICROFILMING (11/05/23) Functional oropharyngeal swallow. Safe for regular [...] of the thoracic or lumbar spine. 2. Hqtu-ee-uxchhsmw lumbar spondylosis without suspected high-grade spinal canal or neural foraminal narrowing. CT L-Spine (11/04/23) IMPRESSION Impression: 1. No suspected acute fracture or dislocation of the thoracic or lumbar spine. 2. Jyjp-tx-asedbhib lumbar spondylosis without suspected high-grade spinal canal [...] II, and HLD, who was admitted to [facility] 11/04/2023 after being found unconscious at the [...] address self care, ADL's, adaptive equipment Continue DOCUMENT PREPARER MICROFILMING to address speech, swallow, communication, cognition Regarding [...] occur at the acute level such as [place] where she can participate in 3hrs/day and [...] service including pre-visit review of separatelyobtained history, otyt-ck-xnqt interaction performing medically appropriate physical exam, patient counseling/education, interpretation of diagnostic results, care coordination and documentation was 60 minutes. ILLERY MILLER HELPER * Ruby Franklin, OTR/L - 11/05/2023 1:53 [...] 10 minutes Therapist: Ruby Franklin OTR/L Pager: [facility] Occupational Therapy Department ILLERY MILLER HELPER * Reynaldo Anderson PA-C - 11/05/2023 12:41 [...] though 2 of 3 serve in the ([place] and one may be a Dog Boarder?). She jokes about how long she has been to [place]. 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 Seen this afternoon, she is not oriented to time or place. No family present. She does indicate to me she prefers to go by [facility]. She was able to tell me a lot about her 3 grandsons that make her veryproud, sounds as though 2 of 3 serve in the ([place] and one may be a Dog Boarder?). She jokes about how long she has been to [place]. 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 ILLERY MILLER HELPER * Sera Fleming SLP [facility] - 11/05/2023 9:56 AM CST SPEECH-LANGUAGE PATHOLOGY CONSULTATION DOCUMENT PREPARER MICROFILMING Recommendations Discharge Recommendations (DOCUMENT PREPARER MICROFILMING): Post-acute placement recommended. Acute Rehab if meets admission criteria No known barriers to placement Barriers to Discharge (DOCUMENT PREPARER MICROFILMING): NA - Post acute placement is recommended and no barriers to placement known. Post Discharge follow-up (DOCUMENT PREPARER MICROFILMING): DOCUMENT PREPARER MICROFILMING at post-acute placement Recommend PM&R Consult (DOCUMENT PREPARER MICROFILMING): Yes, for assessment of post-acute placement needs. Pt appears to be a candidate for higher intensity rehab services. Diet Recommendation: Current Diet : Regular Current Liquid: Thin liquids Medication Administration: Medications with thin liquid Aspiration Precautions: Upright with all eating and drinking Oral Hygiene: Tiller teeth 2x/day Positioning Techniques: Seat fully upright [...] Admitted to SICU for close neuro monitoring. DOCUMENT PREPARER MICROFILMING consulted to evaluate a marge function. SUBJECTIVE Barriers to Learning: No caregiver present;Cognitive linguistic deficit Barriers to Discharge (DOCUMENT PREPARER MICROFILMING): NA - Post acute placement is recommended [...] intact. EDUCATION Audience: Patient Education: results of assessment;DOCUMENT PREPARER MICROFILMING scope of practice;DOCUMENT PREPARER MICROFILMING plan of care;recommendation for additional therapy Speech-Language Pathologist: Sera Fleming, [facility], 11/05/2023 9:56 AM Pager: Telmediq ILLERY MILLER HELPER * Cale Thompson MD - 11/05/2023 1:00 AM CSTAssociated Order(s): CONSULT TO [facility] SICU CONSULT - G3 Lucinda Ryans : [...] pulmonary toilet Gastrointestinal/Nutrition: Assessment: NPO, will need DOCUMENT PREPARER MICROFILMING clearance prior to diet Plan: - Continue NPO - DOCUMENT PREPARER MICROFILMING Electrolytes: Assessment: otherwise grossly within normal limits. [...] Component Value Date/Time PHART 7.37 11/05/2023 0118 NYL6KQQ 43 11/05/2023 0118 PO2ART 83 11/05/2023 0118 LGQ1BFP 25 11/05/2023 0118 [id number] 96 11/05/2023 0118 BEART -0.3 11/05/2023 0118 Labs and imaging reviewed. Art Thompson MD - PGY-3 Surgery Service Pager: Telmedi[employer] This patient was seen in consultation for critical care management requested by Devin Dougherty MD;P* ILLERY MILLER HELPER Associated attestation - Quinn Covarrubias MD - 11/05/2023 10:44 AM DISTILLERY MILLER HELPER FACULTY NOTE I saw and evaluated the [...] elbow flex/ext. 5/5 wrist flex/ext. 5/5 hand crusher setter. LUE: 5/5 shoulder abduction. 5/5 elbow flex/ext. 5/5 wrist flex/ext. 5/5 hand crusher setter. Lower Extremities: RLE: 5/5 hip flexion. 5/5 knee flex/ext. 5/5 ankle plantar-/dorsiflexion. 5/5 EHL. LLE: 5/5 hip flexion. 5/5 knee flex/ext. 5/5 ankle plantar-/dorsiflexion. 5/5 EHL Sensory: Sensation intact in all 4 extremities REVIEW OF LABORATORY, PATHOLOGY, AND RADIOLOGY DATA: [facility] Lab Results Component Value Date/Time NA [...] independently reviewed: Laboratory results and Radiology images ILLERY MILLER HELPER Associated attestation - Marina Shaffer MD - 11/05/2023 4:13 PM DISTILLERY MILLER HELPER 83 year old woman presented after presumed [...] Oximetry - Continuous (ICU) Oxygen Consult to Assistant At Surgery CONSULT TO PALLIATIVE CARE Straight Cath Protocol [...] RN in EDSTAB 2 at 11/04/2023 22:55:31 DISTILLERY MILLER HELPER by Eleni Spring MLS. ED HEMOGLOBIN TOTAL (ED ONLY) - Abnormal Hgb 10.3 (*) LACTATE (LACTIC ACID) - Abnormal Lactate 2.7 (*) Narrative: Send specimen on ice! PTT (APTT) - Abnormal APTT 22.9 (*) ANTI XA HEPARIN UNFRACTIONATED - Abnormal Anti XA Hep U <0.04 (*) URINALYSIS,TOTAL - Abnormal Color COLORLESS Appearance CLEAR Urine Glucose 100 (*) Bili UA NEGATIVE Ketones NEGATIVE Specific Pitcher 1.036 (*) Blood Ur NEGATIVE PH Urine 7.5 (*) Protein Ur TRACE Urobilinogen NORMAL Nitrite Ur NEGATIVE Leuk Est NEGATIVE WBC Ur 0-5 RBC Ur 0-3 SQ EPITH 0-5 Urinalysis Performed at: [facility] FIBRINOGEN Fibrinogen 288 PRECAUTIONARY TUBE Prec Tube [...] hemorrhage Vanna Parekh PA-C, 11/05/2023 3:11 AM ILLERY MILLER HELPER * Kathy Worthington RN - 11/05/2023 12:09 AM CST Bed: A08 Expected date: Expected time: Means of arrival: Comments: Stab 2 ILLERY MILLER HELPER * Ana Ordaz RN - 11/04/2023 10:51 PM CST ED-residential lawn specialist-Note: --Pertinent Information: Pt arrives to ED after fall down flight of stairs. --Pt's , daughter and son in law were on scene and are all coming to [facility]. --Family contact: Daughter Zain #[phone] / Son in Law # [phone] Ana Ordaz RN ILLERY MILLER HELPER * Rafa Hutchins RN - 11/04/2023 10:40 PM CST BIBA from home after called when he heard her fall downstairs. Upon EMS arrival, patient was altered and lethargic. reports to EMS that patient is on blood thinners. 18g PIV left AC, 20g PIV right forearm. BG 272. Patient arrives to STAB Room awake, disoriented to time and situation. ILLERY MILLER HELPER documented in this encounter Miscellaneous Notes * Discharge non-MD/non-AVERY Summaries - Kasey Ennis, PT - 11/16/2023 9:19 AM CST Physical Therapy Inpatient Discharge Summary Lucinda Kennedy [id number] Diagnosis Patient Active Problem List Diagnosis Fall, [...] transfer bed to/from chair with (6) Modified [place] with sliding board or pivot method. By 11-17-2023 Outcome: In progress Goal: Patient will transfer sit to/from stand Description: Patient will transfer sit to/from stand with (6) Modified [place] By 11-17-2023. Outcome: In progress Problem: Decreased Ambulatory Skills Goal: Improve gait Description: Ambulate 100 meters using Front - wheeled walker with (6) Modified [place] By 11-17-2023. Outcome: In progress Goal: Improve gait on stairs Description: Ascend/descend 7 +7 stairs using Cane with (6) Modified [place] .By 11-17-2023 Outcome: In progress Problem: Decreased Functional Motor Skills - PT Goal: Patient demonstrates improved balance Description: Pt to score at least 45/56 Mitchell Balance to indicate decreased risk for falls By 11-17-2023 Outcome: In progress Plan: Discharge to Rehab Facility Physical Therapist: Kasey Ennis, PT Date: 11/17/2023 Pager: Zdorovio PT Department ILLERY MILLER HELPER * Discharge non-MD/non-AVERY Summaries - Bill Olivera - 11/16/2023 7:46 AM DISTILLERY MILLER HELPER Summary: DC to TCU Care Coordination Discharge Note Expected DC Date: 11/16/2023 Expected DC Time: 9 AM Final Discharge Destination: Destination Coordination complete. Service Provider Selected Services Address Phone Fax Theresa Yusuf, [facility] [address] [place] [address] [phone] Summary: Patient has been accepted to continue rehabing at the aforementioned post acute facility. Family onboard with plan. WC ride has been ordered for Fri at 9 am Medical team is aware. They will work writing DC orders. CC faxed DC orders to TCU via Sk[employer]. Medical team is aware any controlled substances must be printed and signed to be sent in physical form to the TCU. Also, PSC/WIRE WORKER will fax it to TCU temi. Bedside nurse please confirm this is done. A [employer] thread has been started. CC will continue to follow until DC. Please use Beepl for any further questions. ILLERY MILLER HELPER * Nursing Assessment - Karolyn Jacob RN [...] is set rajendra discharged today at 900. Karolyn Jacob RN, 11/16/2023 2:59 AM Neurologic/Cognitive Assessment [...] at bedside and sitting quietly at bedside ILLERY MILLER HELPER * Nursing Assessment - Lila Gaines, RN [...] Psychosocial Assessment Within Defined Limits except for: ILLERY MILLER HELPER * Discharge non-MD/non-AVERY Summaries - Nayeli Alvarado, DOCUMENT PREPARER MICROFILMING [facility] - 11/15/2023 4:35 PM CST SPEECH-LANGUAGE PATHOLOGY Discharge Summary 11/15/2023 DOCUMENT PREPARER MICROFILMING Recommendations Discharge Recommendations (DOCUMENT PREPARER MICROFILMING): Post-acute placement recommended. Acute Rehab if meets admission criteria No known barriers to placement Barriers to Discharge (DOCUMENT PREPARER MICROFILMING): NA - Post acute placement is recommended and no barriers to placement known. Post Discharge follow-up (DOCUMENT PREPARER MICROFILMING): DOCUMENT PREPARER MICROFILMING at post-acute placement Recommend PM&R Consult (DOCUMENT PREPARER MICROFILMING): Yes, for assessment of post-acute placement needs. Pt appears to be a candidate for higher intensity rehab services. Diet Recommendation: Current Diet : Regular Current Liquid: Thin liquids Medication Administration: Medications with thin liquid Aspiration Precautions: Upright with all eating and drinking Oral Hygiene: Tiller teeth 2x/day Positioning Techniques: Seat fully upright [...] hemianopsia. EDUCATION Audience: Patient Education: results of assessment;DOCUMENT PREPARER MICROFILMING scope of practice;DOCUMENT PREPARER MICROFILMING plan of care;recommendation for additional therapy Prognosis is good for increasing independence with iADLs. Speech-Language Pathologist: Nayeli Alvarado, DOCUMENT PREPARER MICROFILMING [facility], 11/15/2023 4:35 PM Pager: Telmediq ILLERY MILLER HELPER * Discharge non-MD/non-AVERY Summaries - Sharri Price, OTR/L - 11/15/2023 2:12 PM CST [facility] Occupational Therapy Discharge Summary Lucinda Kennedy [...] subacute rehab. Patient Name: Lucinda Kennedy MR#: [id number] Date of : 1940 Age: 83 y.o. [...] none (11/05/23 1400) Prior Level of Function (STAFF OCCUPATIONAL THERAPIST): ADLs/IADLs: No assistance required (Independent or modified [...] goals. Occupational Therapist: [facility] OT Department ILLERY MILLER HELPER * Nursing Assessment - Dariana Alvarado RN - 11/15/2023 4:49 AM CST Nursing Assessment Head to Toe Head to Toe Assessment Shift Summary Shift [id number]: Pt is alert and oriented to self [...] for: Psychosocial Assessment: Observed Patient Behaviors: Restless ILLERY MILLER HELPER * Nursing Assessment - Tone Rosario RN [...] for: Psychosocial Assessment: Observed Patient Behaviors: Restless ILLERY MILLER HELPER * Nursing Assessment - Adelso Huber RN - 11/14/2023 4:30 PM DISTILLERY MILLER HELPER Nursing Assessment Head to Toe Head to [...] Behavior: at bedside and attentive to patient ILLERY MILLER HELPER * Nursing Assessment - Adelso Huber RN - 11/14/2023 10:17 AM DISTILLERY MILLER HELPER Nursing Assessment Head to Toe Head to [...] Behavior: at bedside and attentive to patient ILLERY MILLER HELPER * Nursing Assessment - Luisa Pablo, RN [...] Behavior: at bedside and attentive to patient ILLERY MILLER HELPER * Nursing Assessment - Sanjuana Reyes, RN [...] patient and participating in care Comments: Spouse ILLERY MILLER HELPER * Nursing Assessment - Nikole Diego RN [...] Behavior: at bedside and attentive to patient ILLERY MILLER HELPER * Nursing Assessment - Lila Reed RN [...] 6 Psychosocial Within Defined Limits Comments: present ILLERY MILLER HELPER * Nursing Assessment - Bianca Bell RN - 11/12/2023 2:17 PM DISTILLERY MILLER HELPER Nursing Assessment Head to Toe Head to [...] Emotional State: Acceptance Family Behavior: not present ILLERY MILLER HELPER * Nursing Assessment - Teresita Vidales RN [...] 1640 -- 5 Psychosocial Within Defined Limits ILLERY MILLER HELPER * Nursing Assessment - Teresita Vidales RN [...] Emotional State: Acceptance Family Behavior: not present ILLERY MILLER HELPER * Nursing Assessment - Nikole Diego RN [...] as he expressed her confusion and decline ILLERY MILLER HELPER * Nursing Assessment - Carolina Awan RN [...] Cardiac Assessment Within Defined Limits except for: Real Estate Services Coordinator - remote telemetry Respiratory Assessment Within Defined [...] 1640 -- 4 Psychosocial Within Defined Limits ILLERY MILLER HELPER * Nursing Assessment - Carolina Awan RN - 11/10/2023 9:30 PM CST Nursing Assessment Head to Toe Head to Toe Assessment Shift Summary Shift Summary Neurologic/Cognitive Assessment Within Defined Limits except for: Orientation: disoriented to place, disoriented to time and disoriented to situation HEENT Within Defined Limits Cardiac Assessment Within Defined Limits except for: Real Estate Services Coordinator - remote telemetry Respiratory Assessment Within Defined [...] 1640 -- 4 Psychosocial Within Defined Limits ILLERY MILLER HELPER * Nursing Assessment - Elvira Benitez RN [...] for: Psychosocial Assessment: Verbalized Emotional State: Acceptance ILLERY MILLER HELPER * Nursing Assessment - Zaira Bellamy, RN [...] Pt stated she is going home today, Labor Economics Teacher reoriented to POC. Tylenol prn given for [...] for: Psychosocial Assessment: Verbalized Emotional State: Acceptance ILLERY MILLER HELPER * Nursing Assessment - Quynh Jenkins RN - 11/10/2023 6:46 AM CST Nursing Assessment Head to Toe Head to Toe Assessment Shift Summary Shift Summary Neurologic/Cognitive Assessment Within Defined Limits except for: Orientation: disoriented to place, disoriented to time and disoriented to situation Frequent Neuro Assessments have been documented in the flowsheets HEENT Within Defined Limits Cardiac Assessment Within Defined Limits except for: Real Estate Services Coordinator - remote telemetry Pacemaker: Pacemaker: No Respiratory [...] 1640 -- 3 Psychosocial Within Defined Limits ILLERY MILLER HELPER * Nursing Assessment - Anita Keating RN [...] Defined Limits except for: Chest Pain: No Real Estate Services Coordinator - remote telemetry Pacemaker: Pacemaker: No Respiratory [...] 3 Psychosocial Within Defined Limits Shift Summary ILLERY MILLER HELPER * Nursing Assessment - Anita Keating RN - 11/09/2023 11:44 AM CST Nursing Assessment Head to Toe Head to Toe Assessment Shift Summary Neurologic/Cognitive Assessment Within Defined Limits except for: Cognition: poor attention/concentration Level of Consciousness: Lethargic Frequent Neuro Assessments have been documented in the flowsheets HEENT Within Defined Limits Cardiac Assessment Within Defined Limits except for: Chest Pain: No Real Estate Services Coordinator - remote telemetry Pacemaker: Pacemaker: No Respiratory [...] 1640 -- 2 Psychosocial Within Defined Limits ILLERY MILLER HELPER * Nursing Assessment - Mayte Grover RN [...] Cardiac Assessment Within Defined Limits except for: Real Estate Services Coordinator - remote telemetry Respiratory Assessment Within Defined [...] 1640 -- 2 Psychosocial Within Defined Limits ILLERY MILLER HELPER * Nursing Assessment - Chucho Blair, RN [...] pivot to commode. Meds whole with water, mrk-li-t-time. Otherwise resting between cares with family present. Chucho Blair, RN, 11/08/2023 7:01 PM Neurologic/Cognitive Assessment Within Defined Limits except for: Cognition: poor attention/concentration Level of Consciousness: Lethargic Frequent Neuro Assessments have been documented in the flowsheets HEENT Within Defined Limits Cardiac Assessment Within Defined Limits except for: Real Estate Services Coordinator - remote telemetry Respiratory Assessment Within Defined [...] 1640 -- 2 Psychosocial Within Defined Limits ILLERY MILLER HELPER * Nursing Assessment - Tone Rosario RN [...] 1640 -- 1 Psychosocial Within Defined Limits ILLERY MILLER HELPER * Nursing Assessment - Toen Rosario RN - 11/07/2023 11:00 PM CST [...] 1640 -- 1 Psychosocial Within Defined Limits ILLERY MILLER HELPER * Nursing Assessment - Chucho Blair, RN [...] Cardiac Assessment Within Defined Limits except for: Real Estate Services Coordinator - remote telemetry Respiratory Assessment Within Defined [...] 1640 -- 1 Psychosocial Within Defined Limits ILLERY MILLER HELPER * Nursing Assessment - Chucho Blair, RN [...] less than 1 Psychosocial Within Defined Limits ILLERY MILLER HELPER * Nursing Assessment - Tone Rosario RN [...] less than 1 Psychosocial Within Defined Limits ILLERY MILLER HELPER * Nursing Assessment - Tone Rosario RN [...] less than 1 Psychosocial Within Defined Limits ILLERY MILLER HELPER * Nursing Assessment - Chantal Higgins RN [...] less than 1 Psychosocial Within Defined Limits ILLERY MILLER HELPER * Nursing Assessment - Chantal Higgins RN [...] 0710 -- 1 Psychosocial Within Defined Limits ILLERY MILLER HELPER * Nursing Assessment - Musa De La Torre RN - 11/06/2023 4:25 AM DISTILLERY MILLER HELPER Nursing Assessment Head to Toe Head to [...] Cardiac Assessment Within Defined Limits except for: Real Estate Services Coordinator - remote telemetry Respiratory Within defined limits [...] attentive to patient and interacting with patient ILLERY MILLER HELPER * Transfer - Musa De La Torre RN - 11/06/2023 12:20 AM CST Images from the original note were not included. TRANSFER IN NOTE D: Patient transferred in to [place] [id number] from [facility] at 2320. Patient condition on arrival: Alert, [...] De La Torre RN, 11/06/2023 12:22 AM ILLERY MILLER HELPER * Nursing Assessment - Derek Marie RN - 11/05/2023 10:33 PM CST Nursing Assessment Head to Toe Head to Toe Assessment Shift Summary Shift Summary Neurologic/Cognitive Assessment Within Defined Limits except for: Cognition: poor judgement/safety awareness Level of Consciousness: Lethargic Arousal Level: Arouses to pain HEENT Assessment Within Defined Limits except for: Cardiac Assessment Within Defined Limits except for: Heart sounds: S1, S2 Real Estate Services Coordinator - bedside telemetry ECG Rhythm: normal sinus [...] interacting with patient and participating in care ILLERY MILLER HELPER * Nursing Assessment - Eloise Randolph RN - 11/05/2023 8:00 PM CST Nursing Assessment Head to Toe Head to Toe Assessment Shift Summary SHIFT [id number] NEURO - Patient Alert to self, and [...] Cardiac Assessment Within Defined Limits except for: Real Estate Services Coordinator - bedside telemetry ECG Rhythm: normal sinus [...] with patient and sitting quietly at bedside ILLERY MILLER HELPER * Nursing Assessment - José Urbano RN [...] Cardiac Assessment Within Defined Limits except for: Real Estate Services Coordinator - bedside telemetry Lead Monitored: Lead II ECG Rhythm: normal sinus rhythm AL Interval (sec): 0.16 QRS Interval (sec): 0.13 [...] less than 1 Psychosocial Within Defined Limits ILLERY MILLER HELPER * Nursing Assessment - Eloise Randolph RN - 11/05/2023 4:00 PM CST Nursing Assessment Head to Toe Head to Toe Assessment Shift Summary Shift Summary Neurologic/Cognitive Assessment Within Defined Limits except for: Arousal Level: Arouses to voice Orientation: disoriented to time and disoriented to situation Mood/Behavior: Calm HEENT Within Defined Limits Cardiac Assessment Within Defined Limits except for: Real Estate Services Coordinator - bedside telemetry ECG Rhythm: normal sinus [...] with patient and sitting quietly at bedside ILLERY MILLER HELPER * Nursing Assessment - José Urbano RN [...] Cardiac Assessment Within Defined Limits except for: Real Estate Services Coordinator - bedside telemetry Lead Monitored: Lead II ECG Rhythm: normal sinus rhythm AL Interval (sec): 0.16 QRS Interval (sec): 0.13 [...] less than 1 Psychosocial Within Defined Limits ILLERY MILLER HELPER * Trauma Tertiary Exam - Jesusita Aiken APRN, EMILY - 11/05/2023 7:08 AM CST TRAUMA TERTIARY EXAM - INFANT TEACHER First Exam Lucinda Kennedy : 1940 Sex: [...] of the thoracic or lumbar spine. 2. 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 [email or web address] [email or web address]/Departments/[email or web address]/[email or web address].htm 1. In the past year: Have you felt you should cut down on your drinking? no 2. In the past year: Have people annoyed you by criticizing your drinking? no 3. In the past year: Have you felt bad or guilty about your drinking? no 4. 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 no Morris numb or detached from others, activities, or [...] SAH risk for bleeding Diet: NPO until DOCUMENT PREPARER MICROFILMING eval Activity: Up ad nia C/T/L-Spine status: cleared Weight-bearing status: no restrictions Therapy: PT, OT, OT for cognitive screen, and DOCUMENT PREPARER MICROFILMING Consulting Teams(s) Plan and/or Follow-up Recommendations: Neurosurgery: [...] recommendations, and To be determined. Jesusita Aiken, MVA STILL OPERATOR, POLICE INSPECTOR 11/05/2023 07:08 ILLERY MILLER HELPER * Nursing Assessment - Rafa Tineo RN [...] Cardiac Assessment Within Defined Limits except for: Real Estate Services Coordinator - bedside telemetry Lead Monitored: Lead II [...] Behavior: at bedside and interacting with patient ILLERY MILLER HELPER * Nursing Assessment - Rafa Tineo RN [...] Cardiac Assessment Within Defined Limits except for: Real Estate Services Coordinator - bedside telemetry Lead Monitored: Lead II [...] Behavior: at bedside and interacting with patient ILLERY MILLER HELPER * Interdisciplinary Note - Amelia Lobo MD - 11/05/2023 12:16 AM DISTILLERY MILLER HELPER Patient oriented to self, date, family and medical history. Discussed code status with patient. Shewishes to be full code accepting of CPR and intubation at this time. Amelia Lobo MD, MPH 11/05/2023 06:17 PGY-5 General Surgery Resident Pager: [phone] or via Zdorovio ILLERY MILLER HELPER * Interval Note Provider - Priscilla Holcomb MD - 11/04/2023 11:44 PM DISTILLERY MILLER HELPER PROCEDURES I performed the following procedures: Art Line Priscilla Holcomb MD, 11/04/2023 11:44 PM ILLERY MILLER HELPER * ED Faculty Note - Devin Dougherty [...] placement Devin Dougherty MD, 11/04/2023 11:13 PM ILLERY MILLER HELPER * ED Stabilization Note - Norm Hernandez MD - 11/04/2023 10:52 PM CST Emergency Medicine Stabilization Room Note Lucinda Kennedy 1940 Sex: female Patient Arrival Date and Time: 11/04/2023 10:[address] Dougherty EM Stabilization Resident Norm Hernandez Stabilization Team RN: Rafa Cornejo [facility]: [facility] Trauma Surgery and Neurosurgery Pre-Hospital Events Lucnida Kennedy is a 83 y.o. female presents [...] Disposition Admit to SICU Signed out to [facility] Procedures I performed the following procedures: Adult Trauma Resuscitation. Norm Hernandez MD, PGY-3 Emergency Medicine Resident ILLERY MILLER HELPER documented in this encounter Plan of Treatment Scheduled Referrals Name Type Priority Associated Diagnoses Orde r Schedule REFERRAL TO TRAUMATIC BRAIN INJURY Referral Routine Fall, initial encounter SDH (subdural hematoma) (CMS) SAH (subarachnoid hemorrhage) (CMS/HHS) Traumatic brain injury with loss of consciousness, initial encounter ([facility]) Ordered: 11/08/2023 documented as of this encounter Procedures Procedure Name Priority Date/Time Associated Diagnosis Comments PANEL BASIC METABOLIC (BMP) Routine 11/16/2023 7:22 AM DISTILLERY MILLER HELPER POC GLUCOSE Routine 11/16/2023 6:58 AM DISTILLERY MILLER HELPER POC GLUCOSE Routine 11/15/2023 9:15 PM DISTILLERY MILLER HELPER POC GLUCOSE Routine 11/15/2023 4:09 PM DISTILLERY MILLER HELPER POC GLUCOSE Routine 11/15/2023 12:46 PM DISTILLERY MILLER HELPER PANEL BASIC METABOLIC (BMP) Routine 11/15/2023 7:39 AM DISTILLERY MILLER HELPER POC GLUCOSE Routine 11/15/2023 6:11 AM DISTILLERY MILLER HELPER POC GLUCOSE Routine 11/14/2023 9:02 PM DISTILLERY MILLER HELPER POC GLUCOSE Routine 11/14/2023 4:21 PM DISTILLERY MILLER HELPER POC GLUCOSE Routine 11/14/2023 12:19 PM DISTILLERY MILLER HELPER PANEL BASIC METABOLIC (BMP) Routine 11/14/2023 8:59 AM DISTILLERY MILLER HELPER POC GLUCOSE Routine 11/14/2023 8:11 AM DISTILLERY MILLER HELPER POC GLUCOSE Routine 11/13/2023 9:15 PM DISTILLERY MILLER HELPER POC GLUCOSE Routine 11/13/2023 4:03 PM DISTILLERY MILLER HELPER POC GLUCOSE Routine 11/13/2023 11:21 AM DISTILLERY MILLER HELPER PANEL BASIC METABOLIC (BMP) Routine 11/13/2023 6:41 AM DISTILLERY MILLER HELPER POC GLUCOSE Routine 11/13/2023 6:31 AM DISTILLERY MILLER HELPER POC GLUCOSE Routine 11/12/2023 9:21 PM DISTILLERY MILLER HELPER POC GLUCOSE Routine 11/12/2023 4:12 PM DISTILLERY MILLER HELPER PANEL BASIC METABOLIC (BMP) Timed 11/12/2023 1:01 PM DISTILLERY MILLER HELPER POC GLUCOSE Routine 11/12/2023 12:14 PM DISTILLERY MILLER HELPER POC GLUCOSE Routine 11/12/2023 6:09 AM DISTILLERY MILLER HELPER POC GLUCOSE Routine 11/11/2023 8:48 PM DISTILLERY MILLER HELPER POC GLUCOSE Routine 11/11/2023 4:11 PM DISTILLERY MILLER HELPER POC GLUCOSE Routine 11/11/2023 11:47 AM DISTILLERY MILLER HELPER PHOSPHORUS Routine 11/11/2023 6:09 AM DISTILLERY MILLER HELPER PANEL BASIC METABOLIC (BMP) Routine 11/11/2023 6:09 AM DISTILLERY MILLER HELPER MAGNESIUM Routine 11/11/2023 6:09 AM DISTILLERY MILLER HELPER TC LAB BLOOD DRAW BY VENIPUNCTURE Routine 11/11/2023 6:09 AM DISTILLERY MILLER HELPER POC GLUCOSE Routine 11/10/2023 8:58 PM DISTILLERY MILLER HELPER POC GLUCOSE Routine 11/10/2023 4:16 PM DISTILLERY MILLER HELPER POC GLUCOSE Routine 11/10/2023 11:15 AM DISTILLERY MILLER HELPER PHOSPHORUS Routine 11/10/2023 6:17 AM DISTILLERY MILLER HELPER PANEL BASIC METABOLIC (BMP) Routine 11/10/2023 6:17 AM DISTILLERY MILLER HELPER MAGNESIUM Routine 11/10/2023 6:17 AM DISTILLERY MILLER HELPER PC LAB CBC/PLT Routine 11/10/2023 6:17 AM DISTILLERY MILLER HELPER POC GLUCOSE Routine 11/09/2023 9:41 PM DISTILLERY MILLER HELPER POC GLUCOSE Routine 11/09/2023 3:58 PM DISTILLERY MILLER HELPER ANTI XA ASSAY LMW HEPARIN Timed 11/09/2023 2:18 PM DISTILLERY MILLER HELPER POC GLUCOSE Routine 11/09/2023 11:28 AM DISTILLERY MILLER HELPER XR FOOT RIGHT 3 V AP/OBL/LAT* Routine 11/09/2023 10:36 AM DISTILLERY MILLER HELPER POC GLUCOSE Routine 11/09/2023 5:46 AM DISTILLERY MILLER HELPER PC VALPROIC ACID LEVEL DEPAHOTE Routine 11/09/2023 5:41 AM DISTILLERY MILLER HELPER PHOSPHORUS Routine 11/09/2023 5:41 AM DISTILLERY MILLER HELPER PANEL BASIC METABOLIC (BMP) Routine 11/09/2023 5:41 AM DISTILLERY MILLER HELPER MAGNESIUM Routine 11/09/2023 5:41 AM DISTILLERY MILLER HELPER PC LAB CBC/PLT Routine 11/09/2023 5:41 AM DISTILLERY MILLER HELPER POC GLUCOSE Routine 11/08/2023 8:40 PM DISTILLERY MILLER HELPER PHOSPHORUS Routine 11/08/2023 4:20 PM DISTILLERY MILLER HELPER PANEL BASIC METABOLIC (BMP) Routine 11/08/2023 4:20 PM DISTILLERY MILLER HELPER MAGNESIUM Routine 11/08/2023 4:20 PM DISTILLERY MILLER HELPER TC LAB BLOOD DRAW BY VENIPUNCTURE Routine 11/08/2023 4:20 PM DISTILLERY MILLER HELPER POC GLUCOSE Routine 11/08/2023 3:56 PM DISTILLERY MILLER HELPER POC GLUCOSE Routine 11/08/2023 11:03 AM DISTILLERY MILLER HELPER XR CHEST 1 VIEW AP OR PA* Routine 11/08/2023 6:30 AM DISTILLERY MILLER HELPER POC GLUCOSE Routine 11/08/2023 6:22 AM DISTILLERY MILLER HELPER POC GLUCOSE Routine 11/07/2023 9:34 PM DISTILLERY MILLER HELPER POC GLUCOSE Routine 11/07/2023 4:06 PM DISTILLERY MILLER HELPER POC GLUCOSE Routine 11/07/2023 11:45 AM DISTILLERY MILLER HELPER XR CHEST 2 VIEWS PA + LAT* Routine 11/07/2023 10:07 AM DISTILLERY MILLER HELPER PC PROCALCITONIN (PCT) Routine 8:34 AM DISTILLERY MILLER HELPER PHOSPHORUS Routine 11/07/2023 8:34 AM DISTILLERY MILLER HELPER PANEL BASIC METABOLIC (BMP) Routine 11/07/2023 8:34 AM DISTILLERY MILLER HELPER MAGNESIUM Routine 11/07/2023 8:34 AM DISTILLERY MILLER HELPER PC LAB CBC/PLT Routine 11/07/2023 8:34 AM DISTILLERY MILLER HELPER POC GLUCOSE Routine 11/07/2023 5:45 AM DISTILLERY MILLER HELPER POC GLUCOSE Routine 11/06/2023 9:21 PM DISTILLERY MILLER HELPER PHOSPHORUS Timed 11/06/2023 1:06 PM DISTILLERY MILLER HELPER PANEL BASIC METABOLIC (BMP) Timed 11/06/2023 1:06 PM DISTILLERY MILLER HELPER MAGNESIUM Timed 11/06/2023 1:06 PM DISTILLERY MILLER HELPER PC GASES,BLOOD,ANY COMB OF PH,PCD2,PO2,CO2,HCO2 Routine 11/06/2023 1:06 PM DISTILLERY MILLER HELPER PC LAB CBC/PLT Timed 11/06/2023 1:06 PM DISTILLERY MILLER HELPER POC GLUCOSE Routine 11/06/2023 1:04 PM DISTILLERY MILLER HELPER POC GLUCOSE Routine 11/06/2023 10:49 AM DISTILLERY MILLER HELPER PC MAGNESIUM, SERUM Routine 11/06/2023 6 :31 AM DISTILLERY MILLER HELPER PC PHOSPHORUS INORGANIC(PHOSPHATE) Routine 11/06/2023 6:31 AM DISTILLERY MILLER HELPER PC LAB CBC/PLT Routine 11/06/2023 6:31 AM DISTILLERY MILLER HELPER TC LAB BLOOD DRAW BY VENIPUNCTURE Routine 11/06/2023 6:31 AM DISTILLERY MILLER HELPER PROTHROMBIN (PT) & INR Timed 6:31 AM DISTILLERY MILLER HELPER PC LAB GLYCOSYLATED HGB Routine 11/06/2023 6:31 AM DISTILLERY MILLER HELPER POC GLUCOSE Routine 11/06/2023 5:39 AM DISTILLERY MILLER HELPER POC GLUCOSE Routine 11/05/2023 4:54 PM DISTILLERY MILLER HELPER MAGNESIUM Routine 11/05/2023 4:48 PM DISTILLERY MILLER HELPER POTASSIUM Routine 11/05/2023 4:48 PM DISTILLERY MILLER HELPER CT HEAD NO IV CONTRAST Timed 11:44 AM DISTILLERY MILLER HELPER POC GLUCOSE Routine 11/05/2023 11:11 AM DISTILLERY MILLER HELPER EKG ADULT (12-LEAD) Routine 11/05/2023 6 :38 AM DISTILLERY MILLER HELPER POC GLUCOSE Routine 11/05/2023 6:07 AM DISTILLERY MILLER HELPER CT HEAD NO IV CONTRAST Timed 4:54 AM DISTILLERY MILLER HELPER PC MAGNESIUM, SERUM Routine 11/05/2023 4 :27 AM DISTILLERY MILLER HELPER PC PHOSPHORUS INORGANIC(PHOSPHATE) Routine 11/05/2023 4:27 AM DISTILLERY MILLER HELPER PC GASES,BLOOD,ANY COMB OF PH,PCD2,PO2,CO2,HCO2 Routine 11/05/2023 4:27 AM DISTILLERY MILLER HELPER PC LAB CBC/PLT Routine 11/05/2023 4:27 AM DISTILLERY MILLER HELPER TC LAB BLOOD DRAW BY VENIPUNCTURE Routine 11/05/2023 4:27 AM DISTILLERY MILLER HELPER PC TROPONIN QUANTITATIVE Timed 11/05/2023 4:27 AM DISTILLERY MILLER HELPER PROTHROMBIN (PT) & INR Timed 4:27 AM DISTILLERY MILLER HELPER PC TROPONIN QUANTITATIVE Timed 11/05/2023 2:58 AM DISTILLERY MILLER HELPER PROTHROMBIN (PT) & INR STAT 1:32 AM DISTILLERY MILLER HELPER PHOSPHORUS STAT 11/05/2023 1:32 AM DISTILLERY MILLER HELPER PANEL BASIC METABOLIC (BMP) STAT 11/05/2023 1:32 AM DISTILLERY MILLER HELPER MAGNESIUM STAT 11/05/2023 1:32 AM DISTILLERY MILLER HELPER PANEL HEPATIC FUNCTION STAT 1:32 AM DISTILLERY MILLER HELPER FIBRINOGEN STAT 11/05/2023 1:32 AM DISTILLERY MILLER HELPER CK, TOTAL STAT 11/05/2023 1:32 AM DISTILLERY MILLER HELPER PC LAB CBC/PLT STAT 11/05/2023 1:32 AM DISTILLERY MILLER HELPER PC LAB PTT STAT 11/05/2023 1:32 AM DISTILLERY MILLER HELPER PC TROPONIN QUANTITATIVE Timed 11/05/2023 1:18 AM DISTILLERY MILLER HELPER PC LACTATE (LACTIC ACID) STAT 11/05/2023 1:18 AM DISTILLERY MILLER HELPER PC IONIZED,CALCIUM STAT 11/05/2023 1: 18 AM DISTILLERY MILLER HELPER PC GASES,BLOOD,ANY COMB OF PH,PCD2,PO2,CO2,HCO2 STAT 11/05/2023 1:18 AM DISTILLERY MILLER HELPER CT HEAD-NECK - ANGIO - W/IV CON STAT 11/05/2023 12:09 AM DISTILLERY MILLER HELPER PC LAB COMPLETE UA STAT 11/04/2023 11 :55 PM DISTILLERY MILLER HELPER PF INSERT CATH,ART,PERCUT,SANTA ERM Routine 11/04/2023 11:43 PM DISTILLERY MILLER HELPER ED EKG (12-LEAD) Routine 11/04/2023 11:2 [address] M[address] CT SPINE THORACIC NO IV CON STAT 11/04/2023 11:05 PM [address]ILLERY MILLER HELPER CT SPINE LUMBAR NO IV CON STAT 11/04/2023 11:05 PM DISTILLERY MILLER HELPER CT SPINE CERVICAL NO IV CON STAT 11/04/2023 11:05 PM DISTILLERY MILLER HELPER CT HEAD NO IV CONTRAST STAT 11:05 PM DISTILLERY MILLER HEL[address] CT CHEST/ABD/PELVIS W/IV CONT STAT 11/04/2023 11:05 PM DISTILLERY MILLER HELPER XR CHEST 1 VIEW AP OR PA* STAT 11/04/2023 10:57 PM DISTILLERY MILLER HELPER PC ELECTROLYTES PANEL STAT 11/04/2023 10:48 PM DISTILLERY MILLER HELPER TC LAB ER STAT TOTAL HGB STAT 11/04/2023 10:48 PM DISTILLERY MILLER HELPER PC LAB ED INR STAT 11/04/2023 10:45 PM DISTILLERY MILLER HELPER TC LAB BLOOD DRAW BY VENIPUNCTURE Routine 11/04/2023 10:45 PM DISTILLERY MILLER HELPER EXTRA TUBE - SST Routine 11/04/2023 10:4 5 PM DISTILLERY MILLER HELPER PC TROPONIN QUANTITATIVE STAT 11/04/2023 10:45 PM DISTILLERY MILLER HELPER PC LAB CBC W/DIFF & PLT STAT 11/04/2023 10:45 PM DISTILLERY MILLER HELPER PRECAUTIONARY TUBE STAT 11/04/2023 10 :45 PM DISTILLERY MILLER HELPER PC LACTATE (LACTIC ACID) STAT 11/04/2023 10:45 PM DISTILLERY MILLER HELPER PC GASES,BLOOD,ANY COMB OF PH,PCD2,PO2,CO2,HCO2 STAT 11/04/2023 10:45 PM DISTILLERY MILLER HELPER FIBRINOGEN STAT 11/04/2023 10:45 PM DISTILLERY MILLER HELPER PC HEPARIN ASSAY STAT 11/04/2023 10:4 5 PM DISTILLERY MILLER HELPER PC LAB PTT STAT 11/04/2023 10:45 PM DISTILLERY MILLER HELPER ED US CRITICAL CARE STAT 11/04/2023 1 0:40 PM DISTILLERY MILLER HELPER documented in this encounter Results * (ABNORMAL) PANEL BASIC METABOLIC (BMP) (11/16/2023 7:22 AM DISTILLERY MILLER HELPER) Sodium 143 135 - 148 mEq/L [facility] Potassium 3.9 3.5 - 5.3 mEq/L [facility] Chloride 105 92 - 108 mEq/L [facility] CO2 27 22 - 30 mEq/L [facility] AnGap 11 8 - 16 mEq/L [facility] Glucose 87 70 - 100 mg/dL [facility] BUN 23 8 - 23 mg/dL [facility] Creatinine 1.19(H) 0.50 - 1.00 mg/dL [facility] Calcium 9.4 8.8 - 10.2 mg/dL [facility] eGFR (2020 CKD-EPI) 46(L) >=60 ml/min/1.7 3m2 [facility] Comment: The estimated glomerular filtration rate (eGFR) was calculated using the CKD-EPI 2020 creatinine equation, which does not include race as a factor. This equation is validated in individuals 18 years of age and older, and eGFR is normalized to a body surface area of 1.73m^2. Blood 11/16/2023 7:22 AM DISTILLERY MILLER HELPER 11/16/2023 7:43 AM DISTILLERY MILLER HELPER Jesusita Aiken APRN, EMILY LABORATO RY Performing Organization Address City/[facility]/ZIP Co de Phone Number [facility] [place] [address] * POC GLUCOSE (11/16/2023 6:58 AM DISTILLERY MILLER HELPER) POC Glucose 84 70 - 100 mg/dL [facility] Blood 11/16/2023 6:58 AM DISTILLERY MILLER HELPER Devin Dougherty MD LABORATORY Performing Organization Address City/[facility]/ZIP Co de Phone Number [facility] [address] [place] [address], [place] * POC GLUCOSE (11/15/2023 9:15 PM DISTILLERY MILLER HELPER) POC Glucose 83 70 - 100 mg/dL [facility] CARE Blood 11/15/2023 9:15 PM DISTILLERY MILLER HELPER Devin Dougherty MD LABORATORY Performing Organization Address City/[facility]/ZIP Co de Phone Number [facility]ARE [address] [place] [address], [place] * POC GLUCOSE (11/15/2023 4:09 PM DISTILLERY MILLER HELPER) POC Glucose 91 70 - 100 mg/dL [facility]ARE Blood 11/15/2023 4:09 PM DISTILLERY MILLER HELPER Devin Dougherty MD LABORATORY Performing Organization Address City/[facility] Co de Phone Number [facility]ARE [address] [place] [address], [place] * POC GLUCOSE (11/15/2023 12:46 PM DISTILLERY MILLER HELPER) POC Glucose 88 70 - 100 mg/dL [facility]INT [facility]ARE Blood 11/15/2023 12:4 6 PM DISTILLERY MILLER HELPER Devin Dougherty MD LABORATORY Performing Organization Address City/[facility] Co de Phone Number [facility]ARE [address] [place] [address], [place] * PANEL BASIC METABOLIC (BMP) (11/15/2023 7:39 AM DISTILLERY MILLER HELPER) CO2 27 22 - 30 mEq/L [facility] Glucose 96 70 - 100 mg/dL [facility] BUN 20 8 - 23 mg/dL [facility] Creatinine 0.89 0.50 - 1.00 mg/dL [facility] Calcium 9.4 8.8 - 10.2 mg/dL [facility] Sodium 142 135 - 148 mEq/L [facility] Potassium 3.7 3.5 - 5.3 mEq/L [facility] Chloride 104 92 - 108 mEq/L [facility] eGFR (2020 CKD-EPI) 65 >=60 ml/min/1.7 3m2 [facility] Comment: The estimated glomerular filtration rate (eGFR) was calculated using the CKD-EPI 2020 creatinine equation, which does not include race as a factor. This equation is validated in individuals 18 years of age and older, and eGFR is normalized to a body surface area of 1.73m^2. AnGap 11 8 - 16 mEq/L [facility] Blood 11/15/2023 7:39 AM DISTILLERY MILLER HELPER 11/15/2023 8:31 AM DISTILLERY MILLER HELPER Jesusita Aiken APRN, POLICE INSPECTOR LABORATO RY [facility] [place] [address] * (ABNORMAL) POC GLUCOSE (11/15/2023 6:11 AM DISTILLERY MILLER HELPER) POC Glucose 105(H) 70 - 100 mg/dL [facility] POINT OF CARE Blood 11/15/2023 6:11 AM DISTILLERY MILLER HELPER Devin Dougherty MD LABORATORY Performing Organization Address City/[facility] Co de Phone Number [facility] [place] [phone], [place] * (ABNORMAL) POC GLUCOSE (11/14/2023 9:02 PM DISTILLERY MILLER HELPER) POC Glucose 168(H) 70 - 100 mg/dL [facility]INT [facility] CARE Blood 11/14/2023 9:02 PM DISTILLERY MILLER HELPER Devin Dougherty MD LABORATORY Performing Organization Address City/[facility] Co de Phone Number [facility] [address] [place] [address], [place] * (ABNORMAL) POC GLUCOSE (11/14/2023 4:21 PM DISTILLERY MILLER HELPER) POC Glucose 128(H) 70 - 100 mg/dL [facility]INT [facility] CARE Blood 11/14/2023 4:21 PM DISTILLERY MILLER HELPER Devin Dougherty MD LABORATORY Performing Organization Address City/[facility] Co de Phone Number [facility]ARE [address] [place] [address], [place] * POC GLUCOSE (11/14/2023 12:19 PM DISTILLERY MILLER HELPER) POC Glucose 84 70 - 100 mg/dL [facility]ARE Blood 11/14/2023 12:1 9 PM DISTILLERY MILLER HELPER Devin Dougherty MD LABORATORY Performing Organization Address City/[facility] Co de Phone Number [facility] POINT OF [facility] [address] [place] [address], [place] * (ABNORMAL) PANEL BASIC METABOLIC (BMP) (11/14/2023 8:59 AM DISTILLERY MILLER HELPER) CO2 28 22 - 30 mEq/L [facility] Glucose 158(H) 70 - 100 mg/dL [facility] BUN 19 8 - 23 mg/dL [facility] Creatinine 0.79 0.50 - 1.00 mg/dL [facility] Calcium 9.3 8.8 - 10.2 mg/dL [facility] eGFR (2020 CKD-EPI) 75 >=60 ml/min/1.7 3m2 [facility] Comment: The estimated glomerular filtration rate (eGFR) was calculated using the CKD-EPI 2020 creatinine equation, which does not include race as a factor. This equation is validated in individuals 18 years of age and older, and eGFR is normalized to a body surface area of 1.73m^2. Sodium 142 135 - 148 mEq/L [facility] Potassium 3.8 3.5 - 5.3 mEq/L [facility] Chloride 103 92 - 108 mEq/L [facility] AnGap 11 8 - 16 mEq/L [facility] Blood 11/14/2023 8:59 AM DISTILLERY MILLER HELPER 11/14/2023 9:21 AM DISTILLERY MILLER HELPER Jesusita Aiken APRN, POLICE INSPECTOR LABORATO RY [facility] [address] [place] [phone] * (ABNORMAL) POC GLUCOSE (11/14/2023 8:11 AM DISTILLERY MILLER HELPER) POC Glucose 139(H) 70 - 100 mg/dL [facility] Blood 11/14/2023 8:11 AM DISTILLERY MILLER HELPER Devin Dougherty MD LABORATORY [facility]ARE [address] [place] [address], [place] * (ABNORMAL) POC GLUCOSE (11/13/2023 9:15 PM DISTILLERY MILLER HELPER) POC Glucose 120(H) 70 - 100 mg/dL [facility] CARE Blood 11/13/2023 9:15 PM DISTILLERY MILLER HELPER Devin Dougherty MD LABORATORY Performing Organization Address City/[facility] Co de Phone Number [facility] POINT OF [address] [address], [place] * (ABNORMAL) POC GLUCOSE (11/13/2023 4:03 PM DISTILLERY MILLER HELPER) POC Glucose 169(H) 70 - 100 mg/dL [facility] Blood 11/13/2023 4:03 PM DISTILLERY MILLER HELPER Devin Dougherty MD LABORATORY [facility]ARE [address] [place] [address], [place] * (ABNORMAL) POC GLUCOSE (11/13/2023 11:21 AM DISTILLERY MILLER HELPER) POC Glucose 166(H) 70 - 100 mg/dL [facility] Blood 11/13/2023 11:2 1 AM DISTILLERY MILLER HELPER Devin Dougherty MD LABORATORY Performing Organization Address [facility] Co de Phone Number [facility] [address] [place] [address] * (ABNORMAL) PANEL BASIC METABOLIC (BMP) (11/13/2023 6:41 AM DISTILLERY MILLER HELPER) CO2 30 22 - 30 mEq/L [facility] Glucose 121(H) 70 - 100 mg/dL [facility] BUN 24(H) 8 - 23 mg/dL [facility] Creatinine 0.87 0.50 - 1.00 mg/dL [facility] Calcium 8.9 8.8 - 10.2 mg/dL [facility] Sodium 143 135 - 148 mEq/L [facility] Potassium 3.0(L) 3.5 - 5.3 mEq/L [facility] Chloride 103 92 - 108 mEq/L [facility] eGFR (2020 CKD-EPI) 67 >=60 ml/min/1.7 3m2 [facility] Comment: The estimated glomerular filtration rate (eGFR) was calculated using the CKD-EPI 2020 creatinine equation, which does not include race as a factor. This equation is validated in individuals 18 years of age and older, and eGFR is normalized to a body surface area of 1.73m^2. AnGap 10 8 - 16 mEq/L [facility] Blood 11/13/2023 6:41 AM DISTILLERY MILLER HELPER 11/13/2023 7:37 AM DISTILLERY MILLER HELPER Quinn Covarrubias MD LABORATORY Performing Organization Address [facility] Co de Phone Number [facility] [place] [address] * (ABNORMAL) POC GLUCOSE (11/13/2023 6:31 AM DISTILLERY MILLER HELPER) POC Glucose 128(H) 70 - 100 mg/dL [facility]INT [facility] CARE Blood 11/13/2023 6:31 AM DISTILLERY MILLER HELPER Devin Dougherty MD LABORATORY Performing Organization Address City/[facility]/ZIP Co de Phone Number [facility] [address] [place] [address], [place] * POC GLUCOSE (11/12/2023 9:21 PM DISTILLERY MILLER HELPER) [facility] POC Glucose 97 70 - 100 mg/dL [facility] Comment:R2 <=% Blood 11/12/2023 9:21 PM DISTILLERY MILLER HELPER Devin Dougherty MD LABORATORY Performing Organization Address [facility] Co de Phone Number [facility]ARE [address] [place] [address], [place] * POC GLUCOSE (11/12/2023 4:12 PM DISTILLERY MILLER HELPER) [facility] POC Glucose 89 70 - 100 mg/dL [facility] POINT OF [facility] Blood 11/12/2023 4:12 PM DISTILLERY MILLER HELPER Devin Dougherty MD LABORATORY Performing Organization Address [facility] Co de Phone Number [facility]ARE [address] [place] [address], [place] * (ABNORMAL) PANEL BASIC METABOLIC (BMP) (11/12/2023 1:01 PM DISTILLERY MILLER HELPER) [facility] Sodium 144 135 - 148 mEq/L [facility] Potassium 3.4(L) 3.5 - 5.3 mEq/L [facility] Chloride 104 92 - 108 mEq/L [facility] CO2 31(H) 22 - 30 mEq/L [facility] AnGap 9 8 - 16 mEq/L [facility] Glucose 118(H) 70 - 100 mg/dL [facility] BUN 29(H) 8 - 23 mg/dL [facility] Creatinine 0.92 0.50 - 1.00 mg/dL [facility] Calcium 9.3 8.8 - 10.2 mg/dL [facility] eGFR (2020 CKD-EPI) 63 >=60 ml/min/1.7 3m2 [facility] Comment: The estimated glomerular filtration rate (eGFR) was calculated using the CKD-EPI 2020 creatinine equation, which does not include race as a factor. This equation is validated in individuals 18 years of age and older, and eGFR is normalized to a body surface area of 1.73m^2. Blood 11/12/2023 1:01 PM DISTILLERY MILLER HELPER 11/12/2023 1:44 PM DISTILLERY MILLER HELPER Quinn Covarrubias MD LABORATORY [facility] [address] [place] [address] * (ABNORMAL) POC GLUCOSE (11/12/2023 12:14 PM DISTILLERY MILLER HELPER) POC Glucose 117(H) 70 - 100 mg/dL [facility] Blood 11/12/2023 12:1 4 PM DISTILLERY MILLER HELPER Devni Dougherty MD LABORATORY Performing Organization Address City/[facility]/ZIP Co de Phone Number [facility] POINT OF [facility] [address] [place] [address], [place] * POC GLUCOSE (11/12/2023 6:09 AM DISTILLERY MILLER HELPER) POC Glucose 80 70 - 100 mg/dL [facility]INT [facility] CARE Blood 11/12/2023 6:09 AM DISTILLERY MILLER HELPER Devin Dougherty MD LABORATORY Performing Organization Address City/[facility]/ZIP Co de Phone Number [facility]INT [facility] CARE [address] [place] [phone], [place] * POC GLUCOSE (11/11/2023 8:48 PM DISTILLERY MILLER HELPER) POC Glucose 99 70 - 100 mg/dL [facility]INT OF CARE Blood 11/11/2023 8:48 PM DISTILLERY MILLER HELPER Devin Dougherty MD LABORATORY [facility]ARE [address] [place] [address], [place] * POC GLUCOSE (11/11/2023 4:11 PM DISTILLERY MILLER HELPER) POC Glucose 93 70 - 100 mg/dL [facility] Blood 11/11/2023 4:11 PM DISTILLERY MILLER HELPER Devin Dougherty MD LABORATORY Performing Organization Address City/[facility]/ZIP Co de Phone Number [facility] POINT OF CARE [address] [place] [address], [place] * POC GLUCOSE (11/11/2023 11:47 AM DISTILLERY MILLER HELPER) Pathologist [facility] POC Glucose 89 70 - 100 mg/dL [facility]INT [facility] CARE Blood 11/11/2023 11:4 7 AM DISTILLERY MILLER HELPER Devin Dougherty MD LABORATORY Performing Organization Address City/[facility] Co de Phone Number [facility]ARE [address] [place] [phone], [place] * PHOSPHORUS (11/11/2023 6:09 AM DISTILLERY MILLER HELPER) Pathologist [facility] Phosphorus 3.5 2.5 - 4.5 mg/dL [facility] Blood 11/11/2023 6:09 AM DISTILLERY MILLER HELPER 11/11/2023 6:36 AM DISTILLERY MILLER HELPER Quinn Covarrubias MD LABORATORY Performing Organization Address City/[facility] Co de Phone Number [facility] [address] [address] * (ABNORMAL) PANEL BASIC METABOLIC (BMP) (11/11/2023 6:09 AM DISTILLERY MILLER HELPER) Pathologist [facility] Sodium 143 135 - 148 mEq/L [facility] Potassium 3.3(L) 3.5 - 5.3 mEq/L [facility] Chloride 106 92 - 108 mEq/L [facility] AnGap 8 8 - 16 mEq/L [facility] CO2 29 22 - 30 mEq/L [facility] Glucose 79 70 - 100 mg/dL [facility] BUN 30(H) 8 - 23 mg/dL [facility] Creatinine 0.83 0.50 - 1.00 mg/dL [facility] Calcium 9.0 8.8 - 10.2 mg/dL [facility] eGFR (2020 CKD-EPI) 71 >=60 ml/min/1.7 3m2 [facility] Comment: The estimated glomerular filtration rate (eGFR) was calculated using the CKD-EPI 2020 creatinine equation, which does not include race as a factor. This equation is validated in individuals 18 years of age and older, and eGFR is normalized to a body surface area of 1.73m^2. Blood 11/11/2023 6:09 AM DISTILLERY MILLER HELPER 11/11/2023 6:36 AM DISTILLERY MILLER HELPER Quinn Covarrubias MD LABORATORY Performing Organization Address City/[facility] Co de Phone Number [facility] [address] [address] * MAGNESIUM (11/11/2023 6:09 AM DISTILLERY MILLER HELPER) Pathologist [facility] Magnesium 2.2 1.6 - 2.4 mg/dL [facility] Blood 11/11/2023 6:09 AM DISTILLERY MILLER HELPER 11/11/2023 6:36 AM DISTILLERY MILLER HELPER Quinn Covarrubias MD LABORATORY Performing Organization Address [facility] Co de Phone Number [facility] [address] [address] * (ABNORMAL) CBC WITH PLATELET (11/11/2023 6:09 AM DISTILLERY MILLER HELPER) WBC 5.60 4.00 - 10.00 k/cmm [facility] RBC 3.80(L) 3.90 - 5.20 m/cmm [facility] Hgb 9.5(L) 11.5 - 15.7 g/dL [facility] Hematocrit 31.4(L) 34.0 - 45.0 % [facility] MCV 82.6 80.0 - 100.0 fL [facility] MCH 25.0 25.0 - 32.0 pg [facility] MCHC 30.3(L) 31.0 - 36.0 g/dL [facility] RDW 16.1(H) 11.5 - 14.5 % [facility] Plt 275 150 - 400 k/cmm [facility] MPV 11.8 6.5 - 12.5 fL [facility] Blood 11/11/2023 6:09 AM DISTILLERY MILLER HELPER 11/11/2023 6:36 AM DISTILLERY MILLER HELPER Quinn Covarrubias MD LABORATORY [facility] [address] [place] [address] * POC GLUCOSE (11/10/2023 8:58 PM DISTILLERY MILLER HELPER) POC Glucose 82 70 - 100 mg/dL [facility] Blood 11/10/2023 8:58 PM DISTILLERY MILLER HELPER Devin Dougherty MD LABORATORY Performing Organization Address City/[facility]/ZIP Co de Phone Number [facility] [address] [place] [address], [place] * (ABNORMAL) POC GLUCOSE (11/10/2023 4:16 PM DISTILLERY MILLER HELPER) POC Glucose 110(H) 70 - 100 mg/dL [facility] Blood 11/10/2023 4:16 PM DISTILLERY MILLER HELPER Devin Dougherty MD LABORATORY Performing Organization Address [facility] Co de Phone Number [facility] POINT OF [facility] [address] [place] [address], [place] * POC GLUCOSE (11/10/2023 11:15 AM DISTILLERY MILLER HELPER) POC Glucose 93 70 - 100 mg/dL [facility] Blood 11/10/2023 11:1 5 AM DISTILLERY MILLER HELPER Devin Dougherty MD LABORATORY [facility] [address] [place] [address], [place] * PHOSPHORUS (11/10/2023 6:17 AM DISTILLERY MILLER HELPER) Phosphorus 3.8 2.5 - 4.5 mg/dL [facility] Blood 11/10/2023 6:17 AM DISTILLERY MILLER HELPER 11/10/2023 6:32 AM DISTILLERY MILLER HELPER Quinn Covarrubias MD LABORATORY Performing Organization Address City/[facility] Co de Phone Number [facility] [address] [address] * (ABNORMAL) PANEL BASIC METABOLIC (BMP) (11/10/2023 6:17 AM DISTILLERY MILLER HELPER) Sodium 145 135 - 148 mEq/L [facility] Potassium 3.6 3.5 - 5.3 mEq/L [facility] Chloride 107 92 - 108 mEq/L [facility] CO2 27 22 - 30 mEq/L [facility] Glucose 109(H) 70 - 100 mg/dL [facility] BUN 40(H) 8 - 23 mg/dL [facility] Creatinine 1.15(H) 0.50 - 1.00 mg/dL [facility] Calcium 9.1 8.8 - 10.2 mg/dL [facility] AnGap 11 8 - 16 mEq/L [facility] eGFR (2020 CKD-EPI) 48(L) >=60 ml/min/1.7 3m2 [facility] Comment: The estimated glomerular filtration rate (eGFR) was calculated using the CKD-EPI 2020 creatinine equation, which does not include race as a factor. This equation is validated in individuals 18 years of age and older, and eGFR is normalized to a body surface area of 1.73m^2. Blood 11/10/2023 6:17 AM DISTILLERY MILLER HELPER 11/10/2023 6:32 AM DISTILLERY MILLER HELPER Quinn Covarrubias MD LABORATORY Performing Organization Address City/[facility]/ZIP Co de Phone Number [facility] [address] [address] * MAGNESIUM (11/10/2023 6:17 AM DISTILLERY MILLER HELPER) Magnesium 2.3 1.6 - 2.4 mg/dL [facility] Blood 11/10/2023 6:17 AM DISTILLERY MILLER HELPER 11/10/2023 6:32 AM DISTILLERY MILLER HELPER Quinn Covarrubias MD LABORATORY Performing Organization Address City/[facility]/ZIP Co de Phone Number [facility] [address] [address] * (ABNORMAL) CBC WITH PLATELET (11/10/2023 6:17 AM DISTILLERY MILLER HELPER) Pathologist [facility] WBC 6.82 4.00 - 10.00 k/cmm [facility] RBC 3.64(L) 3.90 - 5.20 m/cmm [facility] Hgb 9.1(L) 11.5 - 15.7 g/dL [facility] Hematocrit 30.3(L) 34.0 - 45.0 % [facility] MCV 83.2 80.0 - 100.0 fL [facility] MCH 25.0 25.0 - 32.0 pg [facility] MCHC 30.0(L) 31.0 - 36.0 g/dL [facility] RDW 16.1(H) 11.5 - 14.5 % [facility] Plt 259 150 - 400 k/cmm [facility] MPV 11.8 6.5 - 12.5 fL [facility] Blood 11/10/2023 6:17 AM DISTILLERY MILLER HELPER 11/10/2023 6:32 AM DISTILLERY MILLER HELPER Quinn Covarrubias MD LABORATORY Performing Organization Address [facility]/ZIP Co de Phone Number [facility] [address] [address] * (ABNORMAL) POC GLUCOSE (11/09/2023 9:41 PM DISTILLERY MILLER HELPER) Pathologist [facility] POC Glucose 136(H) 70 - 100 mg/dL [facility] POINT [facility] CARE Blood 11/09/2023 9:41 PM DISTILLERY MILLER HELPER Devin Dougherty MD LABORATORY [facility]ARE [address] [place] [address], [place] * (ABNORMAL) POC GLUCOSE (11/09/2023 3:58 PM DISTILLERY MILLER HELPER) Pathologist [facility] POC Glucose 157(H) 70 - 100 mg/dL [facility]INT [facility] CARE Blood 11/09/2023 3:58 PM DISTILLERY MILLER HELPER Devin Dougherty MD LABORATORY Performing Organization Address [facility] Co de Phone Number [facility] POINT OF [facility] [address] [place] [address], [place] * ANTI XA ASSAY LMW HEPARIN (11/09/2023 2:18 PM DISTILLERY MILLER HELPER) Anti XA LMW 0.32 IU/mL [facility] Comment: Anti Xa Assay LMW Heparin Therapeutic Ranges: 0.4-1.1 IU/mL for twice daily 1.0-2.0 IU/mL for once daily Blood 11/09/2023 2:18 PM DISTILLERY MILLER HELPER 11/09/2023 2:29 PM DISTILLERY MILLER HELPER Quinn Covarrubias MD LABORATORY Performing Organization Address [facility] Co de Phone Number [facility] [address] [address] * (ABNORMAL) POC GLUCOSE (11/09/2023 11:28 AM DISTILLERY MILLER HELPER) POC Glucose 174(H) 70 - 100 mg/dL [facility]INT [facility] CARE Blood 11/09/2023 11:2 8 AM DISTILLERY MILLER HELPER Devin Dougherty MD LABORATORY Performing Organization Address [facility] Co de Phone Number [facility]INT OF CARE [address] [place] [phone], [place] * XR FOOT RIGHT 3 V AP/OBL/LAT* (11/09/2023 10:36 AM DISTILLERY MILLER HELPER) Anatomical Region Laterality Modality Foot Computed Radiogr aphy 11/09/2023 10:4 7 AM DISTILLERY MILLER HELPER Impressions 11/09/2023 10:50 AM DISTILLERY MILLER HELPER Impression: No acute osseous abnormality. Generalized osteopenia. Reading Radiologist: Angela Camp Narrative 11/09/2023 10:50 AM DISTILLERY MILLER HELPER Technique: XR FOOT RIGHT 3 V AP/OBL/LAT* [...] osteopenia. Reading Radiologist: Angela Camp Jesusita Aiken MVA STILL OPERATOR, POLICE INSPECTOR RAD XRAY * POC GLUCOSE (11/09/2023 5:46 AM DISTILLERY MILLER HELPER) [facility] Signature POC Glucose 97 70 - 100 mg/dL [facility] Blood 11/09/2023 5:46 AM DISTILLERY MILLER HELPER Devin Dougherty MD LABORATORY Performing Organization Address City/[facility]/ZIP Co de Phone Number [facility] [address] [place] [address] * (ABNORMAL) VALPROATE (DEPAKOTE) LEVEL (11/09/2023 5:41 AM DISTILLERY MILLER HELPER) Valproate 31.8(L) 50.0 - 100.0 mcg/mL [facility] Blood 11/09/2023 5:41 AM DISTILLERY MILLER HELPER 11/09/2023 8:19 AM DISTILLERY MILLER HELPER Quinn Covarrubias MD LABORATORY [facility] [place] [address] * PHOSPHORUS (11/09/2023 5:41 AM DISTILLERY MILLER HELPER) Phosphorus 3.9 2.5 - 4.5 mg/dL [facility] Blood 11/09/2023 5:41 AM DISTILLERY MILLER HELPER 11/09/2023 6:38 AM DISTILLERY MILLER HELPER Quinn Covarrubias MD LABORATORY Performing Organization Address [facility] Co de Phone Number [facility] [address] [address] * (ABNORMAL) PANEL BASIC METABOLIC (BMP) (11/09/2023 5:41 AM DISTILLERY MILLER HELPER) Sodium 142 135 - 148 mEq/L [facility] Potassium 3.1(L) 3.5 - 5.3 mEq/L [facility] Chloride 105 92 - 108 mEq/L [facility] CO2 30 22 - 30 mEq/L [facility] Glucose 91 70 - 100 mg/dL [facility] BUN 23 8 - 23 mg/dL [facility] Creatinine 1.09(H) 0.50 - 1.00 mg/dL [facility] Calcium 8.8 8.8 - 10.2 mg/dL [facility] AnGap 7(L) 8 - 16 mEq/L [facility] eGFR (2020 CKD-EPI) 51(L) >=60 ml/min/1.7 3m2 [facility] Comment: The estimated glomerular filtration rate (eGFR) was calculated using the CKD-EPI 2020 creatinine equation, which does not include race as a factor. This equation is validated in individuals 18 years of age and older, and eGFR is normalized to a body surface area of 1.73m^2. Blood 11/09/2023 5:41 AM DISTILLERY MILLER HELPER 11/09/2023 6:38 AM DISTILLERY MILLER HELPER Quinn Covarrubias MD LABORATORY Performing Organization Address [facility] Co de Phone Number [facility] [address] [address] * MAGNESIUM (11/09/2023 5:41 AM DISTILLERY MILLER HELPER) Magnesium 2.1 1.6 - 2.4 mg/dL [facility] Blood 11/09/2023 5:41 AM DISTILLERY MILLER HELPER 11/09/2023 6:38 AM DISTILLERY MILLER HELPER Quinn Covarrubias MD LABORATORY Performing Organization Address [facility] Co de Phone Number [facility] [address] [address] * (ABNORMAL) CBC WITH PLATELET (11/09/2023 5:41 AM DISTILLERY MILLER HELPER) Pathologist [facility] WBC 6.97 4.00 - 10.00 k/cmm [facility] RBC 3.42(L) 3.90 - 5.20 m/cmm [facility] Hgb 8.8(L) 11.5 - 15.7 g/dL [facility] Hematocrit 28.4(L) 34.0 - 45.0 % [facility] MCV 83.0 80.0 - 100.0 fL [facility] MCH 25.7 25.0 - 32.0 pg [facility] MCHC 31.0 31.0 - 36.0 g/dL [facility] RDW 16.0(H) 11.5 - 14.5 % [facility] Plt 227 150 - 400 k/cmm [facility] MPV 12.0 6.5 - 12.5 fL [facility] Blood 11/09/2023 5:41 AM DISTILLERY MILLER HELPER 11/09/2023 6:38 AM DISTILLERY MILLER HELPER Quinn Covarrubias MD LABORATORY [facility] [place] [address] * (ABNORMAL) POC GLUCOSE (11/08/2023 8:40 PM DISTILLERY MILLER HELPER) [facility] POC Glucose 125(H) 70 - 100 mg/dL [facility] Blood 11/08/2023 8:40 PM DISTILLERY MILLER HELPER Devin Dougherty MD LABORATORY [facility] [address] [place] [address], * PHOSPHORUS (11/08/2023 4:20 PM DISTILLERY MILLER HELPER) Pathologist [facility] Phosphorus 3.5 2.5 - 4.5 mg/dL [facility] Blood 11/08/2023 4:20 PM DISTILLERY MILLER HELPER 11/08/2023 4:38 PM DISTILLERY MILLER HELPER Jesusita K EMILY Aiken APRNNATE RY Performing Organization Address [facility] Co de Phone Number [facility] [address] [place] [address] * MAGNESIUM (11/08/2023 4:20 PM DISTILLERY MILLER HELPER) Magnesium 2.0 1.6 - 2.4 mg/dL [facility] Blood 11/08/2023 4:20 PM DISTILLERY MILLER HELPER 11/08/2023 4:38 PM DISTILLERY MILLER HELPER Jesusita Wild Nelli CHO EMILY MORENOATO RY Performing Organization Address [facility] de Phone Number [facility] [address] [address] * (ABNORMAL) PANEL BASIC METABOLIC (BMP) (11/08/2023 4:20 PM DISTILLERY MILLER HELPER) Sodium 142 135 - 148 mEq/L [facility] Potassium 3.4(L) 3.5 - 5.3 mEq/L [facility] Chloride 105 92 - 108 mEq/L [facility] CO2 28 22 - 30 mEq/L [facility] AnGap 9 8 - 16 mEq/L [facility] Glucose 149(H) 70 - 100 mg/dL [facility] BUN 17 8 - 23 mg/dL [facility] Creatinine 0.82 0.50 - 1.00 mg/dL [facility] Calcium 8.9 8.8 - 10.2 mg/dL [facility] eGFR (2020 CKD-EPI) 72 >=60 ml/min/1.7 3m2 [facility] Comment: The estimated glomerular filtration rate (eGFR) was calculated using the CKD-EPI 2020 creatinine equation, which does not include race as a factor. This equation is validated in individuals 18 years of age and older, and eGFR is normalized to a body surface area of 1.73m^2. Blood 11/08/2023 4:20 PM DISTILLERY MILLER HELPER 11/08/2023 4:38 PM DISTILLERY MILLER HELPER Jesusita K Nelli CHO CNP JOSHATO RY Performing Organization Address City/[facility]/ZIP Co de Phone Number [facility] [address] [address] * (ABNORMAL) CBC WITH PLATELET (11/08/2023 4:20 PM DISTILLERY MILLER HELPER) [facility] WBC 8.46 4.00 - 10.00 k/cmm [facility] RBC 3.65(L) 3.90 - 5.20 m/cmm [facility] Hgb 9.1(L) 11.5 - 15.7 g/dL [facility] Hematocrit 30.2(L) 34.0 - 45.0 % [facility] MCV 82.7 80.0 - 100.0 fL [facility] MCH 24.9(L) 25.0 - 32.0 pg [facility] MCHC 30.1(L) 31.0 - 36.0 g/dL [facility] RDW 16.0(H) 11.5 - 14.5 % [facility] Plt 227 150 - 400 k/cmm [facility] MPV 11.7 6.5 - 12.5 fL [facility] Blood 11/08/2023 4:20 PM DISTILLERY MILLER HELPER 11/08/2023 4:38 PM DISTILLERY MILLER HELPER EMILY Martinez APRNB[facility] RY Performing Organization Address City/[facility]/ZIP Co de Phone Number [address] [address] * (ABNORMAL) POC GLUCOSE (11/08/2023 3:56 PM DISTILLERY MILLER HELPER) [facility] POC Glucose 150(H) 70 - 100 mg/dL [facility]INT [facility] CARE Blood 11/08/2023 3:56 PM DISTILLERY MILLER HELPER Devin Dougherty MD LABORATORY Performing Organization Address City/[facility]/ZIP Co de Phone Number [facility]INT [facility]ARE [address] [place] [address] * (ABNORMAL) POC GLUCOSE (11/08/2023 11:03 AM DISTILLERY MILLER HELPER) [facility] POC Glucose 162(H) 70 - 100 mg/dL [facility]INT [facility]ARE Blood 11/08/2023 11:0 3 AM DISTILLERY MILLER HELPER Devin Dougherty MD LABORATORY [facility] [address] [place] [address], [place] * XR CHEST 1 VIEW AP OR PA* (11/08/2023 6:30 AM DISTILLERY MILLER HELPER) Anatomical Region Laterality Modality Chest Computed Radiogr aphy 11/08/2023 6:56 AM DISTILLERY MILLER HELPER Impressions 11/08/2023 7:24 AM DISTILLERY MILLER HELPER Impression: Stable chest. I have personally reviewed the image(s) and initial interpretation, and I agree with the findings as documented by the resident/fellow. Reading Radiologist: Ronal Hidalgo Reading Resident: Laith Berkowitz Narrative 11/08/2023 7:24 AM DISTILLERY MILLER HELPER Technique: XR CHEST 1 VIEW AP OR [...] * (ABNORMAL) POC GLUCOSE (11/08/2023 6:22 AM DISTILLERY MILLER HELPER) POC Glucose 126(H) 70 - 100 mg/dL [facility] Blood 11/08/2023 6:22 AM DISTILLERY MILLER HELPER Devin Dougherty MD LABORATORY [facility]INT [facility] CARE [address] [place] [address], [place] * (ABNORMAL) POC GLUCOSE (11/07/2023 9:34 PM DISTILLERY MILLER HELPER) POC Glucose 109(H) 70 - 100 mg/dL [facility] Blood 11/07/2023 9:34 PM DISTILLERY MILLER HELPER Devin Dougherty MD LABORATORY Performing Organization Address City/[facility]/ZIP Co de Phone Number [facility]ARE [address] [place] [address], [place] * (ABNORMAL) POC GLUCOSE (11/07/2023 4:06 PM DISTILLERY MILLER HELPER) POC Glucose 160(H) 70 - 100 mg/dL [facility] POINT OF [facility] Blood 11/07/2023 4:06 PM DISTILLERY MILLER HELPER Devin Dougherty MD LABORATORY Performing Organization Address [facility] Co de Phone Number [facility] [address] [place] [address], [place] * (ABNORMAL) POC GLUCOSE (11/07/2023 11:45 AM DISTILLERY MILLER HELPER) POC Glucose 107(H) 70 - 100 mg/dL [facility] PO[facility] Blood 11/07/2023 11:4 5 AM DISTILLERY MILLER HELPER Devin Dougherty MD LABORATORY Performing Organization Address City/[facility] Co de Phone Number [facility]INT [facility]ARE [address] [place] [address], [place] * XR CHEST 2 VIEWS PA + LAT* (11/07/2023 10:07 AM DISTILLERY MILLER HELPER) Anatomical Region Laterality Modality Chest Computed Radiogr aphy 11/07/2023 10:0 9 AM DISTILLERY MILLER HELPER Impressions 11/07/2023 10:10 AM DISTILLERY MILLER HELPER Impression: New left basilar opacities with small effusion concerning for developing infection. Reading Radiologist: Phil Contreras Narrative 11/07/2023 10:10 AM DISTILLERY MILLER HELPER Technique: XR CHEST 2 VIEWS PA + [...] RAD XRAY * PROCALCITONIN (11/07/2023 8:34 AM DISTILLERY MILLER HELPER) Procalcitonin 0.12 ng/mL [facility] Comment: Results <0.50 ng/mL represent a low risk of severe sepsis and/or septic shock. Results >2.0 ng/mL represent a high risk of severe sepsis and/or septic shock. Blood 11/07/2023 8:34 AM DISTILLERY MILLER HELPER 11/07/2023 8:40 AM DISTILLERY MILLER HELPER Quinn Covarrubias MD LABORATORY [facility] [address] [address] * (ABNORMAL) CBC WITH PLATELET (11/07/2023 8:34 AM DISTILLERY MILLER HELPER) WBC 7.45 4.00 - 10.00 k/cmm [facility] RBC 3.49(L) 3.90 - 5.20 m/cmm [facility] Hgb 8.8(L) 11.5 - 15.7 g/dL [facility] Hematocrit 29.0(L) 34.0 - 45.0 % [facility] MCV 83.1 80.0 - 100.0 fL [facility] MCH 25.2 25.0 - 32.0 pg [facility] MCHC 30.3(L) 31.0 - 36.0 g/dL [facility] RDW 15.9(H) 11.5 - 14.5 % [facility] Plt 249 150 - 400 k/cmm [facility] MPV 11.0 6.5 - 12.5 fL [facility] Blood 11/07/2023 8:34 AM DISTILLERY MILLER HELPER 11/07/2023 8:40 AM DISTILLERY MILLER HELPER Quinn Covarrubias MD LABORATORY Performing Organization Address [facility] Co de Phone Number [facility] [address] [address] * (ABNORMAL) PANEL BASIC METABOLIC (BMP) (11/07/2023 8:34 AM DISTILLERY MILLER HELPER) Sodium 145 135 - 148 mEq/L [facility] Potassium 3.5 3.5 - 5.3 mEq/L [facility] Chloride 111(H) 92 - 108 mEq/L [facility] CO2 26 22 - 30 mEq/L [facility] AnGap 8 8 - 16 mEq/L [facility] Glucose 108(H) 70 - 100 mg/dL [facility] BUN 15 8 - 23 mg/dL [facility] Creatinine 0.90 0.50 - 1.00 mg/dL [facility] Calcium 8.8 8.8 - 10.2 mg/dL [facility] eGFR (2020 CKD-EPI) 64 >=60 ml/min/1.7 3m2 [facility] Comment: The estimated glomerular filtration rate (eGFR) was calculated using the CKD-EPI 2020 creatinine equation, which does not include race as a factor. This equation is validated in individuals 18 years of age and older, and eGFR is normalized to a body surface area of 1.73m^2. Blood 11/07/2023 8:34 AM DISTILLERY MILLER HELPER 11/07/2023 8:40 AM DISTILLERY MILLER HELPER Quinn Covarrubias MD LABORATORY Performing Organization Address City/[facility]/ZIP Co de Phone Number [facility] [address] [address] * MAGNESIUM (11/07/2023 8:34 AM DISTILLERY MILLER HELPER) Magnesium 2.3 1.6 - 2.4 mg/dL [facility] Blood 11/07/2023 8:34 AM DISTILLERY MILLER HELPER 11/07/2023 8:40 AM DISTILLERY MILLER HELPER Quinn Covarrubias MD LABORATORY Performing Organization Address City/[facility] [place] [address] * (ABNORMAL) PHOSPHORUS (11/07/2023 8:34 AM DISTILLERY MILLER HELPER) Phosphorus 5.0(H) 2.5 - 4.5 mg/dL [facility] Blood 11/07/2023 8:34 AM DISTILLERY MILLER HELPER 11/07/2023 8:40 AM DISTILLERY MILLER HELPER Quinn Covarrubias MD LABORATORY Performing Organization Address [facility] [place] [address] * (ABNORMAL) POC GLUCOSE (11/07/2023 5:45 AM DISTILLERY MILLER HELPER) POC Glucose 115(H) 70 - 100 mg/dL [facility] Blood 11/07/2023 5:45 AM DIST[employer] M[employer]ER HELPER Devin Dougherty MD LABORATORY Performing Organization Address [facility] Co de Phone Number [facility] [address] [place] [address] * (ABNORMAL) POC GLUCOSE (11/06/2023 9:21 PM DISTILLERY MILLER HELPER) POC Glucose 149(H) 70 - 100 mg/dL [facility] Blood 11/06/2023 9:21 PM DIST[employer] M[employer]ER HELPER Devin Dougherty MD LABORATORY Performing Organization Address City/[facility] Co de Phone Number [facility] [place] [address], [place] * (ABNORMAL) BLOOD GASES (11/06/2023 1:06 PM DISTILLERY MILLER HELPER) PH Jalen 7.36 7.32 - 7.42 [facility] PCO2 Jalen 48 41 - 51 mmHG [facility] PO2 Jalen 86(H) 25 - 40 mmHG [facility] Bicarb Jalen 26 24 - 28 mEq/L [facility] O2 Sat Jalen 96 % [facility] Base Exc Jalen 1.0 -10.0 - 2.0 mEq/L [facility] Blood Venous 11/06/2023 1:06 PM DISTILLERY MILLER HELPER 11/06/2023 1:10 PM DISTILLERY MILLER HELPER Narrative [facility] - 11/06/2023 1:16 PM DISTILLERY MILLER HELPER Draw on Room Air: No O2 LPM (liter/min) Level->4 via mask FiO2 Level: 100 Quinn Covarrubias MD LABORATORY Performing Organization Address City/[facility]/ZIP Co de Phone Number [address] [address] * MAGNESIUM (11/06/2023 1:06 PM DISTILLERY MILLER HELPER) Magnesium 2.4 1.6 - 2.4 mg/dL [facility] Blood 11/06/2023 1:06 PM DISTILLERY MILLER HELPER 11/06/2023 1:22 PM DISTILLERY MILLER HELPER Quinn Covarrubias MD LABORATORY Performing Organization Address City/[facility]/ZIP Co de Phone Number [address] [address] * PHOSPHORUS (11/06/2023 1:06 PM DISTILLERY MILLER HELPER) Phosphorus 4.2 2.5 - 4.5 mg/dL [facility] Blood 11/06/2023 1:06 PM DISTILLERY MILLER HELPER 11/06/2023 1:22 PM DISTILLERY MILLER HELPER Quinn Covarrubias MD LABORATORY Performing Organization Address City/[facility]/ZIP Co de Phone Number [address] [address] * (ABNORMAL) PANEL BASIC METABOLIC (BMP) (11/06/2023 1:06 PM DISTILLERY MILLER HELPER) Sodium 141 135 - 148 mEq/L [facility] Potassium 3.8 3.5 - 5.3 mEq/L [facility] Chloride 108 92 - 108 mEq/L [facility] CO2 27 22 - 30 mEq/L [facility] AnGap 6(L) 8 - 16 mEq/L [facility] Glucose 184(H) 70 - 100 mg/dL [facility] BUN 15 8 - 23 mg/dL [facility] Creatinine 0.91 0.50 - 1.00 mg/dL [facility] Calcium 8.7(L) 8.8 - 10.2 mg/dL [facility] eGFR (2020 CKD-EPI) 63 >=60 ml/min/1.7 3m2 [facility] Comment: The estimated glomerular filtration rate (eGFR) was calculated using the CKD-EPI 2020 creatinine equation, which does not include race as a factor. This equation is validated in individuals 18 years of age and older, and eGFR is normalized to a body surface area of 1.73m^2. Blood 11/06/2023 1:06 PM DISTILLERY MILLER HELPER 11/06/2023 1:22 PM DISTILLERY MILLER HELPER Quinn Covarrubias MD LABORATORY [facility] [address] [address] * (ABNORMAL) CBC WITH PLATELET (11/06/2023 1:06 PM DISTILLERY MILLER HELPER) WBC 10.82(H) 4.00 - 10.00 k/cmm [facility] RBC 3.58(L) 3.90 - 5.20 m/cmm [facility] Hgb 9.1(L) 11.5 - 15.7 g/dL [facility] Hematocrit 29.6(L) 34.0 - 45.0 % [facility] MCV 82.7 80.0 - 100.0 fL [facility] MCH 25.4 25.0 - 32.0 pg [facility] MCHC 30.7(L) 31.0 - 36.0 g/dL [facility] RDW 15.8(H) 11.5 - 14.5 % [facility] Plt 253 150 - 400 k/cmm [facility] MPV 11.3 6.5 - 12.5 fL [facility] Blood 11/06/2023 1:06 PM DISTILLERY MILLER HELPER 11/06/2023 1:21 PM DISTILLERY MILLER HELPER Quinn Covarrubias MD LABORATORY Performing Organization Address [facility] Co de Phone Number [facility] [place] [address] * (ABNORMAL) POC GLUCOSE (11/06/2023 1:04 PM DISTILLERY MILLER HELPER) POC Glucose 173(H) 70 - 100 mg/dL [facility] Blood 11/06/2023 1:04 PM DISTILLERY MILLER HELPER Devin Dougherty MD LABORATORY Performing Organization Address [facility] Co de Phone Number [facility] [address], * (ABNORMAL) POC GLUCOSE (11/06/2023 10:49 AM DISTILLERY MILLER HELPER) POC Glucose 257(H) 70 - 100 mg/dL [facility] Blood 11/06/2023 10:4 9 AM DISTILLERY MILLER HELPER Devin Dougherty MD LABORATORY Performing Organization Address [facility] de Phone Number [facility] [address] * (ABNORMAL) GLYCOSYLATED HGB - A1C (11/06/2023 6:31 AM DISTILLERY MILLER HELPER) Hemoglobin A1C 8.1(H) 4.0 - 5.6 % [facility] Comment: Increased risk for diabetes (prediabetes): 5.7-6.4% Diabetes: greater than or equal to 6.5% * * In the absence of unequivocal hyperglycemia, diagnosis requires two abnormal test results (i.e. HbA1c and glucose) or two abnormal results from specimens collected at two different timepoints. Estimated Average Glucose 186(H) 68 - 114 [facility] Comment: The ADA recommends reporting an estimated Average Glucose (eAG) with all hemoglobin A1c results using the equation derived from a study of 501 normal diabetic adults. Minority populations were underrepresented and children were not included. The EAG is not equivalent to a fasting glucose. Blood 11/06/2023 6:31 AM DISTILLERY MILLER HELPER 11/06/2023 11:28 AM DISTILLERY MILLER HELPER Quinn Covarrubias MD LABORATORY Performing Organization Address [facility] Co de Phone Number [facility] [address] [address] * ICU PHOSPHORUS (11/06/2023 6:31 AM DISTILLERY MILLER HELPER) Phosphorus 4.1 2.5 - 4.5 mg/dL [facility] Blood 11/06/2023 6:31 AM DISTILLERY MILLER HELPER 11/06/2023 7:37 AM DISTILLERY MILLER HELPER Devin Dougherty MD LABORATORY Performing Organization Address [facility] de Phone Number [facility] [address] [address] * (ABNORMAL) ICU MAGNESIUM (11/06/2023 6:31 AM DISTILLERY MILLER HELPER) Magnesium 2.5(H) 1.6 - 2.4 mg/dL [facility] Blood 11/06/2023 6:31 AM DISTILLERY MILLER HELPER 11/06/2023 7:37 AM DISTILLERY MILLER HELPER Devin Dougherty MD LABORATORY Performing Organization Address [facility] de Phone Number [facility] [address] [address] * (ABNORMAL) ICU CBC WITH PLATELET (11/06/2023 6:31 AM DISTILLERY MILLER HELPER) WBC 9.06 4.00 - 10.00 k/cmm [facility] RBC 3.77(L) 3.90 - 5.20 m/cmm [facility] Hgb 9.6(L) 11.5 - 15.7 g/dL [facility] Hematocrit 30.8(L) 34.0 - 45.0 % [facility] MCV 81.7 80.0 - 100.0 fL [facility] MCH 25.5 25.0 - 32.0 pg [facility] MCHC 31.2 31.0 - 36.0 g/dL [facility] RDW 15.9(H) 11.5 - 14.5 % [facility] Plt 284 150 - 400 k/cmm [facility] MPV 12.1 6.5 - 12.5 fL [facility] Blood 11/06/2023 6:31 AM DISTILLERY MILLER HELPER 11/06/2023 7:37 AM DISTILLERY MILLER HELPER Devin Dougherty MD LABORATORY Performing Organization Address City/State/[facility] Co de Phone Number [facility] [address] [address] * (ABNORMAL) ICU PANEL BASIC METABOLIC (BMP) (11/06/2023 6:31 AM DISTILLERY MILLER HELPER) Sodium 142 135 - 148 mEq/L [facility] Potassium 3.7 3.5 - 5.3 mEq/L [facility] Chloride 107 92 - 108 mEq/L [facility] CO2 26 22 - 30 mEq/L [facility] AnGap 9 8 - 16 mEq/L [facility] Glucose 148(H) 70 - 100 mg/dL [facility] BUN 12 8 - 23 mg/dL [facility] Creatinine 0.77 0.50 - 1.00 mg/dL [facility] Calcium 8.7(L) 8.8 - 10.2 mg/dL [facility] eGFR (2020 CKD-EPI) 77 >=60 ml/min/1.7 3m2 [facility] Comment: The estimated glomerular filtration rate (eGFR) was calculated using the CKD-EPI 2020 creatinine equation, which does not include race as a factor. This equation is validated in individuals 18 years of age and older, and eGFR is normalized to a body surface area of 1.73m^2. Blood 11/06/2023 6:31 AM DISTILLERY MILLER HELPER 11/06/2023 7:37 AM DISTILLERY MILLER HELPER Devin Dougherty MD LABORATORY Performing Organization Address City/State/[facility] Co de Phone Number [facility] [address] [address] * PROTHROMBIN (PT) & INR (11/06/2023 6:31 AM DISTILLERY MILLER HELPER) Pathologist [facility] PT 11.4 9.0 - 12.5 sec [facility] INR 1.0 0.8 - 1.1 [facility] Comment: Warfarin Therapeutic Range: Standard Intensity: 2.0 - 3.0 High Intensity: 2.5 - 3.5 Blood 11/06/2023 6:31 AM DISTILLERY MILLER HELPER 11/06/2023 7:37 AM DISTILLERY MILLER HELPER Quinn Covarrubias MD LABORATORY Performing Organization Address [facility] Co de Phone Number [address] [address] * (ABNORMAL) POC GLUCOSE (11/06/2023 5:39 AM DISTILLERY MILLER HELPER) Pathologist [facility] POC Glucose 149(H) 70 - 100 mg/dL [facility] Blood 11/06/2023 5:39 AM DISTILLERY MILLER HELPER Devin Dougherty MD LABORATORY Performing Organization Address [facility] Co de Phone Number [facility] OF [address] [address], * (ABNORMAL) POC GLUCOSE (11/05/2023 4:54 PM DISTILLERY MILLER HELPER) Pathologist [facility] POC Glucose 170(H) 70 - 100 mg/dL [facility] Blood 11/05/2023 4:54 PM DISTILLERY MILLER HELPER Devin Dougherty MD LABORATORY Performing Organization Address City/[facility] Co de Phone Number [facility] OF [address] [address], * (ABNORMAL) MAGNESIUM (11/05/2023 4:48 PM DISTILLERY MILLER HELPER) Magnesium 2.8(H) 1.6 - 2.4 mg/dL [facility] Blood 11/05/2023 4:48 PM DISTILLERY MILLER HELPER 11/05/2023 4:58 PM DISTILLERY MILLER HELPER Quinn Covarrubias MD LABORATORY [facility] [address] [address] * (ABNORMAL) POTASSIUM (11/05/2023 4:48 PM DISTILLERY MILLER HELPER) Potassium 3.2(L) 3.5 - 5.3 mEq/L [facility] Blood 11/05/2023 4:48 PM DISTILLERY MILLER HELPER 11/05/2023 4:58 PM DISTILLERY MILLER HELPER Quinn Covarrubias MD LABORATORY Performing Organization Address [facility] Co de Phone Number [facility] [address] [address] * CT HEAD NO IV CONTRAST (11/05/2023 11:44 AM DISTILLERY MILLER HELPER) Anatomical Region Laterality Modality Skull Computed Tomogra phy 11/05/2023 12:1 6 PM DISTILLERY MILLER HELPER Impressions 11/05/2023 12:38 PM DISTILLERY MILLER HELPER Impression: Stable head CT as compared to the study performed 7 hours earlier. Intra-axial and extra-axial hemorrhage(s) without midline shift or hydrocephalus. The basal cisterns are patent. Reading Radiologist: Ford Fernández 11/05/2023 12:38 PM DISTILLERY MILLER HELPER Exam: Head CT without contrast, 11/05/2023 Indication: [...] * (ABNORMAL) POC GLUCOSE (11/05/2023 11:11 AM DISTILLERY MILLER HELPER) POC Glucose 201(H) 70 - 100 mg/dL [facility] CARE Blood 11/05/2023 11:1 1 AM DISTILLERY MILLER HELPER Devin Dougherty MD LABORATORY Performing Organization Address City/[facility]/ZIP Co de Phone Number [facility]INT [facility] CARE [address] [place] [address], * EKG ADULT (12-LEAD) (11/05/2023 6:38 AM DISTILLERY MILLER HELPER) 11/05/2023 6:38 AM DISTILLERY MILLER HELPER Impressions [facility] CVIS EKG ORDERS - 11/05/2023 6:38 AM DISTILLERY MILLER HELPER SINUS RHYTHM RIGHT BUNDLE BRANCH BLOCK ??[120+ ms QRS DURATION, UPRIGHT V1, 40+ ms S IN I/aVL/V4/V5/V6] ABNORMAL ECG P-R Interval 151 ms QRS Interval 128 ms QT Interval 420 ms QTC Interval 462 ms P [place] 9 QRS [place] 27 T Wave [place] 70 Narrative Procedure Note Lauren Mills MD - 11/06/2023 IMPRESSION SINUS RHYTHM RIGHT BUNDLE BRANCH BLOCK [120+ ms QRS DURATION, UPRIGHT V1, 40+ ms S INI/aVL/V4/V5/V6] ABNORMAL ECG P-R Interval 151 ms QRS Interval 128 ms QT Interval 420 ms QTC Interval 462 ms P [place] 9 QRS [place] 27 T Wave [place] 70 Quinn Covarrubias MD EKG Performing Organization Address City/[facility]/ZIP Co de Phone Number [facility] CVIS EKG ORDERS * (ABNORMAL) POC GLUCOSE (11/05/2023 6:07 AM DISTILLERY MILLER HELPER) POC Glucose 188(H) 70 - 100 mg/dL [facility]ARE Blood 11/05/2023 6:07 AM DISTILLERY MILLER HELPER Devin Dougherty MD LABORATORY [facility] - [place] [address], [place] * CT HEAD NO IV CONTRAST (11/05/2023 4:54 AM DISTILLERY MILLER HELPER) Anatomical Region Laterality Modality Skull Computed Tomogra phy 11/05/2023 4:56 AM DISTILLERY MILLER HELPER Impressions 11/05/2023 11:09 AM DISTILLERY MILLER HELPER Impression: 1. Stable to perhaps minimally increased [...] Reading Resident: Laith Berkowitz 11/05/2023 11:09 AM DISTILLERY MILLER HELPER Exam: Head CT without contrast, 11/05/2023 Indication: [...] PROTHROMBIN (PT) & INR (11/05/2023 4:27 AM DISTILLERY MILLER HELPER) PT 12.3 9.0 - 12.5 sec [facility] INR 1.1 0.8 - 1.1 [facility] Comment: This sample may have abnormal results due to the presence of lipemia. Warfarin Therapeutic Range: Standard Intensity: 2.0 - 3.0 High Intensity: 2.5 - 3.5 Blood 11/05/2023 4:27 AM DISTILLERY MILLER HELPER 11/05/2023 4:35 AM DISTILLERY MILLER HELPER Quinn Covarrubias MD LABORATORY Performing Organization Address City/[facility]/ZIP Co de Phone Number [facility] [place] [phone] * ICU PHOSPHORUS (11/05/2023 4:27 AM DISTILLERY MILLER HELPER) Phosphorus 3.5 2.5 - 4.5 mg/dL [facility] Blood 11/05/2023 4:27 AM DISTILLERY MILLER HELPER 11/05/2023 4:36 AM DISTILLERY MILLER HELPER Devin Dougherty MD LABORATORY Performing Organization Address City/[facility]/ZIP Co de Phone Number [facility] [address] [address] * (ABNORMAL) ICU MAGNESIUM (11/05/2023 4:27 AM DISTILLERY MILLER HELPER) Magnesium 1.5(L) 1.6 - 2.4 mg/dL [facility] Blood 11/05/2023 4:27 AM DISTILLERY MILLER HELPER 11/05/2023 4:36 AM DISTILLERY MILLER HELPER Devin Dougherty MD LABORATORY [facility] [address] [address] * (ABNORMAL) ICU BLOOD GAS (11/05/2023 4:27 AM DISTILLERY MILLER HELPER) PH Art 7.38 7.35 - 7.45 [facility] PCO2 Art 42 35 - 45 mmHG [facility] PO2 Art 99(H) 75 - 85 mmHG [facility] Bicarb Art 25 22 - 26 mEq/L [facility] O2 Sat Art 98 96 - 99 % [facility] Base Exc Art 0.0 -10.0 - 2.0 mEq/L [facility] Blood Arterial 11/05/2023 4: 27 AM DISTILLERY MILLER HELPER 11/05/2023 4:34 AM DISTILLERY MILLER HELPER Devin Dougherty MD LABORATORY Performing Organization Address City/[facility] Co de Phone Number [facility] [address] [address] * (ABNORMAL) ICU CBC WITH PLATELET (11/05/2023 4:27 AM DISTILLERY MILLER HELPER) WBC 13.69(H) 4.00 - 10.00 k/cmm [facility] RBC 3.49(L) 3.90 - 5.20 m/cmm [facility] Hgb 9.8(L) 11.5 - 15.7 g/dL [facility] Hematocrit 28.2(L) 34.0 - 45.0 % [facility] MCV 80.8 80.0 - 100.0 fL [facility] MCH 28.1 25.0 - 32.0 pg [facility] MCHC 34.8 31.0 - 36.0 g/dL [facility] RDW 15.4(H) 11.5 - 14.5 % [facility] Plt 330 150 - 400 k/cmm [facility] MPV 10.9 6.5 - 12.5 fL [facility] Blood 11/05/2023 4:27 AM DISTILLERY MILLER HELPER 11/05/2023 4:35 AM DISTILLERY MILLER HELPER Devin Dougherty MD LABORATORY [facility] [address] [address] * (ABNORMAL) ICU PANEL BASIC METABOLIC (BMP) (11/05/2023 4:27 AM DISTILLERY MILLER HELPER) Sodium 138 135 - 148 mEq/L [facility] Potassium 3.2(L) 3.5 - 5.3 mEq/L [facility] Chloride 102 92 - 108 mEq/L [facility] CO2 24 22 - 30 mEq/L [facility] AnGap 12 8 - 16 mEq/L [facility] Glucose 200(H) 70 - 100 mg/dL [facility] BUN 16 8 - 23 mg/dL [facility] Creatinine 0.80 0.50 - 1.00 mg/dL [facility] Calcium 8.7(L) 8.8 - 10.2 mg/dL [facility] eGFR (2020 CKD-EPI) 74 >=60 ml/min/1.7 3m2 [facility] Comment: The estimated glomerular filtration rate (eGFR) was calculated using the CKD-EPI 2020 creatinine equation, which does not include race as a factor. This equation is validated in individuals 18 years of age and older, and eGFR is normalized to a body surface area of 1.73m^2. Blood 11/05/2023 4:27 AM DISTILLERY MILLER HELPER 11/05/2023 4:36 AM DISTILLERY MILLER HELPER Devin Dougherty MD LABORATORY Performing Organization Address City/[facility]/ZIP Co de Phone Number [facility] [address] [address] * (ABNORMAL) TROP 6H (11/05/2023 4:27 AM DISTILLERY MILLER HELPER) 6H Trop 51(H) <=14 ng/L [facility] 6H Delta Significan t(A) Not Significant [facility] Blood 11/05/2023 4:27 AM DISTILLERY MILLER HELPER 11/05/2023 4:35 AM DISTILLERY MILLER HELPER Devin Dougherty MD LABORATORY Performing Organization Address [facility]/ZIP Co de Phone Number [facility] [address] [address] * (ABNORMAL) TROP 4H (11/05/2023 2:58 AM DISTILLERY MILLER HELPER) 4H Trop 39(H) <=14 ng/L [facility] 4H Delta Significan t(A) Not Significant [facility] Blood 11/05/2023 2:58 AM DISTILLERY MILLER HELPER 11/05/2023 3:48 AM DISTILLERY MILLER HELPER Devin Dougherty MD LABORATORY Performing Organization Address City/[facility] Co de Phone Number [facility] [place] [phone] * CK, TOTAL (11/05/2023 1:32 AM DISTILLERY MILLER HELPER) CK 56 26 - 192 IU/L [facility] Blood 11/05/2023 1:32 AM DISTILLERY MILLER HELPER 11/05/2023 1:32 AM DISTILLERY MILLER HELPER Devin Dougherty MD LABORATORY Performing Organization Address City/[facility] Co de Phone Number [place] [phone] * FIBRINOGEN (11/05/2023 1:32 AM DISTILLERY MILLER HELPER) Fibrinogen 262 200 - 400 mg/dL [facility] Blood 11/05/2023 1:32 AM DISTILLERY MILLER HELPER 11/05/2023 1:32 AM DISTILLERY MILLER HELPER Devin Dougherty MD LABORATORY Performing Organization Address City/[facility] Co de Phone Number [facility] [address] [address] * PTT (APTT) (11/05/2023 1:32 AM DISTILLERY MILLER HELPER) APTT 26.0 25.0 - 37.0 sec [facility] Blood 11/05/2023 1:32 AM DISTILLERY MILLER HELPER 11/05/2023 1:32 AM DISTILLERY MILLER HELPER Devin Dougherty MD LABORATORY Performing Organization Address City/[facility] Co de Phone Number [facility] [address] [address] * (ABNORMAL) PANEL HEPATIC FUNCTION (11/05/2023 1:32 AM DISTILLERY MILLER HELPER) Pathologist [facility] Alk Phos 111(H) 35 - 104 IU/L [facility] Total Protein 6.5 6.4 - 8.3 g/dL [facility] Bili Direct na <=0.3 mg/dL [facility] Comment:Direct Bilirubin = < 0.2. Accuracy of result suspect due to lipemia. Albumin 3.8 3.8 - 5.1 g/dL [facility] Bili Total <0.2 <=1.2 mg/dL [facility] ALT (SGPT) na <=33 [facility] Comment:ALT = 15. Accuracy o f result suspect due to lipemia. AST(SGOT) na 5 - 40 [facility] Comment:AST = 27. Accuracy o f result suspect due to lipemia. Blood 11/05/2023 1:32 AM DISTILLERY MILLER HELPER 11/05/2023 1:32 AM DISTILLERY MILLER HELPER Devin Dougherty MD LABORATORY [facility] [address] [address] * (ABNORMAL) CBC WITH PLATELET (11/05/2023 1:32 AM DISTILLERY MILLER HELPER) Pathologist [facility] WBC 14.77(H) 4.00 - 10.00 k/cmm [facility] RBC 3.70(L) 3.90 - 5.20 m/cmm [facility] Hgb 9.9(L) 11.5 - 15.7 g/dL [facility] Hematocrit 30.0(L) 34.0 - 45.0 % [facility] MCV 81.1 80.0 - 100.0 fL [facility] MCH 26.8 25.0 - 32.0 pg [facility] MCHC 33.0 31.0 - 36.0 g/dL [facility] RDW 15.4(H) 11.5 - 14.5 % [facility] Plt 324 150 - 400 k/cmm [facility] MPV 11.0 6.5 - 12.5 fL [facility] Blood 11/05/2023 1:32 AM DISTILLERY MILLER HELPER 11/05/2023 1:32 AM DISTILLERY MILLER HELPER Devin Dougherty MD LABORATORY Performing Organization Address [facility] Co de Phone Number [facility] [address] [address] * (ABNORMAL) PANEL BASIC METABOLIC (BMP) (11/05/2023 1:32 AM DISTILLERY MILLER HELPER) Potassium 3.1(L) 3.5 - 5.3 mEq/L [facility] Sodium 138 135 - 148 mEq/L [facility] CO2 25 22 - 30 mEq/L [facility] Glucose 242(H) 70 - 100 mg/dL [facility] BUN 16 8 - 23 mg/dL [facility] Creatinine 0.76 0.50 - 1.00 mg/dL [facility] Chloride 101 92 - 108 mEq/L [facility] eGFR (2020 CKD-EPI) 79 >=60 ml/min/1.7 3m2 [facility] Comment: The estimated glomerular filtration rate (eGFR) was calculated using the CKD-EPI 2020 creatinine equation, which does not include race as a factor. This equation is validated in individuals 18 years of age and older, and eGFR is normalized to a body surface area of 1.73m^2. AnGap 12 8 - 16 mEq/L [facility] Calcium 8.8 8.8 - 10.2 mg/dL [facility] Blood 11/05/2023 1:32 AM DISTILLERY MILLER HELPER 11/05/2023 1:32 AM DISTILLERY MILLER HELPER Devin Dougherty MD LABORATORY Performing Organization Address [facility] Co de Phone Number [facility] [address] [address] * (ABNORMAL) MAGNESIUM (11/05/2023 1:32 AM DISTILLERY MILLER HELPER) Magnesium 1.5(L) 1.6 - 2.4 mg/dL [facility] Blood 11/05/2023 1:32 AM DISTILLERY MILLER HELPER 11/05/2023 1:32 AM DISTILLERY MILLER HELPER Devin Dougherty MD LABORATORY Performing Organization Address [facility] Co de Phone Number [facility] [address] [address] * PHOSPHORUS (11/05/2023 1:32 AM DISTILLERY MILLER HELPER) Phosphorus 3.4 2.5 - 4.5 mg/dL [facility] Blood 11/05/2023 1:32 AM DISTILLERY MILLER HELPER 11/05/2023 1:32 AM DISTILLERY MILLER HELPER Devin Dougherty MD LABORATORY Performing Organization Address [facility] Co de Phone Number [facility] [address] [address] * PROTHROMBIN (PT) & INR (11/05/2023 1:32 AM DISTILLERY MILLER HELPER) PT 11.8 9.0 - 12.5 sec [facility] INR 1.0 0.8 - 1.1 [facility] Comment: Warfarin Therapeutic Range: Standard Intensity: 2.0 - 3.0 High Intensity: 2.5 - 3.5 Blood 11/05/2023 1:32 AM DISTILLERY MILLER HELPER 11/05/2023 1:32 AM DISTILLERY MILLER HELPER Devin Dougherty MD LABORATORY Performing Organization Address [facility] Co de Phone Number [facility] [address] [address] * CALCIUM,IONIZED (11/05/2023 1:18 AM DISTILLERY MILLER HELPER) PH 7.37 7.32 - 7.42 [facility] ICA, Actual 4.82 4.40 - 5.20 mg/dL [facility] ICA, pH Corrected 4.75 4.40 - 5.20 mg/dL [facility] Blood 11/05/2023 1:18 AM DISTILLERY MILLER HELPER 11/05/2023 1:27 AM DISTILLERY MILLER HELPER Narrative [facility] - 11/05/2023 1:44 AM DISTILLERY MILLER HELPER Send specimen on ice! Devin Dougherty MD LABORATORY Performing Organization Address [facility] Co de Phone Number [facility] [address] [address] * LACTATE (LACTIC ACID) (11/05/2023 1:18 AM DISTILLERY MILLER HELPER) Lactate 1.9 0.7 - 2.1 mmol/L [facility] Blood 11/05/2023 1:18 AM DISTILLERY MILLER HELPER 11/05/2023 1:27 AM DISTILLERY MILLER HELPER Narrative [facility] - 11/05/2023 1:45 AM DISTILLERY MILLER HELPER Send specimen on ice! Devin Dougherty MD LABORATORY Performing Organization Address [facility] Co de Phone Number [facility] [address] [address] * BLOOD GASES (11/05/2023 1:18 AM DISTILLERY MILLER HELPER) PH Art 7.37 7.35 - 7.45 [facility] PCO2 Art 43 35 - 45 mmHG [facility] PO2 Art 83 75 - 85 mmHG [facility] Bicarb Art 25 22 - 26 mEq/L [facility] O2 Sat Art 96 96 - 99 % [facility] Base Exc Art -0.3 -10.0 - 2.0 mEq/L [facility] Blood Arterial 11/05/2023 1: 18 AM DISTILLERY MILLER HELPER 11/05/2023 1:27 AM DISTILLERY MILLER HELPER Devin Dougherty MD LABORATORY Performing Organization Address [facility] Co de Phone Number [facility] [address] [address] * (ABNORMAL) TROP 2H (11/05/2023 1:18 AM DISTILLERY MILLER HELPER) 2H Trop 18(H) <=14 ng/L [facility] 2H Delta Indeterminate Not Significant [facility] Blood 11/05/2023 1:18 AM DISTILLERY MILLER HELPER 11/05/2023 1:45 AM DISTILLERY MILLER HELPER Devin Dougherty MD LABORATORY Performing Organization Address [facility]/ZIP Co de Phone Number [facility] [address] [address] * CT HEAD-NECK - ANGIO - W/IV CON (11/05/2023 12:09 AM DISTILLERY MILLER HELPER) Anatomical Region Laterality Modality Skull Computed Tomogra phy 11/05/2023 12:2 1 AM DISTILLERY MILLER HELPER Impressions 11/05/2023 10:22 AM DISTILLERY MILLER HELPER Impression: ?? Slightly increased size of the [...] Fernández Resident: Laith Berkowitz 11/05/2023 10:[address] angiogram of the Head with contrast, [...] and reviewed by the Radiologist using the PayDragon[employer] workstation, and these images were archived in [...] and reviewed by the Radiologist using the [employer] workstation,and these images were archived in the [...] NEURO * (ABNORMAL) URINALYSIS,TOTAL (11/04/2023 11:55 PM DISTILLERY MILLER HELPER) Color COLORLESS YELLOW [facility] Appearance CLEAR CLEAR [facility] Urine Glucose 100(A) NEGATIVE mg/dL [facility] Bili UA NEGATIVE NEGATIVE [facility] Ketones NEGATIVE NEGATIVE [facility] Specific Pitcher 1.036(A) 1.003 - 1.030 [facility] Blood Ur NEGATIVE Neg-Trace [facility] PH Urine 7.5(H) 5.0 - 7.0 [facility] Protein Ur TRACE Neg-Trace [facility] Urobilinogen NORMAL NORMAL EU/dL [facility] Nitrite Ur NEGATIVE NEGATIVE [facility] Leuk Est NEGATIVE Neg-Trace [facility] WBC Ur 0-5 0 - 5 perHPF [facility] RBC Ur 0-3 0 - 3 perHPF [facility] SQ EPITH 0-5 0 - 5 perHPF [facility] Urinalysis Performed at: [facility] Urine 11/04/2023 11:5 5 PM DISTILLERY MILLER HELPER 11/05/2023 12:03 AM DISTILLERY MILLER HELPER Devin Dougherty MD LABORATORY [facility] [address] [address] * PF INSERT CATH,ART,PERCUT,SHORTTERM (11/04/2023 11:43 PM DISTILLERY MILLER HELPER) Narrative Rito Graf MD - 11/04/2023 11:43 PM DISTILLERY MILLER HELPER Priscilla Holcomb MD ? 11/04/2023 11:44 PM Arterial Line Performed by: Priscilla Holcomb MD Authorized by: Rito Graf MD ?? Consent: ??Consent obtained: ??Verbal ??Consent given by: ??Patient ??Risks discussed: ??Pain, bleeding and infection [place] protocol: ??Patient identity confirmed: ??Verbally with patient, [...] * ED EKG (12-LEAD) (11/04/2023 11:25 PM DISTILLERY MILLER HELPER) 11/04/2023 11:2 5 PM DISTILLERY MILLER HELPER Impressions [facility] CVIS EKG ORDERS - 11/04/2023 11:25 PM DISTILLERY MILLER HELPER SINUS TACHYCARDIA RIGHT BUNDLE BRANCH BLOCK ??[120+ ms QRS DURATION, UPRIGHT V1, 40+ ms S IN I/aVL/V4/V5/V6] ABNORMAL ECG P-R Interval 173 ms QRS Interval 127 ms QT Interval 395 ms QTC Interval 458 ms P [place] 57 QRS [place] 34 T Wave [place] 43 Narrative Procedure Note Vineet Díaz MD - 11/05/2023 IMPRESSION SINUS TACHYCARDIA RIGHT BUNDLE BRANCH BLOCK [120+ ms QRS DURATION, UPRIGHT V1, 40+ ms S INI/aVL/V4/V5/V6] ABNORMAL ECG P-R Interval 173 ms QRS Interval 127 ms QT Interval 395 ms QTC Interval 458 ms P [place] 57 QRS [place] 34 T Wave [place] 43 Devin Dougherty MD EKG [facility] CVIS EKG ORDERS * CT SPINE LUMBAR NO IV CON (11/04/2023 11:05 PM DISTILLERY MILLER HELPER) Anatomical Region Laterality Modality Lumbar Spine Computed Tomogra phy 11/04/2023 11:2 3 PM DISTILLERY MILLER HELPER Impressions 11/05/2023 9:22 AM DISTILLERY MILLER HELPER Impression: 1. No suspected acute fracture or dislocation of the thoracic or lumbar spine. ?? 2. Tkvs-do-jjszzcbi lumbar spondylosis without suspected high-grade spinal canal or neural foraminal narrowing. I have personally reviewed the image(s) and initial interpretation, and I agree with the findings as documented by the resident/fellow. Reading Radiologist: Ford Fernández Resident: Laith Berkowitz Narrative 11/05/2023 9:22 AM DISTILLERY MILLER HELPER Exam: Thoracic and Lumbar Spine CT Reconstructions, [...] dislocation of the thoracic or lumbarspine. 2. Lyhf-wx-dtwwbcvi lumbar spondylosis without suspected high-grade spinalcanal or neural foraminal narrowing. I have personally reviewed the image(s) and initial interpretation, and Iagree with the findings as documented by the resident/fellow. Reading Radiologist: Ford Fernández Resident: Laith Berkowitz Devin Dougherty MD RAD CT NEURO * CT SPINE THORACIC NO IV CON (11/04/2023 11:05 PM DISTILLERY MILLER HELPER) Anatomical Region Laterality Modality Thoracic Spine Computed Tomogra phy 11/04/2023 11:2 3 PM DISTILLERY MILLER HELPER Impressions 11/05/2023 9:22 AM DISTILLERY MILLER HELPER Impression: 1. No suspected acute fracture or dislocation of the thoracic or lumbar spine. ?? 2. Xbka-cp-imlrcelx lumbar spondylosis without suspected high-grade spinal canal or neural foraminal narrowing. I have personally reviewed the image(s) and initial interpretation, and I agree with the findings as documented by the resident/fellow. Reading Radiologist: Ford Fernández Resident: Laith Berkowitz Narrative 11/05/2023 9:22 AM DISTILLERY MILLER HELPER Exam: Thoracic and Lumbar Spine CT Reconstructions, [...] dislocation of the thoracic or lumbarspine. 2. Dpah-np-dtyaduca lumbar spondylosis without suspected high-grade spinalcanal or neural foraminal narrowing. I have personally reviewed the image(s) and initial interpretation, and Iagree with the findings as documented by the resident/fellow. Reading Radiologist: Ford Fernández Resident: Laith Berkowitz Devin Dougherty MD RAD CT NEURO * CT CHEST/ABD/PELVIS W/IV CONT (11/04/2023 11:05 PM DISTILLERY MILLER HELPER) Anatomical Region Laterality Modality Chest Computed Tomogra phy 11/04/2023 11:2 9 PM DISTILLERY MILLER HELPER Impressions 11/05/2023 6:33 AM DISTILLERY MILLER HELPER Impression: 1. No acute traumatic sequelae in [...] Reading Resident: Laith Berkowitz 11/05/2023 6:33 AM DISTILLERY MILLER HELPER Comparison: None Indication: Trauma (STAB) ?? Technique: [...] CERVICAL NO IV CON (11/04/2023 11:05 PM DISTILLERY MILLER HELPER) Anatomical Region Laterality Modality Cervical Spine Computed Tomogra phy 11/04/2023 11:2 0 PM DISTILLERY MILLER HELPER Impressions 11/05/2023 8:27 AM DISTILLERY MILLER HELPER Impression: ?? 1. No acute fracture or traumatic subluxation of the cervical vertebrae. 2. Mild degenerative changes of the cervical spine without high-grade spinal canal or neural foraminal narrowing. I have personally reviewed the image(s) and initial interpretation, and I agree with the findings as documented by the resident/fellow. Reading Radiologist: Ford Fernández Resident: Laith Berkowitz Narrative 11/05/2023 8:27 AM DISTILLERY MILLER HELPER Exam: Cervical spine CT without contrast, 11/04/2023 [...] spinal canal narrowing. C5-6: Mild left and tqfu-az-tysgozdi right neural foraminal narrowing. Borderline mild spinal [...] spinal canal narrowing. C5-6: Mild left and jxkx-wi-tsrzmrwu right neural foraminal narrowing.Borderline mild spinal canal [...] HEAD NO IV CONTRAST (11/04/2023 11:05 PM DISTILLERY MILLER HELPER) Anatomical Region Laterality Modality Skull Computed Tomogra phy 11/04/2023 11:1 2 PM DISTILLERY MILLER HELPER Impressions 11/05/2023 10:23 AM DISTILLERY MILLER HELPER Impression: 1. Thin subdural hemorrhage, measuring up [...] Fernández Resident: Laith Berkowitz 11/05/2023 10:23 AM DISTILLERY MILLER HELPER Exam: Head CT without contrast, 11/05/2023 Indication: [...] VIEW AP OR PA* (11/04/2023 10:57 PM DISTILLERY MILLER HELPER) Anatomical Region Laterality Modality Chest Computed Radiogr aphy 11/04/2023 11:0 0 PM DISTILLERY MILLER HELPER Impressions 11/05/2023 6:18 AM DISTILLERY MILLER HELPER Impression: No acute cardiopulmonary findings. I have personally reviewed the image(s) and initial interpretation, and I agree with the findings as documented by the resident/fellow. Reading Radiologist: Scott Porras Resident: Laith Berkowitz Narrative 11/05/2023 6:18 AM DISTILLERY MILLER HELPER Technique: XR CHEST 1 VIEW AP OR [...] HEMOGLOBIN TOTAL (ED ONLY) (11/04/2023 10:48 PM DISTILLERY MILLER HELPER) Hgb 10.3(L) 11.5 - 15.7 g/dL [facility] Blood 11/04/2023 10:4 8 PM DISTILLERY MILLER HELPER 11/04/2023 10:49 PM DISTILLERY MILLER HELPER Devin Dougherty MD LABORATORY [facility] [address] [address] * (ABNORMAL) ED CHEMISTRY LABS(NA,K,CL,CO2,GLU,CREAT,CA-IONIZED,ANION GAP) (11/04/2023 10:48 PM DISTILLERY MILLER HELPER) Sodium 144 135 - 148 mEq/L [facility] Chloride 106 92 - 108 mEq/L [facility] AnGap 11 8 - 16 mEq/L [facility] Glucose 234(H) 70 - 100 mg/dL [facility] ICA, Actual 4.52 4.40 - 5.20 mg/dL [facility] ICA, pH Corrected 4.51 4.40 - 5.20 mg/dL [facility] Creatinine 0.81 0.50 - 1.00 mg/dL [facility] BICARB 27(H) 22 - 26 mEq/L [facility] eGFR (2020 CKD-EPI) 73 >=60 ml/min/1.7 3m2 [facility] Comment: The estimated glomerular filtration rate (eGFR) was calculated using the CKD-EPI 2020 creatinine equation, which does not include race as a factor. This equation is validated in individuals 18 years of age and older, and eGFR is normalized to a body surface area of 1.73m^2. Potassium 2.8(AA) 3.5 - 5.3 mEq/L [facility] Comment:Critcal Result Low Blood 11/04/2023 10:4 8 PM DISTILLERY MILLER HELPER 11/04/2023 10:49 PM DISTILLERY MILLER HELPER Narrative [facility] - 11/04/2023 10:55 PM DISTILLERY MILLER HELPER Critical value for Potassium called to and read back by Rafa Hutchins RN in ??EDSTAB 2 at 11/04/2023 22:55:31 DISTILLERY MILLER HELPER by Eleni Spring MLS. Devin Dougherty MD LABORATORY Performing Organization Address [facility] Co de Phone Number [facility] [address] [address] * (ABNORMAL) ANTI XA HEPARIN UNFRACTIONATED (11/04/2023 10:45 PM DISTILLERY MILLER HELPER) Anti XA Hep U <0.04(L) 0.30 - 0.70 IU/mL [facility] Blood 11/04/2023 10:4 5 PM DISTILLERY MILLER HELPER 11/04/2023 11:05 PM DISTILLERY MILLER HELPER Devin Dougherty MD LABORATORY Performing Organization Address [facility] Co de Phone Number [facility] [address] [address] * EXTRA TUBE - SST (11/04/2023 10:45 PM DISTILLERY MILLER HELPER) SST TUBE Stored [facility] Comment:SST tubes (Serum Sep arator) are stored in the lab for 3 days from the collection date. Blood 11/04/2023 10:4 5 PM DISTILLERY MILLER HELPER 11/04/2023 10:50 PM DISTILLERY MILLER HELPER Devin Dougherty MD LABORATORY Performing Organization Address [facility] Co de Phone Number [facility] [address] [address] * EXTRA TUBE - LIGHT GREEN (11/04/2023 10:45 PM DISTILLERY MILLER HELPER) Pathologist [facility] LIGHT GREEN TUBE Stored [facility] Comment:Green tubes ([place] Heparin) are stored in the lab for 3 days from the collection date. Blood 11/04/2023 10:4 5 PM DISTILLERY MILLER HELPER 11/04/2023 10:50 PM DISTILLERY MILLER HELPER Devin Dougherty MD LABORATORY Performing Organization Address City/[facility]/ZIP Co de Phone Number [facility] [address] [address] * HS TROPONIN (11/04/2023 10:45 PM DISTILLERY MILLER HELPER) [facility] HS Troponin I 10 <=14 ng/L [facility] Blood 11/04/2023 10:4 5 PM DISTILLERY MILLER HELPER 11/04/2023 11:05 PM DISTILLERY MILLER HELPER Narrative [facility] - 11/04/2023 11:36 PM DISTILLERY MILLER HELPER First Occurrence of the Troponin order is to be drawn Stat by Nursing staff on the unit. Devin Dougherty MD LABORATORY Performing Organization Address [facility] Co de Phone Number [address] [address] * (ABNORMAL) PTT (APTT) (11/04/2023 10:45 PM DISTILLERY MILLER HELPER) [facility] APTT 22.9(L) 25.0 - 37.0 sec [facility] Blood 11/04/2023 10:4 5 PM DISTILLERY MILLER HELPER 11/04/2023 11:05 PM DISTILLERY MILLER HELPER Devin Dougherty MD LABORATORY Performing Organization Address [facility] Co de Phone Number [address] [address] * ED INR (11/04/2023 10:45 PM DISTILLERY MILLER HELPER) Pathologist [facility] ED INR 1.0 0.8 - 1.1 [facility] Comment: Warfarin Therapeutic Range: Standard Intensity: 2.0 - 3.0 High Intensity: 2.5 - 3.5 Blood 11/04/2023 10:4 5 PM DISTILLERY MILLER HELPER 11/04/2023 10:48 PM DISTILLERY MILLER HELPER Devin Dougherty MD LABORATORY [facility] [address] [address] * PRECAUTIONARY TUBE (11/04/2023 10:45 PM DISTILLERY MILLER HELPER) Prec Tube Precautionary Blood Bank Specimen Received. [facility] Blood 11/04/2023 10:4 5 PM DISTILLERY MILLER HELPER 11/04/2023 10:52 PM DISTILLERY MILLER HELPER Devin Dougherty MD LAB TRANSFUSION SER VICES Performing Organization Address [facility] Co de Phone Number [address] [address] * (ABNORMAL) LACTATE (LACTIC ACID) (11/04/2023 10:45 PM DISTILLERY MILLER HELPER) Lactate 2.7(H) 0.7 - 2.1 mmol/L [facility] Blood 11/04/2023 10:4 5 PM DISTILLERY MILLER HELPER 11/04/2023 10:50 PM DISTILLERY MILLER HELPER Narrative [facility] - 11/04/2023 10:50 PM DISTILLERY MILLER HELPER Send specimen on ice! Devin Dougherty MD LABORATORY Performing Organization Address [facility] Co de Phone Number [facility] [address] [address] * FIBRINOGEN (11/04/2023 10:45 PM DISTILLERY MILLER HELPER) Fibrinogen 288 200 - 400 mg/dL [facility] Blood 11/04/2023 10:4 5 PM DISTILLERY MILLER HELPER 11/04/2023 11:05 PM DISTILLERY MILLER HELPER Devin Dougherty MD LABORATORY Performing Organization Address City/[facility]/ZIP Co de Phone Number [facility] [address] [address] * (ABNORMAL) CBC WITH PLTS/AUTO DIFF (11/04/2023 10:45 PM DISTILLERY MILLER HELPER) WBC 9.42 4.00 - 10.00 k/cmm [facility] RBC 3.86(L) 3.90 - 5.20 m/cmm [facility] Hgb 9.8(L) 11.5 - 15.7 g/dL [facility] Hematocrit 31.8(L) 34.0 - 45.0 % [facility] MCV 82.4 80.0 - 100.0 fL [facility] MCH 25.4 25.0 - 32.0 pg [facility] MCHC 30.8(L) 31.0 - 36.0 g/dL [facility] RDW 15.3(H) 11.5 - 14.5 % [facility] Plt 292 150 - 400 k/cmm [facility] MPV 11.1 6.5 - 12.5 fL [facility] Automated Abs Neutrophil 5.80 1.70 - 6.50 k/cmm [facility] Comment:Preliminary ANC, Fin al Result to Follow Abs Immature Granulocyte 0.07 0.00 - 0.09 k/cmm [facility] Comment:The Immature Granulo cyte Absolute count contains metamyelocytes and myelocytes. Abs Neutrophil 5.80 1.70 - 6.50 k/cmm [facility] Abs Lymphocyte 2.33 0.80 - 4.00 k/cmm [facility] Abs Monocyte 0.88 0.20 - 1.00 k/cmm [facility] Abs Eosinophil 0.27 0.00 - 0.60 k/cmm [facility] Abs Basophil 0.07 0.00 - 0.20 k/cmm [facility] Blood 11/04/2023 10:4 5 PM DISTILLERY MILLER HELPER 11/04/2023 11:05 PM DISTILLERY MILLER HELPER Devni Dougherty MD LABORATORY [facility] [address] [place] [id number] * (ABNORMAL) BLOOD GASES (11/04/2023 10:45 PM DISTILLERY MILLER HELPER) Pathologist [facility] PH Jalen 7.39 7.32 - 7.42 [facility] PCO2 Jalen 45 41 - 51 mmHG [facility] PO2 Jalen 41(H) 25 - 40 mmHG [facility] Bicarb Jalen 27 24 - 28 mEq/L [facility] O2 Sat Jalen 69 % [facility] Base Exc Jalen 1.4 -10.0 - 2.0 mEq/L [facility] Blood Venous 11/04/2023 10:4 5 PM DISTILLERY MILLER HELPER 11/04/2023 10:50 PM DISTILLERY MILLER HELPER Devin Dougherty MD LABORATORY [facility] [address] [address] * ED US CRITICAL CARE (11/04/2023 10:40 PM DISTILLERY MILLER HELPER) Anatomical Region Laterality Modality Ultrasound Narrative 11/04/2023 11:28 PM DISTILLERY MILLER HELPER ED Trauma eFAST Ultrasound Indications: Suspicion of [...] Primary Fall, initial encounter SDH (subdural hematoma) ([facility]) Subdural hemorrhage SAH (subarachnoid hemorrhage) ([facility]) Subarachnoid hemorrhage Traumatic brain injury with loss of consciousness, initial encounter ([facility]) documented in this encounter Admitting Diagnoses [...] Until Discontinued New Bag 11/05/2023 4:19 AM DISTILLERY MILLER HELPER 1,000 mg 400 mL /hr acetaminophen tablet 650 mg 650 mg, Oral, Q6H PRN, Starting on Sun11/05/23 at 0859, Until Sun11/16/23 at 1221, Mild Pain (Use First) Given 11/12/2023 2:59 AM DISTILLERY MILLER HELPER 650 mg Given 11/10/2023 3:29 PM DISTILLERY MILLER HELPER 650 mg Given 11/10/2023 9:23 AM DISTILLERY MILLER HELPER 650 mg allopurinol (ZYLOPRIM) half tablet 50 mg 50 mg, Oral, DAILY, First dose on Sun11/08/23 at 0930, Until Discontinued Given 11/16/2023 7:33 AM DISTILLERY MILLER HELPER 50 mg Given 11/15/2023 7:59 AM DISTILLERY MILLER HELPER 50 mg Given 11/14/2023 8:15 AM DISTILLERY MILLER HELPER 50 mg amLODIPine (NORVASC) tablet 5 mg 5 mg, Oral, DAILY, First dose on Sun11/12/23 at 1045, Until Discontinued Given 11/16/2023 7:33 AM DISTILLERY MILLER HELPER 5 mg Given 11/15/2023 8:00 AM DISTILLERY MILLER HELPER 5 mg Given 11/14/2023 8:14 AM DISTILLERY MILLER HELPER 5 mg bisacodyl (DULCOLAX) suppository 10 mg 10 mg, Rectal, ONE TIME-NOW, 1 dose, On Sun11/14/23 at 0910 Given 11/14/2023 10:10 AM DISTILLERY MILLER HELPER 10 mg carvedilol (COREG) tablet 12.5 mg 12.5 mg, Oral, BID, First dose on Sun11/05/23 at 2000, Until Discontinued Given 11/06/2023 8:03 PM DISTILLERY MILLER HELPER 12.5 mg Given 11/06/2023 8:50 AM DISTILLERY MILLER HELPER 12.5 mg Given 11/05/2023 8:04 PM DISTILLERY MILLER HELPER 12.5 mg carvedilol (COREG) tablet 12.5 mg 12.5 mg, Oral, BID, First dose (after last modification) on Sun11/07/23 at 2000, Until Discontinued Given 11/09/2023 9:04 AM DISTILLERY MILLER HELPER 12.5 mg Given 11/08/2023 7:48 PM DISTILLERY MILLER HELPER 12.5 mg Given 11/08/2023 7:53 AM DISTILLERY MILLER HELPER 12.5 mg carvedilol (COREG) tablet 6.25 mg 6.25 mg, Oral, BID, First dose (after last modification) on Sun11/09/23 at 2000, Until Discontinued Given 11/16/2023 7:34 AM DISTILLERY MILLER HELPER 6.25 mg Given 11/15/2023 9:11 PM DISTILLERY MILLER HELPER 6.25 mg Given 11/15/2023 8:00 AM DISTILLERY MILLER HELPER 6.25 mg chlorthaLIDONE (HYGROTON) tablet 25 mg 25 mg, Oral, DAILY, First dose (after last reorder) on Sun11/06/23 at 1100, Until Discontinued Given 11/06/2023 2:55 PM DISTILLERY MILLER HELPER 25 mg chlorthaLIDONE (HYGROTON) tablet 25 mg 25 mg, Oral, DAILY, First dose (after last modification) on Sun11/08/23 at 0800, Until Discontinued Given 11/16/2023 7:33 AM DISTILLERY MILLER HELPER 25 mg Given 11/15/2023 7:59 AM DISTILLERY MILLER HELPER 25 mg Given 11/14/2023 8:15 AM DISTILLERY MILLER HELPER 25 mg clevidipine (CLEVIPREX) 50 mg in 100 mL emulsion 0-21 mg/hr (0-42 mL/hr), Start infusion at (mg/hr): 2, Titrate to: SBP (mmHg), of: 140, Intravenous, CONTINUOUS, Starting on Sun11/04/23 at 2320, Until Sun11/06/23 at 0846 Rate changed 11/06/2023 5:34 AM DISTILLERY MILLER HELPER 8 mg/hr 16 mL/hr New Bag 11/06/2023 4:49 AM DISTILLERY MILLER HELPER 6 mg/hr 12 mL/hr Rate changed 11/06/2023 1:58 AM DISTILLERY MILLER HELPER 6 mg/hr 12 mL/hr clevidipine (CLEVIPREX) 50 mg in 100 mL emulsion 0-21 mg/hr (0-42 mL/hr), Start infusion at (mg/hr): 1, Titrate to: SBP (mmHg), of: 140, Intravenous, CONTINUOUS, Starting on Sun11/05/23 at 0120, Until Sun11/05/23 at 0246 New Bag 11/05/2023 1:46 AM DISTILLERY MILLER HELPER 21 mg/hr 42 mL/hr clevidipine (CLEVIPREX) 50 mg in 100 mL emulsion 0-21 mg/hr (0-42 mL/hr), Start infusion at (mg/hr): 2, Titrate to: SBP (mmHg), of: 160, Intravenous, CONTINUOUS, Starting on Sun11/06/23 at 0905, Until Sun11/07/23 at 0711 Rate changed 11/06/2023 4:58 PM DISTILLERY MILLER HELPER 2 mg/hr 4 mL/hr Restarted 11/06/2023 4:50 PM DISTILLERY MILLER HELPER 3 mg/hr 6 mL/hr Rate changed 11/06/2023 2:56 PM DISTILLERY MILLER HELPER 3 mg/hr 6 mL/hr DC MED REC [...] 0905, Until Discontinued Given 11/16/2023 7:33 AM DISTILLERY MILLER HELPER 250 mg Given 11/15/2023 8:58 PM DISTILLERY MILLER HELPER 250 mg Given 11/15/2023 7:59 AM DISTILLERY MILLER HELPER 250 mg enoxaparin (LOVENOX) 30 mg/0.3 mL injection 30 mg 30 mg, Subcutaneous, Q12H, First dose on Sun11/07/23 at 2000, Until Discontinued Given 11/15/2023 8:57 PM DISTILLERY MILLER HELPER 30 mg Abdominal Tissue Given 11/15/2023 8:02 AM DISTILLERY MILLER HELPER 30 mg Le ft Upper Arm Given 11/14/2023 8:20 PM DISTILLERY MILLER HELPER 30 mg Ri ght Upper Arm hydrALAZINE (APRESOLINE) 20 mg/mL injection 10 mg 10 mg, IV Push, Q4H PRN, Starting on Sun11/07/23 at 1004, Until Sun11/08/23 at 0906, SBP greater than 160 mmHg Given 11/07/2023 5:01 PM DISTILLERY MILLER HELPER 10 mg hydrALAZINE (APRESOLINE) 20 mg/mL injection 20 mg 20 mg, IV Push, ONE TIME-NOW, 1 dose, On Sun11/07/23 at 1005 Given 11/07/2023 10:29 AM DISTILLERY MILLER HELPER 20 mg insulin ASPART (NovoLOG) FlexPen Insulin [...] 0120, Until Discontinued Given 11/05/2023 5:53 PM DISTILLERY MILLER HELPER 1 UNITS Abdominal Tissue Given 11/05/2023 12:40 PM DISTILLERY MILLER HELPER 2 UNITS L eft Upper Arm Given 11/05/2023 8:00 AM DISTILLERY MILLER HELPER 1 UNITS Le ft Upper Arm insulin [...] 1630, Until Discontinued Given 11/13/2023 4:35 PM DISTILLERY MILLER HELPER 1 UNITS Right Upper Arm Given 11/13/2023 11:56 AM DISTILLERY MILLER HELPER 1 UNITS L eft Upper Quadrant Abdomen Given 11/09/2023 5:47 PM DISTILLERY MILLER HELPER 1,747 UNITS A bdominal Tissue insulin ASPART [...] Sun11/04/23 at 2310 Given 11/04/2023 11:07 PM DISTILLERY MILLER HELPER 120 mL Left Arm iohexol (OMNIPAQUE) 350 mg/mL injection IV Push, RAD ONE TIME AUTO ACKNOWLEDGE, 1 dose, On Sun11/05/23 at 0010 Given 11/05/2023 12:09 AM DISTILLERY MILLER HELPER 60 mL labetalol (NORMODYNE;TRANDATE) 5 mg/mL injection 10 mg 10 mg, IV Push, Q1H PRN, Starting on Sun11/07/23 at 1004, Until Sun11/08/23 at 0906, SBP greater than 160 mmHg Given 11/08/2023 5:53 AM DISTILLERY MILLER HELPER 10 mg Given 11/08/2023 4:16 AM DISTILLERY MILLER HELPER 10 mg Given 11/08/2023 1:27 AM DISTILLERY MILLER HELPER 10 mg lactated ringers infusion at 75 mL/hr, Intravenous, CONTINUOUS, Starting on Sun11/07/23 at 1055, Until Sun11/07/23 at 1625 Rate changed 11/07/2023 11:53 AM DISTILLERY MILLER HELPER 75 mL/hr New Bag 11/07/2023 11:23 AM DISTILLERY MILLER HELPER 110 mL/hr levETIRAcetam (KEPPRA) 750 mg in NaCl 0.9% 100 mL IVPB 750 mg, Intravenous, Q12H, Administer over 15 Minutes, First dose on Sun11/07/23 at 1400, Last dose on Sun11/12/23 at 0800 New Bag 11/08/2023 8:02 AM DISTILLERY MILLER HELPER 750 mg 430 mL/hr New Bag 11/07/2023 3:10 PM DISTILLERY MILLER HELPER 750 mg 430 mL/hr levETIRAcetam (KEPPRA) tablet 1,000 mg 1,000 mg, Oral, BID, 11 doses, First dose on Sun11/06/23 at 1999, Last dose on Sun11/11/23 at 1999 Given 11/06/2023 8:03 PM DISTILLERY MILLER HELPER 1,000 mg levETIRAcetam (KEPPRA) tablet 750 mg 750 mg, Oral, BID, 7 doses, First dose on Sun11/08/23 at 1999, Last dose on Sun11/11/23 at 1999 Given 11/11/2023 7:57 PM DISTILLERY MILLER HELPER 750 mg Given 11/11/2023 8:55 AM DISTILLERY MILLER HELPER 750 mg Given 11/10/2023 8:58 PM DISTILLERY MILLER HELPER 750 mg levETIRAcetam in NaCl (KEPPRA) 1000 mg/100 mL IVPB 1,000 mg 1,000 mg, Intravenous, Q12H, Administer over 15 Minutes, First dose on Sun11/05/23 at 0800, Last dose on Sun11/11/23 at 0800 New Bag 11/05/2023 8:04 PM DISTILLERY MILLER HELPER 1,000 mg New Bag 11/05/2023 8:08 AM DISTILLERY MILLER HELPER 1,000 mg levETIRAcetam in NaCl (KEPPRA) 1000 mg/100 mL IVPB 2,000 mg 2,000 mg, Intravenous, ONE TIME, Administer over 15 Minutes, On Sun11/04/23 at 2345 New Bag 11/04/2023 11:40 PM DISTILLERY MILLER HELPER 2,000 mg losartan (COZAAR) tablet 25 mg 25 mg, Oral, DAILY, First dose on Sun11/05/23 at 0900, Until Discontinued Given 11/06/2023 8:50 AM DISTILLERY MILLER HELPER 25 mg Given 11/05/2023 11:13 AM DISTILLERY MILLER HELPER 25 mg losartan (COZAAR) tablet 25 mg 25 mg, Oral, BID, First dose (after last modification) on Sun11/13/23 at 0800, Until Discontinued Given 11/16/2023 7:33 AM DISTILLERY MILLER HELPER 25 mg Given 11/15/2023 8:58 PM DISTILLERY MILLER HELPER 25 mg Given 11/15/2023 8:00 AM DISTILLERY MILLER HELPER 25 mg losartan (COZAAR) tablet 50 mg 50 mg, Oral, DAILY, First dose (after last modification) on Sun11/08/23 at 0800, Until Discontinued Given 11/12/2023 8:47 AM DISTILLERY MILLER HELPER 50 mg Given 11/11/2023 8:55 AM DISTILLERY MILLER HELPER 50 mg Given 11/10/2023 9:23 AM DISTILLERY MILLER HELPER 50 mg magnesium sulfate 2 g IVPB 2 g, Intravenous, ONE TIME, Administer over 1 Hours, On Sun11/05/23 at 0220 New Bag 11/05/2023 2:59 AM DISTILLERY MILLER HELPER 2 g 50 mL/hr magnesium sulfate 2 g IVPB 2 g, Intravenous, ONE TIME, Administer over 1 Hours, On Sun11/05/23 at 0620 New Bag 11/05/2023 8:08 AM DISTILLERY MILLER HELPER 2 g 50 mL/hr melatonin tablet 3 mg 3 mg, Oral, BEDTIME, First dose on Sun11/08/23 at 2000, Until Discontinued Given 11/15/2023 8:57 PM DISTILLERY MILLER HELPER 3 mg Given 11/14/2023 8:17 PM DISTILLERY MILLER HELPER 3 mg Given 11/13/2023 8:41 PM DISTILLERY MILLER HELPER 3 mg metFORMIN (GLUCOPHAGE) tablet 500 mg 500 mg, Oral, BID, First dose on Sun11/15/23 at 1010, Until Discontinued Given 11/16/2023 7:33 AM DISTILLERY MILLER HELPER 500 mg Given 11/15/2023 8:57 PM DISTILLERY MILLER HELPER 500 mg Given 11/15/2023 12:47 PM DISTILLERY MILLER HELPER 500 mg NaCl 0.9% infusion at 100 mL/hr, Intravenous, CONTINUOUS, Starting on Sun11/05/23 at 0120, Until Sun11/05/23 at 1705 Infusing 11/05/2023 12:00 PM DISTILLERY MILLER HELPER 100 mL/hr Infusing 11/05/2023 11:00 AM DISTILLERY MILLER HELPER 100 mL/hr Infusing 11/05/2023 10:00 AM DISTILLERY MILLER HELPER 100 mL/hr naproxen (NAPROSYN) tablet 500 mg 500 mg, Oral, BID, 19 doses, First dose on Sun11/08/23 at 0845, Last dose on Sun11/17/23 at 2000 Given 11/16/2023 7:33 AM DISTILLERY MILLER HELPER 500 mg Given 11/15/2023 8:57 PM DISTILLERY MILLER HELPER 500 mg Given 11/15/2023 7:58 AM DISTILLERY MILLER HELPER 500 mg OLANZapine (ZyPREXA ZYDIS) disintegrating tablet 2.5 mg 2.5 mg, Oral, BEDTIME, First dose (after last modification) on Sun11/15/23 at 0230, Until Discontinued Given 11/15/2023 9:01 PM DISTILLERY MILLER HELPER 2.5 mg Given 11/15/2023 3:27 AM DISTILLERY MILLER HELPER 2.5 mg OLANZapine (ZyPREXA) tablet 10 mg 10 mg, Oral, BEDTIME PRN, Starting on Sun11/07/23 at 0048, Until Sun11/07/23 at 0836, Agitation Given 11/07/2023 1:46 AM DISTILLERY MILLER HELPER 10 mg ondansetron (ZOFRAN ODT) disintegrating tablet 4 mg 4 mg, Oral, TID PRN, Starting on Sun11/06/23 at 1020, Until Sun11/16/23 at 1221, Nausea/Vomiting (Use First) ondansetron (ZOFRAN) 4 mg/2 mL injection 4 mg 4 mg, IV Push, ONE TIME, 1 dose, On Sun11/06/23 at 1025 Given 11/06/2023 10:31 AM DISTILLERY MILLER HELPER 4 mg ondansetron (ZOFRAN) 4 mg/2 mL injection 1 dose, Starting on Sun11/06/23 at 1024, Until Sun11/06/23 at 1031 polyethylene glycol 3350 (MIRALAX;GLYCOLAX) packet 17 g 17 g, Oral, DAILY, First dose on Sun11/06/23 at 0800, Until Discontinued Given 11/13/2023 8:24 AM DISTILLERY MILLER HELPER 17 g Given 11/12/2023 8:47 AM DISTILLERY MILLER HELPER 17 g Given 11/11/2023 8:56 AM DISTILLERY MILLER HELPER 17 g polyethylene glycol 3350 (MIRALAX;GLYCOLAX) packet 17 g 17 g, Oral, BID, First dose (after last modification) on Sun11/14/23 at 0800, Until Discontinued Given 11/15/2023 8:57 PM DISTILLERY MILLER HELPER 17 g Given 11/15/2023 8:00 AM DISTILLERY MILLER HELPER 17 g Given 11/14/2023 8:19 PM DISTILLERY MILLER HELPER 17 g potassium chloride (K-DUR) tablet 40 mEq 40 mEq, Oral, ONE TIME, 1 dose, On Sun11/09/23 at 0735 Given 11/09/2023 9:43 AM DISTILLERY MILLER HELPER 40 mEq potassium chloride (K-DUR) tablet 40 mEq 40 mEq, Oral, ONE TIME-NOW, 1 dose, On Sun11/13/23 at 1025 Given 11/13/2023 10:51 AM DISTILLERY MILLER HELPER 40 mEq potassium chloride (K-DUR) tablet 40 mEq 40 mEq, Oral, DAILY, First dose on Sun11/14/23 at 0800, Until Discontinued Given 11/16/2023 7:34 AM DISTILLERY MILLER HELPER 40 mEq Given 11/15/2023 7:58 AM DISTILLERY MILLER HELPER 40 mEq Given 11/14/2023 8:15 AM DISTILLERY MILLER HELPER 40 mEq potassium chloride (K-CANDIDO) 20 mEq 20 mEq, Oral, ONE TIME, 1 dose, On Sun11/05/23 at 1955 Given 11/05/2023 10:32 PM DISTILLERY MILLER HELPER 20 mEq potassium chloride (K-CANDIDO) powder 20 mEq 20 mEq, Oral, ONE TIME, 1 dose, On Sun11/13/23 at 1540 Given 11/13/2023 4:35 PM DISTILLERY MILLER HELPER 20 mEq potassium chloride IVPB 10 mEq 10 mEq, Intravenous, ONE TIME, Administer over 60 Minutes, On Sun11/04/23 at 2355 New Bag 11/05/2023 12:12 AM DISTILLERY MILLER HELPER 10 m Eq potassium chloride IVPB 10 mEq 10 mEq, Intravenous, Q1H, Administer over 60 Minutes, First dose on Sun11/05/23 at 0220, Last dose on Sun11/05/23 at 0320 New Bag 11/05/2023 4:19 AM DISTILLERY MILLER HELPER 10 mEq New Bag 11/05/2023 2:59 AM DISTILLERY MILLER HELPER 10 mEq potassium chloride IVPB 10 mEq 10 mEq, Intravenous, Q1H, Administer over 60 Minutes, First dose on Sun11/05/23 at 0620, Last dose on Sun11/05/23 at 0720 New Bag 11/05/2023 8:04 AM DISTILLERY MILLER HELPER 10 mEq rosuvastatin (CRESTOR) tablet 20 mg 20 mg, Oral, DAILY, First dose on Sun11/05/23 at 0900, Until Discontinued Given 11/16/2023 7:33 AM DISTILLERY MILLER HELPER 20 mg Given 11/15/2023 7:58 AM DISTILLERY MILLER HELPER 20 mg Given 11/14/2023 8:15 AM DISTILLERY MILLER HELPER 20 mg sennosides-docusate sodium (STOOL SOFTENER/LAXATIVE) 8.6-50 mg tablet 1 tablet 1 tablet, Oral, BID, First dose on Sun11/06/23 at 0800, Until Discontinued Given 11/07/2023 7:54 PM DISTILLERY MILLER HELPER 1 tablet Given 11/06/2023 8:03 PM DISTILLERY MILLER HELPER 1 tablet sennosides-docusate sodium (STOOL SOFTENER/LAXATIVE) 8.6-50 mg tablet 1 tablet 1 tablet, Oral, BID, First dose (after last modification) on Sun11/14/23 at 0800, Until Discontinued Given 11/16/2023 7:33 AM DISTILLERY MILLER HELPER 1 tablet Given 11/15/2023 8:57 PM DISTILLERY MILLER HELPER 1 tablet Given 11/15/2023 7:59 AM DISTILLERY MILLER HELPER 1 tablet venlafaxine (EFFEXOR XR) capsule 225 mg 225 mg, Oral, DAILY, First dose on Sun11/06/23 at 1000, Until Discontinued Given 11/16/2023 7:32 AM DISTILLERY MILLER HELPER 225 mg Given 11/15/2023 7:58 AM DISTILLERY MILLER HELPER 225 mg Given 11/14/2023 8:14 AM DISTILLERY MILLER HELPER 225 mg VTE Anti Xa Monitoring Does not apply, PROTOCOL, Starting on Sun11/07/23 at 1354, Until Sun11/16/23 at 1221 documented in this encounter Active and Recently Administered Medications Times are shown in DISTILLERY MILLER HELPER. Scheduled Medication Order 11/14/2023 11/15/2023 11/16/2023 allopurinol [...] Karolyn Jacob RN) 0733 (Given - Provider: oCrnell Solomon RN) melatonin tablet 3 mg 3 [...] Oral, BID, 19 doses, First dose on [place] 11/08/23 at 0845, Last dose on Sun11/17/23 [...] pm documented in this encounter Care Teams Senior Software Project Manager Relationship Specialty Start Date End Date Eloise Reeves DO [address] [place] [address] PCP - General Family Medicine 11/06/23 documented as of this encounter
--- OUTSIDE RECORDS SUMMARY | 2023-12-10 14:36 | XMS_ITS | Encounter Summary ---
Author Name Unknown Organization [facility] [place] [place] Address [address] [place] [address] Phone Care Team Providers Care Clerk Guide Name Role Phone Eloise Reeves DO Primary [...] Coronavirus/COVID-19? No / Unsure 11/04/2023 10:48 PM AXMINSTER WEAVER documented as of this encounter Plan of Treatment Not on file documented as of this encounter Procedures Procedure Name Priority Date/Time Associated Diagnosis Comments TELEMETRY STRIPS 11/08/2023 2:59 AM AXMINSTER WEAVER documented in this encounter Results * TELEMETRY STRIPS (11/08/2023 2:59 AM AXMINSTER WEAVER) Narrative 11/08/2023 2:59 AM AXMINSTER WEAVER Ordered by an unspecified provider. Provider Unknown RAD ECHO documented in this encounter Visit Diagnoses Not on filedocumented in this encounter Care Teams Clerk Guide Relationship Specialty Start Date End Date Eloise Reeves [address] [place] [address] PCP - General Family Medicine 11/06/23 documented as of this encounter
--- OUTSIDE RECORDS SUMMARY | 2023-12-10 14:36 | XMS_ITS | Encounter Summary ---
Author Name Unknown Organization [facility] Address [address] [place] [address] Phone Care Team Providers Care Special Forces Medical Sergeant Name Role Phone Eloise Reeves DO Primary [...] Coronavirus/COVID-19? No / Unsure 11/04/2023 10:48 PM DRAGGER documented as of this encounter Plan of Treatment Not on file documented as of this encounter Procedures Procedure Name Priority Date/Time Associated Diagnosis Comments TELEMETRY STRIPS 11/06/2023 4:28 PM DRAGGER documented in this encounter Results * TELEMETRY STRIPS (11/06/2023 4:28 PM DRAGGER) Narrative 11/06/2023 4:28 PM DRAGGER Ordered by an unspecified provider. Provider Unknown RAD ECHO documented in this encounter Visit Diagnoses Not on filedocumented in this encounter Care Teams Special Forces Medical Sergeant Relationship Specialty Start Date End Date Eloise Reeves DO [address] [place] [address] PCP - General Family Medicine 11/06/23 documented as of this encounter
--- OUTSIDE RECORDS SUMMARY | 2023-12-10 14:36 | XMS_ITS | Encounter Summary ---
Author Name Unknown Organization [facility] [place] Address [address] [place] [address] Phone Care Team Providers Care Flask Carrier Name Role Phone Eloise Reeves DO Primary [...] Coronavirus/COVID-19? No / Unsure 11/04/2023 10:48 PM WATER TAXI DRIVER documented as of this encounter Plan of Treatment Not on file documented as of this encounter Procedures Procedure Name Priority Date/Time Associated Diagnosis Comments TELEMETRY STRIPS 11/06/2023 1:52 AM WATER TAXI DRIVER documented in this encounter Results * TELEMETRY STRIPS (11/06/2023 1:52 AM WATER TAXI DRIVER) Narrative 11/06/2023 1:52 AM WATER TAXI DRIVER Ordered by an unspecified provider. Provider Unknown RAD ECHO documented in this encounter Visit Diagnoses Not on filedocumented in this encounter Care Teams Flask Carrier Relationship Specialty Start Date End Date Eloise Reeves [address] [place] [address] PCP - General Family Medicine 11/06/23 documented as of this encounter
--- OUTSIDE RECORDS SUMMARY | 2023-12-10 14:36 | XMS_ITS | Encounter Summary ---
Author Name Unknown Organization [facility] Address [address] [place] [address] Phone Care Team Providers Care Lumber Puller Name Role Phone Eloise Reeves DO Primary [...] Coronavirus/COVID-19? No / Unsure 11/04/2023 10:48 PM PASTEURIZER documented as of this encounter Plan of Treatment Not on file documented as of this encounter Procedures Procedure Name Priority Date/Time Associated Diagnosis Comments TELEMETRY STRIPS 11/08/2023 9:49 AM PASTEURIZER documented in this encounter Results * TELEMETRY STRIPS (11/08/2023 9:49 AM PASTEURIZER) Narrative 11/08/2023 9:49 AM PASTEURIZER Ordered by an unspecified provider. Provider Unknown RAD ECHO documented in this encounter Visit Diagnoses Not on filedocumented in this encounter Care Teams Lumber Puller Relationship Specialty Start Date End Date Eloise Reeves DO [address] [place] [address] PCP - General Family Medicine 11/06/23 documented as of this encounter
--- OUTSIDE RECORDS SUMMARY | 2023-12-10 14:36 | XMS_ITS | Encounter Summary ---
Author Name Unknown Organization [facility] [place] Address [address] [place] [id number] Phone Care Team Providers Care Salvage Machine Operator Name Role Phone Eloise Reeves DO Primary Care Provider [phone] Encounter Details Date Type Department Care Team [...] Coronavirus/COVID-19? No / Unsure 11/04/2023 10:48 PM ELECTRONIC TECHNOLOGIST documented as of this encounter Plan of Treatment Not on file documented as of this encounter Procedures Procedure Name Priority Date/Time Associated Diagnosis Comments TELEMETRY STRIPS 11/08/2023 7:31 PM ELECTRONIC TECHNOLOGIST documented in this encounter Results * TELEMETRY STRIPS (11/08/2023 7:31 PM ELECTRONIC TECHNOLOGIST) Narrative 11/08/2023 7:31 PM ELECTRONIC TECHNOLOGIST Ordered by an unspecified provider. Provider Unknown RAD ECHO documented in this encounter Visit Diagnoses Not on filedocumented in this encounter Care Teams Salvage Machine Operator Relationship Specialty Start Date End Date Eloise Reeves DO [address] [place] [address] PCP - General Family Medicine 11/06/23 documented as of this encounter
--- OUTSIDE RECORDS SUMMARY | 2023-12-10 14:36 | XMS_ITS | Encounter Summary ---
Author Name Unknown Organization [facility] Address [address] [place] [address] Phone Care Team Providers Care Acid Polymerization Operator Name Role Phone Eloise Reeves DO Primary Care Provider [phone] Encounter Details Date Type Department Care Team [...] Coronavirus/COVID-19? No / Unsure 11/04/2023 10:48 PM APPAREL MANAGER documented as of this encounter Plan of Treatment Not on file documented as of this encounter Procedures Procedure Name Priority Date/Time Associated Diagnosis Comments TELEMETRY STRIPS 11/09/2023 8:48 AM APPAREL MANAGER documented in this encounter Results * TELEMETRY STRIPS (11/09/2023 8:48 AM APPAREL MANAGER) Narrative 11/09/2023 8:48 AM APPAREL MANAGER Ordered by an unspecified provider. Provider Unknown RAD ECHO documented in this encounter Visit Diagnoses Not on filedocumented in this encounter Care Teams Acid Polymerization Operator Relationship Specialty Start Date End Date Eloise Reeves [address] [place] [address] PCP - General Family Medicine 11/06/23 documented as of this encounter
--- OUTSIDE RECORDS SUMMARY | 2023-12-10 14:36 | XMS_ITS | Encounter Summary ---
Author Name Unknown Organization [facility] [place] Address [address] [place] [address] Phone Care Team Providers Care Silverware Buffing Machine Operator Name Role Phone Eloise Reeves DO Primary Care Provider [phone] Encounter Details Date Type Department Care Team [...] Coronavirus/COVID-19? No / Unsure 11/04/2023 10:48 PM SLUBBER HAND documented as of this encounter Plan of Treatment Not on file documented as of this encounter Procedures Procedure Name Priority Date/Time Associated Diagnosis Comments TELEMETRY STRIPS 11/05/2023 9:25 AM SLUBBER HAND documented in this encounter Results * TELEMETRY STRIPS (11/05/2023 9:25 AM SLUBBER HAND) Narrative 11/05/2023 9:25 AM SLUBBER HAND Ordered by an unspecified provider. Provider Unknown RAD ECHO documented in this encounter Visit Diagnoses Not on filedocumented in this encounter Care Teams Silverware Buffing Machine Operator Relationship Specialty Start Date End Date Eloise Reeves DO [address] [place] [address] PCP - General Family Medicine 11/06/23 documented as of this encounter
--- OUTSIDE RECORDS SUMMARY | 2023-12-10 14:36 | XMS_ITS | Encounter Summary ---
Author Name Unknown Organization [facility] Address [address] [place] [address] Phone Care Team Providers Care Aboriginal Home School Liaison Officer Name Role Phone Eloise Reeves DO Primary [...] Coronavirus/COVID-19? No / Unsure 11/04/2023 10:48 PM APPLIED MARINE PHYSICS PROFESSOR documented as of this encounter Plan of Treatment Not on file documented as of this encounter Procedures Procedure Name Priority Date/Time Associated Diagnosis Comments TELEMETRY STRIPS 11/07/2023 1:07 AM APPLIED MARINE PHYSICS PROFESSOR documented in this encounter Results * TELEMETRY STRIPS (11/07/2023 1:07 AM APPLIED MARINE PHYSICS PROFESSOR) Narrative 11/07/2023 1:07 AM APPLIED MARINE PHYSICS PROFESSOR Ordered by an unspecified provider. Provider Unknown RAD ECHO documented in this encounter Visit Diagnoses Not on filedocumented in this encounter Care Teams Aboriginal Home School Liaison Officer Relationship Specialty Start Date End Date Eloise Reeves DO [address] [place] [address] PCP - General Family Medicine 11/06/23 documented as of this encounter
--- OUTSIDE RECORDS SUMMARY | 2023-12-10 14:36 | XMS_ITS | Encounter Summary ---
Author Name Unknown Organization [facility] Address [address] [place] [address] Phone Care Team Providers Care Resident Program Specialist Name Role Phone Unavailable Primary Care Provider [...] Coronavirus/COVID-19? No / Unsure 11/04/2023 10:48 PM INSTRUMENTATION ENGINEER documented as of this encounter Plan of Treatment Not on file documented as of this encounter Visit Diagnoses Not on filedocumented in this encounter
--- OUTSIDE RECORDS SUMMARY | 2023-12-10 14:36 | XMS_ITS | Encounter Summary ---
Author Name Unknown Organization [facility] Address [address] [place] [address] Phone Care Team Providers Care Sample Tester Name Role Phone Eloise Reeves DO Primary Care Provider [phone] Encounter Details Date Type Department Care Team [...] Coronavirus/COVID-19? No / Unsure 11/04/2023 10:48 PM FEED MILL SUPERVISOR documented as of this encounter Plan of Treatment Not on file documented as of this encounter Procedures Procedure Name Priority Date/Time Associated Diagnosis Comments TELEMETRY STRIPS 11/09/2023 1:21 AM FEED MILL SUPERVISOR documented in this encounter Results * TELEMETRY STRIPS (11/09/2023 1:21 AM FEED MILL SUPERVISOR) Narrative 11/09/2023 1:21 AM FEED MILL SUPERVISOR Ordered by an unspecified provider. Provider Unknown RAD ECHO documented in this encounter Visit Diagnoses Not on filedocumented in this encounter Care Teams Sample Tester Relationship Specialty Start Date End Date Eloise Reeves DO [address] [place] [address] PCP - General Family Medicine 11/06/23 documented as of this encounter
--- OUTSIDE RECORDS SUMMARY | 2023-12-10 14:36 | XMS_ITS | Encounter Summary ---
Author Name Unknown Organization [facility] Address [address] [place] [address] Phone Care Team Providers Care Telephone Clerks Supervisor Name Role Phone Eloise Reeves DO Primary [...] Coronavirus/COVID-19? No / Unsure 11/04/2023 10:48 PM SAND MIXER MACHINE documented as of this encounter Plan of Treatment Not on file documented as of this encounter Procedures Procedure Name Priority Date/Time Associated Diagnosis Comments TELEMETRY STRIPS 11/07/2023 9:29 AM SAND MIXER MACHINE documented in this encounter Results * TELEMETRY STRIPS (11/07/2023 9:29 AM SAND MIXER MACHINE) Narrative 11/07/2023 9:29 AM SAND MIXER MACHINE Ordered by an unspecified provider. Provider Unknown RAD ECHO documented in this encounter Visit Diagnoses Not on filedocumented in this encounter Care Teams Telephone Clerks Supervisor Relationship Specialty Start Date End Date Eloise Reeves DO [address] [place] [address] PCP - General Family Medicine 11/06/23 documented as of this encounter
--- OUTSIDE RECORDS SUMMARY | 2023-12-10 14:36 | XMS_ITS | Encounter Summary ---
Author Name Unknown Organization [facility] Address [address] [place] [address] Phone Care Team Providers Care Floor Refinisher Name Role Phone Eloise Reeves DO Primary [...] Coronavirus/COVID-19? No / Unsure 11/04/2023 10:48 PM PRESS BOX CUSTODIAN documented as of this encounter Plan of Treatment Not on file documented as of this encounter Procedures Procedure Name Priority Date/Time Associated Diagnosis Comments TELEMETRY STRIPS 11/06/2023 8:49 AM PRESS BOX CUSTODIAN documented in this encounter Results * TELEMETRY STRIPS (11/06/2023 8:49 AM PRESS BOX CUSTODIAN) Narrative 11/06/2023 8:49 AM PRESS BOX CUSTODIAN Ordered by an unspecified provider. Provider Unknown RAD ECHO documented in this encounter Visit Diagnoses Not on filedocumented in this encounter Care Teams Floor Refinisher Relationship Specialty Start Date End Date Eloise Reeves DO [address] [place] [address] PCP - General Family Medicine 11/06/23 documented as of this encounter
--- OUTSIDE RECORDS SUMMARY | 2023-12-10 14:36 | XMS_ITS | Encounter Summary ---
Author Name Unknown Organization [facility] Address [address] [place] [address] Phone Care Team Providers Care Winch Driver Name Role Phone Eloise Reeves DO Primary Care Provider [phone] Encounter Details Date Type Department Care Team [...] Coronavirus/COVID-19? No / Unsure 11/04/2023 10:48 PM CARBIDE TOOL MAKER documented as of this encounter Plan of Treatment Not on file documented as of this encounter Procedures Procedure Name Priority Date/Time Associated Diagnosis Comments TELEMETRY STRIPS 11/07/2023 7:31 PM CARBIDE TOOL MAKER documented in this encounter Results * TELEMETRY STRIPS (11/07/2023 7:31 PM CARBIDE TOOL MAKER) Narrative 11/07/2023 7:31 PM CARBIDE TOOL MAKER Ordered by an unspecified provider. Provider Unknown RAD ECHO documented in this encounter Visit Diagnoses Not on filedocumented in this encounter Care Teams Winch Driver Relationship Specialty Start Date End Date Eloise Reeves DO [address] [place] [address] PCP - General Family Medicine 11/06/23 documented as of this encounter
--- OUTSIDE RECORDS SUMMARY | 2023-12-10 14:37 | XMS_ITS | Clinical Summary ---
Author Name Unknown Organization [facility] [facility] Address [place], [place] [address] Care Team Providers Care Grading Clerk Name Role Phone Eloise Reeves Primary Care Provider [phone] Allergies Active Allergy Reactions Criticality Noted Date [...] PVCs 10/20/2014 Breast cancer, left Overview: in [place], had mastectomy. No chemo or radiation Encounters Date Type Department Care Team Description 12/10/2023 Telephone [facility] [address] [address] [place] [address] Eloise Reeves DO Concerns (12/12/23) 11/29/2023 Telephone [facility] [address] [place] [address] Eloise Reeves DO Appointment Request 11/22/2023 10:30 AM LABOR CUSTODIAN Office Visit [facility] [place] [address] [address] [place] LICSW Failed Appointment 11/02/2023 Telephone [facility] [place] [address] [address] Eloise Reeves DO Results 11/01/2023 1:05 PM LABOR CUSTODIAN Office Visit [facility] [place] [address] Eloise Reeves DO Follow Up 11/01/2023 Orders Only [facility] [place] [address] Eloies Reeves DO <No scans attached> 11/01/2023 Travel 10/16/2023 10:30 AM LABOR CUSTODIAN Office Visit [facility] [address] [address] [address] LICSW [facility] Visit 10/16/2023 Travel 10/10/2023 Telephone [facility] [place] [facility] [address] [place] [address] Twan Suresh MD Referral (Patient is ready to be scheduled. Referral consult to Neurology. ) 10/09/2023 1:05 PM LABOR CUSTODIAN Office Visit [facility] [place] [address] Eloise Reeves DO Follow Up; Tremors 10/09/2023 Telephone [facility] Iris [facility] [place] [address] García Driscoll MD Error-please disregard 10/09/2023 Travel 10/04/2023 10:30 AM LABOR CUSTODIAN Office Visit [facility] [address] [place] [address] [address] [facility] Failed Appointment 09/28/2023 Telephone [facility] [address] [place] [address] Eloise Reeves DO Results 09/27/2023 Orders Only [facility] [address] [facility] [place] [address] Eloise Reeves DO <No scans attached> 09/26/2023 1:55 PM LABOR CUSTODIAN Office Visit [facility] [address] [place] [address] Eloise Reeves DO Dizziness (1 day); Nausea (1 day); Diarrhea (1 day); Urinary Problem (frequency) 09/26/2023 Travel 09/25/2023 Telephone [facility] [address] [place] [address] Eloise Reeves DO Appointment Request (FOLLOW UP BEFORE 11-01-2023) 09/17/2023 10:30 AM LABOR CUSTODIAN Office Visit [facility] [address] [place] [address] [address], [facility] Visit 09/17/2023 Travel 09/13/2023 Telephone [facility] [place] [address] Eloise Reeves DO Results 09/13/2023 Orders Only [place] [address] [facility] [place] [address] Eloise Reeves DO <No scans attached> 09/12/2023 9:10 AM LABOR CUSTODIAN Office Visit [facility] [place] [address] Eloise Reeves DO Diabetes 09/12/2023 Travel from [...] Comments Blood Pressure 157/79 11/01/2023 11:36 AM LABOR CUSTODIAN Pulse 83 11/01/2023 11:36 AM LABOR CUSTODIAN Temperature 37.1 ??C (98.8 ??F) 04/04/2022 12:51 PM C DT Respiratory Rate 16 08/22/2022 9:54 AM CDT Oxygen Saturation 96% 11/01/2023 11:36 AM LABOR CUSTODIAN Inhaled Oxygen Concentration - - Weight 67.6 kg (149 lb) 11/01/2023 11:36 AM LABOR CUSTODIAN Height 142.8 cm (4' 8.22) 01/02/2023 1:43 PM CS T Body Mass Index 33.14 01/02/2023 1:43 PM LABOR CUSTODIAN Plan of Treatment Upcoming Encounters Date Type Department Care Team (Late st Contact Info) Description 12/12/2023 1:05 PM LABOR CUSTODIAN Office Visit [facility] [address] [place] [address] Eloise Reeves DO [address] [place] [address] Health Maintenance Due Date Last Done Comments [...] Diagnosis Comments CREATININE Routine 11/01/2023 12:37 PM LABOR CUSTODIAN Gout of left foot, unspecified cause, unspecified chronicity POTASSIUM Routine 11/01/2023 12:37 PM LABOR CUSTODIAN Hypokalemia URINALYSIS MICROSCOPIC Routine 09/26/2023 3:25 PM LABOR CUSTODIAN Urinary frequency UA W/ SEDIMENT EXAM REFLEXED PER CRITERIA Routine 09/26/2023 3:25 PM LABOR CUSTODIAN Urinary frequency BASIC METABOLIC PANEL Routine 09/26/2023 2:55 PM LABOR CUSTODIAN HTN (hypertension) HEMOGLOBIN Routine 09/26/2023 2:55 PM LABOR CUSTODIAN Anemia of unknown etiology SCAN CORRESP-LABORATORY RESULTS 09/12/2023 10:56 AM LABOR CUSTODIAN SCAN CORRESP-IMAGING 09/12/2023 10:56 AM LABOR CUSTODIAN SCAN CORRESP-IMAGING 09/12/2023 10:56 AM LABOR CUSTODIAN SCAN CORRESP-IMAGING 09/12/2023 10:56 AM LABOR CUSTODIAN VITAMIN B12 Add On 09/12/2023 9:30 AM LABOR CUSTODIAN Hallucinations BASIC METABOLIC PANEL Add On 09/12/2023 9:30 AM LABOR CUSTODIAN Hypertension IRON PLUS IRON BINDING CAP Add On 09/12/2023 9:30 AM LABOR CUSTODIAN Anemia of unknown etiology FERRITIN Add On 09/12/2023 9:30 AM LABOR CUSTODIAN Anemia of unknown etiology TSH WITH REFLEX Add On 09/12/2023 9:30 AM LABOR CUSTODIAN Hallucinations Other fatigue HEMOGLOBIN Routine 09/12/2023 9:30 AM LABOR CUSTODIAN Anemia of unknown etiology URIC ACID Routine 09/12/2023 9:30 AM LABOR CUSTODIAN History of gout POTASSIUM Routine 09/12/2023 9:30 AM LABOR CUSTODIAN Hypertension CREATININE Routine 09/12/2023 9:30 AM LABOR CUSTODIAN Hypertension HEMOGLOBIN A1C Routine 09/12/2023 9:30 AM LABOR CUSTODIAN Controlled type 2 diabetes mellitus without complication, without long-term current use of insulin (HC) from Last 3 Months Results * POTASSIUM (11/01/2023 12:37 PM LABOR CUSTODIAN) Only the most recent of2 resultswithin the time period is included. POTASSIUM 3.5 3.5 - 5.1 mmol/L 11/01/2023 9:42 PM LABOR CUSTODIAN [facility] Blood BLOOD SPECIMEN / Unknown Venipuncture / Unknown 11/01/2023 12:37 PM LABOR CUSTODIAN 11/01/2023 12:39 PM LABOR CUSTODIAN [employer] CHEMISTRY Performing Organization Address City/[facility] Co de Phone Number [facility] [address] [place] [address], * (ABNORMAL) CREATININE (11/01/2023 12:37 PM LABOR CUSTODIAN) Only the most recent of2 resultswithin the time period is included. eGFR 73(L) >90 mL/min/1.7 3m2 11/01/2023 9:42 PM LABOR CUSTODIAN [facility] Comment:As of 2022, eG FR is calculated by the CKD-EPI creatinine equation without race adjustment. ??eGFR can be influenced by muscle mass, exercise, and diet. ??The reported eGFR is an estimation only and is only applicable if the renal function is stable. CREATININE 0.81 0.50 - 0.90 mg/dL 11/01/2023 9:42 PM LABOR CUSTODIAN [facility] Blood BLOOD SPECIMEN / Unknown Venipuncture / Unknown 11/01/2023 12:37 PM LABOR CUSTODIAN 11/01/2023 12:39 PM LABOR CUSTODIAN [employer] CHEMISTRY Performing Organization Address City/[facility]/ZIP Co de Phone Number [facility] [address] [place] [address], [place] * URINALYSIS MICROSCOPIC (09/26/2023 3:25 PM LABOR CUSTODIAN) RBC 0-2 0-2, None Seen /HPF 09/26/2023 3:35 PM LABOR CUSTODIAN [facility] WBC 0-2 0-2, 3-5, None Seen /HPF 09/26/2023 3:35 PM LABOR CUSTODIAN [facility] BACTERIA Few None Seen, Rare, Few Bacteria/H PF 09/26/2023 3:35 PM LABOR CUSTODIAN [facility] EPITHELIAL CELLS Few None Seen, Few Epi/HPF 09/26/2023 3:35 PM LABOR CUSTODIAN [facility] Mucus Present 09/26/2023 3:35 PM LABOR CUSTODIAN [facility] HYALINE CASTS 0-2 0-2, 3-5 /LPF 09/26/2023 3:35 PM LABOR CUSTODIAN [facility] Urine URINE SPECIMEN / Unknown Non-Blood / Unknown 09/26/2023 3:25 PM LABOR CUSTODIAN 09/26/2023 3:25 PM LABOR CUSTODIAN Narrative [facility] - 09/26/2023 3:35 PM LABOR CUSTODIAN <1.5 ml. ??QNS for accurate microscopic exam. ??Microscopic done on unspun urine. Eloise Reeves DO URINE [facility] [address] [place] [address], [place] [phone] * (ABNORMAL) UA W/ SEDIMENT EXAM REFLEXED PER CRITERIA (09/26/2023 3:25 PM LABOR CUSTODIAN) COLOR Yellow Yellow Color 09/26/2023 3:33 PM LABOR CUSTODIAN [facility] CLARITY Clear Clear Clarity 09/26/2023 3:33 PM LABOR CUSTODIAN [facility] SPECIFIC GRAVITY,URINE >=1.030(A) 1.010, 1.015, 1.020, 1.025 09/26/2023 3:33 PM LABOR CUSTODIAN [facility] PH,URINE 5.5 6.0, 7.0, 8.0, 5.5, 6.5, 7.5, 8.5 09/26/2023 3:33 PM LABOR CUSTODIAN [facility] UROBILINOGEN,QU ALITATIVE Normal Normal EU/dl 09/26/2023 3:33 PM LABOR CUSTODIAN [facility] PROTEIN, URINE 30(A) Negative mg/dL 09/26/2023 3:33 PM LABOR CUSTODIAN [facility] GLUCOSE, URINE Negative Negative mg/dL 09/26/2023 3:33 PM LABOR CUSTODIAN [facility] KETONES,URINE 15(A) Negative mg/dL 09/26/2023 3:33 PM LABOR CUSTODIAN [facility] BILIRUBIN,URINE Abnormal(A) Negative 09/26/20 3:33 PM LABOR CUSTODIAN [facility] Comment:A variety of metabol ites and/or medications may result in a positive bilirubin result. Clinical correlation is recommended. OCCULT BLOOD,URINE Negative Negative 09/26/2023 3:33 PM LABOR CUSTODIAN [facility] NITRITE Negative Negative 09/26/2023 3:33 PM LABOR CUSTODIAN [facility] LEUKOCYTE ESTERASE Negative Negative 09/26/2023 3:33 PM LABOR CUSTODIAN [facility] Urine URINE SPECIMEN / Unknown Non-Blood / Unknown 09/26/2023 3:25 PM LABOR CUSTODIAN 09/26/2023 3:25 PM LABOR CUSTODIAN Eloise Reeves DO URINE [facility] [address] [place] [address], [place] [phone] * (ABNORMAL) HEMOGLOBIN (09/26/2023 2:55 PM LABOR CUSTODIAN) Only the most recent of2 resultswithin the time period is included. HEMOGLOBIN 10.9(L) 12.0 - 16.0 g/dL 09/26/2023 3:04 PM LABOR CUSTODIAN [facility] MCV 82 80 - 100 fL 09/26/2023 3:04 PM LABOR CUSTODIAN [facility] Blood BLOOD SPECIMEN / Unknown Venipuncture / Unknown 09/26/2023 2:55 PM LABOR CUSTODIAN 09/26/2023 2:56 PM LABOR CUSTODIAN Eloise Reeves DO HEMATOLOGY [facility] [address] [place] [address], [place] [phone] * (ABNORMAL) BASIC METABOLIC PANEL (09/26/2023 2:55 PM LABOR CUSTODIAN) Only the most recent of2 resultswithin the time period is included. SODIUM 140 136 - 145 mmol/L 09/26/2023 10:22 PM [facility] POTASSIUM 3.3(L) 3.5 - 5.1 mmol/L 09/26/2023 10:22 PM [facility] CHLORIDE 101 98 - 107 mmol/L 09/26/2023 10:22 PM [facility] CO2,TOTAL 26 22 - 29 mmol/L 09/26/2023 10:22 PM [facility] ANION GAP 13 5 - 18 09/26/2023 10:22 PM [facility] GLUCOSE 112(H) 70 - 99 mg/dL 09/26/2023 10:22 PM [facility] CALCIUM 9.7 8.8 - 10.2 mg/dL 09/26/2023 10:22 PM [facility] BUN 17 8 - 23 mg/dL 09/26/2023 10:22 PM [facility] CREATININE 1.08(H) 0.50 - 0.90 mg/dL 09/26/2023 10:22 PM [facility] BUN/CREAT RATIO 16 10 - 20 10:22 PM [facility] eGFR 52(L) >90 mL/min/1.7 3m2 09/26/2023 10:22 PM [facility] Comment:As of 2022, eG FR is calculated by the CKD-EPI creatinine equation without race adjustment. ??eGFR can be influenced by muscle mass, exercise, and diet. ??The reported eGFR is an estimation only and is only applicable if the renal function is stable. Blood BLOOD SPECIMEN / Unknown Venipuncture / Unknown 09/26/2023 2:55 PM LABOR CUSTODIAN 09/26/2023 2:56 PM LABOR CUSTODIAN Eloise Reeves DO CHEMISTRY Performing Organization Address City/[facility]/ZIP Co de Phone Number [facility] [address] [place] [address], [place] * SCAN CORRESP-LABORATORY RESULTS (09/12/2023 10:56 AM LABOR CUSTODIAN) Narrative 09/12/2023 10:56 AM LABOR CUSTODIAN Ordered by an unspecified provider. Other Clinical Staff OTHER * SCAN CORRESP-IMAGING (09/12/2023 10:56 AM LABOR CUSTODIAN) Only the most recent of3 resultswithin the time period is included. Anatomical Region Laterality Modality Other Narrative 09/12/2023 10:56 AM LABOR CUSTODIAN Ordered by an unspecified provider. Other Clinical Staff OTHER * TSH WITH REFLEX (09/12/2023 9:30 AM LABOR CUSTODIAN) TSH 0.72 0.27 - 4.20 uIU/mL 09/12/2023 6:43 PM LABOR CUSTODIAN [facility] Blood BLOOD SPECIMEN / Unknown Venipuncture / Unknown 09/12/2023 9:30 AM LABOR CUSTODIAN 09/12/2023 9:33 AM LABOR CUSTODIAN Narrative [facility] - 09/12/2023 6:43 PM LABOR CUSTODIAN In Adults, TSH values between 5.00 and 10.00 uIU/ml do not necessarily indicate the presence of Hypothyroidism. Correlation with clinical findings such as presence of goiter and/or Thyroperoxidase (TPO) Antibody may be helpful. For more information please refer to NIKKIE 2004; 291: 228-238. Eloise Reeves DO CHEMISTRY [facility] [address] [place] [address], [place] * (ABNORMAL) IRON PLUS IRON BINDING CAP (09/12/2023 9:30 AM LABOR CUSTODIAN) Pathologist [facility] IRON 35(L) 37 - 145 ug/dL 09/12/2023 6:43 PM LABOR CUSTODIAN [facility] UIBC (UNSATURATED) 277 112 - 347 ug/dL 09/12/2023 6:43 PM LABOR CUSTODIAN [facility] IRON BINDING CAPACITY 312 250 - 400 ug/dL 09/12/2023 6:43 PM LABOR CUSTODIAN [facility] IRON,% SATURATION 11(L) 14 - 50 % 09/12/2023 6:43 PM LABOR CUSTODIAN [facility] Blood BLOOD SPECIMEN / Unknown Venipuncture / Unknown 09/12/2023 9:30 AM LABOR CUSTODIAN 09/12/2023 9:33 AM LABOR CUSTODIAN Eloise Reeves DO CHEMISTRY Performing Organization Address [facility] Co de Phone Number [facility] [address] * (ABNORMAL) URIC ACID (09/12/2023 9:30 AM LABOR CUSTODIAN) URIC ACID 9.4(H) 2.4 - 5.7 mg/dL 09/12/2023 7:06 PM LABOR CUSTODIAN [facility] Blood BLOOD SPECIMEN / Unknown Venipuncture / Unknown 09/12/2023 9:30 AM LABOR CUSTODIAN 09/12/2023 9:33 AM LABOR CUSTODIAN Eloise Reeves DO CHEMISTRY Performing Organization Address [facility] de Phone Number [facility] [address] * (ABNORMAL) HEMOGLOBIN A1C MONITORING (POCT) (09/12/2023 9:30 AM LABOR CUSTODIAN) HEMOGLOBIN A1C MONITORING (POCT) 8.4(H) <=6.4 % 09/12/2023 10:00 AM LABOR CUSTODIAN [facility] Blood BLOOD SPECIMEN / Unknown Venipuncture / Unknown 09/12/2023 9:30 AM LABOR CUSTODIAN 09/12/2023 9:33 AM LABOR CUSTODIAN Narrative [facility] - 09/12/2023 10:00 AM LABOR CUSTODIAN ? (<=6.9%) ? Indicates good control ? (7.0% to 7.9%) ? Indicates fair control ? (>=8.0%) ? Indicates poor control ?? NOTE: ??These thresholds are guidelines and ?individual targets may vary. Falsely low levels may be seen with: Recent Transfusion, Recent Significant Blood Loss, Hemolytic Diseases, or Falsely elevated levels may be seen with: Untreated Anemias, Splenectomy ? Eloise Reeves DO CHEMISTRY Performing Organization Address City/[facility] Co de Phone Number [facility] [address] [place] [address], * FERRITIN (09/12/2023 9:30 AM LABOR CUSTODIAN) FERRITIN 26.8 15.0 - 150.0 ng/mL 09/12/2023 6:43 PM LABOR CUSTODIAN [facility] Blood BLOOD SPECIMEN / Unknown Venipuncture / Unknown 09/12/2023 9:30 AM LABOR CUSTODIAN 09/12/2023 9:33 AM LABOR CUSTODIAN Eloise Reeves DO CHEMISTRY Performing Organization Address [facility] Co de Phone Number [facility] [address] [place] [address], * (ABNORMAL) VITAMIN B12 (09/12/2023 9:30 AM LABOR CUSTODIAN) VITAMIN B12 1,253(H) 232 - 1,245 pg/mL 09/12/2023 6:43 PM LABOR CUSTODIAN [facility] Blood BLOOD SPECIMEN / Unknown Venipuncture / Unknown 09/12/2023 9:30 AM LABOR CUSTODIAN 09/12/2023 9:33 AM LABOR CUSTODIAN Narrative [facility] - 09/12/2023 6:43 PM LABOR CUSTODIAN Biotin supplements may cause clinically significant interference for this test assay. ??If interference is suspected, it is strongly recommended that biotin is discontinued for at least one week prior to retesting. Eloise Reeves DO CHEMISTRY Performing Organization Address City/[facility] Co de Phone Number [facility] [address] [place] [address] [place] [address], from Last 3 Months Care Teams Grading Clerk Relationship Specialty Start Date End Date Eloise Reeves DO [address] [place] [address] PCP - General Family Practice 05/13/20
[2023-12-10 15:00] LABS: Lactate* 2.3 mmol/L (0.5-1.9)
[2023-12-10 15:02] LABS: Basophils Absolute Auto 0.04 K/uL (0.00-0.30); Basophils Percent Auto 0.5 % (0.0-3.0); Eosinophils Absolute Auto 0.23 K/uL (0.00-0.50); Eosinophils Percent Auto 3.1 % (0.0-7.0); Hematocrit 34.8 % (33.0-51.0); Hemoglobin* 10.8 gm/dL (12.0-16.0); Immature Granulocytes Abs Auto 0.01 K/uL (0.00-0.30); Immature Granulocytes Pct Auto 0.1 %; Lymphocytes Absolute Auto 1.91 K/uL (0.90-2.90); Lymphocytes Percent Auto 25.6 % (20-44); Mean Corpuscular HGB Conc 31 gm/dL (32-36); Mean Corpuscular Hemoglobin 26 pg (26-34); Mean Corpuscular Volume 84 fL (80-100); Neutrophils Percent Auto 61.7 % (42.0-72.0); Platelet Count* 218 K/uL (140-440); RDW Coefficient of Variation % 17.2 % (11.5-15.5); Red Blood Count 4.15 m/uL (4.00-5.20); White Blood Count* 7.46 K/uL (4.50-11.00)
[2023-12-10 15:11] LABS: Albumin* 4.7 g/dL (3.3-5.0); Chloride* 106 mmol/L (96-114); Slide Review Reflex No; Sodium* 144 mmol/L (135-149)
[2023-12-10 15:13] LABS: Anion Gap 13 mEq/L (7-15); Bilirubin Total* 0.3 mg/dL (0.1-1.5); Carbon Dioxide* 25 mmol/L (20-32); Creatinine* 1.1 mg/dL (0.5-1.5); Estimated Glomerular Filt Rate 50 ml/min; Total Protein* 8.2 g/dL (6.0-8.3)
[2023-12-10 15:14] LABS: Alanine Aminotransferase* 31 U/L (4-35); Alkaline Phosphatase* 76 U/L (40-150); Aspartate Amino Transferase* 44 U/L (12-35); Blood Urea Nitrogen* 17 mg/dL (7-30); Calcium* 9.9 mg/dL (8.4-10.6); Glucose* 116 mg/dL (60-115)
[2023-12-10 15:38] LABS: PCR FLU A Negative PCR FLU A (Negative); PCR FLU B Negative PCR FLU B (Negative); PCR RSV Negative PCR RSV (Negative); SARS PCR* Negative SARS-CoV-2 (Negative)
[2023-12-10 16:09] LABS: Procalcitonin* 0.11 ng/mL (<0.50)
[2023-12-10 16:35] LABS: Potassium* 3.7 mmol/L (3.6-5.1)
[2023-12-10 17:18] LABS: C Reactive Protein* 0.7 mg/dL (0.5-1.0)
== END 2023-12-10 17:14 | disposition home or self-care (01) ==
PROVIDERS: Emergency Provider Family Medicine; PCP Family Medicine
DX: F41.9 Anxiety disorder, unspecified (principal); R25.1 Tremor, unspecified
CPT/HCPCS: 36415; 80048; 80053; 81001; 83605; 84145; 84484; 85025; 86140; 87631; 93005; 94761; 99284; A9270

== ENCOUNTER 2023-12-11 00:46 | Emergency (ER) | payer MEDICARE, SELFPAY ==
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
--- NOTE | 2023-12-11 01:27 | ED.NURSE ---
appointment for sunday at [address] arias written down and given to pt .
--- OUTSIDE RECORDS SUMMARY | 2023-12-11 01:27 | XMS_ITS | Clinical Summary ---
Author Name Unknown Organization [email or web address] Address [address] [place] [phone] Phone Care Team Providers Care Dairy Nutritionist Name Role Phone Eloise Reeves DO Primary Care Provider Source Comments [employer] is fully rolled out on [employer]. Last update 04/02/[email or web address] Allergies Active Allergy Reactions Criticality Noted Date [...] Department Care Team Description 11/27/2023 1:00 PM DRAPERY HEAD FORMER [facility] [address] [place] [address] [phone] Leidy Velazquez PA-C Mild traumatic brain injury, [...] Department [place] Unknown, Provider 11/04/2023 10:39 PM DRAPERY HEAD FORMER - 11/16/2023 9:19 AM DRAPERY HEAD FORMER [place] [facility] [place]Kimmie ro [address] [place] [address] Devin Dougherty MD Petrun, Branden, MD Lumbard, [...] Comments Blood Pressure 108/71 11/27/2023 12:54 PM DRAPERY HEAD FORMER Pulse 74 11/27/2023 12:54 PM DRAPERY HEAD FORMER Temperature 36.6 ??C (97.8 ??F) 11/16/2023 4:25 AM CS T Respiratory Rate 16 11/16/2023 4:25 AM DRAPERY HEAD FORMER Oxygen Saturation 90% 11/16/2023 4:25 AM DRAPERY HEAD FORMER Inhaled Oxygen Concentration - - Weight 61.6 kg (135 lb 12.8 oz) 024 12:54 PM DRAPERY HEAD FORMER Height 147.3 cm (4' 10) 11/05/2023 12: 03 AM DRAPERY HEAD FORMER Body Mass Index 28.38 11/05/2023 12:03 AM DRAPERY HEAD FORMER Plan of Treatment Health Maintenance Due Date [...] BASIC METABOLIC (BMP) Routine 11/16/2023 7:22 AM DRAPERY HEAD FORMER POC GLUCOSE Routine 11/16/2023 6:58 AM DRAPERY HEAD FORMER POC GLUCOSE Routine 11/15/2023 9:15 PM DRAPERY HEAD FORMER POC GLUCOSE Routine 11/15/2023 4:09 PM DRAPERY HEAD FORMER POC GLUCOSE Routine 11/15/2023 12:46 PM DRAPERY HEAD FORMER PANEL BASIC METABOLIC (BMP) Routine 11/15/2023 7:39 AM DRAPERY HEAD FORMER POC GLUCOSE Routine 11/15/2023 6:11 AM DRAPERY HEAD FORMER POC GLUCOSE Routine 11/14/2023 9:02 PM DRAPERY HEAD FORMER POC GLUCOSE Routine 11/14/2023 4:21 PM DRAPERY HEAD FORMER POC GLUCOSE Routine 11/14/2023 12:19 PM DRAPERY HEAD FORMER PANEL BASIC METABOLIC (BMP) Routine 11/14/2023 8:59 AM DRAPERY HEAD FORMER POC GLUCOSE Routine 11/14/2023 8:11 AM DRAPERY HEAD FORMER POC GLUCOSE Routine 11/13/2023 9:15 PM DRAPERY HEAD FORMER POC GLUCOSE Routine 11/13/2023 4:03 PM DRAPERY HEAD FORMER POC GLUCOSE Routine 11/13/2023 11:21 AM DRAPERY HEAD FORMER PANEL BASIC METABOLIC (BMP) Routine 11/13/2023 6:41 AM DRAPERY HEAD FORMER POC GLUCOSE Routine 11/13/2023 6:31 AM DRAPERY HEAD FORMER POC GLUCOSE Routine 11/12/2023 9:21 PM DRAPERY HEAD FORMER POC GLUCOSE Routine 11/12/2023 4:12 PM DRAPERY HEAD FORMER PANEL BASIC METABOLIC (BMP) Timed 11/12/2023 1:01 PM DRAPERY HEAD FORMER POC GLUCOSE Routine 11/12/2023 12:14 PM DRAPERY HEAD FORMER POC GLUCOSE Routine 11/12/2023 6:09 AM DRAPERY HEAD FORMER POC GLUCOSE Routine 11/11/2023 8:48 PM DRAPERY HEAD FORMER POC GLUCOSE Routine 11/11/2023 4:11 PM DRAPERY HEAD FORMER POC GLUCOSE Routine 11/11/2023 11:47 AM DRAPERY HEAD FORMER PHOSPHORUS Routine 11/11/2023 6:09 AM DRAPERY HEAD FORMER PANEL BASIC METABOLIC (BMP) Routine 11/11/2023 6:09 AM DRAPERY HEAD FORMER MAGNESIUM Routine 11/11/2023 6:09 AM DRAPERY HEAD FORMER TC LAB BLOOD DRAW BY VENIPUNCTURE Routine 11/11/2023 6:09 AM DRAPERY HEAD FORMER POC GLUCOSE Routine 11/10/2023 8:58 PM DRAPERY HEAD FORMER POC GLUCOSE Routine 11/10/2023 4:16 PM DRAPERY HEAD FORMER POC GLUCOSE Routine 11/10/2023 11:15 AM DRAPERY HEAD FORMER PHOSPHORUS Routine 11/10/2023 6:17 AM DRAPERY HEAD FORMER PANEL BASIC METABOLIC (BMP) Routine 11/10/2023 6:17 AM DRAPERY HEAD FORMER MAGNESIUM Routine 11/10/2023 6:17 AM DRAPERY HEAD FORMER PC LAB CBC/PLT Routine 11/10/2023 6:17 AM DRAPERY HEAD FORMER POC GLUCOSE Routine 11/09/2023 9:41 PM DRAPERY HEAD FORMER POC GLUCOSE Routine 11/09/2023 3:58 PM DRAPERY HEAD FORMER ANTI XA ASSAY LMW HEPARIN Timed 11/09/2023 2:18 PM DRAPERY HEAD FORMER POC GLUCOSE Routine 11/09/2023 11:28 AM DRAPERY HEAD FORMER XR FOOT RIGHT 3 V AP/OBL/LAT* Routine 11/09/2023 10:36 AM DRAPERY HEAD FORMER TELEMETRY STRIPS 11/09/2023 8:48 AM DRAPERY HEAD FORMER POC GLUCOSE Routine 11/09/2023 5:46 AM DRAPERY HEAD FORMER PC VALPROIC ACID LEVEL DEPAHOTE Routine 11/09/2023 5:41 AM DRAPERY HEAD FORMER PHOSPHORUS Routine 11/09/2023 5:41 AM DRAPERY HEAD FORMER PANEL BASIC METABOLIC (BMP) Routine 11/09/2023 5:41 AM DRAPERY HEAD FORMER MAGNESIUM Routine 11/09/2023 5:41 AM DRAPERY HEAD FORMER PC LAB CBC/PLT Routine 11/09/2023 5:41 AM DRAPERY HEAD FORMER TELEMETRY STRIPS 11/09/2023 1:21 AM DRAPERY HEAD FORMER POC GLUCOSE Routine 11/08/2023 8:40 PM DRAPERY HEAD FORMER TELEMETRY STRIPS 11/08/2023 7:31 PM DRAPERY HEAD FORMER PHOSPHORUS Routine 11/08/2023 4:20 PM DRAPERY HEAD FORMER MAGNESIUM Routine 11/08/2023 4:20 PM DRAPERY HEAD FORMER PANEL BASIC METABOLIC (BMP) Routine 11/08/2023 4:20 PM DRAPERY HEAD FORMER TC LAB BLOOD DRAW BY VENIPUNCTURE Routine 11/08/2023 4:20 PM DRAPERY HEAD FORMER POC GLUCOSE Routine 11/08/2023 3:56 PM DRAPERY HEAD FORMER POC GLUCOSE Routine 11/08/2023 11:03 AM DRAPERY HEAD FORMER TELEMETRY STRIPS 11/08/2023 9:49 AM DRAPERY HEAD FORMER XR CHEST 1 VIEW AP OR PA* Routine 11/08/2023 6:30 AM DRAPERY HEAD FORMER POC GLUCOSE Routine 11/08/2023 6:22 AM DRAPERY HEAD FORMER TELEMETRY STRIPS 11/08/2023 2:59 AM DRAPERY HEAD FORMER POC GLUCOSE Routine 11/07/2023 9:34 PM DRAPERY HEAD FORMER TELEMETRY STRIPS 11/07/2023 7:31 PM DRAPERY HEAD FORMER POC GLUCOSE Routine 11/07/2023 4:06 PM DRAPERY HEAD FORMER POC GLUCOSE Routine 11/07/2023 11:45 AM DRAPERY HEAD FORMER XR CHEST 2 VIEWS PA + LAT* Routine 11/07/2023 10:07 AM DRAPERY HEAD FORMER TELEMETRY STRIPS 11/07/2023 9:29 AM DRAPERY HEAD FORMER PC PROCALCITONIN (PCT) Routine 8:34 AM DRAPERY HEAD FORMER PC LAB CBC/PLT Routine 11/07/2023 8:34 AM DRAPERY HEAD FORMER PANEL BASIC METABOLIC (BMP) Routine 11/07/2023 8:34 AM DRAPERY HEAD FORMER MAGNESIUM Routine 11/07/2023 8:34 AM DRAPERY HEAD FORMER PHOSPHORUS Routine 11/07/2023 8:34 AM DRAPERY HEAD FORMER POC GLUCOSE Routine 11/07/2023 5:45 AM DRAPERY HEAD FORMER TELEMETRY STRIPS 11/07/2023 1:07 AM DRAPERY HEAD FORMER POC GLUCOSE Routine 11/06/2023 9:21 PM DRAPERY HEAD FORMER TELEMETRY STRIPS 11/06/2023 4:28 PM DRAPERY HEAD FORMER PC GASES,BLOOD,ANY COMB OF PH,PCD2,PO2,CO2,HCO2 Routine 11/06/2023 1:06 PM DRAPERY HEAD FORMER MAGNESIUM Timed 11/06/2023 1:06 PM DRAPERY HEAD FORMER PHOSPHORUS Timed 11/06/2023 1:06 PM DRAPERY HEAD FORMER PANEL BASIC METABOLIC (BMP) Timed 11/06/2023 1:06 PM DRAPERY HEAD FORMER PC LAB CBC/PLT Timed 11/06/2023 1:06 PM DRAPERY HEAD FORMER POC GLUCOSE Routine 11/06/2023 1:04 PM DRAPERY HEAD FORMER POC GLUCOSE Routine 11/06/2023 10:49 AM DRAPERY HEAD FORMER TELEMETRY STRIPS 11/06/2023 8:49 AM DRAPERY HEAD FORMER PC LAB GLYCOSYLATED HGB Routine 11/06/2023 6:31 AM DRAPERY HEAD FORMER PROTHROMBIN (PT) & INR Timed 6:31 AM DRAPERY HEAD FORMER PC PHOSPHORUS INORGANIC(PHOSPHATE) Routine 11/06/2023 6:31 AM DRAPERY HEAD FORMER PC MAGNESIUM, SERUM Routine 11/06/2023 6 :31 AM DRAPERY HEAD FORMER PC LAB CBC/PLT Routine 11/06/2023 6:31 AM DRAPERY HEAD FORMER TC LAB BLOOD DRAW BY VENIPUNCTURE Routine 11/06/2023 6:31 AM DRAPERY HEAD FORMER POC GLUCOSE Routine 11/06/2023 5:39 AM DRAPERY HEAD FORMER TELEMETRY STRIPS 11/06/2023 1:52 AM DRAPERY HEAD FORMER POC GLUCOSE Routine 11/05/2023 4:54 PM DRAPERY HEAD FORMER MAGNESIUM Routine 11/05/2023 4:48 PM DRAPERY HEAD FORMER POTASSIUM Routine 11/05/2023 4:[address] HEAD NO IV CONTRAST Timed 11:44 AM DRAPERY HEAD FORMER POC GLUCOSE Routine 11/05/2023 11:11 AM DRAPERY HEAD FORMER TELEMETRY STRIPS 11/05/2023 9:25 AM DRAPERY HEAD FORMER EKG ADULT (12-LEAD) Routine 11/05/2023 6 :38 AM DRAPERY HEAD FORMER POC GLUCOSE Routine 11/05/2023 6:[address] HEAD NO IV CONTRAST Timed 4:54 AM DRAPERY HEAD FORMER PROTHROMBIN (PT) & INR Timed 4:27 AM DRAPERY HEAD FORMER PC PHOSPHORUS INORGANIC(PHOSPHATE) Routine 11/05/2023 4:27 AM DRAPERY HEAD FORMER PC MAGNESIUM, SERUM Routine 11/05/2023 4 :27 AM DRAPERY HEAD FORMER PC GASES,BLOOD,ANY COMB OF PH,PCD2,PO2,CO2,HCO2 Routine 11/05/2023 4:27 AM DRAPERY HEAD FORMER PC LAB CBC/PLT Routine 11/05/2023 4:27 AM DRAPERY HEAD FORMER TC LAB BLOOD DRAW BY VENIPUNCTURE Routine 11/05/2023 4:27 AM DRAPERY HEAD FORMER PC TROPONIN QUANTITATIVE Timed 11/05/2023 4:27 AM DRAPERY HEAD FORMER PC TROPONIN QUANTITATIVE Timed 11/05/2023 2:58 AM DRAPERY HEAD FORMER CK, TOTAL STAT 11/05/2023 1:32 AM DRAPERY HEAD FORMER FIBRINOGEN STAT 11/05/2023 1:32 AM DRAPERY HEAD FORMER PC LAB PTT STAT 11/05/2023 1:32 AM DRAPERY HEAD FORMER PANEL HEPATIC FUNCTION STAT 1:32 AM DRAPERY HEAD FORMER PC LAB CBC/PLT STAT 11/05/2023 1:32 AM DRAPERY HEAD FORMER PANEL BASIC METABOLIC (BMP) STAT 11/05/2023 1:32 AM DRAPERY HEAD FORMER MAGNESIUM STAT 11/05/2023 1:32 AM DRAPERY HEAD FORMER PHOSPHORUS STAT 11/05/2023 1:32 AM DRAPERY HEAD FORMER PROTHROMBIN (PT) & INR STAT 1:32 AM DRAPERY HEAD FORMER PC IONIZED,CALCIUM STAT 11/05/2023 1: 18 AM DRAPERY HEAD FORMER PC LACTATE (LACTIC ACID) STAT 11/05/2023 1:18 AM DRAPERY HEAD FORMER PC GASES,BLOOD,ANY COMB OF PH,PCD2,PO2,CO2,HCO2 STAT 11/05/2023 1:18 AM DRAPERY HEAD FORMER PC TROPONIN QUANTITATIVE Timed 11/05/2023 1:[address] HEAD-NECK - ANGIO - W/IV CON STAT 11/05/2023 12:09 AM DRAPERY HEAD FORMER PC LAB COMPLETE UA STAT 11/04/2023 11 :55 PM DRAPERY HEAD FORMER PF INSERT CATH,ART,PERCUT,SANTA ERM Routine 11/04/2023 11:43 PM DRAPERY HEAD FORMER ED EKG (12-LEAD) Routine 11/04/2023 11:2 [address] SPINE LUMBAR NO IV CON STAT 11/04/2023 11:[address] SPINE THORACIC NO IV CON STAT 11/04/2023 11:[address] CHEST/ABD/PELVIS W/IV CONT STAT 11/04/2023 11:[address] SPINE CERVICAL NO IV CON STAT 11/04/2023 11:[address] HEAD NO IV CONTRAST STAT 11:05 PM DRAPERY HEAD FORMER XR CHEST 1 VIEW AP OR PA* STAT 11/04/2023 10:57 PM DRAPERY HEAD FORMER TC LAB ER STAT TOTAL HGB STAT 11/04/2023 10:48 PM DRAPERY HEAD FORMER PC ELECTROLYTES PANEL STAT 11/04/2023 10:48 PM DRAPERY HEAD FORMER PC HEPARIN ASSAY STAT 11/04/2023 10:4 5 PM DRAPERY HEAD FORMER EXTRA TUBE - SST Routine 11/04/2023 10:4 5 PM DRAPERY HEAD FORMER TC LAB BLOOD DRAW BY VENIPUNCTURE Routine 11/04/2023 10:45 PM DRAPERY HEAD FORMER PC TROPONIN QUANTITATIVE STAT 11/04/2023 10:45 PM DRAPERY HEAD FORMER PC LAB PTT STAT 11/04/2023 10:45 PM DRAPERY HEAD FORMER PC LAB ED INR STAT 11/04/2023 10:45 PM DRAPERY HEAD FORMER PRECAUTIONARY TUBE STAT 11/04/2023 10 :45 PM DRAPERY HEAD FORMER PC LACTATE (LACTIC ACID) STAT 11/04/2023 10:45 PM DRAPERY HEAD FORMER FIBRINOGEN STAT 11/04/2023 10:45 PM DRAPERY HEAD FORMER PC LAB CBC W/DIFF & PLT STAT 11/04/2023 10:45 PM DRAPERY HEAD FORMER PC GASES,BLOOD,ANY COMB OF PH,PCD2,PO2,CO2,HCO2 STAT 11/04/2023 10:45 PM DRAPERY HEAD FORMER ED US CRITICAL CARE STAT 11/04/2023 1 0:40 PM DRAPERY HEAD FORMER PANEL LIPID Routine 10/10/2021 11:08 AM DRAPERY HEAD FORMER from Last 3 Months or Most Recently Relevant to Health Maintenance Results * (ABNORMAL) PANEL BASIC METABOLIC (BMP) (11/16/2023 7:22 AM DRAPERY HEAD FORMER) Only the most recent of12 resultswithin the time period is included. Sodium 143 135 - 148 mEq/L [facility] Potassium 3.9 3.5 - 5.3 mEq/L [facility] Chloride 105 92 - 108 mEq/L [facility] CO2 27 22 - 30 mEq/L [facility] AnGap 11 8 - 16 mEq/L [facility] Glucose 87 70 - 100 mg/dL [facility] BUN 23 8 - 23 mg/dL [facility] Creatinine 1.19(H) 0.50 - 1.00 mg/dL [facility] Calcium 9.4 8.8 - 10.2 mg/dL [facility] eGFR (2020 CKD-EPI) 46(L) >=60 ml/min/1.7 3m2 [facility] Comment: The estimated glomerular filtration rate (eGFR) was calculated using the CKD-EPI 2020 creatinine equation, which does not include race as a factor. This equation is validated in individuals 18 years of age and older, and eGFR is normalized to a body surface area of 1.73m^2. Blood 11/16/2023 7:22 AM DRAPERY HEAD FORMER 11/16/2023 7:43 AM DRAPERY HEAD FORMER Jesusita Aiken SUPERVISOR PHOSPHORIC ACID, AGRI BUSINESS AGENT LABORATO RY Performing Organization Address City/[facility]/[place] [address] * POC GLUCOSE (11/16/2023 6:58 AM DRAPERY HEAD FORMER) Only the most recent of42 resultswithin the time period is included. POC Glucose 84 70 - 100 mg/dL [facility] Blood 11/16/2023 6:58 AM DRAPERY HEAD FORMER Devin Dougherty MD LABORATORY Performing Organization Address City/[facility] Co de Phone Number [facility] [address] [place] [address], * PHOSPHORUS (11/11/2023 6:09 AM DRAPERY HEAD FORMER) Only the most recent of7 resultswithin the time period is included. Phosphorus 3.5 2.5 - 4.5 mg/dL [facility] Blood 11/11/2023 6:09 AM DRAPERY HEAD FORMER 11/11/2023 6:36 AM DRAPERY HEAD FORMER Quinn Covarrubias MD LABORATORY Performing Organization Address City/[facility]/ZIP Co de Phone Number [facility] [address] [address] * MAGNESIUM (11/11/2023 6:09 AM DRAPERY HEAD FORMER) Only the most recent of8 resultswithin the time period is included. Magnesium 2.2 1.6 - 2.4 mg/dL [facility] Blood 11/11/2023 6:09 AM DRAPERY HEAD FORMER 11/11/2023 6:36 AM DRAPERY HEAD FORMER Quinn Covarrubias MD LABORATORY Performing Organization Address [facility] Co de Phone Number [facility] [address] [address] * (ABNORMAL) CBC WITH PLATELET (11/11/2023 6:09 AM DRAPERY HEAD FORMER) Only the most recent of7 resultswithin the time period is included. [facility] WBC 5.60 4.00 - 10.00 k/cmm [facility] RBC 3.80(L) 3.90 - 5.20 m/cmm [facility] Hgb 9.5(L) 11.5 - 15.7 g/dL [facility] Hematocrit 31.4(L) 34.0 - 45.0 % [facility] MCV 82.6 80.0 - 100.0 fL [facility] MCH 25.0 25.0 - 32.0 pg [facility] MCHC 30.3(L) 31.0 - 36.0 g/dL [facility] RDW 16.1(H) 11.5 - 14.5 % [facility] Plt 275 150 - 400 k/cmm [facility] MPV 11.8 6.5 - 12.5 fL [facility] Blood 11/11/2023 6:09 AM DRAPERY HEAD FORMER 11/11/2023 6:36 AM DRAPERY HEAD FORMER Quinn Covarrubias MD LABORATORY Performing Organization Address [facility] Co de Phone Number [facility] [address] [address] * ANTI XA ASSAY LMW HEPARIN (11/09/2023 2:18 PM DRAPERY HEAD FORMER) [facility] Anti XA LMW 0.32 IU/mL [facility] Comment: Anti Xa Assay LMW Heparin Therapeutic Ranges: 0.4-1.1 IU/mL for twice daily 1.0-2.0 IU/mL for once daily Blood 11/09/2023 2:18 PM DRAPERY HEAD FORMER 11/09/2023 2:29 PM DRAPERY HEAD FORMER Quinn Covarrubias MD LABORATORY [facility] [address] [address] * XR FOOT RIGHT 3 V AP/OBL/LAT* (11/09/2023 10:36 AM DRAPERY HEAD FORMER) Anatomical Region Laterality Modality Foot Computed Radiogr aphy 11/09/2023 10:4 7 AM DRAPERY HEAD FORMER Impressions 11/09/2023 10:50 AM DRAPERY HEAD FORMER Impression: No acute osseous abnormality. Generalized osteopenia. Reading Radiologist: Angela Camp Narrative 11/09/2023 10:50 AM DRAPERY HEAD FORMER Technique: XR FOOT RIGHT 3 V AP/OBL/LAT* [...] Reading Radiologist: Angela Camp Jesusita Aiken APRN, AGRI BUSINESS AGENT RAD XRAY * TELEMETRY STRIPS (11/09/2023 8:48 AM DRAPERY HEAD FORMER) Only the most recent of12 resultswithin the time period is included. Narrative 11/09/2023 8:48 AM DRAPERY HEAD FORMER Ordered by an unspecified provider. Provider Unknown RAD ECHO * (ABNORMAL) VALPROATE (DEPAKOTE) LEVEL (11/09/2023 5:41 AM DRAPERY HEAD FORMER) Valproate 31.8(L) 50.0 - 100.0 mcg/mL [facility] Blood 11/09/2023 5:41 AM DRAPERY HEAD FORMER 11/09/2023 8:19 AM DRAPERY HEAD FORMER Quinn Covarrubias MD LABORATORY [facility] [address] [place] [address] * XR CHEST 1 VIEW AP OR PA* (11/08/2023 6:30 AM DRAPERY HEAD FORMER) Only the most recent of2 resultswithin the time period is included. Anatomical Region Laterality Modality Chest Computed Radiogr aphy 11/08/2023 6:56 AM DRAPERY HEAD FORMER Impressions 11/08/2023 7:24 AM DRAPERY HEAD FORMER Impression: Stable chest. I have personally reviewed the image(s) and initial interpretation, and I agree with the findings as documented by the resident/fellow. Reading Radiologist: Ronal Hidalgo Reading Resident: Laith Berkowitz Narrative 11/08/2023 7:24 AM DRAPERY HEAD FORMER Technique: XR CHEST 1 VIEW AP OR [...] VIEWS PA + LAT* (11/07/2023 10:07 AM DRAPERY HEAD FORMER) Anatomical Region Laterality Modality Chest Computed Radiogr aphy 11/07/2023 10:0 9 AM DRAPERY HEAD FORMER Impressions 11/07/2023 10:10 AM DRAPERY HEAD FORMER Impression: New left basilar opacities with small effusion concerning for developing infection. Reading Radiologist: Phil Contreras Narrative 11/07/2023 10:10 AM DRAPERY HEAD FORMER Technique: XR CHEST 2 VIEWS PA + [...] RAD XRAY * PROCALCITONIN (11/07/2023 8:34 AM DRAPERY HEAD FORMER) Procalcitonin 0.12 ng/mL [facility] Comment: Results <0.50 ng/mL represent a low risk of severe sepsis and/or septic shock. Results >2.0 ng/mL represent a high risk of severe sepsis and/or septic shock. Blood 11/07/2023 8:34 AM DRAPERY HEAD FORMER 11/07/2023 8:40 AM DRAPERY HEAD FORMER Quinn Covarrubias MD LABORATORY [facility] [address] [address] * (ABNORMAL) BLOOD GASES (11/06/2023 1:06 PM DRAPERY HEAD FORMER) Only the most recent of3 resultswithin the time period is included. PH Jalen 7.36 7.32 - 7.42 [facility] PCO2 Jalen 48 41 - 51 mmHG [facility] PO2 Jalen 86(H) 25 - 40 mmHG [facility] Bicarb Jalen 26 24 - 28 mEq/L [facility] O2 Sat Jalen 96 % [facility] Base Exc Jalen 1.0 -10.0 - 2.0 mEq/L [facility] Blood Venous 11/06/2023 1:06 PM DRAPERY HEAD FORMER 11/06/2023 1:10 PM DRAPERY HEAD FORMER Narrative [facility] - 11/06/2023 1:16 PM DRAPERY HEAD FORMER Draw on Room Air: No O2 LPM (liter/min) Level->4 via mask FiO2 Level: 100 Quinn Covarrubias MD LABORATORY Performing Organization Address [facility] de Phone Number [facility] [address] [address] * (ABNORMAL) ICU MAGNESIUM (11/06/2023 6:31 AM DRAPERY HEAD FORMER) Only the most recent of2 resultswithin the time period is included. Magnesium 2.5(H) 1.6 - 2.4 mg/dL [facility] Blood 11/06/2023 6:31 AM DRAPERY HEAD FORMER 11/06/2023 7:37 AM DRAPERY HEAD FORMER Devin Dougherty MD LABORATORY Performing Organization Address [facility] de Phone Number [facility] [address] [address] * ICU PHOSPHORUS (11/06/2023 6:31 AM DRAPERY HEAD FORMER) Only the most recent of2 resultswithin the time period is included. Phosphorus 4.1 2.5 - 4.5 mg/dL [facility] Blood 11/06/2023 6:31 AM DRAPERY HEAD FORMER 11/06/2023 7:37 AM DRAPERY HEAD FORMER Devin Dougherty MD LABORATORY Performing Organization Address [facility] de Phone Number [facility] [address] [address] * (ABNORMAL) ICU CBC WITH PLATELET (11/06/2023 6:31 AM DRAPERY HEAD FORMER) Only the most recent of2 resultswithin the time period is included. WBC 9.06 4.00 - 10.00 k/cmm [facility] RBC 3.77(L) 3.90 - 5.20 m/cmm [facility] Hgb 9.6(L) 11.5 - 15.7 g/dL [facility] Hematocrit 30.8(L) 34.0 - 45.0 % [facility] MCV 81.7 80.0 - 100.0 fL [facility] MCH 25.5 25.0 - 32.0 pg [facility] MCHC 31.2 31.0 - 36.0 g/dL [facility] RDW 15.9(H) 11.5 - 14.5 % [facility] Plt 284 150 - 400 k/cmm [facility] MPV 12.1 6.5 - 12.5 fL [facility] Blood 11/06/2023 6:31 AM DRAPERY HEAD FORMER 11/06/2023 7:37 AM DRAPERY HEAD FORMER Devin Dougherty MD LABORATORY [facility] [address] [address] * (ABNORMAL) ICU PANEL BASIC METABOLIC (BMP) (11/06/2023 6:31 AM DRAPERY HEAD FORMER) Only the most recent of2 resultswithin the time period is included. Sodium 142 135 - 148 mEq/L [facility] Potassium 3.7 3.5 - 5.3 mEq/L [facility] Chloride 107 92 - 108 mEq/L [facility] CO2 26 22 - 30 mEq/L [facility] AnGap 9 8 - 16 mEq/L [facility] Glucose 148(H) 70 - 100 mg/dL [facility] BUN 12 8 - 23 mg/dL [facility] Creatinine 0.77 0.50 - 1.00 mg/dL [facility] Calcium 8.7(L) 8.8 - 10.2 mg/dL [facility] eGFR (2020 CKD-EPI) 77 >=60 ml/min/1.7 3m2 [facility] Comment: The estimated glomerular filtration rate (eGFR) was calculated using the CKD-EPI 2020 creatinine equation, which does not include race as a factor. This equation is validated in individuals 18 years of age and older, and eGFR is normalized to a body surface area of 1.73m^2. Blood 11/06/2023 6:31 AM [facility] FORMER 11/06/2023 7:37 AM [facility] FORMER Devin Dougherty MD LABORATORY Performing Organization Address [place]/[facility] Co de Phone Number [facility] [address] [address] * PROTHROMBIN (PT) & INR (11/06/2023 6:31 AM [facility] FORMER) Only the most recent of3 resultswithin the time period is included. PT 11.4 9.0 - 12.5 sec [facility] INR 1.0 0.8 - 1.1 [facility] Comment: Warfarin Therapeutic Range: Standard Intensity: 2.0 - 3.0 High Intensity: 2.5 - 3.5 Blood 11/06/2023 6:31 AM [facility] FORMER 11/06/2023 7:37 AM [facility] FORMER Quinn Covarrubias MD LABORATORY Performing Organization Address [facility] de Phone Number [address] [address] * (ABNORMAL) GLYCOSYLATED HGB - A1C (11/06/2023 6:31 AM [facility] FORMER) Hemoglobin A1C 8.1(H) 4.0 - 5.6 % [facility] Comment: Increased risk for diabetes (prediabetes): 5.7-6.4% Diabetes: greater than or equal to 6.5% * * In the absence of unequivocal hyperglycemia, diagnosis requires two abnormal test results (i.e. HbA1c and glucose) or two abnormal results from specimens collected at two different timepoints. Estimated Average Glucose 186(H) 68 - 114 [facility] Comment: The ADA recommends reporting an estimated Average Glucose (eAG) with all hemoglobin A1c results using the equation derived from a study of 501 normal diabetic adults. Minority populations were underrepresented and children were not included. The EAG is not equivalent to a fasting glucose. Blood 11/06/2023 6:31 AM DRAPERY HEAD FORMER 11/06/2023 11:28 AM DRAPERY HEAD FORMER Quinn Covarrubias MD LABORATORY Performing Organization Address [facility] Co de Phone Number [address] [address] * (ABNORMAL) POTASSIUM (11/05/2023 4:48 PM DRAPERY HEAD FORMER) Potassium 3.2(L) 3.5 - 5.3 mEq/L [facility] Blood 11/05/2023 4:48 PM DRAPERY HEAD FORMER 11/05/2023 4:58 PM DRAPERY HEAD FORMER Quinn Covarrubias MD LABORATORY [facility] [address] [place] [address] * CT HEAD NO IV CONTRAST (11/05/2023 11:44 AM DRAPERY HEAD FORMER) Only the most recent of3 resultswithin the time period is included. Anatomical Region Laterality Modality Skull Computed Tomogra phy 11/05/2023 12:1 6 PM DRAPERY HEAD FORMER Impressions 11/05/2023 12:38 PM DRAPERY HEAD FORMER Impression: Stable head CT as compared to the study performed 7 hours earlier. Intra-axial and extra-axial hemorrhage(s) without midline shift or hydrocephalus. The basal cisterns are patent. Reading Radiologist: Ford Fernández Narrative 11/05/2023 12:38 PM DRAPERY HEAD FORMER Exam: Head CT without contrast, 11/05/2023 Indication: [...] * EKG ADULT (12-LEAD) (11/05/2023 6:38 AM DRAPERY HEAD FORMER) 11/05/2023 6:38 AM DRAPERY HEAD FORMER Impressions [facility] EKG ORDERS - 11/05/2023 6:38 AM DRAPERY HEAD FORMER SINUS RHYTHM RIGHT BUNDLE BRANCH BLOCK ??[120+ ms QRS DURATION, UPRIGHT V1, 40+ ms S IN I/aVL/V4/V5/V6] ABNORMAL ECG P-R Interval 151 ms QRS Interval 128 ms QT Interval 420 ms QTC Interval 462 ms P [place] 9 QRS [place] 27 T Wave [place] 70 Narrative Procedure Note Lauren Mills MD - 11/06/2023 IMPRESSION SINUS RHYTHM RIGHT BUNDLE BRANCH BLOCK [120+ ms QRS DURATION, UPRIGHT V1, 40+ ms S INI/aVL/V4/V5/V6] ABNORMAL ECG P-R Interval 151 ms QRS Interval 128 ms QT Interval 420 ms QTC Interval 462 ms P [place] 9 QRS [place] 27 T Wave [place] 70 Quinn Covarrubias MD EKG Performing Organization Address City/[facility]/ZIP Co de Phone Number [facility] EKG ORDERS * (ABNORMAL) ICU BLOOD GAS (11/05/2023 4:27 AM DRAPERY HEAD FORMER) PH Art 7.38 7.35 - 7.45 [facility] PCO2 Art 42 35 - 45 mmHG [facility] PO2 Art 99(H) 75 - 85 mmHG [facility] Bicarb Art 25 22 - 26 mEq/L [facility] O2 Sat Art 98 96 - 99 % [facility] Base Exc Art 0.0 -10.0 - 2.0 mEq/L [facility] Blood Arterial 11/05/2023 4: 27 AM DRAPERY HEAD FORMER 11/05/2023 4:34 AM DRAPERY HEAD FORMER Devin Dougherty MD LABORATORY [facility] [address] [address] * (ABNORMAL) TROP 6H (11/05/2023 4:27 AM DRAPERY HEAD FORMER) 6H Trop 51(H) <=14 ng/L [facility] 6H Delta Significan t(A) Not Significant [facility] Blood 11/05/2023 4:27 AM DRAPERY HEAD FORMER 11/05/2023 4:35 AM DRAPERY HEAD FORMER Devin Dougherty MD LABORATORY Performing Organization Address [facility] Co de Phone Number [facility] [address] [address] * (ABNORMAL) TROP 4H (11/05/2023 2:58 AM DRAPERY HEAD FORMER) 4H Trop 39(H) <=14 ng/L [facility] 4H Delta Significan t(A) Not Significant [facility] Blood 11/05/2023 2:58 AM DRAPERY HEAD FORMER 11/05/2023 3:48 AM DRAPERY HEAD FORMER Devin Dougherty MD LABORATORY Performing Organization Address [facility] de Phone Number [facility] [address] [address] * (ABNORMAL) PANEL HEPATIC FUNCTION (11/05/2023 1:32 AM DRAPERY HEAD FORMER) Alk Phos 111(H) 35 - 104 IU/L [facility] Total Protein 6.5 6.4 - 8.3 g/dL [facility] Bili Direct na <=0.3 mg/dL [facility] Comment:Direct Bilirubin = < 0.2. Accuracy of result suspect due to lipemia. Albumin 3.8 3.8 - 5.1 g/dL [facility] Bili Total <0.2 <=1.2 mg/dL [facility] ALT (SGPT) na <=33 [facility] Comment:ALT = 15. Accuracy o f result suspect due to lipemia. AST(SGOT) na 5 - 40 [facility] Comment:AST = 27. Accuracy o f result suspect due to lipemia. Blood 11/05/2023 1:32 AM DRAPERY HEAD FORMER 11/05/2023 1:32 AM DRAPERY HEAD FORMER Devin Dougherty MD LABORATORY Performing Organization Address [facility] Co de Phone Number [facility] [address] [address] * FIBRINOGEN (11/05/2023 1:32 AM DRAPERY HEAD FORMER) Only the most recent of2 resultswithin the time period is included. Fibrinogen 262 200 - 400 mg/dL [facility] Blood 11/05/2023 1:32 AM DRAPERY HEAD FORMER 11/05/2023 1:32 AM DRAPERY HEAD FORMER Devin Dougherty MD LABORATORY Performing Organization Address [facility] de Phone Number [facility] [address] [address] * CK, TOTAL (11/05/2023 1:32 AM DRAPERY HEAD FORMER) CK 56 26 - 192 IU/L [facility] Blood 11/05/2023 1:32 AM DRAPERY HEAD FORMER 11/05/2023 1:32 AM DRAPERY HEAD FORMER Devin Dougherty MD LABORATORY Performing Organization Address [facility] de Phone Number [facility] [address] [address] * PTT (APTT) (11/05/2023 1:32 AM DRAPERY HEAD FORMER) Only the most recent of2 resultswithin the time period is included. APTT 26.0 25.0 - 37.0 sec [facility] Blood 11/05/2023 1:32 AM DRAPERY HEAD FORMER 11/05/2023 1:32 AM DRAPERY HEAD FORMER Devin Dougherty MD LABORATORY Performing Organization Address [facility] Co de Phone Number [facility] [address] [address] * (ABNORMAL) TROP 2H (11/05/2023 1:18 AM DRAPERY HEAD FORMER) 2H Trop 18(H) <=14 ng/L [facility] 2H Delta Indeterminate Not Significant [facility] Blood 11/05/2023 1:18 AM DRAPERY HEAD FORMER 11/05/2023 1:45 AM DRAPERY HEAD FORMER Devin Dougherty MD LABORATORY Performing Organization Address [facility] Co de Phone Number [facility] [address] [address] * LACTATE (LACTIC ACID) (11/05/2023 1:18 AM DRAPERY HEAD FORMER) Only the most recent of2 resultswithin the time period is included. Lactate 1.9 0.7 - 2.1 mmol/L [facility] Blood 11/05/2023 1:18 AM DRAPERY HEAD FORMER 11/05/2023 1:27 AM DRAPERY HEAD FORMER Narrative [facility] - 11/05/2023 1:45 AM DRAPERY HEAD FORMER Send specimen on ice! Devin Dougherty MD LABORATORY Performing Organization Address [facility] Co de Phone Number [address] [address] * CALCIUM,IONIZED (11/05/2023 1:18 AM DRAPERY HEAD FORMER) PH 7.37 7.32 - 7.42 [facility] ICA, Actual 4.82 4.40 - 5.20 mg/dL [facility] ICA, pH Corrected 4.75 4.40 - 5.20 mg/dL [facility] Blood 11/05/2023 1:18 AM DRAPERY HEAD FORMER 11/05/2023 1:27 AM DRAPERY HEAD FORMER Narrative [facility] - 11/05/2023 1:44 AM DRAPERY HEAD FORMER Send specimen on ice! Devin Dougherty MD LABORATORY Performing Organization Address [facility] Co de Phone Number [address] [address] * CT HEAD-NECK - ANGIO - W/IV CON (11/05/2023 12:09 AM DRAPERY HEAD FORMER) Anatomical Region Laterality Modality Skull Computed Tomogra phy 11/05/2023 12:2 1 AM DRAPERY HEAD FORMER Impressions 11/05/2023 10:22 AM DRAPERY HEAD FORMER Impression: ?? Slightly increased size of the [...] Fernández Resident: Laith Berkowitz 11/05/2023 10:[address] angiogram of the Head with contrast, [...] and reviewed by the Radiologist using the [employer] workstation, and these images were archived in [...] and reviewed by the Radiologist using the [employer] workstation,and these images were archived in the [...] NEURO * (ABNORMAL) URINALYSIS,TOTAL (11/04/2023 11:55 PM DRAPERY HEAD FORMER) Color COLORLESS YELLOW [facility] Appearance CLEAR CLEAR [facility] Urine Glucose 100(A) NEGATIVE mg/dL [facility] Bili UA NEGATIVE NEGATIVE [facility] Ketones NEGATIVE NEGATIVE [facility] Specific Catherine 1.036(A) 1.003 - 1.030 [facility] Blood Ur NEGATIVE Neg-Trace [facility] PH Urine 7.5(H) 5.0 - 7.0 [facility] Protein Ur TRACE Neg-Trace [facility] Urobilinogen NORMAL NORMAL EU/dL [facility] Nitrite Ur NEGATIVE NEGATIVE [facility] Leuk Est NEGATIVE Neg-Trace [facility] WBC Ur 0-5 0 - 5 perHPF [facility] RBC Ur 0-3 0 - 3 perHPF [facility] SQ EPITH 0-5 0 - 5 perHPF [facility] Urinalysis Performed at: [facility] Urine 11/04/2023 11:5 5 PM DRAPERY HEAD FORMER 11/05/2023 12:03 AM DRAPERY HEAD FORMER Devin Dougherty MD LABORATORY [facility] [address] [place] [id number] * PF INSERT CATH,ART,PERCUT,SHORTTERM (11/04/2023 11:43 PM DRAPERY HEAD FORMER) Narrative Rito Graf MD - 11/04/2023 11:43 PM DRAPERY HEAD FORMER Priscilla Holcomb MD ? 11/04/2023 11:44 PM Arterial Line Performed by: Priscilla Holcomb MD Authorized by: Rito Graf MD ?? Consent: ??Consent obtained: ??Verbal ??Consent given by: ??Patient ??Risks discussed: ??Pain, bleeding and infection [place] protocol: ??Patient identity confirmed: ??Verbally with patient, [...] * ED EKG (12-LEAD) (11/04/2023 11:25 PM DRAPERY HEAD FORMER) 11/04/2023 11:2 5 PM DRAPERY HEAD FORMER Impressions [facility] ORDERS - 11/04/2023 11:25 PM DRAPERY HEAD FORMER SINUS TACHYCARDIA RIGHT BUNDLE BRANCH BLOCK ??[120+ ms QRS DURATION, UPRIGHT V1, 40+ ms S IN I/aVL/V4/V5/V6] ABNORMAL ECG P-R Interval 173 ms QRS Interval 127 ms QT Interval 395 ms QTC Interval 458 ms P [place] 57 QRS [place] 34 T Wave [place] 43 Narrative Procedure Note Vineet Díaz MD - 11/05/2023 IMPRESSION SINUS TACHYCARDIA RIGHT BUNDLE BRANCH BLOCK [120+ ms QRS DURATION, UPRIGHT V1, 40+ ms S INI/aVL/V4/V5/V6] ABNORMAL ECG P-R Interval 173 ms QRS Interval 127 ms QT Interval 395 ms QTC Interval 458 ms P [place] 57 QRS [place] 34 T Wave [place] 43 Devin Dougherty MD EKG [facility] * CT SPINE THORACIC NO IV CON (11/04/2023 11:05 PM DRAPERY HEAD FORMER) Anatomical Region Laterality Modality Thoracic Spine Computed Tomogra phy 11/04/2023 11:2 3 PM DRAPERY HEAD FORMER Impressions 11/05/2023 9:22 AM DRAPERY HEAD FORMER Impression: 1. No suspected acute fracture or dislocation of the thoracic or lumbar spine. ?? 2. Uzrg-mu-jakpytuh lumbar spondylosis without suspected high-grade spinal canal or neural foraminal narrowing. I have personally reviewed the image(s) and initial interpretation, and I agree with the findings as documented by the resident/fellow. Reading Radiologist: Ford Fernández Resident: Laith Berkowitz 11/05/2023 9:22 AM DRAPERY HEAD FORMER Exam: Thoracic and Lumbar Spine CT Reconstructions, [...] dislocation of the thoracic or lumbarspine. 2. Jzgd-ne-nmneohjg lumbar spondylosis without suspected high-grade spinalcanal or neural foraminal narrowing. I have personally reviewed the image(s) and initial interpretation, and Iagree with the findings as documented by the resident/fellow. Reading Radiologist: Ford Fernández Resident: Laith Berkowitz Devin Dougherty MD RAD CT NEURO * CT SPINE LUMBAR NO IV CON (11/04/2023 11:05 PM DRAPERY HEAD FORMER) Anatomical Region Laterality Modality Lumbar Spine Computed Tomogra phy 11/04/2023 11:2 3 PM DRAPERY HEAD FORMER Impressions 11/05/2023 9:22 AM DRAPERY HEAD FORMER Impression: 1. No suspected acute fracture or dislocation of the thoracic or lumbar spine. ?? 2. Guvi-wr-eqonwswu lumbar spondylosis without suspected high-grade spinal canal or neural foraminal narrowing. I have personally reviewed the image(s) and initial interpretation, and I agree with the findings as documented by the resident/fellow. Reading Radiologist: Ford Fernández Resident: Laith Berkowitz Narrative 11/05/2023 9:22 AM DRAPERY HEAD FORMER Exam: Thoracic and Lumbar Spine CT Reconstructions, [...] dislocation of the thoracic or lumbarspine. 2. Udea-ip-docmcpfa lumbar spondylosis without suspected high-grade spinalcanal or neural foraminal narrowing. I have personally reviewed the image(s) and initial interpretation, and Iagree with the findings as documented by the resident/fellow. Reading Radiologist: Ford Fernández Resident: Laith Berkowitz Devin Dougherty MD RAD CT NEURO * CT SPINE CERVICAL NO IV CON (11/04/2023 11:05 PM DRAPERY HEAD FORMER) Anatomical Region Laterality Modality Cervical Spine Computed Tomogra phy 11/04/2023 11:2 0 PM DRAPERY HEAD FORMER Impressions 11/05/2023 8:27 AM DRAPERY HEAD FORMER Impression: ?? 1. No acute fracture or traumatic subluxation of the cervical vertebrae. 2. Mild degenerative changes of the cervical spine without high-grade spinal canal or neural foraminal narrowing. I have personally reviewed the image(s) and initial interpretation, and I agree with the findings as documented by the resident/fellow. Reading Radiologist: Ford Fernández Resident: Laith Berkowitz Narrative 11/05/2023 8:27 AM DRAPERY HEAD FORMER Exam: Cervical spine CT without contrast, 11/04/2023 [...] spinal canal narrowing. C5-6: Mild left and lckg-gc-yhqztvoo right neural foraminal narrowing. Borderline mild spinal [...] spinal canal narrowing. C5-6: Mild left and plwp-tc-ntdqhzxa right neural foraminal narrowing.Borderline mild spinal canal [...] CT CHEST/ABD/PELVIS W/IV CONT (11/04/2023 11:05 PM DRAPERY HEAD FORMER) Anatomical Region Laterality Modality Chest Computed Tomogra phy 11/04/2023 11:2 9 PM DRAPERY HEAD FORMER Impressions 11/05/2023 6:33 AM DRAPERY HEAD FORMER Impression: 1. No acute traumatic sequelae in [...] Resident: Laith Berkowitz Narrative 11/05/2023 6:33 AM DRAPERY HEAD FORMER Comparison: None Indication: Trauma (STAB) ?? Technique: [...] ED CHEMISTRY LABS(NA,K,CL,CO2,GLU,CREAT,CA-IONIZED,ANION GAP) (11/04/2023 10:48 PM DRAPERY HEAD FORMER) Sodium 144 135 - 148 mEq/L [facility] Chloride 106 92 - 108 mEq/L [facility] AnGap 11 8 - 16 mEq/L [facility] Glucose 234(H) 70 - 100 mg/dL [facility] ICA, Actual 4.52 4.40 - 5.20 mg/dL [facility] ICA, pH Corrected 4.51 4.40 - 5.20 mg/dL [facility] Creatinine 0.81 0.50 - 1.00 mg/dL [facility] BICARB 27(H) 22 - 26 mEq/L [facility] eGFR (2020 CKD-EPI) 73 >=60 ml/min/1.7 3m2 [facility] Comment: The estimated glomerular filtration rate (eGFR) was calculated using the CKD-EPI 2020 creatinine equation, which does not include race as a factor. This equation is validated in individuals 18 years of age and older, and eGFR is normalized to a body surface area of 1.73m^2. Potassium 2.8(AA) 3.5 - 5.3 mEq/L [facility] Comment:Critcal Result Low Blood 11/04/2023 10:4 8 PM DRAPERY HEAD FORMER 11/04/2023 10:49 PM DRAPERY HEAD FORMER Narrative [facility] - 11/04/2023 10:55 PM DRAPERY HEAD FORMER Critical value for Potassium called to and read back by Rafa Hutchins RN in ??EDSTAB 2 at 11/04/2023 22:55:31 DRAPERY HEAD FORMER by Eleni Spring MLS. Devin Dougherty MD LABORATORY Performing Organization Address [facility] Co de Phone Number [facility] [address] [address] * (ABNORMAL) ED HEMOGLOBIN TOTAL (ED ONLY) (11/04/2023 10:48 PM DRAPERY HEAD FORMER) [facility] Hgb 10.3(L) 11.5 - 15.7 g/dL [facility] Blood 11/04/2023 10:4 8 PM DRAPERY HEAD FORMER 11/04/2023 10:49 PM DRAPERY HEAD FORMER Devin Dougherty MD LABORATORY Performing Organization Address [facility] Co de Phone Number [address] [address] * ED INR (11/04/2023 10:45 PM DRAPERY HEAD FORMER) [facility] ED INR 1.0 0.8 - 1.1 [facility] Comment: Warfarin Therapeutic Range: Standard Intensity: 2.0 - 3.0 High Intensity: 2.5 - 3.5 Blood 11/04/2023 10:4 5 PM DRAPERY HEAD FORMER 11/04/2023 10:48 PM DRAPERY HEAD FORMER Devin Dougherty MD LABORATORY Performing Organization Address [facility] Co de Phone Number [address] [address] * EXTRA TUBE - LIGHT GREEN (11/04/2023 10:45 PM DRAPERY HEAD FORMER) Pathologist [facility] LIGHT GREEN TUBE Stored [facility] Comment:Green tubes ([place] Heparin) are stored in the lab for 3 days from the collection date. Blood 11/04/2023 10:4 5 PM DRAPERY HEAD FORMER 11/04/2023 10:50 PM DRAPERY HEAD FORMER Devin Dougherty MD LABORATORY Performing Organization Address City/[facility] Co de Phone Number [facility] [address] [address] * EXTRA TUBE - SST (11/04/2023 10:45 PM DRAPERY HEAD FORMER) SST TUBE Stored [facility] Comment:SST tubes (Serum Sep arator) are stored in the lab for 3 days from the collection date. Blood 11/04/2023 10:4 5 PM DRAPERY HEAD FORMER 11/04/2023 10:50 PM DRAPERY HEAD FORMER Devin Dougherty MD LABORATORY Performing Organization Address [facility] Co de Phone Number [facility] [address] [address] * HS TROPONIN (11/04/2023 10:45 PM DRAPERY HEAD FORMER) Pathologist [facility] HS Troponin I 10 <=14 ng/L [facility] Blood 11/04/2023 10:4 5 PM DRAPERY HEAD FORMER 11/04/2023 11:05 PM DRAPERY HEAD FORMER Narrative [facility] - 11/04/2023 11:36 PM DRAPERY HEAD FORMER First Occurrence of the Troponin order is to be drawn Stat by Nursing staff on the unit. Devin Dougherty MD LABORATORY Performing Organization Address [facility] Co de Phone Number [facility] [address] [address] * (ABNORMAL) CBC WITH PLTS/AUTO DIFF (11/04/2023 10:45 PM DRAPERY HEAD FORMER) WBC 9.42 4.00 - 10.00 k/cmm [facility] RBC 3.86(L) 3.90 - 5.20 m/cmm [facility] Hgb 9.8(L) 11.5 - 15.7 g/dL [facility] Hematocrit 31.8(L) 34.0 - 45.0 % [facility] MCV 82.4 80.0 - 100.0 fL [facility] MCH 25.4 25.0 - 32.0 pg [facility] MCHC 30.8(L) 31.0 - 36.0 g/dL [facility] RDW 15.3(H) 11.5 - 14.5 % [facility] Plt 292 150 - 400 k/cmm [facility] MPV 11.1 6.5 - 12.5 fL [facility] Automated Abs Neutrophil 5.80 1.70 - 6.50 k/cmm [facility] Comment:Preliminary ANC, Fin al Result to Follow Abs Immature Granulocyte 0.07 0.00 - 0.09 k/cmm [facility] Comment:The Immature Granulo cyte Absolute count contains metamyelocytes and myelocytes. Abs Neutrophil 5.80 1.70 - 6.50 k/cmm [facility] Abs Lymphocyte 2.33 0.80 - 4.00 k/cmm [facility] Abs Monocyte 0.88 0.20 - 1.00 k/cmm [facility] Abs Eosinophil 0.27 0.00 - 0.60 k/cmm [facility] Abs Basophil 0.07 0.00 - 0.20 k/cmm [facility] Blood 11/04/2023 10:4 5 PM DRAPERY HEAD FORMER 11/04/2023 11:05 PM DRAPERY HEAD FORMER Devin Dougherty MD LABORATORY Performing Organization Address City/[facility] Co de Phone Number [facility] [address] [address] * PRECAUTIONARY TUBE (11/04/2023 10:45 PM DRAPERY HEAD FORMER) Prec Tube Precautionary Blood Bank Specimen Received. [facility] Blood 11/04/2023 10:4 5 PM DRAPERY HEAD FORMER 11/04/2023 10:52 PM DRAPERY HEAD FORMER Devin Dougherty MD LAB TRANSFUSION SER VICES Performing Organization Address City/[facility]/ZIP Co de Phone Number [facility] [address] [address] * (ABNORMAL) ANTI XA HEPARIN UNFRACTIONATED (11/04/2023 10:45 PM DRAPERY HEAD FORMER) Anti XA Hep U <0.04(L) 0.30 - 0.70 IU/mL [facility] Blood 11/04/2023 10:4 5 PM DRAPERY HEAD FORMER 11/04/2023 11:05 PM DRAPERY HEAD FORMER Devin Dougherty MD LABORATORY [facility] [address] [address] * ED US CRITICAL CARE (11/04/2023 10:40 PM DRAPERY HEAD FORMER) Anatomical Region Laterality Modality Ultrasound Narrative 11/04/2023 11:28 PM DRAPERY HEAD FORMER ED Trauma eFAST Ultrasound Indications: Suspicion of [...] Advance Directives For more information, please contact: [phone] Latest Code Status on File Code Status [...] Code Status With Whom? Patient Care Teams Dairy Nutritionist Relationship Specialty Start Date End Date Eloise Reeves DO [address] [place] [address] PCP - General Family Medicine 11/06/23
--- OUTSIDE RECORDS SUMMARY | 2023-12-11 01:28 | XMS_ITS | Encounter Summary ---
Author Name Unknown Organization [facility] Address [address] [place] [address] Phone Care Team Providers Care Project Hire Name Role Phone Eloise Reeves DO Primary Care Provider [phone] Reason for Visit * Reason Comments Referral TBI * Consult/Test/Treat (Routine) - Closed Specialty Diagnoses / Procedures Referred By Contac t Referred To Contact Physical Medicine and Rehab / PHYSICAL MEDICINE AND REHAB Diagnoses Fall, initial encounter SDH (subdural hematoma) ([facility]) SAH (subarachnoid hemorrhage) ([facility]) Traumatic brain injury with loss of consciousness, initial encounter ([facility]) Jesusita Aiken, TAMMIE, GYMNASTICS COACH [address] [place] [address] [facility] [address] [place] [id number] Referral ID Status Reason Start Date Expiration Date Visits Re quested Visits Authorized [id number] Closed 11/08/2023 11/07/2024 1 1 Encounter Details Date Type Department Care Team (Latest Contact Info) Description 11/27/2023 1:00 PM ADVERTISING OPERATIONS COORDINATOR [facility] [address] [address] Leidy Velazquez PA-C [address] [address] Mild traumatic brain injury, with [...] Coronavirus/COVID-19? No / Unsure 11/04/2023 10:48 PM ADVERTISING OPERATIONS COORDINATOR documented as of this encounter Last Filed Vital Signs Vital Sign Reading Time Taken Comments Blood Pressure 108/71 11/27/2023 12:54 PM ADVERTISING OPERATIONS COORDINATOR Pulse 74 11/27/2023 12:54 PM ADVERTISING OPERATIONS COORDINATOR Temperature - - Respiratory Rate - - Oxygen Saturation - - Inhaled Oxygen Concentration - - Weight 61.6 kg (135 lb 12.8 oz) 024 12:54 PM ADVERTISING OPERATIONS COORDINATOR Height - - Body Mass Index 28.38 11/05/2023 12:03 AM ADVERTISING OPERATIONS COORDINATOR documented in this encounter Patient Instructions * Patient Instructions* Leidy Velazquez PA-C - 11/27/2023 1:00 PM ADVERTISING OPERATIONS COORDINATOR You were seen at [facility] for traumatic brain injury. You have been [...] you do not hear from them, call [phone] to schedule Psychiatry for mood changes, this is for evaluation and treatment recommendations that may include medication. You will need to call to schedule this appointment. Please call [phone] and inform them you have a referral [...] to your scheduled appointment by calling at [phone]. If you miss three or more appointments, [...] plan ahead. Paperwork can be faxed to [phone]. Brain Injury and Physical Medicine & Rehabilitation Contact List Lista de contactos de lesiones cerebrales traum??rochelle, medicina f??gricelda y rehabilitaci??ora Ibrahim Maskxada jenn Jiménez [employer] Phone To Schedule Appointments Para programar citas Hadii aad dooneeyso inaad norman sameeysato They make appointments for your doctor in the TBI/PMR clinic and your therapists [phone] Staff Nurse Nicolas carney??kriti Davalos Call for questions about medications, symptoms, or paperwork issues You can fax paperwork to [phone]. [phone] Health Information Management (HIM)/Medical Records [facility] Ashu [place]ay Contact them if you need copies of your medical records at [facility]. If you work with a [facility] they shouldcontact [facility] for their updates. You can also visit them on Blue 1. They are open Sunday-Sunday. If you need a form for Authorization to Release Health Information, you may request one at an appointment or download a form online at: [email or web address] Patient Billing/ Financial Assistance Facturaci??n Ellie Saunders/Meli duran If you have questions or problems with your medical bills. Financial assistance, insurance issues, or for more information about your medical bill. [phone] Community Resources: The [place] [facility] offers resource facilitation at [email or web address]. Online courses [...] please call the TBI nurse at . RTISING OPERATIONS COORDINATOR documented in this encounter Progress Notes * Leidy Velazquez PA-C - 11/27/2023 1:00 PM CST [place], [place] [id number] [place] [address]#: [id number] PATIENT: Luicnda Casas : 1940 DATE OF SERVICE: 11/27/2023 [...] including pre-visit review of separately obtained history, [id number] interaction performing medically appropriate physical exam, patient [...] including pre-visit review of separately obtained history, [id number] interaction performing medically appropriate physical exam, patient counseling/education, interpretation of diagnostic results, care coordination and documentation. External records reviewed through care everywhere, [facility] documentation reviewed for information regarding injury. History collected through review of records, in addition to patient report. 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
--- OUTSIDE RECORDS SUMMARY | 2023-12-11 01:28 | XMS_ITS | Referral Summary ---
Author Name Unknown Organization [facility] Address [address] [place] [address] Phone Care Team Providers Care Boat Person Name Role Phone Eloise Reeves Sushil BUSBY Primary Care Provider [phone] Source Comments [employer] is fully rolled out on [employer]. Last update 04/02/09.[facility] Encounters Date Type Department Care Team Description 11/27/2023 1:00 PM POLICY SERVICES REPRESENTATIVE [facility] [address] [address] Leidy Velazquez, PAElodiaC Mild traumatic brain injury, with loss of consciousness of 30 minutes or less, initial encounter ([facility]) (Primary Dx); Reversed sleep wake cycle; Lack of appetite Discharge Disposition: Discharged to home or self care (routine discharge) 11/04/2023 10:39 PM POLICY SERVICES REPRESENTATIVE - 11/16/2023 9:19 AM POLICY SERVICES REPRESENTATIVE Hospital Encounter [facility] Surgery/Trauma/Kimmie ro [address] [place] [address] Devin Dougherty MD Petrun, Branden, MD [place], [...] Comments Blood Pressure 108/71 11/27/2023 12:54 PM POLICY SERVICES REPRESENTATIVE Pulse 74 11/27/2023 12:54 PM POLICY SERVICES REPRESENTATIVE Temperature 36.6 ??C (97.8 ??F) 11/16/2023 4:25 AM CS T Respiratory Rate 16 11/16/2023 4:25 AM POLICY SERVICES REPRESENTATIVE Oxygen Saturation 90% 11/16/2023 4:25 AM POLICY SERVICES REPRESENTATIVE Inhaled Oxygen Concentration - - Weight 61.6 kg (135 lb 12.8 oz) 024 12:54 PM POLICY SERVICES REPRESENTATIVE Height 147.3 cm (4' 10) 11/05/2023 12: 03 AM POLICY SERVICES REPRESENTATIVE Body Mass Index 28.38 11/05/2023 12:03 AM POLICY SERVICES REPRESENTATIVE Plan of Treatment Not on file Procedures Procedure Name Priority Date/Time Associated Diagnosis Comments PANEL BASIC METABOLIC (BMP) Routine 11/16/2023 7:22 AM POLICY SERVICES REPRESENTATIVE POC GLUCOSE Routine 11/16/2023 6:58 AM POLICY SERVICES REPRESENTATIVE POC GLUCOSE Routine 11/15/2023 9:15 PM POLICY SERVICES REPRESENTATIVE POC GLUCOSE Routine 11/15/2023 4:09 PM POLICY SERVICES REPRESENTATIVE POC GLUCOSE Routine 11/15/2023 12:46 PM POLICY SERVICES REPRESENTATIVE PANEL BASIC METABOLIC (BMP) Routine 11/15/2023 7:39 AM POLICY SERVICES REPRESENTATIVE POC GLUCOSE Routine 11/15/2023 6:11 AM POLICY SERVICES REPRESENTATIVE POC GLUCOSE Routine 11/14/2023 9:02 PM POLICY SERVICES REPRESENTATIVE POC GLUCOSE Routine 11/14/2023 4:21 PM POLICY SERVICES REPRESENTATIVE POC GLUCOSE Routine 11/14/2023 12:19 PM POLICY SERVICES REPRESENTATIVE PANEL BASIC METABOLIC (BMP) Routine 11/14/2023 8:59 AM POLICY SERVICES REPRESENTATIVE POC GLUCOSE Routine 11/14/2023 8:11 AM POLICY SERVICES REPRESENTATIVE POC GLUCOSE Routine 11/13/2023 9:15 PM POLICY SERVICES REPRESENTATIVE POC GLUCOSE Routine 11/13/2023 4:03 PM POLICY SERVICES REPRESENTATIVE POC GLUCOSE Routine 11/13/2023 11:21 AM POLICY SERVICES REPRESENTATIVE PANEL BASIC METABOLIC (BMP) Routine 11/13/2023 6:41 AM POLICY SERVICES REPRESENTATIVE POC GLUCOSE Routine 11/13/2023 6:31 AM POLICY SERVICES REPRESENTATIVE POC GLUCOSE Routine 11/12/2023 9:21 PM POLICY SERVICES REPRESENTATIVE POC GLUCOSE Routine 11/12/2023 4:12 PM POLICY SERVICES REPRESENTATIVE PANEL BASIC METABOLIC (BMP) Timed 11/12/2023 1:01 PM POLICY SERVICES REPRESENTATIVE POC GLUCOSE Routine 11/12/2023 12:14 PM POLICY SERVICES REPRESENTATIVE POC GLUCOSE Routine 11/12/2023 6:09 AM POLICY SERVICES REPRESENTATIVE POC GLUCOSE Routine 11/11/2023 8:48 PM POLICY SERVICES REPRESENTATIVE POC GLUCOSE Routine 11/11/2023 4:11 PM POLICY SERVICES REPRESENTATIVE POC GLUCOSE Routine 11/11/2023 11:47 AM POLICY SERVICES REPRESENTATIVE PHOSPHORUS Routine 11/11/2023 6:09 AM POLICY SERVICES REPRESENTATIVE PANEL BASIC METABOLIC (BMP) Routine 11/11/2023 6:09 AM POLICY SERVICES REPRESENTATIVE MAGNESIUM Routine 11/11/2023 6:09 AM POLICY SERVICES REPRESENTATIVE TC LAB BLOOD DRAW BY VENIPUNCTURE Routine 11/11/2023 6:09 AM POLICY SERVICES REPRESENTATIVE POC GLUCOSE Routine 11/10/2023 8:58 PM POLICY SERVICES REPRESENTATIVE POC GLUCOSE Routine 11/10/2023 4:16 PM POLICY SERVICES REPRESENTATIVE POC GLUCOSE Routine 11/10/2023 11:15 AM POLICY SERVICES REPRESENTATIVE PHOSPHORUS Routine 11/10/2023 6:17 AM POLICY SERVICES REPRESENTATIVE PANEL BASIC METABOLIC (BMP) Routine 11/10/2023 6:17 AM POLICY SERVICES REPRESENTATIVE MAGNESIUM Routine 11/10/2023 6:17 AM POLICY SERVICES REPRESENTATIVE PC LAB CBC/PLT Routine 11/10/2023 6:17 AM POLICY SERVICES REPRESENTATIVE POC GLUCOSE Routine 11/09/2023 9:41 PM POLICY SERVICES REPRESENTATIVE POC GLUCOSE Routine 11/09/2023 3:58 PM POLICY SERVICES REPRESENTATIVE ANTI XA ASSAY LMW HEPARIN Timed 11/09/2023 2:18 PM POLICY SERVICES REPRESENTATIVE POC GLUCOSE Routine 11/09/2023 11:28 AM POLICY SERVICES REPRESENTATIVE XR FOOT RIGHT 3 V AP/OBL/LAT* Routine 11/09/2023 10:36 AM POLICY SERVICES REPRESENTATIVE TELEMETRY STRIPS 11/09/2023 8:48 AM POLICY SERVICES REPRESENTATIVE POC GLUCOSE Routine 11/09/2023 5:46 AM POLICY SERVICES REPRESENTATIVE PC VALPROIC ACID LEVEL DEPAHOTE Routine 11/09/2023 5:41 AM POLICY SERVICES REPRESENTATIVE PHOSPHORUS Routine 11/09/2023 5:41 AM POLICY SERVICES REPRESENTATIVE PANEL BASIC METABOLIC (BMP) Routine 11/09/2023 5:41 AM POLICY SERVICES REPRESENTATIVE MAGNESIUM Routine 11/09/2023 5:41 AM POLICY SERVICES REPRESENTATIVE PC LAB CBC/PLT Routine 11/09/2023 5:41 AM POLICY SERVICES REPRESENTATIVE TELEMETRY STRIPS 11/09/2023 1:21 AM POLICY SERVICES REPRESENTATIVE POC GLUCOSE Routine 11/08/2023 8:40 PM POLICY SERVICES REPRESENTATIVE TELEMETRY STRIPS 11/08/2023 7:31 PM POLICY SERVICES REPRESENTATIVE PHOSPHORUS Routine 11/08/2023 4:20 PM POLICY SERVICES REPRESENTATIVE MAGNESIUM Routine 11/08/2023 4:20 PM POLICY SERVICES REPRESENTATIVE PANEL BASIC METABOLIC (BMP) Routine 11/08/2023 4:20 PM POLICY SERVICES REPRESENTATIVE TC LAB BLOOD DRAW BY VENIPUNCTURE Routine 11/08/2023 4:20 PM POLICY SERVICES REPRESENTATIVE POC GLUCOSE Routine 11/08/2023 3:56 PM POLICY SERVICES REPRESENTATIVE POC GLUCOSE Routine 11/08/2023 11:03 AM POLICY SERVICES REPRESENTATIVE TELEMETRY STRIPS 11/08/2023 9:49 AM POLICY SERVICES REPRESENTATIVE XR CHEST 1 VIEW AP OR PA* Routine 11/08/2023 6:30 AM POLICY SERVICES REPRESENTATIVE POC GLUCOSE Routine 11/08/2023 6:22 AM POLICY SERVICES REPRESENTATIVE TELEMETRY STRIPS 11/08/2023 2:59 AM POLICY SERVICES REPRESENTATIVE POC GLUCOSE Routine 11/07/2023 9:34 PM POLICY SERVICES REPRESENTATIVE TELEMETRY STRIPS 11/07/2023 7:31 PM POLICY SERVICES REPRESENTATIVE POC GLUCOSE Routine 11/07/2023 4:06 PM POLICY SERVICES REPRESENTATIVE POC GLUCOSE Routine 11/07/2023 11:45 AM POLICY SERVICES REPRESENTATIVE XR CHEST 2 VIEWS PA + LAT* Routine 11/07/2023 10:07 AM POLICY SERVICES REPRESENTATIVE TELEMETRY STRIPS 11/07/2023 9:29 AM POLICY SERVICES REPRESENTATIVE PC PROCALCITONIN (PCT) Routine 8:34 AM POLICY SERVICES REPRESENTATIVE PC LAB CBC/PLT Routine 11/07/2023 8:34 AM POLICY SERVICES REPRESENTATIVE PANEL BASIC METABOLIC (BMP) Routine 11/07/2023 8:34 AM POLICY SERVICES REPRESENTATIVE MAGNESIUM Routine 11/07/2023 8:34 AM POLICY SERVICES REPRESENTATIVE PHOSPHORUS Routine 11/07/2023 8:34 AM POLICY SERVICES REPRESENTATIVE POC GLUCOSE Routine 11/07/2023 5:45 AM POLICY SERVICES REPRESENTATIVE TELEMETRY STRIPS 11/07/2023 1:07 AM POLICY SERVICES REPRESENTATIVE POC GLUCOSE Routine 11/06/2023 9:21 PM POLICY SERVICES REPRESENTATIVE TELEMETRY STRIPS 11/06/2023 4:28 PM POLICY SERVICES REPRESENTATIVE PC GASES,BLOOD,ANY COMB OF PH,PCD2,PO2,CO2,HCO2 Routine 11/06/2023 1:06 PM POLICY SERVICES REPRESENTATIVE MAGNESIUM Timed 11/06/2023 1:06 PM POLICY SERVICES REPRESENTATIVE PHOSPHORUS Timed 11/06/2023 1:06 PM POLICY SERVICES REPRESENTATIVE PANEL BASIC METABOLIC (BMP) Timed 11/06/2023 1:06 PM POLICY SERVICES REPRESENTATIVE PC LAB CBC/PLT Timed 11/06/2023 1:06 PM POLICY SERVICES REPRESENTATIVE POC GLUCOSE Routine 11/06/2023 1:04 PM POLICY SERVICES REPRESENTATIVE POC GLUCOSE Routine 11/06/2023 10:49 AM POLICY SERVICES REPRESENTATIVE TELEMETRY STRIPS 11/06/2023 8:49 AM POLICY SERVICES REPRESENTATIVE PC LAB GLYCOSYLATED HGB Routine 11/06/2023 6:31 AM POLICY SERVICES REPRESENTATIVE PROTHROMBIN (PT) & INR Timed 6:31 AM POLICY SERVICES REPRESENTATIVE PC PHOSPHORUS INORGANIC(PHOSPHATE) Routine 11/06/2023 6:31 AM POLICY SERVICES REPRESENTATIVE PC MAGNESIUM, SERUM Routine 11/06/2023 6 :31 AM POLICY SERVICES REPRESENTATIVE PC LAB CBC/PLT Routine 11/06/2023 6:31 AM POLICY SERVICES REPRESENTATIVE TC LAB BLOOD DRAW BY VENIPUNCTURE Routine 11/06/2023 6:31 AM POLICY SERVICES REPRESENTATIVE POC GLUCOSE Routine 11/06/2023 5:39 AM POLICY SERVICES REPRESENTATIVE TELEMETRY STRIPS 11/06/2023 1:52 AM POLICY SERVICES REPRESENTATIVE POC GLUCOSE Routine 11/05/2023 4:54 PM POLICY SERVICES REPRESENTATIVE MAGNESIUM Routine 11/05/2023 4:48 PM POLICY SERVICES REPRESENTATIVE POTASSIUM Routine 11/05/2023 4:48 PM POLICY SERVICES REPRES[address]ATIVE CT HEAD NO IV CONTRAST Timed 11:44 AM POLICY SERVICES REPRESENTATIVE POC GLUCOSE Routine 11/05/2023 11:11 AM POLICY SERVICES REPRESENTATIVE TELEMETRY STRIPS 11/05/2023 9:25 AM POLICY SERVICES REPRESENTATIVE EKG ADULT (12-LEAD) Routine 11/05/2023 6 :38 AM POLICY SERVICES REPRESENTATIVE POC GLUCOSE Routine 11/05/2023 6:07 AM POLICY SERVICES REPRESENTATIVE CT HEAD NO IV CONTRAST Timed 4:54 AM POLICY SERVICES REPRESENTATIVE PROTHROMBIN (PT) & INR Timed 4:27 AM POLICY SERVICES REPRESENTATIVE PC PHOSPHORUS INORGANIC(PHOSPHATE) Routine 11/05/2023 4:27 AM POLICY SERVICES REPRESENTATIVE PC MAGNESIUM, SERUM Routine 11/05/2023 4 :27 AM POLICY SERVICES REPRESENTATIVE PC GASES,BLOOD,ANY COMB OF PH,PCD2,PO2,CO2,HCO2 Routine 11/05/2023 4:27 AM POLICY SERVICES REPRESENTATIVE PC LAB CBC/PLT Routine 11/05/2023 4:27 AM POLICY SERVICES REPRESENTATIVE TC LAB BLOOD DRAW BY VENIPUNCTURE Routine 11/05/2023 4:27 AM POLICY SERVICES REPRESENTATIVE PC TROPONIN QUANTITATIVE Timed 11/05/2023 4:27 AM POLICY SERVICES REPRESENTATIVE PC TROPONIN QUANTITATIVE Timed 11/05/2023 2:58 AM POLICY SERVICES REPRESENTATIVE CK, TOTAL STAT 11/05/2023 1:32 AM POLICY SERVICES REPRESENTATIVE FIBRINOGEN STAT 11/05/2023 1:32 AM POLICY SERVICES REPRESENTATIVE PC LAB PTT STAT 11/05/2023 1:32 AM POLICY SERVICES REPRESENTATIVE PANEL HEPATIC FUNCTION STAT 1:32 AM POLICY SERVICES REPRESENTATIVE PC LAB CBC/PLT STAT 11/05/2023 1:32 AM POLICY SERVICES REPRESENTATIVE PANEL BASIC METABOLIC (BMP) STAT 11/05/2023 1:32 AM POLICY SERVICES REPRESENTATIVE MAGNESIUM STAT 11/05/2023 1:32 AM POLICY SERVICES REPRESENTATIVE PHOSPHORUS STAT 11/05/2023 1:32 AM POLICY SERVICES REPRESENTATIVE PROTHROMBIN (PT) & INR STAT 1:32 AM POLICY SERVICES REPRESENTATIVE PC IONIZED,CALCIUM STAT 11/05/2023 1: 18 AM POLICY SERVICES REPRESENTATIVE PC LACTATE (LACTIC ACID) STAT 11/05/2023 1:18 AM POLICY SERVICES REPRESENTATIVE PC GASES,BLOOD,ANY COMB OF PH,PCD2,PO2,CO2,HCO2 STAT 11/05/2023 1:18 AM POLICY SERVICES REPRESENTATIVE PC TROPONIN QUANTITATIVE Timed 11/05/2023 1:18 AM POLICY SERVICES REPRESENTATIVE CT HEAD-NECK - ANGIO - W/IV CON STAT 11/05/2023 12:09 AM POLICY SERVICES REPRESENTATIVE PC LAB COMPLETE UA STAT 11/04/2023 11 :55 PM POLICY SERVICES REPRESENTATIVE PF INSERT CATH,ART,PERCUT,SANTA ERM Routine 11/04/2023 11:43 PM POLICY SERVICES REPRESENTATIVE ED EKG (12-LEAD) Routine 11/04/2023 11:2 5 PM POLICY SERVICES REPRESENTATIVE CT SPINE LUMBAR NO IV CON STAT 11/04/2023 11:05 PM POLICY SERVICES REPRESENTATIVE CT SPINE THORACIC NO IV CON STAT 11/04/2023 11:05 PM POLICY SERVICES REPRESENTATIVE CT CHEST/ABD/PELVIS W/IV CONT STAT 11/04/2023 11:05 PM POLICY SERVICES REPRESENTATIVE CT SPINE CERVICAL NO IV CON STAT 11/04/2023 11:05 PM POLICY SERVICES REPRESENTATIVE CT HEAD NO IV CONTRAST STAT 11:05 PM POLICY SERVICES REPRESENTATIVE XR CHEST 1 VIEW AP OR PA* STAT 11/04/2023 10:57 PM POLICY SERVICES REPRESENTATIVE TC LAB ER STAT TOTAL HGB STAT 11/04/2023 10:48 PM POLICY SERVICES REPRESENTATIVE PC ELECTROLYTES PANEL STAT 11/04/2023 10:48 PM POLICY SERVICES REPRESENTATIVE PC HEPARIN ASSAY STAT 11/04/2023 10:4 5 PM POLICY SERVICES REPRESENTATIVE EXTRA TUBE - SST Routine 11/04/2023 10:4 5 PM POLICY SERVICES REPRESENTATIVE TC LAB BLOOD DRAW BY VENIPUNCTURE Routine 11/04/2023 10:45 PM POLICY SERVICES REPRESENTATIVE PC TROPONIN QUANTITATIVE STAT 11/04/2023 10:45 PM POLICY SERVICES REPRESENTATIVE PC LAB PTT STAT 11/04/2023 10:45 PM POLICY SERVICES REPRESENTATIVE PC LAB ED INR STAT 11/04/2023 10:45 PM POLICY SERVICES REPRESENTATIVE PRECAUTIONARY TUBE STAT 11/04/2023 10 :45 PM POLICY SERVICES REPRESENTATIVE PC LACTATE (LACTIC ACID) STAT 11/04/2023 10:45 PM POLICY SERVICES REPRESENTATIVE FIBRINOGEN STAT 11/04/2023 10:45 PM POLICY SERVICES REPRESENTATIVE PC LAB CBC W/DIFF & PLT STAT 11/04/2023 10:45 PM POLICY SERVICES REPRESENTATIVE PC GASES,BLOOD,ANY COMB OF PH,PCD2,PO2,CO2,HCO2 STAT 11/04/2023 10:45 PM POLICY SERVICES REPRESENTATIVE ED US CRITICAL CARE STAT 11/04/2023 1 0:40 PM POLICY SERVICES REPRESENTATIVE PANEL LIPID Routine 10/10/2021 11:08 AM POLICY SERVICES REPRESENTATIVE from Last 3 Months or Most Recently Relevant to Health Maintenance Results * (ABNORMAL) PANEL BASIC METABOLIC (BMP) (11/16/2023 7:22 AM POLICY SERVICES REPRESENTATIVE) Only the most recent of12 resultswithin the time period is included. Sodium 143 135 - 148 mEq/L [facility] Potassium 3.9 3.5 - 5.3 mEq/L [facility] Chloride 105 92 - 108 mEq/L [facility] CO2 27 22 - 30 mEq/L [facility] AnGap 11 8 - 16 mEq/L [facility] Glucose 87 70 - 100 mg/dL [facility] BUN 23 8 - 23 mg/dL [facility] Creatinine 1.19(H) 0.50 - 1.00 mg/dL [facility] Calcium 9.4 8.8 - 10.2 mg/dL [facility] eGFR (2020 CKD-EPI) 46(L) >=60 ml/min/1.7 3m2 [facility] Comment: The estimated glomerular filtration rate (eGFR) was calculated using the CKD-EPI 2020 creatinine equation, which does not include race as a factor. This equation is validated in individuals 18 years of age and older, and eGFR is normalized to a body surface area of 1.73m^2. Blood 11/16/2023 7:22 AM POLICY SERVICES REPRESENTATIVE 11/16/2023 7:43 AM POLICY SERVICES REPRESENTATIVE Jesusita Aiken APRN, CNP LABORATO RY [facility] [address] [address] * POC GLUCOSE (11/16/2023 6:58 AM POLICY SERVICES REPRESENTATIVE) Only the most recent of42 resultswithin the time period is included. POC Glucose 84 70 - 100 mg/dL [facility] [place] - POINT OF CARE Blood 11/16/2023 6:58 AM POLICY SERVICES REPRESENTATIVE Devin Dougherty MD LABORATORY [facility] - POINT OF CARE [address] [place] [id number], * PHOSPHORUS (11/11/2023 6:09 AM POLICY SERVICES REPRESENTATIVE) Only the most recent of7 resultswithin the time period is included. Phosphorus 3.5 2.5 - 4.5 mg/dL [facility] Blood 11/11/2023 6:09 AM POLICY SERVICES REPRESENTATIVE 11/11/2023 6:36 AM POLICY SERVICES REPRESENTATIVE Quinn Covarrubias MD LABORATORY Performing Organization Address City/[facility]/ZIP Co de Phone Number [facility] [address] [address] * MAGNESIUM (11/11/2023 6:09 AM POLICY SERVICES REPRESENTATIVE) Only the most recent of8 resultswithin the time period is included. Pathologist [facility] Magnesium 2.2 1.6 - 2.4 mg/dL [facility] Blood 11/11/2023 6:09 AM POLICY SERVICES REPRESENTATIVE 11/11/2023 6:36 AM POLICY SERVICES REPRESENTATIVE Quinn Covarrubias MD LABORATORY Performing Organization Address City/[facility] Co de Phone Number [facility] [address] [address] * (ABNORMAL) CBC WITH PLATELET (11/11/2023 6:09 AM POLICY SERVICES REPRESENTATIVE) Only the most recent of7 resultswithin the time period is included. Pathologist [facility] WBC 5.60 4.00 - 10.00 k/cmm [facility] RBC 3.80(L) 3.90 - 5.20 m/cmm [facility] Hgb 9.5(L) 11.5 - 15.7 g/dL [facility] Hematocrit 31.4(L) 34.0 - 45.0 % [facility] MCV 82.6 80.0 - 100.0 fL [facility] MCH 25.0 25.0 - 32.0 pg [facility] MCHC 30.3(L) 31.0 - 36.0 g/dL [facility] RDW 16.1(H) 11.5 - 14.5 % [facility] Plt 275 150 - 400 k/cmm [facility] MPV 11.8 6.5 - 12.5 fL [facility] Blood 11/11/2023 6:09 AM POLICY SERVICES REPRESENTATIVE 11/11/2023 6:36 AM POLICY SERVICES REPRESENTATIVE Quinn Covarrubias MD LABORATORY Performing Organization Address City/[facility]/ZIP Co de Phone Number [address] [address] * ANTI XA ASSAY LMW HEPARIN (11/09/2023 2:18 PM POLICY SERVICES REPRESENTATIVE) Anti XA LMW 0.32 IU/mL [facility] Comment: Anti Xa Assay LMW Heparin Therapeutic Ranges: 0.4-1.1 IU/mL for twice daily 1.0-2.0 IU/mL for once daily Blood 11/09/2023 2:18 PM POLICY SERVICES REPRESENTATIVE 11/09/2023 2:29 PM POLICY SERVICES REPRESENTATIVE Quinn Covarrubias MD LABORATORY Performing Organization Address [facility] Co de Phone Number [address] [address] * XR FOOT RIGHT 3 V AP/OBL/LAT* (11/09/2023 10:36 AM POLICY SERVICES REPRESENTATIVE) Anatomical Region Laterality Modality Foot Computed Radiogr aphy 11/09/2023 10:4 7 AM POLICY SERVICES REPRESENTATIVE Impressions 11/09/2023 10:50 AM POLICY SERVICES REPRESENTATIVE Impression: No acute osseous abnormality. Generalized osteopenia. Reading Radiologist: Angela Camp Narrative 11/09/2023 10:50 AM POLICY SERVICES REPRESENTATIVE Technique: XR FOOT RIGHT 3 V AP/OBL/LAT* [...] osteopenia. Reading Radiologist: Angela Camp Jesusita Larawuyoh METAL BONDING ASSEMBLER, BOOK BINDER RAD XRAY * TELEMETRY STRIPS (11/09/2023 8:48 AM POLICY SERVICES REPRESENTATIVE) Only the most recent of12 resultswithin the time period is included. Narrative 11/09/2023 8:48 AM POLICY SERVICES REPRESENTATIVE Ordered by an unspecified provider. Provider Unknown RAD ECHO * (ABNORMAL) VALPROATE (DEPAKOTE) LEVEL (11/09/2023 5:41 AM POLICY SERVICES REPRESENTATIVE) Valproate 31.8(L) 50.0 - 100.0 mcg/mL [facility] Blood 11/09/2023 5:41 AM POLICY SERVICES REPRESENTATIVE 11/09/2023 8:19 AM POLICY SERVICES REPRESENTATIVE Quinn Covarrubias MD LABORATORY [facility] [address] [address] * XR CHEST 1 VIEW AP OR PA* (11/08/2023 6:30 AM POLICY SERVICES REPRESENTATIVE) Only the most recent of2 resultswithin the time period is included. Anatomical Region Laterality Modality Chest Computed Radiogr aphy 11/08/2023 6:56 AM POLICY SERVICES REPRESENTATIVE Impressions 11/08/2023 7:24 AM POLICY SERVICES REPRESENTATIVE Impression: Stable chest. I have personally reviewed the image(s) and initial interpretation, and I agree with the findings as documented by the resident/fellow. Reading Radiologist: Ronal Hidalgo Reading Resident: Laith Berkowitz Narrative 11/08/2023 7:24 AM POLICY SERVICES REPRESENTATIVE Technique: XR CHEST 1 VIEW AP OR [...] VIEWS PA + LAT* (11/07/2023 10:07 AM POLICY SERVICES REPRESENTATIVE) Anatomical Region Laterality Modality Chest Computed Radiogr aphy 11/07/2023 10:0 9 AM POLICY SERVICES REPRESENTATIVE Impressions 11/07/2023 10:10 AM POLICY SERVICES REPRESENTATIVE Impression: New left basilar opacities with small effusion concerning for developing infection. Reading Radiologist: Phil Contreras Narrative 11/07/2023 10:10 AM POLICY SERVICES REPRESENTATIVE Technique: XR CHEST 2 VIEWS PA + [...] effusion concerning fordeveloping infection. Reading Radiologist: Phil Cnotreras Quinn Covarrubias MD RAD XRAY * PROCALCITONIN (11/07/2023 8:34 AM POLICY SERVICES REPRESENTATIVE) Procalcitonin 0.12 ng/mL [facility] Comment: Results <0.50 ng/mL represent a low risk of severe sepsis and/or septic shock. Results >2.0 ng/mL represent a high risk of severe sepsis and/or septic shock. Blood 11/07/2023 8:34 AM POLICY SERVICES REPRESENTATIVE 11/07/2023 8:40 AM POLICY SERVICES REPRESENTATIVE Quinn Covarrubias MD LABORATORY [facility] [address] [address] * (ABNORMAL) BLOOD GASES (11/06/2023 1:06 PM POLICY SERVICES REPRESENTATIVE) Only the most recent of3 resultswithin the time period is included. PH Jalen 7.36 7.32 - 7.42 [facility] PCO2 Jalen 48 41 - 51 mmHG [facility] PO2 Jalen 86(H) 25 - 40 mmHG [facility] Bicarb Jalen 26 24 - 28 mEq/L [facility] O2 Sat Jalen 96 % [facility] Base Exc Jalen 1.0 -10.0 - 2.0 mEq/L [facility] Blood Venous 11/06/2023 1:06 PM POLICY SERVICES REPRESENTATIVE 11/06/2023 1:10 PM POLICY SERVICES REPRESENTATIVE Narrative [facility] - 11/06/2023 1:16 PM POLICY SERVICES REPRESENTATIVE Draw on Room Air: No O2 LPM (liter/min) Level->4 via mask FiO2 Level: 100 Quinn Covarrubias MD LABORATORY Performing Organization Address City/[facility]/ZIP Co de Phone Number [facility] [address] [address] * (ABNORMAL) ICU MAGNESIUM (11/06/2023 6:31 AM POLICY SERVICES REPRESENTATIVE) Only the most recent of2 resultswithin the time period is included. Magnesium 2.5(H) 1.6 - 2.4 mg/dL [facility] Blood 11/06/2023 6:31 AM POLICY SERVICES REPRESENTATIVE 11/06/2023 7:37 AM POLICY SERVICES REPRESENTATIVE Devin Dougherty MD LABORATORY Performing Organization Address City/[facility]/ZIP Co de Phone Number [facility] [address] [address] * ICU PHOSPHORUS (11/06/2023 6:31 AM POLICY SERVICES REPRESENTATIVE) Only the most recent of2 resultswithin the time period is included. Phosphorus 4.1 2.5 - 4.5 mg/dL [facility] Blood 11/06/2023 6:31 AM POLICY SERVICES REPRESENTATIVE 11/06/2023 7:37 AM POLICY SERVICES REPRESENTATIVE Devin Dougherty MD LABORATORY [facility] [address] [address] * (ABNORMAL) ICU CBC WITH PLATELET (11/06/2023 6:31 AM POLICY SERVICES REPRESENTATIVE) Only the most recent of2 resultswithin the time period is included. WBC 9.06 4.00 - 10.00 k/cmm [facility] RBC 3.77(L) 3.90 - 5.20 m/cmm [facility] Hgb 9.6(L) 11.5 - 15.7 g/dL [facility] Hematocrit 30.8(L) 34.0 - 45.0 % [facility] MCV 81.7 80.0 - 100.0 fL [facility] MCH 25.5 25.0 - 32.0 pg [facility] MCHC 31.2 31.0 - 36.0 g/dL [facility] RDW 15.9(H) 11.5 - 14.5 % [facility] Plt 284 150 - 400 k/cmm [facility] MPV 12.1 6.5 - 12.5 fL [facility] Blood 11/06/2023 6:31 AM POLICY SERVICES REPRESENTATIVE 11/06/2023 7:37 AM POLICY SERVICES REPRESENTATIVE Devin Dougherty MD LABORATORY Performing Organization Address City/[facility] Co de Phone Number [facility] [address] [address] * (ABNORMAL) ICU PANEL BASIC METABOLIC (BMP) (11/06/2023 6:31 AM POLICY SERVICES REPRESENTATIVE) Only the most recent of2 resultswithin the time period is included. Sodium 142 135 - 148 mEq/L [facility] Potassium 3.7 3.5 - 5.3 mEq/L [facility] Chloride 107 92 - 108 mEq/L [facility] CO2 26 22 - 30 mEq/L [facility] AnGap 9 8 - 16 mEq/L [facility] Glucose 148(H) 70 - 100 mg/dL [facility] BUN 12 8 - 23 mg/dL [facility] Creatinine 0.77 0.50 - 1.00 mg/dL [facility] Calcium 8.7(L) 8.8 - 10.2 mg/dL [facility] eGFR (2020 CKD-EPI) 77 >=60 ml/min/1.7 3m2 [facility] Comment: The estimated glomerular filtration rate (eGFR) was calculated using the CKD-EPI 2020 creatinine equation, which does not include race as a factor. This equation is validated in individuals 18 years of age and older, and eGFR is normalized to a body surface area of 1.73m^2. Blood 11/06/2023 6:31 AM POLICY SERVICES REPRESENTATIVE 11/06/2023 7:37 AM POLICY SERVICES REPRESENTATIVE Devin Dougherty MD LABORATORY Performing Organization Address [facility] Co de Phone Number [facility] [address] [address] * PROTHROMBIN (PT) & INR (11/06/2023 6:31 AM POLICY SERVICES REPRESENTATIVE) Only the most recent of3 resultswithin the time period is included. PT 11.4 9.0 - 12.5 sec [facility] INR 1.0 0.8 - 1.1 [facility] Comment: Warfarin Therapeutic Range: Standard Intensity: 2.0 - 3.0 High Intensity: 2.5 - 3.5 Blood 11/06/2023 6:31 AM POLICY SERVICES REPRESENTATIVE 11/06/2023 7:37 AM POLICY SERVICES REPRESENTATIVE Quinn Covarrubias MD LABORATORY Performing Organization Address [facility] Co de Phone Number [facility] [address] [address] * (ABNORMAL) GLYCOSYLATED HGB - A1C (11/06/2023 6:31 AM POLICY SERVICES REPRESENTATIVE) Hemoglobin A1C 8.1(H) 4.0 - 5.6 % [facility] Comment: Increased risk for diabetes (prediabetes): 5.7-6.4% Diabetes: greater than or equal to 6.5% * * In the absence of unequivocal hyperglycemia, diagnosis requires two abnormal test results (i.e. HbA1c and glucose) or two abnormal results from specimens collected at two different timepoints. Estimated Average Glucose 186(H) 68 - 114 [facility] Comment: The ADA recommends reporting an estimated Average Glucose (eAG) with all hemoglobin A1c results using the equation derived from a study of 501 normal diabetic adults. Minority populations were underrepresented and children were not included. The EAG is not equivalent to a fasting glucose. Blood 11/06/2023 6:31 AM POLICY SERVICES REPRESENTATIVE 11/06/2023 11:28 AM POLICY SERVICES REPRESENTATIVE Quinn Covarrubias MD LABORATORY Performing Organization Address City/[facility] Co de Phone Number [address] [address] * (ABNORMAL) POTASSIUM (11/05/2023 4:48 PM POLICY SERVICES REPRESENTATIVE) Potassium 3.2(L) 3.5 - 5.3 mEq/L [facility] Blood 11/05/2023 4:48 PM POLICY SERVICES REPRESENTATIVE 11/05/2023 4:58 PM POLICY SERVICES REPRESENTATIVE Quinn Covarrubias MD LABORATORY Performing Organization Address [facility] Co de Phone Number [address] [address] * CT HEAD NO IV CONTRAST (11/05/2023 11:44 AM POLICY SERVICES REPRESENTATIVE) Only the most recent of3 resultswithin the time period is included. Anatomical Region Laterality Modality Skull Computed Tomogra phy 11/05/2023 12:1 6 PM POLICY SERVICES REPRESENTATIVE Impressions 11/05/2023 12:38 PM POLICY SERVICES REPRESENTATIVE Impression: Stable head CT as compared to the study performed 7 hours earlier. Intra-axial and extra-axial hemorrhage(s) without midline shift or hydrocephalus. The basal cisterns are patent. Reading Radiologist: Ford Fernández 11/05/2023 12:38 PM POLICY SERVICES REPRESENTATIVE Exam: Head CT without contrast, 11/05/2023 Indication: [...] * EKG ADULT (12-LEAD) (11/05/2023 6:38 AM POLICY SERVICES REPRESENTATIVE) 11/05/2023 6:38 AM POLICY SERVICES REPRESENTATIVE Impressions [facility] EKG ORDERS - 11/05/2023 6:38 AM POLICY SERVICES REPRESENTATIVE SINUS RHYTHM RIGHT BUNDLE BRANCH BLOCK ??[120+ ms QRS DURATION, UPRIGHT V1, 40+ ms S IN I/aVL/V4/V5/V6] ABNORMAL ECG P-R Interval 151 ms QRS Interval 128 ms QT Interval 420 ms QTC Interval 462 ms P [place] 9 QRS [place] 27 T Wave [place] 70 Narrative Procedure Note Lauren Mills MD - 11/06/2023 IMPRESSION SINUS RHYTHM RIGHT BUNDLE BRANCH BLOCK [120+ ms QRS DURATION, UPRIGHT V1, 40+ ms S INI/aVL/V4/V5/V6] ABNORMAL ECG P-R Interval 151 ms QRS Interval 128 ms QT Interval 420 ms QTC Interval 462 ms P [place] 9 QRS [place] 27 T Wave [place] 70 Quinn Covarrubias MD EKG [facility] EKG ORDERS * (ABNORMAL) ICU BLOOD GAS (11/05/2023 4:27 AM POLICY SERVICES REPRESENTATIVE) PH Art 7.38 7.35 - 7.45 [facility] PCO2 Art 42 35 - 45 mmHG [facility] PO2 Art 99(H) 75 - 85 mmHG [facility] Bicarb Art 25 22 - 26 mEq/L [facility] O2 Sat Art 98 96 - 99 % [facility] Base Exc Art 0.0 -10.0 - 2.0 mEq/L [facility] Blood Arterial 11/05/2023 4: 27 AM POLICY SERVICES REPRESENTATIVE 11/05/2023 4:34 AM POLICY SERVICES REPRESENTATIVE Devin Dougherty MD LABORATORY Performing Organization Address [facility] Co de Phone Number [facility] [address] [address] * (ABNORMAL) TROP 6H (11/05/2023 4:27 AM POLICY SERVICES REPRESENTATIVE) 6H Trop 51(H) <=14 ng/L [facility] 6H Delta Significan t(A) Not Significant [facility] Blood 11/05/2023 4:27 AM POLICY SERVICES REPRESENTATIVE 11/05/2023 4:35 AM POLICY SERVICES REPRESENTATIVE Devin Dougherty MD LABORATORY Performing Organization Address [facility] Co de Phone Number [facility] [address] [address] * (ABNORMAL) TROP 4H (11/05/2023 2:58 AM POLICY SERVICES REPRESENTATIVE) 4H Trop 39(H) <=14 ng/L [facility] 4H Delta Significan t(A) Not Significant [facility] Blood 11/05/2023 2:58 AM POLICY SERVICES REPRESENTATIVE 11/05/2023 3:48 AM POLICY SERVICES REPRESENTATIVE Devin Dougherty MD LABORATORY Performing Organization Address [facility] Co de Phone Number [facility] [address] [address] * (ABNORMAL) PANEL HEPATIC FUNCTION (11/05/2023 1:32 AM POLICY SERVICES REPRESENTATIVE) Alk Phos 111(H) 35 - 104 IU/L [facility] Total Protein 6.5 6.4 - 8.3 g/dL [facility] Bili Direct na <=0.3 mg/dL [facility] Comment:Direct Bilirubin = < 0.2. Accuracy of result suspect due to lipemia. Albumin 3.8 3.8 - 5.1 g/dL [facility] Bili Total <0.2 <=1.2 mg/dL [facility] ALT (SGPT) na <=33 [facility] Comment:ALT = 15. Accuracy o f result suspect due to lipemia. AST(SGOT) na 5 - 40 [facility] Comment:AST = 27. Accuracy o f result suspect due to lipemia. Blood 11/05/2023 1:32 AM POLICY SERVICES REPRESENTATIVE 11/05/2023 1:32 AM POLICY SERVICES REPRESENTATIVE Devin Dougherty MD LABORATORY Performing Organization Address City/[facility]/ZIP Co de Phone Number [facility] [address] [address] * FIBRINOGEN (11/05/2023 1:32 AM POLICY SERVICES REPRESENTATIVE) Only the most recent of2 resultswithin the time period is included. Fibrinogen 262 200 - 400 mg/dL [facility] Blood 11/05/2023 1:32 AM POLICY SERVICES REPRESENTATIVE 11/05/2023 1:32 AM POLICY SERVICES REPRESENTATIVE Devin Dougherty MD LABORATORY Performing Organization Address [facility] Co de Phone Number [facility] [address] [address] * CK, TOTAL (11/05/2023 1:32 AM POLICY SERVICES REPRESENTATIVE) CK 56 26 - 192 IU/L [facility] Blood 11/05/2023 1:32 AM POLICY SERVICES REPRESENTATIVE 11/05/2023 1:32 AM POLICY SERVICES REPRESENTATIVE Devin Dougherty MD LABORATORY Performing Organization Address [facility] Co de Phone Number [facility] [address] [address] * PTT (APTT) (11/05/2023 1:32 AM POLICY SERVICES REPRESENTATIVE) Only the most recent of2 resultswithin the time period is included. APTT 26.0 25.0 - 37.0 sec [facility] Blood 11/05/2023 1:32 AM POLICY SERVICES REPRESENTATIVE 11/05/2023 1:32 AM POLICY SERVICES REPRESENTATIVE Devin Dougherty MD LABORATORY Performing Organization Address [facility] Co de Phone Number [facility] [address] [address] * (ABNORMAL) TROP 2H (11/05/2023 1:18 AM POLICY SERVICES REPRESENTATIVE) 2H Trop 18(H) <=14 ng/L [facility] 2H Delta Indeterminate Not Significant [facility] Blood 11/05/2023 1:18 AM POLICY SERVICES REPRESENTATIVE 11/05/2023 1:45 AM POLICY SERVICES REPRESENTATIVE Devin Dougherty MD LABORATORY Performing Organization Address [facility] de Phone Number [facility] [address] [address] * LACTATE (LACTIC ACID) (11/05/2023 1:18 AM POLICY SERVICES REPRESENTATIVE) Only the most recent of2 resultswithin the time period is included. Lactate 1.9 0.7 - 2.1 mmol/L [facility] Blood 11/05/2023 1:18 AM POLICY SERVICES REPRESENTATIVE 11/05/2023 1:27 AM POLICY SERVICES REPRESENTATIVE Narrative [facility] - 11/05/2023 1:45 AM POLICY SERVICES REPRESENTATIVE Send specimen on ice! Devin Dougherty MD LABORATORY Performing Organization Address [facility] de Phone Number [facility] [address] [address] * CALCIUM,IONIZED (11/05/2023 1:18 AM POLICY SERVICES REPRESENTATIVE) PH 7.37 7.32 - 7.42 [facility] ICA, Actual 4.82 4.40 - 5.20 mg/dL [facility] ICA, pH Corrected 4.75 4.40 - 5.20 mg/dL [facility] Blood 11/05/2023 1:18 AM POLICY SERVICES REPRESENTATIVE 11/05/2023 1:27 AM POLICY SERVICES REPRESENTATIVE Narrative [facility] - 11/05/2023 1:44 AM POLICY SERVICES REPRESENTATIVE Send specimen on ice! Devin Dougherty MD LABORATORY [facility] [address] [place] [address] * CT HEAD-NECK - ANGIO - W/IV CON (11/05/2023 12:09 AM POLICY SERVICES REPRESENTATIVE) Anatomical Region Laterality Modality Skull Computed Tomogra phy 11/05/2023 12:2 1 AM POLICY SERVICES REPRESENTATIVE Impressions 11/05/2023 10:22 AM POLICY SERVICES REPRESENTATIVE Impression: ?? Slightly increased size of the [...] Fernández Resident: Laith Berkowitz 11/05/2023 10:22 AM POLICY SERVICES REPRESENTATIVE CT angiogram of the Head with contrast, [...] and reviewed by the Radiologist using the [employer] workstation, and these images were archived in [...] and reviewed by the Radiologist using the [employer] workstation,and these images were archived in the [...] resident/fellow. Reading Radiologist: Ford Fernández Reading Resident: Laiht Berkowitz Devin Dougherty MD RAD CT NEURO * (ABNORMAL) URINALYSIS,TOTAL (11/04/2023 11:55 PM POLICY SERVICES REPRESENTATIVE) Color COLORLESS YELLOW [facility] Appearance CLEAR CLEAR [facility] Urine Glucose 100(A) NEGATIVE mg/dL [facility] Bili UA NEGATIVE NEGATIVE [facility] Ketones NEGATIVE NEGATIVE [facility] Specific [place] 1.036(A) 1.003 - 1.030 [facility] Blood Ur NEGATIVE Neg-Trace [facility] PH Urine 7.5(H) 5.0 - 7.0 [facility] Protein Ur TRACE Neg-Trace [facility] Urobilinogen NORMAL NORMAL EU/dL [facility] Nitrite Ur NEGATIVE NEGATIVE [facility] Leuk Est NEGATIVE Neg-Trace [facility] WBC Ur 0-5 0 - 5 perHPF [facility] RBC Ur 0-3 0 - 3 perHPF [facility] SQ EPITH 0-5 0 - 5 perHPF [facility] Urinalysis Performed at: [facility] Urine 11/04/2023 11:5 5 PM POLICY SERVICES REPRESENTATIVE 11/05/2023 12:03 AM POLICY SERVICES REPRESENTATIVE Devin Dougherty MD LABORATORY [facility] [address] [place] [address] * PF INSERT CATH,ART,PERCUT,SHORTTERM (11/04/2023 11:43 PM POLICY SERVICES REPRESENTATIVE) Narrative Rito Graf MD - 11/04/2023 11:43 PM POLICY SERVICES REPRESENTATIVE Priscilla Holcomb MD ? 11/04/2023 11:44 PM Arterial Line Performed by: Priscilla Holcomb MD Authorized by: Rito Graf MD ?? Consent: ??Consent obtained: ??Verbal ??Consent given by: ??Patient ??Risks discussed: ??Pain, bleeding and infection [place] protocol: ??Patient identity confirmed: ??Verbally with patient, [...] * ED EKG (12-LEAD) (11/04/2023 11:25 PM POLICY SERVICES REPRESENTATIVE) 11/04/2023 11:2 5 PM POLICY SERVICES REPRESENTATIVE Impressions [facility] EKG ORDERS - 11/04/2023 11:25 PM POLICY SERVICES REPRESENTATIVE SINUS TACHYCARDIA RIGHT BUNDLE BRANCH BLOCK ??[120+ ms QRS DURATION, UPRIGHT V1, 40+ ms S IN I/aVL/V4/V5/V6] ABNORMAL ECG P-R Interval 173 ms QRS Interval 127 ms QT Interval 395 ms QTC Interval 458 ms P [place] 57 QRS [place] 34 T Wave [place] 43 Narrative Procedure Note Vineet Díaz MD - 11/05/2023 IMPRESSION SINUS TACHYCARDIA RIGHT BUNDLE BRANCH BLOCK [120+ ms QRS DURATION, UPRIGHT V1, 40+ ms S INI/aVL/V4/V5/V6] ABNORMAL ECG P-R Interval 173 ms QRS Interval 127 ms QT Interval 395 ms QTC Interval 458 ms P [place] 57 QRS [place] 34 T Wave [place] 43 Devin Dougherty MD EKG [facility] EKG ORDERS * CT SPINE THORACIC NO IV CON (11/04/2023 11:05 PM POLICY SERVICES REPRESENTATIVE) Anatomical Region Laterality Modality Thoracic Spine Computed Tomogra phy 11/04/2023 11:2 3 PM POLICY SERVICES REPRESENTATIVE Impressions 11/05/2023 9:22 AM POLICY SERVICES REPRESENTATIVE Impression: 1. No suspected acute fracture or dislocation of the thoracic or lumbar spine. ?? 2. Dokr-tu-nbfbfhcr lumbar spondylosis without suspected high-grade spinal canal or neural foraminal narrowing. I have personally reviewed the image(s) and initial interpretation, and I agree with the findings as documented by the resident/fellow. Reading Radiologist: Ford Fernández Reading Resident: Laith Berkowitz Narrative 11/05/2023 9:22 AM POLICY SERVICES REPRESENTATIVE Exam: Thoracic and Lumbar Spine CT Reconstructions, [...] dislocation of the thoracic or lumbarspine. 2. Ktnd-fj-hunwjbep lumbar spondylosis without suspected high-grade spinalcanal or neural foraminal narrowing. I have personally reviewed the image(s) and initial interpretation, and Iagree with the findings as documented by the resident/fellow. Reading Radiologist: Ford Fernández Resident: Laith Berkowitz Devin Dougherty MD RAD CT NEURO * CT SPINE LUMBAR NO IV CON (11/04/2023 11:05 PM POLICY SERVICES REPRESENTATIVE) Anatomical Region Laterality Modality Lumbar Spine Computed Tomogra phy 11/04/2023 11:2 3 PM POLICY SERVICES REPRESENTATIVE Impressions 11/05/2023 9:22 AM POLICY SERVICES REPRESENTATIVE Impression: 1. No suspected acute fracture or dislocation of the thoracic or lumbar spine. ?? 2. Cenl-fq-oqwlpcob lumbar spondylosis without suspected high-grade spinal canal or neural foraminal narrowing. I have personally reviewed the image(s) and initial interpretation, and I agree with the findings as documented by the resident/fellow. Reading Radiologist: Ford Fernández Resident: Laith Berkowitz Narrative 11/05/2023 9:22 AM POLICY SERVICES REPRESENTATIVE Exam: Thoracic and Lumbar Spine CT Reconstructions, [...] dislocation of the thoracic or lumbarspine. 2. Lteo-lx-rhbvqfkk lumbar spondylosis without suspected high-grade spinalcanal or neural foraminal narrowing. I have personally reviewed the image(s) and initial interpretation, and Iagree with the findings as documented by the resident/fellow. Reading Radiologist: Ford Fernández Reading Resident: Laith Berkowitz Devin Dougherty MD RAD CT NEURO * CT SPINE CERVICAL NO IV CON (11/04/2023 11:05 PM POLICY SERVICES REPRESENTATIVE) Anatomical Region Laterality Modality Cervical Spine Computed Tomogra phy 11/04/2023 11:2 0 PM POLICY SERVICES REPRESENTATIVE Impressions 11/05/2023 8:27 AM POLICY SERVICES REPRESENTATIVE Impression: ?? 1. No acute fracture or traumatic subluxation of the cervical vertebrae. 2. Mild degenerative changes of the cervical spine without high-grade spinal canal or neural foraminal narrowing. I have personally reviewed the image(s) and initial interpretation, and I agree with the findings as documented by the resident/fellow. Reading Radiologist: Ford Fernández Reading Resident: Laith Berkowitz 11/05/2023 8:27 AM POLICY SERVICES REPRESENTATIVE Exam: Cervical spine CT without contrast, 11/04/2023 [...] spinal canal narrowing. C5-6: Mild left and fzdg-sp-ozamdrmr right neural foraminal narrowing. Borderline mild spinal [...] spinal canal narrowing. C5-6: Mild left and xxnn-ke-ftawtjqg right neural foraminal narrowing.Borderline mild spinal canal [...] Radiologist: Ford Fernández Reading Resident: Laith Berkowitz Deivn Dougherty MD RAD CT NEURO * CT CHEST/ABD/PELVIS W/IV CONT (11/04/2023 11:05 PM POLICY SERVICES REPRESENTATIVE) Anatomical Region Laterality Modality Chest Computed Tomogra phy 11/04/2023 11:2 9 PM POLICY SERVICES REPRESENTATIVE Impressions 11/05/2023 6:33 AM POLICY SERVICES REPRESENTATIVE Impression: 1. No acute traumatic sequelae in [...] Reading Resident: Laith Berkowitz 11/05/2023 6:33 AM POLICY SERVICES REPRESENTATIVE Comparison: None Indication: Trauma (STAB) ?? Technique: [...] ED CHEMISTRY LABS(NA,K,CL,CO2,GLU,CREAT,CA-IONIZED,ANION GAP) (11/04/2023 10:48 PM POLICY SERVICES REPRESENTATIVE) Sodium 144 135 - 148 mEq/L [facility] Chloride 106 92 - 108 mEq/L [facility] AnGap 11 8 - 16 mEq/L [facility] Glucose 234(H) 70 - 100 mg/dL [facility] ICA, Actual 4.52 4.40 - 5.20 mg/dL [facility] ICA, pH Corrected 4.51 4.40 - 5.20 mg/dL [facility] Creatinine 0.81 0.50 - 1.00 mg/dL [facility] BICARB 27(H) 22 - 26 mEq/L [facility] eGFR (2020 CKD-EPI) 73 >=60 ml/min/1.7 3m2 [facility] Comment: The estimated glomerular filtration rate (eGFR) was calculated using the CKD-EPI 2020 creatinine equation, which does not include race as a factor. This equation is validated in individuals 18 years of age and older, and eGFR is normalized to a body surface area of 1.73m^2. Potassium 2.8(AA) 3.5 - 5.3 mEq/L [facility] Comment:Critcal Result Low Blood 11/04/2023 10:4 8 PM POLICY SERVICES REPRESENTATIVE 11/04/2023 10:49 PM POLICY SERVICES REPRESENTATIVE Narrative [facility] - 11/04/2023 10:55 PM POLICY SERVICES REPRESENTATIVE Critical value for Potassium called to and read back by Rafa Hutchins RN in ??EDSTAB 2 at 11/04/2023 22:55:31 POLICY SERVICES REPRESENTATIVE by Eleni Spring MLS. Devin Dougherty MD LABORATORY Performing Organization Address City/[facility] Co de Phone Number [address] [address] * (ABNORMAL) ED HEMOGLOBIN TOTAL (ED ONLY) (11/04/2023 10:48 PM POLICY SERVICES REPRESENTATIVE) Hgb 10.3(L) 11.5 - 15.7 g/dL [facility] Blood 11/04/2023 10:4 8 PM POLICY SERVICES REPRESENTATIVE 11/04/2023 10:49 PM POLICY SERVICES REPRESENTATIVE Devin Dougherty MD LABORATORY Performing Organization Address [facility] Co de Phone Number [address] [address] * ED INR (11/04/2023 10:45 PM POLICY SERVICES REPRESENTATIVE) ED INR 1.0 0.8 - 1.1 [facility] Comment: Warfarin Therapeutic Range: Standard Intensity: 2.0 - 3.0 High Intensity: 2.5 - 3.5 Blood 11/04/2023 10:4 5 PM POLICY SERVICES REPRESENTATIVE 11/04/2023 10:48 PM POLICY SERVICES REPRESENTATIVE Devin Dougherty MD LABORATORY Performing Organization Address [facility] Co de Phone Number [facility] [address] [address] * EXTRA TUBE - LIGHT GREEN (11/04/2023 10:45 PM POLICY SERVICES REPRESENTATIVE) LIGHT GREEN TUBE Stored [facility] Comment:Green tubes ([place] Heparin) are stored in the lab for 3 days from the collection date. Blood 11/04/2023 10:4 5 PM POLICY SERVICES REPRESENTATIVE 11/04/2023 10:50 PM POLICY SERVICES REPRESENTATIVE Devin Dougherty MD LABORATORY Performing Organization Address [facility] Co de Phone Number [facility] [address] [address] * EXTRA TUBE - SST (11/04/2023 10:45 PM POLICY SERVICES REPRESENTATIVE) SST TUBE Stored [facility] Comment:SST tubes (Serum Sep arator) are stored in the lab for 3 days from the collection date. Blood 11/04/2023 10:4 5 PM POLICY SERVICES REPRESENTATIVE 11/04/2023 10:50 PM POLICY SERVICES REPRESENTATIVE Devin Dougherty MD LABORATORY Performing Organization Address [facility] Co de Phone Number [facility] [address] [address] * HS TROPONIN (11/04/2023 10:45 PM POLICY SERVICES REPRESENTATIVE) HS Troponin I 10 <=14 ng/L [facility] Blood 11/04/2023 10:4 5 PM POLICY SERVICES REPRESENTATIVE 11/04/2023 11:05 PM POLICY SERVICES REPRESENTATIVE Narrative [facility] - 11/04/2023 11:36 PM POLICY SERVICES REPRESENTATIVE First Occurrence of the Troponin order is to be drawn Stat by Nursing staff on the unit. Devin Dougherty MD LABORATORY [facility] [address] [address] * (ABNORMAL) CBC WITH PLTS/AUTO DIFF (11/04/2023 10:45 PM POLICY SERVICES REPRESENTATIVE) WBC 9.42 4.00 - 10.00 k/cmm [facility] RBC 3.86(L) 3.90 - 5.20 m/cmm [facility] Hgb 9.8(L) 11.5 - 15.7 g/dL [facility] Hematocrit 31.8(L) 34.0 - 45.0 % [facility] MCV 82.4 80.0 - 100.0 fL [facility] MCH 25.4 25.0 - 32.0 pg [facility] MCHC 30.8(L) 31.0 - 36.0 g/dL [facility] RDW 15.3(H) 11.5 - 14.5 % [facility] Plt 292 150 - 400 k/cmm [facility] MPV 11.1 6.5 - 12.5 fL [facility] Automated Abs Neutrophil 5.80 1.70 - 6.50 k/cmm [facility] Comment:Preliminary ANC, Fin al Result to Follow Abs Immature Granulocyte 0.07 0.00 - 0.09 k/cmm [facility] Comment:The Immature Granulo cyte Absolute count contains metamyelocytes and myelocytes. Abs Neutrophil 5.80 1.70 - 6.50 k/cmm [facility] Abs Lymphocyte 2.33 0.80 - 4.00 k/cmm [facility] Abs Monocyte 0.88 0.20 - 1.00 k/cmm [facility] Abs Eosinophil 0.27 0.00 - 0.60 k/cmm [facility] Abs Basophil 0.07 0.00 - 0.20 k/cmm [facility] Blood 11/04/2023 10:4 5 PM POLICY SERVICES REPRESENTATIVE 11/04/2023 11:05 PM POLICY SERVICES REPRESENTATIVE Devin Dougherty MD LABORATORY [facility] [address] [address] * PRECAUTIONARY TUBE (11/04/2023 10:45 PM POLICY SERVICES REPRESENTATIVE) Prec Tube Precautionary Blood Bank Specimen Received. [facility] Blood 11/04/2023 10:4 5 PM POLICY SERVICES REPRESENTATIVE 11/04/2023 10:52 PM POLICY SERVICES REPRESENTATIVE Devin Dougherty MD LAB TRANSFUSION SER VICES Performing Organization Address [facility] Co de Phone Number [address] [address] * (ABNORMAL) ANTI XA HEPARIN UNFRACTIONATED (11/04/2023 10:45 PM POLICY SERVICES REPRESENTATIVE) Anti XA Hep U <0.04(L) 0.30 - 0.70 IU/mL [facility] Blood 11/04/2023 10:4 5 PM POLICY SERVICES REPRESENTATIVE 11/04/2023 11:05 PM POLICY SERVICES REPRESENTATIVE Devin Dougherty MD LABORATORY Performing Organization Address [facility] Co de Phone Number [address] [address] * ED US CRITICAL CARE (11/04/2023 10:40 PM POLICY SERVICES REPRESENTATIVE) Anatomical Region Laterality Modality Ultrasound Narrative 11/04/2023 11:28 PM POLICY SERVICES REPRESENTATIVE ED Trauma eFAST Ultrasound Indications: Suspicion of [...] Advance Directives For more information, please contact: [phone] Latest Code Status on File Code Status [...] Code Status With Whom? Patient Care Teams Boat Person Relationship Specialty Start Date End Date Eloise Reeves [address] [place] [address] PCP - General Family Medicine 11/06/23
--- OUTSIDE RECORDS SUMMARY | 2023-12-11 01:29 | XMS_ITS | Encounter Summary ---
Author Name Unknown Organization [facility] Address [address] [place] [phone] Phone Care Team Providers Care Cutter Machine Name Role Phone Eloise Reeves DO Primary [...] Coronavirus/COVID-19? No / Unsure 11/04/2023 10:48 PM GRAIN MIXER documented as of this encounter Plan of Treatment Not on file documented as of this encounter Procedures Procedure Name Priority Date/Time Associated Diagnosis Comments TELEMETRY STRIPS 11/09/2023 1:21 AM GRAIN MIXER documented in this encounter Results * TELEMETRY STRIPS (11/09/2023 1:21 AM GRAIN MIXER) Narrative 11/09/2023 1:21 AM GRAIN MIXER Ordered by an unspecified provider. Provider Unknown RAD ECHO documented in this encounter Visit Diagnoses Not on filedocumented in this encounter Care Teams Cutter Machine Relationship Specialty Start Date End Date Eloise Reeves [address] [place] [address] PCP - General Family Medicine 11/06/23 documented as of this encounter
--- OUTSIDE RECORDS SUMMARY | 2023-12-11 01:29 | XMS_ITS | Encounter Summary ---
Author Name Unknown Organization [facility] Address [address] [place] [phone] Phone Care Team Providers Care Physicist Light And Optics Name Role Phone Eloise Reeves DO Primary Care Provider [phone] Encounter Details Date Type Department Care Team [...] Coronavirus/COVID-19? No / Unsure 11/04/2023 10:48 PM PIPING BLOCKER documented as of this encounter Plan of Treatment Not on file documented as of this encounter Procedures Procedure Name Priority Date/Time Associated Diagnosis Comments TELEMETRY STRIPS 11/09/2023 8:48 AM PIPING BLOCKER documented in this encounter Results * TELEMETRY STRIPS (11/09/2023 8:48 AM PIPING BLOCKER) Narrative 11/09/2023 8:48 AM PIPING BLOCKER Ordered by an unspecified provider. Provider Unknown RAD ECHO documented in this encounter Visit Diagnoses Not on filedocumented in this encounter Care Teams Physicist Light And Optics Relationship Specialty Start Date End Date Eloise Reeves DO [address] [place] [address] PCP - General Family Medicine 11/06/23 documented as of this encounter
--- OUTSIDE RECORDS SUMMARY | 2023-12-11 01:29 | XMS_ITS | Encounter Summary ---
Author Name Unknown Organization [facility] Address [address] [place] [phone] Phone Care Team Providers Care Supervisor Body Assembly Name Role Phone Eloise Reeves DO Primary Care Provider [phone] Encounter Details Date Type Department Care Team [...] Coronavirus/COVID-19? No / Unsure 11/04/2023 10:48 PM NEURODIAGNOSTIC TECHNOLOGIST documented as of this encounter Plan of Treatment Not on file documented as of this encounter Procedures Procedure Name Priority Date/Time Associated Diagnosis Comments TELEMETRY STRIPS 11/08/2023 9:49 AM NEURODIAGNOSTIC TECHNOLOGIST documented in this encounter Results * TELEMETRY STRIPS (11/08/2023 9:49 AM NEURODIAGNOSTIC TECHNOLOGIST) Narrative 11/08/2023 9:49 AM NEURODIAGNOSTIC TECHNOLOGIST Ordered by an unspecified provider. Provider Unknown RAD ECHO documented in this encounter Visit Diagnoses Not on filedocumented in this encounter Care Teams Supervisor Body Assembly Relationship Specialty Start Date End Date Eloise Reeves DO [address] [place] [address] PCP - General Family Medicine 11/06/23 documented as of this encounter
--- OUTSIDE RECORDS SUMMARY | 2023-12-11 01:29 | XMS_ITS | Encounter Summary ---
Author Name Unknown Organization [facility] Address [address] [place] [address] Phone Care Team Providers Care Package Drier Name Role Phone Eloise Reeves DO Primary [...] Coronavirus/COVID-19? No / Unsure 11/04/2023 10:48 PM CASINO GAMING WORKER documented as of this encounter Plan of Treatment Not on file documented as of this encounter Procedures Procedure Name Priority Date/Time Associated Diagnosis Comments TELEMETRY STRIPS 11/07/2023 7:31 PM CASINO GAMING WORKER documented in this encounter Results * TELEMETRY STRIPS (11/07/2023 7:31 PM CASINO GAMING WORKER) Narrative 11/07/2023 7:31 PM CASINO GAMING WORKER Ordered by an unspecified provider. Provider Unknown RAD ECHO documented in this encounter Visit Diagnoses Not on filedocumented in this encounter Care Teams Package Drier Relationship Specialty Start Date End Date Eloise Reeves DO [address] [place] [address] PCP - General Family Medicine 11/06/23 documented as of this encounter
--- OUTSIDE RECORDS SUMMARY | 2023-12-11 01:29 | XMS_ITS | Encounter Summary ---
Author Name Unknown Organization [facility] Address [address] [place] [phone] Phone Care Team Providers Care Nonprofit Director Name Role Phone Eloise Reeves DO Primary [...] No / Unsure 11/04/2023 10:48 PM APPAREL EMBROIDERY DIGITIZER documented as of this encounter Plan of Treatment Not on file documented as of this encounter Procedures Procedure Name Priority Date/Time Associated Diagnosis Comments TELEMETRY STRIPS 11/07/2023 1:07 AM APPAREL EMBROIDERY DIGITIZER documented in this encounter Results * TELEMETRY STRIPS (11/07/2023 1:07 AM APPAREL EMBROIDERY DIGITIZER) Narrative 11/07/2023 1:07 AM APPAREL EMBROIDERY DIGITIZER Ordered by an unspecified provider. Provider Unknown RAD ECHO documented in this encounter Visit Diagnoses Not on filedocumented in this encounter Care Teams Nonprofit Director Relationship Specialty Start Date End Date Eloise Reeves DO [address] [place] [address] PCP - General Family Medicine 11/06/23 documented as of this encounter
--- OUTSIDE RECORDS SUMMARY | 2023-12-11 01:29 | XMS_ITS | Encounter Summary ---
Author Name Unknown Organization [facility] Address [address] [place] [address] Phone Care Team Providers Care Academic Success Coordinator Name Role Phone Eloise Reeves DO Primary [...] Coronavirus/COVID-19? No / Unsure 11/04/2023 10:48 PM DIRECTOR OF SUPPLY CHAIN documented as of this encounter Plan of Treatment Not on file documented as of this encounter Procedures Procedure Name Priority Date/Time Associated Diagnosis Comments TELEMETRY STRIPS 11/08/2023 2:59 AM DIRECTOR OF SUPPLY CHAIN documented in this encounter Results * TELEMETRY STRIPS (11/08/2023 2:59 AM DIRECTOR OF SUPPLY CHAIN) Narrative 11/08/2023 2:59 AM DIRECTOR OF SUPPLY CHAIN Ordered by an unspecified provider. Provider Unknown RAD ECHO documented in this encounter Visit Diagnoses Not on filedocumented in this encounter Care Teams Academic Success Coordinator Relationship Specialty Start Date End Date Eloise Reeves [address] [place] [address] PCP - General Family Medicine 11/06/23 documented as of this encounter
--- OUTSIDE RECORDS SUMMARY | 2023-12-11 01:29 | XMS_ITS | Encounter Summary ---
Author Name Unknown Organization [facility] Address [address] [place] [address] Phone Care Team Providers Care Welder Repair Name Role Phone Eloise Reeves DO Primary [...] Coronavirus/COVID-19? No / Unsure 11/04/2023 10:48 PM PRINTER SMALL PRINT SHOP documented as of this encounter Plan of Treatment Not on file documented as of this encounter Procedures Procedure Name Priority Date/Time Associated Diagnosis Comments TELEMETRY STRIPS 11/07/2023 9:29 AM PRINTER SMALL PRINT SHOP documented in this encounter Results * TELEMETRY STRIPS (11/07/2023 9:29 AM PRINTER SMALL PRINT SHOP) Narrative 11/07/2023 9:29 AM PRINTER SMALL PRINT SHOP Ordered by an unspecified provider. Provider Unknown RAD ECHO documented in this encounter Visit Diagnoses Not on filedocumented in this encounter Care Teams Welder Repair Relationship Specialty Start Date End Date Eloise Reeves [address] [place] [address] PCP - General Family Medicine 11/06/23 documented as of this encounter
--- OUTSIDE RECORDS SUMMARY | 2023-12-11 01:29 | XMS_ITS | Encounter Summary ---
Author Name Unknown Organization [facility] Address [address] [place] [address] Phone Care Team Providers Care Human Relations Manager Name Role Phone Eloise Reeves DO Primary Care Provider Reason for Referral * Consult/Test/Treat (Routine) - Closed Specialty Diagnoses / Procedures Referred By Selma bhandari Referred To Contact Physical Medicine and Rehab / PHYSICAL MEDICINE AND REHAB Diagnoses Fall, initial encounter SDH (subdural hematoma) ([facility]) SAH (subarachnoid hemorrhage) ([facility]) Traumatic brain injury with loss of consciousness, initial encounter ([facility]) Jesusita Aiken APRN, DINKEY BRAKEMAN [address] [place] [address] [facility] Pm&R Cl [address] [address] Referral ID Status Reason Start Date Expiration Date Visits Re quested Visits Authorized [id number] Closed 11/08/2023 11/07/2024 1 1 ITAL MEDICAL ASSISTANT Reason for Visit * Reason Comments Fall * Auth/Cert (Routine) Specialty Diagnoses / Procedures Referred By Contjerrod t Referred To Contact SURGERY Diagnoses SDH (subdural hematoma) ([facility]) Fall, initial encounter Tariq Bobo MD [address] [facility] [id number] [address] [place] [address] [address] [place] [address] Referral ID Status Reason Start Date Expiration Date Visits Re quested Visits Authorized [id number] 1 1 Encounter Details Date Type Department Care Team (Latest Contact Info) Description 11/04/2023 10:39 PM HOSPITAL MEDICAL ASSISTANT - 11/16/2023 9:19 AM HOSPITAL MEDICAL ASSISTANT Hospital Encounter [facility] Surgery/Trauma/Kimmie ro [address] [place], [place] [id number] Devin Dougherty MD [address] [facility] [place] [address] Quinn Covarrubias MD [address] [place] [address] Gregg Dexter MD [address] [facility] [address] [place] [address] Fall, initial encounter Discharge Disposition: [...] Coronavirus/COVID-19? No / Unsure 11/04/2023 10:48 PM HOSPITAL MEDICAL ASSISTANT documented as of this encounter Last Filed Vital Signs Vital Sign Reading Time Taken Comments Blood Pressure 148/51 11/16/2023 4:25 AM HOSPITAL MEDICAL ASSISTANT Pulse 61 11/16/2023 4:25 AM HOSPITAL MEDICAL ASSISTANT Temperature 36.6 ??C (97.8 ??F) 11/16/2023 4:25 AM CS T Respiratory Rate 16 11/16/2023 4:25 AM HOSPITAL MEDICAL ASSISTANT Oxygen Saturation 90% 11/16/2023 4:25 AM HOSPITAL MEDICAL ASSISTANT Inhaled Oxygen Concentration - - Weight 69.7 kg (153 lb 10.6 oz) 024 12:03 AM HOSPITAL MEDICAL ASSISTANT Height 147.3 cm (4' 10) 11/05/2023 12: 03 AM HOSPITAL MEDICAL ASSISTANT Body Mass Index 32.12 11/05/2023 12:03 AM HOSPITAL MEDICAL ASSISTANT documented in this encounter Discharge Summaries * [...] determined to be a good fir for [facility] inpatient acute rehab but after 1-2 weeks of therapy she wouldstill need 24/ observation. Due to her insurance it does not pay for a tcu after [facility] rehab. The family chose to discharge to [...] pale. Neurological: Mental Status: She is alert. Pediatric Critical Care Nurse Needed: no PLANNED DISCHARGE ORDERS: Suture/Miguel: None [...] 4:30PM, M-F): Call the Surgery Clinic at [phone] After hours or on Holidays: Call the [facility] tar distributor operator . Ask the tar distributor operator to page the general surgery resident power electronics research engineer. IF: -- you feel you are getting [...] getting larger: a pupil is the dark crooked creek in the center of the eye - [...] is often helpful to return to [facility] to be evaluated. If you live far away or are in extreme distress (i.e cannot breathor won't wake up), call 911 and first responders can decide which hospital is best. If you have any questions about your or your loved one's condition after discharge, call [phone] to speak with a nurse. Please contact [...] -- Read all labels for prescription and [id number] medicines. Ask the pharmacist if your prescription [...] documented. Gregg Dexter MD, 11/16/2023 8:18 AM ITAL MEDICAL ASSISTANT documented in this encounter Discharge Instructions * Discharge Instr - Speech Language Pathology* Nayeli Alvarado SLP [facility] - 11/15/2023 4:39 PM HOSPITAL MEDICAL ASSISTANT Speech-language pathologists (jet operator) assess and treat speech, language, cognition (thinking) [...] your primary Speech-Language Pathologist directly or call [phone]. ITAL MEDICAL ASSISTANT documented in this encounter Medications at Time [...] equipment/supplies recommended: none Final discharge destination: Subacute fdc with rehab care R: The patient and family understood the AVS. P: Support patient and family if they call back with questions. Cornell Solomon RN, 11/16/2023 9:19 AM ITAL MEDICAL ASSISTANT * Carolina Awan RN - 11/16/2023 2:30 AM CST Entered chart to leave staff to staff regarding pt's d/c ride in the AM Carolina Awan RN, 11/16/2023 2:30 AM ITAL MEDICAL ASSISTANT * Sinai Brady PA-C - 11/15/2023 3:50 [...] II, and HLD, who was admitted to [facility] 11/04/2023 after being found unconscious at the [...] address self care, ADL's, adaptive equipment Continue A R COLLECTIONS REP to address speech, swallow, communication, cognition Regarding [...] of this note have been dictated using Routehappy dictation software. Please excuse any hot air furnace installer and repairer errors and feel free to contact me regarding such errors or confusion regarding intended message. Sinai Brady PA-C, CBIS Pager via [employer] ITAL MEDICAL ASSISTANT * Nayeli Alvarado, A R COLLECTIONS REP [facility] - 11/15/2023 2:49 PM CST Speech-Language Pathology Progress Note 11/15/2023 A R COLLECTIONS REP Recommendations Discharge Recommendations (A R COLLECTIONS REP): Post-acute placement recommended. Acute Rehab if meets admission criteria No known barriers to placement Barriers to Discharge (A R COLLECTIONS REP): NA - Post acute placement is recommended and no barriers to placement known. Post Discharge follow-up (A R COLLECTIONS REP): A R COLLECTIONS REP at post-acute placement Recommend PM&R Consult (A R COLLECTIONS REP): Yes, for assessment of post-acute placement needs. Pt appears to be a candidate for higher intensity rehab services. Diet Recommendation: Current Diet : Regular Current Liquid: Thin liquids Medication Administration: Medications with thin liquid Aspiration Precautions: Upright with all eating and drinking Oral Hygiene: [place] teeth 2x/day Positioning Techniques: Seat fully upright [...] Cognitive communication deficit R41.841, Treatment Type:Cognitive-linguistic Treatment (45888, 42435) Treatment Frequency: 2-3x per week CLINICAL IMPRESSIONS Patient presents with severe cognitive-linguistic deficits in areas of attention, working, short-term, and long-term memory, problem solving, reasoning, processing speed, and executive functioning secondary to SDH of the R>L tentorial leaflets and R cerebral convexity, scattered SAH, L periventri cular hemorrhage, and a small L frontal IPH. Ongoing tx is warranted. Speech-Language Pathologist: Nayeli Alvarado SLP [facility], 11/15/2023 2:49 PM Pager: [employer] ITAL MEDICAL ASSISTANT * Randy Barragan - 11/15/2023 10:27 AM CST Transportation set for patient as follows: Date and time () of patient departure: 11/16/2023 @0900 Destination: [facility] [place] [address] Type of ride: wheelchair Reference #[id number] Transportation vendor of ride: [employer] [phone] * If this ride needs to be [...] Clinical Coordinators will be informed via a Teluiu[employer] page. PCS form was completed in Progress Notes and is ready to be signed and routed to vendor by requestor(for stretcher rides only). Randy Barragan, 11/15/2023 2:49 PM Patient name: Lucinda Kennedy Date of : 1940 Patient Admitting diagnosis: Patient Active Problem List Diagnosis Fall, initial encounter Attending provider: Quinn Covarrubias MD Insurance: [facility] Secondary insurance: N/A Height: Height: 147.3 cm (4' 10) Weight: Weight: 69.7 kg (153 lb 10.6 oz) ITAL MEDICAL ASSISTANT * Fide Reis - 11/15/2023 10:23 AM CST Preadmission Screening Submitter InformationPerson Being ReferredMedical InformationADL'[facility] SystemSubmitResults Results Thank you for submitting a referral [...] help, contact the Senior LinkAge Line at [phone] or click to contact us. Print this page You have successfully submitted the preadmission screening (PAS) to the Senior LinkAge Line on: Created On 11/15/2023 10:08 AM Your confirmation number is: [id number] Results Level of Care: Based on the information you provided, it appears this person meets level of care for purposes of MA payment. OBRA: It appears this person does not need an OBRA Level II assessment. Submitter Information Form Type PAS Submitter First and Last Name Fide Reis Direct Email [email or web address] Agency [facility] Service Type Hospital [address] [facility] Zip Code [address] Is your Agency outside [place]? Person Being Admitted to Nursing Facility Legal first name Lucinda Last name Kennedy Date of 1940 Age 83 Gender Female Marital Status M= living with spouse Race White - W Ethnicity / Currently living with: 02 Living with spouse/parent Planned living with 02 Living with spouse/parent Housing Type Home or apartment, including assisted living () Mailing Address [address] [place] [address] [place] [address] [facility] Medical Information Reason for nursing facility admission: [...] facility the person will admit to?Yes Provider [facility] Nursing [facility] Nursing Facility Service Type Senior Living [address] If your provider is not listed [...] Phone Fax Patient Preferred Theresa Yusuf Sushil [facility] Selected Jail [address] [facility] [address] [phone] -- Internal Comment last updated by Bill Olivera 11/15/[address] [place] [address] offered us bed today. Working on setting up a ride. Team informed. Bill Olivera, 11/15/2023 10:01 AM Spoke with Italia. Will discuss further with her team. May likely admit tomorrow. May need prior auth. Bill Olivera, 11/15/2023 9:26 AM [facility] Considering Need clinical review N/A [address] [facility] [address] [phone] Internal Comment last updated by Fide Reis 11/14/2023 0926 Shared female .. bed .Fide Reis, 11/14/2023 9:25 AM [facility] Pending - [place] Sent [place]/A [address] [facility] [address] Internal Comment last updated by Fide Reis 11/14/2023 0918 LVM for admissions .Fide Reis, 11/14/2023 9:18 AM [facility] Pending - Request Sent N/A [address] [facility] [phone] -- Internal Comment last updated by Fide Reis 11/14/2023 0920 LVM for Renata in admissions Rere Reissushil Johansen, 11/14/2023 9:20 AM [facility] Pending - Request Sent N/A [address] [address] [phone] Internal Comment last updated by Fide Reis 11/14/2023 0921 LVM for admissions .Savanna Reisgee Johansen, 11/14/2023 9:21 AM [facility] Pending - Request Sent N/A [address] [facility] [address] [phone] -- [facility] Pending - Request Sent N/A [address] [address] [phone] -- [facility] Pending - Request Sent N/A 9889 [facility] [address] [phone] -- [facility] Pending - Request Sent N/A 9200 [facility] [address] -- [facility] Pending - Request Sent N/A 213 [facility] [address] [phone] -- [facility] Pending - Request Sent N/A [address] [address] [phone] -- [facility] Declined Not a TCU N/A 900 [facility] [address] [phone] Internal Comment last updated by Marycarmen Caldwell 11/09/2023 1033 Not a TCU per the [phone] phone number connected to the same address. Marycarmen Caldwell,11/09/2023 10:33 AM [facility] Declined Closed N/A [address] [facility] [address] [phone] Internal Comment last updated by Fide Reis 11/08/2023 1359 Has been closed for 1 year . Fide Reis, 11/08/2023 1:59 PM [facility] Declined No Contract with Patient's Insurance Carrier N/A [id number] [facility] [id number] Internal Comment last updated by Bill Olivera 11/15/2023 0840 Family doesn't want it here. Bill Olivera, 11/15/2023 8:40 AM [facility] B3.320 Declined TCU N/A [address] [place] [phone] -- Internal Comment last updated by Blil Olivera 11/09/2023 0829 PM&R continues to follow. If DC imminent, recommending TCU instead. Bill Olivera, 11/09/2023 8:29 AM Pending PMnR recs. Bill Olivera, 11/06/2023 11:04 AM [facility] Declined Facility Cannot Provide for Patient's needs N/A [address] [place] [address] [phone] -- [facility] Declined Closed N/A [address] [place] [address] [phone] -- Internal Comment last updated by Marycarmen Caldwell 11/09/2023 1034 Permanently closed [facility] Declined Family choice N/A [address] [facility] [address] [phone] -- Internal Comment last updated by Fide Reis 11/14/2023 0916 LVM for admissions. Fide Reis, 11/14/2023 9:16 AM [facility] Declined Family choice N/A [address] [facility] [address] [phone] -- [facility] Declined Family choice N/A [address] [facility] [address] [phone] -- [facility] Declined Bed not available N/A [address] [facility] [address] [phone] -- Home Medical Care Coordination has not been started for this encounter. ITAL MEDICAL ASSISTANT * Gregg Dexter MD - 11/15/2023 7:20 [...] SQ BID GI prophylaxis: None Endocrine: restart service captain Metformin today Antibiotics: none Pain control: [...] 11/15/2023 09:51 PGY-5 General Surgery Resident Pager: [phone] or via [employer] FACULTY NOTE I saw and evaluated the patient on the date of the resident's note. I discussed with the resident and agree with the resident???s findings and plan documented in the resident???s note from above. Anyrevisions by me are documented. Gregg Dexter MD, 11/15/2023 3:39 PM ITAL MEDICAL ASSISTANT * Gregg Dexter MD - 11/14/2023 11:58 [...] canidate. Currently patients insurance will cover either [facility] or a TCU but not both. Mitch [...] documented. Gregg Dexter MD, 11/15/2023 3:38 PM ITAL MEDICAL ASSISTANT * Sharri Price, OTR/L - 11/14/2023 11:00 [...] Functional activity: 8 minutes RAFAEL Medellin/Kelton Pager: [employer] OT Department ITAL MEDICAL ASSISTANT * Carola Spence, HAND STAPLER - 11/14/2023 10:00 AM CST Images from [...] intensity rehab services S: We are in [place].. Well if we are in [place] I told Wan to go to the [...] Quality (General): Shuffling;Unsteady Stairs Assistive Devices Used: (VP SCIENTIFIC) Sitting Static Balance Level of Assistance: Upper [...] SLS) Vertical/horizontal head turns - slows requires VP SCIENTIFIC Amb slow/fast : no significant change achieved Education : TCU vs Acute rehab and amount of assist patient will require upon dc home which is likely general supervision Interdisciplinary Communication PA/CLERK TELEGRAPH SERVICE: discussed patient Screen Roller: daughter wishing to discuss POA Family: present [...] transfer bed to/from chair with (6) Modified Hendricks with sliding board or pivot method. By 11-17-2023 Outcome: In progress Goal: Patient will transfer sit to/from stand Description: Patient will transfer sit to/from stand with (6) Modified Hendricks By 11-17-2023. Outcome: In progress Problem: Decreased Ambulatory Skills Goal: Improve gait Description: Ambulate 100 meters using Front - wheeled walker with (6) Modified Hendricks By 11-17-2023. Outcome: In progress Goal: Improve gait on stairs Description: Ascend/descend 7 +7 stairs using Cane with (6) Modified Hendricks .By 11-17-2023 Outcome: In progress Problem: Decreased [...] least AD, stairs for home usage daily. HAND STAPLER Appropriate: Yes Carola Spence PTA 11/14/2023 Pager: [facility] PT Dept ITAL MEDICAL ASSISTANT * Sinai Brady PA-C - 11/14/2023 9:48 [...] II, and HLD, who was admitted to [facility] 11/04/2023 after being found unconscious at the [...] address self care, ADL's, adaptive equipment Continue A R COLLECTIONS REP to address speech, swallow, communication, cognition Regarding [...] of this note have been dictated using Routehappy dictation software. Please excuse any hot air furnace installer and repairer errors and feel free to contact me regarding such errors or confusion regarding intended message. Sinai Brady PA-C, CBIS Pager via [employer] Total time spent on this encounter, on the date of service including pre-visit review of separatelyobtained history, [id number] interaction performing medically appropriate physical exam, patient counseling/education, interpretation of diagnostic results, care coordination and documentation was 50 minutes. ITAL MEDICAL ASSISTANT * Sharri Price OTR/Kelton - 11/13/2023 4:49 [...] dressing task at Min A including donning elevator examiner socks and shorts at EOB. Patient completing light g/h tasks while seated in chair bedside with s/u. 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 Acute Rehab if meets admission criteria No known barriers to placement Barriers to Discharge (A R COLLECTIONS REP): NA - Post acute placement is recommended and no barriers to placement known. Post Discharge follow-up (A R COLLECTIONS REP): A R COLLECTIONS REP at post-acute placement Recommend PM&R Consult (A R COLLECTIONS REP): Yes, for assessment of post-acute placement needs. Pt appears to be a candidate for higher intensity rehab services. Diet Recommendation: Current Diet : Regular Current Liquid: Thin liquids Medication Administration: Medications with thin liquid Aspiration Precautions: Upright with all eating and drinking Oral Hygiene: [place] teeth 2x/day Positioning Techniques: Seat fully upright [...] Cognitive communication deficit R41.841, Treatment Type:Cognitive-linguistic Treatment (36858, 29320) Treatment Frequency: 2-3x per week CLINICAL IMPRESSIONS Severe cognitive-linguistic deficits within attention, memory, problem solving, reasoning, and executive functioning. Ongoing cognitive-linguistic dx/tx is needed. Speech-Language Pathologist: Sera Fleming SLP [facility], 11/13/2023 1:14 PM Pager: [employer] ITAL MEDICAL ASSISTANT * Jesusita Aiken APRN, DINKEY BRAKEMAN - 11/13/2023 8:21 AM CST SURGERY TRAUMA [...] Jesusita Aiken APRN, EMILY, 11/13/2023 11:17 AM ITAL MEDICAL ASSISTANT * Carola Spence PTA - 11/12/2023 10:30 [...] (Numeric): 0 (reports she has no pain) O:Pediatric Critical Care Nurse Used: None needed Mental Status Mental Status: [...] Shuffling;Unsteady -with nonuse of gait and vs VP SCIENTIFIC - patient exhibits significantly shortened step length Stairs Number of Steps: 5 Stair Rails: Right rail Stairs : Minimal assist Stairs Method: Ascend step-to pattern;Descend reciprocal pattern (max verbal cues for sequencing) Assistive Devices Used: (VP SCIENTIFIC) -catches foot on each step Sitting Static [...] transfer bed to/from chair with (6) Modified Hendricks with sliding board or pivot method. By 11-17-2023 Outcome: In progress Goal: Patient will transfer sit to/from stand Description: Patient will transfer sit to/from stand with (6) Modified Hendricks By 11-17-2023. Outcome: In progress Problem: Decreased Ambulatory Skills Goal: Improve gait Description: Ambulate 100 meters using Front - wheeled walker with (6) Modified Hendricks By 11-17-2023. Outcome: In progress Goal: Improve gait on stairs Description: Ascend/descend 7 +7 stairs using Cane with (6) Modified Hendricks .By 11-17-2023 Outcome: In progress Problem: Decreased [...] least AD, stairs for home usage daily. HAND STAPLER Appropriate: Yes Carola Spence PTA 11/12/2023 Pager: [employer] PT Dept ITAL MEDICAL ASSISTANT * Gregg Dexter MD - 11/12/2023 7:59 [...] documented. Gregg Dexter MD, 11/12/2023 7:19 PM ITAL MEDICAL ASSISTANT * Amelia Lobo MD - 11/11/2023 7:53 [...] 11/11/2023 07:56 PGY-5 General Surgery Resident Pager: [phone] or via Tel[employer] ITAL MEDICAL ASSISTANT Associated attestation - Mariama Catherine DO - 11/12/2023 2:39 PM HOSPITAL MEDICAL ASSISTANT FACULTY NOTE I saw and evaluated the [...] on the Primary Treatment Team, click here. ITAL MEDICAL ASSISTANT Associated attestation - Mariama Catherine DO - 11/12/2023 2:39 PM HOSPITAL MEDICAL ASSISTANT FACULTY NOTE I saw and evaluated the patient on the date of the resident's note. I discussed with the resident and agree with the resident???s findings and plan documented in the resident???s note from above. Anyrevisions by me are documented. Mariama Catherine DO, 11/12/2023 2:39 PM * Olivia Johnson RN - 11/09/2023 11:34 PM CST Shift [id number] Pt A&O to self and family member, pt pleasantly confused, spouse at bedside, pt VSS, on 2L to 4L via facemask to maintain oxygen above 90%. Pt denies bonita, pt up with AX1 with GB and walker, call light within reach, bed alarm on. ITAL MEDICAL ASSISTANT * Carola Spence PTA - 11/09/2023 3:35 [...] patient adamantly denies having pain this PM O:Pediatric Critical Care Nurse Used: None needed Mental Status Mental Status: [...] With approach Clarissa is in bed - check writer salesperson notes significant improvement in alertness and participation in therapy this PM. She is pleasantly confused and often reports we are in [place], [place] - writerredirects that she is at the hospital in [place], [place]. Exhibits significant improvement with ambthis PM [...] transfer bed to/from chair with (6) Modified Hendricks with sliding board or pivot method. By 11-17-2023 Outcome: In progress Goal: Patient will transfer sit to/from stand Description: Patient will transfer sit to/from stand with (6) Modified Hendricks By 11-17-2023. Outcome: In progress Problem: Decreased Ambulatory Skills Goal: Improve gait Description: Ambulate 100 meters using Front - wheeled walker with (6) Modified Hendricks By 11-17-2023. Outcome: In progress Goal: Improve gait on stairs Description: Ascend/descend 7 +7 stairs using Cane with (6) Modified Hendricks .By 11-17-2023 Outcome: In progress Problem: Decreased [...] least AD, stairs for home usage daily. HAND STAPLER Appropriate: Yes Carola Spence PTA 11/09/2023 Pager: [employer] PT Dept ITAL MEDICAL ASSISTANT * Juhi Dent, PharmD - 11/09/2023 2:58 [...] ordered Juhi Dent, WalterD 11/09/2023 14:58 [employer] ITAL MEDICAL ASSISTANT * Sera Fleming SLP CCC - 11/09/2023 11:20 AM CST Speech Language Pathology: Attempted to see patient this am x2. Pt sleeping soundly and not waking sufficiently for tx. Will re-attempt to see patient today as schedule permits. Sera Fleming SLP CCC, 11/09/2023 11:20 AM ITAL MEDICAL ASSISTANT * Jesusita Aiken, ENGINEERING PROJECT DESIGNER, DINKEY BRAKEMAN - 11/09/2023 7:31 AM CST SURGERY TRAUMA PROGRESS NOTE -CLERK TELEGRAPH SERVICE Lucinda Kennedy : 1940 Sex: female ASSESSMENT: [...] Resident and Staff Physician. Jesusita Aiken APRN, DINKEY BRAKEMAN, 11/09/2023 7:32 AM Discharge Milestones Documentation Discharge Milestones completed daily by the documenting provider on the Primary Treatment Team, click here. ITAL MEDICAL ASSISTANT * Carola Spence, HAND STAPLER - 11/08/2023 2:30 PM CST Physical Therapy [...] perform) Heel/Toe Raises: 10 reps Interdisciplinary Communication PA/CLERK TELEGRAPH SERVICE: updated PM&R PA following session RN: ok [...] bed and her eyes are closed. When check writer salesperson states her voice she responds right away but her eyes do not open. Heel Trimmer cues patient to move supine > seated [...] transfer bed to/from chair with (6) Modified [place]ricks with sliding board or pivot method. By 11-17-2023 Outcome: In progress Goal: Patient will transfer sit to/from stand Description: Patient will transfer sit to/from stand with (6) Modified Hendricks By 11-17-2023. Outcome: In progress Problem: Decreased Ambulatory Skills Goal: Improve gait Description: Ambulate 100 meters using Front - wheeled walker with (6) Modified Hendricks By 11-17-2023. Outcome: In progress Goal: Improve gait on stairs Description: Ascend/descend 7 +7 stairs using Cane with (6) Modified Hendricks .By 11-17-2023 Outcome: In progress Problem: Decreased [...] least AD, stairs for home usage daily. HAND STAPLER Appropriate: Yes Carola Spence PTA 11/08/2023 Pager: [facility] ITAL MEDICAL ASSISTANT * Bill Olivera - 11/08/2023 12:37 PM CSTSummary: DC Planning DC Planning Patient is near medical readiness to DC to next level of care. It is not yet clear if she will be aKnapp candidate yet. Heel Trimmer spoke with patient's daughter over the phone. Also, had spoken with patient's father earlierin the week. We will start looking for TCUs around [place]. Also, she will do further research and call me back with more options. CC explained that we can't guarantee placement in their preferred place, this is up to facility, insurance coverage and bed availability. Also, Medicare patients will not be able to stay in the hospital indefinitely while we look for their preferred TCU. ITAL MEDICAL ASSISTANT * Victor M Enrique MD - 11/08/2023 12:00 PM CST Images from the original note were not included. SURGERY TRAUMA PROGRESS NOTE -PGY 1 Lucinda Romo Kennedy : 1940 Sex: female ASSESSMENT: 83 y.o. yo female with SDH R cerebral convexity and falx, scattered SAH and periventricular hemorrhage . The following services have been consulted PM&R, A R COLLECTIONS REP. Night Events: Nurse reported weakness of right leg overnight during neuro checks, upon examination by overnight resident determined decreased rom 2/2 to right ankle pain. -Pt required 3 prn doses of labetalol overnight to maintain goal of sbp<160 Day Events: -Patient cleared by A R COLLECTIONS REP and has resumed regular diet -Restarted prior oral bp regimen -CXR not concerning for pneumonia -Procal WNL -Started Naproxen BID and HAND STAPLER allopurinol for suspected gout flare PLAN: Diet: [...] Victor M Enrique MD, 11/09/2023 8:29 AM ITAL MEDICAL ASSISTANT * Sinai Brady PA-C - 11/08/2023 11:33 AM CST Physical Medicine & Rehabilitation Follow-Up Lucinda Kennedy : 1940 Sex: female Patient lethargic, rouses briefly to acknowledge check writer salesperson before returning to sleep. Unable to maintain [...] II, and HLD, who was admitted to [facility] 11/04/2023 after being found unconscious at the [...] address self care, ADL's, adaptive equipment Continue A R COLLECTIONS REP to address speech, swallow, communication, cognition Regarding [...] of this note have been dictated using Routehappy dictation software. Please excuse any hot air furnace installer and repairer errors and feel free to contact me regarding such errors or confusion regarding intended message. Sinai Brady PA-C Pager via [employer] ITAL MEDICAL ASSISTANT * Ruby Franklin, OTR/L - 11/08/2023 10:10 AM CST OT NOTE: Attempted OT session but pt was too lethargic to meaningful participate, falling asleep quickly andmumbling responses to questions. Will try to return later this PM as schedule allows (tomorrow willschedule session in the PM as RN reports she is usually more alert after 2:00pm). Aubree Franklin, OTR / L 11/08/2023 ITAL MEDICAL ASSISTANT * Sera Fleming, [facility] - 11/08/2023 9:26 AM CST Speech-Language Pathology Progress Note 11/08/2023 A R COLLECTIONS REP Recommendations Discharge Recommendations (A R COLLECTIONS REP): Post-acute placement recommended. Acute Rehab if meets admission criteria No known barriers to placement Barriers to Discharge (A R COLLECTIONS REP): NA - Post acute placement is recommended and no barriers to placement known. Post Discharge follow-up (A R COLLECTIONS REP): A R COLLECTIONS REP at post-acute placement Recommend PM&R Consult (A R COLLECTIONS REP): Yes, for assessment of post-acute placement needs. Pt appears to be a candidate for higher intensity rehab services. 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 Cognitive-linguistic assessment not completed. Once pt clears, suspect she will have very good participation as she participates well when more alert. Speech-Language Pathologist: Sera Fleming SLP [facility], 11/08/2023 9:26 AM Pager: [employer] ITAL MEDICAL ASSISTANT * Sinai Brady PA-C - 11/07/2023 3:57 PM CST Physical Medicine & Rehabilitation Follow-Up Lucinda Ryans : 1940 Sex: female Patient lethargic, rouses briefly and acknowledges check writer salesperson, answers a few questions but unclear reliability, [...] II, and HLD, who was admitted to [facility] 11/04/2023 after being found unconscious at the [...] address self care, ADL's, adaptive equipment Continue A R COLLECTIONS REP to address speech, swallow, communication, cognition Regarding [...] of this note have been dictated using Routehappy dictation software. Please excuse any hot air furnace installer and repairer errors and feel free to contact me regarding such errors or confusion regarding intended message. Sinai Brady PA-C Pager via [employer] Total time spent on this encounter, on the date of service including pre-visit review of separatelyobtained history, ygyx-ki-sora interaction performing medically appropriate physical exam, patient counseling/education, interpretation of diagnostic results, care coordination and documentation was 35 minutes. ITAL MEDICAL ASSISTANT * Jazmine Thompson V - 11/07/2023 3:09 PM CST CULTURAL ASSESSMENT: SUMMARY: This check writer salesperson saw pt. At 12:26 PM on 11/07/2023. Heel Trimmer introduced herself to pt.'s , and discussed with him on check writer salesperson's role. Heel Trimmer asked pt.'s if he had any questions, comments, or concerns regarding pt.'s care. Pt.'s mentioned that he doesn't really know anything, so he will wait and see if later he would need assistance from check writer salesperson. Heel Trimmer gave her contact information for any future questions, comments, or concerns. Jazmine Thompson V, 11/07/2023 3:27 PM ITAL MEDICAL ASSISTANT * Sera Fleming SLP [facility] - 11/07/2023 2:41 PM CST Speech-Language Pathology Progress Note 11/07/2023 A R COLLECTIONS REP Recommendations Discharge Recommendations (A R COLLECTIONS REP): Post-acute placement recommended. Acute Rehab if meets admission criteria No known barriers to placement Barriers to Discharge (A R COLLECTIONS REP): NA - Post acute placement is recommended and no barriers to placement known. Post Discharge follow-up (A R COLLECTIONS REP): A R COLLECTIONS REP at post-acute placement Recommend PM&R Consult (A R COLLECTIONS REP): Yes, for assessment of post-acute placement needs. Pt appears to be a candidate for higher intensity rehab services. 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 Safe to restart baseline diet of regular textures and thin liquids. Ensure pt is upright for all PO intake and is alert. Speech-Language Pathologist: Sera Fleming SLP [facility], 11/07/2023 2:44 PM Pager: [employer] ITAL MEDICAL ASSISTANT * Juan Loera MD - 11/07/2023 10:42 AM CST SURGERY TRAUMA PROGRESS NOTE -PGY 1 Lucinda Ryans : 1940 Sex: female ASSESSMENT: 83 y.o. yo female with SDH R cerebral convexity and falx, scattered SAH and periventricular hemorrhage . The following services have been consulted PM&R, A R COLLECTIONS REP. Night Events: -Pt reported to be pulling out lines overnight, given zyprexa 10 mg for agitation Day Events: -Patient diet changed to NPO due to aspiration concerns -Held oral antihypertensives to start tomorrow pending clearance from A R COLLECTIONS REP -Start Maintenance fluids LR 110ml/hr ending 11/08/23 [...] her mother. Advised to speak with social worker assistant to start paperwork. Updated family on plan. [...] on the Primary Treatment Team, click here. ITAL MEDICAL ASSISTANT Associated attestation - Mariama Catherine DO - 11/12/2023 2:36 PM HOSPITAL MEDICAL ASSISTANT FACULTY NOTE I saw and evaluated the [...] yet. Dt scheduling, unable to reschedule today. ITAL MEDICAL ASSISTANT * Sera Fleming, STEPHIE CCC - 11/07/2023 9:55 AM CST Speech-Language Pathology Progress Note 11/07/2023 A R COLLECTIONS REP Recommendations Discharge Recommendations (A R COLLECTIONS REP): Post-acute placement recommended. Acute Rehab if meets admission criteria No known barriers to placement Barriers to Discharge (A R COLLECTIONS REP): NA - Post acute placement is recommended and no barriers to placement known. Post Discharge follow-up (A R COLLECTIONS REP): A R COLLECTIONS REP at post-acute placement Recommend PM&R Consult (A R COLLECTIONS REP): Yes, for assessment of post-acute placement needs. Pt appears to be a candidate for higher intensity rehab services. Diet Recommendation: Current Diet : NPO Current Liquid: NPO Medication Administration: None orally Oral Hygiene: [place] teeth 2x/day Instrumental Assessment Needed: No Additional Referrals Needed: None Page A R COLLECTIONS REP if alertness levels improve. Will re-evaluate today [...] time. Education provided to at bedside re A R COLLECTIONS REP role and delirium dysphagia. 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 Pt is pending further imaging to ensure no change in TBI. Recommend continuing NPO at this time. RN to page A R COLLECTIONS REP with improved alertness levels and will see again today based on improvement. Speech-Language Pathologist: Sera Fleming, STE[facility] CCC, 11/07/2023 9:59 AM Pager: [employer] ITAL MEDICAL ASSISTANT * Ruby Franklin, OTR/L - 11/06/2023 4:39 [...] mgmt/ADL: 25 minutes Ruby Franklin, OTR/L Pager: [employer] OT Department ITAL MEDICAL ASSISTANT * Sera Fleming SLP CCC - 11/06/2023 2:32 PM CST Speech Language Pathology: Pt not seen today d/t staffing and time constraints. Will plan to see pt tomorrow for cognitive-linguistic dx/tx and swallow follow up. Sera Fleming SLP CCC, 11/06/2023 2:32 PM ITAL MEDICAL ASSISTANT * Shy Higuera - 11/06/2023 11:04 AM CST Was unable to draw blood because nurse requested lab to come back later. Notified YOVANY Cornejo at 11:04. Patient's visitor stated that these labs are duplicate, informed YOVANY Cornejo she will call lab if needed. Shy Higuera, 11/06/2023 11:04 AM ITAL MEDICAL ASSISTANT * Bill Olivera - 11/06/2023 10:56 AM CSTSummary: Care Coordination Assessment Care Coordination Assessment Expected DC Date: 11/07/2023 Social Information Pediatric Critical Care Nurse Used: None needed Decision Maker at Admission: [...] Risks for Readmission: Access to f/u appointments database development project manager will continue to follow until DC [...] DO Inbasket notification sent via Care Everywhere ITAL MEDICAL ASSISTANT * Karime Allison PA-C - 11/06/2023 8:06 [...] intact Motor: Follows commands x4 extremities, 5/5 elevator examiner strength and plantar/dorsiflexion bilaterally, no pronator drift [...] PRN Neurosurgery will follow peripherally, please contact power electronics research engineer resident with any questions or concerns. Staffed with Karime Sheikh PA-C, 11/06/2023 8:06 AM Neurosurgery ALICIA Discharge Milestones Documentation Discharge Milestones completed daily by the documenting provider on the Primary Treatment Team, click here. ITAL MEDICAL ASSISTANT * Derek Marie RN - 11/06/2023 12:58 [...] P: Commence with cares on receiving unit. Derke Marie RN, 11/06/2023 1:00 AM ITAL MEDICAL ASSISTANT * Gale Nassar MDIV - 11/05/2023 4:48 [...] Gale Nassar MDIV, 11/05/2023 4:49 PM Pager: [phone] ITAL MEDICAL ASSISTANT * Kindra Nichole RN - 11/05/2023 1:19 AM CST Upon admission, a Four Eyes Skin Inspection was completed with Rafa Goodman RN. Skin injuries were NOT present, and skin breakdown needing further assessment will be added to Avatar. Will implement interventions from Skin INJURY Bundle as appropriate. Kindra Nichole RN, 11/05/2023 1:20 AM ITAL MEDICAL ASSISTANT * Hernandez Mathur MD - 11/05/2023 12:00 [place] [address] [facility] [id number] PATIENT: LUCINDA KENNEDY : 1940 DATE DICTATED: 11/05/2023 SURGERY STAFF DAILY PROGRESS NOTE DATE OF SERVICE: 11/05/2023 I saw and evaluated the patient. I discussed management with residents, DINKEY BRAKEMAN, and PAs on the Neurosurgery team and [...] PhD Staff Physician Neurosurgery Service Received in Set And Exhibit Designer: 11/05/2023 17:07:17 M: /[id number] [place]/MODL ITAL MEDICAL ASSISTANT documented in this encounter H&P Notes * [...] Team Notified by: Zipit Alert received at 6719 Tier Level page received at 1054 Staff Surgeon: Quinn Covarrubias MD Pediatric Patient < 15 years: No. [place] Trauma Team Time Out Completed: No HISTORY [...] studies, procedures and surgery) Admit to [facility] Trauma Surgery Service Neurosurgery Consult paged out. Neurosurgery resident arrived at 2310. Consult to SICU Full Code Cardiac Monitoring q1Hr neuro checks, CMS checks Incentive Spirometer Bedrest with C, T, & L spine precautions C-spine exam and possible clearance once final reads posted NPO until final reads on radiography Consult A R COLLECTIONS REP and keep strict NPO if Age > [...] 11/04/2023 10:54 PM General Surgery PGY1 [facility] Surgery Service ITAL MEDICAL ASSISTANT Associated attestation - Quinn Covarrubias MD - 11/05/2023 10:43 AM HOSPITAL MEDICAL ASSISTANT FACULTY NOTE I saw and evaluated the [...] Patient Risks discussed: Pain, bleeding and infection Stanley protocol: Patient identity confirmed: Verbally with patient, [...] complications Priscilla Holcomb MD, 11/04/2023 11:43 PM ITAL MEDICAL ASSISTANT Associated attestation - Rito Graf MD - 11/05/2023 2:30 AM HOSPITAL MEDICAL ASSISTANT I was present for the entire procedure. [...] contact pharmacist on service at [facility] [employer]) [phone]. If no response within needed timeframe, please contact central pharmacy via phone at [phone]. Planned discharge medications are: Medication List Medications [...] 3 capsules (225 mg) by mouth daily. ITAL MEDICAL ASSISTANT * Tamiko Westbrook LGSW - 11/15/2023 8:32 AM CSTAssociated Order(s): CONSULT TO PATIENT SERVICE TECHNICIAN PST [employer] Note Acknowledged consult place for support with [...] elderly parents. Will send to e- mail: (I sent supporting resources as requested) ITAL MEDICAL ASSISTANT * Isabel Day - 11/14/2023 2:18 PM [...] was no one else in the room. Heel Trimmer greeted Patient, introduced herself, and offered music. Patient was pleasantly confused and asked Heel Trimmer to sit down. Heel Trimmer sat down and got out her guitar. Patient chatted with Heel Trimmer. Heel Trimmer played a song for Patient on guitar and sang. During the music, Patient looked at the television. After the song, Patient talked about the circumstances leading to her hospitalization and about a possibly surgery. Patient told Heel Trimmer she is waiting for her to return after checking on their house in [place]. Heel Trimmer played a second song, After the music, Patient commented that the music was very beautiful. Heel Trimmer ended the session and Patient thanked Heel Trimmer. Goals Addressed: Psychosocial Support and Mood Enhancement Plan: Heel Trimmer will continue to offer music therapy to Patient when possible. Isabel Day, 11/14/2023 2:18 PM ITAL MEDICAL ASSISTANT * Kasey Ennis, PT - 11/06/2023 9:02 [...] History of Falling Z 91.81 PRECAUTIONS [place] Pediatric Critical Care Nurse Used: None needed ACTIVITY Up with Assist [...] math, 92, 102) hospital, Alert, and Cooperative [place] OBJECTIVE Initial patient presentation upon PT arrival: [...] EOB upon arrival, eating breakfast. She seems [place], slightly confused but cooperative. She has good [...] AD, stairs for home usage daily. . HAND STAPLER Appropriate: Yes Participated in goal setting and treatment planning: Patient, Senior Electronics Engineer/Significant Other Agrees with goals and treatment plan: Patient - Yes, Caregiver/Significant Other - Yes. Kasey Ennis, PT 11/06/2023 Pager: [employer] PT Department ITAL MEDICAL ASSISTANT * Devyn Jamil MD - 11/06/2023 7:41 AM CST Images from the original note were not included. Physical Medicine & Rehabilitation Consultation Patient Name: Lucinda Kennedy : 1940 Medical Record: [id number] PRIMARY CARE PHYSICIAN: No primary care provider on file. REQUESTING PHYSICIAN: Quinn Covarrubias MD REASON FOR CONSULT: I was asked to evaluate this patient regarding their rehabilitation needs and appropriateness for acute rehabilitation. HISTORY OF PRESENT PROBLEM I personally reviewed the patient's medical record from the most recent [facility] admission including yet not limited to notes as below and summarized it below in conjunction with interview with the patient and patient's . Lucinda Kennedy is a 83 y.o. RHD female with chronic medical conditions including HTN, DM II, and HLD, who was admitted to [facility] 11/04/2023 after being found unconscious at the [...] she couldn't come up with the name. A R COLLECTIONS REP (11/05/23) Functional oropharyngeal swallow. Safe for regular [...] of the thoracic or lumbar spine. 2. Vkjt-ke-uvjbidoi lumbar spondylosis without suspected high-grade spinal canal or neural foraminal narrowing. CT L-Spine (11/04/23) IMPRESSION Impression: 1. No suspected acute fracture or dislocation of the thoracic or lumbar spine. 2. Nrgt-un-ijlsyfgd lumbar spondylosis without suspected high-grade spinal canal [...] II, and HLD, who was admitted to [facility] 11/04/2023 after being found unconscious at the [...] address self care, ADL's, adaptive equipment Continue A R COLLECTIONS REP to address speech, swallow, communication, cognition Regarding [...] occur at the acute level such as [place] where she can participate in 3hrs/day and [...] service including pre-visit review of separatelyobtained history, bggr-eo-shgh interaction performing medically appropriate physical exam, patient counseling/education, interpretation of diagnostic results, care coordination and documentation was 60 minutes. ITAL MEDICAL ASSISTANT * Ruby Franklin, OTR/L - 11/05/2023 1:53 [...] 10 minutes Therapist: Ruby Franklin OTR/L Pager: [facility] Occupational Therapy Department ITAL MEDICAL ASSISTANT * Reynaldo Anderson PA-C - 11/05/2023 12:41 [...] though 2 of 3 serve in the ([place] and one may be a Tongue And Groove Machine Setter?). She jokes about how long she has been to [place]. 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 Seen this afternoon, she is not oriented to time or place. No family present. She does indicate to me she prefers to go by Screen. She was able to tell me a lot about her 3 grandsons that make her veryproud, sounds as though 2 of 3 serve in the ([place] and one may be a Tongue And Groove Machine Setter?). She jokes about how long she has been to [place]. 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 ITAL MEDICAL ASSISTANT * Sera Fleming SLP [facility] - 11/05/2023 9:56 AM CST SPEECH-LANGUAGE PATHOLOGY CONSULTATION A R COLLECTIONS REP Recommendations Discharge Recommendations (A R COLLECTIONS REP): Post-acute placement recommended. Acute Rehab if meets admission criteria No known barriers to placement Barriers to Discharge (A R COLLECTIONS REP): NA - Post acute placement is recommended and no barriers to placement known. Post Discharge follow-up (A R COLLECTIONS REP): A R COLLECTIONS REP at post-acute placement Recommend PM&R Consult (A R COLLECTIONS REP): Yes, for assessment of post-acute placement needs. Pt appears to be a candidate for higher intensity rehab services. Diet Recommendation: Current Diet : Regular Current Liquid: Thin liquids Medication Administration: Medications with thin liquid Aspiration Precautions: Upright with all eating and drinking Oral Hygiene: [place] teeth 2x/day Positioning Techniques: Seat fully upright [...] Admitted to SICU for close neuro monitoring. A R COLLECTIONS REP consulted to evaluate a marge function. SUBJECTIVE Barriers to Learning: No caregiver present;Cognitive linguistic deficit Barriers to Discharge (A R COLLECTIONS REP): NA - Post acute placement is recommended [...] intact. EDUCATION Audience: Patient Education: results of assessment;A R COLLECTIONS REP scope of practice;A R COLLECTIONS REP plan of care;recommendation for additional therapy Speech-Language Pathologist: Sera Fleming, [facility], 11/05/2023 9:56 AM Pager: [employer] ITAL MEDICAL ASSISTANT * Cale Thompson MD - 11/05/2023 1:00 AM CSTAssociated Order(s): CONSULT TO ASPHALT MACHINE OPERATOR SICU CONSULT - G3 Lucinda Ryans : [...] pulmonary toilet Gastrointestinal/Nutrition: Assessment: NPO, will need A R COLLECTIONS REP clearance prior to diet Plan: - Continue NPO - A R COLLECTIONS REP Electrolytes: Assessment: otherwise grossly within normal limits. [...] Component Value Date/Time PHART 7.37 11/05/2023 0118 CNS4OMH 43 11/05/2023 0118 PO2ART 83 11/05/2023 0118 GTW7ZZF 25 11/05/2023 0118 Z4ELOKKL 96 11/05/2023 0118 BEART -0.3 11/05/2023 0118 Labs and imaging reviewed. Art Thompson MD - PGY-3 Surgery Service Pager: [employer] This patient was seen in consultation for critical care management requested by Devin Dougherty MD;P* ITAL MEDICAL ASSISTANT Associated attestation - Quinn Covarrubias MD - 11/05/2023 10:44 AM HOSPITAL MEDICAL ASSISTANT FACULTY NOTE I saw and evaluated the [...] in consultation at the request of Dr. Heranndez for evaluation of intracranial hemorrhage. Assessment and [...] elbow flex/ext. 5/5 wrist flex/ext. 5/5 hand elevator examiner. LUE: 5/5 shoulder abduction. 5/5 elbow flex/ext. 5/5 wrist flex/ext. 5/5 hand elevator examiner. Lower Extremities: RLE: 5/5 hip flexion. 5/5 knee flex/ext. 5/5 ankle plantar-/dorsiflexion. 5/5 EHL. LLE: 5/5 hip flexion. 5/5 knee flex/ext. 5/5 ankle plantar-/dorsiflexion. 5/5 EHL Sensory: Sensation intact in all 4 extremities REVIEW OF LABORATORY, PATHOLOGY, AND RADIOLOGY DATA: [facility] Lab Results Component Value Date/Time NA [...] independently reviewed: Laboratory results and Radiology images ITAL MEDICAL ASSISTANT Associated attestation - Marina Shaffer MD - 11/05/2023 4:13 PM HOSPITAL MEDICAL ASSISTANT 83 year old woman presented after presumed [...] Oximetry - Continuous (ICU) Oxygen Consult to Environmental Services Tech CONSULT TO PALLIATIVE CARE Straight Cath Protocol [...] RN in EDSTAB 2 at 11/04/2023 22:55:31 HOSPITAL MEDICAL ASSISTANT by Eleni Spring MLS. ED HEMOGLOBIN TOTAL (ED ONLY) - Abnormal Hgb 10.3 (*) LACTATE (LACTIC ACID) - Abnormal Lactate 2.7 (*) Narrative: Send specimen on ice! PTT (APTT) - Abnormal APTT 22.9 (*) ANTI XA HEPARIN UNFRACTIONATED - Abnormal Anti XA Hep U <0.04 (*) URINALYSIS,TOTAL - Abnormal Color COLORLESS Appearance CLEAR Urine Glucose 100 (*) Bili UA NEGATIVE Ketones NEGATIVE Specific [place] 1.036 (*) Blood Ur NEGATIVE PH Urine 7.5 (*) Protein Ur TRACE Urobilinogen NORMAL Nitrite Ur NEGATIVE Leuk Est NEGATIVE WBC Ur 0-5 RBC Ur 0-3 SQ EPITH 0-5 Urinalysis Performed at: [facility] FIBRINOGEN Fibrinogen 288 PRECAUTIONARY TUBE Prec Tube [...] hemorrhage Vanna Parekh PA-C, 11/05/2023 3:11 AM ITAL MEDICAL ASSISTANT * Kathy Worthington RN - 11/05/2023 12:09 AM CST Bed: A08 Expected date: Expected time: Means of arrival: Comments: Stab 2 ITAL MEDICAL ASSISTANT * Ana Ordaz RN - 11/04/2023 10:51 PM CST ED-president ceo & founder-Note: --Pertinent Information: Pt arrives to ED after fall down flight of stairs. --Pt's , daughter and son in law were on scene and are all coming to [facility]. --Family contact: Daughter Zain #[phone] / Son in Law # [phone] Ana Ordaz RN ITAL MEDICAL ASSISTANT * Rafa Hutchins RN - 11/04/2023 10:40 PM CST BIBA from home after called when he heard her fall downstairs. Upon EMS arrival, patient was altered and lethargic. reports to EMS that patient is on blood thinners. 18g PIV left AC, 20g PIV right forearm. BG 272. Patient arrives to STAB Room awake, disoriented to time and situation. ITAL MEDICAL ASSISTANT documented in this encounter Miscellaneous Notes * Discharge non-MD/non-AVERY Summaries - Kasey Ennis, PT - 11/16/2023 9:19 AM CST Physical Therapy Inpatient Discharge Summary Lucinda Kennedy [id number] Diagnosis Patient Active Problem List Diagnosis Fall, [...] transfer bed to/from chair with (6) Modified Hendricks with sliding board or pivot method. By 11-17-2023 Outcome: In progress Goal: Patient will transfer sit to/from stand Description: Patient will transfer sit to/from stand with (6) Modified Hendricks By 11-17-2023. Outcome: In progress Problem: Decreased Ambulatory Skills Goal: Improve gait Description: Ambulate 100 meters using Front - wheeled walker with (6) Modified Hendricks By 11-17-2023. Outcome: In progress Goal: Improve gait on stairs Description: Ascend/descend 7 +7 stairs using Cane with (6) Modified Hendricks .By 11-17-2023 Outcome: In progress Problem: Decreased Functional Motor Skills - PT Goal: Patient demonstrates improved balance Description: Pt to score at least 45/56 Mitchell Balance to indicate decreased risk for falls By 11-17-2023 Outcome: In progress Plan: Discharge to Rehab Facility Physical Therapist: Kasey Ennis, PT Date: 11/17/2023 Pager: [employer] PT Department ITAL MEDICAL ASSISTANT * Discharge non-MD/non-AVERY Summaries - Bill Olivera - 11/16/2023 7:46 AM HOSPITAL MEDICAL ASSISTANT Summary: DC to TCU Care Coordination Discharge Note Expected DC Date: 11/16/2023 Expected DC Time: 9 AM Final Discharge Destination: Destination Coordination complete. Service Provider Selected Services Address Phone Fax Theresa Yusuf, A [facility] [address] [place] [address] [phone] Summary: Patient has been accepted to continue rehabing at the aforementioned post acute facility. Family onboard with plan. WC ride has been ordered for Fri at 9 am Medical team is aware. They will work writing DC orders. CC faxed DC orders to TCU via [employer]. Medical team is aware any controlled substances must be printed and signed to be sent in physical form to the TCU. Also, PSC/CADD MANAGER will fax it to TCU temi. Bedside nurse please confirm this is done. A [employer] thread has been started. CC will continue to follow until DC. Please use [employer] for any further questions. ITAL MEDICAL ASSISTANT * Nursing Assessment - Karolyn Jacob RN [...] at bedside and sitting quietly at bedside ITAL MEDICAL ASSISTANT * Nursing Assessment - Lila Gaines, RN [...] Psychosocial Assessment Within Defined Limits except for: ITAL MEDICAL ASSISTANT * Discharge non-MD/non-AVERY Summaries - Nayeli Alvarado, A R COLLECTIONS REP [facility] - 11/15/2023 4:35 PM CST SPEECH-LANGUAGE PATHOLOGY Discharge Summary 11/15/2023 A R COLLECTIONS REP Recommendations Discharge Recommendations (A R COLLECTIONS REP): Post-acute placement recommended. Acute Rehab if meets admission criteria No known barriers to placement Barriers to Discharge (A R COLLECTIONS REP): NA - Post acute placement is recommended and no barriers to placement known. Post Discharge follow-up (A R COLLECTIONS REP): A R COLLECTIONS REP at post-acute placement Recommend PM&R Consult (A R COLLECTIONS REP): Yes, for assessment of post-acute placement needs. Pt appears to be a candidate for higher intensity rehab services. Diet Recommendation: Current Diet : Regular Current Liquid: Thin liquids Medication Administration: Medications with thin liquid Aspiration Precautions: Upright with all eating and drinking Oral Hygiene: [place] teeth 2x/day Positioning Techniques: Seat fully upright [...] hemianopsia. EDUCATION Audience: Patient Education: results of assessment;A R COLLECTIONS REP scope of practice;A R COLLECTIONS REP plan of care;recommendation for additional therapy Prognosis is good for increasing independence with iADLs. Speech-Language Pathologist: Nayeli Alvarado, A R COLLECTIONS REP [facility], 11/15/2023 4:35 PM Pager: [employer] ITAL MEDICAL ASSISTANT * Discharge non-MD/non-AVERY Summaries - Sharri Price, [...] subacute rehab. Patient Name: Lucinda Kennedy MR#: [id number] Date of : 1940 Age: 83 y.o. [...] none (11/05/23 1400) Prior Level of Function (HAND STAPLER): ADLs/IADLs: No assistance required (Independent or modified [...] goals. Occupational Therapist: [employer] [place] OT Department ITAL MEDICAL ASSISTANT * Nursing Assessment - Dariana Alvarado RN - 11/15/2023 4:49 AM CST Nursing Assessment Head to Toe Head to Toe Assessment Shift Summary Shift [id number]: Pt is alert and oriented to self [...] for: Psychosocial Assessment: Observed Patient Behaviors: Restless ITAL MEDICAL ASSISTANT * Nursing Assessment - Tone Rosario RN [...] for: Psychosocial Assessment: Observed Patient Behaviors: Restless ITAL MEDICAL ASSISTANT * Nursing Assessment - Adelso Huber RN - 11/14/2023 4:30 PM HOSPITAL MEDICAL ASSISTANT Nursing Assessment Head to Toe Head to [...] Behavior: at bedside and attentive to patient ITAL MEDICAL ASSISTANT * Nursing Assessment - Adelso Huber RN - 11/14/2023 10:17 AM HOSPITAL MEDICAL ASSISTANT Nursing Assessment Head to Toe Head to [...] Behavior: at bedside and attentive to patient ITAL MEDICAL ASSISTANT * Nursing Assessment - Luisa Pablo, RN [...] Behavior: at bedside and attentive to patient ITAL MEDICAL ASSISTANT * Nursing Assessment - Sanjuana Reyes, RN [...] patient and participating in care Comments: Spouse ITAL MEDICAL ASSISTANT * Nursing Assessment - Nikole Diego RN [...] Behavior: at bedside and attentive to patient ITAL MEDICAL ASSISTANT * Nursing Assessment - Lila Reed RN [...] 6 Psychosocial Within Defined Limits Comments: present ITAL MEDICAL ASSISTANT * Nursing Assessment - Bianca Bell RN - 11/12/2023 2:17 PM HOSPITAL MEDICAL ASSISTANT Nursing Assessment Head to Toe Head to [...] Emotional State: Acceptance Family Behavior: not present ITAL MEDICAL ASSISTANT * Nursing Assessment - Teresita Vidales RN [...] 1640 -- 5 Psychosocial Within Defined Limits ITAL MEDICAL ASSISTANT * Nursing Assessment - Teresita Vidales RN [...] Emotional State: Acceptance Family Behavior: not present ITAL MEDICAL ASSISTANT * Nursing Assessment - Nikole Diego RN [...] as he expressed her confusion and decline ITAL MEDICAL ASSISTANT * Nursing Assessment - Carolina Awan RN [...] Cardiac Assessment Within Defined Limits except for: Long Term Acute Care Registered Nurse - remote telemetry Respiratory Assessment Within Defined [...] 1640 -- 4 Psychosocial Within Defined Limits ITAL MEDICAL ASSISTANT * Nursing Assessment - Carolina Awan RN - 11/10/2023 9:30 PM CST Nursing Assessment Head to Toe Head to Toe Assessment Shift Summary Shift Summary Neurologic/Cognitive Assessment Within Defined Limits except for: Orientation: disoriented to place, disoriented to time and disoriented to situation HEENT Within Defined Limits Cardiac Assessment Within Defined Limits except for: Long Term Acute Care Registered Nurse - remote telemetry Respiratory Assessment Within Defined [...] 1640 -- 4 Psychosocial Within Defined Limits ITAL MEDICAL ASSISTANT * Nursing Assessment - Elvira Benitez RN [...] for: Psychosocial Assessment: Verbalized Emotional State: Acceptance ITAL MEDICAL ASSISTANT * Nursing Assessment - Zaira Bellamy, RN [...] Pt stated she is going home today, Heel Trimmer reoriented to POC. Tylenol prn given for [...] for: Psychosocial Assessment: Verbalized Emotional State: Acceptance ITAL MEDICAL ASSISTANT * Nursing Assessment - Quynh Jenkins RN - 11/10/2023 6:46 AM CST Nursing Assessment Head to Toe Head to Toe Assessment Shift Summary Shift Summary Neurologic/Cognitive Assessment Within Defined Limits except for: Orientation: disoriented to place, disoriented to time and disoriented to situation Frequent Neuro Assessments have been documented in the flowsheets HEENT Within Defined Limits Cardiac Assessment Within Defined Limits except for: Long Term Acute Care Registered Nurse - remote telemetry Pacemaker: Pacemaker: No Respiratory [...] 1640 -- 3 Psychosocial Within Defined Limits ITAL MEDICAL ASSISTANT * Nursing Assessment - Anita Keating RN [...] Defined Limits except for: Chest Pain: No Long Term Acute Care Registered Nurse - remote telemetry Pacemaker: Pacemaker: No Respiratory [...] 3 Psychosocial Within Defined Limits Shift Summary ITAL MEDICAL ASSISTANT * Nursing Assessment - Anita Keating RN - 11/09/2023 11:44 AM CST Nursing Assessment Head to Toe Head to Toe Assessment Shift Summary Neurologic/Cognitive Assessment Within Defined Limits except for: Cognition: poor attention/concentration Level of Consciousness: Lethargic Frequent Neuro Assessments have been documented in the flowsheets HEENT Within Defined Limits Cardiac Assessment Within Defined Limits except for: Chest Pain: No Long Term Acute Care Registered Nurse - remote telemetry Pacemaker: Pacemaker: No Respiratory [...] 1640 -- 2 Psychosocial Within Defined Limits ITAL MEDICAL ASSISTANT * Nursing Assessment - Mayte Grover RN [...] Cardiac Assessment Within Defined Limits except for: Long Term Acute Care Registered Nurse - remote telemetry Respiratory Assessment Within Defined [...] 1640 -- 2 Psychosocial Within Defined Limits ITAL MEDICAL ASSISTANT * Nursing Assessment - Chucho Blair, RN [...] pivot to commode. Meds whole with water, tgo-lp-g-time. Otherwise resting between cares with family present. Chucho Blair, RN, 11/08/2023 7:01 PM Neurologic/Cognitive Assessment Within Defined Limits except for: Cognition: poor attention/concentration Level of Consciousness: Lethargic Frequent Neuro Assessments have been documented in the flowsheets HEENT Within Defined Limits Cardiac Assessment Within Defined Limits except for: Long Term Acute Care Registered Nurse - remote telemetry Respiratory Assessment Within Defined [...] 1640 -- 2 Psychosocial Within Defined Limits ITAL MEDICAL ASSISTANT * Nursing Assessment - Tone Rosario RN [...] 1640 -- 1 Psychosocial Within Defined Limits ITAL MEDICAL ASSISTANT * Nursing Assessment - Tone Rosario RN [...] 1640 -- 1 Psychosocial Within Defined Limits ITAL MEDICAL ASSISTANT * Nursing Assessment - Chucho Blair, RN [...] Cardiac Assessment Within Defined Limits except for: Long Term Acute Care Registered Nurse - remote telemetry Respiratory Assessment Within Defined [...] 1640 -- 1 Psychosocial Within Defined Limits ITAL MEDICAL ASSISTANT * Nursing Assessment - Chucho Blair, RN [...] less than 1 Psychosocial Within Defined Limits ITAL MEDICAL ASSISTANT * Nursing Assessment - Tone Rosario RN [...] less than 1 Psychosocial Within Defined Limits ITAL MEDICAL ASSISTANT * Nursing Assessment - Tone Rosario RN [...] less than 1 Psychosocial Within Defined Limits ITAL MEDICAL ASSISTANT * Nursing Assessment - Chantal Higgins RN [...] less than 1 Psychosocial Within Defined Limits ITAL MEDICAL ASSISTANT * Nursing Assessment - Chantal Higgins RN [...] 0710 -- 1 Psychosocial Within Defined Limits ITAL MEDICAL ASSISTANT * Nursing Assessment - Musa De La Torre RN - 11/06/2023 4:25 AM HOSPITAL MEDICAL ASSISTANT Nursing Assessment Head to Toe Head to [...] Cardiac Assessment Within Defined Limits except for: Long Term Acute Care Registered Nurse - remote telemetry Respiratory Within defined limits [...] attentive to patient and interacting with patient ITAL MEDICAL ASSISTANT * Transfer - Musa De La Torre RN - 11/06/2023 12:20 AM CST Images from the original note were not included. TRANSFER IN NOTE D: Patient transferred in to [place] [id number] from [facility] at 2320. Patient condition on [...] De La Torre RN, 11/06/2023 12:22 AM ITAL MEDICAL ASSISTANT * Nursing Assessment - Derek Marie RN - 11/05/2023 10:33 PM CST Nursing Assessment Head to Toe Head to Toe Assessment Shift Summary Shift Summary Neurologic/Cognitive Assessment Within Defined Limits except for: Cognition: poor judgement/safety awareness Level of Consciousness: Lethargic Arousal Level: Arouses to pain HEENT Assessment Within Defined Limits except for: Cardiac Assessment Within Defined Limits except for: Heart sounds: S1, S2 Long Term Acute Care Registered Nurse - bedside telemetry ECG Rhythm: normal sinus [...] interacting with patient and participating in care ITAL MEDICAL ASSISTANT * Nursing Assessment - Eloise Randolph RN - 11/05/2023 8:00 PM CST Nursing Assessment Head to Toe Head to Toe Assessment Shift Summary SHIFT [id number] NEURO - Patient Alert to self, and [...] Cardiac Assessment Within Defined Limits except for: Long Term Acute Care Registered Nurse - bedside telemetry ECG Rhythm: normal sinus [...] with patient and sitting quietly at bedside ITAL MEDICAL ASSISTANT * Nursing Assessment - José Urbano RN [...] Cardiac Assessment Within Defined Limits except for: Long Term Acute Care Registered Nurse - bedside telemetry Lead Monitored: Lead II ECG Rhythm: normal sinus rhythm HI Interval (sec): 0.16 QRS Interval (sec): 0.13 [...] less than 1 Psychosocial Within Defined Limits ITAL MEDICAL ASSISTANT * Nursing Assessment - Eloise Randolph RN - 11/05/2023 4:00 PM CST Nursing Assessment Head to Toe Head to Toe Assessment Shift Summary Shift Summary Neurologic/Cognitive Assessment Within Defined Limits except for: Arousal Level: Arouses to voice Orientation: disoriented to time and disoriented to situation Mood/Behavior: Calm HEENT Within Defined Limits Cardiac Assessment Within Defined Limits except for: Long Term Acute Care Registered Nurse - bedside telemetry ECG Rhythm: normal sinus [...] with patient and sitting quietly at bedside ITAL MEDICAL ASSISTANT * Nursing Assessment - José Urbano RN [...] Cardiac Assessment Within Defined Limits except for: Long Term Acute Care Registered Nurse - bedside telemetry Lead Monitored: Lead II ECG Rhythm: normal sinus rhythm HI Interval (sec): 0.16 QRS Interval (sec): 0.13 [...] less than 1 Psychosocial Within Defined Limits ITAL MEDICAL ASSISTANT * Trauma Tertiary Exam - Jesusita Aiken APRN, EMILY - 11/05/2023 7:08 AM CST TRAUMA TERTIARY EXAM - CLERK TELEGRAPH SERVICE First Exam Lucinda Kennedy : 1940 Sex: [...] of the thoracic or lumbar spine. 2. 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 [email or web address] 1. In the past year: Have you felt you should cut down on your drinking? no 2. In the past year: Have people annoyed you by criticizing your drinking? no 3. In the past year: Have you felt bad or guilty about your drinking? no 4. In the past year: Have you had an eye criminalist technician first thing in the morning to steady [...] CFS >/= 7, consult Palliative Care Consult A R COLLECTIONS REP for: TBI or Altered Mental Status *If patient meets criteria for an A R COLLECTIONS REP consult, please order aspiration precautions Mental Health [...] on guard, watchful, or easily startled? no [place] numb or detached from others, activities, or [...] SAH risk for bleeding Diet: NPO until A R COLLECTIONS REP eval Activity: Up ad nia C/T/L-Spine status: cleared Weight-bearing status: no restrictions Therapy: PT, OT, OT for cognitive screen, and A R COLLECTIONS REP Consulting Teams(s) Plan and/or Follow-up Recommendations: Neurosurgery: [...] recommendations, and To be determined. Jesusita Aiken, ENGINEERING PROJECT DESIGNER, DINKEY [employer]RAKEMAN 11/05/2023 07:08 ITAL MEDICAL ASSISTANT * Nursing Assessment - Rafa Tineo RN [...] Cardiac Assessment Within Defined Limits except for: Long Term Acute Care Registered Nurse - bedside telemetry Lead Monitored: Lead II [...] Behavior: at bedside and interacting with patient ITAL MEDICAL ASSISTANT * Nursing Assessment - Rafa Tineo RN [...] Cardiac Assessment Within Defined Limits except for: Long Term Acute Care Registered Nurse - bedside telemetry Lead Monitored: Lead II [...] Behavior: at bedside and interacting with patient ITAL MEDICAL ASSISTANT * Interdisciplinary Note - Amelia Lobo MD - 11/05/2023 12:16 AM HOSPITAL MEDICAL ASSISTANT Patient oriented to self, date, family and medical history. Discussed code status with patient. Shewishes to be full code accepting of CPR and intubation at this time. Amelia Lobo MD, MPH 11/05/2023 06:17 PGY-5 General Surgery Resident Pager: [phone] or via [employer] ITAL MEDICAL ASSISTANT * Interval Note Provider - Priscilla Holcomb MD - 11/04/2023 11:44 PM HOSPITAL MEDICAL ASSISTANT PROCEDURES I performed the following procedures: Art Line Priscilla Holcomb MD, 11/04/2023 11:44 PM ITAL MEDICAL ASSISTANT * ED Faculty Note - Devin Dougherty [...] placement Devin Dougherty MD, 11/04/2023 11:13 PM ITAL MEDICAL ASSISTANT * ED Stabilization Note - Norm Hernandez MD - 11/04/2023 10:52 PM CST Emergency Medicine Stabilization Room Note Lucinda Kennedy 1940 Sex: female Patient Arrival Date and Time: 11/04/2023 10:[address] Dougherty EM Stabilization Resident Norm Hernandez Stabilization Team RN: Rafa Cornejo HCA: [facility] Trauma Surgery and Neurosurgery Pre-Hospital Events Luicnda Kennedy is a 83 y.o. female presents [...] Disposition Admit to SICU Signed out to [facility] Procedures I performed the following procedures: Adult Trauma Resuscitation. Norm Hernandez MD, PGY-3 Emergency Medicine Resident ITAL MEDICAL ASSISTANT documented in this encounter Plan of Treatment Scheduled Referrals Name Type Priority Associated Diagnoses Orde r Schedule REFERRAL TO TRAUMATIC BRAIN INJURY Referral Routine Fall, initial encounter SDH (subdural hematoma) (CMS) SAH (subarachnoid hemorrhage) (CMS/HHS) Traumatic brain injury with loss of consciousness, initial encounter ([facility]) Ordered: 11/08/2023 documented as of this encounter Procedures Procedure Name Priority Date/Time Associated Diagnosis Comments PANEL BASIC METABOLIC (BMP) Routine 11/16/2023 7:22 AM HOSPITAL MEDICAL ASSISTANT POC GLUCOSE Routine 11/16/2023 6:58 AM HOSPITAL MEDICAL ASSISTANT POC GLUCOSE Routine 11/15/2023 9:15 PM HOSPITAL MEDICAL ASSISTANT POC GLUCOSE Routine 11/15/2023 4:09 PM HOSPITAL MEDICAL ASSISTANT POC GLUCOSE Routine 11/15/2023 12:46 PM HOSPITAL MEDICAL ASSISTANT PANEL BASIC METABOLIC (BMP) Routine 11/15/2023 7:39 AM HOSPITAL MEDICAL ASSISTANT POC GLUCOSE Routine 11/15/2023 6:11 AM HOSPITAL MEDICAL ASSISTANT POC GLUCOSE Routine 11/14/2023 9:02 PM HOSPITAL MEDICAL ASSISTANT POC GLUCOSE Routine 11/14/2023 4:21 PM HOSPITAL MEDICAL ASSISTANT POC GLUCOSE Routine 11/14/2023 12:19 PM HOSPITAL MEDICAL ASSISTANT PANEL BASIC METABOLIC (BMP) Routine 11/14/2023 8:59 AM HOSPITAL MEDICAL ASSISTANT POC GLUCOSE Routine 11/14/2023 8:11 AM HOSPITAL MEDICAL ASSISTANT POC GLUCOSE Routine 11/13/2023 9:15 PM HOSPITAL MEDICAL ASSISTANT POC GLUCOSE Routine 11/13/2023 4:03 PM HOSPITAL MEDICAL ASSISTANT POC GLUCOSE Routine 11/13/2023 11:21 AM HOSPITAL MEDICAL ASSISTANT PANEL BASIC METABOLIC (BMP) Routine 11/13/2023 6:41 AM HOSPITAL MEDICAL ASSISTANT POC GLUCOSE Routine 11/13/2023 6:31 AM HOSPITAL MEDICAL ASSISTANT POC GLUCOSE Routine 11/12/2023 9:21 PM HOSPITAL MEDICAL ASSISTANT POC GLUCOSE Routine 11/12/2023 4:12 PM HOSPITAL MEDICAL ASSISTANT PANEL BASIC METABOLIC (BMP) Timed 11/12/2023 1:01 PM HOSPITAL MEDICAL ASSISTANT POC GLUCOSE Routine 11/12/2023 12:14 PM HOSPITAL MEDICAL ASSISTANT POC GLUCOSE Routine 11/12/2023 6:09 AM HOSPITAL MEDICAL ASSISTANT POC GLUCOSE Routine 11/11/2023 8:48 PM HOSPITAL MEDICAL ASSISTANT POC GLUCOSE Routine 11/11/2023 4:11 PM HOSPITAL MEDICAL ASSISTANT POC GLUCOSE Routine 11/11/2023 11:47 AM HOSPITAL MEDICAL ASSISTANT PHOSPHORUS Routine 11/11/2023 6:09 AM HOSPITAL MEDICAL ASSISTANT PANEL BASIC METABOLIC (BMP) Routine 11/11/2023 6:09 AM HOSPITAL MEDICAL ASSISTANT MAGNESIUM Routine 11/11/2023 6:09 AM HOSPITAL MEDICAL ASSISTANT TC LAB BLOOD DRAW BY VENIPUNCTURE Routine 11/11/2023 6:09 AM HOSPITAL MEDICAL ASSISTANT POC GLUCOSE Routine 11/10/2023 8:58 PM HOSPITAL MEDICAL ASSISTANT POC GLUCOSE Routine 11/10/2023 4:16 PM HOSPITAL MEDICAL ASSISTANT POC GLUCOSE Routine 11/10/2023 11:15 AM HOSPITAL MEDICAL ASSISTANT PHOSPHORUS Routine 11/10/2023 6:17 AM HOSPITAL MEDICAL ASSISTANT PANEL BASIC METABOLIC (BMP) Routine 11/10/2023 6:17 AM HOSPITAL MEDICAL ASSISTANT MAGNESIUM Routine 11/10/2023 6:17 AM HOSPITAL MEDICAL ASSISTANT PC LAB CBC/PLT Routine 11/10/2023 6:17 AM HOSPITAL MEDICAL ASSISTANT POC GLUCOSE Routine 11/09/2023 9:41 PM HOSPITAL MEDICAL ASSISTANT POC GLUCOSE Routine 11/09/2023 3:58 PM HOSPITAL MEDICAL ASSISTANT ANTI XA ASSAY LMW HEPARIN Timed 11/09/2023 2:18 PM HOSPITAL MEDICAL ASSISTANT POC GLUCOSE Routine 11/09/2023 11:28 AM HOSPITAL MEDICAL ASSISTANT XR FOOT RIGHT 3 V AP/OBL/LAT* Routine 11/09/2023 10:36 AM HOSPITAL MEDICAL ASSISTANT POC GLUCOSE Routine 11/09/2023 5:46 AM HOSPITAL MEDICAL ASSISTANT PC VALPROIC ACID LEVEL DEPAHOTE Routine 11/09/2023 5:41 AM HOSPITAL MEDICAL ASSISTANT PHOSPHORUS Routine 11/09/2023 5:41 AM HOSPITAL MEDICAL ASSISTANT PANEL BASIC METABOLIC (BMP) Routine 11/09/2023 5:41 AM HOSPITAL MEDICAL ASSISTANT MAGNESIUM Routine 11/09/2023 5:41 AM HOSPITAL MEDICAL ASSISTANT PC LAB CBC/PLT Routine 11/09/2023 5:41 AM HOSPITAL MEDICAL ASSISTANT POC GLUCOSE Routine 11/08/2023 8:40 PM HOSPITAL MEDICAL ASSISTANT PHOSPHORUS Routine 11/08/2023 4:20 PM HOSPITAL MEDICAL ASSISTANT PANEL BASIC METABOLIC (BMP) Routine 11/08/2023 4:20 PM HOSPITAL MEDICAL ASSISTANT MAGNESIUM Routine 11/08/2023 4:20 PM HOSPITAL MEDICAL ASSISTANT TC LAB BLOOD DRAW BY VENIPUNCTURE Routine 11/08/2023 4:20 PM HOSPITAL MEDICAL ASSISTANT POC GLUCOSE Routine 11/08/2023 3:56 PM HOSPITAL MEDICAL ASSISTANT POC GLUCOSE Routine 11/08/2023 11:03 AM HOSPITAL MEDICAL ASSISTANT XR CHEST 1 VIEW AP OR PA* Routine 11/08/2023 6:30 AM HOSPITAL MEDICAL ASSISTANT POC GLUCOSE Routine 11/08/2023 6:22 AM HOSPITAL MEDICAL ASSISTANT POC GLUCOSE Routine 11/07/2023 9:34 PM HOSPITAL MEDICAL ASSISTANT POC GLUCOSE Routine 11/07/2023 4:06 PM HOSPITAL MEDICAL ASSISTANT POC GLUCOSE Routine 11/07/2023 11:45 AM HOSPITAL MEDICAL ASSISTANT XR CHEST 2 VIEWS PA + LAT* Routine 11/07/2023 10:07 AM HOSPITAL MEDICAL ASSISTANT PC PROCALCITONIN (PCT) Routine 8:34 AM HOSPITAL MEDICAL ASSISTANT PHOSPHORUS Routine 11/07/2023 8:34 AM HOSPITAL MEDICAL ASSISTANT PANEL BASIC METABOLIC (BMP) Routine 11/07/2023 8:34 AM HOSPITAL MEDICAL ASSISTANT MAGNESIUM Routine 11/07/2023 8:34 AM HOSPITAL MEDICAL ASSISTANT PC LAB CBC/PLT Routine 11/07/2023 8:34 AM HOSPITAL MEDICAL ASSISTANT POC GLUCOSE Routine 11/07/2023 5:45 AM HOSPITAL MEDICAL ASSISTANT POC GLUCOSE Routine 11/06/2023 9:21 PM HOSPITAL MEDICAL ASSISTANT PHOSPHORUS Timed 11/06/2023 1:06 PM HOSPITAL MEDICAL ASSISTANT PANEL BASIC METABOLIC (BMP) Timed 11/06/2023 1:06 PM HOSPITAL MEDICAL ASSISTANT MAGNESIUM Timed 11/06/2023 1:06 PM HOSPITAL MEDICAL ASSISTANT PC GASES,BLOOD,ANY COMB OF PH,PCD2,PO2,CO2,HCO2 Routine 11/06/2023 1:06 PM HOSPITAL MEDICAL ASSISTANT PC LAB CBC/PLT Timed 11/06/2023 1:06 PM HOSPITAL MEDICAL ASSISTANT POC GLUCOSE Routine 11/06/2023 1:04 PM HOSPITAL MEDICAL ASSISTANT POC GLUCOSE Routine 11/06/2023 10:49 AM HOSPITAL MEDICAL ASSISTANT PC MAGNESIUM, SERUM Routine 11/06/2023 6 :31 AM HOSPITAL MEDICAL ASSISTANT PC PHOSPHORUS INORGANIC(PHOSPHATE) Routine 11/06/2023 6:31 AM HOSPITAL MEDICAL ASSISTANT PC LAB CBC/PLT Routine 11/06/2023 6:31 AM HOSPITAL MEDICAL ASSISTANT TC LAB BLOOD DRAW BY VENIPUNCTURE Routine 11/06/2023 6:31 AM HOSPITAL MEDICAL ASSISTANT PROTHROMBIN (PT) & INR Timed 6:31 AM HOSPITAL MEDICAL ASSISTANT PC LAB GLYCOSYLATED HGB Routine 11/06/2023 6:31 AM HOSPITAL MEDICAL ASSISTANT POC GLUCOSE Routine 11/06/2023 5:39 AM HOSPITAL MEDICAL ASSISTANT POC GLUCOSE Routine 11/05/2023 4:54 PM HOSPITAL MEDICAL ASSISTANT MAGNESIUM Routine 11/05/2023 4:48 PM HOSPITAL MEDICAL ASSISTANT POTASSIUM Routine 11/05/2023 4:[address] [address] HEAD NO IV CONTRAST Timed 11:44 AM HOSPITAL MEDICAL ASSISTANT POC GLUCOSE Routine 11/05/2023 11:11 AM HOSPITAL MEDICAL ASSISTANT EKG ADULT (12-LEAD) Routine 11/05/2023 6 :38 AM HOSPITAL MEDICAL ASSISTANT POC GLUCOSE Routine 11/05/2023 6:[address] [facility] [address] CT HEAD NO IV CONTRAST Timed 4:54 AM HOSPITAL MEDICAL ASSISTANT PC MAGNESIUM, SERUM Routine 11/05/2023 4 :27 AM HOSPITAL MEDICAL ASSISTANT PC PHOSPHORUS INORGANIC(PHOSPHATE) Routine 11/05/2023 4:27 AM HOSPITAL MEDICAL ASSISTANT PC GASES,BLOOD,ANY COMB OF PH,PCD2,PO2,CO2,HCO2 Routine 11/05/2023 4:27 AM HOSPITAL MEDICAL ASSISTANT PC LAB CBC/PLT Routine 11/05/2023 4:27 AM HOSPITAL MEDICAL ASSISTANT TC LAB BLOOD DRAW BY VENIPUNCTURE Routine 11/05/2023 4:27 AM HOSPITAL MEDICAL ASSISTANT PC TROPONIN QUANTITATIVE Timed 11/05/2023 4:27 AM HOSPITAL MEDICAL ASSISTANT PROTHROMBIN (PT) & INR Timed 4:27 AM HOSPITAL MEDICAL ASSISTANT PC TROPONIN QUANTITATIVE Timed 11/05/2023 2:58 AM HOSPITAL MEDICAL ASSISTANT PROTHROMBIN (PT) & INR STAT 1:32 AM HOSPITAL MEDICAL ASSISTANT PHOSPHORUS STAT 11/05/2023 1:32 AM HOSPITAL MEDICAL ASSISTANT PANEL BASIC METABOLIC (BMP) STAT 11/05/2023 1:32 AM HOSPITAL MEDICAL ASSISTANT MAGNESIUM STAT 11/05/2023 1:32 AM HOSPITAL MEDICAL ASSISTANT PANEL HEPATIC FUNCTION STAT 1:32 AM HOSPITAL MEDICAL ASSISTANT FIBRINOGEN STAT 11/05/2023 1:32 AM HOSPITAL MEDICAL ASSISTANT CK, TOTAL STAT 11/05/2023 1:32 AM HOSPITAL MEDICAL ASSISTANT PC LAB CBC/PLT STAT 11/05/2023 1:32 AM HOSPITAL MEDICAL ASSISTANT PC LAB PTT STAT 11/05/2023 1:32 AM HOSPITAL MEDICAL ASSISTANT PC TROPONIN QUANTITATIVE Timed 11/05/2023 1:18 AM HOSPITAL MEDICAL ASSISTANT PC LACTATE (LACTIC ACID) STAT 11/05/2023 1:18 AM HOSPITAL MEDICAL ASSISTANT PC IONIZED,CALCIUM STAT 11/05/2023 1: 18 AM HOSPITAL MEDICAL ASSISTANT PC GASES,BLOOD,ANY COMB OF PH,PCD2,PO2,CO2,HCO2 STAT 11/05/2023 1:[address] [facility] [address] CT HEAD-NECK - ANGIO - W/IV CON STAT 11/05/2023 12:09 AM HOSPITAL MEDICAL ASSISTANT PC LAB COMPLETE UA STAT 11/04/2023 11 :55 PM HOSPITAL MEDICAL ASSISTANT PF INSERT CATH,ART,PERCUT,SANTA ERM Routine 11/04/2023 11:43 PM HOSPITAL MEDICAL ASSISTANT ED EKG (12-LEAD) Routine 11/04/2023 11:2 [address] MED[facility] [address] CT SPINE THORACIC NO IV CON STAT 11/04/2023 11:[address] [facility] [address] SPINE LUMBAR NO IV CON STAT 11/04/2023 11:[address] [address] CT SPINE CERVICAL NO IV CON STAT 11/04/2023 11:[address] [facility] [address] CT HEAD NO IV CONTRAST STAT 11:[address] [facility] [address] CT CHEST/ABD/PELVIS W/IV CONT STAT 11/04/2023 11:05 PM HOSPITAL MEDICAL ASSISTANT XR CHEST 1 VIEW AP OR PA* STAT 11/04/2023 10:57 PM HOSPITAL MEDICAL ASSISTANT PC ELECTROLYTES PANEL STAT 11/04/2023 10:48 PM HOSPITAL MEDICAL ASSISTANT TC LAB ER STAT TOTAL HGB STAT 11/04/2023 10:48 PM HOSPITAL MEDICAL ASSISTANT PC LAB ED INR STAT 11/04/2023 10:45 PM HOSPITAL MEDICAL ASSISTANT TC LAB BLOOD DRAW BY VENIPUNCTURE Routine 11/04/2023 10:45 PM HOSPITAL MEDICAL ASSISTANT EXTRA TUBE - SST Routine 11/04/2023 10:4 5 PM HOSPITAL MEDICAL ASSISTANT PC TROPONIN QUANTITATIVE STAT 11/04/2023 10:45 PM HOSPITAL MEDICAL ASSISTANT PC LAB CBC W/DIFF & PLT STAT 11/04/2023 10:45 PM HOSPITAL MEDICAL ASSISTANT PRECAUTIONARY TUBE STAT 11/04/2023 10 :45 PM HOSPITAL MEDICAL ASSISTANT PC LACTATE (LACTIC ACID) STAT 11/04/2023 10:45 PM HOSPITAL MEDICAL ASSISTANT PC GASES,BLOOD,ANY COMB OF PH,PCD2,PO2,CO2,HCO2 STAT 11/04/2023 10:45 PM HOSPITAL MEDICAL ASSISTANT FIBRINOGEN STAT 11/04/2023 10:45 PM HOSPITAL MEDICAL ASSISTANT PC HEPARIN ASSAY STAT 11/04/2023 10:4 5 PM HOSPITAL MEDICAL ASSISTANT PC LAB PTT STAT 11/04/2023 10:45 PM HOSPITAL MEDICAL ASSISTANT ED US CRITICAL CARE STAT 11/04/2023 1 0:40 PM HOSPITAL MEDICAL ASSISTANT documented in this encounter Results * (ABNORMAL) PANEL BASIC METABOLIC (BMP) (11/16/2023 7:22 AM HOSPITAL MEDICAL ASSISTANT) Sodium 143 135 - 148 mEq/L [facility] Potassium 3.9 3.5 - 5.3 mEq/L [facility] Chloride 105 92 - 108 mEq/L [facility] CO2 27 22 - 30 mEq/L [facility] AnGap 11 8 - 16 mEq/L [facility] Glucose 87 70 - 100 mg/dL [facility] BUN 23 8 - 23 mg/dL [facility] Creatinine 1.19(H) 0.50 - 1.00 mg/dL [facility] Calcium 9.4 8.8 - 10.2 mg/dL [facility] eGFR (2020 CKD-EPI) 46(L) >=60 ml/min/1.7 3m2 [facility] Comment: The estimated glomerular filtration rate (eGFR) was calculated using the CKD-EPI 2020 creatinine equation, which does not include race as a factor. This equation is validated in individuals 18 years of age and older, and eGFR is normalized to a body surface area of 1.73m^2. Blood 11/16/2023 7:22 AM HOSPITAL MEDICAL ASSISTANT 11/16/2023 7:43 AM HOSPITAL MEDICAL ASSISTANT Jesusita Aiken APRN, EMILY LABORATO RY Performing Organization Address City/[facility]/ZIP Co de Phone Number [facility] [place] [address] * POC GLUCOSE (11/16/2023 6:58 AM HOSPITAL MEDICAL ASSISTANT) POC Glucose 84 70 - 100 mg/dL [facility] Blood 11/16/2023 6:58 AM HOSPITAL MEDICAL ASSISTANT Devin Dougherty MD LABORATORY Performing Organization Address City/[facility]/ZIP Co de Phone Number [facility] [address] [place] [address], [place] * POC GLUCOSE (11/15/2023 9:15 PM HOSPITAL MEDICAL ASSISTANT) POC Glucose 83 70 - 100 mg/dL [facility] Blood 11/15/2023 9:15 PM HOSPITAL MEDICAL ASSISTANT Devin Dougherty MD LABORATORY Performing Organization Address City/[facility]/ZIP Co de Phone Number [facility]ARE [address] [place] [address], [place] * POC GLUCOSE (11/15/2023 4:09 PM HOSPITAL MEDICAL ASSISTANT) POC Glucose 91 70 - 100 mg/dL [facility] Blood 11/15/2023 4:09 PM HOSPITAL MEDICAL ASSISTANT Devin Dougherty MD LABORATORY Performing Organization Address City/[facility] Co de Phone Number [facility]ARE [address] [place] [address], [place] * POC GLUCOSE (11/15/2023 12:46 PM HOSPITAL MEDICAL ASSISTANT) POC Glucose 88 70 - 100 mg/dL [facility] Blood 11/15/2023 12:4 6 PM HOSPITAL MEDICAL ASSISTANT Devin Dougherty MD LABORATORY Performing Organization Address City/[facility] Co de Phone Number [facility]ARE [address] [place] [address], [place] * PANEL BASIC METABOLIC (BMP) (11/15/2023 7:39 AM HOSPITAL MEDICAL ASSISTANT) CO2 27 22 - 30 mEq/L [facility] Glucose 96 70 - 100 mg/dL [facility] BUN 20 8 - 23 mg/dL [facility] Creatinine 0.89 0.50 - 1.00 mg/dL [facility] Calcium 9.4 8.8 - 10.2 mg/dL [facility] Sodium 142 135 - 148 mEq/L [facility] Potassium 3.7 3.5 - 5.3 mEq/L [facility] Chloride 104 92 - 108 mEq/L [facility] eGFR (2020 CKD-EPI) 65 >=60 ml/min/1.7 3m2 [facility] Comment: The estimated glomerular filtration rate (eGFR) was calculated using the CKD-EPI 2020 creatinine equation, which does not include race as a factor. This equation is validated in individuals 18 years of age and older, and eGFR is normalized to a body surface area of 1.73m^2. AnGap 11 8 - 16 mEq/L [facility] Blood 11/15/2023 7:39 AM HOSPITAL MEDICAL ASSISTANT 11/15/2023 8:31 AM HOSPITAL MEDICAL ASSISTANT Jesusita Aiken APRN, DIN[facility] LABORATO RY [facility] [place] [address] * (ABNORMAL) POC GLUCOSE (11/15/2023 6:11 AM HOSPITAL MEDICAL ASSISTANT) POC Glucose 105(H) 70 - 100 mg/dL [facility] Blood 11/15/2023 6:11 AM HOSPITAL MEDICAL ASSISTANT Devin Dougherty MD LABORATORY Performing Organization Address City/[facility] Co de Phone Number [facility] [place] [phone], [place] * (ABNORMAL) POC GLUCOSE (11/14/2023 9:02 PM HOSPITAL MEDICAL ASSISTANT) POC Glucose 168(H) 70 - 100 mg/dL [facility] Blood 11/14/2023 9:02 PM HOSPITAL MEDICAL ASSISTANT Devin Dougherty MD LABORATORY Performing Organization Address City/[facility] Co de Phone Number [facility] [address] [place] [address], [place] * (ABNORMAL) POC GLUCOSE (11/14/2023 4:21 PM HOSPITAL MEDICAL ASSISTANT) POC Glucose 128(H) 70 - 100 mg/dL [facility] Blood 11/14/2023 4:21 PM HOSPITAL MEDICAL ASSISTANT Devin Dougherty MD LABORATORY Performing Organization Address City/[facility] Co de Phone Number [facility]ARE [address] [place] [address], [place] * POC GLUCOSE (11/14/2023 12:19 PM HOSPITAL MEDICAL ASSISTANT) POC Glucose 84 70 - 100 mg/dL [facility] Blood 11/14/2023 12:1 9 PM HOSPITAL MEDICAL ASSISTANT Devin Dougherty MD LABORATORY Performing Organization Address City/[facility] Co de Phone Number [facility] POINT OF [facility] [address] [place] [address], [place] * (ABNORMAL) PANEL BASIC METABOLIC (BMP) (11/14/2023 8:59 AM HOSPITAL MEDICAL ASSISTANT) CO2 28 22 - 30 mEq/L [facility] Glucose 158(H) 70 - 100 mg/dL [facility] BUN 19 8 - 23 mg/dL [facility] Creatinine 0.79 0.50 - 1.00 mg/dL [facility] Calcium 9.3 8.8 - 10.2 mg/dL [facility] eGFR (2020 CKD-EPI) 75 >=60 ml/min/1.7 3m2 [facility] Comment: The estimated glomerular filtration rate (eGFR) was calculated using the CKD-EPI 2020 creatinine equation, which does not include race as a factor. This equation is validated in individuals 18 years of age and older, and eGFR is normalized to a body surface area of 1.73m^2. Sodium 142 135 - 148 mEq/L [facility] Potassium 3.8 3.5 - 5.3 mEq/L [facility] Chloride 103 92 - 108 mEq/L [facility] AnGap 11 8 - 16 mEq/L [facility] Blood 11/14/2023 8:59 AM HOSPITAL MEDICAL ASSISTANT 11/14/2023 9:21 AM HOSPITAL MEDICAL ASSISTANT Jesusita Aiken APRN, [facility] RY [facility] [address] [place] [phone] * (ABNORMAL) POC GLUCOSE (11/14/2023 8:11 AM HOSPITAL MEDICAL ASSISTANT) POC Glucose 139(H) 70 - 100 mg/dL [facility] Blood 11/14/2023 8:11 AM HOSPITAL MEDICAL ASSISTANT Devin Dougherty MD LABORATORY [facility]INT OF CARE [address] [place] [address], [place] * (ABNORMAL) POC GLUCOSE (11/13/2023 9:15 PM HOSPITAL MEDICAL ASSISTANT) POC Glucose 120(H) 70 - 100 mg/dL [facility] Blood 11/13/2023 9:15 PM HOSPITAL MEDICAL ASSISTANT Devin Dougherty MD LABORATORY Performing Organization Address City/[facility] Co de Phone Number [facility] POINT OF [address] [address], [place] * (ABNORMAL) POC GLUCOSE (11/13/2023 4:03 PM HOSPITAL MEDICAL ASSISTANT) POC Glucose 169(H) 70 - 100 mg/dL [facility] Blood 11/13/2023 4:03 PM HOSPITAL MEDICAL ASSISTANT Devin Dougherty MD LABORATORY [facility]ARE [address] [place] [address], [place] * (ABNORMAL) POC GLUCOSE (11/13/2023 11:21 AM HOSPITAL MEDICAL ASSISTANT) POC Glucose 166(H) 70 - 100 mg/dL [facility] Blood 11/13/2023 11:2 1 AM HOSPITAL MEDICAL ASSISTANT Devin Dougherty MD LABORATORY Performing Organization Address [facility] Co de Phone Number [facility] [address] [place] [address] * (ABNORMAL) PANEL BASIC METABOLIC (BMP) (11/13/2023 6:41 AM HOSPITAL MEDICAL ASSISTANT) CO2 30 22 - 30 mEq/L [facility] Glucose 121(H) 70 - 100 mg/dL [facility] BUN 24(H) 8 - 23 mg/dL [facility] Creatinine 0.87 0.50 - 1.00 mg/dL [facility] Calcium 8.9 8.8 - 10.2 mg/dL [facility] Sodium 143 135 - 148 mEq/L [facility] Potassium 3.0(L) 3.5 - 5.3 mEq/L [facility] Chloride 103 92 - 108 mEq/L [facility] eGFR (2020 CKD-EPI) 67 >=60 ml/min/1.7 3m2 [facility] Comment: The estimated glomerular filtration rate (eGFR) was calculated using the CKD-EPI 2020 creatinine equation, which does not include race as a factor. This equation is validated in individuals 18 years of age and older, and eGFR is normalized to a body surface area of 1.73m^2. AnGap 10 8 - 16 mEq/L [facility] Blood 11/13/2023 6:41 AM HOSPITAL MEDICAL ASSISTANT 11/13/2023 7:37 AM HOSPITAL MEDICAL ASSISTANT Quinn Covarrubias MD LABORATORY Performing Organization Address [facility] Co de Phone Number [facility] [place] [address] * (ABNORMAL) POC GLUCOSE (11/13/2023 6:31 AM HOSPITAL MEDICAL ASSISTANT) POC Glucose 128(H) 70 - 100 mg/dL [facility] Blood 11/13/2023 6:31 AM HOSPITAL MEDICAL ASSISTANT Devin Dougherty MD LABORATORY Performing Organization Address City/[facility]/ZIP Co de Phone Number [facility] [address] [place] [address], [place] * POC GLUCOSE (11/12/2023 9:21 PM HOSPITAL MEDICAL ASSISTANT) [facility] POC Glucose 97 70 - 100 mg/dL [facility] Comment:R2 <=% Blood 11/12/2023 9:21 PM HOSPITAL MEDICAL ASSISTANT Devin Dougherty MD LABORATORY Performing Organization Address [facility] Co de Phone Number [facility]ARE [address] [place] [address], [place] * POC GLUCOSE (11/12/2023 4:12 PM HOSPITAL MEDICAL ASSISTANT) [facility] POC Glucose 89 70 - 100 mg/dL [facility] POINT OF [facility] Blood 11/12/2023 4:12 PM HOSPITAL MEDICAL ASSISTANT Devin Dougherty MD LABORATORY Performing Organization Address [facility] Co de Phone Number [facility]ARE [address] [place] [address], [place] * (ABNORMAL) PANEL BASIC METABOLIC (BMP) (11/12/2023 1:01 PM HOSPITAL MEDICAL ASSISTANT) [facility] Sodium 144 135 - 148 mEq/L [facility] Potassium 3.4(L) 3.5 - 5.3 mEq/L [facility] Chloride 104 92 - 108 mEq/L [facility] CO2 31(H) 22 - 30 mEq/L [facility] AnGap 9 8 - 16 mEq/L [facility] Glucose 118(H) 70 - 100 mg/dL [facility] BUN 29(H) 8 - 23 mg/dL [facility] Creatinine 0.92 0.50 - 1.00 mg/dL [facility] Calcium 9.3 8.8 - 10.2 mg/dL [facility] eGFR (2020 CKD-EPI) 63 >=60 ml/min/1.7 3m2 [facility] Comment: The estimated glomerular filtration rate (eGFR) was calculated using the CKD-EPI 2020 creatinine equation, which does not include race as a factor. This equation is validated in individuals 18 years of age and older, and eGFR is normalized to a body surface area of 1.73m^2. Blood 11/12/2023 1:01 PM HOSPITAL MEDICAL ASSISTANT 11/12/2023 1:44 PM HOSPITAL MEDICAL ASSISTANT Quinn Covarrubias MD LABORATORY [facility] [address] [place] [address] * (ABNORMAL) POC GLUCOSE (11/12/2023 12:14 PM HOSPITAL MEDICAL ASSISTANT) POC Glucose 117(H) 70 - 100 mg/dL [facility] Blood 11/12/2023 12:1 4 PM HOSPITAL MEDICAL ASSISTANT Devin Dougherty MD LABORATORY Performing Organization Address City/[facility]/ZIP Co de Phone Number [facility] POINT OF [facility] [address] [place] [address], [place] * POC GLUCOSE (11/12/2023 6:09 AM HOSPITAL MEDICAL ASSISTANT) POC Glucose 80 70 - 100 mg/dL [facility] Blood 11/12/2023 6:09 AM HOSPITAL MEDICAL ASSISTANT Devin Dougherty MD LABORATORY Performing Organization Address City/[facility]/ZIP Co de Phone Number [facility]ARE [address] [place] [address], [place] * POC GLUCOSE (11/11/2023 8:48 PM HOSPITAL MEDICAL ASSISTANT) POC Glucose 99 70 - 100 mg/dL [facility] Blood 11/11/2023 8:48 PM HOSPITAL MEDICAL ASSISTANT Devin Dougherty MD LABORATORY [facility] PO[facility] OF CARE [address] [place] [address], [place] * POC GLUCOSE (11/11/2023 4:11 PM HOSPITAL MEDICAL ASSISTANT) POC Glucose 93 70 - 100 mg/dL [facility] Blood 11/11/2023 4:11 PM HOSPITAL MEDICAL ASSISTANT Devin Dougherty MD LABORATORY Performing Organization Address City/[facility]/ZIP Co de Phone Number [facility] POINT OF CARE [address] [place] [phone], [place] * POC GLUCOSE (11/11/2023 11:47 AM HOSPITAL MEDICAL ASSISTANT) Pathologist [facility] POC Glucose 89 70 - 100 mg/dL [facility] Blood 11/11/2023 11:4 7 AM HOSPITAL MEDICAL ASSISTANT Devin Dougherty MD LABORATORY Performing Organization Address City/[facility] Co de Phone Number [facility] [address] [place] [phone], [place] * PHOSPHORUS (11/11/2023 6:09 AM HOSPITAL MEDICAL ASSISTANT) Pathologist [facility] Phosphorus 3.5 2.5 - 4.5 mg/dL [facility] Blood 11/11/2023 6:09 AM HOSPITAL MEDICAL ASSISTANT 11/11/2023 6:36 AM HOSPITAL MEDICAL ASSISTANT Quinn Covarrubias MD LABORATORY Performing Organization Address City/[facility] Co de Phone Number [facility] [address] [address] * (ABNORMAL) PANEL BASIC METABOLIC (BMP) (11/11/2023 6:09 AM HOSPITAL MEDICAL ASSISTANT) Pathologist [facility] Sodium 143 135 - 148 mEq/L [facility] Potassium 3.3(L) 3.5 - 5.3 mEq/L [facility] Chloride 106 92 - 108 mEq/L [facility] AnGap 8 8 - 16 mEq/L [facility] CO2 29 22 - 30 mEq/L [facility] Glucose 79 70 - 100 mg/dL [facility] BUN 30(H) 8 - 23 mg/dL [facility] Creatinine 0.83 0.50 - 1.00 mg/dL [facility] Calcium 9.0 8.8 - 10.2 mg/dL [facility] eGFR (2020 CKD-EPI) 71 >=60 ml/min/1.7 3m2 [facility] Comment: The estimated glomerular filtration rate (eGFR) was calculated using the CKD-EPI 2020 creatinine equation, which does not include race as a factor. This equation is validated in individuals 18 years of age and older, and eGFR is normalized to a body surface area of 1.73m^2. Blood 11/11/2023 6:09 AM HOSPITAL MEDICAL ASSISTANT 11/11/2023 6:36 AM HOSPITAL MEDICAL ASSISTANT Quinn Covarrubias MD LABORATORY Performing Organization Address City/[facility] Co de Phone Number [facility] [address] [address] * MAGNESIUM (11/11/2023 6:09 AM HOSPITAL MEDICAL ASSISTANT) Pathologist [facility] Magnesium 2.2 1.6 - 2.4 mg/dL [facility] Blood 11/11/2023 6:09 AM HOSPITAL MEDICAL ASSISTANT 11/11/2023 6:36 AM HOSPITAL MEDICAL ASSISTANT Quinn Covarrubias MD LABORATORY Performing Organization Address [facility] Co de Phone Number [facility] [address] [address] [address] * (ABNORMAL) CBC WITH PLATELET (11/11/2023 6:09 AM HOSPITAL MEDICAL ASSISTANT) WBC 5.60 4.00 - 10.00 k/cmm [facility] RBC 3.80(L) 3.90 - 5.20 m/cmm [facility] Hgb 9.5(L) 11.5 - 15.7 g/dL [facility] Hematocrit 31.4(L) 34.0 - 45.0 % [facility] MCV 82.6 80.0 - 100.0 fL [facility] MCH 25.0 25.0 - 32.0 pg [facility] MCHC 30.3(L) 31.0 - 36.0 g/dL [facility] RDW 16.1(H) 11.5 - 14.5 % [facility] Plt 275 150 - 400 k/cmm [facility] MPV 11.8 6.5 - 12.5 fL [facility] Blood 11/11/2023 6:09 AM HOSPITAL MEDICAL ASSISTANT 11/11/2023 6:36 AM HOSPITAL MEDICAL ASSISTANT Quinn Covarrubias MD LABORATORY [facility] [address] [place] [address] * POC GLUCOSE (11/10/2023 8:58 PM HOSPITAL MEDICAL ASSISTANT) POC Glucose 82 70 - 100 mg/dL [facility] Blood 11/10/2023 8:58 PM HOSPITAL MEDICAL ASSISTANT Devin Dougherty MD LABORATORY Performing Organization Address City/[facility]/ZIP Co de Phone Number [facility] [address] [place] [address], [place] * (ABNORMAL) POC GLUCOSE (11/10/2023 4:16 PM HOSPITAL MEDICAL ASSISTANT) POC Glucose 110(H) 70 - 100 mg/dL [facility] Blood 11/10/2023 4:16 PM HOSPITAL MEDICAL ASSISTANT Devin Dougherty MD LABORATORY Performing Organization Address [facility] Co de Phone Number [facility] POINT OF [facility] [address] [place] [address], [place] * POC GLUCOSE (11/10/2023 11:15 AM HOSPITAL MEDICAL ASSISTANT) POC Glucose 93 70 - 100 mg/dL [facility] Blood 11/10/2023 11:1 5 AM HOSPITAL MEDICAL ASSISTANT Devin Dougherty MD LABORATORY [facility] [address] [place] [address], [place] * PHOSPHORUS (11/10/2023 6:17 AM HOSPITAL MEDICAL ASSISTANT) Phosphorus 3.8 2.5 - 4.5 mg/dL [facility] Blood 11/10/2023 6:17 AM HOSPITAL MEDICAL ASSISTANT 11/10/2023 6:32 AM HOSPITAL MEDICAL ASSISTANT Quinn Covrarubias MD LABORATORY Performing Organization Address City/[facility] Co de Phone Number [facility] [address] [address] * (ABNORMAL) PANEL BASIC METABOLIC (BMP) (11/10/2023 6:17 AM HOSPITAL MEDICAL ASSISTANT) Sodium 145 135 - 148 mEq/L [facility] Potassium 3.6 3.5 - 5.3 mEq/L [facility] Chloride 107 92 - 108 mEq/L [facility] CO2 27 22 - 30 mEq/L [facility] Glucose 109(H) 70 - 100 mg/dL [facility] BUN 40(H) 8 - 23 mg/dL [facility] Creatinine 1.15(H) 0.50 - 1.00 mg/dL [facility] Calcium 9.1 8.8 - 10.2 mg/dL [facility] AnGap 11 8 - 16 mEq/L [facility] eGFR (2020 CKD-EPI) 48(L) >=60 ml/min/1.7 3m2 [facility] Comment: The estimated glomerular filtration rate (eGFR) was calculated using the CKD-EPI 2020 creatinine equation, which does not include race as a factor. This equation is validated in individuals 18 years of age and older, and eGFR is normalized to a body surface area of 1.73m^2. Blood 11/10/2023 6:17 AM HOSPITAL MEDICAL ASSISTANT 11/10/2023 6:32 AM HOSPITAL MEDICAL ASSISTANT Quinn Covarrubias MD LABORATORY Performing Organization Address City/[facility]/ZIP Co de Phone Number [facility] [address] [address] * MAGNESIUM (11/10/2023 6:17 AM HOSPITAL MEDICAL ASSISTANT) Magnesium 2.3 1.6 - 2.4 mg/dL [facility] Blood 11/10/2023 6:17 AM HOSPITAL MEDICAL ASSISTANT 11/10/2023 6:32 AM HOSPITAL MEDICAL ASSISTANT Quinn Covarrubias MD LABORATORY Performing Organization Address City/[facility]/ZIP Co de Phone Number [facility] [address] [address] * (ABNORMAL) CBC WITH PLATELET (11/10/2023 6:17 AM HOSPITAL MEDICAL ASSISTANT) Pathologist [facility] WBC 6.82 4.00 - 10.00 k/cmm [facility] RBC 3.64(L) 3.90 - 5.20 m/cmm [facility] Hgb 9.1(L) 11.5 - 15.7 g/dL [facility] Hematocrit 30.3(L) 34.0 - 45.0 % [facility] MCV 83.2 80.0 - 100.0 fL [facility] MCH 25.0 25.0 - 32.0 pg [facility] MCHC 30.0(L) 31.0 - 36.0 g/dL [facility] RDW 16.1(H) 11.5 - 14.5 % [facility] Plt 259 150 - 400 k/cmm [facility] MPV 11.8 6.5 - 12.5 fL [facility] Blood 11/10/2023 6:17 AM HOSPITAL MEDICAL ASSISTANT 11/10/2023 6:32 AM HOSPITAL MEDICAL ASSISTANT Quinn Covarrubias MD LABORATORY Performing Organization Address [facility]/ZIP Co de Phone Number [facility] [address] [address] * (ABNORMAL) POC GLUCOSE (11/09/2023 9:41 PM HOSPITAL MEDICAL ASSISTANT) Pathologist [facility] POC Glucose 136(H) 70 - 100 mg/dL [facility]ARE Blood 11/09/2023 9:41 PM HOSPITAL MEDICAL ASSISTANT Devin Dougherty MD LABORATORY [facility] POINT [facility] CARE [address] [place] [address], [place] * (ABNORMAL) POC GLUCOSE (11/09/2023 3:58 PM HOSPITAL MEDICAL ASSISTANT) Pathologist [facility] POC Glucose 157(H) 70 - 100 mg/dL [facility] Blood 11/09/2023 3:58 PM HOSPITAL MEDICAL ASSISTANT Devin Dougherty MD LABORATORY Performing Organization Address [facility] Co de Phone Number [facility] POINT OF [facility] [address] [place] [address], [place] * ANTI XA ASSAY LMW HEPARIN (11/09/2023 2:18 PM HOSPITAL MEDICAL ASSISTANT) Anti XA LMW 0.32 IU/mL [facility] Comment: Anti Xa Assay LMW Heparin Therapeutic Ranges: 0.4-1.1 IU/mL for twice daily 1.0-2.0 IU/mL for once daily Blood 11/09/2023 2:18 PM HOSPITAL MEDICAL ASSISTANT 11/09/2023 2:29 PM HOSPITAL MEDICAL ASSISTANT Quinn Covarrubias MD LABORATORY Performing Organization Address [facility] Co de Phone Number [facility] [address] [address] * (ABNORMAL) POC GLUCOSE (11/09/2023 11:28 AM HOSPITAL MEDICAL ASSISTANT) POC Glucose 174(H) 70 - 100 mg/dL [facility] Blood 11/09/2023 11:2 8 AM HOSPITAL MEDICAL ASSISTANT Devin Dougherty MD LABORATORY Performing Organization Address [facility] Co de Phone Number [facility] POINT OF CARE [address] [place] [address], [place] * XR FOOT RIGHT 3 V AP/OBL/LAT* (11/09/2023 10:36 AM HOSPITAL MEDICAL ASSISTANT) Anatomical Region Laterality Modality Foot Computed Radiogr aphy 11/09/2023 10:4 7 AM HOSPITAL MEDICAL ASSISTANT Impressions 11/09/2023 10:50 AM HOSPITAL MEDICAL ASSISTANT Impression: No acute osseous abnormality. Generalized osteopenia. Reading Radiologist: Angela Camp Narrative 11/09/2023 10:50 AM HOSPITAL MEDICAL ASSISTANT Technique: XR FOOT RIGHT 3 V AP/OBL/LAT* [...] osteopenia. Reading Radiologist: Angela Camp Jesusita Aiken ENGINEERING PROJECT DESIGNER, DINKEY BRAKEMAN RAD XRAY * POC GLUCOSE (11/09/2023 5:46 AM HOSPITAL MEDICAL ASSISTANT) [facility] Signature POC Glucose 97 70 - 100 mg/dL [facility] Blood 11/09/2023 5:46 AM HOSPITAL MEDICAL ASSISTANT Devin Dougherty MD LABORATORY Performing Organization Address City/[facility]/ZIP Co de Phone Number [facility] [address] [place] [address] * (ABNORMAL) VALPROATE (DEPAKOTE) LEVEL (11/09/2023 5:41 AM HOSPITAL MEDICAL ASSISTANT) Valproate 31.8(L) 50.0 - 100.0 mcg/mL [facility] Blood 11/09/2023 5:41 AM HOSPITAL MEDICAL ASSISTANT 11/09/2023 8:19 AM HOSPITAL MEDICAL ASSISTANT Quinn Covarrubias MD LABORATORY [facility] [place] [address] * PHOSPHORUS (11/09/2023 5:41 AM HOSPITAL MEDICAL ASSISTANT) Phosphorus 3.9 2.5 - 4.5 mg/dL [facility] Blood 11/09/2023 5:41 AM HOSPITAL MEDICAL ASSISTANT 11/09/2023 6:38 AM HOSPITAL MEDICAL ASSISTANT Quinn Covarrubias MD LABORATORY Performing Organization Address [facility] Co de Phone Number [facility] [address] [address] * (ABNORMAL) PANEL BASIC METABOLIC (BMP) (11/09/2023 5:41 AM HOSPITAL MEDICAL ASSISTANT) Sodium 142 135 - 148 mEq/L [facility] Potassium 3.1(L) 3.5 - 5.3 mEq/L [facility] Chloride 105 92 - 108 mEq/L [facility] CO2 30 22 - 30 mEq/L [facility] Glucose 91 70 - 100 mg/dL [facility] BUN 23 8 - 23 mg/dL [facility] Creatinine 1.09(H) 0.50 - 1.00 mg/dL [facility] Calcium 8.8 8.8 - 10.2 mg/dL [facility] AnGap 7(L) 8 - 16 mEq/L [facility] eGFR (2020 CKD-EPI) 51(L) >=60 ml/min/1.7 3m2 [facility] Comment: The estimated glomerular filtration rate (eGFR) was calculated using the CKD-EPI 2020 creatinine equation, which does not include race as a factor. This equation is validated in individuals 18 years of age and older, and eGFR is normalized to a body surface area of 1.73m^2. Blood 11/09/2023 5:41 AM HOSPITAL MEDICAL ASSISTANT 11/09/2023 6:38 AM HOSPITAL MEDICAL ASSISTANT Quinn Covarrubias MD LABORATORY Performing Organization Address [facility] Co de Phone Number [facility] [address] [address] * MAGNESIUM (11/09/2023 5:41 AM HOSPITAL MEDICAL ASSISTANT) Magnesium 2.1 1.6 - 2.4 mg/dL [facility] Blood 11/09/2023 5:41 AM HOSPITAL MEDICAL ASSISTANT 11/09/2023 6:38 AM HOSPITAL MEDICAL ASSISTANT Quinn Covarrubias MD LABORATORY Performing Organization Address [facility] Co de Phone Number [facility] [address] [address] * (ABNORMAL) CBC WITH PLATELET (11/09/2023 5:41 AM HOSPITAL MEDICAL ASSISTANT) Pathologist [facility] WBC 6.97 4.00 - 10.00 k/cmm [facility] RBC 3.42(L) 3.90 - 5.20 m/cmm [facility] Hgb 8.8(L) 11.5 - 15.7 g/dL [facility] Hematocrit 28.4(L) 34.0 - 45.0 % [facility] MCV 83.0 80.0 - 100.0 fL [facility] MCH 25.7 25.0 - 32.0 pg [facility] MCHC 31.0 31.0 - 36.0 g/dL [facility] RDW 16.0(H) 11.5 - 14.5 % [facility] Plt 227 150 - 400 k/cmm [facility] MPV 12.0 6.5 - 12.5 fL [facility] Blood 11/09/2023 5:41 AM HOSPITAL MEDICAL ASSISTANT 11/09/2023 6:38 AM HOSPITAL MEDICAL ASSISTANT Quinn Covarrubias MD LABORATORY [facility] [place] [address] * (ABNORMAL) POC GLUCOSE (11/08/2023 8:40 PM HOSPITAL MEDICAL ASSISTANT) [facility] POC Glucose 125(H) 70 - 100 mg/dL [facility] Blood 11/08/2023 8:40 PM HOSPITAL MEDICAL ASSISTANT Devin Doughrety MD LABORATORY [facility] [address] [place] [address], * PHOSPHORUS (11/08/2023 4:20 PM HOSPITAL MEDICAL ASSISTANT) Pathologist [facility] Phosphorus 3.5 2.5 - 4.5 mg/dL [facility] Blood 11/08/2023 4:20 PM HOSPITAL MEDICAL ASSISTANT 11/08/2023 4:38 PM HOSPITAL MEDICAL ASSISTANT Jesusita K EMILY Aiken APRNNATE RY Performing Organization Address [facility] Co de Phone Number [facility] [address] [place] [address] * MAGNESIUM (11/08/2023 4:20 PM HOSPITAL MEDICAL ASSISTANT) Magnesium 2.0 1.6 - 2.4 mg/dL [facility] Blood 11/08/2023 4:20 PM HOSPITAL MEDICAL ASSISTANT 11/08/2023 4:38 PM HOSPITAL MEDICAL ASSISTANT Jesusita Wild Nelli CHO EMILY MOERNOATO RY Performing Organization Address [facility] de Phone Number [facility] [address] [address] * (ABNORMAL) PANEL BASIC METABOLIC (BMP) (11/08/2023 4:20 PM HOSPITAL MEDICAL ASSISTANT) Sodium 142 135 - 148 mEq/L [facility] Potassium 3.4(L) 3.5 - 5.3 mEq/L [facility] Chloride 105 92 - 108 mEq/L [facility] CO2 28 22 - 30 mEq/L [facility] AnGap 9 8 - 16 mEq/L [facility] Glucose 149(H) 70 - 100 mg/dL [facility] BUN 17 8 - 23 mg/dL [facility] Creatinine 0.82 0.50 - 1.00 mg/dL [facility] Calcium 8.9 8.8 - 10.2 mg/dL [facility] eGFR (2020 CKD-EPI) 72 >=60 ml/min/1.7 3m2 [facility] Comment: The estimated glomerular filtration rate (eGFR) was calculated using the CKD-EPI 2020 creatinine equation, which does not include race as a factor. This equation is validated in individuals 18 years of age and older, and eGFR is normalized to a body surface area of 1.73m^2. Blood 11/08/2023 4:20 PM HOSPITAL MEDICAL ASSISTANT 11/08/2023 4:38 PM HOSPITAL MEDICAL ASSISTANT Jesusita K Nelli CHO CNP JOSHATO RY Performing Organization Address City/[facility]/ZIP Co de Phone Number [facility] [address] [address] * (ABNORMAL) CBC WITH PLATELET (11/08/2023 4:20 PM HOSPITAL MEDICAL ASSISTANT) [facility] WBC 8.46 4.00 - 10.00 k/cmm [facility] RBC 3.65(L) 3.90 - 5.20 m/cmm [facility] Hgb 9.1(L) 11.5 - 15.7 g/dL [facility] Hematocrit 30.2(L) 34.0 - 45.0 % [facility] MCV 82.7 80.0 - 100.0 fL [facility] MCH 24.9(L) 25.0 - 32.0 pg [facility] MCHC 30.1(L) 31.0 - 36.0 g/dL [facility] RDW 16.0(H) 11.5 - 14.5 % [facility] Plt 227 150 - 400 k/cmm [facility] MPV 11.7 6.5 - 12.5 fL [facility] Blood 11/08/2023 4:20 PM HOSPITAL MEDICAL ASSISTANT 11/08/2023 4:38 PM HOSPITAL MEDICAL ASSISTANT EMILY Martinez APRNBANNER [facility] RY Performing Organization Address City/[facility]/ZIP Co de Phone Number [address] [address] * (ABNORMAL) POC GLUCOSE (11/08/2023 3:56 PM HOSPITAL MEDICAL ASSISTANT) [facility] POC Glucose 150(H) 70 - 100 mg/dL [facility] Blood 11/08/2023 3:56 PM HOSPITAL MEDICAL ASSISTANT Devin Dougherty MD LABORATORY Performing Organization Address City/[facility]/ZIP Co de Phone Number [facility] POINT OF CARE [address] [place] [address] * (ABNORMAL) POC GLUCOSE (11/08/2023 11:03 AM HOSPITAL MEDICAL ASSISTANT) [facility] POC Glucose 162(H) 70 - 100 mg/dL [facility] Blood 11/08/2023 11:0 3 AM HOSPITAL MEDICAL ASSISTANT Devin Dougherty MD LABORATORY [facility] [address] [place] [address], [place] * XR CHEST 1 VIEW AP OR PA* (11/08/2023 6:30 AM HOSPITAL MEDICAL ASSISTANT) Anatomical Region Laterality Modality Chest Computed Radiogr aphy 11/08/2023 6:56 AM HOSPITAL MEDICAL ASSISTANT Impressions 11/08/2023 7:24 AM HOSPITAL MEDICAL ASSISTANT Impression: Stable chest. I have personally reviewed the image(s) and initial interpretation, and I agree with the findings as documented by the resident/fellow. Reading Radiologist: Ronal Hidalgo Reading Resident: Laith Berkowitz Narrative 11/08/2023 7:24 AM HOSPITAL MEDICAL ASSISTANT Technique: XR CHEST 1 VIEW AP OR [...] * (ABNORMAL) POC GLUCOSE (11/08/2023 6:22 AM HOSPITAL MEDICAL ASSISTANT) POC Glucose 126(H) 70 - 100 mg/dL [facility] Blood 11/08/2023 6:22 AM HOSPITAL MEDICAL ASSISTANT Devin Dougherty MD LABORATORY [facility]INT OF CARE [address] [place] [address], [place] * (ABNORMAL) POC GLUCOSE (11/07/2023 9:34 PM HOSPITAL MEDICAL ASSISTANT) POC Glucose 109(H) 70 - 100 mg/dL [facility] Blood 11/07/2023 9:34 PM HOSPITAL MEDICAL ASSISTANT Devin Dougherty MD LABORATORY Performing Organization Address City/[facility]/ZIP Co de Phone Number [facility]ARE [address] [place] [address], [place] * (ABNORMAL) POC GLUCOSE (11/07/2023 4:06 PM HOSPITAL MEDICAL ASSISTANT) POC Glucose 160(H) 70 - 100 mg/dL [facility] POINT OF [facility] Blood 11/07/2023 4:06 PM HOSPITAL MEDICAL ASSISTANT Devin Dougherty MD LABORATORY Performing Organization Address [facility] Co de Phone Number [facility] [address] [place] [address], [place] * (ABNORMAL) POC GLUCOSE (11/07/2023 11:45 AM HOSPITAL MEDICAL ASSISTANT) POC Glucose 107(H) 70 - 100 mg/dL [facility] PO[facility] OF [facility] Blood 11/07/2023 11:4 5 AM HOSPITAL MEDICAL ASSISTANT Devin Dougherty MD LABORATORY Performing Organization Address City/[facility] Co de Phone Number [facility] POINT OF CARE [address] [place] [address], [place] * XR CHEST 2 VIEWS PA + LAT* (11/07/2023 10:07 AM HOSPITAL MEDICAL ASSISTANT) Anatomical Region Laterality Modality Chest Computed Radiogr aphy 11/07/2023 10:0 9 AM HOSPITAL MEDICAL ASSISTANT Impressions 11/07/2023 10:10 AM HOSPITAL MEDICAL ASSISTANT Impression: New left basilar opacities with small effusion concerning for developing infection. Reading Radiologist: Phil Contreras Narrative 11/07/2023 10:10 AM HOSPITAL MEDICAL ASSISTANT Technique: XR CHEST 2 VIEWS PA + [...] RAD XRAY * PROCALCITONIN (11/07/2023 8:34 AM HOSPITAL MEDICAL ASSISTANT) Procalcitonin 0.12 ng/mL [facility] Comment: Results <0.50 ng/mL represent a low risk of severe sepsis and/or septic shock. Results >2.0 ng/mL represent a high risk of severe sepsis and/or septic shock. Blood 11/07/2023 8:34 AM HOSPITAL MEDICAL ASSISTANT 11/07/2023 8:40 AM HOSPITAL MEDICAL ASSISTANT Quinn Covarrubias MD LABORATORY [facility] [address] [address] * (ABNORMAL) CBC WITH PLATELET (11/07/2023 8:34 AM HOSPITAL MEDICAL ASSISTANT) WBC 7.45 4.00 - 10.00 k/cmm [facility] RBC 3.49(L) 3.90 - 5.20 m/cmm [facility] Hgb 8.8(L) 11.5 - 15.7 g/dL [facility] Hematocrit 29.0(L) 34.0 - 45.0 % [facility] MCV 83.1 80.0 - 100.0 fL [facility] MCH 25.2 25.0 - 32.0 pg [facility] MCHC 30.3(L) 31.0 - 36.0 g/dL [facility] RDW 15.9(H) 11.5 - 14.5 % [facility] Plt 249 150 - 400 k/cmm [facility] MPV 11.0 6.5 - 12.5 fL [facility] Blood 11/07/2023 8:34 AM HOSPITAL MEDICAL ASSISTANT 11/07/2023 8:40 AM HOSPITAL MEDICAL ASSISTANT Quinn Covarrubias MD LABORATORY Performing Organization Address [facility] Co de Phone Number [facility] [address] [address] * (ABNORMAL) PANEL BASIC METABOLIC (BMP) (11/07/2023 8:34 AM HOSPITAL MEDICAL ASSISTANT) Sodium 145 135 - 148 mEq/L [facility] Potassium 3.5 3.5 - 5.3 mEq/L [facility] Chloride 111(H) 92 - 108 mEq/L [facility] CO2 26 22 - 30 mEq/L [facility] AnGap 8 8 - 16 mEq/L [facility] Glucose 108(H) 70 - 100 mg/dL [facility] BUN 15 8 - 23 mg/dL [facility] Creatinine 0.90 0.50 - 1.00 mg/dL [facility] Calcium 8.8 8.8 - 10.2 mg/dL [facility] eGFR (2020 CKD-EPI) 64 >=60 ml/min/1.7 3m2 [facility] Comment: The estimated glomerular filtration rate (eGFR) was calculated using the CKD-EPI 2020 creatinine equation, which does not include race as a factor. This equation is validated in individuals 18 years of age and older, and eGFR is normalized to a body surface area of 1.73m^2. Blood 11/07/2023 8:34 AM HOSPITAL MEDICAL ASSISTANT 11/07/2023 8:40 AM HOSPITAL MEDICAL ASSISTANT Quinn Covarrubias MD LABORATORY Performing Organization Address City/[facility]/ZIP Co de Phone Number [facility] [address] [address] * MAGNESIUM (11/07/2023 8:34 AM HOSPITAL MEDICAL ASSISTANT) Magnesium 2.3 1.6 - 2.4 mg/dL [facility] Blood 11/07/2023 8:34 AM HOSPITAL MEDICAL ASSISTANT 11/07/2023 8:40 AM HOSPITAL MEDICAL ASSISTANT Quinn Covarrubias MD LABORATORY Performing Organization Address City/[facility] Co [place] [address] * (ABNORMAL) PHOSPHORUS (11/07/2023 8:34 AM HOSPITAL MEDICAL ASSISTANT) Phosphorus 5.0(H) 2.5 - 4.5 mg/dL [facility] Blood 11/07/2023 8:34 AM HOSPITAL MEDICAL ASSISTANT 11/07/2023 8:40 AM HOSPITAL MEDICAL ASSISTANT Quinn Covarrubias MD LABORATORY Performing Organization Address [facility] de [place] [address] * (ABNORMAL) POC GLUCOSE (11/07/2023 5:45 AM HOSPITAL MEDICAL ASSISTANT) POC Glucose 115(H) 70 - 100 mg/dL [facility] Blood 11/07/2023 5:45 AM HOSPITAL MEDICAL ASSISTANT Devin Dougherty MD LABORATORY Performing Organization Address City/[facility] Co de Phone Number [facility] [address] [place] [address] * (ABNORMAL) POC GLUCOSE (11/06/2023 9:21 PM HOSPITAL MEDICAL ASSISTANT) POC Glucose 149(H) 70 - 100 mg/dL [facility] Blood 11/06/2023 9:21 PM HOSPITAL MEDICAL ASSISTANT Devin Dougherty MD LABORATORY Performing Organization Address City/[facility] Co de Phone Number [facility] [place] [address], [place] * (ABNORMAL) BLOOD GASES (11/06/2023 1:06 PM HOSPITAL MEDICAL ASSISTANT) PH Jalen 7.36 7.32 - 7.42 [facility] PCO2 Jalen 48 41 - 51 mmHG [facility] PO2 Jalen 86(H) 25 - 40 mmHG [facility] Bicarb Jalen 26 24 - 28 mEq/L [facility] O2 Sat Jalen 96 % [facility] Base Exc Jalen 1.0 -10.0 - 2.0 mEq/L [facility] Blood Venous 11/06/2023 1:06 PM HOSPITAL MEDICAL ASSISTANT 11/06/2023 1:10 PM HOSPITAL MEDICAL ASSISTANT Narrative [facility] - 11/06/2023 1:16 PM HOSPITAL MEDICAL ASSISTANT Draw on Room Air: No O2 LPM (liter/min) Level->4 via mask FiO2 Level: 100 Quinn Covarrubias MD LABORATORY Performing Organization Address City/[facility]/ZIP Co de Phone Number [address] [address] * MAGNESIUM (11/06/2023 1:06 PM HOSPITAL MEDICAL ASSISTANT) Magnesium 2.4 1.6 - 2.4 mg/dL [facility] Blood 11/06/2023 1:06 PM HOSPITAL MEDICAL ASSISTANT 11/06/2023 1:22 PM HOSPITAL MEDICAL ASSISTANT Quinn Covarrubias MD LABORATORY Performing Organization Address City/[facility]/ZIP Co de Phone Number [address] [address] * PHOSPHORUS (11/06/2023 1:06 PM HOSPITAL MEDICAL ASSISTANT) Phosphorus 4.2 2.5 - 4.5 mg/dL [facility] Blood 11/06/2023 1:06 PM HOSPITAL MEDICAL ASSISTANT 11/06/2023 1:22 PM HOSPITAL MEDICAL ASSISTANT Quinn Covarrubias MD LABORATORY Performing Organization Address City/[facility]/ZIP Co de Phone Number [address] [address] * (ABNORMAL) PANEL BASIC METABOLIC (BMP) (11/06/2023 1:06 PM HOSPITAL MEDICAL ASSISTANT) Sodium 141 135 - 148 mEq/L [facility] Potassium 3.8 3.5 - 5.3 mEq/L [facility] Chloride 108 92 - 108 mEq/L [facility] CO2 27 22 - 30 mEq/L [facility] AnGap 6(L) 8 - 16 mEq/L [facility] Glucose 184(H) 70 - 100 mg/dL [facility] BUN 15 8 - 23 mg/dL [facility] Creatinine 0.91 0.50 - 1.00 mg/dL [facility] Calcium 8.7(L) 8.8 - 10.2 mg/dL [facility] eGFR (2020 CKD-EPI) 63 >=60 ml/min/1.7 3m2 [facility] Comment: The estimated glomerular filtration rate (eGFR) was calculated using the CKD-EPI 2020 creatinine equation, which does not include race as a factor. This equation is validated in individuals 18 years of age and older, and eGFR is normalized to a body surface area of 1.73m^2. Blood 11/06/2023 1:06 PM HOSPITAL MEDICAL ASSISTANT 11/06/2023 1:22 PM HOSPITAL MEDICAL ASSISTANT Quinn Covarrubias MD LABORATORY [facility] [address] [address] * (ABNORMAL) CBC WITH PLATELET (11/06/2023 1:06 PM HOSPITAL MEDICAL ASSISTANT) WBC 10.82(H) 4.00 - 10.00 k/cmm [facility] RBC 3.58(L) 3.90 - 5.20 m/cmm [facility] Hgb 9.1(L) 11.5 - 15.7 g/dL [facility] Hematocrit 29.6(L) 34.0 - 45.0 % [facility] MCV 82.7 80.0 - 100.0 fL [facility] MCH 25.4 25.0 - 32.0 pg [facility] MCHC 30.7(L) 31.0 - 36.0 g/dL [facility] RDW 15.8(H) 11.5 - 14.5 % [facility] Plt 253 150 - 400 k/cmm [facility] MPV 11.3 6.5 - 12.5 fL [facility] Blood 11/06/2023 1:06 PM HOSPITAL MEDICAL ASSISTANT 11/06/2023 1:21 PM HOSPITAL MEDICAL ASSISTANT Quinn Covarrubias MD LABORATORY Performing Organization Address [facility] Co de Phone Number [facility] [place] [address] * (ABNORMAL) POC GLUCOSE (11/06/2023 1:04 PM HOSPITAL MEDICAL ASSISTANT) POC Glucose 173(H) 70 - 100 mg/dL [facility] Blood 11/06/2023 1:04 PM HOSPITAL MEDICAL ASSISTANT Devin Dougherty MD LABORATORY Performing Organization Address [facility] Co de Phone Number [facility] [place] [address], * (ABNORMAL) POC GLUCOSE (11/06/2023 10:49 AM HOSPITAL MEDICAL ASSISTANT) POC Glucose 257(H) 70 - 100 mg/dL [facility] Blood 11/06/2023 10:4 9 AM HOSPITAL MEDICAL ASSISTANT Devin Dougherty MD LABORATORY Performing Organization Address [facility] de Phone Number [facility] [address] * (ABNORMAL) GLYCOSYLATED HGB - A1C (11/06/2023 6:31 AM HOSPITAL MEDICAL ASSISTANT) Hemoglobin A1C 8.1(H) 4.0 - 5.6 % [facility] Comment: Increased risk for diabetes (prediabetes): 5.7-6.4% Diabetes: greater than or equal to 6.5% * * In the absence of unequivocal hyperglycemia, diagnosis requires two abnormal test results (i.e. HbA1c and glucose) or two abnormal results from specimens collected at two different timepoints. Estimated Average Glucose 186(H) 68 - 114 [facility] Comment: The ADA recommends reporting an estimated Average Glucose (eAG) with all hemoglobin A1c results using the equation derived from a study of 501 normal diabetic adults. Minority populations were underrepresented and children were not included. The EAG is not equivalent to a fasting glucose. Blood 11/06/2023 6:31 AM HOSPITAL MEDICAL ASSISTANT 11/06/2023 11:28 AM HOSPITAL MEDICAL ASSISTANT Quinn Covarrubias MD LABORATORY Performing Organization Address [facility] Co de Phone Number [facility] [address] [address] * ICU PHOSPHORUS (11/06/2023 6:31 AM HOSPITAL MEDICAL ASSISTANT) Phosphorus 4.1 2.5 - 4.5 mg/dL [facility] Blood 11/06/2023 6:31 AM HOSPITAL MEDICAL ASSISTANT 11/06/2023 7:37 AM HOSPITAL MEDICAL ASSISTANT Devin Dougherty MD LABORATORY Performing Organization Address [facility] de Phone Number [facility] [address] [address] * (ABNORMAL) ICU MAGNESIUM (11/06/2023 6:31 AM HOSPITAL MEDICAL ASSISTANT) Magnesium 2.5(H) 1.6 - 2.4 mg/dL [facility] Blood 11/06/2023 6:31 AM HOSPITAL MEDICAL ASSISTANT 11/06/2023 7:37 AM HOSPITAL MEDICAL ASSISTANT Devin Dougherty MD LABORATORY Performing Organization Address [facility] de Phone Number [facility] [address] [address] * (ABNORMAL) ICU CBC WITH PLATELET (11/06/2023 6:31 AM HOSPITAL MEDICAL ASSISTANT) WBC 9.06 4.00 - 10.00 k/cmm [facility] RBC 3.77(L) 3.90 - 5.20 m/cmm [facility] Hgb 9.6(L) 11.5 - 15.7 g/dL [facility] Hematocrit 30.8(L) 34.0 - 45.0 % [facility] MCV 81.7 80.0 - 100.0 fL [facility] MCH 25.5 25.0 - 32.0 pg [facility] MCHC 31.2 31.0 - 36.0 g/dL [facility] RDW 15.9(H) 11.5 - 14.5 % [facility] Plt 284 150 - 400 k/cmm [facility] MPV 12.1 6.5 - 12.5 fL [facility] Blood 11/06/2023 6:31 AM HOSPITAL MEDICAL ASSISTANT 11/06/2023 7:37 AM HOSPITAL MEDICAL ASSISTANT Devin Dougherty MD LABORATORY Performing Organization Address City/State/[facility] Co de Phone Number [facility] [address] [address] * (ABNORMAL) ICU PANEL BASIC METABOLIC (BMP) (11/06/2023 6:31 AM HOSPITAL MEDICAL ASSISTANT) Sodium 142 135 - 148 mEq/L [facility] Potassium 3.7 3.5 - 5.3 mEq/L [facility] Chloride 107 92 - 108 mEq/L [facility] CO2 26 22 - 30 mEq/L [facility] AnGap 9 8 - 16 mEq/L [facility] Glucose 148(H) 70 - 100 mg/dL [facility] BUN 12 8 - 23 mg/dL [facility] Creatinine 0.77 0.50 - 1.00 mg/dL [facility] Calcium 8.7(L) 8.8 - 10.2 mg/dL [facility] eGFR (2020 CKD-EPI) 77 >=60 ml/min/1.7 3m2 [facility] Comment: The estimated glomerular filtration rate (eGFR) was calculated using the CKD-EPI 2020 creatinine equation, which does not include race as a factor. This equation is validated in individuals 18 years of age and older, and eGFR is normalized to a body surface area of 1.73m^2. Blood 11/06/2023 6:31 AM HOSPITAL MEDICAL ASSISTANT 11/06/2023 7:37 AM HOSPITAL MEDICAL ASSISTANT Devin Dougherty MD LABORATORY Performing Organization Address City/State/[facility] Co de Phone Number [facility] [address] [address] * PROTHROMBIN (PT) & INR (11/06/2023 6:31 AM HOSPITAL MEDICAL ASSISTANT) Pathologist [facility] PT 11.4 9.0 - 12.5 sec [facility] INR 1.0 0.8 - 1.1 [facility] Comment: Warfarin Therapeutic Range: Standard Intensity: 2.0 - 3.0 High Intensity: 2.5 - 3.5 Blood 11/06/2023 6:31 AM HOSPITAL MEDICAL ASSISTANT 11/06/2023 7:37 AM HOSPITAL MEDICAL ASSISTANT Quinn Covarrubias MD LABORATORY Performing Organization Address [facility] Co de Phone Number [address] [address] * (ABNORMAL) POC GLUCOSE (11/06/2023 5:39 AM HOSPITAL MEDICAL ASSISTANT) Pathologist [facility] POC Glucose 149(H) 70 - 100 mg/dL [facility] Blood 11/06/2023 5:39 AM HOSPITAL MEDICAL ASSISTANT Devin Dougherty MD LABORATORY Performing Organization Address [facility] Co de Phone Number [facility] OF [address] [address], * (ABNORMAL) POC GLUCOSE (11/05/2023 4:54 PM HOSPITAL MEDICAL ASSISTANT) Pathologist [facility] POC Glucose 170(H) 70 - 100 mg/dL [facility] Blood 11/05/2023 4:54 PM HOSPITAL MEDICAL ASSISTANT Devin Dougherty MD LABORATORY Performing Organization Address City/[facility] Co de Phone Number [facility] OF [address] [address], * (ABNORMAL) MAGNESIUM (11/05/2023 4:48 PM HOSPITAL MEDICAL ASSISTANT) Magnesium 2.8(H) 1.6 - 2.4 mg/dL [facility] Blood 11/05/2023 4:48 PM HOSPITAL MEDICAL ASSISTANT 11/05/2023 4:58 PM HOSPITAL MEDICAL ASSISTANT Quinn Covarrubias MD LABORATORY [facility] [address] [address] * (ABNORMAL) POTASSIUM (11/05/2023 4:48 PM HOSPITAL MEDICAL ASSISTANT) Potassium 3.2(L) 3.5 - 5.3 mEq/L [facility] Blood 11/05/2023 4:48 PM HOSPITAL MEDICAL ASSISTANT 11/05/2023 4:58 PM HOSPITAL MEDICAL ASSISTANT Quinn Covarrubias MD LABORATORY Performing Organization Address [facility] Co de Phone Number [facility] [address] [address] * CT HEAD NO IV CONTRAST (11/05/2023 11:44 AM HOSPITAL MEDICAL ASSISTANT) Anatomical Region Laterality Modality Skull Computed Tomogra phy 11/05/2023 12:1 6 PM HOSPITAL MEDICAL ASSISTANT Impressions 11/05/2023 12:38 PM HOSPITAL MEDICAL ASSISTANT Impression: Stable head CT as compared to the study performed 7 hours earlier. Intra-axial and extra-axial hemorrhage(s) without midline shift or hydrocephalus. The basal cisterns are patent. Reading Radiologist: Ford Fernández 11/05/2023 12:38 PM HOSPITAL MEDICAL ASSISTANT Exam: Head CT without contrast, 11/05/2023 Indication: [...] * (ABNORMAL) POC GLUCOSE (11/05/2023 11:11 AM HOSPITAL MEDICAL ASSISTANT) POC Glucose 201(H) 70 - 100 mg/dL [facility] Blood 11/05/2023 11:1 1 AM HOSPITAL MEDICAL ASSISTANT Devin Dougherty MD LABORATORY Performing Organization Address City/[facility]/ZIP Co de Phone Number [facility]ARE [address] [place] [address], * EKG ADULT (12-LEAD) (11/05/2023 6:38 AM HOSPITAL MEDICAL ASSISTANT) 11/05/2023 6:38 AM HOSPITAL MEDICAL ASSISTANT Impressions [facility] E[facility] ORD[facility] - 11/05/2023 6:38 AM HOSPITAL MEDICAL ASSISTANT SINUS RHYTHM RIGHT BUNDLE BRANCH BLOCK ??[120+ ms QRS DURATION, UPRIGHT V1, 40+ ms S IN I/aVL/V4/V5/V6] ABNORMAL ECG P-R Interval 151 ms QRS Interval 128 ms QT Interval 420 ms QTC Interval 462 ms P [place] 9 QRS [place] 27 T Wave [place] 70 Narrative Procedure Note Lauren Mills MD - 11/06/2023 IMPRESSION SINUS RHYTHM RIGHT BUNDLE BRANCH BLOCK [120+ ms QRS DURATION, UPRIGHT V1, 40+ ms S INI/aVL/V4/V5/V6] ABNORMAL ECG P-R Interval 151 ms QRS Interval 128 ms QT Interval 420 ms QTC Interval 462 ms P [place] 9 QRS [place] 27 T Wave [place] 70 Quinn Covarrubias MD EKG Performing Organization Address City/[facility]/ZIP Co de Phone Number [facility] EKG ORDERS * (ABNORMAL) POC GLUCOSE (11/05/2023 6:07 AM HOSPITAL MEDICAL ASSISTANT) POC Glucose 188(H) 70 - 100 mg/dL [facility] Blood 11/05/2023 6:07 AM HOSPITAL MEDICAL ASSISTANT Devin Dougherty MD LABORATORY [facility] [place] [place] [address], [place] * CT HEAD NO IV CONTRAST (11/05/2023 4:54 AM HOSPITAL MEDICAL ASSISTANT) Anatomical Region Laterality Modality Skull Computed Tomogra phy 11/05/2023 4:56 AM HOSPITAL MEDICAL ASSISTANT Impressions 11/05/2023 11:09 AM HOSPITAL MEDICAL ASSISTANT Impression: 1. Stable to perhaps minimally increased [...] Reading Resident: Laith Berkowitz 11/05/2023 11:09 AM HOSPITAL MEDICAL ASSISTANT Exam: Head CT without contrast, 11/05/2023 Indication: [...] PROTHROMBIN (PT) & INR (11/05/2023 4:27 AM HOSPITAL MEDICAL ASSISTANT) PT 12.3 9.0 - 12.5 sec [facility] INR 1.1 0.8 - 1.1 [facility] Comment: This sample may have abnormal results due to the presence of lipemia. Warfarin Therapeutic Range: Standard Intensity: 2.0 - 3.0 High Intensity: 2.5 - 3.5 Blood 11/05/2023 4:27 AM HOSPITAL MEDICAL ASSISTANT 11/05/2023 4:35 AM HOSPITAL MEDICAL ASSISTANT Quinn Covarrubias MD LABORATORY Performing Organization Address City/[facility]/ZIP Co de Phone Number [facility] [place] [phone] * ICU PHOSPHORUS (11/05/2023 4:27 AM HOSPITAL MEDICAL ASSISTANT) Phosphorus 3.5 2.5 - 4.5 mg/dL [facility] Blood 11/05/2023 4:27 AM HOSPITAL MEDICAL ASSISTANT 11/05/2023 4:36 AM HOSPITAL MEDICAL ASSISTANT Devin Dougherty MD LABORATORY Performing Organization Address City/[facility]/ZIP Co de Phone Number [facility] [address] [address] * (ABNORMAL) ICU MAGNESIUM (11/05/2023 4:27 AM HOSPITAL MEDICAL ASSISTANT) Magnesium 1.5(L) 1.6 - 2.4 mg/dL [facility] Blood 11/05/2023 4:27 AM HOSPITAL MEDICAL ASSISTANT 11/05/2023 4:36 AM HOSPITAL MEDICAL ASSISTANT Devin Dougherty MD LABORATORY [facility] [address] [address] * (ABNORMAL) ICU BLOOD GAS (11/05/2023 4:27 AM HOSPITAL MEDICAL ASSISTANT) PH Art 7.38 7.35 - 7.45 [facility] PCO2 Art 42 35 - 45 mmHG [facility] PO2 Art 99(H) 75 - 85 mmHG [facility] Bicarb Art 25 22 - 26 mEq/L [facility] O2 Sat Art 98 96 - 99 % [facility] Base Exc Art 0.0 -10.0 - 2.0 mEq/L [facility] Blood Arterial 11/05/2023 4: 27 AM HOSPITAL MEDICAL ASSISTANT 11/05/2023 4:34 AM HOSPITAL MEDICAL ASSISTANT Devin Dougherty MD LABORATORY Performing Organization Address City/[facility] Co de Phone Number [facility] [address] [address] * (ABNORMAL) ICU CBC WITH PLATELET (11/05/2023 4:27 AM HOSPITAL MEDICAL ASSISTANT) WBC 13.69(H) 4.00 - 10.00 k/cmm [facility] RBC 3.49(L) 3.90 - 5.20 m/cmm [facility] Hgb 9.8(L) 11.5 - 15.7 g/dL [facility] Hematocrit 28.2(L) 34.0 - 45.0 % [facility] MCV 80.8 80.0 - 100.0 fL [facility] MCH 28.1 25.0 - 32.0 pg [facility] MCHC 34.8 31.0 - 36.0 g/dL [facility] RDW 15.4(H) 11.5 - 14.5 % [facility] Plt 330 150 - 400 k/cmm [facility] MPV 10.9 6.5 - 12.5 fL [facility] Blood 11/05/2023 4:27 AM HOSPITAL MEDICAL ASSISTANT 11/05/2023 4:35 AM HOSPITAL MEDICAL ASSISTANT Devin Dougherty MD LABORATORY [facility] [address] [address] * (ABNORMAL) ICU PANEL BASIC METABOLIC (BMP) (11/05/2023 4:27 AM HOSPITAL MEDICAL ASSISTANT) Sodium 138 135 - 148 mEq/L [facility] Potassium 3.2(L) 3.5 - 5.3 mEq/L [facility] Chloride 102 92 - 108 mEq/L [facility] CO2 24 22 - 30 mEq/L [facility] AnGap 12 8 - 16 mEq/L [facility] Glucose 200(H) 70 - 100 mg/dL [facility] BUN 16 8 - 23 mg/dL [facility] Creatinine 0.80 0.50 - 1.00 mg/dL [facility] Calcium 8.7(L) 8.8 - 10.2 mg/dL [facility] eGFR (2020 CKD-EPI) 74 >=60 ml/min/1.7 3m2 [facility] Comment: The estimated glomerular filtration rate (eGFR) was calculated using the CKD-EPI 2020 creatinine equation, which does not include race as a factor. This equation is validated in individuals 18 years of age and older, and eGFR is normalized to a body surface area of 1.73m^2. Blood 11/05/2023 4:27 AM HOSPITAL MEDICAL ASSISTANT 11/05/2023 4:36 AM HOSPITAL MEDICAL ASSISTANT Devin Dougherty MD LABORATORY Performing Organization Address City/[facility]/ZIP Co de Phone Number [facility] [address] [address] * (ABNORMAL) TROP 6H (11/05/2023 4:27 AM HOSPITAL MEDICAL ASSISTANT) 6H Trop 51(H) <=14 ng/L [facility] 6H Delta Significan t(A) Not Significant [facility] Blood 11/05/2023 4:27 AM HOSPITAL MEDICAL ASSISTANT 11/05/2023 4:35 AM HOSPITAL MEDICAL ASSISTANT Devin Dougherty MD LABORATORY Performing Organization Address [facility]/ZIP Co de Phone Number [facility] [address] [address] * (ABNORMAL) TROP 4H (11/05/2023 2:58 AM HOSPITAL MEDICAL ASSISTANT) 4H Trop 39(H) <=14 ng/L [facility] 4H Delta Significan t(A) Not Significant [facility] Blood 11/05/2023 2:58 AM HOSPITAL MEDICAL ASSISTANT 11/05/2023 3:48 AM HOSPITAL MEDICAL ASSISTANT Devin Dougherty MD LABORATORY Performing Organization Address City/[facility] Co de Phone Number [facility] [place] [phone] * CK, TOTAL (11/05/2023 1:32 AM HOSPITAL MEDICAL ASSISTANT) CK 56 26 - 192 IU/L [facility] Blood 11/05/2023 1:32 AM HOSPITAL MEDICAL ASSISTANT 11/05/2023 1:32 AM HOSPITAL MEDICAL ASSISTANT Devin Dougherty MD LABORATORY Performing Organization Address City/[facility] Co de Phone Number [place] [phone] * FIBRINOGEN (11/05/2023 1:32 AM HOSPITAL MEDICAL ASSISTANT) Fibrinogen 262 200 - 400 mg/dL [facility] Blood 11/05/2023 1:32 AM HOSPITAL MEDICAL ASSISTANT 11/05/2023 1:32 AM HOSPITAL MEDICAL ASSISTANT Devin Dougherty MD LABORATORY Performing Organization Address City/[facility] Co de Phone Number [facility] [address] [address] * PTT (APTT) (11/05/2023 1:32 AM HOSPITAL MEDICAL ASSISTANT) APTT 26.0 25.0 - 37.0 sec [facility] Blood 11/05/2023 1:32 AM HOSPITAL MEDICAL ASSISTANT 11/05/2023 1:32 AM HOSPITAL MEDICAL ASSISTANT Devin Dougherty MD LABORATORY Performing Organization Address City/[facility] Co de Phone Number [facility] [address] [address] * (ABNORMAL) PANEL HEPATIC FUNCTION (11/05/2023 1:32 AM HOSPITAL MEDICAL ASSISTANT) Pathologist [facility] Alk Phos 111(H) 35 - 104 IU/L [facility] Total Protein 6.5 6.4 - 8.3 g/dL [facility] Bili Direct na <=0.3 mg/dL [facility] Comment:Direct Bilirubin = < 0.2. Accuracy of result suspect due to lipemia. Albumin 3.8 3.8 - 5.1 g/dL [facility] Bili Total <0.2 <=1.2 mg/dL [facility] ALT (SGPT) na <=33 [facility] Comment:ALT = 15. Accuracy o f result suspect due to lipemia. AST(SGOT) na 5 - 40 [facility] Comment:AST = 27. Accuracy o f result suspect due to lipemia. Blood 11/05/2023 1:32 AM HOSPITAL MEDICAL ASSISTANT 11/05/2023 1:32 AM HOSPITAL MEDICAL ASSISTANT Devin Dougherty MD LABORATORY [facility] [address] [address] * (ABNORMAL) CBC WITH PLATELET (11/05/2023 1:32 AM HOSPITAL MEDICAL ASSISTANT) Pathologist [facility] WBC 14.77(H) 4.00 - 10.00 k/cmm [facility] RBC 3.70(L) 3.90 - 5.20 m/cmm [facility] Hgb 9.9(L) 11.5 - 15.7 g/dL [facility] Hematocrit 30.0(L) 34.0 - 45.0 % [facility] MCV 81.1 80.0 - 100.0 fL [facility] MCH 26.8 25.0 - 32.0 pg [facility] MCHC 33.0 31.0 - 36.0 g/dL [facility] RDW 15.4(H) 11.5 - 14.5 % [facility] Plt 324 150 - 400 k/cmm [facility] MPV 11.0 6.5 - 12.5 fL [facility] Blood 11/05/2023 1:32 AM HOSPITAL MEDICAL ASSISTANT 11/05/2023 1:32 AM HOSPITAL MEDICAL ASSISTANT Devin Dougherty MD LABORATORY Performing Organization Address [facility] Co de Phone Number [facility] [address] [address] * (ABNORMAL) PANEL BASIC METABOLIC (BMP) (11/05/2023 1:32 AM HOSPITAL MEDICAL ASSISTANT) Potassium 3.1(L) 3.5 - 5.3 mEq/L [facility] Sodium 138 135 - 148 mEq/L [facility] CO2 25 22 - 30 mEq/L [facility] Glucose 242(H) 70 - 100 mg/dL [facility] BUN 16 8 - 23 mg/dL [facility] Creatinine 0.76 0.50 - 1.00 mg/dL [facility] Chloride 101 92 - 108 mEq/L [facility] eGFR (2020 CKD-EPI) 79 >=60 ml/min/1.7 3m2 [facility] Comment: The estimated glomerular filtration rate (eGFR) was calculated using the CKD-EPI 2020 creatinine equation, which does not include race as a factor. This equation is validated in individuals 18 years of age and older, and eGFR is normalized to a body surface area of 1.73m^2. AnGap 12 8 - 16 mEq/L [facility] Calcium 8.8 8.8 - 10.2 mg/dL [facility] Blood 11/05/2023 1:32 AM HOSPITAL MEDICAL ASSISTANT 11/05/2023 1:32 AM HOSPITAL MEDICAL ASSISTANT Devin Dougherty MD LABORATORY Performing Organization Address [facility] Co de Phone Number [facility] [address] [phone] * (ABNORMAL) MAGNESIUM (11/05/2023 1:32 AM HOSPITAL MEDICAL ASSISTANT) Magnesium 1.5(L) 1.6 - 2.4 mg/dL [facility] Blood 11/05/2023 1:32 AM HOSPITAL MEDICAL ASSISTANT 11/05/2023 1:32 AM HOSPITAL MEDICAL ASSISTANT Devin Dougherty MD LABORATORY Performing Organization Address [facility] [facility] Co de Phone Number [facility] [address] [address] * PHOSPHORUS (11/05/2023 1:32 AM HOSPITAL MEDICAL ASSISTANT) Phosphorus 3.4 2.5 - 4.5 mg/dL [facility] Blood 11/05/2023 1:32 AM HOSPITAL MEDICAL ASSISTANT 11/05/2023 1:32 AM HOSPITAL MEDICAL ASSISTANT Devin Dougherty MD LABORATORY Performing Organization Address [facility] Co de Phone Number [facility] [address] [address] * PROTHROMBIN (PT) & INR (11/05/2023 1:32 AM HOSPITAL MEDICAL ASSISTANT) PT 11.8 9.0 - 12.5 sec [facility] INR 1.0 0.8 - 1.1 [facility] Comment: Warfarin Therapeutic Range: Standard Intensity: 2.0 - 3.0 High Intensity: 2.5 - 3.5 Blood 11/05/2023 1:32 AM HOSPITAL MEDICAL ASSISTANT 11/05/2023 1:32 AM HOSPITAL MEDICAL ASSISTANT Devin Dougherty MD LABORATORY Performing Organization Address [facility] Co de Phone Number [facility] [address] [address] * CALCIUM,IONIZED (11/05/2023 1:18 AM HOSPITAL MEDICAL ASSISTANT) PH 7.37 7.32 - 7.42 [facility] ICA, Actual 4.82 4.40 - 5.20 mg/dL [facility] ICA, pH Corrected 4.75 4.40 - 5.20 mg/dL [facility] Blood 11/05/2023 1:18 AM HOSPITAL MEDICAL ASSISTANT 11/05/2023 1:27 AM HOSPITAL MEDICAL ASSISTANT Narrative [facility] - 11/05/2023 1:44 AM HOSPITAL MEDICAL ASSISTANT Send specimen on ice! Devin Dougherty MD LABORATORY Performing Organization Address [facility] Co de Phone Number [facility] [address] [address] * LACTATE (LACTIC ACID) (11/05/2023 1:18 AM HOSPITAL MEDICAL ASSISTANT) Lactate 1.9 0.7 - 2.1 mmol/L [facility] Blood 11/05/2023 1:18 AM HOSPITAL MEDICAL ASSISTANT 11/05/2023 1:27 AM HOSPITAL MEDICAL ASSISTANT Narrative [facility] - 11/05/2023 1:45 AM HOSPITAL MEDICAL ASSISTANT Send specimen on ice! Devin Dougherty MD LABORATORY Performing Organization Address [facility] Co de Phone Number [facility] [address] [address] * BLOOD GASES (11/05/2023 1:18 AM HOSPITAL MEDICAL ASSISTANT) PH Art 7.37 7.35 - 7.45 [facility] PCO2 Art 43 35 - 45 mmHG [facility] PO2 Art 83 75 - 85 mmHG [facility] Bicarb Art 25 22 - 26 mEq/L [facility] O2 Sat Art 96 96 - 99 % [facility] Base Exc Art -0.3 -10.0 - 2.0 mEq/L [facility] Blood Arterial 11/05/2023 1: 18 AM HOSPITAL MEDICAL ASSISTANT 11/05/2023 1:27 AM HOSPITAL MEDICAL ASSISTANT Devin Dougherty MD LABORATORY Performing Organization Address [facility] Co de Phone Number [facility] [address] [address] * (ABNORMAL) TROP 2H (11/05/2023 1:18 AM HOSPITAL MEDICAL ASSISTANT) 2H Trop 18(H) <=14 ng/L [facility] 2H Delta Indeterminate Not Significant [facility] Blood 11/05/2023 1:18 AM HOSPITAL MEDICAL ASSISTANT 11/05/2023 1:45 AM HOSPITAL MEDICAL ASSISTANT Devin Dougherty MD LABORATORY Performing Organization Address [facility]/ZIP Co de Phone Number [facility] [address] [address] * CT HEAD-NECK - ANGIO - W/IV CON (11/05/2023 12:09 AM HOSPITAL MEDICAL ASSISTANT) Anatomical Region Laterality Modality Skull Computed Tomogra phy 11/05/2023 12:2 1 AM HOSPITAL MEDICAL ASSISTANT Impressions 11/05/2023 10:22 AM HOSPITAL MEDICAL ASSISTANT Impression: ?? Slightly increased size of the [...] Fernández Resident: Laith Berkowitz 11/05/2023 10:[address]PITAL MEDICAL ASSISTANT CT angiogram of the Head with contrast, [...] and reviewed by the Radiologist using the [employer] workstation, and these images were archived in [...] and reviewed by the Radiologist using the [employer] workstation,and these images were archived in the [...] NEURO * (ABNORMAL) URINALYSIS,TOTAL (11/04/2023 11:55 PM HOSPITAL MEDICAL ASSISTANT) Color COLORLESS YELLOW [facility] Appearance CLEAR CLEAR [facility] Urine Glucose 100(A) NEGATIVE mg/dL [facility] Bili UA NEGATIVE NEGATIVE [facility] Ketones NEGATIVE NEGATIVE [facility] Specific [place] 1.036(A) 1.003 - 1.030 [facility] Blood Ur NEGATIVE Neg-Trace [facility] PH Urine 7.5(H) 5.0 - 7.0 [facility] Protein Ur TRACE Neg-Trace [facility] Urobilinogen NORMAL NORMAL EU/dL [facility] Nitrite Ur NEGATIVE NEGATIVE [facility] Leuk Est NEGATIVE Neg-Trace [facility] WBC Ur 0-5 0 - 5 perHPF [facility] RBC Ur 0-3 0 - 3 perHPF [facility] SQ EPITH 0-5 0 - 5 perHPF [facility] Urinalysis Performed at: [facility] Urine 11/04/2023 11:5 5 PM HOSPITAL MEDICAL ASSISTANT 11/05/2023 12:03 AM HOSPITAL MEDICAL ASSISTANT Devin Dougherty MD LABORATORY [facility] [address] [address] * PF INSERT CATH,ART,PERCUT,SHORTTERM (11/04/2023 11:43 PM HOSPITAL MEDICAL ASSISTANT) Narrative Rito Graf MD - 11/04/2023 11:43 PM HOSPITAL MEDICAL ASSISTANT Priscilla Holcobm MD ? 11/04/2023 11:44 PM Arterial Line Performed by: Priscilla Holcomb MD Authorized by: Rito Graf MD ?? Consent: ??Consent obtained: ??Verbal ??Consent given by: ??Patient ??Risks discussed: ??Pain, bleeding and infection Stanley protocol: ??Patient identity confirmed: ??Verbally with patient, [...] * ED EKG (12-LEAD) (11/04/2023 11:25 PM HOSPITAL MEDICAL ASSISTANT) 11/04/2023 11:2 5 PM HOSPITAL MEDICAL ASSISTANT Impressions [facility] EKG ORDERS - 11/04/2023 11:25 PM HOSPITAL MEDICAL ASSISTANT SINUS TACHYCARDIA RIGHT BUNDLE BRANCH BLOCK ??[120+ ms QRS DURATION, UPRIGHT V1, 40+ ms S IN I/aVL/V4/V5/V6] ABNORMAL ECG P-R Interval 173 ms QRS Interval 127 ms QT Interval 395 ms QTC Interval 458 ms P [place] 57 QRS [place] 34 T Wave [place] 43 Narrative Procedure Note Vineet Díaz MD - 11/05/2023 IMPRESSION SINUS TACHYCARDIA RIGHT BUNDLE BRANCH BLOCK [120+ ms QRS DURATION, UPRIGHT V1, 40+ ms S INI/aVL/V4/V5/V6] ABNORMAL ECG P-R Interval 173 ms QRS Interval 127 ms QT Interval 395 ms QTC Interval 458 ms P [place] 57 QRS [place] 34 T Wave [place] 43 Devin Dougherty MD EKG [facility] EKG ORDERS * CT SPINE LUMBAR NO IV CON (11/04/2023 11:05 PM HOSPITAL MEDICAL ASSISTANT) Anatomical Region Laterality Modality Lumbar Spine Computed Tomogra phy 11/04/2023 11:2 3 PM HOSPITAL MEDICAL ASSISTANT Impressions 11/05/2023 9:22 AM HOSPITAL MEDICAL ASSISTANT Impression: 1. No suspected acute fracture or dislocation of the thoracic or lumbar spine. ?? 2. Nvga-md-xmverhdi lumbar spondylosis without suspected high-grade spinal canal or neural foraminal narrowing. I have personally reviewed the image(s) and initial interpretation, and I agree with the findings as documented by the resident/fellow. Reading Radiologist: Ford Fernández Resident: Laith Berkowitz Narrative 11/05/2023 9:22 AM HOSPITAL MEDICAL ASSISTANT Exam: Thoracic and Lumbar Spine CT Reconstructions, [...] dislocation of the thoracic or lumbarspine. 2. Iyfl-gy-woyisizl lumbar spondylosis without suspected high-grade spinalcanal or neural foraminal narrowing. I have personally reviewed the image(s) and initial interpretation, and Iagree with the findings as documented by the resident/fellow. Reading Radiologist: Ford Fernández Resident: Laith Berkowitz Devin Dougherty MD RAD CT NEURO * CT SPINE THORACIC NO IV CON (11/04/2023 11:05 PM HOSPITAL MEDICAL ASSISTANT) Anatomical Region Laterality Modality Thoracic Spine Computed Tomogra phy 11/04/2023 11:2 3 PM HOSPITAL MEDICAL ASSISTANT Impressions 11/05/2023 9:22 AM HOSPITAL MEDICAL ASSISTANT Impression: 1. No suspected acute fracture or dislocation of the thoracic or lumbar spine. ?? 2. Pscg-bw-jdwfksed lumbar spondylosis without suspected high-grade spinal canal or neural foraminal narrowing. I have personally reviewed the image(s) and initial interpretation, and I agree with the findings as documented by the resident/fellow. Reading Radiologist: Ford Fernández Resident: Laith Berkowitz Narrative 11/05/2023 9:22 AM HOSPITAL MEDICAL ASSISTANT Exam: Thoracic and Lumbar Spine CT Reconstructions, [...] dislocation of the thoracic or lumbarspine. 2. Dgkd-ln-eialisca lumbar spondylosis without suspected high-grade spinalcanal or neural foraminal narrowing. I have personally reviewed the image(s) and initial interpretation, and Iagree with the findings as documented by the resident/fellow. Reading Radiologist: Ford Fernández Resident: Laith Berkowitz Devin Dougherty MD RAD CT NEURO * CT CHEST/ABD/PELVIS W/IV CONT (11/04/2023 11:05 PM HOSPITAL MEDICAL ASSISTANT) Anatomical Region Laterality Modality Chest Computed Tomogra phy 11/04/2023 11:2 9 PM HOSPITAL MEDICAL ASSISTANT Impressions 11/05/2023 6:33 AM HOSPITAL MEDICAL ASSISTANT Impression: 1. No acute traumatic sequelae in [...] Reading Resident: Laith Berkowitz 11/05/2023 6:33 AM HOSPITAL MEDICAL ASSISTANT Comparison: None Indication: Trauma (STAB) ?? Technique: [...] CERVICAL NO IV CON (11/04/2023 11:05 PM HOSPITAL MEDICAL ASSISTANT) Anatomical Region Laterality Modality Cervical Spine Computed Tomogra phy 11/04/2023 11:2 0 PM HOSPITAL MEDICAL ASSISTANT Impressions 11/05/2023 8:27 AM HOSPITAL MEDICAL ASSISTANT Impression: ?? 1. No acute fracture or traumatic subluxation of the cervical vertebrae. 2. Mild degenerative changes of the cervical spine without high-grade spinal canal or neural foraminal narrowing. I have personally reviewed the image(s) and initial interpretation, and I agree with the findings as documented by the resident/fellow. Reading Radiologist: Ford Fernández Resident: Laith Berkowitz Narrative 11/05/2023 8:27 AM HOSPITAL MEDICAL ASSISTANT Exam: Cervical spine CT without contrast, 11/04/2023 [...] spinal canal narrowing. C5-6: Mild left and cyvn-vc-gfjmulas right neural foraminal narrowing. Borderline mild spinal [...] spinal canal narrowing. C5-6: Mild left and hsqo-ai-urqheucs right neural foraminal narrowing.Borderline mild spinal canal [...] HEAD NO IV CONTRAST (11/04/2023 11:05 PM HOSPITAL MEDICAL ASSISTANT) Anatomical Region Laterality Modality Skull Computed Tomogra phy 11/04/2023 11:1 2 PM HOSPITAL MEDICAL ASSISTANT Impressions 11/05/2023 10:23 AM HOSPITAL MEDICAL ASSISTANT Impression: 1. Thin subdural hemorrhage, measuring up [...] Fernández Resident: Laith Berkowitz 11/05/2023 10:23 AM HOSPITAL MEDICAL ASSISTANT Exam: Head CT without contrast, 11/05/2023 Indication: [...] VIEW AP OR PA* (11/04/2023 10:57 PM HOSPITAL MEDICAL ASSISTANT) Anatomical Region Laterality Modality Chest Computed Radiogr aphy 11/04/2023 11:0 0 PM HOSPITAL MEDICAL ASSISTANT Impressions 11/05/2023 6:18 AM HOSPITAL MEDICAL ASSISTANT Impression: No acute cardiopulmonary findings. I have personally reviewed the image(s) and initial interpretation, and I agree with the findings as documented by the resident/fellow. Reading Radiologist: Scott Porras Resident: Laith Berkowitz Narrative 11/05/2023 6:18 AM HOSPITAL MEDICAL ASSISTANT Technique: XR CHEST 1 VIEW AP OR [...] HEMOGLOBIN TOTAL (ED ONLY) (11/04/2023 10:48 PM HOSPITAL MEDICAL ASSISTANT) Hgb 10.3(L) 11.5 - 15.7 g/dL [facility] Blood 11/04/2023 10:4 8 PM HOSPITAL MEDICAL ASSISTANT 11/04/2023 10:49 PM HOSPITAL MEDICAL ASSISTANT Devin Dougherty MD LABORATORY [facility] [address] [address] * (ABNORMAL) ED CHEMISTRY LABS(NA,K,CL,CO2,GLU,CREAT,CA-IONIZED,ANION GAP) (11/04/2023 10:48 PM HOSPITAL MEDICAL ASSISTANT) Sodium 144 135 - 148 mEq/L [facility] Chloride 106 92 - 108 mEq/L [facility] AnGap 11 8 - 16 mEq/L [facility] Glucose 234(H) 70 - 100 mg/dL [facility] ICA, Actual 4.52 4.40 - 5.20 mg/dL [facility] ICA, pH Corrected 4.51 4.40 - 5.20 mg/dL [facility] Creatinine 0.81 0.50 - 1.00 mg/dL [facility] BICARB 27(H) 22 - 26 mEq/L [facility] eGFR (2020 CKD-EPI) 73 >=60 ml/min/1.7 3m2 [facility] Comment: The estimated glomerular filtration rate (eGFR) was calculated using the CKD-EPI 2020 creatinine equation, which does not include race as a factor. This equation is validated in individuals 18 years of age and older, and eGFR is normalized to a body surface area of 1.73m^2. Potassium 2.8(AA) 3.5 - 5.3 mEq/L [facility] Comment:Critcal Result Low Blood 11/04/2023 10:4 8 PM HOSPITAL MEDICAL ASSISTANT 11/04/2023 10:49 PM HOSPITAL MEDICAL ASSISTANT Narrative [facility] - 11/04/2023 10:55 PM HOSPITAL MEDICAL ASSISTANT Critical value for Potassium called to and read back by Rafa Hutchins RN in ??EDSTAB 2 at 11/04/2023 22:55:31 HOSPITAL MEDICAL ASSISTANT by Eleni Spring MLS. Devin Dougherty MD LABORATORY Performing Organization Address [facility] Co de Phone Number [facility] [address] [address] * (ABNORMAL) ANTI XA HEPARIN UNFRACTIONATED (11/04/2023 10:45 PM HOSPITAL MEDICAL ASSISTANT) Anti XA Hep U <0.04(L) 0.30 - 0.70 IU/mL [facility] Blood 11/04/2023 10:4 5 PM HOSPITAL MEDICAL ASSISTANT 11/04/2023 11:05 PM HOSPITAL MEDICAL ASSISTANT Devin Dougherty MD LABORATORY Performing Organization Address [facility] Co de Phone Number [facility] [address] [address] * EXTRA TUBE - SST (11/04/2023 10:45 PM HOSPITAL MEDICAL ASSISTANT) SST TUBE Stored [facility] Comment:SST tubes (Serum Sep arator) are stored in the lab for 3 days from the collection date. Blood 11/04/2023 10:4 5 PM HOSPITAL MEDICAL ASSISTANT 11/04/2023 10:50 PM HOSPITAL MEDICAL ASSISTANT Devin Dougherty MD LABORATORY Performing Organization Address [facility] Co de Phone Number [facility] [address] [address] * EXTRA TUBE - LIGHT GREEN (11/04/2023 10:45 PM HOSPITAL MEDICAL ASSISTANT) Pathologist [facility] LIGHT GREEN TUBE Stored [facility] Comment:Green tubes ([place] Heparin) are stored in the lab for 3 days from the collection date. Blood 11/04/2023 10:4 5 PM HOSPITAL MEDICAL ASSISTANT 11/04/2023 10:50 PM HOSPITAL MEDICAL ASSISTANT Devin Dougherty MD LABORATORY Performing Organization Address City/[facility]/ZIP Co de Phone Number [facility] [address] [address] * HS TROPONIN (11/04/2023 10:45 PM HOSPITAL MEDICAL ASSISTANT) [facility] HS Troponin I 10 <=14 ng/L [facility] Blood 11/04/2023 10:4 5 PM HOSPITAL MEDICAL ASSISTANT 11/04/2023 11:05 PM HOSPITAL MEDICAL ASSISTANT Narrative [facility] - 11/04/2023 11:36 PM HOSPITAL MEDICAL ASSISTANT First Occurrence of the Troponin order is to be drawn Stat by Nursing staff on the unit. Devin Dougherty MD LABORATORY Performing Organization Address [facility] Co de Phone Number [address] [address] * (ABNORMAL) PTT (APTT) (11/04/2023 10:45 PM HOSPITAL MEDICAL ASSISTANT) [facility] APTT 22.9(L) 25.0 - 37.0 sec [facility] Blood 11/04/2023 10:4 5 PM HOSPITAL MEDICAL ASSISTANT 11/04/2023 11:05 PM HOSPITAL MEDICAL ASSISTANT Devin Dougherty MD LABORATORY Performing Organization Address [facility] Co de Phone Number [address] [address] * ED INR (11/04/2023 10:45 PM HOSPITAL MEDICAL ASSISTANT) Pathologist [facility] ED INR 1.0 0.8 - 1.1 [facility] Comment: Warfarin Therapeutic Range: Standard Intensity: 2.0 - 3.0 High Intensity: 2.5 - 3.5 Blood 11/04/2023 10:4 5 PM HOSPITAL MEDICAL ASSISTANT 11/04/2023 10:48 PM HOSPITAL MEDICAL ASSISTANT Devin Dougherty MD LABORATORY [facility] [address] [address] * PRECAUTIONARY TUBE (11/04/2023 10:45 PM HOSPITAL MEDICAL ASSISTANT) Prec Tube Precautionary Blood Bank Specimen Received. [facility] Blood 11/04/2023 10:4 5 PM HOSPITAL MEDICAL ASSISTANT 11/04/2023 10:52 PM HOSPITAL MEDICAL ASSISTANT Devin Dougherty MD LAB TRANSFUSION SER VICES Performing Organization Address [facility] Co de Phone Number [address] [address] * (ABNORMAL) LACTATE (LACTIC ACID) (11/04/2023 10:45 PM HOSPITAL MEDICAL ASSISTANT) Lactate 2.7(H) 0.7 - 2.1 mmol/L [facility] Blood 11/04/2023 10:4 5 PM HOSPITAL MEDICAL ASSISTANT 11/04/2023 10:50 PM HOSPITAL MEDICAL ASSISTANT Narrative [facility] - 11/04/2023 10:50 PM HOSPITAL MEDICAL ASSISTANT Send specimen on ice! Devin Dougherty MD LABORATORY Performing Organization Address [facility] Co de Phone Number [facility] [address] [address] * FIBRINOGEN (11/04/2023 10:45 PM HOSPITAL MEDICAL ASSISTANT) Fibrinogen 288 200 - 400 mg/dL [facility] Blood 11/04/2023 10:4 5 PM HOSPITAL MEDICAL ASSISTANT 11/04/2023 11:05 PM HOSPITAL MEDICAL ASSISTANT Devin Dougherty MD LABORATORY Performing Organization Address City/[facility]/ZIP Co de Phone Number [facility] [address] [address] * (ABNORMAL) CBC WITH PLTS/AUTO DIFF (11/04/2023 10:45 PM HOSPITAL MEDICAL ASSISTANT) WBC 9.42 4.00 - 10.00 k/cmm [facility] RBC 3.86(L) 3.90 - 5.20 m/cmm [facility] Hgb 9.8(L) 11.5 - 15.7 g/dL [facility] Hematocrit 31.8(L) 34.0 - 45.0 % [facility] MCV 82.4 80.0 - 100.0 fL [facility] MCH 25.4 25.0 - 32.0 pg [facility] MCHC 30.8(L) 31.0 - 36.0 g/dL [facility] RDW 15.3(H) 11.5 - 14.5 % [facility] Plt 292 150 - 400 k/cmm [facility] MPV 11.1 6.5 - 12.5 fL [facility] Automated Abs Neutrophil 5.80 1.70 - 6.50 k/cmm [facility] Comment:Preliminary ANC, Fin al Result to Follow Abs Immature Granulocyte 0.07 0.00 - 0.09 k/cmm [facility] Comment:The Immature Granulo cyte Absolute count contains metamyelocytes and myelocytes. Abs Neutrophil 5.80 1.70 - 6.50 k/cmm [facility] Abs Lymphocyte 2.33 0.80 - 4.00 k/cmm [facility] Abs Monocyte 0.88 0.20 - 1.00 k/cmm [facility] Abs Eosinophil 0.27 0.00 - 0.60 k/cmm [facility] Abs Basophil 0.07 0.00 - 0.20 k/cmm [facility] Blood 11/04/2023 10:4 5 PM HOSPITAL MEDICAL ASSISTANT 11/04/2023 11:05 PM HOSPITAL MEDICAL ASSISTANT Devin Dougherty MD LABORATORY [facility] [address] [place] [address] * (ABNORMAL) BLOOD GASES (11/04/2023 10:45 PM HOSPITAL MEDICAL ASSISTANT) Pathologist [facility] PH Jalen 7.39 7.32 - 7.42 [facility] PCO2 Jalen 45 41 - 51 mmHG [facility] PO2 Jalen 41(H) 25 - 40 mmHG [facility] Bicarb Jalen 27 24 - 28 mEq/L [facility] O2 Sat Jalen 69 % [facility] Base Exc Jalen 1.4 -10.0 - 2.0 mEq/L [facility] Blood Venous 11/04/2023 10:4 5 PM HOSPITAL MEDICAL ASSISTANT 11/04/2023 10:50 PM HOSPITAL MEDICAL ASSISTANT Devin Dougherty MD LABORATORY [facility] [address] [address] * ED US CRITICAL CARE (11/04/2023 10:40 PM HOSPITAL MEDICAL ASSISTANT) Anatomical Region Laterality Modality Ultrasound Narrative 11/04/2023 11:28 PM HOSPITAL MEDICAL ASSISTANT ED Trauma eFAST Ultrasound Indications: Suspicion of [...] Primary Fall, initial encounter SDH (subdural hematoma) ([facility]) Subdural hemorrhage SAH (subarachnoid hemorrhage) ([facility]) Subarachnoid hemorrhage Traumatic brain injury with loss of consciousness, initial encounter ([facility]) documented in this encounter Admitting Diagnoses Diagnosis Fall, initial encounter documented in this encounter Administered Medications Inactive Administered Medications - up to 3 most recent administrations Medication Order MAR Action Action Date Dose Rate Site acetaminophen (OFIRMEV) 10 mg/mL IV 1,000 mg 1,000 mg, Intravenous, Q6H, Administer over 15 Minutes, First dose on Sun11/05/23 at 0255, Until Discontinued New Bag 11/05/2023 4:19 AM HOSPITAL MEDICAL ASSISTANT 1,000 mg 400 mL /hr acetaminophen tablet 650 mg 650 mg, Oral, Q6H PRN, Starting on Sun11/05/23 at 0859, Until Sun11/16/23 at 1221, Mild Pain (Use First) Given 11/12/2023 2:59 AM HOSPITAL MEDICAL ASSISTANT 650 mg Given 11/10/2023 3:29 PM HOSPITAL MEDICAL ASSISTANT 650 mg Given 11/10/2023 9:23 AM HOSPITAL MEDICAL ASSISTANT 650 mg allopurinol (ZYLOPRIM) half tablet 50 mg 50 mg, Oral, DAILY, First dose on Sun11/08/23 at 0930, Until Discontinued Given 11/16/2023 7:33 AM HOSPITAL MEDICAL ASSISTANT 50 mg Given 11/15/2023 7:59 AM HOSPITAL MEDICAL ASSISTANT 50 mg Given 11/14/2023 8:15 AM HOSPITAL MEDICAL ASSISTANT 50 mg amLODIPine (NORVASC) tablet 5 mg 5 mg, Oral, DAILY, First dose on Sun11/12/23 at 1045, Until Discontinued Given 11/16/2023 7:33 AM HOSPITAL MEDICAL ASSISTANT 5 mg Given 11/15/2023 8:00 AM HOSPITAL MEDICAL ASSISTANT 5 mg Given 11/14/2023 8:14 AM HOSPITAL MEDICAL ASSISTANT 5 mg bisacodyl (DULCOLAX) suppository 10 mg 10 mg, Rectal, ONE TIME-NOW, 1 dose, On Sun11/14/23 at 0910 Given 11/14/2023 10:10 AM HOSPITAL MEDICAL ASSISTANT 10 mg carvedilol (COREG) tablet 12.5 mg 12.5 mg, Oral, BID, First dose on Sun11/05/23 at 2000, Until Discontinued Given 11/06/2023 8:03 PM HOSPITAL MEDICAL ASSISTANT 12.5 mg Given 11/06/2023 8:50 AM HOSPITAL MEDICAL ASSISTANT 12.5 mg Given 11/05/2023 8:04 PM HOSPITAL MEDICAL ASSISTANT 12.5 mg carvedilol (COREG) tablet 12.5 mg 12.5 mg, Oral, BID, First dose (after last modification) on Sun11/07/23 at 2000, Until Discontinued Given 11/09/2023 9:04 AM HOSPITAL MEDICAL ASSISTANT 12.5 mg Given 11/08/2023 7:48 PM HOSPITAL MEDICAL ASSISTANT 12.5 mg Given 11/08/2023 7:53 AM HOSPITAL MEDICAL ASSISTANT 12.5 mg carvedilol (COREG) tablet 6.25 mg 6.25 mg, Oral, BID, First dose (after last modification) on Sun11/09/23 at 2000, Until Discontinued Given 11/16/2023 7:34 AM HOSPITAL MEDICAL ASSISTANT 6.25 mg Given 11/15/2023 9:11 PM HOSPITAL MEDICAL ASSISTANT 6.25 mg Given 11/15/2023 8:00 AM HOSPITAL MEDICAL ASSISTANT 6.25 mg chlorthaLIDONE (HYGROTON) tablet 25 mg 25 mg, Oral, DAILY, First dose (after last reorder) on Sun11/06/23 at 1100, Until Discontinued Given 11/06/2023 2:55 PM HOSPITAL MEDICAL ASSISTANT 25 mg chlorthaLIDONE (HYGROTON) tablet 25 mg 25 mg, Oral, DAILY, First dose (after last modification) on Sun11/08/23 at 0800, Until Discontinued Given 11/16/2023 7:33 AM HOSPITAL MEDICAL ASSISTANT 25 mg Given 11/15/2023 7:59 AM HOSPITAL MEDICAL ASSISTANT 25 mg Given 11/14/2023 8:15 AM HOSPITAL MEDICAL ASSISTANT 25 mg clevidipine (CLEVIPREX) 50 mg in 100 mL emulsion 0-21 mg/hr (0-42 mL/hr), Start infusion at (mg/hr): 2, Titrate to: SBP (mmHg), of: 140, Intravenous, CONTINUOUS, Starting on Sun11/04/23 at 2320, Until Sun11/06/23 at 0846 Rate changed 11/06/2023 5:34 AM HOSPITAL MEDICAL ASSISTANT 8 mg/hr 16 mL/hr New Bag 11/06/2023 4:49 AM HOSPITAL MEDICAL ASSISTANT 6 mg/hr 12 mL/hr Rate changed 11/06/2023 1:58 AM HOSPITAL MEDICAL ASSISTANT 6 mg/hr 12 mL/hr clevidipine (CLEVIPREX) 50 mg in 100 mL emulsion 0-21 mg/hr (0-42 mL/hr), Start infusion at (mg/hr): 1, Titrate to: SBP (mmHg), of: 140, Intravenous, CONTINUOUS, Starting on Sun11/05/23 at 0120, Until Sun11/05/23 at 0246 New Bag 11/05/2023 1:46 AM HOSPITAL MEDICAL ASSISTANT 21 mg/hr 42 mL/hr clevidipine (CLEVIPREX) 50 mg in 100 mL emulsion 0-21 mg/hr (0-42 mL/hr), Start infusion at (mg/hr): 2, Titrate to: SBP (mmHg), of: 160, Intravenous, CONTINUOUS, Starting on Sun11/06/23 at 0905, Until Sun11/07/23 at 0711 Rate changed 11/06/2023 4:58 PM HOSPITAL MEDICAL ASSISTANT 2 mg/hr 4 mL/hr Restarted 11/06/2023 4:50 PM HOSPITAL MEDICAL ASSISTANT 3 mg/hr 6 mL/hr Rate changed 11/06/2023 2:56 PM HOSPITAL MEDICAL ASSISTANT 3 mg/hr 6 mL/hr DC MED REC [...] 0905, Until Discontinued Given 11/16/2023 7:33 AM HOSPITAL MEDICAL ASSISTANT 250 mg Given 11/15/2023 8:58 PM HOSPITAL MEDICAL ASSISTANT 250 mg Given 11/15/2023 7:59 AM HOSPITAL MEDICAL ASSISTANT 250 mg enoxaparin (LOVENOX) 30 mg/0.3 mL injection 30 mg 30 mg, Subcutaneous, Q12H, First dose on Sun11/07/23 at 2000, Until Discontinued Given 11/15/2023 8:57 PM HOSPITAL MEDICAL ASSISTANT 30 mg Abdominal Tissue Given 11/15/2023 8:02 AM HOSPITAL MEDICAL ASSISTANT 30 mg Le ft Upper Arm Given 11/14/2023 8:20 PM HOSPITAL MEDICAL ASSISTANT 30 mg Ri ght Upper Arm hydrALAZINE (APRESOLINE) 20 mg/mL injection 10 mg 10 mg, IV Push, Q4H PRN, Starting on Sun11/07/23 at 1004, Until Sun11/08/23 at 0906, SBP greater than 160 mmHg Given 11/07/2023 5:01 PM HOSPITAL MEDICAL ASSISTANT 10 mg hydrALAZINE (APRESOLINE) 20 mg/mL injection 20 mg 20 mg, IV Push, ONE TIME-NOW, 1 dose, On Sun11/07/23 at 1005 Given 11/07/2023 10:29 AM HOSPITAL MEDICAL ASSISTANT 20 mg insulin ASPART (NovoLOG) FlexPen Insulin [...] 0120, Until Discontinued Given 11/05/2023 5:53 PM HOSPITAL MEDICAL ASSISTANT 1 UNITS Abdominal Tissue Given 11/05/2023 12:40 PM HOSPITAL MEDICAL ASSISTANT 2 UNITS L eft Upper Arm Given 11/05/2023 8:00 AM HOSPITAL MEDICAL ASSISTANT 1 UNITS Le ft Upper Arm insulin [...] 1630, Until Discontinued Given 11/13/2023 4:35 PM HOSPITAL MEDICAL ASSISTANT 1 UNITS Right Upper Arm Given 11/13/2023 11:56 AM HOSPITAL MEDICAL ASSISTANT 1 UNITS L eft Upper Quadrant Abdomen Given 11/09/2023 5:47 PM HOSPITAL MEDICAL ASSISTANT 1,747 UNITS A bdominal Tissue insulin ASPART [...] Sun11/04/23 at 2310 Given 11/04/2023 11:07 PM HOSPITAL MEDICAL ASSISTANT 120 mL Left Arm iohexol (OMNIPAQUE) 350 mg/mL injection IV Push, RAD ONE TIME AUTO ACKNOWLEDGE, 1 dose, On Sun11/05/23 at 0010 Given 11/05/2023 12:09 AM HOSPITAL MEDICAL ASSISTANT 60 mL labetalol (NORMODYNE;TRANDATE) 5 mg/mL injection 10 mg 10 mg, IV Push, Q1H PRN, Starting on Sun11/07/23 at 1004, Until Sun11/08/23 at 0906, SBP greater than 160 mmHg Given 11/08/2023 5:53 AM HOSPITAL MEDICAL ASSISTANT 10 mg Given 11/08/2023 4:16 AM HOSPITAL MEDICAL ASSISTANT 10 mg Given 11/08/2023 1:27 AM HOSPITAL MEDICAL ASSISTANT 10 mg lactated ringers infusion at 75 mL/hr, Intravenous, CONTINUOUS, Starting on Sun11/07/23 at 1055, Until Sun11/07/23 at 1625 Rate changed 11/07/2023 11:53 AM HOSPITAL MEDICAL ASSISTANT 75 mL/hr New Bag 11/07/2023 11:23 AM HOSPITAL MEDICAL ASSISTANT 110 mL/hr levETIRAcetam (KEPPRA) 750 mg in NaCl 0.9% 100 mL IVPB 750 mg, Intravenous, Q12H, Administer over 15 Minutes, First dose on Sun11/07/23 at 1400, Last dose on Sun11/12/23 at 0800 New Bag 11/08/2023 8:02 AM HOSPITAL MEDICAL ASSISTANT 750 mg 430 mL/hr New Bag 11/07/2023 3:10 PM HOSPITAL MEDICAL ASSISTANT 750 mg 430 mL/hr levETIRAcetam (KEPPRA) tablet 1,000 mg 1,000 mg, Oral, BID, 11 doses, First dose on Sun11/06/23 at 1999, Last dose on Sun11/11/23 at 1999 Given 11/06/2023 8:03 PM HOSPITAL MEDICAL ASSISTANT 1,000 mg levETIRAcetam (KEPPRA) tablet 750 mg 750 mg, Oral, BID, 7 doses, First dose on Sun11/08/23 at 1999, Last dose on Sun11/11/23 at 1999 Given 11/11/2023 7:57 PM HOSPITAL MEDICAL ASSISTANT 750 mg Given 11/11/2023 8:55 AM HOSPITAL MEDICAL ASSISTANT 750 mg Given 11/10/2023 8:58 PM HOSPITAL MEDICAL ASSISTANT 750 mg levETIRAcetam in NaCl (KEPPRA) 1000 mg/100 mL IVPB 1,000 mg 1,000 mg, Intravenous, Q12H, Administer over 15 Minutes, First dose on Sun11/05/23 at 0800, Last dose on Sun11/11/23 at 0800 New Bag 11/05/2023 8:04 PM HOSPITAL MEDICAL ASSISTANT 1,000 mg New Bag 11/05/2023 8:08 AM HOSPITAL MEDICAL ASSISTANT 1,000 mg levETIRAcetam in NaCl (KEPPRA) 1000 mg/100 mL IVPB 2,000 mg 2,000 mg, Intravenous, ONE TIME, Administer over 15 Minutes, On Sun11/04/23 at 2345 New Bag 11/04/2023 11:40 PM HOSPITAL MEDICAL ASSISTANT 2,000 mg losartan (COZAAR) tablet 25 mg 25 mg, Oral, DAILY, First dose on Sun11/05/23 at 0900, Until Discontinued Given 11/06/2023 8:50 AM HOSPITAL MEDICAL ASSISTANT 25 mg Given 11/05/2023 11:13 AM HOSPITAL MEDICAL ASSISTANT 25 mg losartan (COZAAR) tablet 25 mg 25 mg, Oral, BID, First dose (after last modification) on Sun11/13/23 at 0800, Until Discontinued Given 11/16/2023 7:33 AM HOSPITAL MEDICAL ASSISTANT 25 mg Given 11/15/2023 8:58 PM HOSPITAL MEDICAL ASSISTANT 25 mg Given 11/15/2023 8:00 AM HOSPITAL MEDICAL ASSISTANT 25 mg losartan (COZAAR) tablet 50 mg 50 mg, Oral, DAILY, First dose (after last modification) on Sun11/08/23 at 0800, Until Discontinued Given 11/12/2023 8:47 AM HOSPITAL MEDICAL ASSISTANT 50 mg Given 11/11/2023 8:55 AM HOSPITAL MEDICAL ASSISTANT 50 mg Given 11/10/2023 9:23 AM HOSPITAL MEDICAL ASSISTANT 50 mg magnesium sulfate 2 g IVPB 2 g, Intravenous, ONE TIME, Administer over 1 Hours, On Sun11/05/23 at 0220 New Bag 11/05/2023 2:59 AM HOSPITAL MEDICAL ASSISTANT 2 g 50 mL/hr magnesium sulfate 2 g IVPB 2 g, Intravenous, ONE TIME, Administer over 1 Hours, On Sun11/05/23 at 0620 New Bag 11/05/2023 8:08 AM HOSPITAL MEDICAL ASSISTANT 2 g 50 mL/hr melatonin tablet 3 mg 3 mg, Oral, BEDTIME, First dose on Sun11/08/23 at 2000, Until Discontinued Given 11/15/2023 8:57 PM HOSPITAL MEDICAL ASSISTANT 3 mg Given 11/14/2023 8:17 PM HOSPITAL MEDICAL ASSISTANT 3 mg Given 11/13/2023 8:41 PM HOSPITAL MEDICAL ASSISTANT 3 mg metFORMIN (GLUCOPHAGE) tablet 500 mg 500 mg, Oral, BID, First dose on Sun11/15/23 at 1010, Until Discontinued Given 11/16/2023 7:33 AM HOSPITAL MEDICAL ASSISTANT 500 mg Given 11/15/2023 8:57 PM HOSPITAL MEDICAL ASSISTANT 500 mg Given 11/15/2023 12:47 PM HOSPITAL MEDICAL ASSISTANT 500 mg NaCl 0.9% infusion at 100 mL/hr, Intravenous, CONTINUOUS, Starting on Sun11/05/23 at 0120, Until Sun11/05/23 at 1705 Infusing 11/05/2023 12:00 PM HOSPITAL MEDICAL ASSISTANT 100 mL/hr Infusing 11/05/2023 11:00 AM HOSPITAL MEDICAL ASSISTANT 100 mL/hr Infusing 11/05/2023 10:00 AM HOSPITAL MEDICAL ASSISTANT 100 mL/hr naproxen (NAPROSYN) tablet 500 mg 500 mg, Oral, BID, 19 doses, First dose on Sun11/08/23 at 0845, Last dose on Sun11/17/23 at 2000 Given 11/16/2023 7:33 AM HOSPITAL MEDICAL ASSISTANT 500 mg Given 11/15/2023 8:57 PM HOSPITAL MEDICAL ASSISTANT 500 mg Given 11/15/2023 7:58 AM HOSPITAL MEDICAL ASSISTANT 500 mg OLANZapine (ZyPREXA ZYDIS) disintegrating tablet 2.5 mg 2.5 mg, Oral, BEDTIME, First dose (after last modification) on Sun11/15/23 at 0230, Until Discontinued Given 11/15/2023 9:01 PM HOSPITAL MEDICAL ASSISTANT 2.5 mg Given 11/15/2023 3:27 AM HOSPITAL MEDICAL ASSISTANT 2.5 mg OLANZapine (ZyPREXA) tablet 10 mg 10 mg, Oral, BEDTIME PRN, Starting on Sun11/07/23 at 0048, Until Sun11/07/23 at 0836, Agitation Given 11/07/2023 1:46 AM HOSPITAL MEDICAL ASSISTANT 10 mg ondansetron (ZOFRAN ODT) disintegrating tablet 4 mg 4 mg, Oral, TID PRN, Starting on Sun11/06/23 at 1020, Until Sun11/16/23 at 1221, Nausea/Vomiting (Use First) ondansetron (ZOFRAN) 4 mg/2 mL injection 4 mg 4 mg, IV Push, ONE TIME, 1 dose, On Sun11/06/23 at 1025 Given 11/06/2023 10:31 AM HOSPITAL MEDICAL ASSISTANT 4 mg ondansetron (ZOFRAN) 4 mg/2 mL injection 1 dose, Starting on Sun11/06/23 at 1024, Until Sun11/06/23 at 1031 polyethylene glycol 3350 (MIRALAX;GLYCOLAX) packet 17 g 17 g, Oral, DAILY, First dose on Sun11/06/23 at 0800, Until Discontinued Given 11/13/2023 8:24 AM HOSPITAL MEDICAL ASSISTANT 17 g Given 11/12/2023 8:47 AM HOSPITAL MEDICAL ASSISTANT 17 g Given 11/11/2023 8:56 AM HOSPITAL MEDICAL ASSISTANT 17 g polyethylene glycol 3350 (MIRALAX;GLYCOLAX) packet 17 g 17 g, Oral, BID, First dose (after last modification) on Sun11/14/23 at 0800, Until Discontinued Given 11/15/2023 8:57 PM HOSPITAL MEDICAL ASSISTANT 17 g Given 11/15/2023 8:00 AM HOSPITAL MEDICAL ASSISTANT 17 g Given 11/14/2023 8:19 PM HOSPITAL MEDICAL ASSISTANT 17 g potassium chloride (K-DUR) tablet 40 mEq 40 mEq, Oral, ONE TIME, 1 dose, On Sun11/09/23 at 0735 Given 11/09/2023 9:43 AM HOSPITAL MEDICAL ASSISTANT 40 mEq potassium chloride (K-DUR) tablet 40 mEq 40 mEq, Oral, ONE TIME-NOW, 1 dose, On Sun11/13/23 at 1025 Given 11/13/2023 10:51 AM HOSPITAL MEDICAL ASSISTANT 40 mEq potassium chloride (K-DUR) tablet 40 mEq 40 mEq, Oral, DAILY, First dose on Sun11/14/23 at 0800, Until Discontinued Given 11/16/2023 7:34 AM HOSPITAL MEDICAL ASSISTANT 40 mEq Given 11/15/2023 7:58 AM HOSPITAL MEDICAL ASSISTANT 40 mEq Given 11/14/2023 8:15 AM HOSPITAL MEDICAL ASSISTANT 40 mEq potassium chloride (K-CANDIDO) 20 mEq 20 mEq, Oral, ONE TIME, 1 dose, On Sun11/05/23 at 1955 Given 11/05/2023 10:32 PM HOSPITAL MEDICAL ASSISTANT 20 mEq potassium chloride (K-CANDIDO) powder 20 mEq 20 mEq, Oral, ONE TIME, 1 dose, On Sun11/13/23 at 1540 Given 11/13/2023 4:35 PM HOSPITAL MEDICAL ASSISTANT 20 mEq potassium chloride IVPB 10 mEq 10 mEq, Intravenous, ONE TIME, Administer over 60 Minutes, On Sun11/04/23 at 2355 New Bag 11/05/2023 12:12 AM HOSPITAL MEDICAL ASSISTANT 10 m Eq potassium chloride IVPB 10 mEq 10 mEq, Intravenous, Q1H, Administer over 60 Minutes, First dose on Sun11/05/23 at 0220, Last dose on Sun11/05/23 at 0320 New Bag 11/05/2023 4:19 AM HOSPITAL MEDICAL ASSISTANT 10 mEq New Bag 11/05/2023 2:59 AM HOSPITAL MEDICAL ASSISTANT 10 mEq potassium chloride IVPB 10 mEq 10 mEq, Intravenous, Q1H, Administer over 60 Minutes, First dose on Sun11/05/23 at 0620, Last dose on Sun11/05/23 at 0720 New Bag 11/05/2023 8:04 AM HOSPITAL MEDICAL ASSISTANT 10 mEq rosuvastatin (CRESTOR) tablet 20 mg 20 mg, Oral, DAILY, First dose on Sun11/05/23 at 0900, Until Discontinued Given 11/16/2023 7:33 AM HOSPITAL MEDICAL ASSISTANT 20 mg Given 11/15/2023 7:58 AM HOSPITAL MEDICAL ASSISTANT 20 mg Given 11/14/2023 8:15 AM HOSPITAL MEDICAL ASSISTANT 20 mg sennosides-docusate sodium (STOOL SOFTENER/LAXATIVE) 8.6-50 mg tablet 1 tablet 1 tablet, Oral, BID, First dose on Sun11/06/23 at 0800, Until Discontinued Given 11/07/2023 7:54 PM HOSPITAL MEDICAL ASSISTANT 1 tablet Given 11/06/2023 8:03 PM HOSPITAL MEDICAL ASSISTANT 1 tablet sennosides-docusate sodium (STOOL SOFTENER/LAXATIVE) 8.6-50 mg tablet 1 tablet 1 tablet, Oral, BID, First dose (after last modification) on Sun11/14/23 at 0800, Until Discontinued Given 11/16/2023 7:33 AM HOSPITAL MEDICAL ASSISTANT 1 tablet Given 11/15/2023 8:57 PM HOSPITAL MEDICAL ASSISTANT 1 tablet Given 11/15/2023 7:59 AM HOSPITAL MEDICAL ASSISTANT 1 tablet venlafaxine (EFFEXOR XR) capsule 225 mg 225 mg, Oral, DAILY, First dose on Sun11/06/23 at 1000, Until Discontinued Given 11/16/2023 7:32 AM HOSPITAL MEDICAL ASSISTANT 225 mg Given 11/15/2023 7:58 AM HOSPITAL MEDICAL ASSISTANT 225 mg Given 11/14/2023 8:14 AM HOSPITAL MEDICAL ASSISTANT 225 mg VTE Anti Xa Monitoring Does not apply, PROTOCOL, Starting on Sun11/07/23 at 1354, Until Sun11/16/23 at 1221 documented in this encounter Active and Recently Administered Medications Times are shown in HOSPITAL MEDICAL ASSISTANT. Scheduled Medication Order 11/14/2023 11/15/2023 11/16/2023 allopurinol [...] Raiza Bustos, YOVANY)2057 (Given - Provider: Karolyn Jacbo, YOVANY) 0733 (Given - Provider: Cornell Solomon [...] pm documented in this encounter Care Teams Human Relations Manager Relationship Specialty Start Date End Date Eloise Reeves DO [address] [place] [address] PCP - General Family Medicine 11/06/23 documented as of this encounter
--- OUTSIDE RECORDS SUMMARY | 2023-12-11 01:29 | XMS_ITS | Encounter Summary ---
Author Name Unknown Organization [facility] Address [address] [place] [id number] Phone Care Team Providers Care Brick Siding Applicator Name Role Phone Eloise Reeves DO Primary Care Provider [phone] Encounter Details Date Type Department Care Team [...] Coronavirus/COVID-19? No / Unsure 11/04/2023 10:48 PM GLASS CUTTER HAND documented as of this encounter Plan of Treatment Not on file documented as of this encounter Procedures Procedure Name Priority Date/Time Associated Diagnosis Comments TELEMETRY STRIPS 11/08/2023 7:31 PM GLASS CUTTER HAND documented in this encounter Results * TELEMETRY STRIPS (11/08/2023 7:31 PM GLASS CUTTER HAND) Narrative 11/08/2023 7:31 PM GLASS CUTTER HAND Ordered by an unspecified provider. Provider Unknown RAD ECHO documented in this encounter Visit Diagnoses Not on filedocumented in this encounter Care Teams Brick Siding Applicator Relationship Specialty Start Date End Date Eloise Reeves DO [address] [place] [address] PCP - General Family Medicine 11/06/23 documented as of this encounter
--- OUTSIDE RECORDS SUMMARY | 2023-12-11 01:29 | XMS_ITS | Encounter Summary ---
Author Name Unknown Organization [facility] Address [address] [place] [id number] Phone Care Team Providers Care Keg Header Name Role Phone Eloise Reeves DO Primary [...] Coronavirus/COVID-19? No / Unsure 11/04/2023 10:48 PM DATA CAPTURE CLERK documented as of this encounter Plan of Treatment Not on file documented as of this encounter Procedures Procedure Name Priority Date/Time Associated Diagnosis Comments TELEMETRY STRIPS 11/06/2023 1:52 AM DATA CAPTURE CLERK documented in this encounter Results * TELEMETRY STRIPS (11/06/2023 1:52 AM DATA CAPTURE CLERK) Narrative 11/06/2023 1:52 AM DATA CAPTURE CLERK Ordered by an unspecified provider. Provider Unknown RAD ECHO documented in this encounter Visit Diagnoses Not on filedocumented in this encounter Care Teams Keg Header Relationship Specialty Start Date End Date Eloise Reeves DO [address] [place] [address] PCP - General Family Medicine 11/06/23 documented as of this encounter
--- OUTSIDE RECORDS SUMMARY | 2023-12-11 01:29 | XMS_ITS | Encounter Summary ---
Author Name Unknown Organization [facility] Address [address] [place] [id number] Phone Care Team Providers Care Automotive Finance Manager Name Role Phone Eloise Reeves DO Primary Care Provider [phone] Encounter Details Date Type Department Care Team [...] Coronavirus/COVID-19? No / Unsure 11/04/2023 10:48 PM LAUNCHING PAD MECHANIC documented as of this encounter Plan of Treatment Not on file documented as of this encounter Procedures Procedure Name Priority Date/Time Associated Diagnosis Comments TELEMETRY STRIPS 11/06/2023 8:49 AM LAUNCHING PAD MECHANIC documented in this encounter Results * TELEMETRY STRIPS (11/06/2023 8:49 AM LAUNCHING PAD MECHANIC) Narrative 11/06/2023 8:49 AM LAUNCHING PAD MECHANIC Ordered by an unspecified provider. Provider Unknown RAD ECHO documented in this encounter Visit Diagnoses Not on filedocumented in this encounter Care Teams Automotive Finance Manager Relationship Specialty Start Date End Date Eloise Reeves [address] [place] [address] PCP - General Family Medicine 11/06/23 documented as of this encounter
--- OUTSIDE RECORDS SUMMARY | 2023-12-11 01:29 | XMS_ITS | Encounter Summary ---
Author Name Unknown Organization [facility] Address [address] [place] [id number] Phone Care Team Providers Care [place] Boatman Name Role Phone Eloise Reeves DO Primary [...] Coronavirus/COVID-19? No / Unsure 11/04/2023 10:48 PM LICENSED MORTGAGE LOAN OFFICER documented as of this encounter Plan of Treatment Not on file documented as of this encounter Procedures Procedure Name Priority Date/Time Associated Diagnosis Comments TELEMETRY STRIPS 11/06/2023 4:28 PM LICENSED MORTGAGE LOAN OFFICER documented in this encounter Results * TELEMETRY STRIPS (11/06/2023 4:28 PM LICENSED MORTGAGE LOAN OFFICER) Narrative 11/06/2023 4:28 PM LICENSED MORTGAGE LOAN OFFICER Ordered by an unspecified provider. Provider Unknown RAD ECHO documented in this encounter Visit Diagnoses Not on filedocumented in this encounter Care Teams [place] Boatman Relationship Specialty Start Date End Date Eloise Reeves DO [address] [place] [address] PCP - General Family Medicine 11/06/23 documented as of this encounter
--- OUTSIDE RECORDS SUMMARY | 2023-12-11 01:30 | XMS_ITS | Clinical Summary ---
Author Name Unknown Organization [facility] Address [place], [place] [address] Care Team Providers Care Container Coordinator Name Role Phone Eloise Reeves Primary Care Provider [phone] Allergies Active Allergy Reactions Criticality Noted Date [...] PVCs 10/20/2014 Breast cancer, left Overview: in [place], had mastectomy. No chemo or radiation Encounters Date Type Department Care Team Description 12/10/2023 Telephone [facility] [place] [address] Eloise Reeves DO Concerns (12/12/23) 11/29/2023 Telephone [facility] [place] [address] Eloise Reeves DO Appointment Request 11/22/2023 10:30 AM COMMUNICATION COORDINATOR Office Visit [facility] [place] [address] [address] LICSW Failed Appointment 11/02/2023 Telephone [facility] [place] [address] Eloise Reeves DO Results 11/01/2023 1:05 PM COMMUNICATION COORDINATOR Office Visit [facility] [address] Eloise Reeves DO Follow Up 11/01/2023 Orders Only [facility] [place] [address] Eloise Reeves DO <No scans attached> 11/01/2023 Travel 10/16/2023 10:30 AM COMMUNICATION COORDINATOR Office Visit [facility] [place] [address] [address] LICSW [facility] Visit 10/16/2023 Travel 10/10/2023 Telephone [facility] [place] [facility] [address] [place] [address] Twan Suersh MD Referral (Patient is ready to be scheduled. Referral consult to Neurology. ) 10/09/2023 1:05 PM COMMUNICATION COORDINATOR Office Visit [facility] [place] [address] Eloise Reeves DO Follow Up; Tremors 10/09/2023 Telephone [facility] [place] [facility] [place] [address] García Driscoll MD Error-please disregard 10/09/2023 Travel 10/04/2023 10:30 AM COMMUNICATION COORDINATOR Office Visit [facility] [address] [place] [address] [address] [facility] Failed Appointment 09/28/2023 Telephone [facility] [place] [address] Eloise Reeves DO Results 09/27/2023 Orders Only [facility] [place] [address] Eloise Reeves DO <No scans attached> 09/26/2023 1:55 PM COMMUNICATION COORDINATOR Office Visit [facility] [place] [address] Eloise Reeves DO Dizziness (1 day); Nausea (1 day); Diarrhea (1 day); Urinary Problem (frequency) 09/26/2023 Travel 09/25/2023 Telephone [facility] [address] [place] [address] Eloise Reeves DO Appointment Request (FOLLOW UP BEFORE 11-01-2023) 09/17/2023 10:30 AM COMMUNICATION COORDINATOR Office Visit [facility] [place] [address] [address], [facility] Visit 09/17/2023 Travel 09/13/2023 Telephone [facility] [place] [address] Eloise Reeves DO Results 09/13/2023 Orders Only [place] [address] [facility] [place] [address] Eloise Reeves DO <No scans attached> 09/12/2023 9:10 AM COMMUNICATION COORDINATOR Office Visit [facility] [place] [address] Eloise Reeves DO Diabetes 09/12/2023 Travel from [...] Comments Blood Pressure 157/79 11/01/2023 11:36 AM COMMUNICATION COORDINATOR Pulse 83 11/01/2023 11:36 AM COMMUNICATION COORDINATOR Temperature 37.1 ??C (98.8 ??F) 04/04/2022 12:51 PM C DT Respiratory Rate 16 08/22/2022 9:54 AM CDT Oxygen Saturation 96% 11/01/2023 11:36 AM COMMUNICATION COORDINATOR Inhaled Oxygen Concentration - - Weight 67.6 kg (149 lb) 11/01/2023 11:36 AM COMMUNICATION COORDINATOR Height 142.8 cm (4' 8.22) 01/02/2023 1:43 PM CS T Body Mass Index 33.14 01/02/2023 1:43 PM COMMUNICATION COORDINATOR Plan of Treatment Upcoming Encounters Date Type Department Care Team (Late st Contact Info) Description 12/12/2023 1:05 PM COMMUNICATION COORDINATOR Office Visit [facility] [address] [place] [address] Eloise Reeves DO [address] [place] [address] Health Maintenance Due Date Last Done Comments [...] Diagnosis Comments CREATININE Routine 11/01/2023 12:37 PM COMMUNICATION COORDINATOR Gout of left foot, unspecified cause, unspecified chronicity POTASSIUM Routine 11/01/2023 12:37 PM COMMUNICATION COORDINATOR Hypokalemia URINALYSIS MICROSCOPIC Routine 09/26/2023 3:25 PM COMMUNICATION COORDINATOR Urinary frequency UA W/ SEDIMENT EXAM REFLEXED PER CRITERIA Routine 09/26/2023 3:25 PM COMMUNICATION COORDINATOR Urinary frequency BASIC METABOLIC PANEL Routine 09/26/2023 2:55 PM COMMUNICATION COORDINATOR HTN (hypertension) HEMOGLOBIN Routine 09/26/2023 2:55 PM COMMUNICATION COORDINATOR Anemia of unknown etiology SCAN CORRESP-LABORATORY RESULTS 09/12/2023 10:56 AM COMMUNICATION COORDINATOR SCAN CORRESP-IMAGING 09/12/2023 10:56 AM COMMUNICATION COORDINATOR SCAN CORRESP-IMAGING 09/12/2023 10:56 AM COMMUNICATION COORDINATOR SCAN CORRESP-IMAGING 09/12/2023 10:56 AM COMMUNICATION COORDINATOR VITAMIN B12 Add On 09/12/2023 9:30 AM COMMUNICATION COORDINATOR Hallucinations BASIC METABOLIC PANEL Add On 09/12/2023 9:30 AM COMMUNICATION COORDINATOR Hypertension IRON PLUS IRON BINDING CAP Add On 09/12/2023 9:30 AM COMMUNICATION COORDINATOR Anemia of unknown etiology FERRITIN Add On 09/12/2023 9:30 AM COMMUNICATION COORDINATOR Anemia of unknown etiology TSH WITH REFLEX Add On 09/12/2023 9:30 AM COMMUNICATION COORDINATOR Hallucinations Other fatigue HEMOGLOBIN Routine 09/12/2023 9:30 AM COMMUNICATION COORDINATOR Anemia of unknown etiology URIC ACID Routine 09/12/2023 9:30 AM COMMUNICATION COORDINATOR History of gout POTASSIUM Routine 09/12/2023 9:30 AM COMMUNICATION COORDINATOR Hypertension CREATININE Routine 09/12/2023 9:30 AM COMMUNICATION COORDINATOR Hypertension HEMOGLOBIN A1C Routine 09/12/2023 9:30 AM COMMUNICATION COORDINATOR Controlled type 2 diabetes mellitus without complication, without long-term current use of insulin (HC) from Last 3 Months Results * POTASSIUM (11/01/2023 12:37 PM COMMUNICATION COORDINATOR) Only the most recent of2 resultswithin the time period is included. POTASSIUM 3.5 3.5 - 5.1 mmol/L 11/01/2023 9:42 PM COMMUNICATION COORDINATOR [facility] Blood BLOOD SPECIMEN / Unknown Venipuncture / Unknown 11/01/2023 12:37 PM COMMUNICATION COORDINATOR 11/01/2023 12:39 PM COMMUNICATION COORDINATOR Health Integrated CHEMISTRY Performing Organization Address City/[facility] Co de Phone Number [facility] [address] [place] [address], * (ABNORMAL) CREATININE (11/01/2023 12:37 PM COMMUNICATION COORDINATOR) Only the most recent of2 resultswithin the time period is included. eGFR 73(L) >90 mL/min/1.7 3m2 11/01/2023 9:42 PM COMMUNICATION COORDINATOR [facility] Comment:As of 2022, eG FR is calculated by the CKD-EPI creatinine equation without race adjustment. ??eGFR can be influenced by muscle mass, exercise, and diet. ??The reported eGFR is an estimation only and is only applicable if the renal function is stable. CREATININE 0.81 0.50 - 0.90 mg/dL 11/01/2023 9:42 PM COMMUNICATION COORDINATOR [facility] Blood BLOOD SPECIMEN / Unknown Venipuncture / Unknown 11/01/2023 12:37 PM COMMUNICATION COORDINATOR 11/01/2023 12:39 PM COMMUNICATION COORDINATOR [facility] CHEMISTRY Performing Organization Address City/[facility]/ZIP Co de Phone Number [facility] [address] [place] [address], [place] * URINALYSIS MICROSCOPIC (09/26/2023 3:25 PM COMMUNICATION COORDINATOR) RBC 0-2 0-2, None Seen /HPF 09/26/2023 3:35 PM COMMUNICATION COORDINATOR [facility] WBC 0-2 0-2, 3-5, None Seen /HPF 09/26/2023 3:35 PM COMMUNICATION COORDINATOR [facility] BACTERIA Few None Seen, Rare, Few Bacteria/H PF 09/26/2023 3:35 PM COMMUNICATION COORDINATOR [facility] EPITHELIAL CELLS Few None Seen, Few Epi/HPF 09/26/2023 3:35 PM COMMUNICATION COORDINATOR [facility] Mucus Present 09/26/2023 3:35 PM COMMUNICATION COORDINATOR [facility] HYALINE CASTS 0-2 0-2, 3-5 /LPF 09/26/2023 3:35 PM COMMUNICATION COORDINATOR [facility] Urine URINE SPECIMEN / Unknown Non-Blood / Unknown 09/26/2023 3:25 PM COMMUNICATION COORDINATOR 09/26/2023 3:25 PM COMMUNICATION COORDINATOR Narrative [facility] - 09/26/2023 3:35 PM COMMUNICATION COORDINATOR <1.5 ml. ??QNS for accurate microscopic exam. ??Microscopic done on unspun urine. Eloise Reeves DO URINE [facility] [address] [place] [address], [place] [phone] * (ABNORMAL) UA W/ SEDIMENT EXAM REFLEXED PER CRITERIA (09/26/2023 3:25 PM COMMUNICATION COORDINATOR) COLOR Yellow Yellow Color 09/26/2023 3:33 PM COMMUNICATION COORDINATOR [facility] CLARITY Clear Clear Clarity 09/26/2023 3:33 PM COMMUNICATION COORDINATOR [facility] SPECIFIC GRAVITY,URINE >=1.030(A) 1.010, 1.015, 1.020, 1.025 09/26/2023 3:33 PM COMMUNICATION COORDINATOR [facility] PH,URINE 5.5 6.0, 7.0, 8.0, 5.5, 6.5, 7.5, 8.5 09/26/2023 3:33 PM COMMUNICATION COORDINATOR [facility] UROBILINOGEN,QU ALITATIVE Normal Normal EU/dl 09/26/2023 3:33 PM COMMUNICATION COORDINATOR [facility] PROTEIN, URINE 30(A) Negative mg/dL 09/26/2023 3:33 PM COMMUNICATION COORDINATOR [facility] GLUCOSE, URINE Negative Negative mg/dL 09/26/2023 3:33 PM COMMUNICATION COORDINATOR [facility] KETONES,URINE 15(A) Negative mg/dL 09/26/2023 3:33 PM COMMUNICATION COORDINATOR [facility] BILIRUBIN,URINE Abnormal(A) Negative 09/26/20 3:33 PM COMMUNICATION COORDINATOR [facility] Comment:A variety of metabol ites and/or medications may result in a positive bilirubin result. Clinical correlation is recommended. OCCULT BLOOD,URINE Negative Negative 09/26/2023 3:33 PM COMMUNICATION COORDINATOR [facility] NITRITE Negative Negative 09/26/2023 3:33 PM COMMUNICATION COORDINATOR [facility] LEUKOCYTE ESTERASE Negative Negative 09/26/2023 3:33 PM COMMUNICATION COORDINATOR [facility] Urine URINE SPECIMEN / Unknown Non-Blood / Unknown 09/26/2023 3:25 PM COMMUNICATION COORDINATOR 09/26/2023 3:25 PM COMMUNICATION COORDINATOR Eloise Reeves DO URINE [facility] [address] [place] [address], [place] [phone] * (ABNORMAL) HEMOGLOBIN (09/26/2023 2:55 PM COMMUNICATION COORDINATOR) Only the most recent of2 resultswithin the time period is included. HEMOGLOBIN 10.9(L) 12.0 - 16.0 g/dL 09/26/2023 3:04 PM COMMUNICATION COORDINATOR [facility] MCV 82 80 - 100 fL 09/26/2023 3:04 PM COMMUNICATION COORDINATOR [facility] Blood BLOOD SPECIMEN / Unknown Venipuncture / Unknown 09/26/2023 2:55 PM COMMUNICATION COORDINATOR 09/26/2023 2:56 PM COMMUNICATION COORDINATOR Eloise Reeves DO HEMATOLOGY [facility] [address] [place] [address], [place] [phone] * (ABNORMAL) BASIC METABOLIC PANEL (09/26/2023 2:55 PM COMMUNICATION COORDINATOR) Only the most recent of2 resultswithin the time period is included. SODIUM 140 136 - 145 mmol/L 09/26/2023 10:22 PM [facility] POTASSIUM 3.3(L) 3.5 - 5.1 mmol/L 09/26/2023 10:22 PM [facility] CHLORIDE 101 98 - 107 mmol/L 09/26/2023 10:22 PM [facility] CO2,TOTAL 26 22 - 29 mmol/L 09/26/2023 10:22 PM [facility] ANION GAP 13 5 - 18 09/26/2023 10:22 PM [facility] GLUCOSE 112(H) 70 - 99 mg/dL 09/26/2023 10:22 PM [facility] CALCIUM 9.7 8.8 - 10.2 mg/dL 09/26/2023 10:22 PM [facility] BUN 17 8 - 23 mg/dL 09/26/2023 10:22 PM [facility] CREATININE 1.08(H) 0.50 - 0.90 mg/dL 09/26/2023 10:22 PM [facility] BUN/CREAT RATIO 16 10 - 20 10:22 PM [facility] eGFR 52(L) >90 mL/min/1.7 3m2 09/26/2023 10:22 PM [facility] Comment:As of 2022, eG FR is calculated by the CKD-EPI creatinine equation without race adjustment. ??eGFR can be influenced by muscle mass, exercise, and diet. ??The reported eGFR is an estimation only and is only applicable if the renal function is stable. Blood BLOOD SPECIMEN / Unknown Venipuncture / Unknown 09/26/2023 2:55 PM COMMUNICATION COORDINATOR 09/26/2023 2:56 PM COMMUNICATION COORDINATOR Eloise Reeves DO CHEMISTRY Performing Organization Address City/[facility]/ZIP Co de Phone Number [facility] [address] [place] [address], [place] * SCAN CORRESP-LABORATORY RESULTS (09/12/2023 10:56 AM COMMUNICATION COORDINATOR) Narrative 09/12/2023 10:56 AM COMMUNICATION COORDINATOR Ordered by an unspecified provider. Other Clinical Staff OTHER * SCAN CORRESP-IMAGING (09/12/2023 10:56 AM COMMUNICATION COORDINATOR) Only the most recent of3 resultswithin the time period is included. Anatomical Region Laterality Modality Other Narrative 09/12/2023 10:56 AM COMMUNICATION COORDINATOR Ordered by an unspecified provider. Other Clinical Staff OTHER * TSH WITH REFLEX (09/12/2023 9:30 AM COMMUNICATION COORDINATOR) TSH 0.72 0.27 - 4.20 uIU/mL 09/12/2023 6:43 PM COMMUNICATION COORDINATOR [facility] Blood BLOOD SPECIMEN / Unknown Venipuncture / Unknown 09/12/2023 9:30 AM COMMUNICATION COORDINATOR 09/12/2023 9:33 AM COMMUNICATION COORDINATOR Narrative [facility] - 09/12/2023 6:43 PM COMMUNICATION COORDINATOR In Adults, TSH values between 5.00 and 10.00 uIU/ml do not necessarily indicate the presence of Hypothyroidism. Correlation with clinical findings such as presence of goiter and/or Thyroperoxidase (TPO) Antibody may be helpful. For more information please refer to INKKIE 2004; 291: 228-238. Eloise Reeves DO CHEMISTRY [facility] [address] [place] [address], [place] * (ABNORMAL) IRON PLUS IRON BINDING CAP (09/12/2023 9:30 AM COMMUNICATION COORDINATOR) Pathologist [facility] IRON 35(L) 37 - 145 ug/dL 09/12/2023 6:43 PM COMMUNICATION COORDINATOR [facility] UIBC (UNSATURATED) 277 112 - 347 ug/dL 09/12/2023 6:43 PM COMMUNICATION COORDINATOR [facility] IRON BINDING CAPACITY 312 250 - 400 ug/dL 09/12/2023 6:43 PM COMMUNICATION COORDINATOR [facility] IRON,% SATURATION 11(L) 14 - 50 % 09/12/2023 6:43 PM COMMUNICATION COORDINATOR [facility] Blood BLOOD SPECIMEN / Unknown Venipuncture / Unknown 09/12/2023 9:30 AM COMMUNICATION COORDINATOR 09/12/2023 9:33 AM COMMUNICATION COORDINATOR Eloise Reeves DO CHEMISTRY Performing Organization Address [facility] Co de Phone Number [facility] [address] * (ABNORMAL) URIC ACID (09/12/2023 9:30 AM COMMUNICATION COORDINATOR) URIC ACID 9.4(H) 2.4 - 5.7 mg/dL 09/12/2023 7:06 PM COMMUNICATION COORDINATOR [facility] Blood BLOOD SPECIMEN / Unknown Venipuncture / Unknown 09/12/2023 9:30 AM COMMUNICATION COORDINATOR 09/12/2023 9:33 AM COMMUNICATION COORDINATOR Eloise Reeves DO CHEMISTRY Performing Organization Address [facility] de Phone Number [facility] [address] * (ABNORMAL) HEMOGLOBIN A1C MONITORING (POCT) (09/12/2023 9:30 AM COMMUNICATION COORDINATOR) HEMOGLOBIN A1C MONITORING (POCT) 8.4(H) <=6.4 % 09/12/2023 10:00 AM COMMUNICATION COORDINATOR [facility] Blood BLOOD SPECIMEN / Unknown Venipuncture / Unknown 09/12/2023 9:30 AM COMMUNICATION COORDINATOR 09/12/2023 9:33 AM COMMUNICATION COORDINATOR Narrative [facility] - 09/12/2023 10:00 AM COMMUNICATION COORDINATOR ? (<=6.9%) ? Indicates good control ? [...] Eloise Reeves DO CHEMISTRY Performing Organization Address City/[facility] Co de Phone Number [facility] [address] [place] [address], * FERRITIN (09/12/2023 9:30 AM COMMUNICATION COORDINATOR) FERRITIN 26.8 15.0 - 150.0 ng/mL 09/12/2023 6:43 PM COMMUNICATION COORDINATOR [facility] Blood BLOOD SPECIMEN / Unknown Venipuncture / Unknown 09/12/2023 9:30 AM COMMUNICATION COORDINATOR 09/12/2023 9:33 AM COMMUNICATION COORDINATOR Eloise Reeves DO CHEMISTRY Performing Organization Address [facility] Co de Phone Number [facility] [address] [place] [address], * (ABNORMAL) VITAMIN B12 (09/12/2023 9:30 AM COMMUNICATION COORDINATOR) VITAMIN B12 1,253(H) 232 - 1,245 pg/mL 09/12/2023 6:43 PM COMMUNICATION COORDINATOR [facility] Blood BLOOD SPECIMEN / Unknown Venipuncture / Unknown 09/12/2023 9:30 AM COMMUNICATION COORDINATOR 09/12/2023 9:33 AM COMMUNICATION COORDINATOR Narrative [facility] - 09/12/2023 6:43 PM COMMUNICATION COORDINATOR Biotin supplements may cause clinically significant interference for this test assay. ??If interference is suspected, it is strongly recommended that biotin is discontinued for at least one week prior to retesting. Eloise Reeves DO CHEMISTRY Performing Organization Address City/[facility] Co de Phone Number [facility] [address] [place] [address] [place] [address], from Last 3 Months Care Teams Container Coordinator Relationship Specialty Start Date End Date Eloise Reeves DO [address] [place] [address] PCP - General Family Practice 05/13/20
--- OUTSIDE RECORDS SUMMARY | 2023-12-11 01:30 | XMS_ITS | Encounter Summary ---
Author Name Unknown Organization [facility] Address [address] [place] [address] Phone Care Team Providers Care Wire Twisting Machine Operator Name Role Phone Eloise Reeves DO Primary Care Provider [phone] Encounter Details Date Type Department Care Team [...] Coronavirus/COVID-19? No / Unsure 11/04/2023 10:48 PM PLATE FINISHER documented as of this encounter Plan of Treatment Not on file documented as of this encounter Procedures Procedure Name Priority Date/Time Associated Diagnosis Comments TELEMETRY STRIPS 11/05/2023 9:25 AM PLATE FINISHER documented in this encounter Results * TELEMETRY STRIPS (11/05/2023 9:25 AM PLATE FINISHER) Narrative 11/05/2023 9:25 AM PLATE FINISHER Ordered by an unspecified provider. Provider Unknown RAD ECHO documented in this encounter Visit Diagnoses Not on filedocumented in this encounter Care Teams Wire Twisting Machine Operator Relationship Specialty Start Date End Date Eloise Reeves DO [address] [place] [address] PCP - General Family Medicine 11/06/23 documented as of this encounter
--- OUTSIDE RECORDS SUMMARY | 2023-12-11 01:30 | XMS_ITS | Encounter Summary ---
Author Name Unknown Organization [facility] Address [address] [place] [address] Phone Care Team Providers Care University President Name Role Phone Unavailable Primary Care Provider [...] No / Unsure 11/04/2023 10:48 PM DIRECTOR CASE MANAGEMENT documented as of this encounter Plan of Treatment Not on file documented as of this encounter Visit Diagnoses Not on filedocumented in this encounter
== END 2023-12-11 01:27 | disposition left against medical advice (07) ==
PROVIDERS: PCP Family Medicine
DX: F41.9 Anxiety disorder, unspecified (principal)

== ENCOUNTER 2023-12-12 14:41 | Emergency (ER) | payer MEDICARE, SELFPAY ==
--- NOTE | 2023-12-12 14:43 | CT_ITS ---
INDICATION Altered mental status. TECHNIQUE Routine noncontrast CT brain. COMPARISON 03/22/2022. FINDINGS There is no intracranial hemorrhage. No midline shift or extra-axial fluid collection. Mild increased prominence of the ventricular system compared to the prior study. Chronic white matter changes noted. No fracture. Clear sinuses. IMPRESSION No intracranial hemorrhage. Chronic white matter changes likely related to chronic small vessel ischemic disease. Mildly increased ventricular size likely due to some progression of cortical atrophy.
[2023-12-12 14:56] LABS: Appearance Urine Slightly Cloudy (Clear); Bilirubin Urine 2+ (Negative); Blood Urine Negative (Negative); Color Urine Yellow (Yellow); Glucose Urine Negative (Negative); Ketones Urine 1+ (Negative); Leukocyte Esterase Urine 1+ (Negative); Nitrite Urine Negative (Negative); Protein Urine 2+ (Negative); Specific Gravity Urine 1.025 (1.000-1.030); Urobilinogen Urine 0.2 (0.2-1.0); pH Urine 5.5 (5.0-8.5)
[2023-12-12 15:07] VITALS: BP 139/95; PULSE 88; RESP 16; TEMP 36.3; O2SAT 98; BMI 30.1
[2023-12-12 15:18] LABS: RBC Urine 0-2 (0-2)
[2023-12-12 15:19] LABS: Bacteria Urine Few; Squamous Epithelial Cell Urine Many (None-Few)
--- OUTSIDE RECORDS SUMMARY | 2023-12-12 16:07 | XMS_ITS | Referral Summary ---
Author Name Unknown Organization [facility] Address [address] [place] [address] Phone Care Team Providers Care Terrazzo Finisher Helper Name Role Phone Eloise Reeves Sushil BUSBY Primary Care Provider Source Comments [employer] is fully rolled out on [employer]. Last update 04/02/09.[facility] Encounters Date Type Department Care Team Description 11/27/2023 1:00 PM SOFTWARE VALIDATION ENGINEER Office [facility] [address] [address] Leidy Velazquez, PAElodiaC Mild traumatic brain injury, with loss of consciousness of 30 minutes or less, initial encounter ([facility]) (Primary Dx); Reversed sleep wake cycle; Lack of appetite Discharge Disposition: Discharged to home or self care (routine discharge) 11/04/2023 10:39 PM SOFTWARE VALIDATION ENGINEER - 11/16/2023 9:19 AM SOFTWARE VALIDATION ENGINEER Hospital Encounter [facility] Surgery/Trauma/Kimmie ro [address] [place] [address] Devin Dougherty MD Petrun, Branden, MD [place], [...] Comments Blood Pressure 108/71 11/27/2023 12:54 PM SOFTWARE VALIDATION ENGINEER Pulse 74 11/27/2023 12:54 PM SOFTWARE VALIDATION ENGINEER Temperature 36.6 ??C (97.8 ??F) 11/16/2023 4:25 AM CS T Respiratory Rate 16 11/16/2023 4:25 AM SOFTWARE VALIDATION ENGINEER Oxygen Saturation 90% 11/16/2023 4:25 AM SOFTWARE VALIDATION ENGINEER Inhaled Oxygen Concentration - - Weight 61.6 kg (135 lb 12.8 oz) 024 12:54 PM SOFTWARE VALIDATION ENGINEER Height 147.3 cm (4' 10) 11/05/2023 12: 03 AM SOFTWARE VALIDATION ENGINEER Body Mass Index 28.38 11/05/2023 12:03 AM SOFTWARE VALIDATION ENGINEER Plan of Treatment Not on file Procedures Procedure Name Priority Date/Time Associated Diagnosis Comments PANEL BASIC METABOLIC (BMP) Routine 11/16/2023 7:22 AM SOFTWARE VALIDATION ENGINEER POC GLUCOSE Routine 11/16/2023 6:58 AM SOFTWARE VALIDATION ENGINEER POC GLUCOSE Routine 11/15/2023 9:15 PM SOFTWARE VALIDATION ENGINEER POC GLUCOSE Routine 11/15/2023 4:09 PM SOFTWARE VALIDATION ENGINEER POC GLUCOSE Routine 11/15/2023 12:46 PM SOFTWARE VALIDATION ENGINEER PANEL BASIC METABOLIC (BMP) Routine 11/15/2023 7:39 AM SOFTWARE VALIDATION ENGINEER POC GLUCOSE Routine 11/15/2023 6:11 AM SOFTWARE VALIDATION ENGINEER POC GLUCOSE Routine 11/14/2023 9:02 PM SOFTWARE VALIDATION ENGINEER POC GLUCOSE Routine 11/14/2023 4:21 PM SOFTWARE VALIDATION ENGINEER POC GLUCOSE Routine 11/14/2023 12:19 PM SOFTWARE VALIDATION ENGINEER PANEL BASIC METABOLIC (BMP) Routine 11/14/2023 8:59 AM SOFTWARE VALIDATION ENGINEER POC GLUCOSE Routine 11/14/2023 8:11 AM SOFTWARE VALIDATION ENGINEER POC GLUCOSE Routine 11/13/2023 9:15 PM SOFTWARE VALIDATION ENGINEER POC GLUCOSE Routine 11/13/2023 4:03 PM SOFTWARE VALIDATION ENGINEER POC GLUCOSE Routine 11/13/2023 11:21 AM SOFTWARE VALIDATION ENGINEER PANEL BASIC METABOLIC (BMP) Routine 11/13/2023 6:41 AM SOFTWARE VALIDATION ENGINEER POC GLUCOSE Routine 11/13/2023 6:31 AM SOFTWARE VALIDATION ENGINEER POC GLUCOSE Routine 11/12/2023 9:21 PM SOFTWARE VALIDATION ENGINEER POC GLUCOSE Routine 11/12/2023 4:12 PM SOFTWARE VALIDATION ENGINEER PANEL BASIC METABOLIC (BMP) Timed 11/12/2023 1:01 PM SOFTWARE VALIDATION ENGINEER POC GLUCOSE Routine 11/12/2023 12:14 PM SOFTWARE VALIDATION ENGINEER POC GLUCOSE Routine 11/12/2023 6:09 AM SOFTWARE VALIDATION ENGINEER POC GLUCOSE Routine 11/11/2023 8:48 PM SOFTWARE VALIDATION ENGINEER POC GLUCOSE Routine 11/11/2023 4:11 PM SOFTWARE VALIDATION ENGINEER POC GLUCOSE Routine 11/11/2023 11:47 AM SOFTWARE VALIDATION ENGINEER PHOSPHORUS Routine 11/11/2023 6:09 AM SOFTWARE VALIDATION ENGINEER PANEL BASIC METABOLIC (BMP) Routine 11/11/2023 6:09 AM SOFTWARE VALIDATION ENGINEER MAGNESIUM Routine 11/11/2023 6:09 AM SOFTWARE VALIDATION ENGINEER TC LAB BLOOD DRAW BY VENIPUNCTURE Routine 11/11/2023 6:09 AM SOFTWARE VALIDATION ENGINEER POC GLUCOSE Routine 11/10/2023 8:58 PM SOFTWARE VALIDATION ENGINEER POC GLUCOSE Routine 11/10/2023 4:16 PM SOFTWARE VALIDATION ENGINEER POC GLUCOSE Routine 11/10/2023 11:15 AM SOFTWARE VALIDATION ENGINEER PHOSPHORUS Routine 11/10/2023 6:17 AM SOFTWARE VALIDATION ENGINEER PANEL BASIC METABOLIC (BMP) Routine 11/10/2023 6:17 AM SOFTWARE VALIDATION ENGINEER MAGNESIUM Routine 11/10/2023 6:17 AM SOFTWARE VALIDATION ENGINEER PC LAB CBC/PLT Routine 11/10/2023 6:17 AM SOFTWARE VALIDATION ENGINEER POC GLUCOSE Routine 11/09/2023 9:41 PM SOFTWARE VALIDATION ENGINEER POC GLUCOSE Routine 11/09/2023 3:58 PM SOFTWARE VALIDATION ENGINEER ANTI XA ASSAY LMW HEPARIN Timed 11/09/2023 2:18 PM SOFTWARE VALIDATION ENGINEER POC GLUCOSE Routine 11/09/2023 11:28 AM SOFTWARE VALIDATION ENGINEER XR FOOT RIGHT 3 V AP/OBL/LAT* Routine 11/09/2023 10:36 AM SOFTWARE VALIDATION ENGINEER TELEMETRY STRIPS 11/09/2023 8:48 AM SOFTWARE VALIDATION ENGINEER POC GLUCOSE Routine 11/09/2023 5:46 AM SOFTWARE VALIDATION ENGINEER PC VALPROIC ACID LEVEL DEPAHOTE Routine 11/09/2023 5:41 AM SOFTWARE VALIDATION ENGINEER PHOSPHORUS Routine 11/09/2023 5:41 AM SOFTWARE VALIDATION ENGINEER PANEL BASIC METABOLIC (BMP) Routine 11/09/2023 5:41 AM SOFTWARE VALIDATION ENGINEER MAGNESIUM Routine 11/09/2023 5:41 AM SOFTWARE VALIDATION ENGINEER PC LAB CBC/PLT Routine 11/09/2023 5:41 AM SOFTWARE VALIDATION ENGINEER TELEMETRY STRIPS 11/09/2023 1:21 AM SOFTWARE VALIDATION ENGINEER POC GLUCOSE Routine 11/08/2023 8:40 PM SOFTWARE VALIDATION ENGINEER TELEMETRY STRIPS 11/08/2023 7:31 PM SOFTWARE VALIDATION ENGINEER PHOSPHORUS Routine 11/08/2023 4:20 PM SOFTWARE VALIDATION ENGINEER MAGNESIUM Routine 11/08/2023 4:20 PM SOFTWARE VALIDATION ENGINEER PANEL BASIC METABOLIC (BMP) Routine 11/08/2023 4:20 PM SOFTWARE VALIDATION ENGINEER TC LAB BLOOD DRAW BY VENIPUNCTURE Routine 11/08/2023 4:20 PM SOFTWARE VALIDATION ENGINEER POC GLUCOSE Routine 11/08/2023 3:56 PM SOFTWARE VALIDATION ENGINEER POC GLUCOSE Routine 11/08/2023 11:03 AM SOFTWARE VALIDATION ENGINEER TELEMETRY STRIPS 11/08/2023 9:49 AM SOFTWARE VALIDATION ENGINEER XR CHEST 1 VIEW AP OR PA* Routine 11/08/2023 6:30 AM SOFTWARE VALIDATION ENGINEER POC GLUCOSE Routine 11/08/2023 6:22 AM SOFTWARE VALIDATION ENGINEER TELEMETRY STRIPS 11/08/2023 2:59 AM SOFTWARE VALIDATION ENGINEER POC GLUCOSE Routine 11/07/2023 9:34 PM SOFTWARE VALIDATION ENGINEER TELEMETRY STRIPS 11/07/2023 7:31 PM SOFTWARE VALIDATION ENGINEER POC GLUCOSE Routine 11/07/2023 4:06 PM SOFTWARE VALIDATION ENGINEER POC GLUCOSE Routine 11/07/2023 11:45 AM SOFTWARE VALIDATION ENGINEER XR CHEST 2 VIEWS PA + LAT* Routine 11/07/2023 10:07 AM SOFTWARE VALIDATION ENGINEER TELEMETRY STRIPS 11/07/2023 9:29 AM SOFTWARE VALIDATION ENGINEER PC PROCALCITONIN (PCT) Routine 8:34 AM SOFTWARE VALIDATION ENGINEER PC LAB CBC/PLT Routine 11/07/2023 8:34 AM SOFTWARE VALIDATION ENGINEER PANEL BASIC METABOLIC (BMP) Routine 11/07/2023 8:34 AM SOFTWARE VALIDATION ENGINEER MAGNESIUM Routine 11/07/2023 8:34 AM SOFTWARE VALIDATION ENGINEER PHOSPHORUS Routine 11/07/2023 8:34 AM SOFTWARE VALIDATION ENGINEER POC GLUCOSE Routine 11/07/2023 5:45 AM SOFTWARE VALIDATION ENGINEER TELEMETRY STRIPS 11/07/2023 1:07 AM SOFTWARE VALIDATION ENGINEER POC GLUCOSE Routine 11/06/2023 9:21 PM SOFTWARE VALIDATION ENGINEER TELEMETRY STRIPS 11/06/2023 4:28 PM SOFTWARE VALIDATION ENGINEER PC GASES,BLOOD,ANY COMB OF PH,PCD2,PO2,CO2,HCO2 Routine 11/06/2023 1:06 PM SOFTWARE VALIDATION ENGINEER MAGNESIUM Timed 11/06/2023 1:06 PM SOFTWARE VALIDATION ENGINEER PHOSPHORUS Timed 11/06/2023 1:06 PM SOFTWARE VALIDATION ENGINEER PANEL BASIC METABOLIC (BMP) Timed 11/06/2023 1:06 PM SOFTWARE VALIDATION ENGINEER PC LAB CBC/PLT Timed 11/06/2023 1:06 PM SOFTWARE VALIDATION ENGINEER POC GLUCOSE Routine 11/06/2023 1:04 PM SOFTWARE VALIDATION ENGINEER POC GLUCOSE Routine 11/06/2023 10:49 AM SOFTWARE VALIDATION ENGINEER TELEMETRY STRIPS 11/06/2023 8:49 AM SOFTWARE VALIDATION ENGINEER PC LAB GLYCOSYLATED HGB Routine 11/06/2023 6:31 AM SOFTWARE VALIDATION ENGINEER PROTHROMBIN (PT) & INR Timed 6:31 AM SOFTWARE VALIDATION ENGINEER PC PHOSPHORUS INORGANIC(PHOSPHATE) Routine 11/06/2023 6:31 AM SOFTWARE VALIDATION ENGINEER PC MAGNESIUM, SERUM Routine 11/06/2023 6 :31 AM SOFTWARE VALIDATION ENGINEER PC LAB CBC/PLT Routine 11/06/2023 6:31 AM SOFTWARE VALIDATION ENGINEER TC LAB BLOOD DRAW BY VENIPUNCTURE Routine 11/06/2023 6:31 AM SOFTWARE VALIDATION ENGINEER POC GLUCOSE Routine 11/06/2023 5:39 AM SOFTWARE VALIDATION ENGINEER TELEMETRY STRIPS 11/06/2023 1:52 AM SOFTWARE VALIDATION ENGINEER POC GLUCOSE Routine 11/05/2023 4:54 PM SOFTWARE VALIDATION ENGINEER MAGNESIUM Routine 11/05/2023 4:48 PM SOFTWARE VALIDATION ENGINEER POTASSIUM Routine 11/05/2023 4:48 [address] HEAD NO IV CONTRAST Timed 11:44 AM SOFTWARE VALIDATION ENGINEER POC GLUCOSE Routine 11/05/2023 11:11 AM SOFTWARE VALIDATION ENGINEER TELEMETRY STRIPS 11/05/2023 9:25 AM SOFTWARE VALIDATION ENGINEER EKG ADULT (12-LEAD) Routine 11/05/2023 6 :38 AM SOFTWARE VALIDATION ENGINEER POC GLUCOSE Routine 11/05/2023 6:07 AM [address] VALIDATION [address] HEAD NO IV CONTRAST Timed 4:54 AM SOFTWARE VALIDATION ENGINEER PROTHROMBIN (PT) & INR Timed 4:27 AM SOFTWARE VALIDATION ENGINEER PC PHOSPHORUS INORGANIC(PHOSPHATE) Routine 11/05/2023 4:27 AM SOFTWARE VALIDATION ENGINEER PC MAGNESIUM, SERUM Routine 11/05/2023 4 :27 AM SOFTWARE VALIDATION ENGINEER PC GASES,BLOOD,ANY COMB OF PH,PCD2,PO2,CO2,HCO2 Routine 11/05/2023 4:27 AM SOFTWARE VALIDATION ENGINEER PC LAB CBC/PLT Routine 11/05/2023 4:27 AM SOFTWARE VALIDATION ENGINEER TC LAB BLOOD DRAW BY VENIPUNCTURE Routine 11/05/2023 4:27 AM SOFTWARE VALIDATION ENGINEER PC TROPONIN QUANTITATIVE Timed 11/05/2023 4:27 AM SOFTWARE VALIDATION ENGINEER PC TROPONIN QUANTITATIVE Timed 11/05/2023 2:58 AM SOFTWARE VALIDATION ENGINEER CK, TOTAL STAT 11/05/2023 1:32 AM SOFTWARE VALIDATION ENGINEER FIBRINOGEN STAT 11/05/2023 1:32 AM SOFTWARE VALIDATION ENGINEER PC LAB PTT STAT 11/05/2023 1:32 AM SOFTWARE VALIDATION ENGINEER PANEL HEPATIC FUNCTION STAT 1:32 AM SOFTWARE VALIDATION ENGINEER PC LAB CBC/PLT STAT 11/05/2023 1:32 AM SOFTWARE VALIDATION ENGINEER PANEL BASIC METABOLIC (BMP) STAT 11/05/2023 1:32 AM SOFTWARE VALIDATION ENGINEER MAGNESIUM STAT 11/05/2023 1:32 AM SOFTWARE VALIDATION ENGINEER PHOSPHORUS STAT 11/05/2023 1:32 AM SOFTWARE VALIDATION ENGINEER PROTHROMBIN (PT) & INR STAT 1:32 AM SOFTWARE VALIDATION ENGINEER PC IONIZED,CALCIUM STAT 11/05/2023 1: 18 AM SOFTWARE VALIDATION ENGINEER PC LACTATE (LACTIC ACID) STAT 11/05/2023 1:18 AM SOFTWARE VALIDATION ENGINEER PC GASES,BLOOD,ANY COMB OF PH,PCD2,PO2,CO2,HCO2 STAT 11/05/2023 1:18 AM SOFTWARE VALIDATION ENGINEER PC TROPONIN QUANTITATIVE Timed 11/05/2023 1:18 [address] HEAD-NECK - ANGIO - W/IV CON STAT 11/05/2023 12:09 AM SOFTWARE VALIDATION ENGINEER PC LAB COMPLETE UA STAT 11/04/2023 11 :55 PM SOFTWARE VALIDATION ENGINEER PF INSERT CATH,ART,PERCUT,SANTA ERM Routine 11/04/2023 11:43 PM SOFTWARE VALIDATION ENGINEER ED EKG (12-LEAD) Routine 11/04/2023 11:2 [address] SPINE LUMBAR NO IV CON STAT 11/04/2023 11:05 [address] SPINE THORACIC NO IV CON STAT 11/04/2023 11:05 PM SOFTWARE VALIDATION [address] CHEST/ABD/PELVIS W/IV CONT STAT 11/04/2023 11:05 PM SOFTWARE VALIDATION [address] SPINE CERVICAL NO IV CON STAT 11/04/2023 11:05 PM SOFTWARE VALIDATION [address] CT HEAD NO IV CONTRAST STAT 11:05 PM SOFTWARE VALIDATION ENGINEER XR CHEST 1 VIEW AP OR PA* STAT 11/04/2023 10:57 PM SOFTWARE VALIDATION ENGINEER TC LAB ER STAT TOTAL HGB STAT 11/04/2023 10:48 PM SOFTWARE VALIDATION ENGINEER PC ELECTROLYTES PANEL STAT 11/04/2023 10:48 PM SOFTWARE VALIDATION ENGINEER PC HEPARIN ASSAY STAT 11/04/2023 10:4 5 PM SOFTWARE VALIDATION ENGINEER EXTRA TUBE - SST Routine 11/04/2023 10:4 5 PM SOFTWARE VALIDATION ENGINEER TC LAB BLOOD DRAW BY VENIPUNCTURE Routine 11/04/2023 10:45 PM SOFTWARE VALIDATION ENGINEER PC TROPONIN QUANTITATIVE STAT 11/04/2023 10:45 PM SOFTWARE VALIDATION ENGINEER PC LAB PTT STAT 11/04/2023 10:45 PM SOFTWARE VALIDATION ENGINEER PC LAB ED INR STAT 11/04/2023 10:45 PM SOFTWARE VALIDATION ENGINEER PRECAUTIONARY TUBE STAT 11/04/2023 10 :45 PM SOFTWARE VALIDATION ENGINEER PC LACTATE (LACTIC ACID) STAT 11/04/2023 10:45 PM SOFTWARE VALIDATION ENGINEER FIBRINOGEN STAT 11/04/2023 10:45 PM SOFTWARE VALIDATION ENGINEER PC LAB CBC W/DIFF & PLT STAT 11/04/2023 10:45 PM SOFTWARE VALIDATION ENGINEER PC GASES,BLOOD,ANY COMB OF PH,PCD2,PO2,CO2,HCO2 STAT 11/04/2023 10:45 PM SOFTWARE VALIDATION ENGINEER ED US CRITICAL CARE STAT 11/04/2023 1 0:40 PM SOFTWARE VALIDATION ENGINEER PANEL LIPID Routine 10/10/2021 11:08 AM SOFTWARE VALIDATION ENGINEER from Last 3 Months or Most Recently Relevant to Health Maintenance Results * (ABNORMAL) PANEL BASIC METABOLIC (BMP) (11/16/2023 7:22 AM SOFTWARE VALIDATION ENGINEER) Only the most recent of12 resultswithin the time period is included. Sodium 143 135 - 148 mEq/L [facility] [...] area of 1.73m^2. Blood 11/16/2023 7:22 AM SOFTWARE VALIDATION ENGINEER 11/16/2023 7:43 AM SOFTWARE VALIDATION ENGINEER Jesusita Aiken APRN, CNP LABORATO RY [facility] [address] [address] * POC GLUCOSE (11/16/2023 6:58 AM SOFTWARE VALIDATION ENGINEER) Only the most recent of42 resultswithin the time period is included. POC Glucose 84 70 - 100 mg/dL [facility] [place] - POINT OF CARE Blood 11/16/2023 6:58 AM SOFTWARE VALIDATION ENGINEER Devin Dougherty MD LABORATORY [facility] - [facility]INT OF CARE [address] [place] [id number], * PHOSPHORUS (11/11/2023 6:09 AM SOFTWARE VALIDATION ENGINEER) Only the most recent of7 resultswithin the time period is included. Phosphorus 3.5 2.5 - 4.5 mg/dL [facility] Blood 11/11/2023 6:09 AM SOFTWARE VALIDATION ENGINEER 11/11/2023 6:36 AM SOFTWARE VALIDATION ENGINEER Quinn Covarrubias MD LABORATORY Performing Organization Address City/[facility]/ZIP Co de Phone Number [facility] [address] [address] * MAGNESIUM (11/11/2023 6:09 AM SOFTWARE VALIDATION ENGINEER) Only the most recent of8 resultswithin the time period is included. Pathologist [facility] [place] Magnesium 2.2 1.6 - 2.4 mg/dL [facility] Blood 11/11/2023 6:09 AM SOFTWARE VALIDATION ENGINEER 11/11/2023 6:36 AM SOFTWARE VALIDATION ENGINEER Quinn Covarrubias MD LABORATORY Performing Organization Address City/[facility] [[email or web address]] Co de Phone Number [facility] [address] [address] * (ABNORMAL) CBC WITH PLATELET (11/11/2023 6:09 AM SOFTWARE VALIDATION ENGINEER) Only the most recent of7 resultswithin the time period is included. Pathologist [facility] [place] WBC 5.60 4.00 - 10.00 k/cmm [facility] [...] [facility] Blood 11/11/2023 6:09 AM SOFTWARE VALIDATION ENGINEER 11/11/2023 6:36 AM SOFTWARE VALIDATION ENGINEER Quinn Covarrubias MD LABORATORY Performing Organization Address City/[facility]/ZIP Co de Phone Number [address] [address] * ANTI XA ASSAY LMW HEPARIN (11/09/2023 2:18 PM SOFTWARE VALIDATION ENGINEER) Anti XA LMW 0.32 IU/mL [facility] Comment: Anti Xa Assay LMW Heparin Therapeutic Ranges: 0.4-1.1 IU/mL for twice daily 1.0-2.0 IU/mL for once daily Blood 11/09/2023 2:18 PM SOFTWARE VALIDATION ENGINEER 11/09/2023 2:29 PM SOFTWARE VALIDATION ENGINEER Quinn Covarrubias MD LABORATORY Performing Organization Address [facility] [[email or web address]] Co de Phone Number [address] [address] * XR FOOT RIGHT 3 V AP/OBL/LAT* (11/09/2023 10:36 AM SOFTWARE VALIDATION ENGINEER) Anatomical Region Laterality Modality Foot Computed Radiogr aphy 11/09/2023 10:4 7 AM SOFTWARE VALIDATION ENGINEER Impressions 11/09/2023 10:50 AM SOFTWARE VALIDATION ENGINEER Impression: No acute osseous abnormality. Generalized osteopenia. Reading Radiologist: Angela Camp Narrative 11/09/2023 10:50 AM SOFTWARE VALIDATION ENGINEER Technique: XR FOOT RIGHT 3 V [...] osteopenia. Reading Radiologist: Angela Camp Jesusita Larawuyoh PLANNING ASSISTANT, WASTE TREATMENT OPERATOR RAD XRAY * TELEMETRY STRIPS (11/09/2023 8:48 AM SOFTWARE VALIDATION ENGINEER) Only the most recent of12 resultswithin the time period is included. Narrative 11/09/2023 8:48 AM SOFTWARE VALIDATION ENGINEER Ordered by an unspecified provider. Provider Unknown RAD ECHO * (ABNORMAL) VALPROATE (DEPAKOTE) LEVEL (11/09/2023 5:41 AM SOFTWARE VALIDATION ENGINEER) Valproate 31.8(L) 50.0 - 100.0 mcg/mL [facility] Blood 11/09/2023 5:41 AM SOFTWARE VALIDATION ENGINEER 11/09/2023 8:19 AM SOFTWARE VALIDATION ENGINEER Quinn Covarrubias MD LABORATORY [facility] [address] [address] * XR CHEST 1 VIEW AP OR PA* (11/08/2023 6:30 AM SOFTWARE VALIDATION ENGINEER) Only the most recent of2 resultswithin the time period is included. Anatomical Region Laterality Modality Chest Computed Radiogr aphy 11/08/2023 6:56 AM SOFTWARE VALIDATION ENGINEER Impressions 11/08/2023 7:24 AM SOFTWARE VALIDATION ENGINEER Impression: Stable chest. I have personally reviewed the image(s) and initial interpretation, and I agree with the findings as documented by the resident/fellow. Reading Radiologist: Ronal Hidalgo Reading Resident: Laith Berkowitz Narrative 11/08/2023 7:24 AM SOFTWARE VALIDATION ENGINEER Technique: XR CHEST 1 VIEW AP [...] VIEWS PA + LAT* (11/07/2023 10:07 AM SOFTWARE VALIDATION ENGINEER) Anatomical Region Laterality Modality Chest Computed Radiogr aphy 11/07/2023 10:0 9 AM SOFTWARE VALIDATION ENGINEER Impressions 11/07/2023 10:10 AM SOFTWARE VALIDATION ENGINEER Impression: New left basilar opacities with small effusion concerning for developing infection. Reading Radiologist: Phil Contreras Narrative 11/07/2023 10:10 AM SOFTWARE VALIDATION ENGINEER Technique: XR CHEST 2 VIEWS PA [...] RAD XRAY * PROCALCITONIN (11/07/2023 8:34 AM SOFTWARE VALIDATION ENGINEER) Procalcitonin 0.12 ng/mL [facility] Comment: Results <0.50 ng/mL represent a low risk of severe sepsis and/or septic shock. Results >2.0 ng/mL represent a high risk of severe sepsis and/or septic shock. Blood 11/07/2023 8:34 AM SOFTWARE VALIDATION ENGINEER 11/07/2023 8:40 AM SOFTWARE VALIDATION ENGINEER Quinn Covarrubias MD LABORATORY [facility] [address] [address] * (ABNORMAL) BLOOD GASES (11/06/2023 1:06 PM SOFTWARE VALIDATION ENGINEER) Only the most recent of3 resultswithin the time period is included. PH Jalen 7.36 7.32 - 7.42 [facility] PCO2 Jalen 48 41 - 51 mmHG [facility] Blood Venous 11/06/2023 1:06 PM SOFTWARE VALIDATION ENGINEER 11/06/2023 1:10 PM SOFTWARE VALIDATION ENGINEER Narrative [facility] - 11/06/2023 1:16 PM SOFTWARE VALIDATION ENGINEER Draw on Room Air: No O2 LPM (liter/min) Level->4 via mask FiO2 Level: 100 Quinn Covarrubias MD LABORATORY Performing Organization Address City/[facility]/ZIP Co de Phone Number [facility] [address] [address] * (ABNORMAL) ICU MAGNESIUM (11/06/2023 6:31 AM SOFTWARE VALIDATION ENGINEER) Only the most recent of2 resultswithin the time period is included. Magnesium 2.5(H) 1.6 - 2.4 mg/dL [facility] Blood 11/06/2023 6:31 AM SOFTWARE VALIDATION ENGINEER 11/06/2023 7:37 AM SOFTWARE VALIDATION ENGINEER Devin Dougherty MD LABORATORY Performing Organization Address City/[facility]/ZIP Co de Phone Number [facility] [address] [address] * ICU PHOSPHORUS (11/06/2023 6:31 AM SOFTWARE VALIDATION ENGINEER) Only the most recent of2 resultswithin the time period is included. Phosphorus 4.1 2.5 - 4.5 mg/dL [facility] Blood 11/06/2023 6:31 AM SOFTWARE VALIDATION ENGINEER 11/06/2023 7:37 AM SOFTWARE VALIDATION ENGINEER Devin Dougherty MD LABORATORY [facility] [address] [address] * (ABNORMAL) ICU CBC WITH PLATELET (11/06/2023 6:31 AM SOFTWARE VALIDATION ENGINEER) Only the most recent of2 resultswithin the time period is included. WBC 9.06 4.00 - 10.00 k/cmm [facility] [...] [facility] Blood 11/06/2023 6:31 AM SOFTWARE VALIDATION ENGINEER 11/06/2023 7:37 AM SOFTWARE VALIDATION ENGINEER Devin Dougherty MD LABORATORY Performing Organization Address City/[facility] [[email or web address]] Co de Phone Number [facility] [address] [address] * (ABNORMAL) ICU PANEL BASIC METABOLIC (BMP) (11/06/2023 6:31 AM SOFTWARE VALIDATION ENGINEER) Only the most recent of2 resultswithin the time period is included. Sodium 142 135 - 148 mEq/L [facility] [...] area of 1.73m^2. Blood 11/06/2023 6:31 AM SOFTWARE VALIDATION ENGINEER 11/06/2023 7:37 AM SOFTWARE VALIDATION ENGINEER Devin Dougherty MD LABORATORY Performing Organization Address [facility] [[email or web address]] Co de Phone Number [facility] [address] [address] * PROTHROMBIN (PT) & INR (11/06/2023 6:31 AM SOFTWARE VALIDATION ENGINEER) Only the most recent of3 resultswithin the time period is included. PT 11.4 9.0 - 12.5 sec [facility] INR 1.0 0.8 - 1.1 [facility] Comment: Warfarin Therapeutic Range: Standard Intensity: 2.0 - 3.0 High Intensity: 2.5 - 3.5 Blood 11/06/2023 6:31 AM SOFTWARE VALIDATION ENGINEER 11/06/2023 7:37 AM SOFTWARE VALIDATION ENGINEER Quinn Covarrubias MD LABORATORY Performing Organization Address [facility] [[email or web address]] Co de Phone Number [facility] [address] [address] * (ABNORMAL) GLYCOSYLATED HGB - A1C (11/06/2023 6:31 AM SOFTWARE VALIDATION ENGINEER) Hemoglobin A1C 8.1(H) 4.0 - 5.6 [...] a fasting glucose. Blood 11/06/2023 6:31 AM SOFTWARE VALIDATION ENGINEER 11/06/2023 11:28 AM SOFTWARE VALIDATION ENGINEER Quinn Covarrubias MD LABORATORY Performing Organization Address City/[facility] [[email or web address]] Co de Phone Number [address] [address] * (ABNORMAL) POTASSIUM (11/05/2023 4:48 PM SOFTWARE VALIDATION ENGINEER) Potassium 3.2(L) 3.5 - 5.3 mEq/L [facility] Blood 11/05/2023 4:48 PM SOFTWARE VALIDATION ENGINEER 11/05/2023 4:58 PM SOFTWARE VALIDATION ENGINEER Quinn Covarrubias MD LABORATORY Performing Organization Address [facility] [[email or web address]] Co de Phone Number [address] [address] * CT HEAD NO IV CONTRAST (11/05/2023 11:44 AM SOFTWARE VALIDATION ENGINEER) Only the most recent of3 resultswithin the time period is included. Anatomical Region Laterality Modality Skull Computed Tomogra phy 11/05/2023 12:1 6 PM SOFTWARE VALIDATION ENGINEER Impressions 11/05/2023 12:38 PM SOFTWARE VALIDATION ENGINEER Impression: Stable head CT as compared to the study performed 7 hours earlier. Intra-axial and extra-axial hemorrhage(s) without midline shift or hydrocephalus. The basal cisterns are patent. Reading Radiologist: Ford Fernández 11/05/2023 12:38 PM SOFTWARE VALIDATION ENGINEER Exam: Head CT without contrast, 11/05/2023 [...] * EKG ADULT (12-LEAD) (11/05/2023 6:38 AM SOFTWARE VALIDATION ENGINEER) 11/05/2023 6:38 AM SOFTWARE VALIDATION ENGINEER Impressions [facility] CVIS EKG ORDERS - 11/05/2023 6:38 AM SOFTWARE VALIDATION ENGINEER SINUS RHYTHM RIGHT BUNDLE BRANCH BLOCK ??[120+ ms QRS DURATION, UPRIGHT V1, 40+ ms S IN I/aVL/V4/V5/V6] ABNORMAL ECG P-R Interval 151 ms QRS Interval 128 ms QT Interval 420 ms QTC Interval 462 ms P Flushing 9 QRS Flushing 27 T Wave Flushing 70 Narrative Procedure Note Lauren Mills MD - 11/06/2023 IMPRESSION SINUS RHYTHM RIGHT BUNDLE BRANCH BLOCK [120+ ms QRS DURATION, UPRIGHT V1, 40+ ms S INI/aVL/V4/V5/V6] ABNORMAL ECG P-R Interval 151 ms QRS Interval 128 ms QT Interval 420 ms QTC Interval 462 ms P Flushing 9 QRS Flushing 27 T Wave Flushing 70 Quinn Covarrubias MD EKG [facility] EKG ORDERS * (ABNORMAL) ICU BLOOD GAS (11/05/2023 4:27 AM SOFTWARE VALIDATION ENGINEER) PH Art 7.38 7.35 - 7.45 [facility] [...] LAB Blood Arterial 11/05/2023 4: 27 AM SOFTWARE VALIDATION ENGINEER 11/05/2023 4:34 AM SOFTWARE VALIDATION ENGINEER Devin Dougherty MD LABORATORY Performing Organization Address [facility] [[email or web address]] Co de Phone Number [facility] [address] [address] * (ABNORMAL) TROP 6H (11/05/2023 4:27 AM SOFTWARE VALIDATION ENGINEER) 6H Trop 51(H) <=14 ng/L [facility] 6H Delta Significan t(A) Not Significant [facility] Blood 11/05/2023 4:27 AM SOFTWARE VALIDATION ENGINEER 11/05/2023 4:35 AM SOFTWARE VALIDATION ENGINEER Devin Dougherty MD LABORATORY Performing Organization Address [facility] [[email or web address]] Co de Phone Number [facility] [address] [address] * (ABNORMAL) TROP 4H (11/05/2023 2:58 AM SOFTWARE VALIDATION ENGINEER) 4H Trop 39(H) <=14 ng/L [facility] 4H Delta Significan t(A) Not Significant [facility] Blood 11/05/2023 2:58 AM SOFTWARE VALIDATION ENGINEER 11/05/2023 3:48 AM SOFTWARE VALIDATION ENGINEER Devin Dougherty MD LABORATORY Performing Organization Address [facility] [[email or web address]] Co de Phone Number [facility] [address] [address] * (ABNORMAL) PANEL HEPATIC FUNCTION (11/05/2023 1:32 AM SOFTWARE VALIDATION ENGINEER) Alk Phos 111(H) 35 - 104 [...] due to lipemia. Blood 11/05/2023 1:32 AM SOFTWARE VALIDATION ENGINEER 11/05/2023 1:32 AM SOFTWARE VALIDATION ENGINEER Devin Dougherty MD LABORATORY Performing Organization Address City/[facility]/ZIP Co de Phone Number [facility] [address] [address] * FIBRINOGEN (11/05/2023 1:32 AM SOFTWARE VALIDATION ENGINEER) Only the most recent of2 resultswithin the time period is included. Fibrinogen 262 200 - 400 mg/dL [facility] Blood 11/05/2023 1:32 AM SOFTWARE VALIDATION ENGINEER 11/05/2023 1:32 AM SOFTWARE VALIDATION ENGINEER Devin Dougherty MD LABORATORY Performing Organization Address [facility] [[email or web address]] Co de Phone Number [facility] [address] [address] * CK, TOTAL (11/05/2023 1:32 AM SOFTWARE VALIDATION ENGINEER) CK 56 26 - 192 IU/L [facility] Blood 11/05/2023 1:32 AM SOFTWARE VALIDATION ENGINEER 11/05/2023 1:32 AM SOFTWARE VALIDATION ENGINEER Devin Dougherty MD LABORATORY Performing Organization Address [facility] [[email or web address]] Co de Phone Number [facility] [address] [address] * PTT (APTT) (11/05/2023 1:32 AM SOFTWARE VALIDATION ENGINEER) Only the most recent of2 resultswithin the time period is included. APTT 26.0 25.0 - 37.0 sec [facility] Blood 11/05/2023 1:32 AM SOFTWARE VALIDATION ENGINEER 11/05/2023 1:32 AM SOFTWARE VALIDATION ENGINEER Devin Dougherty MD LABORATORY Performing Organization Address [facility] [[email or web address]] Co de Phone Number [facility] [address] [address] * (ABNORMAL) TROP 2H (11/05/2023 1:18 AM SOFTWARE VALIDATION ENGINEER) 2H Trop 18(H) <=14 ng/L [facility] 2H Delta Indeterminate Not Significant [facility] Blood 11/05/2023 1:18 AM SOFTWARE VALIDATION ENGINEER 11/05/2023 1:45 AM SOFTWARE VALIDATION ENGINEER Devin Dougherty MD LABORATORY Performing Organization Address [facility] de Phone Number [facility] [address] [address] * LACTATE (LACTIC ACID) (11/05/2023 1:18 AM SOFTWARE VALIDATION ENGINEER) Only the most recent of2 resultswithin the time period is included. Lactate 1.9 0.7 - 2.1 mmol/L [facility] Blood 11/05/2023 1:18 AM SOFTWARE VALIDATION ENGINEER 11/05/2023 1:27 AM SOFTWARE VALIDATION ENGINEER Narrative [facility] - 11/05/2023 1:45 AM SOFTWARE VALIDATION ENGINEER Send specimen on ice! Devin Dougherty MD LABORATORY Performing Organization Address [facility] de Phone Number [facility] [address] [address] * CALCIUM,IONIZED (11/05/2023 1:18 AM SOFTWARE VALIDATION ENGINEER) PH 7.37 7.32 - 7.42 [facility] ICA, Actual 4.82 4.40 - 5.20 mg/dL [facility] ICA, pH Corrected 4.75 4.40 - 5.20 mg/dL [facility] Blood 11/05/2023 1:18 AM SOFTWARE VALIDATION ENGINEER 11/05/2023 1:27 AM SOFTWARE VALIDATION ENGINEER Narrative [facility] - 11/05/2023 1:44 AM SOFTWARE VALIDATION ENGINEER Send specimen on ice! Devin Dougherty MD LABORATORY [facility] [address] [place] [address] * CT HEAD-NECK - ANGIO - W/IV CON (11/05/2023 12:09 AM SOFTWARE VALIDATION ENGINEER) Anatomical Region Laterality Modality Skull Computed Tomogra phy 11/05/2023 12:2 1 AM SOFTWARE VALIDATION ENGINEER Impressions 11/05/2023 10:22 AM SOFTWARE VALIDATION ENGINEER Impression: ?? Slightly increased size of [...] Fernández Resident: Laith Berkowitz 11/05/2023 10:22 AM SOFTWARE VALIDATION ENGINEER CT angiogram of the Head with [...] and reviewed by the Radiologist using the [email or web address] workstation, and these images were archived in [...] and reviewed by the Radiologist using the [email or web address] workstation,and these images were archived in the [...] NEURO * (ABNORMAL) URINALYSIS,TOTAL (11/04/2023 11:55 PM SOFTWARE VALIDATION ENGINEER) Color COLORLESS YELLOW [facility] Appearance CLEAR CLEAR [facility] Urine Glucose 100(A) NEGATIVE mg/dL [facility] Bili UA NEGATIVE NEGATIVE [facility] Ketones NEGATIVE NEGATIVE [facility] Specific [place] 1.036(A) 1.003 - 1.030 [facility] Urinalysis Performed at: [facility] Urine 11/04/2023 11:5 5 PM SOFTWARE VALIDATION ENGINEER 11/05/2023 12:03 AM SOFTWARE VALIDATION ENGINEER Devin Dougherty MD LABORATORY [facility] [address] [place] [address] * PF INSERT CATH,ART,PERCUT,SHORTTERM (11/04/2023 11:43 PM SOFTWARE VALIDATION ENGINEER) Narrative Rito Graf MD - 11/04/2023 11:43 PM SOFTWARE VALIDATION ENGINEER Priscilla Holcomb MD ? 11/04/2023 11:44 PM Arterial Line Performed by: Priscilla Holcomb MD Authorized by: Rito Graf MD ?? Consent: ??Consent obtained: ??Verbal ??Consent given by: ??Patient ??Risks discussed: ??Pain, bleeding and infection [place] protocol: ??Patient identity confirmed: ??Verbally with patient, [...] * ED EKG (12-LEAD) (11/04/2023 11:25 PM SOFTWARE VALIDATION ENGINEER) 11/04/2023 11:2 5 PM SOFTWARE VALIDATION ENGINEER Impressions [facility] EKG ORDERS - 11/04/2023 11:25 PM SOFTWARE VALIDATION ENGINEER SINUS TACHYCARDIA RIGHT BUNDLE BRANCH BLOCK ??[120+ ms QRS DURATION, UPRIGHT V1, 40+ ms S IN I/aVL/V4/V5/V6] ABNORMAL ECG P-R Interval 173 ms QRS Interval 127 ms QT Interval 395 ms QTC Interval 458 ms P Flushing 57 QRS Flushing 34 T Wave Flushing 43 Narrative Procedure Note Vineet Díaz MD - 11/05/2023 IMPRESSION SINUS TACHYCARDIA RIGHT BUNDLE BRANCH BLOCK [120+ ms QRS DURATION, UPRIGHT V1, 40+ ms S INI/aVL/V4/V5/V6] ABNORMAL ECG P-R Interval 173 ms QRS Interval 127 ms QT Interval 395 ms QTC Interval 458 ms P Flushing 57 QRS Flushing 34 T Wave Flushing 43 Devin Dougherty MD EKG [facility] EKG ORDERS * CT SPINE THORACIC NO IV CON (11/04/2023 11:05 PM SOFTWARE VALIDATION ENGINEER) Anatomical Region Laterality Modality Thoracic Spine Computed Tomogra phy 11/04/2023 11:2 3 PM SOFTWARE VALIDATION ENGINEER Impressions 11/05/2023 9:22 AM SOFTWARE VALIDATION ENGINEER Impression: 1. No suspected acute fracture or dislocation of the thoracic or lumbar spine. ?? 2. Ffhy-ms-yovtodal lumbar spondylosis without suspected high-grade spinal canal or neural foraminal narrowing. I have personally reviewed the image(s) and initial interpretation, and I agree with the findings as documented by the resident/fellow. Reading Radiologist: Ford Fernández Reading Resident: Laith Berkowitz Narrative 11/05/2023 9:22 AM SOFTWARE VALIDATION ENGINEER Exam: Thoracic and Lumbar Spine CT [...] dislocation of the thoracic or lumbarspine. 2. Eday-zo-bwvmisic lumbar spondylosis without suspected high-grade spinalcanal or neural foraminal narrowing. I have personally reviewed the image(s) and initial interpretation, and Iagree with the findings as documented by the resident/fellow. Reading Radiologist: Ford Fernández Resident: Laith Berkowitz Devin Dougherty MD RAD CT NEURO * CT SPINE LUMBAR NO IV CON (11/04/2023 11:05 PM SOFTWARE VALIDATION ENGINEER) Anatomical Region Laterality Modality Lumbar Spine Computed Tomogra phy 11/04/2023 11:2 3 PM SOFTWARE VALIDATION ENGINEER Impressions 11/05/2023 9:22 AM SOFTWARE VALIDATION ENGINEER Impression: 1. No suspected acute fracture or dislocation of the thoracic or lumbar spine. ?? 2. Ukyy-ih-tossvrar lumbar spondylosis without suspected high-grade spinal canal or neural foraminal narrowing. I have personally reviewed the image(s) and initial interpretation, and I agree with the findings as documented by the resident/fellow. Reading Radiologist: Ford Fernández Resident: Laith Berkowitz Narrative 11/05/2023 9:22 AM SOFTWARE VALIDATION ENGINEER Exam: Thoracic and Lumbar Spine CT [...] dislocation of the thoracic or lumbarspine. 2. Kzce-rr-zskcsbpx lumbar spondylosis without suspected high-grade spinalcanal or neural foraminal narrowing. I have personally reviewed the image(s) and initial interpretation, and Iagree with the findings as documented by the resident/fellow. Reading Radiologist: Ford Fernández Reading Resident: Laith Berkowitz Devin Dougherty MD RAD CT NEURO * CT SPINE CERVICAL NO IV CON (11/04/2023 11:05 PM SOFTWARE VALIDATION ENGINEER) Anatomical Region Laterality Modality Cervical Spine Computed Tomogra phy 11/04/2023 11:2 0 PM SOFTWARE VALIDATION ENGINEER Impressions 11/05/2023 8:27 AM SOFTWARE VALIDATION ENGINEER Impression: ?? 1. No acute fracture or traumatic subluxation of the cervical vertebrae. 2. Mild degenerative changes of the cervical spine without high-grade spinal canal or neural foraminal narrowing. I have personally reviewed the image(s) and initial interpretation, and I agree with the findings as documented by the resident/fellow. Reading Radiologist: Ford Fernández Reading Resident: Laith Berkowitz 11/05/2023 8:27 AM SOFTWARE VALIDATION ENGINEER Exam: Cervical spine CT without contrast, [...] spinal canal narrowing. C5-6: Mild left and vkeh-zm-pucbqtto right neural foraminal narrowing. Borderline mild spinal [...] spinal canal narrowing. C5-6: Mild left and hikc-zh-pbhwkqzf right neural foraminal narrowing.Borderline mild spinal canal [...] CT CHEST/ABD/PELVIS W/IV CONT (11/04/2023 11:05 PM SOFTWARE VALIDATION ENGINEER) Anatomical Region Laterality Modality Chest Computed Tomogra phy 11/04/2023 11:2 9 PM SOFTWARE VALIDATION ENGINEER Impressions 11/05/2023 6:33 AM SOFTWARE VALIDATION ENGINEER Impression: 1. No acute traumatic sequelae [...] Reading Resident: Laith Berkowitz 11/05/2023 6:33 AM SOFTWARE VALIDATION ENGINEER Comparison: None Indication: Trauma (STAB) ?? [...] ED CHEMISTRY LABS(NA,K,CL,CO2,GLU,CREAT,CA-IONIZED,ANION GAP) (11/04/2023 10:48 PM SOFTWARE VALIDATION ENGINEER) Sodium 144 135 - 148 mEq/L [facility] [...] Result Low Blood 11/04/2023 10:4 8 PM SOFTWARE VALIDATION ENGINEER 11/04/2023 10:49 PM SOFTWARE VALIDATION ENGINEER Narrative [facility] - 11/04/2023 10:55 PM SOFTWARE VALIDATION ENGINEER Critical value for Potassium called to and read back by Rafa Hutchins RN in ??EDSTAB 2 at 11/04/2023 22:55:31 SOFTWARE VALIDATION ENGINEER by Eleni Spring MLS. Devin Dougherty MD LABORATORY Performing Organization Address [facility] [[email or web address]] Co de Phone Number [address] [address] * (ABNORMAL) ED HEMOGLOBIN TOTAL (ED ONLY) (11/04/2023 10:48 PM SOFTWARE VALIDATION ENGINEER) Hgb 10.3(L) 11.5 - 15.7 g/dL [facility] Blood 11/04/2023 10:4 8 PM SOFTWARE VALIDATION ENGINEER 11/04/2023 10:49 PM SOFTWARE VALIDATION ENGINEER Devin Dougherty MD LABORATORY Performing Organization Address [facility] [[email or web address]] Co de Phone Number [address] [address] * ED INR (11/04/2023 10:45 PM SOFTWARE VALIDATION ENGINEER) ED INR 1.0 0.8 - 1.1 [facility] Comment: Warfarin Therapeutic Range: Standard Intensity: 2.0 - 3.0 High Intensity: 2.5 - 3.5 Blood 11/04/2023 10:4 5 PM SOFTWARE VALIDATION ENGINEER 11/04/2023 10:48 PM SOFTWARE VALIDATION ENGINEER Devin Dougherty MD LABORATORY Performing Organization Address [facility] [[email or web address]] Co de Phone Number [facility] [address] [address] * EXTRA TUBE - LIGHT GREEN (11/04/2023 10:45 PM SOFTWARE VALIDATION ENGINEER) LIGHT GREEN TUBE Stored [facility] Comment:Green tubes ([place] Heparin) are stored in the lab for 3 days from the collection date. Blood 11/04/2023 10:4 5 PM SOFTWARE VALIDATION ENGINEER 11/04/2023 10:50 PM SOFTWARE VALIDATION ENGINEER Devin Dougherty MD LABORATORY Performing Organization Address [facility] [[email or web address]] Co de Phone Number [facility] [address] [address] * EXTRA TUBE - SST (11/04/2023 10:45 PM SOFTWARE VALIDATION ENGINEER) SST TUBE Stored [facility] Comment:SST tubes (Serum Sep arator) are stored in the lab for 3 days from the collection date. Blood 11/04/2023 10:4 5 PM SOFTWARE VALIDATION ENGINEER 11/04/2023 10:50 PM SOFTWARE VALIDATION ENGINEER Devin Dougherty MD LABORATORY Performing Organization Address [facility] [[email or web address]] Co de Phone Number [facility] [address] [address] * HS TROPONIN (11/04/2023 10:45 PM SOFTWARE VALIDATION ENGINEER) HS Troponin I 10 <=14 ng/L [facility] Blood 11/04/2023 10:4 5 PM SOFTWARE VALIDATION ENGINEER 11/04/2023 11:05 PM SOFTWARE VALIDATION ENGINEER Narrative [facility] - 11/04/2023 11:36 PM SOFTWARE VALIDATION ENGINEER First Occurrence of the Troponin order is to be drawn Stat by Nursing staff on the unit. Devin Dougherty MD LABORATORY [facility] [address] [address] * (ABNORMAL) CBC WITH PLTS/AUTO DIFF (11/04/2023 10:45 PM SOFTWARE VALIDATION ENGINEER) WBC 9.42 4.00 - 10.00 k/cmm [facility] [...] [facility] Blood 11/04/2023 10:4 5 PM SOFTWARE VALIDATION ENGINEER 11/04/2023 11:05 PM SOFTWARE VALIDATION ENGINEER Devin Dougherty MD LABORATORY [facility] [address] [address] * PRECAUTIONARY TUBE (11/04/2023 10:45 PM SOFTWARE VALIDATION ENGINEER) Prec Tube Precautionary Blood Bank Specimen Received. [facility] Blood 11/04/2023 10:4 5 PM SOFTWARE VALIDATION ENGINEER 11/04/2023 10:52 PM SOFTWARE VALIDATION ENGINEER Devin Dougherty MD LAB TRANSFUSION SER VICES Performing Organization Address [facility] [[email or web address]] Co de Phone Number [address] [address] * (ABNORMAL) ANTI XA HEPARIN UNFRACTIONATED (11/04/2023 10:45 PM SOFTWARE VALIDATION ENGINEER) Anti XA Hep U <0.04(L) 0.30 - 0.70 IU/mL [facility] Blood 11/04/2023 10:4 5 PM SOFTWARE VALIDATION ENGINEER 11/04/2023 11:05 PM SOFTWARE VALIDATION ENGINEER Devin Dougherty MD LABORATORY Performing Organization Address [facility] [[email or web address]] Co de Phone Number [address] [address] * ED US CRITICAL CARE (11/04/2023 10:40 PM SOFTWARE VALIDATION ENGINEER) Anatomical Region Laterality Modality Ultrasound Narrative 11/04/2023 11:28 PM SOFTWARE VALIDATION ENGINEER ED Trauma eFAST Ultrasound Indications: Suspicion [...] Advance Directives For more information, please contact: [phone] Latest Code Status on File Code Status [...] Code Status With Whom? Patient Care Teams Terrazzo Finisher Helper Relationship Specialty Start Date End Date Eloise Reeves [place] [address] [place] [address] PCP - General Family Medicine 11/06/23
--- OUTSIDE RECORDS SUMMARY | 2023-12-12 16:07 | XMS_ITS | Clinical Summary ---
Author Name Unknown Organization [employer] Address [address] [place] [phone] Phone Care Team Providers Care Inspector [employer] Name Role Phone Jacklyn Reevesher Sushil BUSBY Primary Care Provider Source Comments [employer] is fully rolled out on [employer]. Last update 04/02/09.[employer] Allergies Active Allergy Reactions Criticality Noted Date [...] Department Care Team Description 11/27/2023 1:00 PM CLINICAL PSYCHOLOGY PROFESSOR [facility] [address] [place] [address] [id number] Leidy Velazquez PA-C Mild traumatic brain injury, [...] Department [place] Unknown, Provider 11/04/2023 10:39 PM CLINICAL PSYCHOLOGY PROFESSOR - 11/16/2023 9:19 AM CLINICAL PSYCHOLOGY PROFESSOR Hospital Encounter [facility] Surgery/Trauma/Kimmie ro [id number] [place] [address] Devin Dougherty MD Petrun, Branden, MD [place], [...] Comments Blood Pressure 108/71 11/27/2023 12:54 PM CLINICAL PSYCHOLOGY PROFESSOR Pulse 74 11/27/2023 12:54 PM CLINICAL PSYCHOLOGY PROFESSOR Temperature 36.6 ??C (97.8 ??F) 11/16/2023 4:25 AM CS T Respiratory Rate 16 11/16/2023 4:25 AM CLINICAL PSYCHOLOGY PROFESSOR Oxygen Saturation 90% 11/16/2023 4:25 AM CLINICAL PSYCHOLOGY PROFESSOR Inhaled Oxygen Concentration - - Weight 61.6 kg (135 lb 12.8 oz) 024 12:54 PM CLINICAL PSYCHOLOGY PROFESSOR Height 147.3 cm (4' 10) 11/05/2023 12: 03 AM CLINICAL PSYCHOLOGY PROFESSOR Body Mass Index 28.38 11/05/2023 12:03 AM CLINICAL PSYCHOLOGY PROFESSOR Plan of Treatment Health Maintenance Due Date [...] BASIC METABOLIC (BMP) Routine 11/16/2023 7:22 AM CLINICAL PSYCHOLOGY PROFESSOR POC GLUCOSE Routine 11/16/2023 6:58 AM CLINICAL PSYCHOLOGY PROFESSOR POC GLUCOSE Routine 11/15/2023 9:15 PM CLINICAL PSYCHOLOGY PROFESSOR POC GLUCOSE Routine 11/15/2023 4:09 PM CLINICAL PSYCHOLOGY PROFESSOR POC GLUCOSE Routine 11/15/2023 12:46 PM CLINICAL PSYCHOLOGY PROFESSOR PANEL BASIC METABOLIC (BMP) Routine 11/15/2023 7:39 AM CLINICAL PSYCHOLOGY PROFESSOR POC GLUCOSE Routine 11/15/2023 6:11 AM CLINICAL PSYCHOLOGY PROFESSOR POC GLUCOSE Routine 11/14/2023 9:02 PM CLINICAL PSYCHOLOGY PROFESSOR POC GLUCOSE Routine 11/14/2023 4:21 PM CLINICAL PSYCHOLOGY PROFESSOR POC GLUCOSE Routine 11/14/2023 12:19 PM CLINICAL PSYCHOLOGY PROFESSOR PANEL BASIC METABOLIC (BMP) Routine 11/14/2023 8:59 AM CLINICAL PSYCHOLOGY PROFESSOR POC GLUCOSE Routine 11/14/2023 8:11 AM CLINICAL PSYCHOLOGY PROFESSOR POC GLUCOSE Routine 11/13/2023 9:15 PM CLINICAL PSYCHOLOGY PROFESSOR POC GLUCOSE Routine 11/13/2023 4:03 PM CLINICAL PSYCHOLOGY PROFESSOR POC GLUCOSE Routine 11/13/2023 11:21 AM CLINICAL PSYCHOLOGY PROFESSOR PANEL BASIC METABOLIC (BMP) Routine 11/13/2023 6:41 AM CLINICAL PSYCHOLOGY PROFESSOR POC GLUCOSE Routine 11/13/2023 6:31 AM CLINICAL PSYCHOLOGY PROFESSOR POC GLUCOSE Routine 11/12/2023 9:21 PM CLINICAL PSYCHOLOGY PROFESSOR POC GLUCOSE Routine 11/12/2023 4:12 PM CLINICAL PSYCHOLOGY PROFESSOR PANEL BASIC METABOLIC (BMP) Timed 11/12/2023 1:01 PM CLINICAL PSYCHOLOGY PROFESSOR POC GLUCOSE Routine 11/12/2023 12:14 PM CLINICAL PSYCHOLOGY PROFESSOR POC GLUCOSE Routine 11/12/2023 6:09 AM CLINICAL PSYCHOLOGY PROFESSOR POC GLUCOSE Routine 11/11/2023 8:48 PM CLINICAL PSYCHOLOGY PROFESSOR POC GLUCOSE Routine 11/11/2023 4:11 PM CLINICAL PSYCHOLOGY PROFESSOR POC GLUCOSE Routine 11/11/2023 11:47 AM CLINICAL PSYCHOLOGY PROFESSOR PHOSPHORUS Routine 11/11/2023 6:09 AM CLINICAL PSYCHOLOGY PROFESSOR PANEL BASIC METABOLIC (BMP) Routine 11/11/2023 6:09 AM CLINICAL PSYCHOLOGY PROFESSOR MAGNESIUM Routine 11/11/2023 6:09 AM CLINICAL PSYCHOLOGY PROFESSOR TC LAB BLOOD DRAW BY VENIPUNCTURE Routine 11/11/2023 6:09 AM CLINICAL PSYCHOLOGY PROFESSOR POC GLUCOSE Routine 11/10/2023 8:58 PM CLINICAL PSYCHOLOGY PROFESSOR POC GLUCOSE Routine 11/10/2023 4:16 PM CLINICAL PSYCHOLOGY PROFESSOR POC GLUCOSE Routine 11/10/2023 11:15 AM CLINICAL PSYCHOLOGY PROFESSOR PHOSPHORUS Routine 11/10/2023 6:17 AM CLINICAL PSYCHOLOGY PROFESSOR PANEL BASIC METABOLIC (BMP) Routine 11/10/2023 6:17 AM CLINICAL PSYCHOLOGY PROFESSOR MAGNESIUM Routine 11/10/2023 6:17 AM CLINICAL PSYCHOLOGY PROFESSOR PC LAB CBC/PLT Routine 11/10/2023 6:17 AM CLINICAL PSYCHOLOGY PROFESSOR POC GLUCOSE Routine 11/09/2023 9:41 PM CLINICAL PSYCHOLOGY PROFESSOR POC GLUCOSE Routine 11/09/2023 3:58 PM CLINICAL PSYCHOLOGY PROFESSOR ANTI XA ASSAY LMW HEPARIN Timed 11/09/2023 2:18 PM CLINICAL PSYCHOLOGY PROFESSOR POC GLUCOSE Routine 11/09/2023 11:28 AM CLINICAL PSYCHOLOGY PROFESSOR XR FOOT RIGHT 3 V AP/OBL/LAT* Routine 11/09/2023 10:36 AM CLINICAL PSYCHOLOGY PROFESSOR TELEMETRY STRIPS 11/09/2023 8:48 AM CLINICAL PSYCHOLOGY PROFESSOR POC GLUCOSE Routine 11/09/2023 5:46 AM CLINICAL PSYCHOLOGY PROFESSOR PC VALPROIC ACID LEVEL DEPAHOTE Routine 11/09/2023 5:41 AM CLINICAL PSYCHOLOGY PROFESSOR PHOSPHORUS Routine 11/09/2023 5:41 AM CLINICAL PSYCHOLOGY PROFESSOR PANEL BASIC METABOLIC (BMP) Routine 11/09/2023 5:41 AM CLINICAL PSYCHOLOGY PROFESSOR MAGNESIUM Routine 11/09/2023 5:41 AM CLINICAL PSYCHOLOGY PROFESSOR PC LAB CBC/PLT Routine 11/09/2023 5:41 AM CLINICAL PSYCHOLOGY PROFESSOR TELEMETRY STRIPS 11/09/2023 1:21 AM CLINICAL PSYCHOLOGY PROFESSOR POC GLUCOSE Routine 11/08/2023 8:40 PM CLINICAL PSYCHOLOGY PROFESSOR TELEMETRY STRIPS 11/08/2023 7:31 PM CLINICAL PSYCHOLOGY PROFESSOR PHOSPHORUS Routine 11/08/2023 4:20 PM CLINICAL PSYCHOLOGY PROFESSOR MAGNESIUM Routine 11/08/2023 4:20 PM CLINICAL PSYCHOLOGY PROFESSOR PANEL BASIC METABOLIC (BMP) Routine 11/08/2023 4:20 PM CLINICAL PSYCHOLOGY PROFESSOR TC LAB BLOOD DRAW BY VENIPUNCTURE Routine 11/08/2023 4:20 PM CLINICAL PSYCHOLOGY PROFESSOR POC GLUCOSE Routine 11/08/2023 3:56 PM CLINICAL PSYCHOLOGY PROFESSOR POC GLUCOSE Routine 11/08/2023 11:03 AM CLINICAL PSYCHOLOGY PROFESSOR TELEMETRY STRIPS 11/08/2023 9:49 AM CLINICAL PSYCHOLOGY PROFESSOR XR CHEST 1 VIEW AP OR PA* Routine 11/08/2023 6:30 AM CLINICAL PSYCHOLOGY PROFESSOR POC GLUCOSE Routine 11/08/2023 6:22 AM CLINICAL PSYCHOLOGY PROFESSOR TELEMETRY STRIPS 11/08/2023 2:59 AM CLINICAL PSYCHOLOGY PROFESSOR POC GLUCOSE Routine 11/07/2023 9:34 PM CLINICAL PSYCHOLOGY PROFESSOR TELEMETRY STRIPS 11/07/2023 7:31 PM CLINICAL PSYCHOLOGY PROFESSOR POC GLUCOSE Routine 11/07/2023 4:06 PM CLINICAL PSYCHOLOGY PROFESSOR POC GLUCOSE Routine 11/07/2023 11:45 AM CLINICAL PSYCHOLOGY PROFESSOR XR CHEST 2 VIEWS PA + LAT* Routine 11/07/2023 10:07 AM CLINICAL PSYCHOLOGY PROFESSOR TELEMETRY STRIPS 11/07/2023 9:29 AM CLINICAL PSYCHOLOGY PROFESSOR PC PROCALCITONIN (PCT) Routine 8:34 AM CLINICAL PSYCHOLOGY PROFESSOR PC LAB CBC/PLT Routine 11/07/2023 8:34 AM CLINICAL PSYCHOLOGY PROFESSOR PANEL BASIC METABOLIC (BMP) Routine 11/07/2023 8:34 AM CLINICAL PSYCHOLOGY PROFESSOR MAGNESIUM Routine 11/07/2023 8:34 AM CLINICAL PSYCHOLOGY PROFESSOR PHOSPHORUS Routine 11/07/2023 8:34 AM CLINICAL PSYCHOLOGY PROFESSOR POC GLUCOSE Routine 11/07/2023 5:45 AM CLINICAL PSYCHOLOGY PROFESSOR TELEMETRY STRIPS 11/07/2023 1:07 AM CLINICAL PSYCHOLOGY PROFESSOR POC GLUCOSE Routine 11/06/2023 9:21 PM CLINICAL PSYCHOLOGY PROFESSOR TELEMETRY STRIPS 11/06/2023 4:28 PM CLINICAL PSYCHOLOGY PROFESSOR PC GASES,BLOOD,ANY COMB OF PH,PCD2,PO2,CO2,HCO2 Routine 11/06/2023 1:06 PM CLINICAL PSYCHOLOGY PROFESSOR MAGNESIUM Timed 11/06/2023 1:06 PM CLINICAL PSYCHOLOGY PROFESSOR PHOSPHORUS Timed 11/06/2023 1:06 PM CLINICAL PSYCHOLOGY PROFESSOR PANEL BASIC METABOLIC (BMP) Timed 11/06/2023 1:06 PM CLINICAL PSYCHOLOGY PROFESSOR PC LAB CBC/PLT Timed 11/06/2023 1:06 PM CLINICAL PSYCHOLOGY PROFESSOR POC GLUCOSE Routine 11/06/2023 1:04 PM CLINICAL PSYCHOLOGY PROFESSOR POC GLUCOSE Routine 11/06/2023 10:49 AM CLINICAL PSYCHOLOGY PROFESSOR TELEMETRY STRIPS 11/06/2023 8:49 AM CLINICAL PSYCHOLOGY PROFESSOR PC LAB GLYCOSYLATED HGB Routine 11/06/2023 6:31 AM CLINICAL PSYCHOLOGY PROFESSOR PROTHROMBIN (PT) & INR Timed 6:31 AM CLINICAL PSYCHOLOGY PROFESSOR PC PHOSPHORUS INORGANIC(PHOSPHATE) Routine 11/06/2023 6:31 AM CLINICAL PSYCHOLOGY PROFESSOR PC MAGNESIUM, SERUM Routine 11/06/2023 6 :31 AM CLINICAL PSYCHOLOGY PROFESSOR PC LAB CBC/PLT Routine 11/06/2023 6:31 AM CLINICAL PSYCHOLOGY PROFESSOR TC LAB BLOOD DRAW BY VENIPUNCTURE Routine 11/06/2023 6:31 AM CLINICAL PSYCHOLOGY PROFESSOR POC GLUCOSE Routine 11/06/2023 5:39 AM CLINICAL PSYCHOLOGY PROFESSOR TELEMETRY STRIPS 11/06/2023 1:52 AM CLINICAL PSYCHOLOGY PROFESSOR POC GLUCOSE Routine 11/05/2023 4:54 PM CLINICAL PSYCHOLOGY PROFESSOR MAGNESIUM Routine 11/05/2023 4:48 PM CLINICAL PSYCHOLOGY PROFESSOR POTASSIUM Routine 11/05/2023 4:48 [address] PSYCHOLOGY PROFESS[address] HEAD NO IV CONTRAST Timed 11:44 AM CLINICAL PSYCHOLOGY PROFESSOR POC GLUCOSE Routine 11/05/2023 11:11 AM CLINICAL PSYCHOLOGY PROFESSOR TELEMETRY STRIPS 11/05/2023 9:25 AM CLINICAL PSYCHOLOGY PROFESSOR EKG ADULT (12-LEAD) Routine 11/05/2023 6 :38 AM CLINICAL PSYCHOLOGY PROFESSOR POC GLUCOSE Routine 11/05/2023 6:07 [address] CLINICAL PSYCHOLOGY PROF[address] HEAD NO IV CONTRAST Timed 4:54 AM CLINICAL PSYCHOLOGY PROFESSOR PROTHROMBIN (PT) & INR Timed 4:27 AM CLINICAL PSYCHOLOGY PROFESSOR PC PHOSPHORUS INORGANIC(PHOSPHATE) Routine 11/05/2023 4:27 AM CLINICAL PSYCHOLOGY PROFESSOR PC MAGNESIUM, SERUM Routine 11/05/2023 4 :27 AM CLINICAL PSYCHOLOGY PROFESSOR PC GASES,BLOOD,ANY COMB OF PH,PCD2,PO2,CO2,HCO2 Routine 11/05/2023 4:27 AM CLINICAL PSYCHOLOGY PROFESSOR PC LAB CBC/PLT Routine 11/05/2023 4:27 AM CLINICAL PSYCHOLOGY PROFESSOR TC LAB BLOOD DRAW BY VENIPUNCTURE Routine 11/05/2023 4:27 AM CLINICAL PSYCHOLOGY PROFESSOR PC TROPONIN QUANTITATIVE Timed 11/05/2023 4:27 AM CLINICAL PSYCHOLOGY PROFESSOR PC TROPONIN QUANTITATIVE Timed 11/05/2023 2:58 AM CLINICAL PSYCHOLOGY PROFESSOR CK, TOTAL STAT 11/05/2023 1:32 AM CLINICAL PSYCHOLOGY PROFESSOR FIBRINOGEN STAT 11/05/2023 1:32 AM CLINICAL PSYCHOLOGY PROFESSOR PC LAB PTT STAT 11/05/2023 1:32 AM CLINICAL PSYCHOLOGY PROFESSOR PANEL HEPATIC FUNCTION STAT 1:32 AM CLINICAL PSYCHOLOGY PROFESSOR PC LAB CBC/PLT STAT 11/05/2023 1:32 AM CLINICAL PSYCHOLOGY PROFESSOR PANEL BASIC METABOLIC (BMP) STAT 11/05/2023 1:32 AM CLINICAL PSYCHOLOGY PROFESSOR MAGNESIUM STAT 11/05/2023 1:32 AM CLINICAL PSYCHOLOGY PROFESSOR PHOSPHORUS STAT 11/05/2023 1:32 AM CLINICAL PSYCHOLOGY PROFESSOR PROTHROMBIN (PT) & INR STAT 1:32 AM CLINICAL PSYCHOLOGY PROFESSOR PC IONIZED,CALCIUM STAT 11/05/2023 1: 18 AM CLINICAL PSYCHOLOGY PROFESSOR PC LACTATE (LACTIC ACID) STAT 11/05/2023 1:18 AM CLINICAL PSYCHOLOGY PROFESSOR PC GASES,BLOOD,ANY COMB OF PH,PCD2,PO2,CO2,HCO2 STAT 11/05/2023 1:18 AM CLINICAL PSYCHOLOGY PROFESSOR PC TROPONIN QUANTITATIVE Timed 11/05/2023 1:18 AM CLINICAL PSYCHOLOGY PROFESS[address] CT HEAD-NECK - ANGIO - W/IV CON STAT 11/05/2023 12:09 AM CLINICAL PSYCHOLOGY PROFESSOR PC LAB COMPLETE UA STAT 11/04/2023 11 :55 PM CLINICAL PSYCHOLOGY PROFESSOR PF INSERT CATH,ART,PERCUT,SANTA ERM Routine 11/04/2023 11:43 PM CLINICAL PSYCHOLOGY PROFESSOR ED EKG (12-LEAD) Routine 11/04/2023 11:2 5 [address] CLINICAL PSYCHOLOGY PROFESSOR CT SPINE LUMBAR NO IV CON STAT 11/04/2023 11:05 PM CLINICAL PSYCHOLOGY PROFESSOR CT SPINE THORACIC NO IV CON STAT 11/04/2023 11:05 PM CLINICAL PSYCHOLOGY PROFESSOR CT CHEST/ABD/PELVIS W/IV CONT STAT 11/04/2023 11:05 PM CLINICAL PSYCHOLOGY PROFESSOR CT SPINE CERVICAL NO IV CON STAT 11/04/2023 11:05 PM CLINICAL PSYCHOLOGY PROFESSOR CT HEAD NO IV CONTRAST STAT 11:05 PM CLINICAL PSYCHOLOGY PROFESSOR XR CHEST 1 VIEW AP OR PA* STAT 11/04/2023 10:57 PM CLINICAL PSYCHOLOGY PROFESSOR TC LAB ER STAT TOTAL HGB STAT 11/04/2023 10:48 PM CLINICAL PSYCHOLOGY PROFESSOR PC ELECTROLYTES PANEL STAT 11/04/2023 10:48 PM CLINICAL PSYCHOLOGY PROFESSOR PC HEPARIN ASSAY STAT 11/04/2023 10:4 5 PM CLINICAL PSYCHOLOGY PROFESSOR EXTRA TUBE - SST Routine 11/04/2023 10:4 5 PM CLINICAL PSYCHOLOGY PROFESSOR TC LAB BLOOD DRAW BY VENIPUNCTURE Routine 11/04/2023 10:45 PM CLINICAL PSYCHOLOGY PROFESSOR PC TROPONIN QUANTITATIVE STAT 11/04/2023 10:45 PM CLINICAL PSYCHOLOGY PROFESSOR PC LAB PTT STAT 11/04/2023 10:45 PM CLINICAL PSYCHOLOGY PROFESSOR PC LAB ED INR STAT 11/04/2023 10:45 PM CLINICAL PSYCHOLOGY PROFESSOR PRECAUTIONARY TUBE STAT 11/04/2023 10 :45 PM CLINICAL PSYCHOLOGY PROFESSOR PC LACTATE (LACTIC ACID) STAT 11/04/2023 10:45 PM CLINICAL PSYCHOLOGY PROFESSOR FIBRINOGEN STAT 11/04/2023 10:45 PM CLINICAL PSYCHOLOGY PROFESSOR PC LAB CBC W/DIFF & PLT STAT 11/04/2023 10:45 PM CLINICAL PSYCHOLOGY PROFESSOR PC GASES,BLOOD,ANY COMB OF PH,PCD2,PO2,CO2,HCO2 STAT 11/04/2023 10:45 PM CLINICAL PSYCHOLOGY PROFESSOR ED US CRITICAL CARE STAT 11/04/2023 1 0:40 PM CLINICAL PSYCHOLOGY PROFESSOR PANEL LIPID Routine 10/10/2021 11:08 AM CLINICAL PSYCHOLOGY PROFESSOR from Last 3 Months or Most Recently Relevant to Health Maintenance Results * (ABNORMAL) PANEL BASIC METABOLIC (BMP) (11/16/2023 7:22 AM CLINICAL PSYCHOLOGY PROFESSOR) Only the most recent of12 resultswithin the time period is included. Sodium 143 135 - 148 mEq/L [facility] Potassium 3.9 3.5 - 5.3 mEq/L [facility] Chloride 105 92 - 108 mEq/L [facility] CO2 27 22 - 30 mEq/L [facility] AnGap 11 8 - 16 mEq/L [facility] Glucose 87 70 - 100 mg/dL [facility] BUN 23 8 - 23 mg/dL [facility] Creatinine 1.19(H) 0.50 - 1.00 mg/dL [facility] Calcium 9.4 8.8 - 10.2 mg/dL [facility] eGFR (2020 CKD-EPI) 46(L) >=60 ml/min/1.7 3m2 [facility] Comment: The estimated glomerular filtration rate (eGFR) was calculated using the CKD-EPI 2020 creatinine equation, which does not include race as a factor. This equation is validated in individuals 18 years of age and older, and eGFR is normalized to a body surface area of 1.73m^2. Blood 11/16/2023 7:22 AM CLINICAL PSYCHOLOGY PROFESSOR 11/16/2023 7:43 AM CLINICAL PSYCHOLOGY PROFESSOR Jesusita Aiken DOCTOR NATUROPATHIC, THERMAL SPRAY OPERATOR LABORATO RY Performing Organization Address City/[facility]/[place] [address] * POC GLUCOSE (11/16/2023 6:58 AM CLINICAL PSYCHOLOGY PROFESSOR) Only the most recent of42 resultswithin the time period is included. POC Glucose 84 70 - 100 mg/dL [facility] Blood 11/16/2023 6:58 AM CLINICAL PSYCHOLOGY PROFESSOR Devin Dougherty MD LABORATORY Performing Organization Address City/[facility] Co de Phone Number [facility] [address] [place] [address], * PHOSPHORUS (11/11/2023 6:09 AM CLINICAL PSYCHOLOGY PROFESSOR) Only the most recent of7 resultswithin the time period is included. Phosphorus 3.5 2.5 - 4.5 mg/dL [facility] Blood 11/11/2023 6:09 AM CLINICAL PSYCHOLOGY PROFESSOR 11/11/2023 6:36 AM CLINICAL PSYCHOLOGY PROFESSOR Quinn Covarrubias MD LABORATORY Performing Organization Address City/[facility]/ZIP Co de Phone Number [facility] [address] [address] * MAGNESIUM (11/11/2023 6:09 AM CLINICAL PSYCHOLOGY PROFESSOR) Only the most recent of8 resultswithin the time period is included. Magnesium 2.2 1.6 - 2.4 mg/dL [facility] Blood 11/11/2023 6:09 AM CLINICAL PSYCHOLOGY PROFESSOR 11/11/2023 6:36 AM CLINICAL PSYCHOLOGY PROFESSOR Quinn Covarrubias MD LABORATORY Performing Organization Address [facility] Co de Phone Number [facility] [address] [address] * (ABNORMAL) CBC WITH PLATELET (11/11/2023 6:09 AM CLINICAL PSYCHOLOGY PROFESSOR) Only the most recent of7 resultswithin the time period is included. [facility] WBC 5.60 4.00 - 10.00 k/cmm [facility] RBC 3.80(L) 3.90 - 5.20 m/cmm [facility] Hgb 9.5(L) 11.5 - 15.7 g/dL [facility] Hematocrit 31.4(L) 34.0 - 45.0 % [facility] MCV 82.6 80.0 - 100.0 fL [facility] MCH 25.0 25.0 - 32.0 pg [facility] MCHC 30.3(L) 31.0 - 36.0 g/dL [facility] RDW 16.1(H) 11.5 - 14.5 % [facility] Plt 275 150 - 400 k/cmm [facility] MPV 11.8 6.5 - 12.5 fL [facility] Blood 11/11/2023 6:09 AM CLINICAL PSYCHOLOGY PROFESSOR 11/11/2023 6:36 AM CLINICAL PSYCHOLOGY PROFESSOR Quinn Covarrubias MD LABORATORY Performing Organization Address [facility] Co de Phone Number [facility] [address] [address] * ANTI XA ASSAY LMW HEPARIN (11/09/2023 2:18 PM CLINICAL PSYCHOLOGY PROFESSOR) [facility] Anti XA LMW 0.32 IU/mL [facility] Comment: Anti Xa Assay LMW Heparin Therapeutic Ranges: 0.4-1.1 IU/mL for twice daily 1.0-2.0 IU/mL for once daily Blood 11/09/2023 2:18 PM CLINICAL PSYCHOLOGY PROFESSOR 11/09/2023 2:29 PM CLINICAL PSYCHOLOGY PROFESSOR Quinn Covarrubias MD LABORATORY [facility] [address] [phone] * XR FOOT RIGHT 3 V AP/OBL/LAT* (11/09/2023 10:36 AM CLINICAL PSYCHOLOGY PROFESSOR) Anatomical Region Laterality Modality Foot Computed Radiogr aphy 11/09/2023 10:4 7 AM CLINICAL PSYCHOLOGY PROFESSOR Impressions 11/09/2023 10:50 AM CLINICAL PSYCHOLOGY PROFESSOR Impression: No acute osseous abnormality. Generalized osteopenia. Reading Radiologist: Angela Camp Narrative 11/09/2023 10:50 AM CLINICAL PSYCHOLOGY PROFESSOR Technique: XR FOOT RIGHT 3 V AP/OBL/LAT* [...] Reading Radiologist: Angela Camp Jesusita Aiken APRN, THERMAL SPRAY OPERATOR RAD XRAY * TELEMETRY STRIPS (11/09/2023 8:48 AM CLINICAL PSYCHOLOGY PROFESSOR) Only the most recent of12 resultswithin the time period is included. Narrative 11/09/2023 8:48 AM CLINICAL PSYCHOLOGY PROFESSOR Ordered by an unspecified provider. Provider Unknown RAD ECHO * (ABNORMAL) VALPROATE (DEPAKOTE) LEVEL (11/09/2023 5:41 AM CLINICAL PSYCHOLOGY PROFESSOR) Valproate 31.8(L) 50.0 - 100.0 mcg/mL [facility] Blood 11/09/2023 5:41 AM CLINICAL PSYCHOLOGY PROFESSOR 11/09/2023 8:19 AM CLINICAL PSYCHOLOGY PROFESSOR Quinn Covarrubias MD LABORATORY [facility] [address] [place] [address] * XR CHEST 1 VIEW AP OR PA* (11/08/2023 6:30 AM CLINICAL PSYCHOLOGY PROFESSOR) Only the most recent of2 resultswithin the time period is included. Anatomical Region Laterality Modality Chest Computed Radiogr aphy 11/08/2023 6:56 AM CLINICAL PSYCHOLOGY PROFESSOR Impressions 11/08/2023 7:24 AM CLINICAL PSYCHOLOGY PROFESSOR Impression: Stable chest. I have personally reviewed the image(s) and initial interpretation, and I agree with the findings as documented by the resident/fellow. Reading Radiologist: Ronal Hidalgo Reading Resident: Laith Berkowitz Narrative 11/08/2023 7:24 AM CLINICAL PSYCHOLOGY PROFESSOR Technique: XR CHEST 1 VIEW AP OR [...] VIEWS PA + LAT* (11/07/2023 10:07 AM CLINICAL PSYCHOLOGY PROFESSOR) Anatomical Region Laterality Modality Chest Computed Radiogr aphy 11/07/2023 10:0 9 AM CLINICAL PSYCHOLOGY PROFESSOR Impressions 11/07/2023 10:10 AM CLINICAL PSYCHOLOGY PROFESSOR Impression: New left basilar opacities with small effusion concerning for developing infection. Reading Radiologist: Phil Contreras Narrative 11/07/2023 10:10 AM CLINICAL PSYCHOLOGY PROFESSOR Technique: XR CHEST 2 VIEWS PA + [...] RAD XRAY * PROCALCITONIN (11/07/2023 8:34 AM CLINICAL PSYCHOLOGY PROFESSOR) Procalcitonin 0.12 ng/mL [facility] Comment: Results <0.50 ng/mL represent a low risk of severe sepsis and/or septic shock. Results >2.0 ng/mL represent a high risk of severe sepsis and/or septic shock. Blood 11/07/2023 8:34 AM CLINICAL PSYCHOLOGY PROFESSOR 11/07/2023 8:40 AM CLINICAL PSYCHOLOGY PROFESSOR Quinn Covarrubias MD LABORATORY [facility] [address] [phone] * (ABNORMAL) BLOOD GASES (11/06/2023 1:06 PM CLINICAL PSYCHOLOGY PROFESSOR) Only the most recent of3 resultswithin the time period is included. PH Jalen 7.36 7.32 - 7.42 [facility] PCO2 Jalen 48 41 - 51 mmHG [facility] PO2 Jalen 86(H) 25 - 40 mmHG [facility] Bicarb Jalen 26 24 - 28 mEq/L [facility] O2 Sat Jalen 96 % [facility] Base Exc Jalen 1.0 -10.0 - 2.0 mEq/L [facility] Blood Venous 11/06/2023 1:06 PM CLINICAL PSYCHOLOGY PROFESSOR 11/06/2023 1:10 PM CLINICAL PSYCHOLOGY PROFESSOR Narrative [facility] - 11/06/2023 1:16 PM CLINICAL PSYCHOLOGY PROFESSOR Draw on Room Air: No O2 LPM (liter/min) Level->4 via mask FiO2 Level: 100 Quinn Covarrubias MD LABORATORY Performing Organization Address [facility] de Phone Number [facility] [address] [id number] * (ABNORMAL) ICU MAGNESIUM (11/06/2023 6:31 AM CLINICAL PSYCHOLOGY PROFESSOR) Only the most recent of2 resultswithin the time period is included. Magnesium 2.5(H) 1.6 - 2.4 mg/dL [facility] Blood 11/06/2023 6:31 AM CLINICAL PSYCHOLOGY PROFESSOR 11/06/2023 7:37 AM CLINICAL PSYCHOLOGY PROFESSOR Devin Dougherty MD LABORATORY Performing Organization Address [facility] de Phone Number [facility] [address] [phone] * ICU PHOSPHORUS (11/06/2023 6:31 AM CLINICAL PSYCHOLOGY PROFESSOR) Only the most recent of2 resultswithin the time period is included. Phosphorus 4.1 2.5 - 4.5 mg/dL [facility] Blood 11/06/2023 6:31 AM CLINICAL PSYCHOLOGY PROFESSOR 11/06/2023 7:37 AM CLINICAL PSYCHOLOGY PROFESSOR Devin Dougherty MD LABORATORY Performing Organization Address [facility] de Phone Number [facility] [address] [address] * (ABNORMAL) ICU CBC WITH PLATELET (11/06/2023 6:31 AM CLINICAL PSYCHOLOGY PROFESSOR) Only the most recent of2 resultswithin the time period is included. WBC 9.06 4.00 - 10.00 k/cmm [facility] RBC 3.77(L) 3.90 - 5.20 m/cmm [facility] Hgb 9.6(L) 11.5 - 15.7 g/dL [facility] Hematocrit 30.8(L) 34.0 - 45.0 % [facility] MCV 81.7 80.0 - 100.0 fL [facility] MCH 25.5 25.0 - 32.0 pg [facility] MCHC 31.2 31.0 - 36.0 g/dL [facility] RDW 15.9(H) 11.5 - 14.5 % [facility] Plt 284 150 - 400 k/cmm [facility] MPV 12.1 6.5 - 12.5 fL [facility] Blood 11/06/2023 6:31 AM CLINICAL PSYCHOLOGY PROFESSOR 11/06/2023 7:37 AM CLINICAL PSYCHOLOGY PROFESSOR Devin Dougherty MD LABORATORY [facility] [address] [phone] * (ABNORMAL) ICU PANEL BASIC METABOLIC (BMP) (11/06/2023 6:31 AM CLINICAL PSYCHOLOGY PROFESSOR) Only the most recent of2 resultswithin the time period is included. Sodium 142 135 - 148 mEq/L [facility] Potassium 3.7 3.5 - 5.3 mEq/L [facility] Chloride 107 92 - 108 mEq/L [facility] CO2 26 22 - 30 mEq/L [facility] AnGap 9 8 - 16 mEq/L [facility] Glucose 148(H) 70 - 100 mg/dL [facility] BUN 12 8 - 23 mg/dL [facility] Creatinine 0.77 0.50 - 1.00 mg/dL [facility] Calcium 8.7(L) 8.8 - 10.2 mg/dL [facility] eGFR (2020 CKD-EPI) 77 >=60 ml/min/1.7 3m2 [facility] Comment: The estimated glomerular filtration rate (eGFR) was calculated using the CKD-EPI 2020 creatinine equation, which does not include race as a factor. This equation is validated in individuals 18 years of age and older, and eGFR is normalized to a body surface area of 1.73m^2. Blood 11/06/2023 6:31 AM CLINICAL PSYCHOLOGY PROFESSOR 11/06/2023 7:37 AM CLINICAL PSYCHOLOGY PROFESSOR Devin Dougherty MD LABORATORY Performing Organization Address City/[facility] Co de Phone Number [facility] [address] [address] * PROTHROMBIN (PT) & INR (11/06/2023 6:31 AM CLINICAL PSYCHOLOGY PROFESSOR) Only the most recent of3 resultswithin the time period is included. PT 11.4 9.0 - 12.5 sec [facility] INR 1.0 0.8 - 1.1 [facility] Comment: Warfarin Therapeutic Range: Standard Intensity: 2.0 - 3.0 High Intensity: 2.5 - 3.5 Blood 11/06/2023 6:31 AM CLINICAL PSYCHOLOGY PROFESSOR 11/06/2023 7:37 AM CLINICAL PSYCHOLOGY PROFESSOR Quinn Covarrubias MD LABORATORY Performing Organization Address [facility] de Phone Number [address] [address] * (ABNORMAL) GLYCOSYLATED HGB - A1C (11/06/2023 6:31 AM CLINICAL PSYCHOLOGY PROFESSOR) Hemoglobin A1C 8.1(H) 4.0 - 5.6 % [facility] Comment: Increased risk for diabetes (prediabetes): 5.7-6.4% Diabetes: greater than or equal to 6.5% * * In the absence of unequivocal hyperglycemia, diagnosis requires two abnormal test results (i.e. HbA1c and glucose) or two abnormal results from specimens collected at two different timepoints. Estimated Average Glucose 186(H) 68 - 114 [facility] Comment: The ADA recommends reporting an estimated Average Glucose (eAG) with all hemoglobin A1c results using the equation derived from a study of 501 normal diabetic adults. Minority populations were underrepresented and children were not included. The EAG is not equivalent to a fasting glucose. Blood 11/06/2023 6:31 AM CLINICAL PSYCHOLOGY PROFESSOR 11/06/2023 11:28 AM CLINICAL PSYCHOLOGY PROFESSOR Quinn Covarrubias MD LABORATORY Performing Organization Address [facility] Co de Phone Number [address] [address] * (ABNORMAL) POTASSIUM (11/05/2023 4:48 PM CLINICAL PSYCHOLOGY PROFESSOR) Potassium 3.2(L) 3.5 - 5.3 mEq/L [facility] Blood 11/05/2023 4:48 PM CLINICAL PSYCHOLOGY PROFESSOR 11/05/2023 4:58 PM CLINICAL PSYCHOLOGY PROFESSOR Quinn Covarrubias MD LABORATORY [facility] [address] [place] [address] * CT HEAD NO IV CONTRAST (11/05/2023 11:44 AM CLINICAL PSYCHOLOGY PROFESSOR) Only the most recent of3 resultswithin the time period is included. Anatomical Region Laterality Modality Skull Computed Tomogra phy 11/05/2023 12:1 6 PM CLINICAL PSYCHOLOGY PROFESSOR Impressions 11/05/2023 12:38 PM CLINICAL PSYCHOLOGY PROFESSOR Impression: Stable head CT as compared to the study performed 7 hours earlier. Intra-axial and extra-axial hemorrhage(s) without midline shift or hydrocephalus. The basal cisterns are patent. Reading Radiologist: Ford Fernández Narrative 11/05/2023 12:38 PM CLINICAL PSYCHOLOGY PROFESSOR Exam: Head CT without contrast, 11/05/2023 Indication: [...] * EKG ADULT (12-LEAD) (11/05/2023 6:38 AM CLINICAL PSYCHOLOGY PROFESSOR) 11/05/2023 6:38 AM CLINICAL PSYCHOLOGY PROFESSOR Impressions [facility] EKG ORDERS - 11/05/2023 6:38 AM CLINICAL PSYCHOLOGY PROFESSOR SINUS RHYTHM RIGHT BUNDLE BRANCH BLOCK ??[120+ ms QRS DURATION, UPRIGHT V1, 40+ ms S IN I/aVL/V4/V5/V6] ABNORMAL ECG P-R Interval 151 ms QRS Interval 128 ms QT Interval 420 ms QTC Interval 462 ms P [place] 9 QRS [place] 27 T Wave [place] 70 Narrative Procedure Note Lauren Mills MD - 11/06/2023 IMPRESSION SINUS RHYTHM RIGHT BUNDLE BRANCH BLOCK [120+ ms QRS DURATION, UPRIGHT V1, 40+ ms S INI/aVL/V4/V5/V6] ABNORMAL ECG P-R Interval 151 ms QRS Interval 128 ms QT Interval 420 ms QTC Interval 462 ms P [place] 9 QRS [place] 27 T Wave [place] 70 Quinn Covarrubias MD EKG Performing Organization Address City/[facility]/ZIP Co de Phone Number [facility] EKG ORDERS * (ABNORMAL) ICU BLOOD GAS (11/05/2023 4:27 AM CLINICAL PSYCHOLOGY PROFESSOR) PH Art 7.38 7.35 - 7.45 [facility] PCO2 Art 42 35 - 45 mmHG [facility] PO2 Art 99(H) 75 - 85 mmHG [facility] Bicarb Art 25 22 - 26 mEq/L [facility] O2 Sat Art 98 96 - 99 % [facility] Base Exc Art 0.0 -10.0 - 2.0 mEq/L [facility] Blood Arterial 11/05/2023 4: 27 AM CLINICAL PSYCHOLOGY PROFESSOR 11/05/2023 4:34 AM CLINICAL PSYCHOLOGY PROFESSOR Devin Dougherty MD LABORATORY [facility] [address] [address] * (ABNORMAL) TROP 6H (11/05/2023 4:27 AM CLINICAL PSYCHOLOGY PROFESSOR) 6H Trop 51(H) <=14 ng/L [facility] 6H Delta Significan t(A) Not Significant [facility] Blood 11/05/2023 4:27 AM CLINICAL PSYCHOLOGY PROFESSOR 11/05/2023 4:35 AM CLINICAL PSYCHOLOGY PROFESSOR Devin Dougherty MD LABORATORY Performing Organization Address [facility] Co de Phone Number [facility] [address] [address] * (ABNORMAL) TROP 4H (11/05/2023 2:58 AM CLINICAL PSYCHOLOGY PROFESSOR) 4H Trop 39(H) <=14 ng/L [facility] 4H Delta Significan t(A) Not Significant [facility] Blood 11/05/2023 2:58 AM CLINICAL PSYCHOLOGY PROFESSOR 11/05/2023 3:48 AM CLINICAL PSYCHOLOGY PROFESSOR Devin Dougherty MD LABORATORY Performing Organization Address [facility] de Phone Number [facility] [address] [address] * (ABNORMAL) PANEL HEPATIC FUNCTION (11/05/2023 1:32 AM CLINICAL PSYCHOLOGY PROFESSOR) Alk Phos 111(H) 35 - 104 IU/L [facility] Total Protein 6.5 6.4 - 8.3 g/dL [facility] Bili Direct na <=0.3 mg/dL [facility] Comment:Direct Bilirubin = < 0.2. Accuracy of result suspect due to lipemia. Albumin 3.8 3.8 - 5.1 g/dL [facility] Bili Total <0.2 <=1.2 mg/dL [facility] ALT (SGPT) na <=33 [facility] Comment:ALT = 15. Accuracy o f result suspect due to lipemia. AST(SGOT) na 5 - 40 [facility] Comment:AST = 27. Accuracy o f result suspect due to lipemia. Blood 11/05/2023 1:32 AM CLINICAL PSYCHOLOGY PROFESSOR 11/05/2023 1:32 AM CLINICAL PSYCHOLOGY PROFESSOR Devin Dougherty MD LABORATORY Performing Organization Address [facility] Co de Phone Number [facility] [address] [address] * FIBRINOGEN (11/05/2023 1:32 AM CLINICAL PSYCHOLOGY PROFESSOR) Only the most recent of2 resultswithin the time period is included. Fibrinogen 262 200 - 400 mg/dL [facility] Blood 11/05/2023 1:32 AM CLINICAL PSYCHOLOGY PROFESSOR 11/05/2023 1:32 AM CLINICAL PSYCHOLOGY PROFESSOR Devin Dougherty MD LABORATORY Performing Organization Address [facility] de Phone Number [facility] [address] [address] * CK, TOTAL (11/05/2023 1:32 AM CLINICAL PSYCHOLOGY PROFESSOR) CK 56 26 - 192 IU/L [facility] Blood 11/05/2023 1:32 AM CLINICAL PSYCHOLOGY PROFESSOR 11/05/2023 1:32 AM CLINICAL PSYCHOLOGY PROFESSOR Devin Dougherty MD LABORATORY Performing Organization Address [facility] de Phone Number [facility] [address] [address] * PTT (APTT) (11/05/2023 1:32 AM CLINICAL PSYCHOLOGY PROFESSOR) Only the most recent of2 resultswithin the time period is included. APTT 26.0 25.0 - 37.0 sec [facility] Blood 11/05/2023 1:32 AM CLINICAL PSYCHOLOGY PROFESSOR 11/05/2023 1:32 AM CLINICAL PSYCHOLOGY PROFESSOR Devin Dougherty MD LABORATORY Performing Organization Address [facility] Co de Phone Number [facility] [address] [address] * (ABNORMAL) TROP 2H (11/05/2023 1:18 AM CLINICAL PSYCHOLOGY PROFESSOR) 2H Trop 18(H) <=14 ng/L [facility] 2H Delta Indeterminate Not Significant [facility] Blood 11/05/2023 1:18 AM CLINICAL PSYCHOLOGY PROFESSOR 11/05/2023 1:45 AM CLINICAL PSYCHOLOGY PROFESSOR Devin Dougherty MD LABORATORY Performing Organization Address [facility] Co de Phone Number [facility] [address] [address] * LACTATE (LACTIC ACID) (11/05/2023 1:18 AM CLINICAL PSYCHOLOGY PROFESSOR) Only the most recent of2 resultswithin the time period is included. Lactate 1.9 0.7 - 2.1 mmol/L [facility] Blood 11/05/2023 1:18 AM CLINICAL PSYCHOLOGY PROFESSOR 11/05/2023 1:27 AM CLINICAL PSYCHOLOGY PROFESSOR Narrative [facility] - 11/05/2023 1:45 AM CLINICAL PSYCHOLOGY PROFESSOR Send specimen on ice! Devin Dougherty MD LABORATORY Performing Organization Address [facility] Co de Phone Number [address] [address] * CALCIUM,IONIZED (11/05/2023 1:18 AM CLINICAL PSYCHOLOGY PROFESSOR) PH 7.37 7.32 - 7.42 [facility] ICA, Actual 4.82 4.40 - 5.20 mg/dL [facility] ICA, pH Corrected 4.75 4.40 - 5.20 mg/dL [facility] Blood 11/05/2023 1:18 AM CLINICAL PSYCHOLOGY PROFESSOR 11/05/2023 1:27 AM CLINICAL PSYCHOLOGY PROFESSOR Narrative [facility] - 11/05/2023 1:44 AM CLINICAL PSYCHOLOGY PROFESSOR Send specimen on ice! Devin Doguherty MD LABORATORY Performing Organization Address [facility] Co de Phone Number [address] [address] * CT HEAD-NECK - ANGIO - W/IV CON (11/05/2023 12:09 AM CLINICAL PSYCHOLOGY PROFESSOR) Anatomical Region Laterality Modality Skull Computed Tomogra phy 11/05/2023 12:2 1 AM CLINICAL PSYCHOLOGY PROFESSOR Impressions 11/05/2023 10:22 AM CLINICAL PSYCHOLOGY PROFESSOR Impression: ?? Slightly increased size of the [...] Fernández Resident: Laith Berkowitz 11/05/2023 10:22 AM CLINICAL PSYCHOLOGY PROFESSOR CT angiogram of the Head with contrast, [...] and reviewed by the Radiologist using the [employer] workstation, and these images were archived in [...] and reviewed by the Radiologist using the [employer] workstation,and these images were archived in the [...] NEURO * (ABNORMAL) URINALYSIS,TOTAL (11/04/2023 11:55 PM CLINICAL PSYCHOLOGY PROFESSOR) Color COLORLESS YELLOW [facility] Appearance CLEAR CLEAR [facility] Urine Glucose 100(A) NEGATIVE mg/dL [facility] Bili UA NEGATIVE NEGATIVE [facility] Ketones NEGATIVE NEGATIVE [facility] Specific [place] 1.036(A) 1.003 - 1.030 [facility] Blood Ur NEGATIVE Neg-Trace [facility] PH Urine 7.5(H) 5.0 - 7.0 [facility] Protein Ur TRACE Neg-Trace [facility] Urobilinogen NORMAL NORMAL EU/dL [facility] Nitrite Ur NEGATIVE NEGATIVE [facility] Leuk Est NEGATIVE Neg-Trace [facility] WBC Ur 0-5 0 - 5 perHPF [facility] RBC Ur 0-3 0 - 3 perHPF [facility] SQ EPITH 0-5 0 - 5 perHPF [facility] Urinalysis Performed at: [facility] Urine 11/04/2023 11:5 5 PM CLINICAL PSYCHOLOGY PROFESSOR 11/05/2023 12:03 AM CLINICAL PSYCHOLOGY PROFESSOR Devin Dougherty MD LABORATORY [facility] [address] [place] [phone] * PF INSERT CATH,ART,PERCUT,SHORTTERM (11/04/2023 11:43 PM CLINICAL PSYCHOLOGY PROFESSOR) Narrative Rito Graf MD - 11/04/2023 11:43 PM CLINICAL PSYCHOLOGY PROFESSOR Priscilla Holcomb MD ? 11/04/2023 11:44 PM Arterial Line Performed by: Priscilla Holcomb MD Authorized by: Rito Grfa MD ?? Consent: ??Consent obtained: ??Verbal ??Consent given by: ??Patient ??Risks discussed: ??Pain, bleeding and infection Grawn protocol: ??Patient identity confirmed: ??Verbally with patient, [...] * ED EKG (12-LEAD) (11/04/2023 11:25 PM CLINICAL PSYCHOLOGY PROFESSOR) 11/04/2023 11:2 5 PM CLINICAL PSYCHOLOGY PROFESSOR Impressions [facility] EKG ORDERS - 11/04/2023 11:25 PM CLINICAL PSYCHOLOGY PROFESSOR SINUS TACHYCARDIA RIGHT BUNDLE BRANCH BLOCK ??[120+ ms QRS DURATION, UPRIGHT V1, 40+ ms S IN I/aVL/V4/V5/V6] ABNORMAL ECG P-R Interval 173 ms QRS Interval 127 ms QT Interval 395 ms QTC Interval 458 ms P [place] 57 QRS [place] 34 T Wave [place] 43 Narrative Procedure Note Vineet Díaz MD - 11/05/2023 IMPRESSION SINUS TACHYCARDIA RIGHT BUNDLE BRANCH BLOCK [120+ ms QRS DURATION, UPRIGHT V1, 40+ ms S INI/aVL/V4/V5/V6] ABNORMAL ECG P-R Interval 173 ms QRS Interval 127 ms QT Interval 395 ms QTC Interval 458 ms P [place] 57 QRS [place] 34 T Wave [place] 43 Devin Dougherty MD EKG [facility] ORDERS * CT SPINE THORACIC NO IV CON (11/04/2023 11:05 PM CLINICAL PSYCHOLOGY PROFESSOR) Anatomical Region Laterality Modality Thoracic Spine Computed Tomogra phy 11/04/2023 11:2 3 PM CLINICAL PSYCHOLOGY PROFESSOR Impressions 11/05/2023 9:22 AM CLINICAL PSYCHOLOGY PROFESSOR Impression: 1. No suspected acute fracture or dislocation of the thoracic or lumbar spine. ?? 2. Ixml-jj-fdtkmeoa lumbar spondylosis without suspected high-grade spinal canal or neural foraminal narrowing. I have personally reviewed the image(s) and initial interpretation, and I agree with the findings as documented by the resident/fellow. Reading Radiologist: Ford Fernández Resident: Laith Berkowitz 11/05/2023 9:22 AM CLINICAL PSYCHOLOGY PROFESSOR Exam: Thoracic and Lumbar Spine CT Reconstructions, [...] dislocation of the thoracic or lumbarspine. 2. Eawt-nj-vioiuerb lumbar spondylosis without suspected high-grade spinalcanal or neural foraminal narrowing. I have personally reviewed the image(s) and initial interpretation, and Iagree with the findings as documented by the resident/fellow. Reading Radiologist: Ford Fernández Resident: Laith Berkowitz Devin Dougherty MD RAD CT NEURO * CT SPINE LUMBAR NO IV CON (11/04/2023 11:05 PM CLINICAL PSYCHOLOGY PROFESSOR) Anatomical Region Laterality Modality Lumbar Spine Computed Tomogra phy 11/04/2023 11:2 3 PM CLINICAL PSYCHOLOGY PROFESSOR Impressions 11/05/2023 9:22 AM CLINICAL PSYCHOLOGY PROFESSOR Impression: 1. No suspected acute fracture or dislocation of the thoracic or lumbar spine. ?? 2. Luqv-pq-pyyuefww lumbar spondylosis without suspected high-grade spinal canal or neural foraminal narrowing. I have personally reviewed the image(s) and initial interpretation, and I agree with the findings as documented by the resident/fellow. Reading Radiologist: Ford Fernández Resident: Laith Berkowitz Narrative 11/05/2023 9:22 AM CLINICAL PSYCHOLOGY PROFESSOR Exam: Thoracic and Lumbar Spine CT Reconstructions, [...] dislocation of the thoracic or lumbarspine. 2. Slfh-bn-vtzlkkxt lumbar spondylosis without suspected high-grade spinalcanal or neural foraminal narrowing. I have personally reviewed the image(s) and initial interpretation, and Iagree with the findings as documented by the resident/fellow. Reading Radiologist: Ford Fernández Resident: Laith Berkowitz Devin Dougherty MD RAD CT NEURO * CT SPINE CERVICAL NO IV CON (11/04/2023 11:05 PM CLINICAL PSYCHOLOGY PROFESSOR) Anatomical Region Laterality Modality Cervical Spine Computed Tomogra phy 11/04/2023 11:2 0 PM CLINICAL PSYCHOLOGY PROFESSOR Impressions 11/05/2023 8:27 AM CLINICAL PSYCHOLOGY PROFESSOR Impression: ?? 1. No acute fracture or traumatic subluxation of the cervical vertebrae. 2. Mild degenerative changes of the cervical spine without high-grade spinal canal or neural foraminal narrowing. I have personally reviewed the image(s) and initial interpretation, and I agree with the findings as documented by the resident/fellow. Reading Radiologist: Ford Fernández Resident: Laith Berkowitz Narrative 11/05/2023 8:27 AM CLINICAL PSYCHOLOGY PROFESSOR Exam: Cervical spine CT without contrast, 11/04/2023 [...] spinal canal narrowing. C5-6: Mild left and rcyn-ip-iwwxloxv right neural foraminal narrowing. Borderline mild spinal [...] spinal canal narrowing. C5-6: Mild left and zvcm-hl-cxwlmkzh right neural foraminal narrowing.Borderline mild spinal canal [...] CT CHEST/ABD/PELVIS W/IV CONT (11/04/2023 11:05 PM CLINICAL PSYCHOLOGY PROFESSOR) Anatomical Region Laterality Modality Chest Computed Tomogra phy 11/04/2023 11:2 9 PM CLINICAL PSYCHOLOGY PROFESSOR Impressions 11/05/2023 6:33 AM CLINICAL PSYCHOLOGY PROFESSOR Impression: 1. No acute traumatic sequelae in [...] Resident: Laith Berkowitz Narrative 11/05/2023 6:33 AM CLINICAL PSYCHOLOGY PROFESSOR Comparison: None Indication: Trauma (STAB) ?? Technique: [...] ED CHEMISTRY LABS(NA,K,CL,CO2,GLU,CREAT,CA-IONIZED,ANION GAP) (11/04/2023 10:48 PM CLINICAL PSYCHOLOGY PROFESSOR) Sodium 144 135 - 148 mEq/L [facility] Chloride 106 92 - 108 mEq/L [facility] AnGap 11 8 - 16 mEq/L [facility] Glucose 234(H) 70 - 100 mg/dL [facility] ICA, Actual 4.52 4.40 - 5.20 mg/dL [facility] ICA, pH Corrected 4.51 4.40 - 5.20 mg/dL [facility] Creatinine 0.81 0.50 - 1.00 mg/dL [facility] BICARB 27(H) 22 - 26 mEq/L [facility] eGFR (2020 CKD-EPI) 73 >=60 ml/min/1.7 3m2 [facility] Comment: The estimated glomerular filtration rate (eGFR) was calculated using the CKD-EPI 2020 creatinine equation, which does not include race as a factor. This equation is validated in individuals 18 years of age and older, and eGFR is normalized to a body surface area of 1.73m^2. Potassium 2.8(AA) 3.5 - 5.3 mEq/L [facility] Comment:Critcal Result Low Blood 11/04/2023 10:4 8 PM CLINICAL PSYCHOLOGY PROFESSOR 11/04/2023 10:49 PM CLINICAL PSYCHOLOGY PROFESSOR Narrative [facility] - 11/04/2023 10:55 PM CLINICAL PSYCHOLOGY PROFESSOR Critical value for Potassium called to and read back by Rafa Hutchins RN in ??EDSTAB 2 at 11/04/2023 22:55:31 CLINICAL PSYCHOLOGY PROFESSOR by Eleni Spring MLS. Devin Dougherty MD LABORATORY Performing Organization Address [facility] Co de Phone Number [facility] [address] [address] * (ABNORMAL) ED HEMOGLOBIN TOTAL (ED ONLY) (11/04/2023 10:48 PM CLINICAL PSYCHOLOGY PROFESSOR) [facility] Hgb 10.3(L) 11.5 - 15.7 g/dL [facility] Blood 11/04/2023 10:4 8 PM CLINICAL PSYCHOLOGY PROFESSOR 11/04/2023 10:49 PM CLINICAL PSYCHOLOGY PROFESSOR Devin Dougherty MD LABORATORY Performing Organization Address [facility] Co de Phone Number [address] [address] * ED INR (11/04/2023 10:45 PM CLINICAL PSYCHOLOGY PROFESSOR) [facility] ED INR 1.0 0.8 - 1.1 [facility] Comment: Warfarin Therapeutic Range: Standard Intensity: 2.0 - 3.0 High Intensity: 2.5 - 3.5 Blood 11/04/2023 10:4 5 PM CLINICAL PSYCHOLOGY PROFESSOR 11/04/2023 10:48 PM CLINICAL PSYCHOLOGY PROFESSOR Devin Dougherty MD LABORATORY Performing Organization Address [facility] Co de Phone Number [address] [address] * EXTRA TUBE - LIGHT GREEN (11/04/2023 10:45 PM CLINICAL PSYCHOLOGY PROFESSOR) Pathologist [facility] LIGHT GREEN TUBE Stored [facility] Comment:Green tubes ([place] Heparin) are stored in the lab for 3 days from the collection date. Blood 11/04/2023 10:4 5 PM CLINICAL PSYCHOLOGY PROFESSOR 11/04/2023 10:50 PM CLINICAL PSYCHOLOGY PROFESSOR Devin Dougherty MD LABORATORY Performing Organization Address City/[facility] Co de Phone Number [facility] [address] [address] * EXTRA TUBE - SST (11/04/2023 10:45 PM CLINICAL PSYCHOLOGY PROFESSOR) SST TUBE Stored [facility] Comment:SST tubes (Serum Sep arator) are stored in the lab for 3 days from the collection date. Blood 11/04/2023 10:4 5 PM CLINICAL PSYCHOLOGY PROFESSOR 11/04/2023 10:50 PM CLINICAL PSYCHOLOGY PROFESSOR Devin Dougherty MD LABORATORY Performing Organization Address [facility] Co de Phone Number [facility] [address] [address] * HS TROPONIN (11/04/2023 10:45 PM CLINICAL PSYCHOLOGY PROFESSOR) Pathologist [facility] HS Troponin I 10 <=14 ng/L [facility] Blood 11/04/2023 10:4 5 PM CLINICAL PSYCHOLOGY PROFESSOR 11/04/2023 11:05 PM CLINICAL PSYCHOLOGY PROFESSOR Narrative [facility] - 11/04/2023 11:36 PM CLINICAL PSYCHOLOGY PROFESSOR First Occurrence of the Troponin order is to be drawn Stat by Nursing staff on the unit. Devin Dougherty MD LABORATORY Performing Organization Address [facility] Co de Phone Number [facility] [address] [address] * (ABNORMAL) CBC WITH PLTS/AUTO DIFF (11/04/2023 10:45 PM CLINICAL PSYCHOLOGY PROFESSOR) WBC 9.42 4.00 - 10.00 k/cmm [facility] RBC 3.86(L) 3.90 - 5.20 m/cmm [facility] Hgb 9.8(L) 11.5 - 15.7 g/dL [facility] Hematocrit 31.8(L) 34.0 - 45.0 % [facility] MCV 82.4 80.0 - 100.0 fL [facility] MCH 25.4 25.0 - 32.0 pg [facility] MCHC 30.8(L) 31.0 - 36.0 g/dL [facility] RDW 15.3(H) 11.5 - 14.5 % [facility] Plt 292 150 - 400 k/cmm [facility] MPV 11.1 6.5 - 12.5 fL [facility] Automated Abs Neutrophil 5.80 1.70 - 6.50 k/cmm [facility] Comment:Preliminary ANC, Fin al Result to Follow Abs Immature Granulocyte 0.07 0.00 - 0.09 k/cmm [facility] Comment:The Immature Granulo cyte Absolute count contains metamyelocytes and myelocytes. Abs Neutrophil 5.80 1.70 - 6.50 k/cmm [facility] Abs Lymphocyte 2.33 0.80 - 4.00 k/cmm [facility] Abs Monocyte 0.88 0.20 - 1.00 k/cmm [facility] Abs Eosinophil 0.27 0.00 - 0.60 k/cmm [facility] Abs Basophil 0.07 0.00 - 0.20 k/cmm [facility] Blood 11/04/2023 10:4 5 PM CLINICAL PSYCHOLOGY PROFESSOR 11/04/2023 11:05 PM CLINICAL PSYCHOLOGY PROFESSOR Devin Dougherty MD LABORATORY Performing Organization Address City/[facility] Co de Phone Number [facility] [address] [address] * PRECAUTIONARY TUBE (11/04/2023 10:45 PM CLINICAL PSYCHOLOGY PROFESSOR) Prec Tube Precautionary Blood Bank Specimen Received. [facility] Blood 11/04/2023 10:4 5 PM CLINICAL PSYCHOLOGY PROFESSOR 11/04/2023 10:52 PM CLINICAL PSYCHOLOGY PROFESSOR Devin Dougherty MD LAB TRANSFUSION SER VICES Performing Organization Address City/[facility]/ZIP Co de Phone Number [facility] [address] [address] * (ABNORMAL) ANTI XA HEPARIN UNFRACTIONATED (11/04/2023 10:45 PM CLINICAL PSYCHOLOGY PROFESSOR) Anti XA Hep U <0.04(L) 0.30 - 0.70 IU/mL [facility] Blood 11/04/2023 10:4 5 PM CLINICAL PSYCHOLOGY PROFESSOR 11/04/2023 11:05 PM CLINICAL PSYCHOLOGY PROFESSOR Devin Dougherty MD LABORATORY [facility] [address] [address] * ED US CRITICAL CARE (11/04/2023 10:40 PM CLINICAL PSYCHOLOGY PROFESSOR) Anatomical Region Laterality Modality Ultrasound Narrative 11/04/2023 11:28 PM CLINICAL PSYCHOLOGY PROFESSOR ED Trauma eFAST Ultrasound Indications: Suspicion of [...] Advance Directives For more information, please contact: [phone] Latest Code Status on File Code Status [...] Code Status With Whom? Patient Care Teams Inspector [employer] Relationship Specialty Start Date End Date Eloise Reeves DO [address] [place] [address] PCP - General Family Medicine 11/06/23
--- OUTSIDE RECORDS SUMMARY | 2023-12-12 16:07 | XMS_ITS | Encounter Summary ---
Author Name Unknown Organization [facility] Address [address] [place] [address] Phone Care Team Providers Care Science Technicians Name Role Phone Eloise Reeves DO Primary Care Provider Reason for Visit * Reason Comments Referral TBI * Consult/Test/Treat (Routine) - Closed Specialty Diagnoses / Procedures Referred By Contac t Referred To Contact Physical Medicine and Rehab / PHYSICAL MEDICINE AND REHAB Diagnoses Fall, initial encounter SDH (subdural hematoma) ([facility]) SAH (subarachnoid hemorrhage) ([facility]) Traumatic brain injury with loss of consciousness, initial encounter ([facility]) Jesusita Aiken, TAMMIE, MOULDER OPERATOR [address] [place] [address] [facility] [address] [place] [id number] Referral ID Status Reason Start Date Expiration Date Visits Re quested Visits Authorized [id number] Closed 11/08/2023 11/07/2024 1 1 Encounter Details Date Type Department Care Team (Latest Contact Info) Description 11/27/2023 1:00 PM NUTRITION ASSISTANT [facility] [address] [address] Leidy Velazquez PA-C [address] [address] Mild traumatic brain injury, with [...] Coronavirus/COVID-19? No / Unsure 11/04/2023 10:48 PM NUTRITION ASSISTANT documented as of this encounter Last Filed Vital Signs Vital Sign Reading Time Taken Comments Blood Pressure 108/71 11/27/2023 12:54 PM NUTRITION ASSISTANT Pulse 74 11/27/2023 12:54 PM NUTRITION ASSISTANT Temperature - - Respiratory Rate - - Oxygen Saturation - - Inhaled Oxygen Concentration - - Weight 61.6 kg (135 lb 12.8 oz) 024 12:54 PM NUTRITION ASSISTANT Height - - Body Mass Index 28.38 11/05/2023 12:03 AM NUTRITION ASSISTANT documented in this encounter Patient Instructions * Patient Instructions* Leidy Velazquez PA-C - 11/27/2023 1:00 PM NUTRITION ASSISTANT You were seen at [facility] for traumatic brain injury. You have [...] you do not hear from them, call [phone] to schedule Psychiatry for mood changes, this is for evaluation and treatment recommendations that may include medication. You will need to call to schedule this appointment. Please call [phone] and inform them you have a referral [...] to your scheduled appointment by calling at [phone]. If you miss three or more appointments, [...] plan ahead. Paperwork can be faxed to [phone]. Brain Injury and Physical Medicine & Rehabilitation Contact List Lista de contactos de lesiones cerebrales traum??rochelle, medicina f??gricelda y rehabilitaci??ora Ibrahim Maskxada jenn [employer] Phone To Schedule Appointments Para programar citas Hadii aad dooneeyso inaad norman sameeysato They make appointments for your doctor in the TBI/PMR clinic and your therapists [phone] Staff Nurse Nicolas carney??kirti Davalos Call for questions about medications, symptoms, or paperwork issues You can fax paperwork to [phone]. [phone] Health Information Management (HIM)/Medical Records Registros medicos Ashu Holloway Contact them if you need copies of your [place] [facility]. If you work with a [facility] they shouldcontact [facility] for their updates. You can also visit them on Blue 1. They are open Sunday-Sunday. If you need a form for Authorization to Release Health Information, you may request one at an appointment or download a form online at: [email or web address] Patient Billing/ Financial Assistance Facturaci??n Ellie Saunders/Meli duran If you have questions or problems with your medical bills. Financial assistance, insurance issues, or for more information about your medical bill. [phone] Community Resources: The [place] [facility] [place] offers resource facilitation at [email or web address]. Online courses [...] please call the TBI nurse at . ITION ASSISTANT documented in this encounter Progress Notes * Leidy Velazquez PA-C - 11/27/2023 1:00 PM CST [place], [place] [id number] [place] [address]#: [id number] PATIENT: Lucinda Casas : 1940 DATE OF [...] including pre-visit review of separately obtained history, [id number] interaction performing medically appropriate physical exam, patient [...] including pre-visit review of separately obtained history, [id number] interaction performing medically appropriate physical exam, patient counseling/education, interpretation of diagnostic results, care coordination and documentation. External records reviewed through care everywhere, [facility] documentation reviewed for information regarding injury. History collected through review of records, in addition to patient report. 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
--- OUTSIDE RECORDS SUMMARY | 2023-12-12 16:08 | XMS_ITS | Encounter Summary ---
Author Name Unknown Organization [facility] Address [address] [place] [address] Phone Care Team Providers Care Reclamation Worker Name Role Phone Eloise Reeves DO Primary Care Provider Reason for Referral * Consult/Test/Treat (Routine) - Closed Specialty Diagnoses / Procedures Referred By Selma bhandari Referred To Contact Physical Medicine and Rehab / PHYSICAL MEDICINE AND REHAB Diagnoses Fall, initial encounter SDH (subdural hematoma) ([facility]) SAH (subarachnoid hemorrhage) ([facility]) Traumatic brain injury with loss of consciousness, initial encounter ([facility]) Jesusita Aiken APRN, SPACE SYSTEMS OPERATIONS CRAFTSMAN [address] [place] [address] [facility] Pm&R Cl [address] [address] Referral ID Status Reason Start Date Expiration Date Visits Re quested Visits Authorized [id number] Closed 11/08/2023 11/07/2024 1 1 TRANSFER MAN Reason for Visit * Reason Comments Fall * Auth/Cert (Routine) Specialty Diagnoses / Procedures Referred By Contjerrod t Referred To Contact SURGERY Diagnoses SDH (subdural hematoma) ([facility]) Fall, initial encounter Tariq Bobo MD [address] [facility] [id number] [address] [place] [address] [address] [place] [address] Referral ID Status Reason Start Date Expiration Date Visits Re quested Visits Authorized [id number] 1 1 Encounter Details Date Type Department Care Team (Latest Contact Info) Description 11/04/2023 10:39 PM DRY TRANSFER MAN - 11/16/2023 9:19 AM DRY TRANSFER MAN Hospital Encounter [facility] Surgery/Trauma/Kimmie ro [address] [place], [place] [id number] Devin Dougherty MD [address] [facility] [place] [address] Quinn Covarrubias MD [address] [place] [address] Gregg Dexter MD [address] [facility] [address] [place] [address] Fall, initial encounter Discharge Disposition: [...] Coronavirus/COVID-19? No / Unsure 11/04/2023 10:48 PM DRY TRANSFER MAN documented as of this encounter Last Filed Vital Signs Vital Sign Reading Time Taken Comments Blood Pressure 148/51 11/16/2023 4:25 AM DRY TRANSFER MAN Pulse 61 11/16/2023 4:25 AM DRY TRANSFER MAN Temperature 36.6 ??C (97.8 ??F) 11/16/2023 4:25 AM CS T Respiratory Rate 16 11/16/2023 4:25 AM DRY TRANSFER MAN Oxygen Saturation 90% 11/16/2023 4:25 AM DRY TRANSFER MAN Inhaled Oxygen Concentration - - Weight 69.7 kg (153 lb 10.6 oz) 024 12:03 AM DRY TRANSFER MAN Height 147.3 cm (4' 10) 11/05/2023 12: 03 AM DRY TRANSFER MAN Body Mass Index 32.12 11/05/2023 12:03 AM DRY TRANSFER MAN documented in this encounter Discharge Summaries * [...] determined to be a good fir for [facility] inpatient acute rehab but after 1-2 weeks of therapy she wouldstill need 24/ observation. Due to her insurance it does not pay for a tcu after [place] [facility]. The family chose to discharge to [...] pale. Neurological: Mental Status: She is alert. Lacquer Machine Feeder Needed: no PLANNED DISCHARGE ORDERS: Suture/Miguel: None [...] 4:30PM, M-F): Call the Surgery Clinic at [phone] After hours or on Holidays: Call the [facility] gettering filament machine operator . Ask the gettering filament machine operator to page the general surgery resident escalator constructor. IF: -- you feel you are getting [...] getting larger: a pupil is the dark paimiut in the center of the eye - [...] it is often helpful to return to [facility] to be evaluated. If you live far away or are in extreme distress (i.e cannot breathor won't wake up), call 911 and first responders can decide which hospital is best. If you have any questions about your or your loved one's condition after discharge, call [phone] to speak with a nurse. Please contact [...] -- Read all labels for prescription and [id number] medicines. Ask the pharmacist if your prescription [...] documented. Gregg Dexter MD, 11/16/2023 8:18 AM TRANSFER MAN documented in this encounter Discharge Instructions * Discharge Instr - Speech Language Pathology* Nayeli Alvarado SLP [facility] - 11/15/2023 4:39 PM DRY TRANSFER MAN Speech-language pathologists (tube turner) assess and treat speech, language, cognition (thinking) [...] your primary Speech-Language Pathologist directly or call [phone]. TRANSFER MAN documented in this encounter Medications at Time [...] equipment/supplies recommended: none Final discharge destination: Subacute residential with rehab care R: The patient and family understood the AVS. P: Support patient and family if they call back with questions. Cornell Solomon RN, 11/16/2023 9:19 AM TRANSFER MAN * Carolina Awan RN - 11/16/2023 2:30 AM CST Entered chart to leave staff to staff regarding pt's d/c ride in the AM Carolina Awan RN, 11/16/2023 2:30 AM TRANSFER MAN * Sinai Brady PA-C - 11/15/2023 3:50 [...] II, and HLD, who was admitted to [facility] 11/04/2023 after being found unconscious at the [...] address self care, ADL's, adaptive equipment Continue AMMONIUM NITRATE CRYSTALLIZER to address speech, swallow, communication, cognition Regarding [...] of this note have been dictated using CloudLock dictation software. Please excuse any small craft operator errors and feel free to contact me regarding such errors or confusion regarding intended message. Sinai Brady PA-C, CBIS Pager via Globevestor TRANSFER MAN * Nayeli Alvarado, AMMONIUM NITRATE CRYSTALLIZER [facility] - 11/15/2023 2:49 PM CST Speech-Language Pathology Progress Note 11/15/2023 AMMONIUM NITRATE CRYSTALLIZER Recommendations Discharge Recommendations (AMMONIUM NITRATE CRYSTALLIZER): Post-acute placement recommended. Acute Rehab if meets admission criteria No known barriers to placement Barriers to Discharge (AMMONIUM NITRATE CRYSTALLIZER): NA - Post acute placement is recommended and no barriers to placement known. Post Discharge follow-up (AMMONIUM NITRATE CRYSTALLIZER): AMMONIUM NITRATE CRYSTALLIZER at post-acute placement Recommend PM&R Consult (AMMONIUM NITRATE CRYSTALLIZER): Yes, for assessment of post-acute placement needs. Pt appears to be a candidate for higher intensity rehab services. Diet Recommendation: Current Diet : Regular Current Liquid: Thin liquids Medication Administration: Medications with thin liquid Aspiration Precautions: Upright with all eating and drinking Oral Hygiene: [place] teeth 2x/day Positioning Techniques: Seat fully upright [...] Cognitive communication deficit R41.841, Treatment Type:Cognitive-linguistic Treatment (22556, 22936) Treatment Frequency: 2-3x per week CLINICAL IMPRESSIONS Patient presents with severe cognitive-linguistic deficits in areas of attention, working, short-term, and long-term memory, problem solving, reasoning, processing speed, and executive functioning secondary to SDH of the R>L tentorial leaflets and R cerebral convexity, scattered SAH, L periventri cular hemorrhage, and a small L frontal IPH. Ongoing tx is warranted. Speech-Language Pathologist: Nayeli Alvarado SLP [facility], 11/15/2023 2:49 PM Pager: TelSure Chillq TRANSFER MAN * Randy Barragan - 11/15/2023 10:27 AM CST Transportation set for patient as follows: Date and time () of patient departure: 11/16/2023 @0900 Destination: [facility] [place] [address] Type of ride: wheelchair Reference #[id number] Transportation vendor of ride: [employer] [phone] * If this ride needs to be [...] Clinical Coordinators will be informed via a TelSure Chillq page. PCS form was completed in Progress Notes and is ready to be signed and routed to vendor by requestor(for stretcher rides only). Randy Barragan, 11/15/2023 2:49 PM Patient name: Lucinda Kennedy Date of : 1940 Patient Admitting diagnosis: Patient Active Problem List Diagnosis Fall, initial encounter Attending provider: Quinn Covarrubias MD Insurance: [facility] Secondary insurance: N/A Height: Height: 147.3 cm (4' 10) Weight: Weight: 69.7 kg (153 lb 10.6 oz) TRANSFER MAN * Fide Reis - 11/15/2023 10:23 AM CST Preadmission Screening Submitter InformationPerson Being ReferredMedical InformationADL'[facility] HospitalSubmitResults Results Thank you for submitting a [...] help, contact the Senior LinkAge Line at [phone] or click to contact us. Print this page You have successfully submitted the preadmission screening (PAS) to the Senior LinkAge Line on: Created On 11/15/2023 10:08 AM Your confirmation number is: [id number] Results Level of Care: Based on the information you provided, it appears this person meets level of care for purposes of MA payment. OBRA: It appears this person does not need an OBRA Level II assessment. Submitter Information Form Type PAS Submitter First and Last Name Fide Ries Direct Email Agency [facility] Service Type Hospital [address] [facility] Zip Code [address] Is your Agency outside [place]? Person Being Admitted to Nursing Facility Legal first name Lucinda Last name Kennedy Date of 1940 Age 83 Gender Female Marital Status M= living with spouse Race White - W Ethnicity / Currently living with: 02 Living with spouse/parent Planned living with 02 Living with spouse/parent Housing Type Home or apartment, including assisted living () Mailing Address [address] [place] [address] [address] [facility] Medical Information Reason for nursing facility [...] the person will admit to?Yes Provider [facility] Nursing Facility Nursing Facility Service Type Fpc [address] If your provider is not listed [...] Phone Fax Patient Preferred Theresa Yusuf Sushil [facility] Selected Jail [address] [facility] [address] [phone] -- Internal Comment last updated by Bill Olivera 11/15/[address] [place] [address] offered us bed today. Working on setting up a ride. Team informed. Bill Olivera, 11/15/2023 10:01 AM Spoke with Italia. Will discuss further with her team. May likely admit tomorrow. May need prior auth. Bill Olivera, 11/15/2023 9:26 AM [facility] Considering Need clinical review N/A [address] [facility] [address] [phone] Internal Comment last updated by Fide Reis 11/14/2023 0926 Shared female .. bed .Fide Reis, 11/14/2023 9:25 AM [facility] Pending - Request Sent N/A [address] [facility] [address] Internal Comment last updated by Fide Reis 11/14/2023 0918 LVM for admissions .Fide Reis, 11/14/2023 9:18 AM [facility] Pending - Request Sent N/A [address] [facility] [address] -- Internal Comment last updated by Fide Reis 11/14/2023 0920 LVM for Renata in admissions Rere Reissushil Johansen, 11/14/2023 9:20 AM [facility] Pending - Request Sent N/A [address] [address] [phone] Internal Comment last updated by Fide Reis 11/14/2023 0921 LVM for admissions .Savanna Reisgee Johansne, 11/14/2023 9:21 AM [facility] Pending - Request Sent N/A [address] [facility] [address] [phone] -- [facility] Pending - Request Sent N/A [address] [address] [phone] -- [facility] Pending - Request Sent N/A 9[address] [facility] [address] [phone] -- [facility] P[facility] - Request Sent N/A 9200 [facility] [address] -- [facility] Pending - Request Sent N/A 213 [facility] [address] [phone] -- [facility] Pending - Request Sent N/A [address] [address] [phone] -- [facility] Declined Not a TCU N/A 900 [facility] [address] [phone] Internal Comment last updated by Marycarmen Caldwell 11/09/2023 1033 Not a TCU per the [phone] phone number connected to the same address. Marycarmen Caldwell,11/09/2023 10:33 AM [facility] Declined Closed N/A [address] [facility] [address] [phone] Internal Comment last updated by Fide Reis 11/08/2023 1359 Has been closed for 1 year . Fide Reis, 11/08/2023 1:59 PM [facility] Declined No Contract with Patient's Insurance Carrier N/A [id number] [facility] [id number] Internal Comment last updated by Bill Olivera 11/15/2023 0840 Family doesn't want it here. Bill Olivera, 11/15/2023 8:40 AM [facility] B3.320 Declined TCU N/A [address] [facility] [place] [phone] -- Internal Comment last updated by Bill Olivera 11/09/2023 0829 PM&R continues to follow. If DC imminent, recommending TCU instead. Bill Olivera, 11/09/2023 8:29 AM Pending PMnR recs. Bill Olivera, 11/06/2023 11:04 AM [facility] Declined Facility Cannot Provide for Patient's needs N/A [address] [place] [address] [phone] -- [facility] Declined Closed N/A [address] [place] [address] [phone] -- Internal Comment last updated by Marycarmen Caldwell 11/09/2023 1034 Permanently closed [facility] Declined Family choice N/A 843 [facility] Critical access hospital [address] [phone] -- Internal Comment last updated by Fide Reis 11/14/2023 0916 LVM for admissions. Fide Reis, 11/14/2023 9:16 AM [facility] Declined Family choice N/A [address] [facility] [address] [phone] -- [facility] Declined Family choice N/A [address] [facility] [address] [phone] -- [facility] Declined Bed not available N/A [address] [facility] [address] [phone] -- Home Medical Care Coordination has not been started for this encounter. TRANSFER MAN * Gregg Dexter MD - 11/15/2023 7:20 [...] 11/15/2023 09:51 PGY-5 General Surgery Resident Pager: [phone] or via BULX FACULTY NOTE I saw and evaluated the patient on the date of the resident's note. I discussed with the resident and agree with the resident???s findings and plan documented in the resident???s note from above. Anyrevisions by me are documented. Gregg Dexter MD, 11/15/2023 3:39 PM TRANSFER MAN * Gregg Dexter MD - 11/14/2023 11:58 [...] documented. Gregg Dexter MD, 11/15/2023 3:38 PM TRANSFER MAN * Sharri Price, OTR/L - 11/14/2023 11:00 [...] Functional activity: 8 minutes RAFAEL Medellin/Kelton Pager: BULX OT Department TRANSFER MAN * Carola Spence, ANTIQUE COLLECTOR - 11/14/2023 10:00 AM CST Images from [...] in [place].. Well if we are in [place] I told Wan to go to the [...] Quality (General): Shuffling;Unsteady Stairs Assistive Devices Used: (WEBMETHODS ARCHITECT) Sitting Static Balance Level of Assistance: Upper [...] SLS) Vertical/horizontal head turns - slows requires WEBMETHODS ARCHITECT Amb slow/fast : no significant change achieved Education : TCU vs Acute rehab and amount of assist patient will require upon dc home which is likely general supervision Interdisciplinary Communication PA/FOOT TENDER: discussed patient Document Management Consultant: daughter wishing to discuss POA Family: present [...] transfer bed to/from chair with (6) Modified Grant with sliding board or pivot method. By 11-17-2023 Outcome: In progress Goal: Patient will transfer sit to/from stand Description: Patient will transfer sit to/from stand with (6) Modified Grant By 11-17-2023. Outcome: In progress Problem: Decreased Ambulatory Skills Goal: Improve gait Description: Ambulate 100 meters using Front - wheeled walker with (6) Modified Grant By 11-17-2023. Outcome: In progress Goal: Improve gait on stairs Description: Ascend/descend 7 +7 stairs using Cane with (6) Modified Grant .By 11-17-2023 Outcome: In progress Problem: Decreased [...] least AD, stairs for home usage daily. ANTIQUE COLLECTOR Appropriate: Yes Carola Spence PTA 11/14/2023 Pager: [facility] PT Dept TRANSFER MAN * Sinai Brady PA-C - 11/14/2023 9:48 [...] II, and HLD, who was admitted to [facility] 11/04/2023 after being found unconscious at the [...] address self care, ADL's, adaptive equipment Continue AMMONIUM NITRATE CRYSTALLIZER to address speech, swallow, communication, cognition Regarding [...] of this note have been dictated using CloudLock dictation software. Please excuse any small craft operator errors and feel free to contact me regarding such errors or confusion regarding intended message. Sinai Brady PA-C, CBIS Pager via Globevestor Total time spent on this encounter, on the date of service including pre-visit review of separatelyobtained history, [id number] interaction performing medically appropriate physical exam, patient counseling/education, interpretation of diagnostic results, care coordination and documentation was 50 minutes. TRANSFER MAN * Sharri Price OTR/Kelton - 11/13/2023 4:49 [...] dressing task at Min A including donning sales support advisor socks and shorts at EOB. Patient completing light g/h tasks while seated in chair bedside with s/u. 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 Acute Rehab if meets admission criteria No known barriers to placement Barriers to Discharge (AMMONIUM NITRATE CRYSTALLIZER): NA - Post acute placement is recommended and no barriers to placement known. Post Discharge follow-up (AMMONIUM NITRATE CRYSTALLIZER): AMMONIUM NITRATE CRYSTALLIZER at post-acute placement Recommend PM&R Consult (AMMONIUM NITRATE CRYSTALLIZER): Yes, for assessment of post-acute placement needs. Pt appears to be a candidate for higher intensity rehab services. Diet Recommendation: Current Diet : Regular Current Liquid: Thin liquids Medication Administration: Medications with thin liquid Aspiration Precautions: Upright with all eating and drinking Oral Hygiene: [place]over teeth 2x/day Positioning Techniques: Seat fully upright [...] Cognitive communication deficit R41.841, Treatment Type:Cognitive-linguistic Treatment (47819, 12697) Treatment Frequency: 2-3x per week CLINICAL IMPRESSIONS Severe cognitive-linguistic deficits within attention, memory, problem solving, reasoning, and executive functioning. Ongoing cognitive-linguistic dx/tx is needed. Speech-Language Pathologist: Sera Fleming SLP [facility], 11/13/2023 1:14 PM Pager: Telmediq TRANSFER MAN * Jesusita Aiken APRN, SPACE SYSTEMS OPERATIONS CRAFTSMAN - 11/13/2023 8:21 AM CST SURGERY TRAUMA [...] Jesusita Aiken APRN, EMILY, 11/13/2023 11:17 AM TRANSFER MAN * Carola Spence PTA - 11/12/2023 10:30 [...] (Numeric): 0 (reports she has no pain) O:Lacquer Machine Feeder Used: None needed Mental Status Mental Status: [...] Shuffling;Unsteady -with nonuse of gait and vs WEBMETHODS ARCHITECT - patient exhibits significantly shortened step length Stairs Number of Steps: 5 Stair Rails: Right rail Stairs : Minimal assist Stairs Method: Ascend step-to pattern;Descend reciprocal pattern (max verbal cues for sequencing) Assistive Devices Used: (WEBMETHODS ARCHITECT) -catches foot on each step Sitting Static [...] transfer bed to/from chair with (6) Modified Grant with sliding board or pivot method. By 11-17-2023 Outcome: In progress Goal: Patient will transfer sit to/from stand Description: Patient will transfer sit to/from stand with (6) Modified Grant By 11-17-2023. Outcome: In progress Problem: Decreased Ambulatory Skills Goal: Improve gait Description: Ambulate 100 meters using Front - wheeled walker with (6) Modified Grant By 11-17-2023. Outcome: In progress Goal: Improve gait on stairs Description: Ascend/descend 7 +7 stairs using Cane with (6) Modified Grant .By 11-17-2023 Outcome: In progress Problem: Decreased Functional Motor Skills - PT Goal: Patient demonstrates improved balance Description: Pt to score at least 45/56 Micthell Balance to indicate decreased risk for falls By 11-17-2023 Outcome: In progress P: Patient will be seen 5x/week until goals are met or patient is discharged. Next visit the plan is to work on standing balance, gait with least AD, stairs for home usage daily. ANTIQUE COLLECTOR Appropriate: Yes Carola Spence PTA 11/12/2023 Pager: BULX PT Dept TRANSFER MAN * Gregg Dexter MD - 11/12/2023 7:59 [...] documented. Gregg Dexter MD, 11/12/2023 7:19 PM TRANSFER MAN * Amelia Lobo MD - 11/11/2023 7:53 [...] by and discussed with Staff Physician. Amelia Lboo MD, MPH 11/11/2023 07:56 PGY-5 General Surgery Resident Pager: [phone] or via Telmediq TRANSFER MAN Associated attestation - Mariama Catherine DO - 11/12/2023 2:39 PM DRY TRANSFER MAN FACULTY NOTE I saw and evaluated the [...] on the Primary Treatment Team, click here. TRANSFER MAN Associated attestation - Mariama Catherine DO - 11/12/2023 2:39 PM DRY TRANSFER MAN FACULTY NOTE I saw and evaluated the patient on the date of the resident's note. I discussed with the resident and agree with the resident???s findings and plan documented in the resident???s note from above. Anyrevisions by me are documented. Mariama Catherine DO, 11/12/2023 2:39 PM * Olivia Johnson RN - 11/09/2023 11:34 PM CST Shift [id number] Pt A&O to self and family member, pt pleasantly confused, spouse at bedside, pt VSS, on 2L to 4L via facemask to maintain oxygen above 90%. Pt denies bonita, pt up with AX1 with GB and walker, call light within reach, bed alarm on. TRANSFER MAN * Carola Spence PTA - 11/09/2023 3:35 [...] patient adamantly denies having pain this PM O:Lacquer Machine Feeder Used: None needed Mental Status Mental Status: [...] With approach Clarissa is in bed - video game script writer notes significant improvement in alertness and participation in therapy this PM. She is pleasantly confused and often reports we are in [place], [place] - writerredirects that she is at the hospital in [place], [place]. Exhibits significant improvement with ambthis PM [...] transfer bed to/from chair with (6) Modified Grant with sliding board or pivot method. By 11-17-2023 Outcome: In progress Goal: Patient will transfer sit to/from stand Description: Patient will transfer sit to/from stand with (6) Modified Grant By 11-17-2023. Outcome: In progress Problem: Decreased Ambulatory Skills Goal: Improve gait Description: Ambulate 100 meters using Front - wheeled walker with (6) Modified Grant By 11-17-2023. Outcome: In progress Goal: Improve gait on stairs Description: Ascend/descend 7 +7 stairs using Cane with (6) Modified Grant .By 11-17-2023 Outcome: In progress Problem: Decreased [...] least AD, stairs for home usage daily. ANTIQUE COLLECTOR Appropriate: Yes Carola Spence PTA 11/09/2023 Pager: Telmediq PT Dept TRANSFER MAN * Juhi Dent, PharmD - 11/09/2023 2:58 [...] ordered Juhi Dent, WalterD 11/09/2023 14:58 Telmediq TRANSFER MAN * Sera Fleming SLP CCC - 11/09/2023 11:20 AM CST Speech Language Pathology: Attempted to see patient this am x2. Pt sleeping soundly and not waking sufficiently for tx. Will re-attempt to see patient today as schedule permits. Sera Fleming SLP CCC, 11/09/2023 11:20 AM TRANSFER MAN * Jesusita Aiken, POLISHER AND BUFFER, SPACE SYSTEMS OPERATIONS CRAFTSMAN - 11/09/2023 7:31 AM CST SURGERY TRAUMA PROGRESS NOTE -FOOT TENDER Lucinda Kennedy : 1940 Sex: female ASSESSMENT: [...] Resident and Staff Physician. Jesusita Aiken APRN, SPACE SYSTEMS OPERATIONS CRAFTSMAN, 11/09/2023 7:32 AM Discharge Milestones Documentation Discharge Milestones completed daily by the documenting provider on the Primary Treatment Team, click here. TRANSFER MAN * Carola Spence, ANTIQUE COLLECTOR - 11/08/2023 2:30 PM CST Physical Therapy [...] perform) Heel/Toe Raises: 10 reps Interdisciplinary Communication PA/FOOT TENDER: updated PM&R PA following session RN: ok [...] bed and her eyes are closed. When video game script writer states her voice she responds right away but her eyes do not open. Coat Padder cues patient to move supine > seated [...] transfer bed to/from chair with (6) Modified Grant with sliding board or pivot method. By 11-17-2023 Outcome: In progress Goal: Patient will transfer sit to/from stand Description: Patient will transfer sit to/from stand with (6) Modified Grant By 11-17-2023. Outcome: In progress Problem: Decreased Ambulatory Skills Goal: Improve gait Description: Ambulate 100 meters using Front - wheeled walker with (6) Modified Grant By 11-17-2023. Outcome: In progress Goal: Improve gait on stairs Description: Ascend/descend 7 +7 stairs using Cane with (6) Modified Grant .By 11-17-2023 Outcome: In progress Problem: Decreased [...] least AD, stairs for home usage daily. ANTIQUE COLLECTOR Appropriate: Yes Carola Spence PTA 11/08/2023 Pager: [facility] TRANSFER MAN * Bill Olivera - 11/08/2023 12:37 PM CSTSummary: DC Planning DC Planning Patient is near medical readiness to DC to next level of care. It is not yet clear if she will be aKnapp candidate yet. Coat Padder spoke with patient's daughter over the phone. Also, had spoken with patient's father earlierin the week. We will start looking for TCUs around [place]. Also, she will do further research and call me back with more options. CC explained that we can't guarantee placement in their preferred place, this is up to facility, insurance coverage and bed availability. Also, Medicare patients will not be able to stay in the hospital indefinitely while we look for their preferred TCU. TRANSFER MAN * Victor M Enrique MD - 11/08/2023 12:00 PM CST Images from the original note were not included. SURGERY TRAUMA PROGRESS NOTE -PGY 1 Lucinda Romo Kennedy : 1940 Sex: female ASSESSMENT: 83 y.o. yo female with SDH R cerebral convexity and falx, scattered SAH and periventricular hemorrhage . The following services have been consulted PM&R, AMMONIUM NITRATE CRYSTALLIZER. Night Events: Nurse reported weakness of right leg overnight during neuro checks, upon examination by overnight resident determined decreased rom 2/2 to right ankle pain. -Pt required 3 prn doses of labetalol overnight to maintain goal of sbp<160 Day Events: -Patient cleared by AMMONIUM NITRATE CRYSTALLIZER and has resumed regular diet -Restarted prior oral bp regimen -CXR not concerning for pneumonia -Procal WNL -Started Naproxen BID and ANTIQUE COLLECTOR allopurinol for suspected gout flare PLAN: Diet: [...] Victor M Enrique MD, 11/09/2023 8:29 AM TRANSFER MAN * Sinai Brady PA-C - 11/08/2023 11:33 AM CST Physical Medicine & Rehabilitation Follow-Up Lucinda Kennedy : 1940 Sex: female Patient lethargic, rouses briefly to acknowledge video game script writer before returning to sleep. Unable to [...] II, and HLD, who was admitted to [facility] 11/04/2023 after being found unconscious at the [...] address self care, ADL's, adaptive equipment Continue AMMONIUM NITRATE CRYSTALLIZER to address speech, swallow, communication, cognition Regarding [...] of this note have been dictated using CloudLock dictation software. Please excuse any small craft operator errors and feel free to contact me regarding such errors or confusion regarding intended message. Sinai Brady PA-C Pager via [employer] TRANSFER MAN * Ruby Franklin, OTR/L - 11/08/2023 10:10 AM CST OT NOTE: Attempted OT session but pt was too lethargic to meaningful participate, falling asleep quickly andmumbling responses to questions. Will try to return later this PM as schedule allows (tomorrow willschedule session in the PM as RN reports she is usually more alert after 2:00pm). Aubree Franklin, OTR / L 11/08/2023 TRANSFER MAN * Sera Fleming, STEPHIE [facility] - 11/08/2023 9:26 AM CST Speech-Language Pathology Progress Note 11/08/2023 AMMONIUM NITRATE CRYSTALLIZER Recommendations Discharge Recommendations (AMMONIUM NITRATE CRYSTALLIZER): Post-acute placement recommended. Acute Rehab if meets admission criteria No known barriers to placement Barriers to Discharge (AMMONIUM NITRATE CRYSTALLIZER): NA - Post acute placement is recommended and no barriers to placement known. Post Discharge follow-up (AMMONIUM NITRATE CRYSTALLIZER): AMMONIUM NITRATE CRYSTALLIZER at post-acute placement Recommend PM&R Consult (AMMONIUM NITRATE CRYSTALLIZER): Yes, for assessment of post-acute placement needs. Pt appears to be a candidate for higher intensity rehab services. 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 Cognitive-linguistic assessment not completed. Once pt clears, suspect she will have very good participation as she participates well when more alert. Speech-Language Pathologist: Sera Fleming SLP [facility], 11/08/2023 9:26 AM Pager: [employer] TRANSFER MAN * Sinai Brady PA-C - 11/07/2023 3:57 PM CST Physical Medicine & Rehabilitation Follow-Up Lucinda Ryans : 1940 Sex: female Patient lethargic, rouses briefly and acknowledges video game script writer, answers a few questions but unclear [...] II, and HLD, who was admitted to [facility] 11/04/2023 after being found unconscious at the [...] address self care, ADL's, adaptive equipment Continue AMMONIUM NITRATE CRYSTALLIZER to address speech, swallow, communication, cognition Regarding [...] of this note have been dictated using CloudLock dictation software. Please excuse any small craft operator errors and feel free to contact me regarding such errors or confusion regarding intended message. Sinai Brady PA-C Pager via [employer] Total time spent on this encounter, on the date of service including pre-visit review of separatelyobtained history, cbjb-[id number] interaction performing medically appropriate physical exam, patient counseling/education, interpretation of diagnostic results, care coordination and documentation was 35 minutes. TRANSFER MAN * Jazmine Thompson V - 11/07/2023 3:09 PM CST CULTURAL ASSESSMENT: SUMMARY: This video game script writer saw pt. At 12:26 PM on 11/07/2023. Coat Padder introduced herself to pt.'s , and discussed with him on video game script writer's role. Coat Padder asked pt.'s if he had any questions, comments, or concerns regarding pt.'s care. Pt.'s mentioned that he doesn't really know anything, so he will wait and see if later he would need assistance from video game script writer. Coat Padder gave her contact information for any future questions, comments, or concerns. Jazmine Thompson V, 11/07/2023 3:27 PM TRANSFER MAN * Sera Fleming SLP [facility] - 11/07/2023 2:41 PM CST Speech-Language Pathology Progress Note 11/07/2023 AMMONIUM NITRATE CRYSTALLIZER Recommendations Discharge Recommendations (AMMONIUM NITRATE CRYSTALLIZER): Post-acute placement recommended. Acute Rehab if meets admission criteria No known barriers to placement Barriers to Discharge (AMMONIUM NITRATE CRYSTALLIZER): NA - Post acute placement is recommended and no barriers to placement known. Post Discharge follow-up (AMMONIUM NITRATE CRYSTALLIZER): AMMONIUM NITRATE CRYSTALLIZER at post-acute placement Recommend PM&R Consult (AMMONIUM NITRATE CRYSTALLIZER): Yes, for assessment of post-acute placement needs. Pt appears to be a candidate for higher intensity rehab services. 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 Safe to restart baseline diet of regular textures and thin liquids. Ensure pt is upright for all PO intake and is alert. Speech-Language Pathologist: Sera Fleming SLP [facility], 11/07/2023 2:44 PM Pager: [employer] TRANSFER MAN * Juan Loera MD - 11/07/2023 10:42 AM CST SURGERY TRAUMA PROGRESS NOTE -PGY 1 Lucinda Ryans : 1940 Sex: female ASSESSMENT: 83 y.o. yo female with SDH R cerebral convexity and falx, scattered SAH and periventricular hemorrhage . The following services have been consulted PM&R, AMMONIUM NITRATE CRYSTALLIZER. Night Events: -Pt reported to be pulling out lines overnight, given zyprexa 10 mg for agitation Day Events: -Patient diet changed to NPO due to aspiration concerns -Held oral antihypertensives to start tomorrow pending clearance from AMMONIUM NITRATE CRYSTALLIZER -Start Maintenance fluids LR 110ml/hr ending 11/08/23 AM -Hydralazine and Labetalol PRNs placed to maintain BP Goal of SBP<160 -Chest XR ordered due to new cough heard at bedside, of note mentioned lCarissa has had this cough for years -Procal [...] mother. Advised to speak with social worker health services to start paperwork. Updated family on plan. [...] on the Primary Treatment Team, click here. TRANSFER MAN Associated attestation - Mariama Catherine DO - 11/12/2023 2:36 PM DRY TRANSFER MAN FACULTY NOTE I saw and evaluated the [...] yet. Dt scheduling, unable to reschedule today. TRANSFER MAN * Sera Fleming, STEPHIE CCC - 11/07/2023 9:55 AM CST Speech-Language Pathology Progress Note 11/07/2023 AMMONIUM NITRATE CRYSTALLIZER Recommendations Discharge Recommendations (AMMONIUM NITRATE CRYSTALLIZER): Post-acute placement recommended. Acute Rehab if meets admission criteria No known barriers to placement Barriers to Discharge (AMMONIUM NITRATE CRYSTALLIZER): NA - Post acute placement is recommended and no barriers to placement known. Post Discharge follow-up (AMMONIUM NITRATE CRYSTALLIZER): AMMONIUM NITRATE CRYSTALLIZER at post-acute placement Recommend PM&R Consult (AMMONIUM NITRATE CRYSTALLIZER): Yes, for assessment of post-acute placement needs. Pt appears to be a candidate for higher intensity rehab services. Diet Recommendation: Current Diet : NPO Current Liquid: NPO Medication Administration: None orally Oral Hygiene: [place] teeth 2x/day Instrumental Assessment Needed: No Additional Referrals Needed: None Page AMMONIUM NITRATE CRYSTALLIZER if alertness levels improve. Will re-evaluate today [...] time. Education provided to at bedside re AMMONIUM NITRATE CRYSTALLIZER role and delirium dysphagia. 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 Pt is pending further imaging to ensure no change in TBI. Recommend continuing NPO at this time. RN to page AMMONIUM NITRATE CRYSTALLIZER with improved alertness levels and will see again today based on improvement. Speech-Language Pathologist: Sera Fleming, STEPHIE CCC, 11/07/2023 9:59 AM Pager: [employer] TRANSFER MAN * Ruby Franklin, OTR/L - 11/06/2023 4:39 [...] mgmt/ADL: 25 minutes Ruby Franklin, OTR/L Pager: [facility] OT Department TRANSFER MAN * Sera Fleming SLP CCC - 11/06/2023 2:32 PM CST Speech Language Pathology: Pt not seen today d/t staffing and time constraints. Will plan to see pt tomorrow for cognitive-linguistic dx/tx and swallow follow up. Sera Fleming SLP CCC, 11/06/2023 2:32 PM TRANSFER MAN * Shy Higuera - 11/06/2023 11:04 AM CST Was unable to draw blood because nurse requested lab to come back later. Notified YOVANY Cornejo at 11:04. Patient's visitor stated that these labs are duplicate, informed YOVANY Cornejo she will call lab if needed. Shy Higuera, 11/06/2023 11:04 AM TRANSFER MAN * Bill Olivera - 11/06/2023 10:56 AM CSTSummary: Care Coordination Assessment Care Coordination Assessment Expected DC Date: 11/07/2023 Social Information Lacquer Machine Feeder Used: None needed Decision Maker at Admission: [...] Risks for Readmission: Access to f/u appointments fitness manager will continue to follow until DC [...] DO Inbasket notification sent via Care Everywhere TRANSFER MAN * Karime Allison PA-C - 11/06/2023 8:06 [...] intact Motor: Follows commands x4 extremities, 5/5 sales support advisor strength and plantar/dorsiflexion bilaterally, no pronator drift [...] PRN Neurosurgery will follow peripherally, please contact escalator constructor resident with any questions or concerns. Staffed with Karime Sheikh PA-C, 11/06/2023 8:06 AM Neurosurgery ALICIA Discharge Milestones Documentation Discharge Milestones completed daily by the documenting provider on the Primary Treatment Team, click here. TRANSFER MAN * Derek Marie RN - 11/06/2023 12:58 [...] unit. Derek Marie RN, 11/06/2023 1:00 AM TRANSFER MAN * Gale Nassar MDIV - 11/05/2023 4:48 [...] Gale Nassar MDIV, 11/05/2023 4:49 PM Pager: [phone] TRANSFER MAN * Kindra Nichole RN - 11/05/2023 1:19 AM CST Upon admission, a Four Eyes Skin Inspection was completed with Rafa Goodman RN. Skin injuries were NOT present, and skin breakdown needing further assessment will be added to Avatar. Will implement interventions from Skin INJURY Bundle as appropriate. Kindra Nichole RN, 11/05/2023 1:20 AM TRANSFER MAN * Hernandez Mathur MD - 11/05/2023 12:[place] [address] [facility]#: [id number] PATIENT: LUCINDA KENNEDY : 1940 DATE DICTATED: 11/05/2023 SURGERY STAFF DAILY PROGRESS NOTE DATE OF SERVICE: 11/05/2023 I saw and evaluated the patient. I discussed management with residents, SPACE SYSTEMS OPERATIONS CRAFTSMAN, and PAs on the Neurosurgery team and [...] PhD Staff Physician Neurosurgery Service Received in Business Analyst Intern: 11/05/2023 17:07:17 M: /[id number] TX/MODL TRANSFER MAN documented in this encounter H&P Notes * [...] Team Notified by: Zipit Alert received at 6000 Tier Level page received at 5691 Staff Surgeon: Quinn Covarrubias MD Pediatric Patient < 15 years: No. [place] Trauma Team Time Out Completed: No HISTORY [...] NPO until final reads on radiography Consult AMMONIUM NITRATE CRYSTALLIZER and keep strict NPO if Age > [...] PGY1 [facility] Surgery Service TRANSFER MAN Associated attestation - Quinn Covarrubias MD - 11/05/2023 10:43 AM DRY TRANSFER MAN FACULTY NOTE I saw and evaluated the [...] Patient Risks discussed: Pain, bleeding and infection [place] protocol: Patient identity confirmed: Verbally with patient, [...] complications Priscilla Holcomb MD, 11/04/2023 11:43 PM TRANSFER MAN Associated attestation - Rito Graf MD - 11/05/2023 2:30 AM DRY TRANSFER MAN I was present for the entire procedure. [...] contact pharmacist on service at [facility] ([employer]) [phone]. If no response within needed timeframe, please contact central pharmacy via phone at [phone]. Planned discharge medications are: Medication List Medications [...] 3 capsules (225 mg) by mouth daily. TRANSFER MAN * Tamiko Westbrook LGSW - 11/15/2023 8:32 AM CSTAssociated Order(s): CONSULT TO MANAGER OF CREATIVE SERVICES Screw Machine Operator Note Acknowledged consult place for support with [...] mail: (I sent supporting resources as requested) TRANSFER MAN * Isabel Day - 11/14/2023 2:18 PM [...] was no one else in the room. Coat Padder greeted Patient, introduced herself, and offered music. Patient was pleasantly confused and asked Coat Padder to sit down. Coat Padder sat down and got out her guitar. Patient chatted with Coat Padder. Coat Padder played a song for Patient on guitar and sang. During the music, Patient looked at the television. After the song, Patient talked about the circumstances leading to her hospitalization and about a possibly surgery. Patient told Coat Padder she is waiting for her to return after checking on their house in [place]. Coat Padder played a second song, After the music, Patient commented that the music was very beautiful. Coat Padder ended the session and Patient thanked Coat Padder. Goals Addressed: Psychosocial Support and Mood Enhancement Plan: Coat Padder will continue to offer music therapy to Patient when possible. Isabel Day, 11/14/2023 2:18 PM TRANSFER MAN * Kasey Ennis, PT - 11/06/2023 9:02 [...] History of Falling Z 91.81 PRECAUTIONS [place] Lacquer Machine Feeder Used: None needed ACTIVITY Up with Assist [...] math, 92, 102) hospital, Alert, and Cooperative [place] OBJECTIVE Initial patient presentation upon PT arrival: [...] EOB upon arrival, eating breakfast. She seems [place], slightly confused but cooperative. She has good [...] AD, stairs for home usage daily. . ANTIQUE COLLECTOR Appropriate: Yes Participated in goal setting and treatment planning: Patient, Outreach Associate/Significant Other Agrees with goals and treatment plan: Patient - Yes, Caregiver/Significant Other - Yes. Kasey Ennis, PT 11/06/2023 Pager: [facility] PT Department TRANSFER MAN * Devyn Jamil MD - 11/06/2023 7:41 AM CST Images from the original note were not included. Physical Medicine & Rehabilitation Consultation Patient Name: Lucinda Kennedy : 1940 Medical Record: [id number] PRIMARY CARE PHYSICIAN: No primary care provider on file. REQUESTING PHYSICIAN: Quinn Covarrubias MD REASON FOR CONSULT: I was asked to evaluate this patient regarding their rehabilitation needs and appropriateness for acute rehabilitation. HISTORY OF PRESENT PROBLEM I personally reviewed the patient's medical record from the most recent [facility] admission including yet not limited to notes as below and summarized it below in conjunction with interview with the patient and patient's . Lucinda Kennedy is a 83 y.o. RHD female with chronic medical conditions including HTN, DM II, and HLD, who was admitted to [facility] 11/04/2023 after being found unconscious at the [...] she couldn't come up with the name. AMMONIUM NITRATE CRYSTALLIZER (11/05/23) Functional oropharyngeal swallow. Safe for regular [...] in a 2 story home with 1 DYLNA. There are handrails present. Bedroom is on [...] of the thoracic or lumbar spine. 2. Qwkb-qt-dvlwkoog lumbar spondylosis without suspected high-grade spinal canal or neural foraminal narrowing. CT L-Spine (11/04/23) IMPRESSION Impression: 1. No suspected acute fracture or dislocation of the thoracic or lumbar spine. 2. Oahn-bx-srumcgaq lumbar spondylosis without suspected high-grade spinal canal [...] II, and HLD, who was admitted to [facility] 11/04/2023 after being found unconscious at the [...] address self care, ADL's, adaptive equipment Continue AMMONIUM NITRATE CRYSTALLIZER to address speech, swallow, communication, cognition Regarding [...] occur at the acute level such as [place] where she can participate in 3hrs/day and [...] service including pre-visit review of separatelyobtained history, efkb-iz-rbxs interaction performing medically appropriate physical exam, patient counseling/education, interpretation of diagnostic results, care coordination and documentation was 60 minutes. TRANSFER MAN * Ruby Franklin, OTR/L - 11/05/2023 1:53 [...] 10 minutes Therapist: Ruby Franklin OTR/L Pager: [facility] Occupational Therapy Department TRANSFER MAN * Reynaldo Anderson PA-C - 11/05/2023 12:41 [...] though 2 of 3 serve in the ([employer] and one may be a Loan Assistant?). She jokes about how long she has been to [place]. 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 Seen this afternoon, she is not oriented to time or place. No family present. She does indicate to me she prefers to go by [facility] [place]. She was able to tell me a lot about her 3 grandsons that make her veryproud, sounds as though 2 of 3 serve in the ([employer] and one may be a Loan Assistant?). She jokes about how long she has been to [place]. 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 TRANSFER MAN * Sera Fleming SLP [facility] - 11/05/2023 9:56 AM CST SPEECH-LANGUAGE PATHOLOGY CONSULTATION AMMONIUM NITRATE CRYSTALLIZER Recommendations Discharge Recommendations (AMMONIUM NITRATE CRYSTALLIZER): Post-acute placement recommended. Acute Rehab if meets admission criteria No known barriers to placement Barriers to Discharge (AMMONIUM NITRATE CRYSTALLIZER): NA - Post acute placement is recommended and no barriers to placement known. Post Discharge follow-up (AMMONIUM NITRATE CRYSTALLIZER): AMMONIUM NITRATE CRYSTALLIZER at post-acute placement Recommend PM&R Consult (AMMONIUM NITRATE CRYSTALLIZER): Yes, for assessment of post-acute placement needs. Pt appears to be a candidate for higher intensity rehab services. Diet Recommendation: Current Diet : Regular Current Liquid: Thin liquids Medication Administration: Medications with thin liquid Aspiration Precautions: Upright with all eating and drinking Oral Hygiene: [place] teeth 2x/day Positioning Techniques: Seat fully upright [...] Admitted to SICU for close neuro monitoring. AMMONIUM NITRATE CRYSTALLIZER consulted to evaluate a marge function. SUBJECTIVE Barriers to Learning: No caregiver present;Cognitive linguistic deficit Barriers to Discharge (AMMONIUM NITRATE CRYSTALLIZER): NA - Post acute placement is recommended [...] intact. EDUCATION Audience: Patient Education: results of assessment;AMMONIUM NITRATE CRYSTALLIZER scope of practice;AMMONIUM NITRATE CRYSTALLIZER plan of care;recommendation for additional therapy Speech-Language Pathologist: Sera Fleming, STE[facility], 11/05/2023 9:56 AM Pager: [employer] TRANSFER MAN * Cale Thompson MD - 11/05/2023 1:00 AM CSTAssociated Order(s): CONSULT TO ELECTRICAL AND RADIO MOCK UP MECHANIC SICU CONSULT - G3 Lucinda Ryans : [...] pulmonary toilet Gastrointestinal/Nutrition: Assessment: NPO, will need AMMONIUM NITRATE CRYSTALLIZER clearance prior to diet Plan: - Continue NPO - AMMONIUM NITRATE CRYSTALLIZER Electrolytes: Assessment: otherwise grossly within normal limits. [...] Component Value Date/Time PHART 7.37 11/05/2023 0118 DQM5RLZ 43 11/05/2023 0118 PO2ART 83 11/05/2023 0118 CQV2SBD 25 11/05/2023 0118 [id number] 96 11/05/2023 0118 BEART -0.3 11/05/2023 0118 Labs and imaging reviewed. Art Thompson MD - PGY-3 Surgery Service Pager: [employer] This patient was seen in consultation for critical care management requested by Devin Dougherty MD;P* TRANSFER MAN Associated attestation - Quinn Covarrubias MD - 11/05/2023 10:44 AM DRY TRANSFER MAN FACULTY NOTE I saw and evaluated the [...] elbow flex/ext. 5/5 wrist flex/ext. 5/5 hand sales support advisor. LUE: 5/5 shoulder abduction. 5/5 elbow flex/ext. 5/5 wrist flex/ext. 5/5 hand sales support advisor. Lower Extremities: RLE: 5/5 hip flexion. 5/5 knee flex/ext. 5/5 ankle plantar-/dorsiflexion. 5/5 EHL. LLE: 5/5 hip flexion. 5/5 knee flex/ext. 5/5 ankle plantar-/dorsiflexion. 5/5 EHL Sensory: Sensation intact in all 4 extremities REVIEW OF LABORATORY, PATHOLOGY, AND RADIOLOGY DATA: [facility] Lab Results Component Value Date/Time NA 144 [...] independently reviewed: Laboratory results and Radiology images TRANSFER MAN Associated attestation - Marina Shaffer MD - 11/05/2023 4:13 PM DRY TRANSFER MAN 83 year old woman presented after presumed [...] Oximetry - Continuous (ICU) Oxygen Consult to Acid Supervisor CONSULT TO PALLIATIVE CARE Straight Cath Protocol [...] RN in EDSTAB 2 at 11/04/2023 22:55:31 DRY TRANSFER MAN by Eleni Spring MLS. ED HEMOGLOBIN TOTAL (ED ONLY) - Abnormal Hgb 10.3 (*) LACTATE (LACTIC ACID) - Abnormal Lactate 2.7 (*) Narrative: Send specimen on ice! PTT (APTT) - Abnormal APTT 22.9 (*) ANTI XA HEPARIN UNFRACTIONATED - Abnormal Anti XA Hep U <0.04 (*) URINALYSIS,TOTAL - Abnormal Color COLORLESS Appearance CLEAR Urine Glucose 100 (*) Bili UA NEGATIVE Ketones NEGATIVE Specific Garrett 1.036 (*) Blood Ur NEGATIVE PH Urine 7.5 (*) Protein Ur TRACE Urobilinogen NORMAL Nitrite Ur NEGATIVE Leuk Est NEGATIVE WBC Ur 0-5 RBC Ur 0-3 SQ EPITH 0-5 Urinalysis Performed at: [facility] FIBRINOGEN Fibrinogen 288 PRECAUTIONARY TUBE Prec Tube [...] hemorrhage Vanna Parekh PA-C, 11/05/2023 3:11 AM TRANSFER MAN * Kathy Worthington RN - 11/05/2023 12:09 AM CST Bed: A08 Expected date: Expected time: Means of arrival: Comments: Stab 2 TRANSFER MAN * Ana Ordaz RN - 11/04/2023 10:51 PM CST ED-stereotype finisher-Note: --Pertinent Information: Pt arrives to ED after fall down flight of stairs. --Pt's , daughter and son in law were on scene and are all coming to [facility]. --Family contact: Daughter Zain #[phone] / Son in Law # [phone] Ana Ordaz RN TRANSFER MAN * Rafa Hutchins RN - 11/04/2023 10:40 PM CST BIBA from home after called when he heard her fall downstairs. Upon EMS arrival, patient was altered and lethargic. reports to EMS that patient is on blood thinners. 18g PIV left AC, 20g PIV right forearm. BG 272. Patient arrives to STAB Room awake, disoriented to time and situation. TRANSFER MAN documented in this encounter Miscellaneous Notes * Discharge non-MD/non-AVERY Summaries - Kasey Ennis, PT - 11/16/2023 9:19 AM CST Physical Therapy Inpatient Discharge Summary Lucinda Kennedy [id number] Diagnosis Patient Active Problem List Diagnosis Fall, [...] transfer bed to/from chair with (6) Modified Grant with sliding board or pivot method. By 11-17-2023 Outcome: In progress Goal: Patient will transfer sit to/from stand Description: Patient will transfer sit to/from stand with (6) Modified Grant By 11-17-2023. Outcome: In progress Problem: Decreased Ambulatory Skills Goal: Improve gait Description: Ambulate 100 meters using Front - wheeled walker with (6) Modified Grant By 11-17-2023. Outcome: In progress Goal: Improve gait on stairs Description: Ascend/descend 7 +7 stairs using Cane with (6) Modified Grant .By 11-17-2023 Outcome: In progress Problem: Decreased Functional Motor Skills - PT Goal: Patient demonstrates improved balance Description: Pt to score at least 45/56 Mitchell Balance to indicate decreased risk for falls By 11-17-2023 Outcome: In progress Plan: Discharge to Rehab Facility Physical Therapist: Kasey Ennis, PT Date: 11/17/2023 Pager: BULX PT Department TRANSFER MAN * Discharge non-MD/non-AVERY Summaries - Bill Olivera - 11/16/2023 7:46 AM DRY TRANSFER MAN Summary: DC to TCU Care Coordination Discharge Note Expected DC Date: 11/16/2023 Expected DC Time: 9 AM Final Discharge Destination: Destination Coordination complete. Service Provider Selected Services Address Phone Fax Theresa Yusuf, A [facility] [address] [place] [address] [phone] Summary: Patient has been accepted to continue rehabing at the aforementioned post acute facility. Family onboard with plan. WC ride has been ordered for Fri at 9 am Medical team is aware. They will work writing DC orders. CC faxed DC orders to TCU via [employer]. Medical team is aware any controlled substances must be printed and signed to be sent in physical form to the TCU. Also, [employer] HRMS DEVELOPER will fax it to TCU temi. Bedside nurse please confirm this is done. A TelFrameri[employer] thread has been started. CC will continue to follow until DC. Please use Gl[employer] for any further questions. TRANSFER MAN * Nursing Assessment - Karolyn Jacob RN [...] at bedside and sitting quietly at bedside TRANSFER MAN * Nursing Assessment - Lila Gaines, RN [...] Psychosocial Assessment Within Defined Limits except for: TRANSFER MAN * Discharge non-MD/non-AVERY Summaries - Nayeli Alvarado, AMMONIUM NITRATE CRYSTALLIZER [facility] - 11/15/2023 4:35 PM CST SPEECH-LANGUAGE PATHOLOGY Discharge Summary 11/15/2023 AMMONIUM NITRATE CRYSTALLIZER Recommendations Discharge Recommendations (AMMONIUM NITRATE CRYSTALLIZER): Post-acute placement recommended. Acute Rehab if meets admission criteria No known barriers to placement Barriers to Discharge (AMMONIUM NITRATE CRYSTALLIZER): NA - Post acute placement is recommended and no barriers to placement known. Post Discharge follow-up (AMMONIUM NITRATE CRYSTALLIZER): AMMONIUM NITRATE CRYSTALLIZER at post-acute placement Recommend PM&R Consult (AMMONIUM NITRATE CRYSTALLIZER): Yes, for assessment of post-acute placement needs. Pt appears to be a candidate for higher intensity rehab services. Diet Recommendation: Current Diet : Regular Current Liquid: Thin liquids Medication Administration: Medications with thin liquid Aspiration Precautions: Upright with all eating and drinking Oral Hygiene: [place] teeth 2x/day Positioning Techniques: Seat fully upright [...] hemianopsia. EDUCATION Audience: Patient Education: results of assessment;AMMONIUM NITRATE CRYSTALLIZER scope of practice;AMMONIUM NITRATE CRYSTALLIZER plan of care;recommendation for additional therapy Prognosis is good for increasing independence with iADLs. Speech-Language Pathologist: Nayeli Alvarado, AMMONIUM NITRATE CRYSTALLIZER [facility], 11/15/2023 4:35 PM Pager: Tel[employer] TRANSFER MAN * Discharge non-MD/non-AVERY Summaries - Sharri Price, OTR/L - 11/15/2023 2:12 PM CST [facility] Occupational Therapy Discharge Summary Lucinda Kennedy 11/15/2023 [...] subacute rehab. Patient Name: Lucinda Kennedy MR#: [id number] Date of : 1940 Age: 83 y.o. [...] none (11/05/23 1400) Prior Level of Function (ANTIQUE COLLECTOR): ADLs/IADLs: No assistance required (Independent or modified [...] goals. Occupational Therapist: [facility] [place] OT Department TRANSFER MAN * Nursing Assessment - Dariana Alvarado RN - 11/15/2023 4:49 AM CST Nursing Assessment Head to Toe Head to Toe Assessment Shift Summary Shift [id number]: Pt is alert and oriented to self [...] correctly-picks up walker and carries it. Dariana Alvraado RN, 11/15/2023 4:49 AM Neurologic/Cognitive Assessment Within [...] for: Psychosocial Assessment: Observed Patient Behaviors: Restless TRANSFER MAN * Nursing Assessment - Tone Rosario RN [...] for: Psychosocial Assessment: Observed Patient Behaviors: Restless TRANSFER MAN * Nursing Assessment - Adelso Huber RN - 11/14/2023 4:30 PM DRY TRANSFER MAN Nursing Assessment Head to Toe Head to [...] Behavior: at bedside and attentive to patient TRANSFER MAN * Nursing Assessment - Adelso Huber RN - 11/14/2023 10:17 AM DRY TRANSFER MAN Nursing Assessment Head to Toe Head to [...] Behavior: at bedside and attentive to patient TRANSFER MAN * Nursing Assessment - Luisa Pablo, RN [...] Behavior: at bedside and attentive to patient TRANSFER MAN * Nursing Assessment - Sanjuana Reyes, RN [...] patient and participating in care Comments: Spouse TRANSFER MAN * Nursing Assessment - Nikole Diego RN [...] Behavior: at bedside and attentive to patient TRANSFER MAN * Nursing Assessment - Lila Reed RN [...] 6 Psychosocial Within Defined Limits Comments: present TRANSFER MAN * Nursing Assessment - Bianca Bell RN - 11/12/2023 2:17 PM DRY TRANSFER MAN Nursing Assessment Head to Toe Head to [...] Emotional State: Acceptance Family Behavior: not present TRANSFER MAN * Nursing Assessment - Teresita Vidales RN [...] 1640 -- 5 Psychosocial Within Defined Limits TRANSFER MAN * Nursing Assessment - Teresita Vidales RN [...] Emotional State: Acceptance Family Behavior: not present TRANSFER MAN * Nursing Assessment - Nikole Diego RN [...] as he expressed her confusion and decline TRANSFER MAN * Nursing Assessment - Carolina Awan RN [...] Cardiac Assessment Within Defined Limits except for: [facility] - remote telemetry Respiratory Assessment Within Defined [...] 1640 -- 4 Psychosocial Within Defined Limits TRANSFER MAN * Nursing Assessment - Carolina Awan RN - 11/10/2023 9:30 PM CST Nursing Assessment Head to Toe Head to Toe Assessment Shift Summary Shift Summary Neurologic/Cognitive Assessment Within Defined Limits except for: Orientation: disoriented to place, disoriented to time and disoriented to situation HEENT Within Defined Limits Cardiac Assessment Within Defined Limits except for: [facility] - remote telemetry Respiratory Assessment Within Defined [...] 1640 -- 4 Psychosocial Within Defined Limits TRANSFER MAN * Nursing Assessment - Elvira Benitez RN [...] for: Psychosocial Assessment: Verbalized Emotional State: Acceptance TRANSFER MAN * Nursing Assessment - Zaira Bellamy, RN [...] Pt stated she is going home today, Coat Padder reoriented to POC. Tylenol prn given for [...] for: Psychosocial Assessment: Verbalized Emotional State: Acceptance TRANSFER MAN * Nursing Assessment - Quynh Jenkins RN - 11/10/2023 6:46 AM CST Nursing Assessment Head to Toe Head to Toe Assessment Shift Summary Shift Summary Neurologic/Cognitive Assessment Within Defined Limits except for: Orientation: disoriented to place, disoriented to time and disoriented to situation Frequent Neuro Assessments have been documented in the flowsheets HEENT Within Defined Limits Cardiac Assessment Within Defined Limits except for: [facility] - remote telemetry Pacemaker: Pacemaker: No Respiratory [...] 1640 -- 3 Psychosocial Within Defined Limits TRANSFER MAN * Nursing Assessment - Anita Keating RN [...] Defined Limits except for: Chest Pain: No [facility] - remote telemetry Pacemaker: Pacemaker: No Respiratory [...] 3 Psychosocial Within Defined Limits Shift Summary TRANSFER MAN * Nursing Assessment - Anita Keating RN - 11/09/2023 11:44 AM CST Nursing Assessment Head to Toe Head to Toe Assessment Shift Summary Neurologic/Cognitive Assessment Within Defined Limits except for: Cognition: poor attention/concentration Level of Consciousness: Lethargic Frequent Neuro Assessments have been documented in the flowsheets HEENT Within Defined Limits Cardiac Assessment Within Defined Limits except for: Chest Pain: No [facility] - remote telemetry Pacemaker: Pacemaker: No Respiratory [...] 1640 -- 2 Psychosocial Within Defined Limits TRANSFER MAN * Nursing Assessment - Mayte Grover RN [...] Cardiac Assessment Within Defined Limits except for: [facility] - remote telemetry Respiratory Assessment Within Defined [...] 1640 -- 2 Psychosocial Within Defined Limits TRANSFER MAN * Nursing Assessment - Chucho Blair, RN [...] pivot to commode. Meds whole with water, [id number]-[id number]-time. Otherwise resting between cares with family present. Chucho Blair, RN, 11/08/2023 7:01 PM Neurologic/Cognitive Assessment Within Defined Limits except for: Cognition: poor attention/concentration Level of Consciousness: Lethargic Frequent Neuro Assessments have been documented in the flowsheets HEENT Within Defined Limits Cardiac Assessment Within Defined Limits except for: [facility] - remote telemetry Respiratory Assessment Within Defined [...] 1640 -- 2 Psychosocial Within Defined Limits TRANSFER MAN * Nursing Assessment - Tone Rosario RN [...] 1640 -- 1 Psychosocial Within Defined Limits TRANSFER MAN * Nursing Assessment - Tone Rosario RN [...] 1640 -- 1 Psychosocial Within Defined Limits TRANSFER MAN * Nursing Assessment - Chucho Blair, RN [...] Cardiac Assessment Within Defined Limits except for: [facility] - remote telemetry Respiratory Assessment Within Defined [...] 1640 -- 1 Psychosocial Within Defined Limits TRANSFER MAN * Nursing Assessment - Chucho Blair, RN [...] less than 1 Psychosocial Within Defined Limits TRANSFER MAN * Nursing Assessment - Tone Rosario RN [...] less than 1 Psychosocial Within Defined Limits TRANSFER MAN * Nursing Assessment - Tone Rosario RN [...] less than 1 Psychosocial Within Defined Limits TRANSFER MAN * Nursing Assessment - Chantal Higgins RN [...] less than 1 Psychosocial Within Defined Limits TRANSFER MAN * Nursing Assessment - Chantal Higgins RN [...] 0710 -- 1 Psychosocial Within Defined Limits TRANSFER MAN * Nursing Assessment - Musa De La Torre RN - 11/06/2023 4:25 AM DRY TRANSFER MAN Nursing Assessment Head to Toe Head to [...] Cardiac Assessment Within Defined Limits except for: [facility] - remote telemetry Respiratory Within defined limits [...] attentive to patient and interacting with patient TRANSFER MAN * Transfer - Musa De La Torre RN - 11/06/2023 12:20 AM CST Images from the original note were not included. TRANSFER IN NOTE D: Patient transferred in to [place] [id number] from [facility] at 2320. Patient condition on arrival: [...] De La Torre RN, 11/06/2023 12:22 AM TRANSFER MAN * Nursing Assessment - Derek Marie RN - 11/05/2023 10:33 PM CST Nursing Assessment Head to Toe Head to Toe Assessment Shift Summary Shift Summary Neurologic/Cognitive Assessment Within Defined Limits except for: Cognition: poor judgement/safety awareness Level of Consciousness: Lethargic Arousal Level: Arouses to pain HEENT Assessment Within Defined Limits except for: Cardiac Assessment Within Defined Limits except for: Heart sounds: S1, S2 [facility] - bedside telemetry ECG Rhythm: normal sinus [...] interacting with patient and participating in care TRANSFER MAN * Nursing Assessment - Eloise Randolph RN - 11/05/2023 8:00 PM CST Nursing Assessment Head to Toe Head to Toe Assessment Shift Summary SHIFT [id number] NEURO - Patient Alert to self, and [...] Cardiac Assessment Within Defined Limits except for: [facility] - bedside telemetry ECG Rhythm: normal sinus [...] with patient and sitting quietly at bedside TRANSFER MAN * Nursing Assessment - José Urbano RN [...] Cardiac Assessment Within Defined Limits except for: [facility] - bedside telemetry Lead Monitored: Lead II ECG Rhythm: normal sinus rhythm DE Interval (sec): 0.16 QRS Interval (sec): 0.13 [...] less than 1 Psychosocial Within Defined Limits TRANSFER MAN * Nursing Assessment - Eloise Randolph RN - 11/05/2023 4:00 PM CST Nursing Assessment Head to Toe Head to Toe Assessment Shift Summary Shift Summary Neurologic/Cognitive Assessment Within Defined Limits except for: Arousal Level: Arouses to voice Orientation: disoriented to time and disoriented to situation Mood/Behavior: Calm HEENT Within Defined Limits Cardiac Assessment Within Defined Limits except for: [facility] - bedside telemetry ECG Rhythm: normal sinus [...] with patient and sitting quietly at bedside TRANSFER MAN * Nursing Assessment - José Urbano RN [...] Cardiac Assessment Within Defined Limits except for: [facility] - bedside telemetry Lead Monitored: Lead II ECG Rhythm: normal sinus rhythm DE Interval (sec): 0.16 QRS Interval (sec): 0.13 [...] less than 1 Psychosocial Within Defined Limits TRANSFER MAN * Trauma Tertiary Exam - Jesusita Aiken APRN, EMILY - 11/05/2023 7:08 AM CST TRAUMA TERTIARY EXAM - FOOT TENDER First Exam Lucinda Kennedy : 1940 Sex: [...] of the thoracic or lumbar spine. 2. 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 [email or web address] 1. In the past year: Have you felt you should cut down on your drinking? no 2. In the past year: Have people annoyed you by criticizing your drinking? no 3. In the past year: Have you felt bad or guilty about your drinking? no 4. 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 no [place] numb or detached from others, activities, or [...] SAH risk for bleeding Diet: NPO until AMMONIUM NITRATE CRYSTALLIZER eval Activity: Up ad nia C/T/L-Spine status: cleared Weight-bearing status: no restrictions Therapy: PT, OT, OT for cognitive screen, and AMMONIUM NITRATE CRYSTALLIZER Consulting Teams(s) Plan and/or Follow-up Recommendations: Neurosurgery: [...] recommendations, and To be determined. Jesusita Aiken, POLISHER AND BUFFER, SPACE SYSTEMS OPERATIONS CRAFTSMAN 11/05/2023 07:08 TRANSFER MAN * Nursing Assessment - Rafa Tineo RN [...] Cardiac Assessment Within Defined Limits except for: [facility] - bedside telemetry Lead Monitored: Lead II [...] Behavior: at bedside and interacting with patient TRANSFER MAN * Nursing Assessment - Rafa Tineo RN [...] Cardiac Assessment Within Defined Limits except for: [facility] - bedside telemetry Lead Monitored: Lead II [...] Behavior: at bedside and interacting with patient TRANSFER MAN * Interdisciplinary Note - Amelia Lobo MD - 11/05/2023 12:16 AM DRY TRANSFER MAN Patient oriented to self, date, family and medical history. Discussed code status with patient. Shewishes to be full code accepting of CPR and intubation at this time. Amelia Lobo MD, MPH 11/05/2023 06:17 PGY-5 General Surgery Resident Pager: [phone] or via BULX TRANSFER MAN * Interval Note Provider - Priscilla Holcomb MD - 11/04/2023 11:44 PM DRY TRANSFER MAN PROCEDURES I performed the following procedures: Art Line Priscilla Holcomb MD, 11/04/2023 11:44 PM TRANSFER MAN * ED Faculty Note - Devin Dougherty [...] placement Devin Dougherty MD, 11/04/2023 11:13 PM TRANSFER MAN * ED Stabilization Note - Norm Hernandez [...] Disposition Admit to SICU Signed out to [facility] Procedures I performed the following procedures: Adult Trauma Resuscitation. Norm Hernandez MD, PGY-3 Emergency Medicine Resident TRANSFER MAN documented in this encounter Plan of Treatment Scheduled Referrals Name Type Priority Associated Diagnoses Orde r Schedule REFERRAL TO TRAUMATIC BRAIN INJURY Referral Routine Fall, initial encounter SDH (subdural hematoma) (CMS) SAH (subarachnoid hemorrhage) (CMS/HHS) Traumatic brain injury with loss of consciousness, initial encounter ([facility]) Ordered: 11/08/2023 documented as of this encounter Procedures Procedure Name Priority Date/Time Associated Diagnosis Comments PANEL BASIC METABOLIC (BMP) Routine 11/16/2023 7:22 AM DRY TRANSFER MAN POC GLUCOSE Routine 11/16/2023 6:58 AM DRY TRANSFER MAN POC GLUCOSE Routine 11/15/2023 9:15 PM DRY TRANSFER MAN POC GLUCOSE Routine 11/15/2023 4:09 PM DRY TRANSFER MAN POC GLUCOSE Routine 11/15/2023 12:46 PM DRY TRANSFER MAN PANEL BASIC METABOLIC (BMP) Routine 11/15/2023 7:39 AM DRY TRANSFER MAN POC GLUCOSE Routine 11/15/2023 6:11 AM DRY TRANSFER MAN POC GLUCOSE Routine 11/14/2023 9:02 PM DRY TRANSFER MAN POC GLUCOSE Routine 11/14/2023 4:21 PM DRY TRANSFER MAN POC GLUCOSE Routine 11/14/2023 12:19 PM DRY TRANSFER MAN PANEL BASIC METABOLIC (BMP) Routine 11/14/2023 8:59 AM DRY TRANSFER MAN POC GLUCOSE Routine 11/14/2023 8:11 AM DRY TRANSFER MAN POC GLUCOSE Routine 11/13/2023 9:15 PM DRY TRANSFER MAN POC GLUCOSE Routine 11/13/2023 4:03 PM DRY TRANSFER MAN POC GLUCOSE Routine 11/13/2023 11:21 AM DRY TRANSFER MAN PANEL BASIC METABOLIC (BMP) Routine 11/13/2023 6:41 AM DRY TRANSFER MAN POC GLUCOSE Routine 11/13/2023 6:31 AM DRY TRANSFER MAN POC GLUCOSE Routine 11/12/2023 9:21 PM DRY TRANSFER MAN POC GLUCOSE Routine 11/12/2023 4:12 PM DRY TRANSFER MAN PANEL BASIC METABOLIC (BMP) Timed 11/12/2023 1:01 PM DRY TRANSFER MAN POC GLUCOSE Routine 11/12/2023 12:14 PM DRY TRANSFER MAN POC GLUCOSE Routine 11/12/2023 6:09 AM DRY TRANSFER MAN POC GLUCOSE Routine 11/11/2023 8:48 PM DRY TRANSFER MAN POC GLUCOSE Routine 11/11/2023 4:11 PM DRY TRANSFER MAN POC GLUCOSE Routine 11/11/2023 11:47 AM DRY TRANSFER MAN PHOSPHORUS Routine 11/11/2023 6:09 AM DRY TRANSFER MAN PANEL BASIC METABOLIC (BMP) Routine 11/11/2023 6:09 AM DRY TRANSFER MAN MAGNESIUM Routine 11/11/2023 6:09 AM DRY TRANSFER MAN TC LAB BLOOD DRAW BY VENIPUNCTURE Routine 11/11/2023 6:09 AM DRY TRANSFER MAN POC GLUCOSE Routine 11/10/2023 8:58 PM DRY TRANSFER MAN POC GLUCOSE Routine 11/10/2023 4:16 PM DRY TRANSFER MAN POC GLUCOSE Routine 11/10/2023 11:15 AM DRY TRANSFER MAN PHOSPHORUS Routine 11/10/2023 6:17 AM DRY TRANSFER MAN PANEL BASIC METABOLIC (BMP) Routine 11/10/2023 6:17 AM DRY TRANSFER MAN MAGNESIUM Routine 11/10/2023 6:17 AM DRY TRANSFER MAN PC LAB CBC/PLT Routine 11/10/2023 6:17 AM DRY TRANSFER MAN POC GLUCOSE Routine 11/09/2023 9:41 PM DRY TRANSFER MAN POC GLUCOSE Routine 11/09/2023 3:58 PM DRY TRANSFER MAN ANTI XA ASSAY LMW HEPARIN Timed 11/09/2023 2:18 PM DRY TRANSFER MAN POC GLUCOSE Routine 11/09/2023 11:28 AM DRY TRANSFER MAN XR FOOT RIGHT 3 V AP/OBL/LAT* Routine 11/09/2023 10:36 AM DRY TRANSFER MAN POC GLUCOSE Routine 11/09/2023 5:46 AM DRY TRANSFER MAN PC VALPROIC ACID LEVEL DEPAHOTE Routine 11/09/2023 5:41 AM DRY TRANSFER MAN PHOSPHORUS Routine 11/09/2023 5:41 AM DRY TRANSFER MAN PANEL BASIC METABOLIC (BMP) Routine 11/09/2023 5:41 AM DRY TRANSFER MAN MAGNESIUM Routine 11/09/2023 5:41 AM DRY TRANSFER MAN PC LAB CBC/PLT Routine 11/09/2023 5:41 AM DRY TRANSFER MAN POC GLUCOSE Routine 11/08/2023 8:40 PM DRY TRANSFER MAN PHOSPHORUS Routine 11/08/2023 4:20 PM DRY TRANSFER MAN PANEL BASIC METABOLIC (BMP) Routine 11/08/2023 4:20 PM DRY TRANSFER MAN MAGNESIUM Routine 11/08/2023 4:20 PM DRY TRANSFER MAN TC LAB BLOOD DRAW BY VENIPUNCTURE Routine 11/08/2023 4:20 PM DRY TRANSFER MAN POC GLUCOSE Routine 11/08/2023 3:56 PM DRY TRANSFER MAN POC GLUCOSE Routine 11/08/2023 11:03 AM DRY TRANSFER MAN XR CHEST 1 VIEW AP OR PA* Routine 11/08/2023 6:30 AM DRY TRANSFER MAN POC GLUCOSE Routine 11/08/2023 6:22 AM DRY TRANSFER MAN POC GLUCOSE Routine 11/07/2023 9:34 PM DRY TRANSFER MAN POC GLUCOSE Routine 11/07/2023 4:06 PM DRY TRANSFER MAN POC GLUCOSE Routine 11/07/2023 11:45 AM DRY TRANSFER MAN XR CHEST 2 VIEWS PA + LAT* Routine 11/07/2023 10:07 AM DRY TRANSFER MAN PC PROCALCITONIN (PCT) Routine 8:34 AM DRY TRANSFER MAN PHOSPHORUS Routine 11/07/2023 8:34 AM DRY TRANSFER MAN PANEL BASIC METABOLIC (BMP) Routine 11/07/2023 8:34 AM DRY TRANSFER MAN MAGNESIUM Routine 11/07/2023 8:34 AM DRY TRANSFER MAN PC LAB CBC/PLT Routine 11/07/2023 8:34 AM DRY TRANSFER MAN POC GLUCOSE Routine 11/07/2023 5:45 AM DRY TRANSFER MAN POC GLUCOSE Routine 11/06/2023 9:21 PM DRY TRANSFER MAN PHOSPHORUS Timed 11/06/2023 1:06 PM DRY TRANSFER MAN PANEL BASIC METABOLIC (BMP) Timed 11/06/2023 1:06 PM DRY TRANSFER MAN MAGNESIUM Timed 11/06/2023 1:06 PM DRY TRANSFER MAN PC GASES,BLOOD,ANY COMB OF PH,PCD2,PO2,CO2,HCO2 Routine 11/06/2023 1:06 PM DRY TRANSFER MAN PC LAB CBC/PLT Timed 11/06/2023 1:06 PM DRY TRANSFER MAN POC GLUCOSE Routine 11/06/2023 1:04 PM DRY TRANSFER MAN POC GLUCOSE Routine 11/06/2023 10:49 AM DRY TRANSFER MAN PC MAGNESIUM, SERUM Routine 11/06/2023 6 :31 AM DRY TRANSFER MAN PC PHOSPHORUS INORGANIC(PHOSPHATE) Routine 11/06/2023 6:31 AM DRY TRANSFER MAN PC LAB CBC/PLT Routine 11/06/2023 6:31 AM DRY TRANSFER MAN TC LAB BLOOD DRAW BY VENIPUNCTURE Routine 11/06/2023 6:31 AM DRY TRANSFER MAN PROTHROMBIN (PT) & INR Timed 6:31 AM DRY TRANSFER MAN PC LAB GLYCOSYLATED HGB Routine 11/06/2023 6:31 AM DRY TRANSFER MAN POC GLUCOSE Routine 11/06/2023 5:39 AM DRY TRANSFER MAN POC GLUCOSE Routine 11/05/2023 4:54 PM DRY TRANSFER MAN MAGNESIUM Routine 11/05/2023 4:48 PM DRY TRANSFER MAN POTASSIUM Routine 11/05/2023 4:[address] HEAD NO IV CONTRAST Timed 11:44 AM DRY TRANSFER MAN POC GLUCOSE Routine 11/05/2023 11:11 AM DRY TRANSFER MAN EKG ADULT (12-LEAD) Routine 11/05/2023 6 :38 AM DRY TRANSFER MAN POC GLUCOSE Routine 11/05/2023 6:07 AM [address]Y TRAN[address] CT HEAD NO IV CONTRAST Timed 4:54 AM DRY TRANSFER MAN PC MAGNESIUM, SERUM Routine 11/05/2023 4 :27 AM DRY TRANSFER MAN PC PHOSPHORUS INORGANIC(PHOSPHATE) Routine 11/05/2023 4:27 AM DRY TRANSFER MAN PC GASES,BLOOD,ANY COMB OF PH,PCD2,PO2,CO2,HCO2 Routine 11/05/2023 4:27 AM DRY TRANSFER MAN PC LAB CBC/PLT Routine 11/05/2023 4:27 AM DRY TRANSFER MAN TC LAB BLOOD DRAW BY VENIPUNCTURE Routine 11/05/2023 4:27 AM DRY TRANSFER MAN PC TROPONIN QUANTITATIVE Timed 11/05/2023 4:27 AM DRY TRANSFER MAN PROTHROMBIN (PT) & INR Timed 4:27 AM DRY TRANSFER MAN PC TROPONIN QUANTITATIVE Timed 11/05/2023 2:58 AM DRY TRANSFER MAN PROTHROMBIN (PT) & INR STAT 1:32 AM DRY TRANSFER MAN PHOSPHORUS STAT 11/05/2023 1:32 AM DRY TRANSFER MAN PANEL BASIC METABOLIC (BMP) STAT 11/05/2023 1:32 AM DRY TRANSFER MAN MAGNESIUM STAT 11/05/2023 1:32 AM DRY TRANSFER MAN PANEL HEPATIC FUNCTION STAT 1:32 AM DRY TRANSFER MAN FIBRINOGEN STAT 11/05/2023 1:32 AM DRY TRANSFER MAN CK, TOTAL STAT 11/05/2023 1:32 AM DRY TRANSFER MAN PC LAB CBC/PLT STAT 11/05/2023 1:32 AM DRY TRANSFER MAN PC LAB PTT STAT 11/05/2023 1:32 AM DRY TRANSFER MAN PC TROPONIN QUANTITATIVE Timed 11/05/2023 1:18 AM DRY TRANSFER MAN PC LACTATE (LACTIC ACID) STAT 11/05/2023 1:18 AM DRY TRANSFER MAN PC IONIZED,CALCIUM STAT 11/05/2023 1: 18 AM DRY TRANSFER MAN PC GASES,BLOOD,ANY COMB OF PH,PCD2,PO2,CO2,HCO2 STAT 11/05/2023 1:18 AM [address] TRAN[address] MAN CT HEAD-NECK - ANGIO - W/IV CON STAT 11/05/2023 12:09 AM DRY TRANSFER MAN PC LAB COMPLETE UA STAT 11/04/2023 11 :55 PM DRY TRANSFER MAN PF INSERT CATH,ART,PERCUT,SANTA ERM Routine 11/04/2023 11:43 PM DRY TRANSFER MAN ED EKG (12-LEAD) Routine 11/04/2023 11:2 [address] SPINE THORACIC NO IV CON STAT 11/04/2023 11:05 [address] TRAN[address] MAN CT SPINE LUMBAR NO IV CON STAT 11/04/2023 11:05 PM DRY TRANSFER MAN CT SPINE CERVICAL NO IV CON STAT 11/04/2023 11:05 PM DRY TRANSFER MAN CT HEAD NO IV CONTRAST STAT 11:05 PM [address] TRAN[address] CT CHEST/ABD/PELVIS W/IV CONT STAT 11/04/2023 11:05 PM DRY TRANSFER MAN XR CHEST 1 VIEW AP OR PA* STAT 11/04/2023 10:57 PM DRY TRANSFER MAN PC ELECTROLYTES PANEL STAT 11/04/2023 10:48 PM DRY TRANSFER MAN TC LAB ER STAT TOTAL HGB STAT 11/04/2023 10:48 PM DRY TRANSFER MAN PC LAB ED INR STAT 11/04/2023 10:45 PM DRY TRANSFER MAN TC LAB BLOOD DRAW BY VENIPUNCTURE Routine 11/04/2023 10:45 PM DRY TRANSFER MAN EXTRA TUBE - SST Routine 11/04/2023 10:4 5 PM DRY TRANSFER MAN PC TROPONIN QUANTITATIVE STAT 11/04/2023 10:45 PM DRY TRANSFER MAN PC LAB CBC W/DIFF & PLT STAT 11/04/2023 10:45 PM DRY TRANSFER MAN PRECAUTIONARY TUBE STAT 11/04/2023 10 :45 PM DRY TRANSFER MAN PC LACTATE (LACTIC ACID) STAT 11/04/2023 10:45 PM DRY TRANSFER MAN PC GASES,BLOOD,ANY COMB OF PH,PCD2,PO2,CO2,HCO2 STAT 11/04/2023 10:45 PM DRY TRANSFER MAN FIBRINOGEN STAT 11/04/2023 10:45 PM DRY TRANSFER MAN PC HEPARIN ASSAY STAT 11/04/2023 10:4 5 PM DRY TRANSFER MAN PC LAB PTT STAT 11/04/2023 10:45 PM DRY TRANSFER MAN ED US CRITICAL CARE STAT 11/04/2023 1 0:40 PM DRY TRANSFER MAN documented in this encounter Results * (ABNORMAL) PANEL BASIC METABOLIC (BMP) (11/16/2023 7:22 AM DRY TRANSFER MAN) Sodium 143 135 - 148 mEq/L [facility] Potassium 3.9 3.5 - 5.3 mEq/L [facility] Chloride 105 92 - 108 mEq/L [facility] CO2 27 22 - 30 mEq/L [facility] AnGap 11 8 - 16 mEq/L [facility] Glucose 87 70 - 100 mg/dL [facility] BUN 23 8 - 23 mg/dL [facility] Creatinine 1.19(H) 0.50 - 1.00 mg/dL [facility] Calcium 9.4 8.8 - 10.2 mg/dL [facility] eGFR (2020 CKD-EPI) 46(L) >=60 ml/min/1.7 3m2 [facility] Comment: The estimated glomerular filtration rate (eGFR) was calculated using the CKD-EPI 2020 creatinine equation, which does not include race as a factor. This equation is validated in individuals 18 years of age and older, and eGFR is normalized to a body surface area of 1.73m^2. Blood 11/16/2023 7:22 AM DRY TRANSFER MAN 11/16/2023 7:43 AM DRY TRANSFER MAN Jesusita Aiken APRN, EMILY LABORATO RY Performing Organization Address City/[facility]/ZIP Co de Phone Number [facility] [place] [address] * POC GLUCOSE (11/16/2023 6:58 AM DRY TRANSFER MAN) POC Glucose 84 70 - 100 mg/dL [facility] Blood 11/16/2023 6:58 AM DRY TRANSFER MAN Devin Dougherty MD LABORATORY Performing Organization Address City/[facility]/ZIP Co de Phone Number [facility] [address] [place] [address], [place] * POC GLUCOSE (11/15/2023 9:15 PM DRY TRANSFER MAN) POC Glucose 83 70 - 100 mg/dL [facility]ARE Blood 11/15/2023 9:15 PM DRY TRANSFER MAN Devin Dougherty MD LABORATORY Performing Organization Address City/[facility]/ZIP Co de Phone Number [facility]INT [facility]ARE [address] [place] [address], [place] * POC GLUCOSE (11/15/2023 4:09 PM DRY TRANSFER MAN) POC Glucose 91 70 - 100 mg/dL [facility] Blood 11/15/2023 4:09 PM DRY TRANSFER MAN Devin Dougherty MD LABORATORY Performing Organization Address City/[facility] Co de Phone Number [facility]ARE [address] [place] [address], [place] * POC GLUCOSE (11/15/2023 12:46 PM DRY TRANSFER MAN) POC Glucose 88 70 - 100 mg/dL [facility] Blood 11/15/2023 12:4 6 PM DRY TRANSFER MAN Devin Dougherty MD LABORATORY Performing Organization Address City/[facility] Co de Phone Number [facility]INT [facility]ARE [address] [place] [address], [place] * PANEL BASIC METABOLIC (BMP) (11/15/2023 7:39 AM DRY TRANSFER MAN) CO2 27 22 - 30 mEq/L [facility] Glucose 96 70 - 100 mg/dL [facility] BUN 20 8 - 23 mg/dL [facility] Creatinine 0.89 0.50 - 1.00 mg/dL [facility] Calcium 9.4 8.8 - 10.2 mg/dL [facility] Sodium 142 135 - 148 mEq/L [facility] Potassium 3.7 3.5 - 5.3 mEq/L [facility] Chloride 104 92 - 108 mEq/L [facility] eGFR (2020 CKD-EPI) 65 >=60 ml/min/1.7 3m2 [facility] Comment: The estimated glomerular filtration rate (eGFR) was calculated using the CKD-EPI 2020 creatinine equation, which does not include race as a factor. This equation is validated in individuals 18 years of age and older, and eGFR is normalized to a body surface area of 1.73m^2. AnGap 11 8 - 16 mEq/L [facility] Blood 11/15/2023 7:39 AM DRY TRANSFER MAN 11/15/2023 8:31 AM DRY TRANSFER MAN Jesusita Aiken APRN, [employer] LABORATO RY [facility] [place] [address] * (ABNORMAL) POC GLUCOSE (11/15/2023 6:11 AM DRY TRANSFER MAN) POC Glucose 105(H) 70 - 100 mg/dL [facility] POINT OF CARE Blood 11/15/2023 6:11 AM DRY TRANSFER MAN Devin Dougherty MD LABORATORY Performing Organization Address City/[facility] Co de Phone Number [facility] [place] [phone], [place] * (ABNORMAL) POC GLUCOSE (11/14/2023 9:02 PM DRY TRANSFER MAN) POC Glucose 168(H) 70 - 100 mg/dL [facility] Blood 11/14/2023 9:02 PM DRY TRANSFER MAN Devin Dougherty MD LABORATORY Performing Organization Address City/[facility] Co de Phone Number [facility] [address] [place] [address], [place] * (ABNORMAL) POC GLUCOSE (11/14/2023 4:21 PM DRY TRANSFER MAN) POC Glucose 128(H) 70 - 100 mg/dL [facility] Blood 11/14/2023 4:21 PM DRY TRANSFER MAN Devin Dougherty MD LABORATORY Performing Organization Address City/[facility] Co de Phone Number [facility]ARE [address] [place] [address], [place] * POC GLUCOSE (11/14/2023 12:19 PM DRY TRANSFER MAN) POC Glucose 84 70 - 100 mg/dL [facility] Blood 11/14/2023 12:1 9 PM DRY TRANSFER MAN Devin Dougherty MD LABORATORY Performing Organization Address City/[facility] Co de Phone Number [facility] [address] [place] [address], [place] * (ABNORMAL) PANEL BASIC METABOLIC (BMP) (11/14/2023 8:59 AM DRY TRANSFER MAN) CO2 28 22 - 30 mEq/L [facility] Glucose 158(H) 70 - 100 mg/dL [facility] BUN 19 8 - 23 mg/dL [facility] Creatinine 0.79 0.50 - 1.00 mg/dL [facility] Calcium 9.3 8.8 - 10.2 mg/dL [facility] eGFR (2020 CKD-EPI) 75 >=60 ml/min/1.7 3m2 [facility] Comment: The estimated glomerular filtration rate (eGFR) was calculated using the CKD-EPI 2020 creatinine equation, which does not include race as a factor. This equation is validated in individuals 18 years of age and older, and eGFR is normalized to a body surface area of 1.73m^2. Sodium 142 135 - 148 mEq/L [facility] Potassium 3.8 3.5 - 5.3 mEq/L [facility] Chloride 103 92 - 108 mEq/L [facility] AnGap 11 8 - 16 mEq/L [facility] Blood 11/14/2023 8:59 AM DRY TRANSFER MAN 11/14/2023 9:21 AM DRY TRANSFER MAN Jesusita Aiken APRN, [employer] RY [facility] [address] [place] [phone] * (ABNORMAL) POC GLUCOSE (11/14/2023 8:11 AM DRY TRANSFER MAN) POC Glucose 139(H) 70 - 100 mg/dL [facility] Blood 11/14/2023 8:11 AM DRY TRANSFER MAN Devin Dougherty MD LABORATORY [facility] POINT OF CARE [address] [place] [address], [place] * (ABNORMAL) POC GLUCOSE (11/13/2023 9:15 PM DRY TRANSFER MAN) POC Glucose 120(H) 70 - 100 mg/dL [facility] POINT [facility]ARE Blood 11/13/2023 9:15 PM DRY TRANSFER MAN Devin Dougherty MD LABORATORY Performing Organization Address City/[facility] Co de Phone Number [facility] POINT OF [address] [address], [place] * (ABNORMAL) POC GLUCOSE (11/13/2023 4:03 PM DRY TRANSFER MAN) POC Glucose 169(H) 70 - 100 mg/dL [facility] Blood 11/13/2023 4:03 PM DRY TRANSFER MAN Devin Dougherty MD LABORATORY [facility]INT [facility]ARE [address] [place] [address], [place] * (ABNORMAL) POC GLUCOSE (11/13/2023 11:21 AM DRY TRANSFER MAN) POC Glucose 166(H) 70 - 100 mg/dL [facility] Blood 11/13/2023 11:2 1 AM DRY TRANSFER MAN Devin Dougherty MD LABORATORY Performing Organization Address [facility] Co de Phone Number [facility] [address] [place] [address] * (ABNORMAL) PANEL BASIC METABOLIC (BMP) (11/13/2023 6:41 AM DRY TRANSFER MAN) CO2 30 22 - 30 mEq/L [facility] Glucose 121(H) 70 - 100 mg/dL [facility] BUN 24(H) 8 - 23 mg/dL [facility] Creatinine 0.87 0.50 - 1.00 mg/dL [facility] Calcium 8.9 8.8 - 10.2 mg/dL [facility] Sodium 143 135 - 148 mEq/L [facility] Potassium 3.0(L) 3.5 - 5.3 mEq/L [facility] Chloride 103 92 - 108 mEq/L [facility] eGFR (2020 CKD-EPI) 67 >=60 ml/min/1.7 3m2 [facility] Comment: The estimated glomerular filtration rate (eGFR) was calculated using the CKD-EPI 2020 creatinine equation, which does not include race as a factor. This equation is validated in individuals 18 years of age and older, and eGFR is normalized to a body surface area of 1.73m^2. AnGap 10 8 - 16 mEq/L [facility] Blood 11/13/2023 6:41 AM DRY TRANSFER MAN 11/13/2023 7:37 AM DRY TRANSFER MAN Quinn Covarrubias MD LABORATORY Performing Organization Address [facility] Co de Phone Number [facility] [place] [address] * (ABNORMAL) POC GLUCOSE (11/13/2023 6:31 AM DRY TRANSFER MAN) POC Glucose 128(H) 70 - 100 mg/dL [facility]INT [facility] CARE Blood 11/13/2023 6:31 AM DRY TRANSFER MAN Devin Dougherty MD LABORATORY Performing Organization Address City/[facility]/ZIP Co de Phone Number [facility] [address] [place] [address], [place] * POC GLUCOSE (11/12/2023 9:21 PM DRY TRANSFER MAN) [facility] POC Glucose 97 70 - 100 mg/dL [facility] Comment:R2 <=% Blood 11/12/2023 9:21 PM DRY TRANSFER MAN Devin Dougherty MD LABORATORY Performing Organization Address [facility] Co de Phone Number [facility]ARE [address] [place] [address], [place] * POC GLUCOSE (11/12/2023 4:12 PM DRY TRANSFER MAN) [facility] POC Glucose 89 70 - 100 mg/dL [facility] Blood 11/12/2023 4:12 PM DRY TRANSFER MAN Devin Dougherty MD LABORATORY Performing Organization Address [facility] Co de Phone Number [facility] [address] [place] [address], [place] * (ABNORMAL) PANEL BASIC METABOLIC (BMP) (11/12/2023 1:01 PM DRY TRANSFER MAN) [facility] Sodium 144 135 - 148 mEq/L [facility] Potassium 3.4(L) 3.5 - 5.3 mEq/L [facility] Chloride 104 92 - 108 mEq/L [facility] CO2 31(H) 22 - 30 mEq/L [facility] AnGap 9 8 - 16 mEq/L [facility] Glucose 118(H) 70 - 100 mg/dL [facility] BUN 29(H) 8 - 23 mg/dL [facility] Creatinine 0.92 0.50 - 1.00 mg/dL [facility] Calcium 9.3 8.8 - 10.2 mg/dL [facility] eGFR (2020 CKD-EPI) 63 >=60 ml/min/1.7 3m2 [facility] Comment: The estimated glomerular filtration rate (eGFR) was calculated using the CKD-EPI 2020 creatinine equation, which does not include race as a factor. This equation is validated in individuals 18 years of age and older, and eGFR is normalized to a body surface area of 1.73m^2. Blood 11/12/2023 1:01 PM DRY TRANSFER MAN 11/12/2023 1:44 PM DRY TRANSFER MAN Quinn Covarrubias MD LABORATORY [facility] [address] [place] [address] * (ABNORMAL) POC GLUCOSE (11/12/2023 12:14 PM DRY TRANSFER MAN) POC Glucose 117(H) 70 - 100 mg/dL [facility] Blood 11/12/2023 12:1 4 PM DRY TRANSFER MAN Devin Dougherty MD LABORATORY Performing Organization Address City/[facility]/ZIP Co de Phone Number [facility] [address] [place] [address], [place] * POC GLUCOSE (11/12/2023 6:09 AM DRY TRANSFER MAN) POC Glucose 80 70 - 100 mg/dL [facility]ARE Blood 11/12/2023 6:09 AM DRY TRANSFER MAN Devin Dougherty MD LABORATORY Performing Organization Address City/[facility]/ZIP Co de Phone Number [facility] [address] [place] [address], [place] * POC GLUCOSE (11/11/2023 8:48 PM DRY TRANSFER MAN) POC Glucose 99 70 - 100 mg/dL [facility]ARE Blood 11/11/2023 8:48 PM DRY TRANSFER MAN Devin Dougherty MD LABORATORY [facility]ARE [address] [place] [address], [place] * POC GLUCOSE (11/11/2023 4:11 PM DRY TRANSFER MAN) POC Glucose 93 70 - 100 mg/dL [facility] Blood 11/11/2023 4:11 PM DRY TRANSFER MAN Devin Dougherty MD LABORATORY Performing Organization Address City/[facility]/ZIP Co de Phone Number [facility] POINT [facility]ARE [address] [place] [phone], [place] * POC GLUCOSE (11/11/2023 11:47 AM DRY TRANSFER MAN) Pathologist [facility] POC Glucose 89 70 - 100 mg/dL [facility]ARE Blood 11/11/2023 11:4 7 AM DRY TRANSFER MAN Devin Dougherty MD LABORATORY Performing Organization Address City/[facility] Co de Phone Number [facility] [address] [place] [phone], [place] * PHOSPHORUS (11/11/2023 6:09 AM DRY TRANSFER MAN) Pathologist [facility] Phosphorus 3.5 2.5 - 4.5 mg/dL [facility] Blood 11/11/2023 6:09 AM DRY TRANSFER MAN 11/11/2023 6:36 AM DRY TRANSFER MAN Quinn Covarrubias MD LABORATORY Performing Organization Address City/[facility] Co de Phone Number [facility] [address] [address] * (ABNORMAL) PANEL BASIC METABOLIC (BMP) (11/11/2023 6:09 AM DRY TRANSFER MAN) Pathologist [facility] Sodium 143 135 - 148 mEq/L [facility] Potassium 3.3(L) 3.5 - 5.3 mEq/L [facility] Chloride 106 92 - 108 mEq/L [facility] AnGap 8 8 - 16 mEq/L [facility] CO2 29 22 - 30 mEq/L [facility] Glucose 79 70 - 100 mg/dL [facility] BUN 30(H) 8 - 23 mg/dL [facility] Creatinine 0.83 0.50 - 1.00 mg/dL [facility] Calcium 9.0 8.8 - 10.2 mg/dL [facility] eGFR (2020 CKD-EPI) 71 >=60 ml/min/1.7 3m2 [facility] Comment: The estimated glomerular filtration rate (eGFR) was calculated using the CKD-EPI 2020 creatinine equation, which does not include race as a factor. This equation is validated in individuals 18 years of age and older, and eGFR is normalized to a body surface area of 1.73m^2. Blood 11/11/2023 6:09 AM DRY TRANSFER MAN 11/11/2023 6:36 AM DRY TRANSFER MAN Quinn Covarrubias MD LABORATORY Performing Organization Address City/[facility] Co de Phone Number [facility] [address] [address] * MAGNESIUM (11/11/2023 6:09 AM DRY TRANSFER MAN) Pathologist [facility] Magnesium 2.2 1.6 - 2.4 mg/dL [facility] Blood 11/11/2023 6:09 AM DRY TRANSFER MAN 11/11/2023 6:36 AM DRY TRANSFER MAN Quinn Covarrubias MD LABORATORY Performing Organization Address [facility] Co de Phone Number [facility] [address] [address] * (ABNORMAL) CBC WITH PLATELET (11/11/2023 6:09 AM DRY TRANSFER MAN) WBC 5.60 4.00 - 10.00 k/cmm [facility] RBC 3.80(L) 3.90 - 5.20 m/cmm [facility] Hgb 9.5(L) 11.5 - 15.7 g/dL [facility] Hematocrit 31.4(L) 34.0 - 45.0 % [facility] MCV 82.6 80.0 - 100.0 fL [facility] MCH 25.0 25.0 - 32.0 pg [facility] MCHC 30.3(L) 31.0 - 36.0 g/dL [facility] RDW 16.1(H) 11.5 - 14.5 % [facility] Plt 275 150 - 400 k/cmm [facility] MPV 11.8 6.5 - 12.5 fL [facility] Blood 11/11/2023 6:09 AM DRY TRANSFER MAN 11/11/2023 6:36 AM DRY TRANSFER MAN Quinn Covarrubias MD LABORATORY [facility] [address] [place] [address] * POC GLUCOSE (11/10/2023 8:58 PM DRY TRANSFER MAN) POC Glucose 82 70 - 100 mg/dL [facility] Blood 11/10/2023 8:58 PM DRY TRANSFER MAN Devin Dougherty MD LABORATORY Performing Organization Address City/[facility]/ZIP Co de Phone Number [facility] [address] [place] [id number], [place] * (ABNORMAL) POC GLUCOSE (11/10/2023 4:16 PM DRY TRANSFER MAN) POC Glucose 110(H) 70 - 100 mg/dL [facility] POINT [facility] CARE Blood 11/10/2023 4:16 PM DRY TRANSFER MAN Devin Dougherty MD LABORATORY Performing Organization Address [facility] Co de Phone Number [facility] [address] [place] [id number], [place] * POC GLUCOSE (11/10/2023 11:15 AM DRY TRANSFER MAN) POC Glucose 93 70 - 100 mg/dL [facility] POINT [facility] CARE Blood 11/10/2023 11:1 5 AM DRY TRANSFER MAN Devin Dougherty MD LABORATORY [facility] [address] [place] [id number], [place] * PHOSPHORUS (11/10/2023 6:17 AM DRY TRANSFER MAN) Phosphorus 3.8 2.5 - 4.5 mg/dL [facility] Blood 11/10/2023 6:17 AM DRY TRANSFER MAN 11/10/2023 6:32 AM DRY TRANSFER MAN Quinn Covarrubias MD LABORATORY Performing Organization Address City/[facility] Co de Phone Number [facility] [address] [address] * (ABNORMAL) PANEL BASIC METABOLIC (BMP) (11/10/2023 6:17 AM DRY TRANSFER MAN) Sodium 145 135 - 148 mEq/L [facility] Potassium 3.6 3.5 - 5.3 mEq/L [facility] Chloride 107 92 - 108 mEq/L [facility] CO2 27 22 - 30 mEq/L [facility] Glucose 109(H) 70 - 100 mg/dL [facility] BUN 40(H) 8 - 23 mg/dL [facility] Creatinine 1.15(H) 0.50 - 1.00 mg/dL [facility] Calcium 9.1 8.8 - 10.2 mg/dL [facility] AnGap 11 8 - 16 mEq/L [facility] eGFR (2020 CKD-EPI) 48(L) >=60 ml/min/1.7 3m2 [facility] Comment: The estimated glomerular filtration rate (eGFR) was calculated using the CKD-EPI 2020 creatinine equation, which does not include race as a factor. This equation is validated in individuals 18 years of age and older, and eGFR is normalized to a body surface area of 1.73m^2. Blood 11/10/2023 6:17 AM DRY TRANSFER MAN 11/10/2023 6:32 AM DRY TRANSFER MAN Quinn Covarrubias MD LABORATORY Performing Organization Address City/[facility]/ZIP Co de Phone Number [facility] [address] [address] * MAGNESIUM (11/10/2023 6:17 AM DRY TRANSFER MAN) Magnesium 2.3 1.6 - 2.4 mg/dL [facility] Blood 11/10/2023 6:17 AM DRY TRANSFER MAN 11/10/2023 6:32 AM DRY TRANSFER MAN Quinn Covarrubias MD LABORATORY Performing Organization Address City/[facility]/ZIP Co de Phone Number [facility] [address] [address] * (ABNORMAL) CBC WITH PLATELET (11/10/2023 6:17 AM DRY TRANSFER MAN) Pathologist [facility] WBC 6.82 4.00 - 10.00 k/cmm [facility] RBC 3.64(L) 3.90 - 5.20 m/cmm [facility] Hgb 9.1(L) 11.5 - 15.7 g/dL [facility] Hematocrit 30.3(L) 34.0 - 45.0 % [facility] MCV 83.2 80.0 - 100.0 fL [facility] MCH 25.0 25.0 - 32.0 pg [facility] MCHC 30.0(L) 31.0 - 36.0 g/dL [facility] RDW 16.1(H) 11.5 - 14.5 % [facility] Plt 259 150 - 400 k/cmm [facility] MPV 11.8 6.5 - 12.5 fL [facility] Blood 11/10/2023 6:17 AM DRY TRANSFER MAN 11/10/2023 6:32 AM DRY TRANSFER MAN Quinn Covarrubias MD LABORATORY Performing Organization Address [facility]/ZIP Co de Phone Number [facility] [address] [address] * (ABNORMAL) POC GLUCOSE (11/09/2023 9:41 PM DRY TRANSFER MAN) Pathologist [facility] POC Glucose 136(H) 70 - 100 mg/dL [facility] Blood 11/09/2023 9:41 PM DRY TRANSFER MAN Devin Dougherty MD LABORATORY [facility] [address] [place] [address], [place] * (ABNORMAL) POC GLUCOSE (11/09/2023 3:58 PM DRY TRANSFER MAN) Pathologist [facility] POC Glucose 157(H) 70 - 100 mg/dL [facility] Blood 11/09/2023 3:58 PM DRY TRANSFER MAN Devin Dougherty MD LABORATORY Performing Organization Address [facility] Co de Phone Number [facility] [address] [place] [address], [place] * ANTI XA ASSAY LMW HEPARIN (11/09/2023 2:18 PM DRY TRANSFER MAN) Anti XA LMW 0.32 IU/mL [facility] Comment: Anti Xa Assay LMW Heparin Therapeutic Ranges: 0.4-1.1 IU/mL for twice daily 1.0-2.0 IU/mL for once daily Blood 11/09/2023 2:18 PM DRY TRANSFER MAN 11/09/2023 2:29 PM DRY TRANSFER MAN Quinn Covarrubias MD LABORATORY Performing Organization Address [facility] Co de Phone Number [facility] [address] [address] * (ABNORMAL) POC GLUCOSE (11/09/2023 11:28 AM DRY TRANSFER MAN) POC Glucose 174(H) 70 - 100 mg/dL [facility] Blood 11/09/2023 11:2 8 AM DRY TRANSFER MAN Devin Dougherty MD LABORATORY Performing Organization Address [facility] Co de Phone Number [facility] [address] [place] [address], [place] * XR FOOT RIGHT 3 V AP/OBL/LAT* (11/09/2023 10:36 AM DRY TRANSFER MAN) Anatomical Region Laterality Modality Foot Computed Radiogr aphy 11/09/2023 10:4 7 AM DRY TRANSFER MAN Impressions 11/09/2023 10:50 AM DRY TRANSFER MAN Impression: No acute osseous abnormality. Generalized osteopenia. Reading Radiologist: Angela Camp Narrative 11/09/2023 10:50 AM DRY TRANSFER MAN Technique: XR FOOT RIGHT 3 V AP/OBL/LAT* [...] osteopenia. Reading Radiologist: Angela Camp Jesusita Aiken [employer] RAD XRAY * POC GLUCOSE (11/09/2023 5:46 AM DRY TRANSFER MAN) [facility] Signature POC Glucose 97 70 - 100 mg/dL [facility] Blood 11/09/2023 5:46 AM DRY TRANSFER MAN Devin Dougherty MD LABORATORY Performing Organization Address City/[facility]/ZIP Co de Phone Number [facility] [address] [place] [address] * (ABNORMAL) VALPROATE (DEPAKOTE) LEVEL (11/09/2023 5:41 AM DRY TRANSFER MAN) Valproate 31.8(L) 50.0 - 100.0 mcg/mL [facility] Blood 11/09/2023 5:41 AM DRY TRANSFER MAN 11/09/2023 8:19 AM DRY TRANSFER MAN Quinn Covarrubias MD LABORATORY [facility] [place] [address] * PHOSPHORUS (11/09/2023 5:41 AM DRY TRANSFER MAN) Phosphorus 3.9 2.5 - 4.5 mg/dL [facility] Blood 11/09/2023 5:41 AM DRY TRANSFER MAN 11/09/2023 6:38 AM DRY TRANSFER MAN Quinn Covarrubias MD LABORATORY Performing Organization Address [facility] Co de Phone Number [facility] [address] [address] * (ABNORMAL) PANEL BASIC METABOLIC (BMP) (11/09/2023 5:41 AM DRY TRANSFER MAN) Sodium 142 135 - 148 mEq/L [facility] Potassium 3.1(L) 3.5 - 5.3 mEq/L [facility] Chloride 105 92 - 108 mEq/L [facility] CO2 30 22 - 30 mEq/L [facility] Glucose 91 70 - 100 mg/dL [facility] BUN 23 8 - 23 mg/dL [facility] Creatinine 1.09(H) 0.50 - 1.00 mg/dL [facility] Calcium 8.8 8.8 - 10.2 mg/dL [facility] AnGap 7(L) 8 - 16 mEq/L [facility] eGFR (2020 CKD-EPI) 51(L) >=60 ml/min/1.7 3m2 [facility] Comment: The estimated glomerular filtration rate (eGFR) was calculated using the CKD-EPI 2020 creatinine equation, which does not include race as a factor. This equation is validated in individuals 18 years of age and older, and eGFR is normalized to a body surface area of 1.73m^2. Blood 11/09/2023 5:41 AM DRY TRANSFER MAN 11/09/2023 6:38 AM DRY TRANSFER MAN Quinn Covarrubias MD LABORATORY Performing Organization Address [facility] Co de Phone Number [facility] [address] [address] * MAGNESIUM (11/09/2023 5:41 AM DRY TRANSFER MAN) Magnesium 2.1 1.6 - 2.4 mg/dL [facility] Blood 11/09/2023 5:41 AM DRY TRANSFER MAN 11/09/2023 6:38 AM DRY TRANSFER MAN Quinn Covarrubias MD LABORATORY Performing Organization Address [facility] Co de Phone Number [facility] [address] [address] * (ABNORMAL) CBC WITH PLATELET (11/09/2023 5:41 AM DRY TRANSFER MAN) Pathologist [facility] WBC 6.97 4.00 - 10.00 k/cmm [facility] RBC 3.42(L) 3.90 - 5.20 m/cmm [facility] Hgb 8.8(L) 11.5 - 15.7 g/dL [facility] Hematocrit 28.4(L) 34.0 - 45.0 % [facility] MCV 83.0 80.0 - 100.0 fL [facility] MCH 25.7 25.0 - 32.0 pg [facility] MCHC 31.0 31.0 - 36.0 g/dL [facility] RDW 16.0(H) 11.5 - 14.5 % [facility] Plt 227 150 - 400 k/cmm [facility] MPV 12.0 6.5 - 12.5 fL [facility] Blood 11/09/2023 5:41 AM DRY TRANSFER MAN 11/09/2023 6:38 AM DRY TRANSFER MAN Quinn Covarrubias MD LABORATORY [facility] [place] [address] * (ABNORMAL) POC GLUCOSE (11/08/2023 8:40 PM DRY TRANSFER MAN) [facility] POC Glucose 125(H) 70 - 100 mg/dL [facility] Blood 11/08/2023 8:40 PM DRY TRANSFER MAN Devin Dougherty MD LABORATORY [facility] [address] [place] [address], * PHOSPHORUS (11/08/2023 4:20 PM DRY TRANSFER MAN) Pathologist [facility] Phosphorus 3.5 2.5 - 4.5 mg/dL [facility] Blood 11/08/2023 4:20 PM DRY TRANSFER MAN 11/08/2023 4:38 PM DRY TRANSFER MAN Jesusita K EMILY Aiken APRNNATE RY Performing Organization Address [facility] Co de Phone Number [facility] [address] [place] [address] * MAGNESIUM (11/08/2023 4:20 PM DRY TRANSFER MAN) Magnesium 2.0 1.6 - 2.4 mg/dL [facility] Blood 11/08/2023 4:20 PM DRY TRANSFER MAN 11/08/2023 4:38 PM DRY TRANSFER MAN Jesusita Wild Nelli CHO EMILY MORENOATO RY Performing Organization Address [facility] de Phone Number [facility] [address] [address] * (ABNORMAL) PANEL BASIC METABOLIC (BMP) (11/08/2023 4:20 PM DRY TRANSFER MAN) Sodium 142 135 - 148 mEq/L [facility] Potassium 3.4(L) 3.5 - 5.3 mEq/L [facility] Chloride 105 92 - 108 mEq/L [facility] CO2 28 22 - 30 mEq/L [facility] AnGap 9 8 - 16 mEq/L [facility] Glucose 149(H) 70 - 100 mg/dL [facility] BUN 17 8 - 23 mg/dL [facility] Creatinine 0.82 0.50 - 1.00 mg/dL [facility] Calcium 8.9 8.8 - 10.2 mg/dL [facility] eGFR (2020 CKD-EPI) 72 >=60 ml/min/1.7 3m2 [facility] Comment: The estimated glomerular filtration rate (eGFR) was calculated using the CKD-EPI 2020 creatinine equation, which does not include race as a factor. This equation is validated in individuals 18 years of age and older, and eGFR is normalized to a body surface area of 1.73m^2. Blood 11/08/2023 4:20 PM DRY TRANSFER MAN 11/08/2023 4:38 PM DRY TRANSFER MAN Jesusita K Nelli CHO CNP JOSHATO RY Performing Organization Address City/[facility]/ZIP Co de Phone Number [facility] [address] [address] * (ABNORMAL) CBC WITH PLATELET (11/08/2023 4:20 PM DRY TRANSFER MAN) [facility] WBC 8.46 4.00 - 10.00 k/cmm [facility] RBC 3.65(L) 3.90 - 5.20 m/cmm [facility] Hgb 9.1(L) 11.5 - 15.7 g/dL [facility] Hematocrit 30.2(L) 34.0 - 45.0 % [facility] MCV 82.7 80.0 - 100.0 fL [facility] MCH 24.9(L) 25.0 - 32.0 pg [facility] MCHC 30.1(L) 31.0 - 36.0 g/dL [facility] RDW 16.0(H) 11.5 - 14.5 % [facility] Plt 227 150 - 400 k/cmm [facility] MPV 11.7 6.5 - 12.5 fL [facility] Blood 11/08/2023 4:20 PM DRY TRANSFER MAN 11/08/2023 4:38 PM DRY TRANSFER MAN EMILY Martinez APRNHOP[facility] RY Performing Organization Address City/[facility]/ZIP Co de Phone Number [address] [address] * (ABNORMAL) POC GLUCOSE (11/08/2023 3:56 PM DRY TRANSFER MAN) [facility] POC Glucose 150(H) 70 - 100 mg/dL [facility] Blood 11/08/2023 3:56 PM DRY TRANSFER MAN Devin Dougherty MD LABORATORY Performing Organization Address City/[facility]/ZIP Co de Phone Number [facility] [address] [place] [address] * (ABNORMAL) POC GLUCOSE (11/08/2023 11:03 AM DRY TRANSFER MAN) [facility] POC Glucose 162(H) 70 - 100 mg/dL [facility] Blood 11/08/2023 11:0 3 AM DRY TRANSFER MAN Devin Dougherty MD LABORATORY [facility] [address] [place] [address], [place] * XR CHEST 1 VIEW AP OR PA* (11/08/2023 6:30 AM DRY TRANSFER MAN) Anatomical Region Laterality Modality Chest Computed Radiogr aphy 11/08/2023 6:56 AM DRY TRANSFER MAN Impressions 11/08/2023 7:24 AM DRY TRANSFER MAN Impression: Stable chest. I have personally reviewed the image(s) and initial interpretation, and I agree with the findings as documented by the resident/fellow. Reading Radiologist: Ronal Hidalgo Reading Resident: Laith Berkowitz Narrative 11/08/2023 7:24 AM DRY TRANSFER MAN Technique: XR CHEST 1 VIEW AP OR PA* Indication: eval for new O2 requirement ?? Comparison: 11/07/2023 Findings: AP view of the chest. Enlarged heart. No new pulmonary opacity. No pleural effusion or pneumothorax. Procedure Note Ronal Hidlago MBBS - 11/08/2023 Technique: XR CHEST 1 [...] * (ABNORMAL) POC GLUCOSE (11/08/2023 6:22 AM DRY TRANSFER MAN) POC Glucose 126(H) 70 - 100 mg/dL [facility] Blood 11/08/2023 6:22 AM DRY TRANSFER MAN Devin Dougherty MD LABORATORY [facility]INT [facility] CARE [address] [place] [address], [place] * (ABNORMAL) POC GLUCOSE (11/07/2023 9:34 PM DRY TRANSFER MAN) POC Glucose 109(H) 70 - 100 mg/dL [facility] Blood 11/07/2023 9:34 PM DRY TRANSFER MAN Devin Dougherty MD LABORATORY Performing Organization Address City/[facility]/ZIP Co de Phone Number [facility] [address] [place] [address], [place] * (ABNORMAL) POC GLUCOSE (11/07/2023 4:06 PM DRY TRANSFER MAN) POC Glucose 160(H) 70 - 100 mg/dL [facility] Blood 11/07/2023 4:06 PM DRY TRANSFER MAN Devin Dougherty MD LABORATORY Performing Organization Address [facility] Co de Phone Number [facility] [address] [place] [address], [place] * (ABNORMAL) POC GLUCOSE (11/07/2023 11:45 AM DRY TRANSFER MAN) POC Glucose 107(H) 70 - 100 mg/dL [facility] Blood 11/07/2023 11:4 5 AM DRY TRANSFER MAN Devin Dougherty MD LABORATORY Performing Organization Address City/[facility] Co de Phone Number [facility] [address] [place] [address], [place] * XR CHEST 2 VIEWS PA + LAT* (11/07/2023 10:07 AM DRY TRANSFER MAN) Anatomical Region Laterality Modality Chest Computed Radiogr aphy 11/07/2023 10:0 9 AM DRY TRANSFER MAN Impressions 11/07/2023 10:10 AM DRY TRANSFER MAN Impression: New left basilar opacities with small effusion concerning for developing infection. Reading Radiologist: Phil Contreras Narrative 11/07/2023 10:10 AM DRY TRANSFER MAN Technique: XR CHEST 2 VIEWS PA + [...] RAD XRAY * PROCALCITONIN (11/07/2023 8:34 AM DRY TRANSFER MAN) Procalcitonin 0.12 ng/mL [facility] Comment: Results <0.50 ng/mL represent a low risk of severe sepsis and/or septic shock. Results >2.0 ng/mL represent a high risk of severe sepsis and/or septic shock. Blood 11/07/2023 8:34 AM DRY TRANSFER MAN 11/07/2023 8:40 AM DRY TRANSFER MAN Quinn Covarrubias MD LABORATORY [facility] [address] [address] * (ABNORMAL) CBC WITH PLATELET (11/07/2023 8:34 AM DRY TRANSFER MAN) WBC 7.45 4.00 - 10.00 k/cmm [facility] RBC 3.49(L) 3.90 - 5.20 m/cmm [facility] Hgb 8.8(L) 11.5 - 15.7 g/dL [facility] Hematocrit 29.0(L) 34.0 - 45.0 % [facility] MCV 83.1 80.0 - 100.0 fL [facility] MCH 25.2 25.0 - 32.0 pg [facility] MCHC 30.3(L) 31.0 - 36.0 g/dL [facility] RDW 15.9(H) 11.5 - 14.5 % [facility] Plt 249 150 - 400 k/cmm [facility] MPV 11.0 6.5 - 12.5 fL [facility] Blood 11/07/2023 8:34 AM DRY TRANSFER MAN 11/07/2023 8:40 AM DRY TRANSFER MAN Quinn Covarrubias MD LABORATORY Performing Organization Address [facility] Co de Phone Number [facility] [address] [address] * (ABNORMAL) PANEL BASIC METABOLIC (BMP) (11/07/2023 8:34 AM DRY TRANSFER MAN) Sodium 145 135 - 148 mEq/L [facility] Potassium 3.5 3.5 - 5.3 mEq/L [facility] Chloride 111(H) 92 - 108 mEq/L [facility] CO2 26 22 - 30 mEq/L [facility] AnGap 8 8 - 16 mEq/L [facility] Glucose 108(H) 70 - 100 mg/dL [facility] BUN 15 8 - 23 mg/dL [facility] Creatinine 0.90 0.50 - 1.00 mg/dL [facility] Calcium 8.8 8.8 - 10.2 mg/dL [facility] eGFR (2020 CKD-EPI) 64 >=60 ml/min/1.7 3m2 [facility] Comment: The estimated glomerular filtration rate (eGFR) was calculated using the CKD-EPI 2020 creatinine equation, which does not include race as a factor. This equation is validated in individuals 18 years of age and older, and eGFR is normalized to a body surface area of 1.73m^2. Blood 11/07/2023 8:34 AM DRY TRANSFER MAN 11/07/2023 8:40 AM DRY TRANSFER MAN Quinn Covarrubias MD LABORATORY Performing Organization Address City/[facility]/ZIP Co de Phone Number [facility] [address] [address] * MAGNESIUM (11/07/2023 8:34 AM DRY TRANSFER MAN) Magnesium 2.3 1.6 - 2.4 mg/dL [facility] Blood 11/07/2023 8:34 AM DRY TRANSFER MAN 11/07/2023 8:40 AM DRY TRANSFER MAN Quinn Covarrubias MD LABORATORY Performing Organization Address City/[facility] [place] [address] * (ABNORMAL) PHOSPHORUS (11/07/2023 8:34 AM DRY TRANSFER MAN) Phosphorus 5.0(H) 2.5 - 4.5 mg/dL [facility] Blood 11/07/2023 8:34 AM DRY TRANSFER MAN 11/07/2023 8:40 AM DRY TRANSFER MAN Quinn Covarrubias MD LABORATORY Performing Organization Address [facility] [place] [address] * (ABNORMAL) POC GLUCOSE (11/07/2023 5:45 AM DRY TRANSFER MAN) POC Glucose 115(H) 70 - 100 mg/dL [facility] Blood 11/07/2023 5:45 AM DRY TRANSFER MAN Devin Dougherty MD LABORATORY Performing Organization Address City/[facility] Co de Phone Number [facility] [address] [place] [address] * (ABNORMAL) POC GLUCOSE (11/06/2023 9:21 PM DRY TRANSFER MAN) POC Glucose 149(H) 70 - 100 mg/dL [facility] Blood 11/06/2023 9:21 PM DRY TRANSFER MAN Devin Dougherty MD LABORATORY Performing Organization Address City/[facility] Co de Phone Number [facility] [place] [address], [place] * (ABNORMAL) BLOOD GASES (11/06/2023 1:06 PM DRY TRANSFER MAN) PH Jalen 7.36 7.32 - 7.42 [facility] PCO2 Jalen 48 41 - 51 mmHG [facility] PO2 Jalen 86(H) 25 - 40 mmHG [facility] Bicarb Jalne 26 24 - 28 mEq/L [facility] O2 Sat Jalen 96 % [facility] Base Exc Jalen 1.0 -10.0 - 2.0 mEq/L [facility] Blood Venous 11/06/2023 1:06 PM DRY TRANSFER MAN 11/06/2023 1:10 PM DRY TRANSFER MAN Narrative [facility] - 11/06/2023 1:16 PM DRY TRANSFER MAN Draw on Room Air: No O2 LPM (liter/min) Level->4 via mask FiO2 Level: 100 Quinn Covarrubias MD LABORATORY Performing Organization Address City/[facility]/ZIP Co de Phone Number [address] [address] * MAGNESIUM (11/06/2023 1:06 PM DRY TRANSFER MAN) Magnesium 2.4 1.6 - 2.4 mg/dL [facility] Blood 11/06/2023 1:06 PM DRY TRANSFER MAN 11/06/2023 1:22 PM DRY TRANSFER MAN Quinn Covarrubias MD LABORATORY Performing Organization Address City/[facility]/ZIP Co de Phone Number [address] [address] * PHOSPHORUS (11/06/2023 1:06 PM DRY TRANSFER MAN) Phosphorus 4.2 2.5 - 4.5 mg/dL [facility] Blood 11/06/2023 1:06 PM DRY TRANSFER MAN 11/06/2023 1:22 PM DRY TRANSFER MAN Quinn Covarrubias MD LABORATORY Performing Organization Address City/[facility]/ZIP Co de Phone Number [address] [phone] * (ABNORMAL) PANEL BASIC METABOLIC (BMP) (11/06/2023 1:06 PM DRY TRANSFER MAN) Sodium 141 135 - 148 mEq/L [facility] Potassium 3.8 3.5 - 5.3 mEq/L [facility] Chloride 108 92 - 108 mEq/L [facility] CO2 27 22 - 30 mEq/L [facility] AnGap 6(L) 8 - 16 mEq/L [facility] Glucose 184(H) 70 - 100 mg/dL [facility] [place] BUN 15 8 - 23 mg/dL [facility] [place] Creatinine 0.91 0.50 - 1.00 mg/dL [facility] Calcium 8.7(L) 8.8 - 10.2 mg/dL [facility] eGFR (2020 CKD-EPI) 63 >=60 ml/min/1.7 3m2 [facility] Comment: The estimated glomerular filtration rate (eGFR) was calculated using the CKD-EPI 2020 creatinine equation, which does not include race as a factor. This equation is validated in individuals 18 years of age and older, and eGFR is normalized to a body surface area of 1.73m^2. Blood 11/06/2023 1:06 PM DRY TRANSFER MAN 11/06/2023 1:22 PM DRY TRANSFER MAN Quinn Covarrubias MD LABORATORY [facility] [address] [address] * (ABNORMAL) CBC WITH PLATELET (11/06/2023 1:06 PM DRY TRANSFER MAN) WBC 10.82(H) 4.00 - 10.00 k/cmm [facility] RBC 3.58(L) 3.90 - 5.20 m/cmm [facility] Hgb 9.1(L) 11.5 - 15.7 g/dL [facility] Hematocrit 29.6(L) 34.0 - 45.0 % [facility] MCV 82.7 80.0 - 100.0 fL [facility] MCH 25.4 25.0 - 32.0 pg [facility] MCHC 30.7(L) 31.0 - 36.0 g/dL [facility] RDW 15.8(H) 11.5 - 14.5 % [facility] Plt 253 150 - 400 k/cmm [facility] MPV 11.3 6.5 - 12.5 fL [facility] Blood 11/06/2023 1:06 PM DRY TRANSFER MAN 11/06/2023 1:21 PM DRY TRANSFER MAN Quinn Covarrubias MD LABORATORY Performing Organization Address [facility] Co de Phone Number [facility] [place] [address] * (ABNORMAL) POC GLUCOSE (11/06/2023 1:04 PM DRY TRANSFER MAN) POC Glucose 173(H) 70 - 100 mg/dL [facility] Blood 11/06/2023 1:04 PM DRY TRANSFER MAN Devin Dougherty MD LABORATORY Performing Organization Address [facility] Co de Phone Number [facility] [place] [place] [address], * (ABNORMAL) POC GLUCOSE (11/06/2023 10:49 AM DRY TRANSFER MAN) POC Glucose 257(H) 70 - 100 mg/dL [facility] Blood 11/06/2023 10:4 9 AM DRY TRANSFER MAN Devin Dougherty MD LABORATORY Performing Organization Address [facility] de Phone Number [facility] [address] * (ABNORMAL) GLYCOSYLATED HGB - A1C (11/06/2023 6:31 AM DRY TRANSFER MAN) Hemoglobin A1C 8.1(H) 4.0 - 5.6 % [facility] Comment: Increased risk for diabetes (prediabetes): 5.7-6.4% Diabetes: greater than or equal to 6.5% * * In the absence of unequivocal hyperglycemia, diagnosis requires two abnormal test results (i.e. HbA1c and glucose) or two abnormal results from specimens collected at two different timepoints. Estimated Average Glucose 186(H) 68 - 114 [facility] Comment: The ADA recommends reporting an estimated Average Glucose (eAG) with all hemoglobin A1c results using the equation derived from a study of 501 normal diabetic adults. Minority populations were underrepresented and children were not included. The EAG is not equivalent to a fasting glucose. Blood 11/06/2023 6:31 AM DRY TRANSFER MAN 11/06/2023 11:28 AM DRY TRANSFER MAN Quinn Covarrubias MD LABORATORY Performing Organization Address [facility] Co de Phone Number [facility] [address] [address] * ICU PHOSPHORUS (11/06/2023 6:31 AM DRY TRANSFER MAN) Phosphorus 4.1 2.5 - 4.5 mg/dL [facility] Blood 11/06/2023 6:31 AM DRY TRANSFER MAN 11/06/2023 7:37 AM DRY TRANSFER MAN Devin Dougherty MD LABORATORY Performing Organization Address [facility] de Phone Number [facility] [address] [address] * (ABNORMAL) ICU MAGNESIUM (11/06/2023 6:31 AM DRY TRANSFER MAN) Magnesium 2.5(H) 1.6 - 2.4 mg/dL [facility] Blood 11/06/2023 6:31 AM DRY TRANSFER MAN 11/06/2023 7:37 AM DRY TRANSFER MAN Devin Dougherty MD LABORATORY Performing Organization Address [facility] de Phone Number [facility] [address] [address] * (ABNORMAL) ICU CBC WITH PLATELET (11/06/2023 6:31 AM DRY TRANSFER MAN) WBC 9.06 4.00 - 10.00 k/cmm [facility] RBC 3.77(L) 3.90 - 5.20 m/cmm [facility] Hgb 9.6(L) 11.5 - 15.7 g/dL [facility] Hematocrit 30.8(L) 34.0 - 45.0 % [facility] MCV 81.7 80.0 - 100.0 fL [facility] MCH 25.5 25.0 - 32.0 pg [facility] MCHC 31.2 31.0 - 36.0 g/dL [facility] RDW 15.9(H) 11.5 - 14.5 % [facility] Plt 284 150 - 400 k/cmm [facility] MPV 12.1 6.5 - 12.5 fL [facility] Blood 11/06/2023 6:31 AM DRY TRANSFER MAN 11/06/2023 7:37 AM DRY TRANSFER MAN Devin Dougherty MD LABORATORY Performing Organization Address City/State/[facility] Co de Phone Number [facility] [address] [address] * (ABNORMAL) ICU PANEL BASIC METABOLIC (BMP) (11/06/2023 6:31 AM DRY TRANSFER MAN) Sodium 142 135 - 148 mEq/L [facility] Potassium 3.7 3.5 - 5.3 mEq/L [facility] Chloride 107 92 - 108 mEq/L [facility] CO2 26 22 - 30 mEq/L [facility] AnGap 9 8 - 16 mEq/L [facility] Glucose 148(H) 70 - 100 mg/dL [facility] BUN 12 8 - 23 mg/dL [facility] Creatinine 0.77 0.50 - 1.00 mg/dL [facility] Calcium 8.7(L) 8.8 - 10.2 mg/dL [facility] eGFR (2020 CKD-EPI) 77 >=60 ml/min/1.7 3m2 [facility] Comment: The estimated glomerular filtration rate (eGFR) was calculated using the CKD-EPI 2020 creatinine equation, which does not include race as a factor. This equation is validated in individuals 18 years of age and older, and eGFR is normalized to a body surface area of 1.73m^2. Blood 11/06/2023 6:31 AM DRY TRANSFER MAN 11/06/2023 7:37 AM DRY TRANSFER MAN Devin Dougherty MD LABORATORY Performing Organization Address City/State/[facility] Co de Phone Number [facility] [address] [address] * PROTHROMBIN (PT) & INR (11/06/2023 6:31 AM DRY TRANSFER MAN) Pathologist [facility] PT 11.4 9.0 - 12.5 sec [facility] INR 1.0 0.8 - 1.1 [facility] Comment: Warfarin Therapeutic Range: Standard Intensity: 2.0 - 3.0 High Intensity: 2.5 - 3.5 Blood 11/06/2023 6:31 AM DRY TRANSFER MAN 11/06/2023 7:37 AM DRY TRANSFER MAN Quinn Covarrubias MD LABORATORY Performing Organization Address [facility] Co de Phone Number [address] [address] * (ABNORMAL) POC GLUCOSE (11/06/2023 5:39 AM DRY TRANSFER MAN) Pathologist [facility] POC Glucose 149(H) 70 - 100 mg/dL [facility] Blood 11/06/2023 5:39 AM DRY TRANSFER MAN Devin Dougherty MD LABORATORY Performing Organization Address [facility] Co de Phone Number [facility] OF [address] [address], * (ABNORMAL) POC GLUCOSE (11/05/2023 4:54 PM DRY TRANSFER MAN) Pathologist [facility] POC Glucose 170(H) 70 - 100 mg/dL [facility] Blood 11/05/2023 4:54 PM DRY TRANSFER MAN Devin Dougherty MD LABORATORY Performing Organization Address City/[facility] Co de Phone Number [facility] [address] [address], * (ABNORMAL) MAGNESIUM (11/05/2023 4:48 PM DRY TRANSFER MAN) Magnesium 2.8(H) 1.6 - 2.4 mg/dL [facility] Blood 11/05/2023 4:48 PM DRY TRANSFER MAN 11/05/2023 4:58 PM DRY TRANSFER MAN Quinn Covarrubias MD LABORATORY [facility] [address] [address] * (ABNORMAL) POTASSIUM (11/05/2023 4:48 PM DRY TRANSFER MAN) Potassium 3.2(L) 3.5 - 5.3 mEq/L [facility] Blood 11/05/2023 4:48 PM DRY TRANSFER MAN 11/05/2023 4:58 PM DRY TRANSFER MAN Quinn Covarrubias MD LABORATORY Performing Organization Address [facility] Co de Phone Number [facility] [address] [address] * CT HEAD NO IV CONTRAST (11/05/2023 11:44 AM DRY TRANSFER MAN) Anatomical Region Laterality Modality Skull Computed Tomogra phy 11/05/2023 12:1 6 PM DRY TRANSFER MAN Impressions 11/05/2023 12:38 PM DRY TRANSFER MAN Impression: Stable head CT as compared to the study performed 7 hours earlier. Intra-axial and extra-axial hemorrhage(s) without midline shift or hydrocephalus. The basal cisterns are patent. Reading Radiologist: Ford Fernández 11/05/2023 12:38 PM DRY TRANSFER MAN Exam: Head CT without contrast, 11/05/2023 Indication: [...] * (ABNORMAL) POC GLUCOSE (11/05/2023 11:11 AM DRY TRANSFER MAN) POC Glucose 201(H) 70 - 100 mg/dL [facility] Blood 11/05/2023 11:1 1 AM DRY TRANSFER MAN Devin Dougherty MD LABORATORY Performing Organization Address City/[facility]/ZIP Co de Phone Number [facility] [address] [place] [address], * EKG ADULT (12-LEAD) (11/05/2023 6:38 AM DRY TRANSFER MAN) 11/05/2023 6:38 AM DRY TRANSFER MAN Impressions [facility] EKG ORDERS - 11/05/2023 6:38 AM DRY TRANSFER MAN SINUS RHYTHM RIGHT BUNDLE BRANCH BLOCK ??[120+ ms QRS DURATION, UPRIGHT V1, 40+ ms S IN I/aVL/V4/V5/V6] ABNORMAL ECG P-R Interval 151 ms QRS Interval 128 ms QT Interval 420 ms QTC Interval 462 ms P [place] 9 QRS [place] 27 T Wave [place] 70 Narrative Procedure Note Lauren Mills MD - 11/06/2023 IMPRESSION SINUS RHYTHM RIGHT BUNDLE BRANCH BLOCK [120+ ms QRS DURATION, UPRIGHT V1, 40+ ms S INI/aVL/V4/V5/V6] ABNORMAL ECG P-R Interval 151 ms QRS Interval 128 ms QT Interval 420 ms QTC Interval 462 ms P [place] 9 QRS [place] 27 T Wave [place] 70 Quinn Covarrubias MD EKG Performing Organization Address City/[facility]/ZIP Co de Phone Number [facility] EKG ORDERS * (ABNORMAL) POC GLUCOSE (11/05/2023 6:07 AM DRY TRANSFER MAN) POC Glucose 188(H) 70 - 100 mg/dL [facility] Blood 11/05/2023 6:07 AM DRY TRANSFER MAN Devin Dougherty MD LABORATORY [facility] [place] [address], [place] * CT HEAD NO IV CONTRAST (11/05/2023 4:54 AM DRY TRANSFER MAN) Anatomical Region Laterality Modality Skull Computed Tomogra phy 11/05/2023 4:56 AM DRY TRANSFER MAN Impressions 11/05/2023 11:09 AM DRY TRANSFER MAN Impression: 1. Stable to perhaps minimally increased [...] Reading Resident: Laith Berkowitz 11/05/2023 11:09 AM DRY TRANSFER MAN Exam: Head CT without contrast, 11/05/2023 Indication: [...] PROTHROMBIN (PT) & INR (11/05/2023 4:27 AM DRY TRANSFER MAN) PT 12.3 9.0 - 12.5 sec [facility] INR 1.1 0.8 - 1.1 [facility] Comment: This sample may have abnormal results due to the presence of lipemia. Warfarin Therapeutic Range: Standard Intensity: 2.0 - 3.0 High Intensity: 2.5 - 3.5 Blood 11/05/2023 4:27 AM DRY TRANSFER MAN 11/05/2023 4:35 AM DRY TRANSFER MAN Quinn Covarrubias MD LABORATORY Performing Organization Address City/[facility]/ZIP Co de Phone Number [facility] [place] [phone] * ICU PHOSPHORUS (11/05/2023 4:27 AM DRY TRANSFER MAN) Phosphorus 3.5 2.5 - 4.5 mg/dL [facility] Blood 11/05/2023 4:27 AM DRY TRANSFER MAN 11/05/2023 4:36 AM DRY TRANSFER MAN Devin Dougherty MD LABORATORY Performing Organization Address City/[facility]/ZIP Co de Phone Number [facility] [address] [address] * (ABNORMAL) ICU MAGNESIUM (11/05/2023 4:27 AM DRY TRANSFER MAN) Magnesium 1.5(L) 1.6 - 2.4 mg/dL [facility] Blood 11/05/2023 4:27 AM DRY TRANSFER MAN 11/05/2023 4:36 AM DRY TRANSFER MAN Devin Dougherty MD LABORATORY [facility] [address] [address] * (ABNORMAL) ICU BLOOD GAS (11/05/2023 4:27 AM DRY TRANSFER MAN) PH Art 7.38 7.35 - 7.45 [facility] PCO2 Art 42 35 - 45 mmHG [facility] PO2 Art 99(H) 75 - 85 mmHG [facility] Bicarb Art 25 22 - 26 mEq/L [facility] O2 Sat Art 98 96 - 99 % [facility] Base Exc Art 0.0 -10.0 - 2.0 mEq/L [facility] Blood Arterial 11/05/2023 4: 27 AM DRY TRANSFER MAN 11/05/2023 4:34 AM DRY TRANSFER MAN Devin Dougherty MD LABORATORY Performing Organization Address City/[facility] Co de Phone Number [facility] [address] [address] * (ABNORMAL) ICU CBC WITH PLATELET (11/05/2023 4:27 AM DRY TRANSFER MAN) WBC 13.69(H) 4.00 - 10.00 k/cmm [facility] RBC 3.49(L) 3.90 - 5.20 m/cmm [facility] Hgb 9.8(L) 11.5 - 15.7 g/dL [facility] Hematocrit 28.2(L) 34.0 - 45.0 % [facility] MCV 80.8 80.0 - 100.0 fL [facility] MCH 28.1 25.0 - 32.0 pg [facility] MCHC 34.8 31.0 - 36.0 g/dL [facility] RDW 15.4(H) 11.5 - 14.5 % [facility] Plt 330 150 - 400 k/cmm [facility] MPV 10.9 6.5 - 12.5 fL [facility] Blood 11/05/2023 4:27 AM DRY TRANSFER MAN 11/05/2023 4:35 AM DRY TRANSFER MAN Devin Dougherty MD LABORATORY [facility] [address] [address] * (ABNORMAL) ICU PANEL BASIC METABOLIC (BMP) (11/05/2023 4:27 AM DRY TRANSFER MAN) Sodium 138 135 - 148 mEq/L [facility] Potassium 3.2(L) 3.5 - 5.3 mEq/L [facility] Chloride 102 92 - 108 mEq/L [facility] CO2 24 22 - 30 mEq/L [facility] AnGap 12 8 - 16 mEq/L [facility] Glucose 200(H) 70 - 100 mg/dL [facility] BUN 16 8 - 23 mg/dL [facility] Creatinine 0.80 0.50 - 1.00 mg/dL [facility] Calcium 8.7(L) 8.8 - 10.2 mg/dL [facility] eGFR (2020 CKD-EPI) 74 >=60 ml/min/1.7 3m2 [facility] Comment: The estimated glomerular filtration rate (eGFR) was calculated using the CKD-EPI 2020 creatinine equation, which does not include race as a factor. This equation is validated in individuals 18 years of age and older, and eGFR is normalized to a body surface area of 1.73m^2. Blood 11/05/2023 4:27 AM DRY TRANSFER MAN 11/05/2023 4:36 AM DRY TRANSFER MAN Devin Dougherty MD LABORATORY Performing Organization Address City/[facility]/ZIP Co de Phone Number [facility] [address] [address] * (ABNORMAL) TROP 6H (11/05/2023 4:27 AM DRY TRANSFER MAN) 6H Trop 51(H) <=14 ng/L [facility] 6H Delta Significan t(A) Not Significant [facility] Blood 11/05/2023 4:27 AM DRY TRANSFER MAN 11/05/2023 4:35 AM DRY TRANSFER MAN Devin Dougherty MD LABORATORY Performing Organization Address [facility]/ZIP Co de Phone Number [facility] [address] [address] * (ABNORMAL) TROP 4H (11/05/2023 2:58 AM DRY TRANSFER MAN) 4H Trop 39(H) <=14 ng/L [facility] 4H Delta Significan t(A) Not Significant [facility] Blood 11/05/2023 2:58 AM DRY TRANSFER MAN 11/05/2023 3:48 AM DRY TRANSFER MAN Devin Dougherty MD LABORATORY Performing Organization Address City/[facility] Co de Phone Number [facility] [place] [phone] * CK, TOTAL (11/05/2023 1:32 AM DRY TRANSFER MAN) CK 56 26 - 192 IU/L [facility] Blood 11/05/2023 1:32 AM DRY TRANSFER MAN 11/05/2023 1:32 AM DRY TRANSFER MAN Devin Dougherty MD LABORATORY Performing Organization Address City/[facility] Co de Phone Number [place] [phone] * FIBRINOGEN (11/05/2023 1:32 AM DRY TRANSFER MAN) Fibrinogen 262 200 - 400 mg/dL [facility] Blood 11/05/2023 1:32 AM DRY TRANSFER MAN 11/05/2023 1:32 AM DRY TRANSFER MAN Devin Dougherty MD LABORATORY Performing Organization Address City/[facility] Co de Phone Number [facility] [address] [address] * PTT (APTT) (11/05/2023 1:32 AM DRY TRANSFER MAN) APTT 26.0 25.0 - 37.0 sec [facility] Blood 11/05/2023 1:32 AM DRY TRANSFER MAN 11/05/2023 1:32 AM DRY TRANSFER MAN Devin Dougherty MD LABORATORY Performing Organization Address City/[facility] Co de Phone Number [facility] [address] [address] * (ABNORMAL) PANEL HEPATIC FUNCTION (11/05/2023 1:32 AM DRY TRANSFER MAN) Pathologist [facility] Alk Phos 111(H) 35 - 104 IU/L [facility] Total Protein 6.5 6.4 - 8.3 g/dL [facility] Bili Direct na <=0.3 mg/dL [facility] Comment:Direct Bilirubin = < 0.2. Accuracy of result suspect due to lipemia. Albumin 3.8 3.8 - 5.1 g/dL [facility] Bili Total <0.2 <=1.2 mg/dL [facility] ALT (SGPT) na <=33 [facility] Comment:ALT = 15. Accuracy o f result suspect due to lipemia. AST(SGOT) na 5 - 40 [facility] Comment:AST = 27. Accuracy o f result suspect due to lipemia. Blood 11/05/2023 1:32 AM DRY TRANSFER MAN 11/05/2023 1:32 AM DRY TRANSFER MAN Devin Dougherty MD LABORATORY [facility] [address] [address] * (ABNORMAL) CBC WITH PLATELET (11/05/2023 1:32 AM DRY TRANSFER MAN) Pathologist [facility] WBC 14.77(H) 4.00 - 10.00 k/cmm [facility] RBC 3.70(L) 3.90 - 5.20 m/cmm [facility] Hgb 9.9(L) 11.5 - 15.7 g/dL [facility] Hematocrit 30.0(L) 34.0 - 45.0 % [facility] MCV 81.1 80.0 - 100.0 fL [facility] MCH 26.8 25.0 - 32.0 pg [facility] MCHC 33.0 31.0 - 36.0 g/dL [facility] RDW 15.4(H) 11.5 - 14.5 % [facility] Plt 324 150 - 400 k/cmm [facility] MPV 11.0 6.5 - 12.5 fL [facility] Blood 11/05/2023 1:32 AM DRY TRANSFER MAN 11/05/2023 1:32 AM DRY TRANSFER MAN Devin Dougherty MD LABORATORY Performing Organization Address [facility] Co de Phone Number [facility] [address] [address] * (ABNORMAL) PANEL BASIC METABOLIC (BMP) (11/05/2023 1:32 AM DRY TRANSFER MAN) Potassium 3.1(L) 3.5 - 5.3 mEq/L [facility] Sodium 138 135 - 148 mEq/L [facility] CO2 25 22 - 30 mEq/L [facility] Glucose 242(H) 70 - 100 mg/dL [facility] BUN 16 8 - 23 mg/dL [facility] Creatinine 0.76 0.50 - 1.00 mg/dL [facility] Chloride 101 92 - 108 mEq/L [facility] eGFR (2020 CKD-EPI) 79 >=60 ml/min/1.7 3m2 [facility] Comment: The estimated glomerular filtration rate (eGFR) was calculated using the CKD-EPI 2020 creatinine equation, which does not include race as a factor. This equation is validated in individuals 18 years of age and older, and eGFR is normalized to a body surface area of 1.73m^2. AnGap 12 8 - 16 mEq/L [facility] Calcium 8.8 8.8 - 10.2 mg/dL [facility] Blood 11/05/2023 1:32 AM DRY TRANSFER MAN 11/05/2023 1:32 AM DRY TRANSFER MAN Devin Dougherty MD LABORATORY Performing Organization Address [facility] Co de Phone Number [facility] [address] [phone] * (ABNORMAL) MAGNESIUM (11/05/2023 1:32 AM DRY TRANSFER MAN) Magnesium 1.5(L) 1.6 - 2.4 mg/dL [facility] Blood 11/05/2023 1:32 AM DRY TRANSFER MAN 11/05/2023 1:32 AM DRY TRANSFER MAN Devin Dougherty MD LABORATORY Performing Organization Address [facility] Co de Phone Number [facility] [address] [phone] * PHOSPHORUS (11/05/2023 1:32 AM DRY TRANSFER MAN) Phosphorus 3.4 2.5 - 4.5 mg/dL [facility] Blood 11/05/2023 1:32 AM DRY TRANSFER MAN 11/05/2023 1:32 AM DRY TRANSFER MAN Devin Dougherty MD LABORATORY Performing Organization Address [facility] Co de Phone Number [facility] [address] [address] [address] * PROTHROMBIN (PT) & INR (11/05/2023 1:32 AM DRY TRANSFER MAN) PT 11.8 9.0 - 12.5 sec [facility] INR 1.0 0.8 - 1.1 [facility] Comment: Warfarin Therapeutic Range: Standard Intensity: 2.0 - 3.0 High Intensity: 2.5 - 3.5 Blood 11/05/2023 1:32 AM DRY TRANSFER MAN 11/05/2023 1:32 AM DRY TRANSFER MAN Devin Dougherty MD LABORATORY Performing Organization Address [facility] Co de Phone Number [facility] [address] [address] * CALCIUM,IONIZED (11/05/2023 1:18 AM DRY TRANSFER MAN) PH 7.37 7.32 - 7.42 [facility] ICA, Actual 4.82 4.40 - 5.20 mg/dL [facility] ICA, pH Corrected 4.75 4.40 - 5.20 mg/dL [facility] Blood 11/05/2023 1:18 AM DRY TRANSFER MAN 11/05/2023 1:27 AM DRY TRANSFER MAN Narrative [facility] - 11/05/2023 1:44 AM DRY TRANSFER MAN Send specimen on ice! Devin Dougherty MD LABORATORY Performing Organization Address [facility] Co de Phone Number [facility] [address] [address] * LACTATE (LACTIC ACID) (11/05/2023 1:18 AM DRY TRANSFER MAN) Lactate 1.9 0.7 - 2.1 mmol/L [facility] Blood 11/05/2023 1:18 AM DRY TRANSFER MAN 11/05/2023 1:27 AM DRY TRANSFER MAN Narrative [facility] - 11/05/2023 1:45 AM DRY TRANSFER MAN Send specimen on ice! Devin Dougherty MD LABORATORY Performing Organization Address [facility] Co de Phone Number [facility] [address] [address] * BLOOD GASES (11/05/2023 1:18 AM DRY TRANSFER MAN) PH Art 7.37 7.35 - 7.45 [facility] PCO2 Art 43 35 - 45 mmHG [facility] PO2 Art 83 75 - 85 mmHG [facility] Bicarb Art 25 22 - 26 mEq/L [facility] O2 Sat Art 96 96 - 99 % [facility] Base Exc Art -0.3 -10.0 - 2.0 mEq/L [facility] Blood Arterial 11/05/2023 1: 18 AM DRY TRANSFER MAN 11/05/2023 1:27 AM DRY TRANSFER MAN Devin Dougherty MD LABORATORY Performing Organization Address [facility] Co de Phone Number [facility] [address] [address] * (ABNORMAL) TROP 2H (11/05/2023 1:18 AM DRY TRANSFER MAN) 2H Trop 18(H) <=14 ng/L [facility] 2H Delta Indeterminate Not Significant [facility] Blood 11/05/2023 1:18 AM DRY TRANSFER MAN 11/05/2023 1:45 AM DRY TRANSFER MAN Devin Dougherty MD LABORATORY Performing Organization Address [facility]/ZIP Co de Phone Number [facility] [address] [address] * CT HEAD-NECK - ANGIO - W/IV CON (11/05/2023 12:09 AM DRY TRANSFER MAN) Anatomical Region Laterality Modality Skull Computed Tomogra phy 11/05/2023 12:2 1 AM DRY TRANSFER MAN Impressions 11/05/2023 10:22 AM DRY TRANSFER MAN Impression: ?? Slightly increased size of the [...] Fernández Resident: Laith Berkowitz 11/05/2023 10:22 AM [address]Y TRANSFER MAN CT angiogram of the Head with contrast, [...] and reviewed by the Radiologist using the [employer] workstation, and these images were archived in [...] and reviewed by the Radiologist using the [employer] workstation,and these images were archived in the [...] NEURO * (ABNORMAL) URINALYSIS,TOTAL (11/04/2023 11:55 PM DRY TRANSFER MAN) Color COLORLESS YELLOW [facility] Appearance CLEAR CLEAR [facility] Urine Glucose 100(A) NEGATIVE mg/dL [facility] Bili UA NEGATIVE NEGATIVE [facility] Ketones NEGATIVE NEGATIVE [facility] Specific Garrett 1.036(A) 1.003 - 1.030 [facility] Blood Ur NEGATIVE Neg-Trace [facility] PH Urine 7.5(H) 5.0 - 7.0 [facility] Protein Ur TRACE Neg-Trace [facility] Urobilinogen NORMAL NORMAL EU/dL [facility] Nitrite Ur NEGATIVE NEGATIVE [facility] Leuk Est NEGATIVE Neg-Trace [facility] WBC Ur 0-5 0 - 5 perHPF [facility] RBC Ur 0-3 0 - 3 perHPF [facility] SQ EPITH 0-5 0 - 5 perHPF [facility] Urinalysis Performed at: [facility] Urine 11/04/2023 11:5 5 PM DRY TRANSFER MAN 11/05/2023 12:03 AM DRY TRANSFER MAN Devin Dougherty MD LABORATORY [facility] [address] [address] * PF INSERT CATH,ART,PERCUT,SHORTTERM (11/04/2023 11:43 PM DRY TRANSFER MAN) Narrative Rito Graf MD - 11/04/2023 11:43 PM DRY TRANSFER MAN Priscilla Holcomb MD ? 11/04/2023 11:44 PM Arterial Line Performed by: Priscilla Holcomb MD Authorized by: Rito Graf MD ?? Consent: ??Consent obtained: ??Verbal ??Consent given by: ??Patient ??Risks discussed: ??Pain, bleeding and infection [place] protocol: ??Patient identity confirmed: ??Verbally with patient, [...] * ED EKG (12-LEAD) (11/04/2023 11:25 PM DRY TRANSFER MAN) 11/04/2023 11:2 5 PM DRY TRANSFER MAN Impressions [facility] EKG ORDERS - 11/04/2023 11:25 PM DRY TRANSFER MAN SINUS TACHYCARDIA RIGHT BUNDLE BRANCH BLOCK ??[120+ ms QRS DURATION, UPRIGHT V1, 40+ ms S IN I/aVL/V4/V5/V6] ABNORMAL ECG P-R Interval 173 ms QRS Interval 127 ms QT Interval 395 ms QTC Interval 458 ms P [place] 57 QRS [place] 34 T Wave [place] 43 Narrative Procedure Note Vineet Díaz MD - 11/05/2023 IMPRESSION SINUS TACHYCARDIA RIGHT BUNDLE BRANCH BLOCK [120+ ms QRS DURATION, UPRIGHT V1, 40+ ms S INI/aVL/V4/V5/V6] ABNORMAL ECG P-R Interval 173 ms QRS Interval 127 ms QT Interval 395 ms QTC Interval 458 ms P [place] 57 QRS [place] 34 T Wave [place] 43 Devin Dougherty MD EKG [facility] CVIS EKG ORDERS * CT SPINE LUMBAR NO IV CON (11/04/2023 11:05 PM DRY TRANSFER MAN) Anatomical Region Laterality Modality Lumbar Spine Computed Tomogra phy 11/04/2023 11:2 3 PM DRY TRANSFER MAN Impressions 11/05/2023 9:22 AM DRY TRANSFER MAN Impression: 1. No suspected acute fracture or dislocation of the thoracic or lumbar spine. ?? 2. Ddyw-ve-ovhdfvmg lumbar spondylosis without suspected high-grade spinal canal or neural foraminal narrowing. I have personally reviewed the image(s) and initial interpretation, and I agree with the findings as documented by the resident/fellow. Reading Radiologist: Ford Fernández Resident: Laith Berkowitz Narrative 11/05/2023 9:22 AM DRY TRANSFER MAN Exam: Thoracic and Lumbar Spine CT Reconstructions, [...] dislocation of the thoracic or lumbarspine. 2. Mntc-ih-wwaklotd lumbar spondylosis without suspected high-grade spinalcanal or neural foraminal narrowing. I have personally reviewed the image(s) and initial interpretation, and Iagree with the findings as documented by the resident/fellow. Reading Radiologist: Ford Fernández Resident: Laith Berkowitz Devin Dougherty MD RAD CT NEURO * CT SPINE THORACIC NO IV CON (11/04/2023 11:05 PM DRY TRANSFER MAN) Anatomical Region Laterality Modality Thoracic Spine Computed Tomogra phy 11/04/2023 11:2 3 PM DRY TRANSFER MAN Impressions 11/05/2023 9:22 AM DRY TRANSFER MAN Impression: 1. No suspected acute fracture or dislocation of the thoracic or lumbar spine. ?? 2. Ihnx-yd-jrcqtisi lumbar spondylosis without suspected high-grade spinal canal or neural foraminal narrowing. I have personally reviewed the image(s) and initial interpretation, and I agree with the findings as documented by the resident/fellow. Reading Radiologist: Ford Fernández Resident: Laith Berkowitz Narrative 11/05/2023 9:22 AM DRY TRANSFER MAN Exam: Thoracic and Lumbar Spine CT Reconstructions, [...] dislocation of the thoracic or lumbarspine. 2. Kpfu-dm-lakmktdt lumbar spondylosis without suspected high-grade spinalcanal or neural foraminal narrowing. I have personally reviewed the image(s) and initial interpretation, and Iagree with the findings as documented by the resident/fellow. Reading Radiologist: Ford Fernández Resident: Laith Berkowitz Devin Dougherty MD RAD CT NEURO * CT CHEST/ABD/PELVIS W/IV CONT (11/04/2023 11:05 PM DRY TRANSFER MAN) Anatomical Region Laterality Modality Chest Computed Tomogra phy 11/04/2023 11:2 9 PM DRY TRANSFER MAN Impressions 11/05/2023 6:33 AM DRY TRANSFER MAN Impression: 1. No acute traumatic sequelae in [...] Reading Resident: Laith Berkowitz 11/05/2023 6:33 AM DRY TRANSFER MAN Comparison: None Indication: Trauma (STAB) ?? Technique: [...] CERVICAL NO IV CON (11/04/2023 11:05 PM DRY TRANSFER MAN) Anatomical Region Laterality Modality Cervical Spine Computed Tomogra phy 11/04/2023 11:2 0 PM DRY TRANSFER MAN Impressions 11/05/2023 8:27 AM DRY TRANSFER MAN Impression: ?? 1. No acute fracture or traumatic subluxation of the cervical vertebrae. 2. Mild degenerative changes of the cervical spine without high-grade spinal canal or neural foraminal narrowing. I have personally reviewed the image(s) and initial interpretation, and I agree with the findings as documented by the resident/fellow. Reading Radiologist: Ford Fernández Resident: Laith Berkowitz Narrative 11/05/2023 8:27 AM DRY TRANSFER MAN Exam: Cervical spine CT without contrast, 11/04/2023 [...] spinal canal narrowing. C5-6: Mild left and mdkw-th-cigvyybk right neural foraminal narrowing. Borderline mild spinal [...] spinal canal narrowing. C5-6: Mild left and sqoe-bv-bhmanwmn right neural foraminal narrowing.Borderline mild spinal canal [...] HEAD NO IV CONTRAST (11/04/2023 11:05 PM DRY TRANSFER MAN) Anatomical Region Laterality Modality Skull Computed Tomogra phy 11/04/2023 11:1 2 PM DRY TRANSFER MAN Impressions 11/05/2023 10:23 AM DRY TRANSFER MAN Impression: 1. Thin subdural hemorrhage, measuring up [...] Fernández Resident: Laith Berkowitz 11/05/2023 10:23 AM DRY TRANSFER MAN Exam: Head CT without contrast, 11/05/2023 Indication: [...] VIEW AP OR PA* (11/04/2023 10:57 PM DRY TRANSFER MAN) Anatomical Region Laterality Modality Chest Computed Radiogr aphy 11/04/2023 11:0 0 PM DRY TRANSFER MAN Impressions 11/05/2023 6:18 AM DRY TRANSFER MAN Impression: No acute cardiopulmonary findings. I have personally reviewed the image(s) and initial interpretation, and I agree with the findings as documented by the resident/fellow. Reading Radiologist: Scott Porras Resident: Laith Berkowitz Narrative 11/05/2023 6:18 AM DRY TRANSFER MAN Technique: XR CHEST 1 VIEW AP OR [...] HEMOGLOBIN TOTAL (ED ONLY) (11/04/2023 10:48 PM DRY TRANSFER MAN) Hgb 10.3(L) 11.5 - 15.7 g/dL [facility] Blood 11/04/2023 10:4 8 PM DRY TRANSFER MAN 11/04/2023 10:49 PM DRY TRANSFER MAN Devin Dougherty MD LABORATORY [facility] [address] [address] * (ABNORMAL) ED CHEMISTRY LABS(NA,K,CL,CO2,GLU,CREAT,CA-IONIZED,ANION GAP) (11/04/2023 10:48 PM DRY TRANSFER MAN) Sodium 144 135 - 148 mEq/L [facility] Chloride 106 92 - 108 mEq/L [facility] AnGap 11 8 - 16 mEq/L [facility] Glucose 234(H) 70 - 100 mg/dL [facility] ICA, Actual 4.52 4.40 - 5.20 mg/dL [facility] ICA, pH Corrected 4.51 4.40 - 5.20 mg/dL [facility] Creatinine 0.81 0.50 - 1.00 mg/dL [facility] BICARB 27(H) 22 - 26 mEq/L [facility] eGFR (2020 CKD-EPI) 73 >=60 ml/min/1.7 3m2 [facility] Comment: The estimated glomerular filtration rate (eGFR) was calculated using the CKD-EPI 2020 creatinine equation, which does not include race as a factor. This equation is validated in individuals 18 years of age and older, and eGFR is normalized to a body surface area of 1.73m^2. Potassium 2.8(AA) 3.5 - 5.3 mEq/L [facility] Comment:Critcal Result Low Blood 11/04/2023 10:4 8 PM DRY TRANSFER MAN 11/04/2023 10:49 PM DRY TRANSFER MAN Narrative [facility] - 11/04/2023 10:55 PM DRY TRANSFER MAN Critical value for Potassium called to and read back by Rafa Hutchins RN in ??EDSTAB 2 at 11/04/2023 22:55:31 DRY TRANSFER MAN by Eleni Spring MLS. Devin Dougherty MD LABORATORY Performing Organization Address [facility] Co de Phone Number [facility] [address] [address] * (ABNORMAL) ANTI XA HEPARIN UNFRACTIONATED (11/04/2023 10:45 PM DRY TRANSFER MAN) Anti XA Hep U <0.04(L) 0.30 - 0.70 IU/mL [facility] Blood 11/04/2023 10:4 5 PM DRY TRANSFER MAN 11/04/2023 11:05 PM DRY TRANSFER MAN Devin Dougherty MD LABORATORY Performing Organization Address [facility] Co de Phone Number [facility] [address] [address] * EXTRA TUBE - SST (11/04/2023 10:45 PM DRY TRANSFER MAN) SST TUBE Stored [facility] Comment:SST tubes (Serum Sep arator) are stored in the lab for 3 days from the collection date. Blood 11/04/2023 10:4 5 PM DRY TRANSFER MAN 11/04/2023 10:50 PM DRY TRANSFER MAN Devin Dougherty MD LABORATORY Performing Organization Address [facility] Co de Phone Number [facility] [address] [address] * EXTRA TUBE - LIGHT GREEN (11/04/2023 10:45 PM DRY TRANSFER MAN) Pathologist [facility] LIGHT GREEN TUBE Stored [facility] Comment:Green tubes (Powderly Heparin) are stored in the lab for 3 days from the collection date. Blood 11/04/2023 10:4 5 PM DRY TRANSFER MAN 11/04/2023 10:50 PM DRY TRANSFER MAN Devin Dougherty MD LABORATORY Performing Organization Address City/[facility]/ZIP Co de Phone Number [facility] [address] [address] * HS TROPONIN (11/04/2023 10:45 PM DRY TRANSFER MAN) [facility] HS Troponin I 10 <=14 ng/L [facility] Blood 11/04/2023 10:4 5 PM DRY TRANSFER MAN 11/04/2023 11:05 PM DRY TRANSFER MAN Narrative [facility] - 11/04/2023 11:36 PM DRY TRANSFER MAN First Occurrence of the Troponin order is to be drawn Stat by Nursing staff on the unit. Devin Dougherty MD LABORATORY Performing Organization Address [facility] Co de Phone Number [address] [address] * (ABNORMAL) PTT (APTT) (11/04/2023 10:45 PM DRY TRANSFER MAN) [facility] APTT 22.9(L) 25.0 - 37.0 sec [facility] Blood 11/04/2023 10:4 5 PM DRY TRANSFER MAN 11/04/2023 11:05 PM DRY TRANSFER MAN Devin Dougherty MD LABORATORY Performing Organization Address [facility] Co de Phone Number [address] [address] * ED INR (11/04/2023 10:45 PM DRY TRANSFER MAN) Pathologist [facility] ED INR 1.0 0.8 - 1.1 [facility] Comment: Warfarin Therapeutic Range: Standard Intensity: 2.0 - 3.0 High Intensity: 2.5 - 3.5 Blood 11/04/2023 10:4 5 PM DRY TRANSFER MAN 11/04/2023 10:48 PM DRY TRANSFER MAN Devin Dougherty MD LABORATORY [facility] [address] [address] * PRECAUTIONARY TUBE (11/04/2023 10:45 PM DRY TRANSFER MAN) Prec Tube Precautionary Blood Bank Specimen Received. [facility] Blood 11/04/2023 10:4 5 PM DRY TRANSFER MAN 11/04/2023 10:52 PM DRY TRANSFER MAN Devin Dougherty MD LAB TRANSFUSION SER VICES Performing Organization Address [facility] Co de Phone Number [address] [address] * (ABNORMAL) LACTATE (LACTIC ACID) (11/04/2023 10:45 PM DRY TRANSFER MAN) Lactate 2.7(H) 0.7 - 2.1 mmol/L [facility] Blood 11/04/2023 10:4 5 PM DRY TRANSFER MAN 11/04/2023 10:50 PM DRY TRANSFER MAN Narrative [facility] - 11/04/2023 10:50 PM DRY TRANSFER MAN Send specimen on ice! Devin Dougherty MD LABORATORY Performing Organization Address [facility] Co de Phone Number [facility] [address] [address] * FIBRINOGEN (11/04/2023 10:45 PM DRY TRANSFER MAN) Fibrinogen 288 200 - 400 mg/dL [facility] Blood 11/04/2023 10:4 5 PM DRY TRANSFER MAN 11/04/2023 11:05 PM DRY TRANSFER MAN Devin Dougherty MD LABORATORY Performing Organization Address City/[facility]/ZIP Co de Phone Number [facility] [address] [address] * (ABNORMAL) CBC WITH PLTS/AUTO DIFF (11/04/2023 10:45 PM DRY TRANSFER MAN) WBC 9.42 4.00 - 10.00 k/cmm [facility] RBC 3.86(L) 3.90 - 5.20 m/cmm [facility] Hgb 9.8(L) 11.5 - 15.7 g/dL [facility] Hematocrit 31.8(L) 34.0 - 45.0 % [facility] MCV 82.4 80.0 - 100.0 fL [facility] MCH 25.4 25.0 - 32.0 pg [facility] MCHC 30.8(L) 31.0 - 36.0 g/dL [facility] RDW 15.3(H) 11.5 - 14.5 % [facility] Plt 292 150 - 400 k/cmm [facility] MPV 11.1 6.5 - 12.5 fL [facility] Automated Abs Neutrophil 5.80 1.70 - 6.50 k/cmm [facility] Comment:Preliminary ANC, Fin al Result to Follow Abs Immature Granulocyte 0.07 0.00 - 0.09 k/cmm [facility] Comment:The Immature Granulo cyte Absolute count contains metamyelocytes and myelocytes. Abs Neutrophil 5.80 1.70 - 6.50 k/cmm [facility] Abs Lymphocyte 2.33 0.80 - 4.00 k/cmm [facility] Abs Monocyte 0.88 0.20 - 1.00 k/cmm [facility] Abs Eosinophil 0.27 0.00 - 0.60 k/cmm [facility] Abs Basophil 0.07 0.00 - 0.20 k/cmm [facility] Blood 11/04/2023 10:4 5 PM DRY TRANSFER MAN 11/04/2023 11:05 PM DRY TRANSFER MAN Devin Dougherty MD LABORATORY [facility] [address] [place] [phone] * (ABNORMAL) BLOOD GASES (11/04/2023 10:45 PM DRY TRANSFER MAN) Pathologist [facility] PH Jalen 7.39 7.32 - 7.42 [facility] PCO2 Jalen 45 41 - 51 mmHG [facility] PO2 Jalen 41(H) 25 - 40 mmHG [facility] Bicarb Jalen 27 24 - 28 mEq/L [facility] O2 Sat Jalen 69 % [facility] Base Exc Jalen 1.4 -10.0 - 2.0 mEq/L [facility] Blood Venous 11/04/2023 10:4 5 PM DRY TRANSFER MAN 11/04/2023 10:50 PM DRY TRANSFER MAN Devin Dougherty MD LABORATORY [facility] [address] [address] * ED US CRITICAL CARE (11/04/2023 10:40 PM DRY TRANSFER MAN) Anatomical Region Laterality Modality Ultrasound Narrative 11/04/2023 11:28 PM DRY TRANSFER MAN ED Trauma eFAST Ultrasound Indications: Suspicion of [...] Primary Fall, initial encounter SDH (subdural hematoma) ([facility]) Subdural hemorrhage SAH (subarachnoid hemorrhage) ([facility]) Subarachnoid hemorrhage Traumatic brain injury with loss of consciousness, initial encounter ([facility]) documented in this encounter Admitting Diagnoses Diagnosis Fall, initial encounter documented in this encounter Administered Medications Inactive Administered Medications - up to 3 most recent administrations Medication Order MAR Action Action Date Dose Rate Site acetaminophen (OFIRMEV) 10 mg/mL IV 1,000 mg 1,000 mg, Intravenous, Q6H, Administer over 15 Minutes, First dose on Sun11/05/23 at 0255, Until Discontinued New Bag 11/05/2023 4:19 AM DRY TRANSFER MAN 1,000 mg 400 mL /hr acetaminophen tablet 650 mg 650 mg, Oral, Q6H PRN, Starting on Sun11/05/23 at 0859, Until Sun11/16/23 at 1221, Mild Pain (Use First) Given 11/12/2023 2:59 AM DRY TRANSFER MAN 650 mg Given 11/10/2023 3:29 PM DRY TRANSFER MAN 650 mg Given 11/10/2023 9:23 AM DRY TRANSFER MAN 650 mg allopurinol (ZYLOPRIM) half tablet 50 mg 50 mg, Oral, DAILY, First dose on Sun11/08/23 at 0930, Until Discontinued Given 11/16/2023 7:33 AM DRY TRANSFER MAN 50 mg Given 11/15/2023 7:59 AM DRY TRANSFER MAN 50 mg Given 11/14/2023 8:15 AM DRY TRANSFER MAN 50 mg amLODIPine (NORVASC) tablet 5 mg 5 mg, Oral, DAILY, First dose on Sun11/12/23 at 1045, Until Discontinued Given 11/16/2023 7:33 AM DRY TRANSFER MAN 5 mg Given 11/15/2023 8:00 AM DRY TRANSFER MAN 5 mg Given 11/14/2023 8:14 AM DRY TRANSFER MAN 5 mg bisacodyl (DULCOLAX) suppository 10 mg 10 mg, Rectal, ONE TIME-NOW, 1 dose, On Sun11/14/23 at 0910 Given 11/14/2023 10:10 AM DRY TRANSFER MAN 10 mg carvedilol (COREG) tablet 12.5 mg 12.5 mg, Oral, BID, First dose on Sun11/05/23 at 2000, Until Discontinued Given 11/06/2023 8:03 PM DRY TRANSFER MAN 12.5 mg Given 11/06/2023 8:50 AM DRY TRANSFER MAN 12.5 mg Given 11/05/2023 8:04 PM DRY TRANSFER MAN 12.5 mg carvedilol (COREG) tablet 12.5 mg 12.5 mg, Oral, BID, First dose (after last modification) on Sun11/07/23 at 2000, Until Discontinued Given 11/09/2023 9:04 AM DRY TRANSFER MAN 12.5 mg Given 11/08/2023 7:48 PM DRY TRANSFER MAN 12.5 mg Given 11/08/2023 7:53 AM DRY TRANSFER MAN 12.5 mg carvedilol (COREG) tablet 6.25 mg 6.25 mg, Oral, BID, First dose (after last modification) on Sun11/09/23 at 2000, Until Discontinued Given 11/16/2023 7:34 AM [employer] 6.25 mg Given 11/15/2023 9:11 PM [employer] 6.25 mg Given 11/15/2023 8:00 AM [employer] 6.25 mg chlorthaLIDONE (HYGROTON) tablet 25 mg 25 mg, Oral, DAILY, First dose (after last reorder) on Sun11/06/23 at 1100, Until Discontinued Given 11/06/2023 2:55 PM [employer] 25 mg chlorthaLIDONE (HYGROTON) tablet 25 mg 25 mg, Oral, DAILY, First dose (after last modification) on Sun11/08/23 at 0800, Until Discontinued Given 11/16/2023 7:33 AM DRY TRANSFER MAN 25 mg Given 11/15/2023 7:59 AM DRY TRANSFER MAN 25 mg Given 11/14/2023 8:15 AM DRY TRANSFER MAN 25 mg clevidipine (CLEVIPREX) 50 mg in 100 mL emulsion 0-21 mg/hr (0-42 mL/hr), Start infusion at (mg/hr): 2, Titrate to: SBP (mmHg), of: 140, Intravenous, CONTINUOUS, Starting on Sun11/04/23 at 2320, Until Sun11/06/23 at 0846 Rate changed 11/06/2023 5:34 AM DRY TRANSFER MAN 8 mg/hr 16 mL/hr New Bag 11/06/2023 4:49 AM DRY TRANSFER MAN 6 mg/hr 12 mL/hr Rate changed 11/06/2023 1:58 AM DRY TRANSFER MAN 6 mg/hr 12 mL/hr clevidipine (CLEVIPREX) 50 mg in 100 mL emulsion 0-21 mg/hr (0-42 mL/hr), Start infusion at (mg/hr): 1, Titrate to: SBP (mmHg), of: 140, Intravenous, CONTINUOUS, Starting on Sun11/05/23 at 0120, Until Sun11/05/23 at 0246 New Bag 11/05/2023 1:46 AM DRY TRANSFER MAN 21 mg/hr 42 mL/hr clevidipine (CLEVIPREX) 50 mg in 100 mL emulsion 0-21 mg/hr (0-42 mL/hr), Start infusion at (mg/hr): 2, Titrate to: SBP (mmHg), of: 160, Intravenous, CONTINUOUS, Starting on Sun11/06/23 at 0905, Until Sun11/07/23 at 0711 Rate changed 11/06/2023 4:58 PM DRY TRANSFER MAN 2 mg/hr 4 mL/hr Restarted 11/06/2023 4:50 PM DRY TRANSFER MAN 3 mg/hr 6 mL/hr Rate changed 11/06/2023 2:56 PM DRY TRANSFER MAN 3 mg/hr 6 mL/hr DC MED REC [...] 0905, Until Discontinued Given 11/16/2023 7:33 AM DRY TRANSFER MAN 250 mg Given 11/15/2023 8:58 PM DRY TRANSFER MAN 250 mg Given 11/15/2023 7:59 AM DRY TRANSFER MAN 250 mg enoxaparin (LOVENOX) 30 mg/0.3 mL injection 30 mg 30 mg, Subcutaneous, Q12H, First dose on Sun11/07/23 at 2000, Until Discontinued Given 11/15/2023 8:57 PM DRY TRANSFER MAN 30 mg Abdominal Tissue Given 11/15/2023 8:02 AM DRY TRANSFER MAN 30 mg Le ft Upper Arm Given 11/14/2023 8:20 PM DRY TRANSFER MAN 30 mg Ri ght Upper Arm hydrALAZINE (APRESOLINE) 20 mg/mL injection 10 mg 10 mg, IV Push, Q4H PRN, Starting on Sun11/07/23 at 1004, Until Sun11/08/23 at 0906, SBP greater than 160 mmHg Given 11/07/2023 5:01 PM DRY TRANSFER MAN 10 mg hydrALAZINE (APRESOLINE) 20 mg/mL injection 20 mg 20 mg, IV Push, ONE TIME-NOW, 1 dose, On Sun11/07/23 at 1005 Given 11/07/2023 10:29 AM DRY TRANSFER MAN 20 mg insulin ASPART (NovoLOG) FlexPen Insulin [...] 0120, Until Discontinued Given 11/05/2023 5:53 PM DRY TRANSFER MAN 1 UNITS Abdominal Tissue Given 11/05/2023 12:40 PM DRY TRANSFER MAN 2 UNITS L eft Upper Arm Given 11/05/2023 8:00 AM DRY TRANSFER MAN 1 UNITS Le ft Upper Arm insulin [...] 1630, Until Discontinued Given 11/13/2023 4:35 PM DRY TRANSFER MAN 1 UNITS Right Upper Arm Given 11/13/2023 11:56 AM DRY TRANSFER MAN 1 UNITS L eft Upper Quadrant Abdomen Given 11/09/2023 5:47 PM DRY TRANSFER MAN 1,747 UNITS A bdominal Tissue insulin ASPART [...] Sun11/04/23 at 2310 Given 11/04/2023 11:07 PM DRY TRANSFER MAN 120 mL Left Arm iohexol (OMNIPAQUE) 350 mg/mL injection IV Push, RAD ONE TIME AUTO ACKNOWLEDGE, 1 dose, On Sun11/05/23 at 0010 Given 11/05/2023 12:09 AM DRY TRANSFER MAN 60 mL labetalol (NORMODYNE;TRANDATE) 5 mg/mL injection 10 mg 10 mg, IV Push, Q1H PRN, Starting on Sun11/07/23 at 1004, Until Sun11/08/23 at 0906, SBP greater than 160 mmHg Given 11/08/2023 5:53 AM DRY TRANSFER MAN 10 mg Given 11/08/2023 4:16 AM DRY TRANSFER MAN 10 mg Given 11/08/2023 1:27 AM DRY TRANSFER MAN 10 mg lactated ringers infusion at 75 mL/hr, Intravenous, CONTINUOUS, Starting on Sun11/07/23 at 1055, Until Sun11/07/23 at 1625 Rate changed 11/07/2023 11:53 AM DRY TRANSFER MAN 75 mL/hr New Bag 11/07/2023 11:23 AM DRY TRANSFER MAN 110 mL/hr levETIRAcetam (KEPPRA) 750 mg in NaCl 0.9% 100 mL IVPB 750 mg, Intravenous, Q12H, Administer over 15 Minutes, First dose on Sun11/07/23 at 1400, Last dose on Sun11/12/23 at 0800 New Bag 11/08/2023 8:02 AM DRY TRANSFER MAN 750 mg 430 mL/hr New Bag 11/07/2023 3:10 PM DRY TRANSFER MAN 750 mg 430 mL/hr levETIRAcetam (KEPPRA) tablet 1,000 mg 1,000 mg, Oral, BID, 11 doses, First dose on Sun11/06/23 at 1999, Last dose on Sun11/11/23 at 1999 Given 11/06/2023 8:03 PM DRY TRANSFER MAN 1,000 mg levETIRAcetam (KEPPRA) tablet 750 mg 750 mg, Oral, BID, 7 doses, First dose on Sun11/08/23 at 1999, Last dose on Sun11/11/23 at 1999 Given 11/11/2023 7:57 PM DRY TRANSFER MAN 750 mg Given 11/11/2023 8:55 AM DRY TRANSFER MAN 750 mg Given 11/10/2023 8:58 PM DRY TRANSFER MAN 750 mg levETIRAcetam in NaCl (KEPPRA) 1000 mg/100 mL IVPB 1,000 mg 1,000 mg, Intravenous, Q12H, Administer over 15 Minutes, First dose on Sun11/05/23 at 0800, Last dose on Sun11/11/23 at 0800 New Bag 11/05/2023 8:04 PM DRY TRANSFER MAN 1,000 mg New Bag 11/05/2023 8:08 AM DRY TRANSFER MAN 1,000 mg levETIRAcetam in NaCl (KEPPRA) 1000 mg/100 mL IVPB 2,000 mg 2,000 mg, Intravenous, ONE TIME, Administer over 15 Minutes, On Sun11/04/23 at 2345 New Bag 11/04/2023 11:40 PM DRY TRANSFER MAN 2,000 mg losartan (COZAAR) tablet 25 mg 25 mg, Oral, DAILY, First dose on Sun11/05/23 at 0900, Until Discontinued Given 11/06/2023 8:50 AM DRY TRANSFER MAN 25 mg Given 11/05/2023 11:13 AM DRY TRANSFER MAN 25 mg losartan (COZAAR) tablet 25 mg 25 mg, Oral, BID, First dose (after last modification) on Sun11/13/23 at 0800, Until Discontinued Given 11/16/2023 7:33 AM DRY TRANSFER MAN 25 mg Given 11/15/2023 8:58 PM DRY TRANSFER MAN 25 mg Given 11/15/2023 8:00 AM DRY TRANSFER MAN 25 mg losartan (COZAAR) tablet 50 mg 50 mg, Oral, DAILY, First dose (after last modification) on Sun11/08/23 at 0800, Until Discontinued Given 11/12/2023 8:47 AM DRY TRANSFER MAN 50 mg Given 11/11/2023 8:55 AM DRY TRANSFER MAN 50 mg Given 11/10/2023 9:23 AM DRY TRANSFER MAN 50 mg magnesium sulfate 2 g IVPB 2 g, Intravenous, ONE TIME, Administer over 1 Hours, On Sun11/05/23 at 0220 New Bag 11/05/2023 2:59 AM DRY TRANSFER MAN 2 g 50 mL/hr magnesium sulfate 2 g IVPB 2 g, Intravenous, ONE TIME, Administer over 1 Hours, On Sun11/05/23 at 0620 New Bag 11/05/2023 8:08 AM DRY TRANSFER MAN 2 g 50 mL/hr melatonin tablet 3 mg 3 mg, Oral, BEDTIME, First dose on Sun11/08/23 at 2000, Until Discontinued Given 11/15/2023 8:57 PM DRY TRANSFER MAN 3 mg Given 11/14/2023 8:17 PM DRY TRANSFER MAN 3 mg Given 11/13/2023 8:41 PM DRY TRANSFER MAN 3 mg metFORMIN (GLUCOPHAGE) tablet 500 mg 500 mg, Oral, BID, First dose on Sun11/15/23 at 1010, Until Discontinued Given 11/16/2023 7:33 AM DRY TRANSFER MAN 500 mg Given 11/15/2023 8:57 PM DRY TRANSFER MAN 500 mg Given 11/15/2023 12:47 PM DRY TRANSFER MAN 500 mg NaCl 0.9% infusion at 100 mL/hr, Intravenous, CONTINUOUS, Starting on Sun11/05/23 at 0120, Until Sun11/05/23 at 1705 Infusing 11/05/2023 12:00 PM DRY TRANSFER MAN 100 mL/hr Infusing 11/05/2023 11:00 AM DRY TRANSFER MAN 100 mL/hr Infusing 11/05/2023 10:00 AM DRY TRANSFER MAN 100 mL/hr naproxen (NAPROSYN) tablet 500 mg 500 mg, Oral, BID, 19 doses, First dose on Sun11/08/23 at 0845, Last dose on Sun11/17/23 at 2000 Given 11/16/2023 7:33 AM DRY TRANSFER MAN 500 mg Given 11/15/2023 8:57 PM DRY TRANSFER MAN 500 mg Given 11/15/2023 7:58 AM DRY TRANSFER MAN 500 mg OLANZapine (ZyPREXA ZYDIS) disintegrating tablet 2.5 mg 2.5 mg, Oral, BEDTIME, First dose (after last modification) on Sun11/15/23 at 0230, Until Discontinued Given 11/15/2023 9:01 PM DRY TRANSFER MAN 2.5 mg Given 11/15/2023 3:27 AM DRY TRANSFER MAN 2.5 mg OLANZapine (ZyPREXA) tablet 10 mg 10 mg, Oral, BEDTIME PRN, Starting on Sun11/07/23 at 0048, Until Sun11/07/23 at 0836, Agitation Given 11/07/2023 1:46 AM DRY TRANSFER MAN 10 mg ondansetron (ZOFRAN ODT) disintegrating tablet 4 mg 4 mg, Oral, TID PRN, Starting on Sun11/06/23 at 1020, Until Sun11/16/23 at 1221, Nausea/Vomiting (Use First) ondansetron (ZOFRAN) 4 mg/2 mL injection 4 mg 4 mg, IV Push, ONE TIME, 1 dose, On Sun11/06/23 at 1025 Given 11/06/2023 10:31 AM DRY TRANSFER MAN 4 mg ondansetron (ZOFRAN) 4 mg/2 mL injection 1 dose, Starting on Sun11/06/23 at 1024, Until Sun11/06/23 at 1031 polyethylene glycol 3350 (MIRALAX;GLYCOLAX) packet 17 g 17 g, Oral, DAILY, First dose on Sun11/06/23 at 0800, Until Discontinued Given 11/13/2023 8:24 AM DRY TRANSFER MAN 17 g Given 11/12/2023 8:47 AM DRY TRANSFER MAN 17 g Given 11/11/2023 8:56 AM DRY TRANSFER MAN 17 g polyethylene glycol 3350 (MIRALAX;GLYCOLAX) packet 17 g 17 g, Oral, BID, First dose (after last modification) on Sun11/14/23 at 0800, Until Discontinued Given 11/15/2023 8:57 PM DRY TRANSFER MAN 17 g Given 11/15/2023 8:00 AM DRY TRANSFER MAN 17 g Given 11/14/2023 8:19 PM DRY TRANSFER MAN 17 g potassium chloride (K-DUR) tablet 40 mEq 40 mEq, Oral, ONE TIME, 1 dose, On Sun11/09/23 at 0735 Given 11/09/2023 9:43 AM DRY TRANSFER MAN 40 mEq potassium chloride (K-DUR) tablet 40 mEq 40 mEq, Oral, ONE TIME-NOW, 1 dose, On Sun11/13/23 at 1025 Given 11/13/2023 10:51 AM DRY TRANSFER MAN 40 mEq potassium chloride (K-DUR) tablet 40 mEq 40 mEq, Oral, DAILY, First dose on Sun11/14/23 at 0800, Until Discontinued Given 11/16/2023 7:34 AM DRY TRANSFER MAN 40 mEq Given 11/15/2023 7:58 AM DRY TRANSFER MAN 40 mEq Given 11/14/2023 8:15 AM DRY TRANSFER MAN 40 mEq potassium chloride (K-CANDIDO) 20 mEq 20 mEq, Oral, ONE TIME, 1 dose, On Sun11/05/23 at 1955 Given 11/05/2023 10:32 PM DRY TRANSFER MAN 20 mEq potassium chloride (K-CANDIDO) powder 20 mEq 20 mEq, Oral, ONE TIME, 1 dose, On Sun11/13/23 at 1540 Given 11/13/2023 4:35 PM DRY TRANSFER MAN 20 mEq potassium chloride IVPB 10 mEq 10 mEq, Intravenous, ONE TIME, Administer over 60 Minutes, On Sun11/04/23 at 2355 New Bag 11/05/2023 12:12 AM DRY TRANSFER MAN 10 m Eq potassium chloride IVPB 10 mEq 10 mEq, Intravenous, Q1H, Administer over 60 Minutes, First dose on Sun11/05/23 at 0220, Last dose on Sun11/05/23 at 0320 New Bag 11/05/2023 4:19 AM DRY TRANSFER MAN 10 mEq New Bag 11/05/2023 2:59 AM DRY TRANSFER MAN 10 mEq potassium chloride IVPB 10 mEq 10 mEq, Intravenous, Q1H, Administer over 60 Minutes, First dose on Sun11/05/23 at 0620, Last dose on Sun11/05/23 at 0720 New Bag 11/05/2023 8:04 AM DRY TRANSFER MAN 10 mEq rosuvastatin (CRESTOR) tablet 20 mg 20 mg, Oral, DAILY, First dose on Sun11/05/23 at 0900, Until Discontinued Given 11/16/2023 7:33 AM DRY TRANSFER MAN 20 mg Given 11/15/2023 7:58 AM DRY TRANSFER MAN 20 mg Given 11/14/2023 8:15 AM DRY TRANSFER MAN 20 mg sennosides-docusate sodium (STOOL SOFTENER/LAXATIVE) 8.6-50 mg tablet 1 tablet 1 tablet, Oral, BID, First dose on Sun11/06/23 at 0800, Until Discontinued Given 11/07/2023 7:54 PM DRY TRANSFER MAN 1 tablet Given 11/06/2023 8:03 PM DRY TRANSFER MAN 1 tablet sennosides-docusate sodium (STOOL SOFTENER/LAXATIVE) 8.6-50 mg tablet 1 tablet 1 tablet, Oral, BID, First dose (after last modification) on Sun11/14/23 at 0800, Until Discontinued Given 11/16/2023 7:33 AM DRY TRANSFER MAN 1 tablet Given 11/15/2023 8:57 PM DRY TRANSFER MAN 1 tablet Given 11/15/2023 7:59 AM DRY TRANSFER MAN 1 tablet venlafaxine (EFFEXOR XR) capsule 225 mg 225 mg, Oral, DAILY, First dose on Sun11/06/23 at 1000, Until Discontinued Given 11/16/2023 7:32 AM DRY TRANSFER MAN 225 mg Given 11/15/2023 7:58 AM DRY TRANSFER MAN 225 mg Given 11/14/2023 8:14 AM DRY TRANSFER MAN 225 mg VTE Anti Xa Monitoring Does not apply, PROTOCOL, Starting on Sun11/07/23 at 1354, Until Sun11/16/23 at 1221 documented in this encounter Active and Recently Administered Medications Times are shown in DRY TRANSFER MAN. Scheduled Medication Order 11/14/2023 11/15/2023 11/16/2023 allopurinol [...] pm documented in this encounter Care Teams Reclamation Worker Relationship Specialty Start Date End Date Eloise Reeves DO [address] [place] [address] PCP - General Family Medicine 11/06/23 documented as of this encounter
--- OUTSIDE RECORDS SUMMARY | 2023-12-12 16:09 | XMS_ITS | Encounter Summary ---
Author Name Unknown Organization [facility] Address [address] [place] [phone] Phone Care Team Providers Care Hhas Name Role Phone Eloise Reeves DO Primary [...] Coronavirus/COVID-19? No / Unsure 11/04/2023 10:48 PM PUBLIC RELATIONS ASSISTANT documented as of this encounter Plan of Treatment Not on file documented as of this encounter Procedures Procedure Name Priority Date/Time Associated Diagnosis Comments TELEMETRY STRIPS 11/07/2023 1:07 AM PUBLIC RELATIONS ASSISTANT documented in this encounter Results * TELEMETRY STRIPS (11/07/2023 1:07 AM PUBLIC RELATIONS ASSISTANT) Narrative 11/07/2023 1:07 AM PUBLIC RELATIONS ASSISTANT Ordered by an unspecified provider. Provider Unknown RAD ECHO documented in this encounter Visit Diagnoses Not on filedocumented in this encounter Care Teams Hhas Relationship Specialty Start Date End Date Eloise Reeves [address] [place] [address] PCP - General Family Medicine 11/06/23 documented as of this encounter
--- OUTSIDE RECORDS SUMMARY | 2023-12-12 16:09 | XMS_ITS | Encounter Summary ---
Author Name Unknown Organization [facility] Address [address] [place] [phone] Phone Care Team Providers Care Extrusion Technician Name Role Phone Eloise Reeves DO Primary [...] Coronavirus/COVID-19? No / Unsure 11/04/2023 10:48 PM SAMPLER TESTER documented as of this encounter Plan of Treatment Not on file documented as of this encounter Procedures Procedure Name Priority Date/Time Associated Diagnosis Comments TELEMETRY STRIPS 11/06/2023 1:52 AM SAMPLER TESTER documented in this encounter Results * TELEMETRY STRIPS (11/06/2023 1:52 AM SAMPLER TESTER) Narrative 11/06/2023 1:52 AM SAMPLER TESTER Ordered by an unspecified provider. Provider Unknown RAD ECHO documented in this encounter Visit Diagnoses Not on filedocumented in this encounter Care Teams Extrusion Technician Relationship Specialty Start Date End Date Eloise Reeves DO [address] [place] [address] PCP - General Family Medicine 11/06/23 documented as of this encounter
--- OUTSIDE RECORDS SUMMARY | 2023-12-12 16:09 | XMS_ITS | Encounter Summary ---
Author Name Unknown Organization [facility] Address [address] [place] [id number] Phone Care Team Providers Care Electroencephalographic Technologist Name Role Phone Eloise Reeves DO Primary [...] Coronavirus/COVID-19? No / Unsure 11/04/2023 10:48 PM JAVA TECH LEAD documented as of this encounter Plan of Treatment Not on file documented as of this encounter Procedures Procedure Name Priority Date/Time Associated Diagnosis Comments TELEMETRY STRIPS 11/09/2023 1:21 AM JAVA TECH LEAD documented in this encounter Results * TELEMETRY STRIPS (11/09/2023 1:21 AM JAVA TECH LEAD) Narrative 11/09/2023 1:21 AM JAVA TECH LEAD Ordered by an unspecified provider. Provider Unknown RAD ECHO documented in this encounter Visit Diagnoses Not on filedocumented in this encounter Care Teams Electroencephalographic Technologist Relationship Specialty Start Date End Date Eloise Reeves DO [address] [place] [address] PCP - General Family Medicine 11/06/23 documented as of this encounter
--- OUTSIDE RECORDS SUMMARY | 2023-12-12 16:09 | XMS_ITS | Encounter Summary ---
Author Name Unknown Organization [facility] Address [address] [place] [phone] Phone Care Team Providers Care Production Team Leader Name Role Phone Eloise Reeves DO Primary [...] Coronavirus/COVID-19? No / Unsure 11/04/2023 10:48 PM ELECTRO TECH documented as of this encounter Plan of Treatment Not on file documented as of this encounter Procedures Procedure Name Priority Date/Time Associated Diagnosis Comments TELEMETRY STRIPS 11/08/2023 7:31 PM ELECTRO TECH documented in this encounter Results * TELEMETRY STRIPS (11/08/2023 7:31 PM ELECTRO TECH) Narrative 11/08/2023 7:31 PM ELECTRO TECH Ordered by an unspecified provider. Provider Unknown RAD ECHO documented in this encounter Visit Diagnoses Not on filedocumented in this encounter Care Teams Production Team Leader Relationship Specialty Start Date End Date Eloise Reeves DO [address] [place] [address] PCP - General Family Medicine 11/06/23 documented as of this encounter
--- OUTSIDE RECORDS SUMMARY | 2023-12-12 16:09 | XMS_ITS | Encounter Summary ---
Author Name Unknown Organization [facility] Address [address] [place] [phone] Phone Care Team Providers Care Clip Wrapper Name Role Phone Eloise Reeves DO Primary [...] Coronavirus/COVID-19? No / Unsure 11/04/2023 10:48 PM HAT MODEL documented as of this encounter Plan of Treatment Not on file documented as of this encounter Procedures Procedure Name Priority Date/Time Associated Diagnosis Comments TELEMETRY STRIPS 11/08/2023 2:59 AM HAT MODEL documented in this encounter Results * TELEMETRY STRIPS (11/08/2023 2:59 AM HAT MODEL) Narrative 11/08/2023 2:59 AM HAT MODEL Ordered by an unspecified provider. Provider Unknown RAD ECHO documented in this encounter Visit Diagnoses Not on filedocumented in this encounter Care Teams Clip Wrapper Relationship Specialty Start Date End Date Eloise Reeves DO [address] [place] [address] PCP - General Family Medicine 11/06/23 documented as of this encounter
--- OUTSIDE RECORDS SUMMARY | 2023-12-12 16:09 | XMS_ITS | Clinical Summary ---
Author Name Unknown Organization [facility] Address [place], [place] [address] Care Team Providers Care Estate Attorney Name Role Phone Eloise Reeves Primary Care Provider [phone] Allergies Active Allergy Reactions Criticality Noted Date [...] 225mg daily 90 Capsule 3 01/30/2023 Active Additional Information Patient taking differently: 75 mg Oral TID, (No instructions reported), Reported on 12/12/2023 rosuvastatin (CRESTOR) 20 mg tabletIndications:H yperlipidemia, unspecified hyperlipidemia type Take 1 Tablet (20 mg) by mouth at bedtime. 90 Tablet 3 02/03/2023 Active losartan (COZAAR) 25 mg tabletIndications:H TN (hypertension) Take 1 Tablet (25 mg) by mouth once daily. 90 Tablet 3 09/12/2023 Active Additional Information Patient taking differently:25 mg OralBID, Reported on 12/12/2023 predniSONE (DELTASONE) 5 mg tabletIndications:G out of [...] with meals. 180 Tablet 3 11/01/2023 Active divalproex sprinkles (DEPAKOTE SPRINKLES) 125 mg capsule Take 125 mg by mouth once daily. 0 11/13/2023 Active amLODIPine (NORVASC) 5 mg tablet Take 5 mg by mouth once daily. 0 Active carvediloL (COREG) 6.25 mg tablet Take 6.25 mg by mouth two times daily with meals. 0 03/20/2023 Active potassium chloride (KLOR-CON M20) 20 mEq extended-release tablet (part/cryst) Take 40 mEq by mouth once daily with a meal. 0 11/14/2023 Active Active Problems Problem Noted Date Diagnosed [...] PVCs 10/20/2014 Breast cancer, left Overview: in [place], had mastectomy. No chemo or radiation Encounters Date Type Department Care Team Description 12/12/2023 1:05 PM SENIOR NAVAL PARACHUTIST Office Visit [facility] [address] [place] [address] Eloise Reeves, Hospital F/U 12/12/2023 Travel 12/11/2023 Telephone [facility] [address] [place] [address] Eloise Reeves DO Tremors 12/10/2023 Telephone [facility] [address] [place] [address] Eloise Reeves DO Concerns (12/12/23) 11/29/2023 Telephone [facility] [address] [place] [address] Eloise Reeves DO Appointment Request 11/22/2023 10:30 AM SENIOR NAVAL PARACHUTIST Office Visit [facility] [address] [place] [address] [address], THERMOSTAT MACHINE TENDER Failed Appointment 11/02/2023 Telephone [facility] [address] [place] [address] Eloise Reeves DO Results 11/01/2023 1:05 PM SENIOR NAVAL PARACHUTIST Office Visit [facility] [address] [place] [address] Eloise Reeves DO Follow Up 11/01/2023 Orders Only [facility] [address] [facility] [address] Eloise Reeves DO <No scans attached> 11/01/2023 Travel 10/16/2023 10:30 AM SENIOR NAVAL PARACHUTIST Office Visit [facility] [address] [facility] [address] [address], [facility] Visit 10/16/2023 Travel 10/10/2023 Telephone [facility] [place] [facility] [address] [facility] [address] Twan Suresh MD Referral (Patient is ready to be scheduled. Referral consult to Neurology. ) 10/09/2023 1:05 PM SENIOR NAVAL PARACHUTIST Office Visit [facility] [address] [place] [address] Eloise Reeves DO Follow Up; Tremors 10/09/2023 Telephone [place] [address] [address] [facility] [address] García Driscoll MD Error-please disregard 10/09/2023 Travel 10/04/2023 10:30 AM SENIOR NAVAL PARACHUTIST Office Visit [facility] [address] [facility] [address] [address] [facility] Failed Appointment 09/28/2023 Telephone [place] [address] [address] [facility] [address] Eloise Reeves DO Results 09/27/2023 Orders Only [facility] [address] [facility] [address] Eloise Reeves DO <No scans attached> 09/26/2023 1:55 PM SENIOR NAVAL PARACHUTIST Office Visit [facility] [address] [facility] [address] Eloise Reeves DO Dizziness (1 day); Nausea (1 day); Diarrhea (1 day); Urinary Problem (frequency) 09/26/2023 Travel 09/25/2023 Telephone [facility] [address] [place] [address] Eloise Reeves, Appointment Request (FOLLOW UP BEFORE 11-01-2023) 09/17/2023 10:30 AM SENIOR NAVAL PARACHUTIST Office Visit [facility] [address] [facility] [address] [address], [facility] Visit 09/17/2023 Travel 09/13/2023 Telephone [facility] [address] [facility] [address] Eloise Reeves DO Results 09/13/2023 Orders Only [facility] [address] [facility] [address] Eloise Reeves, <No scans attached> 09/12/2023 9:10 AM SENIOR NAVAL PARACHUTIST Office Visit [facility] [address] [place] [address] Eloise Reeves DO Diabetes 09/12/2023 Travel from [...] Sign Reading Time Taken Comments Blood Pressure 126/70 12/12/2023 1:00 PM SENIOR NAVAL PARACHUTIST Pulse 108 12/12/2023 12:10 PM SENIOR NAVAL PARACHUTIST Temperature 37.1 ??C (98.8 ??F) 04/04/2022 12:51 PM C DT Respiratory Rate 16 08/22/2022 9:54 AM CDT Oxygen Saturation 99% 12/12/2023 12:10 PM SENIOR NAVAL PARACHUTIST Inhaled Oxygen Concentration - - Weight 67.6 kg (149 lb) 11/01/2023 11:36 AM SENIOR NAVAL PARACHUTIST Height 142.8 cm (4' 8.22) 01/02/2023 1:43 PM CS T Body Mass Index 33.14 01/02/2023 1:43 PM SENIOR NAVAL PARACHUTIST Plan of Treatment Health Maintenance Due Date [...] Diagnosis Comments CREATININE Routine 11/01/2023 12:37 PM SENIOR NAVAL PARACHUTIST Gout of left foot, unspecified cause, unspecified chronicity POTASSIUM Routine 11/01/2023 12:37 PM SENIOR NAVAL PARACHUTIST Hypokalemia URINALYSIS MICROSCOPIC Routine 09/26/2023 3:25 PM SENIOR NAVAL PARACHUTIST Urinary frequency UA W/ SEDIMENT EXAM REFLEXED PER CRITERIA Routine 09/26/2023 3:25 PM SENIOR NAVAL PARACHUTIST Urinary frequency BASIC METABOLIC PANEL Routine 09/26/2023 2:55 PM SENIOR NAVAL PARACHUTIST HTN (hypertension) HEMOGLOBIN Routine 09/26/2023 2:55 PM SENIOR NAVAL PARACHUTIST Anemia of unknown etiology SCAN CORRESP-LABORATORY RESULTS 09/12/2023 10:56 AM SENIOR NAVAL PARACHUTIST SCAN CORRESP-IMAGING 09/12/2023 10:56 AM SENIOR NAVAL PARACHUTIST SCAN CORRESP-IMAGING 09/12/2023 10:56 AM SENIOR NAVAL PARACHUTIST SCAN CORRESP-IMAGING 09/12/2023 10:56 AM SENIOR NAVAL PARACHUTIST VITAMIN B12 Add On 09/12/2023 9:30 AM SENIOR NAVAL PARACHUTIST Hallucinations BASIC METABOLIC PANEL Add On 09/12/2023 9:30 AM SENIOR NAVAL PARACHUTIST Hypertension IRON PLUS IRON BINDING CAP Add On 09/12/2023 9:30 AM SENIOR NAVAL PARACHUTIST Anemia of unknown etiology FERRITIN Add On 09/12/2023 9:30 AM SENIOR NAVAL PARACHUTIST Anemia of unknown etiology TSH WITH REFLEX Add On 09/12/2023 9:30 AM SENIOR NAVAL PARACHUTIST Hallucinations Other fatigue HEMOGLOBIN Routine 09/12/2023 9:30 AM SENIOR NAVAL PARACHUTIST Anemia of unknown etiology URIC ACID Routine 09/12/2023 9:30 AM SENIOR NAVAL PARACHUTIST History of gout POTASSIUM Routine 09/12/2023 9:30 AM SENIOR NAVAL PARACHUTIST Hypertension CREATININE Routine 09/12/2023 9:30 AM SENIOR NAVAL PARACHUTIST Hypertension HEMOGLOBIN A1C Routine 09/12/2023 9:30 AM SENIOR NAVAL PARACHUTIST Controlled type 2 diabetes mellitus without complication, without long-term current use of insulin (HC) from Last 3 Months Results * POTASSIUM (11/01/2023 12:37 PM SENIOR NAVAL PARACHUTIST) Only the most recent of2 resultswithin the time period is included. POTASSIUM 3.5 3.5 - 5.1 mmol/L 11/01/2023 9:42 PM SENIOR NAVAL PARACHUTIST [facility] Blood BLOOD SPECIMEN / Unknown Venipuncture / Unknown 11/01/2023 12:37 PM SENIOR NAVAL PARACHUTIST 11/01/2023 12:39 PM SENIOR NAVAL PARACHUTIST Eloise Reeves DO CHEMISTRY [facility] [address] [place] [address], * (ABNORMAL) CREATININE (11/01/2023 12:37 PM SENIOR NAVAL PARACHUTIST) Only the most recent of2 resultswithin the time period is included. eGFR 73(L) >90 mL/min/1.7 3m2 11/01/2023 9:42 PM SENIOR NAVAL PARACHUTIST [facility] Comment:As of 2022, eG FR is calculated by the CKD-EPI creatinine equation without race adjustment. ??eGFR can be influenced by muscle mass, exercise, and diet. ??The reported eGFR is an estimation only and is only applicable if the renal function is stable. CREATININE 0.81 0.50 - 0.90 mg/dL 11/01/2023 9:42 PM SENIOR NAVAL PARACHUTIST [facility] Blood BLOOD SPECIMEN / Unknown Venipuncture / Unknown 11/01/2023 12:37 PM SENIOR NAVAL PARACHUTIST 11/01/2023 12:39 PM SENIOR NAVAL PARACHUTIST Eloise Reeves DO CHEMISTRY [facility] [address] [place] [address], [place] * URINALYSIS MICROSCOPIC (09/26/2023 3:25 PM SENIOR NAVAL PARACHUTIST) RBC 0-2 0-2, None Seen /HPF 09/26/2023 3:35 PM SENIOR NAVAL PARACHUTIST [facility] WBC 0-2 0-2, 3-5, None Seen /HPF 09/26/2023 3:35 PM SENIOR NAVAL PARACHUTIST [facility] BACTERIA Few None Seen, Rare, Few Bacteria/H PF 09/26/2023 3:35 PM SENIOR NAVAL PARACHUTIST [facility] EPITHELIAL CELLS Few None Seen, Few Epi/HPF 09/26/2023 3:35 PM SENIOR NAVAL PARACHUTIST [facility] Mucus Present 09/26/2023 3:35 PM SENIOR NAVAL PARACHUTIST [facility] HYALINE CASTS 0-2 0-2, 3-5 /LPF 09/26/2023 3:35 PM SENIOR NAVAL PARACHUTIST [facility] Urine URINE SPECIMEN / Unknown Non-Blood / Unknown 09/26/2023 3:25 PM SENIOR NAVAL PARACHUTIST 09/26/2023 3:25 PM SENIOR NAVAL PARACHUTIST Narrative [facility] - 09/26/2023 3:35 PM SENIOR NAVAL PARACHUTIST <1.5 ml. ??QNS for accurate microscopic exam. ??Microscopic done on unspun urine. Eloise Reeves DO URINE [facility] [address] [place] [address], [place] [phone] * (ABNORMAL) UA W/ SEDIMENT EXAM REFLEXED PER CRITERIA (09/26/2023 3:25 PM SENIOR NAVAL PARACHUTIST) COLOR Yellow Yellow Color 09/26/2023 3:33 PM SENIOR NAVAL PARACHUTIST [facility] CLARITY Clear Clear Clarity 09/26/2023 3:33 PM SENIOR NAVAL PARACHUTIST [facility] SPECIFIC GRAVITY,URINE >=1.030(A) 1.010, 1.015, 1.020, 1.025 09/26/2023 3:33 PM SENIOR NAVAL PARACHUTIST [facility] PH,URINE 5.5 6.0, 7.0, 8.0, 5.5, 6.5, 7.5, 8.5 09/26/2023 3:33 PM SENIOR NAVAL PARACHUTIST [facility] UROBILINOGEN,QU ALITATIVE Normal Normal EU/dl 09/26/2023 3:33 PM SENIOR NAVAL PARACHUTIST [facility] PROTEIN, URINE 30(A) Negative mg/dL 09/26/2023 3:33 PM SENIOR NAVAL PARACHUTIST [facility] GLUCOSE, URINE Negative Negative mg/dL 09/26/2023 3:33 PM SENIOR NAVAL PARACHUTIST [facility] KETONES,URINE 15(A) Negative mg/dL 09/26/2023 3:33 PM SENIOR NAVAL PARACHUTIST [facility] BILIRUBIN,URINE Abnormal(A) Negative 09/26/20 3:33 PM SENIOR NAVAL PARACHUTIST [facility] Comment:A variety of metabol ites and/or medications may result in a positive bilirubin result. Clinical correlation is recommended. OCCULT BLOOD,URINE Negative Negative 09/26/2023 3:33 PM SENIOR NAVAL PARACHUTIST [facility] NITRITE Negative Negative 09/26/2023 3:33 PM SENIOR NAVAL PARACHUTIST [facility] LEUKOCYTE ESTERASE Negative Negative 09/26/2023 3:33 PM SENIOR NAVAL PARACHUTIST [facility] Urine URINE SPECIMEN / Unknown Non-Blood / Unknown 09/26/2023 3:25 PM SENIOR NAVAL PARACHUTIST 09/26/2023 3:25 PM SENIOR NAVAL PARACHUTIST Eloise Reeves DO URINE [facility] [address] [place] [address], [place] [phone] * (ABNORMAL) HEMOGLOBIN (09/26/2023 2:55 PM SENIOR NAVAL PARACHUTIST) Only the most recent of2 resultswithin the time period is included. HEMOGLOBIN 10.9(L) 12.0 - 16.0 g/dL 09/26/2023 3:04 PM SENIOR NAVAL PARACHUTIST [facility] MCV 82 80 - 100 fL 09/26/2023 3:04 PM SENIOR NAVAL PARACHUTIST [facility] Blood BLOOD SPECIMEN / Unknown Venipuncture / Unknown 09/26/2023 2:55 PM SENIOR NAVAL PARACHUTIST 09/26/2023 2:56 PM SENIOR NAVAL PARACHUTIST Eloise Reeves DO HEMATOLOGY [facility] [address] [place] [address], * (ABNORMAL) BASIC METABOLIC PANEL (09/26/2023 2:55 PM SENIOR NAVAL PARACHUTIST) Only the most recent of2 resultswithin the time period is included. Pathologist [facility] SODIUM 140 136 - 145 mmol/L 09/26/2023 10:22 PM [facility] POTASSIUM 3.3(L) 3.5 - 5.1 mmol/L 09/26/2023 10:22 PM [facility] CHLORIDE 101 98 - 107 mmol/L 09/26/2023 10:22 PM [facility] CO2,TOTAL 26 22 - 29 mmol/L 09/26/2023 10:22 PM [facility] ANION GAP 13 5 - 18 09/26/2023 10:22 PM [facility] GLUCOSE 112(H) 70 - 99 mg/dL 09/26/2023 10:22 PM [facility] CALCIUM 9.7 8.8 - 10.2 mg/dL 09/26/2023 10:22 PM [facility] BUN 17 8 - 23 mg/dL 09/26/2023 10:22 PM [facility] CREATININE 1.08(H) 0.50 - 0.90 mg/dL 09/26/2023 10:22 PM [facility] BUN/CREAT RATIO 16 10 - 20 3 10:22 PM SENIOR NAVAL PARACHUTIST [facility] eGFR 52(L) >90 mL/min/1.7 3m2 09/26/2023 10:22 PM SENIOR NAVAL PARACHUTIST [facility] Comment:As of 2022, eG FR is calculated by the CKD-EPI creatinine equation without race adjustment. ??eGFR can be influenced by muscle mass, exercise, and diet. ??The reported eGFR is an estimation only and is only applicable if the renal function is stable. Blood BLOOD SPECIMEN / Unknown Venipuncture / Unknown 09/26/2023 2:55 PM SENIOR NAVAL PARACHUTIST 09/26/2023 2:56 PM SENIOR NAVAL PARACHUTIST Eloise Reeves DO CHEMISTRY [facility] [address] [place] [address], * SCAN CORRESP-LABORATORY RESULTS (09/12/2023 10:56 AM SENIOR NAVAL PARACHUTIST) Narrative 09/12/2023 10:56 AM SENIOR NAVAL PARACHUTIST Ordered by an unspecified provider. Other Clinical Staff OTHER * SCAN CORRESP-IMAGING (09/12/2023 10:56 AM SENIOR NAVAL PARACHUTIST) Only the most recent of3 resultswithin the time period is included. Anatomical Region Laterality Modality Other Narrative 09/12/2023 10:56 AM SENIOR NAVAL PARACHUTIST Ordered by an unspecified provider. Other Clinical Staff OTHER * TSH WITH REFLEX (09/12/2023 9:30 AM SENIOR NAVAL PARACHUTIST) TSH 0.72 0.27 - 4.20 uIU/mL 09/12/2023 6:43 PM SENIOR NAVAL PARACHUTIST [facility] Blood BLOOD SPECIMEN / Unknown Venipuncture / Unknown 09/12/2023 9:30 AM SENIOR NAVAL PARACHUTIST 09/12/2023 9:33 AM SENIOR NAVAL PARACHUTIST Narrative [facility] - 09/12/2023 6:43 PM SENIOR NAVAL PARACHUTIST In Adults, TSH values between 5.00 and 10.00 uIU/ml do not necessarily indicate the presence of Hypothyroidism. Correlation with clinical findings such as presence of goiter and/or Thyroperoxidase (TPO) Antibody may be helpful. For more information please refer to NIKKIE 2004; 291: 228-238. Eloise Reeves DO CHEMISTRY Performing Organization Address City/[facility]/ZIP Co de Phone Number [facility] [address] [address], [place] * (ABNORMAL) IRON PLUS IRON BINDING CAP (09/12/2023 9:30 AM SENIOR NAVAL PARACHUTIST) IRON 35(L) 37 - 145 ug/dL 09/12/2023 6:43 PM SENIOR NAVAL PARACHUTIST [facility] UIBC (UNSATURATED) 277 112 - 347 ug/dL 09/12/2023 6:43 PM SENIOR NAVAL PARACHUTIST [facility] IRON BINDING CAPACITY 312 250 - 400 ug/dL 09/12/2023 6:43 PM SENIOR NAVAL PARACHUTIST [facility] IRON,% SATURATION 11(L) 14 - 50 % 09/12/2023 6:43 PM SENIOR NAVAL PARACHUTIST [facility] Blood BLOOD SPECIMEN / Unknown Venipuncture / Unknown 09/12/2023 9:30 AM SENIOR NAVAL PARACHUTIST 09/12/2023 9:33 AM SENIOR NAVAL PARACHUTIST Eloise Reeves DO CHEMISTRY Performing Organization Address [facility] Co de Phone Number [facility] [address] [place] [address], [place] * (ABNORMAL) URIC ACID (09/12/2023 9:30 AM SENIOR NAVAL PARACHUTIST) URIC ACID 9.4(H) 2.4 - 5.7 mg/dL 09/12/2023 7:06 PM SENIOR NAVAL PARACHUTIST [facility] Blood BLOOD SPECIMEN / Unknown Venipuncture / Unknown 09/12/2023 9:30 AM SENIOR NAVAL PARACHUTIST 09/12/2023 9:33 AM SENIOR NAVAL PARACHUTIST Eloise Reeves DO CHEMISTRY Performing Organization Address [facility] Co de Phone Number [facility] [address] [place] [phone], [place] * (ABNORMAL) HEMOGLOBIN A1C MONITORING (POCT) (09/12/2023 9:30 AM SENIOR NAVAL PARACHUTIST) [facility] HEMOGLOBIN A1C MONITORING (POCT) 8.4(H) <=6.4 % 09/12/2023 10:00 AM SENIOR NAVAL PARACHUTIST [facility] Blood BLOOD SPECIMEN / Unknown Venipuncture / Unknown 09/12/2023 9:30 AM SENIOR NAVAL PARACHUTIST 09/12/2023 9:33 AM SENIOR NAVAL PARACHUTIST Narrative [facility] - 09/12/2023 10:00 AM SENIOR NAVAL PARACHUTIST ? (<=6.9%) ? Indicates good control ? [...] CHEMISTRY [facility] [address] [place] [address], [place] [phone] * FERRITIN (09/12/2023 9:30 AM SENIOR NAVAL PARACHUTIST) [facility] FERRITIN 26.8 15.0 - 150.0 ng/mL 09/12/2023 6:43 PM SENIOR NAVAL PARACHUTIST [facility] Blood BLOOD SPECIMEN / Unknown Venipuncture / Unknown 09/12/2023 9:30 AM SENIOR NAVAL PARACHUTIST 09/12/2023 9:33 AM SENIOR NAVAL PAR[employer]IST Eloise Reeves DO CHEMISTRY [facility] [address] [place] [address], [place] * (ABNORMAL) VITAMIN B12 (09/12/2023 9:30 AM SENIOR NAVAL PARACHUTIST) VITAMIN B12 1,253(H) 232 - 1,245 pg/mL 09/12/2023 6:43 PM SENIOR NAVAL PARACHUTIST [facility] Blood BLOOD SPECIMEN / Unknown Venipuncture / Unknown 09/12/2023 9:30 AM SENIOR NAVAL PARACHUTIST 09/12/2023 9:33 AM SENIOR NAVAL PARACHUTIST Narrative [facility] - 09/12/2023 6:43 PM SENIOR NAVAL PARACHUTIST Biotin supplements may cause clinically significant interference for this test assay. ??If interference is suspected, it is strongly recommended that biotin is discontinued for at least one week prior to retesting. Eloise Reeves DO CHEMISTRY [facility] [address] [place] [address], from Last 3 Months Care Teams Estate Attorney Relationship Specialty Start Date End Date [place] [address] PCP - General Family Practice 05/13/20
--- OUTSIDE RECORDS SUMMARY | 2023-12-12 16:09 | XMS_ITS | Encounter Summary ---
Author Name Unknown Organization [facility] Address [address] [place] [address] Phone Care Team Providers Care General Assembler Installer Name Role Phone Unavailable Primary Care Provider [...] Coronavirus/COVID-19? No / Unsure 11/04/2023 10:48 PM CNC LATHE PROGRAMMER documented as of this encounter Plan of Treatment Not on file documented as of this encounter Visit Diagnoses Not on filedocumented in this encounter
--- OUTSIDE RECORDS SUMMARY | 2023-12-12 16:09 | XMS_ITS | Encounter Summary ---
Author Name Unknown Organization [facility] Address [address] [place] [address] Phone Care Team Providers Care Fruit Picker Name Role Phone Eloise Reeves DO Primary [...] Coronavirus/COVID-19? No / Unsure 11/04/2023 10:48 PM PATTERN LEASE INSPECTOR documented as of this encounter Plan of Treatment Not on file documented as of this encounter Procedures Procedure Name Priority Date/Time Associated Diagnosis Comments TELEMETRY STRIPS 11/07/2023 7:31 PM PATTERN LEASE INSPECTOR documented in this encounter Results * TELEMETRY STRIPS (11/07/2023 7:31 PM PATTERN LEASE INSPECTOR) Narrative 11/07/2023 7:31 PM PATTERN LEASE INSPECTOR Ordered by an unspecified provider. Provider Unknown RAD ECHO documented in this encounter Visit Diagnoses Not on filedocumented in this encounter Care Teams Fruit Picker Relationship Specialty Start Date End Date Eloise Reeves DO [address] [place] [address] PCP - General Family Medicine 11/06/23 documented as of this encounter
--- OUTSIDE RECORDS SUMMARY | 2023-12-12 16:09 | XMS_ITS | Encounter Summary ---
Author Name Unknown Organization [facility] Address [address] [place] [address] Phone Care Team Providers Care Orientation & Mobility Specialist Name Role Phone Eloise Reeves DO Primary Care Provider [phone] Encounter Details Date Type Department Care Team [...] Coronavirus/COVID-19? No / Unsure 11/04/2023 10:48 PM FILING MACHINE OPERATOR documented as of this encounter Plan of Treatment Not on file documented as of this encounter Procedures Procedure Name Priority Date/Time Associated Diagnosis Comments TELEMETRY STRIPS 11/05/2023 9:25 AM FILING MACHINE OPERATOR documented in this encounter Results * TELEMETRY STRIPS (11/05/2023 9:25 AM FILING MACHINE OPERATOR) Narrative 11/05/2023 9:25 AM FILING MACHINE OPERATOR Ordered by an unspecified provider. Provider Unknown RAD ECHO documented in this encounter Visit Diagnoses Not on filedocumented in this encounter Care Teams Orientation & Mobility Specialist Relationship Specialty Start Date End Date Eloise Reeves [address] [place] [address] PCP - General Family Medicine 11/06/23 documented as of this encounter
--- OUTSIDE RECORDS SUMMARY | 2023-12-12 16:09 | XMS_ITS | Encounter Summary ---
Author Name Unknown Organization [facility] Address [address] [place] [address] Phone Care Team Providers Care Resawyer Name Role Phone Eloise Reeves DO Primary Care Provider [phone] Encounter Details Date Type Department Care Team [...] / Unsure 11/04/2023 10:48 PM DIRECTOR OF SUSTAINABILITY PROGRAMS documented as of this encounter Plan of Treatment Not on file documented as of this encounter Procedures Procedure Name Priority Date/Time Associated Diagnosis Comments TELEMETRY STRIPS 11/09/2023 8:48 AM DIRECTOR OF SUSTAINABILITY PROGRAMS documented in this encounter Results * TELEMETRY STRIPS (11/09/2023 8:48 AM DIRECTOR OF SUSTAINABILITY PROGRAMS) Narrative 11/09/2023 8:48 AM DIRECTOR OF SUSTAINABILITY PROGRAMS Ordered by an unspecified provider. Provider Unknown RAD ECHO documented in this encounter Visit Diagnoses Not on filedocumented in this encounter Care Teams Resawyer Relationship Specialty Start Date End Date Eloise Reeves [place] [address] [place] [address] PCP - General Family Medicine 11/06/23 documented as of this encounter
--- OUTSIDE RECORDS SUMMARY | 2023-12-12 16:09 | XMS_ITS | Encounter Summary ---
Author Name Unknown Organization [facility] Address [address] [place] [id number] Phone Care Team Providers Care Diet Attendant Name Role Phone Eloise Reeves DO Primary [...] Coronavirus/COVID-19? No / Unsure 11/04/2023 10:48 PM HYDROLOGIST documented as of this encounter Plan of Treatment Not on file documented as of this encounter Procedures Procedure Name Priority Date/Time Associated Diagnosis Comments TELEMETRY STRIPS 11/06/2023 8:49 AM HYDROLOGIST documented in this encounter Results * TELEMETRY STRIPS (11/06/2023 8:49 AM HYDROLOGIST) Narrative 11/06/2023 8:49 AM HYDROLOGIST Ordered by an unspecified provider. Provider Unknown RAD ECHO documented in this encounter Visit Diagnoses Not on filedocumented in this encounter Care Teams Diet Attendant Relationship Specialty Start Date End Date Eloise Reeves DO [address] [place] [address] PCP - General Family Medicine 11/06/23 documented as of this encounter
--- OUTSIDE RECORDS SUMMARY | 2023-12-12 16:09 | XMS_ITS | Encounter Summary ---
Author Name Unknown Organization [facility] Address [address] [place] [address] Phone Care Team Providers Care Automotive Designer Name Role Phone Eloise Reeves DO Primary Care Provider [phone] Encounter Details Date Type Department Care Team [...] Coronavirus/COVID-19? No / Unsure 11/04/2023 10:48 PM ACCOUNTING ASSISTANT documented as of this encounter Plan of Treatment Not on file documented as of this encounter Procedures Procedure Name Priority Date/Time Associated Diagnosis Comments TELEMETRY STRIPS 11/07/2023 9:29 AM ACCOUNTING ASSISTANT documented in this encounter Results * TELEMETRY STRIPS (11/07/2023 9:29 AM ACCOUNTING ASSISTANT) Narrative 11/07/2023 9:29 AM ACCOUNTING ASSISTANT Ordered by an unspecified provider. Provider Unknown RAD ECHO documented in this encounter Visit Diagnoses Not on filedocumented in this encounter Care Teams Automotive Designer Relationship Specialty Start Date End Date Eloise Reeves DO [address] [place] [address] PCP - General Family Medicine 11/06/23 documented as of this encounter
--- OUTSIDE RECORDS SUMMARY | 2023-12-12 16:09 | XMS_ITS | Encounter Summary ---
Author Name Unknown Organization [facility] Address [address] [place] [id number] Phone Care Team Providers Care Riverboat Captain Name Role Phone Eloise Reeves DO Primary [...] Coronavirus/COVID-19? No / Unsure 11/04/2023 10:48 PM NONPROFIT FINANCIAL CONTROLLER documented as of this encounter Plan of Treatment Not on file documented as of this encounter Procedures Procedure Name Priority Date/Time Associated Diagnosis Comments TELEMETRY STRIPS 11/06/2023 4:28 PM NONPROFIT FINANCIAL CONTROLLER documented in this encounter Results * TELEMETRY STRIPS (11/06/2023 4:28 PM NONPROFIT FINANCIAL CONTROLLER) Narrative 11/06/2023 4:28 PM NONPROFIT FINANCIAL CONTROLLER Ordered by an unspecified provider. Provider Unknown RAD ECHO documented in this encounter Visit Diagnoses Not on filedocumented in this encounter Care Teams Riverboat Captain Relationship Specialty Start Date End Date Eloise Reeves DO [address] [place] [address] PCP - General Family Medicine 11/06/23 documented as of this encounter
--- OUTSIDE RECORDS SUMMARY | 2023-12-12 16:09 | XMS_ITS | Encounter Summary ---
Author Name Unknown Organization [facility] Address [address] [place] [phone] Phone Care Team Providers Care Loss Control Consultant Name Role Phone Eloise Reeves DO [...] Coronavirus/COVID-19? 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 Provider Unknown RAD ECHO documented in this encounter Visit Diagnoses Not on filedocumented in this encounter Care Teams Loss Control Consultant Relationship Specialty Start Date End Date Eloise Reeves DO [address] [place] [address] PCP - General Family Medicine 11/06/23 documented as of this encounter
--- NOTE | 2023-12-12 16:26 | ED.NURSE ---
Contact number for [email or web address] able to reach at [phone]
--- NOTE | 2023-12-12 17:11 | ED.GENADULT ---
HPI - General Adult General Date Seen: 12/12/23 Chief complaint: Altered Mental Status Stated complaint: Needs CT Time Seen by Provider: 12/12/23 14:43 Source: patient Mode of arrival: ambulatory Limitations: no limitations History of Present Illness HPI narrative: Patient is an 83-year-old female with a history of recent brain hemorrhage last month secondary to a fall presenting to the emergency department due to family inability did care for her at home. They state even before the fall she started showed signs of dementia but was never diagnosed with that. Since the fall she was in the hospital for extended period time and then went to rehab for 2 weeks. She was discharged home from rehab to be with her daughter for 21/05 care. The patient refused to going to her daughter's house of and I finally got her and she started making falls claims against the daughter. This include calling the police. She would only live with her . Her is unable to give her 247 care the patient has been in here now 3 times in the past 3 days. Family and state they are unable to care for her any longer at home. She will refuse to take her medications and will have angry outburst. I spoke to the patient's primary care provider who is in agreement that she does not think the patient is safe at home at this time. Patient does admit that she has memory issues and will have outbursts. No other concerns noted Related Data Home Medications Medication Instructions Recorded Confirmed amlodipine 2.5 mg tablet 5 mg PO DAILY 03/20/23 12/12/23 carvedilol 12.5 mg tablet 6.25 mg PO BID 03/20/23 12/12/23 chlorthalidone 25 mg tablet 25 mg PO DAILY 03/20/23 09/05/23 cyanocobalamin (vitamin B-12) 1,000 mcg PO DAILY 03/20/23 09/05/23 1,000 mcg tablet ferrous sulfate 325 mg (65 mg 325 mg PO BID 03/20/23 09/05/23 iron) tablet (FeroSul) losartan 100 mg tablet 100 mg PO DAILY 03/20/23 09/05/23 metformin 1,000 mg tablet 1,000 mg PO BID 03/20/23 09/05/23 omeprazole 20 mg capsule,delayed 20 mg PO BID 03/20/23 09/05/23 release rosuvastatin 10 mg tablet 10 mg PO QPM 03/20/23 09/05/23 venlafaxine 150 mg 50 mg PO DAILY 03/20/23 09/05/23 capsule,extended release 24 hr venlafaxine 75 mg capsule,extended 50 mg PO DAILY 03/20/23 12/12/23 release 24 hr allopurinol 100 mg tablet 50 mg PO DAILY 12/12/23 12/12/23 divalproex 250 mg tablet,delayed 250 mg PO QHS 12/12/23 12/12/23 release (Depakote) lorazepam 0.5 mg tablet (Ativan) 0.5 mg PO TID PRN 12/12/23 12/12/23 losartan 25 mg tablet 25 mg PO DAILY 12/12/23 12/12/23 melatonin 3 mg capsule 3 mg PO QHS 12/12/23 12/12/23 potassium chloride 20 mEq 20 meq PO BID 12/12/23 12/12/23 tablet,extended release(part/cryst) rosuvastatin 20 mg tablet 20 mg PO QPM 12/12/23 12/12/23 sennosides 8.6 mg-docusate sodium 1 tab-cap PO BID 12/12/23 12/12/23 50 mg tablet (Senna-S) Previous Rx's Medication Instructions Recorded benzonatate 100 mg capsule 100 mg PO BID-TID PRN cough #20 08/17/23 caps donepezil 5 mg tablet (Aricept) 5 mg PO QHS #14 tabs 12/12/23 gabapentin 100 mg capsule 100 mg PO QHS #14 caps 12/12/23 Allergies Allergy/AdvReac Type Severity Reaction Status Date / Time latex Allergy Verified 09/05/23 08:50 morphine Allergy Rash Verified 09/05/23 08:50 silicone Allergy Rash Verified 09/05/23 08:50 topiramate [From Topamax] Allergy Hallucinati Verified 09/05/23 08:50 ng surgical tape Allergy Uncoded 09/05/23 08:49 Review of Systems Status of ROS: Reports: 10 or more systems reviewed and unremarkable except as noted in History and below [facility] Social History Smoking Status: Never smoker Do you use any of these nicotine containing products: None How often do you have a drink containing alcohol: monthly or less AUDIT-C Alcohol total score: 1 Non-prescribed substance use: denies use service: No Exam Narrative: Exam Narrative: Const: Well-nourished, Well-developed, in mild distress Eyes: PERRL, no conjunctival injection, and symmetrical lids HENT: Atraumatic external nose and ears. Moist mucous membranes. Neck: Symmetric, trachea midline, No thyromegaly. CVS: RRR, No murmurs or gallops. Peripheral pulses 2+ and equal in all extremities RESP: Unlabored respiratory effort. Clear to auscultation bilaterally. GI: Nontender/Nondistended, No rebound or guarding. MSK:Extremities w/o deformity, Normal Active ROM Skin: Warm, Dry. No rashes or lesions. Neuro: Normal Muscle tone, No focal neurological deficits. Psych: Awake, Alert, & Oriented to self and place, mostly oriented to situation but does have lapses. Appropriate mood and affect. Const: Vital Signs, click to edit/add: Vital Signs - 24 hr 12/12/23 15:07 Temperature 97.3 F L Pulse Rate [Pulse Oximeter] 88 Respiratory Rate 16 Blood Pressure [Le ft Upper Arm] 139/95 H Pulse Oximetry 98 Oxygen Delivery Me thod Room Air Course Vital Signs Vital signs: Initial Vital Signs Temperature 97.3 F L 12/12/23 15:07 Temperature Source Temporal Artery Scan 12/12/23 15:07 Pulse Rate 88 12/12/23 15:07 Pulse Rhythm Regular 12/12/23 15:07 Pulse Strength 3+ Normal 12/12/23 15:07 Respiratory Rate 16 12/12/23 15:07 Blood Pressure 139/95 H 12/12/23 15:07 Blood Pressure Mean 109 H 12/12/23 15:07 Blood Pressure Position Sitting 12/12/23 15:07 Pulse Oximetry 98 12/12/23 15:07 Oxygen Delivery Method Room Air 12/12/23 15:07 Vital Signs Temperature 97.3 F L 12/12/23 15:07 Pulse Rate 88 12/12/23 15:07 Respiratory Rate 16 12/12/23 15:07 Blood Pressure 139/95 H 12/12/23 15:07 Pulse Oximetry 98 12/12/23 15:07 Oxygen Delivery Method Room Air 12/12/23 15:07 Temperature 97.3 F L 12/12/23 15:07 Pulse Rate 88 12/12/23 15:07 Respiratory Rate 16 12/12/23 15:07 Blood Pressure 139/95 H 12/12/23 15:07 Pulse Oximetry 98 12/12/23 15:07 Oxygen Delivery Method Room Air 12/12/23 15:07 Medical Decision Making MDM Narrative Medical decision making narrative: Patient is an 83-year-old female presenting to emergency department for this is concern for unsafe living situation. She is living with her . She has not been violent but they were concerned cannot take care of her home. Patient refused to stay with her daughter. Concern her recent head bleed a repeat head CT was ordered when she arrived. Also ordered standard lab work. Head CT returned showing no concerning abnormalities. Urinalysis was a dirty sample and thus cannot determine if she has a UTI at this time. I spoke to the hospitalist about admission. She states patient is very unlikely to be placed if she gets admitted to the hospital and will likely need to be discharged home in a couple days. The patient states he understands would rather just take her home and start her on the Aricept gabapentin as recommended by the hospitalist and to follow-up with her primary care provider. Cristine Cline, the hospitalist on, had a long and extensive conversation with the patient's daughter about this. They spoke for roughly 20 minutes to help explain to her the situation. At this time the daughter is agreeable to have the patient discharged. She was given a dose of Aricept and gabapentin before discharge in prescriptions were given. Patient's daughter was informed to start working on placement at this time. Patient is otherwise safe at home and has not been violent. Lab Data Labs: Lab Results 12/12/23 12/12/23 Range/Units 14:49 17:17 WBC 8.19 (4.50-11.00) K/uL RBC 4.13 (4.00-5.20) m/uL Hgb 10.9 L (12.0-16.0) gm/dL Hct 34.5 (33.0-51.0) % MCV 84 (80-100) fL MCH 26 (26-34) pg MCHC 32 (32-36) gm/dL RDW Coeff of Lelia 17.3 H (11.5-15.5) % Plt Count 241 (140-440) K/uL Neut % (Auto) 62.0 (42.0-72.0) % Lymph % (Auto) 26.7 (20-44) % [place] % (Auto) 7.3 (0.0-11.0) % Eos % (Auto) 3.4 (0.0-7.0) % Baso % (Auto) 0.5 (0.0-3.0) % Neut # (Auto) 5.07 (1.7-7.0) K/uL Lymph # (Auto) 2.19 (0.90-2.90) K/uL [place] # (Auto) 0.60 (0.00-0.90) K/UL Eos # (Auto) 0.28 (0.00-0.50) K/uL Baso # (Auto) 0.04 (0.00-0.30) K/uL Abs Immat Gran (auto) 0.01 (0.00-0.30) K/uL Imm/Tot Granulo (auto) 0.1 % Sodium 143 (135-149) mmol/L Potassium 3.1 L (3.6-5.1) mmol/L Chloride 104 (96-114) mmol/L Carbon Dioxide 26 (20-32) mmol/L Anion Gap 13 (7-15) mEq/L BUN 19 (7-30) mg/dL Creatinine 1.1 (0.5-1.5) mg/dL Estimated Creat Clear 41.36 Estimated GFR 50 ml/min Glucose 159 H (60-115) mg/dL Calcium 9.9 (8.4-10.6) mg/dL Total Bilirubin 0.4 (0.1-1.5) mg/dL AST 46 H (12-35) U/L ALT 30 (4-35) U/L Alkaline Phosphatase 77 (40-150) U/L Troponin I 0.02 (0.01-0.04) ng/mL Total Protein 8.3 (6.0-8.3) g/dL Albumin 4.6 (3.3-5.0) g/dL Urine Color Yellow (Yellow) Urine Appearance Slightly Cloudy A (Clear) Urine pH 5.5 (5.0-8.5) Ur Specific [place] 1.025 (1.000-1.030) Urine Protein 2+ A (Negative) Urine Glucose (UA) Negative (Negative) Urine Ketones 1+ A (Negative) Urine Blood Negative (Negative) Urine Nitrite Negative (Negative) Urine Bilirubin 2+ A (Negative) Urine Urobilinogen 0.2 (0.2-1.0) Ur Leukocyte Esterase 1+ A (Negative) Urine RBC 0-2 (0-2) Urine WBC 10-25 A (0-5) Ur Squamous Epith Cells Many A (None-Few) Urine Bacteria Few A (None) Imaging Data CT scan - head: Radiologist's impression: No intracranial hemorrhage. Chronic white matter changes likely related to chronic small vessel ischemic disease. Mildly increased ventricular size likely due to some progression of cortical atrophy. Discharge Plan Discharge Clinical Impression: Closed TBI (traumatic brain injury) Patient Disposition: Home w/ Parent or Adult Condition: Stable Instructions: Cognitive Disorders after Traumatic Brain Injury (ED) Additional Instructions: On her meds list I highlighted the meds that she should continue to take. I added on a prescription for gabapentin and Aricept to take at night. Follow-up with primary care provider about these medications and further placement. Make sure to put her meds in a daily pill organizer Prescriptions: New donepezil [Aricept] 5 mg tablet 5 mg PO QHS Qty: 14 2RF gabapentin 100 mg capsule 100 mg PO QHS Qty: 14 2RF No Action benzonatate 100 mg capsule 100 mg PO BID-TID PRN (Reason: cough) Qty: 20 0RF potassium chloride 20 mEq tablet,ER particles/crystals 20 meq PO BID losartan 25 mg tablet 25 mg PO DAILY melatonin 3 mg capsule 3 mg PO QHS allopurinol 100 mg tablet 50 mg PO DAILY rosuvastatin 20 mg tablet 20 mg PO QPM divalproex [Depakote] 250 mg tablet,delayed release (DR/EC) 250 mg PO QHS lorazepam [Ativan] 0.5 mg tablet 0.5 mg PO TID PRN sennosides-docusate sodium [Senna-S] 8.6-50 mg tablet 1 tab-cap PO BID venlafaxine 75 mg capsule,extended release 24hr 50 mg PO DAILY carvedilol 12.5 mg tablet 6.25 mg PO BID venlafaxine 150 mg capsule,extended release 24hr 50 mg PO DAILY cyanocobalamin (vitamin B-12) 1,000 mcg tablet 1,000 mcg PO DAILY amlodipine 2.5 mg tablet 5 mg PO DAILY chlorthalidone 25 mg tablet 25 mg PO DAILY ferrous sulfate [FeroSul] 325 mg (65 mg iron) tablet 325 mg PO BID metformin 1,000 mg tablet 1,000 mg PO BID omeprazole 20 mg capsule,delayed release(DR/EC) 20 mg PO BID losartan 100 mg tablet 100 mg PO DAILY rosuvastatin 10 mg tablet 10 mg PO QPM Follow Up/Referrals: Eloise Reeves DO [Primary Care Provider] - Stand Alone Forms: [facility] Info Instructions
[2023-12-12 17:24] LABS: Basophils Absolute Auto 0.04 K/uL (0.00-0.30); Basophils Percent Auto 0.5 % (0.0-3.0); Eosinophils Absolute Auto 0.28 K/uL (0.00-0.50); Eosinophils Percent Auto 3.4 % (0.0-7.0); Hematocrit 34.5 % (33.0-51.0); Hemoglobin* 10.9 gm/dL (12.0-16.0); Immature Granulocytes Abs Auto 0.01 K/uL (0.00-0.30); Immature Granulocytes Pct Auto 0.1 %; Lymphocytes Absolute Auto 2.19 K/uL (0.90-2.90); Lymphocytes Percent Auto 26.7 % (20-44); Mean Corpuscular HGB Conc 32 gm/dL (32-36); Mean Corpuscular Hemoglobin 26 pg (26-34); Mean Corpuscular Volume 84 fL (80-100); Monocytes Percent Auto 7.3 % (0.0-11.0); Neutrophils Absolute Auto 5.07 K/uL (1.7-7.0); Platelet Count* 241 K/uL (140-440); RDW Coefficient of Variation % 17.3 % (11.5-15.5); Red Blood Count 4.13 m/uL (4.00-5.20); White Blood Count* 8.19 K/uL (4.50-11.00)
[2023-12-12 17:34] LABS: Slide Review Reflex No
[2023-12-12 17:42] LABS: Albumin* 4.6 g/dL (3.3-5.0); Chloride* 104 mmol/L (96-114)
[2023-12-12 17:43] LABS: Potassium* 3.1 mmol/L (3.6-5.1); Sodium* 143 mmol/L (135-149)
[2023-12-12 17:45] LABS: Alanine Aminotransferase* 30 U/L (4-35); Alkaline Phosphatase* 77 U/L (40-150); Anion Gap 13 mEq/L (7-15); Aspartate Amino Transferase* 46 U/L (12-35); Bilirubin Total* 0.4 mg/dL (0.1-1.5); Blood Urea Nitrogen* 19 mg/dL (7-30); Carbon Dioxide* 26 mmol/L (20-32); Creatinine* 1.1 mg/dL (0.5-1.5); Est. Creatinine Clearance* 41.36; Estimated Glomerular Filt Rate 50 ml/min; Glucose* 159 mg/dL (60-115); Total Protein* 8.3 g/dL (6.0-8.3)
[2023-12-12 17:46] LABS: Calcium* 9.9 mg/dL (8.4-10.6)
[2023-12-12 17:57] LABS: Troponin I* 0.02 ng/mL (0.01-0.04)
[2023-12-12] MEDS: GABAPENTIN 100 MG CAPSULE PO (19:39)
[2023-12-12] MEDS: DONEPEZIL 5 MG TABLET PO (19:40)
== END 2023-12-12 19:40 | disposition home or self-care (01) ==
PROVIDERS: Emergency Provider Student in an Organized Health Care Education/Training Program; PCP Family Medicine
DX: S06.9XAA Unspecified intracranial injury with loss of consciousness status unknown, initial encounter (principal)
CPT/HCPCS: 36415; 70450; 80048; 80053; 81001; 84484; 85025; 87086; 99283; 99284; A9270

== ENCOUNTER 2023-12-13 11:23 | Emergency (ER) | payer MEDICARE, SELFPAY ==
[2023-12-13 11:29] VITALS: BP 127/78; PULSE 102; RESP 18; TEMP 36.5; O2SAT 99; BMI 30.3
--- NOTE | 2023-12-13 11:49 | ED.NURSE ---
SS is aware of the patient returning to be seen and did not get admitted to hospital last night. Talked to Jyothi in SS.
--- NOTE | 2023-12-13 13:04 | ED_ITS ---
HPI - General Adult General Date Seen: 12/13/23 Chief complaint: Unspecified Complaint, Adult Stated complaint: Shaking Time Seen by Provider: 12/13/23 13:03 History of Present Illness HPI narrative: 83-year-old female with a history of recent traumatic brain injury with hemorrhage, hypertension, mastectomy, cholecystectomy, anxiety, GERD, dyslipidemia,. presents to the ER today for feeling shaky and unable to feel a her medications. She has multiple recent ER visits including 2 visits on 12/10, and another visit yesterday on 12/12. She presented to the ER by EMS on the manager night, early in the morning on 12/10 for anxiety and chest pain. Symptoms improved after Ativan administered by EMS. Cardiac workup was negative. low potassium, supplemented orally. PCP follow- up recommended. She presented back to the ER for 2nd visit in the afternoon of 12/10. She was anxious and shaking. She had labs including normal CBC, normal CMP. Potassium was 3.7. Discharge with recommended for outpatient follow-up with primary care She had a return to ER visit yesterday on 12/12. Family said they were under distal to care for her in the home. She was unwilling to stay with her daughter and only willing to go with her but he was not able to give her adequate 21/05 supervision. In the ER yesterday, She had a repeat head CT that showed no acute abnormality. Safe disposition was difficult. Discussed with hospitalist who advised that it would be difficult to get her placed and that she may only be able to spend a couple of days in the hospital and ultimately have to discharge home. They decided to discharge home with family. Received doses of Aricept and gabapentin before discharge. She return to the ER today with concern for ongoing shakiness. I went see the patient in room 2 but she had already left the ER. It sounds like she and her family decided not to stay. She was not evaluated by a physician today. Related Data Home Medications Medication Instructions Recorded Confirmed amlodipine 2.5 mg tablet 5 mg PO DAILY 03/20/23 12/13/23 carvedilol 12.5 mg tablet 6.25 mg PO BID 03/20/23 12/13/23 chlorthalidone 25 mg tablet 25 mg PO DAILY 03/20/23 12/13/23 cyanocobalamin (vitamin B-12) 1,000 mcg PO DAILY 03/20/23 12/13/23 1,000 mcg tablet ferrous sulfate 325 mg (65 mg 325 mg PO BID 03/20/23 12/13/23 iron) tablet (FeroSul) losartan 100 mg tablet 100 mg PO DAILY 03/20/23 12/13/23 metformin 1,000 mg tablet 1,000 mg PO BID 03/20/23 12/13/23 omeprazole 20 mg capsule,delayed 20 mg PO BID 03/20/23 12/13/23 release rosuvastatin 10 mg tablet 10 mg PO QPM 03/20/23 12/13/23 venlafaxine 150 mg 50 mg PO DAILY 03/20/23 12/13/23 capsule,extended release 24 hr venlafaxine 75 mg capsule,extended 50 mg PO DAILY 03/20/23 12/13/23 release 24 hr allopurinol 100 mg tablet 50 mg PO DAILY 12/12/23 12/13/23 divalproex 250 mg tablet,delayed 250 mg PO QHS 12/12/23 12/13/23 release (Depakote) lorazepam 0.5 mg tablet (Ativan) 0.5 mg PO TID PRN 12/12/23 12/13/23 losartan 25 mg tablet 25 mg PO DAILY 12/12/23 12/13/23 melatonin 3 mg capsule 3 mg PO QHS 12/12/23 12/13/23 potassium chloride 20 mEq 20 meq PO BID 12/12/23 12/13/23 tablet,extended release(part/cryst) rosuvastatin 20 mg tablet 20 mg PO QPM 12/12/23 12/13/23 sennosides 8.6 mg-docusate sodium 1 tab-cap PO BID 12/12/23 12/13/23 50 mg tablet (Senna-S) Previous Rx's Medication Instructions Recorded benzonatate 100 mg capsule 100 mg PO BID-TID PRN cough #20 08/17/23 caps donepezil 5 mg tablet (Aricept) 5 mg PO QHS #14 tabs 12/12/23 gabapentin 100 mg capsule 100 mg PO QHS #14 caps 12/12/23 Allergies Allergy/AdvReac Type Severity Reaction Status Date / Time latex Allergy Verified 12/13/23 11:37 morphine Allergy Rash Verified 12/13/23 11:37 silicone Allergy Rash Verified 12/13/23 11:37 topiramate [From Topamax] Allergy Hallucinati Verified 12/13/23 11:37 ng surgical tape Allergy Uncoded 09/05/23 08:49 PFSH PFSH Social History Smoking Status: Never smoker Do you use any of these nicotine containing products: None How often do you have a drink containing alcohol: monthly or less AUDIT-C Alcohol total score: 1 Non-prescribed substance use: denies use service: No Exam Const: Vital Signs, click to edit/add: Vital Signs - 24 hr 12/13/23 11:29 Temperature 97.7 F Pulse Rate [Pulse Oximeter] 102 H Respiratory Rate 18 Blood Pressure [Ri ght Upper Arm] 127/78 Pulse Oximetry 99 Oxygen Delivery Me thod Room Air Course Vital Signs Vital signs: Initial Vital Signs Temperature 97.7 F 12/13/23 11:29 Temperature Source Temporal Artery Scan 12/13/23 11:29 Pulse Rate 102 H 12/13/23 11:29 Respiratory Rate 18 12/13/23 11:29 Blood Pressure 127/78 12/13/23 11:29 Blood Pressure Mean 94 12/13/23 11:29 Blood Pressure Position Sitting 12/13/23 11:29 Pulse Oximetry 99 12/13/23 11:29 Oxygen Delivery Method Room Air 12/13/23 11:29 Vital Signs Temperature 97.7 F 12/13/23 11:29 Pulse Rate 102 H 12/13/23 11:29 Respiratory Rate 18 12/13/23 11:29 Blood Pressure 127/78 12/13/23 11:29 Pulse Oximetry 99 12/13/23 11:29 Oxygen Delivery Method Room Air 12/13/23 11:29 Temperature 97.7 F 12/13/23 11:29 Pulse Rate 102 H 12/13/23 11:29 Respiratory Rate 18 12/13/23 11:29 Blood Pressure 127/78 12/13/23 11:29 Pulse Oximetry 99 12/13/23 11:29 Oxygen Delivery Method Room Air 12/13/23 11:29 Discharge Plan Discharge Prescriptions: No Action benzonatate 100 mg capsule 100 mg PO BID-TID PRN (Reason: cough) Qty: 20 0RF potassium chloride 20 mEq tablet,ER particles/crystals 20 meq PO BID losartan 25 mg tablet 25 mg PO DAILY melatonin 3 mg capsule 3 mg PO QHS allopurinol 100 mg tablet 50 mg PO DAILY rosuvastatin 20 mg tablet 20 mg PO QPM divalproex [Depakote] 250 mg tablet,delayed release (DR/EC) 250 mg PO QHS lorazepam [Ativan] 0.5 mg tablet 0.5 mg PO TID PRN sennosides-docusate sodium [Senna-S] 8.6-50 mg tablet 1 tab-cap PO BID donepezil [Aricept] 5 mg tablet 5 mg PO QHS Qty: 14 2RF gabapentin 100 mg capsule 100 mg PO QHS Qty: 14 2RF venlafaxine 75 mg capsule,extended release 24hr 50 mg PO DAILY carvedilol 12.5 mg tablet 6.25 mg PO BID venlafaxine 150 mg capsule,extended release 24hr 50 mg PO DAILY cyanocobalamin (vitamin B-12) 1,000 mcg tablet 1,000 mcg PO DAILY amlodipine 2.5 mg tablet 5 mg PO DAILY chlorthalidone 25 mg tablet 25 mg PO DAILY ferrous sulfate [FeroSul] 325 mg (65 mg iron) tablet 325 mg PO BID metformin 1,000 mg tablet 1,000 mg PO BID omeprazole 20 mg capsule,delayed release(DR/EC) 20 mg PO BID losartan 100 mg tablet 100 mg PO DAILY rosuvastatin 10 mg tablet 10 mg PO QPM Follow Up/Referrals: Eloise Reeves DO [Primary Care Provider] -
--- NOTE | 2023-12-13 13:29 | ED.NURSE ---
Patient was roomed in room 2, not seen by provider and waited approximately 15 minutes. She walked out of the room and asked to leave and sign the AMA form.
--- OUTSIDE RECORDS SUMMARY | 2023-12-13 13:34 | XMS_ITS | Referral Summary ---
Author Name Unknown Organization [facility] Address [address] [place] [address] Phone Care Team Providers Care Hand Pleater Name Role Phone Eloise Reeves Sushil BUSBY Primary Care Provider [phone] Source Comments [employer] is fully rolled out on aWhere. Last update 04/02/09.[facility] Encounters Date Type Department Care Team Description 11/27/2023 1:00 PM PIN STICKER [facility] [address] [address] Leidy Velazquez, PAElodiaC Mild traumatic brain injury, with loss of consciousness of 30 minutes or less, initial encounter ([facility]) (Primary Dx); Reversed sleep wake cycle; Lack of appetite Discharge Disposition: Discharged to home or self care (routine discharge) 11/04/2023 10:39 PM PIN STICKER - 11/16/2023 9:19 AM PIN STICKER Hospital Encounter [facility] Surgery/Trauma/Kimmie ro [address] [place] [address] Devin Dougherty MD Petrun, Branden, MD Lumbard, [...] (40 mEq) by mouth daily. 11/14/2023 Active sennosides-docusa te sodium (STOOL SOFTENER/LAXATIVE ) 8.6-50 mg oral tablet Take 1 tablet by mouth twice daily as needed for Constipation. 11/13/2023 Active hydrOXYzine (ATARAX;VISTARIL) 25 mg oral tablet Take 1 tablet (25 mg) by mouth every 6 hours as needed. Active amLODIPine (NORVASC) 5 mg oral TABS Take 1 tablet (5 mg) by mouth daily. 11/14/2023 11/27/2023 Discontinued( Alternate therapy) Active Problems Problem Noted Date Diagnosed [...] Comments Blood Pressure 108/71 11/27/2023 12:54 PM PIN STICKER Pulse 74 11/27/2023 12:54 PM PIN STICKER Temperature 36.6 ??C (97.8 ??F) 11/16/2023 4:25 AM CS T Respiratory Rate 16 11/16/2023 4:25 AM PIN STICKER Oxygen Saturation 90% 11/16/2023 4:25 AM PIN STICKER Inhaled Oxygen Concentration - - Weight 61.6 kg (135 lb 12.8 oz) 024 12:54 PM PIN STICKER Height 147.3 cm (4' 10) 11/05/2023 12: 03 AM PIN STICKER Body Mass Index 28.38 11/05/2023 12:03 AM PIN STICKER Plan of Treatment Not on file Procedures Procedure Name Priority Date/Time Associated Diagnosis Comments PANEL BASIC METABOLIC (BMP) Routine 11/16/2023 7:22 AM PIN STICKER POC GLUCOSE Routine 11/16/2023 6:58 AM PIN STICKER POC GLUCOSE Routine 11/15/2023 9:15 PM PIN STICKER POC GLUCOSE Routine 11/15/2023 4:09 PM PIN STICKER POC GLUCOSE Routine 11/15/2023 12:46 PM PIN STICKER PANEL BASIC METABOLIC (BMP) Routine 11/15/2023 7:39 AM PIN STICKER POC GLUCOSE Routine 11/15/2023 6:11 AM PIN STICKER POC GLUCOSE Routine 11/14/2023 9:02 PM PIN STICKER POC GLUCOSE Routine 11/14/2023 4:21 PM PIN STICKER POC GLUCOSE Routine 11/14/2023 12:19 PM PIN STICKER PANEL BASIC METABOLIC (BMP) Routine 11/14/2023 8:59 AM PIN STICKER POC GLUCOSE Routine 11/14/2023 8:11 AM PIN STICKER POC GLUCOSE Routine 11/13/2023 9:15 PM PIN STICKER POC GLUCOSE Routine 11/13/2023 4:03 PM PIN STICKER POC GLUCOSE Routine 11/13/2023 11:21 AM PIN STICKER PANEL BASIC METABOLIC (BMP) Routine 11/13/2023 6:41 AM PIN STICKER POC GLUCOSE Routine 11/13/2023 6:31 AM PIN STICKER POC GLUCOSE Routine 11/12/2023 9:21 PM PIN STICKER POC GLUCOSE Routine 11/12/2023 4:12 PM PIN STICKER PANEL BASIC METABOLIC (BMP) Timed 11/12/2023 1:01 PM PIN STICKER POC GLUCOSE Routine 11/12/2023 12:14 PM PIN STICKER POC GLUCOSE Routine 11/12/2023 6:09 AM PIN STICKER POC GLUCOSE Routine 11/11/2023 8:48 PM PIN STICKER POC GLUCOSE Routine 11/11/2023 4:11 PM PIN STICKER POC GLUCOSE Routine 11/11/2023 11:47 AM PIN STICKER PHOSPHORUS Routine 11/11/2023 6:09 AM PIN STICKER PANEL BASIC METABOLIC (BMP) Routine 11/11/2023 6:09 AM PIN STICKER MAGNESIUM Routine 11/11/2023 6:09 AM PIN STICKER TC LAB BLOOD DRAW BY VENIPUNCTURE Routine 11/11/2023 6:09 AM PIN STICKER POC GLUCOSE Routine 11/10/2023 8:58 PM PIN STICKER POC GLUCOSE Routine 11/10/2023 4:16 PM PIN STICKER POC GLUCOSE Routine 11/10/2023 11:15 AM PIN STICKER PHOSPHORUS Routine 11/10/2023 6:17 AM PIN STICKER PANEL BASIC METABOLIC (BMP) Routine 11/10/2023 6:17 AM PIN STICKER MAGNESIUM Routine 11/10/2023 6:17 AM PIN STICKER PC LAB CBC/PLT Routine 11/10/2023 6:17 AM PIN STICKER POC GLUCOSE Routine 11/09/2023 9:41 PM PIN STICKER POC GLUCOSE Routine 11/09/2023 3:58 PM PIN STICKER ANTI XA ASSAY LMW HEPARIN Timed 11/09/2023 2:18 PM PIN STICKER POC GLUCOSE Routine 11/09/2023 11:28 AM PIN STICKER XR FOOT RIGHT 3 V AP/OBL/LAT* Routine 11/09/2023 10:36 AM PIN STICKER TELEMETRY STRIPS 11/09/2023 8:48 AM PIN STICKER POC GLUCOSE Routine 11/09/2023 5:46 AM PIN STICKER PC VALPROIC ACID LEVEL DEPAHOTE Routine 11/09/2023 5:41 AM PIN STICKER PHOSPHORUS Routine 11/09/2023 5:41 AM PIN STICKER PANEL BASIC METABOLIC (BMP) Routine 11/09/2023 5:41 AM PIN STICKER MAGNESIUM Routine 11/09/2023 5:41 AM PIN STICKER PC LAB CBC/PLT Routine 11/09/2023 5:41 AM PIN STICKER TELEMETRY STRIPS 11/09/2023 1:21 AM PIN STICKER POC GLUCOSE Routine 11/08/2023 8:40 PM PIN STICKER TELEMETRY STRIPS 11/08/2023 7:31 PM PIN STICKER PHOSPHORUS Routine 11/08/2023 4:20 PM PIN STICKER MAGNESIUM Routine 11/08/2023 4:20 PM PIN STICKER PANEL BASIC METABOLIC (BMP) Routine 11/08/2023 4:20 PM PIN STICKER TC LAB BLOOD DRAW BY VENIPUNCTURE Routine 11/08/2023 4:20 PM PIN STICKER POC GLUCOSE Routine 11/08/2023 3:56 PM PIN STICKER POC GLUCOSE Routine 11/08/2023 11:03 AM PIN STICKER TELEMETRY STRIPS 11/08/2023 9:49 AM PIN STICKER XR CHEST 1 VIEW AP OR PA* Routine 11/08/2023 6:30 AM PIN STICKER POC GLUCOSE Routine 11/08/2023 6:22 AM PIN STICKER TELEMETRY STRIPS 11/08/2023 2:59 AM PIN STICKER POC GLUCOSE Routine 11/07/2023 9:34 PM PIN STICKER TELEMETRY STRIPS 11/07/2023 7:31 PM PIN STICKER POC GLUCOSE Routine 11/07/2023 4:06 PM PIN STICKER POC GLUCOSE Routine 11/07/2023 11:45 AM PIN STICKER XR CHEST 2 VIEWS PA + LAT* Routine 11/07/2023 10:07 AM PIN STICKER TELEMETRY STRIPS 11/07/2023 9:29 AM PIN STICKER PC PROCALCITONIN (PCT) Routine 8:34 AM PIN STICKER PC LAB CBC/PLT Routine 11/07/2023 8:34 AM PIN STICKER PANEL BASIC METABOLIC (BMP) Routine 11/07/2023 8:34 AM PIN STICKER MAGNESIUM Routine 11/07/2023 8:34 AM PIN STICKER PHOSPHORUS Routine 11/07/2023 8:34 AM PIN STICKER POC GLUCOSE Routine 11/07/2023 5:45 AM PIN STICKER TELEMETRY STRIPS 11/07/2023 1:07 AM PIN STICKER POC GLUCOSE Routine 11/06/2023 9:21 PM PIN STICKER TELEMETRY STRIPS 11/06/2023 4:28 PM PIN STICKER PC GASES,BLOOD,ANY COMB OF PH,PCD2,PO2,CO2,HCO2 Routine 11/06/2023 1:06 PM PIN STICKER MAGNESIUM Timed 11/06/2023 1:06 PM PIN STICKER PHOSPHORUS Timed 11/06/2023 1:06 PM PIN STICKER PANEL BASIC METABOLIC (BMP) Timed 11/06/2023 1:06 PM PIN STICKER PC LAB CBC/PLT Timed 11/06/2023 1:06 PM PIN STICKER POC GLUCOSE Routine 11/06/2023 1:04 PM PIN STICKER POC GLUCOSE Routine 11/06/2023 10:49 AM PIN STICKER TELEMETRY STRIPS 11/06/2023 8:49 AM PIN STICKER PC LAB GLYCOSYLATED HGB Routine 11/06/2023 6:31 AM PIN STICKER PROTHROMBIN (PT) & INR Timed 6:31 AM PIN STICKER PC PHOSPHORUS INORGANIC(PHOSPHATE) Routine 11/06/2023 6:31 AM PIN STICKER PC MAGNESIUM, SERUM Routine 11/06/2023 6 :31 AM PIN STICKER PC LAB CBC/PLT Routine 11/06/2023 6:31 AM PIN STICKER TC LAB BLOOD DRAW BY VENIPUNCTURE Routine 11/06/2023 6:31 AM PIN STICKER POC GLUCOSE Routine 11/06/2023 5:39 AM PIN STICKER TELEMETRY STRIPS 11/06/2023 1:52 AM PIN STICKER POC GLUCOSE Routine 11/05/2023 4:54 PM PIN STICKER MAGNESIUM Routine 11/05/2023 4:48 PM PIN STICKER POTASSIUM Routine 11/05/2023 4:[address] HEAD NO IV CONTRAST Timed 11:44 AM PIN STICKER POC GLUCOSE Routine 11/05/2023 11:11 AM PIN STICKER TELEMETRY STRIPS 11/05/2023 9:25 AM PIN STICKER EKG ADULT (12-LEAD) Routine 11/05/2023 6 :38 AM PIN STICKER POC GLUCOSE Routine 11/05/2023 6:[address] HEAD NO IV CONTRAST Timed 4:54 AM PIN STICKER PROTHROMBIN (PT) & INR Timed 4:27 AM PIN STICKER PC PHOSPHORUS INORGANIC(PHOSPHATE) Routine 11/05/2023 4:27 AM PIN STICKER PC MAGNESIUM, SERUM Routine 11/05/2023 4 :27 AM PIN STICKER PC GASES,BLOOD,ANY COMB OF PH,PCD2,PO2,CO2,HCO2 Routine 11/05/2023 4:27 AM PIN STICKER PC LAB CBC/PLT Routine 11/05/2023 4:27 AM PIN STICKER TC LAB BLOOD DRAW BY VENIPUNCTURE Routine 11/05/2023 4:27 AM PIN STICKER PC TROPONIN QUANTITATIVE Timed 11/05/2023 4:27 AM PIN STICKER PC TROPONIN QUANTITATIVE Timed 11/05/2023 2:58 AM PIN STICKER CK, TOTAL STAT 11/05/2023 1:32 AM PIN STICKER FIBRINOGEN STAT 11/05/2023 1:32 AM PIN STICKER PC LAB PTT STAT 11/05/2023 1:32 AM PIN STICKER PANEL HEPATIC FUNCTION STAT 1:32 AM PIN STICKER PC LAB CBC/PLT STAT 11/05/2023 1:32 AM PIN STICKER PANEL BASIC METABOLIC (BMP) STAT 11/05/2023 1:32 AM PIN STICKER MAGNESIUM STAT 11/05/2023 1:32 AM PIN STICKER PHOSPHORUS STAT 11/05/2023 1:32 AM PIN STICKER PROTHROMBIN (PT) & INR STAT 1:32 AM PIN STICKER PC IONIZED,CALCIUM STAT 11/05/2023 1: 18 AM PIN STICKER PC LACTATE (LACTIC ACID) STAT 11/05/2023 1:18 AM PIN STICKER PC GASES,BLOOD,ANY COMB OF PH,PCD2,PO2,CO2,HCO2 STAT 11/05/2023 1:18 AM PIN STICKER PC TROPONIN QUANTITATIVE Timed 11/05/2023 1:[address] HEAD-NECK - ANGIO - W/IV CON STAT 11/05/2023 12:09 AM PIN STICKER PC LAB COMPLETE UA STAT 11/04/2023 11 :55 PM PIN STICKER PF INSERT CATH,ART,PERCUT,SANTA ERM Routine 11/04/2023 11:43 PM PIN STICKER ED EKG (12-LEAD) Routine 11/04/2023 11:[address] SPINE LUMBAR NO IV CON STAT 11/04/2023 11:[address] SPINE THORACIC NO IV CON STAT 11/04/2023 11:[address] CHEST/ABD/PELVIS W/IV CONT STAT 11/04/2023 11:[address] SPINE CERVICAL NO IV CON STAT 11/04/2023 11:[address] HEAD NO IV CONTRAST STAT 11:05 PM PIN STICKER XR CHEST 1 VIEW AP OR PA* STAT 11/04/2023 10:57 PM PIN STICKER TC LAB ER STAT TOTAL HGB STAT 11/04/2023 10:48 PM PIN STICKER PC ELECTROLYTES PANEL STAT 11/04/2023 10:48 PM PIN STICKER PC HEPARIN ASSAY STAT 11/04/2023 10:4 5 PM PIN STICKER EXTRA TUBE - SST Routine 11/04/2023 10:4 5 PM PIN STICKER TC LAB BLOOD DRAW BY VENIPUNCTURE Routine 11/04/2023 10:45 PM PIN STICKER PC TROPONIN QUANTITATIVE STAT 11/04/2023 10:45 PM PIN STICKER PC LAB PTT STAT 11/04/2023 10:45 PM PIN STICKER PC LAB ED INR STAT 11/04/2023 10:45 PM PIN STICKER PRECAUTIONARY TUBE STAT 11/04/2023 10 :45 PM PIN STICKER PC LACTATE (LACTIC ACID) STAT 11/04/2023 10:45 PM PIN STICKER FIBRINOGEN STAT 11/04/2023 10:45 PM PIN STICKER PC LAB CBC W/DIFF & PLT STAT 11/04/2023 10:45 PM PIN STICKER PC GASES,BLOOD,ANY COMB OF PH,PCD2,PO2,CO2,HCO2 STAT 11/04/2023 10:45 PM PIN STICKER ED US CRITICAL CARE STAT 11/04/2023 1 0:40 PM PIN STICKER PANEL LIPID Routine 10/10/2021 11:08 AM PIN STICKER from Last 3 Months or Most Recently Relevant to Health Maintenance Results * (ABNORMAL) PANEL BASIC METABOLIC (BMP) (11/16/2023 7:22 AM PIN STICKER) Only the most recent of12 resultswithin the time period is included. [facility] Signature Sodium 143 135 - 148 mEq/L [facility] Potassium 3.9 3.5 - 5.3 mEq/L [facility] Chloride 105 92 - 108 mEq/L [facility] CO2 27 22 - 30 mEq/L [facility] AnGap 11 8 - 16 mEq/L [facility] Glucose 87 70 - 100 mg/dL [facility] BUN 23 8 - 23 mg/dL [facility] Creatinine 1.19(H) 0.50 - 1.00 mg/dL [facility] Calcium 9.4 8.8 - 10.2 mg/dL [facility] eGFR (2020 CKD-EPI) 46(L) >=60 ml/min/1.7 3m2 [facility] Comment: The estimated glomerular filtration rate (eGFR) was calculated using the CKD-EPI 2020 creatinine equation, which does not include race as a factor. This equation is validated in individuals 18 years of age and older, and eGFR is normalized to a body surface area of 1.73m^2. Blood 11/16/2023 7:22 AM PIN STICKER 11/16/2023 7:43 AM PIN STICKER Jesusita Aiken APRN, SENIOR CONTRACT SPECIALIST LABORATO RY [facility] [place] [address] * POC GLUCOSE (11/16/2023 6:58 AM PIN STICKER) Only the most recent of42 resultswithin the time period is included. POC Glucose 84 70 - 100 mg/dL [facility] Blood 11/16/2023 6:58 AM PIN STICKER Devin Dougherty MD LABORATORY [facility] [address] [place] [address], * PHOSPHORUS (11/11/2023 6:09 AM PIN STICKER) Only the most recent of7 resultswithin the time period is included. Phosphorus 3.5 2.5 - 4.5 mg/dL [facility] Blood 11/11/2023 6:09 AM PIN STICKER 11/11/2023 6:36 AM PIN STICKER Quinn Covarrubias MD LABORATORY Performing Organization Address City/[facility]/ZIP Co de Phone Number [facility] [address] [address] * MAGNESIUM (11/11/2023 6:09 AM PIN STICKER) Only the most recent of8 resultswithin the time period is included. Magnesium 2.2 1.6 - 2.4 mg/dL [facility] Blood 11/11/2023 6:09 AM PIN STICKER 11/11/2023 6:36 AM PIN STICKER Quinn Covarrubias MD LABORATORY Performing Organization Address [facility] Co de Phone Number [facility] [address] [address] * (ABNORMAL) CBC WITH PLATELET (11/11/2023 6:09 AM PIN STICKER) Only the most recent of7 resultswithin the time period is included. WBC 5.60 4.00 - 10.00 k/cmm [facility] RBC 3.80(L) 3.90 - 5.20 m/cmm [facility] Hgb 9.5(L) 11.5 - 15.7 g/dL [facility] Hematocrit 31.4(L) 34.0 - 45.0 % [facility] MCV 82.6 80.0 - 100.0 fL [facility] MCH 25.0 25.0 - 32.0 pg [facility] MCHC 30.3(L) 31.0 - 36.0 g/dL [facility] RDW 16.1(H) 11.5 - 14.5 % [facility] Plt 275 150 - 400 k/cmm [facility] MPV 11.8 6.5 - 12.5 fL [facility] Blood 11/11/2023 6:09 AM PIN STICKER 11/11/2023 6:36 AM PIN STICKER Quinn Covarrubias MD LABORATORY Performing Organization Address City/[facility]/ZIP Co de Phone Number [facility] [address] [address] * ANTI XA ASSAY LMW HEPARIN (11/09/2023 2:18 PM PIN STICKER) Anti XA LMW 0.32 IU/mL [facility] Comment: Anti Xa Assay LMW Heparin Therapeutic Ranges: 0.4-1.1 IU/mL for twice daily 1.0-2.0 IU/mL for once daily Blood 11/09/2023 2:18 PM PIN STICKER 11/09/2023 2:29 PM PIN STICKER Quinn Covarrubias MD LABORATORY [facility] [address] [address] * XR FOOT RIGHT 3 V AP/OBL/LAT* (11/09/2023 10:36 AM PIN STICKER) Anatomical Region Laterality Modality Foot Computed Radiogr aphy 11/09/2023 10:4 7 AM PIN STICKER Impressions 11/09/2023 10:50 AM PIN STICKER Impression: No acute osseous abnormality. Generalized osteopenia. Reading Radiologist: Angela Camp Narrative 11/09/2023 10:50 AM PIN STICKER Technique: XR FOOT RIGHT 3 V AP/OBL/LAT* [...] Reading Radiologist: Angela Camp Jesusita Aiken APRN, SENIOR CONTRACT SPECIALIST RAD XRAY * TELEMETRY STRIPS (11/09/2023 8:48 AM PIN STICKER) Only the most recent of12 resultswithin the time period is included. Narrative 11/09/2023 8:48 AM PIN STICKER Ordered by an unspecified provider. Provider Unknown RAD ECHO * (ABNORMAL) VALPROATE (DEPAKOTE) LEVEL (11/09/2023 5:41 AM PIN STICKER) Valproate 31.8(L) 50.0 - 100.0 mcg/mL [facility] Blood 11/09/2023 5:41 AM PIN STICKER 11/09/2023 8:19 AM PIN STICKER Quinn Covarrubias MD LABORATORY [facility] [address] [address] * XR CHEST 1 VIEW AP OR PA* (11/08/2023 6:30 AM PIN STICKER) Only the most recent of2 resultswithin the time period is included. Anatomical Region Laterality Modality Chest Computed Radiogr aphy 11/08/2023 6:56 AM PIN STICKER Impressions 11/08/2023 7:24 AM PIN STICKER Impression: Stable chest. I have personally reviewed the image(s) and initial interpretation, and I agree with the findings as documented by the resident/fellow. Reading Radiologist: Ronal Hidalgo Reading Resident: Laith Berkowitz Narrative 11/08/2023 7:24 AM PIN STICKER Technique: XR CHEST 1 VIEW AP OR [...] VIEWS PA + LAT* (11/07/2023 10:07 AM PIN STICKER) Anatomical Region Laterality Modality Chest Computed Radiogr aphy 11/07/2023 10:0 9 AM PIN STICKER Impressions 11/07/2023 10:10 AM PIN STICKER Impression: New left basilar opacities with small effusion concerning for developing infection. Reading Radiologist: Phil Contreras Narrative 11/07/2023 10:10 AM PIN STICKER Technique: XR CHEST 2 VIEWS PA + [...] RAD XRAY * PROCALCITONIN (11/07/2023 8:34 AM PIN STICKER) Procalcitonin 0.12 ng/mL [facility] Comment: Results <0.50 ng/mL represent a low risk of severe sepsis and/or septic shock. Results >2.0 ng/mL represent a high risk of severe sepsis and/or septic shock. Blood 11/07/2023 8:34 AM PIN STICKER 11/07/2023 8:40 AM PIN STICKER Quinn Covarrubias MD LABORATORY [facility] [address] [address] * (ABNORMAL) BLOOD GASES (11/06/2023 1:06 PM PIN STICKER) Only the most recent of3 resultswithin the time period is included. PH Jalen 7.36 7.32 - 7.42 [facility] PCO2 Jalen 48 41 - 51 mmHG [facility] PO2 Jalen 86(H) 25 - 40 mmHG [facility] Bicarb Jalen 26 24 - 28 mEq/L [facility] O2 Sat Jalen 96 % [facility] Base Exc Jalen 1.0 -10.0 - 2.0 mEq/L [facility] Blood Venous 11/06/2023 1:06 PM PIN STICKER 11/06/2023 1:10 PM PIN STICKER Narrative [facility] - 11/06/2023 1:16 PM PIN STICKER Draw on Room Air: No O2 LPM (liter/min) Level->4 via mask FiO2 Level: 100 Quinn Covarrubias MD LABORATORY Performing Organization Address City/[facility] Co de Phone Number [facility] [address] [address] * (ABNORMAL) ICU MAGNESIUM (11/06/2023 6:31 AM PIN STICKER) Only the most recent of2 resultswithin the time period is included. Magnesium 2.5(H) 1.6 - 2.4 mg/dL [facility] Blood 11/06/2023 6:31 AM PIN STICKER 11/06/2023 7:37 AM PIN STICKER Devin Dougherty MD LABORATORY Performing Organization Address [facility] Co de Phone Number [facility] [address] [address] * ICU PHOSPHORUS (11/06/2023 6:31 AM PIN STICKER) Only the most recent of2 resultswithin the time period is included. Phosphorus 4.1 2.5 - 4.5 mg/dL [facility] Blood 11/06/2023 6:31 AM PIN STICKER 11/06/2023 7:37 AM PIN STICKER Devin Dougherty MD LABORATORY Performing Organization Address City/[facility] Co de Phone Number [facility] [address] [address] * (ABNORMAL) ICU CBC WITH PLATELET (11/06/2023 6:31 AM PIN STICKER) Only the most recent of2 resultswithin the time period is included. [facility] WBC 9.06 4.00 - 10.00 k/cmm [facility] RBC 3.77(L) 3.90 - 5.20 m/cmm [facility] Hgb 9.6(L) 11.5 - 15.7 g/dL [facility] Hematocrit 30.8(L) 34.0 - 45.0 % [facility] MCV 81.7 80.0 - 100.0 fL [facility] MCH 25.5 25.0 - 32.0 pg [facility] MCHC 31.2 31.0 - 36.0 g/dL [facility] RDW 15.9(H) 11.5 - 14.5 % [facility] Plt 284 150 - 400 k/cmm [facility] MPV 12.1 6.5 - 12.5 fL [facility] Blood 11/06/2023 6:31 AM PIN STICKER 11/06/2023 7:37 AM PIN STICKER Devin Dougherty MD LABORATORY [facility] [address] [address] * (ABNORMAL) ICU PANEL BASIC METABOLIC (BMP) (11/06/2023 6:31 AM PIN STICKER) Only the most recent of2 resultswithin the time period is included. [facility] Sodium 142 135 - 148 mEq/L [facility] Potassium 3.7 3.5 - 5.3 mEq/L [facility] Chloride 107 92 - 108 mEq/L [facility] CO2 26 22 - 30 mEq/L [facility] AnGap 9 8 - 16 mEq/L [facility] Glucose 148(H) 70 - 100 mg/dL [facility] BUN 12 8 - 23 mg/dL [facility] Creatinine 0.77 0.50 - 1.00 mg/dL [facility] Calcium 8.7(L) 8.8 - 10.2 mg/dL [facility] eGFR (2020 CKD-EPI) 77 >=60 ml/min/1.7 3m2 [facility] Comment: The estimated glomerular filtration rate (eGFR) was calculated using the CKD-EPI 2020 creatinine equation, which does not include race as a factor. This equation is validated in individuals 18 years of age and older, and eGFR is normalized to a body surface area of 1.73m^2. Blood 11/06/2023 6:31 AM PIN STICKER 11/06/2023 7:37 AM PIN STICKER Devin Dougherty MD LABORATORY [facility] [address] [address] * PROTHROMBIN (PT) & INR (11/06/2023 6:31 AM PIN STICKER) Only the most recent of3 resultswithin the time period is included. PT 11.4 9.0 - 12.5 sec [facility] INR 1.0 0.8 - 1.1 [facility] Comment: Warfarin Therapeutic Range: Standard Intensity: 2.0 - 3.0 High Intensity: 2.5 - 3.5 Blood 11/06/2023 6:31 AM PIN STICKER 11/06/2023 7:37 AM PIN STICKER Quinn Covarrubias MD LABORATORY [facility] [address] [address] * (ABNORMAL) GLYCOSYLATED HGB - A1C (11/06/2023 6:31 AM PIN STICKER) Hemoglobin A1C 8.1(H) 4.0 - 5.6 % [facility] Comment: Increased risk for diabetes (prediabetes): 5.7-6.4% Diabetes: greater than or equal to 6.5% * * In the absence of unequivocal hyperglycemia, diagnosis requires two abnormal test results (i.e. HbA1c and glucose) or two abnormal results from specimens collected at two different timepoints. Estimated Average Glucose 186(H) 68 - 114 [facility] Comment: The ADA recommends reporting an estimated Average Glucose (eAG) with all hemoglobin A1c results using the equation derived from a study of 501 normal diabetic adults. Minority populations were underrepresented and children were not included. The EAG is not equivalent to a fasting glucose. Blood 11/06/2023 6:31 AM PIN STICKER 11/06/2023 11:28 AM PIN STICKER Quinn Covarrubias MD LABORATORY Performing Organization Address [facility] Co de Phone Number [facility] [address] [id number] * (ABNORMAL) POTASSIUM (11/05/2023 4:48 PM PIN STICKER) Potassium 3.2(L) 3.5 - 5.3 mEq/L [facility] Blood 11/05/2023 4:48 PM PIN STICKER 11/05/2023 4:58 PM PIN STICKER Quinn Covarrubias MD LABORATORY Performing Organization Address [facility] de Phone Number [facility] [address] [phone] * CT HEAD NO IV CONTRAST (11/05/2023 11:44 AM PIN STICKER) Only the most recent of3 resultswithin the time period is included. Anatomical Region Laterality Modality Skull Computed Tomogra phy 11/05/2023 12:1 6 PM PIN STICKER Impressions 11/05/2023 12:38 PM PIN STICKER Impression: Stable head CT as compared to the study performed 7 hours earlier. Intra-axial and extra-axial hemorrhage(s) without midline shift or hydrocephalus. The basal cisterns are patent. Reading Radiologist: Ford Fernández 11/05/2023 12:38 PM PIN STICKER Exam: Head CT without contrast, 11/05/2023 Indication: [...] * EKG ADULT (12-LEAD) (11/05/2023 6:38 AM PIN STICKER) 11/05/2023 6:38 AM PIN STICKER Impressions [facility] CVIS EKG ORDERS - 11/05/2023 6:38 AM PIN STICKER SINUS RHYTHM RIGHT BUNDLE BRANCH BLOCK ??[120+ ms QRS DURATION, UPRIGHT V1, 40+ ms S IN I/aVL/V4/V5/V6] ABNORMAL ECG P-R Interval 151 ms QRS Interval 128 ms QT Interval 420 ms QTC Interval 462 ms P [place] 9 QRS [place] 27 T Wave [place] 70 Narrative Procedure Note Lauren Mills MD - 11/06/2023 IMPRESSION SINUS RHYTHM RIGHT BUNDLE BRANCH BLOCK [120+ ms QRS DURATION, UPRIGHT V1, 40+ ms S INI/aVL/V4/V5/V6] ABNORMAL ECG P-R Interval 151 ms QRS Interval 128 ms QT Interval 420 ms QTC Interval 462 ms P [place] 9 QRS [place] 27 T Wave [place] 70 Quinn Covarrubias MD EKG Performing Organization Address [facility] Co de Phone Number [facility] CVIS EKG ORDERS * (ABNORMAL) ICU BLOOD GAS (11/05/2023 4:27 AM PIN STICKER) PH Art 7.38 7.35 - 7.45 [facility] PCO2 Art 42 35 - 45 mmHG [facility] PO2 Art 99(H) 75 - 85 mmHG [facility] Bicarb Art 25 22 - 26 mEq/L [facility] O2 Sat Art 98 96 - 99 % [facility] Base Exc Art 0.0 -10.0 - 2.0 mEq/L [facility] Blood Arterial 11/05/2023 4: 27 AM PIN STICKER 11/05/2023 4:34 AM PIN STICKER Devin Dougherty MD LABORATORY Performing Organization Address City/[facility] Co de Phone Number [facility] [address] [address] * (ABNORMAL) TROP 6H (11/05/2023 4:27 AM PIN STICKER) 6H Trop 51(H) <=14 ng/L [facility] 6H Delta Significan t(A) Not Significant [facility] Blood 11/05/2023 4:27 AM PIN STICKER 11/05/2023 4:35 AM PIN STICKER Devin Dougherty MD LABORATORY Performing Organization Address [facility] Co de Phone Number [facility] [address] [address] * (ABNORMAL) TROP 4H (11/05/2023 2:58 AM PIN STICKER) 4H Trop 39(H) <=14 ng/L [facility] 4H Delta Significan t(A) Not Significant [facility] Blood 11/05/2023 2:58 AM PIN STICKER 11/05/2023 3:48 AM PIN STICKER Devin Dougherty MD LABORATORY Performing Organization Address [facility] Co de Phone Number [facility] [address] [address] * (ABNORMAL) PANEL HEPATIC FUNCTION (11/05/2023 1:32 AM PIN STICKER) Alk Phos 111(H) 35 - 104 IU/L [facility] Total Protein 6.5 6.4 - 8.3 g/dL [facility] Bili Direct na <=0.3 mg/dL [facility] Comment:Direct Bilirubin = < 0.2. Accuracy of result suspect due to lipemia. Albumin 3.8 3.8 - 5.1 g/dL [facility] Bili Total <0.2 <=1.2 mg/dL [facility] ALT (SGPT) na <=33 [facility] Comment:ALT = 15. Accuracy o f result suspect due to lipemia. AST(SGOT) na 5 - 40 [facility] Comment:AST = 27. Accuracy o f result suspect due to lipemia. Blood 11/05/2023 1:32 AM PIN STICKER 11/05/2023 1:32 AM PIN STICKER Devin Dougherty MD LABORATORY Performing Organization Address City/[facility]/ZIP Co de Phone Number [facility] [address] [address] * FIBRINOGEN (11/05/2023 1:32 AM PIN STICKER) Only the most recent of2 resultswithin the time period is included. Fibrinogen 262 200 - 400 mg/dL [facility] Blood 11/05/2023 1:32 AM PIN STICKER 11/05/2023 1:32 AM PIN STICKER Devin Dougherty MD LABORATORY Performing Organization Address [facility] Co de Phone Number [address] [address] * CK, TOTAL (11/05/2023 1:32 AM PIN STICKER) CK 56 26 - 192 IU/L [facility] Blood 11/05/2023 1:32 AM PIN STICKER 11/05/2023 1:32 AM PIN STICKER Devin Dougherty MD LABORATORY Performing Organization Address [facility] Co de Phone Number [facility] [address] [address] * PTT (APTT) (11/05/2023 1:32 AM PIN STICKER) Only the most recent of2 resultswithin the time period is included. APTT 26.0 25.0 - 37.0 sec [facility] Blood 11/05/2023 1:32 AM PIN STICKER 11/05/2023 1:32 AM PIN STICKER Devin Dougherty MD LABORATORY Performing Organization Address City/[facility] Co de Phone Number [facility] [address] [address] * (ABNORMAL) TROP 2H (11/05/2023 1:18 AM PIN STICKER) 2H Trop 18(H) <=14 ng/L [facility] 2H Delta Indeterminate Not Significant [facility] Blood 11/05/2023 1:18 AM PIN STICKER 11/05/2023 1:45 AM PIN STICKER Devin Dougherty MD LABORATORY Performing Organization Address [facility] Co de Phone Number [address] [address] * LACTATE (LACTIC ACID) (11/05/2023 1:18 AM PIN STICKER) Only the most recent of2 resultswithin the time period is included. Lactate 1.9 0.7 - 2.1 mmol/L [facility] Blood 11/05/2023 1:18 AM PIN STICKER 11/05/2023 1:27 AM PIN STICKER Narrative [facility] - 11/05/2023 1:45 AM PIN STICKER Send specimen on ice! Devin Dougherty MD LABORATORY Performing Organization Address [facility] Co de Phone Number [address] [address] * CALCIUM,IONIZED (11/05/2023 1:18 AM PIN STICKER) PH 7.37 7.32 - 7.42 [facility] ICA, Actual 4.82 4.40 - 5.20 mg/dL [facility] ICA, pH Corrected 4.75 4.40 - 5.20 mg/dL [facility] Blood 11/05/2023 1:18 AM PIN STICKER 11/05/2023 1:27 AM PIN STICKER Narrative [facility] - 11/05/2023 1:44 AM PIN STICKER Send specimen on ice! Devin Dougherty MD LABORATORY Performing Organization Address [facility] Co de Phone Number [address] [address] * CT HEAD-NECK - ANGIO - W/IV CON (11/05/2023 12:09 AM PIN STICKER) Anatomical Region Laterality Modality Skull Computed Tomogra phy 11/05/2023 12:2 1 AM PIN STICKER Impressions 11/05/2023 10:22 AM PIN STICKER Impression: ?? Slightly increased size of the [...] Fernández Resident: Laith Berkowitz 11/05/2023 10:[address] angiogram of the Head with contrast, [...] and reviewed by the Radiologist using the [employer] workstation, and these images were archived in [...] and reviewed by the Radiologist using the [employer] workstation,and these images were archived in the [...] NEURO * (ABNORMAL) URINALYSIS,TOTAL (11/04/2023 11:55 PM PIN STICKER) Color COLORLESS YELLOW [facility] Appearance CLEAR CLEAR [facility] Urine Glucose 100(A) NEGATIVE mg/dL [facility] Bili UA NEGATIVE NEGATIVE [facility] Ketones NEGATIVE NEGATIVE [facility] Specific [place] 1.036(A) 1.003 - 1.030 [facility] Blood Ur NEGATIVE Neg-Trace [facility] PH Urine 7.5(H) 5.0 - 7.0 [facility] Protein Ur TRACE Neg-Trace [facility] Urobilinogen NORMAL NORMAL EU/dL [facility] Nitrite Ur NEGATIVE NEGATIVE [facility] Leuk Est NEGATIVE Neg-Trace [facility] WBC Ur 0-5 0 - 5 perHPF [facility] RBC Ur 0-3 0 - 3 perHPF [facility] SQ EPITH 0-5 0 - 5 perHPF [facility] Urinalysis Performed at: [facility] Urine 11/04/2023 11:5 5 PM PIN STICKER 11/05/2023 12:03 AM PIN STICKER Devin Dougherty MD LABORATORY [facility] [id number] [place] [address] * PF INSERT CATH,ART,PERCUT,SHORTTERM (11/04/2023 11:43 PM PIN STICKER) Narrative Rito Graf MD - 11/04/2023 11:43 PM PIN STICKER Priscilla Holcomb MD ? 11/04/2023 11:44 PM Arterial Line Performed by: Priscilla Holcomb MD Authorized by: Rito Graf MD ?? Consent: ??Consent obtained: ??Verbal ??Consent given by: ??Patient ??Risks discussed: ??Pain, bleeding and infection [place] protocol: ??Patient identity confirmed: ??Verbally with patient, [...] * ED EKG (12-LEAD) (11/04/2023 11:25 PM PIN STICKER) 11/04/2023 11:2 5 PM PIN STICKER Impressions [facility] CVIS EKG ORDERS - 11/04/2023 11:25 PM PIN STICKER SINUS TACHYCARDIA RIGHT BUNDLE BRANCH BLOCK ??[120+ ms QRS DURATION, UPRIGHT V1, 40+ ms S IN I/aVL/V4/V5/V6] ABNORMAL ECG P-R Interval 173 ms QRS Interval 127 ms QT Interval 395 ms QTC Interval 458 ms P [place] 57 QRS [place] 34 T Wave [place] 43 Narrative Procedure Note Vineet Díaz MD - 11/05/2023 IMPRESSION SINUS TACHYCARDIA RIGHT BUNDLE BRANCH BLOCK [120+ ms QRS DURATION, UPRIGHT V1, 40+ ms S INI/aVL/V4/V5/V6] ABNORMAL ECG P-R Interval 173 ms QRS Interval 127 ms QT Interval 395 ms QTC Interval 458 ms P [place] 57 QRS [place] 34 T Wave [place] 43 Devin Dougherty MD EKG [facility] CVIS EKG ORDERS * CT SPINE THORACIC NO IV CON (11/04/2023 11:05 PM PIN STICKER) Anatomical Region Laterality Modality Thoracic Spine Computed Tomogra phy 11/04/2023 11:2 3 PM PIN STICKER Impressions 11/05/2023 9:22 AM PIN STICKER Impression: 1. No suspected acute fracture or dislocation of the thoracic or lumbar spine. ?? 2. Kuqi-pt-hhhobfya lumbar spondylosis without suspected high-grade spinal canal or neural foraminal narrowing. I have personally reviewed the image(s) and initial interpretation, and I agree with the findings as documented by the resident/fellow. Reading Radiologist: Ford Fernández Resident: Laith Berkowitz Narrative 11/05/2023 9:22 AM PIN STICKER Exam: Thoracic and Lumbar Spine CT Reconstructions, [...] dislocation of the thoracic or lumbarspine. 2. Tyhp-vg-gycjpuem lumbar spondylosis without suspected high-grade spinalcanal or neural foraminal narrowing. I have personally reviewed the image(s) and initial interpretation, and Iagree with the findings as documented by the resident/fellow. Reading Radiologist: Ford Fernández Resident: Laith Berkowitz Devin Dougherty MD RAD CT NEURO * CT SPINE LUMBAR NO IV CON (11/04/2023 11:05 PM PIN STICKER) Anatomical Region Laterality Modality Lumbar Spine Computed Tomogra phy 11/04/2023 11:2 3 PM PIN STICKER Impressions 11/05/2023 9:22 AM PIN STICKER Impression: 1. No suspected acute fracture or dislocation of the thoracic or lumbar spine. ?? 2. Kqyr-bw-chfboqsf lumbar spondylosis without suspected high-grade spinal canal or neural foraminal narrowing. I have personally reviewed the image(s) and initial interpretation, and I agree with the findings as documented by the resident/fellow. Reading Radiologist: Ford Fernández Resident: Laith Berkowitz Narrative 11/05/2023 9:22 AM PIN STICKER Exam: Thoracic and Lumbar Spine CT Reconstructions, [...] dislocation of the thoracic or lumbarspine. 2. Mtzi-kx-bfbsrkvh lumbar spondylosis without suspected high-grade spinalcanal or neural foraminal narrowing. I have personally reviewed the image(s) and initial interpretation, and Iagree with the findings as documented by the resident/fellow. Reading Radiologist: Ford Fernández Resident: Laith Berkowitz Devin Dougherty MD RAD CT NEURO * CT SPINE CERVICAL NO IV CON (11/04/2023 11:05 PM PIN STICKER) Anatomical Region Laterality Modality Cervical Spine Computed Tomogra phy 11/04/2023 11:2 0 PM PIN STICKER Impressions 11/05/2023 8:27 AM PIN STICKER Impression: ?? 1. No acute fracture or traumatic subluxation of the cervical vertebrae. 2. Mild degenerative changes of the cervical spine without high-grade spinal canal or neural foraminal narrowing. I have personally reviewed the image(s) and initial interpretation, and I agree with the findings as documented by the resident/fellow. Reading Radiologist: Ford Fernández Resident: Laith Berkowitz Narrative 11/05/2023 8:27 AM PIN STICKER Exam: Cervical spine CT without contrast, 11/04/2023 [...] spinal canal narrowing. C5-6: Mild left and dcsa-hc-mcqfxoib right neural foraminal narrowing. Borderline mild spinal [...] spinal canal narrowing. C5-6: Mild left and vszs-ij-auepxmwj right neural foraminal narrowing.Borderline mild spinal canal [...] CT CHEST/ABD/PELVIS W/IV CONT (11/04/2023 11:05 PM PIN STICKER) Anatomical Region Laterality Modality Chest Computed Tomogra phy 11/04/2023 11:2 9 PM PIN STICKER Impressions 11/05/2023 6:33 AM PIN STICKER Impression: 1. No acute traumatic sequelae in [...] Resident: Laith Berkowitz Narrative 11/05/2023 6:33 AM PIN STICKER Comparison: None Indication: Trauma (STAB) ?? Technique: [...] ED CHEMISTRY LABS(NA,K,CL,CO2,GLU,CREAT,CA-IONIZED,ANION GAP) (11/04/2023 10:48 PM PIN STICKER) Sodium 144 135 - 148 mEq/L [facility] Chloride 106 92 - 108 mEq/L [facility] AnGap 11 8 - 16 mEq/L [facility] Glucose 234(H) 70 - 100 mg/dL [facility] ICA, Actual 4.52 4.40 - 5.20 mg/dL [facility] ICA, pH Corrected 4.51 4.40 - 5.20 mg/dL [facility] Creatinine 0.81 0.50 - 1.00 mg/dL [facility] BICARB 27(H) 22 - 26 mEq/L [facility] eGFR (2020 CKD-EPI) 73 >=60 ml/min/1.7 3m2 [facility] Comment: The estimated glomerular filtration rate (eGFR) was calculated using the CKD-EPI 2020 creatinine equation, which does not include race as a factor. This equation is validated in individuals 18 years of age and older, and eGFR is normalized to a body surface area of 1.73m^2. Potassium 2.8(AA) 3.5 - 5.3 mEq/L [facility] Comment:Critcal Result Low Blood 11/04/2023 10:4 8 PM PIN STICKER 11/04/2023 10:49 PM PIN STICKER Narrative [facility] - 11/04/2023 10:55 PM PIN STICKER Critical value for Potassium called to and read back by Rafa Hutchins RN in ??EDSTAB 2 at 11/04/2023 22:55:31 PIN STICKER by Eleni Spring MLS. Devin Dougherty MD LABORATORY Performing Organization Address [facility] Co de Phone Number [facility] [address] [address] * (ABNORMAL) ED HEMOGLOBIN TOTAL (ED ONLY) (11/04/2023 10:48 PM PIN STICKER) Hgb 10.3(L) 11.5 - 15.7 g/dL [facility] Blood 11/04/2023 10:4 8 PM PIN STICKER 11/04/2023 10:49 PM PIN STICKER Devin Dougherty MD LABORATORY Performing Organization Address City/[facility]/ZIP Co de Phone Number [facility] [address] [address] * ED INR (11/04/2023 10:45 PM PIN STICKER) ED INR 1.0 0.8 - 1.1 [facility] Comment: Warfarin Therapeutic Range: Standard Intensity: 2.0 - 3.0 High Intensity: 2.5 - 3.5 Blood 11/04/2023 10:4 5 PM PIN STICKER 11/04/2023 10:48 PM PIN STICKER Devin Dougherty MD LABORATORY Performing Organization Address City/[facility]/ZIP Co de Phone Number [facility] [address] [address] * EXTRA TUBE - LIGHT GREEN (11/04/2023 10:45 PM PIN STICKER) LIGHT GREEN TUBE Stored [facility] Comment:Green tubes ([place] Heparin) are stored in the lab for 3 days from the collection date. Blood 11/04/2023 10:4 5 PM PIN STICKER 11/04/2023 10:50 PM PIN STICKER Devin Dougherty MD LABORATORY Performing Organization Address [facility] Co de Phone Number [facility] [address] [address] * EXTRA TUBE - SST (11/04/2023 10:45 PM PIN STICKER) SST TUBE Stored [facility] Comment:SST tubes (Serum Sep arator) are stored in the lab for 3 days from the collection date. Blood 11/04/2023 10:4 5 PM PIN STICKER 11/04/2023 10:50 PM PIN STICKER Devin Dougherty MD LABORATORY Performing Organization Address [facility] Co de Phone Number [facility] [address] [address] * HS TROPONIN (11/04/2023 10:45 PM PIN STICKER) HS Troponin I 10 <=14 ng/L [facility] Blood 11/04/2023 10:4 5 PM PIN STICKER 11/04/2023 11:05 PM PIN STICKER Narrative [facility] - 11/04/2023 11:36 PM PIN STICKER First Occurrence of the Troponin order is to be drawn Stat by Nursing staff on the unit. Devin Dougherty MD LABORATORY Performing Organization Address City/[facility]/ZIP Co de Phone Number [facility] [address] [address] * (ABNORMAL) CBC WITH PLTS/AUTO DIFF (11/04/2023 10:45 PM PIN STICKER) WBC 9.42 4.00 - 10.00 k/cmm [facility] RBC 3.86(L) 3.90 - 5.20 m/cmm [facility] Hgb 9.8(L) 11.5 - 15.7 g/dL [facility] Hematocrit 31.8(L) 34.0 - 45.0 % [facility] MCV 82.4 80.0 - 100.0 fL [facility] MCH 25.4 25.0 - 32.0 pg [facility] MCHC 30.8(L) 31.0 - 36.0 g/dL [facility] RDW 15.3(H) 11.5 - 14.5 % [facility] Plt 292 150 - 400 k/cmm [facility] MPV 11.1 6.5 - 12.5 fL [facility] Automated Abs Neutrophil 5.80 1.70 - 6.50 k/cmm [facility] Comment:Preliminary ANC, Fin al Result to Follow Abs Immature Granulocyte 0.07 0.00 - 0.09 k/cmm [facility] Comment:The Immature Granulo cyte Absolute count contains metamyelocytes and myelocytes. Abs Neutrophil 5.80 1.70 - 6.50 k/cmm [facility] Abs Lymphocyte 2.33 0.80 - 4.00 k/cmm [facility] Abs Monocyte 0.88 0.20 - 1.00 k/cmm [facility] Abs Eosinophil 0.27 0.00 - 0.60 k/cmm [facility] Abs Basophil 0.07 0.00 - 0.20 k/cmm [facility] Blood 11/04/2023 10:4 5 PM PIN STICKER 11/04/2023 11:05 PM PIN STICKER Devin Dougherty MD LABORATORY [facility] [address] [address] * PRECAUTIONARY TUBE (11/04/2023 10:45 PM PIN STICKER) Pathologist [facility] Prec Tube Precautionary Blood Bank Specimen Received. [facility] Blood 11/04/2023 10:4 5 PM PIN STICKER 11/04/2023 10:52 PM PIN STICKER Devin Dougherty MD LAB TRANSFUSION SER VICES [facility] [address] [address] * (ABNORMAL) ANTI XA HEPARIN UNFRACTIONATED (11/04/2023 10:45 PM PIN STICKER) Anti XA Hep U <0.04(L) 0.30 - 0.70 IU/mL [facility] Blood 11/04/2023 10:4 5 PM PIN STICKER 11/04/2023 11:05 PM PIN STICKER Devin Dougherty MD LABORATORY Performing Organization Address [facility] Co de Phone Number [facility] [address] [address] * ED US CRITICAL CARE (11/04/2023 10:40 PM PIN STICKER) Anatomical Region Laterality Modality Ultrasound Narrative 11/04/2023 11:28 PM PIN STICKER ED Trauma eFAST Ultrasound Indications: Suspicion of [...] Advance Directives For more information, please contact: [phone] Latest Code Status on File Code Status [...] Code Status With Whom? Patient Care Teams Hand Pleater Relationship Specialty Start Date End Date Eloise Reeves DO [address] [place] [place] [address] PCP - General Family Medicine 11/06/23
--- OUTSIDE RECORDS SUMMARY | 2023-12-13 13:34 | XMS_ITS | Clinical Summary ---
Author Name Unknown Organization [employer] Address [address] [place] [phone] Phone Care Team Providers Care Import/Export Analyst Name Role Phone Jacklyn Reevesher Sushil BUSBY Primary Care Provider [phone] Source Comments Ateo is fully rolled out on indeni. Last update 04/02/09.[facility] Allergies Active Allergy Reactions Criticality Noted Date [...] Department Care Team Description 11/27/2023 1:00 PM PRESCRIPTION BENEFIT SPECIALIST [facility] [address] [place] [address] Leidy Velazquez, PAElodiaC Mild traumatic brain injury, with loss of consciousness of 30 minutes or less, initial encounter ([facility]) (Primary Dx); Reversed sleep wake cycle; [...] Department [place] Unknown, Provider 11/04/2023 10:39 PM PRESCRIPTION BENEFIT SPECIALIST - 11/16/2023 9:19 AM PRESCRIPTION BENEFIT SPECIALIST Hospital Encounter [facility] Surgery/Trauma/Kimmie ro [address] [place] [address] Devin Dougherty MD Petrun, Branden, MD [place], [...] Comments Blood Pressure 108/71 11/27/2023 12:54 PM PRESCRIPTION BENEFIT SPECIALIST Pulse 74 11/27/2023 12:54 PM PRESCRIPTION BENEFIT SPECIALIST Temperature 36.6 ??C (97.8 ??F) 11/16/2023 4:25 AM CS T Respiratory Rate 16 11/16/2023 4:25 AM PRESCRIPTION BENEFIT SPECIALIST Oxygen Saturation 90% 11/16/2023 4:25 AM PRESCRIPTION BENEFIT SPECIALIST Inhaled Oxygen Concentration - - Weight 61.6 kg (135 lb 12.8 oz) 024 12:54 PM PRESCRIPTION BENEFIT SPECIALIST Height 147.3 cm (4' 10) 11/05/2023 12: 03 AM PRESCRIPTION BENEFIT SPECIALIST Body Mass Index 28.38 11/05/2023 12:03 AM PRESCRIPTION BENEFIT SPECIALIST Plan of Treatment Health Maintenance Due Date [...] patient's age to complete this topic RSV Immunoglobulin Aged Out No longer eligible based on patient's age to complete this topic Procedures Procedure Name Priority Date/Time Associated Diagnosis Comments PANEL BASIC METABOLIC (BMP) Routine 11/16/2023 7:22 AM PRESCRIPTION BENEFIT SPECIALIST POC GLUCOSE Routine 11/16/2023 6:58 AM PRESCRIPTION BENEFIT SPECIALIST POC GLUCOSE Routine 11/15/2023 9:15 PM PRESCRIPTION BENEFIT SPECIALIST POC GLUCOSE Routine 11/15/2023 4:09 PM PRESCRIPTION BENEFIT SPECIALIST POC GLUCOSE Routine 11/15/2023 12:46 PM PRESCRIPTION BENEFIT SPECIALIST PANEL BASIC METABOLIC (BMP) Routine 11/15/2023 7:39 AM PRESCRIPTION BENEFIT SPECIALIST POC GLUCOSE Routine 11/15/2023 6:11 AM PRESCRIPTION BENEFIT SPECIALIST POC GLUCOSE Routine 11/14/2023 9:02 PM PRESCRIPTION BENEFIT SPECIALIST POC GLUCOSE Routine 11/14/2023 4:21 PM PRESCRIPTION BENEFIT SPECIALIST POC GLUCOSE Routine 11/14/2023 12:19 PM PRESCRIPTION BENEFIT SPECIALIST PANEL BASIC METABOLIC (BMP) Routine 11/14/2023 8:59 AM PRESCRIPTION BENEFIT SPECIALIST POC GLUCOSE Routine 11/14/2023 8:11 AM PRESCRIPTION BENEFIT SPECIALIST POC GLUCOSE Routine 11/13/2023 9:15 PM PRESCRIPTION BENEFIT SPECIALIST POC GLUCOSE Routine 11/13/2023 4:03 PM PRESCRIPTION BENEFIT SPECIALIST POC GLUCOSE Routine 11/13/2023 11:21 AM PRESCRIPTION BENEFIT SPECIALIST PANEL BASIC METABOLIC (BMP) Routine 11/13/2023 6:41 AM PRESCRIPTION BENEFIT SPECIALIST POC GLUCOSE Routine 11/13/2023 6:31 AM PRESCRIPTION BENEFIT SPECIALIST POC GLUCOSE Routine 11/12/2023 9:21 PM PRESCRIPTION BENEFIT SPECIALIST POC GLUCOSE Routine 11/12/2023 4:12 PM PRESCRIPTION BENEFIT SPECIALIST PANEL BASIC METABOLIC (BMP) Timed 11/12/2023 1:01 PM PRESCRIPTION BENEFIT SPECIALIST POC GLUCOSE Routine 11/12/2023 12:14 PM PRESCRIPTION BENEFIT SPECIALIST POC GLUCOSE Routine 11/12/2023 6:09 AM PRESCRIPTION BENEFIT SPECIALIST POC GLUCOSE Routine 11/11/2023 8:48 PM PRESCRIPTION BENEFIT SPECIALIST POC GLUCOSE Routine 11/11/2023 4:11 PM PRESCRIPTION BENEFIT SPECIALIST POC GLUCOSE Routine 11/11/2023 11:47 AM PRESCRIPTION BENEFIT SPECIALIST PHOSPHORUS Routine 11/11/2023 6:09 AM PRESCRIPTION BENEFIT SPECIALIST PANEL BASIC METABOLIC (BMP) Routine 11/11/2023 6:09 AM PRESCRIPTION BENEFIT SPECIALIST MAGNESIUM Routine 11/11/2023 6:09 AM PRESCRIPTION BENEFIT SPECIALIST TC LAB BLOOD DRAW BY VENIPUNCTURE Routine 11/11/2023 6:09 AM PRESCRIPTION BENEFIT SPECIALIST POC GLUCOSE Routine 11/10/2023 8:58 PM PRESCRIPTION BENEFIT SPECIALIST POC GLUCOSE Routine 11/10/2023 4:16 PM PRESCRIPTION BENEFIT SPECIALIST POC GLUCOSE Routine 11/10/2023 11:15 AM PRESCRIPTION BENEFIT SPECIALIST PHOSPHORUS Routine 11/10/2023 6:17 AM PRESCRIPTION BENEFIT SPECIALIST PANEL BASIC METABOLIC (BMP) Routine 11/10/2023 6:17 AM PRESCRIPTION BENEFIT SPECIALIST MAGNESIUM Routine 11/10/2023 6:17 AM PRESCRIPTION BENEFIT SPECIALIST PC LAB CBC/PLT Routine 11/10/2023 6:17 AM PRESCRIPTION BENEFIT SPECIALIST POC GLUCOSE Routine 11/09/2023 9:41 PM PRESCRIPTION BENEFIT SPECIALIST POC GLUCOSE Routine 11/09/2023 3:58 PM PRESCRIPTION BENEFIT SPECIALIST ANTI XA ASSAY LMW HEPARIN Timed 11/09/2023 2:18 PM PRESCRIPTION BENEFIT SPECIALIST POC GLUCOSE Routine 11/09/2023 11:28 AM PRESCRIPTION BENEFIT SPECIALIST XR FOOT RIGHT 3 V AP/OBL/LAT* Routine 11/09/2023 10:36 AM PRESCRIPTION BENEFIT SPECIALIST TELEMETRY STRIPS 11/09/2023 8:48 AM PRESCRIPTION BENEFIT SPECIALIST POC GLUCOSE Routine 11/09/2023 5:46 AM PRESCRIPTION BENEFIT SPECIALIST PC VALPROIC ACID LEVEL DEPAHOTE Routine 11/09/2023 5:41 AM PRESCRIPTION BENEFIT SPECIALIST PHOSPHORUS Routine 11/09/2023 5:41 AM PRESCRIPTION BENEFIT SPECIALIST PANEL BASIC METABOLIC (BMP) Routine 11/09/2023 5:41 AM PRESCRIPTION BENEFIT SPECIALIST MAGNESIUM Routine 11/09/2023 5:41 AM PRESCRIPTION BENEFIT SPECIALIST PC LAB CBC/PLT Routine 11/09/2023 5:41 AM PRESCRIPTION BENEFIT SPECIALIST TELEMETRY STRIPS 11/09/2023 1:21 AM PRESCRIPTION BENEFIT SPECIALIST POC GLUCOSE Routine 11/08/2023 8:40 PM PRESCRIPTION BENEFIT SPECIALIST TELEMETRY STRIPS 11/08/2023 7:31 PM PRESCRIPTION BENEFIT SPECIALIST PHOSPHORUS Routine 11/08/2023 4:20 PM PRESCRIPTION BENEFIT SPECIALIST MAGNESIUM Routine 11/08/2023 4:20 PM PRESCRIPTION BENEFIT SPECIALIST PANEL BASIC METABOLIC (BMP) Routine 11/08/2023 4:20 PM PRESCRIPTION BENEFIT SPECIALIST TC LAB BLOOD DRAW BY VENIPUNCTURE Routine 11/08/2023 4:20 PM PRESCRIPTION BENEFIT SPECIALIST POC GLUCOSE Routine 11/08/2023 3:56 PM PRESCRIPTION BENEFIT SPECIALIST POC GLUCOSE Routine 11/08/2023 11:03 AM PRESCRIPTION BENEFIT SPECIALIST TELEMETRY STRIPS 11/08/2023 9:49 AM PRESCRIPTION BENEFIT SPECIALIST XR CHEST 1 VIEW AP OR PA* Routine 11/08/2023 6:30 AM PRESCRIPTION BENEFIT SPECIALIST POC GLUCOSE Routine 11/08/2023 6:22 AM PRESCRIPTION BENEFIT SPECIALIST TELEMETRY STRIPS 11/08/2023 2:59 AM PRESCRIPTION BENEFIT SPECIALIST POC GLUCOSE Routine 11/07/2023 9:34 PM PRESCRIPTION BENEFIT SPECIALIST TELEMETRY STRIPS 11/07/2023 7:31 PM PRESCRIPTION BENEFIT SPECIALIST POC GLUCOSE Routine 11/07/2023 4:06 PM PRESCRIPTION BENEFIT SPECIALIST POC GLUCOSE Routine 11/07/2023 11:45 AM PRESCRIPTION BENEFIT SPECIALIST XR CHEST 2 VIEWS PA + LAT* Routine 11/07/2023 10:07 AM PRESCRIPTION BENEFIT SPECIALIST TELEMETRY STRIPS 11/07/2023 9:29 AM PRESCRIPTION BENEFIT SPECIALIST PC PROCALCITONIN (PCT) Routine 8:34 AM PRESCRIPTION BENEFIT SPECIALIST PC LAB CBC/PLT Routine 11/07/2023 8:34 AM PRESCRIPTION BENEFIT SPECIALIST PANEL BASIC METABOLIC (BMP) Routine 11/07/2023 8:34 AM PRESCRIPTION BENEFIT SPECIALIST MAGNESIUM Routine 11/07/2023 8:34 AM PRESCRIPTION BENEFIT SPECIALIST PHOSPHORUS Routine 11/07/2023 8:34 AM PRESCRIPTION BENEFIT SPECIALIST POC GLUCOSE Routine 11/07/2023 5:45 AM PRESCRIPTION BENEFIT SPECIALIST TELEMETRY STRIPS 11/07/2023 1:07 AM PRESCRIPTION BENEFIT SPECIALIST POC GLUCOSE Routine 11/06/2023 9:21 PM PRESCRIPTION BENEFIT SPECIALIST TELEMETRY STRIPS 11/06/2023 4:28 PM PRESCRIPTION BENEFIT SPECIALIST PC GASES,BLOOD,ANY COMB OF PH,PCD2,PO2,CO2,HCO2 Routine 11/06/2023 1:06 PM PRESCRIPTION BENEFIT SPECIALIST MAGNESIUM Timed 11/06/2023 1:06 PM PRESCRIPTION BENEFIT SPECIALIST PHOSPHORUS Timed 11/06/2023 1:06 PM PRESCRIPTION BENEFIT SPECIALIST PANEL BASIC METABOLIC (BMP) Timed 11/06/2023 1:06 PM PRESCRIPTION BENEFIT SPECIALIST PC LAB CBC/PLT Timed 11/06/2023 1:06 PM PRESCRIPTION BENEFIT SPECIALIST POC GLUCOSE Routine 11/06/2023 1:04 PM PRESCRIPTION BENEFIT SPECIALIST POC GLUCOSE Routine 11/06/2023 10:49 AM PRESCRIPTION BENEFIT SPECIALIST TELEMETRY STRIPS 11/06/2023 8:49 AM PRESCRIPTION BENEFIT SPECIALIST PC LAB GLYCOSYLATED HGB Routine 11/06/2023 6:31 AM PRESCRIPTION BENEFIT SPECIALIST PROTHROMBIN (PT) & INR Timed 6:31 AM PRESCRIPTION BENEFIT SPECIALIST PC PHOSPHORUS INORGANIC(PHOSPHATE) Routine 11/06/2023 6:31 AM PRESCRIPTION BENEFIT SPECIALIST PC MAGNESIUM, SERUM Routine 11/06/2023 6 :31 AM PRESCRIPTION BENEFIT SPECIALIST PC LAB CBC/PLT Routine 11/06/2023 6:31 AM PRESCRIPTION BENEFIT SPECIALIST TC LAB BLOOD DRAW BY VENIPUNCTURE Routine 11/06/2023 6:31 AM PRESCRIPTION BENEFIT SPECIALIST POC GLUCOSE Routine 11/06/2023 5:39 AM PRESCRIPTION BENEFIT SPECIALIST TELEMETRY STRIPS 11/06/2023 1:52 AM PRESCRIPTION BENEFIT SPECIALIST POC GLUCOSE Routine 11/05/2023 4:54 PM PRESCRIPTION BENEFIT SPECIALIST MAGNESIUM Routine 11/05/2023 4:48 PM PRESCRIPTION BENEFIT SPECIALIST POTASSIUM Routine 11/05/2023 4:48 PM PRESCRIPTION BENEFIT SPECIALIST CT HEAD NO IV CONTRAST Timed 11:44 AM PRESCRIPTION BENEFIT SPECIALIST POC GLUCOSE Routine 11/05/2023 11:11 AM PRESCRIPTION BENEFIT SPECIALIST TELEMETRY STRIPS 11/05/2023 9:25 AM PRESCRIPTION BENEFIT SPECIALIST EKG ADULT (12-LEAD) Routine 11/05/2023 6 :38 AM PRESCRIPTION BENEFIT SPECIALIST POC GLUCOSE Routine 11/05/2023 6:07 AM PRESCRIPTION BENEFIT SPECIALIST CT HEAD NO IV CONTRAST Timed 4:54 AM PRESCRIPTION BENEFIT SPECIALIST PROTHROMBIN (PT) & INR Timed 4:27 AM PRESCRIPTION BENEFIT SPECIALIST PC PHOSPHORUS INORGANIC(PHOSPHATE) Routine 11/05/2023 4:27 AM PRESCRIPTION BENEFIT SPECIALIST PC MAGNESIUM, SERUM Routine 11/05/2023 4 :27 AM PRESCRIPTION BENEFIT SPECIALIST PC GASES,BLOOD,ANY COMB OF PH,PCD2,PO2,CO2,HCO2 Routine 11/05/2023 4:27 AM PRESCRIPTION BENEFIT SPECIALIST PC LAB CBC/PLT Routine 11/05/2023 4:27 AM PRESCRIPTION BENEFIT SPECIALIST TC LAB BLOOD DRAW BY VENIPUNCTURE Routine 11/05/2023 4:27 AM PRESCRIPTION BENEFIT SPECIALIST PC TROPONIN QUANTITATIVE Timed 11/05/2023 4:27 AM PRESCRIPTION BENEFIT SPECIALIST PC TROPONIN QUANTITATIVE Timed 11/05/2023 2:58 AM PRESCRIPTION BENEFIT SPECIALIST CK, TOTAL STAT 11/05/2023 1:32 AM PRESCRIPTION BENEFIT SPECIALIST FIBRINOGEN STAT 11/05/2023 1:32 AM PRESCRIPTION BENEFIT SPECIALIST PC LAB PTT STAT 11/05/2023 1:32 AM PRESCRIPTION BENEFIT SPECIALIST PANEL HEPATIC FUNCTION STAT 1:32 AM PRESCRIPTION BENEFIT SPECIALIST PC LAB CBC/PLT STAT 11/05/2023 1:32 AM PRESCRIPTION BENEFIT SPECIALIST PANEL BASIC METABOLIC (BMP) STAT 11/05/2023 1:32 AM PRESCRIPTION BENEFIT SPECIALIST MAGNESIUM STAT 11/05/2023 1:32 AM PRESCRIPTION BENEFIT SPECIALIST PHOSPHORUS STAT 11/05/2023 1:32 AM PRESCRIPTION BENEFIT SPECIALIST PROTHROMBIN (PT) & INR STAT 1:32 AM PRESCRIPTION BENEFIT SPECIALIST PC IONIZED,CALCIUM STAT 11/05/2023 1: 18 AM PRESCRIPTION BENEFIT SPECIALIST PC LACTATE (LACTIC ACID) STAT 11/05/2023 1:18 AM PRESCRIPTION BENEFIT SPECIALIST PC GASES,BLOOD,ANY COMB OF PH,PCD2,PO2,CO2,HCO2 STAT 11/05/2023 1:18 AM PRESCRIPTION BENEFIT SPECIALIST PC TROPONIN QUANTITATIVE Timed 11/05/2023 1:18 AM PRESCRIPTION BENEFIT SPECIALIST CT HEAD-NECK - ANGIO - W/IV CON STAT 11/05/2023 12:09 AM PRESCRIPTION BENEFIT SPECIALIST PC LAB COMPLETE UA STAT 11/04/2023 11 :55 PM PRESCRIPTION BENEFIT SPECIALIST PF INSERT CATH,ART,PERCUT,SANTA ERM Routine 11/04/2023 11:43 PM PRESCRIPTION BENEFIT SPECIALIST ED EKG (12-LEAD) Routine 11/04/2023 11:2 5 [address] PRESCRIPTION BENEFIT SPECIALIST [address] SPINE LUMBAR NO IV CON STAT 11/04/2023 11:05 PM PRESCRIPTION BENEFIT SPECIALIST CT SPINE THORACIC NO IV CON STAT 11/04/2023 11:05 PM PRESCRIPTION BENEFIT SPECIALIST CT CHEST/ABD/PELVIS W/IV CONT STAT 11/04/2023 11:05 PM PRESCRIPTION BENEFIT SPECIALIST CT SPINE CERVICAL NO IV CON STAT 11/04/2023 11:05 PM PRESCRIPTION BENEFIT SPECIALIST CT HEAD NO IV CONTRAST STAT 11:05 PM PRESCRIPTION BENEFIT SPECIALIST XR CHEST 1 VIEW AP OR PA* STAT 11/04/2023 10:57 PM PRESCRIPTION BENEFIT SPECIALIST TC LAB ER STAT TOTAL HGB STAT 11/04/2023 10:48 PM PRESCRIPTION BENEFIT SPECIALIST PC ELECTROLYTES PANEL STAT 11/04/2023 10:48 PM PRESCRIPTION BENEFIT SPECIALIST PC HEPARIN ASSAY STAT 11/04/2023 10:4 5 PM PRESCRIPTION BENEFIT SPECIALIST EXTRA TUBE - SST Routine 11/04/2023 10:4 5 PM PRESCRIPTION BENEFIT SPECIALIST TC LAB BLOOD DRAW BY VENIPUNCTURE Routine 11/04/2023 10:45 PM PRESCRIPTION BENEFIT SPECIALIST PC TROPONIN QUANTITATIVE STAT 11/04/2023 10:45 PM PRESCRIPTION BENEFIT SPECIALIST PC LAB PTT STAT 11/04/2023 10:45 PM PRESCRIPTION BENEFIT SPECIALIST PC LAB ED INR STAT 11/04/2023 10:45 PM PRESCRIPTION BENEFIT SPECIALIST PRECAUTIONARY TUBE STAT 11/04/2023 10 :45 PM PRESCRIPTION BENEFIT SPECIALIST PC LACTATE (LACTIC ACID) STAT 11/04/2023 10:45 PM PRESCRIPTION BENEFIT SPECIALIST FIBRINOGEN STAT 11/04/2023 10:45 PM PRESCRIPTION BENEFIT SPECIALIST PC LAB CBC W/DIFF & PLT STAT 11/04/2023 10:45 PM PRESCRIPTION BENEFIT SPECIALIST PC GASES,BLOOD,ANY COMB OF PH,PCD2,PO2,CO2,HCO2 STAT 11/04/2023 10:45 PM PRESCRIPTION BENEFIT SPECIALIST ED US CRITICAL CARE STAT 11/04/2023 1 0:40 PM PRESCRIPTION BENEFIT SPECIALIST PANEL LIPID Routine 10/10/2021 11:08 AM PRESCRIPTION BENEFIT SPECIALIST from Last 3 Months or Most Recently Relevant to Health Maintenance Results * (ABNORMAL) PANEL BASIC METABOLIC (BMP) (11/16/2023 7:22 AM PRESCRIPTION BENEFIT SPECIALIST) Only the most recent of12 resultswithin the [...] area of 1.73m^2. Blood 11/16/2023 7:22 AM PRESCRIPTION BENEFIT SPECIALIST 11/16/2023 7:43 AM PRESCRIPTION BENEFIT SPECIALIST Jesusita Aiken STAIN SPRAYER, FACILITY REHAB DIRECTOR LABORATO RY Performing Organization Address [facility] [place] [phone] * POC GLUCOSE (11/16/2023 6:58 AM PRESCRIPTION BENEFIT SPECIALIST) Only the most recent of42 resultswithin the time period is included. POC Glucose 84 70 - 100 mg/dL [facility] - POINT OF CARE Blood 11/16/2023 6:58 AM PRESCRIPTION BENEFIT SPECIALIST Devin Dougherty MD LABORATORY Performing Organization Address [facility] de Phone Number [facility] - POINT OF CARE [address] [place] [address], * PHOSPHORUS (11/11/2023 6:09 AM PRESCRIPTION BENEFIT SPECIALIST) Only the most recent of7 resultswithin the time period is included. Phosphorus 3.5 2.5 - 4.5 mg/dL [facility] Blood 11/11/2023 6:09 AM PRESCRIPTION BENEFIT SPECIALIST 11/11/2023 6:36 AM PRESCRIPTION BENEFIT SPECIALIST Quinn Covarrubias MD LABORATORY Performing Organization Address [facility] Co de Phone Number [address] [address] * MAGNESIUM (11/11/2023 6:09 AM PRESCRIPTION BENEFIT SPECIALIST) Only the most recent of8 resultswithin the time period is included. Magnesium 2.2 1.6 - 2.4 mg/dL [facility] Blood 11/11/2023 6:09 AM PRESCRIPTION BENEFIT SPECIALIST 11/11/2023 6:36 AM PRESCRIPTION BENEFIT SPECIALIST Quinn Covarrubias MD LABORATORY Performing Organization Address [facility]/ZIP Co de Phone Number [facility] [address] [address] * (ABNORMAL) CBC WITH PLATELET (11/11/2023 6:09 AM PRESCRIPTION BENEFIT SPECIALIST) Only the most recent of7 resultswithin the time period is included. Pathologist [facility] WBC 5.60 4.00 - 10.00 k/cmm [...] [facility] Blood 11/11/2023 6:09 AM PRESCRIPTION BENEFIT SPECIALIST 11/11/2023 6:36 AM PRESCRIPTION BENEFIT SPECIALIST Quinn Covarrubias MD LABORATORY Performing Organization Address [facility] Co de Phone Number [facility] [address] [phone] * ANTI XA ASSAY LMW HEPARIN (11/09/2023 2:18 PM PRESCRIPTION BENEFIT SPECIALIST) Pathologist [facility] Anti XA LMW 0.32 IU/mL [facility] Comment: Anti Xa Assay LMW Heparin Therapeutic Ranges: 0.4-1.1 IU/mL for twice daily 1.0-2.0 IU/mL for once daily Blood 11/09/2023 2:18 PM PRESCRIPTION BENEFIT SPECIALIST 11/09/2023 2:29 PM PRESCRIPTION BENEFIT SPECIALIST Quinn Covarrubias MD LABORATORY Performing Organization Address City/[facility]/ZIP Co de Phone Number [facility] [address] [phone] * XR FOOT RIGHT 3 V AP/OBL/LAT* (11/09/2023 10:36 AM PRESCRIPTION BENEFIT SPECIALIST) Anatomical Region Laterality Modality Foot Computed Radiogr aphy 11/09/2023 10:4 7 AM PRESCRIPTION BENEFIT SPECIALIST Impressions 11/09/2023 10:50 AM PRESCRIPTION BENEFIT SPECIALIST Impression: No acute osseous abnormality. Generalized osteopenia. Reading Radiologist: Angela Camp Narrative 11/09/2023 10:50 AM PRESCRIPTION BENEFIT SPECIALIST Technique: XR FOOT RIGHT 3 V AP/OBL/LAT* [...] Reading Radiologist: Angela Camp Jesusita Aiken APRN, FACILITY REHAB DIRECTOR RAD XRAY * TELEMETRY STRIPS (11/09/2023 8:48 AM PRESCRIPTION BENEFIT SPECIALIST) Only the most recent of12 resultswithin the time period is included. Narrative 11/09/2023 8:48 AM PRESCRIPTION BENEFIT SPECIALIST Ordered by an unspecified provider. Provider Unknown RAD ECHO * (ABNORMAL) VALPROATE (DEPAKOTE) LEVEL (11/09/2023 5:41 AM PRESCRIPTION BENEFIT SPECIALIST) Valproate 31.8(L) 50.0 - 100.0 mcg/mL [facility] Blood 11/09/2023 5:41 AM PRESCRIPTION BENEFIT SPECIALIST 11/09/2023 8:19 AM PRESCRIPTION BENEFIT SPECIALIST Quinn Covarrubias MD LABORATORY [facility] [address] [address] * XR CHEST 1 VIEW AP OR PA* (11/08/2023 6:30 AM PRESCRIPTION BENEFIT SPECIALIST) Only the most recent of2 resultswithin the time period is included. Anatomical Region Laterality Modality Chest Computed Radiogr aphy 11/08/2023 6:56 AM PRESCRIPTION BENEFIT SPECIALIST Impressions 11/08/2023 7:24 AM PRESCRIPTION BENEFIT SPECIALIST Impression: Stable chest. I have personally reviewed the image(s) and initial interpretation, and I agree with the findings as documented by the resident/fellow. Reading Radiologist: Ronal Hidalgo Reading Resident: Laith Berkowitz Narrative 11/08/2023 7:24 AM PRESCRIPTION BENEFIT SPECIALIST Technique: XR CHEST 1 VIEW AP OR [...] VIEWS PA + LAT* (11/07/2023 10:07 AM PRESCRIPTION BENEFIT SPECIALIST) Anatomical Region Laterality Modality Chest Computed Radiogr aphy 11/07/2023 10:0 9 AM PRESCRIPTION BENEFIT SPECIALIST Impressions 11/07/2023 10:10 AM PRESCRIPTION BENEFIT SPECIALIST Impression: New left basilar opacities with small effusion concerning for developing infection. Reading Radiologist: Phil Contreras Narrative 11/07/2023 10:10 AM PRESCRIPTION BENEFIT SPECIALIST Technique: XR CHEST 2 VIEWS PA + [...] RAD XRAY * PROCALCITONIN (11/07/2023 8:34 AM PRESCRIPTION BENEFIT SPECIALIST) Procalcitonin 0.12 ng/mL [facility] Comment: Results <0.50 ng/mL represent a low risk of severe sepsis and/or septic shock. Results >2.0 ng/mL represent a high risk of severe sepsis and/or septic shock. Blood 11/07/2023 8:34 AM PRESCRIPTION BENEFIT SPECIALIST 11/07/2023 8:40 AM PRESCRIPTION BENEFIT SPECIALIST Quinn Covarrubias MD LABORATORY [facility] [address] [place] [phone] * (ABNORMAL) BLOOD GASES (11/06/2023 1:06 PM PRESCRIPTION BENEFIT SPECIALIST) Only the most recent of3 resultswithin the [...] ASSOCI[facility] LAB Blood Venous 11/06/2023 1:06 PM PRESCRIPTION BENEFIT SPECIALIST 11/06/2023 1:10 PM PRESCRIPTION BENEFIT SPECIALIST Narrative [facility] - 11/06/2023 1:16 PM PRESCRIPTION BENEFIT SPECIALIST Draw on Room Air: No O2 LPM (liter/min) Level->4 via mask FiO2 Level: 100 Quinn Covarrubias MD LABORATORY Performing Organization Address [facility] Co de Phone Number [facility] [address] [address] * (ABNORMAL) ICU MAGNESIUM (11/06/2023 6:31 AM PRESCRIPTION BENEFIT SPECIALIST) Only the most recent of2 resultswithin the time period is included. Magnesium 2.5(H) 1.6 - 2.4 mg/dL [facility] Blood 11/06/2023 6:31 AM PRESCRIPTION BENEFIT SPECIALIST 11/06/2023 7:37 AM PRESCRIPTION BENEFIT SPECIALIST Devin Dougherty MD LABORATORY Performing Organization Address [facility] Co de Phone Number [facility] [address] [address] * ICU PHOSPHORUS (11/06/2023 6:31 AM PRESCRIPTION BENEFIT SPECIALIST) Only the most recent of2 resultswithin the time period is included. Phosphorus 4.1 2.5 - 4.5 mg/dL [facility] Blood 11/06/2023 6:31 AM PRESCRIPTION BENEFIT SPECIALIST 11/06/2023 7:37 AM PRESCRIPTION BENEFIT SPECIALIST Devin Dougherty MD LABORATORY Performing Organization Address [facility] Co de Phone Number [facility] [address] [address] * (ABNORMAL) ICU CBC WITH PLATELET (11/06/2023 6:31 AM PRESCRIPTION BENEFIT SPECIALIST) Only the most recent of2 resultswithin the [...] [facility] Blood 11/06/2023 6:31 AM PRESCRIPTION BENEFIT SPECIALIST 11/06/2023 7:37 AM PRESCRIPTION BENEFIT SPECIALIST Devin Dougherty MD LABORATORY Performing Organization Address [facility] Co de Phone Number [facility] [address] [phone] * (ABNORMAL) ICU PANEL BASIC METABOLIC (BMP) (11/06/2023 6:31 AM PRESCRIPTION BENEFIT SPECIALIST) Only the most recent of2 resultswithin the [...] area of 1.73m^2. Blood 11/06/2023 6:31 AM PRESCRIPTION BENEFIT SPECIALIST 11/06/2023 7:37 AM PRESCRIPTION BENEFIT SPECIALIST Dvein Dougherty MD LABORATORY Performing Organization Address [facility] Co de Phone Number [facility] [address] [address] * PROTHROMBIN (PT) & INR (11/06/2023 6:31 AM PRESCRIPTION BENEFIT SPECIALIST) Only the most recent of3 resultswithin the time period is included. PT 11.4 9.0 - 12.5 sec [facility] INR 1.0 0.8 - 1.1 [facility] Comment: Warfarin Therapeutic Range: Standard Intensity: 2.0 - 3.0 High Intensity: 2.5 - 3.5 Blood 11/06/2023 6:31 AM PRESCRIPTION BENEFIT SPECIALIST 11/06/2023 7:37 AM PRESCRIPTION BENEFIT SPECIALIST Quinn Covarrubisa MD LABORATORY Performing Organization Address [facility] Co de Phone Number [facility] [address] [address] * (ABNORMAL) GLYCOSYLATED HGB - A1C (11/06/2023 6:31 AM PRESCRIPTION BENEFIT SPECIALIST) Hemoglobin A1C 8.1(H) 4.0 - 5.6 % [...] a fasting glucose. Blood 11/06/2023 6:31 AM PRESCRIPTION BENEFIT SPECIALIST 11/06/2023 11:28 AM PRESCRIPTION BENEFIT SPECIALIST Quinn Covarrubias MD LABORATORY Performing Organization Address [facility] Co de Phone Number [facility] [address] [address] * (ABNORMAL) POTASSIUM (11/05/2023 4:48 PM PRESCRIPTION BENEFIT SPECIALIST) Potassium 3.2(L) 3.5 - 5.3 mEq/L [facility] Blood 11/05/2023 4:48 PM PRESCRIPTION BENEFIT SPECIALIST 11/05/2023 4:58 PM PRESCRIPTION BENEFIT SPECIALIST Quinn Covarrubias MD LABORATORY [facility] [address] [address] * CT HEAD NO IV CONTRAST (11/05/2023 11:44 AM PRESCRIPTION BENEFIT SPECIALIST) Only the most recent of3 resultswithin the time period is included. Anatomical Region Laterality Modality Skull Computed Tomogra phy 11/05/2023 12:1 6 PM PRESCRIPTION BENEFIT SPECIALIST Impressions 11/05/2023 12:38 PM PRESCRIPTION BENEFIT SPECIALIST Impression: Stable head CT as compared to the study performed 7 hours earlier. Intra-axial and extra-axial hemorrhage(s) without midline shift or hydrocephalus. The basal cisterns are patent. Reading Radiologist: Ford Fernández Narrative 11/05/2023 12:38 PM PRESCRIPTION BENEFIT SPECIALIST Exam: Head CT without contrast, 11/05/2023 Indication: [...] * EKG ADULT (12-LEAD) (11/05/2023 6:38 AM PRESCRIPTION BENEFIT SPECIALIST) 11/05/2023 6:38 AM PRESCRIPTION BENEFIT SPECIALIST Impressions [facility] CVIS EKG ORDERS - 11/05/2023 6:38 AM PRESCRIPTION BENEFIT SPECIALIST SINUS RHYTHM RIGHT BUNDLE BRANCH BLOCK ??[120+ ms QRS DURATION, UPRIGHT V1, 40+ ms S IN I/aVL/V4/V5/V6] ABNORMAL ECG P-R Interval 151 ms QRS Interval 128 ms QT Interval 420 ms QTC Interval 462 ms P Weippe 9 QRS Weippe 27 T Wave Weippe 70 Narrative Procedure Note Lauren Mills MD - 11/06/2023 IMPRESSION SINUS RHYTHM RIGHT BUNDLE BRANCH BLOCK [120+ ms QRS DURATION, UPRIGHT V1, 40+ ms S INI/aVL/V4/V5/V6] ABNORMAL ECG P-R Interval 151 ms QRS Interval 128 ms QT Interval 420 ms QTC Interval 462 ms P Weippe 9 QRS Weippe 27 T Wave Weippe 70 Quinn Covarrubias MD EKG Performing Organization Address [facility] Co de Phone Number [facility] CVIS EKG ORDERS * (ABNORMAL) ICU BLOOD GAS (11/05/2023 4:27 AM PRESCRIPTION BENEFIT SPECIALIST) PH Art 7.38 7.35 - 7.45 [facility] [...] LAB Blood Arterial 11/05/2023 4: 27 AM PRESCRIPTION BENEFIT SPECIALIST 11/05/2023 4:34 AM PRESCRIPTION BENEFIT SPECIALIST Devin Dougherty MD LABORATORY Performing Organization Address [facility] Co de Phone Number [facility] [address] [address] * (ABNORMAL) TROP 6H (11/05/2023 4:27 AM PRESCRIPTION BENEFIT SPECIALIST) 6H Trop 51(H) <=14 ng/L [facility] 6H Delta Significan t(A) Not Significant [facility] Blood 11/05/2023 4:27 AM PRESCRIPTION BENEFIT SPECIALIST 11/05/2023 4:35 AM PRESCRIPTION BENEFIT SPECIALIST Devin Dougherty MD LABORATORY Performing Organization Address [facility] Co de Phone Number [facility] [address] [address] * (ABNORMAL) TROP 4H (11/05/2023 2:58 AM PRESCRIPTION BENEFIT SPECIALIST) 4H Trop 39(H) <=14 ng/L [facility] 4H Delta Significan t(A) Not Significant [facility] Blood 11/05/2023 2:58 AM PRESCRIPTION BENEFIT SPECIALIST 11/05/2023 3:48 AM PRESCRIPTION BENEFIT SPECIALIST Devin Dougherty MD LABORATORY Performing Organization Address [facility] Co de Phone Number [facility] [address] [address] * (ABNORMAL) PANEL HEPATIC FUNCTION (11/05/2023 1:32 AM PRESCRIPTION BENEFIT SPECIALIST) Pathologist [facility] Alk Phos 111(H) 35 - 104 IU/L [...] due to lipemia. Blood 11/05/2023 1:32 AM PRESCRIPTION BENEFIT SPECIALIST 11/05/2023 1:32 AM PRESCRIPTION BENEFIT SPECIALIST Devin Dougherty MD LABORATORY Performing Organization Address [facility] Co de Phone Number [facility] [address] [address] * FIBRINOGEN (11/05/2023 1:32 AM PRESCRIPTION BENEFIT SPECIALIST) Only the most recent of2 resultswithin the time period is included. Fibrinogen 262 200 - 400 mg/dL [facility] Blood 11/05/2023 1:32 AM PRESCRIPTION BENEFIT SPECIALIST 11/05/2023 1:32 AM PRESCRIPTION BENEFIT SPECIALIST Devin Dougherty MD LABORATORY [facility] [address] [address] * CK, TOTAL (11/05/2023 1:32 AM PRESCRIPTION BENEFIT SPECIALIST) CK 56 26 - 192 IU/L [facility] Blood 11/05/2023 1:32 AM PRESCRIPTION BENEFIT SPECIALIST 11/05/2023 1:32 AM PRESCRIPTION BENEFIT SPECIALIST Devin Dougherty MD LABORATORY Performing Organization Address City/[facility]/ZIP Co de Phone Number [facility] [address] [address] * PTT (APTT) (11/05/2023 1:32 AM PRESCRIPTION BENEFIT SPECIALIST) Only the most recent of2 resultswithin the time period is included. APTT 26.0 25.0 - 37.0 sec [facility] Blood 11/05/2023 1:32 AM PRESCRIPTION BENEFIT SPECIALIST 11/05/2023 1:32 AM PRESCRIPTION BENEFIT SPECIALIST Devin Dougherty MD LABORATORY Performing Organization Address [facility] Co de Phone Number [address] [address] * (ABNORMAL) TROP 2H (11/05/2023 1:18 AM PRESCRIPTION BENEFIT SPECIALIST) 2H Trop 18(H) <=14 ng/L [facility] 2H Delta Indeterminate Not Significant [facility] Blood 11/05/2023 1:18 AM PRESCRIPTION BENEFIT SPECIALIST 11/05/2023 1:45 AM PRESCRIPTION BENEFIT SPECIALIST Devin Dougherty MD LABORATORY Performing Organization Address City/[facility]/ZIP Co de Phone Number [facility] [address] [address] * LACTATE (LACTIC ACID) (11/05/2023 1:18 AM PRESCRIPTION BENEFIT SPECIALIST) Only the most recent of2 resultswithin the time period is included. Lactate 1.9 0.7 - 2.1 mmol/L [facility] Blood 11/05/2023 1:18 AM PRESCRIPTION BENEFIT SPECIALIST 11/05/2023 1:27 AM PRESCRIPTION BENEFIT SPECIALIST Narrative [facility] - 11/05/2023 1:45 AM PRESCRIPTION BENEFIT SPECIALIST Send specimen on ice! Devin Dougherty MD LABORATORY Performing Organization Address [facility] Co de Phone Number [address] [address] * CALCIUM,IONIZED (11/05/2023 1:18 AM PRESCRIPTION BENEFIT SPECIALIST) PH 7.37 7.32 - 7.42 [facility] ICA, Actual 4.82 4.40 - 5.20 mg/dL [facility] ICA, pH Corrected 4.75 4.40 - 5.20 mg/dL [facility] Blood 11/05/2023 1:18 AM PRESCRIPTION BENEFIT SPECIALIST 11/05/2023 1:27 AM PRESCRIPTION BENEFIT SPECIALIST Narrative [facility] - 11/05/2023 1:44 AM PRESCRIPTION BENEFIT SPECIALIST Send specimen on ice! Devin Dougherty MD LABORATORY Performing Organization Address [facility] de Phone Number [address] [address] * CT HEAD-NECK - ANGIO - W/IV CON (11/05/2023 12:09 AM PRESCRIPTION BENEFIT SPECIALIST) Anatomical Region Laterality Modality Skull Computed Tomogra phy 11/05/2023 12:2 1 AM PRESCRIPTION BENEFIT SPECIALIST Impressions 11/05/2023 10:22 AM PRESCRIPTION BENEFIT SPECIALIST Impression: ?? Slightly increased size of the [...] Fernández Reading Resident: Laith Berkowitz Narrative 11/05/2023 10:22 AM PRESCRIPTION BENEFIT SPECIALIST CT angiogram of the Head with contrast, [...] and reviewed by the Radiologist using the [employer] workstation, and these images were archived in [...] multifocal subarachnoid hemorrhages. Procedure Note Ford Fernández DO - 11/05/2023 CT angiogram of the [...] and reviewed by the Radiologist using the [employer] workstation,and these images were archived in the [...] NEURO * (ABNORMAL) URINALYSIS,TOTAL (11/04/2023 11:55 PM PRESCRIPTION BENEFIT SPECIALIST) Color COLORLESS YELLOW [facility] Appearance CLEAR CLEAR [facility] Urine Glucose 100(A) NEGATIVE mg/dL [facility] Bili UA NEGATIVE NEGATIVE [facility] Ketones NEGATIVE NEGATIVE [facility] Specific University 1.036(A) 1.003 - 1.030 [facility] [...] [facility] Urinalysis Performed at: [facility] Urine 11/04/2023 11:5 5 PM PRESCRIPTION BENEFIT SPECIALIST 11/05/2023 12:03 AM PRESCRIPTION BENEFIT SPECIALIST Devin Dougherty MD LABORATORY [facility] [address] [address] * PF INSERT CATH,ART,PERCUT,SHORTTERM (11/04/2023 11:43 PM PRESCRIPTION BENEFIT SPECIALIST) Narrative Rito Graf MD - 11/04/2023 11:43 PM PRESCRIPTION BENEFIT SPECIALIST Priscilla Holcomb MD ? 11/04/2023 11:44 PM Arterial Line Performed by: rPiscilla Holcomb MD Authorized by: Rito Graf MD ?? Consent: ??Consent obtained: ??Verbal ??Consent given by: ??Patient ??Risks discussed: ??Pain, bleeding and infection [place] protocol: ??Patient identity confirmed: ??Verbally with patient, [...] * ED EKG (12-LEAD) (11/04/2023 11:25 PM PRESCRIPTION BENEFIT SPECIALIST) 11/04/2023 11:2 5 PM PRESCRIPTION BENEFIT SPECIALIST Impressions [facility] CVIS EKG ORDERS - 11/04/2023 11:25 PM PRESCRIPTION BENEFIT SPECIALIST SINUS TACHYCARDIA RIGHT BUNDLE BRANCH BLOCK ??[120+ ms QRS DURATION, UPRIGHT V1, 40+ ms S IN I/aVL/V4/V5/V6] ABNORMAL ECG P-R Interval 173 ms QRS Interval 127 ms QT Interval 395 ms QTC Interval 458 ms P Weippe 57 QRS Weippe 34 T Wave Weippe 43 Narrative Procedure Note Vineet Díaz MD - 11/05/2023 IMPRESSION SINUS TACHYCARDIA RIGHT BUNDLE BRANCH BLOCK [120+ ms QRS DURATION, UPRIGHT V1, 40+ ms S INI/aVL/V4/V5/V6] ABNORMAL ECG P-R Interval 173 ms QRS Interval 127 ms QT Interval 395 ms QTC Interval 458 ms P Weippe 57 QRS Weippe 34 T Wave Weippe 43 Devin Dougherty MD EKG [facility] CVIS EKG ORDERS * CT SPINE THORACIC NO IV CON (11/04/2023 11:05 PM PRESCRIPTION BENEFIT SPECIALIST) Anatomical Region Laterality Modality Thoracic Spine Computed Tomogra phy 11/04/2023 11:2 3 PM PRESCRIPTION BENEFIT SPECIALIST Impressions 11/05/2023 9:22 AM PRESCRIPTION BENEFIT SPECIALIST Impression: 1. No suspected acute fracture or dislocation of the thoracic or lumbar spine. ?? 2. Crii-rd-wftwitgh lumbar spondylosis without suspected high-grade spinal canal or neural foraminal narrowing. I have personally reviewed the image(s) and initial interpretation, and I agree with the findings as documented by the resident/fellow. Reading Radiologist: Ford Fernández Reading Resident: Laith Berkowitz 11/05/2023 9:22 AM PRESCRIPTION BENEFIT SPECIALIST Exam: Thoracic and Lumbar Spine CT Reconstructions, [...] dislocation of the thoracic or lumbarspine. 2. Hiwx-yj-vytzbzby lumbar spondylosis without suspected high-grade spinalcanal or neural foraminal narrowing. I have personally reviewed the image(s) and initial interpretation, and Iagree with the findings as documented by the resident/fellow. Reading Radiologist: Ford Fernández Resident: Laith Berkowitz Devin Dougherty MD RAD CT NEURO * CT SPINE LUMBAR NO IV CON (11/04/2023 11:05 PM PRESCRIPTION BENEFIT SPECIALIST) Anatomical Region Laterality Modality Lumbar Spine Computed Tomogra phy 11/04/2023 11:2 3 PM PRESCRIPTION BENEFIT SPECIALIST Impressions 11/05/2023 9:22 AM PRESCRIPTION BENEFIT SPECIALIST Impression: 1. No suspected acute fracture or dislocation of the thoracic or lumbar spine. ?? 2. Kfwi-dz-jdotzhln lumbar spondylosis without suspected high-grade spinal canal or neural foraminal narrowing. I have personally reviewed the image(s) and initial interpretation, and I agree with the findings as documented by the resident/fellow. Reading Radiologist: Ford Fernández Resident: Laith Berkowitz Narrative 11/05/2023 9:22 AM PRESCRIPTION BENEFIT SPECIALIST Exam: Thoracic and Lumbar Spine CT Reconstructions, [...] dislocation of the thoracic or lumbarspine. 2. Tbzq-nj-jrdtvftu lumbar spondylosis without suspected high-grade spinalcanal or neural foraminal narrowing. I have personally reviewed the image(s) and initial interpretation, and Iagree with the findings as documented by the resident/fellow. Reading Radiologist: Ford Fernández Resident: Laith Berkowitz Devin Dougherty MD RAD CT NEURO * CT SPINE CERVICAL NO IV CON (11/04/2023 11:05 PM PRESCRIPTION BENEFIT SPECIALIST) Anatomical Region Laterality Modality Cervical Spine Computed Tomogra phy 11/04/2023 11:2 0 PM PRESCRIPTION BENEFIT SPECIALIST Impressions 11/05/2023 8:27 AM PRESCRIPTION BENEFIT SPECIALIST Impression: ?? 1. No acute fracture or traumatic subluxation of the cervical vertebrae. 2. Mild degenerative changes of the cervical spine without high-grade spinal canal or neural foraminal narrowing. I have personally reviewed the image(s) and initial interpretation, and I agree with the findings as documented by the resident/fellow. Reading Radiologist: Ford Fernández Resident: Laith Berkowitz Narrative 11/05/2023 8:27 AM PRESCRIPTION BENEFIT SPECIALIST Exam: Cervical spine CT without contrast, 11/04/2023 [...] spinal canal narrowing. C5-6: Mild left and dnyx-jh-cqrdftgw right neural foraminal narrowing. Borderline mild spinal [...] spinal canal narrowing. C5-6: Mild left and voky-gz-gzatywbx right neural foraminal narrowing.Borderline mild spinal canal [...] CT CHEST/ABD/PELVIS W/IV CONT (11/04/2023 11:05 PM PRESCRIPTION BENEFIT SPECIALIST) Anatomical Region Laterality Modality Chest Computed Tomogra phy 11/04/2023 11:2 9 PM PRESCRIPTION BENEFIT SPECIALIST Impressions 11/05/2023 6:33 AM PRESCRIPTION BENEFIT SPECIALIST Impression: 1. No acute traumatic sequelae in [...] Resident: Laith Berkowitz Narrative 11/05/2023 6:33 AM PRESCRIPTION BENEFIT SPECIALIST Comparison: None Indication: Trauma (STAB) ?? Technique: [...] ED CHEMISTRY LABS(NA,K,CL,CO2,GLU,CREAT,CA-IONIZED,ANION GAP) (11/04/2023 10:48 PM PRESCRIPTION BENEFIT SPECIALIST) Sodium 144 135 - 148 mEq/L [facility] [...] Result Low Blood 11/04/2023 10:4 8 PM PRESCRIPTION BENEFIT SPECIALIST 11/04/2023 10:49 PM PRESCRIPTION BENEFIT SPECIALIST Narrative [facility] - 11/04/2023 10:55 PM PRESCRIPTION BENEFIT SPECIALIST Critical value for Potassium called to and read back by Rafa Hutchins RN in ??EDSTAB 2 at 11/04/2023 22:55:31 PRESCRIPTION BENEFIT SPECIALIST by Eleni Spring MLS. Devin Dougherty MD LABORATORY Performing Organization Address [facility] Co de Phone Number [address] [address] * (ABNORMAL) ED HEMOGLOBIN TOTAL (ED ONLY) (11/04/2023 10:48 PM PRESCRIPTION BENEFIT SPECIALIST) Hgb 10.3(L) 11.5 - 15.7 g/dL [facility] Blood 11/04/2023 10:4 8 PM PRESCRIPTION BENEFIT SPECIALIST 11/04/2023 10:49 PM PRESCRIPTION BENEFIT SPECIALIST Devin Dougherty MD LABORATORY Performing Organization Address [facility] Co de Phone Number [address] [address] * ED INR (11/04/2023 10:45 PM PRESCRIPTION BENEFIT SPECIALIST) Pathologist [facility] ED INR 1.0 0.8 - 1.1 [facility] Comment: Warfarin Therapeutic Range: Standard Intensity: 2.0 - 3.0 High Intensity: 2.5 - 3.5 Blood 11/04/2023 10:4 5 PM PRESCRIPTION BENEFIT SPECIALIST 11/04/2023 10:48 PM PRESCRIPTION BENEFIT SPECIALIST Devin Dougherty MD LABORATORY Performing Organization Address [facility] Co de Phone Number [facility] [address] [address] * EXTRA TUBE - LIGHT GREEN (11/04/2023 10:45 PM PRESCRIPTION BENEFIT SPECIALIST) LIGHT GREEN TUBE Stored [facility] Comment:Green tubes (Crown Heparin) are stored in the lab for 3 days from the collection date. Blood 11/04/2023 10:4 5 PM PRESCRIPTION BENEFIT SPECIALIST 11/04/2023 10:50 PM PRESCRIPTION BENEFIT SPECIALIST Devin Dougherty MD LABORATORY Performing Organization Address [facility] Co de Phone Number [facility] [address] [address] * EXTRA TUBE - SST (11/04/2023 10:45 PM PRESCRIPTION BENEFIT SPECIALIST) Pathologist [facility] SST TUBE Stored [facility] Comment:SST tubes (Serum Sep arator) are stored in the lab for 3 days from the collection date. Blood 11/04/2023 10:4 5 PM PRESCRIPTION BENEFIT SPECIALIST 11/04/2023 10:50 PM PRESCRIPTION BENEFIT SPECIALIST Devin Dougherty MD LABORATORY [facility] [address] [address] * HS TROPONIN (11/04/2023 10:45 PM PRESCRIPTION BENEFIT SPECIALIST) [facility] HS Troponin I 10 <=14 ng/L [facility] Blood 11/04/2023 10:4 5 PM PRESCRIPTION BENEFIT SPECIALIST 11/04/2023 11:05 PM PRESCRIPTION BENEFIT SPECIALIST Narrative [facility] - 11/04/2023 11:36 PM PRESCRIPTION BENEFIT SPECIALIST First Occurrence of the Troponin order is to be drawn Stat by Nursing staff on the unit. Devin Dougherty MD LABORATORY [facility] [address] [address] * (ABNORMAL) CBC WITH PLTS/AUTO DIFF (11/04/2023 10:45 PM PRESCRIPTION BENEFIT SPECIALIST) Pathologist [facility] WBC 9.42 4.00 - 10.00 k/cmm [facility] [...] [facility] LAB Blood 11/04/2023 10:4 5 PM PRESCRIPTION BENEFIT SPECIALIST 11/04/2023 11:05 PM PRESCRIPTION BENEFIT SPECIALIST Devin Dougherty MD LABORATORY Performing Organization Address City/[facility]/ZIP Co de Phone Number [facility] [address] [address] * PRECAUTIONARY TUBE (11/04/2023 10:45 PM PRESCRIPTION BENEFIT SPECIALIST) Prec Tube Precautionary Blood Bank Specimen Received. [facility] Blood 11/04/2023 10:4 5 PM PRESCRIPTION BENEFIT SPECIALIST 11/04/2023 10:52 PM PRESCRIPTION BENEFIT SPECIALIST Devin Dougherty MD LAB TRANSFUSION SER VICES Performing Organization Address City/[facility]/ZIP Co de Phone Number [facility] [address] [address] * (ABNORMAL) ANTI XA HEPARIN UNFRACTIONATED (11/04/2023 10:45 PM PRESCRIPTION BENEFIT SPECIALIST) Anti XA Hep U <0.04(L) 0.30 - 0.70 IU/mL [facility] Blood 11/04/2023 10:4 5 PM PRESCRIPTION BENEFIT SPECIALIST 11/04/2023 11:05 PM PRESCRIPTION BENEFIT SPECIALIST Devin Dougherty MD LABORATORY [facility] [address] [address] * ED US CRITICAL CARE (11/04/2023 10:40 PM PRESCRIPTION BENEFIT SPECIALIST) Anatomical Region Laterality Modality Ultrasound Narrative 11/04/2023 11:28 PM PRESCRIPTION BENEFIT SPECIALIST ED Trauma eFAST Ultrasound Indications: Suspicion of [...] Advance Directives For more information, please contact: [phone] Latest Code Status on File Code Status [...] Code Status With Whom? Patient Care Teams Import/Export Analyst Relationship Specialty Start Date End Date Eloise Reeves DO [address] [place] [address] PCP - General Family Medicine 11/06/23
--- OUTSIDE RECORDS SUMMARY | 2023-12-13 13:35 | XMS_ITS | Encounter Summary ---
Author Name Unknown Organization [facility] Address [address] [place] [address] Phone Care Team Providers Care Certified Medical Aide Name Role Phone Eloise Reeves DO Primary Care Provider Reason for Visit * Reason Comments Referral TBI * Consult/Test/Treat (Routine) - Closed Specialty Diagnoses / Procedures Referred By Contac t Referred To Contact Physical Medicine and Rehab / PHYSICAL MEDICINE AND REHAB Diagnoses Fall, initial encounter SDH (subdural hematoma) ([facility]) SAH (subarachnoid hemorrhage) ([facility]) Traumatic brain injury with loss of consciousness, initial encounter ([facility]) Jesusita Aiken, TAMMIE, SPICE BLENDER [address] [place] [address] [facility] [address] [place] [id number] Referral ID Status Reason Start Date Expiration Date Visits Re quested Visits Authorized [id number] Closed 11/08/2023 11/07/2024 1 1 Encounter Details Date Type Department Care Team (Latest Contact Info) Description 11/27/2023 1:00 PM MATERIAL LOADER [facility] [address] [address] Leidy Velazquez PA-C [address] [address] Mild traumatic brain injury, with [...] Coronavirus/COVID-19? No / Unsure 11/04/2023 10:48 PM MATERIAL LOADER documented as of this encounter Last Filed Vital Signs Vital Sign Reading Time Taken Comments Blood Pressure 108/71 11/27/2023 12:54 PM MATERIAL LOADER Pulse 74 11/27/2023 12:54 PM MATERIAL LOADER Temperature - - Respiratory Rate - - Oxygen Saturation - - Inhaled Oxygen Concentration - - Weight 61.6 kg (135 lb 12.8 oz) 024 12:54 PM MATERIAL LOADER Height - - Body Mass Index 28.38 11/05/2023 12:03 AM MATERIAL LOADER documented in this encounter Patient Instructions * Patient Instructions* Leidy Velazquez PA-C - 11/27/2023 1:00 PM MATERIAL LOADER You were seen at [facility] for traumatic brain injury. You [...] you do not hear from them, call [phone] to schedule Psychiatry for mood changes, this is for evaluation and treatment recommendations that may include medication. You will need to call to schedule this appointment. Please call [phone] and inform them you have a referral [...] to your scheduled appointment by calling at [phone]. If you miss three or more appointments, [...] plan ahead. Paperwork can be faxed to [phone]. Brain Injury and Physical Medicine & Rehabilitation Contact List Lista de contactos de lesiones cerebrales traum??rochelle, medicina f??gricelda y rehabilitaci??ora Ibrahim Maskxada jenn Jim[employer]nez [employer] Phone To Schedule Appointments Para programar citas Hadii aad dooneeyso inaad norman sameeysato They make appointments for your doctor in the TBI/PMR clinic and your therapists [phone] Staff Nurse Nicolas carney??kirti Davalos Call for questions about medications, symptoms, or paperwork issues You can fax paperwork to [phone]. [phone] Health Information Management (HIM)/Medical Records Registros medicos Ashu Holloway Contact them if you need copies of your medical records at [facility]. If you work with a [facility] they shouldcontact [facility] for their updates. You can also visit them on Blue 1. They are open Sunday-Sunday. If you need a form for Authorization to Release Health Information, you may request one at an appointment or download a form online at: [email or web address] [phone] Patient Billing/ Financial Assistance Facturaci??n Ellie Saunders/Meli duran If you have questions or problems with your medical bills. Financial assistance, insurance issues, or for more information about your medical bill. [phone] Community Resources: The [place] [facility] [employer] offers resource facilitation at [email or web address]. Online courses [...] please call the TBI nurse at . RIAL LOADER documented in this encounter Progress Notes * Leidy Velazquez PA-C - 11/27/2023 1:00 PM CST [place], [place] [id number] [place] [address]#: [id number] PATIENT: Lucinda Casas : 1940 DATE OF [...] including pre-visit review of separately obtained history, glkn-lp-[id number] interaction performing medically appropriate physical exam, patient [...] including pre-visit review of separately obtained history, [id number]-qh-[id number] interaction performing medically appropriate physical exam, patient counseling/education, interpretation of diagnostic results, care coordination and documentation. External records reviewed through care everywhere, [facility] documentation reviewed for information regarding injury. History collected through review of records, in addition to patient report. 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
--- OUTSIDE RECORDS SUMMARY | 2023-12-13 13:36 | XMS_ITS | Encounter Summary ---
Author Name Unknown Organization [facility] Address [address] [place] [address] Phone Care Team Providers Care Pot Room Supervisor Name Role Phone Eloise Reeves DO Primary Care Provider Reason for Referral * Consult/Test/Treat (Routine) - Closed Specialty Diagnoses / Procedures Referred By Selma bhandari Referred To Contact Physical Medicine and Rehab / PHYSICAL MEDICINE AND REHAB Diagnoses Fall, initial encounter SDH (subdural hematoma) ([facility]) SAH (subarachnoid hemorrhage) ([facility]) Traumatic brain injury with loss of consciousness, initial encounter ([facility]) Jesusita Aiken APRN, EGG BREAKING MACHINE OPERATOR [address] [place] [address] [facility] [address] [address] Referral ID Status Reason Start Date Expiration Date Visits Re quested Visits Authorized [id number] Closed 11/08/2023 11/07/2024 1 1 NESS PERFORMANCE ADVISOR Reason for Visit * Reason Comments Fall * Auth/Cert (Routine) Specialty Diagnoses / Procedures Referred By Contjerrod t Referred To Contact SURGERY Diagnoses SDH (subdural hematoma) ([facility]) Fall, initial encounter Tariq Bobo MD [address] [facility] [id number] [address] [place] [address] [address] [place] [address] Referral ID Status Reason Start Date Expiration Date Visits Re quested Visits Authorized [id number] 1 1 Encounter Details Date Type Department Care Team (Latest Contact Info) Description 11/04/2023 10:39 PM BUSINESS PERFORMANCE ADVISOR - 11/16/2023 9:19 AM BUSINESS PERFORMANCE ADVISOR Hospital Encounter [facility] Surgery/Trauma/Kimmie ro 2 [address] [place] [id number] Devin Dougherty MD [address] [place] [address] Quinn Covarrubias MD [address] [place] [address] Gregg Dexter MD [address] [facility] [address] [place] [address] Fall, initial encounter Discharge Disposition: [...] Coronavirus/COVID-19? No / Unsure 11/04/2023 10:48 PM BUSINESS PERFORMANCE ADVISOR documented as of this encounter Last Filed Vital Signs Vital Sign Reading Time Taken Comments Blood Pressure 148/51 11/16/2023 4:25 AM BUSINESS PERFORMANCE ADVISOR Pulse 61 11/16/2023 4:25 AM BUSINESS PERFORMANCE ADVISOR Temperature 36.6 ??C (97.8 ??F) 11/16/2023 4:25 AM CS T Respiratory Rate 16 11/16/2023 4:25 AM BUSINESS PERFORMANCE ADVISOR Oxygen Saturation 90% 11/16/2023 4:25 AM BUSINESS PERFORMANCE ADVISOR Inhaled Oxygen Concentration - - Weight 69.7 kg (153 lb 10.6 oz) 024 12:03 AM BUSINESS PERFORMANCE ADVISOR Height 147.3 cm (4' 10) 11/05/2023 12: 03 AM BUSINESS PERFORMANCE ADVISOR Body Mass Index 32.12 11/05/2023 12:03 AM BUSINESS PERFORMANCE ADVISOR documented in this encounter Discharge Summaries * [...] determined to be a good fir for [facility] inpatient acute rehab but after 1-2 weeks of therapy she wouldstill need 24/ observation. Due to her insurance it does not pay for a tcu after [place]. The family chose to discharge to [...] pale. Neurological: Mental Status: She is alert. Sales Order Coordinator Needed: no PLANNED DISCHARGE ORDERS: Suture/Miguel: None [...] 4:30PM, M-F): Call the Surgery Clinic at [phone] After hours or on Holidays: Call the [facility] farm operator . Ask the farm operator to page the general surgery resident specimen accessioner. IF: -- you feel you are getting [...] getting larger: a pupil is the dark [place] in the center of the eye - [...] it is often helpful to return to [facility] to be evaluated. If you live far away or are in extreme distress (i.e cannot breathor won't wake up), call 911 and first responders can decide which hospital is best. If you have any questions about your or your loved one's condition after discharge, call [phone] to speak with a nurse. Please contact [...] -- Read all labels for prescription and Touv-fvm-nsubxgz medicines. Ask the pharmacist if your prescription [...] documented. Gregg Dexter MD, 11/16/2023 8:18 AM NESS PERFORMANCE ADVISOR documented in this encounter Discharge Instructions * Discharge Instr - Speech Language Pathology* Nayeli Alvarado SLP [facility] - 11/15/2023 4:39 PM BUSINESS PERFORMANCE ADVISOR Speech-language pathologists (nail setter) assess and treat speech, language, cognition (thinking) [...] your primary Speech-Language Pathologist directly or call [phone]. NESS PERFORMANCE ADVISOR documented in this encounter Medications at Time [...] equipment/supplies recommended: none Final discharge destination: Subacute halfway with rehab care R: The patient and family understood the AVS. P: Support patient and family if they call back with questions. Cornell Solomon RN, 11/16/2023 9:19 AM NESS PERFORMANCE ADVISOR * Carolina Awan RN - 11/16/2023 2:30 AM CST Entered chart to leave staff to staff regarding pt's d/c ride in the AM Carolina Awan RN, 11/16/2023 2:30 AM NESS PERFORMANCE ADVISOR * Sinai Brady PA-C - 11/15/2023 3:50 [...] II, and HLD, who was admitted to [facility] 11/04/2023 after being found unconscious [...] address self care, ADL's, adaptive equipment Continue QUALITY ANALYST to address speech, swallow, communication, cognition [...] of this note have been dictated using [employer] dictation software. Please excuse any onyx chip terrazzo worker errors and feel free to contact me regarding such errors or confusion regarding intended message. Sinai Brady PA-C, CBIS Pager via [employer] NESS PERFORMANCE ADVISOR * Nayeli Alvarado, QUALITY ANALYST [facility] - 11/15/2023 2:49 PM CST Speech-Language Pathology Progress Note 11/15/2023 QUALITY ANALYST Recommendations Discharge Recommendations (QUALITY ANALYST): Post-acute placement recommended. Acute Rehab if meets admission criteria No known barriers to placement Barriers to Discharge (QUALITY ANALYST): NA - Post acute placement is recommended and no barriers to placement known. Post Discharge follow-up (QUALITY ANALYST): QUALITY ANALYST at post-acute placement Recommend PM&R Consult (QUALITY ANALYST): Yes, for assessment of post-acute placement needs. Pt appears to be a candidate for higher intensity rehab services. Diet Recommendation: Current Diet : Regular Current Liquid: Thin liquids Medication Administration: Medications with thin liquid Aspiration Precautions: Upright with all eating and drinking Oral Hygiene: Lefors teeth 2x/day Positioning Techniques: Seat fully upright [...] Cognitive communication deficit R41.841, Treatment Type:Cognitive-linguistic Treatment (48835, 19383) Treatment Frequency: 2-3x per week CLINICAL IMPRESSIONS Patient presents with severe cognitive-linguistic deficits in areas of attention, working, short-term, and long-term memory, problem solving, reasoning, processing speed, and executive functioning secondary to SDH of the R>L tentorial leaflets and R cerebral convexity, scattered SAH, L periventri cular hemorrhage, and a small L frontal IPH. Ongoing tx is warranted. Speech-Language Pathologist: Nayeli Alvarado SLP [facility], 11/15/2023 2:49 PM Pager: [employer] NESS PERFORMANCE ADVISOR * Randy Barragan - 11/15/2023 10:27 AM CST Transportation set for patient as follows: Date and time () of patient departure: 11/16/2023 @0900 Destination: [facility] [place] [address] Type of ride: wheelchair Reference #[id number] Transportation vendor of ride: [employer] [phone] * If this ride needs to be [...] Clinical Coordinators will be informed via a [employer] page. PCS form was completed in Progress [...] Weight: 69.7 kg (153 lb 10.6 oz) NESS PERFORMANCE ADVISOR * Fide Reis - 11/15/2023 10:23 AM CST Preadmission Screening Submitter InformationPerson Being ReferredMedical InformationADL'[facility] SystemSubmitResults Results Thank you for submitting [...] help, contact the Senior LinkAge Line at [phone] or click to contact us. Print this page You have successfully submitted the preadmission screening (PAS) to the Senior LinkAge Line on: Created On 11/15/2023 10:08 AM Your confirmation number is: [id number] Results Level of Care: Based on the information you provided, it appears this person meets level of care for purposes of MA payment. OBRA: It appears this person does not need an OBRA Level II assessment. Submitter Information Form Type PAS Submitter First and Last Name Fide Reis Direct Email Agency [facility] Service Type Hospital Street [address] [facility] Zip Code [address] Is your Agency outside [place]? Person Being Admitted to Nursing Facility Legal first name Lucinda Last name Kennedy Date of 1940 Age 83 Gender Female Marital Status M= living with spouse Race White - W Ethnicity / Currently living with: 02 Living with spouse/parent Planned living with 02 Living with spouse/parent Housing Type Home or apartment, including assisted living () Mailing Address [address] [place] [address] [place] [address] [facility] Medical Information Reason for nursing facility [...] Care Nursing Facility Nursing Facility Service Type [facility] [address] If your provider is not listed [...] Phone Fax Patient Preferred Theresa Yusuf Sushil [facility] Selected Custodial [address] [facility] [address] [phone] -- Internal Comment last updated by Bill Olivera 11/15/[address] [place] [address] offered us bed today. Working on setting up a ride. Team informed. Bill Olivera, 11/15/2023 10:01 AM Spoke with Italia. Will discuss further with her team. May likely admit tomorrow. May need prior auth. Bill Olivera, 11/15/2023 9:26 AM [facility] Considering Need clinical review N/A [address] [facility] [address] [phone] Internal Comment last updated by Fide Reis 11/14/2023 0926 Shared female .. bed .Fide Reis, 11/14/2023 9:25 AM [facility] Pending - Request Sent N/A [address] [facility] [address] Internal Comment last updated by Fide Reis 11/14/2023 0918 LVM for admissions .Fide Reis, 11/14/2023 9:18 AM [facility] Pending - Request Sent N/A [address] [facility] [phone] -- Internal Comment last updated by Fide Reis 11/14/2023 0920 LVM for Renata in admissions Rere Reissushil Johansen, 11/14/2023 9:20 AM [facility] Pending - Request Sent N/A [address] [address] [phone] Internal Comment last updated by Fide Reis 11/14/2023 0921 LVM for admissions .Savanna Reisgee Johansen, 11/14/2023 9:21 AM [facility] Pending - Request Sent N/A 8[address] [facility][1] [address] [phone] -- [facility] Pending - Request Sent N/A [address] [address] [phone] -- [facility] Pending - Request Sent N/A 9889 [facility] [address] [phone] -- [facility] [place] [facility] Pending - Request Sent N/A 9[address] [facility] [address] -- [facility] Pending - Request Sent N/A 213 [facility] [address] [phone] -- [facility] Pending - Request Sent N/A [address] [address] [phone] -- [facility] Declined Not a TCU N/A [address] [facility] [address] [phone] Internal Comment last updated by Marycarmen Caldwell 11/09/2023 1033 Not a TCU per the [phone] phone number connected to the same address. Marycarmen Caldwell,11/09/2023 10:33 AM [facility] Declined Closed N/A [address] [facility] [address] [phone] Internal Comment last updated by Fide Reis 11/08/2023 1359 Has been closed for 1 year . Fide Reis, 11/08/2023 1:59 PM [facility] Declined No Contract with Patient's Insurance Carrier N/A 815 [facility] [id number] Internal Comment last updated by Bill Olivera 11/15/2023 0840 Family doesn't want it here. Bill Olivera, 11/15/2023 8:40 AM [facility] B3.320 Declined TCU N/A [address] [place] [phone] -- Internal Comment last updated by Bill Olivera 11/09/2023 0829 PM&R continues to follow. If DC imminent, recommending TCU instead. Bill Olivera, 11/09/2023 8:29 AM Pending PMnR recs. Bill Olivera, 11/06/2023 11:04 AM [facility] Declined Facility Cannot Provide for Patient's needs N/A [address] [place] [address] [phone] -- [facility] Declined Closed N/A [address] [place] [address] [phone] -- Internal Comment last updated by Marycarmen Caldwell 11/09/2023 1034 Permanently closed [facility] Declined Family choice N/A 8[address] [facility] [address] [phone] -- Internal Comment last updated by Fide Reis 11/14/2023 0916 LVM for admissions. Fide Reis, 11/14/2023 9:16 AM [facility] Declined Family choice N/A [address] [facility] [address] [phone] -- [facility] [place] [facility] Declined Family choice N/A [address] [facility] [address] [phone] -- [facility] Declined Bed not available N/A [address] [facility] [address] [phone] -- Home Medical Care Coordination has not been started for this encounter. 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 I discussed with the resident and agree with the resident???s findings and plan documented in the resident???s note from above. Anyrevisions by me are documented. Gregg Dexter MD, 11/15/2023 3:39 PM NESS PERFORMANCE ADVISOR * Gregg Dexter MD - 11/14/2023 11:58 [...] documented. Gregg Dexter MD, 11/15/2023 3:38 PM NESS PERFORMANCE ADVISOR * Sharri Price, OTR/L - 11/14/2023 11:00 [...] Functional activity: 8 minutes RAFAEL Medellin/Kelton Pager: [employer] OT Department NESS PERFORMANCE ADVISOR * Carola Spence, DIRECTOR OF EMERGENCY NURSING - 11/14/2023 10:00 AM CST Images from [...] intensity rehab services S: We are in [place].. Well if we are in [place] I told Wan to go to the [...] Quality (General): Shuffling;Unsteady Stairs Assistive Devices Used: (STOCK CHECKERER) Sitting Static Balance Level of Assistance: Upper [...] SLS) Vertical/horizontal head turns - slows requires STOCK CHECKERER Amb slow/fast : no significant change achieved Education : TCU vs Acute rehab and amount of assist patient will require upon dc home which is likely general supervision Interdisciplinary Communication PA/MUD JACK OPERATOR: discussed patient Tuckpointer Cleaner Caulker: daughter wishing to discuss POA Family: present [...] transfer bed to/from chair with (6) Modified Fountain with sliding board or pivot method. By 11-17-2023 Outcome: In progress Goal: Patient will transfer sit to/from stand Description: Patient will transfer sit to/from stand with (6) Modified Fountain By 11-17-2023. Outcome: In progress Problem: Decreased Ambulatory Skills Goal: Improve gait Description: Ambulate 100 meters using Front - wheeled walker with (6) Modified Fountain By 11-17-2023. Outcome: In progress Goal: Improve gait on stairs Description: Ascend/descend 7 +7 stairs using Cane with (6) Modified Fountain .By 11-17-2023 Outcome: In progress Problem: Decreased [...] stairs for home usage daily. DIRECTOR OF EMERGENCY NURSING Appropriate: Yes Carola Spence PTA 11/14/2023 Pager: [facility] PT Dept NESS PERFORMANCE ADVISOR * Sinai Brady PA-C - 11/14/2023 9:48 [...] II, and HLD, who was admitted to [facility] 11/04/2023 after being found unconscious [...] address self care, ADL's, adaptive equipment Continue QUALITY ANALYST to address speech, swallow, communication, cognition [...] of this note have been dictated using [employer] dictation software. Please excuse any onyx chip terrazzo worker errors and feel free to contact me regarding such errors or confusion regarding intended message. Sinai Brady PA-C, CBIS Pager via [employer] Total time spent on this encounter, on the date of service including pre-visit review of separatelyobtained history, xash-xf-[id number] interaction performing medically appropriate physical exam, patient counseling/education, interpretation of diagnostic results, care coordination and documentation was 50 minutes. NESS PERFORMANCE ADVISOR * Sharri Price OTR/Kelton - 11/13/2023 4:49 [...] dressing task at Min A including donning cardiopulmonary technician socks and shorts at EOB. Patient completing light g/h tasks while seated in chair bedside with s/u. 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 Acute Rehab if meets admission criteria No known barriers to placement Barriers to Discharge (QUALITY ANALYST): NA - Post acute placement is recommended and no barriers to placement known. Post Discharge follow-up (QUALITY ANALYST): QUALITY ANALYST at post-acute placement Recommend PM&R Consult (QUALITY ANALYST): Yes, for assessment of post-acute placement needs. Pt appears to be a candidate for higher intensity rehab services. Diet Recommendation: Current Diet : Regular Current Liquid: Thin liquids Medication Administration: Medications with thin liquid Aspiration Precautions: Upright with all eating and drinking Oral Hygiene: Lefors teeth 2x/day Positioning Techniques: Seat fully upright [...] Cognitive communication deficit R41.841, Treatment Type:Cognitive-linguistic Treatment (02706, 18316) Treatment Frequency: 2-3x per week CLINICAL IMPRESSIONS Severe cognitive-linguistic deficits within attention, memory, problem solving, reasoning, and executive functioning. Ongoing cognitive-linguistic dx/tx is needed. Speech-Language Pathologist: Sera Fleming SLP [facility], 11/13/2023 1:14 PM Pager: [employer] NESS PERFORMANCE ADVISOR * Jesusita Aiken APRN, EGG BREAKING MACHINE OPERATOR - 11/13/2023 8:21 AM CST SURGERY TRAUMA [...] Jesusita Aiken APRN, EMILY, 11/13/2023 11:17 AM NESS PERFORMANCE ADVISOR * Carola Spence PTA - 11/12/2023 10:30 [...] (Numeric): 0 (reports she has no pain) O:Sales Order Coordinator Used: None needed Mental Status Mental Status: [...] Shuffling;Unsteady -with nonuse of gait and vs STOCK CHECKERER - patient exhibits significantly shortened step length Stairs Number of Steps: 5 Stair Rails: Right rail Stairs : Minimal assist Stairs Method: Ascend step-to pattern;Descend reciprocal pattern (max verbal cues for sequencing) Assistive Devices Used: (STOCK CHECKERER) -catches foot on each step Sitting Static [...] transfer bed to/from chair with (6) Modified Fountain with sliding board or pivot method. By 11-17-2023 Outcome: In progress Goal: Patient will transfer sit to/from stand Description: Patient will transfer sit to/from stand with (6) Modified Fountain By 11-17-2023. Outcome: In progress Problem: Decreased Ambulatory Skills Goal: Improve gait Description: Ambulate 100 meters using Front - wheeled walker with (6) Modified Fountain By 11-17-2023. Outcome: In progress Goal: Improve gait on stairs Description: Ascend/descend 7 +7 stairs using Cane with (6) Modified Fountain .By 11-17-2023 Outcome: In progress Problem: Decreased [...] stairs for home usage daily. DIRECTOR OF EMERGENCY NURSING Appropriate: Yes Carola Spence PTA 11/12/2023 Pager: [employer] PT Dept NESS PERFORMANCE ADVISOR * Gregg Dexter MD - 11/12/2023 7:59 [...] documented. Gregg Dexter MD, 11/12/2023 7:19 PM NESS PERFORMANCE ADVISOR * Amelia Lobo MD - 11/11/2023 7:53 [...] 11/11/2023 07:56 PGY-5 General Surgery Resident Pager: [phone] or via [employer] NESS PERFORMANCE ADVISOR Associated attestation - Mariama Catherine DO - 11/12/2023 2:39 PM BUSINESS PERFORMANCE ADVISOR FACULTY NOTE I saw and evaluated the [...] on the Primary Treatment Team, click here. NESS PERFORMANCE ADVISOR Associated attestation - Mariama Catherine DO - 11/12/2023 2:39 PM BUSINESS PERFORMANCE ADVISOR FACULTY NOTE I saw and evaluated the patient on the date of the resident's note. I discussed with the resident and agree with the resident???s findings and plan documented in the resident???s note from above. Anyrevisions by me are documented. Mariama Catherine DO, 11/12/2023 2:39 PM * Olivia Johnson RN - 11/09/2023 11:34 PM CST Shift [id number] Pt A&O to self and family member, pt pleasantly confused, spouse at bedside, pt VSS, on 2L to 4L via facemask to maintain oxygen above 90%. Pt denies bonita, pt up with AX1 with GB and walker, call light within reach, bed alarm on. NESS PERFORMANCE ADVISOR * Carola Spence PTA - 11/09/2023 3:35 [...] patient adamantly denies having pain this PM O:Sales Order Coordinator Used: None needed Mental Status Mental Status: [...] With approach Clarissa is in bed - development writer notes significant improvement in alertness and participation in therapy this PM. She is pleasantly confused and often reports we are in [place], [place] - writerredirects that she is at the hospital in [place], [place]. Exhibits significant improvement with ambthis PM [...] transfer bed to/from chair with (6) Modified Fountain with sliding board or pivot method. By 11-17-2023 Outcome: In progress Goal: Patient will transfer sit to/from stand Description: Patient will transfer sit to/from stand with (6) Modified Fountain By 11-17-2023. Outcome: In progress Problem: Decreased Ambulatory Skills Goal: Improve gait Description: Ambulate 100 meters using Front - wheeled walker with (6) Modified Fountain By 11-17-2023. Outcome: In progress Goal: Improve gait on stairs Description: Ascend/descend 7 +7 stairs using Cane with (6) Modified Fountain .By 11-17-2023 Outcome: In progress Problem: Decreased [...] stairs for home usage daily. DIRECTOR OF EMERGENCY NURSING Appropriate: Yes Carola Spence PTA 11/09/2023 Pager: [employer] PT Dept NESS PERFORMANCE ADVISOR * Juhi Dent, PharmD - 11/09/2023 2:58 [...] ordered Juhi Dent, WalterD 11/09/2023 14:58 [employer] NESS PERFORMANCE ADVISOR * Sera Fleming SLP CCC - 11/09/2023 11:20 AM CST Speech Language Pathology: Attempted to see patient this am x2. Pt sleeping soundly and not waking sufficiently for tx. Will re-attempt to see patient today as schedule permits. Sera Fleming SLP CCC, 11/09/2023 11:20 AM NESS PERFORMANCE ADVISOR * Jesusita Aiken, BREAD STACKER, EGG BREAKING MACHINE OPERATOR - 11/09/2023 7:31 AM CST SURGERY TRAUMA PROGRESS NOTE -MUD JACK OPERATOR Lucinda Kennedy : 1940 Sex: female ASSESSMENT: [...] Resident and Staff Physician. Jesusita Aiken APRN, EGG BREAKING MACHINE OPERATOR, 11/09/2023 7:32 AM Discharge Milestones Documentation Discharge Milestones completed daily by the documenting provider on the Primary Treatment Team, click here. NESS PERFORMANCE ADVISOR * Carola Spence, DIRECTOR OF EMERGENCY NURSING - 11/08/2023 2:30 PM CST Physical Therapy [...] perform) Heel/Toe Raises: 10 reps Interdisciplinary Communication PA/MUD JACK OPERATOR: updated PM&R PA following session RN: ok [...] bed and her eyes are closed. When development writer states her voice she responds right away but her eyes do not open. Rotary Slicing Machine Operator cues patient to move supine > seated [...] transfer bed to/from chair with (6) Modified Fountain with sliding board or pivot method. By 11-17-2023 Outcome: In progress Goal: Patient will transfer sit to/from stand Description: Patient will transfer sit to/from stand with (6) Modified Fountain By 11-17-2023. Outcome: In progress Problem: Decreased Ambulatory Skills Goal: Improve gait Description: Ambulate 100 meters using Front - wheeled walker with (6) Modified Fountain By 11-17-2023. Outcome: In progress Goal: Improve gait on stairs Description: Ascend/descend 7 +7 stairs using Cane with (6) Modified Fountain .By 11-17-2023 Outcome: In progress Problem: Decreased [...] stairs for home usage daily. DIRECTOR OF EMERGENCY NURSING Appropriate: Yes Carola Spence PTA 11/08/2023 Pager: [facility] NESS PERFORMANCE ADVISOR * Bill Olivera - 11/08/2023 12:37 PM CSTSummary: DC Planning DC Planning Patient is near medical readiness to DC to next level of care. It is not yet clear if she will be aKnapp candidate yet. Rotary Slicing Machine Operator spoke with patient's daughter over the phone. Also, had spoken with patient's father earlierin the week. We will start looking for TCUs around [place]. Also, she will do further research and call me back with more options. CC explained that we can't guarantee placement in their preferred place, this is up to facility, insurance coverage and bed availability. Also, Medicare patients will not be able to stay in the hospital indefinitely while we look for their preferred TCU. NESS PERFORMANCE ADVISOR * Victor M Enrique MD - 11/08/2023 12:00 PM CST Images from the original note were not included. SURGERY TRAUMA PROGRESS NOTE -PGY 1 Lucinda Romo Kennedy : 1940 Sex: female ASSESSMENT: 83 y.o. yo female with SDH R cerebral convexity and falx, scattered SAH and periventricular hemorrhage . The following services have been consulted PM&R, QUALITY ANALYST. Night Events: Nurse reported weakness of right leg overnight during neuro checks, upon examination by overnight resident determined decreased rom 2/2 to right ankle pain. -Pt required 3 prn doses of labetalol overnight to maintain goal of sbp<160 Day Events: -Patient cleared by QUALITY ANALYST and has resumed regular diet -Restarted prior oral bp regimen -CXR not concerning for pneumonia -Procal WNL -Started Naproxen BID and DIRECTOR OF EMERGENCY NURSING allopurinol for suspected gout flare PLAN: Diet: [...] Victor M Enrique MD, 11/09/2023 8:29 AM NESS PERFORMANCE ADVISOR * Sinai Brady PA-C - 11/08/2023 11:33 AM CST Physical Medicine & Rehabilitation Follow-Up Lucinda Kennedy : 1940 Sex: female Patient lethargic, rouses briefly to acknowledge development writer before returning to sleep. Unable to [...] II, and HLD, who was admitted to [facility] 11/04/2023 after being found unconscious [...] address self care, ADL's, adaptive equipment Continue QUALITY ANALYST to address speech, swallow, communication, cognition [...] of this note have been dictated using [employer] dictation software. Please excuse any onyx chip terrazzo worker errors and feel free to contact me regarding such errors or confusion regarding intended message. Sinai Brady PA-C Pager via [employer] NESS PERFORMANCE ADVISOR * Ruby Franklin, OTR/L - 11/08/2023 10:10 AM CST OT NOTE: Attempted OT session but pt was too lethargic to meaningful participate, falling asleep quickly andmumbling responses to questions. Will try to return later this PM as schedule allows (tomorrow willschedule session in the PM as RN reports she is usually more alert after 2:00pm). Aubree Franklin, OTR / L 11/08/2023 NESS PERFORMANCE ADVISOR * Sera Fleming, [facility] - 11/08/2023 9:26 AM CST Speech-Language Pathology Progress Note 11/08/2023 QUALITY ANALYST Recommendations Discharge Recommendations (QUALITY ANALYST): Post-acute placement recommended. Acute Rehab if meets admission criteria No known barriers to placement Barriers to Discharge (QUALITY ANALYST): NA - Post acute placement is recommended and no barriers to placement known. Post Discharge follow-up (QUALITY ANALYST): QUALITY ANALYST at post-acute placement Recommend PM&R Consult (QUALITY ANALYST): Yes, for assessment of post-acute placement needs. Pt appears to be a candidate for higher intensity rehab services. 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 Cognitive-linguistic assessment not completed. Once pt clears, suspect she will have very good participation as she participates well when more alert. Speech-Language Pathologist: Sera Fleming SLP [facility], 11/08/2023 9:26 AM Pager: [employer] NESS PERFORMANCE ADVISOR * Sinai Brady PA-C - 11/07/2023 3:57 PM CST Physical Medicine & Rehabilitation Follow-Up Lucinda Ryans : 1940 Sex: female Patient lethargic, rouses briefly and acknowledges development writer, answers a few questions but unclear [...] II, and HLD, who was admitted to [facility] 11/04/2023 after being found unconscious [...] address self care, ADL's, adaptive equipment Continue QUALITY ANALYST to address speech, swallow, communication, cognition [...] of this note have been dictated using [employer] dictation software. Please excuse any onyx chip terrazzo worker errors and feel free to contact me regarding such errors or confusion regarding intended message. Sinai Brady PA-C Pager via [employer] Total time spent on this encounter, on the date of service including pre-visit review of separatelyobtained history, [id number]-[id number] interaction performing medically appropriate physical exam, patient counseling/education, interpretation of diagnostic results, care coordination and documentation was 35 minutes. NESS PERFORMANCE ADVISOR * Jazmine Thompson V - 11/07/2023 3:09 PM CST CULTURAL ASSESSMENT: SUMMARY: This development writer saw pt. At 12:26 PM on 11/07/2023. Rotary Slicing Machine Operator introduced herself to pt.'s , and discussed with him on development writer's role. Rotary Slicing Machine Operator asked pt.'s if he had any questions, comments, or concerns regarding pt.'s care. Pt.'s mentioned that he doesn't really know anything, so he will wait and see if later he would need assistance from development writer. Rotary Slicing Machine Operator gave her contact information for any future questions, comments, or concerns. Jazmine Thompson V, 11/07/2023 3:27 PM NESS PERFORMANCE ADVISOR * Sera Fleming SLP [facility] - 11/07/2023 2:41 PM CST Speech-Language Pathology Progress Note 11/07/2023 QUALITY ANALYST Recommendations Discharge Recommendations (QUALITY ANALYST): Post-acute placement recommended. Acute Rehab if meets admission criteria No known barriers to placement Barriers to Discharge (QUALITY ANALYST): NA - Post acute placement is recommended and no barriers to placement known. Post Discharge follow-up (QUALITY ANALYST): QUALITY ANALYST at post-acute placement Recommend PM&R Consult (QUALITY ANALYST): Yes, for assessment of post-acute placement needs. Pt appears to be a candidate for higher intensity rehab services. 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 Safe to restart baseline diet of regular textures and thin liquids. Ensure pt is upright for all PO intake and is alert. Speech-Language Pathologist: Sera Fleming SLP [facility], 11/07/2023 2:44 PM Pager: [employer] NESS PERFORMANCE ADVISOR * Juan Loera MD - 11/07/2023 10:42 AM CST SURGERY TRAUMA PROGRESS NOTE -PGY 1 Lucinda Ryans : 1940 Sex: female ASSESSMENT: 83 y.o. yo female with SDH R cerebral convexity and falx, scattered SAH and periventricular hemorrhage . The following services have been consulted PM&R, QUALITY ANALYST. Night Events: -Pt reported to be pulling out lines overnight, given zyprexa 10 mg for agitation Day Events: -Patient diet changed to NPO due to aspiration concerns -Held oral antihypertensives to start tomorrow pending clearance from QUALITY ANALYST -Start Maintenance fluids LR 110ml/hr ending [...] for her mother. Advised to speak with mental health social worker to start paperwork. Updated family [...] on the Primary Treatment Team, click here. NESS PERFORMANCE ADVISOR Associated attestation - Mariama Catherine DO - 11/12/2023 2:36 PM BUSINESS PERFORMANCE ADVISOR FACULTY NOTE I saw and evaluated the [...] yet. Dt scheduling, unable to reschedule today. NESS PERFORMANCE ADVISOR * Sera Fleming, STEPHIE [facility] - 11/07/2023 9:55 AM CST Speech-Language Pathology Progress Note 11/07/2023 QUALITY ANALYST Recommendations Discharge Recommendations (QUALITY ANALYST): Post-acute placement recommended. Acute Rehab if meets admission criteria No known barriers to placement Barriers to Discharge (QUALITY ANALYST): NA - Post acute placement is recommended and no barriers to placement known. Post Discharge follow-up (QUALITY ANALYST): QUALITY ANALYST at post-acute placement Recommend PM&R Consult (QUALITY ANALYST): Yes, for assessment of post-acute placement needs. Pt appears to be a candidate for higher intensity rehab services. Diet Recommendation: Current Diet : NPO Current Liquid: NPO Medication Administration: None orally Oral Hygiene: Lefors teeth 2x/day Instrumental Assessment Needed: No Additional Referrals Needed: None Page QUALITY ANALYST if alertness levels improve. Will re-evaluate [...] time. Education provided to at bedside re QUALITY ANALYST role and delirium dysphagia. 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 Pt is pending further imaging to ensure no change in TBI. Recommend continuing NPO at this time. RN to page QUALITY ANALYST with improved alertness levels and will see again today based on improvement. Speech-Language Pathologist: Sera Fleming, STEPHIE CCC, 11/07/2023 9:59 AM Pager: [employer] NESS PERFORMANCE ADVISOR * Ruby Franklin, OTR/L - 11/06/2023 4:39 [...] mgmt/ADL: 25 minutes Ruby Franklin, OTR/L Pager: [employer] OT Department NESS PERFORMANCE ADVISOR * Sera Fleming SLP CCC - 11/06/2023 2:32 PM CST Speech Language Pathology: Pt not seen today d/t staffing and time constraints. Will plan to see pt tomorrow for cognitive-linguistic dx/tx and swallow follow up. Sera Fleming SLP CCC, 11/06/2023 2:32 PM NESS PERFORMANCE ADVISOR * Shy Higuera - 11/06/2023 11:04 AM CST Was unable to draw blood because nurse requested lab to come back later. Notified YOVANY Cornejo at 11:04. Patient's visitor stated that these labs are duplicate, informed YOVANY Cornejo she will call lab if needed. Shy Higuera, 11/06/2023 11:04 AM NESS PERFORMANCE ADVISOR * Bill Olivera - 11/06/2023 10:56 AM CSTSummary: Care Coordination Assessment Care Coordination Assessment Expected DC Date: 11/07/2023 Social Information Sales Order Coordinator Used: None needed Decision Maker at Admission: [...] Risks for Readmission: Access to f/u appointments testing manager will continue to follow until DC [...] DO Inbasket notification sent via Care Everywhere NESS PERFORMANCE ADVISOR * Karime lAlison PA-C - 11/06/2023 8:06 AM CST NEUROSURGERY [...] intact Motor: Follows commands x4 extremities, 5/5 cardiopulmonary technician strength and plantar/dorsiflexion bilaterally, no pronator drift [...] PRN Neurosurgery will follow peripherally, please contact specimen accessioner resident with any questions or concerns. Staffed with Karime Sheikh PA-C, 11/06/2023 8:06 AM Neurosurgery [place] Discharge Milestones Documentation Discharge Milestones completed daily by the documenting provider on the Primary Treatment Team, click here. NESS PERFORMANCE ADVISOR * Derek Marie RN - 11/06/2023 12:58 [...] unit. Derek Marie RN, 11/06/2023 1:00 AM NESS PERFORMANCE ADVISOR * Gale Nassar MDIV - 11/05/2023 4:48 [...] Gale Nassar MDIV, 11/05/2023 4:49 PM Pager: [phone] NESS PERFORMANCE ADVISOR * Kindra Nichole RN - 11/05/2023 1:19 AM CST Upon admission, a Four Eyes Skin Inspection was completed with Rafa Goodman RN. Skin injuries were NOT present, and skin breakdown needing further assessment will be added to Avatar. Will implement interventions from Skin INJURY Bundle as appropriate. Kindra Nichole RN, 11/05/2023 1:20 AM NESS PERFORMANCE ADVISOR * Hernandez Mathur MD - 11/05/2023 12:00 [place] [address] [facility]#: [id number] PATIENT: LUCINDA KENNEDY : 1940 DATE DICTATED: 11/05/2023 SURGERY STAFF DAILY PROGRESS NOTE DATE OF SERVICE: 11/05/2023 I saw and evaluated the patient. I discussed management with residents, EGG BREAKING MACHINE OPERATOR, and PAs on the Neurosurgery team and [...] PhD Staff Physician Neurosurgery Service Received in Geophysics Professor: 11/05/2023 17:07:17 M: /[id number] [place]/MODL NESS PERFORMANCE ADVISOR documented in this encounter H&P Notes * [...] Team Notified by: [employer] Alert received at 0621 Tier Level page received at 9381 Staff Surgeon: Quinn Covarrubias MD Pediatric Patient < 15 years: No. [place] Trauma Team Time Out Completed: No HISTORY [...] studies, procedures and surgery) Admit to [facility] Trauma Surgery Service Neurosurgery Consult paged out. Neurosurgery resident arrived at 2310. Consult to SICU Full Code Cardiac Monitoring q1Hr neuro checks, CMS checks Incentive Spirometer Bedrest with C, T, & L spine precautions C-spine exam and possible clearance once final reads posted NPO until final reads on radiography Consult QUALITY ANALYST and keep strict NPO if Age [...] 11/04/2023 10:54 PM General Surgery PGY1 [facility] Surgery Service NESS PERFORMANCE ADVISOR Associated attestation - Quinn Covarrubias MD - 11/05/2023 10:43 AM BUSINESS PERFORMANCE ADVISOR FACULTY NOTE I saw and evaluated the [...] Patient Risks discussed: Pain, bleeding and infection [place] protocol: Patient identity confirmed: Verbally with patient, [...] complications Priscilla Holcomb MD, 11/04/2023 11:43 PM NESS PERFORMANCE ADVISOR Associated attestation - Rito Graf MD - 11/05/2023 2:30 AM BUSINESS PERFORMANCE ADVISOR I was present for the entire procedure. [...] contact pharmacist on service at [facility] ([employer]) [phone]. If no response within needed timeframe, please contact central pharmacy via phone at [phone]. Planned discharge medications are: Medication List Medications [...] 3 capsules (225 mg) by mouth daily. NESS PERFORMANCE ADVISOR * Tamiko Westbrook LGSW - 11/15/2023 8:32 AM CSTAssociated Order(s): CONSULT TO SMALL ENGINE MECHANIC Web Feeder Note Acknowledged consult place for support with [...] mail: (I sent supporting resources as requested) NESS PERFORMANCE ADVISOR * Isabel Day - 11/14/2023 2:18 PM [...] was no one else in the room. Rotary Slicing Machine Operator greeted Patient, introduced herself, and offered music. Patient was pleasantly confused and asked Rotary Slicing Machine Operator to sit down. Rotary Slicing Machine Operator sat down and got out her guitar. Patient chatted with Rotary Slicing Machine Operator. Rotary Slicing Machine Operator played a song for Patient on guitar and sang. During the music, Patient looked at the television. After the song, Patient talked about the circumstances leading to her hospitalization and about a possibly surgery. Patient told Rotary Slicing Machine Operator she is waiting for her to return after checking on their house in [place]. Rotary Slicing Machine Operator played a second song, After the music, Patient commented that the music was very beautiful. Rotary Slicing Machine Operator ended the session and Patient thanked Rotary Slicing Machine Operator. Goals Addressed: Psychosocial Support and Mood Enhancement Plan: Rotary Slicing Machine Operator will continue to offer music therapy to Patient when possible. Isabel Day, 11/14/2023 2:18 PM NESS PERFORMANCE ADVISOR * Kasey Ennis, PT - 11/06/2023 9:02 [...] History of Falling Z 91.81 PRECAUTIONS Falls Sales Order Coordinator Used: None needed ACTIVITY Up with Assist [...] math, 92, 102) hospital, Alert, and Cooperative [place] OBJECTIVE Initial patient presentation upon PT arrival: [...] EOB upon arrival, eating breakfast. She seems [place], slightly confused but cooperative. She has good [...] for home usage daily. . DIRECTOR OF EMERGENCY NURSING Appropriate: Yes Participated in goal setting and treatment planning: Patient, Synthetic Soil Blocks Pulper/Significant Other Agrees with goals and treatment plan: Patient - Yes, Caregiver/Significant Other - Yes. Kasey Ennis, PT 11/06/2023 Pager: [employer] PT Department NESS PERFORMANCE ADVISOR * Devyn Jamil MD - 11/06/2023 7:41 AM CST Images from the original note were not included. Physical Medicine & Rehabilitation Consultation Patient Name: Lucinda Kennedy : 1940 Medical Record: [id number] PRIMARY CARE PHYSICIAN: No primary care provider on file. REQUESTING PHYSICIAN: Quinn Covarrubias MD REASON FOR CONSULT: I was asked to evaluate this patient regarding their rehabilitation needs and appropriateness for acute rehabilitation. HISTORY OF PRESENT PROBLEM I personally reviewed the patient's medical record from the most recent [facility] admission including yet not limited to notes as below and summarized it below in conjunction with interview with the patient and patient's . Lucinda Kennedy is a 83 y.o. RHD female with chronic medical conditions including HTN, DM II, and HLD, who was admitted to [facility] 11/04/2023 after being found unconscious [...] she couldn't come up with the name. QUALITY ANALYST (11/05/23) Functional oropharyngeal swallow. Safe for [...] of the thoracic or lumbar spine. 2. Luiq-na-zxptebyy lumbar spondylosis without suspected high-grade spinal canal or neural foraminal narrowing. CT L-Spine (11/04/23) IMPRESSION Impression: 1. No suspected acute fracture or dislocation of the thoracic or lumbar spine. 2. Xxwu-pa-htzarvca lumbar spondylosis without suspected high-grade spinal canal [...] II, and HLD, who was admitted to [facility] 11/04/2023 after being found unconscious [...] address self care, ADL's, adaptive equipment Continue QUALITY ANALYST to address speech, swallow, communication, cognition [...] occur at the acute level such as [place] where she can participate in 3hrs/day and [...] service including pre-visit review of separatelyobtained history, ylln-il-sycj interaction performing medically appropriate physical exam, patient counseling/education, interpretation of diagnostic results, care coordination and documentation was 60 minutes. NESS PERFORMANCE ADVISOR * Ruby Franklin, OTR/L - 11/05/2023 1:53 [...] 10 minutes Therapist: Ruby Franklin OTR/L Pager: [facility] NESS PERFORMANCE ADVISOR * Reynaldo Anderson PA-C - 11/05/2023 12:41 [...] though 2 of 3 serve in the ([place] and one may be a Elastic Attacher Over[employer]?). She jokes about how long she has been to [place]. 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 Seen this afternoon, she is not oriented to time or place. No family present. She does indicate to me she prefers to go by [employer]. She was able to tell me a lot about her 3 grandsons that make her veryproud, sounds as though 2 of 3 serve in the ([place] and one may be a Elastic Attacher [employer]?). She jokes about how long she has been to [place]. 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 NESS PERFORMANCE ADVISOR * Sera Fleming SLP [facility] - 11/05/2023 9:56 AM CST SPEECH-LANGUAGE PATHOLOGY CONSULTATION QUALITY ANALYST Recommendations Discharge Recommendations (QUALITY ANALYST): Post-acute placement recommended. Acute Rehab if meets admission criteria No known barriers to placement Barriers to Discharge (QUALITY ANALYST): NA - Post acute placement is recommended and no barriers to placement known. Post Discharge follow-up (QUALITY ANALYST): QUALITY ANALYST at post-acute placement Recommend PM&R Consult (QUALITY ANALYST): Yes, for assessment of post-acute placement needs. Pt appears to be a candidate for higher intensity rehab services. Diet Recommendation: Current Diet : Regular Current Liquid: Thin liquids Medication Administration: Medications with thin liquid Aspiration Precautions: Upright with all eating and drinking Oral Hygiene: Lefors teeth 2x/day Positioning Techniques: Seat fully upright [...] Admitted to SICU for close neuro monitoring. QUALITY ANALYST consulted to evaluate a marge function. SUBJECTIVE Barriers to Learning: No caregiver present;Cognitive linguistic deficit Barriers to Discharge (QUALITY ANALYST): NA - Post acute placement is [...] intact. EDUCATION Audience: Patient Education: results of assessment;QUALITY ANALYST scope of practice;QUALITY ANALYST plan of care;recommendation for additional therapy Speech-Language Pathologist: Sera Fleming, [facility], 11/05/2023 9:56 AM Pager: [employer] NESS PERFORMANCE ADVISOR * Cale Thompson MD - 11/05/2023 1:00 AM CSTAssociated Order(s): CONSULT TO POLICE PILOT SICU CONSULT - G3 Lucinda Ryans : [...] pulmonary toilet Gastrointestinal/Nutrition: Assessment: NPO, will need QUALITY ANALYST clearance prior to diet Plan: - Continue NPO - QUALITY ANALYST Electrolytes: Assessment: otherwise grossly within normal [...] Component Value Date/Time PHART 7.37 11/05/2023 0118 [id number] 43 11/05/2023 0118 PO2ART 83 11/05/2023 0118 IGI1UAJ 25 11/05/2023 0118 [id number] 96 11/05/2023 0118 BEART -0.3 11/05/2023 0118 Labs and imaging reviewed. Art Thompson MD - PGY-3 Surgery Service Pager: [employer] This patient was seen in consultation for critical care management requested by Devin Dougherty MD;P* NESS PERFORMANCE ADVISOR Associated attestation - Quinn Covarrubias MD - 11/05/2023 10:44 AM BUSINESS PERFORMANCE ADVISOR FACULTY NOTE I saw and evaluated the [...] elbow flex/ext. 5/5 wrist flex/ext. 5/5 hand cardiopulmonary technician. LUE: 5/5 shoulder abduction. 5/5 elbow flex/ext. 5/5 wrist flex/ext. 5/5 hand cardiopulmonary technician. Lower Extremities: RLE: 5/5 hip flexion. 5/5 knee flex/ext. 5/5 ankle plantar-/dorsiflexion. 5/5 EHL. LLE: 5/5 hip flexion. 5/5 knee flex/ext. 5/5 ankle plantar-/dorsiflexion. 5/5 EHL Sensory: Sensation intact in all 4 extremities REVIEW OF LABORATORY, PATHOLOGY, AND RADIOLOGY DATA: [facility] Lab Results Component Value Date/Time NA [...] independently reviewed: Laboratory results and Radiology images NESS PERFORMANCE ADVISOR Associated attestation - Marina Shaffer MD - 11/05/2023 4:13 PM BUSINESS PERFORMANCE ADVISOR 83 year old woman presented after presumed [...] Oximetry - Continuous (ICU) Oxygen Consult to Back End Architect CONSULT TO PALLIATIVE CARE Straight Cath Protocol [...] RN in EDSTAB 2 at 11/04/2023 22:55:31 BUSINESS PERFORMANCE ADVISOR by Eleni Spring MLS. ED HEMOGLOBIN TOTAL (ED ONLY) - Abnormal Hgb 10.3 (*) LACTATE (LACTIC ACID) - Abnormal Lactate 2.7 (*) Narrative: Send specimen on ice! PTT (APTT) - Abnormal APTT 22.9 (*) ANTI XA HEPARIN UNFRACTIONATED - Abnormal Anti XA Hep U <0.04 (*) URINALYSIS,TOTAL - Abnormal Color COLORLESS Appearance CLEAR Urine Glucose 100 (*) Bili UA NEGATIVE Ketones NEGATIVE Specific Fisher 1.036 (*) Blood Ur NEGATIVE PH Urine 7.5 (*) Protein Ur TRACE Urobilinogen NORMAL Nitrite Ur NEGATIVE Leuk Est NEGATIVE WBC Ur 0-5 RBC Ur 0-3 SQ EPITH 0-5 Urinalysis Performed at: [facility] FIBRINOGEN Fibrinogen 288 PRECAUTIONARY TUBE [...] hemorrhage Vanna Parekh PA-C, 11/05/2023 3:11 AM NESS PERFORMANCE ADVISOR * Kathy Worthington RN - 11/05/2023 12:09 AM CST Bed: A08 Expected date: Expected time: Means of arrival: Comments: Stab 2 NESS PERFORMANCE ADVISOR * Ana Ordaz RN - 11/04/2023 10:51 PM CST ED-laser operator-Note: --Pertinent Information: Pt arrives to ED after fall down flight of stairs. --Pt's , daughter and son in law were on scene and are all coming to [facility]. --Family contact: Daughter Zain #[phone] / Son in Law # [phone] Ana Odraz RN NESS PERFORMANCE ADVISOR * Rafa Hutchins RN - 11/04/2023 10:40 PM CST BIBA from home after called when he heard her fall downstairs. Upon EMS arrival, patient was altered and lethargic. reports to EMS that patient is on blood thinners. 18g PIV left AC, 20g PIV right forearm. BG 272. Patient arrives to STAB Room awake, disoriented to time and situation. NESS PERFORMANCE ADVISOR documented in this encounter Miscellaneous Notes * Discharge non-MD/non-AVERY Summaries - Kasey Ennis, PT - 11/16/2023 9:19 AM CST Physical Therapy Inpatient Discharge Summary Lucinda Kennedy [id number] Diagnosis Patient Active Problem List Diagnosis Fall, [...] transfer bed to/from chair with (6) Modified Fountain with sliding board or pivot method. By 11-17-2023 Outcome: In progress Goal: Patient will transfer sit to/from stand Description: Patient will transfer sit to/from stand with (6) Modified Fountain By 11-17-2023. Outcome: In progress Problem: Decreased Ambulatory Skills Goal: Improve gait Description: Ambulate 100 meters using Front - wheeled walker with (6) Modified Fountain By 11-17-2023. Outcome: In progress Goal: Improve gait on stairs Description: Ascend/descend 7 +7 stairs using Cane with (6) Modified Fountain .By 11-17-2023 Outcome: In progress Problem: Decreased Functional Motor Skills - PT Goal: Patient demonstrates improved balance Description: Pt to score at least 45/56 Mitchell Balance to indicate decreased risk for falls By 11-17-2023 Outcome: In progress Plan: Discharge to Rehab Facility Physical Therapist: Kasey Ennis, PT Date: 11/17/2023 Pager: [employer] PT Department NESS PERFORMANCE ADVISOR * Discharge non-MD/non-AVERY Summaries - Bill Olivera - 11/16/2023 7:46 AM BUSINESS PERFORMANCE ADVISOR Summary: DC to TCU Care Coordination Discharge Note Expected DC Date: 11/16/2023 Expected DC Time: 9 AM Final Discharge Destination: Destination Coordination complete. Service Provider Selected Services Address Phone Fax Theresa Yusuf, A [facility] Custodial [address] [place] [address] [phone] Summary: Patient has been accepted to continue rehabing at the aforementioned post acute facility. Family onboard with plan. WC ride has been ordered for Fri at 9 am Medical team is aware. They will work writing DC orders. CC faxed DC orders to TCU via [employer]. Medical team is aware any controlled substances must be printed and signed to be sent in physical form to the TCU. Also, [employer] will fax it to TCU temi. Bedside nurse please confirm this is done. A [employer] thread has been started. CC will continue to follow until DC. Please use [employer] for any further questions. NESS PERFORMANCE ADVISOR * Nursing Assessment - Karolyn Jacob RN [...] at bedside and sitting quietly at bedside NESS PERFORMANCE ADVISOR * Nursing Assessment - Lila Gaines, RN [...] Psychosocial Assessment Within Defined Limits except for: NESS PERFORMANCE ADVISOR * Discharge non-MD/non-AVERY Summaries - Nayeli Alvarado, QUALITY ANALYST [facility] - 11/15/2023 4:35 PM CST SPEECH-LANGUAGE PATHOLOGY Discharge Summary 11/15/2023 QUALITY ANALYST Recommendations Discharge Recommendations (QUALITY ANALYST): Post-acute placement recommended. Acute Rehab if meets admission criteria No known barriers to placement Barriers to Discharge (QUALITY ANALYST): NA - Post acute placement is recommended and no barriers to placement known. Post Discharge follow-up (QUALITY ANALYST): QUALITY ANALYST at post-acute placement Recommend PM&R Consult (QUALITY ANALYST): Yes, for assessment of post-acute placement needs. Pt appears to be a candidate for higher intensity rehab services. Diet Recommendation: Current Diet : Regular Current Liquid: Thin liquids Medication Administration: Medications with thin liquid Aspiration Precautions: Upright with all eating and drinking Oral Hygiene: Lefors teeth 2x/day Positioning Techniques: Seat fully upright [...] hemianopsia. EDUCATION Audience: Patient Education: results of assessment;QUALITY ANALYST scope of practice;QUALITY ANALYST plan of care;recommendation for additional therapy Prognosis is good for increasing independence with iADLs. Speech-Language Pathologist: Nayeli Alvarado, QUALITY ANALYST [facility], 11/15/2023 4:35 PM Pager: [phone] NESS PERFORMANCE ADVISOR * Discharge non-MD/non-AVERY Summaries - Sharri Price, OTR/L - 11/15/2023 2:12 PM CST [facility] Occupational Therapy Discharge Summary Lucinda Kennedy [...] subacute rehab. Patient Name: Lucinda Kennedy MR#: [id number] Date of : 1940 Age: 83 y.o. [...] 1400) Prior Level of Function (DIRECTOR OF EMERGENCY NURSING): ADLs/IADLs: No assistance required (Independent or modified [...] goals. Occupational Therapist: [facility] OT Department NESS PERFORMANCE ADVISOR * Nursing Assessment - Dariana Alvarado RN - 11/15/2023 4:49 AM CST Nursing Assessment Head to Toe Head to Toe Assessment Shift Summary Shift [id number]: Pt is alert and oriented to self [...] for: Psychosocial Assessment: Observed Patient Behaviors: Restless NESS PERFORMANCE ADVISOR * Nursing Assessment - Tone Rosario RN [...] for: Psychosocial Assessment: Observed Patient Behaviors: Restless NESS PERFORMANCE ADVISOR * Nursing Assessment - Adelso Huber RN - 11/14/2023 4:30 PM BUSINESS PERFORMANCE ADVISOR Nursing Assessment Head to Toe Head to [...] Behavior: at bedside and attentive to patient NESS PERFORMANCE ADVISOR * Nursing Assessment - Adelso Huber RN - 11/14/2023 10:17 AM BUSINESS PERFORMANCE ADVISOR Nursing Assessment Head to Toe Head to [...] Behavior: at bedside and attentive to patient NESS PERFORMANCE ADVISOR * Nursing Assessment - Luisa Pablo, RN [...] Behavior: at bedside and attentive to patient NESS PERFORMANCE ADVISOR * Nursing Assessment - Sanjuana Reyes, RN [...] patient and participating in care Comments: Spouse NESS PERFORMANCE ADVISOR * Nursing Assessment - Nikole Diego RN [...] Behavior: at bedside and attentive to patient NESS PERFORMANCE ADVISOR * Nursing Assessment - Lila Reed RN [...] 6 Psychosocial Within Defined Limits Comments: present NESS PERFORMANCE ADVISOR * Nursing Assessment - Bianca Bell RN - 11/12/2023 2:17 PM BUSINESS PERFORMANCE ADVISOR Nursing Assessment Head to Toe Head to [...] Emotional State: Acceptance Family Behavior: not present NESS PERFORMANCE ADVISOR * Nursing Assessment - Teresita Vidales RN [...] 1640 -- 5 Psychosocial Within Defined Limits NESS PERFORMANCE ADVISOR * Nursing Assessment - Teresita Vidales RN [...] Emotional State: Acceptance Family Behavior: not present NESS PERFORMANCE ADVISOR * Nursing Assessment - Nikole Diego RN [...] as he expressed her confusion and decline NESS PERFORMANCE ADVISOR * Nursing Assessment - Carolina Awan RN [...] Cardiac Assessment Within Defined Limits except for: Cnc Field Service Engineer - remote telemetry Respiratory Assessment Within Defined [...] 1640 -- 4 Psychosocial Within Defined Limits NESS PERFORMANCE ADVISOR * Nursing Assessment - Carolina Awan RN - 11/10/2023 9:30 PM CST Nursing Assessment Head to Toe Head to Toe Assessment Shift Summary Shift Summary Neurologic/Cognitive Assessment Within Defined Limits except for: Orientation: disoriented to place, disoriented to time and disoriented to situation HEENT Within Defined Limits Cardiac Assessment Within Defined Limits except for: Cnc Field Service Engineer - remote telemetry Respiratory Assessment Within Defined [...] 1640 -- 4 Psychosocial Within Defined Limits NESS PERFORMANCE ADVISOR * Nursing Assessment - Elvira Benitez RN [...] for: Psychosocial Assessment: Verbalized Emotional State: Acceptance NESS PERFORMANCE ADVISOR * Nursing Assessment - Zaira Bellamy, RN [...] Pt stated she is going home today, Rotary Slicing Machine Operator reoriented to POC. Tylenol prn given for [...] for: Psychosocial Assessment: Verbalized Emotional State: Acceptance NESS PERFORMANCE ADVISOR * Nursing Assessment - Quynh Jenkins RN - 11/10/2023 6:46 AM CST Nursing Assessment Head to Toe Head to Toe Assessment Shift Summary Shift Summary Neurologic/Cognitive Assessment Within Defined Limits except for: Orientation: disoriented to place, disoriented to time and disoriented to situation Frequent Neuro Assessments have been documented in the flowsheets HEENT Within Defined Limits Cardiac Assessment Within Defined Limits except for: Cnc Field Service Engineer - remote telemetry Pacemaker: Pacemaker: No Respiratory [...] 1640 -- 3 Psychosocial Within Defined Limits NESS PERFORMANCE ADVISOR * Nursing Assessment - Anita Keating RN [...] Defined Limits except for: Chest Pain: No Cnc Field Service Engineer - remote telemetry Pacemaker: Pacemaker: No Respiratory [...] 3 Psychosocial Within Defined Limits Shift Summary NESS PERFORMANCE ADVISOR * Nursing Assessment - Anita Keating RN - 11/09/2023 11:44 AM CST Nursing Assessment Head to Toe Head to Toe Assessment Shift Summary Neurologic/Cognitive Assessment Within Defined Limits except for: Cognition: poor attention/concentration Level of Consciousness: Lethargic Frequent Neuro Assessments have been documented in the flowsheets HEENT Within Defined Limits Cardiac Assessment Within Defined Limits except for: Chest Pain: No Cnc Field Service Engineer - remote telemetry Pacemaker: Pacemaker: No Respiratory [...] 1640 -- 2 Psychosocial Within Defined Limits NESS PERFORMANCE ADVISOR * Nursing Assessment - Mayte Grover RN [...] Cardiac Assessment Within Defined Limits except for: Cnc Field Service Engineer - remote telemetry Respiratory Assessment Within Defined [...] 1640 -- 2 Psychosocial Within Defined Limits NESS PERFORMANCE ADVISOR * Nursing Assessment - Chucho Blair, RN [...] pivot to commode. Meds whole with water, [id number]-cz-[id number]-time. Otherwise resting between cares with family present. Chucho Blair, RN, 11/08/2023 7:01 PM Neurologic/Cognitive Assessment Within Defined Limits except for: Cognition: poor attention/concentration Level of Consciousness: Lethargic Frequent Neuro Assessments have been documented in the flowsheets HEENT Within Defined Limits Cardiac Assessment Within Defined Limits except for: Cnc Field Service Engineer - remote telemetry Respiratory Assessment Within Defined [...] 1640 -- 2 Psychosocial Within Defined Limits NESS PERFORMANCE ADVISOR * Nursing Assessment - Tone Rosario RN [...] 1640 -- 1 Psychosocial Within Defined Limits NESS PERFORMANCE ADVISOR * Nursing Assessment - Tone Rosario RN [...] 1640 -- 1 Psychosocial Within Defined Limits NESS PERFORMANCE ADVISOR * Nursing Assessment - Chucho Blair, RN [...] Cardiac Assessment Within Defined Limits except for: Cnc Field Service Engineer - remote telemetry Respiratory Assessment Within Defined [...] 1640 -- 1 Psychosocial Within Defined Limits NESS PERFORMANCE ADVISOR * Nursing Assessment - Chucho Blair, RN [...] less than 1 Psychosocial Within Defined Limits NESS PERFORMANCE ADVISOR * Nursing Assessment - Tone Rosario RN [...] less than 1 Psychosocial Within Defined Limits NESS PERFORMANCE ADVISOR * Nursing Assessment - Tone Rosario RN [...] less than 1 Psychosocial Within Defined Limits NESS PERFORMANCE ADVISOR * Nursing Assessment - Chantal Higgins RN [...] less than 1 Psychosocial Within Defined Limits NESS PERFORMANCE ADVISOR * Nursing Assessment - Chantal Higgins RN [...] 0710 -- 1 Psychosocial Within Defined Limits NESS PERFORMANCE ADVISOR * Nursing Assessment - Musa De La Torre RN - 11/06/2023 4:25 AM BUSINESS PERFORMANCE ADVISOR Nursing Assessment Head to Toe Head to [...] Cardiac Assessment Within Defined Limits except for: Cnc Field Service Engineer - remote telemetry Respiratory Within defined limits [...] attentive to patient and interacting with patient NESS PERFORMANCE ADVISOR * Transfer - Musa De La Torre RN - 11/06/2023 12:20 AM CST Images from the original note were not included. TRANSFER IN NOTE D: Patient transferred in to [place] [id number] from [facility] at 2320. Patient condition on arrival: [...] De La Torre RN, 11/06/2023 12:22 AM NESS PERFORMANCE ADVISOR * Nursing Assessment - Derek Marie RN - 11/05/2023 10:33 PM CST Nursing Assessment Head to Toe Head to Toe Assessment Shift Summary Shift Summary Neurologic/Cognitive Assessment Within Defined Limits except for: Cognition: poor judgement/safety awareness Level of Consciousness: Lethargic Arousal Level: Arouses to pain HEENT Assessment Within Defined Limits except for: Cardiac Assessment Within Defined Limits except for: Heart sounds: S1, S2 Cnc Field Service Engineer - bedside telemetry ECG Rhythm: normal sinus [...] interacting with patient and participating in care NESS PERFORMANCE ADVISOR * Nursing Assessment - Eloise Randolph RN - 11/05/2023 8:00 PM CST Nursing Assessment Head to Toe Head to Toe Assessment Shift Summary SHIFT [id number] NEURO - Patient Alert to self, and [...] Cardiac Assessment Within Defined Limits except for: Cnc Field Service Engineer - bedside telemetry ECG Rhythm: normal sinus [...] with patient and sitting quietly at bedside NESS PERFORMANCE ADVISOR * Nursing Assessment - José Urbano RN [...] Cardiac Assessment Within Defined Limits except for: Cnc Field Service Engineer - bedside telemetry Lead Monitored: Lead II ECG Rhythm: normal sinus rhythm TX Interval (sec): 0.16 QRS Interval (sec): 0.13 [...] less than 1 Psychosocial Within Defined Limits NESS PERFORMANCE ADVISOR * Nursing Assessment - Eloise Randolph RN - 11/05/2023 4:00 PM CST Nursing Assessment Head to Toe Head to Toe Assessment Shift Summary Shift Summary Neurologic/Cognitive Assessment Within Defined Limits except for: Arousal Level: Arouses to voice Orientation: disoriented to time and disoriented to situation Mood/Behavior: Calm HEENT Within Defined Limits Cardiac Assessment Within Defined Limits except for: Cnc Field Service Engineer - bedside telemetry ECG Rhythm: normal sinus [...] with patient and sitting quietly at bedside NESS PERFORMANCE ADVISOR * Nursing Assessment - José Urbano RN [...] Cardiac Assessment Within Defined Limits except for: Cnc Field Service Engineer - bedside telemetry Lead Monitored: Lead II ECG Rhythm: normal sinus rhythm TX Interval (sec): 0.16 QRS Interval (sec): 0.13 [...] less than 1 Psychosocial Within Defined Limits NESS PERFORMANCE ADVISOR * Trauma Tertiary Exam - Jesusita Aiken APRN, EMILY - 11/05/2023 7:08 AM CST TRAUMA TERTIARY EXAM - MUD JACK OPERATOR First Exam Lucinda Kennedy : 1940 Sex: [...] of the thoracic or lumbar spine. 2. 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 [email or web address] community [email or web address]/[email or web address].htm 1. In the past year: Have you felt you should cut down on your drinking? no 2. In the past year: Have people annoyed you by criticizing your drinking? no 3. In the past year: Have you felt bad or guilty about your drinking? no 4. In the past year: Have you had an eye coal gasification technician first thing in the morning to [...] CFS >/= 7, consult Palliative Care Consult QUALITY ANALYST for: TBI or Altered Mental Status *If patient meets criteria for an QUALITY ANALYST consult, please order aspiration precautions Mental [...] on guard, watchful, or easily startled? no [place] numb or detached from others, activities, or [...] SAH risk for bleeding Diet: NPO until QUALITY ANALYST eval Activity: Up ad nia C/T/L-Spine status: cleared Weight-bearing status: no restrictions Therapy: PT, OT, OT for cognitive screen, and QUALITY ANALYST Consulting Teams(s) Plan and/or Follow-up Recommendations: [...] recommendations, and To be determined. Jesusita Aiken, BREAD STACKER, EGG BREAKING MACHINE OPERATOR 11/05/2023 07:08 NESS PERFORMANCE ADVISOR * Nursing Assessment - Rafa Tineo RN [...] Cardiac Assessment Within Defined Limits except for: Cnc Field Service Engineer - bedside telemetry Lead Monitored: Lead II [...] Behavior: at bedside and interacting with patient NESS PERFORMANCE ADVISOR * Nursing Assessment - Rafa Tineo RN [...] Cardiac Assessment Within Defined Limits except for: Cnc Field Service Engineer - bedside telemetry Lead Monitored: Lead II [...] Behavior: at bedside and interacting with patient NESS PERFORMANCE ADVISOR * Interdisciplinary Note - Amelia Lobo MD - 11/05/2023 12:16 AM BUSINESS PERFORMANCE ADVISOR Patient oriented to self, date, family and medical history. Discussed code status with patient. Shewishes to be full code accepting of CPR and intubation at this time. Amelia Lobo MD, MPH 11/05/2023 06:17 PGY-5 General Surgery Resident Pager: [phone] or via [employer] NESS PERFORMANCE ADVISOR * Interval Note Provider - Priscilla Holcomb MD - 11/04/2023 11:44 PM BUSINESS PERFORMANCE ADVISOR PROCEDURES I performed the following procedures: Art Line Priscilla Holcomb MD, 11/04/2023 11:44 PM NESS PERFORMANCE ADVISOR * ED Faculty Note - Devin Dougherty [...] placement Devin Dougherty MD, 11/04/2023 11:13 PM NESS PERFORMANCE ADVISOR * ED Stabilization Note - Norm Hernandez [...] Disposition Admit to SICU Signed out to [facility] Procedures I performed the following procedures: Adult Trauma Resuscitation. Norm Hernandez MD, PGY-3 Emergency Medicine Resident NESS PERFORMANCE ADVISOR documented in this encounter Plan of Treatment Scheduled Referrals Name Type Priority Associated Diagnoses Orde r Schedule REFERRAL TO TRAUMATIC BRAIN INJURY Referral Routine Fall, initial encounter SDH (subdural hematoma) (CMS) SAH (subarachnoid hemorrhage) (CMS/HHS) Traumatic brain injury with loss of consciousness, initial encounter ([facility]) Ordered: 11/08/2023 documented as of this encounter Procedures Procedure Name Priority Date/Time Associated Diagnosis Comments PANEL BASIC METABOLIC (BMP) Routine 11/16/2023 7:22 AM BUSINESS PERFORMANCE ADVISOR POC GLUCOSE Routine 11/16/2023 6:58 AM BUSINESS PERFORMANCE ADVISOR POC GLUCOSE Routine 11/15/2023 9:15 PM BUSINESS PERFORMANCE ADVISOR POC GLUCOSE Routine 11/15/2023 4:09 PM BUSINESS PERFORMANCE ADVISOR POC GLUCOSE Routine 11/15/2023 12:46 PM BUSINESS PERFORMANCE ADVISOR PANEL BASIC METABOLIC (BMP) Routine 11/15/2023 7:39 AM BUSINESS PERFORMANCE ADVISOR POC GLUCOSE Routine 11/15/2023 6:11 AM BUSINESS PERFORMANCE ADVISOR POC GLUCOSE Routine 11/14/2023 9:02 PM BUSINESS PERFORMANCE ADVISOR POC GLUCOSE Routine 11/14/2023 4:21 PM BUSINESS PERFORMANCE ADVISOR POC GLUCOSE Routine 11/14/2023 12:19 PM BUSINESS PERFORMANCE ADVISOR PANEL BASIC METABOLIC (BMP) Routine 11/14/2023 8:59 AM BUSINESS PERFORMANCE ADVISOR POC GLUCOSE Routine 11/14/2023 8:11 AM BUSINESS PERFORMANCE ADVISOR POC GLUCOSE Routine 11/13/2023 9:15 PM BUSINESS PERFORMANCE ADVISOR POC GLUCOSE Routine 11/13/2023 4:03 PM BUSINESS PERFORMANCE ADVISOR POC GLUCOSE Routine 11/13/2023 11:21 AM BUSINESS PERFORMANCE ADVISOR PANEL BASIC METABOLIC (BMP) Routine 11/13/2023 6:41 AM BUSINESS PERFORMANCE ADVISOR POC GLUCOSE Routine 11/13/2023 6:31 AM BUSINESS PERFORMANCE ADVISOR POC GLUCOSE Routine 11/12/2023 9:21 PM BUSINESS PERFORMANCE ADVISOR POC GLUCOSE Routine 11/12/2023 4:12 PM BUSINESS PERFORMANCE ADVISOR PANEL BASIC METABOLIC (BMP) Timed 11/12/2023 1:01 PM BUSINESS PERFORMANCE ADVISOR POC GLUCOSE Routine 11/12/2023 12:14 PM BUSINESS PERFORMANCE ADVISOR POC GLUCOSE Routine 11/12/2023 6:09 AM BUSINESS PERFORMANCE ADVISOR POC GLUCOSE Routine 11/11/2023 8:48 PM BUSINESS PERFORMANCE ADVISOR POC GLUCOSE Routine 11/11/2023 4:11 PM BUSINESS PERFORMANCE ADVISOR POC GLUCOSE Routine 11/11/2023 11:47 AM BUSINESS PERFORMANCE ADVISOR PHOSPHORUS Routine 11/11/2023 6:09 AM BUSINESS PERFORMANCE ADVISOR PANEL BASIC METABOLIC (BMP) Routine 11/11/2023 6:09 AM BUSINESS PERFORMANCE ADVISOR MAGNESIUM Routine 11/11/2023 6:09 AM BUSINESS PERFORMANCE ADVISOR TC LAB BLOOD DRAW BY VENIPUNCTURE Routine 11/11/2023 6:09 AM BUSINESS PERFORMANCE ADVISOR POC GLUCOSE Routine 11/10/2023 8:58 PM BUSINESS PERFORMANCE ADVISOR POC GLUCOSE Routine 11/10/2023 4:16 PM BUSINESS PERFORMANCE ADVISOR POC GLUCOSE Routine 11/10/2023 11:15 AM BUSINESS PERFORMANCE ADVISOR PHOSPHORUS Routine 11/10/2023 6:17 AM BUSINESS PERFORMANCE ADVISOR PANEL BASIC METABOLIC (BMP) Routine 11/10/2023 6:17 AM BUSINESS PERFORMANCE ADVISOR MAGNESIUM Routine 11/10/2023 6:17 AM BUSINESS PERFORMANCE ADVISOR PC LAB CBC/PLT Routine 11/10/2023 6:17 AM BUSINESS PERFORMANCE ADVISOR POC GLUCOSE Routine 11/09/2023 9:41 PM BUSINESS PERFORMANCE ADVISOR POC GLUCOSE Routine 11/09/2023 3:58 PM BUSINESS PERFORMANCE ADVISOR ANTI XA ASSAY LMW HEPARIN Timed 11/09/2023 2:18 PM BUSINESS PERFORMANCE ADVISOR POC GLUCOSE Routine 11/09/2023 11:28 AM BUSINESS PERFORMANCE ADVISOR XR FOOT RIGHT 3 V AP/OBL/LAT* Routine 11/09/2023 10:36 AM BUSINESS PERFORMANCE ADVISOR POC GLUCOSE Routine 11/09/2023 5:46 AM BUSINESS PERFORMANCE ADVISOR PC VALPROIC ACID LEVEL DEPAHOTE Routine 11/09/2023 5:41 AM BUSINESS PERFORMANCE ADVISOR PHOSPHORUS Routine 11/09/2023 5:41 AM BUSINESS PERFORMANCE ADVISOR PANEL BASIC METABOLIC (BMP) Routine 11/09/2023 5:41 AM BUSINESS PERFORMANCE ADVISOR MAGNESIUM Routine 11/09/2023 5:41 AM BUSINESS PERFORMANCE ADVISOR PC LAB CBC/PLT Routine 11/09/2023 5:41 AM BUSINESS PERFORMANCE ADVISOR POC GLUCOSE Routine 11/08/2023 8:40 PM BUSINESS PERFORMANCE ADVISOR PHOSPHORUS Routine 11/08/2023 4:20 PM BUSINESS PERFORMANCE ADVISOR PANEL BASIC METABOLIC (BMP) Routine 11/08/2023 4:20 PM BUSINESS PERFORMANCE ADVISOR MAGNESIUM Routine 11/08/2023 4:20 PM BUSINESS PERFORMANCE ADVISOR TC LAB BLOOD DRAW BY VENIPUNCTURE Routine 11/08/2023 4:20 PM BUSINESS PERFORMANCE ADVISOR POC GLUCOSE Routine 11/08/2023 3:56 PM BUSINESS PERFORMANCE ADVISOR POC GLUCOSE Routine 11/08/2023 11:03 AM BUSINESS PERFORMANCE ADVISOR XR CHEST 1 VIEW AP OR PA* Routine 11/08/2023 6:30 AM BUSINESS PERFORMANCE ADVISOR POC GLUCOSE Routine 11/08/2023 6:22 AM BUSINESS PERFORMANCE ADVISOR POC GLUCOSE Routine 11/07/2023 9:34 PM BUSINESS PERFORMANCE ADVISOR POC GLUCOSE Routine 11/07/2023 4:06 PM BUSINESS PERFORMANCE ADVISOR POC GLUCOSE Routine 11/07/2023 11:45 AM BUSINESS PERFORMANCE ADVISOR XR CHEST 2 VIEWS PA + LAT* Routine 11/07/2023 10:07 AM BUSINESS PERFORMANCE ADVISOR PC PROCALCITONIN (PCT) Routine 8:34 AM BUSINESS PERFORMANCE ADVISOR PHOSPHORUS Routine 11/07/2023 8:34 AM BUSINESS PERFORMANCE ADVISOR PANEL BASIC METABOLIC (BMP) Routine 11/07/2023 8:34 AM BUSINESS PERFORMANCE ADVISOR MAGNESIUM Routine 11/07/2023 8:34 AM BUSINESS PERFORMANCE ADVISOR PC LAB CBC/PLT Routine 11/07/2023 8:34 AM BUSINESS PERFORMANCE ADVISOR POC GLUCOSE Routine 11/07/2023 5:45 AM BUSINESS PERFORMANCE ADVISOR POC GLUCOSE Routine 11/06/2023 9:21 PM BUSINESS PERFORMANCE ADVISOR PHOSPHORUS Timed 11/06/2023 1:06 PM BUSINESS PERFORMANCE ADVISOR PANEL BASIC METABOLIC (BMP) Timed 11/06/2023 1:06 PM BUSINESS PERFORMANCE ADVISOR MAGNESIUM Timed 11/06/2023 1:06 PM BUSINESS PERFORMANCE ADVISOR PC GASES,BLOOD,ANY COMB OF PH,PCD2,PO2,CO2,HCO2 Routine 11/06/2023 1:06 PM BUSINESS PERFORMANCE ADVISOR PC LAB CBC/PLT Timed 11/06/2023 1:06 PM BUSINESS PERFORMANCE ADVISOR POC GLUCOSE Routine 11/06/2023 1:04 PM BUSINESS PERFORMANCE ADVISOR POC GLUCOSE Routine 11/06/2023 10:49 AM BUSINESS PERFORMANCE ADVISOR PC MAGNESIUM, SERUM Routine 11/06/2023 6 :31 AM BUSINESS PERFORMANCE ADVISOR PC PHOSPHORUS INORGANIC(PHOSPHATE) Routine 11/06/2023 6:31 AM BUSINESS PERFORMANCE ADVISOR PC LAB CBC/PLT Routine 11/06/2023 6:31 AM BUSINESS PERFORMANCE ADVISOR TC LAB BLOOD DRAW BY VENIPUNCTURE Routine 11/06/2023 6:31 AM BUSINESS PERFORMANCE ADVISOR PROTHROMBIN (PT) & INR Timed 6:31 AM BUSINESS PERFORMANCE ADVISOR PC LAB GLYCOSYLATED HGB Routine 11/06/2023 6:31 AM BUSINESS PERFORMANCE ADVISOR POC GLUCOSE Routine 11/06/2023 5:39 AM BUSINESS PERFORMANCE ADVISOR POC GLUCOSE Routine 11/05/2023 4:54 PM BUSINESS PERFORMANCE ADVISOR MAGNESIUM Routine 11/05/2023 4:48 PM BUSINESS PERFORMANCE ADVISOR POTASSIUM Routine 11/05/2023 4:48 PM BUSINESS PERFORMANCE [address] HEAD NO IV CONTRAST Timed 11:44 AM BUSINESS PERFORMANCE ADVISOR POC GLUCOSE Routine 11/05/2023 11:11 AM BUSINESS PERFORMANCE ADVISOR EKG ADULT (12-LEAD) Routine 11/05/2023 6 :38 AM BUSINESS PERFORMANCE ADVISOR POC GLUCOSE Routine 11/05/2023 6:07 AM BUSINESS PERFORMANCE [address] HEAD NO IV CONTRAST Timed 4:54 AM BUSINESS PERFORMANCE ADVISOR PC MAGNESIUM, SERUM Routine 11/05/2023 4 :27 AM BUSINESS PERFORMANCE ADVISOR PC PHOSPHORUS INORGANIC(PHOSPHATE) Routine 11/05/2023 4:27 AM BUSINESS PERFORMANCE ADVISOR PC GASES,BLOOD,ANY COMB OF PH,PCD2,PO2,CO2,HCO2 Routine 11/05/2023 4:27 AM BUSINESS PERFORMANCE ADVISOR PC LAB CBC/PLT Routine 11/05/2023 4:27 AM BUSINESS PERFORMANCE ADVISOR TC LAB BLOOD DRAW BY VENIPUNCTURE Routine 11/05/2023 4:27 AM BUSINESS PERFORMANCE ADVISOR PC TROPONIN QUANTITATIVE Timed 11/05/2023 4:27 AM BUSINESS PERFORMANCE ADVISOR PROTHROMBIN (PT) & INR Timed 4:27 AM BUSINESS PERFORMANCE ADVISOR PC TROPONIN QUANTITATIVE Timed 11/05/2023 2:58 AM BUSINESS PERFORMANCE ADVISOR PROTHROMBIN (PT) & INR STAT 1:32 AM BUSINESS PERFORMANCE ADVISOR PHOSPHORUS STAT 11/05/2023 1:32 AM BUSINESS PERFORMANCE ADVISOR PANEL BASIC METABOLIC (BMP) STAT 11/05/2023 1:32 AM BUSINESS PERFORMANCE ADVISOR MAGNESIUM STAT 11/05/2023 1:32 AM BUSINESS PERFORMANCE ADVISOR PANEL HEPATIC FUNCTION STAT 1:32 AM BUSINESS PERFORMANCE ADVISOR FIBRINOGEN STAT 11/05/2023 1:32 AM BUSINESS PERFORMANCE ADVISOR CK, TOTAL STAT 11/05/2023 1:32 AM BUSINESS PERFORMANCE ADVISOR PC LAB CBC/PLT STAT 11/05/2023 1:32 AM BUSINESS PERFORMANCE ADVISOR PC LAB PTT STAT 11/05/2023 1:32 AM BUSINESS PERFORMANCE ADVISOR PC TROPONIN QUANTITATIVE Timed 11/05/2023 1:18 AM BUSINESS PERFORMANCE ADVISOR PC LACTATE (LACTIC ACID) STAT 11/05/2023 1:18 AM BUSINESS PERFORMANCE ADVISOR PC IONIZED,CALCIUM STAT 11/05/2023 1: 18 AM BUSINESS PERFORMANCE ADVISOR PC GASES,BLOOD,ANY COMB OF PH,PCD2,PO2,CO2,HCO2 STAT 11/05/2023 1:18 AM BUSINESS PERFORMANCE ADVIS[address] CT HEAD-NECK - ANGIO - W/IV CON STAT 11/05/2023 12:09 AM BUSINESS PERFORMANCE ADVISOR PC LAB COMPLETE UA STAT 11/04/2023 11 :55 PM BUSINESS PERFORMANCE ADVISOR PF INSERT CATH,ART,PERCUT,SANTA ERM Routine 11/04/2023 11:43 PM BUSINESS PERFORMANCE ADVISOR ED EKG (12-LEAD) Routine 11/04/2023 11:2 5 [address] PERFORMANCE [address] SPINE THORACIC NO IV CON STAT 11/04/2023 11:05 PM BUSINESS PERFORMANCE ADVISOR CT SPINE LUMBAR NO IV CON STAT 11/04/2023 11:05 PM BUSINESS PERFORMANCE ADVISOR CT SPINE CERVICAL NO IV CON STAT 11/04/2023 11:05 PM BUSINESS PERFORMANCE ADVISOR CT HEAD NO IV CONTRAST STAT 11:05 PM BUSINESS PERFORMANCE ADVISOR CT CHEST/ABD/PELVIS W/IV CONT STAT 11/04/2023 11:05 PM BUSINESS PERFORMANCE ADVISOR XR CHEST 1 VIEW AP OR PA* STAT 11/04/2023 10:57 PM BUSINESS PERFORMANCE ADVISOR PC ELECTROLYTES PANEL STAT 11/04/2023 10:48 PM BUSINESS PERFORMANCE ADVISOR TC LAB ER STAT TOTAL HGB STAT 11/04/2023 10:48 PM BUSINESS PERFORMANCE ADVISOR PC LAB ED INR STAT 11/04/2023 10:45 PM BUSINESS PERFORMANCE ADVISOR TC LAB BLOOD DRAW BY VENIPUNCTURE Routine 11/04/2023 10:45 PM BUSINESS PERFORMANCE ADVISOR EXTRA TUBE - SST Routine 11/04/2023 10:4 5 PM BUSINESS PERFORMANCE ADVISOR PC TROPONIN QUANTITATIVE STAT 11/04/2023 10:45 PM BUSINESS PERFORMANCE ADVISOR PC LAB CBC W/DIFF & PLT STAT 11/04/2023 10:45 PM BUSINESS PERFORMANCE ADVISOR PRECAUTIONARY TUBE STAT 11/04/2023 10 :45 PM BUSINESS PERFORMANCE ADVISOR PC LACTATE (LACTIC ACID) STAT 11/04/2023 10:45 PM BUSINESS PERFORMANCE ADVISOR PC GASES,BLOOD,ANY COMB OF PH,PCD2,PO2,CO2,HCO2 STAT 11/04/2023 10:45 PM BUSINESS PERFORMANCE ADVISOR FIBRINOGEN STAT 11/04/2023 10:45 PM BUSINESS PERFORMANCE ADVISOR PC HEPARIN ASSAY STAT 11/04/2023 10:4 5 PM BUSINESS PERFORMANCE ADVISOR PC LAB PTT STAT 11/04/2023 10:45 PM BUSINESS PERFORMANCE ADVISOR ED US CRITICAL CARE STAT 11/04/2023 1 0:40 PM BUSINESS PERFORMANCE ADVISOR documented in this encounter Results * (ABNORMAL) PANEL BASIC METABOLIC (BMP) (11/16/2023 7:22 AM BUSINESS PERFORMANCE ADVISOR) Sodium 143 135 - 148 mEq/L [facility] Potassium 3.9 3.5 - 5.3 mEq/L [facility] Chloride 105 92 - 108 mEq/L [facility] CO2 27 22 - 30 mEq/L [facility] AnGap 11 8 - 16 mEq/L [facility] Glucose 87 70 - 100 mg/dL [facility] BUN 23 8 - 23 mg/dL [facility] Creatinine 1.19(H) 0.50 - 1.00 mg/dL [facility] Calcium 9.4 8.8 - 10.2 mg/dL [facility] eGFR (2020 CKD-EPI) 46(L) >=60 ml/min/1.7 3m2 [facility] Comment: The estimated glomerular filtration rate (eGFR) was calculated using the CKD-EPI 2020 creatinine equation, which does not include race as a factor. This equation is validated in individuals 18 years of age and older, and eGFR is normalized to a body surface area of 1.73m^2. Blood 11/16/2023 7:22 AM BUSINESS PERFORMANCE ADVISOR 11/16/2023 7:43 AM BUSINESS PERFORMANCE ADVISOR Jesusita Aiken APRN, EMILY LABORATO RY Performing Organization Address City/[facility]/ZIP Co de Phone Number [facility] [place] [address] * POC GLUCOSE (11/16/2023 6:58 AM BUSINESS PERFORMANCE ADVISOR) POC Glucose 84 70 - 100 mg/dL [facility] Blood 11/16/2023 6:58 AM BUSINESS PERFORMANCE ADVISOR Devin Dougherty MD LABORATORY Performing Organization Address City/[facility]/ZIP Co de Phone Number [facility] [address] [place] [address], [place] * POC GLUCOSE (11/15/2023 9:15 PM BUSINESS PERFORMANCE ADVISOR) POC Glucose 83 70 - 100 mg/dL [facility] Blood 11/15/2023 9:15 PM BUSINESS PERFORMANCE ADVISOR Devin Dougherty MD LABORATORY Performing Organization Address City/[facility]/ZIP Co de Phone Number [facility] [address] [place] [address], [place] * POC GLUCOSE (11/15/2023 4:09 PM BUSINESS PERFORMANCE ADVISOR) POC Glucose 91 70 - 100 mg/dL [facility] Blood 11/15/2023 4:09 PM BUSINESS PERFORMANCE ADVISOR Devin Dougherty MD LABORATORY Performing Organization Address City/[facility] Co de Phone Number [facility] [address] [place] [address], [place] * POC GLUCOSE (11/15/2023 12:46 PM BUSINESS PERFORMANCE ADVISOR) POC Glucose 88 70 - 100 mg/dL [facility] Blood 11/15/2023 12:4 6 PM BUSINESS PERFORMANCE ADVISOR Devin Dougherty MD LABORATORY Performing Organization Address City/[facility] Co de Phone Number [facility] [address] [place] [address], [place] * PANEL BASIC METABOLIC (BMP) (11/15/2023 7:39 AM BUSINESS PERFORMANCE ADVISOR) CO2 27 22 - 30 mEq/L [facility] Glucose 96 70 - 100 mg/dL [facility] BUN 20 8 - 23 mg/dL [facility] Creatinine 0.89 0.50 - 1.00 mg/dL [facility] Calcium 9.4 8.8 - 10.2 mg/dL [facility] Sodium 142 135 - 148 mEq/L [facility] Potassium 3.7 3.5 - 5.3 mEq/L [facility] Chloride 104 92 - 108 mEq/L [facility] eGFR (2020 CKD-EPI) 65 >=60 ml/min/1.7 3m2 [facility] Comment: The estimated glomerular filtration rate (eGFR) was calculated using the CKD-EPI 2020 creatinine equation, which does not include race as a factor. This equation is validated in individuals 18 years of age and older, and eGFR is normalized to a body surface area of 1.73m^2. AnGap 11 8 - 16 mEq/L [facility] Blood 11/15/2023 7:39 AM BUSINESS PERFORMANCE ADVISOR 11/15/2023 8:31 AM BUSINESS PERFORMANCE ADVISOR Jesusita Aiken APRN, EGG BREAKING MACHINE OPERATOR LABORATO RY [facility] [place] [address] * (ABNORMAL) POC GLUCOSE (11/15/2023 6:11 AM BUSINESS PERFORMANCE ADVISOR) POC Glucose 105(H) 70 - 100 mg/dL [facility] Blood 11/15/2023 6:11 AM BUSINESS PERFORMANCE ADVISOR Devin Dougherty MD LABORATORY Performing Organization Address City/[facility] Co de Phone Number [facility] [place] [phone], [place] * (ABNORMAL) POC GLUCOSE (11/14/2023 9:02 PM BUSINESS PERFORMANCE ADVISOR) POC Glucose 168(H) 70 - 100 mg/dL [facility] Blood 11/14/2023 9:02 PM BUSINESS PERFORMANCE ADVISOR Devin Dougherty MD LABORATORY Performing Organization Address City/[facility] Co de Phone Number [facility] [address] [place] [address], [place] * (ABNORMAL) POC GLUCOSE (11/14/2023 4:21 PM BUSINESS PERFORMANCE ADVISOR) POC Glucose 128(H) 70 - 100 mg/dL [facility] Blood 11/14/2023 4:21 PM BUSINESS PERFORMANCE ADVISOR Devin Dougherty MD LABORATORY Performing Organization Address City/[facility] Co de Phone Number [facility] [address] [place] [address], [place] * POC GLUCOSE (11/14/2023 12:19 PM BUSINESS PERFORMANCE ADVISOR) POC Glucose 84 70 - 100 mg/dL [facility] Blood 11/14/2023 12:1 9 PM BUSINESS PERFORMANCE ADVISOR Devin Dougherty MD LABORATORY Performing Organization Address City/[facility] Co de Phone Number [facility] [address] [place] [address], [place] * (ABNORMAL) PANEL BASIC METABOLIC (BMP) (11/14/2023 8:59 AM BUSINESS PERFORMANCE ADVISOR) CO2 28 22 - 30 mEq/L [facility] Glucose 158(H) 70 - 100 mg/dL [facility] BUN 19 8 - 23 mg/dL [facility] Creatinine 0.79 0.50 - 1.00 mg/dL [facility] Calcium 9.3 8.8 - 10.2 mg/dL [facility] eGFR (2020 CKD-EPI) 75 >=60 ml/min/1.7 3m2 [facility] Comment: The estimated glomerular filtration rate (eGFR) was calculated using the CKD-EPI 2020 creatinine equation, which does not include race as a factor. This equation is validated in individuals 18 years of age and older, and eGFR is normalized to a body surface area of 1.73m^2. Sodium 142 135 - 148 mEq/L [facility] Potassium 3.8 3.5 - 5.3 mEq/L [facility] Chloride 103 92 - 108 mEq/L [facility] AnGap 11 8 - 16 mEq/L [facility] Blood 11/14/2023 8:59 AM BUSINESS PERFORMANCE ADVISOR 11/14/2023 9:21 AM BUSINESS PERFORMANCE ADVISOR Jesusita Aiken APRN, EGG BREAKING MACHINE OPERATOR LABORATO RY [facility] [address] [place] [phone] * (ABNORMAL) POC GLUCOSE (11/14/2023 8:11 AM BUSINESS PERFORMANCE ADVISOR) POC Glucose 139(H) 70 - 100 mg/dL [facility] Blood 11/14/2023 8:11 AM BUSINESS PERFORMANCE ADVISOR Devin Dougherty MD LABORATORY [facility] [address] [place] [phone], [place] * (ABNORMAL) POC GLUCOSE (11/13/2023 9:15 PM BUSINESS PERFORMANCE ADVISOR) POC Glucose 120(H) 70 - 100 mg/dL [facility] Blood 11/13/2023 9:15 PM BUSINESS PERFORMANCE ADVISOR Devin Dougherty MD LABORATORY Performing Organization Address City/[facility] Co de Phone Number [facility] POINT OF [address] [address], [place] * (ABNORMAL) POC GLUCOSE (11/13/2023 4:03 PM BUSINESS PERFORMANCE ADVISOR) POC Glucose 169(H) 70 - 100 mg/dL [facility] Blood 11/13/2023 4:03 PM BUSINESS PERFORMANCE ADVISOR Devin Dougherty MD LABORATORY [facility] [address] [place] [phone], [place] * (ABNORMAL) POC GLUCOSE (11/13/2023 11:21 AM BUSINESS PERFORMANCE ADVISOR) POC Glucose 166(H) 70 - 100 mg/dL [facility] Blood 11/13/2023 11:2 1 AM BUSINESS PERFORMANCE ADVISOR Devin Dougherty MD LABORATORY Performing Organization Address [facility] Co de Phone Number [facility] [address] [place] [address] * (ABNORMAL) PANEL BASIC METABOLIC (BMP) (11/13/2023 6:41 AM BUSINESS PERFORMANCE ADVISOR) CO2 30 22 - 30 mEq/L [facility] Glucose 121(H) 70 - 100 mg/dL [facility] BUN 24(H) 8 - 23 mg/dL [facility] Creatinine 0.87 0.50 - 1.00 mg/dL [facility] Calcium 8.9 8.8 - 10.2 mg/dL [facility] Sodium 143 135 - 148 mEq/L [facility] Potassium 3.0(L) 3.5 - 5.3 mEq/L [facility] Chloride 103 92 - 108 mEq/L [facility] eGFR (2020 CKD-EPI) 67 >=60 ml/min/1.7 3m2 [facility] Comment: The estimated glomerular filtration rate (eGFR) was calculated using the CKD-EPI 2020 creatinine equation, which does not include race as a factor. This equation is validated in individuals 18 years of age and older, and eGFR is normalized to a body surface area of 1.73m^2. AnGap 10 8 - 16 mEq/L [facility] Blood 11/13/2023 6:41 AM BUSINESS PERFORMANCE ADVISOR 11/13/2023 7:37 AM BUSINESS PERFORMANCE ADVISOR Quinn Covarrubias MD LABORATORY Performing Organization Address [facility] Co de Phone Number [facility] [place] [address] * (ABNORMAL) POC GLUCOSE (11/13/2023 6:31 AM BUSINESS PERFORMANCE ADVISOR) POC Glucose 128(H) 70 - 100 mg/dL [facility] Blood 11/13/2023 6:31 AM BUSINESS PERFORMANCE ADVISOR Devin Dougherty MD LABORATORY Performing Organization Address City/[facility]/ZIP Co de Phone Number [facility] [address] [place] [phone], [place] * POC GLUCOSE (11/12/2023 9:21 PM BUSINESS PERFORMANCE ADVISOR) [facility] POC Glucose 97 70 - 100 mg/dL [facility] Comment:R2 <=% Blood 11/12/2023 9:21 PM BUSINESS PERFORMANCE ADVISOR Devin Dougherty MD LABORATORY Performing Organization Address [facility] Co de Phone Number [facility] [address] [place] [address], [place] * POC GLUCOSE (11/12/2023 4:12 PM BUSINESS PERFORMANCE ADVISOR) [facility] POC Glucose 89 70 - 100 mg/dL [facility] Blood 11/12/2023 4:12 PM BUSINESS PERFORMANCE ADVISOR Devin Dougherty MD LABORATORY Performing Organization Address [facility] Co de Phone Number [facility] [address] [place] [address], [place] * (ABNORMAL) PANEL BASIC METABOLIC (BMP) (11/12/2023 1:01 PM BUSINESS PERFORMANCE ADVISOR) [facility] Sodium 144 135 - 148 mEq/L [facility] Potassium 3.4(L) 3.5 - 5.3 mEq/L [facility] Chloride 104 92 - 108 mEq/L [facility] CO2 31(H) 22 - 30 mEq/L [facility] AnGap 9 8 - 16 mEq/L [facility] Glucose 118(H) 70 - 100 mg/dL [facility] BUN 29(H) 8 - 23 mg/dL [facility] Creatinine 0.92 0.50 - 1.00 mg/dL [facility] Calcium 9.3 8.8 - 10.2 mg/dL [facility] eGFR (2020 CKD-EPI) 63 >=60 ml/min/1.7 3m2 [facility] Comment: The estimated glomerular filtration rate (eGFR) was calculated using the CKD-EPI 2020 creatinine equation, which does not include race as a factor. This equation is validated in individuals 18 years of age and older, and eGFR is normalized to a body surface area of 1.73m^2. Blood 11/12/2023 1:01 PM BUSINESS PERFORMANCE ADVISOR 11/12/2023 1:44 PM BUSINESS PERFORMANCE ADVISOR Quinn Covarrubias MD LABORATORY [facility] [address] [place] [address] * (ABNORMAL) POC GLUCOSE (11/12/2023 12:14 PM BUSINESS PERFORMANCE ADVISOR) POC Glucose 117(H) 70 - 100 mg/dL [facility] Blood 11/12/2023 12:1 4 PM BUSINESS PERFORMANCE ADVISOR Devin Dougherty MD LABORATORY Performing Organization Address City/[facility]/ZIP Co de Phone Number [facility] [address] [place] [address], [place] * POC GLUCOSE (11/12/2023 6:09 AM BUSINESS PERFORMANCE ADVISOR) POC Glucose 80 70 - 100 mg/dL [facility] Blood 11/12/2023 6:09 AM BUSINESS PERFORMANCE ADVISOR Devin Dougherty MD LABORATORY Performing Organization Address City/[facility]/ZIP Co de Phone Number [facility] [address] [place] [address], [place] * POC GLUCOSE (11/11/2023 8:48 PM BUSINESS PERFORMANCE ADVISOR) POC Glucose 99 70 - 100 mg/dL [facility] Blood 11/11/2023 8:48 PM BUSINESS PERFORMANCE ADVISOR Devin Dougherty MD LABORATORY [facility] [address] [place] [address], [place] * POC GLUCOSE (11/11/2023 4:11 PM BUSINESS PERFORMANCE ADVISOR) POC Glucose 93 70 - 100 mg/dL [facility] Blood 11/11/2023 4:11 PM BUSINESS PERFORMANCE ADVISOR Devin Dougherty MD LABORATORY Performing Organization Address City/[facility]/ZIP Co de Phone Number [facility] [address] [place] [phone], [place] * POC GLUCOSE (11/11/2023 11:47 AM BUSINESS PERFORMANCE ADVISOR) Pathologist [facility] POC Glucose 89 70 - 100 mg/dL [facility] Blood 11/11/2023 11:4 7 AM BUSINESS PERFORMANCE ADVISOR Devin Dougherty MD LABORATORY Performing Organization Address City/[facility] Co de Phone Number [facility] [address] [place] [phone], [place] * PHOSPHORUS (11/11/2023 6:09 AM BUSINESS PERFORMANCE ADVISOR) Pathologist [facility] Phosphorus 3.5 2.5 - 4.5 mg/dL [facility] Blood 11/11/2023 6:09 AM BUSINESS PERFORMANCE ADVISOR 11/11/2023 6:36 AM BUSINESS PERFORMANCE ADVISOR Quinn Covarrubias MD LABORATORY Performing Organization Address City/[facility] Co de Phone Number [facility] [address] [address] * (ABNORMAL) PANEL BASIC METABOLIC (BMP) (11/11/2023 6:09 AM BUSINESS PERFORMANCE ADVISOR) Pathologist [facility] Sodium 143 135 - 148 mEq/L [facility] Potassium 3.3(L) 3.5 - 5.3 mEq/L [facility] Chloride 106 92 - 108 mEq/L [facility] AnGap 8 8 - 16 mEq/L [facility] CO2 29 22 - 30 mEq/L [facility] Glucose 79 70 - 100 mg/dL [facility] BUN 30(H) 8 - 23 mg/dL [facility] Creatinine 0.83 0.50 - 1.00 mg/dL [facility] Calcium 9.0 8.8 - 10.2 mg/dL [facility] eGFR (2020 CKD-EPI) 71 >=60 ml/min/1.7 3m2 [facility] Comment: The estimated glomerular filtration rate (eGFR) was calculated using the CKD-EPI 2020 creatinine equation, which does not include race as a factor. This equation is validated in individuals 18 years of age and older, and eGFR is normalized to a body surface area of 1.73m^2. Blood 11/11/2023 6:09 AM BUSINESS PERFORMANCE ADVISOR 11/11/2023 6:36 AM BUSINESS PERFORMANCE ADVISOR Quinn Covarrubias MD LABORATORY Performing Organization Address City/[facility] Co de Phone Number [facility] [address] [address] * MAGNESIUM (11/11/2023 6:09 AM BUSINESS PERFORMANCE ADVISOR) Pathologist [facility] Magnesium 2.2 1.6 - 2.4 mg/dL [facility] Blood 11/11/2023 6:09 AM BUSINESS PERFORMANCE ADVISOR 11/11/2023 6:36 AM BUSINESS PERFORMANCE ADVISOR Quinn Covarrubias MD LABORATORY Performing Organization Address [facility] Co de Phone Number [facility] [address] [address] * (ABNORMAL) CBC WITH PLATELET (11/11/2023 6:09 AM BUSINESS PERFORMANCE ADVISOR) WBC 5.60 4.00 - 10.00 k/cmm [facility] RBC 3.80(L) 3.90 - 5.20 m/cmm [facility] Hgb 9.5(L) 11.5 - 15.7 g/dL [facility] Hematocrit 31.4(L) 34.0 - 45.0 % [facility] MCV 82.6 80.0 - 100.0 fL [facility] MCH 25.0 25.0 - 32.0 pg [facility] MCHC 30.3(L) 31.0 - 36.0 g/dL [facility] RDW 16.1(H) 11.5 - 14.5 % [facility] Plt 275 150 - 400 k/cmm [facility] MPV 11.8 6.5 - 12.5 fL [facility] Blood 11/11/2023 6:09 AM BUSINESS PERFORMANCE ADVISOR 11/11/2023 6:36 AM BUSINESS PERFORMANCE ADVISOR Quinn Covarrubias MD LABORATORY [facility] [address] [place] [address] * POC GLUCOSE (11/10/2023 8:58 PM BUSINESS PERFORMANCE ADVISOR) POC Glucose 82 70 - 100 mg/dL [facility] Blood 11/10/2023 8:58 PM BUSINESS PERFORMANCE ADVISOR Devin Dougherty MD LABORATORY Performing Organization Address City/[facility]/ZIP Co de Phone Number [facility] [address] [place] [phone], [place] * (ABNORMAL) POC GLUCOSE (11/10/2023 4:16 PM BUSINESS PERFORMANCE ADVISOR) POC Glucose 110(H) 70 - 100 mg/dL [facility] POINT OF CARE Blood 11/10/2023 4:16 PM BUSINESS PERFORMANCE ADVISOR Devin Dougherty MD LABORATORY Performing Organization Address [facility] Co de Phone Number [facility] POINT OF [facility] [address] [place] [address], [place] * POC GLUCOSE (11/10/2023 11:15 AM BUSINESS PERFORMANCE ADVISOR) POC Glucose 93 70 - 100 mg/dL [facility] POINT [facility] CARE Blood 11/10/2023 11:1 5 AM BUSINESS PERFORMANCE ADVISOR Devin Dougherty MD LABORATORY [facility] POINT CARE [address] [place] [address], [place] * PHOSPHORUS (11/10/2023 6:17 AM BUSINESS PERFORMANCE ADVISOR) Phosphorus 3.8 2.5 - 4.5 mg/dL [facility] Blood 11/10/2023 6:17 AM BUSINESS PERFORMANCE ADVISOR 11/10/2023 6:32 AM BUSINESS PERFORMANCE ADVISOR Quinn Covarrubias MD LABORATORY Performing Organization Address City/[facility] Co de Phone Number [facility] [address] [address] * (ABNORMAL) PANEL BASIC METABOLIC (BMP) (11/10/2023 6:17 AM BUSINESS PERFORMANCE ADVISOR) Sodium 145 135 - 148 mEq/L [facility] Potassium 3.6 3.5 - 5.3 mEq/L [facility] Chloride 107 92 - 108 mEq/L [facility] CO2 27 22 - 30 mEq/L [facility] Glucose 109(H) 70 - 100 mg/dL [facility] BUN 40(H) 8 - 23 mg/dL [facility] Creatinine 1.15(H) 0.50 - 1.00 mg/dL [facility] Calcium 9.1 8.8 - 10.2 mg/dL [facility] AnGap 11 8 - 16 mEq/L [facility] eGFR (2020 CKD-EPI) 48(L) >=60 ml/min/1.7 3m2 [facility] Comment: The estimated glomerular filtration rate (eGFR) was calculated using the CKD-EPI 2020 creatinine equation, which does not include race as a factor. This equation is validated in individuals 18 years of age and older, and eGFR is normalized to a body surface area of 1.73m^2. Blood 11/10/2023 6:17 AM BUSINESS PERFORMANCE ADVISOR 11/10/2023 6:32 AM BUSINESS PERFORMANCE ADVISOR Quinn Covarrubias MD LABORATORY Performing Organization Address City/[facility]/ZIP Co de Phone Number [facility] [address] [address] * MAGNESIUM (11/10/2023 6:17 AM BUSINESS PERFORMANCE ADVISOR) Magnesium 2.3 1.6 - 2.4 mg/dL [facility] Blood 11/10/2023 6:17 AM BUSINESS PERFORMANCE ADVISOR 11/10/2023 6:32 AM BUSINESS PERFORMANCE ADVISOR Quinn Covarrubias MD LABORATORY Performing Organization Address City/[facility]/ZIP Co de Phone Number [facility] [address] [address] * (ABNORMAL) CBC WITH PLATELET (11/10/2023 6:17 AM BUSINESS PERFORMANCE ADVISOR) Pathologist [facility] WBC 6.82 4.00 - 10.00 k/cmm [facility] RBC 3.64(L) 3.90 - 5.20 m/cmm [facility] Hgb 9.1(L) 11.5 - 15.7 g/dL [facility] Hematocrit 30.3(L) 34.0 - 45.0 % [facility] MCV 83.2 80.0 - 100.0 fL [facility] MCH 25.0 25.0 - 32.0 pg [facility] MCHC 30.0(L) 31.0 - 36.0 g/dL [facility] RDW 16.1(H) 11.5 - 14.5 % [facility] Plt 259 150 - 400 k/cmm [facility] MPV 11.8 6.5 - 12.5 fL [facility] Blood 11/10/2023 6:17 AM BUSINESS PERFORMANCE ADVISOR 11/10/2023 6:32 AM BUSINESS PERFORMANCE ADVISOR Quinn Covarrubias MD LABORATORY Performing Organization Address [facility]/ZIP Co de Phone Number [facility] [address] [address] * (ABNORMAL) POC GLUCOSE (11/09/2023 9:41 PM BUSINESS PERFORMANCE ADVISOR) Pathologist [facility] POC Glucose 136(H) 70 - 100 mg/dL [facility] POINT OF CARE Blood 11/09/2023 9:41 PM BUSINESS PERFORMANCE ADVISOR Devin Dougherty MD LABORATORY [facility] POINT OF CARE [address] [place] [phone], [place] * (ABNORMAL) POC GLUCOSE (11/09/2023 3:58 PM BUSINESS PERFORMANCE ADVISOR) Pathologist [facility] POC Glucose 157(H) 70 - 100 mg/dL [facility] POINT OF CARE Blood 11/09/2023 3:58 PM BUSINESS PERFORMANCE ADVISOR Devin Dougherty MD LABORATORY Performing Organization Address [facility] Co de Phone Number [facility] POINT OF [facility] [address] [place] [phone], [place] * ANTI XA ASSAY LMW HEPARIN (11/09/2023 2:18 PM BUSINESS PERFORMANCE ADVISOR) Anti XA LMW 0.32 IU/mL [facility] Comment: Anti Xa Assay LMW Heparin Therapeutic Ranges: 0.4-1.1 IU/mL for twice daily 1.0-2.0 IU/mL for once daily Blood 11/09/2023 2:18 PM BUSINESS PERFORMANCE ADVISOR 11/09/2023 2:29 PM BUSINESS PERFORMANCE ADVISOR Quinn Covarrubias MD LABORATORY Performing Organization Address [facility] Co de Phone Number [facility] [address] [address] * (ABNORMAL) POC GLUCOSE (11/09/2023 11:28 AM BUSINESS PERFORMANCE ADVISOR) POC Glucose 174(H) 70 - 100 mg/dL [facility] POINT OF CARE Blood 11/09/2023 11:2 8 AM BUSINESS PERFORMANCE ADVISOR Devin Dougherty MD LABORATORY Performing Organization Address [facility] Co de Phone Number [facility] POINT OF CARE [address] [place] [phone], [place] * XR FOOT RIGHT 3 V AP/OBL/LAT* (11/09/2023 10:36 AM BUSINESS PERFORMANCE ADVISOR) Anatomical Region Laterality Modality Foot Computed Radiogr aphy 11/09/2023 10:4 7 AM BUSINESS PERFORMANCE ADVISOR Impressions 11/09/2023 10:50 AM BUSINESS PERFORMANCE ADVISOR Impression: No acute osseous abnormality. Generalized osteopenia. Reading Radiologist: Angela Camp Narrative 11/09/2023 10:50 AM BUSINESS PERFORMANCE ADVISOR Technique: XR FOOT RIGHT 3 V AP/OBL/LAT* [...] osteopenia. Reading Radiologist: Angela Camp Jesusita Aiken BREAD STACKER, EGG BREAKING MACHINE OPERATOR RAD XRAY * POC GLUCOSE (11/09/2023 5:46 AM BUSINESS PERFORMANCE ADVISOR) [facility] Signature POC Glucose 97 70 - 100 mg/dL [facility]ARE Blood 11/09/2023 5:46 AM BUSINESS PERFORMANCE ADVISOR Devin Dougherty MD LABORATORY Performing Organization Address City/[facility]/ZIP Co de Phone Number [facility] [address] [place] [address] * (ABNORMAL) VALPROATE (DEPAKOTE) LEVEL (11/09/2023 5:41 AM BUSINESS PERFORMANCE ADVISOR) Valproate 31.8(L) 50.0 - 100.0 mcg/mL [facility] Blood 11/09/2023 5:41 AM BUSINESS PERFORMANCE ADVISOR 11/09/2023 8:19 AM BUSINESS PERFORMANCE ADVISOR Quinn Covarrubias MD LABORATORY [facility] [place] [address] * PHOSPHORUS (11/09/2023 5:41 AM BUSINESS PERFORMANCE ADVISOR) Phosphorus 3.9 2.5 - 4.5 mg/dL [facility] Blood 11/09/2023 5:41 AM BUSINESS PERFORMANCE ADVISOR 11/09/2023 6:38 AM BUSINESS PERFORMANCE ADVISOR Quinn Covarrubias MD LABORATORY Performing Organization Address [facility] Co de Phone Number [facility] [address] [address] * (ABNORMAL) PANEL BASIC METABOLIC (BMP) (11/09/2023 5:41 AM BUSINESS PERFORMANCE ADVISOR) Sodium 142 135 - 148 mEq/L [facility] Potassium 3.1(L) 3.5 - 5.3 mEq/L [facility] Chloride 105 92 - 108 mEq/L [facility] CO2 30 22 - 30 mEq/L [facility] Glucose 91 70 - 100 mg/dL [facility] BUN 23 8 - 23 mg/dL [facility] Creatinine 1.09(H) 0.50 - 1.00 mg/dL [facility] Calcium 8.8 8.8 - 10.2 mg/dL [facility] AnGap 7(L) 8 - 16 mEq/L [facility] eGFR (2020 CKD-EPI) 51(L) >=60 ml/min/1.7 3m2 [facility] Comment: The estimated glomerular filtration rate (eGFR) was calculated using the CKD-EPI 2020 creatinine equation, which does not include race as a factor. This equation is validated in individuals 18 years of age and older, and eGFR is normalized to a body surface area of 1.73m^2. Blood 11/09/2023 5:41 AM BUSINESS PERFORMANCE ADVISOR 11/09/2023 6:38 AM BUSINESS PERFORMANCE ADVISOR Quinn Covarrubias MD LABORATORY Performing Organization Address [facility] Co de Phone Number [facility] [address] [address] * MAGNESIUM (11/09/2023 5:41 AM BUSINESS PERFORMANCE ADVISOR) Magnesium 2.1 1.6 - 2.4 mg/dL [facility] Blood 11/09/2023 5:41 AM BUSINESS PERFORMANCE ADVISOR 11/09/2023 6:38 AM BUSINESS PERFORMANCE ADVISOR Quinn Covarrubias MD LABORATORY Performing Organization Address [facility] Co de Phone Number [facility] [address] [address] * (ABNORMAL) CBC WITH PLATELET (11/09/2023 5:41 AM BUSINESS PERFORMANCE ADVISOR) Pathologist [facility] WBC 6.97 4.00 - 10.00 k/cmm [facility] RBC 3.42(L) 3.90 - 5.20 m/cmm [facility] Hgb 8.8(L) 11.5 - 15.7 g/dL [facility] Hematocrit 28.4(L) 34.0 - 45.0 % [facility] MCV 83.0 80.0 - 100.0 fL [facility] MCH 25.7 25.0 - 32.0 pg [facility] MCHC 31.0 31.0 - 36.0 g/dL [facility] RDW 16.0(H) 11.5 - 14.5 % [facility] Plt 227 150 - 400 k/cmm [facility] MPV 12.0 6.5 - 12.5 fL [facility] Blood 11/09/2023 5:41 AM BUSINESS PERFORMANCE ADVISOR 11/09/2023 6:38 AM BUSINESS PERFORMANCE ADVISOR Quinn Covarrubias MD LABORATORY [facility] [place] [address] * (ABNORMAL) POC GLUCOSE (11/08/2023 8:40 PM BUSINESS PERFORMANCE ADVISOR) [facility] POC Glucose 125(H) 70 - 100 mg/dL [facility] Blood 11/08/2023 8:40 PM BUSINESS PERFORMANCE ADVISOR Devin Dougherty MD LABORATORY [facility] [address] [place] [address], * PHOSPHORUS (11/08/2023 4:20 PM BUSINESS PERFORMANCE ADVISOR) Pathologist [facility] Phosphorus 3.5 2.5 - 4.5 mg/dL [facility] Blood 11/08/2023 4:20 PM BUSINESS PERFORMANCE ADVISOR 11/08/2023 4:38 PM BUSINESS PERFORMANCE ADVISOR Jesusita K EMILY Aiken APRNNATE RY Performing Organization Address [facility] Co de Phone Number [facility] [address] [place] [address] * MAGNESIUM (11/08/2023 4:20 PM BUSINESS PERFORMANCE ADVISOR) Magnesium 2.0 1.6 - 2.4 mg/dL [facility] Blood 11/08/2023 4:20 PM BUSINESS PERFORMANCE ADVISOR 11/08/2023 4:38 PM BUSINESS PERFORMANCE ADVISOR Jesusita Wild Nelli CHO EMILY MORENOATO RY Performing Organization Address [facility] de Phone Number [facility] [address] [address] * (ABNORMAL) PANEL BASIC METABOLIC (BMP) (11/08/2023 4:20 PM BUSINESS PERFORMANCE ADVISOR) Sodium 142 135 - 148 mEq/L [facility] Potassium 3.4(L) 3.5 - 5.3 mEq/L [facility] Chloride 105 92 - 108 mEq/L [facility] CO2 28 22 - 30 mEq/L [facility] AnGap 9 8 - 16 mEq/L [facility] Glucose 149(H) 70 - 100 mg/dL [facility] BUN 17 8 - 23 mg/dL [facility] Creatinine 0.82 0.50 - 1.00 mg/dL [facility] Calcium 8.9 8.8 - 10.2 mg/dL [facility] eGFR (2020 CKD-EPI) 72 >=60 ml/min/1.7 3m2 [facility] Comment: The estimated glomerular filtration rate (eGFR) was calculated using the CKD-EPI 2020 creatinine equation, which does not include race as a factor. This equation is validated in individuals 18 years of age and older, and eGFR is normalized to a body surface area of 1.73m^2. Blood 11/08/2023 4:20 PM BUSINESS PERFORMANCE ADVISOR 11/08/2023 4:38 PM BUSINESS PERFORMANCE ADVISOR Jesusita K Nelli CHO CNP JOSHATO RY Performing Organization Address City/[facility]/ZIP Co de Phone Number [facility] [address] [address] * (ABNORMAL) CBC WITH PLATELET (11/08/2023 4:20 PM BUSINESS PERFORMANCE ADVISOR) [facility] WBC 8.46 4.00 - 10.00 k/cmm [facility] RBC 3.65(L) 3.90 - 5.20 m/cmm [facility] Hgb 9.1(L) 11.5 - 15.7 g/dL [facility] Hematocrit 30.2(L) 34.0 - 45.0 % [facility] MCV 82.7 80.0 - 100.0 fL [facility] MCH 24.9(L) 25.0 - 32.0 pg [facility] MCHC 30.1(L) 31.0 - 36.0 g/dL [facility] RDW 16.0(H) 11.5 - 14.5 % [facility] Plt 227 150 - 400 k/cmm [facility] MPV 11.7 6.5 - 12.5 fL [facility] Blood 11/08/2023 4:20 PM BUSINESS PERFORMANCE ADVISOR 11/08/2023 4:38 PM BUSINESS PERFORMANCE ADVISOR EMILY Martinez APRNBARR[facility] RY Performing Organization Address City/[facility]/ZIP Co de Phone Number [address] [address] * (ABNORMAL) POC GLUCOSE (11/08/2023 3:56 PM BUSINESS PERFORMANCE ADVISOR) [facility] POC Glucose 150(H) 70 - 100 mg/dL [facility] POINT OF CARE Blood 11/08/2023 3:56 PM BUSINESS PERFORMANCE ADVISOR Devin Dougherty MD LABORATORY Performing Organization Address City/[facility]/ZIP Co de Phone Number [facility] POINT OF CARE [address] [place] [address] * (ABNORMAL) POC GLUCOSE (11/08/2023 11:03 AM BUSINESS PERFORMANCE ADVISOR) [facility] POC Glucose 162(H) 70 - 100 mg/dL [facility] POINT OF CARE Blood 11/08/2023 11:0 3 AM BUSINESS PERFORMANCE ADVISOR Devin Dougherty MD LABORATORY [facility]ARE [address] [place] [address], [place] * XR CHEST 1 VIEW AP OR PA* (11/08/2023 6:30 AM BUSINESS PERFORMANCE ADVISOR) Anatomical Region Laterality Modality Chest Computed Radiogr aphy 11/08/2023 6:56 AM BUSINESS PERFORMANCE ADVISOR Impressions 11/08/2023 7:24 AM BUSINESS PERFORMANCE ADVISOR Impression: Stable chest. I have personally reviewed the image(s) and initial interpretation, and I agree with the findings as documented by the resident/fellow. Reading Radiologist: Ronal Hidalgo Reading Resident: Laith Berkowitz Narrative 11/08/2023 7:24 AM BUSINESS PERFORMANCE ADVISOR Technique: XR CHEST 1 VIEW AP OR [...] * (ABNORMAL) POC GLUCOSE (11/08/2023 6:22 AM BUSINESS PERFORMANCE ADVISOR) POC Glucose 126(H) 70 - 100 mg/dL [facility] Blood 11/08/2023 6:22 AM BUSINESS PERFORMANCE ADVISOR Devin Dougherty MD LABORATORY [facility] POINT OF CARE [address] [place] [address], [place] * (ABNORMAL) POC GLUCOSE (11/07/2023 9:34 PM BUSINESS PERFORMANCE ADVISOR) POC Glucose 109(H) 70 - 100 mg/dL [facility] Blood 11/07/2023 9:34 PM BUSINESS PERFORMANCE ADVISOR Devin Dougherty MD LABORATORY Performing Organization Address City/[facility]/ZIP Co de Phone Number [facility] POINT OF CARE [address] [place] [address], [place] * (ABNORMAL) POC GLUCOSE (11/07/2023 4:06 PM BUSINESS PERFORMANCE ADVISOR) POC Glucose 160(H) 70 - 100 mg/dL [facility] POINT [facility] Blood 11/07/2023 4:06 PM BUSINESS PERFORMANCE ADVISOR Devin Dougherty MD LABORATORY Performing Organization Address [facility] Co de Phone Number [facility] [address] [place] [address], [place] * (ABNORMAL) POC GLUCOSE (11/07/2023 11:45 AM BUSINESS PERFORMANCE ADVISOR) POC Glucose 107(H) 70 - 100 mg/dL [facility] Blood 11/07/2023 11:4 5 AM BUSINESS PERFORMANCE ADVISOR Devin Dougherty MD LABORATORY Performing Organization Address City/[facility] Co de Phone Number [facility] POINT OF CARE [address] [place] [address], [place] * XR CHEST 2 VIEWS PA + LAT* (11/07/2023 10:07 AM BUSINESS PERFORMANCE ADVISOR) Anatomical Region Laterality Modality Chest Computed Radiogr aphy 11/07/2023 10:0 9 AM BUSINESS PERFORMANCE ADVISOR Impressions 11/07/2023 10:10 AM BUSINESS PERFORMANCE ADVISOR Impression: New left basilar opacities with small effusion concerning for developing infection. Reading Radiologist: Phil Contreras Narrative 11/07/2023 10:10 AM BUSINESS PERFORMANCE ADVISOR Technique: XR CHEST 2 VIEWS PA + [...] RAD XRAY * PROCALCITONIN (11/07/2023 8:34 AM BUSINESS PERFORMANCE ADVISOR) Procalcitonin 0.12 ng/mL [facility] Comment: Results <0.50 ng/mL represent a low risk of severe sepsis and/or septic shock. Results >2.0 ng/mL represent a high risk of severe sepsis and/or septic shock. Blood 11/07/2023 8:34 AM BUSINESS PERFORMANCE ADVISOR 11/07/2023 8:40 AM BUSINESS PERFORMANCE ADVISOR Quinn Covarrubias MD LABORATORY [facility] [address] [address] * (ABNORMAL) CBC WITH PLATELET (11/07/2023 8:34 AM BUSINESS PERFORMANCE ADVISOR) WBC 7.45 4.00 - 10.00 k/cmm [facility] RBC 3.49(L) 3.90 - 5.20 m/cmm [facility] Hgb 8.8(L) 11.5 - 15.7 g/dL [facility] Hematocrit 29.0(L) 34.0 - 45.0 % [facility] MCV 83.1 80.0 - 100.0 fL [facility] MCH 25.2 25.0 - 32.0 pg [facility] MCHC 30.3(L) 31.0 - 36.0 g/dL [facility] RDW 15.9(H) 11.5 - 14.5 % [facility] Plt 249 150 - 400 k/cmm [facility] MPV 11.0 6.5 - 12.5 fL [facility] Blood 11/07/2023 8:34 AM BUSINESS PERFORMANCE ADVISOR 11/07/2023 8:40 AM BUSINESS PERFORMANCE ADVISOR Quinn Covarrubias MD LABORATORY Performing Organization Address [facility] Co de Phone Number [facility] [address] [address] * (ABNORMAL) PANEL BASIC METABOLIC (BMP) (11/07/2023 8:34 AM BUSINESS PERFORMANCE ADVISOR) Sodium 145 135 - 148 mEq/L [facility] Potassium 3.5 3.5 - 5.3 mEq/L [facility] Chloride 111(H) 92 - 108 mEq/L [facility] CO2 26 22 - 30 mEq/L [facility] AnGap 8 8 - 16 mEq/L [facility] Glucose 108(H) 70 - 100 mg/dL [facility] BUN 15 8 - 23 mg/dL [facility] Creatinine 0.90 0.50 - 1.00 mg/dL [facility] Calcium 8.8 8.8 - 10.2 mg/dL [facility] eGFR (2020 CKD-EPI) 64 >=60 ml/min/1.7 3m2 [facility] Comment: The estimated glomerular filtration rate (eGFR) was calculated using the CKD-EPI 2020 creatinine equation, which does not include race as a factor. This equation is validated in individuals 18 years of age and older, and eGFR is normalized to a body surface area of 1.73m^2. Blood 11/07/2023 8:34 AM BUSINESS PERFORMANCE ADVISOR 11/07/2023 8:40 AM BUSINESS PERFORMANCE ADVISOR Quinn Covarrubias MD LABORATORY Performing Organization Address City/[facility]/ZIP Co de Phone Number [facility] [address] [address] * MAGNESIUM (11/07/2023 8:34 AM BUSINESS PERFORMANCE ADVISOR) Magnesium 2.3 1.6 - 2.4 mg/dL [facility] Blood 11/07/2023 8:34 AM BUSINESS PERFORMANCE ADVISOR 11/07/2023 8:40 AM BUSINESS PERFORMANCE ADVISOR Quinn Covarrubias MD LABORATORY Performing Organization Address City/[facility] [place] [address] * (ABNORMAL) PHOSPHORUS (11/07/2023 8:34 AM BUSINESS PERFORMANCE ADVISOR) Phosphorus 5.0(H) 2.5 - 4.5 mg/dL [facility] Blood 11/07/2023 8:34 AM BUSINESS PERFORMANCE ADVISOR 11/07/2023 8:40 AM BUSINESS PERFORMANCE ADVISOR Quinn Covarrubias MD LABORATORY Performing Organization Address [facility] [place] [address] * (ABNORMAL) POC GLUCOSE (11/07/2023 5:45 AM BUSINESS PERFORMANCE ADVISOR) POC Glucose 115(H) 70 - 100 mg/dL [facility] Blood 11/07/2023 5:45 AM BUSINESS PERFORMANCE ADVISOR Devin Dougherty MD LABORATORY Performing Organization Address City/[facility] Co de Phone Number [facility] [address] [place] [address] * (ABNORMAL) POC GLUCOSE (11/06/2023 9:21 PM BUSINESS PERFORMANCE ADVISOR) POC Glucose 149(H) 70 - 100 mg/dL [facility] Blood 11/06/2023 9:21 PM BUSINESS PERFORMANCE ADVISOR Devin Dougherty MD LABORATORY Performing Organization Address City/[facility] Co de Phone Number [facility] [place] [address], [place] * (ABNORMAL) BLOOD GASES (11/06/2023 1:06 PM BUSINESS PERFORMANCE ADVISOR) PH Jalen 7.36 7.32 - 7.42 [facility] PCO2 Jalen 48 41 - 51 mmHG [facility] PO2 Jalen 86(H) 25 - 40 mmHG [facility] Bicarb Jalen 26 24 - 28 mEq/L [facility] O2 Sat Jalen 96 % [facility] Base Exc Jalen 1.0 -10.0 - 2.0 mEq/L [facility] Blood Venous 11/06/2023 1:06 PM BUSINESS PERFORMANCE ADVISOR 11/06/2023 1:10 PM BUSINESS PERFORMANCE ADVISOR Narrative [facility] - 11/06/2023 1:16 PM BUSINESS PERFORMANCE ADVISOR Draw on Room Air: No O2 LPM (liter/min) Level->4 via mask FiO2 Level: 100 Quinn Covarrubias MD LABORATORY Performing Organization Address City/[facility]/ZIP Co de Phone Number [address] [address] * MAGNESIUM (11/06/2023 1:06 PM BUSINESS PERFORMANCE ADVISOR) Magnesium 2.4 1.6 - 2.4 mg/dL [facility] Blood 11/06/2023 1:06 PM BUSINESS PERFORMANCE ADVISOR 11/06/2023 1:22 PM BUSINESS PERFORMANCE ADVISOR Quinn Covarrubias MD LABORATORY Performing Organization Address City/[facility]/ZIP Co de Phone Number [address] [address] * PHOSPHORUS (11/06/2023 1:06 PM BUSINESS PERFORMANCE ADVISOR) Phosphorus 4.2 2.5 - 4.5 mg/dL [facility] Blood 11/06/2023 1:06 PM BUSINESS PERFORMANCE ADVISOR 11/06/2023 1:22 PM BUSINESS PERFORMANCE ADVISOR Quinn Covarrubias MD LABORATORY Performing Organization Address City/[facility]/ZIP Co de Phone Number [address] [address] * (ABNORMAL) PANEL BASIC METABOLIC (BMP) (11/06/2023 1:06 PM BUSINESS PERFORMANCE ADVISOR) Sodium 141 135 - 148 mEq/L [facility] Potassium 3.8 3.5 - 5.3 mEq/L [facility] Chloride 108 92 - 108 mEq/L [facility] CO2 27 22 - 30 mEq/L [facility] AnGap 6(L) 8 - 16 mEq/L [facility] Glucose 184(H) 70 - 100 mg/dL [facility] BUN 15 8 - 23 mg/dL [facility] Creatinine 0.91 0.50 - 1.00 mg/dL [facility] Calcium 8.7(L) 8.8 - 10.2 mg/dL [facility] eGFR (2020 CKD-EPI) 63 >=60 ml/min/1.7 3m2 [facility] Comment: The estimated glomerular filtration rate (eGFR) was calculated using the CKD-EPI 2020 creatinine equation, which does not include race as a factor. This equation is validated in individuals 18 years of age and older, and eGFR is normalized to a body surface area of 1.73m^2. Blood 11/06/2023 1:06 PM BUSINESS PERFORMANCE ADVISOR 11/06/2023 1:22 PM BUSINESS PERFORMANCE ADVISOR Quinn Covarrubias MD LABORATORY [facility] [address] [address] * (ABNORMAL) CBC WITH PLATELET (11/06/2023 1:06 PM BUSINESS PERFORMANCE ADVISOR) WBC 10.82(H) 4.00 - 10.00 k/cmm [facility] RBC 3.58(L) 3.90 - 5.20 m/cmm [facility] Hgb 9.1(L) 11.5 - 15.7 g/dL [facility] Hematocrit 29.6(L) 34.0 - 45.0 % [facility] MCV 82.7 80.0 - 100.0 fL [facility] MCH 25.4 25.0 - 32.0 pg [facility] MCHC 30.7(L) 31.0 - 36.0 g/dL [facility] RDW 15.8(H) 11.5 - 14.5 % [facility] Plt 253 150 - 400 k/cmm [facility] MPV 11.3 6.5 - 12.5 fL [facility] Blood 11/06/2023 1:06 PM BUSINESS PERFORMANCE ADVISOR 11/06/2023 1:21 PM BUSINESS PERFORMANCE ADVISOR Quinn Covarrubias MD LABORATORY Performing Organization Address [facility] Co de Phone Number [facility] [place] [address] * (ABNORMAL) POC GLUCOSE (11/06/2023 1:04 PM BUSINESS PERFORMANCE ADVISOR) POC Glucose 173(H) 70 - 100 mg/dL [facility] Blood 11/06/2023 1:04 PM BUSINESS PERFORMANCE ADVISOR Devin Dougherty MD LABORATORY Performing Organization Address [facility] Co de Phone Number [facility] [place] [address], * (ABNORMAL) POC GLUCOSE (11/06/2023 10:49 AM BUSINESS PERFORMANCE ADVISOR) POC Glucose 257(H) 70 - 100 mg/dL [facility] Blood 11/06/2023 10:4 9 AM BUSINESS PERFORMANCE ADVISOR Devin Dougherty MD LABORATORY Performing Organization Address [facility] de Phone Number [facility] [address] * (ABNORMAL) GLYCOSYLATED HGB - A1C (11/06/2023 6:31 AM BUSINESS PERFORMANCE ADVISOR) Hemoglobin A1C 8.1(H) 4.0 - 5.6 % [facility] Comment: Increased risk for diabetes (prediabetes): 5.7-6.4% Diabetes: greater than or equal to 6.5% * * In the absence of unequivocal hyperglycemia, diagnosis requires two abnormal test results (i.e. HbA1c and glucose) or two abnormal results from specimens collected at two different timepoints. Estimated Average Glucose 186(H) 68 - 114 [facility] Comment: The ADA recommends reporting an estimated Average Glucose (eAG) with all hemoglobin A1c results using the equation derived from a study of 501 normal diabetic adults. Minority populations were underrepresented and children were not included. The EAG is not equivalent to a fasting glucose. Blood 11/06/2023 6:31 AM BUSINESS PERFORMANCE ADVISOR 11/06/2023 11:28 AM BUSINESS PERFORMANCE ADVISOR Quinn Covarrubias MD LABORATORY Performing Organization Address [facility] Co de Phone Number [facility] [address] [address] * ICU PHOSPHORUS (11/06/2023 6:31 AM BUSINESS PERFORMANCE ADVISOR) Phosphorus 4.1 2.5 - 4.5 mg/dL [facility] Blood 11/06/2023 6:31 AM BUSINESS PERFORMANCE ADVISOR 11/06/2023 7:37 AM BUSINESS PERFORMANCE ADVISOR Devin Dougherty MD LABORATORY Performing Organization Address [facility] de Phone Number [facility] [address] [address] * (ABNORMAL) ICU MAGNESIUM (11/06/2023 6:31 AM BUSINESS PERFORMANCE ADVISOR) Magnesium 2.5(H) 1.6 - 2.4 mg/dL [facility] Blood 11/06/2023 6:31 AM BUSINESS PERFORMANCE ADVISOR 11/06/2023 7:37 AM BUSINESS PERFORMANCE ADVISOR Devin Dougherty MD LABORATORY Performing Organization Address [facility] de Phone Number [facility] [address] [address] * (ABNORMAL) ICU CBC WITH PLATELET (11/06/2023 6:31 AM BUSINESS PERFORMANCE ADVISOR) WBC 9.06 4.00 - 10.00 k/cmm [facility] RBC 3.77(L) 3.90 - 5.20 m/cmm [facility] Hgb 9.6(L) 11.5 - 15.7 g/dL [facility] Hematocrit 30.8(L) 34.0 - 45.0 % [facility] MCV 81.7 80.0 - 100.0 fL [facility] MCH 25.5 25.0 - 32.0 pg [facility] MCHC 31.2 31.0 - 36.0 g/dL [facility] RDW 15.9(H) 11.5 - 14.5 % [facility] Plt 284 150 - 400 k/cmm [facility] MPV 12.1 6.5 - 12.5 fL [facility] Blood 11/06/2023 6:31 AM BUSINESS PERFORMANCE ADVISOR 11/06/2023 7:37 AM BUSINESS PERFORMANCE ADVISOR Devin Dougherty MD LABORATORY Performing Organization Address City/State/[facility] Co de Phone Number [facility] [address] [address] * (ABNORMAL) ICU PANEL BASIC METABOLIC (BMP) (11/06/2023 6:31 AM BUSINESS PERFORMANCE ADVISOR) Sodium 142 135 - 148 mEq/L [facility] Potassium 3.7 3.5 - 5.3 mEq/L [facility] Chloride 107 92 - 108 mEq/L [facility] CO2 26 22 - 30 mEq/L [facility] AnGap 9 8 - 16 mEq/L [facility] Glucose 148(H) 70 - 100 mg/dL [facility] BUN 12 8 - 23 mg/dL [facility] Creatinine 0.77 0.50 - 1.00 mg/dL [facility] Calcium 8.7(L) 8.8 - 10.2 mg/dL [facility] eGFR (2020 CKD-EPI) 77 >=60 ml/min/1.7 3m2 [facility] Comment: The estimated glomerular filtration rate (eGFR) was calculated using the CKD-EPI 2020 creatinine equation, which does not include race as a factor. This equation is validated in individuals 18 years of age and older, and eGFR is normalized to a body surface area of 1.73m^2. Blood 11/06/2023 6:31 AM BUSINESS PERFORMANCE ADVISOR 11/06/2023 7:37 AM BUSINESS PERFORMANCE ADVISOR Devin Dougherty MD LABORATORY Performing Organization Address City/State/[facility] Co de Phone Number [facility] [address] [address] * PROTHROMBIN (PT) & INR (11/06/2023 6:31 AM BUSINESS PERFORMANCE ADVISOR) Pathologist [facility] PT 11.4 9.0 - 12.5 sec [facility] INR 1.0 0.8 - 1.1 [facility] Comment: Warfarin Therapeutic Range: Standard Intensity: 2.0 - 3.0 High Intensity: 2.5 - 3.5 Blood 11/06/2023 6:31 AM BUSINESS PERFORMANCE ADVISOR 11/06/2023 7:37 AM BUSINESS PERFORMANCE ADVISOR Quinn Covarrubias MD LABORATORY Performing Organization Address [facility] Co de Phone Number [address] [address] * (ABNORMAL) POC GLUCOSE (11/06/2023 5:39 AM BUSINESS PERFORMANCE ADVISOR) Pathologist [facility] POC Glucose 149(H) 70 - 100 mg/dL [facility] Blood 11/06/2023 5:39 AM BUSINESS PERFORMANCE ADVISOR Devin Dougherty MD LABORATORY Performing Organization Address [facility] Co de Phone Number [facility] [address] [address], * (ABNORMAL) POC GLUCOSE (11/05/2023 4:54 PM BUSINESS PERFORMANCE ADVISOR) Pathologist [facility] POC Glucose 170(H) 70 - 100 mg/dL [facility] Blood 11/05/2023 4:54 PM BUSINESS PERFORMANCE ADVISOR Devin Dougherty MD LABORATORY Performing Organization Address City/[facility] Co de Phone Number [facility] [address] [address], * (ABNORMAL) MAGNESIUM (11/05/2023 4:48 PM BUSINESS PERFORMANCE ADVISOR) Magnesium 2.8(H) 1.6 - 2.4 mg/dL [facility] Blood 11/05/2023 4:48 PM BUSINESS PERFORMANCE ADVISOR 11/05/2023 4:58 PM BUSINESS PERFORMANCE ADVISOR Quinn Covarrubias MD LABORATORY [facility] [address] [address] * (ABNORMAL) POTASSIUM (11/05/2023 4:48 PM BUSINESS PERFORMANCE ADVISOR) Potassium 3.2(L) 3.5 - 5.3 mEq/L [facility] Blood 11/05/2023 4:48 PM BUSINESS PERFORMANCE ADVISOR 11/05/2023 4:58 PM BUSINESS PERFORMANCE ADVISOR Quinn Covarrubias MD LABORATORY Performing Organization Address [facility] Co de Phone Number [facility] [address] [address] * CT HEAD NO IV CONTRAST (11/05/2023 11:44 AM BUSINESS PERFORMANCE ADVISOR) Anatomical Region Laterality Modality Skull Computed Tomogra phy 11/05/2023 12:1 6 PM BUSINESS PERFORMANCE ADVISOR Impressions 11/05/2023 12:38 PM BUSINESS PERFORMANCE ADVISOR Impression: Stable head CT as compared to the study performed 7 hours earlier. Intra-axial and extra-axial hemorrhage(s) without midline shift or hydrocephalus. The basal cisterns are patent. Reading Radiologist: Ford Fernández 11/05/2023 12:38 PM BUSINESS PERFORMANCE ADVISOR Exam: Head CT without contrast, 11/05/2023 Indication: [...] * (ABNORMAL) POC GLUCOSE (11/05/2023 11:11 AM BUSINESS PERFORMANCE ADVISOR) POC Glucose 201(H) 70 - 100 mg/dL [facility] Blood 11/05/2023 11:1 1 AM BUSINESS PERFORMANCE ADVISOR Devin Dougherty MD LABORATORY Performing Organization Address City/[facility]/ZIP Co de Phone Number [facility] [address] [place] [address], * EKG ADULT (12-LEAD) (11/05/2023 6:38 AM BUSINESS PERFORMANCE ADVISOR) 11/05/2023 6:38 AM BUSINESS PERFORMANCE ADVISOR Impressions [facility] EKG ORDERS - 11/05/2023 6:38 AM BUSINESS PERFORMANCE ADVISOR SINUS RHYTHM RIGHT BUNDLE BRANCH BLOCK ??[120+ ms QRS DURATION, UPRIGHT V1, 40+ ms S IN I/aVL/V4/V5/V6] ABNORMAL ECG P-R Interval 151 ms QRS Interval 128 ms QT Interval 420 ms QTC Interval 462 ms P [place] 9 QRS [place] 27 T Wave [place] 70 Narrative Procedure Note Lauren Mills MD - 11/06/2023 IMPRESSION SINUS RHYTHM RIGHT BUNDLE BRANCH BLOCK [120+ ms QRS DURATION, UPRIGHT V1, 40+ ms S INI/aVL/V4/V5/V6] ABNORMAL ECG P-R Interval 151 ms QRS Interval 128 ms QT Interval 420 ms QTC Interval 462 ms P [place] 9 QRS [place] 27 T Wave [place] 70 Quinn Covarrubias MD EKG Performing Organization Address City/[facility]/ZIP Co de Phone Number [facility] EKG ORDERS * (ABNORMAL) POC GLUCOSE (11/05/2023 6:07 AM BUSINESS PERFORMANCE ADVISOR) POC Glucose 188(H) 70 - 100 mg/dL [facility] Blood 11/05/2023 6:07 AM BUSINESS PERFORMANCE ADVISOR Devin Dougherty MD LABORATORY [facility] [place] [place] [address], [place] * CT HEAD NO IV CONTRAST (11/05/2023 4:54 AM BUSINESS PERFORMANCE ADVISOR) Anatomical Region Laterality Modality Skull Computed Tomogra phy 11/05/2023 4:56 AM BUSINESS PERFORMANCE ADVISOR Impressions 11/05/2023 11:09 AM BUSINESS PERFORMANCE ADVISOR Impression: 1. Stable to perhaps minimally increased [...] Reading Resident: Laith Berkowitz 11/05/2023 11:09 AM BUSINESS PERFORMANCE ADVISOR Exam: Head CT without contrast, 11/05/2023 Indication: [...] and intradural vertebral arteries. Procedure Note Ford Feránndez DO - 11/05/2023 Exam: Head CT without [...] PROTHROMBIN (PT) & INR (11/05/2023 4:27 AM BUSINESS PERFORMANCE ADVISOR) PT 12.3 9.0 - 12.5 sec [facility] INR 1.1 0.8 - 1.1 [facility] Comment: This sample may have abnormal results due to the presence of lipemia. Warfarin Therapeutic Range: Standard Intensity: 2.0 - 3.0 High Intensity: 2.5 - 3.5 Blood 11/05/2023 4:27 AM BUSINESS PERFORMANCE ADVISOR 11/05/2023 4:35 AM BUSINESS PERFORMANCE ADVISOR Quinn Covarrubias MD LABORATORY Performing Organization Address City/[facility]/ZIP Co de Phone Number [facility] [place] [phone] * ICU PHOSPHORUS (11/05/2023 4:27 AM BUSINESS PERFORMANCE ADVISOR) Phosphorus 3.5 2.5 - 4.5 mg/dL [facility] Blood 11/05/2023 4:27 AM BUSINESS PERFORMANCE ADVISOR 11/05/2023 4:36 AM BUSINESS PERFORMANCE ADVISOR Devin Dougherty MD LABORATORY Performing Organization Address City/[facility]/ZIP Co de Phone Number [facility] [address] [address] * (ABNORMAL) ICU MAGNESIUM (11/05/2023 4:27 AM BUSINESS PERFORMANCE ADVISOR) Magnesium 1.5(L) 1.6 - 2.4 mg/dL [facility] Blood 11/05/2023 4:27 AM BUSINESS PERFORMANCE ADVISOR 11/05/2023 4:36 AM BUSINESS PERFORMANCE ADVISOR Devin Dougherty MD LABORATORY [facility] [address] [address] * (ABNORMAL) ICU BLOOD GAS (11/05/2023 4:27 AM BUSINESS PERFORMANCE ADVISOR) PH Art 7.38 7.35 - 7.45 [facility] PCO2 Art 42 35 - 45 mmHG [facility] PO2 Art 99(H) 75 - 85 mmHG [facility] Bicarb Art 25 22 - 26 mEq/L [facility] O2 Sat Art 98 96 - 99 % [facility] Base Exc Art 0.0 -10.0 - 2.0 mEq/L [facility] Blood Arterial 11/05/2023 4: 27 AM BUSINESS PERFORMANCE ADVISOR 11/05/2023 4:34 AM BUSINESS PERFORMANCE ADVISOR Devin Dougherty MD LABORATORY Performing Organization Address City/[facility] Co de Phone Number [facility] [address] [address] * (ABNORMAL) ICU CBC WITH PLATELET (11/05/2023 4:27 AM BUSINESS PERFORMANCE ADVISOR) WBC 13.69(H) 4.00 - 10.00 k/cmm [facility] RBC 3.49(L) 3.90 - 5.20 m/cmm [facility] Hgb 9.8(L) 11.5 - 15.7 g/dL [facility] Hematocrit 28.2(L) 34.0 - 45.0 % [facility] MCV 80.8 80.0 - 100.0 fL [facility] MCH 28.1 25.0 - 32.0 pg [facility] MCHC 34.8 31.0 - 36.0 g/dL [facility] RDW 15.4(H) 11.5 - 14.5 % [facility] Plt 330 150 - 400 k/cmm [facility] MPV 10.9 6.5 - 12.5 fL [facility] Blood 11/05/2023 4:27 AM BUSINESS PERFORMANCE ADVISOR 11/05/2023 4:35 AM BUSINESS PERFORMANCE ADVISOR Devin Dougherty MD LABORATORY [facility] [address] [address] * (ABNORMAL) ICU PANEL BASIC METABOLIC (BMP) (11/05/2023 4:27 AM BUSINESS PERFORMANCE ADVISOR) Sodium 138 135 - 148 mEq/L [facility] Potassium 3.2(L) 3.5 - 5.3 mEq/L [facility] Chloride 102 92 - 108 mEq/L [facility] CO2 24 22 - 30 mEq/L [facility] AnGap 12 8 - 16 mEq/L [facility] Glucose 200(H) 70 - 100 mg/dL [facility] BUN 16 8 - 23 mg/dL [facility] Creatinine 0.80 0.50 - 1.00 mg/dL [facility] Calcium 8.7(L) 8.8 - 10.2 mg/dL [facility] eGFR (2020 CKD-EPI) 74 >=60 ml/min/1.7 3m2 [facility] Comment: The estimated glomerular filtration rate (eGFR) was calculated using the CKD-EPI 2020 creatinine equation, which does not include race as a factor. This equation is validated in individuals 18 years of age and older, and eGFR is normalized to a body surface area of 1.73m^2. Blood 11/05/2023 4:27 AM BUSINESS PERFORMANCE ADVISOR 11/05/2023 4:36 AM BUSINESS PERFORMANCE ADVISOR Devin Dougherty MD LABORATORY Performing Organization Address City/[facility]/ZIP Co de Phone Number [facility] [address] [address] * (ABNORMAL) TROP 6H (11/05/2023 4:27 AM BUSINESS PERFORMANCE ADVISOR) 6H Trop 51(H) <=14 ng/L [facility] 6H Delta Significan t(A) Not Significant [facility] Blood 11/05/2023 4:27 AM BUSINESS PERFORMANCE ADVISOR 11/05/2023 4:35 AM BUSINESS PERFORMANCE ADVISOR Devin Dougherty MD LABORATORY Performing Organization Address [facility]/ZIP Co de Phone Number [facility] [address] [address] * (ABNORMAL) TROP 4H (11/05/2023 2:58 AM BUSINESS PERFORMANCE ADVISOR) 4H Trop 39(H) <=14 ng/L [facility] 4H Delta Significan t(A) Not Significant [facility] Blood 11/05/2023 2:58 AM BUSINESS PERFORMANCE ADVISOR 11/05/2023 3:48 AM BUSINESS PERFORMANCE ADVISOR Devin Dougherty MD LABORATORY Performing Organization Address City/[facility] Co de Phone Number [facility] [place] [phone] * CK, TOTAL (11/05/2023 1:32 AM BUSINESS PERFORMANCE ADVISOR) CK 56 26 - 192 IU/L [facility] Blood 11/05/2023 1:32 AM BUSINESS PERFORMANCE ADVISOR 11/05/2023 1:32 AM BUSINESS PERFORMANCE ADVISOR Devin Dougherty MD LABORATORY Performing Organization Address City/[facility] Co de Phone Number [place] [phone] * FIBRINOGEN (11/05/2023 1:32 AM BUSINESS PERFORMANCE ADVISOR) Fibrinogen 262 200 - 400 mg/dL [facility] Blood 11/05/2023 1:32 AM BUSINESS PERFORMANCE ADVISOR 11/05/2023 1:32 AM BUSINESS PERFORMANCE ADVISOR Devin Dougherty MD LABORATORY Performing Organization Address City/[facility] Co de Phone Number [facility] [address] [address] * PTT (APTT) (11/05/2023 1:32 AM BUSINESS PERFORMANCE ADVISOR) APTT 26.0 25.0 - 37.0 sec [facility] Blood 11/05/2023 1:32 AM BUSINESS PERFORMANCE ADVISOR 11/05/2023 1:32 AM BUSINESS PERFORMANCE ADVISOR Devin Dougherty MD LABORATORY Performing Organization Address City/[facility] Co de Phone Number [facility] [address] [address] * (ABNORMAL) PANEL HEPATIC FUNCTION (11/05/2023 1:32 AM BUSINESS PERFORMANCE ADVISOR) Pathologist [facility] Alk Phos 111(H) 35 - 104 IU/L [facility] Total Protein 6.5 6.4 - 8.3 g/dL [facility] Bili Direct na <=0.3 mg/dL [facility] Comment:Direct Bilirubin = < 0.2. Accuracy of result suspect due to lipemia. Albumin 3.8 3.8 - 5.1 g/dL [facility] Bili Total <0.2 <=1.2 mg/dL [facility] ALT (SGPT) na <=33 [facility] Comment:ALT = 15. Accuracy o f result suspect due to lipemia. AST(SGOT) na 5 - 40 [facility] Comment:AST = 27. Accuracy o f result suspect due to lipemia. Blood 11/05/2023 1:32 AM BUSINESS PERFORMANCE ADVISOR 11/05/2023 1:32 AM BUSINESS PERFORMANCE ADVISOR Devin Dougherty MD LABORATORY [facility] [address] [address] * (ABNORMAL) CBC WITH PLATELET (11/05/2023 1:32 AM BUSINESS PERFORMANCE ADVISOR) Pathologist [facility] WBC 14.77(H) 4.00 - 10.00 k/cmm [facility] RBC 3.70(L) 3.90 - 5.20 m/cmm [facility] Hgb 9.9(L) 11.5 - 15.7 g/dL [facility] Hematocrit 30.0(L) 34.0 - 45.0 % [facility] MCV 81.1 80.0 - 100.0 fL [facility] MCH 26.8 25.0 - 32.0 pg [facility] MCHC 33.0 31.0 - 36.0 g/dL [facility] RDW 15.4(H) 11.5 - 14.5 % [facility] Plt 324 150 - 400 k/cmm [facility] MPV 11.0 6.5 - 12.5 fL [facility] Blood 11/05/2023 1:32 AM BUSINESS PERFORMANCE ADVISOR 11/05/2023 1:32 AM BUSINESS PERFORMANCE ADVISOR Devin Dougherty MD LABORATORY Performing Organization Address [facility] Co de Phone Number [facility] [address] [address] * (ABNORMAL) PANEL BASIC METABOLIC (BMP) (11/05/2023 1:32 AM BUSINESS PERFORMANCE ADVISOR) Potassium 3.1(L) 3.5 - 5.3 mEq/L [facility] Sodium 138 135 - 148 mEq/L [facility] CO2 25 22 - 30 mEq/L [facility] Glucose 242(H) 70 - 100 mg/dL [facility] BUN 16 8 - 23 mg/dL [facility] Creatinine 0.76 0.50 - 1.00 mg/dL [facility] Chloride 101 92 - 108 mEq/L [facility] eGFR (2020 CKD-EPI) 79 >=60 ml/min/1.7 3m2 [facility] Comment: The estimated glomerular filtration rate (eGFR) was calculated using the CKD-EPI 2020 creatinine equation, which does not include race as a factor. This equation is validated in individuals 18 years of age and older, and eGFR is normalized to a body surface area of 1.73m^2. AnGap 12 8 - 16 mEq/L [facility] Calcium 8.8 8.8 - 10.2 mg/dL [facility] Blood 11/05/2023 1:32 AM BUSINESS PERFORMANCE ADVISOR 11/05/2023 1:32 AM BUSINESS PERFORMANCE ADVISOR Devin Dougherty MD LABORATORY Performing Organization Address [facility] Co de Phone Number [facility] [address] [address] * (ABNORMAL) MAGNESIUM (11/05/2023 1:32 AM BUSINESS PERFORMANCE ADVISOR) Magnesium 1.5(L) 1.6 - 2.4 mg/dL [facility] Blood 11/05/2023 1:32 AM BUSINESS PERFORMANCE ADVISOR 11/05/2023 1:32 AM BUSINESS PERFORMANCE ADVISOR Devin Dougherty MD LABORATORY Performing Organization Address [facility] Co de Phone Number [facility] [address] [address] * PHOSPHORUS (11/05/2023 1:32 AM BUSINESS PERFORMANCE ADVISOR) Phosphorus 3.4 2.5 - 4.5 mg/dL [facility] Blood 11/05/2023 1:32 AM BUSINESS PERFORMANCE ADVISOR 11/05/2023 1:32 AM BUSINESS PERFORMANCE ADVISOR Devin Dougherty MD LABORATORY Performing Organization Address [facility] Co de Phone Number [facility] [address] [address] * PROTHROMBIN (PT) & INR (11/05/2023 1:32 AM BUSINESS PERFORMANCE ADVISOR) PT 11.8 9.0 - 12.5 sec [facility] INR 1.0 0.8 - 1.1 [facility] Comment: Warfarin Therapeutic Range: Standard Intensity: 2.0 - 3.0 High Intensity: 2.5 - 3.5 Blood 11/05/2023 1:32 AM BUSINESS PERFORMANCE ADVISOR 11/05/2023 1:32 AM BUSINESS PERFORMANCE ADVISOR Devin Dougherty MD LABORATORY Performing Organization Address [facility] Co de Phone Number [facility] [address] [address] * CALCIUM,IONIZED (11/05/2023 1:18 AM BUSINESS PERFORMANCE ADVISOR) PH 7.37 7.32 - 7.42 [facility] ICA, Actual 4.82 4.40 - 5.20 mg/dL [facility] ICA, pH Corrected 4.75 4.40 - 5.20 mg/dL [facility] Blood 11/05/2023 1:18 AM BUSINESS PERFORMANCE ADVISOR 11/05/2023 1:27 AM BUSINESS PERFORMANCE ADVISOR Narrative [facility] - 11/05/2023 1:44 AM BUSINESS PERFORMANCE ADVISOR Send specimen on ice! Devin Dougherty MD LABORATORY Performing Organization Address [facility] Co de Phone Number [facility] [address] [address] * LACTATE (LACTIC ACID) (11/05/2023 1:18 AM BUSINESS PERFORMANCE ADVISOR) Lactate 1.9 0.7 - 2.1 mmol/L [facility] Blood 11/05/2023 1:18 AM BUSINESS PERFORMANCE ADVISOR 11/05/2023 1:27 AM BUSINESS PERFORMANCE ADVISOR Narrative [facility] - 11/05/2023 1:45 AM BUSINESS PERFORMANCE ADVISOR Send specimen on ice! Devin Dougherty MD LABORATORY Performing Organization Address [facility] Co de Phone Number [facility] [address] [address] * BLOOD GASES (11/05/2023 1:18 AM BUSINESS PERFORMANCE ADVISOR) PH Art 7.37 7.35 - 7.45 [facility] PCO2 Art 43 35 - 45 mmHG [facility] PO2 Art 83 75 - 85 mmHG [facility] Bicarb Art 25 22 - 26 mEq/L [facility] O2 Sat Art 96 96 - 99 % [facility] Base Exc Art -0.3 -10.0 - 2.0 mEq/L [facility] Blood Arterial 11/05/2023 1: 18 AM BUSINESS PERFORMANCE ADVISOR 11/05/2023 1:27 AM BUSINESS PERFORMANCE ADVISOR Devin Dougherty MD LABORATORY Performing Organization Address [facility] Co de Phone Number [facility] [address] [address] * (ABNORMAL) TROP 2H (11/05/2023 1:18 AM BUSINESS PERFORMANCE ADVISOR) 2H Trop 18(H) <=14 ng/L [facility] 2H Delta Indeterminate Not Significant [facility] Blood 11/05/2023 1:18 AM BUSINESS PERFORMANCE ADVISOR 11/05/2023 1:45 AM BUSINESS PERFORMANCE ADVISOR Devin Dougherty MD LABORATORY Performing Organization Address [facility]/ZIP Co de Phone Number [facility] [address] [address] * CT HEAD-NECK - ANGIO - W/IV CON (11/05/2023 12:09 AM BUSINESS PERFORMANCE ADVISOR) Anatomical Region Laterality Modality Skull Computed Tomogra phy 11/05/2023 12:2 1 AM BUSINESS PERFORMANCE ADVISOR Impressions 11/05/2023 10:22 AM BUSINESS PERFORMANCE ADVISOR Impression: ?? Slightly increased size of the [...] Fernández Resident: Laith Berkowitz 11/05/2023 10:22 AM BUSINESS PERFORMANCE ADVISOR CT angiogram of the Head with contrast, [...] and reviewed by the Radiologist using the [employer] workstation, and these images were archived in [...] and reviewed by the Radiologist using the [employer] workstation,and these images were archived in the [...] NEURO * (ABNORMAL) URINALYSIS,TOTAL (11/04/2023 11:55 PM BUSINESS PERFORMANCE ADVISOR) Color COLORLESS YELLOW [facility] Appearance CLEAR CLEAR [facility] Urine Glucose 100(A) NEGATIVE mg/dL [facility] Bili UA NEGATIVE NEGATIVE [facility] Ketones NEGATIVE NEGATIVE [facility] Specific Fisher 1.036(A) 1.003 - 1.030 [facility] Blood Ur NEGATIVE Neg-Trace [facility] PH Urine 7.5(H) 5.0 - 7.0 [facility] Protein Ur TRACE Neg-Trace [facility] Urobilinogen NORMAL NORMAL EU/dL [facility] Nitrite Ur NEGATIVE NEGATIVE [facility] Leuk Est NEGATIVE Neg-Trace [facility] WBC Ur 0-5 0 - 5 perHPF [facility] RBC Ur 0-3 0 - 3 perHPF [facility] SQ EPITH 0-5 0 - 5 perHPF [facility] Urinalysis Performed at: [facility] Urine 11/04/2023 11:5 5 PM BUSINESS PERFORMANCE ADVISOR 11/05/2023 12:03 AM BUSINESS PERFORMANCE ADVISOR Devin Dougherty MD LABORATORY [facility] [address] [address] * PF INSERT CATH,ART,PERCUT,SHORTTERM (11/04/2023 11:43 PM BUSINESS PERFORMANCE ADVISOR) Narrative Rito Graf MD - 11/04/2023 11:43 PM BUSINESS PERFORMANCE ADVISOR Priscilla Holcomb MD ? 11/04/2023 11:44 PM Arterial Line Performed by: Priscilla Holcomb MD Authorized by: Rito Graf MD ?? Consent: ??Consent obtained: ??Verbal ??Consent given by: ??Patient ??Risks discussed: ??Pain, bleeding and infection [place] protocol: ??Patient identity confirmed: ??Verbally with patient, [...] * ED EKG (12-LEAD) (11/04/2023 11:25 PM BUSINESS PERFORMANCE ADVISOR) 11/04/2023 11:2 5 PM BUSINESS PERFORMANCE ADVISOR Impressions [facility] EKG ORDERS - 11/04/2023 11:25 PM BUSINESS PERFORMANCE ADVISOR SINUS TACHYCARDIA RIGHT BUNDLE BRANCH BLOCK ??[120+ ms QRS DURATION, UPRIGHT V1, 40+ ms S IN I/aVL/V4/V5/V6] ABNORMAL ECG P-R Interval 173 ms QRS Interval 127 ms QT Interval 395 ms QTC Interval 458 ms P [place] 57 QRS [place] 34 T Wave [place] 43 Narrative Procedure Note Vineet Díaz MD - 11/05/2023 IMPRESSION SINUS TACHYCARDIA RIGHT BUNDLE BRANCH BLOCK [120+ ms QRS DURATION, UPRIGHT V1, 40+ ms S INI/aVL/V4/V5/V6] ABNORMAL ECG P-R Interval 173 ms QRS Interval 127 ms QT Interval 395 ms QTC Interval 458 ms P [place] 57 QRS [place] 34 T Wave [place] 43 Devin Dougherty MD EKG [facility] EKG ORDERS * CT SPINE LUMBAR NO IV CON (11/04/2023 11:05 PM BUSINESS PERFORMANCE ADVISOR) Anatomical Region Laterality Modality Lumbar Spine Computed Tomogra phy 11/04/2023 11:2 3 PM BUSINESS PERFORMANCE ADVISOR Impressions 11/05/2023 9:22 AM BUSINESS PERFORMANCE ADVISOR Impression: 1. No suspected acute fracture or dislocation of the thoracic or lumbar spine. ?? 2. Njue-ze-gxxbubnm lumbar spondylosis without suspected high-grade spinal canal or neural foraminal narrowing. I have personally reviewed the image(s) and initial interpretation, and I agree with the findings as documented by the resident/fellow. Reading Radiologist: Ford Fernández Resident: Laith Berkowitz Narrative 11/05/2023 9:22 AM BUSINESS PERFORMANCE ADVISOR Exam: Thoracic and Lumbar Spine CT Reconstructions, [...] dislocation of the thoracic or lumbarspine. 2. Ykwe-cx-wgwsegzb lumbar spondylosis without suspected high-grade spinalcanal or neural foraminal narrowing. I have personally reviewed the image(s) and initial interpretation, and Iagree with the findings as documented by the resident/fellow. Reading Radiologist: Ford Fernández Resident: Laith Berkowitz Devin Dougherty MD RAD CT NEURO * CT SPINE THORACIC NO IV CON (11/04/2023 11:05 PM BUSINESS PERFORMANCE ADVISOR) Anatomical Region Laterality Modality Thoracic Spine Computed Tomogra phy 11/04/2023 11:2 3 PM BUSINESS PERFORMANCE ADVISOR Impressions 11/05/2023 9:22 AM BUSINESS PERFORMANCE ADVISOR Impression: 1. No suspected acute fracture or dislocation of the thoracic or lumbar spine. ?? 2. Nfsb-nf-wjeecxjg lumbar spondylosis without suspected high-grade spinal canal or neural foraminal narrowing. I have personally reviewed the image(s) and initial interpretation, and I agree with the findings as documented by the resident/fellow. Reading Radiologist: Ford Fernández Resident: Laith Berkowitz Narrative 11/05/2023 9:22 AM BUSINESS PERFORMANCE ADVISOR Exam: Thoracic and Lumbar Spine CT Reconstructions, [...] dislocation of the thoracic or lumbarspine. 2. Stfp-vy-kusmmray lumbar spondylosis without suspected high-grade spinalcanal or neural foraminal narrowing. I have personally reviewed the image(s) and initial interpretation, and Iagree with the findings as documented by the resident/fellow. Reading Radiologist: Ford Fernández Resident: Laith Berkowitz Devin Doughrety MD RAD CT NEURO * CT CHEST/ABD/PELVIS W/IV CONT (11/04/2023 11:05 PM BUSINESS PERFORMANCE ADVISOR) Anatomical Region Laterality Modality Chest Computed Tomogra phy 11/04/2023 11:2 9 PM BUSINESS PERFORMANCE ADVISOR Impressions 11/05/2023 6:33 AM BUSINESS PERFORMANCE ADVISOR Impression: 1. No acute traumatic sequelae in [...] Reading Resident: Laith Berkowitz 11/05/2023 6:33 AM BUSINESS PERFORMANCE ADVISOR Comparison: None Indication: Trauma (STAB) ?? Technique: [...] CERVICAL NO IV CON (11/04/2023 11:05 PM BUSINESS PERFORMANCE ADVISOR) Anatomical Region Laterality Modality Cervical Spine Computed Tomogra phy 11/04/2023 11:2 0 PM BUSINESS PERFORMANCE ADVISOR Impressions 11/05/2023 8:27 AM BUSINESS PERFORMANCE ADVISOR Impression: ?? 1. No acute fracture or traumatic subluxation of the cervical vertebrae. 2. Mild degenerative changes of the cervical spine without high-grade spinal canal or neural foraminal narrowing. I have personally reviewed the image(s) and initial interpretation, and I agree with the findings as documented by the resident/fellow. Reading Radiologist: Ford Fernández Resident: Laith Berkowitz Narrative 11/05/2023 8:27 AM BUSINESS PERFORMANCE ADVISOR Exam: Cervical spine CT without contrast, 11/04/2023 [...] spinal canal narrowing. C5-6: Mild left and qydn-mb-osvauird right neural foraminal narrowing. Borderline mild spinal [...] spinal canal narrowing. C5-6: Mild left and uyjx-pg-zbxejapo right neural foraminal narrowing.Borderline mild spinal canal [...] HEAD NO IV CONTRAST (11/04/2023 11:05 PM BUSINESS PERFORMANCE ADVISOR) Anatomical Region Laterality Modality Skull Computed Tomogra phy 11/04/2023 11:1 2 PM BUSINESS PERFORMANCE ADVISOR Impressions 11/05/2023 10:23 AM BUSINESS PERFORMANCE ADVISOR Impression: 1. Thin subdural hemorrhage, measuring up [...] Fernández Resident: Laith Berkowitz 11/05/2023 10:23 AM BUSINESS PERFORMANCE ADVISOR Exam: Head CT without contrast, 11/05/2023 Indication: [...] VIEW AP OR PA* (11/04/2023 10:57 PM BUSINESS PERFORMANCE ADVISOR) Anatomical Region Laterality Modality Chest Computed Radiogr aphy 11/04/2023 11:0 0 PM BUSINESS PERFORMANCE ADVISOR Impressions 11/05/2023 6:18 AM BUSINESS PERFORMANCE ADVISOR Impression: No acute cardiopulmonary findings. I have personally reviewed the image(s) and initial interpretation, and I agree with the findings as documented by the resident/fellow. Reading Radiologist: Scott Porras Resident: Laith Berkowitz Narrative 11/05/2023 6:18 AM BUSINESS PERFORMANCE ADVISOR Technique: XR CHEST 1 VIEW AP OR [...] HEMOGLOBIN TOTAL (ED ONLY) (11/04/2023 10:48 PM BUSINESS PERFORMANCE ADVISOR) Hgb 10.3(L) 11.5 - 15.7 g/dL [facility] Blood 11/04/2023 10:4 8 PM BUSINESS PERFORMANCE ADVISOR 11/04/2023 10:49 PM BUSINESS PERFORMANCE ADVISOR Devin Dougherty MD LABORATORY [facility] [address] [address] * (ABNORMAL) ED CHEMISTRY LABS(NA,K,CL,CO2,GLU,CREAT,CA-IONIZED,ANION GAP) (11/04/2023 10:48 PM BUSINESS PERFORMANCE ADVISOR) Sodium 144 135 - 148 mEq/L [facility] Chloride 106 92 - 108 mEq/L [facility] AnGap 11 8 - 16 mEq/L [facility] Glucose 234(H) 70 - 100 mg/dL [facility] ICA, Actual 4.52 4.40 - 5.20 mg/dL [facility] ICA, pH Corrected 4.51 4.40 - 5.20 mg/dL [facility] Creatinine 0.81 0.50 - 1.00 mg/dL [facility] BICARB 27(H) 22 - 26 mEq/L [facility] eGFR (2020 CKD-EPI) 73 >=60 ml/min/1.7 3m2 [facility] Comment: The estimated glomerular filtration rate (eGFR) was calculated using the CKD-EPI 2020 creatinine equation, which does not include race as a factor. This equation is validated in individuals 18 years of age and older, and eGFR is normalized to a body surface area of 1.73m^2. Potassium 2.8(AA) 3.5 - 5.3 mEq/L [facility] Comment:Critcal Result Low Blood 11/04/2023 10:4 8 PM BUSINESS PERFORMANCE ADVISOR 11/04/2023 10:49 PM BUSINESS PERFORMANCE ADVISOR Narrative [facility] - 11/04/2023 10:55 PM BUSINESS PERFORMANCE ADVISOR Critical value for Potassium called to and read back by Rafa Hutchins RN in ??EDSTAB 2 at 11/04/2023 22:55:31 BUSINESS PERFORMANCE ADVISOR by Eleni Spring MLS. Devin Dougherty MD LABORATORY Performing Organization Address [facility] Co de Phone Number [facility] [address] [address] * (ABNORMAL) ANTI XA HEPARIN UNFRACTIONATED (11/04/2023 10:45 PM BUSINESS PERFORMANCE ADVISOR) Anti XA Hep U <0.04(L) 0.30 - 0.70 IU/mL [facility] Blood 11/04/2023 10:4 5 PM BUSINESS PERFORMANCE ADVISOR 11/04/2023 11:05 PM BUSINESS PERFORMANCE ADVISOR Devin Dougherty MD LABORATORY Performing Organization Address [facility] Co de Phone Number [facility] [address] [address] * EXTRA TUBE - SST (11/04/2023 10:45 PM BUSINESS PERFORMANCE ADVISOR) SST TUBE Stored [facility] Comment:SST tubes (Serum Sep arator) are stored in the lab for 3 days from the collection date. Blood 11/04/2023 10:4 5 PM BUSINESS PERFORMANCE ADVISOR 11/04/2023 10:50 PM BUSINESS PERFORMANCE ADVISOR Devin Dougherty MD LABORATORY Performing Organization Address [facility] Co de Phone Number [facility] [address] [address] * EXTRA TUBE - LIGHT GREEN (11/04/2023 10:45 PM BUSINESS PERFORMANCE ADVISOR) Pathologist [facility] LIGHT GREEN TUBE Stored [facility] Comment:Green tubes ([place]ic Heparin) are stored in the lab for 3 days from the collection date. Blood 11/04/2023 10:4 5 PM BUSINESS PERFORMANCE ADVISOR 11/04/2023 10:50 PM BUSINESS PERFORMANCE ADVISOR Devin Dougherty MD LABORATORY Performing Organization Address City/[facility]/ZIP Co de Phone Number [facility] [address] [address] * HS TROPONIN (11/04/2023 10:45 PM BUSINESS PERFORMANCE ADVISOR) [facility] HS Troponin I 10 <=14 ng/L [facility] Blood 11/04/2023 10:4 5 PM BUSINESS PERFORMANCE ADVISOR 11/04/2023 11:05 PM BUSINESS PERFORMANCE ADVISOR Narrative [facility] - 11/04/2023 11:36 PM BUSINESS PERFORMANCE ADVISOR First Occurrence of the Troponin order is to be drawn Stat by Nursing staff on the unit. Devin Dougherty MD LABORATORY Performing Organization Address [facility] Co de Phone Number [address] [address] * (ABNORMAL) PTT (APTT) (11/04/2023 10:45 PM BUSINESS PERFORMANCE ADVISOR) [facility] APTT 22.9(L) 25.0 - 37.0 sec [facility] Blood 11/04/2023 10:4 5 PM BUSINESS PERFORMANCE ADVISOR 11/04/2023 11:05 PM BUSINESS PERFORMANCE ADVISOR Devin Dougherty MD LABORATORY Performing Organization Address [facility] Co de Phone Number [address] [address] * ED INR (11/04/2023 10:45 PM BUSINESS PERFORMANCE ADVISOR) Pathologist [facility] ED INR 1.0 0.8 - 1.1 [facility] Comment: Warfarin Therapeutic Range: Standard Intensity: 2.0 - 3.0 High Intensity: 2.5 - 3.5 Blood 11/04/2023 10:4 5 PM BUSINESS PERFORMANCE ADVISOR 11/04/2023 10:48 PM BUSINESS PERFORMANCE ADVISOR Devin Dougherty MD LABORATORY [facility] [address] [address] * PRECAUTIONARY TUBE (11/04/2023 10:45 PM BUSINESS PERFORMANCE ADVISOR) Prec Tube Precautionary Blood Bank Specimen Received. [facility] Blood 11/04/2023 10:4 5 PM BUSINESS PERFORMANCE ADVISOR 11/04/2023 10:52 PM BUSINESS PERFORMANCE ADVISOR Devin Dougherty MD LAB TRANSFUSION SER VICES Performing Organization Address [facility] Co de Phone Number [address] [address] * (ABNORMAL) LACTATE (LACTIC ACID) (11/04/2023 10:45 PM BUSINESS PERFORMANCE ADVISOR) Lactate 2.7(H) 0.7 - 2.1 mmol/L [facility] Blood 11/04/2023 10:4 5 PM BUSINESS PERFORMANCE ADVISOR 11/04/2023 10:50 PM BUSINESS PERFORMANCE ADVISOR Narrative [facility] - 11/04/2023 10:50 PM BUSINESS PERFORMANCE ADVISOR Send specimen on ice! Devin Dougherty MD LABORATORY Performing Organization Address [facility] Co de Phone Number [facility] [address] [address] * FIBRINOGEN (11/04/2023 10:45 PM BUSINESS PERFORMANCE ADVISOR) Fibrinogen 288 200 - 400 mg/dL [facility] Blood 11/04/2023 10:4 5 PM BUSINESS PERFORMANCE ADVISOR 11/04/2023 11:05 PM BUSINESS PERFORMANCE ADVISOR Devin Dougherty MD LABORATORY Performing Organization Address City/[facility]/ZIP Co de Phone Number [facility] [address] [address] * (ABNORMAL) CBC WITH PLTS/AUTO DIFF (11/04/2023 10:45 PM BUSINESS PERFORMANCE ADVISOR) WBC 9.42 4.00 - 10.00 k/cmm [facility] RBC 3.86(L) 3.90 - 5.20 m/cmm [facility] Hgb 9.8(L) 11.5 - 15.7 g/dL [facility] Hematocrit 31.8(L) 34.0 - 45.0 % [facility] MCV 82.4 80.0 - 100.0 fL [facility] MCH 25.4 25.0 - 32.0 pg [facility] MCHC 30.8(L) 31.0 - 36.0 g/dL [facility] RDW 15.3(H) 11.5 - 14.5 % [facility] Plt 292 150 - 400 k/cmm [facility] MPV 11.1 6.5 - 12.5 fL [facility] Automated Abs Neutrophil 5.80 1.70 - 6.50 k/cmm [facility] Comment:Preliminary ANC, Fin al Result to Follow Abs Immature Granulocyte 0.07 0.00 - 0.09 k/cmm [facility] Comment:The Immature Granulo cyte Absolute count contains metamyelocytes and myelocytes. Abs Neutrophil 5.80 1.70 - 6.50 k/cmm [facility] Abs Lymphocyte 2.33 0.80 - 4.00 k/cmm [facility] Abs Monocyte 0.88 0.20 - 1.00 k/cmm [facility] Abs Eosinophil 0.27 0.00 - 0.60 k/cmm [facility] Abs Basophil 0.07 0.00 - 0.20 k/cmm [facility] Blood 11/04/2023 10:4 5 PM BUSINESS PERFORMANCE ADVISOR 11/04/2023 11:05 PM BUSINESS PERFORMANCE ADVISOR Devin Dougherty MD LABORATORY [facility] [address] [place] [id number] * (ABNORMAL) BLOOD GASES (11/04/2023 10:45 PM BUSINESS PERFORMANCE ADVISOR) Pathologist [facility] PH Jalen 7.39 7.32 - 7.42 [facility] PCO2 Jalen 45 41 - 51 mmHG [facility] PO2 Jalen 41(H) 25 - 40 mmHG [facility] Bicarb Jalen 27 24 - 28 mEq/L [facility] O2 Sat Jalen 69 % [facility] Base Exc Jalen 1.4 -10.0 - 2.0 mEq/L [facility] Blood Venous 11/04/2023 10:4 5 PM BUSINESS PERFORMANCE ADVISOR 11/04/2023 10:50 PM BUSINESS PERFORMANCE ADVISOR Devin Dougherty MD LABORATORY [facility] [address] [address] * ED US CRITICAL CARE (11/04/2023 10:40 PM BUSINESS PERFORMANCE ADVISOR) Anatomical Region Laterality Modality Ultrasound Narrative 11/04/2023 11:28 PM BUSINESS PERFORMANCE ADVISOR ED Trauma eFAST Ultrasound Indications: Suspicion of [...] Primary Fall, initial encounter SDH (subdural hematoma) ([facility]) Subdural hemorrhage SAH (subarachnoid hemorrhage) ([facility]) Subarachnoid hemorrhage Traumatic brain injury with loss of consciousness, initial encounter ([facility]) documented in this encounter Admitting Diagnoses [...] Until Discontinued New Bag 11/05/2023 4:19 AM BUSINESS PERFORMANCE ADVISOR 1,000 mg 400 mL /hr acetaminophen tablet 650 mg 650 mg, Oral, Q6H PRN, Starting on Sun11/05/23 at 0859, Until Sun11/16/23 at 1221, Mild Pain (Use First) Given 11/12/2023 2:59 AM BUSINESS PERFORMANCE ADVISOR 650 mg Given 11/10/2023 3:29 PM BUSINESS PERFORMANCE ADVISOR 650 mg Given 11/10/2023 9:23 AM BUSINESS PERFORMANCE ADVISOR 650 mg allopurinol (ZYLOPRIM) half tablet 50 mg 50 mg, Oral, DAILY, First dose on Sun11/08/23 at 0930, Until Discontinued Given 11/16/2023 7:33 AM BUSINESS PERFORMANCE ADVISOR 50 mg Given 11/15/2023 7:59 AM BUSINESS PERFORMANCE ADVISOR 50 mg Given 11/14/2023 8:15 AM BUSINESS PERFORMANCE ADVISOR 50 mg amLODIPine (NORVASC) tablet 5 mg 5 mg, Oral, DAILY, First dose on Sun11/12/23 at 1045, Until Discontinued Given 11/16/2023 7:33 AM BUSINESS PERFORMANCE ADVISOR 5 mg Given 11/15/2023 8:00 AM BUSINESS PERFORMANCE ADVISOR 5 mg Given 11/14/2023 8:14 AM BUSINESS PERFORMANCE ADVISOR 5 mg bisacodyl (DULCOLAX) suppository 10 mg 10 mg, Rectal, ONE TIME-NOW, 1 dose, On Sun11/14/23 at 0910 Given 11/14/2023 10:10 AM BUSINESS PERFORMANCE ADVISOR 10 mg carvedilol (COREG) tablet 12.5 mg 12.5 mg, Oral, BID, First dose on Sun11/05/23 at 2000, Until Discontinued Given 11/06/2023 8:03 PM BUSINESS PERFORMANCE ADVISOR 12.5 mg Given 11/06/2023 8:50 AM BUSINESS PERFORMANCE ADVISOR 12.5 mg Given 11/05/2023 8:04 PM BUSINESS PERFORMANCE ADVISOR 12.5 mg carvedilol (COREG) tablet 12.5 mg 12.5 mg, Oral, BID, First dose (after last modification) on Sun11/07/23 at 2000, Until Discontinued Given 11/09/2023 9:04 AM BUSINESS PERFORMANCE ADVISOR 12.5 mg Given 11/08/2023 7:48 PM BUSINESS PERFORMANCE ADVISOR 12.5 mg Given 11/08/2023 7:53 AM BUSINESS PERFORMANCE ADVISOR 12.5 mg carvedilol (COREG) tablet 6.25 mg 6.25 mg, Oral, BID, First dose (after last modification) on Sun11/09/23 at 2000, Until Discontinued Given 11/16/2023 7:34 AM BUSINESS PERFORMANCE ADVISOR 6.25 mg Given 11/15/2023 9:11 PM BUSINESS PERFORMANCE ADVISOR 6.25 mg Given 11/15/2023 8:00 AM BUSINESS PERFORMANCE ADVISOR 6.25 mg chlorthaLIDONE (HYGROTON) tablet 25 mg 25 mg, Oral, DAILY, First dose (after last reorder) on Sun11/06/23 at 1100, Until Discontinued Given 11/06/2023 2:55 PM BUSINESS PERFORMANCE ADVISOR 25 mg chlorthaLIDONE (HYGROTON) tablet 25 mg 25 mg, Oral, DAILY, First dose (after last modification) on Sun11/08/23 at 0800, Until Discontinued Given 11/16/2023 7:33 AM BUSINESS PERFORMANCE ADVISOR 25 mg Given 11/15/2023 7:59 AM BUSINESS PERFORMANCE ADVISOR 25 mg Given 11/14/2023 8:15 AM BUSINESS PERFORMANCE ADVISOR 25 mg clevidipine (CLEVIPREX) 50 mg in 100 mL emulsion 0-21 mg/hr (0-42 mL/hr), Start infusion at (mg/hr): 2, Titrate to: SBP (mmHg), of: 140, Intravenous, CONTINUOUS, Starting on Sun11/04/23 at 2320, Until Sun11/06/23 at 0846 Rate changed 11/06/2023 5:34 AM BUSINESS PERFORMANCE ADVISOR 8 mg/hr 16 mL/hr New Bag 11/06/2023 4:49 AM BUSINESS PERFORMANCE ADVISOR 6 mg/hr 12 mL/hr Rate changed 11/06/2023 1:58 AM BUSINESS PERFORMANCE ADVISOR 6 mg/hr 12 mL/hr clevidipine (CLEVIPREX) 50 mg in 100 mL emulsion 0-21 mg/hr (0-42 mL/hr), Start infusion at (mg/hr): 1, Titrate to: SBP (mmHg), of: 140, Intravenous, CONTINUOUS, Starting on Sun11/05/23 at 0120, Until Sun11/05/23 at 0246 New Bag 11/05/2023 1:46 AM BUSINESS PERFORMANCE ADVISOR 21 mg/hr 42 mL/hr clevidipine (CLEVIPREX) 50 mg in 100 mL emulsion 0-21 mg/hr (0-42 mL/hr), Start infusion at (mg/hr): 2, Titrate to: SBP (mmHg), of: 160, Intravenous, CONTINUOUS, Starting on Sun11/06/23 at 0905, Until Sun11/07/23 at 0711 Rate changed 11/06/2023 4:58 PM BUSINESS PERFORMANCE ADVISOR 2 mg/hr 4 mL/hr Restarted 11/06/2023 4:50 PM BUSINESS PERFORMANCE ADVISOR 3 mg/hr 6 mL/hr Rate changed 11/06/2023 2:56 PM BUSINESS PERFORMANCE ADVISOR 3 mg/hr 6 mL/hr DC MED REC [...] 0905, Until Discontinued Given 11/16/2023 7:33 AM BUSINESS PERFORMANCE ADVISOR 250 mg Given 11/15/2023 8:58 PM BUSINESS PERFORMANCE ADVISOR 250 mg Given 11/15/2023 7:59 AM BUSINESS PERFORMANCE ADVISOR 250 mg enoxaparin (LOVENOX) 30 mg/0.3 mL injection 30 mg 30 mg, Subcutaneous, Q12H, First dose on Sun11/07/23 at 2000, Until Discontinued Given 11/15/2023 8:57 PM BUSINESS PERFORMANCE ADVISOR 30 mg Abdominal Tissue Given 11/15/2023 8:02 AM BUSINESS PERFORMANCE ADVISOR 30 mg Le ft Upper Arm Given 11/14/2023 8:20 PM BUSINESS PERFORMANCE ADVISOR 30 mg Ri ght Upper Arm hydrALAZINE (APRESOLINE) 20 mg/mL injection 10 mg 10 mg, IV Push, Q4H PRN, Starting on Sun11/07/23 at 1004, Until Sun11/08/23 at 0906, SBP greater than 160 mmHg Given 11/07/2023 5:01 PM BUSINESS PERFORMANCE ADVISOR 10 mg hydrALAZINE (APRESOLINE) 20 mg/mL injection 20 mg 20 mg, IV Push, ONE TIME-NOW, 1 dose, On Sun11/07/23 at 1005 Given 11/07/2023 10:29 AM BUSINESS PERFORMANCE ADVISOR 20 mg insulin ASPART (NovoLOG) FlexPen Insulin [...] 0120, Until Discontinued Given 11/05/2023 5:53 PM BUSINESS PERFORMANCE ADVISOR 1 UNITS Abdominal Tissue Given 11/05/2023 12:40 PM BUSINESS PERFORMANCE ADVISOR 2 UNITS L eft Upper Arm Given 11/05/2023 8:00 AM BUSINESS PERFORMANCE ADVISOR 1 UNITS Le ft Upper Arm insulin [...] 1630, Until Discontinued Given 11/13/2023 4:35 PM BUSINESS PERFORMANCE ADVISOR 1 UNITS Right Upper Arm Given 11/13/2023 11:56 AM BUSINESS PERFORMANCE ADVISOR 1 UNITS L eft Upper Quadrant Abdomen Given 11/09/2023 5:47 PM BUSINESS PERFORMANCE ADVISOR 1,747 UNITS A bdominal Tissue insulin ASPART [...] Sun11/04/23 at 2310 Given 11/04/2023 11:07 PM BUSINESS PERFORMANCE ADVISOR 120 mL Left Arm iohexol (OMNIPAQUE) 350 mg/mL injection IV Push, RAD ONE TIME AUTO ACKNOWLEDGE, 1 dose, On Sun11/05/23 at 0010 Given 11/05/2023 12:09 AM BUSINESS PERFORMANCE ADVISOR 60 mL labetalol (NORMODYNE;TRANDATE) 5 mg/mL injection 10 mg 10 mg, IV Push, Q1H PRN, Starting on Sun11/07/23 at 1004, Until Sun11/08/23 at 0906, SBP greater than 160 mmHg Given 11/08/2023 5:53 AM BUSINESS PERFORMANCE ADVISOR 10 mg Given 11/08/2023 4:16 AM BUSINESS PERFORMANCE ADVISOR 10 mg Given 11/08/2023 1:27 AM BUSINESS PERFORMANCE ADVISOR 10 mg lactated ringers infusion at 75 mL/hr, Intravenous, CONTINUOUS, Starting on Sun11/07/23 at 1055, Until Sun11/07/23 at 1625 Rate changed 11/07/2023 11:53 AM BUSINESS PERFORMANCE ADVISOR 75 mL/hr New Bag 11/07/2023 11:23 AM BUSINESS PERFORMANCE ADVISOR 110 mL/hr levETIRAcetam (KEPPRA) 750 mg in NaCl 0.9% 100 mL IVPB 750 mg, Intravenous, Q12H, Administer over 15 Minutes, First dose on Sun11/07/23 at 1400, Last dose on Sun11/12/23 at 0800 New Bag 11/08/2023 8:02 AM BUSINESS PERFORMANCE ADVISOR 750 mg 430 mL/hr New Bag 11/07/2023 3:10 PM BUSINESS PERFORMANCE ADVISOR 750 mg 430 mL/hr levETIRAcetam (KEPPRA) tablet 1,000 mg 1,000 mg, Oral, BID, 11 doses, First dose on Sun11/06/23 at 1999, Last dose on Sun11/11/23 at 1999 Given 11/06/2023 8:03 PM BUSINESS PERFORMANCE ADVISOR 1,000 mg levETIRAcetam (KEPPRA) tablet 750 mg 750 mg, Oral, BID, 7 doses, First dose on Sun11/08/23 at 1999, Last dose on Sun11/11/23 at 1999 Given 11/11/2023 7:57 PM BUSINESS PERFORMANCE ADVISOR 750 mg Given 11/11/2023 8:55 AM BUSINESS PERFORMANCE ADVISOR 750 mg Given 11/10/2023 8:58 PM BUSINESS PERFORMANCE ADVISOR 750 mg levETIRAcetam in NaCl (KEPPRA) 1000 mg/100 mL IVPB 1,000 mg 1,000 mg, Intravenous, Q12H, Administer over 15 Minutes, First dose on Sun11/05/23 at 0800, Last dose on Sun11/11/23 at 0800 New Bag 11/05/2023 8:04 PM BUSINESS PERFORMANCE ADVISOR 1,000 mg New Bag 11/05/2023 8:08 AM BUSINESS PERFORMANCE ADVISOR 1,000 mg levETIRAcetam in NaCl (KEPPRA) 1000 mg/100 mL IVPB 2,000 mg 2,000 mg, Intravenous, ONE TIME, Administer over 15 Minutes, On Sun11/04/23 at 2345 New Bag 11/04/2023 11:40 PM BUSINESS PERFORMANCE ADVISOR 2,000 mg losartan (COZAAR) tablet 25 mg 25 mg, Oral, DAILY, First dose on Sun11/05/23 at 0900, Until Discontinued Given 11/06/2023 8:50 AM BUSINESS PERFORMANCE ADVISOR 25 mg Given 11/05/2023 11:13 AM BUSINESS PERFORMANCE ADVISOR 25 mg losartan (COZAAR) tablet 25 mg 25 mg, Oral, BID, First dose (after last modification) on Sun11/13/23 at 0800, Until Discontinued Given 11/16/2023 7:33 AM BUSINESS PERFORMANCE ADVISOR 25 mg Given 11/15/2023 8:58 PM BUSINESS PERFORMANCE ADVISOR 25 mg Given 11/15/2023 8:00 AM BUSINESS PERFORMANCE ADVISOR 25 mg losartan (COZAAR) tablet 50 mg 50 mg, Oral, DAILY, First dose (after last modification) on Sun11/08/23 at 0800, Until Discontinued Given 11/12/2023 8:47 AM BUSINESS PERFORMANCE ADVISOR 50 mg Given 11/11/2023 8:55 AM BUSINESS PERFORMANCE ADVISOR 50 mg Given 11/10/2023 9:23 AM BUSINESS PERFORMANCE ADVISOR 50 mg magnesium sulfate 2 g IVPB 2 g, Intravenous, ONE TIME, Administer over 1 Hours, On Sun11/05/23 at 0220 New Bag 11/05/2023 2:59 AM BUSINESS PERFORMANCE ADVISOR 2 g 50 mL/hr magnesium sulfate 2 g IVPB 2 g, Intravenous, ONE TIME, Administer over 1 Hours, On Sun11/05/23 at 0620 New Bag 11/05/2023 8:08 AM BUSINESS PERFORMANCE ADVISOR 2 g 50 mL/hr melatonin tablet 3 mg 3 mg, Oral, BEDTIME, First dose on Sun11/08/23 at 2000, Until Discontinued Given 11/15/2023 8:57 PM BUSINESS PERFORMANCE ADVISOR 3 mg Given 11/14/2023 8:17 PM BUSINESS PERFORMANCE ADVISOR 3 mg Given 11/13/2023 8:41 PM BUSINESS PERFORMANCE ADVISOR 3 mg metFORMIN (GLUCOPHAGE) tablet 500 mg 500 mg, Oral, BID, First dose on Sun11/15/23 at 1010, Until Discontinued Given 11/16/2023 7:33 AM BUSINESS PERFORMANCE ADVISOR 500 mg Given 11/15/2023 8:57 PM BUSINESS PERFORMANCE ADVISOR 500 mg Given 11/15/2023 12:47 PM BUSINESS PERFORMANCE ADVISOR 500 mg NaCl 0.9% infusion at 100 mL/hr, Intravenous, CONTINUOUS, Starting on Sun11/05/23 at 0120, Until Sun11/05/23 at 1705 Infusing 11/05/2023 12:00 PM BUSINESS PERFORMANCE ADVISOR 100 mL/hr Infusing 11/05/2023 11:00 AM BUSINESS PERFORMANCE ADVISOR 100 mL/hr Infusing 11/05/2023 10:00 AM BUSINESS PERFORMANCE ADVISOR 100 mL/hr naproxen (NAPROSYN) tablet 500 mg 500 mg, Oral, BID, 19 doses, First dose on Sun11/08/23 at 0845, Last dose on Sun11/17/23 at 2000 Given 11/16/2023 7:33 AM BUSINESS PERFORMANCE ADVISOR 500 mg Given 11/15/2023 8:57 PM BUSINESS PERFORMANCE ADVISOR 500 mg Given 11/15/2023 7:58 AM BUSINESS PERFORMANCE ADVISOR 500 mg OLANZapine (ZyPREXA ZYDIS) disintegrating tablet 2.5 mg 2.5 mg, Oral, BEDTIME, First dose (after last modification) on Sun11/15/23 at 0230, Until Discontinued Given 11/15/2023 9:01 PM BUSINESS PERFORMANCE ADVISOR 2.5 mg Given 11/15/2023 3:27 AM BUSINESS PERFORMANCE ADVISOR 2.5 mg OLANZapine (ZyPREXA) tablet 10 mg 10 mg, Oral, BEDTIME PRN, Starting on Sun11/07/23 at 0048, Until Sun11/07/23 at 0836, Agitation Given 11/07/2023 1:46 AM BUSINESS PERFORMANCE ADVISOR 10 mg ondansetron (ZOFRAN ODT) disintegrating tablet 4 mg 4 mg, Oral, TID PRN, Starting on Sun11/06/23 at 1020, Until Sun11/16/23 at 1221, Nausea/Vomiting (Use First) ondansetron (ZOFRAN) 4 mg/2 mL injection 4 mg 4 mg, IV Push, ONE TIME, 1 dose, On Sun11/06/23 at 1025 Given 11/06/2023 10:31 AM BUSINESS PERFORMANCE ADVISOR 4 mg ondansetron (ZOFRAN) 4 mg/2 mL injection 1 dose, Starting on Sun11/06/23 at 1024, Until Sun11/06/23 at 1031 polyethylene glycol 3350 (MIRALAX;GLYCOLAX) packet 17 g 17 g, Oral, DAILY, First dose on Sun11/06/23 at 0800, Until Discontinued Given 11/13/2023 8:24 AM BUSINESS PERFORMANCE ADVISOR 17 g Given 11/12/2023 8:47 AM BUSINESS PERFORMANCE ADVISOR 17 g Given 11/11/2023 8:56 AM BUSINESS PERFORMANCE ADVISOR 17 g polyethylene glycol 3350 (MIRALAX;GLYCOLAX) packet 17 g 17 g, Oral, BID, First dose (after last modification) on Sun11/14/23 at 0800, Until Discontinued Given 11/15/2023 8:57 PM BUSINESS PERFORMANCE ADVISOR 17 g Given 11/15/2023 8:00 AM BUSINESS PERFORMANCE ADVISOR 17 g Given 11/14/2023 8:19 PM BUSINESS PERFORMANCE ADVISOR 17 g potassium chloride (K-DUR) tablet 40 mEq 40 mEq, Oral, ONE TIME, 1 dose, On Sun11/09/23 at 0735 Given 11/09/2023 9:43 AM BUSINESS PERFORMANCE ADVISOR 40 mEq potassium chloride (K-DUR) tablet 40 mEq 40 mEq, Oral, ONE TIME-NOW, 1 dose, On Sun11/13/23 at 1025 Given 11/13/2023 10:51 AM BUSINESS PERFORMANCE ADVISOR 40 mEq potassium chloride (K-DUR) tablet 40 mEq 40 mEq, Oral, DAILY, First dose on Sun11/14/23 at 0800, Until Discontinued Given 11/16/2023 7:34 AM BUSINESS PERFORMANCE ADVISOR 40 mEq Given 11/15/2023 7:58 AM BUSINESS PERFORMANCE ADVISOR 40 mEq Given 11/14/2023 8:15 AM BUSINESS PERFORMANCE ADVISOR 40 mEq potassium chloride (K-CANDIDO) 20 mEq 20 mEq, Oral, ONE TIME, 1 dose, On Sun11/05/23 at 1955 Given 11/05/2023 10:32 PM BUSINESS PERFORMANCE ADVISOR 20 mEq potassium chloride (K-CANDIDO) powder 20 mEq 20 mEq, Oral, ONE TIME, 1 dose, On Sun11/13/23 at 1540 Given 11/13/2023 4:35 PM BUSINESS PERFORMANCE ADVISOR 20 mEq potassium chloride IVPB 10 mEq 10 mEq, Intravenous, ONE TIME, Administer over 60 Minutes, On Sun11/04/23 at 2355 New Bag 11/05/2023 12:12 AM BUSINESS PERFORMANCE ADVISOR 10 m Eq potassium chloride IVPB 10 mEq 10 mEq, Intravenous, Q1H, Administer over 60 Minutes, First dose on Sun11/05/23 at 0220, Last dose on Sun11/05/23 at 0320 New Bag 11/05/2023 4:19 AM BUSINESS PERFORMANCE ADVISOR 10 mEq New Bag 11/05/2023 2:59 AM BUSINESS PERFORMANCE ADVISOR 10 mEq potassium chloride IVPB 10 mEq 10 mEq, Intravenous, Q1H, Administer over 60 Minutes, First dose on Sun11/05/23 at 0620, Last dose on Sun11/05/23 at 0720 New Bag 11/05/2023 8:04 AM BUSINESS PERFORMANCE ADVISOR 10 mEq rosuvastatin (CRESTOR) tablet 20 mg 20 mg, Oral, DAILY, First dose on Sun11/05/23 at 0900, Until Discontinued Given 11/16/2023 7:33 AM BUSINESS PERFORMANCE ADVISOR 20 mg Given 11/15/2023 7:58 AM BUSINESS PERFORMANCE ADVISOR 20 mg Given 11/14/2023 8:15 AM BUSINESS PERFORMANCE ADVISOR 20 mg sennosides-docusate sodium (STOOL SOFTENER/LAXATIVE) 8.6-50 mg tablet 1 tablet 1 tablet, Oral, BID, First dose on Sun11/06/23 at 0800, Until Discontinued Given 11/07/2023 7:54 PM BUSINESS PERFORMANCE ADVISOR 1 tablet Given 11/06/2023 8:03 PM BUSINESS PERFORMANCE ADVISOR 1 tablet sennosides-docusate sodium (STOOL SOFTENER/LAXATIVE) 8.6-50 mg tablet 1 tablet 1 tablet, Oral, BID, First dose (after last modification) on Sun11/14/23 at 0800, Until Discontinued Given 11/16/2023 7:33 AM BUSINESS PERFORMANCE ADVISOR 1 tablet Given 11/15/2023 8:57 PM BUSINESS PERFORMANCE ADVISOR 1 tablet Given 11/15/2023 7:59 AM BUSINESS PERFORMANCE ADVISOR 1 tablet venlafaxine (EFFEXOR XR) capsule 225 mg 225 mg, Oral, DAILY, First dose on Sun11/06/23 at 1000, Until Discontinued Given 11/16/2023 7:32 AM BUSINESS PERFORMANCE ADVISOR 225 mg Given 11/15/2023 7:58 AM BUSINESS PERFORMANCE ADVISOR 225 mg Given 11/14/2023 8:14 AM BUSINESS PERFORMANCE ADVISOR 225 mg VTE Anti Xa Monitoring Does not apply, PROTOCOL, Starting on Sun11/07/23 at 1354, Until Sun11/16/23 at 1221 documented in this encounter Active and Recently Administered Medications Times are shown in BUSINESS PERFORMANCE ADVISOR. Scheduled Medication Order 11/14/2023 11/15/2023 11/16/2023 allopurinol [...] pm documented in this encounter Care Teams Pot Room Supervisor Relationship Specialty Start Date End Date Eloise Reeves DO [address] [place] [address] PCP - General Family Medicine 11/06/23 documented as of this encounter
--- OUTSIDE RECORDS SUMMARY | 2023-12-13 13:36 | XMS_ITS | Encounter Summary ---
Author Name Unknown Organization [facility] Address [address] [place] [address] Phone Care Team Providers Care Liquor Tester Name Role Phone Eloise Reeves DO [...] Coronavirus/COVID-19? No / Unsure 11/04/2023 10:48 PM DEAN OF STUDENT SERVICES documented as of this encounter Plan of Treatment Not on file documented as of this encounter Procedures Procedure Name Priority Date/Time Associated Diagnosis Comments TELEMETRY STRIPS 11/08/2023 9:49 AM DEAN OF STUDENT SERVICES documented in this encounter Results * TELEMETRY STRIPS (11/08/2023 9:49 AM DEAN OF STUDENT SERVICES) Narrative 11/08/2023 9:49 AM DEAN OF STUDENT SERVICES Ordered by an unspecified provider. Provider Unknown RAD ECHO documented in this encounter Visit Diagnoses Not on filedocumented in this encounter Care Teams Liquor Tester Relationship Specialty Start Date End Date Eloise Reeves [address] [place] [address] PCP - General Family Medicine 11/06/23 documented as of this encounter
--- OUTSIDE RECORDS SUMMARY | 2023-12-13 13:36 | XMS_ITS | Encounter Summary ---
Author Name Unknown Organization [facility] Address [address] [place] [id number] Phone Care Team Providers Care Sprigger Name Role Phone Eloise Reeves DO Primary Care Provider [phone] Encounter Details Date Type Department Care Team [...] Coronavirus/COVID-19? No / Unsure 11/04/2023 10:48 PM FLAVORING OIL FILTERER documented as of this encounter Plan of Treatment Not on file documented as of this encounter Procedures Procedure Name Priority Date/Time Associated Diagnosis Comments TELEMETRY STRIPS 11/07/2023 9:29 AM FLAVORING OIL FILTERER documented in this encounter Results * TELEMETRY STRIPS (11/07/2023 9:29 AM FLAVORING OIL FILTERER) Narrative 11/07/2023 9:29 AM FLAVORING OIL FILTERER Ordered by an unspecified provider. Provider Unknown RAD ECHO documented in this encounter Visit Diagnoses Not on filedocumented in this encounter Care Teams Sprigger Relationship Specialty Start Date End Date Eloise Reeves DO [address] [place] [address] PCP - General Family Medicine 11/06/23 documented as of this encounter
--- OUTSIDE RECORDS SUMMARY | 2023-12-13 13:36 | XMS_ITS | Encounter Summary ---
Author Name Unknown Organization [facility] Address [address] [place] [id number] Phone Care Team Providers Care Lay Midwife Name Role Phone Eloise Reeves DO Primary [...] Coronavirus/COVID-19? No / Unsure 11/04/2023 10:48 PM PROOF OPERATOR documented as of this encounter Plan of Treatment Not on file documented as of this encounter Procedures Procedure Name Priority Date/Time Associated Diagnosis Comments TELEMETRY STRIPS 11/08/2023 2:59 AM PROOF OPERATOR documented in this encounter Results * TELEMETRY STRIPS (11/08/2023 2:59 AM PROOF OPERATOR) Narrative 11/08/2023 2:59 AM PROOF OPERATOR Ordered by an unspecified provider. Provider Unknown RAD ECHO documented in this encounter Visit Diagnoses Not on filedocumented in this encounter Care Teams Lay Midwife Relationship Specialty Start Date End Date Eloise Reeves [address] [place] [address] PCP - General Family Medicine 11/06/23 documented as of this encounter
--- OUTSIDE RECORDS SUMMARY | 2023-12-13 13:36 | XMS_ITS | Encounter Summary ---
Author Name Unknown Organization [facility] Address [address] [place] [phone] Phone Care Team Providers Care Tanner Rotary Drum Continuous Process Name Role Phone Eloise Reeves DO Primary [...] Coronavirus/COVID-19? No / Unsure 11/04/2023 10:48 PM DIESEL MAINTENANCE ELECTRICIAN documented as of this encounter Plan of Treatment Not on file documented as of this encounter Procedures Procedure Name Priority Date/Time Associated Diagnosis Comments TELEMETRY STRIPS 11/08/2023 7:31 PM DIESEL MAINTENANCE ELECTRICIAN documented in this encounter Results * TELEMETRY STRIPS (11/08/2023 7:31 PM DIESEL MAINTENANCE ELECTRICIAN) Narrative 11/08/2023 7:31 PM DIESEL MAINTENANCE ELECTRICIAN Ordered by an unspecified provider. Provider Unknown RAD ECHO documented in this encounter Visit Diagnoses Not on filedocumented in this encounter Care Teams Tanner Rotary Drum Continuous Process Relationship Specialty Start Date End Date Eloise Reeves [address] [place] [address] PCP - General Family Medicine 11/06/23 documented as of this encounter
--- OUTSIDE RECORDS SUMMARY | 2023-12-13 13:36 | XMS_ITS | Encounter Summary ---
Author Name Unknown Organization [facility] Address [address] [place] [address] Phone Care Team Providers Care Audio Director Name Role Phone Eloise Reeves DO Primary Care Provider [phone] Encounter Details Date Type Department Care Team [...] Coronavirus/COVID-19? No / Unsure 11/04/2023 10:48 PM STARCH MANGLE TENDER documented as of this encounter Plan of Treatment Not on file documented as of this encounter Procedures Procedure Name Priority Date/Time Associated Diagnosis Comments TELEMETRY STRIPS 11/06/2023 8:49 AM STARCH MANGLE TENDER documented in this encounter Results * TELEMETRY STRIPS (11/06/2023 8:49 AM STARCH MANGLE TENDER) Narrative 11/06/2023 8:49 AM STARCH MANGLE TENDER Ordered by an unspecified provider. Provider Unknown RAD ECHO documented in this encounter Visit Diagnoses Not on filedocumented in this encounter Care Teams Audio Director Relationship Specialty Start Date End Date Eloise Reeves [address] [place] [address] PCP - General Family Medicine 11/06/23 documented as of this encounter
--- OUTSIDE RECORDS SUMMARY | 2023-12-13 13:36 | XMS_ITS | Encounter Summary ---
Author Name Unknown Organization [facility] Address [address] [place] [address] Phone Care Team Providers Care Front Services Agent Name Role Phone Eloise Reeves DO Primary Care Provider [phone] Encounter Details Date Type Department Care Team [...] Coronavirus/COVID-19? No / Unsure 11/04/2023 10:48 PM PROFESSOR OF LATIN AMERICAN STUDIES documented as of this encounter Plan of Treatment Not on file documented as of this encounter Procedures Procedure Name Priority Date/Time Associated Diagnosis Comments TELEMETRY STRIPS 11/06/2023 4:28 PM PROFESSOR OF LATIN AMERICAN STUDIES documented in this encounter Results * TELEMETRY STRIPS (11/06/2023 4:28 PM PROFESSOR OF LATIN AMERICAN STUDIES) Narrative 11/06/2023 4:28 PM PROFESSOR OF LATIN AMERICAN STUDIES Ordered by an unspecified provider. Provider Unknown RAD ECHO documented in this encounter Visit Diagnoses Not on filedocumented in this encounter Care Teams Front Services Agent Relationship Specialty Start Date End Date Eloise Reeves DO [address] [place] [address] PCP - General Family Medicine 11/06/23 documented as of this encounter
--- OUTSIDE RECORDS SUMMARY | 2023-12-13 13:36 | XMS_ITS | Encounter Summary ---
Author Name Unknown Organization [facility] Address [address] [place] [address] Phone Care Team Providers Care Plant Technician Name Role Phone Eloise Reeves DO Primary Care Provider [phone] Encounter Details Date Type Department Care Team [...] No / Unsure 11/04/2023 10:48 PM MANAGER UNIVERSITY documented as of this encounter Plan of Treatment Not on file documented as of this encounter Procedures Procedure Name Priority Date/Time Associated Diagnosis Comments TELEMETRY STRIPS 11/07/2023 7:31 PM MANAGER UNIVERSITY documented in this encounter Results * TELEMETRY STRIPS (11/07/2023 7:31 PM MANAGER UNIVERSITY) Narrative 11/07/2023 7:31 PM MANAGER UNIVERSITY Ordered by an unspecified provider. Provider Unknown RAD ECHO documented in this encounter Visit Diagnoses Not on filedocumented in this encounter Care Teams Plant Technician Relationship Specialty Start Date End Date Eloise Reeves DO [address] [place] [address] PCP - General Family Medicine 11/06/23 documented as of this encounter
--- OUTSIDE RECORDS SUMMARY | 2023-12-13 13:36 | XMS_ITS | Encounter Summary ---
Author Name Unknown Organization [facility] Address [address] [place] [phone] Phone Care Team Providers Care Granite Sandblaster Apprentice Name Role Phone Eloise Reeves DO Primary Care Provider [phone] Encounter Details Date Type Department Care Team [...] Coronavirus/COVID-19? No / Unsure 11/04/2023 10:48 PM MILL ROLL OPERATOR documented as of this encounter Plan of Treatment Not on file documented as of this encounter Procedures Procedure Name Priority Date/Time Associated Diagnosis Comments TELEMETRY STRIPS 11/09/2023 1:21 AM MILL ROLL OPERATOR documented in this encounter Results * TELEMETRY STRIPS (11/09/2023 1:21 AM MILL ROLL OPERATOR) Narrative 11/09/2023 1:21 AM MILL ROLL OPERATOR Ordered by an unspecified provider. Provider Unknown RAD ECHO documented in this encounter Visit Diagnoses Not on filedocumented in this encounter Care Teams Granite Sandblaster Apprentice Relationship Specialty Start Date End Date Eloise Reeves [address] [place] [address] PCP - General Family Medicine 11/06/23 documented as of this encounter
--- OUTSIDE RECORDS SUMMARY | 2023-12-13 13:36 | XMS_ITS | Encounter Summary ---
Author Name Unknown Organization [facility] Address [address] [place] [id number] Phone Care Team Providers Care Pet Handler Name Role Phone Eloise Reeves DO Primary Care Provider [phone] Encounter Details Date Type Department Care Team [...] No / Unsure 11/04/2023 10:48 PM AUTOMOBILE TESTER documented as of this encounter Plan of Treatment Not on file documented as of this encounter Procedures Procedure Name Priority Date/Time Associated Diagnosis Comments TELEMETRY STRIPS 11/09/2023 8:48 AM AUTOMOBILE TESTER documented in this encounter Results * TELEMETRY STRIPS (11/09/2023 8:48 AM AUTOMOBILE TESTER) Narrative 11/09/2023 8:48 AM AUTOMOBILE TESTER Ordered by an unspecified provider. Provider Unknown RAD ECHO documented in this encounter Visit Diagnoses Not on filedocumented in this encounter Care Teams Pet Handler Relationship Specialty Start Date End Date Eloise Reeves DO [address] [place] [address] PCP - General Family Medicine 11/06/23 documented as of this encounter
--- OUTSIDE RECORDS SUMMARY | 2023-12-13 13:36 | XMS_ITS | Encounter Summary ---
Author Name Unknown Organization [facility] Address [address] [place] [id number] Phone Care Team Providers Care Laborer Electroplating Name Role Phone Eloise Reeves DO Primary Care Provider [phone] Encounter Details Date Type Department Care Team [...] Coronavirus/COVID-19? No / Unsure 11/04/2023 10:48 PM BOND WRITER documented as of this encounter Plan of Treatment Not on file documented as of this encounter Procedures Procedure Name Priority Date/Time Associated Diagnosis Comments TELEMETRY STRIPS 11/07/2023 1:07 AM BOND WRITER documented in this encounter Results * TELEMETRY STRIPS (11/07/2023 1:07 AM BOND WRITER) Narrative 11/07/2023 1:07 AM BOND WRITER Ordered by an unspecified provider. Provider Unknown RAD ECHO documented in this encounter Visit Diagnoses Not on filedocumented in this encounter Care Teams Laborer Electroplating Relationship Specialty Start Date End Date Eloise Reeves DO [address] [place] [address] PCP - General Family Medicine 11/06/23 documented as of this encounter
--- OUTSIDE RECORDS SUMMARY | 2023-12-13 13:37 | XMS_ITS | Encounter Summary ---
Author Name Unknown Organization [facility] Address [address] [place] [id number] Phone Care Team Providers Care Pecan Mallow Dipper Name Role Phone Unavailable Primary Care Provider [...] Coronavirus/COVID-19? No / Unsure 11/04/2023 10:48 PM CISCO CERTIFIED INTERNETWORK EXPERT documented as of this encounter Plan of Treatment Not on file documented as of this encounter Visit Diagnoses Not on filedocumented in this encounter
--- OUTSIDE RECORDS SUMMARY | 2023-12-13 13:37 | XMS_ITS | Clinical Summary ---
Author Name Unknown Organization [employer] [employer] Address [place], [place] [address] Care Team Providers Care Heater Operator Helper Name Role Phone Eloise Reeves Primary Care Provider [phone] Allergies Active Allergy Reactions Criticality Noted Date Comments Adhesive Tape-Silicones Rash 12/31/2019 Morphine Rash 12/31/2019 Topiramate Hallucinations 06/01/2020 Medications Medication Sig Dispensed Refills Start Date End Date Status blood-glucose meterIndications:Co ntrolled type 2 diabetes mellitus without complication, without long-term current use of insulin (HC) Dispense meter, test strips, lancets covered by pt ins. E11.9 NIDDM type II - Test 2 times/day. Reason: not feeling well 1 Device 0 1 Active lancetsIndications: Controlled type 2 diabetes mellitus without complication, without long-term current use of insulin (HC) As directed. Test 2 times per day. 100 Each 1 1 Active blood sugar diagnostic (Blood Glucose Test) stripIndications:Co ntrolled type 2 diabetes mellitus without complication, without long-term current use of insulin (HC) As directed. Test 2 times per day. 100 Each 1 1 Active ferrous sulfate, 65 mg elemental, tabletIndications:A nemia due to acute blood loss Take 1 Tablet (325 mg) by mouth two times daily with meals. 90 Tablet 3 2 Active CPAPIndications:ROMAN (obstructive sleep apnea),Snoring New CPAP [...] Frequency of use: Daily 1 Each 11 2 Active venlafaxine (EFFEXOR XR) 150 mg Extended-Release capsuleIndications: Depression, recurrent (HC) Combine 75mg with 150mg to equal 225mg daily 90 Capsule 3 3 Active omeprazole (PRILOSEC) 20 mg Delayed-Release capsuleIndications: Gastric ulcer, unspecified chronicity, unspecified whether gastric ulcer hemorrhage or perforation present Take 1 Capsule (20 mg) by mouth two times daily before meals. 180 Capsule 3 3 Active cyanocobalamin (Vitamin B-12) 1,000 mcg tabletIndications:B 12 deficiency Take 1 Tablet (1,000 mcg) by mouth once daily. 90 Tablet 3 3 Active venlafaxine (EFFEXOR XR) 75 mg cp24 Extended-Release capsuleIndications: Anxiety Combine 75mg with 150mg to equal 225mg daily 90 Capsule 3 3 Active Additional Information Patient taking differently: 75 mg Oral TID, (No instructions reported), Reported on 12/12/2023 rosuvastatin (CRESTOR) 20 mg tabletIndications:H yperlipidemia, unspecified hyperlipidemia type Take 1 Tablet (20 mg) by mouth at bedtime. 90 Tablet 3 3 Active losartan (COZAAR) 25 mg tabletIndications:H TN (hypertension) Take 1 Tablet (25 mg) by mouth once daily. 90 Tablet 3 3 Active Additional Information Patient taking differently:25 mg OralBID, Reported on 12/12/2023 predniSONE (DELTASONE) 5 mg tabletIndications:G out of left foot, unspecified cause, unspecified chronicity Take 1 Tablet (5 mg) by mouth once daily with a meal. 30 Tablet 0 3 Active allopurinoL (ZYLOPRIM) 100 mg tabletIndications:G out of left foot, unspecified cause, unspecified chronicity Take 0.5 Tablets (50 mg) by mouth once daily. 45 Tablet 1 3 Active metFORMIN (GLUCOPHAGE) 500 mg tabletIndications:U ncontrolled type 2 diabetes mellitus with hyperglycemia (HC) Take 1 Tablet (500 mg) by mouth two times daily with meals. 180 Tablet 3 4 Active divalproex sprinkles (DEPAKOTE SPRINKLES) 125 mg capsule Take 125 mg by mouth once daily. 0 4 Active amLODIPine (NORVASC) 5 mg tablet Take 5 mg by mouth once daily. 0 Active carvediloL (COREG) 6.25 mg tablet Take 6.25 mg by mouth two times daily with meals. 0 3 Active potassium chloride (KLOR-CON M20) 20 mEq extended-release tablet (part/cryst) Take 40 mEq by mouth once daily with a meal. 0 4 Active diphenhydrAMINE-kirstin taminophen 25-500 mg (TYLENOL PM EXTRA STRENGTH) 25-500 mg tablet Take 1 tablet by mouth at bedtime if needed. Max acetaminophen dose: 4000mg in 24 hrs. 0 0 12/12/19 24 Discontinu ed(*Patien t states no longer taking) Active Problems Problem Noted Date Diagnosed Date [...] Encounters Date Type Department Care Team Description 12/13/2023 Telephone [facility] [address] [place] [address] Eloise Reeves DO Follow Up (Patient is in the hospital) 12/13/2023 Telephone [facility] [address] [place] [address] Eloise Reeves DO CALL (CALL BACK ) 12/12/2023 1:05 PM SCHOOL CUSTODIAN Office Visit [facility] [address] [place] [address] Eloise Reeves DO Hospital F/U 12/12/2023 Travel 12/11/2023 Telephone [facility] [address] [place] [address] Eloise Reeves DO Tremors 12/10/2023 Telephone [facility] [address] [place] [address] Eloise Reeves DO Concerns (12/12/23) 11/29/2023 Telephone [facility] [address] [place] [address] Eloise Reeves DO Appointment Request 11/22/2023 10:30 AM SCHOOL CUSTODIAN Office Visit [facility] [address] [place] [address] [address] LIC[place] Failed Appointment 11/02/2023 Telephone [facility] [address] [facility] [place] [address] Eloise Reeves, Results 11/01/2023 1:05 PM SCHOOL CUSTODIAN Office Visit [facility] [address] [place] [address] Eloise Reeves, Follow Up 11/01/2023 Orders Only [facility] [address] [place] [address] Eloise Reeves, <No scans attached> 11/01/2023 Travel 10/16/2023 10:30 AM SCHOOL CUSTODIAN Office Visit [facility] [address] [place] [address] [address] LICSW [facility] Visit 10/16/2023 Travel 10/10/2023 Telephone [facility] [address] [place] [address] Twan Suresh MD Referral (Patient is ready to be scheduled. Referral consult to Neurology. ) 10/09/2023 1:05 PM SCHOOL CUSTODIAN Office Visit [facility] [address] [place] [address] Eloise Reeves DO Follow Up; Tremors 10/09/2023 Telephone [facility] [address] [place] [address] García Driscoll MD Error-please disregard 10/09/2023 Travel 10/04/2023 10:30 AM SCHOOL CUSTODIAN Office Visit [facility] [address] [place] [address] [address] [place] LICSW Failed Appointment 09/28/2023 Telephone [facility] [address] [place] [address] Eloise Reeves DO Results 09/27/2023 Orders Only [facility] [address] [place] [address] Eloise Reeves DO <No scans attached> 09/26/2023 1:55 PM SCHOOL CUSTODIAN Office Visit [facility] [address] [facility] [place] [address] Eloise Reeves DO Dizziness (1 day); Nausea (1 day); Diarrhea (1 day); Urinary Problem (frequency) 09/26/2023 Travel 09/25/2023 Telephone [facility] [address] [facility] [address] Eloise Reeves DO Appointment Request (FOLLOW UP BEFORE 11-01-2023) 09/17/2023 10:30 AM SCHOOL CUSTODIAN Office Visit [facility] [address] [place] [address] [address], [facility] Visit 09/17/2023 Travel 09/13/2023 Telephone [facility] [address] [place] [address] Eloise Reeves DO Results 09/13/2023 Orders Only [facility] [address] [place] [address] Eloise Reeves DO <No scans attached> 09/12/2023 9:10 AM SCHOOL CUSTODIAN Office Visit [facility] [address] [place] [address] Eloise Reeves DO Diabetes 09/12/2023 Travel from [...] Comments Blood Pressure 126/70 12/12/2023 1:00 PM SCHOOL CUSTODIAN Pulse 108 12/12/2023 12:10 PM SCHOOL CUSTODIAN Temperature 37.1 ??C (98.8 ??F) 04/04/2022 12:51 PM C DT Respiratory Rate 16 08/22/2022 9:54 AM CDT Oxygen Saturation 99% 12/12/2023 12:10 PM SCHOOL CUSTODIAN Inhaled Oxygen Concentration - - Weight 67.6 kg (149 lb) 11/01/2023 11:36 AM SCHOOL CUSTODIAN Height 142.8 cm (4' 8.22) 01/02/2023 1:43 PM CS T Body Mass Index 33.14 01/02/2023 1:43 PM SCHOOL CUSTODIAN Plan of Treatment Upcoming Encounters Date Type Department Care Team (Late st Contact Info) Description 12/18/2023 9:35 AM SCHOOL CUSTODIAN Office Visit [facility] [address] [place] [address] Eloise Reevse, [address] [place] [address] Health Maintenance Due Date Last Done Comments [...] Diagnosis Comments CREATININE Routine 11/01/2023 12:37 PM SCHOOL CUSTODIAN Gout of left foot, unspecified cause, unspecified chronicity POTASSIUM Routine 11/01/2023 12:37 PM SCHOOL CUSTODIAN Hypokalemia URINALYSIS MICROSCOPIC Routine 09/26/2023 3:25 PM SCHOOL CUSTODIAN Urinary frequency UA W/ SEDIMENT EXAM REFLEXED PER CRITERIA Routine 09/26/2023 3:25 PM SCHOOL CUSTODIAN Urinary frequency BASIC METABOLIC PANEL Routine 09/26/2023 2:55 PM SCHOOL CUSTODIAN HTN (hypertension) HEMOGLOBIN Routine 09/26/2023 2:55 PM SCHOOL CUSTODIAN Anemia of unknown etiology SCAN CORRESP-LABORATORY RESULTS 09/12/2023 10:56 AM SCHOOL CUSTODIAN SCAN CORRESP-IMAGING 09/12/2023 10:56 AM SCHOOL CUSTODIAN SCAN CORRESP-IMAGING 09/12/2023 10:56 AM SCHOOL CUSTODIAN SCAN CORRESP-IMAGING 09/12/2023 10:56 AM SCHOOL CUSTODIAN VITAMIN B12 Add On 09/12/2023 9:30 AM SCHOOL CUSTODIAN Hallucinations BASIC METABOLIC PANEL Add On 09/12/2023 9:30 AM SCHOOL CUSTODIAN Hypertension IRON PLUS IRON BINDING CAP Add On 09/12/2023 9:30 AM SCHOOL CUSTODIAN Anemia of unknown etiology FERRITIN Add On 09/12/2023 9:30 AM SCHOOL CUSTODIAN Anemia of unknown etiology TSH WITH REFLEX Add On 09/12/2023 9:30 AM SCHOOL CUSTODIAN Hallucinations Other fatigue HEMOGLOBIN Routine 09/12/2023 9:30 AM SCHOOL CUSTODIAN Anemia of unknown etiology URIC ACID Routine 09/12/2023 9:30 AM SCHOOL CUSTODIAN History of gout POTASSIUM Routine 09/12/2023 9:30 AM SCHOOL CUSTODIAN Hypertension CREATININE Routine 09/12/2023 9:30 AM SCHOOL CUSTODIAN Hypertension HEMOGLOBIN A1C Routine 09/12/2023 9:30 AM SCHOOL CUSTODIAN Controlled type 2 diabetes mellitus without complication, without long-term current use of insulin (HC) from Last 3 Months Results * POTASSIUM (11/01/2023 12:37 PM SCHOOL CUSTODIAN) Only the most recent of2 resultswithin the time period is included. POTASSIUM 3.5 3.5 - 5.1 mmol/L 11/01/2023 9:42 PM SCHOOL CUSTODIAN [facility] Blood BLOOD SPECIMEN / Unknown Venipuncture / Unknown 11/01/2023 12:37 PM SCHOOL CUSTODIAN 11/01/2023 12:39 PM SCHOOL CUSTODIAN Eloiseher Cheri Reeves [employer] CHEMISTRY Performing Organization Address City/[facility]/ZIP Co de Phone Number [facility] [address] [place] [address], * (ABNORMAL) CREATININE (11/01/2023 12:37 PM SCHOOL CUSTODIAN) Only the most recent of2 resultswithin the time period is included. eGFR 73(L) >90 mL/min/1.7 3m2 11/01/2023 9:42 PM SCHOOL CUSTODIAN [facility] Comment:As of 2022, eG FR is calculated by the CKD-EPI creatinine equation without race adjustment. ??eGFR can be influenced by muscle mass, exercise, and diet. ??The reported eGFR is an estimation only and is only applicable if the renal function is stable. CREATININE 0.81 0.50 - 0.90 mg/dL 11/01/2023 9:42 PM SCHOOL CUSTODIAN [facility] Blood BLOOD SPECIMEN / Unknown Venipuncture / Unknown 11/01/2023 12:37 PM SCHOOL CUSTODIAN 11/01/2023 12:39 PM SCHOOL CUSTODIAN Eloise Reeves DO CHEMISTRY Performing Organization Address City/[facility]/ZIP Co de Phone Number [facility] [address] [place] [address], [place] * URINALYSIS MICROSCOPIC (09/26/2023 3:25 PM SCHOOL CUSTODIAN) RBC 0-2 0-2, None Seen /HPF 09/26/2023 3:35 PM SCHOOL CUSTODIAN [facility] WBC 0-2 0-2, 3-5, None Seen /HPF 09/26/2023 3:35 PM SCHOOL CUSTODIAN [facility] BACTERIA Few None Seen, Rare, Few Bacteria/H PF 09/26/2023 3:35 PM SCHOOL CUSTODIAN [facility] EPITHELIAL CELLS Few None Seen, Few Epi/HPF 09/26/2023 3:35 PM SCHOOL CUSTODIAN [facility] Mucus Present 09/26/2023 3:35 PM SCHOOL CUSTODIAN [facility] HYALINE CASTS 0-2 0-2, 3-5 /LPF 09/26/2023 3:35 PM SCHOOL CUSTODIAN [facility] Urine URINE SPECIMEN / Unknown Non-Blood / Unknown 09/26/2023 3:25 PM SCHOOL CUSTODIAN 09/26/2023 3:25 PM SCHOOL CUSTODIAN Narrative [facility] - 09/26/2023 3:35 PM SCHOOL CUSTODIAN <1.5 ml. ??QNS for accurate microscopic exam. ??Microscopic done on unspun urine. Eloise Reeves DO URINE [facility] [address] [place] [address], [place] [phone] * (ABNORMAL) UA W/ SEDIMENT EXAM REFLEXED PER CRITERIA (09/26/2023 3:25 PM SCHOOL CUSTODIAN) COLOR Yellow Yellow Color 09/26/2023 3:33 PM SCHOOL CUSTODIAN [facility] CLARITY Clear Clear Clarity 09/26/2023 3:33 PM [facility] SPECIFIC GRAVITY,URINE >=1.030(A) 1.010, 1.015, 1.020, 1.025 09/26/2023 3:33 PM [facility] PH,URINE 5.5 6.0, 7.0, 8.0, 5.5, 6.5, 7.5, 8.5 09/26/2023 3:33 PM SCHOOL CUSTODIAN [facility] UROBILINOGEN,QU ALITATIVE Normal Normal EU/dl 09/26/2023 3:33 PM SCHOOL CUSTODIAN [facility] PROTEIN, URINE 30(A) Negative mg/dL 09/26/2023 3:33 PM SCHOOL CUSTODIAN [facility] GLUCOSE, URINE Negative Negative mg/dL 09/26/2023 3:33 PM SCHOOL CUSTODIAN [facility] KETONES,URINE 15(A) Negative mg/dL 09/26/2023 3:33 PM SCHOOL CUSTODIAN [facility] BILIRUBIN,URINE Abnormal(A) Negative 09/26/20 3:33 PM SCHOOL CUSTODIAN [facility] Comment:A variety of metabol ites and/or medications may result in a positive bilirubin result. Clinical correlation is recommended. OCCULT BLOOD,URINE Negative Negative 09/26/2023 3:33 PM SCHOOL CUSTODIAN [facility] NITRITE Negative Negative 09/26/2023 3:33 PM SCHOOL CUSTODIAN [facility] LEUKOCYTE ESTERASE Negative Negative 09/26/2023 3:33 PM SCHOOL CUSTODIAN [facility] Urine URINE SPECIMEN / Unknown Non-Blood / Unknown 09/26/2023 3:25 PM SCHOOL CUSTODIAN 09/26/2023 3:25 PM SCHOOL CUSTODIAN Eloise Salazarmargy URINE Performing Organization Address City/[facility]/ZIP Co de Phone Number [facility] [address] [place] [address], [place] [phone] * (ABNORMAL) HEMOGLOBIN (09/26/2023 2:55 PM SCHOOL CUSTODIAN) Only the most recent of2 resultswithin the time period is included. HEMOGLOBIN 10.9(L) 12.0 - 16.0 g/dL 09/26/2023 3:04 PM SCHOOL CUSTODIAN [facility] MCV 82 80 - 100 fL 09/26/2023 3:04 PM SCHOOL CUSTODIAN [facility] Blood BLOOD SPECIMEN / Unknown Venipuncture / Unknown 09/26/2023 2:55 PM SCHOOL CUSTODIAN 09/26/2023 2:56 PM SCHOOL CUSTODIAN Eloise Reeves HEMATOLOGY Performing Organization Address City/[facility]/ZIP Co de Phone Number [facility] [address] [place] [address], [place] [phone] * (ABNORMAL) BASIC METABOLIC PANEL (09/26/2023 2:55 PM SCHOOL CUSTODIAN) Only the most recent of2 resultswithin the time period is included. SODIUM 140 136 - 145 mmol/L 09/26/2023 10:22 PM SCHOOL CUSTODIAN [facility] POTASSIUM 3.3(L) 3.5 - 5.1 mmol/L 09/26/2023 10:22 PM SCHOOL CUSTODIAN [facility] CHLORIDE 101 98 - 107 mmol/L 09/26/2023 10:22 PM [facility] CO2,TOTAL 26 22 - 29 mmol/L 09/26/2023 10:22 PM [facility] ANION GAP 13 5 - 18 09/26/2023 10:22 PM [facility] GLUCOSE 112(H) 70 - 99 mg/dL 09/26/2023 10:22 PM [facility] CALCIUM 9.7 8.8 - 10.2 mg/dL 09/26/2023 10:22 PM [facility] BUN 17 8 - 23 mg/dL 09/26/2023 10:22 PM [facility] CREATININE 1.08(H) 0.50 - 0.90 mg/dL 09/26/2023 10:22 PM [facility] BUN/CREAT RATIO 16 10 - 20 10:22 PM [facility] eGFR 52(L) >90 mL/min/1.7 3m2 09/26/2023 10:22 PM [facility] Comment:As of 2022, eG FR is calculated by the CKD-EPI creatinine equation without race adjustment. ??eGFR can be influenced by muscle mass, exercise, and diet. ??The reported eGFR is an estimation only and is only applicable if the renal function is stable. Blood BLOOD SPECIMEN / Unknown Venipuncture / Unknown 09/26/2023 2:55 PM SCHOOL CUSTODIAN 09/26/2023 2:56 PM SCHOOL CUSTODIAN Eloise Reeves DO CHEMISTRY [facility] [address] [place] [address], * SCAN CORRESP-LABORATORY RESULTS (09/12/2023 10:56 AM SCHOOL CUSTODIAN) Narrative 09/12/2023 10:56 AM SCHOOL CUSTODIAN Ordered by an unspecified provider. Other Clinical Staff OTHER * SCAN CORRESP-IMAGING (09/12/2023 10:56 AM SCHOOL CUSTODIAN) Only the most recent of3 resultswithin the time period is included. Anatomical Region Laterality Modality Other Narrative 09/12/2023 10:56 AM SCHOOL CUSTODIAN Ordered by an unspecified provider. Other Clinical Staff OTHER * TSH WITH REFLEX (09/12/2023 9:30 AM SCHOOL CUSTODIAN) TSH 0.72 0.27 - 4.20 uIU/mL 09/12/2023 6:43 PM SCHOOL CUSTODIAN [facility] Blood BLOOD SPECIMEN / Unknown Venipuncture / Unknown 09/12/2023 9:30 AM SCHOOL CUSTODIAN 09/12/2023 9:33 AM SCHOOL CUSTODIAN Narrative [facility] - 09/12/2023 6:43 PM SCHOOL CUSTODIAN In Adults, TSH values between 5.00 and 10.00 uIU/ml do not necessarily indicate the presence of Hypothyroidism. Correlation with clinical findings such as presence of goiter and/or Thyroperoxidase (TPO) Antibody may be helpful. For more information please refer to NIKKIE 2004; 291: 228-238. [employer] CHEMISTRY [facility] [address] [place] [phone], * (ABNORMAL) IRON PLUS IRON BINDING CAP (09/12/2023 9:30 AM SCHOOL CUSTODIAN) IRON 35(L) 37 - 145 ug/dL 09/12/2023 6:43 PM SCHOOL CUSTODIAN [facility] UIBC (UNSATURATED) 277 112 - 347 ug/dL 09/12/2023 6:43 PM SCHOOL CUSTODIAN [facility] IRON BINDING CAPACITY 312 250 - 400 ug/dL 09/12/2023 6:43 PM SCHOOL CUSTODIAN [facility] IRON,% SATURATION 11(L) 14 - 50 % 09/12/2023 6:43 PM SCHOOL CUSTODIAN [facility] Blood BLOOD SPECIMEN / Unknown Venipuncture / Unknown 09/12/2023 9:30 AM SCHOOL CUSTODIAN 09/12/2023 9:33 AM SCHOOL CUSTODIAN Eloise Cheri Stortz DO CHEMISTRY Performing Organization Address [facility] de Phone Number [facility] [address] [place] [address], * (ABNORMAL) URIC ACID (09/12/2023 9:30 AM SCHOOL CUSTODIAN) URIC ACID 9.4(H) 2.4 - 5.7 mg/dL 09/12/2023 7:06 PM SCHOOL CUSTODIAN [facility] Blood BLOOD SPECIMEN / Unknown Venipuncture / Unknown 09/12/2023 9:30 AM SCHOOL CUSTODIAN 09/12/2023 9:33 AM SCHOOL CUSTODIAN Eloise Reeves DO CHEMISTRY Performing Organization Address [facility] de Phone Number [facility] [address] [place] [address], * (ABNORMAL) HEMOGLOBIN A1C MONITORING (POCT) (09/12/2023 9:30 AM SCHOOL CUSTODIAN) HEMOGLOBIN A1C MONITORING (POCT) 8.4(H) <=6.4 % 09/12/2023 10:00 AM SCHOOL CUSTODIAN [facility] Blood BLOOD SPECIMEN / Unknown Venipuncture / Unknown 09/12/2023 9:30 AM SCHOOL CUSTODIAN 09/12/2023 9:33 AM SCHOOL CUSTODIAN Narrative [facility] - 09/12/2023 10:00 AM SCHOOL CUSTODIAN ? (<=6.9%) ? Indicates good control [...] Eloise Reeves DO CHEMISTRY Performing Organization Address [facility] Co de Phone Number [facility] [address] [place] [address], [place] [phone] * FERRITIN (09/12/2023 9:30 AM SCHOOL CUSTODIAN) FERRITIN 26.8 15.0 - 150.0 ng/mL 09/12/2023 6:43 PM SCHOOL CUSTODIAN [facility] Blood BLOOD SPECIMEN / Unknown Venipuncture / Unknown 09/12/2023 9:30 AM SCHOOL CUSTODIAN 09/12/2023 9:33 AM SCHOOL CUSTODIAN Eloise Cheri Reeves DO CHEMISTRY Performing Organization Address [facility]/ZIP Co de Phone Number [facility] [address] [address], [place] * (ABNORMAL) VITAMIN B12 (09/12/2023 9:30 AM SCHOOL CUSTODIAN) VITAMIN B12 1,253(H) 232 - 1,245 pg/mL 09/12/2023 6:43 PM SCHOOL CUSTODIAN [facility] Blood BLOOD SPECIMEN / Unknown Venipuncture / Unknown 09/12/2023 9:30 AM SCHOOL CUSTODIAN 09/12/2023 9:33 AM SCHOOL CUSTODIAN Narrative [facility] - 09/12/2023 6:43 PM SCHOOL CUSTODIAN Biotin supplements may cause clinically significant interference for this test assay. ??If interference is suspected, it is strongly recommended that biotin is discontinued for at least one week prior to retesting. Eloise Reeves DO CHEMISTRY Performing Organization Address City/[facility]/ZIP Co de Phone Number [facility] [employer] [facility] [address] [address], [place] from Last 3 Months Care Teams Heater Operator Helper Relationship Specialty Start Date End Date Eloise Reeves DO [address] [place] [address] PCP - General Family Practice 05/13/20
--- OUTSIDE RECORDS SUMMARY | 2023-12-13 13:37 | XMS_ITS | Encounter Summary ---
Author Name Unknown Organization [facility] Address [address] [place] [address] Phone Care Team Providers Care Culinary Internship Name Role Phone Eloise Reeves DO Primary Care Provider [phone] Encounter Details Date Type Department Care Team [...] Coronavirus/COVID-19? No / Unsure 11/04/2023 10:48 PM RESIN PAINTER documented as of this encounter Plan of Treatment Not on file documented as of this encounter Procedures Procedure Name Priority Date/Time Associated Diagnosis Comments TELEMETRY STRIPS 11/05/2023 9:25 AM RESIN PAINTER documented in this encounter Results * TELEMETRY STRIPS (11/05/2023 9:25 AM RESIN PAINTER) Narrative 11/05/2023 9:25 AM RESIN PAINTER Ordered by an unspecified provider. Provider Unknown RAD ECHO documented in this encounter Visit Diagnoses Not on filedocumented in this encounter Care Teams Culinary Internship Relationship Specialty Start Date End Date Eloise Reeves [address] [place] [address] PCP - General Family Medicine 11/06/23 documented as of this encounter
--- OUTSIDE RECORDS SUMMARY | 2023-12-13 13:37 | XMS_ITS | Encounter Summary ---
Author Name Unknown Organization [facility] Address [address] [place] [id number] Phone Care Team Providers Care Inspector Production [employer] Name Role Phone Eloise Reeves DO Primary Care Provider [phone] Encounter Details Date Type Department Care Team [...] Coronavirus/COVID-19? No / Unsure 11/04/2023 10:48 PM PROFESSIONAL WRESTLER documented as of this encounter Plan of Treatment Not on file documented as of this encounter Procedures Procedure Name Priority Date/Time Associated Diagnosis Comments TELEMETRY STRIPS 11/06/2023 1:52 AM PROFESSIONAL WRESTLER documented in this encounter Results * TELEMETRY STRIPS (11/06/2023 1:52 AM PROFESSIONAL WRESTLER) Narrative 11/06/2023 1:52 AM PROFESSIONAL WRESTLER Ordered by an unspecified provider. Provider Unknown RAD ECHO documented in this encounter Visit Diagnoses Not on filedocumented in this encounter Care Teams Inspector Production [employer] Relationship Specialty Start Date End Date Eloise Reeves DO [address] [place] [address] PCP - General Family Medicine 11/06/23 documented as of this encounter
--- NOTE | 2023-12-13 16:30 | PC.SOCIAL ---
Phone call to pt's , call was answered but there was no response. Called pt's 4 separate times. Phone call to pt's daughter, Katelin, to follow up on pt's recent ED visits. Pt presented to the ED today and left AMA and was not seen by a provider. Pt's daughter was aware that pt was in the ED today, but was not aware of pt's current whereabouts. Pt's daughter states that she is pt's POA and is working on behind the scene work to get pt into a half-way placement, but states that pt is triggered and becomes upset if daughter is involved in her direct care. Daughter reports that pt has memory care issues but does not have an official Dementia diagnosis. Pt's daughter toured the [facility] today, but informs she was not impressed. Pt's daughter has also reached out to [facility] for more information. Offered to provide pt's daughter with a list of area assisted living facilities. Daughter would like the list e-mailed to her at [email or web address] ([email or web address]). Daughter also requests a list of SNF's in the area. Pt's daughter informs that pt needs to complete a medical assistance application for half-way care services. Pt's daughter is discussing medical assistance with the senior linkage line. Provided pt's daughter with contact information for social work department if she has any further questions. Sent an e-mail to pt's daughter providing requested resources. Provided a link to the medical assistance application for half-way care. Social work will follow up as needed.
== END 2023-12-13 13:37 | disposition home or self-care (01) ==
LOC: ED 13:31
PROVIDERS: Emergency Provider Emergency Medicine; PCP Family Medicine
DX: Z53.21 Procedure and treatment not carried out due to patient leaving prior to being seen by health care provider (principal)
CPT/HCPCS: 99281

== ENCOUNTER 2023-12-15 19:07 | Emergency (ER) | payer MEDICARE, SELFPAY ==
[2023-12-15 19:20] VITALS: BP 150/82; PULSE 93; RESP 16; TEMP 36.6; O2SAT 100; BMI 28.2
--- NOTE | 2023-12-15 20:07 | ED.GENADULT ---
HPI - General Adult General Chief complaint: Abdominal Pain Stated complaint: bowel issues Time Seen by Provider: 12/15/23 19:35 Source: patient Mode of arrival: ambulatory Limitations: no limitations History of Present Illness HPI narrative: 83-year-old female, frequent patient to the ER, presenting today with concerns about a bump on her abdominal wall. Patient states that she was having a bowel movement earlier in the day and she states that it got stuck. She used two fingers to remove the lump of stool from the rectum. Later in the day she felt a small lump on the anterior abdominal wall and she is concerned that she has ruptured her bowels with her fingers. No nausea or vomiting. Related Data Home Medications Medication Instructions Recorded Confirmed amlodipine 2.5 mg tablet 5 mg PO DAILY 03/20/23 12/13/23 carvedilol 12.5 mg tablet 6.25 mg PO BID 03/20/23 12/13/23 chlorthalidone 25 mg tablet 25 mg PO DAILY 03/20/23 12/13/23 cyanocobalamin (vitamin B-12) 1,000 mcg PO DAILY 03/20/23 12/13/23 1,000 mcg tablet ferrous sulfate 325 mg (65 mg 325 mg PO BID 03/20/23 12/13/23 iron) tablet (FeroSul) losartan 100 mg tablet 100 mg PO DAILY 03/20/23 12/13/23 metformin 1,000 mg tablet 1,000 mg PO BID 03/20/23 12/13/23 omeprazole 20 mg capsule,delayed 20 mg PO BID 03/20/23 12/13/23 release rosuvastatin 10 mg tablet 10 mg PO QPM 03/20/23 12/13/23 venlafaxine 150 mg 50 mg PO DAILY 03/20/23 12/13/23 capsule,extended release 24 hr venlafaxine 75 mg capsule,extended 50 mg PO DAILY 03/20/23 12/13/23 release 24 hr allopurinol 100 mg tablet 50 mg PO DAILY 12/12/23 12/13/23 divalproex 250 mg tablet,delayed 250 mg PO QHS 12/12/23 12/13/23 release (Depakote) lorazepam 0.5 mg tablet (Ativan) 0.5 mg PO TID PRN 12/12/23 12/13/23 losartan 25 mg tablet 25 mg PO DAILY 12/12/23 12/13/23 melatonin 3 mg capsule 3 mg PO QHS 12/12/23 12/13/23 potassium chloride 20 mEq 20 meq PO BID 12/12/23 12/13/23 tablet,extended release(part/cryst) rosuvastatin 20 mg tablet 20 mg PO QPM 12/12/23 12/13/23 sennosides 8.6 mg-docusate sodium 1 tab-cap PO BID 12/12/23 12/13/23 50 mg tablet (Senna-S) Previous Rx's Medication Instructions Recorded benzonatate 100 mg capsule 100 mg PO BID-TID PRN cough #20 08/17/23 caps donepezil 5 mg tablet (Aricept) 5 mg PO QHS #14 tabs 12/12/23 gabapentin 100 mg capsule 100 mg PO QHS #14 caps 12/12/23 Allergies Allergy/AdvReac Type Severity Reaction Status Date / Time latex Allergy Verified 12/13/23 11:37 morphine Allergy Rash Verified 12/13/23 11:37 silicone Allergy Rash Verified 12/13/23 11:37 topiramate [From Topamax] Allergy Hallucinati Verified 12/13/23 11:37 ng surgical tape Allergy Uncoded 09/05/23 08:49 Review of Systems Status of ROS: Reports: 6 or more systems reviewed and unremarkable except as noted in History and below [facility] Social History Smoking Status: Never smoker Do you use any of these nicotine containing products: None How often do you have a drink containing alcohol: monthly or less AUDIT-C Alcohol total score: 1 Non-prescribed substance use: denies use service: No Exam Narrative: Exam Narrative: Well-nourished well-developed patient , very anxious. Alert and oriented x3. Answers questions appropriately. Patient speaks in full sentences without needing to catch her breath. HEENT: Normocephalic atraumatic. Pupils are equally round reactive to light. Extraocular muscles are intact. Conjunctivae are moist without any icterus noted. Moist mucous membranes. Abdomen: Soft and nontender nondistended with normal bowel sounds. Multiple scars on anterior abdomen. On the right lower quadrant she has about a pea-sized lump that is firm, nontender, no overlying skin changes. Skin: Warm dry and intact. Const: Vital Signs, click to edit/add: Vital Signs - 24 hr 12/15/23 19:20 Temperature 98 F Pulse Rate [Pulse Oximeter] 93 Respiratory Rate 16 Blood Pressure [Ri ght Upper Arm] 150/82 H Pulse Oximetry 100 Oxygen Delivery Me thod Room Air Course Vital Signs Vital signs: Initial Vital Signs Temperature 98 F 12/15/23 19:20 Temperature Source Temporal Artery Scan 12/15/23 19:20 Pulse Rate 93 12/15/23 19:20 Respiratory Rate 16 12/15/23 19:20 Blood Pressure 150/82 H 12/15/23 19:20 Blood Pressure Mean 104 12/15/23 19:20 Blood Pressure Position Sitting 12/15/23 19:20 Pulse Oximetry 100 12/15/23 19:20 Oxygen Delivery Method Room Air 12/15/23 19:20 Vital Signs Temperature 98 F 12/15/23 19:20 Pulse Rate 93 12/15/23 19:20 Respiratory Rate 16 12/15/23 19:20 Blood Pressure 150/82 H 12/15/23 19:20 Pulse Oximetry 100 12/15/23 19:20 Oxygen Delivery Method Room Air 12/15/23 19:20 Temperature 98 F 12/15/23 19:20 Pulse Rate 93 12/15/23 19:20 Respiratory Rate 16 12/15/23 19:20 Blood Pressure 150/82 H 12/15/23 19:20 Pulse Oximetry 100 12/15/23 19:20 Oxygen Delivery Method Room Air 12/15/23 19:20 Medical Decision Making MDM Narrative Medical decision making narrative: 83-year-old female with a small superficial lump on the anterior abdominal wall. We discussed it being a lipoma, palpable stool. In any case patient is reassured that this is nothing to be concerned about and that she did not rupture her bowels. Medical Records Medical records reviewed: Yes I reviewed the patient's medical records Discharge Plan Discharge Clinical Impression: Lipoma, Abdominal wall mass Patient Disposition: Home, Self-Care Condition: Stable Additional Instructions: You do not need to be worried about that little lump you feel on the abdomen. This is either some small amount of stool or a small lump made out of fast cells. Neither of which are worrisome. Prescriptions: No Action benzonatate 100 mg capsule 100 mg PO BID-TID PRN (Reason: cough) Qty: 20 0RF potassium chloride 20 mEq tablet,ER particles/crystals 20 meq PO BID losartan 25 mg tablet 25 mg PO DAILY melatonin 3 mg capsule 3 mg PO QHS allopurinol 100 mg tablet 50 mg PO DAILY rosuvastatin 20 mg tablet 20 mg PO QPM divalproex [Depakote] 250 mg tablet,delayed release (DR/EC) 250 mg PO QHS lorazepam [Ativan] 0.5 mg tablet 0.5 mg PO TID PRN sennosides-docusate sodium [Senna-S] 8.6-50 mg tablet 1 tab-cap PO BID donepezil [Aricept] 5 mg tablet 5 mg PO QHS Qty: 14 2RF gabapentin 100 mg capsule 100 mg PO QHS Qty: 14 2RF venlafaxine 75 mg capsule,extended release 24hr 50 mg PO DAILY carvedilol 12.5 mg tablet 6.25 mg PO BID venlafaxine 150 mg capsule,extended release 24hr 50 mg PO DAILY cyanocobalamin (vitamin B-12) 1,000 mcg tablet 1,000 mcg PO DAILY amlodipine 2.5 mg tablet 5 mg PO DAILY chlorthalidone 25 mg tablet 25 mg PO DAILY ferrous sulfate [FeroSul] 325 mg (65 mg iron) tablet 325 mg PO BID metformin 1,000 mg tablet 1,000 mg PO BID omeprazole 20 mg capsule,delayed release(DR/EC) 20 mg PO BID losartan 100 mg tablet 100 mg PO DAILY rosuvastatin 10 mg tablet 10 mg PO QPM Follow Up/Referrals: Eloise Reeves DO [Primary Care Provider] - Stand Alone Forms: [facility] Info Instructions
--- OUTSIDE RECORDS SUMMARY | 2023-12-15 20:13 | XMS_ITS | Referral Summary ---
Author Name Unknown Organization [facility] Address [address] [place] [address] Phone Care Team Providers Care Licensed Massage Therapist Name Role Phone Eloise Reeves Sushil BUSBY Primary Care Provider [phone] Source Comments [employer] is fully rolled out on [employer]. Last update 04/02/09.[facility] Encounters Date Type Department Care Team Description 11/27/2023 1:00 PM CONVENTION WORKER [facility] [address] [address] Leidy Velazquez, PAElodiaC Mild traumatic brain injury, with loss of consciousness of 30 minutes or less, initial encounter ([facility]) (Primary Dx); Reversed sleep wake cycle; Lack of appetite Discharge Disposition: Discharged to home or self care (routine discharge) 11/04/2023 10:39 PM CONVENTION WORKER - 11/16/2023 9:19 AM CONVENTION WORKER Hospital Encounter [facility] [place]/Trauma/Kimmie ro [address] [place] [address] Devin Dougherty MD Petrun, Branden, MD [place], [...] Comments Blood Pressure 108/71 11/27/2023 12:54 PM CONVENTION WORKER Pulse 74 11/27/2023 12:54 PM CONVENTION WORKER Temperature 36.6 ??C (97.8 ??F) 11/16/2023 4:25 AM CS T Respiratory Rate 16 11/16/2023 4:25 AM CONVENTION WORKER Oxygen Saturation 90% 11/16/2023 4:25 AM CONVENTION WORKER Inhaled Oxygen Concentration - - Weight 61.6 kg (135 lb 12.8 oz) 024 12:54 PM CONVENTION WORKER Height 147.3 cm (4' 10) 11/05/2023 12: 03 AM CONVENTION WORKER Body Mass Index 28.38 11/05/2023 12:03 AM CONVENTION WORKER Plan of Treatment Not on file Procedures Procedure Name Priority Date/Time Associated Diagnosis Comments PANEL BASIC METABOLIC (BMP) Routine 11/16/2023 7:22 AM CONVENTION WORKER POC GLUCOSE Routine 11/16/2023 6:58 AM CONVENTION WORKER POC GLUCOSE Routine 11/15/2023 9:15 PM CONVENTION WORKER POC GLUCOSE Routine 11/15/2023 4:09 PM CONVENTION WORKER POC GLUCOSE Routine 11/15/2023 12:46 PM CONVENTION WORKER PANEL BASIC METABOLIC (BMP) Routine 11/15/2023 7:39 AM CONVENTION WORKER POC GLUCOSE Routine 11/15/2023 6:11 AM CONVENTION WORKER POC GLUCOSE Routine 11/14/2023 9:02 PM CONVENTION WORKER POC GLUCOSE Routine 11/14/2023 4:21 PM CONVENTION WORKER POC GLUCOSE Routine 11/14/2023 12:19 PM CONVENTION WORKER PANEL BASIC METABOLIC (BMP) Routine 11/14/2023 8:59 AM CONVENTION WORKER POC GLUCOSE Routine 11/14/2023 8:11 AM CONVENTION WORKER POC GLUCOSE Routine 11/13/2023 9:15 PM CONVENTION WORKER POC GLUCOSE Routine 11/13/2023 4:03 PM CONVENTION WORKER POC GLUCOSE Routine 11/13/2023 11:21 AM CONVENTION WORKER PANEL BASIC METABOLIC (BMP) Routine 11/13/2023 6:41 AM CONVENTION WORKER POC GLUCOSE Routine 11/13/2023 6:31 AM CONVENTION WORKER POC GLUCOSE Routine 11/12/2023 9:21 PM CONVENTION WORKER POC GLUCOSE Routine 11/12/2023 4:12 PM CONVENTION WORKER PANEL BASIC METABOLIC (BMP) Timed 11/12/2023 1:01 PM CONVENTION WORKER POC GLUCOSE Routine 11/12/2023 12:14 PM CONVENTION WORKER POC GLUCOSE Routine 11/12/2023 6:09 AM CONVENTION WORKER POC GLUCOSE Routine 11/11/2023 8:48 PM CONVENTION WORKER POC GLUCOSE Routine 11/11/2023 4:11 PM CONVENTION WORKER POC GLUCOSE Routine 11/11/2023 11:47 AM CONVENTION WORKER PHOSPHORUS Routine 11/11/2023 6:09 AM CONVENTION WORKER PANEL BASIC METABOLIC (BMP) Routine 11/11/2023 6:09 AM CONVENTION WORKER MAGNESIUM Routine 11/11/2023 6:09 AM CONVENTION WORKER TC LAB BLOOD DRAW BY VENIPUNCTURE Routine 11/11/2023 6:09 AM CONVENTION WORKER POC GLUCOSE Routine 11/10/2023 8:58 PM CONVENTION WORKER POC GLUCOSE Routine 11/10/2023 4:16 PM CONVENTION WORKER POC GLUCOSE Routine 11/10/2023 11:15 AM CONVENTION WORKER PHOSPHORUS Routine 11/10/2023 6:17 AM CONVENTION WORKER PANEL BASIC METABOLIC (BMP) Routine 11/10/2023 6:17 AM CONVENTION WORKER MAGNESIUM Routine 11/10/2023 6:17 AM CONVENTION WORKER PC LAB CBC/PLT Routine 11/10/2023 6:17 AM CONVENTION WORKER POC GLUCOSE Routine 11/09/2023 9:41 PM CONVENTION WORKER POC GLUCOSE Routine 11/09/2023 3:58 PM CONVENTION WORKER ANTI XA ASSAY LMW HEPARIN Timed 11/09/2023 2:18 PM CONVENTION WORKER POC GLUCOSE Routine 11/09/2023 11:28 AM CONVENTION WORKER XR FOOT RIGHT 3 V AP/OBL/LAT* Routine 11/09/2023 10:36 AM CONVENTION WORKER TELEMETRY STRIPS 11/09/2023 8:48 AM CONVENTION WORKER POC GLUCOSE Routine 11/09/2023 5:46 AM CONVENTION WORKER PC VALPROIC ACID LEVEL DEPAHOTE Routine 11/09/2023 5:41 AM CONVENTION WORKER PHOSPHORUS Routine 11/09/2023 5:41 AM CONVENTION WORKER PANEL BASIC METABOLIC (BMP) Routine 11/09/2023 5:41 AM CONVENTION WORKER MAGNESIUM Routine 11/09/2023 5:41 AM CONVENTION WORKER PC LAB CBC/PLT Routine 11/09/2023 5:41 AM CONVENTION WORKER TELEMETRY STRIPS 11/09/2023 1:21 AM CONVENTION WORKER POC GLUCOSE Routine 11/08/2023 8:40 PM CONVENTION WORKER TELEMETRY STRIPS 11/08/2023 7:31 PM CONVENTION WORKER PHOSPHORUS Routine 11/08/2023 4:20 PM CONVENTION WORKER MAGNESIUM Routine 11/08/2023 4:20 PM CONVENTION WORKER PANEL BASIC METABOLIC (BMP) Routine 11/08/2023 4:20 PM CONVENTION WORKER TC LAB BLOOD DRAW BY VENIPUNCTURE Routine 11/08/2023 4:20 PM CONVENTION WORKER POC GLUCOSE Routine 11/08/2023 3:56 PM CONVENTION WORKER POC GLUCOSE Routine 11/08/2023 11:03 AM CONVENTION WORKER TELEMETRY STRIPS 11/08/2023 9:49 AM CONVENTION WORKER XR CHEST 1 VIEW AP OR PA* Routine 11/08/2023 6:30 AM CONVENTION WORKER POC GLUCOSE Routine 11/08/2023 6:22 AM CONVENTION WORKER TELEMETRY STRIPS 11/08/2023 2:59 AM CONVENTION WORKER POC GLUCOSE Routine 11/07/2023 9:34 PM CONVENTION WORKER TELEMETRY STRIPS 11/07/2023 7:31 PM CONVENTION WORKER POC GLUCOSE Routine 11/07/2023 4:06 PM CONVENTION WORKER POC GLUCOSE Routine 11/07/2023 11:45 AM CONVENTION WORKER XR CHEST 2 VIEWS PA + LAT* Routine 11/07/2023 10:07 AM CONVENTION WORKER TELEMETRY STRIPS 11/07/2023 9:29 AM CONVENTION WORKER PC PROCALCITONIN (PCT) Routine 8:34 AM CONVENTION WORKER PC LAB CBC/PLT Routine 11/07/2023 8:34 AM CONVENTION WORKER PANEL BASIC METABOLIC (BMP) Routine 11/07/2023 8:34 AM CONVENTION WORKER MAGNESIUM Routine 11/07/2023 8:34 AM CONVENTION WORKER PHOSPHORUS Routine 11/07/2023 8:34 AM CONVENTION WORKER POC GLUCOSE Routine 11/07/2023 5:45 AM CONVENTION WORKER TELEMETRY STRIPS 11/07/2023 1:07 AM CONVENTION WORKER POC GLUCOSE Routine 11/06/2023 9:21 PM CONVENTION WORKER TELEMETRY STRIPS 11/06/2023 4:28 PM CONVENTION WORKER PC GASES,BLOOD,ANY COMB OF PH,PCD2,PO2,CO2,HCO2 Routine 11/06/2023 1:06 PM CONVENTION WORKER MAGNESIUM Timed 11/06/2023 1:06 PM CONVENTION WORKER PHOSPHORUS Timed 11/06/2023 1:06 PM CONVENTION WORKER PANEL BASIC METABOLIC (BMP) Timed 11/06/2023 1:06 PM CONVENTION WORKER PC LAB CBC/PLT Timed 11/06/2023 1:06 PM CONVENTION WORKER POC GLUCOSE Routine 11/06/2023 1:04 PM CONVENTION WORKER POC GLUCOSE Routine 11/06/2023 10:49 AM CONVENTION WORKER TELEMETRY STRIPS 11/06/2023 8:49 AM CONVENTION WORKER PC LAB GLYCOSYLATED HGB Routine 11/06/2023 6:31 AM CONVENTION WORKER PROTHROMBIN (PT) & INR Timed 6:31 AM CONVENTION WORKER PC PHOSPHORUS INORGANIC(PHOSPHATE) Routine 11/06/2023 6:31 AM CONVENTION WORKER PC MAGNESIUM, SERUM Routine 11/06/2023 6 :31 AM CONVENTION WORKER PC LAB CBC/PLT Routine 11/06/2023 6:31 AM CONVENTION WORKER TC LAB BLOOD DRAW BY VENIPUNCTURE Routine 11/06/2023 6:31 AM CONVENTION WORKER POC GLUCOSE Routine 11/06/2023 5:39 AM CONVENTION WORKER TELEMETRY STRIPS 11/06/2023 1:52 AM CONVENTION WORKER POC GLUCOSE Routine 11/05/2023 4:54 PM CONVENTION WORKER MAGNESIUM Routine 11/05/2023 4:48 PM CONVENTION WORKER POTASSIUM Routine 11/05/2023 4:[address] HEAD NO IV CONTRAST Timed 11:44 AM CONVENTION WORKER POC GLUCOSE Routine 11/05/2023 11:11 AM CONVENTION WORKER TELEMETRY STRIPS 11/05/2023 9:25 AM CONVENTION WORKER EKG ADULT (12-LEAD) Routine 11/05/2023 6 :38 AM CONVENTION WORKER POC GLUCOSE Routine 11/05/2023 6:[address] HEAD NO IV CONTRAST Timed 4:54 AM CONVENTION WORKER PROTHROMBIN (PT) & INR Timed 4:27 AM CONVENTION WORKER PC PHOSPHORUS INORGANIC(PHOSPHATE) Routine 11/05/2023 4:27 AM CONVENTION WORKER PC MAGNESIUM, SERUM Routine 11/05/2023 4 :27 AM CONVENTION WORKER PC GASES,BLOOD,ANY COMB OF PH,PCD2,PO2,CO2,HCO2 Routine 11/05/2023 4:27 AM CONVENTION WORKER PC LAB CBC/PLT Routine 11/05/2023 4:27 AM CONVENTION WORKER TC LAB BLOOD DRAW BY VENIPUNCTURE Routine 11/05/2023 4:27 AM CONVENTION WORKER PC TROPONIN QUANTITATIVE Timed 11/05/2023 4:27 AM CONVENTION WORKER PC TROPONIN QUANTITATIVE Timed 11/05/2023 2:58 AM CONVENTION WORKER CK, TOTAL STAT 11/05/2023 1:32 AM CONVENTION WORKER FIBRINOGEN STAT 11/05/2023 1:32 AM CONVENTION WORKER PC LAB PTT STAT 11/05/2023 1:32 AM CONVENTION WORKER PANEL HEPATIC FUNCTION STAT 1:32 AM CONVENTION WORKER PC LAB CBC/PLT STAT 11/05/2023 1:32 AM CONVENTION WORKER PANEL BASIC METABOLIC (BMP) STAT 11/05/2023 1:32 AM CONVENTION WORKER MAGNESIUM STAT 11/05/2023 1:32 AM CONVENTION WORKER PHOSPHORUS STAT 11/05/2023 1:32 AM CONVENTION WORKER PROTHROMBIN (PT) & INR STAT 1:32 AM CONVENTION WORKER PC IONIZED,CALCIUM STAT 11/05/2023 1: 18 AM CONVENTION WORKER PC LACTATE (LACTIC ACID) STAT 11/05/2023 1:18 AM CONVENTION WORKER PC GASES,BLOOD,ANY COMB OF PH,PCD2,PO2,CO2,HCO2 STAT 11/05/2023 1:18 AM CONVENTION WORKER PC TROPONIN QUANTITATIVE Timed 11/05/2023 1:[address] HEAD-NECK - ANGIO - W/IV CON STAT 11/05/2023 12:09 AM CONVENTION WORKER PC LAB COMPLETE UA STAT 11/04/2023 11 :55 PM CONVENTION WORKER PF INSERT CATH,ART,PERCUT,SANTA ERM Routine 11/04/2023 11:43 PM CONVENTION WORKER ED EKG (12-LEAD) Routine 11/04/2023 11:[address] SPINE LUMBAR NO IV CON STAT 11/04/2023 11:[address] SPINE THORACIC NO IV CON STAT 11/04/2023 11:[address] CHEST/ABD/PELVIS W/IV CONT STAT 11/04/2023 11:[address] SPINE CERVICAL NO IV CON STAT 11/04/2023 11:[address] HEAD NO IV CONTRAST STAT 11:05 PM CONVENTION WORKER XR CHEST 1 VIEW AP OR PA* STAT 11/04/2023 10:57 PM CONVENTION WORKER TC LAB ER STAT TOTAL HGB STAT 11/04/2023 10:48 PM CONVENTION WORKER PC ELECTROLYTES PANEL STAT 11/04/2023 10:48 PM CONVENTION WORKER PC HEPARIN ASSAY STAT 11/04/2023 10:4 5 PM CONVENTION WORKER EXTRA TUBE - SST Routine 11/04/2023 10:4 5 PM CONVENTION WORKER TC LAB BLOOD DRAW BY VENIPUNCTURE Routine 11/04/2023 10:45 PM CONVENTION WORKER PC TROPONIN QUANTITATIVE STAT 11/04/2023 10:45 PM CONVENTION WORKER PC LAB PTT STAT 11/04/2023 10:45 PM CONVENTION WORKER PC LAB ED INR STAT 11/04/2023 10:45 PM CONVENTION WORKER PRECAUTIONARY TUBE STAT 11/04/2023 10 :45 PM CONVENTION WORKER PC LACTATE (LACTIC ACID) STAT 11/04/2023 10:45 PM CONVENTION WORKER FIBRINOGEN STAT 11/04/2023 10:45 PM CONVENTION WORKER PC LAB CBC W/DIFF & PLT STAT 11/04/2023 10:45 PM CONVENTION WORKER PC GASES,BLOOD,ANY COMB OF PH,PCD2,PO2,CO2,HCO2 STAT 11/04/2023 10:45 PM CONVENTION WORKER ED US CRITICAL CARE STAT 11/04/2023 1 0:40 PM CONVENTION WORKER PANEL LIPID Routine 10/10/2021 11:08 AM CONVENTION WORKER from Last 3 Months or Most Recently Relevant to Health Maintenance Results * (ABNORMAL) PANEL BASIC METABOLIC (BMP) (11/16/2023 7:22 AM CONVENTION WORKER) Only the most recent of12 resultswithin the time period is included. [facility] Signature Sodium 143 135 - 148 mEq/L [facility] Potassium 3.9 3.5 - 5.3 mEq/L [facility] Chloride 105 92 - 108 mEq/L [facility] CO2 27 22 - 30 mEq/L [facility] AnGap 11 8 - 16 mEq/L [facility] Glucose 87 70 - 100 mg/dL [facility] BUN 23 8 - 23 mg/dL [facility] Creatinine 1.19(H) 0.50 - 1.00 mg/dL [facility] Calcium 9.4 8.8 - 10.2 mg/dL [facility] eGFR (2020 CKD-EPI) 46(L) >=60 ml/min/1.7 3m2 [facility] Comment: The estimated glomerular filtration rate (eGFR) was calculated using the CKD-EPI 2020 creatinine equation, which does not include race as a factor. This equation is validated in individuals 18 years of age and older, and eGFR is normalized to a body surface area of 1.73m^2. Blood 11/16/2023 7:22 AM CONVENTION WORKER 11/16/2023 7:43 AM CONVENTION WORKER Jesusita Aiken APRN, COLOR CONTROL SUPERVISOR LABORATO RY [facility] [place] [address] * POC GLUCOSE (11/16/2023 6:58 AM CONVENTION WORKER) Only the most recent of42 resultswithin the time period is included. POC Glucose 84 70 - 100 mg/dL [facility] Blood 11/16/2023 6:58 AM CONVENTION WORKER Devin Dougherty MD LABORATORY [facility] [address] [place] [address], * PHOSPHORUS (11/11/2023 6:09 AM CONVENTION WORKER) Only the most recent of7 resultswithin the time period is included. Phosphorus 3.5 2.5 - 4.5 mg/dL [facility] Blood 11/11/2023 6:09 AM CONVENTION WORKER 11/11/2023 6:36 AM CONVENTION WORKER Quinn Covarrubias MD LABORATORY Performing Organization Address City/[facility]/ZIP Co de Phone Number [facility] [address] [address] * MAGNESIUM (11/11/2023 6:09 AM CONVENTION WORKER) Only the most recent of8 resultswithin the time period is included. Magnesium 2.2 1.6 - 2.4 mg/dL [facility] Blood 11/11/2023 6:09 AM CONVENTION WORKER 11/11/2023 6:36 AM CONVENTION WORKER Quinn Covarrubias MD LABORATORY Performing Organization Address [facility] Co de Phone Number [facility] [address] [address] * (ABNORMAL) CBC WITH PLATELET (11/11/2023 6:09 AM CONVENTION WORKER) Only the most recent of7 resultswithin the time period is included. WBC 5.60 4.00 - 10.00 k/cmm [facility] RBC 3.80(L) 3.90 - 5.20 m/cmm [facility] Hgb 9.5(L) 11.5 - 15.7 g/dL [facility] Hematocrit 31.4(L) 34.0 - 45.0 % [facility] MCV 82.6 80.0 - 100.0 fL [facility] MCH 25.0 25.0 - 32.0 pg [facility] MCHC 30.3(L) 31.0 - 36.0 g/dL [facility] RDW 16.1(H) 11.5 - 14.5 % [facility] Plt 275 150 - 400 k/cmm [facility] MPV 11.8 6.5 - 12.5 fL [facility] Blood 11/11/2023 6:09 AM CONVENTION WORKER 11/11/2023 6:36 AM CONVENTION WORKER Quinn Covarrubias MD LABORATORY Performing Organization Address City/[facility]/ZIP Co de Phone Number [facility] [address] [address] * ANTI XA ASSAY LMW HEPARIN (11/09/2023 2:18 PM CONVENTION WORKER) Anti XA LMW 0.32 IU/mL [facility] Comment: Anti Xa Assay LMW Heparin Therapeutic Ranges: 0.4-1.1 IU/mL for twice daily 1.0-2.0 IU/mL for once daily Blood 11/09/2023 2:18 PM CONVENTION WORKER 11/09/2023 2:29 PM CONVENTION WORKER Quinn Covarrubias MD LABORATORY [facility] [address] [address] * XR FOOT RIGHT 3 V AP/OBL/LAT* (11/09/2023 10:36 AM CONVENTION WORKER) Anatomical Region Laterality Modality Foot Computed Radiogr aphy 11/09/2023 10:4 7 AM CONVENTION WORKER Impressions 11/09/2023 10:50 AM CONVENTION WORKER Impression: No acute osseous abnormality. Generalized osteopenia. Reading Radiologist: Angela Camp Narrative 11/09/2023 10:50 AM CONVENTION WORKER Technique: XR FOOT RIGHT 3 V AP/OBL/LAT* [...] Reading Radiologist: Angela Camp Jesusita Aiken APRN, COLOR CONTROL SUPERVISOR RAD XRAY * TELEMETRY STRIPS (11/09/2023 8:48 AM CONVENTION WORKER) Only the most recent of12 resultswithin the time period is included. Narrative 11/09/2023 8:48 AM CONVENTION WORKER Ordered by an unspecified provider. Provider Unknown RAD ECHO * (ABNORMAL) VALPROATE (DEPAKOTE) LEVEL (11/09/2023 5:41 AM CONVENTION WORKER) Valproate 31.8(L) 50.0 - 100.0 mcg/mL [facility] Blood 11/09/2023 5:41 AM CONVENTION WORKER 11/09/2023 8:19 AM CONVENTION WORKER Quinn Covarrubias MD LABORATORY [facility] [address] [address] * XR CHEST 1 VIEW AP OR PA* (11/08/2023 6:30 AM CONVENTION WORKER) Only the most recent of2 resultswithin the time period is included. Anatomical Region Laterality Modality Chest Computed Radiogr aphy 11/08/2023 6:56 AM CONVENTION WORKER Impressions 11/08/2023 7:24 AM CONVENTION WORKER Impression: Stable chest. I have personally reviewed the image(s) and initial interpretation, and I agree with the findings as documented by the resident/fellow. Reading Radiologist: Ronal Hidalgo Reading Resident: Laith Berkowitz Narrative 11/08/2023 7:24 AM CONVENTION WORKER Technique: XR CHEST 1 VIEW AP OR [...] VIEWS PA + LAT* (11/07/2023 10:07 AM CONVENTION WORKER) Anatomical Region Laterality Modality Chest Computed Radiogr aphy 11/07/2023 10:0 9 AM CONVENTION WORKER Impressions 11/07/2023 10:10 AM CONVENTION WORKER Impression: New left basilar opacities with small effusion concerning for developing infection. Reading Radiologist: Phil Contreras Narrative 11/07/2023 10:10 AM CONVENTION WORKER Technique: XR CHEST 2 VIEWS PA + [...] RAD XRAY * PROCALCITONIN (11/07/2023 8:34 AM CONVENTION WORKER) Procalcitonin 0.12 ng/mL [facility] Comment: Results <0.50 ng/mL represent a low risk of severe sepsis and/or septic shock. Results >2.0 ng/mL represent a high risk of severe sepsis and/or septic shock. Blood 11/07/2023 8:34 AM CONVENTION WORKER 11/07/2023 8:40 AM CONVENTION WORKER Quinn Covarrubias MD LABORATORY [facility] [address] [address] * (ABNORMAL) BLOOD GASES (11/06/2023 1:06 PM CONVENTION WORKER) Only the most recent of3 resultswithin the time period is included. PH Jalen 7.36 7.32 - 7.42 [facility] PCO2 Jalen 48 41 - 51 mmHG [facility] PO2 Jalen 86(H) 25 - 40 mmHG [facility] Bicarb Jalen 26 24 - 28 mEq/L [facility] O2 Sat Jalen 96 % [facility] Base Exc Jalen 1.0 -10.0 - 2.0 mEq/L [facility] Blood Venous 11/06/2023 1:06 PM CONVENTION WORKER 11/06/2023 1:10 PM CONVENTION WORKER Narrative [facility] - 11/06/2023 1:16 PM CONVENTION WORKER Draw on Room Air: No O2 LPM (liter/min) Level->4 via mask FiO2 Level: 100 Quinn Covarrubias MD LABORATORY Performing Organization Address City/[facility] Co de Phone Number [facility] [address] [address] * (ABNORMAL) ICU MAGNESIUM (11/06/2023 6:31 AM CONVENTION WORKER) Only the most recent of2 resultswithin the time period is included. Magnesium 2.5(H) 1.6 - 2.4 mg/dL [facility] Blood 11/06/2023 6:31 AM CONVENTION WORKER 11/06/2023 7:37 AM CONVENTION WORKER Devin Dougherty MD LABORATORY Performing Organization Address [facility] Co de Phone Number [facility] [address] [address] * ICU PHOSPHORUS (11/06/2023 6:31 AM CONVENTION WORKER) Only the most recent of2 resultswithin the time period is included. Phosphorus 4.1 2.5 - 4.5 mg/dL [facility] Blood 11/06/2023 6:31 AM CONVENTION WORKER 11/06/2023 7:37 AM CONVENTION WORKER Devin Dougherty MD LABORATORY Performing Organization Address City/[facility] Co de Phone Number [facility] [address] [address] * (ABNORMAL) ICU CBC WITH PLATELET (11/06/2023 6:31 AM CONVENTION WORKER) Only the most recent of2 resultswithin the time period is included. [facility] WBC 9.06 4.00 - 10.00 k/cmm [facility] RBC 3.77(L) 3.90 - 5.20 m/cmm [facility] Hgb 9.6(L) 11.5 - 15.7 g/dL [facility] Hematocrit 30.8(L) 34.0 - 45.0 % [facility] MCV 81.7 80.0 - 100.0 fL [facility] MCH 25.5 25.0 - 32.0 pg [facility] MCHC 31.2 31.0 - 36.0 g/dL [facility] RDW 15.9(H) 11.5 - 14.5 % [facility] Plt 284 150 - 400 k/cmm [facility] MPV 12.1 6.5 - 12.5 fL [facility] Blood 11/06/2023 6:31 AM CONVENTION WORKER 11/06/2023 7:37 AM CONVENTION WORKER Devin Dougherty MD LABORATORY [facility] [address] [address] * (ABNORMAL) ICU PANEL BASIC METABOLIC (BMP) (11/06/2023 6:31 AM CONVENTION WORKER) Only the most recent of2 resultswithin the time period is included. [facility] Sodium 142 135 - 148 mEq/L [facility] Potassium 3.7 3.5 - 5.3 mEq/L [facility] Chloride 107 92 - 108 mEq/L [facility] CO2 26 22 - 30 mEq/L [facility] AnGap 9 8 - 16 mEq/L [facility] Glucose 148(H) 70 - 100 mg/dL [facility] BUN 12 8 - 23 mg/dL [facility] Creatinine 0.77 0.50 - 1.00 mg/dL [facility] Calcium 8.7(L) 8.8 - 10.2 mg/dL [facility] eGFR (2020 CKD-EPI) 77 >=60 ml/min/1.7 3m2 [facility] Comment: The estimated glomerular filtration rate (eGFR) was calculated using the CKD-EPI 2020 creatinine equation, which does not include race as a factor. This equation is validated in individuals 18 years of age and older, and eGFR is normalized to a body surface area of 1.73m^2. Blood 11/06/2023 6:31 AM CONVENTION WORKER 11/06/2023 7:37 AM CONVENTION WORKER Devin Dougherty MD LABORATORY [facility] [address] [id number] * PROTHROMBIN (PT) & INR (11/06/2023 6:31 AM CONVENTION WORKER) Only the most recent of3 resultswithin the time period is included. PT 11.4 9.0 - 12.5 sec [facility] INR 1.0 0.8 - 1.1 [facility] Comment: Warfarin Therapeutic Range: Standard Intensity: 2.0 - 3.0 High Intensity: 2.5 - 3.5 Blood 11/06/2023 6:31 AM [employer]VENTION WORK[employer] 11/06/2023 7:37 AM CONVENTION WORKER Quinn Covarrubias MD LABORATORY [facility] [address] [id number] * (ABNORMAL) GLYCOSYLATED HGB - A1C (11/06/2023 6:31 AM CONVENTION WORKER) Hemoglobin A1C 8.1(H) 4.0 - 5.6 % [facility] Comment: Increased risk for diabetes (prediabetes): 5.7-6.4% Diabetes: greater than or equal to 6.5% * * In the absence of unequivocal hyperglycemia, diagnosis requires two abnormal test results (i.e. HbA1c and glucose) or two abnormal results from specimens collected at two different timepoints. Estimated Average Glucose 186(H) 68 - 114 [facility] Comment: The ADA recommends reporting an estimated Average Glucose (eAG) with all hemoglobin A1c results using the equation derived from a study of 501 normal diabetic adults. Minority populations were underrepresented and children were not included. The EAG is not equivalent to a fasting glucose. Blood 11/06/2023 6:31 AM [employer]VENTION WORKER 11/06/2023 11:28 AM [employer]VENTION WORKER Quinn Covarrubias MD LABORATORY Performing Organization Address [facility] Co de Phone Number [facility] [address] [address] * (ABNORMAL) POTASSIUM (11/05/2023 4:48 PM CONVENTION WORKER) Potassium 3.2(L) 3.5 - 5.3 mEq/L [facility] Blood 11/05/2023 4:48 PM CONVENTION WORKER 11/05/2023 4:58 PM CONVENTION WORKER Quinn Covarrubias MD LABORATORY Performing Organization Address [facility] de Phone Number [facility] [address] [address] * CT HEAD NO IV CONTRAST (11/05/2023 11:44 AM CONVENTION WORKER) Only the most recent of3 resultswithin the time period is included. Anatomical Region Laterality Modality Skull Computed Tomogra phy 11/05/2023 12:1 6 PM CONVENTION WORKER Impressions 11/05/2023 12:38 PM CONVENTION WORKER Impression: Stable head CT as compared to the study performed 7 hours earlier. Intra-axial and extra-axial hemorrhage(s) without midline shift or hydrocephalus. The basal cisterns are patent. Reading Radiologist: Ford Fernández 11/05/2023 12:38 PM CONVENTION WORKER Exam: Head CT without contrast, 11/05/2023 Indication: [...] * EKG ADULT (12-LEAD) (11/05/2023 6:38 AM CONVENTION WORKER) 11/05/2023 6:38 AM CONVENTION WORKER Impressions [facility] EKG ORDERS - 11/05/2023 6:38 AM CONVENTION WORKER SINUS RHYTHM RIGHT BUNDLE BRANCH BLOCK ??[120+ ms QRS DURATION, UPRIGHT V1, 40+ ms S IN I/aVL/V4/V5/V6] ABNORMAL ECG P-R Interval 151 ms QRS Interval 128 ms QT Interval 420 ms QTC Interval 462 ms P [place] 9 QRS [place] 27 T Wave [place] 70 Narrative Procedure Note Lauren Mills MD - 11/06/2023 IMPRESSION SINUS RHYTHM RIGHT BUNDLE BRANCH BLOCK [120+ ms QRS DURATION, UPRIGHT V1, 40+ ms S INI/aVL/V4/V5/V6] ABNORMAL ECG P-R Interval 151 ms QRS Interval 128 ms QT Interval 420 ms QTC Interval 462 ms P [place] 9 QRS [place] 27 T Wave [place] 70 Quinn Covarrubias MD EKG Performing Organization Address [facility] Co de Phone Number [facility] E[facility] ORDERS * (ABNORMAL) ICU BLOOD GAS (11/05/2023 4:27 AM CONVENTION WORKER) PH Art 7.38 7.35 - 7.45 [facility] PCO2 Art 42 35 - 45 mmHG [facility] PO2 Art 99(H) 75 - 85 mmHG [facility] Bicarb Art 25 22 - 26 mEq/L [facility] O2 Sat Art 98 96 - 99 % [facility] Base Exc Art 0.0 -10.0 - 2.0 mEq/L [facility] Blood Arterial 11/05/2023 4: 27 AM CONVENTION WORKER 11/05/2023 4:34 AM CONVENTION WORKER Devin Dougherty MD LABORATORY Performing Organization Address City/[facility] Co de Phone Number [facility] [address] [address] * (ABNORMAL) TROP 6H (11/05/2023 4:27 AM CONVENTION WORKER) 6H Trop 51(H) <=14 ng/L [facility] 6H Delta Significan t(A) Not Significant [facility] Blood 11/05/2023 4:27 AM CONVENTION WORKER 11/05/2023 4:35 AM CONVENTION WORKER Devin Dougherty MD LABORATORY Performing Organization Address [facility] Co de Phone Number [facility] [address] [address] * (ABNORMAL) TROP 4H (11/05/2023 2:58 AM CONVENTION WORKER) 4H Trop 39(H) <=14 ng/L [facility] 4H Delta Significan t(A) Not Significant [facility] Blood 11/05/2023 2:58 AM CONVENTION WORKER 11/05/2023 3:48 AM CONVENTION WORKER Devin Dougherty MD LABORATORY Performing Organization Address [facility] Co de Phone Number [facility] [address] [address] * (ABNORMAL) PANEL HEPATIC FUNCTION (11/05/2023 1:32 AM CONVENTION WORKER) Alk Phos 111(H) 35 - 104 IU/L [facility] Total Protein 6.5 6.4 - 8.3 g/dL [facility] Bili Direct na <=0.3 mg/dL [facility] Comment:Direct Bilirubin = < 0.2. Accuracy of result suspect due to lipemia. Albumin 3.8 3.8 - 5.1 g/dL [facility] Bili Total <0.2 <=1.2 mg/dL [facility] ALT (SGPT) na <=33 [facility] Comment:ALT = 15. Accuracy o f result suspect due to lipemia. AST(SGOT) na 5 - 40 [facility] Comment:AST = 27. Accuracy o f result suspect due to lipemia. Blood 11/05/2023 1:32 AM CONVENTION WORKER 11/05/2023 1:32 AM CONVENTION WORKER Devin Dougherty MD LABORATORY Performing Organization Address City/[facility]/ZIP Co de Phone Number [facility] [address] [address] * FIBRINOGEN (11/05/2023 1:32 AM CONVENTION WORKER) Only the most recent of2 resultswithin the time period is included. Fibrinogen 262 200 - 400 mg/dL [facility] Blood 11/05/2023 1:32 AM CONVENTION WORKER 11/05/2023 1:32 AM CONVENTION WORKER Devin Dougherty MD LABORATORY Performing Organization Address [facility] Co de Phone Number [address] [address] * CK, TOTAL (11/05/2023 1:32 AM CONVENTION WORKER) CK 56 26 - 192 IU/L [facility] Blood 11/05/2023 1:32 AM CONVENTION WORKER 11/05/2023 1:32 AM CONVENTION WORKER Devin Dougherty MD LABORATORY Performing Organization Address [facility] Co de Phone Number [facility] [address] [address] * PTT (APTT) (11/05/2023 1:32 AM CONVENTION WORKER) Only the most recent of2 resultswithin the time period is included. APTT 26.0 25.0 - 37.0 sec [facility] Blood 11/05/2023 1:32 AM CONVENTION WORKER 11/05/2023 1:32 AM CONVENTION WORKER Devin Dougheryt MD LABORATORY Performing Organization Address City/[facility] Co de Phone Number [facility] [address] [address] * (ABNORMAL) TROP 2H (11/05/2023 1:18 AM CONVENTION WORKER) 2H Trop 18(H) <=14 ng/L [facility] 2H Delta Indeterminate Not Significant [facility] Blood 11/05/2023 1:18 AM CONVENTION WORKER 11/05/2023 1:45 AM CONVENTION WORKER Devin Dougherty MD LABORATORY Performing Organization Address [facility] Co de Phone Number [address] [address] * LACTATE (LACTIC ACID) (11/05/2023 1:18 AM CONVENTION WORKER) Only the most recent of2 resultswithin the time period is included. Lactate 1.9 0.7 - 2.1 mmol/L [facility] Blood 11/05/2023 1:18 AM CONVENTION WORKER 11/05/2023 1:27 AM CONVENTION WORKER Narrative [facility] - 11/05/2023 1:45 AM CONVENTION WORKER Send specimen on ice! Devin Dougherty MD LABORATORY Performing Organization Address [facility] Co de Phone Number [address] [address] * CALCIUM,IONIZED (11/05/2023 1:18 AM CONVENTION WORKER) PH 7.37 7.32 - 7.42 [facility] ICA, Actual 4.82 4.40 - 5.20 mg/dL [facility] ICA, pH Corrected 4.75 4.40 - 5.20 mg/dL [facility] Blood 11/05/2023 1:18 AM CONVENTION WORKER 11/05/2023 1:27 AM CONVENTION WORKER Narrative [facility] - 11/05/2023 1:44 AM CONVENTION WORKER Send specimen on ice! Devin Dougherty MD LABORATORY Performing Organization Address [facility] Co de Phone Number [address] [address] * CT HEAD-NECK - ANGIO - W/IV CON (11/05/2023 12:09 AM CONVENTION WORKER) Anatomical Region Laterality Modality Skull Computed Tomogra phy 11/05/2023 12:2 1 AM CONVENTION WORKER Impressions 11/05/2023 10:22 AM CONVENTION WORKER Impression: ?? Slightly increased size of the [...] Fernández Resident: Laith Berkowitz 11/05/2023 10:[address] angiogram of the Head with contrast, [...] and reviewed by the Radiologist using the [employer] workstation, and these images were archived in [...] and reviewed by the Radiologist using the [employer] workstation,and these images were archived in the [...] NEURO * (ABNORMAL) URINALYSIS,TOTAL (11/04/2023 11:55 PM CONVENTION WORKER) Color COLORLESS YELLOW [facility] Appearance CLEAR CLEAR [facility] Urine Glucose 100(A) NEGATIVE mg/dL [facility] Bili UA NEGATIVE NEGATIVE [facility] Ketones NEGATIVE NEGATIVE [facility] Specific [place] 1.036(A) 1.003 - 1.030 [facility] Blood Ur NEGATIVE Neg-Trace [facility] PH Urine 7.5(H) 5.0 - 7.0 [facility] Protein Ur TRACE Neg-Trace [facility] Urobilinogen NORMAL NORMAL EU/dL [facility] Nitrite Ur NEGATIVE NEGATIVE [facility] Leuk Est NEGATIVE Neg-Trace [facility] WBC Ur 0-5 0 - 5 perHPF [facility] RBC Ur 0-3 0 - 3 perHPF [facility] SQ EPITH 0-5 0 - 5 perHPF [facility] Urinalysis Performed at: [facility] Urine 11/04/2023 11:5 5 PM CONVENTION WORKER 11/05/2023 12:03 AM CONVENTION WORKER Devin Doughrety MD LABORATORY [facility] [id number] [place] [address] * PF INSERT CATH,ART,PERCUT,SHORTTERM (11/04/2023 11:43 PM CONVENTION WORKER) Narrative Rito Graf MD - 11/04/2023 11:43 PM CONVENTION WORKER Priscilla Holcomb MD ? 11/04/2023 11:44 PM Arterial Line Performed by: Priscilla Holcomb MD Authorized by: Rito Graf MD ?? Consent: ??Consent obtained: ??Verbal ??Consent given by: ??Patient ??Risks discussed: ??Pain, bleeding and infection Crowder protocol: ??Patient identity confirmed: ??Verbally with patient, [...] * ED EKG (12-LEAD) (11/04/2023 11:25 PM CONVENTION WORKER) 11/04/2023 11:2 5 PM CONVENTION WORKER Impressions [facility] E[facility] ORDERS - 11/04/2023 11:25 PM CONVENTION WORKER SINUS TACHYCARDIA RIGHT BUNDLE BRANCH BLOCK ??[120+ ms QRS DURATION, UPRIGHT V1, 40+ ms S IN I/aVL/V4/V5/V6] ABNORMAL ECG P-R Interval 173 ms QRS Interval 127 ms QT Interval 395 ms QTC Interval 458 ms P [place] 57 QRS [place] 34 T Wave [place] 43 Narrative Procedure Note Vineet Díaz MD - 11/05/2023 IMPRESSION SINUS TACHYCARDIA RIGHT BUNDLE BRANCH BLOCK [120+ ms QRS DURATION, UPRIGHT V1, 40+ ms S INI/aVL/V4/V5/V6] ABNORMAL ECG P-R Interval 173 ms QRS Interval 127 ms QT Interval 395 ms QTC Interval 458 ms P [place] 57 QRS [place] 34 T Wave [place] 43 Devin Dougherty MD EKG [facility] EKG ORDERS * CT SPINE THORACIC NO IV CON (11/04/2023 11:05 PM CONVENTION WORKER) Anatomical Region Laterality Modality Thoracic Spine Computed Tomogra phy 11/04/2023 11:2 3 PM CONVENTION WORKER Impressions 11/05/2023 9:22 AM CONVENTION WORKER Impression: 1. No suspected acute fracture or dislocation of the thoracic or lumbar spine. ?? 2. Mntn-rp-lsttbxeo lumbar spondylosis without suspected high-grade spinal canal or neural foraminal narrowing. I have personally reviewed the image(s) and initial interpretation, and I agree with the findings as documented by the resident/fellow. Reading Radiologist: Ford Fernández Resident: Laith Berkowitz Narrative 11/05/2023 9:22 AM CONVENTION WORKER Exam: Thoracic and Lumbar Spine CT Reconstructions, [...] dislocation of the thoracic or lumbarspine. 2. Tjwp-tz-btetasfi lumbar spondylosis without suspected high-grade spinalcanal or neural foraminal narrowing. I have personally reviewed the image(s) and initial interpretation, and Iagree with the findings as documented by the resident/fellow. Reading Radiologist: Ford Fernández Resident: Laith Berkowitz Devin Dougherty MD RAD CT NEURO * CT SPINE LUMBAR NO IV CON (11/04/2023 11:05 PM CONVENTION WORKER) Anatomical Region Laterality Modality Lumbar Spine Computed Tomogra phy 11/04/2023 11:2 3 PM CONVENTION WORKER Impressions 11/05/2023 9:22 AM CONVENTION WORKER Impression: 1. No suspected acute fracture or dislocation of the thoracic or lumbar spine. ?? 2. Abyx-wi-mudbfenz lumbar spondylosis without suspected high-grade spinal canal or neural foraminal narrowing. I have personally reviewed the image(s) and initial interpretation, and I agree with the findings as documented by the resident/fellow. Reading Radiologist: Ford Fernández Resident: Laith Berkowitz Narrative 11/05/2023 9:22 AM CONVENTION WORKER Exam: Thoracic and Lumbar Spine CT Reconstructions, [...] dislocation of the thoracic or lumbarspine. 2. Eqqq-ah-smhsjfuq lumbar spondylosis without suspected high-grade spinalcanal or neural foraminal narrowing. I have personally reviewed the image(s) and initial interpretation, and Iagree with the findings as documented by the resident/fellow. Reading Radiologist: Ford Fernández Resident: Laith Berkowitz Devin Dougherty MD RAD CT NEURO * CT SPINE CERVICAL NO IV CON (11/04/2023 11:05 PM CONVENTION WORKER) Anatomical Region Laterality Modality Cervical Spine Computed Tomogra phy 11/04/2023 11:2 0 PM CONVENTION WORKER Impressions 11/05/2023 8:27 AM CONVENTION WORKER Impression: ?? 1. No acute fracture or traumatic subluxation of the cervical vertebrae. 2. Mild degenerative changes of the cervical spine without high-grade spinal canal or neural foraminal narrowing. I have personally reviewed the image(s) and initial interpretation, and I agree with the findings as documented by the resident/fellow. Reading Radiologist: Ford Fernández Resident: Laith Berkowitz Narrative 11/05/2023 8:27 AM CONVENTION WORKER Exam: Cervical spine CT without contrast, 11/04/2023 [...] spinal canal narrowing. C5-6: Mild left and zhuq-hw-nffkvvlq right neural foraminal narrowing. Borderline mild spinal [...] spinal canal narrowing. C5-6: Mild left and hzqj-rj-mnppgaxi right neural foraminal narrowing.Borderline mild spinal canal [...] CT CHEST/ABD/PELVIS W/IV CONT (11/04/2023 11:05 PM CONVENTION WORKER) Anatomical Region Laterality Modality Chest Computed Tomogra phy 11/04/2023 11:2 9 PM CONVENTION WORKER Impressions 11/05/2023 6:33 AM CONVENTION WORKER Impression: 1. No acute traumatic sequelae in [...] Resident: Laith Berkowitz Narrative 11/05/2023 6:33 AM CONVENTION WORKER Comparison: None Indication: Trauma (STAB) ?? Technique: [...] ED CHEMISTRY LABS(NA,K,CL,CO2,GLU,CREAT,CA-IONIZED,ANION GAP) (11/04/2023 10:48 PM CONVENTION WORKER) Sodium 144 135 - 148 mEq/L [facility] Chloride 106 92 - 108 mEq/L [facility] AnGap 11 8 - 16 mEq/L [facility] Glucose 234(H) 70 - 100 mg/dL [facility] ICA, Actual 4.52 4.40 - 5.20 mg/dL [facility] ICA, pH Corrected 4.51 4.40 - 5.20 mg/dL [facility] Creatinine 0.81 0.50 - 1.00 mg/dL [facility] BICARB 27(H) 22 - 26 mEq/L [facility] eGFR (2020 CKD-EPI) 73 >=60 ml/min/1.7 3m2 [facility] Comment: The estimated glomerular filtration rate (eGFR) was calculated using the CKD-EPI 2020 creatinine equation, which does not include race as a factor. This equation is validated in individuals 18 years of age and older, and eGFR is normalized to a body surface area of 1.73m^2. Potassium 2.8(AA) 3.5 - 5.3 mEq/L [facility] Comment:Critcal Result Low Blood 11/04/2023 10:4 8 PM CONVENTION WORKER 11/04/2023 10:49 PM CONVENTION WORKER Narrative [facility] - 11/04/2023 10:55 PM CONVENTION WORKER Critical value for Potassium called to and read back by Rafa Hutchins RN in ??EDSTAB 2 at 11/04/2023 22:55:31 CONVENTION WORKER by Eleni Spring MLS. Devin Dougherty MD LABORATORY Performing Organization Address [facility] Co de Phone Number [facility] [address] [address] * (ABNORMAL) ED HEMOGLOBIN TOTAL (ED ONLY) (11/04/2023 10:48 PM CONVENTION WORKER) Hgb 10.3(L) 11.5 - 15.7 g/dL [facility] Blood 11/04/2023 10:4 8 PM CONVENTION WORKER 11/04/2023 10:49 PM CONVENTION WORKER Devin Dougherty MD LABORATORY Performing Organization Address City/[facility]/ZIP Co de Phone Number [facility] [address] [address] * ED INR (11/04/2023 10:45 PM CONVENTION WORKER) ED INR 1.0 0.8 - 1.1 [facility] Comment: Warfarin Therapeutic Range: Standard Intensity: 2.0 - 3.0 High Intensity: 2.5 - 3.5 Blood 11/04/2023 10:4 5 PM CONVENTION WORKER 11/04/2023 10:48 PM CONVENTION WORKER Devin Dougherty MD LABORATORY Performing Organization Address City/[facility]/ZIP Co de Phone Number [facility] [address] [address] * EXTRA TUBE - LIGHT GREEN (11/04/2023 10:45 PM CONVENTION WORKER) LIGHT GREEN TUBE Stored [facility] Comment:Green tubes ([place] Heparin) are stored in the lab for 3 days from the collection date. Blood 11/04/2023 10:4 5 PM CONVENTION WORKER 11/04/2023 10:50 PM CONVENTION WORKER Devin Dougherty MD LABORATORY Performing Organization Address [facility] Co de Phone Number [facility] [address] [address] * EXTRA TUBE - SST (11/04/2023 10:45 PM CONVENTION WORKER) SST TUBE Stored [facility] Comment:SST tubes (Serum Sep arator) are stored in the lab for 3 days from the collection date. Blood 11/04/2023 10:4 5 PM CONVENTION WORKER 11/04/2023 10:50 PM CONVENTION WORKER Devin Dougherty MD LABORATORY Performing Organization Address [facility] Co de Phone Number [facility] [address] [address] * HS TROPONIN (11/04/2023 10:45 PM CONVENTION WORKER) HS Troponin I 10 <=14 ng/L [facility] Blood 11/04/2023 10:4 5 PM CONVENTION WORKER 11/04/2023 11:05 PM CONVENTION WORKER Narrative [facility] - 11/04/2023 11:36 PM CONVENTION WORKER First Occurrence of the Troponin order is to be drawn Stat by Nursing staff on the unit. Devin Dougherty MD LABORATORY Performing Organization Address City/[facility]/ZIP Co de Phone Number [facility] [address] [address] * (ABNORMAL) CBC WITH PLTS/AUTO DIFF (11/04/2023 10:45 PM CONVENTION WORKER) WBC 9.42 4.00 - 10.00 k/cmm [facility] RBC 3.86(L) 3.90 - 5.20 m/cmm [facility] Hgb 9.8(L) 11.5 - 15.7 g/dL [facility] Hematocrit 31.8(L) 34.0 - 45.0 % [facility] MCV 82.4 80.0 - 100.0 fL [facility] MCH 25.4 25.0 - 32.0 pg [facility] MCHC 30.8(L) 31.0 - 36.0 g/dL [facility] RDW 15.3(H) 11.5 - 14.5 % [facility] Plt 292 150 - 400 k/cmm [facility] MPV 11.1 6.5 - 12.5 fL [facility] Automated Abs Neutrophil 5.80 1.70 - 6.50 k/cmm [facility] Comment:Preliminary ANC, Fin al Result to Follow Abs Immature Granulocyte 0.07 0.00 - 0.09 k/cmm [facility] Comment:The Immature Granulo cyte Absolute count contains metamyelocytes and myelocytes. Abs Neutrophil 5.80 1.70 - 6.50 k/cmm [facility] Abs Lymphocyte 2.33 0.80 - 4.00 k/cmm [facility] Abs Monocyte 0.88 0.20 - 1.00 k/cmm [facility] Abs Eosinophil 0.27 0.00 - 0.60 k/cmm [facility] Abs Basophil 0.07 0.00 - 0.20 k/cmm [facility] Blood 11/04/2023 10:4 5 PM CONVENTION WORKER 11/04/2023 11:05 PM CONVENTION WORKER Devin Dougherty MD LABORATORY [facility] [address] [address] * PRECAUTIONARY TUBE (11/04/2023 10:45 PM CONVENTION WORKER) Pathologist [facility] [place] Prec Tube Precautionary Blood Bank Specimen Received. [facility] Blood 11/04/2023 10:4 5 PM CONVENTION WORKER 11/04/2023 10:52 PM CONVENTION WORKER Devin Dougherty MD LAB TRANSFUSION SER VICES [facility] [address] [address] * (ABNORMAL) ANTI XA HEPARIN UNFRACTIONATED (11/04/2023 10:45 PM CONVENTION WORKER) Anti XA Hep U <0.04(L) 0.30 - 0.70 IU/mL [facility] Blood 11/04/2023 10:4 5 PM CONVENTION WORKER 11/04/2023 11:05 PM CONVENTION WORKER Devin Dougherty MD LABORATORY Performing Organization Address [facility] Co de Phone Number [facility] [address] [address] * ED US CRITICAL CARE (11/04/2023 10:40 PM CONVENTION WORKER) Anatomical Region Laterality Modality Ultrasound Narrative 11/04/2023 11:28 PM CONVENTION WORKER ED Trauma eFAST Ultrasound Indications: Suspicion of [...] Advance Directives For more information, please contact: [phone] Latest Code Status on File Code Status [...] Code Status With Whom? Patient Care Teams Licensed Massage Therapist Relationship Specialty Start Date End Date Eloise Reeves DO [address] [place] [address] PCP - General Family Medicine 11/06/23
--- OUTSIDE RECORDS SUMMARY | 2023-12-15 20:13 | XMS_ITS | Clinical Summary ---
Author Name Unknown Organization [employer] Address [address] [place] [id number] Phone Care Team Providers Care Merchandise Director Name Role Phone Jacklyn Reevesher Sushil BUSBY Primary Care Provider [phone] Source Comments [facility] is fully rolled out on [facility] [employer] [facility] [employer]. Last update 04/02/09.[employer] Allergies Active Allergy Reactions Criticality Noted Date [...] Department Care Team Description 11/27/2023 1:00 PM SOLAR INSTALLATION MANAGER [facility] [address] [place] [id number] Leidy Velazquez, PAElodiaC Mild traumatic brain injury, with loss of consciousness of 30 minutes or less, initial encounter ([facility]) (Primary Dx); Reversed sleep wake [...] Department [place] Unknown, Provider 11/04/2023 10:39 PM SOLAR INSTALLATION MANAGER - 11/16/2023 9:19 AM SOLAR INSTALLATION MANAGER Hospital Encounter [facility] Surgery/Trauma/Kimmie ro [address] [place] [address] Devin Dougherty MD Petrun, Branden, MD [place], [...] Comments Blood Pressure 108/71 11/27/2023 12:54 PM SOLAR INSTALLATION MANAGER Pulse 74 11/27/2023 12:54 PM SOLAR INSTALLATION MANAGER Temperature 36.6 ??C (97.8 ??F) 11/16/2023 4:25 AM CS T Respiratory Rate 16 11/16/2023 4:25 AM SOLAR INSTALLATION MANAGER Oxygen Saturation 90% 11/16/2023 4:25 AM SOLAR INSTALLATION MANAGER Inhaled Oxygen Concentration - - Weight 61.6 kg (135 lb 12.8 oz) 024 12:54 PM SOLAR INSTALLATION MANAGER Height 147.3 cm (4' 10) 11/05/2023 12: 03 AM SOLAR INSTALLATION MANAGER Body Mass Index 28.38 11/05/2023 12:03 AM SOLAR INSTALLATION MANAGER Plan of Treatment Health Maintenance Due Date [...] BASIC METABOLIC (BMP) Routine 11/16/2023 7:22 AM SOLAR INSTALLATION MANAGER POC GLUCOSE Routine 11/16/2023 6:58 AM SOLAR INSTALLATION MANAGER POC GLUCOSE Routine 11/15/2023 9:15 PM SOLAR INSTALLATION MANAGER POC GLUCOSE Routine 11/15/2023 4:09 PM SOLAR INSTALLATION MANAGER POC GLUCOSE Routine 11/15/2023 12:46 PM SOLAR INSTALLATION MANAGER PANEL BASIC METABOLIC (BMP) Routine 11/15/2023 7:39 AM SOLAR INSTALLATION MANAGER POC GLUCOSE Routine 11/15/2023 6:11 AM SOLAR INSTALLATION MANAGER POC GLUCOSE Routine 11/14/2023 9:02 PM SOLAR INSTALLATION MANAGER POC GLUCOSE Routine 11/14/2023 4:21 PM SOLAR INSTALLATION MANAGER POC GLUCOSE Routine 11/14/2023 12:19 PM SOLAR INSTALLATION MANAGER PANEL BASIC METABOLIC (BMP) Routine 11/14/2023 8:59 AM SOLAR INSTALLATION MANAGER POC GLUCOSE Routine 11/14/2023 8:11 AM SOLAR INSTALLATION MANAGER POC GLUCOSE Routine 11/13/2023 9:15 PM SOLAR INSTALLATION MANAGER POC GLUCOSE Routine 11/13/2023 4:03 PM SOLAR INSTALLATION MANAGER POC GLUCOSE Routine 11/13/2023 11:21 AM SOLAR INSTALLATION MANAGER PANEL BASIC METABOLIC (BMP) Routine 11/13/2023 6:41 AM SOLAR INSTALLATION MANAGER POC GLUCOSE Routine 11/13/2023 6:31 AM SOLAR INSTALLATION MANAGER POC GLUCOSE Routine 11/12/2023 9:21 PM SOLAR INSTALLATION MANAGER POC GLUCOSE Routine 11/12/2023 4:12 PM SOLAR INSTALLATION MANAGER PANEL BASIC METABOLIC (BMP) Timed 11/12/2023 1:01 PM SOLAR INSTALLATION MANAGER POC GLUCOSE Routine 11/12/2023 12:14 PM SOLAR INSTALLATION MANAGER POC GLUCOSE Routine 11/12/2023 6:09 AM SOLAR INSTALLATION MANAGER POC GLUCOSE Routine 11/11/2023 8:48 PM SOLAR INSTALLATION MANAGER POC GLUCOSE Routine 11/11/2023 4:11 PM SOLAR INSTALLATION MANAGER POC GLUCOSE Routine 11/11/2023 11:47 AM SOLAR INSTALLATION MANAGER PHOSPHORUS Routine 11/11/2023 6:09 AM SOLAR INSTALLATION MANAGER PANEL BASIC METABOLIC (BMP) Routine 11/11/2023 6:09 AM SOLAR INSTALLATION MANAGER MAGNESIUM Routine 11/11/2023 6:09 AM SOLAR INSTALLATION MANAGER TC LAB BLOOD DRAW BY VENIPUNCTURE Routine 11/11/2023 6:09 AM SOLAR INSTALLATION MANAGER POC GLUCOSE Routine 11/10/2023 8:58 PM SOLAR INSTALLATION MANAGER POC GLUCOSE Routine 11/10/2023 4:16 PM SOLAR INSTALLATION MANAGER POC GLUCOSE Routine 11/10/2023 11:15 AM SOLAR INSTALLATION MANAGER PHOSPHORUS Routine 11/10/2023 6:17 AM SOLAR INSTALLATION MANAGER PANEL BASIC METABOLIC (BMP) Routine 11/10/2023 6:17 AM SOLAR INSTALLATION MANAGER MAGNESIUM Routine 11/10/2023 6:17 AM SOLAR INSTALLATION MANAGER PC LAB CBC/PLT Routine 11/10/2023 6:17 AM SOLAR INSTALLATION MANAGER POC GLUCOSE Routine 11/09/2023 9:41 PM SOLAR INSTALLATION MANAGER POC GLUCOSE Routine 11/09/2023 3:58 PM SOLAR INSTALLATION MANAGER ANTI XA ASSAY LMW HEPARIN Timed 11/09/2023 2:18 PM SOLAR INSTALLATION MANAGER POC GLUCOSE Routine 11/09/2023 11:28 AM SOLAR INSTALLATION MANAGER XR FOOT RIGHT 3 V AP/OBL/LAT* Routine 11/09/2023 10:36 AM SOLAR INSTALLATION MANAGER TELEMETRY STRIPS 11/09/2023 8:48 AM SOLAR INSTALLATION MANAGER POC GLUCOSE Routine 11/09/2023 5:46 AM SOLAR INSTALLATION MANAGER PC VALPROIC ACID LEVEL DEPAHOTE Routine 11/09/2023 5:41 AM SOLAR INSTALLATION MANAGER PHOSPHORUS Routine 11/09/2023 5:41 AM SOLAR INSTALLATION MANAGER PANEL BASIC METABOLIC (BMP) Routine 11/09/2023 5:41 AM SOLAR INSTALLATION MANAGER MAGNESIUM Routine 11/09/2023 5:41 AM SOLAR INSTALLATION MANAGER PC LAB CBC/PLT Routine 11/09/2023 5:41 AM SOLAR INSTALLATION MANAGER TELEMETRY STRIPS 11/09/2023 1:21 AM SOLAR INSTALLATION MANAGER POC GLUCOSE Routine 11/08/2023 8:40 PM SOLAR INSTALLATION MANAGER TELEMETRY STRIPS 11/08/2023 7:31 PM SOLAR INSTALLATION MANAGER PHOSPHORUS Routine 11/08/2023 4:20 PM SOLAR INSTALLATION MANAGER MAGNESIUM Routine 11/08/2023 4:20 PM SOLAR INSTALLATION MANAGER PANEL BASIC METABOLIC (BMP) Routine 11/08/2023 4:20 PM SOLAR INSTALLATION MANAGER TC LAB BLOOD DRAW BY VENIPUNCTURE Routine 11/08/2023 4:20 PM SOLAR INSTALLATION MANAGER POC GLUCOSE Routine 11/08/2023 3:56 PM SOLAR INSTALLATION MANAGER POC GLUCOSE Routine 11/08/2023 11:03 AM SOLAR INSTALLATION MANAGER TELEMETRY STRIPS 11/08/2023 9:49 AM SOLAR INSTALLATION MANAGER XR CHEST 1 VIEW AP OR PA* Routine 11/08/2023 6:30 AM SOLAR INSTALLATION MANAGER POC GLUCOSE Routine 11/08/2023 6:22 AM SOLAR INSTALLATION MANAGER TELEMETRY STRIPS 11/08/2023 2:59 AM SOLAR INSTALLATION MANAGER POC GLUCOSE Routine 11/07/2023 9:34 PM SOLAR INSTALLATION MANAGER TELEMETRY STRIPS 11/07/2023 7:31 PM SOLAR INSTALLATION MANAGER POC GLUCOSE Routine 11/07/2023 4:06 PM SOLAR INSTALLATION MANAGER POC GLUCOSE Routine 11/07/2023 11:45 AM SOLAR INSTALLATION MANAGER XR CHEST 2 VIEWS PA + LAT* Routine 11/07/2023 10:07 AM SOLAR INSTALLATION MANAGER TELEMETRY STRIPS 11/07/2023 9:29 AM SOLAR INSTALLATION MANAGER PC PROCALCITONIN (PCT) Routine 8:34 AM SOLAR INSTALLATION MANAGER PC LAB CBC/PLT Routine 11/07/2023 8:34 AM SOLAR INSTALLATION MANAGER PANEL BASIC METABOLIC (BMP) Routine 11/07/2023 8:34 AM SOLAR INSTALLATION MANAGER MAGNESIUM Routine 11/07/2023 8:34 AM SOLAR INSTALLATION MANAGER PHOSPHORUS Routine 11/07/2023 8:34 AM SOLAR INSTALLATION MANAGER POC GLUCOSE Routine 11/07/2023 5:45 AM SOLAR INSTALLATION MANAGER TELEMETRY STRIPS 11/07/2023 1:07 AM SOLAR INSTALLATION MANAGER POC GLUCOSE Routine 11/06/2023 9:21 PM SOLAR INSTALLATION MANAGER TELEMETRY STRIPS 11/06/2023 4:28 PM SOLAR INSTALLATION MANAGER PC GASES,BLOOD,ANY COMB OF PH,PCD2,PO2,CO2,HCO2 Routine 11/06/2023 1:06 PM SOLAR INSTALLATION MANAGER MAGNESIUM Timed 11/06/2023 1:06 PM SOLAR INSTALLATION MANAGER PHOSPHORUS Timed 11/06/2023 1:06 PM SOLAR INSTALLATION MANAGER PANEL BASIC METABOLIC (BMP) Timed 11/06/2023 1:06 PM SOLAR INSTALLATION MANAGER PC LAB CBC/PLT Timed 11/06/2023 1:06 PM SOLAR INSTALLATION MANAGER POC GLUCOSE Routine 11/06/2023 1:04 PM SOLAR INSTALLATION MANAGER POC GLUCOSE Routine 11/06/2023 10:49 AM SOLAR INSTALLATION MANAGER TELEMETRY STRIPS 11/06/2023 8:49 AM SOLAR INSTALLATION MANAGER PC LAB GLYCOSYLATED HGB Routine 11/06/2023 6:31 AM SOLAR INSTALLATION MANAGER PROTHROMBIN (PT) & INR Timed 6:31 AM SOLAR INSTALLATION MANAGER PC PHOSPHORUS INORGANIC(PHOSPHATE) Routine 11/06/2023 6:31 AM SOLAR INSTALLATION MANAGER PC MAGNESIUM, SERUM Routine 11/06/2023 6 :31 AM SOLAR INSTALLATION MANAGER PC LAB CBC/PLT Routine 11/06/2023 6:31 AM SOLAR INSTALLATION MANAGER TC LAB BLOOD DRAW BY VENIPUNCTURE Routine 11/06/2023 6:31 AM SOLAR INSTALLATION MANAGER POC GLUCOSE Routine 11/06/2023 5:39 AM SOLAR INSTALLATION MANAGER TELEMETRY STRIPS 11/06/2023 1:52 AM SOLAR INSTALLATION MANAGER POC GLUCOSE Routine 11/05/2023 4:54 PM SOLAR INSTALLATION MANAGER MAGNESIUM Routine 11/05/2023 4:48 PM SOLAR INSTALLATION MANAGER POTASSIUM Routine 11/05/2023 4:48 PM SOLAR INSTALLATION MANAGER CT HEAD NO IV CONTRAST Timed 11:44 AM SOLAR INSTALLATION MANAGER POC GLUCOSE Routine 11/05/2023 11:11 AM SOLAR INSTALLATION MANAGER TELEMETRY STRIPS 11/05/2023 9:25 AM SOLAR INSTALLATION MANAGER EKG ADULT (12-LEAD) Routine 11/05/2023 6 :38 AM SOLAR INSTALLATION MANAGER POC GLUCOSE Routine 11/05/2023 6:07 AM SOLAR INSTALLATION MANAGER CT HEAD NO IV CONTRAST Timed 4:54 AM SOLAR INSTALLATION MANAGER PROTHROMBIN (PT) & INR Timed 4:27 AM SOLAR INSTALLATION MANAGER PC PHOSPHORUS INORGANIC(PHOSPHATE) Routine 11/05/2023 4:27 AM SOLAR INSTALLATION MANAGER PC MAGNESIUM, SERUM Routine 11/05/2023 4 :27 AM SOLAR INSTALLATION MANAGER PC GASES,BLOOD,ANY COMB OF PH,PCD2,PO2,CO2,HCO2 Routine 11/05/2023 4:27 AM SOLAR INSTALLATION MANAGER PC LAB CBC/PLT Routine 11/05/2023 4:27 AM SOLAR INSTALLATION MANAGER TC LAB BLOOD DRAW BY VENIPUNCTURE Routine 11/05/2023 4:27 AM SOLAR INSTALLATION MANAGER PC TROPONIN QUANTITATIVE Timed 11/05/2023 4:27 AM SOLAR INSTALLATION MANAGER PC TROPONIN QUANTITATIVE Timed 11/05/2023 2:58 AM SOLAR INSTALLATION MANAGER CK, TOTAL STAT 11/05/2023 1:32 AM SOLAR INSTALLATION MANAGER FIBRINOGEN STAT 11/05/2023 1:32 AM SOLAR INSTALLATION MANAGER PC LAB PTT STAT 11/05/2023 1:32 AM SOLAR INSTALLATION MANAGER PANEL HEPATIC FUNCTION STAT 1:32 AM SOLAR INSTALLATION MANAGER PC LAB CBC/PLT STAT 11/05/2023 1:32 AM SOLAR INSTALLATION MANAGER PANEL BASIC METABOLIC (BMP) STAT 11/05/2023 1:32 AM SOLAR INSTALLATION MANAGER MAGNESIUM STAT 11/05/2023 1:32 AM SOLAR INSTALLATION MANAGER PHOSPHORUS STAT 11/05/2023 1:32 AM SOLAR INSTALLATION MANAGER PROTHROMBIN (PT) & INR STAT 1:32 AM SOLAR INSTALLATION MANAGER PC IONIZED,CALCIUM STAT 11/05/2023 1: 18 AM SOLAR INSTALLATION MANAGER PC LACTATE (LACTIC ACID) STAT 11/05/2023 1:18 AM SOLAR INSTALLATION MANAGER PC GASES,BLOOD,ANY COMB OF PH,PCD2,PO2,CO2,HCO2 STAT 11/05/2023 1:18 AM SOLAR INSTALLATION MANAGER PC TROPONIN QUANTITATIVE Timed 11/05/2023 1:18 AM SOLAR INSTALLATION MANAGER CT HEAD-NECK - ANGIO - W/IV CON STAT 11/05/2023 12:09 AM SOLAR INSTALLATION MANAGER PC LAB COMPLETE UA STAT 11/04/2023 11 :55 PM SOLAR INSTALLATION MANAGER PF INSERT CATH,ART,PERCUT,SANTA ERM Routine 11/04/2023 11:43 PM SOLAR INSTALLATION MANAGER ED EKG (12-LEAD) Routine 11/04/2023 11:2 5 PM SOLAR INSTALLATION MANAGER CT SPINE LUMBAR NO IV CON STAT 11/04/2023 11:05 PM SOLAR INSTALLATION MANAGER CT SPINE THORACIC NO IV CON STAT 11/04/2023 11:05 PM SOLAR INSTALLATION MANAGER CT CHEST/ABD/PELVIS W/IV CONT STAT 11/04/2023 11:05 PM SOLAR INSTALLATION MANAGER CT SPINE CERVICAL NO IV CON STAT 11/04/2023 11:05 PM SOLAR INSTALLATION MANAGER CT HEAD NO IV CONTRAST STAT 11:05 PM SOLAR INSTALLATION MANAGER XR CHEST 1 VIEW AP OR PA* STAT 11/04/2023 10:57 PM SOLAR INSTALLATION MANAGER TC LAB ER STAT TOTAL HGB STAT 11/04/2023 10:48 PM SOLAR INSTALLATION MANAGER PC ELECTROLYTES PANEL STAT 11/04/2023 10:48 PM SOLAR INSTALLATION MANAGER PC HEPARIN ASSAY STAT 11/04/2023 10:4 5 PM SOLAR INSTALLATION MANAGER EXTRA TUBE - SST Routine 11/04/2023 10:4 5 PM SOLAR INSTALLATION MANAGER TC LAB BLOOD DRAW BY VENIPUNCTURE Routine 11/04/2023 10:45 PM SOLAR INSTALLATION MANAGER PC TROPONIN QUANTITATIVE STAT 11/04/2023 10:45 PM SOLAR INSTALLATION MANAGER PC LAB PTT STAT 11/04/2023 10:45 PM SOLAR INSTALLATION MANAGER PC LAB ED INR STAT 11/04/2023 10:45 PM SOLAR INSTALLATION MANAGER PRECAUTIONARY TUBE STAT 11/04/2023 10 :45 PM SOLAR INSTALLATION MANAGER PC LACTATE (LACTIC ACID) STAT 11/04/2023 10:45 PM SOLAR INSTALLATION MANAGER FIBRINOGEN STAT 11/04/2023 10:45 PM SOLAR INSTALLATION MANAGER PC LAB CBC W/DIFF & PLT STAT 11/04/2023 10:45 PM SOLAR INSTALLATION MANAGER PC GASES,BLOOD,ANY COMB OF PH,PCD2,PO2,CO2,HCO2 STAT 11/04/2023 10:45 PM SOLAR INSTALLATION MANAGER ED US CRITICAL CARE STAT 11/04/2023 1 0:40 PM SOLAR INSTALLATION MANAGER PANEL LIPID Routine 10/10/2021 11:08 AM SOLAR INSTALLATION MANAGER from Last 3 Months or Most Recently Relevant to Health Maintenance Results * (ABNORMAL) PANEL BASIC METABOLIC (BMP) (11/16/2023 7:22 AM SOLAR INSTALLATION MANAGER) Only the most recent of12 resultswithin the time period is included. Sodium 143 135 - 148 mEq/L [facility] Potassium 3.9 3.5 - 5.3 mEq/L [facility] Chloride 105 92 - 108 mEq/L [facility] CO2 27 22 - 30 mEq/L [facility] AnGap 11 8 - 16 mEq/L [facility] Glucose 87 70 - 100 mg/dL [facility] BUN 23 8 - 23 mg/dL [facility] Creatinine 1.19(H) 0.50 - 1.00 mg/dL [facility] Calcium 9.4 8.8 - 10.2 mg/dL [facility] eGFR (2020 CKD-EPI) 46(L) >=60 ml/min/1.7 3m2 [facility] Comment: The estimated glomerular filtration rate (eGFR) was calculated using the CKD-EPI 2020 creatinine equation, which does not include race as a factor. This equation is validated in individuals 18 years of age and older, and eGFR is normalized to a body surface area of 1.73m^2. Blood 11/16/2023 7:22 AM SOLAR INSTALLATION MANAGER 11/16/2023 7:43 AM SOLAR INSTALLATION MANAGER Jesusita Aiken FURNITURE SANDER, SONG LYRICIST LABORATO RY Performing Organization Address [facility] [place] [address] * POC GLUCOSE (11/16/2023 6:58 AM SOLAR INSTALLATION MANAGER) Only the most recent of42 resultswithin the time period is included. POC Glucose 84 70 - 100 mg/dL [facility] Blood 11/16/2023 6:58 AM SOLAR INSTALLATION MANAGER Devin Dougherty MD LABORATORY Performing Organization Address [facility] de Phone Number [facility] [address] [place] [address], * PHOSPHORUS (11/11/2023 6:09 AM SOLAR INSTALLATION MANAGER) Only the most recent of7 resultswithin the time period is included. Phosphorus 3.5 2.5 - 4.5 mg/dL [facility] Blood 11/11/2023 6:09 AM SOLAR INSTALLATION MANAGER 11/11/2023 6:36 AM SOLAR INSTALLATION MANAGER Quinn Covarrubias MD LABORATORY Performing Organization Address [facility] Co de Phone Number [address] [address] * MAGNESIUM (11/11/2023 6:09 AM SOLAR INSTALLATION MANAGER) Only the most recent of8 resultswithin the time period is included. Magnesium 2.2 1.6 - 2.4 mg/dL [facility] Blood 11/11/2023 6:09 AM SOLAR INSTALLATION MANAGER 11/11/2023 6:36 AM SOLAR INSTALLATION MANAGER Quinn Covarrubias MD LABORATORY Performing Organization Address [facility]/ZIP Co de Phone Number [facility] [address] [address] * (ABNORMAL) CBC WITH PLATELET (11/11/2023 6:09 AM SOLAR INSTALLATION MANAGER) Only the most recent of7 resultswithin the time period is included. Pathologist [facility] WBC 5.60 4.00 - 10.00 k/cmm [facility] RBC 3.80(L) 3.90 - 5.20 m/cmm [facility] Hgb 9.5(L) 11.5 - 15.7 g/dL [facility] Hematocrit 31.4(L) 34.0 - 45.0 % [facility] MCV 82.6 80.0 - 100.0 fL [facility] MCH 25.0 25.0 - 32.0 pg [facility] MCHC 30.3(L) 31.0 - 36.0 g/dL [facility] RDW 16.1(H) 11.5 - 14.5 % [facility] Plt 275 150 - 400 k/cmm [facility] MPV 11.8 6.5 - 12.5 fL [facility] Blood 11/11/2023 6:09 AM SOLAR INSTALLATION MANAGER 11/11/2023 6:36 AM SOLAR INSTALLATION MANAGER Quinn Covarrubias MD LABORATORY Performing Organization Address [facility] Co de Phone Number [facility] [address] [address] * ANTI XA ASSAY LMW HEPARIN (11/09/2023 2:18 PM SOLAR INSTALLATION MANAGER) Pathologist [facility] Anti XA LMW 0.32 IU/mL [facility] Comment: Anti Xa Assay LMW Heparin Therapeutic Ranges: 0.4-1.1 IU/mL for twice daily 1.0-2.0 IU/mL for once daily Blood 11/09/2023 2:18 PM SOLAR INSTALLATION MANAGER 11/09/2023 2:29 PM SOLAR INSTALLATION MANAGER Quinn Covarrubais MD LABORATORY Performing Organization Address City/[facility]/ZIP Co de Phone Number [facility] [address] [address] * XR FOOT RIGHT 3 V AP/OBL/LAT* (11/09/2023 10:36 AM SOLAR INSTALLATION MANAGER) Anatomical Region Laterality Modality Foot Computed Radiogr aphy 11/09/2023 10:4 7 AM SOLAR INSTALLATION MANAGER Impressions 11/09/2023 10:50 AM SOLAR INSTALLATION MANAGER Impression: No acute osseous abnormality. Generalized osteopenia. Reading Radiologist: Angela Camp Narrative 11/09/2023 10:50 AM SOLAR INSTALLATION MANAGER Technique: XR FOOT RIGHT 3 V AP/OBL/LAT* [...] Reading Radiologist: Angela Camp Jesusita Aiken APRN, SONG LYRICIST RAD XRAY * TELEMETRY STRIPS (11/09/2023 8:48 AM SOLAR INSTALLATION MANAGER) Only the most recent of12 resultswithin the time period is included. Narrative 11/09/2023 8:48 AM SOLAR INSTALLATION MANAGER Ordered by an unspecified provider. Provider Unknown RAD ECHO * (ABNORMAL) VALPROATE (DEPAKOTE) LEVEL (11/09/2023 5:41 AM SOLAR INSTALLATION MANAGER) Valproate 31.8(L) 50.0 - 100.0 mcg/mL [facility] Blood 11/09/2023 5:41 AM SOLAR INSTALLATION MANAGER 11/09/2023 8:19 AM SOLAR INSTALLATION MANAGER Quinn Covarrubias MD LABORATORY [facility] [address] [id number] * XR CHEST 1 VIEW AP OR PA* (11/08/2023 6:30 AM SOLAR INSTALLATION MANAGER) Only the most recent of2 resultswithin the time period is included. Anatomical Region Laterality Modality Chest Computed Radiogr aphy 11/08/2023 6:56 AM SOLAR INSTALLATION MANAGER Impressions 11/08/2023 7:24 AM SOLAR INSTALLATION MANAGER Impression: Stable chest. I have personally reviewed the image(s) and initial interpretation, and I agree with the findings as documented by the resident/fellow. Reading Radiologist: Ronal Hidalgo Reading Resident: Laith Berkowitz Narrative 11/08/2023 7:24 AM SOLAR INSTALLATION MANAGER Technique: XR CHEST 1 VIEW AP OR [...] VIEWS PA + LAT* (11/07/2023 10:07 AM SOLAR INSTALLATION MANAGER) Anatomical Region Laterality Modality Chest Computed Radiogr aphy 11/07/2023 10:0 9 AM SOLAR INSTALLATION MANAGER Impressions 11/07/2023 10:10 AM SOLAR INSTALLATION MANAGER Impression: New left basilar opacities with small effusion concerning for developing infection. Reading Radiologist: Phil Contreras Narrative 11/07/2023 10:10 AM SOLAR INSTALLATION MANAGER Technique: XR CHEST 2 VIEWS PA + [...] RAD XRAY * PROCALCITONIN (11/07/2023 8:34 AM SOLAR INSTALLATION MANAGER) Procalcitonin 0.12 ng/mL [facility] Comment: Results <0.50 ng/mL represent a low risk of severe sepsis and/or septic shock. Results >2.0 ng/mL represent a high risk of severe sepsis and/or septic shock. Blood 11/07/2023 8:34 AM SOLAR INSTALLATION MANAGER 11/07/2023 8:40 AM SOLAR INSTALLATION MANAGER Quinn Covarrubias MD LABORATORY [facility] [address] [place] [phone] * (ABNORMAL) BLOOD GASES (11/06/2023 1:06 PM SOLAR INSTALLATION MANAGER) Only the most recent of3 resultswithin the time period is included. PH Jalen 7.36 7.32 - 7.42 [facility] PCO2 Jalen 48 41 - 51 mmHG [facility] PO2 Jalen 86(H) 25 - 40 mmHG [facility] Bicarb Jalen 26 24 - 28 mEq/L [facility] O2 Sat Jalen 96 % [facility] Base Exc Jalen 1.0 -10.0 - 2.0 mEq/L [facility] Blood Venous 11/06/2023 1:06 PM SOLAR INSTALLATION MANAGER 11/06/2023 1:10 PM SOLAR INSTALLATION MANAGER Narrative [facility] - 11/06/2023 1:16 PM SOLAR INSTALLATION MANAGER Draw on Room Air: No O2 LPM (liter/min) Level->4 via mask FiO2 Level: 100 Quinn Covarrubias MD LABORATORY Performing Organization Address [facility] Co de Phone Number [facility] [address] [address] * (ABNORMAL) ICU MAGNESIUM (11/06/2023 6:31 AM SOLAR INSTALLATION MANAGER) Only the most recent of2 resultswithin the time period is included. Magnesium 2.5(H) 1.6 - 2.4 mg/dL [facility] Blood 11/06/2023 6:31 AM SOLAR INSTALLATION MANAGER 11/06/2023 7:37 AM SOLAR INSTALLATION MANAGER Devin Dougherty MD LABORATORY Performing Organization Address [facility] Co de Phone Number [facility] [address] [address] * ICU PHOSPHORUS (11/06/2023 6:31 AM SOLAR INSTALLATION MANAGER) Only the most recent of2 resultswithin the time period is included. Phosphorus 4.1 2.5 - 4.5 mg/dL [facility] Blood 11/06/2023 6:31 AM SOLAR INSTALLATION MANAGER 11/06/2023 7:37 AM SOLAR INSTALLATION MANAGER Devin Dougherty MD LABORATORY Performing Organization Address [facility] Co de Phone Number [facility] [address] [address] * (ABNORMAL) ICU CBC WITH PLATELET (11/06/2023 6:31 AM SOLAR INSTALLATION MANAGER) Only the most recent of2 resultswithin the time period is included. WBC 9.06 4.00 - 10.00 k/cmm [facility] RBC 3.77(L) 3.90 - 5.20 m/cmm [facility] Hgb 9.6(L) 11.5 - 15.7 g/dL [facility] Hematocrit 30.8(L) 34.0 - 45.0 % [facility] MCV 81.7 80.0 - 100.0 fL [facility] MCH 25.5 25.0 - 32.0 pg [facility] MCHC 31.2 31.0 - 36.0 g/dL [facility] RDW 15.9(H) 11.5 - 14.5 % [facility] Plt 284 150 - 400 k/cmm [facility] MPV 12.1 6.5 - 12.5 fL [facility] Blood 11/06/2023 6:31 AM SOLAR INSTALLATION MANAGER 11/06/2023 7:37 AM SOLAR INSTALLATION MANAGER Devin Dougherty MD LABORATORY Performing Organization Address [facility] Co de Phone Number [facility] [address] [address] * (ABNORMAL) ICU PANEL BASIC METABOLIC (BMP) (11/06/2023 6:31 AM SOLAR INSTALLATION MANAGER) Only the most recent of2 resultswithin the time period is included. Sodium 142 135 - 148 mEq/L [facility] Potassium 3.7 3.5 - 5.3 mEq/L [facility] Chloride 107 92 - 108 mEq/L [facility] CO2 26 22 - 30 mEq/L [facility] AnGap 9 8 - 16 mEq/L [facility] Glucose 148(H) 70 - 100 mg/dL [facility] BUN 12 8 - 23 mg/dL [facility] Creatinine 0.77 0.50 - 1.00 mg/dL [facility] [facility] Calcium 8.7(L) 8.8 - 10.2 mg/dL [facility] eGFR (2020 CKD-EPI) 77 >=60 ml/min/1.7 3m2 [facility] Comment: The estimated glomerular filtration rate (eGFR) was calculated using the CKD-EPI 2020 creatinine equation, which does not include race as a factor. This equation is validated in individuals 18 years of age and older, and eGFR is normalized to a body surface area of 1.73m^2. Blood 11/06/2023 6:31 AM SOLAR INSTALLATION MANAGER 11/06/2023 7:37 AM SOLAR INSTALLATION MANAGER Devin Dougherty MD LABORATORY Performing Organization Address [facility] Co de Phone Number [facility] [address] [address] * PROTHROMBIN (PT) & INR (11/06/2023 6:31 AM SOLAR INSTALLATION MANAGER) Only the most recent of3 resultswithin the time period is included. PT 11.4 9.0 - 12.5 sec [facility] INR 1.0 0.8 - 1.1 [facility] Comment: Warfarin Therapeutic Range: Standard Intensity: 2.0 - 3.0 High Intensity: 2.5 - 3.5 Blood 11/06/2023 6:31 AM SOLAR INSTALLATION MANAGER 11/06/2023 7:37 AM SOLAR INSTALLATION MANAGER Quinn Covarrubias MD LABORATORY Performing Organization Address [facility] Co de Phone Number [facility] [address] [address] * (ABNORMAL) GLYCOSYLATED HGB - A1C (11/06/2023 6:31 AM SOLAR INSTALLATION MANAGER) Hemoglobin A1C 8.1(H) 4.0 - 5.6 % [facility] Comment: Increased risk for diabetes (prediabetes): 5.7-6.4% Diabetes: greater than or equal to 6.5% * * In the absence of unequivocal hyperglycemia, diagnosis requires two abnormal test results (i.e. HbA1c and glucose) or two abnormal results from specimens collected at two different timepoints. Estimated Average Glucose 186(H) 68 - 114 [facility] Comment: The ADA recommends reporting an estimated Average Glucose (eAG) with all hemoglobin A1c results using the equation derived from a study of 501 normal diabetic adults. Minority populations were underrepresented and children were not included. The EAG is not equivalent to a fasting glucose. Blood 11/06/2023 6:31 AM SOLAR INSTALLATION MANAGER 11/06/2023 11:28 AM SOLAR INSTALLATION MANAGER Quinn Covarrubias MD LABORATORY Performing Organization Address [facility] Co de Phone Number [facility] [address] [address] * (ABNORMAL) POTASSIUM (11/05/2023 4:48 PM SOLAR INSTALLATION MANAGER) Potassium 3.2(L) 3.5 - 5.3 mEq/L [facility] Blood 11/05/2023 4:48 PM SOLAR INSTALLATION MANAGER 11/05/2023 4:58 PM SOLAR INSTALLATION MANAGER Quinn Covarrubias MD LABORATORY [facility] [address] [address] * CT HEAD NO IV CONTRAST (11/05/2023 11:44 AM SOLAR INSTALLATION MANAGER) Only the most recent of3 resultswithin the time period is included. Anatomical Region Laterality Modality Skull Computed Tomogra phy 11/05/2023 12:1 6 PM SOLAR INSTALLATION MANAGER Impressions 11/05/2023 12:38 PM SOLAR INSTALLATION MANAGER Impression: Stable head CT as compared to the study performed 7 hours earlier. Intra-axial and extra-axial hemorrhage(s) without midline shift or hydrocephalus. The basal cisterns are patent. Reading Radiologist: Ford Fernández Narrative 11/05/2023 12:38 PM SOLAR INSTALLATION MANAGER Exam: Head CT without contrast, 11/05/2023 Indication: [...] * EKG ADULT (12-LEAD) (11/05/2023 6:38 AM SOLAR INSTALLATION MANAGER) 11/05/2023 6:38 AM SOLAR INSTALLATION MANAGER Impressions [facility] EKG ORDERS - 11/05/2023 6:38 AM SOLAR INSTALLATION MANAGER SINUS RHYTHM RIGHT BUNDLE BRANCH BLOCK ??[120+ ms QRS DURATION, UPRIGHT V1, 40+ ms S IN I/aVL/V4/V5/V6] ABNORMAL ECG P-R Interval 151 ms QRS Interval 128 ms QT Interval 420 ms QTC Interval 462 ms P Maurice 9 QRS Maurice 27 T Wave Maurice 70 Narrative Procedure Note Lauren Mills MD - 11/06/2023 IMPRESSION SINUS RHYTHM RIGHT BUNDLE BRANCH BLOCK [120+ ms QRS DURATION, UPRIGHT V1, 40+ ms S INI/aVL/V4/V5/V6] ABNORMAL ECG P-R Interval 151 ms QRS Interval 128 ms QT Interval 420 ms QTC Interval 462 ms P Maurice 9 QRS Maurice 27 T Wave Maurice 70 Quinn Covarrubias MD EKG Performing Organization Address [facility] Co de Phone Number [facility] EKG ORDERS * (ABNORMAL) ICU BLOOD GAS (11/05/2023 4:27 AM SOLAR INSTALLATION MANAGER) PH Art 7.38 7.35 - 7.45 [facility] PCO2 Art 42 35 - 45 mmHG [facility] PO2 Art 99(H) 75 - 85 mmHG [facility] Bicarb Art 25 22 - 26 mEq/L [facility] O2 Sat Art 98 96 - 99 % [facility] Base Exc Art 0.0 -10.0 - 2.0 mEq/L [facility] Blood Arterial 11/05/2023 4: 27 AM SOLAR INSTALLATION MANAGER 11/05/2023 4:34 AM SOLAR INSTALLATION MANAGER Devin Dougherty MD LABORATORY Performing Organization Address [facility] Co de Phone Number [facility] [address] [address] * (ABNORMAL) TROP 6H (11/05/2023 4:27 AM SOLAR INSTALLATION MANAGER) 6H Trop 51(H) <=14 ng/L [facility] 6H Delta Significan t(A) Not Significant [facility] Blood 11/05/2023 4:27 AM SOLAR INSTALLATION MANAGER 11/05/2023 4:35 AM SOLAR INSTALLATION MANAGER Devin Dougherty MD LABORATORY Performing Organization Address [facility] Co de Phone Number [facility] [address] [address] * (ABNORMAL) TROP 4H (11/05/2023 2:58 AM SOLAR INSTALLATION MANAGER) 4H Trop 39(H) <=14 ng/L [facility] 4H Delta Significan t(A) Not Significant [facility] Blood 11/05/2023 2:58 AM SOLAR INSTALLATION MANAGER 11/05/2023 3:48 AM SOLAR INSTALLATION MANAGER Devin Dougherty MD LABORATORY Performing Organization Address [facility] Co de Phone Number [facility] [address] [address] * (ABNORMAL) PANEL HEPATIC FUNCTION (11/05/2023 1:32 AM SOLAR INSTALLATION MANAGER) Pathologist [facility] Alk Phos 111(H) 35 - 104 IU/L [facility] Total Protein 6.5 6.4 - 8.3 g/dL [facility] Bili Direct na <=0.3 mg/dL [facility] Comment:Direct Bilirubin = < 0.2. Accuracy of result suspect due to lipemia. Albumin 3.8 3.8 - 5.1 g/dL [facility] Bili Total <0.2 <=1.2 mg/dL [facility] ALT (SGPT) na <=33 [facility] Comment:ALT = 15. Accuracy o f result suspect due to lipemia. AST(SGOT) na 5 - 40 [facility] Comment:AST = 27. Accuracy o f result suspect due to lipemia. Blood 11/05/2023 1:32 AM SOLAR INSTALLATION MANAGER 11/05/2023 1:32 AM SOLAR INSTALLATION MANAGER Devin Dougherty MD LABORATORY Performing Organization Address [facility] Co de Phone Number [facility] [address] [address] * FIBRINOGEN (11/05/2023 1:32 AM SOLAR INSTALLATION MANAGER) Only the most recent of2 resultswithin the time period is included. Fibrinogen 262 200 - 400 mg/dL [facility] Blood 11/05/2023 1:32 AM SOLAR INSTALLATION MANAGER 11/05/2023 1:32 AM SOLAR INSTALLATION MANAGER Devin Dougherty MD LABORATORY [facility] [address] [address] * CK, TOTAL (11/05/2023 1:32 AM SOLAR INSTALLATION MANAGER) CK 56 26 - 192 IU/L [facility] Blood 11/05/2023 1:32 AM SOLAR INSTALLATION MANAGER 11/05/2023 1:32 AM SOLAR INSTALLATION MANAGER Devin Dougherty MD LABORATORY Performing Organization Address City/[facility]/ZIP Co de Phone Number [facility] [address] [address] * PTT (APTT) (11/05/2023 1:32 AM SOLAR INSTALLATION MANAGER) Only the most recent of2 resultswithin the time period is included. APTT 26.0 25.0 - 37.0 sec [facility] Blood 11/05/2023 1:32 AM SOLAR INSTALLATION MANAGER 11/05/2023 1:32 AM SOLAR INSTALLATION MANAGER Devin Dougherty MD LABORATORY Performing Organization Address [facility] Co de Phone Number [address] [address] * (ABNORMAL) TROP 2H (11/05/2023 1:18 AM SOLAR INSTALLATION MANAGER) 2H Trop 18(H) <=14 ng/L [facility] 2H Delta Indeterminate Not Significant [facility] Blood 11/05/2023 1:18 AM SOLAR INSTALLATION MANAGER 11/05/2023 1:45 AM SOLAR INSTALLATION MANAGER Devin Dougherty MD LABORATORY Performing Organization Address City/[facility]/ZIP Co de Phone Number [facility] [address] [address] * LACTATE (LACTIC ACID) (11/05/2023 1:18 AM SOLAR INSTALLATION MANAGER) Only the most recent of2 resultswithin the time period is included. Lactate 1.9 0.7 - 2.1 mmol/L [facility] Blood 11/05/2023 1:18 AM SOLAR INSTALLATION MANAGER 11/05/2023 1:27 AM SOLAR INSTALLATION MANAGER Narrative [facility] - 11/05/2023 1:45 AM SOLAR INSTALLATION MANAGER Send specimen on ice! Devin Dougherty MD LABORATORY Performing Organization Address [facility] Co de Phone Number [address] [address] * CALCIUM,IONIZED (11/05/2023 1:18 AM SOLAR INSTALLATION MANAGER) PH 7.37 7.32 - 7.42 [facility] ICA, Actual 4.82 4.40 - 5.20 mg/dL [facility] ICA, pH Corrected 4.75 4.40 - 5.20 mg/dL [facility] Blood 11/05/2023 1:18 AM SOLAR INSTALLATION MANAGER 11/05/2023 1:27 AM SOLAR INSTALLATION MANAGER Narrative [facility] - 11/05/2023 1:44 AM SOLAR INSTALLATION MANAGER Send specimen on ice! Devin Dougherty MD LABORATORY Performing Organization Address [facility] de Phone Number [address] [address] * CT HEAD-NECK - ANGIO - W/IV CON (11/05/2023 12:09 AM SOLAR INSTALLATION MANAGER) Anatomical Region Laterality Modality Skull Computed Tomogra phy 11/05/2023 12:2 1 AM SOLAR INSTALLATION MANAGER Impressions 11/05/2023 10:22 AM SOLAR INSTALLATION MANAGER Impression: ?? Slightly increased size of the [...] Resident: Laith Berkowitz Narrative 11/05/2023 10:22 AM SOLAR INSTALLATION MANAGER CT angiogram of the Head with contrast, [...] and reviewed by the Radiologist using the [employer] workstation, and these images were archived in [...] and reviewed by the Radiologist using the [employer] workstation,and these images were archived in the [...] NEURO * (ABNORMAL) URINALYSIS,TOTAL (11/04/2023 11:55 PM SOLAR INSTALLATION MANAGER) Color COLORLESS YELLOW [facility] Appearance CLEAR CLEAR [facility] Urine Glucose 100(A) NEGATIVE mg/dL [facility] Bili UA NEGATIVE NEGATIVE [facility] Ketones NEGATIVE NEGATIVE [facility] Specific [place] 1.036(A) 1.003 - 1.030 [facility] Blood Ur NEGATIVE Neg-Trace [facility] PH Urine 7.5(H) 5.0 - 7.0 [facility] Protein Ur TRACE Neg-Trace [facility] Urobilinogen NORMAL NORMAL EU/dL [facility] Nitrite Ur NEGATIVE NEGATIVE [facility] Leuk Est NEGATIVE Neg-Trace [facility] WBC Ur 0-5 0 - 5 perHPF [facility] RBC Ur 0-3 0 - 3 perHPF [facility] SQ EPITH 0-5 0 - 5 perHPF [facility] Urinalysis Performed at: [facility] Urine 11/04/2023 11:5 5 PM SOLAR INSTALLATION MANAGER 11/05/2023 12:03 AM SOLAR INSTALLATION MANAGER Devin Dougherty MD LABORATORY [facility] [address] [address] * PF INSERT CATH,ART,PERCUT,SHORTTERM (11/04/2023 11:43 PM SOLAR INSTALLATION MANAGER) Narrative Rito Graf MD - 11/04/2023 11:43 PM SOLAR INSTALLATION MANAGER Priscilla Holcomb MD ? 11/04/2023 11:44 PM Arterial Line Performed by: Priscilla Holcomb MD Authorized by: Rito Graf MD ?? Consent: ??Consent obtained: ??Verbal ??Consent given by: ??Patient ??Risks discussed: ??Pain, bleeding and infection [place] protocol: ??Patient identity confirmed: ??Verbally with patient, [...] * ED EKG (12-LEAD) (11/04/2023 11:25 PM SOLAR INSTALLATION MANAGER) 11/04/2023 11:2 5 PM SOLAR INSTALLATION MANAGER Impressions [facility] EKG ORDERS - 11/04/2023 11:25 PM SOLAR INSTALLATION MANAGER SINUS TACHYCARDIA RIGHT BUNDLE BRANCH BLOCK ??[120+ ms QRS DURATION, UPRIGHT V1, 40+ ms S IN I/aVL/V4/V5/V6] ABNORMAL ECG P-R Interval 173 ms QRS Interval 127 ms QT Interval 395 ms QTC Interval 458 ms P Maurice 57 QRS Maurice 34 T Wave Maurice 43 Narrative Procedure Note Vineet Díaz MD - 11/05/2023 IMPRESSION SINUS TACHYCARDIA RIGHT BUNDLE BRANCH BLOCK [120+ ms QRS DURATION, UPRIGHT V1, 40+ ms S INI/aVL/V4/V5/V6] ABNORMAL ECG P-R Interval 173 ms QRS Interval 127 ms QT Interval 395 ms QTC Interval 458 ms P Maurice 57 QRS Maurice 34 T Wave Maurice 43 Devin Dougherty MD EKG [facility] EKG ORDERS * CT SPINE THORACIC NO IV CON (11/04/2023 11:05 PM SOLAR INSTALLATION MANAGER) Anatomical Region Laterality Modality Thoracic Spine Computed Tomogra phy 11/04/2023 11:2 3 PM SOLAR INSTALLATION MANAGER Impressions 11/05/2023 9:22 AM SOLAR INSTALLATION MANAGER Impression: 1. No suspected acute fracture or dislocation of the thoracic or lumbar spine. ?? 2. Colf-xh-cxsqndwv lumbar spondylosis without suspected high-grade spinal canal or neural foraminal narrowing. I have personally reviewed the image(s) and initial interpretation, and I agree with the findings as documented by the resident/fellow. Reading Radiologist: Ford Fernández Reading Resident: Laith Berkowitz 11/05/2023 9:22 AM SOLAR INSTALLATION MANAGER Exam: Thoracic and Lumbar Spine CT Reconstructions, [...] dislocation of the thoracic or lumbarspine. 2. Iosn-dz-vsccylap lumbar spondylosis without suspected high-grade spinalcanal or neural foraminal narrowing. I have personally reviewed the image(s) and initial interpretation, and Iagree with the findings as documented by the resident/fellow. Reading Radiologist: Ford Fernández Resident: Laith Berkowitz Devin Dougherty MD RAD CT NEURO * CT SPINE LUMBAR NO IV CON (11/04/2023 11:05 PM SOLAR INSTALLATION MANAGER) Anatomical Region Laterality Modality Lumbar Spine Computed Tomogra phy 11/04/2023 11:2 3 PM SOLAR INSTALLATION MANAGER Impressions 11/05/2023 9:22 AM SOLAR INSTALLATION MANAGER Impression: 1. No suspected acute fracture or dislocation of the thoracic or lumbar spine. ?? 2. Xqvc-jd-jgppohnj lumbar spondylosis without suspected high-grade spinal canal or neural foraminal narrowing. I have personally reviewed the image(s) and initial interpretation, and I agree with the findings as documented by the resident/fellow. Reading Radiologist: Ford Fernández Resident: Laith Berkowitz Narrative 11/05/2023 9:22 AM SOLAR INSTALLATION MANAGER Exam: Thoracic and Lumbar Spine CT Reconstructions, [...] dislocation of the thoracic or lumbarspine. 2. Rcxs-re-vxjqrkib lumbar spondylosis without suspected high-grade spinalcanal or neural foraminal narrowing. I have personally reviewed the image(s) and initial interpretation, and Iagree with the findings as documented by the resident/fellow. Reading Radiologist: Ford Fernández Resident: Laith Berkowitz Devin Dougherty MD RAD CT NEURO * CT SPINE CERVICAL NO IV CON (11/04/2023 11:05 PM SOLAR INSTALLATION MANAGER) Anatomical Region Laterality Modality Cervical Spine Computed Tomogra phy 11/04/2023 11:2 0 PM SOLAR INSTALLATION MANAGER Impressions 11/05/2023 8:27 AM SOLAR INSTALLATION MANAGER Impression: ?? 1. No acute fracture or traumatic subluxation of the cervical vertebrae. 2. Mild degenerative changes of the cervical spine without high-grade spinal canal or neural foraminal narrowing. I have personally reviewed the image(s) and initial interpretation, and I agree with the findings as documented by the resident/fellow. Reading Radiologist: Ford Fernández Resident: Laith Berkowitz Narrative 11/05/2023 8:27 AM SOLAR INSTALLATION MANAGER Exam: Cervical spine CT without contrast, 11/04/2023 [...] spinal canal narrowing. C5-6: Mild left and dkaa-rz-ptlxvqhx right neural foraminal narrowing. Borderline mild spinal [...] spinal canal narrowing. C5-6: Mild left and cunf-if-ewmhvlbz right neural foraminal narrowing.Borderline mild spinal canal [...] CT CHEST/ABD/PELVIS W/IV CONT (11/04/2023 11:05 PM SOLAR INSTALLATION MANAGER) Anatomical Region Laterality Modality Chest Computed Tomogra phy 11/04/2023 11:2 9 PM SOLAR INSTALLATION MANAGER Impressions 11/05/2023 6:33 AM SOLAR INSTALLATION MANAGER Impression: 1. No acute traumatic sequelae in [...] Resident: Laith Berkowitz Narrative 11/05/2023 6:33 AM SOLAR INSTALLATION MANAGER Comparison: None Indication: Trauma (STAB) ?? Technique: [...] ED CHEMISTRY LABS(NA,K,CL,CO2,GLU,CREAT,CA-IONIZED,ANION GAP) (11/04/2023 10:48 PM SOLAR INSTALLATION MANAGER) Sodium 144 135 - 148 mEq/L [facility] Chloride 106 92 - 108 mEq/L [facility] AnGap 11 8 - 16 mEq/L [facility] Glucose 234(H) 70 - 100 mg/dL [facility] ICA, Actual 4.52 4.40 - 5.20 mg/dL [facility] ICA, pH Corrected 4.51 4.40 - 5.20 mg/dL [facility] Creatinine 0.81 0.50 - 1.00 mg/dL [facility] BICARB 27(H) 22 - 26 mEq/L [facility] eGFR (2020 CKD-EPI) 73 >=60 ml/min/1.7 3m2 [facility] Comment: The estimated glomerular filtration rate (eGFR) was calculated using the CKD-EPI 2020 creatinine equation, which does not include race as a factor. This equation is validated in individuals 18 years of age and older, and eGFR is normalized to a body surface area of 1.73m^2. Potassium 2.8(AA) 3.5 - 5.3 mEq/L [facility] Comment:Critcal Result Low Blood 11/04/2023 10:4 8 PM SOLAR INSTALLATION MANAGER 11/04/2023 10:49 PM SOLAR INSTALLATION MANAGER Narrative [facility] - 11/04/2023 10:55 PM SOLAR INSTALLATION MANAGER Critical value for Potassium called to and read back by Rafa Hutchins RN in ??EDSTAB 2 at 11/04/2023 22:55:31 SOLAR INSTALLATION MANAGER by Eleni Spring MLS. Devin Dougherty MD LABORATORY Performing Organization Address [facility] Co de Phone Number [address] [address] * (ABNORMAL) ED HEMOGLOBIN TOTAL (ED ONLY) (11/04/2023 10:48 PM SOLAR INSTALLATION MANAGER) Hgb 10.3(L) 11.5 - 15.7 g/dL [facility] Blood 11/04/2023 10:4 8 PM SOLAR INSTALLATION MANAGER 11/04/2023 10:49 PM SOLAR INSTALLATION MANAGER Devin Dougherty MD LABORATORY Performing Organization Address [facility] Co de Phone Number [address] [address] * ED INR (11/04/2023 10:45 PM SOLAR INSTALLATION MANAGER) Pathologist [facility] ED INR 1.0 0.8 - 1.1 [facility] Comment: Warfarin Therapeutic Range: Standard Intensity: 2.0 - 3.0 High Intensity: 2.5 - 3.5 Blood 11/04/2023 10:4 5 PM SOLAR INSTALLATION MANAGER 11/04/2023 10:48 PM SOLAR INSTALLATION MANAGER Devin Dougherty MD LABORATORY Performing Organization Address [facility] Co de Phone Number [facility] [address] [address] * EXTRA TUBE - LIGHT GREEN (11/04/2023 10:45 PM SOLAR INSTALLATION MANAGER) LIGHT GREEN TUBE Stored [facility] Comment:Green tubes ([place] Heparin) are stored in the lab for 3 days from the collection date. Blood 11/04/2023 10:4 5 PM SOLAR INSTALLATION MANAGER 11/04/2023 10:50 PM SOLAR INSTALLATION MANAGER Devin Dougherty MD LABORATORY Performing Organization Address [facility] Co de Phone Number [facility] [address] [address] * EXTRA TUBE - SST (11/04/2023 10:45 PM SOLAR INSTALLATION MANAGER) Pathologist [facility] SST TUBE Stored [facility] Comment:SST tubes (Serum Sep arator) are stored in the lab for 3 days from the collection date. Blood 11/04/2023 10:4 5 PM SOLAR INSTALLATION MANAGER 11/04/2023 10:50 PM SOLAR INSTALLATION MANAGER Devin Dougherty MD LABORATORY [facility] [address] [address] * HS TROPONIN (11/04/2023 10:45 PM SOLAR INSTALLATION MANAGER) [facility] HS Troponin I 10 <=14 ng/L [facility] Blood 11/04/2023 10:4 5 PM SOLAR INSTALLATION MANAGER 11/04/2023 11:05 PM SOLAR INSTALLATION MANAGER Narrative [facility] - 11/04/2023 11:36 PM SOLAR INSTALLATION MANAGER First Occurrence of the Troponin order is to be drawn Stat by Nursing staff on the unit. Devin Dougherty MD LABORATORY [facility] [address] [address] * (ABNORMAL) CBC WITH PLTS/AUTO DIFF (11/04/2023 10:45 PM SOLAR INSTALLATION MANAGER) Pathologist [facility] WBC 9.42 4.00 - 10.00 k/cmm [facility] RBC 3.86(L) 3.90 - 5.20 m/cmm [facility] Hgb 9.8(L) 11.5 - 15.7 g/dL [facility] Hematocrit 31.8(L) 34.0 - 45.0 % [facility] MCV 82.4 80.0 - 100.0 fL [facility] MCH 25.4 25.0 - 32.0 pg [facility] MCHC 30.8(L) 31.0 - 36.0 g/dL [facility] RDW 15.3(H) 11.5 - 14.5 % [facility] Plt 292 150 - 400 k/cmm [facility] MPV 11.1 6.5 - 12.5 fL [facility] Automated Abs Neutrophil 5.80 1.70 - 6.50 k/cmm [facility] Comment:Preliminary ANC, Fin al Result to Follow Abs Immature Granulocyte 0.07 0.00 - 0.09 k/cmm [facility] Comment:The Immature Granulo cyte Absolute count contains metamyelocytes and myelocytes. Abs Neutrophil 5.80 1.70 - 6.50 k/cmm [facility] Abs Lymphocyte 2.33 0.80 - 4.00 k/cmm [facility] Abs Monocyte 0.88 0.20 - 1.00 k/cmm [facility] Abs Eosinophil 0.27 0.00 - 0.60 k/cmm [facility] Abs Basophil 0.07 0.00 - 0.20 k/cmm [facility] Blood 11/04/2023 10:4 5 PM SOLAR INSTALLATION MANAGER 11/04/2023 11:05 PM SOLAR INSTALLATION MANAGER Devin Dougherty MD LABORATORY Performing Organization Address City/[facility]/ZIP Co de Phone Number [facility] [address] [address] * PRECAUTIONARY TUBE (11/04/2023 10:45 PM SOLAR INSTALLATION MANAGER) Prec Tube Precautionary Blood Bank Specimen Received. [facility] Blood 11/04/2023 10:4 5 PM SOLAR INSTALLATION MANAGER 11/04/2023 10:52 PM SOLAR INSTALLATION MANAGER Devin Dougherty MD LAB TRANSFUSION SER VICES Performing Organization Address City/[facility]/ZIP Co de Phone Number [facility] [address] [address] * (ABNORMAL) ANTI XA HEPARIN UNFRACTIONATED (11/04/2023 10:45 PM SOLAR INSTALLATION MANAGER) Anti XA Hep U <0.04(L) 0.30 - 0.70 IU/mL [facility] Blood 11/04/2023 10:4 5 PM SOLAR INSTALLATION MANAGER 11/04/2023 11:05 PM SOLAR INSTALLATION MANAGER Devin Dougherty MD LABORATORY [facility] [address] [address] * ED US CRITICAL CARE (11/04/2023 10:40 PM SOLAR INSTALLATION MANAGER) Anatomical Region Laterality Modality Ultrasound Narrative 11/04/2023 11:28 PM SOLAR INSTALLATION MANAGER ED Trauma eFAST Ultrasound Indications: Suspicion of [...] Advance Directives For more information, please contact: [phone] Latest Code Status on File Code Status [...] Code Status With Whom? Patient Care Teams Merchandise Director Relationship Specialty Start Date End Date Eloise Reeves DO [address] [place] [address] PCP - General Family Medicine 11/06/23
--- OUTSIDE RECORDS SUMMARY | 2023-12-15 20:13 | XMS_ITS | Encounter Summary ---
Author Name Unknown Organization [facility] Address [address] [place] [address] Phone Care Team Providers Care Undertaker Assistant Name Role Phone Eloise Reeves DO Primary Care Provider Reason for Visit * Reason Comments Referral TBI * Consult/Test/Treat (Routine) - Closed Specialty Diagnoses / Procedures Referred By Contac t Referred To Contact Physical Medicine and Rehab / PHYSICAL MEDICINE AND REHAB Diagnoses Fall, initial encounter SDH (subdural hematoma) ([facility]) SAH (subarachnoid hemorrhage) ([facility]) Traumatic brain injury with loss of consciousness, initial encounter ([facility]) Jesusita Aiken, TAMMIE, IDENTIFICATION PRINTING MACHINE SETTER [address] [place] [address] Csc [facility] Cl [address] [place] [address] Referral ID Status Reason Start Date Expiration Date Visits Re quested Visits Authorized [id number] Closed 11/08/2023 11/07/2024 1 1 Encounter Details Date Type Department Care Team (Latest Contact Info) Description 11/27/2023 1:00 PM SUPERINTENDENT COMMUNICATIONS [facility] [address] [address] Leidy Velazquez PA-C [address] [address] Mild traumatic brain injury, with [...] Coronavirus/COVID-19? No / Unsure 11/04/2023 10:48 PM SUPERINTENDENT COMMUNICATIONS documented as of this encounter Last Filed Vital Signs Vital Sign Reading Time Taken Comments Blood Pressure 108/71 11/27/2023 12:54 PM SUPERINTENDENT COMMUNICATIONS Pulse 74 11/27/2023 12:54 PM SUPERINTENDENT COMMUNICATIONS Temperature - - Respiratory Rate - - Oxygen Saturation - - Inhaled Oxygen Concentration - - Weight 61.6 kg (135 lb 12.8 oz) 024 12:54 PM SUPERINTENDENT COMMUNICATIONS Height - - Body Mass Index 28.38 11/05/2023 12:03 AM SUPERINTENDENT COMMUNICATIONS documented in this encounter Patient Instructions * Patient Instructions* Leidy Velazquez PA-C - 11/27/2023 1:00 PM SUPERINTENDENT COMMUNICATIONS You were seen at [facility] for traumatic brain injury. You have been [...] you do not hear from them, call [phone] to schedule Psychiatry for mood changes, this is for evaluation and treatment recommendations that may include medication. You will need to call to schedule this appointment. Please call [phone] and inform them you have a referral [...] to your scheduled appointment by calling at [phone]. If you miss three or more appointments, [...] plan ahead. Paperwork can be faxed to [phone]. Brain Injury and Physical Medicine & Rehabilitation Contact List Lista de contactos de lesiones cerebrales traum??rochelle, medicina f??gricelda y rehabilitaci??ora Ibrahim Maskxada jenn Jim[employer] Phone To Schedule Appointments Para programar citas Hadii aad dooneeyso inaad norman sameeysato They make appointments for your doctor in the TBI/PMR clinic and your therapists [phone] Staff Nurse Nicolas carney??kirti Davalos Call for questions about medications, symptoms, or paperwork issues You can fax paperwork to [phone]. [phone] Health Information Management (HIM)/Medical Records Registros medicos Ashu Holloway Contact them if you need copies of your medical records at [facility]. If you work with a [facility] they shouldcontact [facility] for their updates. You can also visit them on Blue 1. They are open Sunday-Sunday. If you need a form for Authorization to Release Health Information, you may request one at an appointment or download a form online at: [email or web address] Patient Billing/ Financial Assistance Facturaci??n Ellie Saunders/Meli duran If you have questions or problems with your medical bills. Financial assistance, insurance issues, or for more information about your medical bill. [phone] Community Resources: The [place] [facility] offers resource facilitation at [email or web address]. Online courses [...] please call the TBI nurse at . RINTENDENT COMMUNICATIONS documented in this encounter Progress Notes * Leidy Velazquez PA-C - 11/27/2023 1:00 PM CST [place], [place] [id number] [place] [address]#: [phone] PATIENT: Lucinda Casas : 1940 DATE OF [...] including pre-visit review of separately obtained history, [id number] interaction performing medically appropriate physical exam, patient [...] including pre-visit review of separately obtained history, [id number] interaction performing medically appropriate physical exam, patient counseling/education, interpretation of diagnostic results, care coordination and documentation. External records reviewed through care everywhere, [facility] documentation reviewed for information regarding injury. History collected through review of records, in addition to patient report. 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
--- OUTSIDE RECORDS SUMMARY | 2023-12-15 20:15 | XMS_ITS | Encounter Summary ---
Author Name Unknown Organization [facility] Address [address] [place] [address] Phone Care Team Providers Care Casino Operations Supervisor Name Role Phone Eloise Reeves DO [...] Coronavirus/COVID-19? No / Unsure 11/04/2023 10:48 PM CROSSING WATCHMAN documented as of this encounter Plan of Treatment Not on file documented as of this encounter Procedures Procedure Name Priority Date/Time Associated Diagnosis Comments TELEMETRY STRIPS 11/08/2023 7:31 PM CROSSING WATCHMAN documented in this encounter Results * TELEMETRY STRIPS (11/08/2023 7:31 PM CROSSING WATCHMAN) Narrative 11/08/2023 7:31 PM CROSSING WATCHMAN Ordered by an unspecified provider. Provider Unknown RAD ECHO documented in this encounter Visit Diagnoses Not on filedocumented in this encounter Care Teams Casino Operations Supervisor Relationship Specialty Start Date End Date Eloise Reeves [address] [place] [address] PCP - General Family Medicine 11/06/23 documented as of this encounter
--- OUTSIDE RECORDS SUMMARY | 2023-12-15 20:15 | XMS_ITS | Encounter Summary ---
Author Name Unknown Organization [facility] Address [address] [place] [address] Phone Care Team Providers Care Jig Borer Name Role Phone Eloise Reeves DO Primary [...] Coronavirus/COVID-19? No / Unsure 11/04/2023 10:48 PM DENSITOMETRIST documented as of this encounter Plan of Treatment Not on file documented as of this encounter Procedures Procedure Name Priority Date/Time Associated Diagnosis Comments TELEMETRY STRIPS 11/06/2023 1:52 AM DENSITOMETRIST documented in this encounter Results * TELEMETRY STRIPS (11/06/2023 1:52 AM DENSITOMETRIST) Narrative 11/06/2023 1:52 AM DENSITOMETRIST Ordered by an unspecified provider. Provider Unknown RAD ECHO documented in this encounter Visit Diagnoses Not on filedocumented in this encounter Care Teams Jig Borer Relationship Specialty Start Date End Date Eloise Reeves DO [address] [place] [address] PCP - General Family Medicine 11/06/23 documented as of this encounter
--- OUTSIDE RECORDS SUMMARY | 2023-12-15 20:15 | XMS_ITS | Encounter Summary ---
Author Name Unknown Organization [facility] Address [address] [place] [address] Phone Care Team Providers Care Reporting Developer Name Role Phone Eloise Reeves DO [...] Coronavirus/COVID-19? No / Unsure 11/04/2023 10:48 PM FOOD COOKING MACHINE OPERATOR documented as of this encounter Plan of Treatment Not on file documented as of this encounter Procedures Procedure Name Priority Date/Time Associated Diagnosis Comments TELEMETRY STRIPS 11/08/2023 9:49 AM FOOD COOKING MACHINE OPERATOR documented in this encounter Results * TELEMETRY STRIPS (11/08/2023 9:49 AM FOOD COOKING MACHINE OPERATOR) Narrative 11/08/2023 9:49 AM FOOD COOKING MACHINE OPERATOR Ordered by an unspecified provider. Provider Unknown RAD ECHO documented in this encounter Visit Diagnoses Not on filedocumented in this encounter Care Teams Reporting Developer Relationship Specialty Start Date End Date Eloise Reeves DO [address] [place] [address] PCP - General Family Medicine 11/06/23 documented as of this encounter
--- OUTSIDE RECORDS SUMMARY | 2023-12-15 20:15 | XMS_ITS | Encounter Summary ---
Author Name Unknown Organization [facility] Address [address] [place] [address] Phone Care Team Providers Care Shelter Advocate Name Role Phone Eloise Reeves DO Primary Care Provider [phone] Encounter Details Date Type Department Care Team [...] Coronavirus/COVID-19? No / Unsure 11/04/2023 10:48 PM TECHNICAL SERVICES REP documented as of this encounter Plan of Treatment Not on file documented as of this encounter Procedures Procedure Name Priority Date/Time Associated Diagnosis Comments TELEMETRY STRIPS 11/06/2023 4:28 PM TECHNICAL SERVICES REP documented in this encounter Results * TELEMETRY STRIPS (11/06/2023 4:28 PM TECHNICAL SERVICES REP) Narrative 11/06/2023 4:28 PM TECHNICAL SERVICES REP Ordered by an unspecified provider. Provider Unknown RAD ECHO documented in this encounter Visit Diagnoses Not on filedocumented in this encounter Care Teams Shelter Advocate Relationship Specialty Start Date End Date Eloise Reeves DO [address] [place] [address] PCP - General Family Medicine 11/06/23 documented as of this encounter
--- OUTSIDE RECORDS SUMMARY | 2023-12-15 20:15 | XMS_ITS | Encounter Summary ---
Author Name Unknown Organization [facility] Address [address] [place] [address] Phone Care Team Providers Care Sql Etl Developer Name Role Phone Eloise Reeves DO [...] Coronavirus/COVID-19? No / Unsure 11/04/2023 10:48 PM LOCAL BULK DRIVER documented as of this encounter Plan of Treatment Not on file documented as of this encounter Procedures Procedure Name Priority Date/Time Associated Diagnosis Comments TELEMETRY STRIPS 11/06/2023 8:49 AM LOCAL BULK DRIVER documented in this encounter Results * TELEMETRY STRIPS (11/06/2023 8:49 AM LOCAL BULK DRIVER) Narrative 11/06/2023 8:49 AM LOCAL BULK DRIVER Ordered by an unspecified provider. Provider Unknown RAD ECHO documented in this encounter Visit Diagnoses Not on filedocumented in this encounter Care Teams Sql Etl Developer Relationship Specialty Start Date End Date Eloise Reeves DO [address] [place] [address] PCP - General Family Medicine 11/06/23 documented as of this encounter
--- OUTSIDE RECORDS SUMMARY | 2023-12-15 20:15 | XMS_ITS | Clinical Summary ---
Author Name Unknown Organization [facility] Address [place], [place] [address] Care Team Providers Care Hospital Manager Name Role Phone Eloise Reeves Primary Care Provider [phone]- [phone] Allergies Active Allergy Reactions Criticality Noted Date [...] PVCs 10/20/2014 Breast cancer, left Overview: in [place], had mastectomy. No chemo or radiation Encounters Date Type Department Care Team Description 12/13/2023 Telephone [facility] [address] [place] [address] Eloise Reeves DO update 12/13/2023 Telephone [facility] [address] [place] [address] Eloise Reeves DO Follow Up (Patient is in the hospital) 12/13/2023 Telephone [facility] [address] [place] [address] Eloise Reeves DO CALL (CALL BACK ) 12/12/2023 1:05 PM SUPERVISOR MACHINE WORKERS Office Visit [facility] [address] [place] [address] Eloise Reeves DO Hospital F/U 12/12/2023 Orders Only [facility] Scanner 1 scan: (1-Ord) NEGRO MAYES HEAD/BRAIN W/O CON, 12/12/2023 12/12/2023 Travel 12/11/2023 Telephone [facility] [address] [facility] [place] [address] Eloise Reeves DO Tremors 12/10/2023 Telephone [facility] [address] [place] [address] Eloise Reeves DO Concerns (12/12/23) 11/29/2023 Telephone [facility] [address] [facility] [address] Eloise Reeves DO Appointment Request 11/22/2023 10:30 AM SUPERVISOR MACHINE WORKERS Office Visit [facility] [address] [place] [address] [address] IT COMMUNICATIONS MANAGER Failed Appointment 11/02/2023 Telephone [facility] [address] [facility] [address] Eloise Reeves DO Results 11/01/2023 1:05 PM SUPERVISOR MACHINE WORKERS Office Visit [facility] [address] [facility] [place] [address] Eloise Reeves DO Follow Up 11/01/2023 Orders Only [facility] [address] [place] [address] Eloise Reeves DO <No scans attached> 11/01/2023 Travel 10/16/2023 10:30 AM SUPERVISOR MACHINE WORKERS Office Visit [facility] [place] [address] [address], [facility] Visit 10/16/2023 Travel 10/10/2023 Telephone [facility] [place] [facility] [address] [facility] [place] [address] Twan Suresh MD Referral (Patient is ready to be scheduled. Referral consult to Neurology. ) 10/09/2023 1:05 PM SUPERVISOR MACHINE WORKERS Office Visit [facility] [address] [facility] [place] [address] Eloise Reeves DO Follow Up; Tremors 10/09/2023 Telephone [facility] [address] [facility] [place] [address] García Driscoll MD Error-please disregard 10/09/2023 Travel 10/04/2023 10:30 AM SUPERVISOR MACHINE WORKERS Office Visit [facility] [address] [facility] [place] [address] [address], FARHAN Failed Appointment 09/28/2023 Telephone [facility] [address] [place] [address] Eloise Reeves DO Results 09/27/2023 Orders Only [facility] [address] [place] [address] Eloise Reeves DO <No scans attached> 09/26/2023 1:55 PM SUPERVISOR MACHINE WORKERS Office Visit [facility] [address] [place] [address] Eloise Reeves DO Dizziness (1 day); Nausea (1 day); Diarrhea (1 day); Urinary Problem (frequency) 09/26/2023 Travel 09/25/2023 Telephone [facility] [address] [place] [address] Eloise Reeves DO Appointment Request (FOLLOW UP BEFORE 11-01-2023) 09/17/2023 10:30 AM SUPERVISOR MACHINE WORKERS Office Visit [facility] [address] [facility] [place] [address] [address], IT COMMUNICATIONS MANAGER [facility] Visit 09/17/2023 Travel from Last 3 Months Immunizations Name [...] Comments Blood Pressure 126/70 12/12/2023 1:00 PM SUPERVISOR MACHINE WORK[employer] Pulse 108 12/12/2023 12:10 PM SUPERVISOR MACHINE WORKERS Temperature 37.1 ??C (98.8 ??F) 04/04/2022 12:51 PM C DT Respiratory Rate 16 08/22/2022 9:54 AM CDT Oxygen Saturation 99% 12/12/2023 12:10 PM SUPERVISOR MACHINE WORKERS Inhaled Oxygen Concentration - - Weight 67.6 kg (149 lb) 11/01/2023 11:36 AM SUPERVISOR MACHINE WORKERS Height 142.8 cm (4' 8.22) 01/02/2023 1:43 PM CS T Body Mass Index 33.14 01/02/2023 1:43 PM SUPERVISOR MACHINE WORKERS Plan of Treatment Upcoming Encounters Date Type Department Care Team (Late st Contact Info) Description 12/18/2023 9:35 AM SUPERVISOR MACHINE WORKERS Office Visit [facility] [address] [place] [address] Eloise Reeves DO [address] [place] [address] Health Maintenance Due Date Last Done Comments [...] Procedure Name Priority Date/Time Associated Diagnosis Comments SCAN-CT INTERPRETATION 12:00 AM SUPERVISOR MACHINE WORKERS CREATININE Routine 11/01/2023 12:37 PM SUPERVISOR MACHINE WORKERS Gout of left foot, unspecified cause, unspecified chronicity POTASSIUM Routine 11/01/2023 12:37 PM SUPERVISOR MACHINE WORKERS Hypokalemia URINALYSIS MICROSCOPIC Routine 3 3:25 PM SUPERVISOR MACHINE WORKERS Urinary frequency UA W/ SEDIMENT EXAM REFLEXED PER CRITERIA Routine 09/26/2023 3:25 PM SUPERVISOR MACHINE WORKERS Urinary frequency BASIC METABOLIC PANEL Routine 09/26/2023 2:55 PM SUPERVISOR MACHINE WORKERS HTN (hypertension) HEMOGLOBIN Routine 09/26/2023 2:55 PM SUPERVISOR MACHINE WORKERS Anemia of unknown etiology from Last 3 Months Results * SCAN-CT INTERPRETATION (12/12/2023 12:00 AM SUPERVISOR MACHINE WORKERS) Anatomical Region Laterality Modality Other Scanner OTHER * POTASSIUM (11/01/2023 12:37 PM SUPERVISOR MACHINE WORKERS) POTASSIUM 3.5 3.5 - 5.1 mmol/L 11/01/2023 9:42 PM SUPERVISOR MACHINE WORKERS [facility] Blood BLOOD SPECIMEN / Unknown Venipuncture / Unknown 11/01/2023 12:37 PM SUPERVISOR MACHINE WORKERS 11/01/2023 12:39 PM SUPERVISOR MACHINE WORKERS Eloise Salazarmargy CHEMISTRY Performing Organization Address [facility] de Phone Number [facility] [address] [place] [address], [place] * (ABNORMAL) CREATININE (11/01/2023 12:37 PM SUPERVISOR MACHINE WORKERS) eGFR 73(L) >90 mL/min/1.7 3m2 11/01/2023 9:42 PM SUPERVISOR MACHINE WORKERS [facility] Comment:As of 2022, eG FR is calculated by the CKD-EPI creatinine equation without race adjustment. ??eGFR can be influenced by muscle mass, exercise, and diet. ??The reported eGFR is an estimation only and is only applicable if the renal function is stable. CREATININE 0.81 0.50 - 0.90 mg/dL 11/01/2023 9:42 PM SUPERVISOR MACHINE WORKERS [facility] Blood BLOOD SPECIMEN / Unknown Venipuncture / Unknown 11/01/2023 12:37 PM SUPERVISOR MACHINE WORKERS 11/01/2023 12:39 PM SUPERVISOR MACHINE WORKERS Eloise Reeves DO CHEMISTRY Performing Organization Address [facility] de Phone Number [facility] [address] [place] [address], [place] * URINALYSIS MICROSCOPIC (09/26/2023 3:25 PM SUPERVISOR MACHINE WORKERS) RBC 0-2 0-2, None Seen /HPF 09/26/2023 3:35 PM SUPERVISOR MACHINE WORKERS [facility] WBC 0-2 0-2, 3-5, None Seen /HPF 09/26/2023 3:35 PM SUPERVISOR MACHINE WORKERS [facility] BACTERIA Few None Seen, Rare, Few Bacteria/H PF 09/26/2023 3:35 PM SUPERVISOR MACHINE WORKERS [facility] EPITHELIAL CELLS Few None Seen, Few Epi/HPF 09/26/2023 3:35 PM SUPERVISOR MACHINE WORKERS [facility] Mucus Present 09/26/2023 3:35 PM SUPERVISOR MACHINE WORKERS [facility] HYALINE CASTS 0-2 0-2, 3-5 /LPF 09/26/2023 3:35 PM SUPERVISOR MACHINE WORKERS [facility] Urine URINE SPECIMEN / Unknown Non-Blood / Unknown 09/26/2023 3:25 PM SUPERVISOR MACHINE WORKERS 09/26/2023 3:25 PM SUPERVISOR MACHINE WORKERS Narrative [facility] - 09/26/2023 3:35 PM SUPERVISOR MACHINE WORKERS <1.5 ml. ??QNS for accurate microscopic exam. ??Microscopic done on unspun urine. Eloise Reeves DO URINE [facility] [address] [place] [address], [place] [phone] * (ABNORMAL) UA W/ SEDIMENT EXAM REFLEXED PER CRITERIA (09/26/2023 3:25 PM SUPERVISOR [employer]ACH[employer] WORK[employer]) COLOR Yellow Yellow Color 09/26/2023 3:33 PM SUPERVISOR MACHINE WORKERS [facility] CLARITY Clear Clear Clarity 09/26/2023 3:33 PM [facility] SPECIFIC GRAVITY,URINE >=1.030(A) 1.010, 1.015, 1.020, 1.025 09/26/2023 3:33 PM SUPERVISOR MACHINE WORKERS [facility] PH,URINE 5.5 6.0, 7.0, 8.0, 5.5, 6.5, 7.5, 8.5 09/26/2023 3:33 PM SUPERVISOR MACHINE WORKERS [facility] UROBILINOGEN,QU ALITATIVE Normal Normal EU/dl 09/26/2023 3:33 PM SUPERVISOR MACHINE WORKERS [facility] PROTEIN, URINE 30(A) Negative mg/dL 09/26/2023 3:33 PM SUPERVISOR MACHINE WORKERS [facility] GLUCOSE, URINE Negative Negative mg/dL 09/26/2023 3:33 PM SUPERVISOR MACHINE WORKERS [facility] KETONES,URINE 15(A) Negative mg/dL 09/26/2023 3:33 PM SUPERVISOR MACHINE WORKERS [facility] BILIRUBIN,URINE Abnormal(A) Negative 09/26/20 3:33 PM SUPERVISOR MACHINE WORKERS [facility] Comment:A variety of metabol ites and/or medications may result in a positive bilirubin result. Clinical correlation is recommended. OCCULT BLOOD,URINE Negative Negative 09/26/2023 3:33 PM SUPERVISOR MACHINE WORKERS [facility] NITRITE Negative Negative 09/26/2023 3:33 PM SUPERVISOR MACHINE WORKERS [facility] LEUKOCYTE ESTERASE Negative Negative 09/26/2023 3:33 PM SUPERVISOR MACHINE WORKERS [facility] Urine URINE SPECIMEN / Unknown Non-Blood / Unknown 09/26/2023 3:25 PM SUPERVIS[employer]ACH[employer] WORKERS 09/26/2023 3:25 PM SUPERVISOR MACHINE WORKERS Eloise Reeves DO URINE [facility] [address] [place] [address], * (ABNORMAL) HEMOGLOBIN (09/26/2023 2:55 PM SUPERVISOR MACHINE WORKERS) HEMOGLOBIN 10.9(L) 12.0 - 16.0 g/dL 09/26/2023 3:04 PM SUPERVISOR MACHINE WORKERS [facility] MCV 82 80 - 100 fL 09/26/2023 3:04 PM SUPERVISOR MACHINE WORKERS [facility] Blood BLOOD SPECIMEN / Unknown Venipuncture / Unknown 09/26/2023 2:55 PM SUPERVIS[employer]ACH[employer] WORKERS 09/26/2023 2:56 PM SUPERVISOR MACHINE WORKERS Eloise Reeves DO HEMATOLOGY [facility] [address] [place] [address], [place] [phone] * (ABNORMAL) BASIC METABOLIC PANEL (09/26/2023 2:55 PM SUPERVISOR MACHINE WORKERS) SODIUM 140 136 - 145 mmol/L 09/26/2023 10:22 PM SUPERVISOR MACHINE WORKERS [facility] POTASSIUM 3.3(L) 3.5 - 5.1 mmol/L 09/26/2023 10:22 PM SUPERVISOR MACHINE WORKERS [facility] CHLORIDE 101 98 - 107 mmol/L 09/26/2023 10:22 PM [email or web address] CO2,TOTAL 26 22 - 29 mmol/L 09/26/2023 10:22 PM [email or web address] ANION GAP 13 5 - 18 09/26/2023 10:22 PM [email or web address] GLUCOSE 112(H) 70 - 99 mg/dL 09/26/2023 10:22 PM [email or web address] CALCIUM 9.7 8.8 - 10.2 mg/dL 09/26/2023 10:22 PM [email or web address] BUN 17 8 - 23 mg/dL 09/26/2023 10:22 PM [facility] CREATININE 1.08(H) 0.50 - 0.90 mg/dL 09/26/2023 10:22 PM [email or web address] BUN/CREAT RATIO 16 10 - 20 10:22 PM [email or web address] eGFR 52(L) >90 mL/min/1.7 3m2 09/26/2023 10:22 PM [email or web address] Comment:As of 2022, eG FR is calculated by the CKD-EPI creatinine equation without race adjustment. ??eGFR can be influenced by muscle mass, exercise, and diet. ??The reported eGFR is an estimation only and is only applicable if the renal function is stable. Blood BLOOD SPECIMEN / Unknown Venipuncture / Unknown 09/26/2023 2:55 PM SU[employer]ACH[employer] WORK[employer] 09/26/2023 2:56 PM SUPER[employer]ACH[employer] WORK[employer] Eloise Reeves DO CHEMISTRY [facility] [address] [place] [address], from Last 3 Months Advance Directives Documents on File Type Date Recorded Patient Emt Basic Expl anation Healthcare Directive 11/23/2023 024 Care Teams Hospital Manager Relationship Specialty Start Date End Date Eloise Reeves DO [address] [place] [address] PCP - General Family Practice 05/13/20
--- OUTSIDE RECORDS SUMMARY | 2023-12-15 20:15 | XMS_ITS | Encounter Summary ---
Author Name Unknown Organization [facility] Address [address] [place] [address] Phone Care Team Providers Care Pattern Mechanic Name Role Phone Eloise Reeves DO Primary [...] Coronavirus/COVID-19? No / Unsure 11/04/2023 10:48 PM RAIL LOADER documented as of this encounter Plan of Treatment Not on file documented as of this encounter Procedures Procedure Name Priority Date/Time Associated Diagnosis Comments TELEMETRY STRIPS 11/09/2023 1:21 AM RAIL LOADER documented in this encounter Results * TELEMETRY STRIPS (11/09/2023 1:21 AM RAIL LOADER) Narrative 11/09/2023 1:21 AM RAIL LOADER Ordered by an unspecified provider. Provider Unknown RAD ECHO documented in this encounter Visit Diagnoses Not on filedocumented in this encounter Care Teams Pattern Mechanic Relationship Specialty Start Date End Date Eloise Reeves DO [address] [place] [address] PCP - General Family Medicine 11/06/23 documented as of this encounter
--- OUTSIDE RECORDS SUMMARY | 2023-12-15 20:15 | XMS_ITS | Encounter Summary ---
Author Name Unknown Organization [facility] Address [address] [place] [id number] Phone Care Team Providers Care Blowing Weasand Name Role Phone Eloise Reeves DO Primary [...] Coronavirus/COVID-19? No / Unsure 11/04/2023 10:48 PM CLICKING MACHINE OPERATOR documented as of this encounter Plan of Treatment Not on file documented as of this encounter Procedures Procedure Name Priority Date/Time Associated Diagnosis Comments TELEMETRY STRIPS 11/07/2023 7:31 PM CLICKING MACHINE OPERATOR documented in this encounter Results * TELEMETRY STRIPS (11/07/2023 7:31 PM CLICKING MACHINE OPERATOR) Narrative 11/07/2023 7:31 PM CLICKING MACHINE OPERATOR Ordered by an unspecified provider. Provider Unknown RAD ECHO documented in this encounter Visit Diagnoses Not on filedocumented in this encounter Care Teams Blowing Weasand Relationship Specialty Start Date End Date Eloise Reeves DO [address] [place] [address] PCP - General Family Medicine 11/06/23 documented as of this encounter
--- OUTSIDE RECORDS SUMMARY | 2023-12-15 20:15 | XMS_ITS | Encounter Summary ---
Author Name Unknown Organization [facility] Address [address] [place] [address] Phone Care Team Providers Care Dye House Vat Worker Name Role Phone Eloise Reeves DO [...] Coronavirus/COVID-19? No / Unsure 11/04/2023 10:48 PM CHOPPED STRAND OPERATOR documented as of this encounter Plan of Treatment Not on file documented as of this encounter Procedures Procedure Name Priority Date/Time Associated Diagnosis Comments TELEMETRY STRIPS 11/07/2023 9:29 AM CHOPPED STRAND OPERATOR documented in this encounter Results * TELEMETRY STRIPS (11/07/2023 9:29 AM CHOPPED STRAND OPERATOR) Narrative 11/07/2023 9:29 AM CHOPPED STRAND OPERATOR Ordered by an unspecified provider. Provider Unknown RAD ECHO documented in this encounter Visit Diagnoses Not on filedocumented in this encounter Care Teams D[employer] Vat Worker Relationship Specialty Start Date End Date Eloise Reeves [place] [address] [place] [address] PCP - General Family Medicine 11/06/23 documented as of this encounter
--- OUTSIDE RECORDS SUMMARY | 2023-12-15 20:15 | XMS_ITS | Encounter Summary ---
Author Name Unknown Organization [facility] Address [address] [place] [address] Phone Care Team Providers Care Plumbing Instructor Name Role Phone Eloise Reeves DO Primary Care Provider [phone] Reason for Referral * Consult/Test/Treat (Routine) - Closed Specialty Diagnoses / Procedures Referred By Selma bhandari Referred To Contact Physical Medicine and Rehab / PHYSICAL MEDICINE AND REHAB Diagnoses Fall, initial encounter SDH (subdural hematoma) ([facility]) SAH (subarachnoid hemorrhage) ([facility]) Traumatic brain injury with loss of consciousness, initial encounter ([facility]) Jesusita Aiken APRN, ELECTRIC ENGINE MECHANIC [address] [place] [address] [facility] Pm&R Cl [address] [address] Referral ID Status Reason Start Date Expiration Date Visits Re quested Visits Authorized [id number] Closed 11/08/2023 11/07/2024 1 1 NESS CONTROL MANAGER Reason for Visit * Reason Comments Fall * Auth/Cert (Routine) Specialty Diagnoses / Procedures Referred By Contjerrod t Referred To Contact SURGERY Diagnoses SDH (subdural hematoma) ([facility]) Fall, initial encounter Tariq Bobo MD [address] [facility] [id number] [address] [place] [address] [address] [place] [address] Referral ID Status Reason Start Date Expiration Date Visits Re quested Visits Authorized [id number] 1 1 Encounter Details Date Type Department Care Team (Latest Contact Info) Description 11/04/2023 10:39 PM BUSINESS CONTROL MANAGER - 11/16/2023 9:19 AM BUSINESS CONTROL MANAGER Hospital Encounter [facility] Surgery/Trauma/Kimmie ro 2 [address] [place], [place] [id number] Devin Dougherty MD [address] [facility] [place] [address] Quinn Covarrubias MD [address] [place] [address] Gregg Dexter MD [address] [facility] [address] [place] [address] Fall, initial encounter Discharge Disposition: [...] No / Unsure 11/04/2023 10:48 PM BUSINESS CONTROL MANAGER documented as of this encounter Last Filed Vital Signs Vital Sign Reading Time Taken Comments Blood Pressure 148/51 11/16/2023 4:25 AM BUSINESS CONTROL MANAGER Pulse 61 11/16/2023 4:25 AM BUSINESS CONTROL MANAGER Temperature 36.6 ??C (97.8 ??F) 11/16/2023 4:25 AM CS T Respiratory Rate 16 11/16/2023 4:25 AM BUSINESS CONTROL MANAGER Oxygen Saturation 90% 11/16/2023 4:25 AM BUSINESS CONTROL MANAGER Inhaled Oxygen Concentration - - Weight 69.7 kg (153 lb 10.6 oz) 024 12:03 AM BUSINESS CONTROL MANAGER Height 147.3 cm (4' 10) 11/05/2023 12: 03 AM BUSINESS CONTROL MANAGER Body Mass Index 32.12 11/05/2023 12:03 AM BUSINESS CONTROL MANAGER documented in this encounter Discharge Summaries * [...] determined to be a good fir for [facility] inpatient acute rehab but after 1-2 weeks of therapy she wouldstill need 24/ observation. Due to her insurance it does not pay for a tcu after [place] [facility]. The family chose to discharge to [...] pale. Neurological: Mental Status: She is alert. Shoe Patternmaker Needed: no PLANNED DISCHARGE ORDERS: Suture/Miguel: None [...] 4:30PM, M-F): Call the Surgery Clinic at [phone] After hours or on Holidays: Call the [facility] tiger machine operator . Ask the tiger machine operator to page the general surgery resident bronc breaker. IF: -- you feel you are getting [...] getting larger: a pupil is the dark [place] in the center of the eye - [...] it is often helpful to return to [facility] to be evaluated. If you live far away or are in extreme distress (i.e cannot breathor won't wake up), call 911 and first responders can decide which hospital is best. If you have any questions about your or your loved one's condition after discharge, call [phone] to speak with a nurse. Please contact [...] -- Read all labels for prescription and Mthj-yfz-zfkrbni medicines. Ask the pharmacist if your prescription [...] Gregg Dexter MD, 11/16/2023 8:18 AM NESS CONTROL MANAGER documented in this encounter Discharge Instructions * Discharge Instr - Speech Language Pathology* Nayeli Alvarado SLP [facility] - 11/15/2023 4:39 PM BUSINESS CONTROL MANAGER Speech-language pathologists (induction furnace operator) assess and treat speech, language, cognition [...] your primary Speech-Language Pathologist directly or call [phone]. NESS CONTROL MANAGER documented in this encounter Medications at Time [...] equipment/supplies recommended: none Final discharge destination: Subacute longterm with rehab care R: The patient and family understood the AVS. P: Support patient and family if they call back with questions. Cornell Solomon RN, 11/16/2023 9:19 AM NESS CONTROL MANAGER * Carolina Awan RN - 11/16/2023 2:30 AM CST Entered chart to leave staff to staff regarding pt's d/c ride in the AM Carolina Awan RN, 11/16/2023 2:30 AM NESS CONTROL MANAGER * Sinai Brady PA-C - 11/15/2023 3:50 [...] II, and HLD, who was admitted to [facility] 11/04/2023 after being found unconscious at the [...] address self care, ADL's, adaptive equipment Continue SOFTWARE ASSET MANAGER to address speech, swallow, communication, cognition Regarding [...] of this note have been dictated using HealthLok dictation software. Please excuse any registered respiratory therapist errors and feel free to contact me regarding such errors or confusion regarding intended message. Sinai Brady PA-C, CBIS Pager via InnerWorkings NESS CONTROL MANAGER * Nayeli Alvarado, SOFTWARE ASSET MANAGER [facility] - 11/15/2023 2:49 PM CST Speech-Language Pathology Progress Note 11/15/2023 SOFTWARE ASSET MANAGER Recommendations Discharge Recommendations (SOFTWARE ASSET MANAGER): Post-acute placement recommended. Acute Rehab if meets admission criteria No known barriers to placement Barriers to Discharge (SOFTWARE ASSET MANAGER): NA - Post acute placement is recommended and no barriers to placement known. Post Discharge follow-up (SOFTWARE ASSET MANAGER): SOFTWARE ASSET MANAGER at post-acute placement Recommend PM&R Consult (SOFTWARE ASSET MANAGER): Yes, for assessment of post-acute placement needs. Pt appears to be a candidate for higher intensity rehab services. Diet Recommendation: Current Diet : Regular Current Liquid: Thin liquids Medication Administration: Medications with thin liquid Aspiration Precautions: Upright with all eating and drinking Oral Hygiene: Lupton teeth 2x/day Positioning Techniques: Seat fully upright [...] Cognitive communication deficit R41.841, Treatment Type:Cognitive-linguistic Treatment (02946, 10190) Treatment Frequency: 2-3x per week CLINICAL IMPRESSIONS Patient presents with severe cognitive-linguistic deficits in areas of attention, working, short-term, and long-term memory, problem solving, reasoning, processing speed, and executive functioning secondary to SDH of the R>L tentorial leaflets and R cerebral convexity, scattered SAH, L periventri cular hemorrhage, and a small L frontal IPH. Ongoing tx is warranted. Speech-Language Pathologist: Nayeli Alvarado SLP [facility], 11/15/2023 2:49 PM Pager: TelBrickTrends[employer] NESS CONTROL MANAGER * Randy Barragan - 11/15/2023 10:27 AM CST Transportation set for patient as follows: Date and time () of patient departure: 11/16/2023 @0900 Destination: [facility] [place] [address] Type of ride: wheelchair Reference #[id number] Transportation vendor of ride: [employer] [phone] * If this ride needs to be [...] Clinical Coordinators will be informed via a TelBrickTrendsq page. PCS form was completed in Progress Notes and is ready to be signed and routed to vendor by requestor(for stretcher rides only). Randy Barragan, 11/15/2023 2:49 PM Patient name: Lucinda Kennedy Date of : 1940 Patient Admitting diagnosis: Patient Active Problem List Diagnosis Fall, initial encounter Attending provider: Quinn Covarrubias MD Insurance: [facility] Secondary insurance: N/A Height: Height: 147.3 cm (4' 10) Weight: Weight: 69.7 kg (153 lb 10.6 oz) NESS CONTROL MANAGER * Fide Reis - 11/15/2023 10:23 AM CST Preadmission Screening Submitter InformationPerson Being ReferredMedical InformationADL'[facility] FacilitySubmitResults Results Thank you for submitting a referral [...] help, contact the Senior LinkAge Line at [phone] or click to contact us. Print this page You have successfully submitted the preadmission screening (PAS) to the Senior LinkAge Line on: Created On 11/15/2023 10:08 AM Your confirmation number is: [id number] Results Level of Care: Based on the information you provided, it appears this person meets level of care for purposes of [place] payment. OBRA: It appears this person does not need an OBRA Level II assessment. Submitter Information Form Type PAS Submitter First and Last Name Fide Reis Direct Email Agency [facility] Service Type Hospital [address] [facility] Zip Code [address] Is your Agency outside [place]? Person Being Admitted to Nursing Facility Legal first name Lucinda Last name Kennedy Date of 1940 Age 83 Gender Female Marital Status M= living with spouse Race White - W Ethnicity / Currently living with: 02 Living with spouse/parent Planned living with 02 Living with spouse/parent Housing Type Home or apartment, including assisted living () Mailing Address [address] [place] [address] Zip Code [address] [facility] Medical Information Reason for nursing [...] facility the person will admit to?Yes Provider [facility] Nursing Facility Service Type Penitentiary [address] If your provider is not listed [...] Phone Fax Patient Preferred Theresa Yusuf Sushil [facility] Selected Jail [address] [facility] [address] [phone] -- Internal Comment last updated by Bill Olivera 11/15/[address] [place] [address] offered us bed today. Working on setting up a ride. Team informed. Bill Olivera, 11/15/2023 10:01 AM Spoke with [place]. Will discuss further with her team. May likely admit tomorrow. May need prior auth. Bill Olivera, 11/15/2023 9:26 AM [facility] Considering Need clinical review N/A [address] [facility] [address] [phone] Internal Comment last updated by Fide Reis 11/14/2023 0926 Shared female .. bed .Fide Reis, 11/14/2023 9:25 AM [facility] Pending - Request Sent N/A [address] [facility] [address] Internal Comment last updated by Fide Reis 11/14/2023 0918 LVM for admissions .Fide Reis, 11/14/2023 9:18 AM [facility] Pending - Request Sent N/A [address] [facility] [phone] -- Internal Comment last updated by Fide Reis 11/14/2023 0920 LVM for Renata in admissions Rere Reissushil Johansen, 11/14/2023 9:20 AM [facility] Pending - Request Sent N/A [address] [address] [phone] Internal Comment last updated by Fide Reis 11/14/2023 0921 LVM for admissions .Savanna Reisgee Johansen, 11/14/2023 9:21 AM [facility] Pending - Request Sent N/A 8[address] [facility] [address] [phone] -- [facility] Pending - Request Sent N/A [address] [address] [phone] -- [facility] Pending - Request Sent N/A 9889 [facility] [address] [phone] -- [facility] Pending - Request Sent N/A 9200 [facility] [address] -- [facility] Pending - Request Sent N/A 213 [facility] [address] [phone] -- [facility] Pending - Request Sent N/A [address] [address] [phone] -- [facility] Declined Not a TCU N/A 900 [facility] [address] [phone] Internal Comment last updated by Marycarmen Caldwell 11/09/2023 1033 Not a TCU per the [phone] phone number connected to the same address. Marycarmen Caldwell,11/09/2023 10:33 AM [facility] Declined Closed N/A 2000 [facility] [address] [phone] Internal Comment last updated by Fide Reis 11/08/2023 1359 Has been closed for 1 year . Fide Reis, 11/08/2023 1:59 PM [facility] Declined No Contract with Patient's Insurance Carrier N/A 815 [facility] [id number] Internal Comment last updated by Bill Olivera 11/15/2023 0840 Family doesn't want it here. Bill Olivera, 11/15/2023 8:40 AM [facility] B3.320 Declined TCU N/A [address] [facility] [place] [phone] -- Internal Comment last updated by Bill Olivera 11/09/2023 0829 PM&R continues to follow. If DC imminent, recommending TCU instead. Bill Olivera, 11/09/2023 8:29 AM Pending PMnR recs. Bill Olivera, 11/06/2023 11:04 AM [facility] Declined Facility Cannot Provide for Patient's needs N/A [address] [place] [address] [phone] -- [facility] Declined Closed N/A [address] [place] [address] [phone] -- Internal Comment last updated by Marycarmen Caldwell 11/09/2023 1034 Permanently closed [facility] Declined Family choice N/A [address] [facility] [address] [phone] -- Internal Comment last updated by Fide Reis 11/14/2023 0916 LVM for admissions. Fide Reis, 11/14/2023 9:16 AM [facility] Declined Family choice N/A 27 [facility] [address] [phone] -- [facility] Declined Family choice N/A [address] [facility] [address] [phone] -- [facility] Declined Bed not available N/A [address] [facility] [address] [phone] -- Home Medical Care Coordination has not been started for this encounter. NESS CONTROL MANAGER * Gregg Dexter MD - 11/15/2023 7:20 [...] SQ BID GI prophylaxis: None Endocrine: restart popcorn candy maker Metformin today Antibiotics: none Pain control: Tylenol [...] 11/15/2023 09:51 PGY-5 General Surgery Resident Pager: [phone] or via Sunrise FACULTY NOTE I saw and evaluated the patient on the date of the resident's note. I discussed with the resident and agree with the resident???s findings and plan documented in the resident???s note from above. Anyrevisions by me are documented. Gregg Dexter MD, 11/15/2023 3:39 PM NESS CONTROL MANAGER * Gregg Dexter MD - 11/14/2023 11:58 [...] Have not been able to speak with Zian(her daughter) yet, per patents zain is aware [...] Gregg Dexter MD, 11/15/2023 3:38 PM NESS CONTROL MANAGER * Sharri Price, OTR/L - 11/14/2023 11:00 [...] Functional activity: 8 minutes RAFAEL Medellin/Kelton Pager: [facility] OT Department NESS CONTROL MANAGER * Carola Spence, CAT SCANNER OPERATOR - 11/14/2023 10:00 AM CST Images from [...] in [place].. Well if we are in [place] I told Wan to go to the [...] Quality (General): Shuffling;Unsteady Stairs Assistive Devices Used: (PARK INTERPRETIVE RANGER) Sitting Static Balance Level of Assistance: Upper [...] SLS) Vertical/horizontal head turns - slows requires PARK INTERPRETIVE RANGER Amb slow/fast : no significant change achieved Education : TCU vs Acute rehab and amount of assist patient will require upon dc home which is likely general supervision Interdisciplinary Communication PA/STUD DAIRY CATTLE FARMER: discussed patient Box Machine Operator: daughter wishing to discuss POA Family: present [...] transfer bed to/from chair with (6) Modified Lanier with sliding board or pivot method. By 11-17-2023 Outcome: In progress Goal: Patient will transfer sit to/from stand Description: Patient will transfer sit to/from stand with (6) Modified [place]ier By 11-17-2023. Outcome: In progress Problem: Decreased Ambulatory Skills Goal: Improve gait Description: Ambulate 100 meters using Front - wheeled walker with (6) Modified [place]ier By 11-17-2023. Outcome: In progress Goal: Improve gait on stairs Description: Ascend/descend 7 +7 stairs using Cane with (6) Modified [place]ier .By 11-17-2023 Outcome: In progress Problem: Decreased [...] least AD, stairs for home usage daily. CAT SCANNER OPERATOR Appropriate: Yes Carola Spence PTA 11/14/2023 Pager: [facility] PT Dept NESS CONTROL MANAGER * Sinai Brady PA-C - 11/14/2023 9:48 [...] II, and HLD, who was admitted to [facility] 11/04/2023 after being found unconscious at the [...] address self care, ADL's, adaptive equipment Continue SOFTWARE ASSET MANAGER to address speech, swallow, communication, cognition Regarding [...] of this note have been dictated using HealthLok dictation software. Please excuse any registered respiratory therapist errors and feel free to contact me regarding such errors or confusion regarding intended message. Sinai Brady PA-C, CBIS Pager via InnerWorkings Total time spent on this encounter, on the date of service including pre-visit review of separatelyobtained history, klbc-[id number] interaction performing medically appropriate physical exam, patient counseling/education, interpretation of diagnostic results, care coordination and documentation was 50 minutes. NESS CONTROL MANAGER * Sharri Price OTR/Kelton - 11/13/2023 4:49 [...] dressing task at Min A including donning chemical sprayer socks and shorts at EOB. Patient completing light g/h tasks while seated in chair bedside with s/u. 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 Acute Rehab if meets admission criteria No known barriers to placement Barriers to Discharge (SOFTWARE ASSET MANAGER): NA - Post acute placement is recommended and no barriers to placement known. Post Discharge follow-up (SOFTWARE ASSET MANAGER): SOFTWARE ASSET MANAGER at post-acute placement Recommend PM&R Consult (SOFTWARE ASSET MANAGER): Yes, for assessment of post-acute placement needs. Pt appears to be a candidate for higher intensity rehab services. Diet Recommendation: Current Diet : Regular Current Liquid: Thin liquids Medication Administration: Medications with thin liquid Aspiration Precautions: Upright with all eating and drinking Oral Hygiene: Lupton teeth 2x/day Positioning Techniques: Seat fully upright [...] Cognitive communication deficit R41.841, Treatment Type:Cognitive-linguistic Treatment (53669, 09144) Treatment Frequency: 2-3x per week CLINICAL IMPRESSIONS Severe cognitive-linguistic deficits within attention, memory, problem solving, reasoning, and executive functioning. Ongoing cognitive-linguistic dx/tx is needed. Speech-Language Pathologist: Sera Fleming SLP [facility], 11/13/2023 1:14 PM Pager: Telmediq NESS CONTROL MANAGER * Jesusita Aiken APRN, ELECTRIC ENGINE MECHANIC - 11/13/2023 8:21 AM CST SURGERY TRAUMA [...] Aiken APRN, EMILY, 11/13/2023 11:17 AM NESS CONTROL MANAGER * Carola Spence PTA - 11/12/2023 10:30 [...] (Numeric): 0 (reports she has no pain) O:Shoe Patternmaker Used: None needed Mental Status Mental Status: [...] Shuffling;Unsteady -with nonuse of gait and vs PARK INTERPRETIVE RANGER - patient exhibits significantly shortened step length Stairs Number of Steps: 5 Stair Rails: Right rail Stairs : Minimal assist Stairs Method: Ascend step-to pattern;Descend reciprocal pattern (max verbal cues for sequencing) Assistive Devices Used: (PARK INTERPRETIVE RANGER) -catches foot on each step Sitting Static [...] transfer bed to/from chair with (6) Modified Lanier with sliding board or pivot method. By 11-17-2023 Outcome: In progress Goal: Patient will transfer sit to/from stand Description: Patient will transfer sit to/from stand with (6) Modified Lanier By 11-17-2023. Outcome: In progress Problem: Decreased Ambulatory Skills Goal: Improve gait Description: Ambulate 100 meters using Front - wheeled walker with (6) Modified Lanier By 11-17-2023. Outcome: In progress Goal: Improve gait on stairs Description: Ascend/descend 7 +7 stairs using Cane with (6) Modified [place] .By 11-17-2023 Outcome: In progress Problem: Decreased [...] least AD, stairs for home usage daily. CAT SCANNER OPERATOR Appropriate: Yes Carola Spence PTA 11/12/2023 Pager: [facility] PT Dept NESS CONTROL MANAGER * Gregg Dexter MD - 11/12/2023 7:59 [...] Gregg Dexter MD, 11/12/2023 7:19 PM NESS CONTROL MANAGER * Amelia Lobo MD - 11/11/2023 7:53 [...] 11/11/2023 07:56 PGY-5 General Surgery Resident Pager: [phone] or via Telmediq NESS CONTROL MANAGER Associated attestation - Mariama Catherine DO - 11/12/2023 2:39 PM BUSINESS CONTROL MANAGER FACULTY NOTE I saw and evaluated the [...] the Primary Treatment Team, click here. NESS CONTROL MANAGER Associated attestation - Mariama Catherine DO - 11/12/2023 2:39 PM BUSINESS CONTROL MANAGER FACULTY NOTE I saw and evaluated the patient on the date of the resident's note. I discussed with the resident and agree with the resident???s findings and plan documented in the resident???s note from above. Anyrevisions by me are documented. Mariama Catherine DO, 11/12/2023 2:39 PM * Olivia Johnson RN - 11/09/2023 11:34 PM CST Shift [id number] Pt A&O to self and family member, pt pleasantly confused, spouse at bedside, pt VSS, on 2L to 4L via facemask to maintain oxygen above 90%. Pt denies bonita, pt up with AX1 with GB and walker, call light within reach, bed alarm on. NESS CONTROL MANAGER * Carola Spence PTA - 11/09/2023 3:35 [...] patient adamantly denies having pain this PM O:Shoe Patternmaker Used: None needed Mental Status Mental Status: [...] With approach Clarissa is in bed - ghost writer notes significant improvement in alertness and participation in therapy this PM. She is pleasantly confused and often reports we are in [place], [place] - writerredirects that she is at the hospital in [place], [place]. Exhibits significant improvement with ambthis PM [...] transfer bed to/from chair with (6) Modified Lanier with sliding board or pivot method. By 11-17-2023 Outcome: In progress Goal: Patient will transfer sit to/from stand Description: Patient will transfer sit to/from stand with (6) Modified Lanier By 11-17-2023. Outcome: In progress Problem: Decreased Ambulatory Skills Goal: Improve gait Description: Ambulate 100 meters using Front - wheeled walker with (6) Modified Lanier By 11-17-2023. Outcome: In progress Goal: Improve gait on stairs Description: Ascend/descend 7 +7 stairs using Cane with (6) Modified [place] .By 11-17-2023 Outcome: In progress Problem: Decreased [...] least AD, stairs for home usage daily. CAT SCANNER OPERATOR Appropriate: Yes Carola Spence PTA 11/09/2023 Pager: Tel[facility] PT Dept NESS CONTROL MANAGER * Juhi Dent, PharmD - 11/09/2023 2:58 [...] Juhi Dent, WalterD 11/09/2023 14:58 Tel[employer] NESS CONTROL MANAGER * Sera Fleming SLP CCC - 11/09/2023 11:20 AM CST Speech Language Pathology: Attempted to see patient this am x2. Pt sleeping soundly and not waking sufficiently for tx. Will re-attempt to see patient today as schedule permits. Sera Fleming SLP CCC, 11/09/2023 11:20 AM NESS CONTROL MANAGER * Jesusita Aiken, CONFIGURATION MANAGEMENT MANAGER, ELECTRIC ENGINE MECHANIC - 11/09/2023 7:31 AM CST SURGERY TRAUMA PROGRESS NOTE -STUD DAIRY CATTLE FARMER Lucinda Kennedy : 1940 Sex: female ASSESSMENT: [...] Resident and Staff Physician. Jesusita Aiken APRN, ELECTRIC ENGINE MECHANIC, 11/09/2023 7:32 AM Discharge Milestones Documentation Discharge Milestones completed daily by the documenting provider on the Primary Treatment Team, click here. NESS CONTROL MANAGER * Carola Spence, CAT SCANNER OPERATOR - 11/08/2023 2:30 PM CST Physical Therapy [...] perform) Heel/Toe Raises: 10 reps Interdisciplinary Communication PA/STUD DAIRY CATTLE FARMER: updated PM&R PA following session RN: ok [...] bed and her eyes are closed. When ghost writer states her voice she responds right away but her eyes do not open. Side Laster cues patient to move supine > seated [...] transfer bed to/from chair with (6) Modified [place] with sliding board or pivot method. By 11-17-2023 Outcome: In progress Goal: Patient will transfer sit to/from stand Description: Patient will transfer sit to/from stand with (6) Modified [place] By 11-17-2023. Outcome: In progress Problem: Decreased Ambulatory Skills Goal: Improve gait Description: Ambulate 100 meters using Front - wheeled walker with (6) Modified [place] By 11-17-2023. Outcome: In progress Goal: Improve gait on stairs Description: Ascend/descend 7 +7 stairs using Cane with (6) Modified [place] .By 11-17-2023 Outcome: In progress Problem: Decreased [...] least AD, stairs for home usage daily. CAT SCANNER OPERATOR Appropriate: Yes Carola Spence PTA 11/08/2023 Pager: [facility] NESS CONTROL MANAGER * Bill Olivera - 11/08/2023 12:37 PM CSTSummary: DC Planning DC Planning Patient is near medical readiness to DC to next level of care. It is not yet clear if she will be aKnapp candidate yet. Side Laster spoke with patient's daughter over the phone. Also, had spoken with patient's father earlierin the week. We will start looking for TCUs around [place]. Also, she will do further research and call me back with more options. CC explained that we can't guarantee placement in their preferred place, this is up to facility, insurance coverage and bed availability. Also, Medicare patients will not be able to stay in the hospital indefinitely while we look for their preferred TCU. NESS CONTROL MANAGER * Victor M Enrique MD - 11/08/2023 12:00 PM CST Images from the original note were not included. SURGERY TRAUMA PROGRESS NOTE -PGY 1 Lucinda Romo Kennedy : 1940 Sex: female ASSESSMENT: 83 y.o. yo female with SDH R cerebral convexity and falx, scattered SAH and periventricular hemorrhage . The following services have been consulted PM&R, SOFTWARE ASSET MANAGER. Night Events: Nurse reported weakness of right leg overnight during neuro checks, upon examination by overnight resident determined decreased rom 2/2 to right ankle pain. -Pt required 3 prn doses of labetalol overnight to maintain goal of sbp<160 Day Events: -Patient cleared by SOFTWARE ASSET MANAGER and has resumed regular diet -Restarted prior oral bp regimen -CXR not concerning for pneumonia -Procal WNL -Started Naproxen BID and CAT SCANNER OPERATOR allopurinol for suspected gout flare PLAN: Diet: [...] M Enrique MD, 11/09/2023 8:29 AM NESS CONTROL MANAGER * Sinai Brady PA-C - 11/08/2023 11:33 AM CST Physical Medicine & Rehabilitation Follow-Up Lucinda Kennedy : 1940 Sex: female Patient lethargic, rouses briefly to acknowledge ghost writer before returning to sleep. Unable to [...] II, and HLD, who was admitted to [facility] 11/04/2023 after being found unconscious at the [...] address self care, ADL's, adaptive equipment Continue SOFTWARE ASSET MANAGER to address speech, swallow, communication, cognition Regarding [...] of this note have been dictated using [employer] dictation software. Please excuse any registered respiratory therapist errors and feel free to contact me regarding such errors or confusion regarding intended message. Sinai Brady PA-C Pager via [employer] NESS CONTROL MANAGER * Ruby Franklin, OTR/L - 11/08/2023 10:10 AM CST OT NOTE: Attempted OT session but pt was too lethargic to meaningful participate, falling asleep quickly andmumbling responses to questions. Will try to return later this PM as schedule allows (tomorrow willschedule session in the PM as RN reports she is usually more alert after 2:00pm). Aubree Franklin, OTR / L 11/08/2023 NESS CONTROL MANAGER * Sera Fleming, [facility] - 11/08/2023 9:26 AM CST Speech-Language Pathology Progress Note 11/08/2023 SOFTWARE ASSET MANAGER Recommendations Discharge Recommendations (SOFTWARE ASSET MANAGER): Post-acute placement recommended. Acute Rehab if meets admission criteria No known barriers to placement Barriers to Discharge (SOFTWARE ASSET MANAGER): NA - Post acute placement is recommended and no barriers to placement known. Post Discharge follow-up (SOFTWARE ASSET MANAGER): SOFTWARE ASSET MANAGER at post-acute placement Recommend PM&R Consult (SOFTWARE ASSET MANAGER): Yes, for assessment of post-acute placement needs. Pt appears to be a candidate for higher intensity rehab services. 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 Cognitive-linguistic assessment not completed. Once pt clears, suspect she will have very good participation as she participates well when more alert. Speech-Language Pathologist: Sera Fleming SLP [facility], 11/08/2023 9:26 AM Pager: [employer] NESS CONTROL MANAGER * Sinai Brady PA-C - 11/07/2023 3:57 PM CST Physical Medicine & Rehabilitation Follow-Up Lucinda Ryans : 1940 Sex: female Patient lethargic, rouses briefly and acknowledges ghost writer, answers a few questions but unclear [...] II, and HLD, who was admitted to [facility] 11/04/2023 after being found unconscious at the [...] address self care, ADL's, adaptive equipment Continue SOFTWARE ASSET MANAGER to address speech, swallow, communication, cognition Regarding [...] of this note have been dictated using [employer] dictation software. Please excuse any registered respiratory therapist errors and feel free to contact me regarding such errors or confusion regarding intended message. Sinai Brady PA-C Pager via [employer] Total time spent on this encounter, on the date of service including pre-visit review of separatelyobtained history, fvlu-ca-kjev interaction performing medically appropriate physical exam, patient counseling/education, interpretation of diagnostic results, care coordination and documentation was 35 minutes. NESS CONTROL MANAGER * aJzmine Thompson V - 11/07/2023 3:09 PM CST CULTURAL ASSESSMENT: SUMMARY: This ghost writer saw pt. At 12:26 PM on 11/07/2023. Side Laster introduced herself to pt.'s , and discussed with him on ghost writer's role. Side Laster asked pt.'s if he had any questions, comments, or concerns regarding pt.'s care. Pt.'s mentioned that he doesn't really know anything, so he will wait and see if later he would need assistance from ghost writer. Side Laster gave her contact information for any future questions, comments, or concerns. Jazmine Thompson V, 11/07/2023 3:27 PM NESS CONTROL MANAGER * Sera Fleming SLP [facility] - 11/07/2023 2:41 PM CST Speech-Language Pathology Progress Note 11/07/2023 SOFTWARE ASSET MANAGER Recommendations Discharge Recommendations (SOFTWARE ASSET MANAGER): Post-acute placement recommended. Acute Rehab if meets admission criteria No known barriers to placement Barriers to Discharge (SOFTWARE ASSET MANAGER): NA - Post acute placement is recommended and no barriers to placement known. Post Discharge follow-up (SOFTWARE ASSET MANAGER): SOFTWARE ASSET MANAGER at post-acute placement Recommend PM&R Consult (SOFTWARE ASSET MANAGER): Yes, for assessment of post-acute placement needs. Pt appears to be a candidate for higher intensity rehab services. 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 Safe to restart baseline diet of regular textures and thin liquids. Ensure pt is upright for all PO intake and is alert. Speech-Language Pathologist: Sera Fleming SLP [facility], 11/07/2023 2:44 PM Pager: [employer] NESS CONTROL MANAGER * Juan Loera MD - 11/07/2023 10:42 AM CST SURGERY TRAUMA PROGRESS NOTE -PGY 1 Lucinda Ryans : 1940 Sex: female ASSESSMENT: 83 y.o. yo female with SDH R cerebral convexity and falx, scattered SAH and periventricular hemorrhage . The following services have been consulted PM&R, SOFTWARE ASSET MANAGER. Night Events: -Pt reported to be pulling out lines overnight, given zyprexa 10 mg for agitation Day Events: -Patient diet changed to NPO due to aspiration concerns -Held oral antihypertensives to start tomorrow pending clearance from SOFTWARE ASSET MANAGER -Start Maintenance fluids LR 110ml/hr ending 11/08/23 [...] for her mother. Advised to speak with healthcare social worker to start paperwork. Updated family [...] the Primary Treatment Team, click here. NESS CONTROL MANAGER Associated attestation - Mariama Catherine DO - 11/12/2023 2:36 PM BUSINESS CONTROL MANAGER FACULTY NOTE I saw and evaluated the [...] Dt scheduling, unable to reschedule today. NESS CONTROL MANAGER * Sera Fleming, STE[facility] - 11/07/2023 9:55 AM CST Speech-Language Pathology Progress Note 11/07/2023 SOFTWARE ASSET MANAGER Recommendations Discharge Recommendations (SOFTWARE ASSET MANAGER): Post-acute placement recommended. Acute Rehab if meets admission criteria No known barriers to placement Barriers to Discharge (SOFTWARE ASSET MANAGER): NA - Post acute placement is recommended and no barriers to placement known. Post Discharge follow-up (SOFTWARE ASSET MANAGER): SOFTWARE ASSET MANAGER at post-acute placement Recommend PM&R Consult (SOFTWARE ASSET MANAGER): Yes, for assessment of post-acute placement needs. Pt appears to be a candidate for higher intensity rehab services. Diet Recommendation: Current Diet : NPO Current Liquid: NPO Medication Administration: None orally Oral Hygiene: Lupton teeth 2x/day Instrumental Assessment Needed: No Additional Referrals Needed: None Page SOFTWARE ASSET MANAGER if alertness levels improve. Will re-evaluate today [...] time. Education provided to at bedside re SOFTWARE ASSET MANAGER role and delirium dysphagia. 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 Pt is pending further imaging to ensure no change in TBI. Recommend continuing NPO at this time. RN to page SOFTWARE ASSET MANAGER with improved alertness levels and will see again today based on improvement. Speech-Language Pathologist: Sera Fleming, [facility], 11/07/2023 9:59 AM Pager: [employer] NESS CONTROL MANAGER * Ruby Franklin, OTR/L - 11/06/2023 4:39 [...] mgmt/ADL: 25 minutes Ruby Franklin, OTR/L Pager: [facility] NESS CONTROL MANAGER * Sera Fleming SLP [facility] - 11/06/2023 2:32 PM CST Speech Language Pathology: Pt not seen today d/t staffing and time constraints. Will plan to see pt tomorrow for cognitive-linguistic dx/tx and swallow follow up. Sera Fleming SLP [facility], 11/06/2023 2:32 PM NESS CONTROL MANAGER * Shy Higuera - 11/06/2023 11:04 AM CST Was unable to draw blood because nurse requested lab to come back later. Notified YOVANY Cornejo at 11:04. Patient's visitor stated that these labs are duplicate, informed YOVANY Cornejo she will call lab if needed. Shy Higuera, 11/06/2023 11:04 AM NESS CONTROL MANAGER * Bill Olivera - 11/06/2023 10:56 AM CSTSummary: Care Coordination Assessment Care Coordination Assessment Expected DC Date: 11/07/2023 Social Information Shoe Patternmaker Used: None needed Decision Maker at Admission: [...] Risks for Readmission: Access to f/u appointments manager equity will continue to follow until DC SUMMARY [...] Inbasket notification sent via Care Everywhere NESS CONTROL MANAGER * Karime Allison PA-C - 11/06/2023 8:06 [...] intact Motor: Follows commands x4 extremities, 5/5 chemical sprayer strength and plantar/dorsiflexion bilaterally, no pronator drift Sensory: Sensation intact in all [address] 11/05 11:15 am is stable Assessment: In assessment, Lucnida Kennedy is a 83 y.o. female with [...] PRN Neurosurgery will follow peripherally, please contact bronc breaker resident with any questions or concerns. Staffed with Karime Sheikh PA-C, 11/06/2023 8:06 AM Neurosurgery ALICIA Discharge Milestones Documentation Discharge Milestones completed daily by the documenting provider on the Primary Treatment Team, click here. NESS CONTROL MANAGER * Derek Marie RN - 11/06/2023 12:58 [...] Derek Marie RN, 11/06/2023 1:00 AM NESS CONTROL MANAGER * Gale Nassar MDIV - 11/05/2023 4:48 [...] Gale Nassar MDIV, 11/05/2023 4:49 PM Pager: [phone] NESS CONTROL MANAGER * Kindra Nichole RN - 11/05/2023 1:19 AM CST Upon admission, a Four Eyes Skin Inspection was completed with Rafa Goodman RN. Skin injuries were NOT present, and skin breakdown needing further assessment will be added to Avatar. Will implement interventions from Skin INJURY Bundle as appropriate. Kindra Nichole RN, 11/05/2023 1:20 AM NESS CONTROL MANAGER * Hernandez Mathur MD - 11/05/2023 12:[place] [address] [facility]#: [id number] PATIENT: LUCINDA KENNEDY : 1940 DATE DICTATED: 11/05/2023 SURGERY STAFF DAILY PROGRESS NOTE DATE OF SERVICE: 11/05/2023 I saw and evaluated the patient. I discussed management with residents, ELECTRIC ENGINE MECHANIC, and PAs on the Neurosurgery team and [...] PhD Staff Physician Neurosurgery Service Received in Paper Final Inspector: 11/05/2023 17:07:17 M: /[id number] NE/MODL NESS CONTROL MANAGER documented in this encounter H&P Notes * [...] Team Notified by: [employer] Alert received at 7511 Tier Level page received at 2629 Staff Surgeon: Quinn Covarrubias MD Pediatric Patient < 15 years: No. [facility] Tra[facility] Team Time Out Completed: No HISTORY [...] diagnostic studies, procedures and surgery) Admit to [facility] Trauma Surgery Service Neurosurgery Consult paged out. Neurosurgery resident arrived at 2310. Consult to SICU Full Code Cardiac Monitoring q1Hr neuro checks, CMS checks Incentive Spirometer Bedrest with C, T, & L spine precautions C-spine exam and possible clearance once final reads posted NPO until final reads on radiography Consult SOFTWARE ASSET MANAGER and keep strict NPO if Age > [...] DO, 11/04/2023 10:54 PM General Surgery PGY1 [facility] Surgery Service NESS CONTROL MANAGER Associated attestation - Quinn Covarrubias MD - 11/05/2023 10:43 AM BUSINESS CONTROL MANAGER FACULTY NOTE I saw and evaluated the [...] Patient Risks discussed: Pain, bleeding and infection [place] protocol: Patient identity confirmed: Verbally with patient, [...] Priscilla Holcomb MD, 11/04/2023 11:43 PM NESS CONTROL MANAGER Associated attestation - Rito Graf MD - 11/05/2023 2:30 AM BUSINESS CONTROL MANAGER I was present for the entire procedure. [...] contact pharmacist on service at [facility] ([employer]) [phone]. If no response within needed timeframe, please contact central pharmacy via phone at [phone]. Planned discharge medications are: Medication List Medications [...] capsules (225 mg) by mouth daily. NESS CONTROL MANAGER * Tamiko Westbrook LGSW - 11/15/2023 8:32 AM CSTAssociated Order(s): CONSULT TO DRAPERY ESTIMATOR Electrical Logging Operator Note Acknowledged consult place for support [...] (I sent supporting resources as requested) NESS CONTROL MANAGER * Isabel Day - 11/14/2023 2:18 PM [...] was no one else in the room. Side Laster greeted Patient, introduced herself, and offered music. Patient was pleasantly confused and asked Side Laster to sit down. Side Laster sat down and got out her guitar. Patient chatted with Side Laster. Side Laster played a song for Patient on guitar and sang. During the music, Patient looked at the television. After the song, Patient talked about the circumstances leading to her hospitalization and about a possibly surgery. Patient told Side Laster she is waiting for her to return after checking on their house in [place]. Side Laster played a second song, After the music, Patient commented that the music was very beautiful. Side Laster ended the session and Patient thanked Side Laster. Goals Addressed: Psychosocial Support and Mood Enhancement Plan: Side Laster will continue to offer music therapy to Patient when possible. Isabel Day, 11/14/2023 2:18 PM NESS CONTROL MANAGER * Kasey Ennis, PT - 11/06/2023 9:02 [...] History of Falling Z 91.81 PRECAUTIONS Falls Shoe Patternmaker Used: None needed ACTIVITY Up with Assist [...] math, 92, 102) hospital, Alert, and Cooperative BARROW OBJECTIVE Initial patient presentation upon PT arrival: [...] EOB upon arrival, eating breakfast. She seems BARROW, slightly confused but cooperative. She has good [...] AD, stairs for home usage daily. . CAT SCANNER OPERATOR Appropriate: Yes Participated in goal setting and treatment planning: Patient, Guest Relations Executive/Significant Other Agrees with goals and treatment plan: Patient - Yes, Caregiver/Significant Other - Yes. Kasey Ennis, PT 11/06/2023 Pager: [facility] NESS CONTROL MANAGER * Devyn Jamil MD - 11/06/2023 7:41 AM CST Images from the original note were not included. Physical Medicine & Rehabilitation Consultation Patient Name: Lucinda Kennedy : 1940 Medical Record: [id number] PRIMARY CARE PHYSICIAN: No primary care provider on file. REQUESTING PHYSICIAN: Quinn Covarrubias MD REASON FOR CONSULT: I was asked to evaluate this patient regarding their rehabilitation needs and appropriateness for acute rehabilitation. HISTORY OF PRESENT PROBLEM I personally reviewed the patient's medical record from the most recent [facility] admission including yet not limited to notes as below and summarized it below in conjunction with interview with the patient and patient's . Lucinda Kennedy is a 83 y.o. RHD female with chronic medical conditions including HTN, DM II, and HLD, who was admitted to [facility] 11/04/2023 after being found unconscious at the [...] she couldn't come up with the name. SOFTWARE ASSET MANAGER (11/05/23) Functional oropharyngeal swallow. Safe for regular [...] of the thoracic or lumbar spine. 2. Kkub-co-adrrgqwy lumbar spondylosis without suspected high-grade spinal canal or neural foraminal narrowing. CT L-Spine (11/04/23) IMPRESSION Impression: 1. No suspected acute fracture or dislocation of the thoracic or lumbar spine. 2. Ifux-oh-mbpmeymf lumbar spondylosis without suspected high-grade spinal canal [...] II, and HLD, who was admitted to [facility] 11/04/2023 after being found unconscious at the [...] address self care, ADL's, adaptive equipment Continue SOFTWARE ASSET MANAGER to address speech, swallow, communication, cognition Regarding [...] occur at the acute level such as [place] where she can participate in 3hrs/day and [...] service including pre-visit review of separatelyobtained history, guko-zr-wuba interaction performing medically appropriate physical exam, patient counseling/education, interpretation of diagnostic results, care coordination and documentation was 60 minutes. NESS CONTROL MANAGER * Ruby Franklin, OTR/L - 11/05/2023 1:53 [...] 10 minutes Therapist: Ruby Franklin OTR/L Pager: [facility] Occupational Therapy Department NESS CONTROL MANAGER * Reynaldo Anderson PA-C - 11/05/2023 12:41 [...] though 2 of 3 serve in the ([place] and one may be a Progressive Assembler And Fitter?). She jokes about how long she has been to [place]. 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 Seen this afternoon, she is not oriented to time or place. No family present. She does indicate to me she prefers to go by [employer]. She was able to tell me a lot about her 3 grandsons that make her veryproud, sounds as though 2 of 3 serve in the ([place] and one may be a Progressive Assembler And Fitter?). She jokes about how long she has been to [place]. 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 NESS CONTROL MANAGER * Sera Fleming SLP [facility] - 11/05/2023 9:56 AM CST SPEECH-LANGUAGE PATHOLOGY CONSULTATION SOFTWARE ASSET MANAGER Recommendations Discharge Recommendations (SOFTWARE ASSET MANAGER): Post-acute placement recommended. Acute Rehab if meets admission criteria No known barriers to placement Barriers to Discharge (SOFTWARE ASSET MANAGER): NA - Post acute placement is recommended and no barriers to placement known. Post Discharge follow-up (SOFTWARE ASSET MANAGER): SOFTWARE ASSET MANAGER at post-acute placement Recommend PM&R Consult (SOFTWARE ASSET MANAGER): Yes, for assessment of post-acute placement needs. Pt appears to be a candidate for higher intensity rehab services. Diet Recommendation: Current Diet : Regular Current Liquid: Thin liquids Medication Administration: Medications with thin liquid Aspiration Precautions: Upright with all eating and drinking Oral Hygiene: Lupton teeth 2x/day Positioning Techniques: Seat fully upright [...] Admitted to SICU for close neuro monitoring. SOFTWARE ASSET MANAGER consulted to evaluate a marge function. SUBJECTIVE Barriers to Learning: No caregiver present;Cognitive linguistic deficit Barriers to Discharge (SOFTWARE ASSET MANAGER): NA - Post acute placement is recommended [...] intact. EDUCATION Audience: Patient Education: results of assessment;SOFTWARE ASSET MANAGER scope of practice;SOFTWARE ASSET MANAGER plan of care;recommendation for additional therapy Speech-Language Pathologist: Sera Fleming, [facility], 11/05/2023 9:56 AM Pager: [employer] NESS CONTROL MANAGER * Cale Thompson MD - 11/05/2023 1:00 AM CSTAssociated Order(s): CONSULT TO FLIGHT ENGINEER HELICOPTER SICU CONSULT - G3 Lucinda Ryans : [...] pulmonary toilet Gastrointestinal/Nutrition: Assessment: NPO, will need SOFTWARE ASSET MANAGER clearance prior to diet Plan: - Continue NPO - SOFTWARE ASSET MANAGER Electrolytes: Assessment: otherwise grossly within normal limits. [...] Component Value Date/Time PHART 7.37 11/05/2023 0118 [id number] 43 11/05/2023 0118 PO2ART 83 11/05/2023 0118 [id number] 25 11/05/2023 0118 [id number] 96 11/05/2023 0118 BEART -0.3 11/05/2023 0118 Labs and imaging reviewed. Art Thompson MD - PGY-3 Surgery Service Pager: Tel[employer] This patient was seen in consultation for critical care management requested by Devin Dougherty MD;P* NESS CONTROL MANAGER Associated attestation - Quinn Covarrubias MD - 11/05/2023 10:44 AM BUSINESS CONTROL MANAGER FACULTY NOTE I saw and evaluated the [...] elbow flex/ext. 5/5 wrist flex/ext. 5/5 hand chemical sprayer. LUE: 5/5 shoulder abduction. 5/5 elbow flex/ext. 5/5 wrist flex/ext. 5/5 hand chemical sprayer. Lower Extremities: RLE: 5/5 hip flexion. 5/5 knee flex/ext. 5/5 ankle plantar-/dorsiflexion. 5/5 EHL. LLE: 5/5 hip flexion. 5/5 knee flex/ext. 5/5 ankle plantar-/dorsiflexion. 5/5 EHL Sensory: Sensation intact in all 4 extremities REVIEW OF LABORATORY, PATHOLOGY, AND RADIOLOGY DATA: [facility] Lab Results Component Value Date/Time NA 144 [...] reviewed: Laboratory results and Radiology images NESS CONTROL MANAGER Associated attestation - Marina Shaffer MD - 11/05/2023 4:13 PM BUSINESS CONTROL MANAGER 83 year old woman presented after presumed [...] Oximetry - Continuous (ICU) Oxygen Consult to Clip Wrapper CONSULT TO PALLIATIVE CARE Straight Cath Protocol [...] in EDSTAB 2 at 11/04/2023 22:55:31 BUSINESS CONTROL MANAGER by Eleni Spring MLS. ED HEMOGLOBIN TOTAL (ED ONLY) - Abnormal Hgb 10.3 (*) LACTATE (LACTIC ACID) - Abnormal Lactate 2.7 (*) Narrative: Send specimen on ice! PTT (APTT) - Abnormal APTT 22.9 (*) ANTI XA HEPARIN UNFRACTIONATED - Abnormal Anti XA Hep U <0.04 (*) URINALYSIS,TOTAL - Abnormal Color COLORLESS Appearance CLEAR Urine Glucose 100 (*) Bili UA NEGATIVE Ketones NEGATIVE Specific [place] 1.036 (*) Blood Ur NEGATIVE PH Urine 7.5 (*) Protein Ur TRACE Urobilinogen NORMAL Nitrite Ur NEGATIVE Leuk Est NEGATIVE WBC Ur 0-5 RBC Ur 0-3 SQ EPITH 0-5 Urinalysis Performed at: [facility] FIBRINOGEN Fibrinogen 288 PRECAUTIONARY TUBE Prec Tube [...] Vanna Parekh PA-C, 11/05/2023 3:11 AM NESS CONTROL MANAGER * Kathy Worthington RN - 11/05/2023 12:09 AM CST Bed: A08 Expected date: Expected time: Means of arrival: Comments: Stab 2 NESS CONTROL MANAGER * nAa Ordaz RN - 11/04/2023 10:51 PM CST ED-data governance consultant-Note: --Pertinent Information: Pt arrives to ED after fall down flight of stairs. --Pt's , daughter and son in law were on scene and are all coming to [facility]. --Family contact: Daughter Zain #[phone] / Son in Law # [phone] Ana Ordaz RN NESS CONTROL MANAGER * Rafa Hutchins RN - 11/04/2023 10:40 PM CST BIBA from home after called when he heard her fall downstairs. Upon EMS arrival, patient was altered and lethargic. reports to EMS that patient is on blood thinners. 18g PIV left AC, 20g PIV right forearm. BG 272. Patient arrives to STAB Room awake, disoriented to time and situation. NESS CONTROL MANAGER documented in this encounter Miscellaneous Notes * Discharge non-MD/non-AVERY Summaries - Kasey Ennis, PT - 11/16/2023 9:19 AM CST Physical Therapy Inpatient Discharge Summary Lucinda Kennedy [id number] Diagnosis Patient Active Problem List Diagnosis Fall, [...] transfer bed to/from chair with (6) Modified [place] with sliding board or pivot method. By 11-17-2023 Outcome: In progress Goal: Patient will transfer sit to/from stand Description: Patient will transfer sit to/from stand with (6) Modified [place] By 11-17-2023. Outcome: In progress Problem: Decreased Ambulatory Skills Goal: Improve gait Description: Ambulate 100 meters using Front - wheeled walker with (6) Modified [place] By 11-17-2023. Outcome: In progress Goal: Improve gait on stairs Description: Ascend/descend 7 +7 stairs using Cane with (6) Modified [place] .By 11-17-2023 Outcome: In progress Problem: Decreased Functional Motor Skills - PT Goal: Patient demonstrates improved balance Description: Pt to score at least 45/56 Mitchell Balance to indicate decreased risk for falls By 11-17-2023 Outcome: In progress Plan: Discharge to Rehab Facility Physical Therapist: Kasey Ennis, PT Date: 11/17/2023 Pager: [facility] PT Department NESS CONTROL MANAGER * Discharge non-MD/non-AVERY Summaries - Bill Olivera - 11/16/2023 7:46 AM BUSINESS CONTROL MANAGER Summary: DC to TCU Care Coordination Discharge Note Expected DC Date: 11/16/2023 Expected DC Time: 9 AM Final Discharge Destination: Destination Coordination complete. Service Provider Selected Services Address Phone Fax Theresa Yusuf, A [facility] [address] [place] [address] [phone] Summary: Patient has been accepted to continue rehabing at the aforementioned post acute facility. Family onboard with plan. WC ride has been ordered for Fri at 9 am Medical team is aware. They will work writing DC orders. CC faxed DC orders to TCU via [employer]. Medical team is aware any controlled substances must be printed and signed to be sent in physical form to the TCU. Also, [employer]CH[employer]ISING [employer] will fax it to TCU temi. Bedside nurse please confirm this is done. A TelIncuvoQ thread has been started. CC will continue to follow until DC. Please use [employer] for any further questions. NESS CONTROL MANAGER * Nursing Assessment - Karolyn Jacob RN [...] bedside and sitting quietly at bedside NESS CONTROL MANAGER * Nursing Assessment - Lila Gaines, RN [...] Assessment Within Defined Limits except for: NESS CONTROL MANAGER * Discharge non-MD/non-AVERY Summaries - Nayeli Alvarado, SOFTWARE ASSET MANAGER [facility] - 11/15/2023 4:35 PM CST SPEECH-LANGUAGE PATHOLOGY Discharge Summary 11/15/2023 SOFTWARE ASSET MANAGER Recommendations Discharge Recommendations (SOFTWARE ASSET MANAGER): Post-acute placement recommended. Acute Rehab if meets admission criteria No known barriers to placement Barriers to Discharge (SOFTWARE ASSET MANAGER): NA - Post acute placement is recommended and no barriers to placement known. Post Discharge follow-up (SOFTWARE ASSET MANAGER): SOFTWARE ASSET MANAGER at post-acute placement Recommend PM&R Consult (SOFTWARE ASSET MANAGER): Yes, for assessment of post-acute placement needs. Pt appears to be a candidate for higher intensity rehab services. Diet Recommendation: Current Diet : Regular Current Liquid: Thin liquids Medication Administration: Medications with thin liquid Aspiration Precautions: Upright with all eating and drinking Oral Hygiene: [place] teeth 2x/day Positioning Techniques: Seat fully upright [...] hemianopsia. EDUCATION Audience: Patient Education: results of assessment;SOFTWARE ASSET MANAGER scope of practice;SOFTWARE ASSET MANAGER plan of care;recommendation for additional therapy Prognosis is good for increasing independence with iADLs. Speech-Language Pathologist: Nayeli Alvarado, SOFTWARE ASSET MANAGER [facility], 11/15/2023 4:35 PM Pager: Tel[employer] NESS CONTROL MANAGER * Discharge non-MD/non-AVERY Summaries - Sharri Price, OTR/L - 11/15/2023 2:12 PM CST [facility] Occupational Therapy Discharge Summary Lucinda [...] subacute rehab. Patient Name: Lucinda Kennedy MR#: [id number] Date of : 1940 Age: 83 y.o. 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): ADLs/IADLs: No assistance required (Independent or modified [...] Occupational Therapist: [facility] OT Department NESS CONTROL MANAGER * Nursing Assessment - Dariana Alvarado RN - 11/15/2023 4:49 AM CST Nursing Assessment Head to Toe Head to Toe Assessment Shift Summary Shift [id number]: Pt is alert and oriented to self [...] Psychosocial Assessment: Observed Patient Behaviors: Restless NESS CONTROL MANAGER * Nursing Assessment - Tone Rosario RN [...] Psychosocial Assessment: Observed Patient Behaviors: Restless NESS CONTROL MANAGER * Nursing Assessment - Adelso Huber RN - 11/14/2023 4:30 PM BUSINESS CONTROL MANAGER Nursing Assessment Head to Toe Head to [...] at bedside and attentive to patient NESS CONTROL MANAGER * Nursing Assessment - Adelso Huber RN - 11/14/2023 10:17 AM BUSINESS CONTROL MANAGER Nursing Assessment Head to Toe Head to [...] at bedside and attentive to patient NESS CONTROL MANAGER * Nursing Assessment - Luisa Pablo, RN [...] at bedside and attentive to patient NESS CONTROL MANAGER * Nursing Assessment - Sanjuana Reyes, RN [...] and participating in care Comments: Spouse NESS CONTROL MANAGER * Nursing Assessment - Nikole Diego RN [...] at bedside and attentive to patient NESS CONTROL MANAGER * Nursing Assessment - Lila Reed RN [...] Psychosocial Within Defined Limits Comments: present NESS CONTROL MANAGER * Nursing Assessment - Bianca Bell RN - 11/12/2023 2:17 PM BUSINESS CONTROL MANAGER Nursing Assessment Head to Toe Head to [...] State: Acceptance Family Behavior: not present NESS CONTROL MANAGER * Nursing Assessment - Teresita Vidales RN [...] -- 5 Psychosocial Within Defined Limits NESS CONTROL MANAGER * Nursing Assessment - Teresita Vidales RN [...] State: Acceptance Family Behavior: not present NESS CONTROL MANAGER * Nursing Assessment - Nikole Diego RN [...] he expressed her confusion and decline NESS CONTROL MANAGER * Nursing Assessment - Carolina Awan RN [...] Cardiac Assessment Within Defined Limits except for: Puppet Developer - remote telemetry Respiratory Assessment Within Defined [...] -- 4 Psychosocial Within Defined Limits NESS CONTROL MANAGER * Nursing Assessment - Carolina Awan RN - 11/10/2023 9:30 PM CST Nursing Assessment Head to Toe Head to Toe Assessment Shift Summary Shift Summary Neurologic/Cognitive Assessment Within Defined Limits except for: Orientation: disoriented to place, disoriented to time and disoriented to situation HEENT Within Defined Limits Cardiac Assessment Within Defined Limits except for: Puppet Developer - remote telemetry Respiratory Assessment Within Defined [...] -- 4 Psychosocial Within Defined Limits NESS CONTROL MANAGER * Nursing Assessment - Elvira Benitez RN [...] Psychosocial Assessment: Verbalized Emotional State: Acceptance NESS CONTROL MANAGER * Nursing Assessment - Zaira Bellamy, RN [...] Pt stated she is going home today, Side Laster reoriented to POC. Tylenol prn given for [...] Psychosocial Assessment: Verbalized Emotional State: Acceptance NESS CONTROL MANAGER * Nursing Assessment - Quynh Jenkins RN - 11/10/2023 6:46 AM CST Nursing Assessment Head to Toe Head to Toe Assessment Shift Summary Shift Summary Neurologic/Cognitive Assessment Within Defined Limits except for: Orientation: disoriented to place, disoriented to time and disoriented to situation Frequent Neuro Assessments have been documented in the flowsheets HEENT Within Defined Limits Cardiac Assessment Within Defined Limits except for: Puppet Developer - remote telemetry Pacemaker: Pacemaker: No Respiratory [...] -- 3 Psychosocial Within Defined Limits NESS CONTROL MANAGER * Nursing Assessment - Anita Keaitng RN - 11/09/2023 5:41 PM CST Nursing [...] Defined Limits except for: Chest Pain: No Puppet Developer - remote telemetry Pacemaker: Pacemaker: No Respiratory [...] Psychosocial Within Defined Limits Shift Summary NESS CONTROL MANAGER * Nursing Assessment - Anita Keating RN - 11/09/2023 11:44 AM CST Nursing Assessment Head to Toe Head to Toe Assessment Shift Summary Neurologic/Cognitive Assessment Within Defined Limits except for: Cognition: poor attention/concentration Level of Consciousness: Lethargic Frequent Neuro Assessments have been documented in the flowsheets HEENT Within Defined Limits Cardiac Assessment Within Defined Limits except for: Chest Pain: No Puppet Developer - remote telemetry Pacemaker: Pacemaker: No Respiratory [...] -- 2 Psychosocial Within Defined Limits NESS CONTROL MANAGER * Nursing Assessment - Mayte Grover RN [...] Cardiac Assessment Within Defined Limits except for: Puppet Developer - remote telemetry Respiratory Assessment Within Defined [...] -- 2 Psychosocial Within Defined Limits NESS CONTROL MANAGER * Nursing Assessment - Chucho Blair, RN [...] pivot to commode. Meds whole with water, [id number]. Otherwise resting between cares with family present. Chucho Blair, RN, 11/08/2023 7:01 PM Neurologic/Cognitive Assessment Within Defined Limits except for: Cognition: poor attention/concentration Level of Consciousness: Lethargic Frequent Neuro Assessments have been documented in the flowsheets HEENT Within Defined Limits Cardiac Assessment Within Defined Limits except for: Puppet Developer - remote telemetry Respiratory Assessment Within Defined [...] -- 2 Psychosocial Within Defined Limits NESS CONTROL MANAGER * Nursing Assessment - Tone Rosario RN [...] -- 1 Psychosocial Within Defined Limits NESS CONTROL MANAGER * Nursing Assessment - Tone Rosario RN [...] -- 1 Psychosocial Within Defined Limits NESS CONTROL MANAGER * Nursing Assessment - Chucho Blair, RN [...] Cardiac Assessment Within Defined Limits except for: Puppet Developer - remote telemetry Respiratory Assessment Within Defined [...] -- 1 Psychosocial Within Defined Limits NESS CONTROL MANAGER * Nursing Assessment - Chucho Blair, RN [...] than 1 Psychosocial Within Defined Limits NESS CONTROL MANAGER * Nursing Assessment - Tone Rosario RN [...] than 1 Psychosocial Within Defined Limits NESS CONTROL MANAGER * Nursing Assessment - Tone Rosario RN [...] than 1 Psychosocial Within Defined Limits NESS CONTROL MANAGER * Nursing Assessment - Chantal Higgins RN [...] than 1 Psychosocial Within Defined Limits NESS CONTROL MANAGER * Nursing Assessment - Chantal Higgins RN [...] -- 1 Psychosocial Within Defined Limits NESS CONTROL MANAGER * Nursing Assessment - Musa De La Torre RN - 11/06/2023 4:25 AM BUSINESS CONTROL MANAGER Nursing Assessment Head to Toe Head to [...] Cardiac Assessment Within Defined Limits except for: Puppet Developer - remote telemetry Respiratory Within defined limits [...] to patient and interacting with patient NESS CONTROL MANAGER * Transfer - Musa De La Torre RN - 11/06/2023 12:20 AM CST Images from the original note were not included. TRANSFER IN NOTE D: Patient transferred in to [place] [id number] from [facility] at 2320. Patient condition on [...] La Torre RN, 11/06/2023 12:22 AM NESS CONTROL MANAGER * Nursing Assessment - Derek Marie RN - 11/05/2023 10:33 PM CST Nursing Assessment Head to Toe Head to Toe Assessment Shift Summary Shift Summary Neurologic/Cognitive Assessment Within Defined Limits except for: Cognition: poor judgement/safety awareness Level of Consciousness: Lethargic Arousal Level: Arouses to pain HEENT Assessment Within Defined Limits except for: Cardiac Assessment Within Defined Limits except for: Heart sounds: S1, S2 Puppet Developer - bedside telemetry ECG Rhythm: normal sinus [...] with patient and participating in care NESS CONTROL MANAGER * Nursing Assessment - Eloise Randolph RN - 11/05/2023 8:00 PM CST Nursing Assessment Head to Toe Head to Toe Assessment Shift Summary SHIFT [id number] NEURO - Patient Alert to self, and [...] Cardiac Assessment Within Defined Limits except for: Puppet Developer - bedside telemetry ECG Rhythm: normal sinus [...] patient and sitting quietly at bedside NESS CONTROL MANAGER * Nursing Assessment - José rUbano RN - 11/05/2023 4:06 PM CST Nursing [...] Cardiac Assessment Within Defined Limits except for: Puppet Developer - bedside telemetry Lead Monitored: Lead II ECG Rhythm: normal sinus rhythm NJ Interval (sec): 0.16 QRS Interval (sec): 0.13 [...] than 1 Psychosocial Within Defined Limits NESS CONTROL MANAGER * Nursing Assessment - Eloise Randolph RN - 11/05/2023 4:00 PM CST Nursing Assessment Head to Toe Head to Toe Assessment Shift Summary Shift Summary Neurologic/Cognitive Assessment Within Defined Limits except for: Arousal Level: Arouses to voice Orientation: disoriented to time and disoriented to situation Mood/Behavior: Calm HEENT Within Defined Limits Cardiac Assessment Within Defined Limits except for: Puppet Developer - bedside telemetry ECG Rhythm: normal sinus [...] patient and sitting quietly at bedside NESS CONTROL MANAGER * Nursing Assessment - José Urbano RN [...] Cardiac Assessment Within Defined Limits except for: Puppet Developer - bedside telemetry Lead Monitored: Lead II ECG Rhythm: normal sinus rhythm NJ Interval (sec): 0.16 QRS Interval (sec): 0.13 [...] than 1 Psychosocial Within Defined Limits NESS CONTROL MANAGER * Trauma Tertiary Exam - Jesusita Aiken APRN, EMILY - 11/05/2023 7:08 AM CST TRAUMA TERTIARY EXAM - 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 2. 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 [email or web address] [email or web address]/Departments/[email or web address]/[email or web address]/index.htm 1. In the past year: Have you felt you should cut down on your drinking? no 2. In the past year: Have people annoyed you by criticizing your drinking? no 3. In the past year: Have you felt bad or guilty about your drinking? no 4. In the past year: Have you had an eye block hand first thing in the morning to [...] CFS >/= 7, consult Palliative Care Consult SOFTWARE ASSET MANAGER for: TBI or Altered Mental Status *If patient meets criteria for an SOFTWARE ASSET MANAGER consult, please order aspiration precautions Mental Health [...] on guard, watchful, or easily startled? no [place] numb or detached from others, activities, or [...] SAH risk for bleeding Diet: NPO until SOFTWARE ASSET MANAGER eval Activity: Up ad nia C/T/L-Spine status: cleared Weight-bearing status: no restrictions Therapy: PT, OT, OT for cognitive screen, and SOFTWARE ASSET MANAGER Consulting Teams(s) Plan and/or Follow-up Recommendations: Neurosurgery: [...] recommendations, and To be determined. Jesusita Aiken, CONFIGURATION MANAGEMENT MANAGER, ELECTRIC ENGINE MECHANIC 11/05/2023 07:08 NESS CONTROL MANAGER * Nursing Assessment - Rafa Tineo RN [...] Cardiac Assessment Within Defined Limits except for: Puppet Developer - bedside telemetry Lead Monitored: Lead II [...] at bedside and interacting with patient NESS CONTROL MANAGER * Nursing Assessment - Rafa Tineo RN [...] Cardiac Assessment Within Defined Limits except for: Puppet Developer - bedside telemetry Lead Monitored: Lead II [...] at bedside and interacting with patient NESS CONTROL MANAGER * Interdisciplinary Note - Amelia Lobo MD - 11/05/2023 12:16 AM BUSINESS CONTROL MANAGER Patient oriented to self, date, family and medical history. Discussed code status with patient. Shewishes to be full code accepting of CPR and intubation at this time. Amelia Lobo MD, MPH 11/05/2023 06:17 PGY-5 General Surgery Resident Pager: [phone] or via [facility] NESS CONTROL MANAGER * Interval Note Provider - Priscilla Holcomb MD - 11/04/2023 11:44 PM BUSINESS CONTROL MANAGER PROCEDURES I performed the following procedures: Art Line Priscilla Holcomb MD, 11/04/2023 11:44 PM NESS CONTROL MANAGER * ED Faculty Note - Devin Dougherty [...] Devin Dougherty MD, 11/04/2023 11:13 PM NESS CONTROL MANAGER * ED Stabilization Note - Norm Hernandez [...] Disposition Admit to SICU Signed out to [facility] Procedures I performed the following procedures: Adult Trauma Resuscitation. Norm Hernandez MD, PGY-3 Emergency Medicine Resident NESS CONTROL MANAGER documented in this encounter Plan of Treatment Scheduled Referrals Name Type Priority Associated Diagnoses Orde r Schedule REFERRAL TO TRAUMATIC BRAIN INJURY Referral Routine Fall, initial encounter SDH (subdural hematoma) (CMS) SAH (subarachnoid hemorrhage) (CMS/HHS) Traumatic brain injury with loss of consciousness, initial encounter ([facility]) Ordered: 11/08/2023 documented as of this encounter Procedures Procedure Name Priority Date/Time Associated Diagnosis Comments PANEL BASIC METABOLIC (BMP) Routine 11/16/2023 7:22 AM BUSINESS CONTROL MANAGER POC GLUCOSE Routine 11/16/2023 6:58 AM BUSINESS CONTROL MANAGER POC GLUCOSE Routine 11/15/2023 9:15 PM BUSINESS CONTROL MANAGER POC GLUCOSE Routine 11/15/2023 4:09 PM BUSINESS CONTROL MANAGER POC GLUCOSE Routine 11/15/2023 12:46 PM BUSINESS CONTROL MANAGER PANEL BASIC METABOLIC (BMP) Routine 11/15/2023 7:39 AM BUSINESS CONTROL MANAGER POC GLUCOSE Routine 11/15/2023 6:11 AM BUSINESS CONTROL MANAGER POC GLUCOSE Routine 11/14/2023 9:02 PM BUSINESS CONTROL MANAGER POC GLUCOSE Routine 11/14/2023 4:21 PM BUSINESS CONTROL MANAGER POC GLUCOSE Routine 11/14/2023 12:19 PM BUSINESS CONTROL MANAGER PANEL BASIC METABOLIC (BMP) Routine 11/14/2023 8:59 AM BUSINESS CONTROL MANAGER POC GLUCOSE Routine 11/14/2023 8:11 AM BUSINESS CONTROL MANAGER POC GLUCOSE Routine 11/13/2023 9:15 PM BUSINESS CONTROL MANAGER POC GLUCOSE Routine 11/13/2023 4:03 PM BUSINESS CONTROL MANAGER POC GLUCOSE Routine 11/13/2023 11:21 AM BUSINESS CONTROL MANAGER PANEL BASIC METABOLIC (BMP) Routine 11/13/2023 6:41 AM BUSINESS CONTROL MANAGER POC GLUCOSE Routine 11/13/2023 6:31 AM BUSINESS CONTROL MANAGER POC GLUCOSE Routine 11/12/2023 9:21 PM BUSINESS CONTROL MANAGER POC GLUCOSE Routine 11/12/2023 4:12 PM BUSINESS CONTROL MANAGER PANEL BASIC METABOLIC (BMP) Timed 11/12/2023 1:01 PM BUSINESS CONTROL MANAGER POC GLUCOSE Routine 11/12/2023 12:14 PM BUSINESS CONTROL MANAGER POC GLUCOSE Routine 11/12/2023 6:09 AM BUSINESS CONTROL MANAGER POC GLUCOSE Routine 11/11/2023 8:48 PM BUSINESS CONTROL MANAGER POC GLUCOSE Routine 11/11/2023 4:11 PM BUSINESS CONTROL MANAGER POC GLUCOSE Routine 11/11/2023 11:47 AM BUSINESS CONTROL MANAGER PHOSPHORUS Routine 11/11/2023 6:09 AM BUSINESS CONTROL MANAGER PANEL BASIC METABOLIC (BMP) Routine 11/11/2023 6:09 AM BUSINESS CONTROL MANAGER MAGNESIUM Routine 11/11/2023 6:09 AM BUSINESS CONTROL MANAGER TC LAB BLOOD DRAW BY VENIPUNCTURE Routine 11/11/2023 6:09 AM BUSINESS CONTROL MANAGER POC GLUCOSE Routine 11/10/2023 8:58 PM BUSINESS CONTROL MANAGER POC GLUCOSE Routine 11/10/2023 4:16 PM BUSINESS CONTROL MANAGER POC GLUCOSE Routine 11/10/2023 11:15 AM BUSINESS CONTROL MANAGER PHOSPHORUS Routine 11/10/2023 6:17 AM BUSINESS CONTROL MANAGER PANEL BASIC METABOLIC (BMP) Routine 11/10/2023 6:17 AM BUSINESS CONTROL MANAGER MAGNESIUM Routine 11/10/2023 6:17 AM BUSINESS CONTROL MANAGER PC LAB CBC/PLT Routine 11/10/2023 6:17 AM BUSINESS CONTROL MANAGER POC GLUCOSE Routine 11/09/2023 9:41 PM BUSINESS CONTROL MANAGER POC GLUCOSE Routine 11/09/2023 3:58 PM BUSINESS CONTROL MANAGER ANTI XA ASSAY LMW HEPARIN Timed 11/09/2023 2:18 PM BUSINESS CONTROL MANAGER POC GLUCOSE Routine 11/09/2023 11:28 AM BUSINESS CONTROL MANAGER XR FOOT RIGHT 3 V AP/OBL/LAT* Routine 11/09/2023 10:36 AM BUSINESS CONTROL MANAGER POC GLUCOSE Routine 11/09/2023 5:46 AM BUSINESS CONTROL MANAGER PC VALPROIC ACID LEVEL DEPAHOTE Routine 11/09/2023 5:41 AM BUSINESS CONTROL MANAGER PHOSPHORUS Routine 11/09/2023 5:41 AM BUSINESS CONTROL MANAGER PANEL BASIC METABOLIC (BMP) Routine 11/09/2023 5:41 AM BUSINESS CONTROL MANAGER MAGNESIUM Routine 11/09/2023 5:41 AM BUSINESS CONTROL MANAGER PC LAB CBC/PLT Routine 11/09/2023 5:41 AM BUSINESS CONTROL MANAGER POC GLUCOSE Routine 11/08/2023 8:40 PM BUSINESS CONTROL MANAGER PHOSPHORUS Routine 11/08/2023 4:20 PM BUSINESS CONTROL MANAGER PANEL BASIC METABOLIC (BMP) Routine 11/08/2023 4:20 PM BUSINESS CONTROL MANAGER MAGNESIUM Routine 11/08/2023 4:20 PM BUSINESS CONTROL MANAGER TC LAB BLOOD DRAW BY VENIPUNCTURE Routine 11/08/2023 4:20 PM BUSINESS CONTROL MANAGER POC GLUCOSE Routine 11/08/2023 3:56 PM BUSINESS CONTROL MANAGER POC GLUCOSE Routine 11/08/2023 11:03 AM BUSINESS CONTROL MANAGER XR CHEST 1 VIEW AP OR PA* Routine 11/08/2023 6:30 AM BUSINESS CONTROL MANAGER POC GLUCOSE Routine 11/08/2023 6:22 AM BUSINESS CONTROL MANAGER POC GLUCOSE Routine 11/07/2023 9:34 PM BUSINESS CONTROL MANAGER POC GLUCOSE Routine 11/07/2023 4:06 PM BUSINESS CONTROL MANAGER POC GLUCOSE Routine 11/07/2023 11:45 AM BUSINESS CONTROL MANAGER XR CHEST 2 VIEWS PA + LAT* Routine 11/07/2023 10:07 AM BUSINESS CONTROL MANAGER PC PROCALCITONIN (PCT) Routine 8:34 AM BUSINESS CONTROL MANAGER PHOSPHORUS Routine 11/07/2023 8:34 AM BUSINESS CONTROL MANAGER PANEL BASIC METABOLIC (BMP) Routine 11/07/2023 8:34 AM BUSINESS CONTROL MANAGER MAGNESIUM Routine 11/07/2023 8:34 AM BUSINESS CONTROL MANAGER PC LAB CBC/PLT Routine 11/07/2023 8:34 AM BUSINESS CONTROL MANAGER POC GLUCOSE Routine 11/07/2023 5:45 AM BUSINESS CONTROL MANAGER POC GLUCOSE Routine 11/06/2023 9:21 PM BUSINESS CONTROL MANAGER PHOSPHORUS Timed 11/06/2023 1:06 PM BUSINESS CONTROL MANAGER PANEL BASIC METABOLIC (BMP) Timed 11/06/2023 1:06 PM BUSINESS CONTROL MANAGER MAGNESIUM Timed 11/06/2023 1:06 PM BUSINESS CONTROL MANAGER PC GASES,BLOOD,ANY COMB OF PH,PCD2,PO2,CO2,HCO2 Routine 11/06/2023 1:06 PM BUSINESS CONTROL MANAGER PC LAB CBC/PLT Timed 11/06/2023 1:06 PM BUSINESS CONTROL MANAGER POC GLUCOSE Routine 11/06/2023 1:04 PM BUSINESS CONTROL MANAGER POC GLUCOSE Routine 11/06/2023 10:49 AM BUSINESS CONTROL MANAGER PC MAGNESIUM, SERUM Routine 11/06/2023 6 :31 AM BUSINESS CONTROL MANAGER PC PHOSPHORUS INORGANIC(PHOSPHATE) Routine 11/06/2023 6:31 AM BUSINESS CONTROL MANAGER PC LAB CBC/PLT Routine 11/06/2023 6:31 AM BUSINESS CONTROL MANAGER TC LAB BLOOD DRAW BY VENIPUNCTURE Routine 11/06/2023 6:31 AM BUSINESS CONTROL MANAGER PROTHROMBIN (PT) & INR Timed 6:31 AM BUSINESS CONTROL MANAGER PC LAB GLYCOSYLATED HGB Routine 11/06/2023 6:31 AM BUSINESS CONTROL MANAGER POC GLUCOSE Routine 11/06/2023 5:39 AM BUSINESS CONTROL MANAGER POC GLUCOSE Routine 11/05/2023 4:54 PM BUSINESS CONTROL MANAGER MAGNESIUM Routine 11/05/2023 4:48 PM BUSINESS CONTROL MANAGER POTASSIUM Routine 11/05/2023 4:48 [address] HEAD NO IV CONTRAST Timed 11:44 AM BUSINESS CONTROL MANAGER POC GLUCOSE Routine 11/05/2023 11:11 AM BUSINESS CONTROL MANAGER EKG ADULT (12-LEAD) Routine 11/05/2023 6 :38 AM BUSINESS CONTROL MANAGER POC GLUCOSE Routine 11/05/2023 6:07 AM [address] CONTROL [address] HEAD NO IV CONTRAST Timed 4:54 AM BUSINESS CONTROL MANAGER PC MAGNESIUM, SERUM Routine 11/05/2023 4 :27 AM BUSINESS CONTROL MANAGER PC PHOSPHORUS INORGANIC(PHOSPHATE) Routine 11/05/2023 4:27 AM BUSINESS CONTROL MANAGER PC GASES,BLOOD,ANY COMB OF PH,PCD2,PO2,CO2,HCO2 Routine 11/05/2023 4:27 AM BUSINESS CONTROL MANAGER PC LAB CBC/PLT Routine 11/05/2023 4:27 AM BUSINESS CONTROL MANAGER TC LAB BLOOD DRAW BY VENIPUNCTURE Routine 11/05/2023 4:27 AM BUSINESS CONTROL MANAGER PC TROPONIN QUANTITATIVE Timed 11/05/2023 4:27 AM BUSINESS CONTROL MANAGER PROTHROMBIN (PT) & INR Timed 4:27 AM BUSINESS CONTROL MANAGER PC TROPONIN QUANTITATIVE Timed 11/05/2023 2:58 AM BUSINESS CONTROL MANAGER PROTHROMBIN (PT) & INR STAT 1:32 AM BUSINESS CONTROL MANAGER PHOSPHORUS STAT 11/05/2023 1:32 AM BUSINESS CONTROL MANAGER PANEL BASIC METABOLIC (BMP) STAT 11/05/2023 1:32 AM BUSINESS CONTROL MANAGER MAGNESIUM STAT 11/05/2023 1:32 AM BUSINESS CONTROL MANAGER PANEL HEPATIC FUNCTION STAT 1:32 AM BUSINESS CONTROL MANAGER FIBRINOGEN STAT 11/05/2023 1:32 AM BUSINESS CONTROL MANAGER CK, TOTAL STAT 11/05/2023 1:32 AM BUSINESS CONTROL MANAGER PC LAB CBC/PLT STAT 11/05/2023 1:32 AM BUSINESS CONTROL MANAGER PC LAB PTT STAT 11/05/2023 1:32 AM BUSINESS CONTROL MANAGER PC TROPONIN QUANTITATIVE Timed 11/05/2023 1:18 AM BUSINESS CONTROL MANAGER PC LACTATE (LACTIC ACID) STAT 11/05/2023 1:18 AM BUSINESS CONTROL MANAGER PC IONIZED,CALCIUM STAT 11/05/2023 1: 18 AM BUSINESS CONTROL MANAGER PC GASES,BLOOD,ANY COMB OF PH,PCD2,PO2,CO2,HCO2 STAT 11/05/2023 1:18 [address] HEAD-NECK - ANGIO - W/IV CON STAT 11/05/2023 12:09 AM BUSINESS CONTROL MANAGER PC LAB COMPLETE UA STAT 11/04/2023 11 :55 PM BUSINESS CONTROL MANAGER PF INSERT CATH,ART,PERCUT,SANTA ERM Routine 11/04/2023 11:43 PM BUSINESS CONTROL MANAGER ED EKG (12-LEAD) Routine 11/04/2023 11:2 [address] SPINE THORACIC NO IV CON STAT 11/04/2023 11:05 [address]OL [address] CT SPINE LUMBAR NO IV CON STAT 11/04/2023 11:05 PM [address] CONTROL [address] CT SPINE CERVICAL NO IV CON STAT 11/04/2023 11:05 PM [address] CONTROL MA[address] CT HEAD NO IV CONTRAST STAT 11:05 [address] CHEST/ABD/PELVIS W/IV CONT STAT 11/04/2023 11:05 PM BUSINESS CONTROL MANAGER XR CHEST 1 VIEW AP OR PA* STAT 11/04/2023 10:57 PM BUSINESS CONTROL MANAGER PC ELECTROLYTES PANEL STAT 11/04/2023 10:48 PM BUSINESS CONTROL MANAGER TC LAB ER STAT TOTAL HGB STAT 11/04/2023 10:48 PM BUSINESS CONTROL MANAGER PC LAB ED INR STAT 11/04/2023 10:45 PM BUSINESS CONTROL MANAGER TC LAB BLOOD DRAW BY VENIPUNCTURE Routine 11/04/2023 10:45 PM BUSINESS CONTROL MANAGER EXTRA TUBE - SST Routine 11/04/2023 10:4 5 PM BUSINESS CONTROL MANAGER PC TROPONIN QUANTITATIVE STAT 11/04/2023 10:45 PM BUSINESS CONTROL MANAGER PC LAB CBC W/DIFF & PLT STAT 11/04/2023 10:45 PM BUSINESS CONTROL MANAGER PRECAUTIONARY TUBE STAT 11/04/2023 10 :45 PM BUSINESS CONTROL MANAGER PC LACTATE (LACTIC ACID) STAT 11/04/2023 10:45 PM BUSINESS CONTROL MANAGER PC GASES,BLOOD,ANY COMB OF PH,PCD2,PO2,CO2,HCO2 STAT 11/04/2023 10:45 PM BUSINESS CONTROL MANAGER FIBRINOGEN STAT 11/04/2023 10:45 PM BUSINESS CONTROL MANAGER PC HEPARIN ASSAY STAT 11/04/2023 10:4 5 PM BUSINESS CONTROL MANAGER PC LAB PTT STAT 11/04/2023 10:45 PM BUSINESS CONTROL MANAGER ED US CRITICAL CARE STAT 11/04/2023 1 0:40 PM BUSINESS CONTROL MANAGER documented in this encounter Results * (ABNORMAL) PANEL BASIC METABOLIC (BMP) (11/16/2023 7:22 AM BUSINESS CONTROL MANAGER) Sodium 143 135 - 148 mEq/L [facility] Potassium 3.9 3.5 - 5.3 mEq/L [facility] Chloride 105 92 - 108 mEq/L [facility] CO2 27 22 - 30 mEq/L [facility] AnGap 11 8 - 16 mEq/L [facility] Glucose 87 70 - 100 mg/dL [facility] BUN 23 8 - 23 mg/dL [facility] Creatinine 1.19(H) 0.50 - 1.00 mg/dL [facility] Calcium 9.4 8.8 - 10.2 mg/dL [facility] eGFR (2020 CKD-EPI) 46(L) >=60 ml/min/1.[address] [facility] Comment: The estimated glomerular filtration rate (eGFR) was calculated using the CKD-EPI 2020 creatinine equation, which does not include race as a factor. This equation is validated in individuals 18 years of age and older, and eGFR is normalized to a body surface area of 1.73m^2. Blood 11/16/2023 7:22 AM BUSINESS CONTROL MANAGER 11/16/2023 7:43 AM BUSINESS CONTROL MANAGER Jesusita Aiken APRN, EMILY LABORATO RY Performing Organization Address City/[facility]/ZIP Co de Phone Number [facility] [place] [address] * POC GLUCOSE (11/16/2023 6:58 AM BUSINESS CONTROL MANAGER) POC Glucose 84 70 - 100 mg/dL [facility] POINT OF CARE Blood 11/16/2023 6:58 AM BUSINESS CONTROL MANAGER Devin Dougherty MD LABORATORY Performing Organization Address City/[facility]/ZIP Co de Phone Number [facility] POINT OF CARE [address] [place] [address], [place] * POC GLUCOSE (11/15/2023 9:15 PM BUSINESS CONTROL MANAGER) POC Glucose 83 70 - 100 mg/dL [facility] POINT OF CARE Blood 11/15/2023 9:15 PM BUSINESS CONTROL MANAGER Devin Dougherty MD LABORATORY Performing Organization Address City/[facility]/ZIP Co de Phone Number [facility] POINT OF CARE [address] [place] [address], [place] * POC GLUCOSE (11/15/2023 4:09 PM BUSINESS CONTROL MANAGER) POC Glucose 91 70 - 100 mg/dL [facility] POINT OF CARE Blood 11/15/2023 4:09 PM BUSINESS CONTROL MANAGER Devin Dougherty MD LABORATORY Performing Organization Address City/[facility] Co de Phone Number [facility] POINT OF CARE [address] [place] [address], [place] * POC GLUCOSE (11/15/2023 12:46 PM BUSINESS CONTROL MANAGER) POC Glucose 88 70 - 100 mg/dL [facility] POINT OF CARE Blood 11/15/2023 12:4 6 PM BUSINESS CONTROL MANAGER Devin Dougherty MD LABORATORY Performing Organization Address City/[facility] Co de Phone Number [facility] POINT OF CARE [address] [place] [address], [place] * PANEL BASIC METABOLIC (BMP) (11/15/2023 7:39 AM BUSINESS CONTROL MANAGER) CO2 27 22 - 30 mEq/L [facility] Glucose 96 70 - 100 mg/dL [facility] BUN 20 8 - 23 mg/dL [facility] Creatinine 0.89 0.50 - 1.00 mg/dL [facility] Calcium 9.4 8.8 - 10.2 mg/dL [facility] Sodium 142 135 - 148 mEq/L [facility] Potassium 3.7 3.5 - 5.3 mEq/L [facility] Chloride 104 92 - 108 mEq/L [facility] eGFR (2020 CKD-EPI) 65 >=60 ml/min/1.[address] [facility] Comment: The estimated glomerular filtration rate (eGFR) was calculated using the CKD-EPI 2020 creatinine equation, which does not include race as a factor. This equation is validated in individuals 18 years of age and older, and eGFR is normalized to a body surface area of 1.73m^2. AnGap 11 8 - 16 mEq/L [facility] Blood 11/15/2023 7:39 AM BUSINESS CONTROL MANAGER 11/15/2023 8:31 AM BUSINESS CONTROL MANAGER Jesusita Aiken APRN, ELECTRIC ENGINE MECHANIC LABORATO RY [facility] [place] [address] * (ABNORMAL) POC GLUCOSE (11/15/2023 6:11 AM BUSINESS CONTROL MANAGER) POC Glucose 105(H) 70 - 100 mg/dL [facility] POINT OF CARE Blood 11/15/2023 6:11 AM BUSINESS CONTROL MANAGER Devin Dougherty MD LABORATORY Performing Organization Address City/[facility] Co de Phone Number [facility] [id number], [place] * (ABNORMAL) POC GLUCOSE (11/14/2023 9:02 PM BUSINESS CONTROL MANAGER) POC Glucose 168(H) 70 - 100 mg/dL [facility] POINT OF CARE Blood 11/14/2023 9:02 PM BUSINESS CONTROL MANAGER Devin Dougherty MD LABORATORY Performing Organization Address City/[facility] Co de Phone Number [facility] POINT OF CARE [address] [place] [address], [place] * (ABNORMAL) POC GLUCOSE (11/14/2023 4:21 PM BUSINESS CONTROL MANAGER) POC Glucose 128(H) 70 - 100 mg/dL [facility] POINT OF CARE Blood 11/14/2023 4:21 PM BUSINESS CONTROL MANAGER Devin Dougherty MD LABORATORY Performing Organization Address City/[facility] Co de Phone Number [facility] POINT OF CARE [address] [place] [address], [place] * POC GLUCOSE (11/14/2023 12:19 PM BUSINESS CONTROL MANAGER) POC Glucose 84 70 - 100 mg/dL [facility] POINT OF CARE Blood 11/14/2023 12:1 9 PM BUSINESS CONTROL MANAGER Devin Dougherty MD LABORATORY Performing Organization Address City/[facility] Co de Phone Number [facility] POINT [facility] [address] [place] [address], [place] * (ABNORMAL) PANEL BASIC METABOLIC (BMP) (11/14/2023 8:59 AM BUSINESS CONTROL MANAGER) CO2 28 22 - 30 mEq/L [facility] Glucose 158(H) 70 - 100 mg/dL [facility] BUN 19 8 - 23 mg/dL [facility] Creatinine 0.79 0.50 - 1.00 mg/dL [facility] Calcium 9.3 8.8 - 10.2 mg/dL [facility] eGFR (2020 CKD-EPI) 75 >=60 ml/min/1.[address] [facility] Comment: The estimated glomerular filtration rate (eGFR) was calculated using the CKD-EPI 2020 creatinine equation, which does not include race as a factor. This equation is validated in individuals 18 years of age and older, and eGFR is normalized to a body surface area of 1.73m^2. Sodium 142 135 - 148 mEq/L [facility] Potassium 3.8 3.5 - 5.3 mEq/L [facility] Chloride 103 92 - 108 mEq/L [facility] AnGap 11 8 - 16 mEq/L [facility] Blood 11/14/2023 8:59 AM BUSINESS CONTROL MANAGER 11/14/2023 9:21 AM BUSINESS CONTROL MANAGER Jesusita Aiken APRN, ELECTRIC ENGINE MECHANIC LABORATO RY [facility] [address] [place] [id number] * (ABNORMAL) POC GLUCOSE (11/14/2023 8:11 AM BUSINESS CONTROL MANAGER) POC Glucose 139(H) 70 - 100 mg/dL [facility] POINT [facility] CARE Blood 11/14/2023 8:11 AM BUSINESS CONTROL MANAGER Devin Dougherty MD LABORATORY [facility] POINT OF CARE [address] [place] [address], [place] * (ABNORMAL) POC GLUCOSE (11/13/2023 9:15 PM BUSINESS CONTROL MANAGER) POC Glucose 120(H) 70 - 100 mg/dL [facility] POINT OF CARE Blood 11/13/2023 9:15 PM BUSINESS CONTROL MANAGER Devin Dougherty MD LABORATORY Performing Organization Address City/[facility] Co de Phone Number [facility] POINT OF [address] [address], [place] * (ABNORMAL) POC GLUCOSE (11/13/2023 4:03 PM BUSINESS CONTROL MANAGER) POC Glucose 169(H) 70 - 100 mg/dL [facility] CARE Blood 11/13/2023 4:03 PM BUSINESS CONTROL MANAGER Devin Dougherty MD LABORATORY [facility] POINT OF CARE [address] [place] [phone], [place] * (ABNORMAL) POC GLUCOSE (11/13/2023 11:21 AM BUSINESS CONTROL MANAGER) POC Glucose 166(H) 70 - 100 mg/dL [facility] CARE Blood 11/13/2023 11:2 1 AM BUSINESS CONTROL MANAGER Devin Dougherty MD LABORATORY Performing Organization Address [facility] Co de Phone Number [facility] CARE [address] [place] [address] * (ABNORMAL) PANEL BASIC METABOLIC (BMP) (11/13/2023 6:41 AM BUSINESS CONTROL MANAGER) CO2 30 22 - 30 mEq/L [facility] Glucose 121(H) 70 - 100 mg/dL [facility] BUN 24(H) 8 - 23 mg/dL [facility] Creatinine 0.87 0.50 - 1.00 mg/dL [facility] Calcium 8.9 8.8 - 10.2 mg/dL [facility] Sodium 143 135 - 148 mEq/L [facility] Potassium 3.0(L) 3.5 - 5.3 mEq/L [facility] Chloride 103 92 - 108 mEq/L [facility] eGFR (2020 CKD-EPI) 67 >=60 ml/min/1.[address] [facility] Comment: The estimated glomerular filtration rate (eGFR) was calculated using the CKD-EPI 2020 creatinine equation, which does not include race as a factor. This equation is validated in individuals 18 years of age and older, and eGFR is normalized to a body surface area of 1.73m^2. AnGap 10 8 - 16 mEq/L [facility] Blood 11/13/2023 6:41 AM BUSINESS CONTROL MANAGER 11/13/2023 7:37 AM BUSINESS CONTROL MANAGER Quinn Covarrubias MD LABORATORY Performing Organization Address [facility] Co de Phone Number [facility] [place] [address] * (ABNORMAL) POC GLUCOSE (11/13/2023 6:31 AM BUSINESS CONTROL MANAGER) POC Glucose 128(H) 70 - 100 mg/dL [facility] POINT OF CARE Blood 11/13/2023 6:31 AM BUSINESS CONTROL MANAGER Devin Dougherty MD LABORATORY Performing Organization Address City/[facility]/ZIP Co de Phone Number [facility] PO[facility] CARE [address] [place] [address], [place] * POC GLUCOSE (11/12/2023 9:21 PM BUSINESS CONTROL MANAGER) [facility] POC Glucose 97 70 - 100 mg/dL [facility] POINT OF CARE Comment:R2 <=% Blood 11/12/2023 9:21 PM BUSINESS CONTROL MANAGER Devin Dougherty MD LABORATORY Performing Organization Address [facility] Co de Phone Number [facility] POINT OF CARE [address] [place] [address], [place] * POC GLUCOSE (11/12/2023 4:12 PM BUSINESS CONTROL MANAGER) [facility] POC Glucose 89 70 - 100 mg/dL [facility] PO[facility] Blood 11/12/2023 4:12 PM BUSINESS CONTROL MANAGER Devin Dougherty MD LABORATORY Performing Organization Address [facility] Co de Phone Number [facility] POINT OF CARE [address] [place] [address], [place] * (ABNORMAL) PANEL BASIC METABOLIC (BMP) (11/12/2023 1:01 PM BUSINESS CONTROL MANAGER) [facility] Sodium 144 135 - 148 mEq/L [facility] Potassium 3.4(L) 3.5 - 5.3 mEq/L [facility] Chloride 104 92 - 108 mEq/L [facility] CO2 31(H) 22 - 30 mEq/L [facility] AnGap 9 8 - 16 mEq/L [facility] Glucose 118(H) 70 - 100 mg/dL [facility] BUN 29(H) 8 - 23 mg/dL [facility] Creatinine 0.92 0.50 - 1.00 mg/dL [facility] Calcium 9.3 8.8 - 10.2 mg/dL [facility] eGFR (2020 CKD-EPI) 63 >=60 ml/min/1.[address] [facility] Comment: The estimated glomerular filtration rate (eGFR) was calculated using the CKD-EPI 2020 creatinine equation, which does not include race as a factor. This equation is validated in individuals 18 years of age and older, and eGFR is normalized to a body surface area of 1.73m^2. Blood 11/12/2023 1:01 PM BUSINESS CONTROL MANAGER 11/12/2023 1:44 PM BUSINESS CONTROL MANAGER Quinn Covarrubias MD LABORATORY [facility] [address] [place] [address] * (ABNORMAL) POC GLUCOSE (11/12/2023 12:14 PM BUSINESS CONTROL MANAGER) POC Glucose 117(H) 70 - 100 mg/dL [facility] CARE Blood 11/12/2023 12:1 4 PM BUSINESS CONTROL MANAGER Devin Dougherty MD LABORATORY Performing Organization Address City/[facility]/ZIP Co de Phone Number [facility] PO[facility] [address] [place] [address], [place] * POC GLUCOSE (11/12/2023 6:09 AM BUSINESS CONTROL MANAGER) POC Glucose 80 70 - 100 mg/dL [facility] POINT OF CARE Blood 11/12/2023 6:09 AM BUSINESS CONTROL MANAGER Devin Dougherty MD LABORATORY Performing Organization Address City/[facility]/ZIP Co de Phone Number [facility] POINT OF CARE [address] [place] [phone], [place] * POC GLUCOSE (11/11/2023 8:48 PM BUSINESS CONTROL MANAGER) POC Glucose 99 70 - 100 mg/dL [facility] POINT OF CARE Blood 11/11/2023 8:48 PM BUSINESS CONTROL MANAGER Devin Dougherty MD LABORATORY [facility] POINT OF CARE [address] [place] [address], [place] * POC GLUCOSE (11/11/2023 4:11 PM BUSINESS CONTROL MANAGER) POC Glucose 93 70 - 100 mg/dL [facility] CARE Blood 11/11/2023 4:11 PM BUSINESS CONTROL MANAGER Devin Dougherty MD LABORATORY Performing Organization Address City/[facility]/ZIP Co de Phone Number [facility] POINT OF CARE [address] [place] [phone], [place] * POC GLUCOSE (11/11/2023 11:47 AM BUSINESS CONTROL MANAGER) Pathologist [facility] POC Glucose 89 70 - 100 mg/dL [facility] POINT OF CARE Blood 11/11/2023 11:4 7 AM BUSINESS CONTROL MANAGER Devin Dougherty MD LABORATORY Performing Organization Address City/[facility] Co de Phone Number [facility] POINT OF CARE [address] [place] [phone], [place] * PHOSPHORUS (11/11/2023 6:09 AM BUSINESS CONTROL MANAGER) Pathologist [facility] Phosphorus 3.5 2.5 - 4.5 mg/dL [facility] Blood 11/11/2023 6:09 AM BUSINESS CONTROL MANAGER 11/11/2023 6:36 AM BUSINESS CONTROL MANAGER Quinn Covarrubias MD LABORATORY Performing Organization Address City/[facility] Co de Phone Number [facility] [address] [address] * (ABNORMAL) PANEL BASIC METABOLIC (BMP) (11/11/2023 6:09 AM BUSINESS CONTROL MANAGER) Pathologist [facility] Sodium 143 135 - 148 mEq/L [facility] Potassium 3.3(L) 3.5 - 5.3 mEq/L [facility] Chloride 106 92 - 108 mEq/L [facility] AnGap 8 8 - 16 mEq/L [facility] CO2 29 22 - 30 mEq/L [facility]ucose 79 70 - 100 mg/dL [facility] BUN 30(H) 8 - 23 mg/dL [facility] Creatinine 0.83 0.50 - 1.00 mg/dL [facility] Calcium 9.0 8.8 - 10.2 mg/dL [facility] eGFR (2020 CKD-EPI) 71 >=60 ml/min/1.[address] [facility] Comment: The estimated glomerular filtration rate (eGFR) was calculated using the CKD-EPI 2020 creatinine equation, which does not include race as a factor. This equation is validated in individuals 18 years of age and older, and eGFR is normalized to a body surface area of 1.73m^2. Blood 11/11/2023 6:09 AM BUSINESS CONTROL MANAGER 11/11/2023 6:36 AM BUSINESS CONTROL MANAGER Quinn Covarrubias MD LABORATORY Performing Organization Address City/[facility] Co de Phone Number [facility] [address] [address] * MAGNESIUM (11/11/2023 6:09 AM BUSINESS CONTROL MANAGER) Pathologist [facility] Magnesium 2.2 1.6 - 2.4 mg/dL [facility] Blood 11/11/2023 6:09 AM BUSINESS CONTROL MANAGER 11/11/2023 6:36 AM BUSINESS CONTROL MANAGER Quinn Covarrubias MD LABORATORY Performing Organization Address [facility] Co de Phone Number [facility] [address] [address] * (ABNORMAL) CBC WITH PLATELET (11/11/2023 6:09 AM BUSINESS CONTROL MANAGER) WBC 5.60 4.00 - 10.00 k/cmm [facility] RBC 3.80(L) 3.90 - 5.20 m/cmm [facility] Hgb 9.5(L) 11.5 - 15.7 g/dL [facility] Hematocrit 31.4(L) 34.0 - 45.0 % [facility] MCV 82.6 80.0 - 100.[address] [facility] MCH 25.0 25.0 - 32.[address] [facility] MCHC 30.3(L) 31.0 - 36.0 g/dL [facility] RDW 16.1(H) 11.5 - 14.5 % [facility] Plt 275 150 - 400 k/cmm [facility] MPV 11.8 6.5 - 12.[address] [facility] Blood 11/11/2023 6:09 AM BUSINESS CONTROL MANAGER 11/11/2023 6:36 AM BUSINESS CONTROL MANAGER Quinn Covarrubias MD LABORATORY [facility] [address] [place] [address] * POC GLUCOSE (11/10/2023 8:58 PM BUSINESS CONTROL MANAGER) POC Glucose 82 70 - 100 mg/dL [facility]ARE Blood 11/10/2023 8:58 PM BUSINESS CONTROL MANAGER Devin Dougherty MD LABORATORY Performing Organization Address City/[facility]/ZIP Co de Phone Number [facility]ARE [address] [place] [address], [place] * (ABNORMAL) POC GLUCOSE (11/10/2023 4:16 PM BUSINESS CONTROL MANAGER) POC Glucose 110(H) 70 - 100 mg/dL [facility] POINT OF CARE Blood 11/10/2023 4:16 PM BUSINESS CONTROL MANAGER Devin Dougherty MD LABORATORY Performing Organization Address [facility] Co de Phone Number [facility] PO[facility] [address] [place] [phone], [place] * POC GLUCOSE (11/10/2023 11:15 AM BUSINESS CONTROL MANAGER) POC Glucose 93 70 - 100 mg/dL [facility] POINT [facility] CARE Blood 11/10/2023 11:1 5 AM BUSINESS CONTROL MANAGER Devin Dougherty MD LABORATORY [facility] POINT CARE [address] [place] [address], [place] * PHOSPHORUS (11/10/2023 6:17 AM BUSINESS CONTROL MANAGER) Phosphorus 3.8 2.5 - 4.5 mg/dL [facility] Blood 11/10/2023 6:17 AM BUSINESS CONTROL MANAGER 11/10/2023 6:32 AM BUSINESS CONTROL MANAGER Quinn Covarrubias MD LABORATORY Performing Organization Address City/[facility] Co de Phone Number [facility] [address] [address] * (ABNORMAL) PANEL BASIC METABOLIC (BMP) (11/10/2023 6:17 AM BUSINESS CONTROL MANAGER) Sodium 145 135 - 148 mEq/L [facility] Potassium 3.6 3.5 - 5.3 mEq/L [facility] Chloride 107 92 - 108 mEq/L [facility] CO2 27 22 - 30 mEq/L [facility] Glucose 109(H) 70 - 100 mg/dL [facility] BUN 40(H) 8 - 23 mg/dL [facility] Creatinine 1.15(H) 0.50 - 1.00 mg/dL [facility] Calcium 9.1 8.8 - 10.2 mg/dL [facility] AnGap 11 8 - 16 mEq/L [facility] eGFR (2020 CKD-EPI) 48(L) >=60 ml/min/1.[address] [facility] Comment: The estimated glomerular filtration rate (eGFR) was calculated using the CKD-EPI 2020 creatinine equation, which does not include race as a factor. This equation is validated in individuals 18 years of age and older, and eGFR is normalized to a body surface area of 1.73m^2. Blood 11/10/2023 6:17 AM BUSINESS CONTROL MANAGER 11/10/2023 6:32 AM BUSINESS CONTROL MANAGER Quinn Covarrubias MD LABORATORY Performing Organization Address City/[facility]/ZIP Co de Phone Number [facility] [address] [address] * MAGNESIUM (11/10/2023 6:17 AM BUSINESS CONTROL MANAGER) Magnesium 2.3 1.6 - 2.4 mg/dL [facility] Blood 11/10/2023 6:17 AM BUSINESS CONTROL MANAGER 11/10/2023 6:32 AM BUSINESS CONTROL MANAGER Quinn Covarrubias MD LABORATORY Performing Organization Address City/[facility]/ZIP Co de Phone Number [facility] [address] [address] * (ABNORMAL) CBC WITH PLATELET (11/10/2023 6:17 AM BUSINESS CONTROL MANAGER) Pathologist [facility] WBC 6.82 4.00 - 10.00 k/cmm [facility] RBC 3.64(L) 3.90 - 5.20 m/cmm [facility] Hgb 9.1(L) 11.5 - 15.7 g/dL [facility] Hematocrit 30.3(L) 34.0 - 45.0 % [facility] MCV 83.2 80.0 - 100.[address] [facility] MCH 25.0 25.0 - 32.[address] [facility] MCHC 30.0(L) 31.0 - 36.0 g/dL [facility] RDW 16.1(H) 11.5 - 14.5 % [facility] Plt 259 150 - 400 k/cmm [facility] MPV 11.8 6.5 - 12.[address] [facility] Blood 11/10/2023 6:17 AM BUSINESS CONTROL MANAGER 11/10/2023 6:32 AM BUSINESS CONTROL MANAGER Quinn Covarrubias MD LABORATORY Performing Organization Address [facility]/ZIP Co de Phone Number [facility] [address] [address] * (ABNORMAL) POC GLUCOSE (11/09/2023 9:41 PM BUSINESS CONTROL MANAGER) Pathologist [facility] POC Glucose 136(H) 70 - 100 mg/dL [facility] POINT OF CARE Blood 11/09/2023 9:41 PM BUSINESS CONTROL MANAGER Devin Dougherty MD LABORATORY [facility] POINT OF CARE [address] [place] [phone], [place] * (ABNORMAL) POC GLUCOSE (11/09/2023 3:58 PM BUSINESS CONTROL MANAGER) Pathologist [facility] POC Glucose 157(H) 70 - 100 mg/dL [facility] POINT OF CARE Blood 11/09/2023 3:58 PM BUSINESS CONTROL MANAGER Devin Dougherty MD LABORATORY Performing Organization Address [facility] Co de Phone Number [facility] PO[facility] [address] [place] [phone], [place] * ANTI XA ASSAY LMW HEPARIN (11/09/2023 2:18 PM BUSINESS CONTROL MANAGER) Anti XA LMW 0.32 IU/mL [facility] Comment: Anti Xa Assay LMW Heparin Therapeutic Ranges: 0.4-1.1 IU/mL for twice daily 1.0-2.0 IU/mL for once daily Blood 11/09/2023 2:18 PM BUSINESS CONTROL MANAGER 11/09/2023 2:29 PM BUSINESS CONTROL MANAGER Quinn Covarrubias MD LABORATORY Performing Organization Address [facility] Co de Phone Number [facility] [address] [address] * (ABNORMAL) POC GLUCOSE (11/09/2023 11:28 AM BUSINESS CONTROL MANAGER) POC Glucose 174(H) 70 - 100 mg/dL [facility] POINT OF CARE Blood 11/09/2023 11:2 8 AM BUSINESS CONTROL MANAGER Devin Dougherty MD LABORATORY Performing Organization Address [facility] Co de Phone Number [facility] POINT OF CARE [address] [place] [address], [place] * XR FOOT RIGHT 3 V AP/OBL/LAT* (11/09/2023 10:36 AM BUSINESS CONTROL MANAGER) Anatomical Region Laterality Modality Foot Computed Radiogr aphy 11/09/2023 10:4 7 AM BUSINESS CONTROL MANAGER Impressions 11/09/2023 10:50 AM BUSINESS CONTROL MANAGER Impression: No acute osseous abnormality. Generalized osteopenia. Reading Radiologist: Angela Camp Narrative 11/09/2023 10:50 AM BUSINESS CONTROL MANAGER Technique: XR FOOT RIGHT 3 V [...] osteopenia. Reading Radiologist: Angela Camp Jesusita Aiken CONFIGURATION MANAGEMENT MANAGER, ELECTRIC ENGINE MECHANIC RAD XRAY * POC GLUCOSE (11/09/2023 5:46 AM BUSINESS CONTROL MANAGER) [facility] Signature POC Glucose 97 70 - 100 mg/dL [facility] CARE Blood 11/09/2023 5:46 AM BUSINESS CONTROL MANAGER Devin Dougherty MD LABORATORY Performing Organization Address City/[facility]/ZIP Co de Phone Number [facility]ARE [address] [place] [address] * (ABNORMAL) VALPROATE (DEPAKOTE) LEVEL (11/09/2023 5:41 AM BUSINESS CONTROL MANAGER) Valproate 31.8(L) 50.0 - 100.0 mcg/mL [facility] Blood 11/09/2023 5:41 AM BUSINESS CONTROL MANAGER 11/09/2023 8:19 AM BUSINESS CONTROL MANAGER Quinn Covarrubias MD LABORATORY [facility] [place] [address] * PHOSPHORUS (11/09/2023 5:41 AM BUSINESS CONTROL MANAGER) Phosphorus 3.9 2.5 - 4.5 mg/dL [facility] Blood 11/09/2023 5:41 AM BUSINESS CONTROL MANAGER 11/09/2023 6:38 AM BUSINESS CONTROL MANAGER Quinn Covarrubias MD LABORATORY Performing Organization Address [facility] Co de Phone Number [facility] [address] [address] * (ABNORMAL) PANEL BASIC METABOLIC (BMP) (11/09/2023 5:41 AM BUSINESS CONTROL MANAGER) Sodium 142 135 - 148 mEq/L [facility] Potassium 3.1(L) 3.5 - 5.3 mEq/L [facility] Chloride 105 92 - 108 mEq/L [facility] CO2 30 22 - 30 mEq/L [facility] Glucose 91 70 - 100 mg/dL [facility] BUN 23 8 - 23 mg/dL [facility] Creatinine 1.09(H) 0.50 - 1.00 mg/dL [facility] Calcium 8.8 8.8 - 10.2 mg/dL [facility] AnGap 7(L) 8 - 16 mEq/L [facility] eGFR (2020 CKD-EPI) 51(L) >=60 ml/min/1.[address] [facility] Comment: The estimated glomerular filtration rate (eGFR) was calculated using the CKD-EPI 2020 creatinine equation, which does not include race as a factor. This equation is validated in individuals 18 years of age and older, and eGFR is normalized to a body surface area of 1.73m^2. Blood 11/09/2023 5:41 AM BUSINESS CONTROL MANAGER 11/09/2023 6:38 AM BUSINESS CONTROL MANAGER Quinn Covarrubias MD LABORATORY Performing Organization Address [facility] Co de Phone Number [facility] [address] [address] * MAGNESIUM (11/09/2023 5:41 AM BUSINESS CONTROL MANAGER) Magnesium 2.1 1.6 - 2.4 mg/dL [facility] Blood 11/09/2023 5:41 AM BUSINESS CONTROL MANAGER 11/09/2023 6:38 AM BUSINESS CONTROL MANAGER Quinn Covarrubias MD LABORATORY Performing Organization Address [facility] Co de Phone Number [facility] [address] [address] * (ABNORMAL) CBC WITH PLATELET (11/09/2023 5:41 AM BUSINESS CONTROL MANAGER) Pathologist [facility] WBC 6.97 4.00 - 10.00 k/cmm [facility] RBC 3.42(L) 3.90 - 5.20 m/cmm [facility] Hgb 8.8(L) 11.5 - 15.7 g/dL [facility] Hematocrit 28.4(L) 34.0 - 45.0 % [facility] MCV 83.0 80.0 - 100.[address] [facility] MCH 25.7 25.0 - 32.[address] [facility] MCHC 31.0 31.0 - 36.0 g/dL [facility] RDW 16.0(H) 11.5 - 14.5 % [facility] Plt 227 150 - 400 k/cmm [facility] MPV 12.0 6.5 - 12.[address] [facility] Blood 11/09/2023 5:41 AM BUSINESS CONTROL MANAGER 11/09/2023 6:38 AM BUSINESS CONTROL MANAGER Quinn Covarrubias MD LABORATORY [facility] [place] [address] * (ABNORMAL) POC GLUCOSE (11/08/2023 8:40 PM BUSINESS CONTROL MANAGER) [facility] POC Glucose 125(H) 70 - 100 mg/dL [facility] Blood 11/08/2023 8:40 PM BUSINESS CONTROL MANAGER Devin Dougherty MD LABORATORY [facility] CARE [address] [place] [address], * PHOSPHORUS (11/08/2023 4:20 PM BUSINESS CONTROL MANAGER) Pathologist [facility] Phosphorus 3.5 2.5 - 4.5 mg/dL [facility] Blood 11/08/2023 4:20 PM BUSINESS CONTROL MANAGER 11/08/2023 4:38 PM BUSINESS CONTROL MANAGER Jesusita K EMILY Aiken APRNNATE RY Performing Organization Address [facility] Co de Phone Number [facility] [address] [place] [phone] * MAGNESIUM (11/08/2023 4:20 PM BUSINESS CONTROL MANAGER) Magnesium 2.0 1.6 - 2.4 mg/dL [facility] Blood 11/08/2023 4:20 PM BUSINESS CONTROL MANAGER 11/08/2023 4:38 PM BUSINESS CONTROL MANAGER Jesusita Wild Nelli CHO EMILY MORENOATO RY Performing Organization Address [facility] de Phone Number [facility] [address] [address] * (ABNORMAL) PANEL BASIC METABOLIC (BMP) (11/08/2023 4:20 PM BUSINESS CONTROL MANAGER) Sodium 142 135 - 148 mEq/L [facility] Potassium 3.4(L) 3.5 - 5.3 mEq/L [facility] Chloride 105 92 - 108 mEq/L [facility] CO2 28 22 - 30 mEq/L [facility] AnGap 9 8 - 16 mEq/L [facility] Glucose 149(H) 70 - 100 mg/dL [facility] BUN 17 8 - 23 mg/dL [facility] Creatinine 0.82 0.50 - 1.00 mg/dL [facility] Calcium 8.9 8.8 - 10.2 mg/dL [facility] eGFR (2020 CKD-EPI) 72 >=60 ml/min/1.[address] [facility] Comment: The estimated glomerular filtration rate (eGFR) was calculated using the CKD-EPI 2020 creatinine equation, which does not include race as a factor. This equation is validated in individuals 18 years of age and older, and eGFR is normalized to a body surface area of 1.73m^2. Blood 11/08/2023 4:20 PM BUSINESS CONTROL MANAGER 11/08/2023 4:38 PM BUSINESS CONTROL MANAGER Jesusita K Nelli CHO CNP JOSHATO RY Performing Organization Address City/[facility]/ZIP Co de Phone Number [facility] [address] [address] * (ABNORMAL) CBC WITH PLATELET (11/08/2023 4:20 PM BUSINESS CONTROL MANAGER) [facility] WBC 8.46 4.00 - 10.00 k/cmm [facility] RBC 3.65(L) 3.90 - 5.20 m/cmm [facility] Hgb 9.1(L) 11.5 - 15.7 g/dL [facility] Hematocrit 30.2(L) 34.0 - 45.0 % [facility] MCV 82.7 80.0 - 100.[address] [facility] MCH 24.9(L) 25.0 - 32.[address] [facility] MCHC 30.1(L) 31.0 - 36.0 g/dL [facility] RDW 16.0(H) 11.5 - 14.5 % [facility] Plt 227 150 - 400 k/cmm [facility] MPV 11.7 6.5 - 12.[address] [facility] Blood 11/08/2023 4:20 PM BUSINESS CONTROL MANAGER 11/08/2023 4:38 PM BUSINESS CONTROL MANAGER EMILY Martinez APRNABRAZO [facility] RY Performing Organization Address City/[facility]/ZIP Co de Phone Number [address] [address] * (ABNORMAL) POC GLUCOSE (11/08/2023 3:56 PM BUSINESS CONTROL MANAGER) [facility] POC Glucose 150(H) 70 - 100 mg/dL [facility] POINT OF CARE Blood 11/08/2023 3:56 PM BUSINESS CONTROL MANAGER Devin Dougherty MD LABORATORY Performing Organization Address City/[facility]/ZIP Co de Phone Number [facility] POINT OF CARE [address] [place] [address] * (ABNORMAL) POC GLUCOSE (11/08/2023 11:03 AM BUSINESS CONTROL MANAGER) [facility] POC Glucose 162(H) 70 - 100 mg/dL [facility] POINT OF CARE Blood 11/08/2023 11:0 3 AM BUSINESS CONTROL MANAGER Devin Dougherty MD LABORATORY [facility] POINT OF CARE [address] [place] [address], [place] * XR CHEST 1 VIEW AP OR PA* (11/08/2023 6:30 AM BUSINESS CONTROL MANAGER) Anatomical Region Laterality Modality Chest Computed Radiogr aphy 11/08/2023 6:56 AM BUSINESS CONTROL MANAGER Impressions 11/08/2023 7:24 AM BUSINESS CONTROL MANAGER Impression: Stable chest. I have personally reviewed the image(s) and initial interpretation, and I agree with the findings as documented by the resident/fellow. Reading Radiologist: Ronal Hidalgo Reading Resident: Laith Berkowitz Narrative 11/08/2023 7:24 AM BUSINESS CONTROL MANAGER Technique: XR CHEST 1 VIEW AP [...] (ABNORMAL) POC GLUCOSE (11/08/2023 6:22 AM BUSINESS CONTROL MANAGER) POC Glucose 126(H) 70 - 100 mg/dL [facility] CARE Blood 11/08/2023 6:22 AM BUSINESS CONTROL MANAGER Devin Dougherty MD LABORATORY [facility] POINT OF CARE [address] [place] [address], [place] * (ABNORMAL) POC GLUCOSE (11/07/2023 9:34 PM BUSINESS CONTROL MANAGER) POC Glucose 109(H) 70 - 100 mg/dL [facility] PO[facility] CARE Blood 11/07/2023 9:34 PM BUSINESS CONTROL MANAGER Devin Dougherty MD LABORATORY Performing Organization Address City/[facility]/ZIP Co de Phone Number [facility] POINT OF CARE [address] [place] [address], [place] * (ABNORMAL) POC GLUCOSE (11/07/2023 4:06 PM BUSINESS CONTROL MANAGER) POC Glucose 160(H) 70 - 100 mg/dL [facility] Blood 11/07/2023 4:06 PM BUSINESS CONTROL MANAGER Devin Dougherty MD LABORATORY Performing Organization Address [facility] Co de Phone Number [facility] [address] [place] [address], [place] * (ABNORMAL) POC GLUCOSE (11/07/2023 11:45 AM BUSINESS CONTROL MANAGER) POC Glucose 107(H) 70 - 100 mg/dL [facility] Blood 11/07/2023 11:4 5 AM BUSINESS CONTROL MANAGER Devin Dougherty MD LABORATORY Performing Organization Address City/[facility] Co de Phone Number [facility] POINT OF CARE [address] [place] [address], [place] * XR CHEST 2 VIEWS PA + LAT* (11/07/2023 10:07 AM BUSINESS CONTROL MANAGER) Anatomical Region Laterality Modality Chest Computed Radiogr aphy 11/07/2023 10:0 9 AM BUSINESS CONTROL MANAGER Impressions 11/07/2023 10:10 AM BUSINESS CONTROL MANAGER Impression: New left basilar opacities with small effusion concerning for developing infection. Reading Radiologist: Phil Contreras Narrative 11/07/2023 10:10 AM BUSINESS CONTROL MANAGER Technique: XR CHEST 2 VIEWS PA + LAT* Indication: suspicion for pneumonia ?? Comparison: 11/04/2023 Findings: Cardiac size and pulmonary vascularity are within normal limits. There are coarsened opacities in the left lung base with a small effusion present. Procedure Note Phli Contreras, DO - 11/07/2023 Technique: XR CHEST [...] XRAY * PROCALCITONIN (11/07/2023 8:34 AM BUSINESS CONTROL MANAGER) Procalcitonin 0.12 ng/mL [facility] Comment: Results <0.50 ng/mL represent a low risk of severe sepsis and/or septic shock. Results >2.0 ng/mL represent a high risk of severe sepsis and/or septic shock. Blood 11/07/2023 8:34 AM BUSINESS CONTROL MANAGER 11/07/2023 8:40 AM BUSINESS CONTROL MANAGER Quinn Covarrubias MD LABORATORY [facility] [address] [id number] * (ABNORMAL) CBC WITH PLATELET (11/07/2023 8:34 AM BUSINESS CONTROL MANAGER) WBC 7.45 4.00 - 10.00 k/cmm [facility] RBC 3.49(L) 3.90 - 5.20 m/cmm [facility] Hgb 8.8(L) 11.5 - 15.7 g/dL [facility] Hematocrit 29.0(L) 34.0 - 45.0 % [facility] MCV 83.1 80.0 - 100.[address] [facility] MCH 25.2 25.0 - 32.[address] [facility] MCHC 30.3(L) 31.0 - 36.0 g/dL [facility] RDW 15.9(H) 11.5 - 14.5 % [facility] Plt 249 150 - 400 k/cmm [facility] MPV 11.0 6.5 - 12.[address] [facility] Blood 11/07/2023 8:34 AM BUSINESS CONTROL MANAGER 11/07/2023 8:40 AM BUSINESS CONTROL MANAGER Quinn Covarrubias MD LABORATORY Performing Organization Address [facility] Co de Phone Number [facility] [address] [address] * (ABNORMAL) PANEL BASIC METABOLIC (BMP) (11/07/2023 8:34 AM BUSINESS CONTROL MANAGER) Sodium 145 135 - 148 mEq/L [facility] Potassium 3.5 3.5 - 5.3 mEq/L [facility] Chloride 111(H) 92 - 108 mEq/L [facility] CO2 26 22 - 30 mEq/L [facility] AnGap 8 8 - 16 mEq/L [facility] Glucose 108(H) 70 - 100 mg/dL [facility] BUN 15 8 - 23 mg/dL [facility] Creatinine 0.90 0.50 - 1.00 mg/dL [facility] Calcium 8.8 8.8 - 10.2 mg/dL [facility] eGFR (2020 CKD-EPI) 64 >=60 ml/min/1.[address] [facility] Comment: The estimated glomerular filtration rate (eGFR) was calculated using the CKD-EPI 2020 creatinine equation, which does not include race as a factor. This equation is validated in individuals 18 years of age and older, and eGFR is normalized to a body surface area of 1.73m^2. Blood 11/07/2023 8:34 AM BUSINESS CONTROL MANAGER 11/07/2023 8:40 AM BUSINESS CONTROL MANAGER Quinn Covarrubias MD LABORATORY Performing Organization Address City/[facility]/ZIP Co de Phone Number [facility] [address] [address] * MAGNESIUM (11/07/2023 8:34 AM BUSINESS CONTROL MANAGER) Magnesium 2.3 1.6 - 2.4 mg/dL [facility] Blood 11/07/2023 8:34 AM BUSINESS CONTROL MANAGER 11/07/2023 8:40 AM BUSINESS CONTROL MANAGER Quinn Covarrubias MD LABORATORY Performing Organization Address City/[facility] [place] [address] * (ABNORMAL) PHOSPHORUS (11/07/2023 8:34 AM BUSINESS CONTROL MANAGER) Phosphorus 5.0(H) 2.5 - 4.5 mg/dL [facility] Blood 11/07/2023 8:34 AM BUSINESS CONTROL MANAGER 11/07/2023 8:40 AM BUSINESS CONTROL MANAGER Quinn Covarrubias MD LABORATORY Performing Organization Address [facility] [place] [address] * (ABNORMAL) POC GLUCOSE (11/07/2023 5:45 AM BUSINESS CONTROL MANAGER) POC Glucose 115(H) 70 - 100 mg/dL [facility] Blood 11/07/2023 5:45 AM BUSINESS CONTROL MANAGER Devin Dougherty MD LABORATORY Performing Organization Address City/[facility] Co de Phone Number [facility] [address] [place] [address] * (ABNORMAL) POC GLUCOSE (11/06/2023 9:21 PM BUSINESS CONTROL MANAGER) POC Glucose 149(H) 70 - 100 mg/dL [facility] Blood 11/06/2023 9:21 PM BUSINESS CONTROL MANAGER Devin Dougherty MD LABORATORY Performing Organization Address City/[facility] Co de Phone Number [facility] [place] [address], [place] * (ABNORMAL) BLOOD GASES (11/06/2023 1:06 PM BUSINESS CONTROL MANAGER) PH Jalen 7.36 7.32 - 7.42 [facility] PCO2 Jalen 48 41 - [address] [facility] PO2 Jalen 86(H) 25 - [address] [facility] Bicarb Jalen 26 24 - 28 mEq/L [facility] O2 Sat Jalen 96 % [facility] Base Exc Jalen 1.0 -10.0 - 2.0 mEq/L [facility] Blood Venous 11/06/2023 1:06 PM BUSINESS CONTROL MANAGER 11/06/2023 1:10 PM BUSINESS CONTROL MANAGER Narrative [facility] - 11/06/2023 1:16 PM BUSINESS CONTROL MANAGER Draw on Room Air: No O2 LPM (liter/min) Level->4 via mask FiO2 Level: 100 Quinn Covarrubias MD LABORATORY Performing Organization Address City/[facility]/ZIP Co de Phone Number [address] [address] * MAGNESIUM (11/06/2023 1:06 PM BUSINESS CONTROL MANAGER) Magnesium 2.4 1.6 - 2.4 mg/dL [facility] Blood 11/06/2023 1:06 PM BUSINESS CONTROL MANAGER 11/06/2023 1:22 PM BUSINESS CONTROL MANAGER Quinn Covarrubias MD LABORATORY Performing Organization Address City/[facility]/ZIP Co de Phone Number [address] [address] * PHOSPHORUS (11/06/2023 1:06 PM BUSINESS CONTROL MANAGER) Phosphorus 4.2 2.5 - 4.5 mg/dL [facility] Blood 11/06/2023 1:06 PM BUSINESS CONTROL MANAGER 11/06/2023 1:22 PM BUSINESS CONTROL MANAGER Quinn Covarrubias MD LABORATORY Performing Organization Address City/[facility]/ZIP Co de Phone Number [address] [address] * (ABNORMAL) PANEL BASIC METABOLIC (BMP) (11/06/2023 1:06 PM BUSINESS CONTROL MANAGER) Sodium 141 135 - 148 mEq/L [facility] Potassium 3.8 3.5 - 5.3 mEq/L [facility] Chloride 108 92 - 108 mEq/L [facility] CO2 27 22 - 30 mEq/L [facility] AnGap 6(L) 8 - 16 mEq/L [facility] Glucose 184(H) 70 - 100 mg/dL [facility] BUN 15 8 - 23 mg/dL [facility] Creatinine 0.91 0.50 - 1.00 mg/dL [facility] Calcium 8.7(L) 8.8 - 10.2 mg/dL [facility] eGFR (2020 CKD-EPI) 63 >=60 ml/min/1.[address] [facility] Comment: The estimated glomerular filtration rate (eGFR) was calculated using the CKD-EPI 2020 creatinine equation, which does not include race as a factor. This equation is validated in individuals 18 years of age and older, and eGFR is normalized to a body surface area of 1.73m^2. Blood 11/06/2023 1:06 PM BUSINESS CONTROL MANAGER 11/06/2023 1:22 PM BUSINESS CONTROL MANAGER Quinn Covarrubias MD LABORATORY [facility] [address] [address] * (ABNORMAL) CBC WITH PLATELET (11/06/2023 1:06 PM BUSINESS CONTROL MANAGER) WBC 10.82(H) 4.00 - 10.00 k/cmm [facility] RBC 3.58(L) 3.90 - 5.20 m/cmm [facility] Hgb 9.1(L) 11.5 - 15.7 g/dL [facility] Hematocrit 29.6(L) 34.0 - 45.0 % [facility] MCV 82.7 80.0 - 100.[address] [facility] MCH 25.4 25.0 - 32.[address] [facility] MCHC 30.7(L) 31.0 - 36.0 g/dL [facility] RDW 15.8(H) 11.5 - 14.5 % [facility] Plt 253 150 - 400 k/cmm [facility] MPV 11.3 6.5 - 12.[address] [facility] Blood 11/06/2023 1:06 PM BUSINESS CONTROL MANAGER 11/06/2023 1:21 PM BUSINESS CONTROL MANAGER Quinn Covarrubias MD LABORATORY Performing Organization Address [facility] Co de Phone Number [facility] [place] [address] * (ABNORMAL) POC GLUCOSE (11/06/2023 1:04 PM BUSINESS CONTROL MANAGER) POC Glucose 173(H) 70 - 100 mg/dL [facility] Blood 11/06/2023 1:04 PM BUSINESS CONTROL MANAGER Devin Dougherty MD LABORATORY Performing Organization Address [facility] Co de Phone Number [facility] [place] [address], * (ABNORMAL) POC GLUCOSE (11/06/2023 10:49 AM BUSINESS CONTROL MANAGER) POC Glucose 257(H) 70 - 100 mg/dL [facility] Blood 11/06/2023 10:4 9 AM BUSINESS CONTROL MANAGER Devin Dougherty MD LABORATORY Performing Organization Address [facility] de Phone Number [facility] [address] * (ABNORMAL) GLYCOSYLATED HGB - A1C (11/06/2023 6:31 AM BUSINESS CONTROL MANAGER) Hemoglobin A1C 8.1(H) 4.0 - 5.6 % [facility] Comment: Increased risk for diabetes (prediabetes): 5.7-6.4% Diabetes: greater than or equal to 6.5% * * In the absence of unequivocal hyperglycemia, diagnosis requires two abnormal test results (i.e. HbA1c and glucose) or two abnormal results from specimens collected at two different timepoints. Estimated Average Glucose 186(H) 68 - 114 [facility] Comment: The ADA recommends reporting an estimated Average Glucose (eAG) with all hemoglobin A1c results using the equation derived from a study of 501 normal diabetic adults. Minority populations were underrepresented and children were not included. The EAG is not equivalent to a fasting glucose. Blood 11/06/2023 6:31 AM BUSINESS CONTROL MANAGER 11/06/2023 11:28 AM BUSINESS CONTROL MANAGER Quinn Covarrubias MD LABORATORY Performing Organization Address [facility] Co de Phone Number [facility] [address] [address] * ICU PHOSPHORUS (11/06/2023 6:31 AM BUSINESS CONTROL MANAGER) Phosphorus 4.1 2.5 - 4.5 mg/dL [facility] Blood 11/06/2023 6:31 AM BUSINESS CONTROL MANAGER 11/06/2023 7:37 AM BUSINESS CONTROL MANAGER Devin Dougherty MD LABORATORY Performing Organization Address [facility] de Phone Number [facility] [address] [address] * (ABNORMAL) ICU MAGNESIUM (11/06/2023 6:31 AM BUSINESS CONTROL MANAGER) Magnesium 2.5(H) 1.6 - 2.4 mg/dL [facility] Blood 11/06/2023 6:31 AM BUSINESS CONTROL MANAGER 11/06/2023 7:37 AM BUSINESS CONTROL MANAGER Devin Dougherty MD LABORATORY Performing Organization Address [facility] de Phone Number [facility] [address] [address] * (ABNORMAL) ICU CBC WITH PLATELET (11/06/2023 6:31 AM BUSINESS CONTROL MANAGER) WBC 9.06 4.00 - 10.00 k/cmm [facility] RBC 3.77(L) 3.90 - 5.20 m/cmm [facility] Hgb 9.6(L) 11.5 - 15.7 g/dL [facility] Hematocrit 30.8(L) 34.0 - 45.0 % [facility] MCV 81.7 80.0 - 100.[address] [facility] MCH 25.5 25.0 - 32.[address] [facility] MCHC 31.2 31.0 - 36.0 g/dL [facility] RDW 15.9(H) 11.5 - 14.5 % [facility] Plt 284 150 - 400 k/cmm [facility] MPV 12.1 6.5 - 12.[address] [facility] Blood 11/06/2023 6:31 AM BUSINESS CONTROL MANAGER 11/06/2023 7:37 AM BUSINESS CONTROL MANAGER Devin Dougherty MD LABORATORY Performing Organization Address City/State/[facility] Co de Phone Number [facility] [address] [address] * (ABNORMAL) ICU PANEL BASIC METABOLIC (BMP) (11/06/2023 6:31 AM BUSINESS CONTROL MANAGER) Sodium 142 135 - 148 mEq/L [facility] Potassium 3.7 3.5 - 5.3 mEq/L [facility] Chloride 107 92 - 108 mEq/L [facility] CO2 26 22 - 30 mEq/L [facility] AnGap 9 8 - 16 mEq/L [facility] Glucose 148(H) 70 - 100 mg/dL [facility] BUN 12 8 - 23 mg/dL [facility] Creatinine 0.77 0.50 - 1.00 mg/dL [facility] Calcium 8.7(L) 8.8 - 10.2 mg/dL [facility] eGFR (2020 CKD-EPI) 77 >=60 ml/min/1.[address] [facility] Comment: The estimated glomerular filtration rate (eGFR) was calculated using the CKD-EPI 2020 creatinine equation, which does not include race as a factor. This equation is validated in individuals 18 years of age and older, and eGFR is normalized to a body surface area of 1.73m^2. Blood 11/06/2023 6:31 AM BUSINESS CONTROL MANAGER 11/06/2023 7:37 AM BUSINESS CONTROL MANAGER Devin Dougherty MD LABORATORY Performing Organization Address City/State/[facility] Co de Phone Number [facility] [address] [address] * PROTHROMBIN (PT) & INR (11/06/2023 6:31 AM BUSINESS CONTROL MANAGER) Pathologist [facility] PT 11.4 9.0 - 12.[address] [facility] INR 1.0 0.8 - 1.1 [facility] Comment: Warfarin Therapeutic Range: Standard Intensity: 2.0 - 3.0 High Intensity: 2.5 - 3.5 Blood 11/06/2023 6:31 AM BUSINESS CONTROL MANAGER 11/06/2023 7:37 AM BUSINESS CONTROL MANAGER Quinn Covarrubias MD LABORATORY Performing Organization Address [facility] Co de Phone Number [address] [address] * (ABNORMAL) POC GLUCOSE (11/06/2023 5:39 AM BUSINESS CONTROL MANAGER) Pathologist [facility] POC Glucose 149(H) 70 - 100 mg/dL [facility] Blood 11/06/2023 5:39 AM BUSINESS CONTROL MANAGER Devin Dougherty MD LABORATORY Performing Organization Address [facility] Co de Phone Number [facility] PO[facility] OF [address] [address], * (ABNORMAL) POC GLUCOSE (11/05/2023 4:54 PM BUSINESS CONTROL MANAGER) Pathologist [facility] POC Glucose 170(H) 70 - 100 mg/dL [facility] Blood 11/05/2023 4:54 PM BUSINESS CONTROL MANAGER Devin Dougherty MD LABORATORY Performing Organization Address City/[facility] Co de Phone Number [facility] PO[facility] OF [address] [address], * (ABNORMAL) MAGNESIUM (11/05/2023 4:48 PM BUSINESS CONTROL MANAGER) Magnesium 2.8(H) 1.6 - 2.4 mg/dL [facility] Blood 11/05/2023 4:48 PM BUSINESS CONTROL MANAGER 11/05/2023 4:58 PM BUSINESS CONTROL MANAGER Quinn Covarrubias MD LABORATORY [facility] [address] [address] * (ABNORMAL) POTASSIUM (11/05/2023 4:48 PM BUSINESS CONTROL MANAGER) Potassium 3.2(L) 3.5 - 5.3 mEq/L [facility] Blood 11/05/2023 4:48 PM BUSINESS CONTROL MANAGER 11/05/2023 4:58 PM BUSINESS CONTROL MANAGER Quinn Covarrubias MD LABORATORY Performing Organization Address [facility] Co de Phone Number [facility] [address] [address] * CT HEAD NO IV CONTRAST (11/05/2023 11:44 AM BUSINESS CONTROL MANAGER) Anatomical Region Laterality Modality Skull Computed Tomogra phy 11/05/2023 12:1 6 PM BUSINESS CONTROL MANAGER Impressions 11/05/2023 12:38 PM BUSINESS CONTROL MANAGER Impression: Stable head CT as compared to the study performed 7 hours earlier. Intra-axial and extra-axial hemorrhage(s) without midline shift or hydrocephalus. The basal cisterns are patent. Reading Radiologist: Ford Fernández 11/05/2023 12:38 PM BUSINESS CONTROL MANAGER Exam: Head CT without contrast, 11/05/2023 [...] (ABNORMAL) POC GLUCOSE (11/05/2023 11:11 AM BUSINESS CONTROL MANAGER) POC Glucose 201(H) 70 - 100 mg/dL [facility] CARE Blood 11/05/2023 11:1 1 AM BUSINESS CONTROL MANAGER Devin Dougherty MD LABORATORY Performing Organization Address City/[facility]/ZIP Co de Phone Number [facility] POINT [facility] CARE [address] [place] [address], * EKG ADULT (12-LEAD) (11/05/2023 6:38 AM BUSINESS CONTROL MANAGER) 11/05/2023 6:38 AM BUSINESS CONTROL MANAGER Impressions [facility] CVIS EKG ORDERS - 11/05/2023 6:38 AM BUSINESS CONTROL MANAGER SINUS RHYTHM RIGHT BUNDLE BRANCH BLOCK ??[120+ ms QRS DURATION, UPRIGHT V1, 40+ ms S IN I/aVL/V4/V5/V6] ABNORMAL ECG P-R Interval 151 ms QRS Interval 128 ms QT Interval 420 ms QTC Interval 462 ms P [place] 9 QRS [place] 27 T Wave [place] 70 Narrative Procedure Note Lauren Mills MD - 11/06/2023 IMPRESSION SINUS RHYTHM RIGHT BUNDLE BRANCH BLOCK [120+ ms QRS DURATION, UPRIGHT V1, 40+ ms S INI/aVL/V4/V5/V6] ABNORMAL ECG P-R Interval 151 ms QRS Interval 128 ms QT Interval 420 ms QTC Interval 462 ms P [place] 9 QRS [place] 27 T Wave [place] 70 Quinn Covarrubias MD EKG Performing Organization Address City/[facility]/ZIP Co de Phone Number [facility] CVIS EKG ORDERS * (ABNORMAL) POC GLUCOSE (11/05/2023 6:07 AM BUSINESS CONTROL MANAGER) POC Glucose 188(H) 70 - 100 mg/dL [facility] CARE Blood 11/05/2023 6:07 AM BUSINESS CONTROL MANAGER Devin Dougherty MD LABORATORY [facility] [place] [place] [address], [place] * CT HEAD NO IV CONTRAST (11/05/2023 4:54 AM BUSINESS CONTROL MANAGER) Anatomical Region Laterality Modality Skull Computed Tomogra phy 11/05/2023 4:56 AM BUSINESS CONTROL MANAGER Impressions 11/05/2023 11:09 AM BUSINESS CONTROL MANAGER Impression: 1. Stable to perhaps minimally increased [...] Resident: Laith Berkowitz 11/05/2023 11:09 AM BUSINESS CONTROL MANAGER Exam: Head CT without contrast, 11/05/2023 [...] (PT) & INR (11/05/2023 4:27 AM BUSINESS CONTROL MANAGER) PT 12.3 9.0 - 12.[address] [facility] INR 1.1 0.8 - 1.1 [facility] Comment: This sample may have abnormal results due to the presence of lipemia. Warfarin Therapeutic Range: Standard Intensity: 2.0 - 3.0 High Intensity: 2.5 - 3.5 Blood 11/05/2023 4:27 AM BUSINESS CONTROL MANAGER 11/05/2023 4:35 AM BUSINESS CONTROL MANAGER Quinn Covarrubias MD LABORATORY Performing Organization Address City/[facility]/ZIP Co de Phone Number [facility] [place] [phone] * ICU PHOSPHORUS (11/05/2023 4:27 AM BUSINESS CONTROL MANAGER) Phosphorus 3.5 2.5 - 4.5 mg/dL [facility] Blood 11/05/2023 4:27 AM BUSINESS CONTROL MANAGER 11/05/2023 4:36 AM BUSINESS CONTROL MANAGER Devin Dougherty MD LABORATORY Performing Organization Address City/[facility]/ZIP Co de Phone Number [facility] [address] [address] * (ABNORMAL) ICU MAGNESIUM (11/05/2023 4:27 AM BUSINESS CONTROL MANAGER) Magnesium 1.5(L) 1.6 - 2.4 mg/dL [facility] Blood 11/05/2023 4:27 AM BUSINESS CONTROL MANAGER 11/05/2023 4:36 AM BUSINESS CONTROL MANAGER Devin Dougherty MD LABORATORY [facility] [address] [address] * (ABNORMAL) ICU BLOOD GAS (11/05/2023 4:27 AM BUSINESS CONTROL MANAGER) PH Art 7.38 7.35 - 7.45 [facility] PCO2 Art 42 35 - [address] [facility] PO2 Art 99(H) 75 - [address] [facility] Bicarb Art 25 22 - 26 mEq/L [facility] O2 Sat Art 98 96 - 99 % [facility] Base Exc Art 0.0 -10.0 - 2.0 mEq/L [facility] Blood Arterial 11/05/2023 4: 27 AM BUSINESS CONTROL MANAGER 11/05/2023 4:34 AM BUSINESS CONTROL MANAGER Devin Dougherty MD LABORATORY Performing Organization Address City/[facility] Co de Phone Number [facility] [address] [address] * (ABNORMAL) ICU CBC WITH PLATELET (11/05/2023 4:27 AM BUSINESS CONTROL MANAGER) WBC 13.69(H) 4.00 - 10.00 k/cmm [facility] RBC 3.49(L) 3.90 - 5.20 m/cmm [facility] Hgb 9.8(L) 11.5 - 15.7 g/dL [facility] Hematocrit 28.2(L) 34.0 - 45.0 % [facility] MCV 80.8 80.0 - 100.[address] [facility] MCH 28.1 25.0 - 32.[address] [facility] MCHC 34.8 31.0 - 36.0 g/dL [facility] RDW 15.4(H) 11.5 - 14.5 % [facility] [facility] Plt 330 150 - 400 k/cmm [facility] MPV 10.9 6.5 - 12.[address] [facility] Blood 11/05/2023 4:27 AM BUSINESS CONTROL MANAGER 11/05/2023 4:35 AM BUSINESS CONTROL MANAGER Devin Dougherty MD LABORATORY [facility] [address] [address] * (ABNORMAL) ICU PANEL BASIC METABOLIC (BMP) (11/05/2023 4:27 AM BUSINESS CONTROL MANAGER) Sodium 138 135 - 148 mEq/L [facility] Potassium 3.2(L) 3.5 - 5.3 mEq/L [facility] Chloride 102 92 - 108 mEq/L [facility] CO2 24 22 - 30 mEq/L [facility] AnGap 12 8 - 16 mEq/L [facility] Glucose 200(H) 70 - 100 mg/dL [facility] BUN 16 8 - 23 mg/dL [facility] Creatinine 0.80 0.50 - 1.00 mg/dL [facility] Calcium 8.7(L) 8.8 - 10.2 mg/dL [facility] eGFR (2020 CKD-EPI) 74 >=60 ml/min/1.[address] [facility] Comment: The estimated glomerular filtration rate (eGFR) was calculated using the CKD-EPI 2020 creatinine equation, which does not include race as a factor. This equation is validated in individuals 18 years of age and older, and eGFR is normalized to a body surface area of 1.73m^2. Blood 11/05/2023 4:27 AM BUSINESS CONTROL MANAGER 11/05/2023 4:36 AM BUSINESS CONTROL MANAGER Devin Dougherty MD LABORATORY Performing Organization Address City/[facility]/ZIP Co de Phone Number [facility] [address] [address] * (ABNORMAL) TROP 6H (11/05/2023 4:27 AM BUSINESS CONTROL MANAGER) 6H Trop 51(H) <=14 ng/L [facility] 6H Delta Significan t(A) Not Significant [facility] Blood 11/05/2023 4:27 AM BUSINESS CONTROL MANAGER 11/05/2023 4:35 AM BUSINESS CONTROL MANAGER Devin Dougherty MD LABORATORY Performing Organization Address [facility]/ZIP Co de Phone Number [facility] [address] [address] * (ABNORMAL) TROP 4H (11/05/2023 2:58 AM BUSINESS CONTROL MANAGER) 4H Trop 39(H) <=14 ng/L [facility] 4H Delta Significan t(A) Not Significant [facility] Blood 11/05/2023 2:58 AM BUSINESS CONTROL MANAGER 11/05/2023 3:48 AM BUSINESS CONTROL MANAGER Devin Dougherty MD LABORATORY Performing Organization Address City/[facility] Co de Phone Number [facility] [place] [phone] * CK, TOTAL (11/05/2023 1:32 AM BUSINESS CONTROL MANAGER) CK 56 26 - 192 IU/L [facility] Blood 11/05/2023 1:32 AM BUSINESS CONTROL MANAGER 11/05/2023 1:32 AM BUSINESS CONTROL MANAGER Devin Dougherty MD LABORATORY Performing Organization Address City/[facility] Co de Phone Number [place] [phone] * FIBRINOGEN (11/05/2023 1:32 AM BUSINESS CONTROL MANAGER) Fibrinogen 262 200 - 400 mg/dL [facility] Blood 11/05/2023 1:32 AM BUSINESS CONTROL MANAGER 11/05/2023 1:32 AM BUSINESS CONTROL MANAGER Devin Dougherty MD LABORATORY Performing Organization Address City/[facility] Co de Phone Number [facility] [address] [address] * PTT (APTT) (11/05/2023 1:32 AM BUSINESS CONTROL MANAGER) APTT 26.0 25.0 - 37.[address] [facility] Blood 11/05/2023 1:32 AM BUSINESS CONTROL MANAGER 11/05/2023 1:32 AM BUSINESS CONTROL MANAGER Devin Dougherty MD LABORATORY Performing Organization Address City/[facility] Co de Phone Number [facility] [address] [address] * (ABNORMAL) PANEL HEPATIC FUNCTION (11/05/2023 1:32 AM BUSINESS CONTROL MANAGER) Pathologist [facility] Alk Phos 111(H) 35 - 104 IU/L [facility] Total Protein 6.5 6.4 - 8.3 g/dL [facility] Bili Direct na <=0.3 mg/dL [facility] Comment:Direct Bilirubin = < 0.2. Accuracy of result suspect due to lipemia. Albumin 3.8 3.8 - 5.1 g/dL [facility] Bili Total <0.2 <=1.2 mg/dL [facility] ALT (SGPT) na <=33 [facility] Comment:ALT = 15. Accuracy o f result suspect due to lipemia. AST(SGOT) na 5 - 40 [facility] Comment:AST = 27. Accuracy o f result suspect due to lipemia. Blood 11/05/2023 1:32 AM BUSINESS CONTROL MANAGER 11/05/2023 1:32 AM BUSINESS CONTROL MANAGER Devin Dougherty MD LABORATORY [facility] [address] [address] * (ABNORMAL) CBC WITH PLATELET (11/05/2023 1:32 AM BUSINESS CONTROL MANAGER) Pathologist [facility] WBC 14.77(H) 4.00 - 10.00 k/cmm [facility] RBC 3.70(L) 3.90 - 5.20 m/cmm [facility] Hgb 9.9(L) 11.5 - 15.7 g/dL [facility] Hematocrit 30.0(L) 34.0 - 45.0 % [facility] MCV 81.1 80.0 - 100.[address] [facility] MCH 26.8 25.0 - 32.[address] [facility] MCHC 33.0 31.0 - 36.0 g/dL [facility] RDW 15.4(H) 11.5 - 14.5 % [facility] Plt 324 150 - 400 k/cmm [facility] MPV 11.0 6.5 - 12.[address] [facility] Blood 11/05/2023 1:32 AM BUSINESS CONTROL MANAGER 11/05/2023 1:32 AM BUSINESS CONTROL MANAGER Devin Dougherty MD LABORATORY Performing Organization Address [facility] Co de Phone Number [facility] [address] [address] * (ABNORMAL) PANEL BASIC METABOLIC (BMP) (11/05/2023 1:32 AM BUSINESS CONTROL MANAGER) Potassium 3.1(L) 3.5 - 5.3 mEq/L [facility] Sodium 138 135 - 148 mEq/L [facility] CO2 25 22 - 30 mEq/L [facility] Glucose 242(H) 70 - 100 mg/dL [facility] BUN 16 8 - 23 mg/dL [facility] Creatinine 0.76 0.50 - 1.00 mg/dL [facility] Chloride 101 92 - 108 mEq/L [facility] eGFR (2020 CKD-EPI) 79 >=60 ml/min/1.[address] [facility] Comment: The estimated glomerular filtration rate (eGFR) was calculated using the CKD-EPI 2020 creatinine equation, which does not include race as a factor. This equation is validated in individuals 18 years of age and older, and eGFR is normalized to a body surface area of 1.73m^2. AnGap 12 8 - 16 mEq/L [facility] Calcium 8.8 8.8 - 10.2 mg/dL [facility] Blood 11/05/2023 1:32 AM BUSINESS CONTROL MANAGER 11/05/2023 1:32 AM BUSINESS CONTROL MANAGER Devin Dougherty MD LABORATORY Performing Organization Address [facility] Co de Phone Number [facility] [address] [address] * (ABNORMAL) MAGNESIUM (11/05/2023 1:32 AM BUSINESS CONTROL MANAGER) Magnesium 1.5(L) 1.6 - 2.4 mg/dL [facility] Blood 11/05/2023 1:32 AM BUSINESS CONTROL MANAGER 11/05/2023 1:32 AM BUSINESS CONTROL MANAGER Devin Dougherty MD LABORATORY Performing Organization Address [facility] Co de Phone Number [facility] [address] [address] * PHOSPHORUS (11/05/2023 1:32 AM BUSINESS CONTROL MANAGER) Phosphorus 3.4 2.5 - 4.5 mg/dL [facility] Blood 11/05/2023 1:32 AM BUSINESS CONTROL MANAGER 11/05/2023 1:32 AM BUSINESS CONTROL MANAGER Dvein Dougherty MD LABORATORY Performing Organization Address [facility] Co de Phone Number [facility] [address] [address] * PROTHROMBIN (PT) & INR (11/05/2023 1:32 AM BUSINESS CONTROL MANAGER) PT 11.8 9.0 - 12.[address] [facility] INR 1.0 0.8 - 1.1 [facility] Comment: Warfarin Therapeutic Range: Standard Intensity: 2.0 - 3.0 High Intensity: 2.5 - 3.5 Blood 11/05/2023 1:32 AM BUSINESS CONTROL MANAGER 11/05/2023 1:32 AM BUSINESS CONTROL MANAGER Devin Dougherty MD LABORATORY Performing Organization Address [facility] Co de Phone Number [facility] [address] [address] * CALCIUM,IONIZED (11/05/2023 1:18 AM BUSINESS CONTROL MANAGER) PH 7.37 7.32 - 7.42 [facility] ICA, Actual 4.82 4.40 - 5.20 mg/dL [facility] ICA, pH Corrected 4.75 4.40 - 5.20 mg/dL [facility] Blood 11/05/2023 1:18 AM BUSINESS CONTROL MANAGER 11/05/2023 1:27 AM BUSINESS CONTROL MANAGER Narrative [facility] - 11/05/2023 1:44 AM BUSINESS CONTROL MANAGER Send specimen on ice! Devin Duogherty MD LABORATORY Performing Organization Address [facility] Co de Phone Number [facility] [address] [address] * LACTATE (LACTIC ACID) (11/05/2023 1:18 AM BUSINESS CONTROL MANAGER) Lactate 1.9 0.7 - 2.1 mmol/L [facility] Blood 11/05/2023 1:18 AM BUSINESS CONTROL MANAGER 11/05/2023 1:27 AM BUSINESS CONTROL MANAGER Narrative [facility] - 11/05/2023 1:45 AM BUSINESS CONTROL MANAGER Send specimen on ice! Devin Dougherty MD LABORATORY Performing Organization Address [facility] Co de Phone Number [facility] [address] [address] * BLOOD GASES (11/05/2023 1:18 AM BUSINESS CONTROL MANAGER) PH Art 7.37 7.35 - 7.45 [facility] PCO2 Art 43 35 - [address] [facility] PO2 Art 83 75 - [address] [facility] Bicarb Art 25 22 - 26 mEq/L [facility] O2 Sat Art 96 96 - 99 % [facility] Base Exc Art -0.3 -10.0 - 2.0 mEq/L [facility] Blood Arterial 11/05/2023 1: 18 AM BUSINESS CONTROL MANAGER 11/05/2023 1:27 AM BUSINESS CONTROL MANAGER Devin Dougherty MD LABORATORY Performing Organization Address [facility] Co de Phone Number [facility] [address] [address] * (ABNORMAL) TROP 2H (11/05/2023 1:18 AM BUSINESS CONTROL MANAGER) 2H Trop 18(H) <=14 ng/L [facility] 2H Delta Indeterminate Not Significant [facility] Blood 11/05/2023 1:18 AM BUSINESS CONTROL MANAGER 11/05/2023 1:45 AM BUSINESS CONTROL MANAGER Devin Dougherty MD LABORATORY Performing Organization Address [facility]/ZIP Co de Phone Number [facility] [address] [address] * CT HEAD-NECK - ANGIO - W/IV CON (11/05/2023 12:09 AM BUSINESS CONTROL MANAGER) Anatomical Region Laterality Modality Skull Computed Tomogra phy 11/05/2023 12:2 1 AM BUSINESS CONTROL MANAGER Impressions 11/05/2023 10:22 AM BUSINESS CONTROL MANAGER Impression: ?? Slightly increased size of [...] Resident: Laith Berkowitz 11/05/2023 10:22 AM BUSINESS CONTROL MANAGER CT angiogram of the Head with [...] and reviewed by the Radiologist using the [employer] workstation, and these images were archived in [...] and reviewed by the Radiologist using the [employer] workstation,and these images were archived in the [...] * (ABNORMAL) URINALYSIS,TOTAL (11/04/2023 11:55 PM BUSINESS CONTROL MANAGER) Color COLORLESS YELLOW [facility] Appearance CLEAR CLEAR [facility] Urine Glucose 100(A) NEGATIVE mg/dL [facility] Bili UA NEGATIVE NEGATIVE [facility] Ketones NEGATIVE NEGATIVE [facility] Specific [place] 1.036(A) 1.003 - 1.030 [facility] Blood Ur NEGATIVE Neg-Trace [facility] PH Urine 7.5(H) 5.0 - 7.0 [facility] Protein Ur TRACE Neg-Trace [facility] Urobilinogen NORMAL NORMAL EU/dL [facility] Nitrite Ur NEGATIVE NEGATIVE [facility] Leuk Est NEGATIVE Neg-Trace [facility] WBC Ur 0-5 0 - [address] [facility] RBC Ur 0-3 0 - [address] [facility] SQ EPITH 0-5 0 - [address] [facility] Urinalysis Performed at: [facility] Urine 11/04/2023 11:5 5 PM BUSINESS CONTROL MANAGER 11/05/2023 12:03 AM BUSINESS CONTROL MANAGER Devin Dougherty MD LABORATORY [facility] [address] [address] * PF INSERT CATH,ART,PERCUT,SHORTTERM (11/04/2023 11:43 PM BUSINESS CONTROL MANAGER) Narrative Rito Graf MD - 11/04/2023 11:43 PM BUSINESS CONTROL MANAGER Priscilla Holcomb MD ? 11/04/2023 11:44 PM Arterial Line Performed by: Priscilla Holcomb MD Authorized by: Rito Graf MD ?? Consent: ??Consent obtained: ??Verbal ??Consent given by: ??Patient ??Risks discussed: ??Pain, bleeding and infection [place] protocol: ??Patient identity confirmed: ??Verbally with patient, [...] ED EKG (12-LEAD) (11/04/2023 11:25 PM BUSINESS CONTROL MANAGER) 11/04/2023 11:2 5 PM BUSINESS CONTROL MANAGER Impressions [facility] CVIS EKG ORDERS - 11/04/2023 11:25 PM BUSINESS CONTROL MANAGER SINUS TACHYCARDIA RIGHT BUNDLE BRANCH BLOCK ??[120+ ms QRS DURATION, UPRIGHT V1, 40+ ms S IN I/aVL/V4/V5/V6] ABNORMAL ECG P-R Interval 173 ms QRS Interval 127 ms QT Interval 395 ms QTC Interval 458 ms P [place] 57 QRS [place] 34 T Wave [place] 43 Narrative Procedure Note Vineet Díaz MD - 11/05/2023 IMPRESSION SINUS TACHYCARDIA RIGHT BUNDLE BRANCH BLOCK [120+ ms QRS DURATION, UPRIGHT V1, 40+ ms S INI/aVL/V4/V5/V6] ABNORMAL ECG P-R Interval 173 ms QRS Interval 127 ms QT Interval 395 ms QTC Interval 458 ms P [place] 57 QRS [place] 34 T Wave [place] 43 Devin Dougherty MD EKG [facility] CVIS EKG ORDERS * CT SPINE LUMBAR NO IV CON (11/04/2023 11:05 PM BUSINESS CONTROL MANAGER) Anatomical Region Laterality Modality Lumbar Spine Computed Tomogra phy 11/04/2023 11:2 3 PM BUSINESS CONTROL MANAGER Impressions 11/05/2023 9:22 AM BUSINESS CONTROL MANAGER Impression: 1. No suspected acute fracture or dislocation of the thoracic or lumbar spine. ?? 2. Ddbz-ys-krhmjclj lumbar spondylosis without suspected high-grade spinal canal or neural foraminal narrowing. I have personally reviewed the image(s) and initial interpretation, and I agree with the findings as documented by the resident/fellow. Reading Radiologist: Ford Fernández Resident: Laith Berkowitz Narrative 11/05/2023 9:22 AM BUSINESS CONTROL MANAGER Exam: Thoracic and Lumbar Spine CT [...] dislocation of the thoracic or lumbarspine. 2. Pand-ph-kvuygztk lumbar spondylosis without suspected high-grade spinalcanal or neural foraminal narrowing. I have personally reviewed the image(s) and initial interpretation, and Iagree with the findings as documented by the resident/fellow. Reading Radiologist: Ford Fernández Resident: Laith Berkowitz Devin Dougherty MD RAD CT NEURO * CT SPINE THORACIC NO IV CON (11/04/2023 11:05 PM BUSINESS CONTROL MANAGER) Anatomical Region Laterality Modality Thoracic Spine Computed Tomogra phy 11/04/2023 11:2 3 PM BUSINESS CONTROL MANAGER Impressions 11/05/2023 9:22 AM BUSINESS CONTROL MANAGER Impression: 1. No suspected acute fracture or dislocation of the thoracic or lumbar spine. ?? 2. Jwcr-jt-qshhuavf lumbar spondylosis without suspected high-grade spinal canal or neural foraminal narrowing. I have personally reviewed the image(s) and initial interpretation, and I agree with the findings as documented by the resident/fellow. Reading Radiologist: Ford Fernández Resident: Laith Berkowitz Narrative 11/05/2023 9:22 AM BUSINESS CONTROL MANAGER Exam: Thoracic and Lumbar Spine CT [...] dislocation of the thoracic or lumbarspine. 2. Jkbh-rj-wggbjqml lumbar spondylosis without suspected high-grade spinalcanal or neural foraminal narrowing. I have personally reviewed the image(s) and initial interpretation, and Iagree with the findings as documented by the resident/fellow. Reading Radiologist: Ford Fernández Resident: Laith Berkowitz Devin Dougherty MD RAD CT NEURO * CT CHEST/ABD/PELVIS W/IV CONT (11/04/2023 11:05 PM BUSINESS CONTROL MANAGER) Anatomical Region Laterality Modality Chest Computed Tomogra phy 11/04/2023 11:2 9 PM BUSINESS CONTROL MANAGER Impressions 11/05/2023 6:33 AM BUSINESS CONTROL MANAGER Impression: 1. No acute traumatic sequelae [...] Resident: Laith Berkowitz 11/05/2023 6:33 AM BUSINESS CONTROL MANAGER Comparison: None Indication: Trauma (STAB) ?? [...] NO IV CON (11/04/2023 11:05 PM BUSINESS CONTROL MANAGER) Anatomical Region Laterality Modality Cervical Spine Computed Tomogra phy 11/04/2023 11:2 0 PM BUSINESS CONTROL MANAGER Impressions 11/05/2023 8:27 AM BUSINESS CONTROL MANAGER Impression: ?? 1. No acute fracture or traumatic subluxation of the cervical vertebrae. 2. Mild degenerative changes of the cervical spine without high-grade spinal canal or neural foraminal narrowing. I have personally reviewed the image(s) and initial interpretation, and I agree with the findings as documented by the resident/fellow. Reading Radiologist: Ford Fernández Resident: Laith Berkowitz Narrative 11/05/2023 8:27 AM BUSINESS CONTROL MANAGER Exam: Cervical spine CT without contrast, [...] spinal canal narrowing. C5-6: Mild left and fkwb-wd-dxupbjxo right neural foraminal narrowing. Borderline mild spinal [...] spinal canal narrowing. C5-6: Mild left and fnls-lk-orupuymd right neural foraminal narrowing.Borderline mild spinal canal [...] NO IV CONTRAST (11/04/2023 11:05 PM BUSINESS CONTROL MANAGER) Anatomical Region Laterality Modality Skull Computed Tomogra phy 11/04/2023 11:1 2 PM BUSINESS CONTROL MANAGER Impressions 11/05/2023 10:23 AM BUSINESS CONTROL MANAGER Impression: 1. Thin subdural hemorrhage, measuring up [...] Resident: Laith Berkowitz 11/05/2023 10:23 AM BUSINESS CONTROL MANAGER Exam: Head CT without contrast, 11/05/2023 [...] AP OR PA* (11/04/2023 10:57 PM BUSINESS CONTROL MANAGER) Anatomical Region Laterality Modality Chest Computed Radiogr aphy 11/04/2023 11:0 0 PM BUSINESS CONTROL MANAGER Impressions 11/05/2023 6:18 AM BUSINESS CONTROL MANAGER Impression: No acute cardiopulmonary findings. I have personally reviewed the image(s) and initial interpretation, and I agree with the findings as documented by the resident/fellow. Reading Radiologist: Scott Porras Resident: Laith Berkowitz Narrative 11/05/2023 6:18 AM BUSINESS CONTROL MANAGER Technique: XR CHEST 1 VIEW AP [...] TOTAL (ED ONLY) (11/04/2023 10:48 PM BUSINESS CONTROL MANAGER) Hgb 10.3(L) 11.5 - 15.7 g/dL [facility] Blood 11/04/2023 10:4 8 PM BUSINESS CONTROL MANAGER 11/04/2023 10:49 PM BUSINESS CONTROL MANAGER Devin Dougherty MD LABORATORY [facility] [address] [address] * (ABNORMAL) ED CHEMISTRY LABS(NA,K,CL,CO2,GLU,CREAT,CA-IONIZED,ANION GAP) (11/04/2023 10:48 PM BUSINESS CONTROL MANAGER) Sodium 144 135 - 148 mEq/L [facility] Chloride 106 92 - 108 mEq/L [facility] AnGap 11 8 - 16 mEq/L [facility] Glucose 234(H) 70 - 100 mg/dL [facility] ICA, Actual 4.52 4.40 - 5.20 mg/dL [facility] ICA, pH Corrected 4.51 4.40 - 5.20 mg/dL [facility] Creatinine 0.81 0.50 - 1.00 mg/dL [facility] BICARB 27(H) 22 - 26 mEq/L [facility] eGFR (2020 CKD-EPI) 73 >=60 ml/min/1.[address] [facility] Comment: The estimated glomerular filtration rate (eGFR) was calculated using the CKD-EPI 2020 creatinine equation, which does not include race as a factor. This equation is validated in individuals 18 years of age and older, and eGFR is normalized to a body surface area of 1.73m^2. Potassium 2.8(AA) 3.5 - 5.3 mEq/L [facility] Comment:Critcal Result Low Blood 11/04/2023 10:4 8 PM BUSINESS CONTROL MANAGER 11/04/2023 10:49 PM BUSINESS CONTROL MANAGER Narrative [facility] - 11/04/2023 10:55 PM BUSINESS CONTROL MANAGER Critical value for Potassium called to and read back by Rafa Hutchins RN in ??EDSTAB 2 at 11/04/2023 22:55:31 BUSINESS CONTROL MANAGER by Eleni Spring MLS. Devin Douhgerty MD LABORATORY Performing Organization Address [facility] Co de Phone Number [facility] [address] [address] * (ABNORMAL) ANTI XA HEPARIN UNFRACTIONATED (11/04/2023 10:45 PM BUSINESS CONTROL MANAGER) Anti XA Hep U <0.04(L) 0.30 - 0.70 IU/mL [facility] Blood 11/04/2023 10:4 5 PM BUSINESS CONTROL MANAGER 11/04/2023 11:05 PM BUSINESS CONTROL MANAGER Devin Dougherty MD LABORATORY Performing Organization Address [facility] Co de Phone Number [facility] [address] [address] * EXTRA TUBE - SST (11/04/2023 10:45 PM BUSINESS CONTROL MANAGER) SST TUBE Stored [facility] Comment:SST tubes (Serum Sep arator) are stored in the lab for 3 days from the collection date. Blood 11/04/2023 10:4 5 PM BUSINESS CONTROL MANAGER 11/04/2023 10:50 PM BUSINESS CONTROL MANAGER Devin Dougherty MD LABORATORY Performing Organization Address [facility] Co de Phone Number [facility] [address] [address] * EXTRA TUBE - LIGHT GREEN (11/04/2023 10:45 PM BUSINESS CONTROL MANAGER) Pathologist [facility] LIGHT GREEN TUBE Stored [facility] Comment:Green tubes ([place] Heparin) are stored in the lab for 3 days from the collection date. Blood 11/04/2023 10:4 5 PM BUSINESS CONTROL MANAGER 11/04/2023 10:50 PM BUSINESS CONTROL MANAGER Devin Dougherty MD LABORATORY Performing Organization Address City/[facility]/ZIP Co de Phone Number [facility] [address] [address] * HS TROPONIN (11/04/2023 10:45 PM BUSINESS CONTROL MANAGER) [facility] HS Troponin I 10 <=14 ng/L [facility] Blood 11/04/2023 10:4 5 PM BUSINESS CONTROL MANAGER 11/04/2023 11:05 PM BUSINESS CONTROL MANAGER Narrative [facility] - 11/04/2023 11:36 PM BUSINESS CONTROL MANAGER First Occurrence of the Troponin order is to be drawn Stat by Nursing staff on the unit. Devin Dougherty MD LABORATORY Performing Organization Address [facility] Co de Phone Number [address] [address] * (ABNORMAL) PTT (APTT) (11/04/2023 10:45 PM BUSINESS CONTROL MANAGER) [facility] APTT 22.9(L) 25.0 - 37.[address] [facility] Blood 11/04/2023 10:4 5 PM BUSINESS CONTROL MANAGER 11/04/2023 11:05 PM BUSINESS CONTROL MANAGER Devin Dougherty MD LABORATORY Performing Organization Address [facility] Co de Phone Number [address] [address] * ED INR (11/04/2023 10:45 PM BUSINESS CONTROL MANAGER) Pathologist [facility] ED INR 1.0 0.8 - 1.1 [facility] Comment: Warfarin Therapeutic Range: Standard Intensity: 2.0 - 3.0 High Intensity: 2.5 - 3.5 Blood 11/04/2023 10:4 5 PM BUSINESS CONTROL MANAGER 11/04/2023 10:48 PM BUSINESS CONTROL MANAGER Devin Dougherty MD LABORATORY [facility] [address] [address] * PRECAUTIONARY TUBE (11/04/2023 10:45 PM BUSINESS CONTROL MANAGER) Prec Tube Precautionary Blood Bank Specimen Received. [facility] Blood 11/04/2023 10:4 5 PM BUSINESS CONTROL MANAGER 11/04/2023 10:52 PM BUSINESS CONTROL MANAGER Devin Dougherty MD LAB TRANSFUSION SER VICES Performing Organization Address [facility] Co de Phone Number [address] [address] * (ABNORMAL) LACTATE (LACTIC ACID) (11/04/2023 10:45 PM BUSINESS CONTROL MANAGER) Lactate 2.7(H) 0.7 - 2.1 mmol/L [facility] Blood 11/04/2023 10:4 5 PM BUSINESS CONTROL MANAGER 11/04/2023 10:50 PM BUSINESS CONTROL MANAGER Narrative [facility] - 11/04/2023 10:50 PM BUSINESS CONTROL MANAGER Send specimen on ice! Devin Dougherty MD LABORATORY Performing Organization Address [facility] Co de Phone Number [facility] [address] [address] * FIBRINOGEN (11/04/2023 10:45 PM BUSINESS CONTROL MANAGER) Fibrinogen 288 200 - 400 mg/dL [facility] Blood 11/04/2023 10:4 5 PM BUSINESS CONTROL MANAGER 11/04/2023 11:05 PM BUSINESS CONTROL MANAGER Devin Dougherty MD LABORATORY Performing Organization Address City/[facility]/ZIP Co de Phone Number [facility] [address] [address] * (ABNORMAL) CBC WITH PLTS/AUTO DIFF (11/04/2023 10:45 PM BUSINESS CONTROL MANAGER) WBC 9.42 4.00 - 10.00 k/cmm [facility] RBC 3.86(L) 3.90 - 5.20 m/cmm [facility] Hgb 9.8(L) 11.5 - 15.7 g/dL [facility] Hematocrit 31.8(L) 34.0 - 45.0 % [facility] MCV 82.4 80.0 - 100.[address] [facility] MCH 25.4 25.0 - 32.[address] [facility] MCHC 30.8(L) 31.0 - 36.0 g/dL [facility] RDW 15.3(H) 11.5 - 14.5 % [facility] Plt 292 150 - 400 k/cmm [facility] MPV 11.1 6.5 - 12.[address] [facility] Automated Abs Neutrophil 5.80 1.70 - 6.50 k/cmm [facility] Comment:Preliminary ANC, Fin al Result to Follow Abs Immature Granulocyte 0.07 0.00 - 0.09 k/cmm [facility] Comment:The Immature Granulo cyte Absolute count contains metamyelocytes and myelocytes. Abs Neutrophil 5.80 1.70 - 6.50 k/cmm [facility] Abs Lymphocyte 2.33 0.80 - 4.00 k/cmm [facility] Abs Monocyte 0.88 0.20 - 1.00 k/cmm [facility] Abs Eosinophil 0.27 0.00 - 0.60 k/cmm [facility] Abs Basophil 0.07 0.00 - 0.20 k/cmm [facility] Blood 11/04/2023 10:4 5 PM BUSINESS CONTROL MANAGER 11/04/2023 11:05 PM BUSINESS CONTROL MANAGER Devin Dougherty MD LABORATORY [facility] [address] [place] [id number] * (ABNORMAL) BLOOD GASES (11/04/2023 10:45 PM BUSINESS CONTROL MANAGER) Pathologist [facility] PH Jalen 7.39 7.32 - 7.42 [facility] PCO2 Jalen 45 41 - [address] [facility] PO2 Jalen 41(H) 25 - [address] [facility] Bicarb Jalen 27 24 - 28 mEq/L [facility] O2 Sat Jalen 69 % [facility] Base Exc Jalen 1.4 -10.0 - 2.0 mEq/L [facility] Blood Venous 11/04/2023 10:4 5 PM BUSINESS CONTROL MANAGER 11/04/2023 10:50 PM BUSINESS CONTROL MANAGER Devin Dougherty MD LABORATORY [facility] [address] [address] * ED US CRITICAL CARE (11/04/2023 10:40 PM BUSINESS CONTROL MANAGER) Anatomical Region Laterality Modality Ultrasound Narrative 11/04/2023 11:28 PM BUSINESS CONTROL MANAGER ED Trauma eFAST Ultrasound Indications: Suspicion [...] Primary Fall, initial encounter SDH (subdural hematoma) ([facility]) Subdural hemorrhage SAH (subarachnoid hemorrhage) ([facility]) Subarachnoid hemorrhage Traumatic brain injury with loss of consciousness, initial encounter ([facility]) documented in this encounter Admitting Diagnoses Diagnosis [...] Discontinued New Bag 11/05/2023 4:19 AM BUSINESS CONTROL MANAGER 1,000 mg 400 mL /hr acetaminophen tablet 650 mg 650 mg, Oral, Q6H PRN, Starting on Sun11/05/23 at 0859, Until Sun11/16/23 at 1221, Mild Pain (Use First) Given 11/12/2023 2:59 AM BUSINESS CONTROL MANAGER 650 mg Given 11/10/2023 3:29 PM BUSINESS CONTROL MANAGER 650 mg Given 11/10/2023 9:23 AM BUSINESS CONTROL MANAGER 650 mg allopurinol (ZYLOPRIM) half tablet 50 mg 50 mg, Oral, DAILY, First dose on Sun11/08/23 at 0930, Until Discontinued Given 11/16/2023 7:33 AM BUSINESS CONTROL MANAGER 50 mg Given 11/15/2023 7:59 AM BUSINESS CONTROL MANAGER 50 mg Given 11/14/2023 8:15 AM BUSINESS CONTROL MANAGER 50 mg amLODIPine (NORVASC) tablet 5 mg 5 mg, Oral, DAILY, First dose on Sun11/12/23 at 1045, Until Discontinued Given 11/16/2023 7:33 AM BUSINESS CONTROL MANAGER 5 mg Given 11/15/2023 8:00 AM BUSINESS CONTROL MANAGER 5 mg Given 11/14/2023 8:14 AM BUSINESS CONTROL MANAGER 5 mg bisacodyl (DULCOLAX) suppository 10 mg 10 mg, Rectal, ONE TIME-NOW, 1 dose, On Sun11/14/23 at 0910 Given 11/14/2023 10:10 AM BUSINESS CONTROL MANAGER 10 mg carvedilol (COREG) tablet 12.5 mg 12.5 mg, Oral, BID, First dose on Sun11/05/23 at 2000, Until Discontinued Given 11/06/2023 8:03 PM BUSINESS CONTROL MANAGER 12.5 mg Given 11/06/2023 8:50 AM BUSINESS CONTROL MANAGER 12.5 mg Given 11/05/2023 8:04 PM BUSINESS CONTROL MANAGER 12.5 mg carvedilol (COREG) tablet 12.5 mg 12.5 mg, Oral, BID, First dose (after last modification) on Sun11/07/23 at 2000, Until Discontinued Given 11/09/2023 9:04 AM BUSINESS CONTROL MANAGER 12.5 mg Given 11/08/2023 7:48 PM BUSINESS CONTROL MANAGER 12.5 mg Given 11/08/2023 7:53 AM BUSINESS CONTROL MANAGER 12.5 mg carvedilol (COREG) tablet 6.25 mg 6.25 mg, Oral, BID, First dose (after last modification) on Sun11/09/23 at 2000, Until Discontinued Given 11/16/2023 7:34 AM BUSINESS CONTROL MANAGER 6.25 mg Given 11/15/2023 9:11 PM BUSINESS CONTROL MANAGER 6.25 mg Given 11/15/2023 8:00 AM BUSINESS CONTROL MANAGER 6.25 mg chlorthaLIDONE (HYGROTON) tablet 25 mg 25 mg, Oral, DAILY, First dose (after last reorder) on Sun11/06/23 at 1100, Until Discontinued Given 11/06/2023 2:55 PM BUSINESS CONTROL MANAGER 25 mg chlorthaLIDONE (HYGROTON) tablet 25 mg 25 mg, Oral, DAILY, First dose (after last modification) on Sun11/08/23 at 0800, Until Discontinued Given 11/16/2023 7:33 AM BUSINESS CONTROL MANAGER 25 mg Given 11/15/2023 7:59 AM BUSINESS CONTROL MANAGER 25 mg Given 11/14/2023 8:15 AM BUSINESS CONTROL MANAGER 25 mg clevidipine (CLEVIPREX) 50 mg in 100 mL emulsion 0-21 mg/hr (0-42 mL/hr), Start infusion at (mg/hr): 2, Titrate to: SBP (mmHg), of: 140, Intravenous, CONTINUOUS, Starting on Sun11/04/23 at 2320, Until Sun11/06/23 at 0846 Rate changed 11/06/2023 5:34 AM BUSINESS CONTROL MANAGER 8 mg/hr 16 mL/hr New Bag 11/06/2023 4:49 AM BUSINESS CONTROL MANAGER 6 mg/hr 12 mL/hr Rate changed 11/06/2023 1:58 AM BUSINESS CONTROL MANAGER 6 mg/hr 12 mL/hr clevidipine (CLEVIPREX) 50 mg in 100 mL emulsion 0-21 mg/hr (0-42 mL/hr), Start infusion at (mg/hr): 1, Titrate to: SBP (mmHg), of: 140, Intravenous, CONTINUOUS, Starting on Sun11/05/23 at 0120, Until Sun11/05/23 at 0246 New Bag 11/05/2023 1:46 AM BUSINESS CONTROL MANAGER 21 mg/hr 42 mL/hr clevidipine (CLEVIPREX) 50 mg in 100 mL emulsion 0-21 mg/hr (0-42 mL/hr), Start infusion at (mg/hr): 2, Titrate to: SBP (mmHg), of: 160, Intravenous, CONTINUOUS, Starting on Sun11/06/23 at 0905, Until Sun11/07/23 at 0711 Rate changed 11/06/2023 4:58 PM BUSINESS CONTROL MANAGER 2 mg/hr 4 mL/hr Restarted 11/06/2023 4:50 PM BUSINESS CONTROL MANAGER 3 mg/hr 6 mL/hr Rate changed 11/06/2023 2:56 PM BUSINESS CONTROL MANAGER 3 mg/hr 6 mL/hr DC MED REC [...] Until Discontinued Given 11/16/2023 7:33 AM BUSINESS CONTROL MANAGER 250 mg Given 11/15/2023 8:58 PM BUSINESS CONTROL MANAGER 250 mg Given 11/15/2023 7:59 AM BUSINESS CONTROL MANAGER 250 mg enoxaparin (LOVENOX) 30 mg/0.3 mL injection 30 mg 30 mg, Subcutaneous, Q12H, First dose on Sun11/07/23 at 2000, Until Discontinued Given 11/15/2023 8:57 PM BUSINESS CONTROL MANAGER 30 mg Abdominal Tissue Given 11/15/2023 8:02 AM BUSINESS CONTROL MANAGER 30 mg Le ft Upper Arm Given 11/14/2023 8:20 PM BUSINESS CONTROL MANAGER 30 mg Ri ght Upper Arm hydrALAZINE (APRESOLINE) 20 mg/mL injection 10 mg 10 mg, IV Push, Q4H PRN, Starting on Sun11/07/23 at 1004, Until Sun11/08/23 at 0906, SBP greater than 160 mmHg Given 11/07/2023 5:01 PM BUSINESS CONTROL MANAGER 10 mg hydrALAZINE (APRESOLINE) 20 mg/mL injection 20 mg 20 mg, IV Push, ONE TIME-NOW, 1 dose, On Sun11/07/23 at 1005 Given 11/07/2023 10:29 AM BUSINESS CONTROL MANAGER 20 mg insulin ASPART (NovoLOG) FlexPen Insulin [...] Until Discontinued Given 11/05/2023 5:53 PM BUSINESS CONTROL MANAGER 1 UNITS Abdominal Tissue Given 11/05/2023 12:40 PM BUSINESS CONTROL MANAGER 2 UNITS L eft Upper Arm Given 11/05/2023 8:00 AM BUSINESS CONTROL MANAGER 1 UNITS Le ft Upper Arm insulin [...] Until Discontinued Given 11/13/2023 4:35 PM BUSINESS CONTROL MANAGER 1 UNITS Right Upper Arm Given 11/13/2023 11:56 AM BUSINESS CONTROL MANAGER 1 UNITS L eft Upper Quadrant Abdomen Given 11/09/2023 5:47 PM BUSINESS CONTROL MANAGER 1,747 UNITS A bdominal Tissue insulin ASPART [...] at 2310 Given 11/04/2023 11:07 PM BUSINESS CONTROL MANAGER 120 mL Left Arm iohexol (OMNIPAQUE) 350 mg/mL injection IV Push, RAD ONE TIME AUTO ACKNOWLEDGE, 1 dose, On Sun11/05/23 at 0010 Given 11/05/2023 12:09 AM BUSINESS CONTROL MANAGER 60 mL labetalol (NORMODYNE;TRANDATE) 5 mg/mL injection 10 mg 10 mg, IV Push, Q1H PRN, Starting on Sun11/07/23 at 1004, Until Sun11/08/23 at 0906, SBP greater than 160 mmHg Given 11/08/2023 5:53 AM BUSINESS CONTROL MANAGER 10 mg Given 11/08/2023 4:16 AM BUSINESS CONTROL MANAGER 10 mg Given 11/08/2023 1:27 AM BUSINESS CONTROL MANAGER 10 mg lactated ringers infusion at 75 mL/hr, Intravenous, CONTINUOUS, Starting on Sun11/07/23 at 1055, Until Sun11/07/23 at 1625 Rate changed 11/07/2023 11:53 AM BUSINESS CONTROL MANAGER 75 mL/hr New Bag 11/07/2023 11:23 AM BUSINESS CONTROL MANAGER 110 mL/hr levETIRAcetam (KEPPRA) 750 mg in NaCl 0.9% 100 mL IVPB 750 mg, Intravenous, Q12H, Administer over 15 Minutes, First dose on Sun11/07/23 at 1400, Last dose on Sun11/12/23 at 0800 New Bag 11/08/2023 8:02 AM BUSINESS CONTROL MANAGER 750 mg 430 mL/hr New Bag 11/07/2023 3:10 PM BUSINESS CONTROL MANAGER 750 mg 430 mL/hr levETIRAcetam (KEPPRA) tablet 1,000 mg 1,000 mg, Oral, BID, 11 doses, First dose on Sun11/06/23 at 1999, Last dose on Sun11/11/23 at 1999 Given 11/06/2023 8:03 PM BUSINESS CONTROL MANAGER 1,000 mg levETIRAcetam (KEPPRA) tablet 750 mg 750 mg, Oral, BID, 7 doses, First dose on Sun11/08/23 at 1999, Last dose on Sun11/11/23 at 1999 Given 11/11/2023 7:57 PM BUSINESS CONTROL MANAGER 750 mg Given 11/11/2023 8:55 AM BUSINESS CONTROL MANAGER 750 mg Given 11/10/2023 8:58 PM BUSINESS CONTROL MANAGER 750 mg levETIRAcetam in NaCl (KEPPRA) 1000 mg/100 mL IVPB 1,000 mg 1,000 mg, Intravenous, Q12H, Administer over 15 Minutes, First dose on Sun11/05/23 at 0800, Last dose on Sun11/11/23 at 0800 New Bag 11/05/2023 8:04 PM BUSINESS CONTROL MANAGER 1,000 mg New Bag 11/05/2023 8:08 AM BUSINESS CONTROL MANAGER 1,000 mg levETIRAcetam in NaCl (KEPPRA) 1000 mg/100 mL IVPB 2,000 mg 2,000 mg, Intravenous, ONE TIME, Administer over 15 Minutes, On Sun11/04/23 at 2345 New Bag 11/04/2023 11:40 PM BUSINESS CONTROL MANAGER 2,000 mg losartan (COZAAR) tablet 25 mg 25 mg, Oral, DAILY, First dose on Sun11/05/23 at 0900, Until Discontinued Given 11/06/2023 8:50 AM BUSINESS CONTROL MANAGER 25 mg Given 11/05/2023 11:13 AM BUSINESS CONTROL MANAGER 25 mg losartan (COZAAR) tablet 25 mg 25 mg, Oral, BID, First dose (after last modification) on Sun11/13/23 at 0800, Until Discontinued Given 11/16/2023 7:33 AM BUSINESS CONTROL MANAGER 25 mg Given 11/15/2023 8:58 PM BUSINESS CONTROL MANAGER 25 mg Given 11/15/2023 8:00 AM BUSINESS CONTROL MANAGER 25 mg losartan (COZAAR) tablet 50 mg 50 mg, Oral, DAILY, First dose (after last modification) on Sun11/08/23 at 0800, Until Discontinued Given 11/12/2023 8:47 AM BUSINESS CONTROL MANAGER 50 mg Given 11/11/2023 8:55 AM BUSINESS CONTROL MANAGER 50 mg Given 11/10/2023 9:23 AM BUSINESS CONTROL MANAGER 50 mg magnesium sulfate 2 g IVPB 2 g, Intravenous, ONE TIME, Administer over 1 Hours, On Sun11/05/23 at 0220 New Bag 11/05/2023 2:59 AM BUSINESS CONTROL MANAGER 2 g 50 mL/hr magnesium sulfate 2 g IVPB 2 g, Intravenous, ONE TIME, Administer over 1 Hours, On Sun11/05/23 at 0620 New Bag 11/05/2023 8:08 AM BUSINESS CONTROL MANAGER 2 g 50 mL/hr melatonin tablet 3 mg 3 mg, Oral, BEDTIME, First dose on Sun11/08/23 at 2000, Until Discontinued Given 11/15/2023 8:57 PM BUSINESS CONTROL MANAGER 3 mg Given 11/14/2023 8:17 PM BUSINESS CONTROL MANAGER 3 mg Given 11/13/2023 8:41 PM BUSINESS CONTROL MANAGER 3 mg metFORMIN (GLUCOPHAGE) tablet 500 mg 500 mg, Oral, BID, First dose on Sun11/15/23 at 1010, Until Discontinued Given 11/16/2023 7:33 AM BUSINESS CONTROL MANAGER 500 mg Given 11/15/2023 8:57 PM BUSINESS CONTROL MANAGER 500 mg Given 11/15/2023 12:47 PM BUSINESS CONTROL MANAGER 500 mg NaCl 0.9% infusion at 100 mL/hr, Intravenous, CONTINUOUS, Starting on Sun11/05/23 at 0120, Until Sun11/05/23 at 1705 Infusing 11/05/2023 12:00 PM BUSINESS CONTROL MANAGER 100 mL/hr Infusing 11/05/2023 11:00 AM BUSINESS CONTROL MANAGER 100 mL/hr Infusing 11/05/2023 10:00 AM BUSINESS CONTROL MANAGER 100 mL/hr naproxen (NAPROSYN) tablet 500 mg 500 mg, Oral, BID, 19 doses, First dose on Sun11/08/23 at 0845, Last dose on Sun11/17/23 at 2000 Given 11/16/2023 7:33 AM BUSINESS CONTROL MANAGER 500 mg Given 11/15/2023 8:57 PM BUSINESS CONTROL MANAGER 500 mg Given 11/15/2023 7:58 AM BUSINESS CONTROL MANAGER 500 mg OLANZapine (ZyPREXA ZYDIS) disintegrating tablet 2.5 mg 2.5 mg, Oral, BEDTIME, First dose (after last modification) on Sun11/15/23 at 0230, Until Discontinued Given 11/15/2023 9:01 PM BUSINESS CONTROL MANAGER 2.5 mg Given 11/15/2023 3:27 AM BUSINESS CONTROL MANAGER 2.5 mg OLANZapine (ZyPREXA) tablet 10 mg 10 mg, Oral, BEDTIME PRN, Starting on Sun11/07/23 at 0048, Until Sun11/07/23 at 0836, Agitation Given 11/07/2023 1:46 AM BUSINESS CONTROL MANAGER 10 mg ondansetron (ZOFRAN ODT) disintegrating tablet 4 mg 4 mg, Oral, TID PRN, Starting on Sun11/06/23 at 1020, Until Sun11/16/23 at 1221, Nausea/Vomiting (Use First) ondansetron (ZOFRAN) 4 mg/2 mL injection 4 mg 4 mg, IV Push, ONE TIME, 1 dose, On Sun11/06/23 at 1025 Given 11/06/2023 10:31 AM BUSINESS CONTROL MANAGER 4 mg ondansetron (ZOFRAN) 4 mg/2 mL injection 1 dose, Starting on Sun11/06/23 at 1024, Until Sun11/06/23 at 1031 polyethylene glycol 3350 (MIRALAX;GLYCOLAX) packet 17 g 17 g, Oral, DAILY, First dose on Sun11/06/23 at 0800, Until Discontinued Given 11/13/2023 8:24 AM BUSINESS CONTROL MANAGER 17 g Given 11/12/2023 8:47 AM BUSINESS CONTROL MANAGER 17 g Given 11/11/2023 8:56 AM BUSINESS CONTROL MANAGER 17 g polyethylene glycol 3350 (MIRALAX;GLYCOLAX) packet 17 g 17 g, Oral, BID, First dose (after last modification) on Sun11/14/23 at 0800, Until Discontinued Given 11/15/2023 8:57 PM BUSINESS CONTROL MANAGER 17 g Given 11/15/2023 8:00 AM BUSINESS CONTROL MANAGER 17 g Given 11/14/2023 8:19 PM BUSINESS CONTROL MANAGER 17 g potassium chloride (K-DUR) tablet 40 mEq 40 mEq, Oral, ONE TIME, 1 dose, On Sun11/09/23 at 0735 Given 11/09/2023 9:43 AM BUSINESS CONTROL MANAGER 40 mEq potassium chloride (K-DUR) tablet 40 mEq 40 mEq, Oral, ONE TIME-NOW, 1 dose, On Sun11/13/23 at 1025 Given 11/13/2023 10:51 AM BUSINESS CONTROL MANAGER 40 mEq potassium chloride (K-DUR) tablet 40 mEq 40 mEq, Oral, DAILY, First dose on Sun11/14/23 at 0800, Until Discontinued Given 11/16/2023 7:34 AM BUSINESS CONTROL MANAGER 40 mEq Given 11/15/2023 7:58 AM BUSINESS CONTROL MANAGER 40 mEq Given 11/14/2023 8:15 AM BUSINESS CONTROL MANAGER 40 mEq potassium chloride (K-CANDIDO) 20 mEq 20 mEq, Oral, ONE TIME, 1 dose, On Sun11/05/23 at 1955 Given 11/05/2023 10:32 PM BUSINESS CONTROL MANAGER 20 mEq potassium chloride (K-CANDIDO) powder 20 mEq 20 mEq, Oral, ONE TIME, 1 dose, On Sun11/13/23 at 1540 Given 11/13/2023 4:35 PM BUSINESS CONTROL MANAGER 20 mEq potassium chloride IVPB 10 mEq 10 mEq, Intravenous, ONE TIME, Administer over 60 Minutes, On Sun11/04/23 at 2355 New Bag 11/05/2023 12:12 AM BUSINESS CONTROL MANAGER 10 m Eq potassium chloride IVPB 10 mEq 10 mEq, Intravenous, Q1H, Administer over 60 Minutes, First dose on Sun11/05/23 at 0220, Last dose on Sun11/05/23 at 0320 New Bag 11/05/2023 4:19 AM BUSINESS CONTROL MANAGER 10 mEq New Bag 11/05/2023 2:59 AM BUSINESS CONTROL MANAGER 10 mEq potassium chloride IVPB 10 mEq 10 mEq, Intravenous, Q1H, Administer over 60 Minutes, First dose on Sun11/05/23 at 0620, Last dose on Sun11/05/23 at 0720 New Bag 11/05/2023 8:04 AM BUSINESS CONTROL MANAGER 10 mEq rosuvastatin (CRESTOR) tablet 20 mg 20 mg, Oral, DAILY, First dose on Sun11/05/23 at 0900, Until Discontinued Given 11/16/2023 7:33 AM BUSINESS CONTROL MANAGER 20 mg Given 11/15/2023 7:58 AM BUSINESS CONTROL MANAGER 20 mg Given 11/14/2023 8:15 AM BUSINESS CONTROL MANAGER 20 mg sennosides-docusate sodium (STOOL SOFTENER/LAXATIVE) 8.6-50 mg tablet 1 tablet 1 tablet, Oral, BID, First dose on Sun11/06/23 at 0800, Until Discontinued Given 11/07/2023 7:54 PM BUSINESS CONTROL MANAGER 1 tablet Given 11/06/2023 8:03 PM BUSINESS CONTROL MANAGER 1 tablet sennosides-docusate sodium (STOOL SOFTENER/LAXATIVE) 8.6-50 mg tablet 1 tablet 1 tablet, Oral, BID, First dose (after last modification) on Sun11/14/23 at 0800, Until Discontinued Given 11/16/2023 7:33 AM BUSINESS CONTROL MANAGER 1 tablet Given 11/15/2023 8:57 PM BUSINESS CONTROL MANAGER 1 tablet Given 11/15/2023 7:59 AM BUSINESS CONTROL MANAGER 1 tablet venlafaxine (EFFEXOR XR) capsule 225 mg 225 mg, Oral, DAILY, First dose on Sun11/06/23 at 1000, Until Discontinued Given 11/16/2023 7:32 AM BUSINESS CONTROL MANAGER 225 mg Given 11/15/2023 7:58 AM BUSINESS CONTROL MANAGER 225 mg Given 11/14/2023 8:14 AM BUSINESS CONTROL MANAGER 225 mg VTE Anti Xa Monitoring Does not apply, PROTOCOL, Starting on Sun11/07/23 at 1354, Until Sun11/16/23 at 1221 documented in this encounter Active and Recently Administered Medications Times are shown in BUSINESS CONTROL MANAGER. Scheduled Medication Order 11/14/2023 11/15/2023 11/16/2023 allopurinol [...] pm documented in this encounter Care Teams Plumbing Instructor Relationship Specialty Start Date End Date Eloise Reeves DO [address] [place] [address] PCP - General Family Medicine 11/06/23 documented as of this encounter
--- OUTSIDE RECORDS SUMMARY | 2023-12-15 20:15 | XMS_ITS | Encounter Summary ---
Author Name Unknown Organization [facility] Address [address] [place] [address] Phone Care Team Providers Care Decorating Kiln Operator Name Role Phone Eloise Reeves DO [...] Coronavirus/COVID-19? No / Unsure 11/04/2023 10:48 PM STATISTICS PROFESSOR documented as of this encounter Plan of Treatment Not on file documented as of this encounter Procedures Procedure Name Priority Date/Time Associated Diagnosis Comments TELEMETRY STRIPS 11/08/2023 2:59 AM STATISTICS PROFESSOR documented in this encounter Results * TELEMETRY STRIPS (11/08/2023 2:59 AM STATISTICS PROFESSOR) Narrative 11/08/2023 2:59 AM STATISTICS PROFESSOR Ordered by an unspecified provider. Provider Unknown RAD ECHO documented in this encounter Visit Diagnoses Not on filedocumented in this encounter Care Teams Decorating Kiln Operator Relationship Specialty Start Date End Date Eloise Reeves DO [address] [place] [address] PCP - General Family Medicine 11/06/23 documented as of this encounter
--- OUTSIDE RECORDS SUMMARY | 2023-12-15 20:15 | XMS_ITS | Encounter Summary ---
Author Name Unknown Organization [facility] Address [address] [place] [address] Phone Care Team Providers Care Cook House Laborer Name Role Phone Eloise Reeves DO Primary Care Provider [phone] Encounter Details Date Type Department Care Team [...] Coronavirus/COVID-19? No / Unsure 11/04/2023 10:48 PM SECURITY COMPLIANCE SPECIALIST documented as of this encounter Plan of Treatment Not on file documented as of this encounter Procedures Procedure Name Priority Date/Time Associated Diagnosis Comments TELEMETRY STRIPS 11/05/2023 9:25 AM SECURITY COMPLIANCE SPECIALIST documented in this encounter Results * TELEMETRY STRIPS (11/05/2023 9:25 AM SECURITY COMPLIANCE SPECIALIST) Narrative 11/05/2023 9:25 AM SECURITY COMPLIANCE SPECIALIST Ordered by an unspecified provider. Provider Unknown RAD ECHO documented in this encounter Visit Diagnoses Not on filedocumented in this encounter Care Teams Cook House Laborer Relationship Specialty Start Date End Date Eloise Reeves [address] [place] [address] PCP - General Family Medicine 11/06/23 documented as of this encounter
--- OUTSIDE RECORDS SUMMARY | 2023-12-15 20:15 | XMS_ITS | Encounter Summary ---
Author Name Unknown Organization [facility] Address [address] [place] [address] Phone Care Team Providers Care Aircraft Layout Worker Name Role Phone Eloise Reeves DO Primary Care Provider [phone] Encounter Details Date Type Department Care Team [...] Coronavirus/COVID-19? No / Unsure 11/04/2023 10:48 PM SAWDUST DRIER documented as of this encounter Plan of Treatment Not on file documented as of this encounter Procedures Procedure Name Priority Date/Time Associated Diagnosis Comments TELEMETRY STRIPS 11/09/2023 8:48 AM SAWDUST DRIER documented in this encounter Results * TELEMETRY STRIPS (11/09/2023 8:48 AM SAWDUST DRIER) Narrative 11/09/2023 8:48 AM SAWDUST DRIER Ordered by an unspecified provider. Provider Unknown RAD ECHO documented in this encounter Visit Diagnoses Not on filedocumented in this encounter Care Teams Aircraft Layout Worker Relationship Specialty Start Date End Date Eloise Reeves DO [address] [place] [address] PCP - General Family Medicine 11/06/23 documented as of this encounter
--- OUTSIDE RECORDS SUMMARY | 2023-12-15 20:15 | XMS_ITS | Encounter Summary ---
Author Name Unknown Organization [facility] Address [address] [place] [address] Phone Care Team Providers Care Biometry Teacher Name Role Phone Unavailable Primary Care Provider [...] Coronavirus/COVID-19? No / Unsure 11/04/2023 10:48 PM BIOLOGY TEACHER documented as of this encounter Plan of Treatment Not on file documented as of this encounter Visit Diagnoses Not on filedocumented in this encounter
--- OUTSIDE RECORDS SUMMARY | 2023-12-15 20:15 | XMS_ITS | Encounter Summary ---
Author Name Unknown Organization [facility] Address [address] [place] [address] Phone Care Team Providers Care Drum Puller Name Role Phone Eloise Reeves DO [...] Coronavirus/COVID-19? No / Unsure 11/04/2023 10:48 PM UPPER MARKER documented as of this encounter Plan of Treatment Not on file documented as of this encounter Procedures Procedure Name Priority Date/Time Associated Diagnosis Comments TELEMETRY STRIPS 11/07/2023 1:07 AM UPPER MARKER documented in this encounter Results * TELEMETRY STRIPS (11/07/2023 1:07 AM UPPER MARKER) Narrative 11/07/2023 1:07 AM UPPER MARKER Ordered by an unspecified provider. Provider Unknown RAD ECHO documented in this encounter Visit Diagnoses Not on filedocumented in this encounter Care Teams Drum Puller Relationship Specialty Start Date End Date Eloise Reeves DO [address] [place] [address] PCP - General Family Medicine 11/06/23 documented as of this encounter
== END 2023-12-15 20:20 | disposition home or self-care (01) ==
LOC: ED 20:11
PROVIDERS: Emergency Provider Family Medicine; PCP Family Medicine
DX: D17.5 Benign lipomatous neoplasm of intra-abdominal organs (principal)
CPT/HCPCS: 99283

== ENCOUNTER 2024-03-28 10:15 | Outpatient (RCR) | payer MEDICARE, SELFPAY | END 2024-05-07 10:49 | disposition home or self-care (01) | PROVIDERS: PCP Family Medicine; Visit Provider Family Medicine | DX: F03.B18 Unspecified dementia, moderate, with other behavioral disturbance (principal); S06.9X9S Unspecified intracranial injury with loss of consciousness of unspecified duration, sequela; Z51.89 Encounter for other specified aftercare; R41.3 Other amnesia | CPT/HCPCS: 97110; 97112; 97161; 97165; 97530; 97535 ==

== ENCOUNTER 2024-04-06 17:30 | Emergency (ER) | payer MEDICARE, SELFPAY ==
[2024-04-06 17:41] VITALS: BP 179/80; PULSE 89; RESP 18; TEMP 36.5; O2SAT 97; BMI 33.5
--- NOTE | 2024-04-06 17:53 | CRLHL7_ITS ---
For Patients: As a result of the Century Cures Act, medical imaging exams and procedure reports are released immediately into your electronic medical record. You may view this report before your referring provider. If you have questions, please contact your health care provider. INDICATION: Fall, head injury in October TECHNIQUE: CT of the head without contrast. Coronal and sagittal reformats. Bone and soft tissue algorithms. COMPARISON: No prior studies available for comparison at this institution. FINDINGS: No acute intracranial hemorrhage or extra-axial collection. No evidence of acute cortical infarction. No mass effect or midline shift. Moderate generalized parenchymal volume loss. Mild regions of decreased attenuation within the periventricular and subcortical white matter of both cerebral hemispheres most likely reflects chronic microvascular ischemic disease and age related change in this patient. Vascular calcifications within the carotid siphons. Orbital contents are normal. No calvarial fractures. No lytic or sclerotic osseous lesions within the calvarium or skull base. Scalp and other imaged soft tissue structures are normal. Mastoid air cells are clear. IMPRESSION: No acute intracranial abnormality. Please note that all CT scans at this facility use dose modulation, iterative reconstruction, and/or weight-based dosing when appropriate to reduce radiation dose to as low as reasonably achievable. Dictated by Dejon Daniels MD @ 04/06/2024 6:36:46 PM (Electronically Signed)
--- NOTE | 2024-04-06 17:53 | CRLHL7_ITS ---
For Patients: As a result of the Century Cures Act, medical imaging exams and procedure reports are released immediately into your electronic medical record. You may view this report before your referring provider. If you have questions, please contact your health care provider. Indication: Fall, head injury Technique: Noncontrast axial CT of the cervical spine with coronal and sagittal reformats are provided. Comparison: 03/03/2022 CT Findings: There is straightening and slight reversal of normal cervical lordosis. Advanced degenerative changes at the anterior atlantoaxial articulation. The craniocervical junction is unremarkable. No aggressive osseous lesions. Multilevel cervical spondylosis. Grade 1 anterolisthesis at C4-5 C5-6 and C6-7. Severe interspace narrowing at C5-6 and C6-7 levels. Stable chronic fracture at the tip of the C7 spinous process versus accessory ossification site with degenerative changes. Ossification of the left ligamentum flavum at C7-T1. C1-2: No spinal canal stenosis. Calcification of the transverse ligament may represent underlying calcium pyrophosphate deposition disease. C2-3: Moderate right facet arthrosis. No significant spinal canal stenosis or neural foramen narrowing. C3-4: Moderate left facet arthrosis. No significant spinal canal stenosis or neural foraminal narrowing. C4-5: Mild peridiscal calcifications. Moderate facet arthrosis. No significant spinal canal stenosis or neural foramen narrowing. C5-6: Severe disc space narrowing. Moderate right facet arthrosis and mild left facet arthrosis. No significant spinal canal stenosis or neural foramina narrowing. C6-7: Moderate left facet arthrosis. No significant spinal canal stenosis or neural foramen narrowing. C7-T1: No significant spinal canal stenosis or neural foramen narrowing. Impression: 1. No convincing radiographic evidence of acute osseous injury. 2. Scattered degenerative changes of the cervical spine. Please note that all CT scans at this facility use dose modulation, iterative reconstruction, and/or weight-based dosing when appropriate to reduce radiation dose to as low as reasonably achievable. Dictated by Dejon Daniels MD @ 04/06/2024 6:44:26 PM (Electronically Signed)
--- OUTSIDE RECORDS SUMMARY | 2024-04-06 17:57 | XMS_ITS | Referral Summary ---
Author Organization [employer] [facility] [facility] Address [address] [place] [address] Phone Care Team Providers Care Auto Inspection Specialist Name Role Phone Eloise Reeves DO Primary Care Provider Source Comments [employer] is fully rolled out on [employer]. Last update 04/02/09.[employer] Allergies Active Allergy Reactions Criticality Noted Date [...] (40 mEq) by mouth daily. 11/14/2023 Active sennosides-docusate sodium (STOOL SOFTENER/LAXATIVE) 8.6-50 mg oral tablet Take 1 tablet by mouth twice daily as needed for Constipation. 11/13/2023 Active hydrOXYzine (ATARAX;VISTARIL) 25 mg oral tablet Take 1 tablet (25 mg) by mouth every 6 hours as needed. Active Active Problems Problem Noted Date Diagnosed fall, initial encounter 11/04/2023 Social History Tobacco Use [...] Comments Blood Pressure 108/71 11/27/2023 12:54 PM CLIP WRAPPER Pulse 74 11/27/2023 12:54 PM CLIP WRAPPER Temperature 36.6 ??C (97.8 ??F) 11/16/2023 4:25 AM CS T Respiratory Rate 16 11/16/2023 4:25 AM CLIP WRAPPER Oxygen Saturation 90% 11/16/2023 4:25 AM CLIP WRAPPER Inhaled Oxygen Concentration - - Weight 61.6 kg (135 lb 12.8 oz) 024 12:54 PM CLIP WRAPPER Height 147.3 cm (4' 10) 11/05/2023 12: 03 AM CLIP WRAPPER Body Mass Index 28.38 11/05/2023 12:03 AM CLIP WRAPPER Plan of Treatment Not on file Procedures Procedure Name Priority Date/Time Associated Diagnosis Comments PC LAB GLYCOSYLATED HGB Routine 11/06/2023 6:31 AM CLIP WRAPPER PANEL LIPID Routine 10/10/2021 11:08 AM CLIP WRAPPER from Last 3 Months or Most Recently Relevant to Health Maintenance Results * (ABNORMAL) GLYCOSYLATED HGB - A1C (11/06/2023 6:31 AM CLIP WRAPPER) Hemoglobin A1C 8.1(H) 4.0 - 5.6 % [...] a fasting glucose. Blood 11/06/2023 6:31 AM CLIP WRAPPER 11/06/2023 11:28 AM CLIP WRAPPER Quinn Covarrubias MD LABORATORY [facility] [address] [address] from Last 3 Months or Most Recently Relevant to Health Maintenance Advance Directives For more information, please contact: [phone] * Full Code (Latest Code Status on File) Date Activated Date Inactivated Comments 11/05/2023 1:19 AM 11/16/2023 12:21 PM Question Answer Comments Does the Patient have prefer ences regarding life sustaining measures (these options only apply when the patient has a pulse): Yes Patient will accept intubation for respiratory d eterioration: Yes Patient will accept BiPAP for respiratory deteri oration: Yes Patient will accept vasopressors for hypotension : Yes Patient will accept cardioversion for unstable r hythm: Yes Discussed Code Status With Whom? Patient Care Teams Auto Inspection Specialist Relationship Specialty Start Date End Date Eloise Reeves DO [address] [place] [address] PCP - General Family Medicine 11/06/23
--- OUTSIDE RECORDS SUMMARY | 2024-04-06 17:57 | XMS_ITS | Clinical Summary ---
Author Organization [employer] [employer] Address [address] [place] [address] Phone Care Team Providers Care Duralumin Metalworker Name Role Phone Eloise Reeves DO Primary Care Provider Source Comments [employer] is fully rolled out on [employer]. Last update 04/02/09.[employer] Allergies Active Allergy Reactions Criticality Noted Date [...] Comments Blood Pressure 108/71 11/27/2023 12:54 PM ELECTRICIAN'S HELPER Pulse 74 11/27/2023 12:54 PM ELECTRICIAN'S HELPER Temperature 36.6 ??C (97.8 ??F) 11/16/2023 4:25 AM CS T Respiratory Rate 16 11/16/2023 4:25 AM ELECTRICIAN'S HELPER Oxygen Saturation 90% 11/16/2023 4:25 AM ELECTRICIAN'S HELPER Inhaled Oxygen Concentration - - Weight 61.6 kg (135 lb 12.8 oz) 024 12:54 PM ELECTRICIAN'S HELPER Height 147.3 cm (4' 10) 11/05/2023 12: 03 AM ELECTRICIAN'S HELPER Body Mass Index 28.38 11/05/2023 12:03 AM ELECTRICIAN'S HELPER Plan of Treatment Health Maintenance Due Date [...] PROTOCOL 1961 Osteoporosis Screening (Dexa Scan) 2007 Imm: Pneumonia greater than 65 years (2 of 2 - PCV) 11/23/2008 11/23/2007 Medicare Annual Wellness 01/27/2022 01/27/2021 INFLUENZA VACCINE 05/29/2023 COVID-19 Vaccine ( season) 2023 Diabetic HGB A1C Q 3 Months (Goal <7) 02/05/2024 11/06/2023, 09/12/2023, 09/12/2023, Additional history exists Lipid Screening 10/10/2026 10/10/2021, 04/0 10/2020, 04/19/2020 HIB Aged Out No longer eligi ble based on patient's age to complete this topic Imm: HepB Aged Out No longer eligi ble based on patient's age to complete this topic RSV Immunoglobulin Aged Out No longer eligible based on patient's age to complete this topic Procedures Procedure Name Priority Date/Time Associated Diagnosis Comments PC LAB GLYCOSYLATED HGB Routine 11/06/2023 6:31 AM ELECTRICIAN'S HELPER PANEL LIPID Routine 10/10/2021 11:08 AM ELECTRICIAN'S HELPER from Last 3 Months or Most Recently Relevant to Health Maintenance Results * (ABNORMAL) GLYCOSYLATED HGB - A1C (11/06/2023 6:31 AM ELECTRICIAN'S HELPER) Hemoglobin A1C 8.1(H) 4.0 - 5.6 % [facility] Comment: Increased risk for diabetes (prediabetes): 5.7-6.4% Diabetes: greater than or equal to 6.5% * * In the absence of unequivocal hyperglycemia, diagnosis requires two abnormal test results (i.e. HbA1c and glucose) or two abnormal results from specimens collected at two different timepoints. Estimated Average Glucose 186(H) 68 - 114 [facility] Comment: The ADA recommends reporting an estimated Average Glucose (eAG) with all hemoglobin A1c results using the equation derived from a study of 501 normal diabetic adults. Minority populations were underrepresented and children were not included. The EAG is not equivalent to a fasting glucose. Blood 11/06/2023 6:31 AM ELECTRICIAN'S HELPER 11/06/2023 11:28 AM ELECTRICIAN'S HELPER Quinn Covarrubias MD LABORATORY [facility] [address] [place] [address] from Last 3 Months or Most Recently Relevant to Health Maintenance Advance Directives For more information, please contact: [phone] * Full Code (Latest Code Status on [...] Code Status With Whom? Patient Care Teams Duralumin Metalworker Relationship Specialty Start Date End Date Eloise Reeves DO [address] [place] [address] PCP - General Family Medicine 11/06/23
--- OUTSIDE RECORDS SUMMARY | 2024-04-06 17:58 | XMS_ITS | Clinical Summary ---
Author Organization [facility] Address [place], [place] [address] Care Team Providers Care Ultrasound Tech Name Role Phone Eloise Reeves Primary Care Provider [phone] Allergies Active Allergy Reactions Criticality Noted Date Comments Adhesive Tape-Silicones Rash 12/31/2019 Morphine Rash 12/31/2019 Topiramate Hallucinations 06/01/2020 Medications Medication Sig Dispensed Refills Start Date End Date Status lancetsIndications: Controlled type 2 diabetes mellitus without complication, without long-term current use of insulin (HC) As directed. Test 2 times per day. 100 Each 10/10/2021 Active blood sugar diagnostic (Blood Glucose Test) stripIndications:Co ntrolled type 2 diabetes mellitus without complication, without long-term current use of insulin (HC) As directed. Test 2 times per day. 100 Each 10/10/2021 Active cyanocobalamin (Vitamin B-12) 1,000 mcg tabletIndications:B 12 deficiency Take 1 Tablet (1,000 mcg) by mouth once daily. 90 Tablet 3 12/18/2023 Active ferrous sulfate, 65 mg elemental, tabletIndications:A nemia due to acute blood loss Take 1 Tablet (325 mg) by mouth once daily with a meal. 90 Tablet 3 12/18/2023 Active carvediloL (COREG) 6.25 mg tabletIndications:H ypertension Take 1 Tablet (6.25 mg) by mouth two times daily with meals. 180 Tablet 3 12/18/2023 Active allopurinoL (ZYLOPRIM) 100 mg tabletIndications:G out of left foot, unspecified cause, unspecified chronicity Take 0.5 Tablets (50 mg) by mouth once daily. 45 Tablet 1 12/18/2023 Active rosuvastatin (CRESTOR) 20 mg tabletIndications:H yperlipidemia, unspecified hyperlipidemia type Take 1 Tablet (20 mg) by mouth at bedtime. 90 Tablet 3 12/28/2023 Active venlafaxine (EFFEXOR XR) 75 mg cp24 Extended-Release capsuleIndications: Depression, recurrent (HC),Anxiety Take 2 Capsules (150 mg) by mouth once daily with a meal. 180 Capsule 3 01/17/2024 Active polyethylene glycol-electrolyte (GOLYTELY) 236-22.74-6.74 -5.86 gram suspensionIndicatio ns:Encounter for screening colonoscopy Drink 2 liters the day before the procedure and 2 liters 6 hours prior to procedure. 4000 mL 05/16/2024 Active losartan (COZAAR) 50 mg tabletIndications:H TN (hypertension) Take 1 Tablet (50 mg) by mouth once daily. 90 Tablet 3 03/25/2024 Active blood-glucose meterIndications:Co ntrolled type 2 diabetes mellitus without complication, without long-term current use of insulin (HC) Dispense meter, test strips, lancets covered by pt ins. E11.9 NIDDM type II - Test 2 times/day. Reason: high A1C 1 Kit 03/25/2024 Active blood-glucose meterIndications:Co ntrolled type 2 diabetes mellitus without complication, without long-term current use of insulin (HC) Dispense meter, test strips, lancets covered by pt ins. E11.9 NIDDM type II - Test 2 times/day. Reason: not feeling well 1 Device 01/27/2021 4 Discontinue d(Reorder (E-cancel not sent)) gabapentin (NEURONTIN) 100 mg capsule Take 100 mg by mouth at bedtime. 12/13/2023 4 Discontinue d(*Patient states no longer taking) amLODIPine (NORVASC) 5 mg tabletIndications:H ypertension Take 1 Tablet (5 mg) by mouth once daily. 90 Tablet 3 12/18/2023 4 Discontinue d(*Med complete/Re gimen complete/[employer] of care change) losartan (COZAAR) 25 mg tabletIndications:H TN (hypertension) Take 1 Tablet (25 mg) by mouth once daily. 90 Tablet 3 12/26/2023 Discontinue d(*Medicati on adjustment) Active Problems Problem Noted Date Diagnosed Date MCI (mild cognitive impairment) 01/17/2024 Overview: [facility] OTeval 01/14/24 MOCA . Complete evaluation pending Congestive heart failure, un specified HF chronicity, unspecified heart failure type 01/17/2024 Anemia of unknown etiology 11/06/2022 Overview: Anemia:??had [...] PVCs 10/20/2014 Breast cancer, left Overview: in [place], had mastectomy. No chemo or radiation Encounters Date Type Department Care Team Description 03/31/2024 Travel 03/25/2024 1:30 PM CDT Office Visit [facility] [address] [facility] [address] Eloise Reeves, Edema (Bilateral Ankle and feet edema 2 months getting worse) 03/25/2024 Travel 03/21/2024 Telephone [facility] [address] [facility] [address] Eloise Reeves, Results 03/21/2024 Orders Only [facility] [address] [facility] [address] Eloise Reeves, <No scans attached> 03/20/2024 11:00 AM CDT Orders Only [facility] [address] [facility] [address] Lab, [place] [facility] 03/20/2024 Travel 03/18/2024 Nurse Triage [facility] [facility] [address] Eloise Reeves DO Follow Up (Swelling feet ); Edema (Ankle and feet swelling/) 03/12/2024 11:15 AM CDT Office Visit [facility] [address] [facility] [address] Eloise Reeves DO Follow Up 03/12/2024 Telephone [facility] [address] [address] García Driscoll MD Pre Procedure 03/12/2024 Travel 03/12/2024 Refill [facility] [place] [address] Eloise Reeves DO Refill Request (Chlorthalidone) 02/13/2024 11:15 AM CDT Office Visit [facility] [address] [facility] [address] Eloise Reeves DO Follow Up 02/13/2024 Travel 01/22/2024 Nurse Triage [facility] [address] [facility] [address] Eloise Reeves DO Abnormal Stool 01/18/2024 Orders Only [facility] [address] [facility] [address] Eloise Reeves DO <No scans attached> 01/17/2024 1:30 PM CDT Office Visit [facility] [address] [facility] [address] Eloise Reeves DO Follow Up 01/17/2024 Travel 01/17/2024 Telephone [facility] [address] [facility] [address] Eloise Reeves DO Health Maintenance Update 01/10/2024 Telephone [facility] [address] [place] [address] Eloise Reeves DO Health Maintenance Update (Patient Updates) 01/08/2024 Telephone [facility] [address] [facility] [address] Eloise Reeves DO Questions from Last 3 Months Immunizations Name Administration [...] Date Smoking Tobacco: Never Passive Smoke Exposure: Past Smokeless Tobacco: Never Tobacco Cessation:Counseling Given: Not Answered Comments:2nd hand exposure for 50 yrs Alcohol [...] Outcome GA Total Labor Labor/2nd/3rd Weight Sex Type Anes PTL Jessica A1 A5 Name Clin SAB SAB Last Filed Vital Signs Vital Sign Reading Time Taken Comments Blood Pressure 130/70 03/25/2024 1:33 PM CDT Pulse 65 03/25/2024 1:33 PM CDT Temperature 37.1 ??C (98.8 ??F) 04/04/2022 12:51 PM C DT Respiratory Rate 16 08/22/2022 9:54 AM CDT Oxygen Saturation 97% 03/25/2024 1:33 PM CDT Inhaled Oxygen Concentration - - Weight 67.1 kg (148 lb) 03/25/2024 1:33 PM CDT Height 142.8 cm (4' 8.22) 01/02/2023 1:43 PM CS T Body Mass Index 32.92 01/02/2023 1:43 PM TRANSIT 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 Plan of Treatment Upcoming Encounters Date Type Department Care Team (Late st Contact Info) Description 04/07/2024 9:00 AM CDT Phone Office Visit [address] [id number] Amelia Cotter, RD [address] [place] [address] 04/15/2024 10:00 AM CDT Office Visit [facility] [address] [place] [address] Eloise Reeves DO [address] [place] [address] 05/14/2024 9:10 AM CDT Preop Visit [facility] [address] [place] [address] Eloise Reeves DO [address] [place] [address] 05/28/2024 8:00 AM CDT Office Visit [facility] [address] [place] [address] Hussain Deras MD [address] [place] [address] 05/30/2024 8:30 AM CDT Office Visit [facility] [address] [place] [address] García Driscoll MD [address] [place] [address] Health Maintenance Due Date Last Done Comments Tdap 1951 Tetanus booster 1962 Zoster (shingles) series for age 50+ (2 of 3) 12/24/2009 10/29/2009 Medicare Wellness for age 65+ 01/28/2022 01/27/2021 COVID-19 vaccine series (2022- season) 2023 BMI (ht and wt on same day) for age 18+ 01/03/2024 01/02/2023, 08/22/2022, 10/10/2021, Additional history exists Influenza for age 65+ 06/29/2024 Depression screening for age 12+ 11/02/2024 11/02/2023, 11/01/2023, 03/29/2023, Additional history exists Pneumococcal series for age 65+ Completed 5, 11/23/2007 DEXA/DXA scan for age 65+ Completed 02/03/2021 Procedures Procedure Name Priority Date/Time Associated Diagnosis Comments HEMOGLOBIN A1C Routine 03/20/2024 11:12 AM CDT Controlled type 2 diabetes mellitus without complication, without long-term current use of insulin (HC) VITAMIN B12 Routine 03/20/2024 11:00 AM CDT Anemia of unknown etiology FERRITIN Routine 03/20/2024 11:00 AM CDT Anemia of unknown etiology IRON PLUS IRON BINDING CAP Routine 03/20/2024 11:00 AM CDT Anemia of unknown etiology HEMOGLOBIN Routine 03/20/2024 11:00 AM CDT Fatigue, unspecified type POTASSIUM Routine 02/13/2024 12:20 PM CDT History of hypokalemia POTASSIUM Routine 01/17/2024 2:43 PM CDT Hypokalemia XR DXA BONE DENSITY 2 SITES AXIAL Routine 02/03/2021 9:40 AM CDT Osteoporosis screening Decreased body height Asymptomatic menopausal state from Last 3 Months or Most Recently Relevant to Health Maintenance Results * (ABNORMAL) HEMOGLOBIN A1C MONITORING (POCT) (03/20/2024 11:12 AM CDT) HEMOGLOBIN A1C MONITORING (POCT) 8.1(H) <=6.4 % 03/20/2024 11:12 AM CDT [facility] Blood BLOOD SPECIMEN / Unknown Venipuncture / Unknown 03/20/2024 11:12 AM CDT 03/20/2024 11:12 AM CDT Narrative [facility] - 03/20/2024 11:12 AM CDT ? (<=6.9%) ? Indicates good control ? (7.0% to 7.9%) ? Indicates fair control ? (>=8.0%) ? Indicates poor control ?? NOTE: ??These thresholds are guidelines and ?individual targets may vary. Falsely low levels may be seen with: Recent Transfusion, Recent Significant Blood Loss, Hemolytic Diseases, or Falsely elevated levels may be seen with: Untreated Anemias, Splenectomy ? Eloise Reeves DO CHEMISTRY [facility] [address] [place] [address], * IRON PLUS IRON BINDING CAP (03/20/2024 11:00 AM CDT) IRON 64 37 - 145 ug/dL 03/21/2024 3:58 AM CDT [facility] UIBC (UNSATURATED) 265 112 - 347 ug/dL 03/21/2024 3:58 AM CDT [facility] IRON BINDING CAPACITY 329 250 - 400 ug/dL 03/21/2024 3:58 AM CDT [facility] IRON,% SATURATION 19 14 - 50 % 03/21/2024 3:58 AM CDT [facility] Blood BLOOD SPECIMEN / Unknown Venipuncture / Unknown 03/20/2024 11:00 AM CDT 03/20/2024 11:01 AM CDT Eloise Reeves DO CHEMISTRY [facility] [address] [place] [address], * HEMOGLOBIN (03/20/2024 11:00 AM CDT) HEMOGLOBIN 12.0 12.0 - 16.0 g/dL 03/20/2024 11:12 AM CDT [facility] MCV 87 80 - 100 fL 03/20/2024 11:12 AM CDT [facility] Blood BLOOD SPECIMEN / Unknown Venipuncture / Unknown 03/20/2024 11:00 AM CDT 03/20/2024 11:01 AM CDT Eloise Reeves DO HEMATOLOGY Performing Organization Address City/[facility]/ZIP Co de Phone Number [facility] [address] [place] [address], * FERRITIN (03/20/2024 11:00 AM CDT) FERRITIN 58.6 15.0 - 150.0 ng/mL 03/21/2024 3:58 AM CDT [facility] Blood BLOOD SPECIMEN / Unknown Venipuncture / Unknown 03/20/2024 11:00 AM CDT 03/20/2024 11:01 AM CDT Eloise Reeves DO CHEMISTRY Performing Organization Address [facility] Co de Phone Number [facility] [address] [place] [address], [place] * VITAMIN B12 (03/20/2024 11:00 AM CDT) VITAMIN B12 895 232 - 1,245 pg/mL 03/21/2024 3:58 AM CDT [facility] Blood BLOOD SPECIMEN / Unknown Venipuncture / Unknown 03/20/2024 11:00 AM CDT 03/20/2024 11:01 AM CDT Narrative [facility] - 03/21/2024 3:58 AM CDT Biotin supplements may cause clinically significant interference for this test assay. ??If interference is suspected, it is strongly recommended that biotin is discontinued for at least one week prior to retesting. Eloise Reeves DO CHEMISTRY Performing Organization Address City/[facility]/ZIP Co de Phone Number [facility] [address] [place] [address], [place] * POTASSIUM (02/13/2024 12:20 PM CDT) Only the most recent of2 resultswithin the time period is included. POTASSIUM 4.1 3.5 - 5.1 mmol/L 02/13/2024 9:31 PM CDT [facility] Blood BLOOD SPECIMEN / Unknown Venipuncture / Unknown 02/13/2024 12:20 PM CDT 02/13/2024 12:21 PM CDT Eloise Reeves DO CHEMISTRY [facility] [address] [place] [address], * XR DXA BONE DENSITY 2 SITES AXIAL (02/03/2021 9:40 AM CDT) Anatomical Region Laterality Modality Spine, HIPS, HIPL, HIPR Other Impressions 02/08/2021 12:36 PM CDT Normal bone density. RECOMMENDATIONS: The National Osteoporosis Foundation recommends pharmacologic treatment for patients with T-scores of -2.5 or less, patients with prior history of fragility fractures, or patients with 10-year probability of greater than 3% at hips or greater than 20% of suffering major osteoporotic fractures. Recommend continued optimization of calcium and vitamin D intake through dietary means and/or supplementation and regular exercise. Repeat scan recommended in 3-5 years. Elham Lugo PA-C [facility] 02/08/2021 Narrative 02/08/2021 12:36 PM CDT XR DXA Bone Mineral Density (BMD) EXAM LOCATION: [facility] [address] [facility] [address] PATIENT NAME: Lucinda Chavez DATE OF : 1940 EXAM DATE: 02/03/2021 REQUESTING PROVIDER: Eloise Reeves DO GENDER AT : female HEIGHT: 4' 9.48 (01/27/2021) WEIGHT: ??154 lb (01/27/2021) MENOPAUSAL STATUS: Postmenopausal RACE/ETHNICITY: White RISK FACTORS: NO RISK FACTORS CURRENT MEDICATION FOR BONE LOSS: NONE INDICATION: SCREENING FOR OSTEOPOROSIS COMPARISON DATE(S): None DXA scans are compared to prior studies for a patient only when the two (or more) studies were performed on the same scanner. It is not possible to compare data generated on one scanner to data from another because there are not standards in DXA equipment. This applies even if the two scanners are made by the same cargo mate. PROCEDURE: Dual-energy x-ray absorptiometry performed with routine technique. Reporting is completed in the form of a T-score. The T-score represents the standard deviation from peak bone mass based on young healthy adult. A Z-score is used for diagnosis in premenopausal women, and for men under the age of 50. FINDINGS: RESULT LUMBAR SPINE L2, L3 and L4 BMD: 1.190 g/cm2 T-Score: -0.2 Z-Score: 1.4 RESULT FEMORAL NECK Right Total Femoral Neck BMD: 0.949 g/cm2 T-Score: -0.6 Z-Score: 1.4 RESULT TOTAL HIP Bilateral Total Hip BMD: 0.938 g/cm2 T-Score: -0.6 Z-Score: 1.3 WHO criteria: Normal: T-score at or above -1 SD Osteopenia: T-score between -1.1 and -2.4 SD Osteoporosis: T-score at or below -2.5 SD Eloise Reeves DO DEXA from Last 3 Months or Most Recently Relevant to Health Maintenance Advance Directives Documents on File Type Date Recorded Patient Policy Writer Typist Expl anation Healthcare Directive 11/23/2023 024 Care Teams Ultrasound Tech Relationship Specialty Start Date End Date Eloise Reeves DO [address] [place] [address] [place] [address] PCP - General Family Practice 05/13/20
[2024-04-06] MEDS: HYDROmorphone 2 MG TABLET 4 MG PO (18:03)
--- NOTE | 2024-04-06 18:05 | ED_ITS ---
HPI - General Adult General Chief complaint: Neck Injury/Pain Stated complaint: Pain in neck/head Time Seen by Provider: 04/06/24 17:47 History of Present Illness HPI narrative: Patient is an 84 year white female who apparently fell a couple months ago was treated [facility] for head injury, she apparently she had a bleed in her brain, she reports she was doing okay has had intermittent headaches but today it a lot of spasm on the right side of her head she has some mild neck tightness as well. She was brought to the hospital for evaluation. She came by personal vehicle. She is ambulatory. She describes intermittent spasms in the right side of her temporal and parietal area. Little bit right side of her neck as well. She has had no new fall or injury. She denies any radicular as such as weakness or numbness in her legs or arms. The patient has had no fever chills. Related Data Home Medications ?Medication ?Instructions ?Recorded ?Confirmed amlodipine 2.5 mg tablet 5 mg PO DAILY 03/20/23 12/13/23 carvedilol 12.5 mg tablet 6.25 mg PO BID 03/20/23 12/13/23 chlorthalidone 25 mg tablet 25 mg PO DAILY 03/20/23 12/13/23 cyanocobalamin (vitamin B-12) 1,000 mcg PO DAILY 03/20/23 12/13/23 1,000 mcg tablet ferrous sulfate 325 mg (65 mg 325 mg PO BID 03/20/23 12/13/23 iron) tablet (FeroSul) losartan 100 mg tablet 100 mg PO DAILY 03/20/23 12/13/23 metformin 1,000 mg tablet 1,000 mg PO BID 03/20/23 12/13/23 omeprazole 20 mg capsule,delayed 20 mg PO BID 03/20/23 12/13/23 release rosuvastatin 10 mg tablet 10 mg PO QPM 03/20/23 12/13/23 venlafaxine 150 mg 50 mg PO DAILY 03/20/23 12/13/23 capsule,extended release 24 hr venlafaxine 75 mg capsule,extended 50 mg PO DAILY 03/20/23 12/13/23 release 24 hr allopurinol 100 mg tablet 50 mg PO DAILY 12/12/23 12/13/23 divalproex 250 mg tablet,delayed 250 mg PO QHS 12/12/23 12/13/23 release (Depakote) lorazepam 0.5 mg tablet (Ativan) 0.5 mg PO TID PRN 12/12/23 12/13/23 losartan 25 mg tablet 25 mg PO DAILY 12/12/23 12/13/23 melatonin 3 mg capsule 3 mg PO QHS 12/12/23 12/13/23 potassium chloride 20 mEq 20 meq PO BID 12/12/23 12/13/23 tablet,extended release(part/cryst) rosuvastatin 20 mg tablet 20 mg PO QPM 12/12/23 12/13/23 sennosides 8.6 mg-docusate sodium 1 tab-cap PO BID 12/12/23 12/13/23 50 mg tablet (Senna-S) Previous Rx's ?Medication ?Instructions ?Recorded benzonatate 100 mg capsule 100 mg PO BID-TID PRN cough #20 08/17/23 caps donepezil 5 mg tablet (Aricept) 5 mg PO QHS #14 tabs 12/12/23 gabapentin 100 mg capsule 100 mg PO QHS #14 caps 12/12/23 Allergies Allergy/AdvReac Type Severity Reaction Status Date / Time latex Allergy Verified 12/13/23 11:37 morphine Allergy Rash Verified 12/13/23 11:37 silicone Allergy Rash Verified 12/13/23 11:37 topiramate [From Topamax] Allergy Hallucinati Verified 12/13/23 11:37 ng surgical tape Allergy Uncoded 09/05/23 08:49 Review of Systems Status of ROS: Reports: 6 or more systems reviewed and unremarkable except as noted in History and below [facility] Medical History Health care directive on file ?Z78.9 - Other specified health status (ICD-10) Social History Smoking Status: Never smoker Do you use any of these nicotine containing products: None How often do you have a drink containing alcohol: monthly or less AUDIT-C Alcohol total score: 1 Non-prescribed substance use: denies use service: No Exam Narrative: Exam Narrative: Objective: Patient's vital signs show elevated blood pressure systolic but otherwise afebrile, O2 sats 97% on room air Alert orient x3 No facial asymmetry No palpable tenderness along her scalp or temporal artery area Neck is supple nontender in the midline and She seems to have on and off spasm in the right side of her head. Arms and legs are working well she has got no neuro focal neurologic finding and is ambulatory appears Const: Vital Signs, click to edit/add: Vital Signs - 24 hr 04/06/24 17:41 Temperature 97.7 F Pulse Rate [Pulse Oximeter] 89 Respiratory Rate 18 Blood Pressure [Ri ght Upper Arm] 179/80 H Pulse Oximetry 97 Oxygen Delivery Me thod Room Air Course Vital Signs Vital signs: Initial Vital Signs Temperature 97.7 F 04/06/24 17:41 Temperature Source Temporal Artery Scan 04/06/24 17:41 Pulse Rate 89 04/06/24 17:41 Pulse Rhythm Regular 04/06/24 17:41 Respiratory Rate 18 04/06/24 17:41 Blood Pressure 179/80 H 04/06/24 17:41 Blood Pressure Mean 113 H 04/06/24 17:41 Blood Pressure Position Sitting 04/06/24 17:41 Pulse Oximetry 97 04/06/24 17:41 Oxygen Delivery Method Room Air 04/06/24 17:41 Vital Signs Temperature 97.7 F 04/06/24 17:41 Pulse Rate 89 04/06/24 17:41 Respiratory Rate 18 04/06/24 17:41 Blood Pressure 179/80 H 04/06/24 17:41 Pulse Oximetry 97 04/06/24 17:41 Oxygen Delivery Method Room Air 04/06/24 17:41 Temperature 97.7 F 04/06/24 17:41 Pulse Rate 89 04/06/24 17:41 Respiratory Rate 18 04/06/24 17:41 Blood Pressure 179/80 H 04/06/24 17:41 Pulse Oximetry 97 04/06/24 17:41 Oxygen Delivery Method Room Air 04/06/24 17:41 Medications Administered Medications: Discontinued Medications Generic Name Dose Route Start Last Admin Trade Name Freq PRN Reason Stop Dose Admin Hydromorphone HCl 4 mg 04/06/24 17:55 04/06/24 18:03 Hydromorphone 2 Mg Tablet PO 04/06/24 17:56 4 mg ONCE ONE Administration Medical Decision Making MDM Narrative Medical decision making narrative: [age] white female with a recent couple months ago fall with a 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 Will give her some oral dilaudid, she has had a problem with morphine in the past with a rash. She apparently has had other pain medicines without difficulty will give that a try. Will also get a head neck CT scan as well. Disposition pending their findings. Addendum 6:45 p.m. the patient's head and neck CT showed degenerative changes chronic in the neck specially but no acute fractures no acute bleeds. She got oral dilaudid her headache is better spasm is improved. I think she can be discharged home rest light activity recommended Tylenol recommended, light activity. Follow up with regular doctor in the next 1-2 days certainly sooner change concerns worsening. Will also give her some prednisone twice a day for the next 3-4 days as well as some norco, which she states she has not had trouble with a past Discharge Plan Discharge Clinical Impression: Head injury, Cervical paraspinal muscle spasm Patient Disposition: Home w/ Parent or Adult Condition: Stable Additional Instructions: Light activity, continue home medications, may use norco as needed, recheck with regular doctor as needed, may use ice or heat to your neck. prednisone as prescribed Activity Level: Light activity Discharge Diet: Regular Prescriptions: No Action benzonatate 100 mg capsule 100 mg PO BID-TID PRN (Reason: cough) Qty: 20 0RF potassium chloride 20 mEq tablet,ER particles/crystals 20 meq PO BID losartan 25 mg tablet 25 mg PO DAILY melatonin 3 mg capsule 3 mg PO QHS allopurinol 100 mg tablet 50 mg PO DAILY rosuvastatin 20 mg tablet 20 mg PO QPM divalproex [Depakote] 250 mg tablet,delayed release (DR/EC) 250 mg PO QHS lorazepam [Ativan] 0.5 mg tablet 0.5 mg PO TID PRN sennosides-docusate sodium [Senna-S] 8.6-50 mg tablet 1 tab-cap PO BID donepezil [Aricept] 5 mg tablet 5 mg PO QHS Qty: 14 2RF gabapentin 100 mg capsule 100 mg PO QHS Qty: 14 2RF venlafaxine 75 mg capsule,extended release 24hr 50 mg PO DAILY carvedilol 12.5 mg tablet 6.25 mg PO BID venlafaxine 150 mg capsule,extended release 24hr 50 mg PO DAILY cyanocobalamin (vitamin B-12) 1,000 mcg tablet 1,000 mcg PO DAILY amlodipine 2.5 mg tablet 5 mg PO DAILY chlorthalidone 25 mg tablet 25 mg PO DAILY ferrous sulfate [FeroSul] 325 mg (65 mg iron) tablet 325 mg PO BID metformin 1,000 mg tablet 1,000 mg PO BID omeprazole 20 mg capsule,delayed release(DR/EC) 20 mg PO BID losartan 100 mg tablet 100 mg PO DAILY rosuvastatin 10 mg tablet 10 mg PO QPM Follow Up/Referrals: Eloise Reeves DO [Primary Care Provider] - Stand Alone Forms: [facility] Info Instructions
== END 2024-04-06 19:20 | disposition home or self-care (01) ==
PROVIDERS: Emergency Provider Family Medicine; PCP Family Medicine
DX: M54.2 Cervicalgia (principal); M62.838 Other muscle spasm
CPT/HCPCS: 70450; 72125; 99284; A9270

== ENCOUNTER 2024-10-01 13:45 | Outpatient (RCR) | payer MEDICARE, SELFPAY | END 2024-11-21 11:22 | disposition home or self-care (01) | PROVIDERS: PCP Family Medicine; Visit Provider Family Medicine | DX: M25.562 Pain in left knee (principal); G89.29 Other chronic pain; R26.89 Other abnormalities of gait and mobility; R41.89 Other symptoms and signs involving cognitive functions and awareness; M62.81 Muscle weakness (generalized); R26.81 Unsteadiness on feet; Z51.89 Encounter for other specified aftercare | CPT/HCPCS: 97110; 97112; 97162; 97166; 97535 ==

== ENCOUNTER 2024-11-11 11:57 | Emergency (ER) | payer MEDICARE, SELFPAY ==
[2024-11-11 12:29] VITALS: BP 191/87; PULSE 78; RESP 16; TEMP 36.2; O2SAT 98; BMI 32.2
--- NOTE | 2024-11-11 13:44 | ED.GENADULT ---
HPI - General Adult General Date Seen: 11/11/24 Chief complaint: Extremity Pain/Injury, Lower Stated complaint: swollen foot Time Seen by Provider: 11/11/24 13:36 History of Present Illness HPI narrative: 84 yo F with a past medical history of hypertension, hyperlipidemia, elevated BMI, type 2 diabetes, history of breast cancer, depression, history of SVT, history of CHF. No history of blood clots. Not currently anticoagulated. Presenting to the ER today with left foot swelling, and pain. History is obtained from the patient and her . She actually developed swelling affecting her left leg sounds like from the knee down through the foot. Swell were present over the weekend. At that point she was not having any pain. She worked with her primary care provider and was given compression stockings which she wore will for 1 day, yesterday, on Sunday. Since then she has noted improvement in the swelling in her knee, calf but still has persistent swelling in the top of her foot and on the lateral aspect of her midfoot and hindfoot. Her left foot has become painful overnight. It hurts to walk on. The skin is now also little bit red. She is not having any fever or chills. No known injury to her foot. She has not had any recent surgery or immobilization. He has no history of blood clots. No chest pain or shortness of breath No symptoms in her right foot or leg. Related Data Home Medications ?Medication ?Instructions ?Recorded ?Confirmed amlodipine 2.5 mg tablet 5 mg PO DAILY 03/20/23 12/13/23 carvedilol 12.5 mg tablet 6.25 mg PO BID 03/20/23 12/13/23 chlorthalidone 25 mg tablet 25 mg PO DAILY 03/20/23 12/13/23 cyanocobalamin (vitamin B-12) 1,000 mcg PO DAILY 03/20/23 12/13/23 1,000 mcg tablet ferrous sulfate 325 mg (65 mg 325 mg PO BID 03/20/23 12/13/23 iron) tablet (FeroSul) losartan 100 mg tablet 100 mg PO DAILY 03/20/23 12/13/23 metformin 1,000 mg tablet 1,000 mg PO BID 03/20/23 12/13/23 omeprazole 20 mg capsule,delayed 20 mg PO BID 03/20/23 12/13/23 release rosuvastatin 10 mg tablet 10 mg PO QPM 03/20/23 12/13/23 venlafaxine 150 mg 50 mg PO DAILY 03/20/23 12/13/23 capsule,extended release 24 hr venlafaxine 75 mg capsule,extended 50 mg PO DAILY 03/20/23 12/13/23 release 24 hr allopurinol 100 mg tablet 50 mg PO DAILY 12/12/23 12/13/23 divalproex 250 mg tablet,delayed 250 mg PO QHS 12/12/23 12/13/23 release (Depakote) lorazepam 0.5 mg tablet (Ativan) 0.5 mg PO TID PRN 12/12/23 12/13/23 losartan 25 mg tablet 25 mg PO DAILY 12/12/23 12/13/23 melatonin 3 mg capsule 3 mg PO QHS 12/12/23 12/13/23 potassium chloride 20 mEq 20 meq PO BID 12/12/23 12/13/23 tablet,extended release(part/cryst) rosuvastatin 20 mg tablet 20 mg PO QPM 12/12/23 12/13/23 sennosides 8.6 mg-docusate sodium 1 tab-cap PO BID 12/12/23 12/13/23 50 mg tablet (Senna-S) Previous Rx's ?Medication ?Instructions ?Recorded benzonatate 100 mg capsule 100 mg PO BID-TID PRN cough #20 08/17/23 caps donepezil 5 mg tablet (Aricept) 5 mg PO QHS #14 tabs 12/12/23 gabapentin 100 mg capsule 100 mg PO QHS #14 caps 12/12/23 apixaban 5 mg (74 tabs) tablets in See Rx Instructions PO .COMPLEX 11/11/24 a dose pack (Eliquis DVT-PE Treat #74 ea 30D Start) Allergies Allergy/AdvReac Type Severity Reaction Status Date / Time latex Allergy Verified 12/13/23 11:37 morphine Allergy Rash Verified 12/13/23 11:37 silicone Allergy Rash Verified 12/13/23 11:37 topiramate (From Topamax) Allergy Hallucinati Verified 12/13/23 11:37 ng surgical tape Allergy Uncoded 09/05/23 08:49 [facility] Medical History Health care directive on file ?Z78.9 - Other specified health status (ICD-10) Social History Smoking Status: Never smoker Do you use any of these nicotine containing products: None How often do you have a drink containing alcohol: monthly or less AUDIT-C Alcohol total score: 1 Non-prescribed substance use: denies use service: No Exam Narrative: Exam Narrative: Constitutional: Appears well-developed and well-nourished. Alert. Conversant. Non toxic. HENT: Head: Atraumatic. Nose: Nose normal. Mouth/Throat: Oral mucosa is clear and moist. no trismus. Pharynx normal. Tonsils symmetric. No tonsillar enlargement, erythema, or exudate. Eyes: Conjunctivae normal. EOM normal. Pupils equal, round, and reactive to light. No scleral icterus. Neck: Normal range of motion. Neck supple. No tracheal deviation present. Cardiovascular: Normal rate, regular rhythm. No gallop. No friction rub. No murmur heard. Symmetric DP and PT artery pulses . Normal brisk distal cap refill. Pulmonary/Chest: Effort normal. No stridor. No respiratory distress. No wheezes. No rales. No rhonchi . Musculoskeletal: RUE: Normal range of motion. No tenderness. No deformity LUE: Normal range of motion. No tenderness. No deformity RLE: She has edema and tenderness affecting her left foot across the dorsum of the midfoot and the lateral aspect of the foot anterior and distal to her lateral malleolus. There is no palpable abscess. No crepitus in the soft tissue. No bruising. The skin there is subtly red and is definitely warm to the touch. The forefoot and toes are normal. On the sole of the foot there are 2 small purple whitley, Normal range of motion in her hip, knee, ankle and toe wiggling.. No edema. No tenderness. No deformity LLE: Normal range of motion. No edema. No tenderness. No deformity Lymph: No ascending lymphangitis Neurological: Alert and oriented to person, place, and time. Normal strength. CN II-VII intact. No sensory deficit. GCS eye subscore is 4. GCS verbal subscore is 5. GCS motor subscore is 6. Normal coordination Skin: Skin is warm and dry. No rash noted. No pallor. Normal capillary refill. Psychiatric: Normal mood. Normal affect. Const: Vital Signs, click to edit/add: Vital Signs - 24 hr 11/11/24 12:29 11/11/24 14:53 Temperature 97.1 F L 97.7 F Pulse Rate [Pulse Oximeter] 78 83 Respiratory Rate 16 18 Blood Pressure [Ri ght Upper Arm] 191/87 H 162/96 H Pulse Oximetry 98 95 Oxygen Delivery Me thod Room Air Room Air Course Vital Signs Vital signs: Initial Vital Signs Temperature 97.1 F L 11/11/24 12:29 Temperature Source Temporal Artery Scan 11/11/24 12:29 Pulse Rate 78 11/11/24 12:29 Respiratory Rate 16 11/11/24 12:29 Blood Pressure 191/87 H 11/11/24 12:29 Blood Pressure Mean 121 H 11/11/24 12:29 Blood Pressure Position Sitting 11/11/24 12:29 Pulse Oximetry 98 11/11/24 12:29 Oxygen Delivery Method Room Air 11/11/24 12:29 Vital Signs Temperature 97.1 F L 11/11/24 12:29 Pulse Rate 78 11/11/24 12:29 Respiratory Rate 16 11/11/24 12:29 Blood Pressure 191/87 H 11/11/24 12:29 Pulse Oximetry 98 11/11/24 12:29 Oxygen Delivery Method Room Air 11/11/24 12:29 Temperature 97.7 F 11/11/24 14:53 Pulse Rate 83 11/11/24 14:53 Respiratory Rate 18 11/11/24 14:53 Blood Pressure 162/96 H 11/11/24 14:53 Pulse Oximetry 95 11/11/24 14:53 Oxygen Delivery Method Room Air 11/11/24 14:53 Medical Decision Making [facility] Narrative Medical decision making narrative: Pleasant 84-year-old female presenting to the ER today with a several a history of edema affecting her left leg roughly from the knee down to the toes. That is actually getting better since she has been on compression stocks and but she still has some persistent edema, mild redness, pain on the top and lateral aspect of her foot. She has no recent trauma but with the foot pain we did obtain x-rays in their fortunately negative for fracture. No evidence for any radiopaque foreign body either. She has not had any fever or chills and the redness on her foot is extremely faint. No definitive evidence for cellulitis. No other signs of more serious infection such as abscess or necrotizing infection. Concern with her atraumatic leg edema is possible DVT. Venous ultrasound was obtained and does show evidence for a small segment of clot in her left peroneal vein. This is positive for a calf DVT. No more proximal clots. She has no history of DVT PE. No history of hypercoagulability. No clear cause for this clot. No recent travel. Discussed with the patient and her they verbalized their understanding. We discussed options for treatment. Overall, clots that are isolated to the calf or thought to be lower likelihood to embolize then clots that are more proximal. Therefore per up-to-date, current management options could include anticoagulation starting today versus careful watch showing with follow-up ultrasound and anticoagulation only if there is expansion of the clot. We also discussed the risks of bleeding if we do initiate anticoagulation. Patient would prefer to initiate anticoagulation today. Therefore will start her on Eliquis (prescription for the Eliquis starter pack sent to her pharmacy). She will follow-up with her primary care provider within 1 week to recheck. They should obtain a repeat ultrasound to double check the clot burden. Also, consider workup for possible hypercoagulable conditions. We discussed the risk and the symptoms of PE. Precautions for return to the ER reviewed. Questions answered. Imaging Data XR foot: Attestation: I have reviewed the pertinent imaging results. Radiologist's impression: Findings/Impression: Bones: Mild osteopenia without evidence of fracture or destructive osseous lesions. Joint spaces: Periarticular calcifications at the 1st MTP joint. Soft tissues: Forefoot soft tissue swelling. Atherosclerosis. Calcification of the plantar fascia suggesting chronic fasciitis. US LLE: Attestation: I have reviewed the pertinent imaging results. Radiologist's impression: IMPRESSION: Acute short-segment deep venous thrombosis in 1 of 2 paired peroneal veins proximally in the calf. Discharge Plan Discharge Clinical Impression: DVT of leg (deep venous thrombosis) Patient Disposition: Home, Self-Care Condition: Stable Instructions: Deep Vein Thrombosis (DC), Blood Thinners (ED) Additional Instructions: As we discussed, please come back to the ER right away if you have worsening pain or swelling in your leg or foot, or if you have any shortness of breath or chest pain. Please start on the blood thinning medication today. Take it as directed on the package. Take it twice daily. For the 1st week you have to take 10 mg twice daily, after that you take 5 mg twice daily. Please call your doctors at the [facility] today. Ask them for a recheck appointment next week and asked them to get a follow-up ultrasound to check the clots in your calf. If you have any trouble with bleeding, or any other concerns, please come back to the ER right away to be rechecked Prescriptions: [place] DVT-PE Treat 30D Start 5 mg (74 tabs) tablets,dose pack See Rx Instructions .ROUTE .COMPLEX Qty: 74 0RF Rx Instructions: orally per package directions No Action benzonatate 100 mg capsule 100 mg PO BID-TID PRN (Reason: cough) Qty: 20 0RF potassium chloride 20 mEq tablet,ER particles/crystals 20 meq PO BID losartan 25 mg tablet 25 mg PO DAILY melatonin 3 mg capsule 3 mg PO QHS allopurinol 100 mg tablet 50 mg PO DAILY rosuvastatin 20 mg tablet 20 mg PO QPM divalproex [Depakote] 250 mg tablet,delayed release (DR/EC) 250 mg PO QHS lorazepam [Ativan] 0.5 mg tablet 0.5 mg PO TID PRN sennosides-docusate sodium [Senna-S] 8.6-50 mg tablet 1 tab-cap PO BID donepezil [Aricept] 5 mg tablet 5 mg PO QHS Qty: 14 2RF gabapentin 100 mg capsule 100 mg PO QHS Qty: 14 2RF venlafaxine 75 mg capsule,extended release 24hr 50 mg PO DAILY carvedilol 12.5 mg tablet 6.25 mg PO BID venlafaxine 150 mg capsule,extended release 24hr 50 mg PO DAILY cyanocobalamin (vitamin B-12) 1,000 mcg tablet 1,000 mcg PO DAILY amlodipine 2.5 mg tablet 5 mg PO DAILY chlorthalidone 25 mg tablet 25 mg PO DAILY ferrous sulfate [FeroSul] 325 mg (65 mg iron) tablet 325 mg PO BID metformin 1,000 mg tablet 1,000 mg PO BID omeprazole 20 mg capsule,delayed release(DR/EC) 20 mg PO BID losartan 100 mg tablet 100 mg PO DAILY rosuvastatin 10 mg tablet 10 mg PO QPM Follow Up/Referrals: Eloise Reeves DO [Primary Care Provider] - Stand Alone Forms: [facility] Info Instructions
--- NOTE | 2024-11-11 13:58 | CRLHL7_ITS ---
For Patients: As a result of the Century Cures Act, medical imaging exams and procedure reports are released immediately into your electronic medical record. You may view this report before your referring provider. If you have questions, please contact your health care provider. Indication: Left foot swelling, redness and pain Technique: Three views left foot Comparison: None Findings/Impression: Bones: Mild osteopenia without evidence of fracture or destructive osseous lesions. Joint spaces: Periarticular calcifications at the 1st MTP joint. Soft tissues: Forefoot soft tissue swelling. Atherosclerosis. Calcification of the plantar fascia suggesting chronic fasciitis. Dictated by Amish Shirley MD @ 11/11/2024 2:32:25 PM (Electronically Signed)
--- NOTE | 2024-11-11 13:58 | CRLHL7_ITS ---
For Patients: As a result of the Century Cures Act, medical imaging exams and procedure reports are released immediately into your electronic medical record. You may view this report before your referring provider. If you have questions, please contact your health care provider. INDICATION: Leg pain and swelling TECHNIQUE: Ultrasound venous duplex lower left extremity. Compression venous exam was performed using nicole-scale, color Doppler, and spectral Doppler analysis. COMPARISON: None. FINDINGS: A short segment of acute deep venous thrombosis is present in 1 of 2 paired peroneal veins proximally in the calf. Otherwise, sonographic imaging demonstrates the left common femoral, deep femoral, superficial femoral, popliteal and greater saphenous and the contralateral right common femoral veins to be fully compressible with normal color Doppler blood flow. IMPRESSION: Acute short-segment deep venous thrombosis in 1 of 2 paired peroneal veins proximally in the calf. Findings called to and discussed with Dr. Hillman for Dr. Carlos Barrios in the ER at 15:00 Dictated by Phil Flaherty MD @ 11/11/2024 3:02:52 PM (Electronically Signed)
[2024-11-11 14:53] VITALS: BP 162/96; PULSE 83; RESP 18; TEMP 36.5; O2SAT 95
== END 2024-11-11 16:03 | disposition home or self-care (01) ==
PROVIDERS: Emergency Provider Emergency Medicine; PCP Family Medicine
DX: I82.402 Acute embolism and thrombosis of unspecified deep veins of left lower extremity (principal)
CPT/HCPCS: 73630; 93971; 99283; 99284

== ENCOUNTER 2024-11-16 12:52 | Emergency (ER) | payer MEDICARE, SELFPAY ==
--- OUTSIDE RECORDS SUMMARY | 2024-11-16 12:54 | XMS_ITS | Clinical Summary ---
Author Organization [employer] [facility] Address [place], [place] [address] Care Team Providers Care Oil Laboratory Analyst Name Role Phone Eloise Reeves DO Primary Care Provider [phone] Allergies Active Allergy Reactions Criticality Noted Date Comments Adhesive Tape-Silicones Rash 12/31/2019 Morphine Rash 12/31/2019 Topiramate Hallucinations 06/01/2020 Medications cyanocobalamin (Vitamin B-12) 1,000 mcg tabletIndications: B12 deficiency Take 1 Tablet (1,000 mcg) by mouth once daily. 90 Tablet 3 12/18/19 24 Active ferrous sulfate, 65 mg elemental, tabletIndications: Anemia due to acute blood loss Take 1 Tablet (325 mg) by mouth once daily with a meal. 90 Tablet 3 12/18/19 24 Active rosuvastatin (CRESTOR) 20 mg tabletIndications: Hyperlipidemia, unspecified hyperlipidemia type Take 1 Tablet (20 mg) by mouth at bedtime. 90 Tablet 3 12/28/19 24 Active blood-glucose meterIndications:C ontrolled type 2 diabetes mellitus without complication, without long-term current use of insulin (HC) Dispense meter, test strips, lancets covered by pt ins. E11.9 NIDDM type II - Test 2 times/day. Reason: high A1C 1 Kit 03/25/20 24 Active amLODIPine (NORVASC) 5 mg tabletIndications: HTN (hypertension) Take 1 Tablet (5 mg) by mouth once daily. 90 Tablet 3 04/15/20 24 Active docusate (COLACE) 100 mg capsuleIndications :Chronic constipation Take 1 Capsule (100 mg) by mouth once daily. 90 Capsule 3 04/15/20 24 Active allopurinoL (ZYLOPRIM) 100 mg tabletIndications: Gout of left foot, unspecified cause, unspecified chronicity TAKE 1/2 TABLET(50 MG) BY MOUTH DAILY 45 Tablet 1 06/09/20 24 Active venlafaxine (EFFEXOR XR) 75 mg cp24 Extended-Release capsuleIndications :Depression, recurrent (HC),Anxiety Take 3 Capsules (225 mg) by mouth once daily with a meal. 270 Capsule 3 07/23/20 24 Active diclofenac topical (VOLTAREN) 1 % gelIndications:Chr onic pain of left knee Apply 4 g topically to affected area(s) four times daily. 450 g 08/05/20 24 Active lancets (Accu-Chek Softclix Lancets)Indication s:Controlled type 2 diabetes mellitus without complication, without long-term current use of insulin (HC) TEST TWICE DAILY 200 Each 3 09/11/20 24 Active blood sugar diagnostic (Accu-Chek Guide test strips) stripIndications:C ontrolled type 2 diabetes mellitus without complication, without long-term current use of insulin (HC) TEST TWICE DAILY 200 Each 3 09/11/20 24 Active losartan (COZAAR) 100 mg tabletIndications: HTN (hypertension) Take 1 Tablet (100 mg) by mouth once daily. 90 Tablet 09/18/20 24 Active metoprolol succinate (TOPROL XL) 50 mg sustained-release tabletIndications: HTN (hypertension) Take 1 Tablet (50 mg) by mouth once daily. 90 Tablet 3 10/02/20 24 Active metFORMIN (GLUCOPHAGE XR) 500 mg Extended-Release tabletIndications: Uncontrolled type 2 diabetes mellitus with hyperglycemia (HC) 3 tablets daily x 1 week then INCREASE to 4 tablets daily 360 Tablet 3 10/02/20 24 Active Additional Information Patient taking differently: 500 mg Oral DAILY, 2 tablets daily, Reported on 11/14/2024 Graduated Compression StockingsIndicatio ns:Bilateral lower extremity edema For personal use. Length: calf Strength: 16-20 mmHg Circumference in cm: For calf: Ankle 23cm, Calf 36cm, Ankle to calf length 19cm. 1 Packet 10/15/20 24 Active polyethylene glycol-electrolyte (GOLYTELY) 236-22.74-6.74 -5.86 gram suspensionIndicati ons:Encounter for screening colonoscopy Drink 2 liters (half the bottle) the day before colonoscopy and 2 liters (remaining prep) 6 hours prior to colonoscopy appointment. 4000 mL 10/15/20 Active Eliquis DVT-PE Treat 30D Start tablet in a dose pack 11/12/19 Active Active Problems Problem Noted Date Diagnosed Date MCI (mild cognitive impairment) 01/17/2024 Overview (01/17/2024): SLUMS 202012/18/23 SLUMS 01/17/24 = OTeval 01/14/24 MOCA . Complete evaluation pending Congestive heart failure, un specified HF chronicity, unspecified heart failure type 01/17/2024 Anemia of unknown etiology 11/06/2022 Overview (11/06/2022): Anemia: had guaiac positive stools in ER. had EGD and colonoscopy 04/25/22. pathology report is available and showed negative stomach and duodenum biopsies. 4 colon polyps which came back as tubular adenomas--at least one of which is consistent with an advanced adenoma. Discharge Hemoglobin from hospital on 03/24/22 = 8.4, Hemoglobin 03/28/22 = 9.6 Is on proton pump inhibitor and iron No reflux. Hgb 05/08/22 = 9.5 Hgb 06/09/22 = 10.9 Hemoglobin 07/12/22 = 11.0 As of Oct 2022: No gastroesophogeal reflux disease. Is taking iron. No bloody stools. Hgb 10/31/22 = 10.1 CBC Hemoglobin 10/31/22=10.6 Ferritin borderline. Iron studies high. Peripheral smear 'Mild normocytic anemia, cannot exclude a component of iron deficiency anemia' Plan to monitor for now on iron. Paroxysmal SVT (supraventricular tachycardia) Depression, recurrent 11/01/2021 Uncontrolled type 2 diabetes mellitus with hyper glycemia 11/01/2021 Osteopenia 06/01/2020 Overview (06/01/2020): 2017 per medical records scanned Colon polyps 05/25/2020 Overview (05/25/2020): 08/2019: 2 adenoma's and [address] 05/19/2020 Overview (05/19/2020): Saw oncology 04/2010, repeat CT 3 months Hypertension 10/20/2014 Hyperlipidemia 10/20/2014 Osteoarthritis of left knee 10/20/2014 Diabetes type 2, controlled 10/20/2014 Depression 10/20/2014 Symptomatic PVCs 10/20/2014 Breast cancer, left Overview (11/01/2021): in [place], had mastectomy. No chemo or radiation Encounters Date Type Department Care Team Description 11/14/2024 10:10 AM MANAGER MUTUAL FUND Office Visit [facility] [address] [place] [address] Ana María Gonzalez DO ER Follow up (11/11/24 - DVT, started Eliquis and vomited ) 11/14/2024 Travel 11/14/2024 Nurse Triage [facility] [address] [place] [address] Eloise Reeves DO Vomiting 11/11/2024 Orders Only [facility] Scanner 1 scan: (1-Ord) [facility], 11/11/2024 11/11/2024 Orders Only [facility] Scanner 1 scan: (1-Ord) [facility], FOOT LT MIN 3VIEWS, 11/11/2024 11/11/2024 Nurse Triage [facility] [address] [place] [address] Eloise Reeves DO Foot Pain/problem 11/11/2024 Telephone [facility] [address] [place] [address] Eloise Reeves DO Error-please disregard (error) 11/05/2024 Travel 11/05/2024 Nurse Triage [facility] [address] [place] [address] Eloise Reeves DO Cough 10/31/2024 Telephone [facility] [address] [place] [address] Hussain Deras MD 10/30/2024 1:00 PM MANAGER MUTUAL FUND Office Visit [facility] [address] Hussain Deras MD Sleep Follow-up 10/30/2024 Travel 10/24/2024 9:40 AM MANAGER MUTUAL FUND Ancillary Procedure [facility] [place] [address] 10/24/2024 Travel 10/15/2024 10:00 AM MANAGER MUTUAL [employer]D Office Visit [facility] [place] [address] Eloise Reeves, DO Follow Up (Medications ) 10/15/2024 Telephone [facility] [address] [place] [address] García Driscoll MD Pre Procedure 10/15/2024 Travel 10/03/2024 Telephone [place] [address] [place] [address] Eloise Reeves DO Refill Request (CARVEDILOL) 10/02/2024 10:00 AM MANAGER MUTUAL FUND Office Visit [facility] [facility] [address] Eloise Reeves, Medication Management 10/02/2024 Travel 09/18/2024 10:25 AM MANAGER MUTUAL FUND Office [facility] [place] [address] Eloise Reeves, DO Follow Up 09/18/2024 Travel 09/08/[address] [place] [address] Eloise Reeves DO Refill Request (Accu-chek Softclix Lancets, Accu-chek Guide Test Strips) 09/03/2024 11:15 AM MANAGER MUTUAL FUND Office [facility] [address] Eloise Reeves, DO Follow Up 09/03/2024 Travel from Last 3 Months Immunizations Name [...] PHQ-2 Answer Date Recorded PHQ-2 TOTAL SCORE 5 07/23/2024 Social Connections Answer Date Recorded Do you often feel lonely or isolated from those around you? 0 10/02/2024 Alcohol Use Answer Date Recorded How often do you have a drink containing alcohol ? 3 05/03/2022 How many drinks containing a lcohol do you have on a typical day when you are drinking? 0 05/03/2022 How often do you have five or more drinks on one occasion? 0 05/03/2022 Financial Resource Strain Answer Date R ecorded Difficulty of Paying Living Expenses 3 10/02/2024 Difficulty of Paying Living Expenses Not on file 10/02/2024 Food Insecurity Answer Date Recorded Do you worry your food will run out before you are able to buy more? 1 10/02/2024 Transportation Needs Answer Date Record ed Does lack of transportation keep you from medica l appointments? 1 10/02/2024 Does lack of transportation keep you from work, meetings or getting things that you need? 1 10/02/2024 Housing Stability Answer Date Recorded What is your housing situation today? 1 10/02/2024 Utilities Answer Date Recorded Do you have trouble paying f or utilities (for example, heat, electricity, water, phone)? 1 10/02/2024 Comments No Sex and Gender Information Value Date Recorded Sex Assigned at Not on file Legal Sex Female 10:30 AM MANAGER MUTUAL FUND Gender Identity Not on file Sexual Orientation Not on file Occupation Industry Job Start Date Job End Date retired Not on file Not on file Not on file Obstetrics History Para Term AB IAB SAB Ectopic Multiple Livin g Live Births 3 2 2 1 Date Outcome GA Total Labor Labor/2nd/3rd Weight Sex Type Anes PTL Jessica A1 A5 Name Clin SAB SAB Last Filed Vital Signs Vital Sign Reading Time Taken Comments Blood Pressure 121/61 11/14/2024 10:21 AM MANAGER MUTUAL FUND Pulse 73 11/14/2024 10:21 AM MANAGER MUTUAL [employer]D Temperature 37.1 C (98.8 F) 04/04/2022 12:51 PM CDT Respiratory Rate 16 08/22/2022 9:54 AM CDT Oxygen Saturation 95% 11/14/2024 10:21 AM MANAGER MUTUAL FUND Inhaled Oxygen Concentration - - Weight 66.3 kg (146 lb 1.6 oz) 11/14/2024 10:21 AM MANAGER MUTUAL [employer]D Height 142.8 cm (4' 8.22) 10/30/2024 1:08 PM CS T Body Mass Index 32.5 10/30/2024 1:08 PM MANAGER MUTUAL [employer]D Plan of Treatment Upcoming Encounters Date Type Department Care Team (Late st Contact Info) Description 11/19/2024 11:40 AM MANAGER MUTUAL FUND Office Visit [facility] [address] [place] [address] Eloise Reeves DO [address] [place] [address] 12/17/2024 10:25 AM MANAGER MUTUAL FUND Office Visit [facility] [address] [place] [address] Eloise Reeves DO [address] [place] [address] 12/22/2024 9:00 AM MANAGER MUTUAL [employer]D Office Visit [facility] [address] [place] [address] Hussain Deras MD [address] [place] [address] 12/26/2024 10:45 AM MANAGER MUTUAL FUND Office Visit [facility] at [address] [phone] García Driscoll MD [address] [place] [address] Health Maintenance Due Date Last Done Comments Tdap 1951 Tetanus booster 1962 Zoster (shingles) series for age 50+ (2 of 3) 12/24/2009 10/29/2009 RSV vaccine for adults or (1 - 1-dose 75+ series) 2017 Medicare Wellness for age 65+ 01/28/2022 01/27/2021 COVID-19 vaccine series ( - season) 2024 Influenza for age 65+ 06/29/2024 Depression screening for age 12+ 07/24/2025 07/24/2024, 07/23/2024, 11/02/2023, Additional history exists BMI (ht and wt on same day) for age 18+ 10/30/2025 10/30/2024, 01/02/2023, 08/22/2022, Additional history exists Pneumococcal series for age 50+ Completed 5, 11/23/2007 DEXA/DXA scan for age 65+ Completed 02/03/2021 Procedures Procedure Name Priority Date/Time Associated Diagnosis Comments SCAN-ULTRASOUND REPORT 11/11/2024 12:00 AM MANAGER MUTUAL FUND SCAN-RADIOLOGY REPORT 11/11/2024 12:00 AM MANAGER MUTUAL FUND XR MAMMO TAYLOR UNI SCREEN RIGHT Routine 10/24/2024 9:55 AM MANAGER MUTUAL FUND Visit for screening mammogram XR DXA BONE DENSITY 2 SITES AXIAL Routine 02/03/2021 9:40 AM CDT Osteoporosis screening Decreased body height Asymptomatic menopausal state from Last 3 Months or Most Recently Relevant to Health Maintenance Results * SCAN-RADIOLOGY REPORT (11/11/2024 12:00 AM MANAGER MUTUAL FUND) Anatomical Region Laterality Modality Other us Scanner OTHER Final Result * SCAN-ULTRASOUND REPORT (11/11/2024 12:00 AM MANAGER MUTUAL FUND) Anatomical Region Laterality Modality Other us Scanner OTHER Final Result * XR MAMMO TAYLOR UNI SCREEN RIGHT (10/24/2024 9:55 AM MANAGER MUTUAL FUND) Anatomical Region Laterality Modality BREASTS, Breast Right Right Mammograph y Impressions 10/24/2024 4:01 PM MANAGER MUTUAL FUND There is no radiographic evidence for malignancy. Recommend annual mammograms. MAMMOGRAM ASSESSMENT: ACR 1 Negative PATIENTS: You will also receive a letter with your examination results in an easy to read format. If you have questions about your results, please contact your referring provider. Narrative 10/24/2024 4:01 PM MANAGER MUTUAL FUND For Patients: As a result of the Century Cures Act, medical imaging exams and procedure reports are released immediately into your electronic medical record. You may view this report before your referring provider. If you have questions, please contact your health care provider. XR MAMMO TAYLOR UNI SCREEN RIGHT [[id number]] CLINICAL HISTORY: This is an asymptomatic 84 y.o. patient. INDICATION FOR EXAM: Mammogram Screening. TECHNIQUE: CC & MLO views were obtained. This study was evaluated with the assistance of Computer-Aided Detection. Breast Tomosynthesis was used in interpretation. COMPARISON FILM: Yes 11/03/22 Cynny 06/22/20 [facility] [facility] FINDINGS: There are scattered areas of fibroglandular density. There are no dominant masses, suspicious micro calcifications or areas of architectural distortion. Eloise Reeves DO MAMMO Final Resu lt * XR DXA BONE DENSITY 2 SITES [...] recommended in 3-5 years. Elham Lugo PA-C [facility] 02/08/2021 Narrative 02/08/2021 12:36 PM CDT XR DXA Bone Mineral Density (BMD) EXAM LOCATION: [facility] [address] [facility] [address] PATIENT NAME: Lucinda Chavez DATE OF : 1940 EXAM DATE: 02/03/2021 REQUESTING PROVIDER: Eloise Reeves DO GENDER AT : female HEIGHT: 4' 9.48 (01/27/2021) WEIGHT: 154 lb (01/27/2021) MENOPAUSAL STATUS: Postmenopausal RACE/ETHNICITY: White [...] two scanners are made by the same outpatient physical therapist assistant. PROCEDURE: Dual-energy x-ray absorptiometry performed with routine [...] below -2.5 SD Eloise Reeves DO DEXA Final Resu lt from Last 3 Months or Most Recently Relevant to Health Maintenance Insurance MEDICARE PART A HB ONLY [facility] MR/MSHO Advance Directives Documents on File Type Date Recorded Patient Manager Resource Expl anation Healthcare Directive 11/23/2023 024 Care Teams Oil Laboratory Analyst Relationship Specialty Start Date End Date Eloise [place]eves [place] [address] PCP - General Family Practice 05/13/20
[2024-11-16 13:06] VITALS: BP 143/69; PULSE 70; RESP 16; TEMP 36.4; O2SAT 99; BMI 32.2
--- NOTE | 2024-11-16 13:21 | CRLHL7_ITS ---
For Patients: As a result of the Century Cures Act, medical imaging exams and procedure reports are released immediately into your electronic medical record. You may view this report before your referring provider. If you have questions, please contact your health care provider. INDICATION: Episode of worse pain known DVT Comparison ultrasound 11/11/24 TECHNIQUE: A compression venous ultrasound exam was performed of the left lower extremity using nicole-scale imaging, color Doppler and spectral Doppler analysis. FINDINGS: Sonographic imaging of the left lower extremity demonstrates normal compressibility and color Doppler venous blood flow within the common femoral vein, deep femoral vein, and the proximal greater saphenous vein. Within the thigh, the femoral vein is patent and compressible. At a lower level, the popliteal and posterior tibial veins also show normal compressibility and color Doppler venous blood flow. Short-segment nonocclusive clot in one of the peroneal veins proximal segment which is not significantly changed. Limited imaging of the contralateral groin demonstrates a normal spectral waveform and color Doppler venous blood flow within the right common femoral vein. IMPRESSION: No significant change in short segment nonocclusive thrombus in one of proximal peroneal veins. Dictated by Rubi Hernandez MD @ 11/16/2024 2:59:41 PM (Electronically Signed)
--- NOTE | 2024-11-16 13:54 | ED_ITS ---
HPI - General Adult General Date Seen: 11/16/24 Chief complaint: Extremity Pain/Injury, Lower Stated complaint: Prev blood clot, experiencing same symptoms Time Seen by Provider: 11/16/24 12:55 Source: patient Mode of arrival: ambulatory Limitations: no limitations History of Present Illness HPI narrative: Patient is an 84-year-old female who was diagnosed with a blood clot 5 days ago presenting to the emergency department for left leg pain. She states this morning she had an episode of a cramping sensation on her left leg just distal to the medial aspect of the knee. States there was pain for short amount of time but has since fully resolved. She is currently pain-free. She is currently on Eliquis. This is her 1st blood clot. Denies chest pain or shortness of breath. Denies numbness, weakness, headache, vision changes, abdominal pain. She states she is otherwise feeling fine. Related Data Home Medications ?Medication ?Instructions ?Recorded ?Confirmed amlodipine 2.5 mg tablet 5 mg PO DAILY 03/20/23 11/16/24 carvedilol 12.5 mg tablet 6.25 mg PO BID 03/20/23 11/16/24 chlorthalidone 25 mg tablet 25 mg PO DAILY 03/20/23 11/16/24 cyanocobalamin (vitamin B-12) 1,000 mcg PO DAILY 03/20/23 11/16/24 1,000 mcg tablet ferrous sulfate 325 mg (65 mg 325 mg PO BID 03/20/23 11/16/24 iron) tablet (FeroSul) losartan 100 mg tablet 100 mg PO DAILY 03/20/23 11/16/24 metformin 1,000 mg tablet 1,000 mg PO BID 03/20/23 11/16/24 omeprazole 20 mg capsule,delayed 20 mg PO BID 03/20/23 11/16/24 release rosuvastatin 10 mg tablet 10 mg PO QPM 03/20/23 11/16/24 venlafaxine 150 mg 50 mg PO DAILY 03/20/23 11/16/24 capsule,extended release 24 hr venlafaxine 75 mg capsule,extended 50 mg PO DAILY 03/20/23 11/16/24 release 24 hr allopurinol 100 mg tablet 50 mg PO DAILY 12/12/23 11/16/24 divalproex 250 mg tablet,delayed 250 mg PO QHS 12/12/23 11/16/24 release (Depakote) lorazepam 0.5 mg tablet (Ativan) 0.5 mg PO TID PRN 12/12/23 11/16/24 losartan 25 mg tablet 25 mg PO DAILY 12/12/23 11/16/24 melatonin 3 mg capsule 3 mg PO QHS 12/12/23 11/16/24 potassium chloride 20 mEq 20 meq PO BID 12/12/23 11/16/24 tablet,extended release(part/cryst) rosuvastatin 20 mg tablet 20 mg PO QPM 12/12/23 11/16/24 sennosides 8.6 mg-docusate sodium 1 tab-cap PO BID 12/12/23 11/16/24 50 mg tablet (Senna-S) Previous Rx's ?Medication ?Instructions ?Recorded benzonatate 100 mg capsule 100 mg PO BID-TID PRN cough #20 08/17/23 caps donepezil 5 mg tablet (Aricept) 5 mg PO QHS #14 tabs 12/12/23 gabapentin 100 mg capsule 100 mg PO QHS #14 caps 12/12/23 apixaban 5 mg (74 tabs) tablets in See Rx Instructions PO .COMPLEX 11/11/24 a dose pack (Eliquimo.im DVT-PE Treat #74 ea 30D Start) Allergies Allergy/AdvReac Type Severity Reaction Status Date / Time latex Allergy Verified 11/16/24 13:06 morphine Allergy Rash Verified 11/16/24 13:06 silicone Allergy Rash Verified 11/16/24 13:06 topiramate (From Topamax) Allergy Hallucinati Verified 11/16/24 13:06 ng surgical tape Allergy Uncoded 09/05/23 08:49 Review of Systems Status of ROS: Reports: 10 or more systems reviewed and unremarkable except as noted in History and below [facility] Medical History Health care directive on file ?Z78.9 - Other specified health status (ICD-10) Social History Smoking Status: Never smoker Do you use any of these nicotine containing products: None How often do you have a drink containing alcohol: monthly or less AUDIT-C Alcohol total score: 1 Non-prescribed substance use: denies use service: No Exam Narrative: Exam Narrative: Const: Well-nourished, Well-developed, in no distress Eyes: PERRL, no conjunctival injection, and symmetrical lids HENT: Atraumatic external nose and ears. Moist mucous membranes. Neck: Symmetric, trachea midline, No thyromegaly. CVS: RRR, No murmurs or gallops. Peripheral pulses 2+ and equal in all extremities RESP: Unlabored respiratory effort. Clear to auscultation bilaterally. GI: Nontender/Nondistended, No rebound or guarding. MSK:Extremities w/o deformity, Normal Active ROM, no lower extremity tenderness or swelling Skin: Warm, Dry. No rashes or lesions. Neuro: Normal Muscle tone, No focal neurological deficits. Psych: Awake, Alert, & Oriented x3. Appropriate mood and affect. Const: Vital Signs, click to edit/add: Vital Signs - 24 hr 11/16/24 13:06 Temperature 97.6 F Pulse Rate [Pulse Oximeter] 70 Respiratory Rate 16 Blood Pressure [Ri ght Upper Arm] 143/69 H Pulse Oximetry 99 Oxygen Delivery Me thod Room Air Course Vital Signs Vital signs: Initial Vital Signs Temperature 97.6 F 11/16/24 13:06 Temperature Source Temporal Artery Scan 11/16/24 13:06 Pulse Rate 70 11/16/24 13:06 Respiratory Rate 16 11/16/24 13:06 Blood Pressure 143/69 H 11/16/24 13:06 Blood Pressure Mean 93 11/16/24 13:06 Pulse Oximetry 99 11/16/24 13:06 Oxygen Delivery Method Room Air 11/16/24 13:06 Vital Signs Temperature 97.6 F 11/16/24 13:06 Pulse Rate 70 11/16/24 13:06 Respiratory Rate 16 11/16/24 13:06 Blood Pressure 143/69 H 11/16/24 13:06 Pulse Oximetry 99 11/16/24 13:06 Oxygen Delivery Method Room Air 11/16/24 13:06 Temperature 97.6 F 11/16/24 13:06 Pulse Rate 70 11/16/24 13:06 Respiratory Rate 16 11/16/24 13:06 Blood Pressure 143/69 H 11/16/24 13:06 Pulse Oximetry 99 11/16/24 13:06 Oxygen Delivery Method Room Air 11/16/24 13:06 Medical Decision Making MDM Narrative Medical decision making narrative: Patient is an 89-year-old female with a known blood clot presenting for left leg pain that has since resolved. She is already on blood thinners. Will do an ultrasound to make sure the blood clot is not getting bigger. The ultrasound shows no patient's changes in the blood clot. she continues to be asymptomatic. will discharge her. She is agreeable to this plan. Imaging Data Venous US: Radiologist's impression: No significant change in short segment nonocclusive thrombus in one of proximal peroneal veins. Dictated by Rubi Hernandez MD @ 11/16/2024 2:59:41 PM Discharge Plan Discharge Clinical Impression: DVT of leg (deep venous thrombosis) Patient Disposition: Home, Self-Care Condition: Stable Instructions: Deep Vein Thrombosis (ED) Additional Instructions: Continue your home Eliquis prescription. Return for new or worsening symptoms. Prescriptions: No Action benzonatate 100 mg capsule 100 mg PO BID-TID PRN (Reason: cough) Qty: 20 0RF potassium chloride 20 mEq tablet,ER particles/crystals 20 meq PO BID losartan 25 mg tablet 25 mg PO DAILY melatonin 3 mg capsule 3 mg PO QHS allopurinol 100 mg tablet 50 mg PO DAILY rosuvastatin 20 mg tablet 20 mg PO QPM divalproex [Depakote] 250 mg tablet,delayed release (DR/EC) 250 mg PO QHS lorazepam [Ativan] 0.5 mg tablet 0.5 mg PO TID PRN sennosides-docusate sodium [Senna-S] 8.6-50 mg tablet 1 tab-cap PO BID donepezil [Aricept] 5 mg tablet 5 mg PO QHS Qty: 14 2RF gabapentin 100 mg capsule 100 mg PO QHS Qty: 14 2RF venlafaxine 75 mg capsule,extended release 24hr 50 mg PO DAILY carvedilol 12.5 mg tablet 6.25 mg PO BID venlafaxine 150 mg capsule,extended release 24hr 50 mg PO DAILY cyanocobalamin (vitamin B-12) 1,000 mcg tablet 1,000 mcg PO DAILY amlodipine 2.5 mg tablet 5 mg PO DAILY chlorthalidone 25 mg tablet 25 mg PO DAILY ferrous sulfate [FeroSul] 325 mg (65 mg iron) tablet 325 mg PO BID metformin 1,000 mg tablet 1,000 mg PO BID omeprazole 20 mg capsule,delayed release(DR/EC) 20 mg PO BID losartan 100 mg tablet 100 mg PO DAILY rosuvastatin 10 mg tablet 10 mg PO QPM Eliquis DVT-PE Treat 30D Start 5 mg (74 tabs) tablets,dose pack See Rx Instructions .ROUTE .COMPLEX Qty: 74 0RF Rx Instructions: orally per package directions Follow Up/Referrals: Eloise Reeves DO [Primary Care Provider] - Stand Alone Forms: MyHealth Info Instructions
== END 2024-11-16 15:13 | disposition home or self-care (01) ==
PROVIDERS: Emergency Provider Student in an Organized Health Care Education/Training Program; PCP Family Medicine
DX: I82.452 Acute embolism and thrombosis of left peroneal vein (principal)
CPT/HCPCS: 93971; 99282; 99283

== ENCOUNTER 2024-12-26 09:43 | Outpatient (CLI) | payer MEDICARE, SELFPAY ==
--- NOTE | 2024-12-26 12:08 | W.ANESCHARGE ---
Anesthesia Charges Start Date/Time Anesthesia Start Date: 12/26/24 Anesthesia Start Time: 11:26 Stop Date/Time Anesthesia Stop Date: 12/26/24 Anesthesia Stop Time: 12:12 Summary Extremes of Age - Over 70 or under 1: MDA Coding CPT Codes CPT Codes: ANES UPR LWR GI NDSC PX - 01135 ([id number]) QK - [employer] OPERATOR 2-4 CNCRNT ANES PROC, QX - MEDICAL RECORD TECHNICIAN SVC W/ MD MED DIRECTION, P3 - PATIENT W/SEVERE SYS DISEASE Additional Codes: Summary - Extremes of Age - Over 70 or under 1: MDA ([id number])
--- NOTE | 2024-12-26 12:14 | W.ANESCHARGE ---
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
== END 2024-12-26 09:44 | disposition home or self-care (01) ==
LOC: OP CLINIC 09:44
PROVIDERS: PCP Family Medicine; Visit Provider Internal Medicine Gastroenterology
DX: D50.9 Iron deficiency anemia, unspecified (principal); K57.30 Diverticulosis of large intestine without perforation or abscess without bleeding; Z86.0100 Personal history of colon polyps, unspecified
CPT/HCPCS: 00813; 43239; 45378; 88305; 99100; J2704